=== PATIENT | female | born 1970 | race African-American/Black ===

== ENCOUNTER 2016-09-06 20:22 | Inpatient (IN) | payer MEDICAID ==
[~2016-09-06] VITALS: Ht 157.5 cm; Wt 68.0 kg
[~2016-09-06 20:22] MED LIST: ATOR1TAB18 PO; DILA100C PO; GABA300C5 PO; LANTUS2P SQ; LEVE500 PO; NOVOLOGP2 SQ; OMEP20TA PO; VALS1TAB65 PO
[2016-09-06 20:33] VITALS: BP 156/92; PULSE 90; RESP 16; O2SAT 98
[2016-09-06] MEDS ORDERED: SODIUM CHLORIDE 0.9% FLUSH 10 ML FLUSH IVF PRN (20:45)
--- NOTE | 2016-09-06 21:16 | RADRPT ---
EXAM DATE/TIME: 09/06/2016 21:07 [facility] COMPARISON: CHEST SINGLE AP, January 22, 2016, 12:47. INDICATIONS : Syncopal episode today. MEDICAL HISTORY : Hypertension. Seizures. SURGICAL HISTORY : Hysterectomy. ENCOUNTER: Initial ACUITY: 1 day PAIN SCORE: Non-responsive. LOCATION: Bilateral chest FINDINGS: A single view of the chest demonstrates the lungs to be symmetrically aerated without evidence of mas s, infiltrate or effusion. The cardiomediastinal contours are unremarkable. Osseous structures are intact.CONCLUSION: No acute disease. Villa Calderon MD on September 06, 2016 at 21:14 Board Certified Radiologist. This report was verified electronically.
--- NOTE | 2016-09-06 21:56 | RADRPT ---
EXAM DATE/TIME: 09/06/2016 21:48 [facility] COMPARISON: CT BRAIN W/O CONTRAST, May 24, 2016, 11:35. INDICATIONS : Altered mental status. RADIATION DOSE: 36.93 CTDIvol (mGy) MEDICAL HISTORY : Cerebrovascular disease. Hypertension. Seizures.Renal failure SURGICAL HISTORY : Cholecystectomy. Hysterectomy. ENCOUNTER: Initial ACUITY: 1 day PAIN SCALE: 0/10 LOCATION: cranial TECHNIQUE: Multiple contiguous axial images were obtained of the head. Using automated exposure control and adj ustment of the mA and/or kV according to patient size, radiation dose was kept as low as reasonably a chievable to obtain optimal diagnostic quality images. FINDINGS: CEREBRUM: The ventricles are normal for age. No evidence of midline shift, mass lesion, hemorrhage or acute in farction. No extra-axial fluid collections are seen. POSTERIOR FOSSA: The cerebellum and brainstem are intact. The 4th ventricle is midline. The cerebellopontine angle i s unremarkable. EXTRACRANIAL: The visualized portion of the orbits is intact. SKULL: The calvaria is intact. No evidence of skull fracture. CONCLUSION: No acute disease. Villa Calderon MD on September 06, 2016 at 21:53 Board Certified Radiologist. This report was verified electronically.
--- NOTE | 2016-09-06 22:10 | PD ---
HPI Chief Complaint: Diabetic Time Seen by Provider: 20:41 Travel History International Travel<30 days: No Contact w/Intl Traveler<30days: No Traveled to known affect area: No History of Present Illness HPI Patient is a 46-year-old female brought in by EMS after possible syncopal episode. Per EMS she had used the bathroom and then her family saw her lower herself to the ground. When the fire department arrived, her glucose was 16. She was given D50 through an IO. EMS then gave her D10. She has been here before for similar episodes. She is a poor historian and cannot provide much history. She says she ate breakfast today and nothing else. She does take Lantus and regular insulin. She says she did not have a seizure. She is not able to tell me if she is taking her other medications. She is only complaining of feeling cold. PFSH Past Medical History Arthritis: Yes Asthma: Yes Autoimmune Disease: Yes (LUPUS) Blood Disorders: Yes Anxiety: No Depression: No Cancer: No Cardiovascular Problems: Yes High Cholesterol: Yes Congestive Heart Failure: No Cerebrovascular Accident: Yes (MAY 2013) Diabetes: Yes Patient Takes Glucophage: Yes Diminished Hearing: No Endocrine: Yes Gastrointestinal Disorders: Yes Genitourinary: Yes Hypertension: Yes Immune Disorder: Yes Kidney Stones: Yes Musculoskeletal: Yes Neurologic: Yes Psychiatric: No Reproductive: No Respiratory: No Renal Failure: Yes (Stage II) Seizures: Yes Sickle Cell Disease: No Thyroid Disease: No Tetanus Vaccination: < 5 Years Influenza Vaccination: Yes ?: Unknown : 1 Para: 1 Past Surgical History Abdominal Surgery: Yes Cardiac Surgery: No Section: Yes Cholecystectomy: Yes Ear Surgery: No Endocrine Surgery: No Eye Surgery: No Genitourinary Surgery: No Gynecologic Surgery: Yes ( ) Hysterectomy: Yes Oral Surgery: No Thoracic Surgery: No Other Surgery: Yes (LEFT FOOT WOUND MECHANICAL DEBRIDEMENT) Social History Alcohol Use: Yes (OCCASIONAL/HOLIDAYS) Tobacco Use: No Substance Use: No Allergies-Medications (Allergen,Severity, Reaction): Coded Allergies: Aspirin (Verified Allergy, Severe, 09/06/16) RASH Keflex (Verified Allergy, Severe, foaming mouth, 09/06/16) Levemir (Verified Allergy, Severe, Sweats, funny feeling, mood swings, daze, 09/06/16) Penicillin (Verified Allergy, Severe, 09/06/16) Sulfa (Verified Allergy, Severe, 09/06/16) RASH Adhesives (Verified Allergy, Unknown, 09/06/16) Macrobid (Unverified Allergy, Unknown, 09/06/16) *MDRO Multi-Drug Resistant Organism (Unverified Adverse Reaction, Unknown , 09/06/16) MRSA 2013 MRSA PCR Screen negative 03/06/15, but POSITIVE on 01/22/16 Reported Meds & Prescriptions Reported Meds & Active Scripts Active Keppra (Levetiracetam) 500 Mg Tab 1,250 Mg PO Q12HR 30 Days Dilantin (Phenytoin Extended) 100 Mg Cap 100 Mg PO TID Reported Atorvastatin (Atorvastatin Calcium) 80 Mg Tab 80 Mg PO DAILY Gabapentin 300 Mg Cap 300 Mg PO BID Novolog Inj (Insulin Aspart) 1,000 Unit/10 Ml Vial Unknown Dose SQ ACHS03 SLIDE SCALE Lantus Inj (Insulin Glargine) 1,000 Unit/10 Ml Vial Unknown Dose SQ DAILY Valsartan 160 Mg Tab 160 Mg PO DAILY Omeprazole 20 Mg Tab 20 Mg PO DAILY Review of Systems ROS Limitations: Altered Mental Status General / Constitutional: Positive: Chills Physical Exam Narrative GENERAL: Awake and alert, but confused. SKIN: Focused skin assessment warm/dry. HEAD: Atraumatic. Normocephalic. EYES: Pupils equal and round. No scleral icterus. Extraocular movements intact. ENT: No nasal bleeding or discharge. Mucous membranes pink and moist. NECK: Trachea midline. No JVD. CARDIOVASCULAR: Regular rate and rhythm. No murmur appreciated. RESPIRATORY: No accessory muscle use. Clear to auscultation. Breath sounds equal bilaterally. GASTROINTESTINAL: Abdomen soft, non-tender, nondistended. MUSCULOSKELETAL: No obvious deformities. No clubbing. No cyanosis. No edema. NEUROLOGICAL: Awake and alert, but seems confused. She knows who she is and where she is. No obvious cranial nerve deficits. Motor grossly within normal limits. Normal speech. Data Data Last Documented VS Vital Signs Date Time Temp Pulse Resp B/P Pulse Ox O2 Delivery O2 Flow Rate FiO2 09/07/16 01:47 95.5 81 18 123/84 97 Room Air Orders Electrocardiogram (09/06/16 20:43) Complete Blood Count With Diff (09/06/16 20:43) Comprehensive Metabolic Panel (09/06/16 20:43) Creatine Kinase (Cpk) (09/06/16 20:43) Prothrombin Time / Inr (Pt) (09/06/16 20:43) Act Partial Throm Time (Ptt) (09/06/16 20:43) Troponin I (09/06/16 20:43) Urinalysis - C+S If Indicated (09/06/16 20:43) Ua Includes Microscopic (09/06/16 20:43) Chest, Single Ap (09/06/16 20:43) Ct Brain W/O Iv Contrast(Rout) (09/06/16 20:43) Blood Glucose (09/06/16 20:43) Ecg Monitoring (09/06/16 20:43) Iv Access Insert/Monitor (09/06/16 20:43) Oximetry (09/06/16 20:43) Sodium Chloride 0.9% Flush (Ns Flush) (09/06/16 20:45) Phenytoin (Dilantin) (09/06/16 20:43) Urine Culture (09/06/16 21:35) CKMB (09/06/16 22:50) CKMB% (09/06/16 22:50) Phenytoin Inj (Dilantin Inj) (09/06/16 23:45) Bedside Glucose GERMÁN.AC&HS (09/07/16 00:39) Pantoprazole Inj (Protonix Inj) (09/07/16 00:45) Pantoprazole Inj (Protonix Inj) (09/07/16 00:45) Levofloxacin 750 Mg Premix Inj (Levaquin (09/07/16 01:00) Warming Whately / Warming Syst PRN (09/07/16 00:56) Admit Order (Ed Use Only) (09/07/16 ) Labs Laboratory Tests Test 09/06/16 09/06/16 21:35 22:50 White Blood Count 2.9 TH/MM3 Red Blood Count 4.62 MIL/MM3 Hemoglobin 12.9 GM/DL Hematocrit 39.4 % Mean Corpuscular Volume 85.3 FL Mean Corpuscular Hemoglobin 28.0 PG Mean Corpuscular Hemoglobin 32.8 % Concent Red Cell Distribution Width 14.1 % Platelet Count 113 TH/MM3 Mean Platelet Volume 11.0 FL Neutrophils (%) (Auto) 65.7 % Lymphocytes (%) (Auto) 29.4 % Monocytes (%) (Auto) 3.7 % Eosinophils (%) (Auto) 0.4 % Basophils (%) (Auto) 0.8 % Neutrophils # (Auto) 1.9 TH/MM3 Lymphocytes # (Auto) 0.9 TH/MM3 Monocytes # (Auto) 0.1 TH/MM3 Eosinophils # (Auto) 0.0 TH/MM3 Basophils # (Auto) 0.0 TH/MM3 CBC Comment DIFF FINAL Differential Comment Prothrombin Time 10.4 SEC Prothromb Time International 0.9 RATIO Ratio Activated Partial 24.6 SEC Thromboplast Time Urine Color LIGHT-YELLOW Urine Turbidity CLEAR Urine pH 6.5 Urine Specific [place] 1.006 Urine Protein 100 mg/dL Urine Glucose (UA) 300 mg/dL Urine Ketones NEG mg/dL Urine Occult Blood SMALL Urine Nitrite NEG Urine Bilirubin NEG Urine Urobilinogen LESS THAN 2.0 MG/DL Urine Leukocyte Esterase SMALL Urine RBC 2 /hpf Urine WBC 1 /hpf Urine Squamous Epithelial 4 /hpf Cells Urine Bacteria OCC /hpf Urine Hyaline Casts 1 /lpf Urine Mucus FEW /lpf Microscopic Urinalysis Comment CATH-CULTURE IND Sodium Level 145 MEQ/L Potassium Level 4.9 MEQ/L Chloride Level 112 MEQ/L Carbon Dioxide Level 24.4 MEQ/L Anion Gap 9 MEQ/L Blood Urea Nitrogen 32 MG/DL Creatinine 1.53 MG/DL Estimat Glomerular Filtration 44 ML/MIN Rate Random Glucose 154 MG/DL Calcium Level 8.6 MG/DL Total Bilirubin 0.3 MG/DL Aspartate Amino Transf 42 U/L (AST/SGOT) Alanine Aminotransferase 37 U/L (ALT/SGPT) Alkaline Phosphatase 204 U/L Total Creatine Kinase 462 U/L Creatine Kinase MB 9.5 NG/ML Creatine Kinase MB % 2.1 % Troponin I 0.04 NG/ML Total Protein 6.8 GM/DL Albumin 3.1 GM/DL Phenytoin (Dilantin) Level 4.1 MCG/ML [facility] Medical Decision Making Medical Screen Exam Complete: Yes Emergency Medical Condition: Yes Medical Record Reviewed: Yes Interpretation(s) ECG shows normal sinus rhythm at 80, no ST elevation or depression, normal intervals Differential Diagnosis Sepsis versus isolated abnormalities versus seizure versus ACS Narrative Course Patient is a 46-year-old female who comes in after syncopal episode today. She was found have a glucose of 16 by fire. She was given dextrose prior to arrival , and her sugar improved. She still little altered on arrival. IV established , labs sent. Patient found to have a core temperature of 94. Placed under a bear hugger. Patient when she is more awake, says that she has been having bloody bowel movements. Exam does show blood-streaked stool. Patient started on Protonix. Given a dose of Levaquin. Urinalysis shows possible UTI. Patient admitted for further management. [facility] Point of Care Internal Pos. & Neg. Controls: Passed Fecal Specimen Occult Blood: Positive Diagnosis Primary Impression: Hypoglycemia Additional Impressions: GI bleed Qualified Code: K92.2 - Gastrointestinal hemorrhage, unspecified gastrointestinal hemorrhage type Hypothermia Qualified Code: T68.XXXA - Hypothermia, initial encounter Admitting Information Admitting Physician Requests: it Isidra Leal MD Sep 06, 2016 22:10
[2016-09-06 22:20] LABS: BACTERIA, URINE OCC /hpf; BLOOD, URINE SMALL (NEG); GLUCOSE,URINE 300 mg/dL (NEG); HYALINE CAST, URINE 1 /lpf (RARE); KETONE, URINE NEG (NEG); MUCUS URINE FEW /lpf (OCC); NITRITE,URINE NEG (NEG); PH, URINE 6.5 (5.0-8.5); SQUAMOUS EPITHELIAL CELL URINE 4 /hpf (0-5); URINE COLOR LIGHT-YELLOW (YELLW/STRAW)
[2016-09-06 22:21] LABS: COMMENT (UR) CATH-CULTURE IND; CULTURE IF INDICATED CATH CULTURE IND
[2016-09-06 22:22] LABS: AUTOMATED NEUTROPHIL # 1.9 TH/MM3 (1.8-7.7); BASOPHIL % 0.8 % (0.0-2.0); EOSINOPHIL % 0.4 % (0.0-4.0); HEMATOCRIT 39.4 % (35.0-46.0); HEMO FLAGS DIFF FINAL; LYMPH % 29.4 % (9.0-44.0); LYMPHOCYTE # 0.9 TH/MM3 (1.0-4.8); MEAN CELL VOLUME 85.3 FL (80.0-100.0); MEAN CORPUSCULAR HGB CONC 32.8 % (32.0-36.0); MONO % 3.7 % (0.0-8.0); NEUT % 65.7 % (16.0-70.0); PLATELET COUNT 113 TH/MM3 (150-450); RED BLOOD COUNT 4.62 MIL/MM3 (4.00-5.30); RED CELL DISTRIBUTION WIDTH 14.1 % (11.6-17.2); WHITE BLOOD COUNT 2.9 TH/MM3 (4.0-11.0)
[2016-09-06 22:50] LABS: APTT (PATIENT) 24.6 SEC (24.3-30.1); INTERNATIONAL NORMALIZED RATIO 0.9 RATIO; PROTHROMBIN TIME - PATIENT 10.4 SEC (9.8-11.6)
[2016-09-06 23:34] LABS: ALKALINE PHOSPHATASE 204 U/L (45-117); ALT (GPT) 37 U/L (10-53); ANION GAP 9 MEQ/L (5-15); AST (GOT) 42 U/L (15-37); BICARBONATE 24.4 MEQ/L (21.0-32.0); BLOOD UREA NITROGEN 32 MG/DL (7-18); CHLORIDE 112 MEQ/L (98-107); CREATINE KINASE 462 U/L (26-192); GLOMERULAR FILTRATION RATE 44 ML/MIN (>89); SODIUM (NA) 145 MEQ/L (136-145); TOTAL BILIRUBIN ADULT 0.3 MG/DL (0.2-1.0)
[2016-09-06 23:35] LABS: POTASSIUM 4.9 MEQ/L (3.5-5.1)
[2016-09-06] MEDS ORDERED: PHENYTOIN INJ 1,000 MG in SODIUM CHLORIDE 0.9% INJ 100 ML IV ONE (23:45)
[2016-09-06 23:48] LABS: CKMB 9.5 NG/ML (0.5-3.6)
[2016-09-07] VITALS (18 sets, daily range): BP systolic 97–144; BP diastolic 52–84; PULSE 70–100; RESP 14–18; TEMP 94–98.6; O2SAT 91–100
[2016-09-07] MEDS ORDERED: PANTOPRAZOLE INJ 80 MG in SODIUM CHLORIDE 0.9% INJ 100 ML IV SCH (00:45)
[2016-09-07] MEDS ORDERED: PANTOPRAZOLE INJ 80 MG in SODIUM CHLORIDE 0.9% INJ 35 ML IV ONE (00:45)
[2016-09-07] MEDS ORDERED: LEVOFLOXACIN 750 MG PREMIX INJ 150 ML IV ONE (01:00)
[2016-09-07] MEDS: SODIUM CHLOR 0.9% 1000 ML INJ 1,000 ML IV SCH ×3 (02:52→13:51)
--- NOTE | 2016-09-07 02:56 | HHI.HP ---
HPI Service Critical Care Medicine Primary Care Physician Andrea Cardoso Admission Diagnosis Sepsis, hypothermia, AMS Diagnosis: Travel History International Travel<30 Days: No Contact w/Intl Traveler <30 Da: No Traveled to Known Affected Are: No History of Present Illness 46-year-old female brought in by EMS after possible syncopal episode. She had used the bathroom and then her family saw her lower herself to the ground. When the fire department arrived, her glucose was 16. She was given D50 through an IO. EMS then gave her D10. She has been here before for similar episodes in the polyps. She ate breakfast today and nothing else. She does take Lantus and regular insulin. She says she did not have a seizure. She is complaining of feeling cold. Review of Systems ROS Unable to obtain patient is lethargic Past Family Social History Allergies: Coded Allergies: Aspirin (Verified Allergy, Severe, 09/06/16) RASH Keflex (Verified Allergy, Severe, foaming mouth, 09/06/16) Levemir (Verified Allergy, Severe, Sweats, funny feeling, mood swings, daze, 09/06/16) Penicillin (Verified Allergy, Severe, 09/06/16) Sulfa (Verified Allergy, Severe, 09/06/16) RASH Adhesives (Verified Allergy, Unknown, 09/06/16) Macrobid (Unverified Allergy, Unknown, 09/06/16) *MDRO Multi-Drug Resistant Organism (Unverified Adverse Reaction, Unknown , 09/06/16) MRSA 2013 MRSA PCR Screen negative 03/06/15, but POSITIVE on 01/22/16 Past Medical History Seizure disorder Hypertension Diabetes CKD Systemic lupus Past Surgical History Foot surgery Reported Medications Reported Meds & Active Scripts Active Keppra (Levetiracetam) 500 Mg Tab 1,250 Mg PO Q12HR 30 Days Dilantin (Phenytoin Extended) 100 Mg Cap 100 Mg PO TID Reported Atorvastatin (Atorvastatin Calcium) 80 Mg Tab 80 Mg PO DAILY Gabapentin 300 Mg Cap 300 Mg PO BID Novolog Inj (Insulin Aspart) 1,000 Unit/10 Ml Vial Unknown Dose SQ ACHS03 SLIDE SCALE Lantus Inj (Insulin Glargine) 1,000 Unit/10 Ml Vial Unknown Dose SQ DAILY Valsartan 160 Mg Tab 160 Mg PO DAILY Omeprazole 20 Mg Tab 20 Mg PO DAILY Active Ordered Medications Current Medications Medications (Trade) Dose Ordered Sig/Marin Route PRN Reason Start Time Stop Time Status Last Admin Dose Admin Sodium Chloride (NS 1000 ml Inj) 1,000 ml @ 184 mls/hr Q5H27M IV 09/07/16 02:52 Sodium Chloride (NS Flush) 2 ml UNSCH PRN .XX FLUSH AFTER USING IV ACCESS 09/07/16 03:00 Sodium Chloride (NS Flush) 2 ml BID .XX 09/07/16 09:00 Acetaminophen (Tylenol) 650 mg Q6H PRN PO PAIN 1-5 AND/OR FEVER >101F 09/07/16 03:00 Morphine Sulfate (Morphine Inj) 2 mg Q2H PRN IV PAIN SCALE 6 TO 10 09/07/16 03:00 Ondansetron HCl (Zofran Inj) 4 mg Q6H PRN IV NAUSEA OR VOMITING 09/07/16 03:00 Metoclopramide HCl (Reglan Inj) 10 mg Q6H PRN IV NAUSEA OR VOMITING 09/07/16 03:00 Zolpidem Tartrate (Ambien) 5 mg HS PRN PO INSOMNIA 09/07/16 03:00 Miscellaneous Information 1 Q361D XX 09/07/16 03:00 Chlorhexidine Gluconate (Chlorhexidine 2% Cloth) 3 pack Taper DAILY@04 TOP 09/07/16 04:00 09/03/17 03:59 Chlorhexidine Gluconate (Chlorhexidine 2% Cloth) 3 pack UNSCH PRN TOP HYGIENIC CARE 09/07/16 03:00 Pantoprazole Sodium (Protonix Inj) 40 mg Q12H IV 09/07/16 14:00 Levetriacetam (Keppra) 1,250 mg Q12HR PO 09/07/16 09:00 Phenytoin (Dilantin) 100 mg TID PO 09/07/16 09:00 Dextrose (D50w (Vial) Inj) 25 ml UNSCH PRN IV PUSH HYPOGLYCEMIA-SEE COMMENTS 09/07/16 03:15 Glucagon 1 mg 1 mg UNSCH PRN OTHER HYPOGLYCEMIA-SEE COMMENTS 09/07/16 03:15 Vancomycin HCl 1000 mg/Sodium Chloride 250 ml @ 250 mls/hr ONCE ONCE IV 09/07/16 04:00 09/07/16 04:59 Aztreonam 2000 mg/ Sodium Chloride 100 ml @ 200 mls/hr Q8H IV 09/07/16 05:00 Metronidazole 100 ml @ 100 mls/hr Q8H IV 09/07/16 03:00 Pharmacy Profile Note (Vancomycin Consult Pharmacy) 0 ml @ 0 mls/hr UNSCH OTHER 09/07/16 03:15 Family History Noncontributory Social History Negative 3 Physical Exam Vital Signs Vital Signs Date Time Temp Pulse Resp B/P Pulse Ox O2 Delivery O2 Flow Rate FiO2 09/07/16 01:47 95.5 81 18 123/84 97 Room Air 09/07/16 00:45 94.0 09/07/16 00:45 94.5 09/07/16 00:23 85 123/84 98 Room Air 09/06/16 21:04 Room Air 09/06/16 20:36 78 16 100 Room Air 09/06/16 20:33 90 16 156/92 98 Physical Exam GENERAL: Well-nourished, well-developed lethargic patient. SKIN: Warm and dry now under a bear hugger HEAD: Normocephalic. EYES: No scleral icterus. No injection or drainage. NECK: Supple, trachea midline. No JVD or lymphadenopathy. CARDIOVASCULAR: Regular rate and rhythm without murmurs, gallops, or rubs. RESPIRATORY: Breath sounds equal bilaterally. No accessory muscle use. GASTROINTESTINAL: Abdomen soft, non-tender, nondistended. MUSCULOSKELETAL: No cyanosis, or edema. BACK: Nontender without obvious deformity. No CVA tenderness. EXTREMITIES: No clubbing cyanosis or edema Laboratory Laboratory Tests Test 09/06/16 09/06/16 21:35 22:50 White Blood Count 2.9 Red Blood Count 4.62 Hemoglobin 12.9 Hematocrit 39.4 Mean Corpuscular Volume 85.3 Mean Corpuscular Hemoglobin 28.0 Mean Corpuscular Hemoglobin 32.8 Concent Red Cell Distribution Width 14.1 Platelet Count 113 Mean Platelet Volume 11.0 Neutrophils (%) (Auto) 65.7 Lymphocytes (%) (Auto) 29.4 Monocytes (%) (Auto) 3.7 Eosinophils (%) (Auto) 0.4 Basophils (%) (Auto) 0.8 Neutrophils # (Auto) 1.9 Lymphocytes # (Auto) 0.9 Monocytes # (Auto) 0.1 Eosinophils # (Auto) 0.0 Basophils # (Auto) 0.0 CBC Comment DIFF FINAL Differential Comment Prothrombin Time 10.4 Prothromb Time International 0.9 Ratio Activated Partial 24.6 Thromboplast Time Urine Color LIGHT-YELLOW Urine Turbidity CLEAR Urine pH 6.5 Urine Specific [place] 1.006 Urine Protein 100 Urine Glucose (UA) 300 Urine Ketones NEG Urine Occult Blood SMALL Urine Nitrite NEG Urine Bilirubin NEG Urine Urobilinogen LESS THAN 2.0 Urine Leukocyte Esterase SMALL Urine RBC 2 Urine WBC 1 Urine Squamous Epithelial 4 Cells Urine Bacteria OCC Urine Hyaline Casts 1 Urine Mucus FEW Microscopic Urinalysis Comment CATH-CULTURE IND Sodium Level 145 Potassium Level 4.9 Chloride Level 112 Carbon Dioxide Level 24.4 Anion Gap 9 Blood Urea Nitrogen 32 Creatinine 1.53 Estimat Glomerular Filtration 44 Rate Random Glucose 154 Calcium Level 8.6 Total Bilirubin 0.3 Aspartate Amino Transf 42 (AST/SGOT) Alanine Aminotransferase 37 (ALT/SGPT) Alkaline Phosphatase 204 Total Creatine Kinase 462 Creatine Kinase MB 9.5 Creatine Kinase MB % 2.1 Troponin I 0.04 Total Protein 6.8 Albumin 3.1 Phenytoin (Dilantin) Level 4.1 Date/Time Procedure Status Source Growth 09/06/16 21:35 Urine Culture Received Urine Catheterized Urine Pending Result Diagram: 09/06/16213409/06/16 2250 Imaging Last [address] 09/06/162042 Signed Impressions: Service Date/Time: Tuesday, September 06, 2016 21:48 - CONCLUSION: No acute disease. Villa Calderon MD Chest X-Ray 09/06/162042 Signed Impressions: Service Date/Time: Tuesday, September 06, 2016 21:07 - CONCLUSION: No acute disease. Villa Calderon MD Assessment and Plan Problem List: (1) CKD (chronic kidney disease), stage III ICD Code: N18.3 Status: Acute (2) DM (diabetes mellitus) type I uncontrolled with renal manifestation ICD Code: E10.29 Status: Acute (3) Acute encephalopathy ICD Code: G93.40 Status: Acute (4) Seizure disorder ICD Code: G40.909 Status: Acute Assessment and Plan Altered mental status - Severe hypoglycemia - Most likely due to overmedicated - We'll hold insulin - D50 as needed Possible sepsis - Severe leukopenia hypoglycemia and hypothermia - Panculture - Broad-spectrum antibiotics - ID consult - Serum TSH and cortisol level Melanotic stool - GI consult - Protonix IV twice a day - Nothing by mouth for now Seizure disorder - Resume home meds - Keppra and phenytoin Diabetes - Hold insulin due to hypoglycemia - Insulin sliding scale - D50 when necessary DVT GI prophylaxis - Teds SCDs - No pharmacal prophylaxis due to melena - Protonix twice a day Critical Care: The total critical care time was 35 minutes. Time to perform other separately billable procedures was not included in the critical care time. Aramis Kruse MD Sep 07, 2016 02:56
[2016-09-07] MEDS ORDERED: CHLORHEXIDINE GLUCONATE 2 % 1 PACK (2 CLOTHS) TOP PRN (03:00)
[2016-09-07] MEDS ORDERED: MORPHINE SULFATE 4 MG/ML INJ IV PRN (03:00)
[2016-09-07] MEDS ORDERED: ONDANSETRON HCL 4 MG/2 ML VIAL IV PRN (03:00)
[2016-09-07] MEDS ORDERED: METOCLOPRAMIDE HCL 10 MG/2 ML VIAL IV PRN (03:00)
[2016-09-07] MEDS ORDERED: MISCELLANEOUS NURSING INFORMATION XX SCH (03:00)
[2016-09-07] MEDS ORDERED: PANTOPRAZOLE SODIUM 40 MG VIAL IV SCH ×2 (03:00→14:00)
[2016-09-07] MEDS ORDERED: SODIUM CHLORIDE 0.9% FLUSH 10 ML FLUSH PRN (03:00)
[2016-09-07] MEDS ORDERED: ACETAMINOPHEN 325 MG TAB PO PRN (03:00)
[2016-09-07] MEDS ORDERED: RESP: ALBUTEROL 2.5 MG/IPRATROPIUM 0.5 MG NEB (PRN) INH (03:00)
[2016-09-07] MEDS ORDERED: ZOLPIDEM TARTRATE 5 MG TAB PO PRN (03:00)
[2016-09-07] MEDS ORDERED: DEXTROSE 50% IN WATER 50 ML VIAL(D50) IV PUSH PRN (03:15)
[2016-09-07] MEDS ORDERED: Vancomycin Consult Pharmacy 1 EA OTHER SCH (03:15)
[2016-09-07] MEDS ORDERED: GLUCAGON 1 MG/ML VIAL OTHER PRN ×2 (03:15→10:30)
[2016-09-07] MEDS: CHLORHEXIDINE GLUCONATE 2 % 1 PACK (2 CLOTHS) TOP SCH (04:00)
[2016-09-07] MEDS ORDERED: VANCOMYCIN INJ 1,000 MG in SODIUM CHLOR 0.9% 250 ML INJ 250 ML IV ONE (04:00)
[2016-09-07] MEDS: metroNIDAZOLE 500 MG INJ 100 ML IV SCH ×3 (05:21→18:12)
[2016-09-07] MEDS: AZTREONAM INJ 2,000 MG in SODIUM CHLORIDE 0.9% INJ 100 ML IV SCH ×3 (05:22→22:00)
[2016-09-07 05:42] LABS: HEMATOCRIT 30.7 % (35.0-46.0); REVIEW FLAG FINAL
[2016-09-07] MEDS ORDERED: INSULIN ASPART SUPPLEMENTAL SCALE SQ SCH (07:00)
[2016-09-07] MEDS: PHENYTOIN SODIUM 100 MG CAP PO SCH ×3 (08:24→18:10)
[2016-09-07] MEDS: levETIRAcetam 500 MG TAB PO SCH ×2 (08:24→22:01)
[2016-09-07] MEDS: SODIUM CHLORIDE 0.9% FLUSH 10 ML FLUSH SCH ×2 (08:25→21:00)
--- NOTE | 2016-09-07 08:56 | PD.CONS ---
HPI History of Present Illness This is a 46 year old female who was brought to the emergency room after possible syncopal episode. When EMS arrived, she was noted to have a glucose of 16 and was subsequently given D50 during IV. She was noted to have anemia and the emergency room and her cnwsam-my-cnc reported that she's had melena. The patient is a poor historian, but states that she was brought in because her blood sugar was very low. She has not seen any obvious blood loss such as melena or hematochezia. She reports that her inleuq-jz-zoy reported the melena , but has not actually seen her stool. The patient reports that she used to have significant heartburn and reflux. She was hospitalized in September 2015 at [facility] and was evaluated with an EGD on 09/15/[address] Meade and this revealed esophagitis seen in the distal third of the esophagus and middle third of the esophagus, a hiatal hernia was found in the stomach, non-erosive gastritis was found in the antrum and the body of the stomach, normal symmetrical and patent pylorus, and normal duodenum. She was started on a PPI and Carafate and repeat EGD was recommended for 2 months. The patient reports that she did not follow-up with Dr. Meade. She does report a long history of anemia and states that she's had several hospitalizations for anemia which she required blood transfusions. She has never been evaluated with a colonoscopy. She has generalized weakness that is chronic. She denies any nausea or vomiting. She no longer has heartburn since starting a PPI. She did have some mild mid abdominal pain that she described as a sharp discomfort yesterday while in the ER, but states this is resolved after she was given medication and she has not had any further episodes. She denies any bowel changes, specifically no melena or hematochezia. There is no family hx of e esophageal, gastric, colorectal cancer. (Doris Osman) PFSH Past Medical History Seizure disorder Hypertension Diabetes Chronic kidney disease Lupus Chronic anemia Esophagitis/gastritis Hiatal hernia Past Surgical History EGD . Surgery (Doris Osman) Coded Allergies: Aspirin (Verified Allergy, Severe, 09/06/16) RASH Keflex (Verified Allergy, Severe, foaming mouth, 09/06/16) Levemir (Verified Allergy, Severe, Sweats, funny feeling, mood swings, daze, 09/06/16) Penicillin (Verified Allergy, Severe, 09/06/16) Sulfa (Verified Allergy, Severe, 09/06/16) RASH Adhesives (Verified Allergy, Unknown, 09/06/16) Macrobid (Unverified Allergy, Unknown, 09/06/16) *MDRO Multi-Drug Resistant Organism (Unverified Adverse Reaction, Unknown , 09/06/16) MRSA 2013 MRSA PCR Screen negative 03/06/15, but POSITIVE on 01/22/16 Medications Allergies Coded Allergies Type Severity Reaction Last Updated Verified Aspirin Allergy Severe 09/06/16 Yes Keflex Allergy Severe foaming mouth 09/06/16 Yes Levemir Allergy Severe Sweats, funny feeling, mood swings, daze 09/06/16 Yes Penicillin Allergy Severe 09/06/16 Yes Sulfa Allergy Severe 09/06/16 Yes Adhesives Allergy Unknown 09/06/16 Yes Macrobid Allergy Unknown 09/06/16 No *MDRO Multi-Drug Resistant Organism Adverse Reaction Unknown 09/06/16 No Active Scripts Medications Dose Route/Sig Days Date Category Keppra (Levetiracetam) 500 Mg Tab 1,250 Mg PO Q12HR 30 05/27/16 Rx Dilantin (Phenytoin Extended) 100 Mg Cap 100 Mg PO TID 05/27/16 Rx Atorvastatin (Atorvastatin Calcium) 80 Mg Tab 80 Mg PO DAILY 05/24/16 Reported Gabapentin 300 Mg Cap 300 Mg PO BID 05/24/16 Reported Novolog Inj (Insulin Aspart) 1,000 Unit/10 Ml Vial Unknown Dose SQ [id number] SLIDE SCALE 05/24/16 Reported Lantus Inj (Insulin Glargine) 1,000 Unit/10 Ml Vial Unknown Dose SQ DAILY 05/24/16 Reported Valsartan 160 Mg Tab 160 Mg PO DAILY 05/24/16 Reported Omeprazole 20 Mg Tab 20 Mg PO DAILY 05/24/16 Reported Family History Reports her father is 80 years old and alive and well. She denies any family history of esophageal, gastric, colorectal cancer Social History She does not smoke, drink alcohol, or use NSAIDs (Doris Osman) Review of Systems Constitutional: COMPLAINS OF: Fatigue, DENIES: Weight loss, Change in appetite Respiratory: DENIES: Cough Cardiovascular: DENIES: Chest pain Gastrointestinal: COMPLAINS OF: Abdominal pain, Heartburn, DENIES: Black stools, Bloody stools, Constipation, Diarrhea, Nausea, Vomiting, Hematemesis Integumentary: DENIES: Abnormal pigmentation Hematologic/lymphatic: DENIES: Bruising Neurologic: DENIES: Headache Psychiatric: DENIES: Confusion (Doris Osman) GI Exam Vitals I&O Vital Signs Date Time Temp Pulse Resp B/P Pulse Ox O2 Delivery O2 Flow Rate FiO2 09/07/16 06:00 89 09/07/16 04:40 98.2 100 16 130/72 99 09/07/16 04:18 98.5 88 16 98 09/07/16 03:37 98.5 90 16 97/52 100 Room Air 09/07/16 01:47 95.5 81 18 123/84 97 Room Air 09/07/16 00:45 94.0 09/07/16 00:45 94.5 09/07/16 00:23 85 123/84 98 Room Air 09/06/16 21:04 Room Air 09/06/16 20:36 78 16 100 Room Air 09/06/16 20:33 90 16 156/92 98 I/O 09/06/16 09/06/16 09/06/16 09/07/16 09/07/16 09/07/16 07:00 15:00 23:00 07:00 15:00 23:00 Intake Total 312 ml Balance 312 ml Intake Oral 0 ml IV Total 312 ml # Voids 0 # Bowel Movements 0 Imaging Last Impressions Head CT [id number]/06/[id number] Signed Impressions: Service Date/Time: Tuesday, September 06, 2016 21:48 - CONCLUSION: No acute disease. Villa Calderon MD Chest X-Ray [id number]/06/[id number] Signed Impressions: Service Date/Time: Tuesday, September 06, 2016 21:07 - CONCLUSION: No acute disease. Villa Calderon MD Laboratory Test 09/06/16 09/06/16 09/07/16 21:35 22:50 05:05 White Blood Count 2.9 TH/MM3 Red Blood Count 4.62 MIL/MM3 Hemoglobin 12.9 GM/DL 10.3 GM/DL Hematocrit 39.4 % 30.7 % Mean Corpuscular Volume 85.3 FL Mean Corpuscular Hemoglobin 28.0 PG Mean Corpuscular Hemoglobin 32.8 % Concent Red Cell Distribution Width 14.1 % Platelet Count 113 TH/MM3 Mean Platelet Volume 11.0 FL Neutrophils (%) (Auto) 65.7 % Lymphocytes (%) (Auto) 29.4 % Monocytes (%) (Auto) 3.7 % Eosinophils (%) (Auto) 0.4 % Basophils (%) (Auto) 0.8 % Neutrophils # (Auto) 1.9 TH/MM3 Lymphocytes # (Auto) 0.9 TH/MM3 Monocytes # (Auto) 0.1 TH/MM3 Eosinophils # (Auto) 0.0 TH/MM3 Basophils # (Auto) 0.0 TH/MM3 CBC Comment DIFF FINAL Differential Comment Prothrombin Time 10.4 SEC Prothromb Time International 0.9 RATIO Ratio Activated Partial 24.6 SEC Thromboplast Time Urine Color LIGHT-YELLOW Urine Turbidity CLEAR Urine pH 6.5 Urine Specific [place] 1.006 Urine Protein 100 mg/dL Urine Glucose (UA) 300 mg/dL Urine Ketones NEG mg/dL Urine Occult Blood SMALL Urine Nitrite NEG Urine Bilirubin NEG Urine Urobilinogen LESS THAN 2.0 MG/DL Urine Leukocyte Esterase SMALL Urine RBC 2 /hpf Urine WBC 1 /hpf Urine Squamous Epithelial 4 /hpf Cells Urine Bacteria OCC /hpf Urine Hyaline Casts 1 /lpf Urine Mucus FEW /lpf Microscopic Urinalysis Comment CATH-CULTURE IND Sodium Level 145 MEQ/L Potassium Level 4.9 MEQ/L Chloride Level 112 MEQ/L Carbon Dioxide Level 24.4 MEQ/L Anion Gap 9 MEQ/L Blood Urea Nitrogen 32 MG/DL Creatinine 1.53 MG/DL Estimat Glomerular Filtration 44 ML/MIN Rate Random Glucose 154 MG/DL Calcium Level 8.6 MG/DL Total Bilirubin 0.3 MG/DL Direct Bilirubin 0.1 MG/DL Aspartate Amino Transf 42 U/L (AST/SGOT) Alanine Aminotransferase 37 U/L (ALT/SGPT) Alkaline Phosphatase 204 U/L Total Creatine Kinase 462 U/L Creatine Kinase MB 9.5 NG/ML Creatine Kinase MB % 2.1 % Troponin I 0.04 NG/ML Total Protein 6.8 GM/DL Albumin 3.1 GM/DL Phenytoin (Dilantin) Level 4.1 MCG/ML Lactic Acid Level 1.0 mmol/L Thyroid Stimulating Hormone 0.668 uIU/ML 3rd Gen Random Cortisol 26.7 MCG/DL Date/Time Procedure Status Source Growth 09/06/16 21:35 Urine Culture Worksheet Urine Catheterized Urine Pending Physical Examination HEENT: Normocephalic; atraumatic; no jaundice. CHEST: CTA CARDIAC: RRR. ABDOMEN: Soft, nondistended, nontender; no hepatosplenomegaly; bowel sounds are present in all four quadrants. EXTREMITIES: No clubbing, cyanosis, or edema. SKIN: Normal; no rash; no jaundice. SAMPLER RADIOACTIVE WASTE: No focal deficits; Lethargy, times three. (Doris Osman) Assessment and Plan Plan ASSESSMENT: - GIB, Blood streaked stool on exam; questionable melena. Pt has a hx of esophagitis, gastritis, and chronic anemia. She states that her sister in law told the ER that she was having melena, but she has not seen any dark stool or blood in her stool. She denies any GI symptoms at this time. However, according to the ER note, she was noted to have blood streaked stool on exam. Last EGD (09/15/15) by Dr. Meade and this revealed esophagitis seen in the distal third of the esophagus and middle third of the esophagus, a hiatal hernia was found in the stomach, non-erosive gastritis was found in the antrum and the body of the stomach, normal symmetrical and patent pylorus, and normal duodenum. She was started on a PPI and Carafate and repeat EGD was recommended for 2 months. The patient reports that she did not follow-up with Dr. Meade. She has never had a colonoscopy. HH 10.3/30.7. - Anemia. Pt reports that she has chronic anemia and has had several hospitalizations requiring blood transfusions. - Syncopal episode. Pt was found to be hypoglycemic on admission. Now glucose 154. - Chronic kidney disease, Lupus, HTN, DM per primary PLAN: - Plan for egd/colonoscopy in am - Obtain consents - Clear liquids - NPO after MN - Golytely prep - PPI - Monitor HH - Transfuse as necessary - Supportive care - Further recommendations to follow based on results of above - Pt seen and examined by Dr. Otero and myself and this note is written on his behalf (Doris Osman) Physician Comments Patient seen and examined Agree with above Continue with current supportive care Monitor labs EGD and colonoscopy Tomorrow (Sree Otero MD) Doris Osman Sep 07, 2016 08:56 Sree Otero MD Sep 07, 2016 21:53
[2016-09-07] MEDS ORDERED: PEG (High)/E-LYTE SOLN 4000 ML BTL PO ONE (09:00)
[2016-09-07] MEDS: PANTOPRAZOLE SODIUM 40 MG VIAL IV PUSH SCH ×2 (09:00→22:00)
[2016-09-07] MEDS ORDERED: INSULIN NovoLIN REGULAR SUPPLEMENTAL SCALE SQ SCH (10:30)
[2016-09-07] MEDS: INSULIN NovoLIN REGULAR SUPPLEMENTAL SCALE SQ SCH ×4 (11:00→23:00)
[2016-09-07 12:31] LABS: AUTOMATED NEUTROPHIL # 4.5 TH/MM3 (1.8-7.7); BASOPHIL % 0.4 % (0.0-2.0); EOSINOPHIL % 0.7 % (0.0-4.0); HEMATOCRIT 31.5 % (35.0-46.0); HEMO FLAGS DIFF FINAL; LYMPH % 13.8 % (9.0-44.0); LYMPHOCYTE # 0.8 TH/MM3 (1.0-4.8); MEAN CELL VOLUME 85.9 FL (80.0-100.0); MEAN CORPUSCULAR HEMOGLOBIN 27.4 PG (27.0-34.0); MEAN CORPUSCULAR HGB CONC 31.9 % (32.0-36.0); MONO % 6.5 % (0.0-8.0); NEUT % 78.6 % (16.0-70.0); PLATELET COUNT 108 TH/MM3 (150-450); RED BLOOD COUNT 3.67 MIL/MM3 (4.00-5.30); RED CELL DISTRIBUTION WIDTH 13.7 % (11.6-17.2); WHITE BLOOD COUNT 5.7 TH/MM3 (4.0-11.0)
[2016-09-07 12:47] LABS: ALKALINE PHOSPHATASE 179 U/L (45-117); ALT (GPT) 28 U/L (10-53); ANION GAP 8 MEQ/L (5-15); AST (GOT) 21 U/L (15-37); BLOOD UREA NITROGEN 38 MG/DL (7-18); CHLORIDE 111 MEQ/L (98-107); GLOMERULAR FILTRATION RATE 30 ML/MIN (>89); MAGNESIUM 2.3 MG/DL (1.5-2.5); POTASSIUM 5.1 MEQ/L (3.5-5.1); SODIUM (NA) 144 MEQ/L (136-145); TOTAL BILIRUBIN ADULT 0.3 MG/DL (0.2-1.0)
--- NOTE | 2016-09-07 14:23 | MB ---
cc: ANGY GONZALEZ MD DATE OF CONSULTATION: 09/07/[address] Kruse REASON FOR CONSULTATION Sepsis, unclear source. HISTORY OF PRESENT ILLNESS This is a 46-year-old black female who was brought to the emergency department from home with altered mental status. The patient was noted to have a blood glucose of 16. The patient states she "went down at home." She went down onto her knees but she states that she did not have a seizure. She has a couple bruises at the knees. She tells me that she was feeling well yesterday morning and ate her breakfast and did not eat anything after that. She reports to me that she was feeling fine prior and did not have any symptoms of illness and she had gone about her usual activities on the day prior. The patient was noted to have a temperature of 94.5 on presentation. Her white blood cell count was 2.9. Urinalysis revealed one white cell and a small amount of leukocyte esterase. She denies dysuria or back pain. Blood culture has been sent. Urine culture is pending. Her platelet count is also low at 113. She has no current complaints. PAST MEDICAL HISTORY 1. Systemic lupus erythematosus. 2. Seizure disorder. 3. Hypertension. 4. Diabetes. 5. Chronic kidney disease. 6. History of foot surgery. 7. History of MRSA foot infection of the left foot in 2013 and history of left foot debridement. ALLERGIES 1. KEFLEX. 2. SULFA. 3. PENICILLIN. 4. MACROBID. 5. ASPIRIN. 6. LEVEMIR. 7. ADHESIVES. MEDICATIONS 1. Dilantin. 2. Protonix. 3. Aztreonam. 4. Vancomycin one gram IV was given earlier today. 5. Morphine sulfate p.r.n. 6. Levaquin dose was given earlier today. SOCIAL HISTORY No tobacco. Occasional alcohol. No illicit drugs. The patient lives with her son who is [id number]. FAMILY HISTORY Noncontributory. REVIEW OF SYSTEMS Negative on 10-point review. PHYSICAL EXAMINATION GENERAL: This is a slender female who is in no acute distress. She is awake, alert and oriented. VITAL SIGNS: Temperature 98.2, blood pressure 102/57, heart rate 91, respirations 16. HEENT: The head is atraumatic. Extraocular movements grossly intact. Pupils reactive to light. No icterus. Oropharynx moist mucosa without lesions. NECK: Supple. No adenopathy. LUNGS: Decreased clear breath sounds. HEART: Regular rate and rhythm. No murmurs, rubs or gallops. ABDOMEN: Bowel sounds present. Soft. No tenderness appreciated. RECTAL: Not performed. EXTREMITIES: Muscle wasting at the hands. Bruises are visible at both knees but have no erythema. No clubbing, cyanosis or edema. SKIN: No rash. NEUROLOGIC: Grossly nonfocal. The patient is alert and oriented. PSYCHIATRIC: The patient is calm and cooperative. LABORATORY WBC 5.7, platelet count 108, hemoglobin 10.1, 78% neutrophils. Creatinine 2.14, BUN 38, sodium 144, AST 21, ALT 28, alkaline phosphatase 179. IMPRESSION 1. Probable sepsis in patient with altered mental status and hypothermia, in addition to leukopenia. Probable urine source. 2. Chronic kidney disease. 3. Hypoglycemia. 4. Possible syncopal episode. RECOMMENDATIONS 1. Continue aztreonam. 2. Monitor blood cultures. 3. Monitor white blood cell count. 4. Monitor clinical status. 5. Monitor urine culture. Thank you for the consultation. The patient's progress will be monitored and further recommendations will be given on follow-up if necessary. Angy Gonzalez MD FD/MELY /12:55 PM /2:08 PM [place]
--- NOTE | 2016-09-07 15:56 | RADRPT ---
EXAM DATE/TIME: 09/07/2016 14:22 [place] COMPARISON: CT ABDOMEN & PELVIS W/O CONTRAST, August 24, 2013, 9:43. US KIDNEY/RENAL/BLADDER, July 19, 2013, 17:22. INDICATIONS : Acute renal failure. MEDICAL HISTORY : Hypercholesterolemia. Lupus. CVA. Kidney stones. SURGICAL HISTORY : Hysterectomy. section. Cholecystectomy. ENCOUNTER: Initial ACUITY: 1 day PAIN SCORE: 0/10 LOCATION: Bilateral flank MEASUREMENTS: RIGHT KIDNEY: 8.4 x 5.3 x 5.4 cm LEFT KIDNEY: 8.9 x 5.8 x 4.8 cm FINDINGS: RIGHT KIDNEY: There is cortical thinning and the kidney is diffusely echogenic. No mass or hydronephrosis. LEFT KIDNEY: There is cortical thinning and the kidney is diffusely echogenic. No mass or hydronephrosis. BLADDER: Within normal limits given the degree of distension. CONCLUSION: Diffuse echogenicity to the kidneys consistent with underlying medical renal disease. No obstruction observed. Jason Machuca Jr., MD on September 07, 2016 at 15:51 Board Certified Radiologist. This report was verified electronically.
[2016-09-07] MEDS: DEXTROSE 50% IN WATER 50 ML VIAL(D50) IV PUSH PRN ×2 (21:12→22:01)
[2016-09-08] VITALS (10 sets, daily range): BP systolic 142–168; BP diastolic 71–105; PULSE 74–107; RESP 13–24; TEMP 97.4–98.7; O2SAT 93–100
[2016-09-08] MEDS: INSULIN NovoLIN REGULAR SUPPLEMENTAL SCALE SQ SCH ×4 (03:00→14:26)
[2016-09-08] MEDS: CHLORHEXIDINE GLUCONATE 2 % 1 PACK (2 CLOTHS) TOP SCH (04:00)
[2016-09-08] MEDS: metroNIDAZOLE 500 MG INJ 100 ML IV SCH ×2 (04:21→10:14)
[2016-09-08] MEDS: AZTREONAM INJ 2,000 MG in SODIUM CHLORIDE 0.9% INJ 100 ML IV SCH ×2 (04:21→13:52)
[2016-09-08] MEDS: SODIUM CHLOR 0.9% 1000 ML INJ 1,000 ML IV SCH ×2 (04:22→06:06)
[2016-09-08 04:25] LABS: AUTOMATED NEUTROPHIL # 3.1 TH/MM3 (1.8-7.7); BASOPHIL % 0.7 % (0.0-2.0); HEMO FLAGS DIFF FINAL; LYMPH % 26.8 % (9.0-44.0); LYMPHOCYTE # 1.3 TH/MM3 (1.0-4.8); MEAN CELL VOLUME 84.7 FL (80.0-100.0); MEAN CORPUSCULAR HEMOGLOBIN 27.8 PG (27.0-34.0); MEAN CORPUSCULAR HGB CONC 32.8 % (32.0-36.0); MONO % 6.6 % (0.0-8.0); NEUT % 64.9 % (16.0-70.0); PLATELET COUNT 105 TH/MM3 (150-450); RED BLOOD COUNT 3.43 MIL/MM3 (4.00-5.30); RED CELL DISTRIBUTION WIDTH 13.8 % (11.6-17.2); WHITE BLOOD COUNT 4.7 TH/MM3 (4.0-11.0)
[2016-09-08 04:53] LABS: ALKALINE PHOSPHATASE 172 U/L (45-117); ALT (GPT) 35 U/L (10-53); ANION GAP 9 MEQ/L (5-15); AST (GOT) 39 U/L (15-37); BICARBONATE 23.8 MEQ/L (21.0-32.0); BLOOD UREA NITROGEN 23 MG/DL (7-18); CHLORIDE 109 MEQ/L (98-107); GLOMERULAR FILTRATION RATE 41 ML/MIN (>89); MAGNESIUM 1.9 MG/DL (1.5-2.5); POTASSIUM 4.4 MEQ/L (3.5-5.1); SODIUM (NA) 142 MEQ/L (136-145); TOTAL BILIRUBIN ADULT 0.3 MG/DL (0.2-1.0)
[2016-09-08] MEDS ORDERED: PHARMACY ORDERED LAB XX ONE (06:00)
--- NOTE | 2016-09-08 08:04 | EKG ---
Date Performed: 09/07/2016 Time Performed: 01:18:26 PTAGE: 46 years EKG: Sinus rhythm NORMAL ECG Compared to PREVIOUS TRACING , the nonspecific ST-T wave changes have resolved as has the sinus tachy cardia. PREVIOUS TRACIN01/22/2016 12.37 DOCTOR: Monica Madera Interpretating Date/Time 09/08/2016 08:03:51
[2016-09-08] MEDS: SODIUM CHLORIDE 0.9% FLUSH 10 ML FLUSH SCH (09:00)
[2016-09-08] MEDS: PANTOPRAZOLE SODIUM 40 MG VIAL IV PUSH SCH (09:28)
[2016-09-08] MEDS: PHENYTOIN SODIUM 100 MG CAP PO SCH ×3 (09:29→17:31)
[2016-09-08] MEDS: levETIRAcetam 500 MG TAB PO SCH (09:30)
[2016-09-08] MEDS ORDERED: VANCOMYCIN INJ 1,250 MG in SODIUM CHLOR 0.9% 250 ML INJ 250 ML IV SCH (10:00)
--- NOTE | 2016-09-08 14:18 | HHI.IDPN ---
Note Infectious Disease Note Patient feels okay. Wants to go home. Denies pain.No complaints. Alert and oriented. Sitting on the side of bed. Admitted with altered mental status. The patient was noted to have a blood glucose of 16. PAST MEDICAL HISTORY 1. Systemic lupus erythematosus. 2. Seizure disorder. 3. Hypertension. 4. Diabetes. 5. Chronic kidney disease. 6. History of foot surgery. 7. History of MRSA foot infection of the left foot in 2013 and history of left foot debridement. ALLERGIES 1. KEFLEX. 2. SULFA. 3. PENICILLIN. 4. MACROBID. 5. ASPIRIN. 6. LEVEMIR. 7. ADHESIVES. ANTIBIOTICS Aztreonam. SOCIAL HISTORY No tobacco. Occasional alcohol. No illicit drugs. The patient lives with her son who is [id number]. OBJECTIVE: Vital Signs Date Time Temp Pulse Resp B/P Pulse Ox O2 Delivery O2 Flow Rate FiO2 09/08/16 14:00 103 09/08/16 12:00 74 09/08/16 12:00 98.6 104 16 150/71 98 09/08/16 10:00 103 09/08/16 08:00 103 09/08/16 08:00 98.7 103 14 151/77 100 09/08/16 06:00 101 09/08/16 04:00 107 09/08/16 04:00 98.3 107 17 154/79 100 09/08/16 02:00 94 09/08/16 00:00 97.4 99 24 168/105 100 09/08/16 00:00 99 09/07/16 23:00 99 09/07/16 22:00 87 09/07/16 20:00 97.2 89 14 137/77 91 09/07/16 20:00 89 09/07/16 18:00 77 09/07/16 16:00 98.3 94 16 144/73 96 09/07/16 16:00 74 09/07/16 15:00 70 09/07/16 09/07/16 09/08/16 15:00 23:00 07:00 Intake Total 1226 ml 599 ml 4548 ml Output Total 620 ml Balance 606 ml 599 ml 4548 ml Intake Oral 4000 ml IV Total 1226 ml 599 ml 548 ml Output Urine Total 620 ml # Voids 2 1 # Bowel Movements 2 3 Laboratory Tests Test 09/06/16 09/07/16 09/07/16 09/08/16 21:35 05:05 12:20 03:22 White Blood Count 2.9 TH/MM3 5.7 TH/MM3 4.7 TH/MM3 Red Blood Count 4.62 MIL/MM3 3.67 MIL/MM3 3.43 MIL/MM3 Hemoglobin 12.9 GM/DL 10.3 GM/DL 10.1 GM/DL 9.5 GM/DL Hematocrit 39.4 % 30.7 % 31.5 % 29.0 % Mean Corpuscular Volume 85.3 FL 85.9 FL 84.7 FL Mean Corpuscular Hemoglobin 28.0 PG 27.4 PG 27.8 PG Mean Corpuscular Hemoglobin 32.8 % 31.9 % 32.8 % Concent Red Cell Distribution Width 14.1 % 13.7 % 13.8 % Platelet Count 113 TH/MM3 108 TH/MM3 105 TH/MM3 Mean Platelet Volume 11.0 FL 11.0 FL 11.3 FL Neutrophils (%) (Auto) 65.7 % 78.6 % 64.9 % Lymphocytes (%) (Auto) 29.4 % 13.8 % 26.8 % Monocytes (%) (Auto) 3.7 % 6.5 % 6.6 % Eosinophils (%) (Auto) 0.4 % 0.7 % 1.0 % Basophils (%) (Auto) 0.8 % 0.4 % 0.7 % Neutrophils # (Auto) 1.9 TH/MM3 4.5 TH/MM3 3.1 TH/MM3 Lymphocytes # (Auto) 0.9 TH/MM3 0.8 TH/MM3 1.3 TH/MM3 Monocytes # (Auto) 0.1 TH/MM3 0.4 TH/MM3 0.3 TH/MM3 Eosinophils # (Auto) 0.0 TH/MM3 0.0 TH/MM3 0.0 TH/MM3 Basophils # (Auto) 0.0 TH/MM3 0.0 TH/MM3 0.0 TH/MM3 CBC Comment DIFF FINAL DIFF FINAL DIFF FINAL Differential Comment Laboratory Tests Test 09/06/16 09/07/16 09/07/16 09/08/16 22:50 05:05 12:20 03:22 Sodium Level 145 MEQ/L 144 MEQ/L 142 MEQ/L Potassium Level 4.9 MEQ/L 5.1 MEQ/L 4.4 MEQ/L Chloride Level 112 MEQ/L 111 MEQ/L 109 MEQ/L Carbon Dioxide Level 24.4 MEQ/L 25.0 MEQ/L 23.8 MEQ/L Anion Gap 9 MEQ/L 8 MEQ/L 9 MEQ/L Blood Urea Nitrogen 32 MG/DL 38 MG/DL 23 MG/DL Creatinine 1.53 MG/DL 2.14 MG/DL 1.61 MG/DL Estimat Glomerular Filtration 44 ML/MIN 30 ML/MIN 41 ML/MIN Rate Random Glucose 154 MG/DL 318 MG/DL 190 MG/DL Calcium Level 8.6 MG/DL 8.0 MG/DL 7.5 MG/DL Total Bilirubin 0.3 MG/DL 0.3 MG/DL 0.3 MG/DL Direct Bilirubin 0.1 MG/DL Aspartate Amino Transf 42 U/L 21 U/L 39 U/L (AST/SGOT) Alanine Aminotransferase 37 U/L 28 U/L 35 U/L (ALT/SGPT) Alkaline Phosphatase 204 U/L 179 U/L 172 U/L Total Creatine Kinase 462 U/L Creatine Kinase MB 9.5 NG/ML Creatine Kinase MB % 2.1 % Troponin I 0.04 NG/ML Total Protein 6.8 GM/DL 5.7 GM/DL 5.5 GM/DL Albumin 3.1 GM/DL 2.6 GM/DL 2.5 GM/DL Lactic Acid Level 1.0 mmol/L Thyroid Stimulating Hormone 0.668 uIU/ML 3rd Gen Random Cortisol 26.7 MCG/DL Phosphorus Level 4.2 MG/DL 2.7 MG/DL Magnesium Level 2.3 MG/DL 1.9 MG/DL Microbiology Date/Time Procedure Status Source Growth 09/06/16 21:35 Urine Culture - Final Complete Urine Catheterized Urine Escherichia Coli Citrobacter Youngae 09/07/16 05:05 Aerobic Blood Culture - Preliminary Resulted Blood Peripheral NO GROWTH IN 1 DAY 09/07/16 05:05 Anaerobic Blood Culture - Preliminary Resulted Blood Peripheral NO GROWTH IN 1 DAY 09/07/16 05:13 Aerobic Blood Culture - Preliminary Resulted Blood Peripheral NO GROWTH IN 1 DAY 09/07/16 05:13 Anaerobic Blood Culture - Preliminary Resulted Blood Peripheral NO GROWTH IN 1 DAY PHYSICAL EXAMINATION GENERAL: No acute distress. She is awake, alert and oriented. HEENT: Extraocular movements grossly intact. Pupils reactive to light. No icterus. Oropharynx mucosa moist. NECK: Supple. No adenopathy. LUNGS: Clear breath sounds. HEART: Regular rate and rhythm. No murmurs, rubs or gallops. ABDOMEN: Bowel sounds present. Soft. No tenderness appreciated. RECTAL: Not performed. EXTREMITIES: Muscle wasting at the hands. Bruises are visible at both knees but have no erythema. No clubbing, cyanosis or edema. SKIN: No rash. NEUROLOGIC: Grossly nonfocal. PSYCHIATRIC: The patient is calm and cooperative. IMPRESSION 1. Probable sepsis in patient with altered mental status and hypothermia, in addition to leukopenia. UTI source. 2. Chronic kidney disease. 3. Hypoglycemia. 4. UTI - citrobacter/ e. coli. RECOMMENDATIONS Change aztreonam to PO Levaquin 250 mg daily. Treat for another 5 days. Irvin Roldan MD Sep 08, 2016 14:18
[2016-09-08] MEDS ORDERED: LEVOFLOXACIN 250 MG TAB PO SCH (15:00)
[2016-09-08] MEDS ORDERED: PROPOFOL 200 MG/20 ML AMP IV ONE (15:00)
--- NOTE | 2016-09-08 15:27 | PD.PROCEDR ---
GI Procedure REFERRING PHYSICIAN Dr. Rose PROCEDURE PERFORMED EGD followed by colonoscopy INDICATION FOR PROCEDURE Anemia GI bleed PROCEDURE: The procedure, risks and benefits were discussed with Ms. Lang and informed consent was obtained. Anesthesia sedated her with Diprivan. She was placed in the left lateral decubitus position. EGD: The Pentax videoscope was introduced through the oropharynx and advanced to the second portion of the duodenum under direct visualization. Retroflexion was performed in the stomach. FINDINGS: The esophagus this was normal The stomach this was normal The duodenum this was normal Colonoscopy: The Pentax videoscope was introduced through the rectum and advanced to cecum where the ileocecal valve and appendiceal orifice were identified. Retroflexion was performed in the rectum. Colonic prep was good FINDINGS: Colonic withdrawal time greater than 6 minutes as the scope was slowly withdrawn colonic mucosa was carefully inspected this was noted to be unremarkable and within normal limits the whole way through the patient was noted to have mild diverticulosis scattered throughout the colon retroflexion was unremarkable in the rectum and so was rectal examination ESTIMATED BLOOD LOSS: None SPECIMENS REMOVED: None COMPLICATIONS: None IMPRESSION: Normal EGD Diverticulosis PLAN: Most likely cause of anemia is anemia of chronic disease No GI bleed noted Recommend high-fiber diet Monitor labs as needed GI will sign off Sree Otero MD Sep 08, 2016 15:27
[2016-09-08] MEDS ORDERED: DO NOT ADM ANY ANTICOAGULANT DRUGS PRN (15:30)
[2016-09-08] MEDS ORDERED: LEVA250T PO (15:45)
[2016-09-08] MEDS ORDERED: LANTUS2P SQ (15:45)
--- NOTE | 2016-09-08 15:45 | HHI.DCPOC ---
Discharge Care Plan Diagnosis: (1) Hypoglycemia (2) Hypothermia (3) Sepsis due to urinary tract infection (4) Acute kidney failure (5) DM (diabetes mellitus), type 1 with hyperosmolarity Goals to Promote Your Health * To prevent worsening of your condition and complications * To maintain your health at the optimal level Directions to Meet Your Goals Take your medications as prescribed Follow your dietary instruction Follow activity as directed Keep your appointments as scheduled Take your immunizations and boosters as scheduled If your symptoms worsen call your PCP, if no PCP go to Urgent Care Center or Emergency Room Smoking is Dangerous to Your Health. Avoid second hand smoke Call the 24-hour hour crisis hotline for domestic abuse at Gina Rose MD Sep 08, 2016 15:45
--- NOTE | 2016-09-08 15:46 | HHI.DS ---
Discharge Summary Admission Date Sep 07, 2016 at 01:57 Discharge Date: Sep 08, 2016 Admitting Diagnosis Sepsis, hypothermia, AMS (1) Acute kidney failure ICD Code: N17.9 Diagnosis: Principal (2) Sepsis due to urinary tract infection ICD Code: A41.9 Diagnosis: Principal (3) UTI (urinary tract infection) ICD Code: N39.0 Diagnosis: Principal (4) Hypoglycemia ICD Code: E16.2 Diagnosis: Principal (5) Hypothermia ICD Code: T68.XXXA Diagnosis: Principal Procedures EGD and colonoscopy Brief History - From Admission 46-year-old female brought in by EMS after possible syncopal episode. She had used the bathroom and then her family saw her lower herself to the ground. When the fire department arrived, her glucose was 16. She was given D50 through an IO. EMS then gave her D10. She has been here before for similar episodes in the polyps. She ate breakfast today and nothing else. She does take Lantus and regular insulin. She says she did not have a seizure. She is complaining of feeling cold. CBC/BMP: 09/08/16 0322 09/08/16 0322 Significant Findings Laboratory Tests Test 09/06/16 09/06/16 09/07/16 09/07/16 21:35 22:50 05:05 12:20 White Blood Count 2.9 TH/MM3 (4.0-11.0) Platelet Count 113 TH/MM3 108 TH/MM3 (150-450) (150-450) Lymphocytes # (Auto) 0.9 TH/MM3 0.8 TH/MM3 (1.0-4.8) (1.0-4.8) Urine Protein 100 mg/dL (NEG-TRACE) Urine Glucose (UA) 300 mg/dL (NEG) Urine Occult Blood SMALL (NEG) Urine Leukocyte Esterase SMALL (NEG) Urine Bacteria OCC /hpf (NONE) Urine Mucus FEW /lpf (OCC) Chloride Level 112 MEQ/L 111 MEQ/L (98-107) (98-107) Blood Urea Nitrogen 32 MG/DL (7-18) 38 MG/DL (7-18) Creatinine 1.53 MG/DL 2.14 MG/DL (0.50-1.00) (0.50-1.00) Estimat Glomerular Filtration 44 ML/MIN (>89) 30 ML/MIN (>89) Rate Random Glucose 154 MG/DL 318 MG/DL (74-106) (74-106) Aspartate Amino Transf 42 U/L (15-37) (AST/SGOT) Alkaline Phosphatase 204 U/L 179 U/L (45-117) (45-117) Total Creatine Kinase 462 U/L (26-192) Creatine Kinase MB 9.5 NG/ML (0.5-3.6) Albumin 3.1 GM/DL 2.6 GM/DL (3.4-5.0) (3.4-5.0) Phenytoin (Dilantin) Level 4.1 MCG/ML (10.0-20.0) Hemoglobin 10.3 GM/DL 10.1 GM/DL (11.6-15.3) (11.6-15.3) Hematocrit 30.7 % 31.5 % (35.0-46.0) (35.0-46.0) Red Blood Count 3.67 MIL/MM3 (4.00-5.30) Mean Corpuscular Hemoglobin 31.9 % Concent (32.0-36.0) Neutrophils (%) (Auto) 78.6 % (16.0-70.0) Calcium Level 8.0 MG/DL (8.5-10.1) Total Protein 5.7 GM/DL (6.4-8.2) Test 09/08/16 03:22 Red Blood Count 3.43 MIL/MM3 (4.00-5.30) Hemoglobin 9.5 GM/DL (11.6-15.3) Hematocrit 29.0 % (35.0-46.0) Platelet Count 105 TH/MM3 (150-450) Mean Platelet Volume 11.3 FL (7.0-11.0) Chloride Level 109 MEQ/L (98-107) Blood Urea Nitrogen 23 MG/DL (7-18) Creatinine 1.61 MG/DL (0.50-1.00) Estimat Glomerular Filtration 41 ML/MIN (>89) Rate Random Glucose 190 MG/DL (74-106) Calcium Level 7.5 MG/DL (8.5-10.1) Aspartate Amino Transf 39 U/L (15-37) (AST/SGOT) Alkaline Phosphatase 172 U/L (45-117) Total Protein 5.5 GM/DL (6.4-8.2) Albumin 2.5 GM/DL (3.4-5.0) Imaging Last Impressions Renal Ultrasound 09/07/16 0000 Signed Impressions: Service Date/Time: Wednesday, September 07, 2016 14:22 - CONCLUSION: Diffuse echogenicity to the kidneys consistent with underlying medical renal disease. No obstruction observed. Jason Machuca Jr., MD Head CT [id number]/06/[id number] Signed Impressions: Service Date/Time: Tuesday, September 06, 2016 21:48 - CONCLUSION: No acute disease. Villa Calderon MD Chest X-Ray [id number]/06/162042 Signed Impressions: Service Date/Time: Tuesday, September 06, 2016 21:07 - CONCLUSION: No acute disease. Villa Calderon MD PE at Discharge Gen NAD CV RRR. no R/M/G Abd soft NDNT Resp CTA B/L Neuro AAO X3. sensation/motor grossly intact. Pt update on day of discharge f/u for multiple medical issues. patient asking to go home and stated that she is back to her baseline. She stated she does not know why she is still here and that she is doing well. Denied any GI bleed. I spoke to her in regards to her hypoglycemia and insulin. She stated that she is on Lantus 30 units in AM and novolog 8 units before meals. She stated when she does not eat she gets this way. When I told her if she does not eat to not take her insulin because her sugars were dangerous low where she could have been in coma. She stated "how am I suppose to know Im not going to eat?' I then told her she has to be consistent with her diet and try to eat the same amount every day because that is why her insulin is dose. Patient denied any suicidal or homicidal ideations. She denied any depression. Hospital Course Altered mental status - Due to Severe hypoglycemia and sepsis. - treatment of conditions resolved AMS. -see below. Possible sepsis - Severe leukopenia hypoglycemia and hypothermia - Blood cultures negative. - ID consult and she was on aztreonam initially along with IVFs. -+ urine cultures grew E coli and Citrobacter Younge -RESOLVED with treatment. UTI -as above Melanotic stool -none witness in hospital. - GI consult and EGD and colonoscopy on 09/08/16 showed mild diverticulosis otherwise negative. - initially put on Protonix IV twice a day but that was d/c on discharge. Seizure disorder - continue home meds - Keppra and phenytoin Hypoglycemia in a Diabetic -due to noncompliance with PO intake. - D50 was given and she was put on D5. -improved quickly. -later put on SSI. -BS off of insulin 100s-300s. -patient put back on Lantus at 10 units QAM. -education given on compliance with insulin and diabetic diet. patient stated she understood. acute on chronic renal failure -IMPROVED with IVFs back to baseline. -sritc I/O. -avoid nephrotoxins. Pt Condition on Discharge: Stable Discharge Disposition: Discharge Home Discharge Time: > 30 minutes Discharge Instructions DIET: Follow Instructions for: Heart Healthy Diet, Diabetic Diet, High Fiber Diet Activities you can perform: Regular-No Restrictions Follow up Referrals: PCP Follow-up - 1 Week New Medications: Levofloxacin (Levaquin) 250 Mg Tab 250 MG PO DAILY Urinary tract infection #5 Ref 0 TAB Changed Medications: Insulin Glargine Inj (Lantus Inj) 1,000 Unit/10 Ml Vial 10 UNITS SQ DAILY Blood Sugar Management #1 Ref 0 VIAL (Changed from: Unknown Dose ) Continued Medications: Atorvastatin (Atorvastatin) 80 Mg Tab 80 MG PO DAILY Cholesterol Management #30 Ref 0 TAB Levetiracetam (Keppra) 500 Mg Tab 1250 MG PO Q12HR seizure Days 30 Ref 0 TAB Phenytoin Extended (Dilantin) 100 Mg Cap 100 MG PO TID Control Seizures #90 Ref 0 CAP Valsartan (Valsartan) 160 Mg Tab 160 MG PO DAILY #30 Ref 0 TAB Discontinued Medications: Gabapentin (Gabapentin) 300 Mg Cap 300 MG PO BID #60 Ref 0 CAP Insulin Aspart Inj (Novolog Inj) 1,000 Unit/10 Ml Vial Unknown Dose SQ [id number] SLIDE SCALE Blood Sugar Management #0 Ref 0 ML Omeprazole (Omeprazole) 20 Mg Tab 20 MG PO DAILY #30 Ref 0 TAB Gina Rose MD Sep 08, 2016 15:46
[2016-09-08] MEDS ORDERED: *LABETALOL HCL 100 MG/20 ML VIAL PERIprocedural Use ONLY ONE (16:09)
[2016-09-11] MEDS ORDERED: PHARMACY ORDERED LAB XX ONE (09:45)
== END 2016-09-08 18:05 | disposition home or self-care (01) | DRG 871 ==
LOC: NEPE 20:22 → NEDA 09-07 01:57 → HIMW 09-07 04:30
PROVIDERS: ADMIT Family Medicine; ATTEND Family Medicine
PROC: 0DJ08ZZ Inspection of Upper Intestinal Tract, Via Natural or Artificial Opening Endoscopic (ICD-10-PCS; principal; 2016-09-08 14:31)
PROC: 0DJD8ZZ Inspection of Lower Intestinal Tract, Via Natural or Artificial Opening Endoscopic (ICD-10-PCS; 2016-09-08 14:31)
DX: A41.9 Sepsis, unspecified organism (principal); G93.40 Encephalopathy, unspecified; T68.XXXA Hypothermia, initial encounter; M32.9 Systemic lupus erythematosus, unspecified; E10.22 Type 1 diabetes mellitus with diabetic chronic kidney disease; N17.9 Acute kidney failure, unspecified; N18.3 Chronic kidney disease, stage 3 (moderate); E10.65 Type 1 diabetes mellitus with hyperglycemia; K92.1 Melena; N39.0 Urinary tract infection, site not specified; B96.20 Unspecified Escherichia coli [E. coli] as the cause of diseases classified elsewhere; R55 Syncope and collapse; I12.9 Hypertensive chronic kidney disease with stage 1 through stage 4 chronic kidney disease, or unspecified chronic kidney disease; Z79.4 Long term (current) use of insulin; M19.90 Unspecified osteoarthritis, unspecified site; J45.909 Unspecified asthma, uncomplicated; E78.00 Pure hypercholesterolemia, unspecified; Z86.73 Personal history of transient ischemic attack (TIA), and cerebral infarction without residual deficits; Z87.442 Personal history of urinary calculi; Z86.14 Personal history of Methicillin resistant Staphylococcus aureus infection; Z88.6 Allergy status to analgesic agent; Z88.1 Allergy status to other antibiotic agents; Z88.2 Allergy status to sulfonamides; Z91.09 Other allergy status, other than to drugs and biological substances; G40.909 Epilepsy, unspecified, not intractable, without status epilepticus; K21.0 Gastro-esophageal reflux disease with esophagitis; K29.70 Gastritis, unspecified, without bleeding; K44.9 Diaphragmatic hernia without obstruction or gangrene; K57.30 Diverticulosis of large intestine without perforation or abscess without bleeding; D63.8 Anemia in other chronic diseases classified elsewhere; S80.02XA Contusion of left knee, initial encounter; S80.01XA Contusion of right knee, initial encounter; W18.30XA Fall on same level, unspecified, initial encounter; Y93.9 Activity, unspecified; Y92.9 Unspecified place or not applicable; Y99.9 Unspecified external cause status; Z91.19 Patient's noncompliance with other medical treatment and regimen
CPT/HCPCS: 70450; 71010; 76775; 76937; 80053; 80185; 80202; 81001; 82248; 82533; 82550; 82552; 82948; 83605; 83735; 84100; 84443; 84484; 85014; 85018; 85025; 85610; 85730; 87040; 87077; 87086; 87186; 87641; 93005; 96374; C9113; J1165; J1815; J1956; J2270; J3370; J7030; J7050

== ENCOUNTER 2016-10-23 18:41 | Observation (INO) | payer MEDICAID ==
[~2016-10-23] VITALS: Ht 167.6 cm; Wt 55.0 kg
[~2016-10-23 18:41] MED LIST changes: -GABA300C5 PO; +LEVA250T PO; -NOVOLOGP2 SQ; -OMEP20TA PO
[2016-10-23 19:05] VITALS: BP 129/102; PULSE 108; RESP 20; TEMP 97.5; O2SAT 99
[2016-10-23] MEDS ORDERED: SODIUM CHLORIDE 0.9% FLUSH 10 ML FLUSH IVF PRN (19:15)
--- NOTE | 2016-10-23 19:23 | PD ---
HPI Chief Complaint: Diabetic Time Seen by Provider: 19:07 Travel History International Travel<30 days: No Contact w/Intl Traveler<30days: No Traveled to known affect area: No History of Present Illness HPI 46-year-old female with history of DM, asthma, lupus, previous CVA, seizure disorder here for low blood glucose. EMS was summoned patient's house by family for altered mental status. When EMS arrived patient was a proximally GCS 6, blood glucose 24. Given 1 amp of D50 with improvement of mental status to GCS 14-15 with point for confusion. Blood glucose increased into the 120s. Patient is unclear why she is here, unclear who called EMS. States she feels cold, denies any other complaints. Per chart review patient was hospitalized in August 2016 for an almost near identical episode with hypothermia, hypoglycemia and rule out sepsis due to leukopenia. She ended up having an Escherichia coli UTI. Patient per medication list at that time was discharged to home with Lantus and regular insulin. Unclear what she is taking for home medications at this time due to her confusion. No family is present at this moment. PFSH Past Medical History Arthritis: Yes Asthma: Yes Autoimmune Disease: Yes (LUPUS) Blood Disorders: Yes Anxiety: No Depression: No Cancer: No Cardiovascular Problems: Yes High Cholesterol: Yes Congestive Heart Failure: No Cerebrovascular Accident: Yes (MAY 2013) Diabetes: Yes Diminished Hearing: No Endocrine: Yes Gastrointestinal Disorders: Yes Genitourinary: Yes Hypertension: Yes Immune Disorder: Yes Kidney Stones: Yes Musculoskeletal: Yes Neurologic: Yes Psychiatric: No Reproductive: No Respiratory: No Renal Failure: Yes (Stage II) Seizures: Yes Sickle Cell Disease: No Thyroid Disease: No : 1 Para: 1 Past Surgical History Abdominal Surgery: Yes Cardiac Surgery: No Section: Yes Cholecystectomy: Yes Ear Surgery: No Endocrine Surgery: No Eye Surgery: No Genitourinary Surgery: No Gynecologic Surgery: Yes ( ) Hysterectomy: Yes Oral Surgery: No Thoracic Surgery: No Other Surgery: Yes (LEFT FOOT WOUND MECHANICAL DEBRIDEMENT) Social History Alcohol Use: Yes (OCCASIONAL/HOLIDAYS) Tobacco Use: No Substance Use: No Allergies-Medications (Allergen,Severity, Reaction): Coded Allergies: Aspirin (Verified Allergy, Severe, 09/06/16) RASH Keflex (Verified Allergy, Severe, foaming mouth, 09/06/16) Levemir (Verified Allergy, Severe, Sweats, funny feeling, mood swings, daze, 09/06/16) Penicillin (Verified Allergy, Severe, 09/06/16) Sulfa (Verified Allergy, Severe, 09/06/16) RASH Adhesives (Verified Allergy, Unknown, 09/06/16) Macrobid (Unverified Allergy, Unknown, 09/06/16) *MDRO Multi-Drug Resistant Organism (Unverified Adverse Reaction, Unknown , 09/06/16) MRSA 2013 MRSA PCR Screen negative 03/06/15, but POSITIVE on 01/22/16 Reported Meds & Prescriptions Reported Meds & Active Scripts Active Levaquin (Levofloxacin) 250 Mg Tab 250 Mg PO DAILY Lantus Inj (Insulin Glargine) 1,000 Unit/10 Ml Vial 10 Units SQ DAILY Keppra (Levetiracetam) 500 Mg Tab 1,250 Mg PO Q12HR 30 Days Dilantin (Phenytoin Extended) 100 Mg Cap 100 Mg PO TID Reported Atorvastatin (Atorvastatin Calcium) 80 Mg Tab 80 Mg PO DAILY Valsartan 160 Mg Tab 160 Mg PO DAILY Review of Systems ROS Limitations: Altered Mental Status, Poor Historian Physical Exam Exam Limitations: Altered Mental Status, Poor Historian Narrative GENERAL: Middle-aged female in no acute distress SKIN: Focused skin assessment warm/dry. Abrasion/skin tear over the left walters. HEAD: Normocephalic. EYES: No scleral icterus. No injection or drainage. ENT: Mucous membranes pink and moist. NECK: Supple CARDIOVASCULAR: Mild tachycardia with heart rate in the 100s, regular rhythm. No murmur appreciated. RESPIRATORY: No accessory muscle use. Clear to auscultation. Breath sounds equal bilaterally. GASTROINTESTINAL: Abdomen soft, non-tender, nondistended. MUSCULOSKELETAL: No obvious deformities. No edema. NEUROLOGICAL: Awake and alert 3 but confused about historical questioning. No obvious cranial nerve deficits. Motor grossly within normal limits. Normal speech. PSYCHIATRIC: Deferred given altered mental status Data Data Last Documented VS Vital Signs Date Time Temp Pulse Resp B/P Pulse Ox O2 Delivery O2 Flow Rate FiO2 10/23/16 20:20 102 16 174/114 96 Room Air 10/23/16 19:05 97.5 Orders Electrocardiogram (10/23/16 19:11) Ammonia (10/23/16 19:11) Complete Blood Count With Diff (10/23/16 19:11) Comprehensive Metabolic Panel (10/23/16 19:11) Prothrombin Time / Inr (Pt) (10/23/16 19:11) Act Partial Throm Time (Ptt) (10/23/16 19:11) Troponin I (10/23/16 19:11) Lactic Acid Sepsis Protocol (10/23/16 19:11) Urinalysis - C+S If Indicated (10/23/16 19:11) Blood Culture (10/23/16 19:11) Ct Brain W/O Iv Contrast(Rout) (10/23/16 19:11) Blood Glucose (10/23/16 19:11) Ecg Monitoring (10/23/16:11) Iv Access Insert/Monitor (10/23/16:) Oximetry (10/23/16 19:11) Sodium Chloride 0.9% Flush (Ns Flush) (10/23/16 19:15) Phenytoin (Dilantin) (10/23/16 19:11) Lipase (10/23/16 19:11) Sodium Chlor 0.9% 1000 Ml Inj (Ns 1000 M (10/23/16 20:15) Chest, Single Ap (10/23/16 ) Vancomycin Inj (Vancomycin Inj) (10/23/16 20:17) Aztreonam Inj (Azactam Inj) (10/23/16 20:17) Metronidazole 500 Mg Inj (Flagyl 500 Mg (10/23/16 20:17) Labs Laboratory Tests Test 10/23/16 19:32 White Blood Count 6.1 TH/MM3 Red Blood Count 4.13 MIL/MM3 Hemoglobin 11.8 GM/DL Hematocrit 35.8 % Mean Corpuscular Volume 86.6 FL Mean Corpuscular Hemoglobin 28.5 PG Mean Corpuscular Hemoglobin 32.9 % Concent Red Cell Distribution Width 14.6 % Platelet Count 188 TH/MM3 Mean Platelet Volume 10.6 FL Neutrophils (%) (Auto) 78.2 % Lymphocytes (%) (Auto) 15.7 % Monocytes (%) (Auto) 5.4 % Eosinophils (%) (Auto) 0.1 % Basophils (%) (Auto) 0.6 % Neutrophils # (Auto) 4.8 TH/MM3 Lymphocytes # (Auto) 1.0 TH/MM3 Monocytes # (Auto) 0.3 TH/MM3 Eosinophils # (Auto) 0.0 TH/MM3 Basophils # (Auto) 0.0 TH/MM3 CBC Comment DIFF FINAL Differential Comment Prothrombin Time 11.2 SEC Prothromb Time International 1.0 RATIO Ratio Activated Partial 23.6 SEC Thromboplast Time Urine Color YELLOW Urine Turbidity HAZY Urine pH 6.0 Urine Specific [place] 1.014 Urine Protein 300 mg/dL Urine Glucose (UA) TRACE mg/dL Urine Ketones TRACE mg/dL Urine Occult Blood MOD Urine Nitrite NEG Urine Bilirubin NEG Urine Urobilinogen LESS THAN 2.0 MG/DL Urine Leukocyte Esterase NEG Urine RBC 1 /hpf Urine WBC 5 /hpf Urine Squamous Epithelial 5 /hpf Cells Urine Hyaline Casts 3 /lpf Urine Mucus FEW /lpf Microscopic Urinalysis Comment CULT NOT INDICATED Sodium Level 149 MEQ/L Potassium Level 4.8 MEQ/L Chloride Level 114 MEQ/L Carbon Dioxide Level 28.3 MEQ/L Anion Gap 7 MEQ/L Blood Urea Nitrogen 39 MG/DL Creatinine 1.97 MG/DL Estimat Glomerular Filtration 33 ML/MIN Rate Random Glucose 131 MG/DL Lactic Acid Level 2.1 mmol/L Calcium Level 8.9 MG/DL Total Bilirubin 0.4 MG/DL Aspartate Amino Transf 90 U/L (AST/SGOT) Alanine Aminotransferase 60 U/L (ALT/SGPT) Alkaline Phosphatase 218 U/L Ammonia 20 MCMOL/L Troponin I LESS THAN 0.02 NG/ML Total Protein 7.3 GM/DL Albumin 3.1 GM/DL Lipase 36 U/L Phenytoin (Dilantin) Level 1.4 MCG/ML [facility] Medical Decision Making Medical Screen Exam Complete: Yes Emergency Medical Condition: Yes Medical Record Reviewed: Yes Differential Diagnosis 46-year-old female with history of diabetes, seizure disorder here with altered mental status and low blood glucose. Patient also has a notable abrasion on the walters at this time, and is persistently confused about historical questioning despite now normalized blood glucose. Differential includes hypoglycemia, left foot abnormality, arrhythmia, syncope, seizure, closed head injury, ICH, abrasion, UTI, sepsis. Narrative Course Patient placed on monitor, IV established and blood obtained. Twelve-lead EKG showed sinus tachycardia, rate [address] abnormalities, normal intervals. CBC, CMP, lipase, Dilantin level, ammonia, troponin, lactic acid, coags, urinalysis, blood cultures obtained and notable for lactate 2.1. With a combination of her tachycardia, hypoglycemia, elevated lactate and concern for possible sepsis versus whether this is all related to hypoglycemia and dehydration. Given 1 L normal saline bolus and empirically covered with Azactam , Flagyl, vancomycin. CT of the brain showed no acute abnormalities. Chest x- ray unremarkable. Family arrived later and patient ED stay. Father is here and states that patient has been somewhat slower to respond for the last several days, more groggy than usual. Today she was completely altered and unresponsive prompting him to call 911, and then EMS found her hypoglycemic. He states that this is almost identical to when patient was admitted in August 2016. He states that patient has otherwise been well recently and is essentially almost back to her baseline at this time, though still somewhat slower to respond and shaky/ tremulousness which is not her baseline. Patient will be admitted for blood glucose monitoring and rule out sepsis. Critical Care Narrative Aggregate critical care time was 35 minutes. Time to perform other separately billable procedures was not included in the critical care time. My time did not include minutes spent treating any other patients simultaneously or on activities that did not directly contribute to the patient's treatment. The services I provided to this patient were to treat and/or prevent clinically significant deterioration that could result in: Cardiopulmonary decompensation, metabolic decompensation, , disability I provided critical care services requiring my management, as noted below: Chart data review, documentation time, medication orders and management, vital sign assessments/reviewing monitor data, ordering and reviewing lab tests, ordering and interpreting/reviewing x-rays and diagnostic studies, care of the patient and discussion of the patient with the admitting physicians. Sepsis Criteria SIRS Criteria (2 or more): Heart rate over 90 Sepsis Criteria (SIRS+source): Infect source susp/known Severe Sepsis (+one): Lactate >2 Criteria Outcome: Meets severe sepsis criteria Diagnosis Primary Impression: Hypoglycemia Additional Impressions: Lactic acidosis Tachycardia Insulin dependent diabetes mellitus Admitting Information Admitting Physician Requests: Admit Lili Alvarez MD October 23, 2016 19:23
[2016-10-23 19:48] LABS: AUTOMATED NEUTROPHIL # 4.8 TH/MM3 (1.8-7.7); BASOPHIL % 0.6 % (0.0-2.0); EOSINOPHIL % 0.1 % (0.0-4.0); HEMATOCRIT 35.8 % (35.0-46.0); HEMO FLAGS DIFF FINAL; LYMPH % 15.7 % (9.0-44.0); MEAN CELL VOLUME 86.6 FL (80.0-100.0); MEAN CORPUSCULAR HEMOGLOBIN 28.5 PG (27.0-34.0); MEAN CORPUSCULAR HGB CONC 32.9 % (32.0-36.0); MONO % 5.4 % (0.0-8.0); NEUT % 78.2 % (16.0-70.0); PLATELET COUNT 188 TH/MM3 (150-450); RED BLOOD COUNT 4.13 MIL/MM3 (4.00-5.30); RED CELL DISTRIBUTION WIDTH 14.6 % (11.6-17.2); WHITE BLOOD COUNT 6.1 TH/MM3 (4.0-11.0)
[2016-10-23 19:56] LABS: BLOOD, URINE MOD (NEG); COMMENT (UR) CULT NOT INDICATED; CULTURE IF INDICATED CULT NOT INDICATED; GLUCOSE,URINE TRACE mg/dL (NEG); HYALINE CAST, URINE 3 /lpf (RARE); KETONE, URINE TRACE mg/dL (NEG); MUCUS URINE FEW /lpf (OCC); NITRITE,URINE NEG (NEG); SQUAMOUS EPITHELIAL CELL URINE 5 /hpf (0-5); URINE COLOR YELLOW (YELLW/STRAW)
[2016-10-23 19:59] LABS: APTT (PATIENT) 23.6 SEC (24.3-30.1); PROTHROMBIN TIME - PATIENT 11.2 SEC (9.8-11.6)
--- NOTE | 2016-10-23 20:02 | RADRPT ---
EXAM DATE/TIME: 10/23/2016 19:53 [facility] COMPARISON: CT BRAIN W/O CONTRAST, September 06, 2016, 21:48. INDICATIONS : Altered mental status. RADIATION DOSE: 56.77 CTDIvol (mGy) MEDICAL HISTORY : Cardiovascular disease. Hypertension. Renal calculi. Diabetes. Renal failure. CVA. SURGICAL HISTORY : Cholecystectomy. Hysterectomy. ENCOUNTER: Initial ACUITY: 1 day PAIN SCALE: 0/10 LOCATION: cranial TECHNIQUE: Multiple contiguous axial images were obtained of the head. Using automated exposure control and adj ustment of the mA and/or kV according to patient size, radiation dose was kept as low as reasonably a chievable to obtain optimal diagnostic quality images. FINDINGS: CEREBRUM: The ventricles are normal for age. No evidence of midline shift, mass lesion, hemorrhage or acute in farction. No extra-axial fluid collections are seen. Minimal left periventricular area of decreased attenuation consistent with possible demyelination or small vessel ischemic change. POSTERIOR FOSSA: The cerebellum and brainstem are intact. The 4th ventricle is midline. The cerebellopontine angle i s unremarkable. EXTRACRANIAL: The visualized portion of the orbits is intact. SKULL: The calvaria is intact. No evidence of skull fracture. CONCLUSION: 1. Minimal left periventricular area of decreased attenuation consistent with possible demyelination or small vessel ischemic change. 2. No acute infarct, acute hemorrhage, mass effect or extra-axial fluid collections. Villa Calderon MD on October 23, 2016 at 19:57 Board Certified Radiologist. This report was verified electronically.
[2016-10-23 20:10] LABS: ANION GAP 7 MEQ/L (5-15); AST (GOT) 90 U/L (15-37); BICARBONATE 28.3 MEQ/L (21.0-32.0); BLOOD UREA NITROGEN 39 MG/DL (7-18); CHLORIDE 114 MEQ/L (98-107); GLOMERULAR FILTRATION RATE 33 ML/MIN (>89); POTASSIUM 4.8 MEQ/L (3.5-5.1); SODIUM (NA) 149 MEQ/L (136-145)
[2016-10-23 20:15] VITALS: BP 195/97; PULSE 102; RESP 15; O2SAT 98
[2016-10-23] MEDS ORDERED: SODIUM CHLOR 0.9% 1000 ML INJ 1,000 ML IV ONE (20:15)
[2016-10-23] MEDS ORDERED: metroNIDAZOLE 500 MG INJ 100 ML IV STA (20:17)
[2016-10-23] MEDS ORDERED: AZTREONAM INJ 2,000 MG in SODIUM CHLORIDE 0.9% INJ 100 ML IV STA (20:17)
[2016-10-23] MEDS ORDERED: VANCOMYCIN INJ 1,000 MG in SODIUM CHLOR 0.9% 250 ML INJ 250 ML IV STA (20:17)
[2016-10-23 20:20] VITALS: BP 174/114; PULSE 102; RESP 16; O2SAT 96
[2016-10-23 20:21] LABS: ALKALINE PHOSPHATASE 218 U/L (45-117); ALT (GPT) 60 U/L (10-53); TOTAL BILIRUBIN ADULT 0.4 MG/DL (0.2-1.0)
--- NOTE | 2016-10-23 20:39 | RADRPT ---
EXAM DATE/TIME: 10/23/2016 20:28 [facility] COMPARISON: CHEST SINGLE AP, September 06, 2016, 21:07. INDICATIONS : Fever. MEDICAL HISTORY : Cardiovascular disease. Hypertension. Renal calculi. Diabetes. Renal failure.CVA SURGICAL HISTORY : Cholecystectomy. Hysterectomy. ENCOUNTER: Initial ACUITY: 1 day PAIN SCORE: 0/10 LOCATION: Bilateral chest FINDINGS: A single view of the chest demonstrates the lungs to be symmetrically aerated without evidence of mas s, infiltrate or effusion. The cardiomediastinal contours are unremarkable. Osseous structures are intact. CONCLUSION: No acute disease. Villa Calderon MD on October 23, 2016 at 20:37 Board Certified Radiologist. This report was verified electronically.
[2016-10-23] MEDS ORDERED: SODIUM CHLOR 0.9% 1000 ML INJ 1,000 ML IV SCH (21:09)
--- NOTE | 2016-10-23 21:09 | HHI.HP ---
[facility] Andrea Cardoso Admission Diagnosis hypoglycemia, rule out sepsis Diagnoses: (1) Acute encephalopathy Diagnosis: Principal (2) Hypoglycemia Diagnosis: Principal (3) Lactic acidosis Diagnosis: Principal (4) Seizure disorder Diagnosis: Principal (5) HTN (hypertension) Diagnosis: Principal Travel History International Travel<30 Days: No Contact w/Intl Traveler <30 Da: No Traveled to Known Affected Are: No History of Present Illness This is a 46-year-old female with a PMH of Asthma, Lupus, HTN, DM, CVA and Seizure Disorder was brought to the ER by EMS secondary to altered mental status. Per Mother, she found patient at home with significant confusion. Upon EMS arrival, BS 24 s/p D50 w/ improvement in mental status. Pt remains mildly confused per family, however denies any complaints. Has no recollection of events. States she normally takes Lantus 30u qam, however didn't take Lantus this morning as she was "brought here". Denies recent changes to dosages. No nausea, vomiting, diarrhea or sick contacts. Previous admit for similar presentation, found to have E.Coli UTI at that time. On arrival , BP 129/102, HR 108, O2 sat 99% on RA, Afebrile. CBC unremarkable except for mildly elevated neutrophil count. Creatinine 1.97, previously 1.61 on 09/08/16. Lactic Acid 2.1, repeat 0.7. LFTs mildly elevated in comparison to previous labs. Troponin negative. U 20. UA negative for UTI. Phenytoin Level subtherapeutic at 1.4. CXR with no acute findings. CT Head negative. Review of Systems Except as stated in HPI: all other systems reviewed are Neg ROS: 14 point review of systems otherwise negative. Past Family Social History Past Medical History PMH: Asthma, Lupus, HTN, DM, CVA and Seizure Disorder Past Surgical History PAST SURGICAL HISTORY: , Cholecystectomy, Left Foot Surgery, Hysterectomy Allergies: Coded Allergies: Aspirin (Verified Allergy, Severe, 09/06/16) RASH Keflex (Verified Allergy, Severe, foaming mouth, 09/06/16) Levemir (Verified Allergy, Severe, Sweats, funny feeling, mood swings, daze, 09/06/16) Penicillin (Verified Allergy, Severe, 09/06/16) Sulfa (Verified Allergy, Severe, 09/06/16) RASH Adhesives (Verified Allergy, Unknown, 09/06/16) Macrobid (Unverified Allergy, Unknown, 09/06/16) *MDRO Multi-Drug Resistant Organism (Unverified Adverse Reaction, Unknown , 09/06/16) MRSA 2013 MRSA PCR Screen negative 03/06/15, but POSITIVE on 01/22/16 Family History PAST FAMILY HISTORY: Reviewed. No h/o DM or CAD Social History PAST SOCIAL HISTORY: Negative for alcohol, tobacco or drugs. Physical Exam Vital Signs Vital Signs Date Time Temp Pulse Resp B/P Pulse Ox O2 Delivery O2 Flow Rate FiO2 10/23/16 20:20 102 16 174/114 96 Room Air 10/23/16 20:15 102 15 195/97 98 Room Air 10/23/16 19:05 97.5 108 20 129/102 99 Physical Exam PE: GENERAL: Middle-aged black female in no acute distress mildly confused. Family at bedside. HEENT: PERRLA, EOMI. No scleral icterus or conjunctival pallor. No lid lag or facial droop. CARDIOVASCULAR: Regular rate and rhythm. No obvious murmurs to auscultation. No chest tenderness to palpation. RESPIRATORY: No obvious rhonchi or wheezing. Clear to auscultation. Breath sounds equal bilaterally. GASTROINTESTINAL: Abdomen soft, non-tender, nondistended. BS normal. MUSCULOSKELETAL: Extremities without clubbing, cyanosis, or edema. No obvious deformities. NEUROLOGICAL: Awake, alert and oriented to person place and time, however mildly confused.. No focal neurologic deficits. Moving both upper and lower extremities spontaneously. Laboratory Laboratory Tests Test 10/23/16 19:32 White Blood Count 6.1 Red Blood Count 4.13 Hemoglobin 11.8 Hematocrit 35.8 Mean Corpuscular Volume 86.6 Mean Corpuscular Hemoglobin 28.5 Mean Corpuscular Hemoglobin 32.9 Concent Red Cell Distribution Width 14.6 Platelet Count 188 Mean Platelet Volume 10.6 Neutrophils (%) (Auto) 78.2 Lymphocytes (%) (Auto) 15.7 Monocytes (%) (Auto) 5.4 Eosinophils (%) (Auto) 0.1 Basophils (%) (Auto) 0.6 Neutrophils # (Auto) 4.8 Lymphocytes # (Auto) 1.0 Monocytes # (Auto) 0.3 Eosinophils # (Auto) 0.0 Basophils # (Auto) 0.0 CBC Comment DIFF FINAL Differential Comment Prothrombin Time 11.2 Prothromb Time International 1.0 Ratio Activated Partial 23.6 Thromboplast Time Urine Color YELLOW Urine Turbidity HAZY Urine pH 6.0 Urine Specific Dane 1.014 Urine Protein 300 Urine Glucose (UA) TRACE Urine Ketones TRACE Urine Occult Blood MOD Urine Nitrite NEG Urine Bilirubin NEG Urine Urobilinogen LESS THAN 2.0 Urine Leukocyte Esterase NEG Urine RBC 1 Urine WBC 5 Urine Squamous Epithelial 5 Cells Urine Hyaline Casts 3 Urine Mucus FEW Microscopic Urinalysis Comment CULT NOT INDICATED Sodium Level 149 Potassium Level 4.8 Chloride Level 114 Carbon Dioxide Level 28.3 Anion Gap 7 Blood Urea Nitrogen 39 Creatinine 1.97 Estimat Glomerular Filtration 33 Rate Random Glucose 131 Lactic Acid Level 2.1 Calcium Level 8.9 Total Bilirubin 0.4 Aspartate Amino Transf 90 (AST/SGOT) Alanine Aminotransferase 60 (ALT/SGPT) Alkaline Phosphatase 218 Ammonia 20 Troponin I LESS THAN 0.02 Total Protein 7.3 Albumin 3.1 Lipase 36 Phenytoin (Dilantin) Level 1.4 Date/Time Procedure Status Source Growth 10/23/16 19:15 Aerobic Blood Culture Received Blood Peripheral Pending 10/23/16 19:15 Anaerobic Blood Culture Received Blood Peripheral Pending Result Diagram: 10/23/16193110/23/161931 Assessment and Plan Problem List: (1) Acute encephalopathy ICD Code: G93.40 Status: Acute (2) Hypoglycemia ICD Code: E16.2 Status: Acute (3) Lactic acidosis ICD Code: E87.2 Status: Acute (4) HTN (hypertension) ICD Code: I10 Status: Acute (5) Seizure disorder ICD Code: G40.909 Status: Acute Assessment and Plan A/P: 1. Acute Encephalopathy: Likely secondary to hypoglycemia, mental status currently improved, mild residual confusion per family. CT Head w/ no acute findings. 2. Hypoglycemia: Unclear etiology. Per pt takes Lantus 30u qam, last dose yesterday morning. BS 24 upon EMS arrival, s/p D50, now 130's and stable. Hold Insulin. Check Hgb A1c, last A1c 13.0 on 05/25/16. R/o sepsis as possible etiology for hypoglycemia, however no obvious infection at this time. 3. Lactic Acidosis: Lactate 2.1, afebrile, no leukocytosis. No evidence of infection. Afebrile, no leukocytosis. Repeat lactate 0.7, now normalized. 4. HTN: Uncontrolled. BP 180's. Resume home medications, monitor BP. 5. Seizure Disorder: Phenytoin subtherapeutic, no reported seizure activity. Resume home medications. 6. DVT Prophylaxis: SCD/Teds. 7. Social work for d/c planning as needed. 8. Case discussed w/ ER physician at length Annmarie Salazar MD October 23, 2016 21:09
[2016-10-23] MEDS ORDERED: DEXTROSE 50% IN WATER 50 ML VIAL(D50) IV PUSH PRN (21:15)
[2016-10-23] MEDS ORDERED: BISACODYL 10 MG SUPP RECTAL PRN (21:15)
[2016-10-23] MEDS ORDERED: ONDANSETRON HCL 4 MG/2 ML VIAL IVP PRN (21:15)
[2016-10-23] MEDS ORDERED: ACETAMINOPHEN 325 MG TAB PO PRN (21:15)
[2016-10-23] MEDS ORDERED: SODIUM CHLORIDE 0.9% FLUSH 10 ML FLUSH IV FLUSH PRN (21:15)
[2016-10-23] MEDS ORDERED: GLUCAGON 1 MG/ML VIAL OTHER PRN (21:15)
[2016-10-23 21:39] LABS: LACTIC ACID GHOST NOT REPORTABLE
[2016-10-23 22:10] VITALS: BP 165/83; PULSE 99; RESP 20; O2SAT 96
[2016-10-24] VITALS (12 sets, daily range): BP systolic 131–215; BP diastolic 60–120; PULSE 86–104; RESP 18–20; TEMP 99.2–99.4; O2SAT 95–100
[2016-10-24] MEDS ORDERED: METOPROLOL TARTRATE 25 MG TAB PO ONE (00:30)
[2016-10-24 05:14] LABS: AUTOMATED NEUTROPHIL # 4.4 TH/MM3 (1.8-7.7); BASOPHIL % 0.5 % (0.0-2.0); EOSINOPHIL % 0.7 % (0.0-4.0); HEMATOCRIT 27.4 % (35.0-46.0); HEMO FLAGS DIFF FINAL; LYMPH % 23.1 % (9.0-44.0); LYMPHOCYTE # 1.5 TH/MM3 (1.0-4.8); MEAN CELL VOLUME 87.9 FL (80.0-100.0); MEAN CORPUSCULAR HEMOGLOBIN 28.1 PG (27.0-34.0); MONO % 7.5 % (0.0-8.0); NEUT % 68.2 % (16.0-70.0); PLATELET COUNT 140 TH/MM3 (150-450); RED BLOOD COUNT 3.12 MIL/MM3 (4.00-5.30); RED CELL DISTRIBUTION WIDTH 14.1 % (11.6-17.2); WHITE BLOOD COUNT 6.4 TH/MM3 (4.0-11.0)
[2016-10-24 05:45] LABS: ALKALINE PHOSPHATASE 168 U/L (45-117); ALT (GPT) 42 U/L (10-53); ANION GAP 4 MEQ/L (5-15); AST (GOT) 46 U/L (15-37); BICARBONATE 26.6 MEQ/L (21.0-32.0); BLOOD UREA NITROGEN 34 MG/DL (7-18); CHLORIDE 117 MEQ/L (98-107); GLOMERULAR FILTRATION RATE 40 ML/MIN (>89); POTASSIUM 4.3 MEQ/L (3.5-5.1); SODIUM (NA) 148 MEQ/L (136-145); TOTAL BILIRUBIN ADULT 0.3 MG/DL (0.2-1.0)
[2016-10-24] MEDS: SODIUM CHLORIDE 0.9% FLUSH 10 ML FLUSH IV FLUSH SCH ×2 (08:38→20:57)
[2016-10-24] MEDS: ATORVASTATIN 80 MG TAB PO SCH (08:38)
[2016-10-24] MEDS: PHENYTOIN SODIUM 100 MG CAP PO SCH ×3 (08:38→18:14)
[2016-10-24] MEDS: VALSARTAN 160 MG TAB PO SCH (08:38)
[2016-10-24] MEDS ORDERED: LEVE250T5 PO (08:50)
[2016-10-24] MEDS: levETIRAcetam 250 MG TAB PO SCH ×2 (08:52→20:57)
[2016-10-24] MEDS ORDERED: levETIRAcetam 250 MG TAB PO SCH (09:00)
[2016-10-24] MEDS ORDERED: NOVOINJ3 SQ (11:22)
[2016-10-24] MEDS ORDERED: METO25TA3 PO (11:22)
[2016-10-24] MEDS ORDERED: FLUO10CA5 PO (11:22)
[2016-10-24] MEDS ORDERED: CEPH500T PO (11:22)
--- NOTE | 2016-10-24 12:03 | HHI.PR ---
Subjective Remarks Follow up metabolic encephalopathy and hypoglycemia. Patient seen and examined. Lying in bed comfortably in no distress. Alert and oriented. States that she feels much better. Denies any new acute complaints. Denies any recent fever, chills, cough, shortness of breath, nausea or vomiting. Tolerating PO intake. 1630 Patient blood pressure elevated, systolic > 200's. Started Nifedipine. Will continue to monitor. Objective Vitals Vital Signs Date Time Temp Pulse Resp B/P Pulse Ox O2 Delivery O2 Flow Rate FiO2 10/24/16 08:22 92 18 100 10/24/16 04:15 99.4 89 20 131/60 97 10/24/16 00:23 102 10/24/16 00:17 104 20 180/81 97 10/23/16 22:10 99 20 165/83 96 Room Air 10/23/16 20:20 102 16 174/114 96 Room Air 10/23/16 20:15 102 15 195/97 98 Room Air 10/23/16 19:05 97.5 108 20 129/102 99 I/O 10/23/16 10/23/16 10/23/16 10/24/16 10/24/16 10/24/16 06:59 14:59 22:59 06:59 14:59 22:59 Intake Total 321 ml Balance 321 ml Intake Oral 221 ml IV Total 100 ml # Voids 1 Result Diagram: 10/24/16 0450 10/24/16 0450 Imaging Last Impressions Head CT 10/23/16 1911 Signed Impressions: Service Date/Time: Sunday, October 23, 2016 19:53 - CONCLUSION: 1. Minimal left periventricular area of decreased attenuation consistent with possible demyelination or small vessel ischemic change. 2. No acute infarct, acute hemorrhage, mass effect or extra-axial fluid collections. Villa Calderon MD Chest X-Ray 10/23/16 0000 Signed Impressions: Service Date/Time: Sunday, October 23, 2016 20:28 - CONCLUSION: No acute disease. Villa Calderon MD Objective Remarks GENERAL: Well-nourished, well-developed patient in NAD lying in bed comfortably. SKIN: Warm and dry. No rash. Left knee 1x1 cm open, erythematous wound present with minimal drainage noted. HEENT Normocephalic. Atraumatic. Pupils equal and round. No scleral icterus. No injection or drainage. No nasal bleeding or discharge. Mucous membranes pink and moist. NECK: Supple. Trachea midline. CARDIOVASCULAR: Regular rate and rhythm. S1, S2 noted. No murmur appreciated. RESPIRATORY: No accessory muscle use. Clear to auscultation. Breath sounds equal bilaterally. GASTROINTESTINAL: Abdomen soft, non-tender, nondistended. Normoactive bowel sounds x4. MUSCULOSKELETAL: No obvious deformities. Extremities without clubbing, cyanosis , or edema. NEUROLOGICAL: Awake and alert. No obvious cranial nerve deficits. Motor grossly within normal limits. Normal speech. PSYCHIATRIC: Appropriate mood and affect; insight and judgment normal. Urinary Catheter: No Vascular Central Line Catheter: No A/P Assessment and Plan Ms. Lang is a 46-year-old female with a known medical history of asthma, systemic lupus, hypertension, diabetes mellitus, history of CVA and seizure disorder who presented to the ED with altered mental status and a blood sugar of 24, and subtherapeutic Dilantin levels. Acute metabolic encephalopathy: suspect secondary to hypoglycemia. Resolved. Seizure disorder - CT head reviewed, minimal left periventricular area of decreased attenuation consistent with possible demyelination or small vessel ischemic change. No acute infarct, hemorrhage, mass effect or extra-axial fluid collections. - Mental status improved, patient alert and oriented. - Subtherapeutic Dilantin level, patient noncompliant with home medications. - Continue at home medications, Levetiracetam 250 mg PO Q12h and Phenytoin 100 mg PO TID. - Seizure precautions. Encouraged to follow up with neurologist outpatient, patient agreeable. Hypoglycemia: Resolved. - Status post D50 and IVF administration. - DC IVF. Tolerating PO intake. - Encourage 1800 ADA diet. Monitor hypoglycemia. - Continue ACCU checks ACHS. - Will check A1c. - Will consult primary special educator to help assist with noncompliance and developing a plan. - Patient agrees to follow up with PCP after discharge. Acute kidney injury: suspect secondary to dehydration - Improving. Creatinine 1.97 on presentation, today 10/24 1.67. Repeat BMP today. - Status post IV fluids. Tolerating PO intake. - Encourage PO fluids. - Avoid nephrotoxins. Normocytic normochromic anemia: Reviewed prior labs, patient does have history of anemia. No signs or symptoms of bleeding. Repeat CBC today. Lactic acidosis: suspect secondary to dehydration and hypoglycemia. Resolved. - Lactic acid 2.1 on presentation, today 10/24, 1.0. WBC WNL. Blood cultures NGTD. - Status post Azactam 2 g IV x 1 given in ED, Vancomycin 1 g IV x 1 given in ED, Metronidazole 500 mg IV x 1 in ED. - Status post fluid replacement. Subacute left lower extremity cellulitis: Appears to be healing. Treated outpatient with Keflex, will continue as prescribed. Hypertension, uncontrolled: Continue Valsartan 160 mg PO daily. Metoprolol 25 mg PO BID not previously restarted from home medication list, will restart. Start Nifedipine. Will monitor response. Elevated liver enzymes: Alkaline phosphatase 218 and AST 90 on presentation. Today 10/24, Alkaline phosphatase 168 and AST 46. Monitor. Will check CPK. Dyslipidemia: Continue Atorvastatin 80 mg PO daily, history of CVA. Encourage outpatient follow up for elevated alkaline phosphatase and statin use. DVT prophylaxis: SCDs/TEDs. Discharge Planning Contingent on blood pressure control. Isidra Otero October 24, 2016 12:03 Seizure disorder: Continue at home medications, Levetiracetam 250 mg PO Q12h and Phenytoin 100 mg PO TID. Seizure precautions. DVT prophylaxis: SCDs/TEDs. Isidra Otero October 24, 2016 12:03
[2016-10-24] MEDS: METOPROLOL TARTRATE 25 MG TAB PO SCH ×2 (12:19→20:58)
[2016-10-24] MEDS: FLUoxetine HCL 10 MG CAP PO SCH (12:32)
[2016-10-24] MEDS: CEPHALEXIN MONOHYDRATE 500 MG CAP PO SCH ×2 (13:14→18:14)
[2016-10-24 13:19] LABS: AUTOMATED NEUTROPHIL # 6.7 TH/MM3 (1.8-7.7); BASOPHIL % 0.2 % (0.0-2.0); EOSINOPHIL % 0.1 % (0.0-4.0); HEMATOCRIT 35.7 % (35.0-46.0); LYMPH % 9.8 % (9.0-44.0); LYMPHOCYTE # 0.7 TH/MM3 (1.0-4.8); MEAN CELL VOLUME 85.7 FL (80.0-100.0); MEAN CORPUSCULAR HEMOGLOBIN 28.3 PG (27.0-34.0); MONO % 2.4 % (0.0-8.0); NEUT % 87.5 % (16.0-70.0); PLATELET COUNT 188 TH/MM3 (150-450); RED BLOOD COUNT 4.17 MIL/MM3 (4.00-5.30); RED CELL DISTRIBUTION WIDTH 14.3 % (11.6-17.2); WHITE BLOOD COUNT 7.6 TH/MM3 (4.0-11.0)
[2016-10-24 13:29] LABS: HEMO FLAGS AUTO DIFF
[2016-10-24 13:54] LABS: POTASSIUM 4.7 MEQ/L (3.5-5.1)
[2016-10-24 13:58] LABS: PLATELET ESTIMATE SMEAR NORMAL (NORMAL); PLATELET MORPHOLOGY ENLARGED (NORMAL); SCAN/DIFF AUTO DIFF CONFIRMED
[2016-10-24] MEDS: hydrALAZINE HCL 25 MG TAB PO PRN ×2 (14:18→20:57)
--- NOTE | 2016-10-24 15:04 | EKG ---
Date Performed: 10/23/2016 Time Performed: 20:10:20 PTAGE: 46 years EKG: SINUS TACHYCARDIA Since previous tracing, no significant change noted ABNORMAL RHYTHM ECG PREVIOUS TRACING : 09/07/2016 01.18 DOCTOR: Monica Madera Interpretating Date/Time 10/24/2016 15:03:20
[2016-10-24] MEDS ORDERED: amLODIPine BESYLATE 5 MG TAB PO ONE (16:30)
[2016-10-24] MEDS ORDERED: NIFEdipine 30 MG SUSTAINED RELEASE TAB PO ONE (16:30)
[2016-10-25] VITALS (7 sets, daily range): BP systolic 96–180; BP diastolic 53–96; PULSE 79–86; RESP 17–20; TEMP 97.9–98.8; O2SAT 96–99
[2016-10-25] MEDS: CEPHALEXIN MONOHYDRATE 500 MG CAP PO SCH ×4 (00:52→18:13)
[2016-10-25] MEDS: FLUoxetine HCL 10 MG CAP PO SCH (08:40)
[2016-10-25] MEDS: METOPROLOL TARTRATE 25 MG TAB PO SCH (08:40)
[2016-10-25] MEDS: PHENYTOIN SODIUM 100 MG CAP PO SCH ×3 (08:41→18:13)
[2016-10-25] MEDS: levETIRAcetam 250 MG TAB PO SCH (08:41)
[2016-10-25] MEDS: VALSARTAN 160 MG TAB PO SCH (08:42)
[2016-10-25] MEDS: ATORVASTATIN 80 MG TAB PO SCH (08:42)
[2016-10-25 08:56] LABS: ALKALINE PHOSPHATASE 187 U/L (45-117); ALT (GPT) 38 U/L (10-53); ANION GAP 7 MEQ/L (5-15); AST (GOT) 29 U/L (15-37); BICARBONATE 27.4 MEQ/L (21.0-32.0); BLOOD UREA NITROGEN 29 MG/DL (7-18); CHLORIDE 110 MEQ/L (98-107); CREATINE KINASE 155 U/L (26-192); GLOMERULAR FILTRATION RATE 32 ML/MIN (>89); POTASSIUM 4.8 MEQ/L (3.5-5.1); SODIUM (NA) 144 MEQ/L (136-145); TOTAL BILIRUBIN ADULT 0.5 MG/DL (0.2-1.0)
[2016-10-25] MEDS ORDERED: NIFEdipine 30 MG SUSTAINED RELEASE TAB PO SCH (09:00)
[2016-10-25] MEDS ORDERED: amLODIPine BESYLATE 5 MG TAB PO SCH (09:00)
[2016-10-25] MEDS ORDERED: SODIUM CHLORID 0.9% 500 ML INJ 500 ML IV ONE (10:15)
--- NOTE | 2016-10-25 10:20 | HHI.PR ---
Subjective Remarks Follow-up for hypoglycemia. The patient is doing well this time. She has no acute complaints. She is eating breakfast. Has been tolerating oral intake. No vomiting or diarrhea. She has been ambulating in her bedroom with no difficulties. She would like to go home today. Her PCP is Dr. Cardoso. She feels like she was confused that admission because her blood sugar was low. She states that recently her blood sugars have been frequently running 4060 around 2 AM. She states she has been on her current Levemir dose and sliding scale for the past year with no recent adjustments. She's lost about 30 pounds intentionally over the past year. She states her A1c has dropped from 12 last year to 7.9 back in July. She states that she normally eats dinner around 7 PM and her last insulin doses around 6 PM, usually around 5 units of NovoLog. Objective Vitals Vital Signs Date Time Temp Pulse Resp B/P Pulse Ox O2 Delivery O2 Flow Rate FiO2 10/25/16 07:56 97.9 83 17 142/70 96 10/25/16 05:00 98.3 81 19 96/53 97 10/25/16 00:43 86 20 143/81 99 10/24/16 20:08 93 20 215/97 99 10/24/16 20:00 96 10/24/16 18:16 184/112 10/24/16 16:27 204/114 10/24/16 16:22 90 18 160/120 95 10/24/16 14:15 184/118 10/24/16 12:12 99.2 86 20 175/115 96 10/24/16 11:39 89 I/O 10/24/16 10/24/16 10/24/16 10/25/16 10/25/16 10/25/16 07:00 15:00 23:00 07:00 15:00 23:00 Intake Total 321 ml 221 ml Balance 321 ml 221 ml Intake Oral 221 ml 221 ml IV Total 100 ml # Voids 1 1 Result Diagram: 10/24/16 1249 10/25/16 0719 Imaging Last Impressions Head CT 10/23/16 1911 Signed Impressions: Service Date/Time: Sunday, October 23, 2016 19:53 - CONCLUSION: 1. Minimal left periventricular area of decreased attenuation consistent with possible demyelination or small vessel ischemic change. 2. No acute infarct, acute hemorrhage, mass effect or extra-axial fluid collections. Villa Calderon MD Chest X-Ray 10/23/16 0000 Signed Impressions: Service Date/Time: Sunday, October 23, 2016 20:28 - CONCLUSION: No acute disease. Villa Calderon MD Objective Remarks GENERAL: Well-developed well-nourished. In no acute distress. SKIN: Warm and dry. Left lateral walters with dressing CDI. HEENT: Normocephalic. Pupils equal and round. Mucous membranes pink and moist. CARDIOVASCULAR: Regular rate and rhythm. No murmur appreciated. RESPIRATORY: No accessory muscle use. Clear to auscultation. Breath sounds equal bilaterally. GASTROINTESTINAL: Abdomen soft, non-tender, nondistended. Bowel sounds x4. MUSCULOSKELETAL: No obvious deformities. No clubbing or cyanosis. No edema. NEUROLOGICAL: Awake and alert. No focal neurological deficits. Moves upper and lower extremities spontaneously. Normal speech. PSYCHIATRIC: Appropriate mood and affect; insight and judgment normal. A/P Problem List: (1) Acute encephalopathy ICD Code: G93.40 Status: Resolved (2) Hypoglycemia ICD Code: E16.2 Status: Acute (3) Lactic acidosis ICD Code: E87.2 Status: Resolved (4) HTN (hypertension) ICD Code: I10 Status: Acute (5) Seizure disorder ICD Code: G40.909 Status: Chronic Assessment and Plan Ms. Lang is a 46-year-old female with a known medical history of asthma, systemic lupus, hypertension, diabetes mellitus, history of CVA and seizure disorder who presented to the ED with altered mental status and a blood sugar of 24, and subtherapeutic Dilantin levels. Acute metabolic encephalopathy: suspect secondary to hypoglycemia vs hypertension. Resolved. - CT head reviewed, minimal left periventricular area of decreased attenuation consistent with possible demyelination or small vessel ischemic change. No acute infarct, hemorrhage, mass effect or extra-axial fluid collections. - Mental status improved, patient alert and oriented. - Control blood glucose and blood pressure as below Diabetes mellitus with hypoglycemia: Resolved. Suspect patient no longer needs current higher dose of insulin regimen due to weight loss. - Home insulin regimen was held - Status post D50 and IVF administration. - Monitor hypoglycemia, no further episodes. - Continue ACCU checks ACHS. - Hemoglobin A1c pending - Consulted consumer educator - Patient agrees to follow up with PCP after discharge. - Continue to hold home Levemir. Continue SSI coverage. Acute kidney injury: Creatinine has been labile, 1.6-1.9. Suspect possible hypertensive component vs dehydration. Tolerating oral intake. - Give additional IVF today - Follow-up BMP as outpatient - Encouraged PO fluids. - Avoid nephrotoxins. Normocytic normochromic anemia: Hemoglobin 11.8 at admission, 11.8 today. Stable. Subacute left lower extremity cellulitis: Treated outpatient with Keflex, will continue as prescribed. Hypertension, uncontrolled: Continue Valsartan 160 mg PO daily, Metoprolol 25 mg PO BID. Started Nifedipine. BP seems improved. Hydralazine as needed. Elevated liver enzymes: Alkaline phosphatase 218 and AST 90 on presentation. LFTs continued to improve on repeat labs. CPK now within normal limits. Dyslipidemia: Continue Atorvastatin 80 mg PO daily, history of CVA. Encourage outpatient follow up for elevated alkaline phosphatase and statin use. History of seizure disorder: Dilantin level subtherapeutic, resumed. Continue Keppra. DVT prophylaxis: SCDs/TEDs. Discharge Planning Hopefully discharge later today if blood pressure and blood sugar are stable. Discussed with the patient, wants to follow-up BMP and hemoglobin A1c as outpatient with PCP. 1640 blood glucoses have remained below 200, continue sliding scale coverage, DC basal insulin for now. Blood pressure was not optimally controlled today, increase nifedipine to 60 mg daily. Manual BP currently 162/93, can follow up with PCP for further medication adjustment. Discharged home in stable condition. Nahum Matamoros October 25, 2016 10:20
[2016-10-25 11:44] LABS: HEMOGLOBIN A1a 0.7 %; HEMOGLOBIN A1b 0.5 %; HEMOGLOBIN Ao 54.4 %; HEMOGLOBIN F 0.9 %; HEMOGLOBIN LA1C 1.6 %; HEMOGLOBIN P3 3.4 %
[2016-10-25] MEDS: SODIUM CHLORIDE 0.9% FLUSH 10 ML FLUSH IV FLUSH SCH (12:33)
[2016-10-25] MEDS: INSULIN ASPART SUPPLEMENTAL SCALE SQ SCH ×2 (13:22→18:13)
[2016-10-25] MEDS ORDERED: NOVOLOGSS SQ (13:47)
[2016-10-25] MEDS ORDERED: NIFEdipine 30 MG SUSTAINED RELEASE TAB PO ONE (14:00)
[2016-10-25] MEDS ORDERED: NIFE30TA8 PO (16:38)
[2016-10-26] MEDS ORDERED: NIFEdipine 30 MG SUSTAINED RELEASE TAB PO SCH (09:00)
== END 2016-10-25 20:14 | disposition home or self-care (01) ==
LOC: NEPE 18:41 → INTOOBSV 20:56 → NEDA 20:56 → NEPGCP 10-24 00:03 → UNDODISIN 10-25 19:29
PROVIDERS: ADMIT Internal Medicine; ATTEND Internal Medicine
DX: G93.41 Metabolic encephalopathy (principal); E11.649 Type 2 diabetes mellitus with hypoglycemia without coma; Z86.73 Personal history of transient ischemic attack (TIA), and cerebral infarction without residual deficits; J45.909 Unspecified asthma, uncomplicated; G40.909 Epilepsy, unspecified, not intractable, without status epilepticus; M32.9 Systemic lupus erythematosus, unspecified; E78.00 Pure hypercholesterolemia, unspecified; I10 Essential (primary) hypertension; R00.0 Tachycardia, unspecified; R65.20 Severe sepsis without septic shock; E87.2 Acidosis; Z79.4 Long term (current) use of insulin; N17.9 Acute kidney failure, unspecified; D64.9 Anemia, unspecified; L03.116 Cellulitis of left lower limb; Z79.899 Other long term (current) drug therapy; R74.8 Abnormal levels of other serum enzymes; Z91.14 Patient's other noncompliance with medication regimen; R94.31 Abnormal electrocardiogram [ECG] [EKG]
CPT/HCPCS: 70450; 71010; 80053; 80185; 81001; 82140; 82550; 82552; 82948; 83036; 83605; 83690; 84484; 85025; 85610; 85730; 87040; 93005; 96374; 99291; G0378; J1815; J2405; J3370; J7030; J7040; J7050; 80048

== ENCOUNTER 2016-11-08 19:50 | Inpatient (IN) | payer MEDICAID ==
[~2016-11-08] VITALS: Ht 165.1 cm; Wt 60.8 kg
[~2016-11-08 19:50] MED LIST changes: +CEPH500T PO; +FLUO10CA5 PO; -LANTUS2P SQ; -LEVA250T PO; +LEVE250T5 PO; -LEVE500 PO; +METO25TA3 PO; +NIFE30TA8 PO; +NOVOLOGSS SQ
[2016-11-08 19:57] VITALS: BP 183/104; PULSE 104; RESP 22; TEMP 98.4; O2SAT 96
[2016-11-08] MEDS ORDERED: SODIUM CHLORIDE 0.9% FLUSH 10 ML FLUSH IVF PRN (20:00)
[2016-11-08] MEDS ORDERED: SODIUM CHLOR 0.9% 1000 ML INJ 1,000 ML IV ONE ×2 (20:00→20:30)
[2016-11-08 20:03] LABS: MEAN CORPUSCULAR HGB CONC 28.9 % (32.0-36.0)
[2016-11-08 20:08] VITALS: O2SAT 95
--- NOTE | 2016-11-08 20:09 | PD ---
HPI Chief Complaint: General Weakness Time Seen by Provider: 20:02 Travel History International Travel<30 days: No Contact w/Intl Traveler<30days: No Traveled to known affect area: No History of Present Illness HPI 46-year-old Afro-[place] female with history of type 1 diabetes requiring insulin and history of seizure disorder is brought in via EMS with reports of weakness, change of mental status, and hyperglycemia. Patient reportedly takes NovoLog for her sugars and had a sugar this morning of 140. EMS and fire department were called to the residence as the patient was acting strangely according to her family, and blood sugar reading was "high", meaning was over 600. Patient is alert and oriented but is somewhat uncooperative and confused. There is no mention of a seizure, or recent illness, but history is limited. Patient has a history of MRSA, allergies to adhesives, aspirin, Levemir, Macrobid, penicillin, and sulfa. PFSH Past Medical History Medical History: Unable to Obtain Arthritis: Yes Asthma: Yes Autoimmune Disease: Yes (LUPUS) Blood Disorders: Yes Anxiety: No Depression: No Heart Rhythm Problems: No Cancer: No Cardiovascular Problems: Yes High Cholesterol: Yes Chemotherapy: No Chest Pain: No Congestive Heart Failure: No COPD: No Cerebrovascular Accident: Yes (MAY 2013) Diabetes: Yes Diminished Hearing: No Endocrine: Yes Gastrointestinal Disorders: Yes Genitourinary: Yes Hypertension: Yes Immune Disorder: Yes Kidney Stones: Yes Musculoskeletal: Yes Neurologic: Yes Psychiatric: No Reproductive: No Respiratory: Yes Radiation Therapy: No Renal Failure: Yes (Stage II) Seizures: Yes Sickle Cell Disease: No Sleep Apnea: No Thyroid Disease: No : 1 Para: 1 Past Surgical History Abdominal Surgery: Yes Cardiac Surgery: No Section: Yes Cholecystectomy: Yes Ear Surgery: No Endocrine Surgery: No Eye Surgery: No Genitourinary Surgery: No Gynecologic Surgery: Yes ( ) Hysterectomy: Yes Oral Surgery: No Thoracic Surgery: No Other Surgery: Yes (LEFT FOOT WOUND MECHANICAL DEBRIDEMENT) Social History Alcohol Use: Yes (OCCASIONAL/HOLIDAYS) Tobacco Use: No Substance Use: No Allergies-Medications (Allergen,Severity, Reaction): Coded Allergies: Aspirin (Verified Allergy, Severe, 09/06/16) RASH Levemir (Verified Allergy, Severe, Sweats, funny feeling, mood swings, daze, 09/06/16) Penicillin (Verified Allergy, Severe, 09/06/16) Sulfa (Verified Allergy, Severe, 09/06/16) RASH Adhesives (Verified Allergy, Unknown, 09/06/16) Macrobid (Unverified Allergy, Unknown, 09/06/16) *MDRO Multi-Drug Resistant Organism (Unverified Adverse Reaction, Unknown , 10/25/16) MRSA 2013 MRSA PCR Screen POSITIVE on 01/22/16 Reported Meds & Prescriptions Reported Meds & Active Scripts Active Nifedipine ER 24 HR (Nifedipine) 30 Mg Tab 60 Mg PO DAILY Novolog Inj (Insulin Aspart) 100 Unit/Ml Inj 1 Units SQ ACHS SLIDING SCALE 30 Days Dilantin (Phenytoin Extended) 100 Mg Cap 100 Mg PO TID Reported Cephalexin 500 Mg Tab 500 Mg PO Q6H Fluoxetine (Fluoxetine HCl) 10 Mg Cap 10 Mg PO DAILY Metoprolol Tartrate 25 Mg Tab 25 Mg PO BID Levetiracetam 250 Mg Tab 250 Mg PO BID Atorvastatin (Atorvastatin Calcium) 80 Mg Tab 80 Mg PO DAILY Valsartan 160 Mg Tab 160 Mg PO DAILY Review of Systems ROS Limitations: Clinical Condition, Altered Mental Status, Uncooperative, Poor Historian Except as stated in HPI: all other systems reviewed are Neg General / Constitutional: No: Fever Eyes: No: Visual changes HENT: No: Headaches Cardiovascular: No: Chest Pain or Discomfort Respiratory: No: Shortness of Breath Gastrointestinal: No: Abdominal Pain Genitourinary: No: Dysuria Musculoskeletal: No: Pain Skin: No Rash Neurologic: No: Weakness Psychiatric: No: Depression Endocrine: No: Polydipsia Hematologic/Lymphatic: No: Easy Bruising Physical Exam Exam Limitations: Altered Mental Status, Poor Historian, Uncooperative, Combative Narrative GENERAL: Patient appears confused and uncooperative but is redirectable SKIN: Warm and dry. Mild pallor. Poor turgor with tenting present. HEAD: Atraumatic. Normocephalic. EYES: Pupils equal and round. No scleral icterus. No injection or drainage. ENT: No nasal bleeding or discharge. Mucous membranes pink and dry. Pharynx is clear. NECK: Trachea midline. Supple and nontender. CARDIOVASCULAR: Regular rate and rhythm. RESPIRATORY: No accessory muscle use. Clear to auscultation. Breath sounds equal bilaterally. GASTROINTESTINAL: Abdomen soft, non-tender, nondistended. Hepatic and splenic margins not palpable. MUSCULOSKELETAL: Extremities without clubbing, cyanosis, or edema. No obvious deformities. NEUROLOGICAL: Awake and alert. No obvious cranial nerve deficits. Motor grossly within normal limits. Five out of 5 muscle strength in the arms and legs. Normal speech. PSYCHIATRIC: Patient appears somewhat confused but is redirectable. Further eval is not able to be performed at this time. Data Data Last Documented VS Vital Signs Date Time Temp Pulse Resp B/P Pulse Ox O2 Delivery O2 Flow Rate FiO2 11/08/16 20:38 97.4 102 22 132/62 100 Room Air Orders Vascular Access Team Consult/P PRN (11/08/16 19:59) Vascular Poc Ultrasound (11/08/16 ) Electrocardiogram (11/08/16 20:00) Complete Blood Count With Diff (11/08/16 20:00) Comprehensive Metabolic Panel (11/08/16 20:00) Magnesium (Mg) (11/08/16 20:00) Phosphorus (Po4) (11/08/16 20:00) Beta Hydroxybutyrate (Acetone) (11/08/16 20:00) Lactic Acid (11/08/16 20:00) Urinalysis - C+S If Indicated (11/08/16 20:00) Blood Culture (11/08/16 20:00) Chest, Single Ap (11/08/16 20:00) Blood Gas Venous (Vbg) (11/08/16 20:00) Ecg Monitoring (11/08/16 20:00) Iv Access Insert/Monitor (11/08/16 20:00) Oximetry (11/08/16 20:00) NPO (11/08/16 20:00) Sodium Chlor 0.9% 1000 Ml Inj (Ns 1000 M (11/08/16 20:00) Sodium Chlor 0.9% 1000 Ml Inj (Ns 1000 M (11/08/16 20:30) Sodium Chloride 0.9% Flush (Ns Flush) (11/08/16 20:00) Lipase (11/08/16 20:00) Urine Culture (11/08/16 20:10) Aztreonam Inj (Azactam Inj) (11/08/16 20:42) Gentamicin Inj (Gentamicin Inj) (11/08/16 20:42) Lorazepam Inj (Ativan Inj) (11/08/16 21:15) Lorazepam Inj (Ativan Inj) (11/08/16 21:04) Ct Brain W/O Iv Contrast(Rout) (11/08/16 21:12) Iron Worker Foreman / Telemetry GERMÁN.Q8H (11/08/16 21:12) ^ Insert Iv (11/08/16 21:12) Diet Npo (11/09/16 Breakfast) Dext 5%-Nacl 0.9% 1000 Ml Inj (D5w-Ns 10 (11/08/16 21:12) Insulin Human Regular Inj (Novolin R Inj (11/08/16 21:15) Insulin Regular (Iv Infusion) (Novolin R (11/08/16 21:15) Potassium Chlor 20 Meq Premix (Kcl 20 Me (11/08/16 21:15) Potassium Chlor 20 Meq Premix (Kcl 20 Me (11/08/16 21:15) Potassium Chlor 20 Meq Premix (Kcl 20 Me (11/08/16 21:15) Potassium Chlor 20 Meq Premix (Kcl 20 Me (11/08/16 21:15) Sodium Bicarbonate 8.4% Inj (Sodium Bica (11/08/16 21:15) Sodium Bicarbonate 8.4% Inj (Sodium Bica (11/08/16 21:15) Sodium Phosphate Inj (Sodium Phosphate I (11/08/16 21:15) Hemoglobin (Hgb) A1c (11/08/16 21:12) Basic Metabolic Panel (Bmp) (11/09/16 02:12) Basic Metabolic Panel (Bmp) (11/09/16 08:12) Basic Metabolic Panel (Bmp) (11/09/16 14:12) Basic Metabolic Panel (Bmp) (11/09/16 20:12) Magnesium (Mg) (11/09/16 02:12) Magnesium (Mg) (11/09/16 08:12) Magnesium (Mg) (11/09/16 14:12) Magnesium (Mg) (11/09/16 20:12) Phosphorus (Po4) (11/09/16 02:12) Phosphorus (Po4) (11/09/16 08:12) Phosphorus (Po4) (11/09/16 14:12) Phosphorus (Po4) (11/09/16 20:12) Beta Hydroxybutyrate (Acetone) (11/09/16 08:12) Beta Hydroxybutyrate (Acetone) (11/09/16 20:12) Urinary Catheter Insert/Apply (11/08/16 21:15) Labs Laboratory Tests Test 11/08/16 11/08/16 11/08/16 11/08/16 20:10 20:13 20:24 20:26 Urine Color LIGHT-YELLOW Urine Turbidity HAZY Urine pH 5.5 Urine Specific [place] 1.019 Urine Protein 100 mg/dL Urine Glucose (UA) 1000 mg/dL Urine Ketones 10 mg/dL Urine Occult Blood SMALL Urine Nitrite NEG Urine Bilirubin NEG Urine Urobilinogen LESS THAN 2.0 MG/DL Urine Leukocyte Esterase LARGE Urine RBC 10 /hpf Urine WBC 18 /hpf Urine Squamous Epithelial 13 /hpf Cells Urine Bacteria MOD /hpf Microscopic Urinalysis Comment CULTURE INDICATED Sodium Level 129 MEQ/L Potassium Level 6.0 MEQ/L Chloride Level 89 MEQ/L Carbon Dioxide Level 13.8 MEQ/L Anion Gap 26 MEQ/L Blood Urea Nitrogen 64 MG/DL Creatinine 4.23 MG/DL Estimat Glomerular Filtration 14 ML/MIN Rate Random Glucose 1464 MG/DL Calcium Level 7.8 MG/DL Phosphorus Level 5.0 MG/DL Magnesium Level 2.9 MG/DL Total Bilirubin 0.4 MG/DL Aspartate Amino Transf 17 U/L (AST/SGOT) Alanine Aminotransferase 20 U/L (ALT/SGPT) Alkaline Phosphatase 243 U/L Total Protein 6.7 GM/DL Albumin 3.0 GM/DL Lipase 65 U/L B-Hydroxybutyrate 10.52 MMOL/L White Blood Count 17.3 TH/MM3 Red Blood Count 3.72 MIL/MM3 Hemoglobin 10.6 GM/DL Hematocrit 36.8 % Mean Corpuscular Volume 98.8 FL Mean Corpuscular Hemoglobin 28.6 PG Mean Corpuscular Hemoglobin 28.9 % Concent Red Cell Distribution Width 14.4 % Platelet Count 181 TH/MM3 Mean Platelet Volume 13.0 FL Neutrophils (%) (Auto) 92.6 % Lymphocytes (%) (Auto) 2.9 % Monocytes (%) (Auto) 4.2 % Eosinophils (%) (Auto) 0.0 % Basophils (%) (Auto) 0.3 % Neutrophils # (Auto) 16.0 TH/MM3 Lymphocytes # (Auto) 0.5 TH/MM3 Monocytes # (Auto) 0.7 TH/MM3 Eosinophils # (Auto) 0.0 TH/MM3 Basophils # (Auto) 0.0 TH/MM3 CBC Comment DIFF FINAL Differential Comment Lactic Acid Level 2.5 mmol/L Blood Gas Puncture Site IV Blood Gas Patient Temperature 98.6 Venous Blood pH 7.21 Venous Blood Partial Pressure 39 mmHg CO2 Venous Blood Partial Pressure 44 mmHg O2 Venous Blood HCO3 15 mmol/L Venous Blood Oxygen Saturation 69 % Venous Blood Oxygen Content 10.3 Vol % Venous Blood Base Excess -11.2 mmol/L Oxygen Delivery Device ROOM AIR MDM Medical Decision Making Medical Screen Exam Complete: Yes Emergency Medical Condition: Yes Medical Record Reviewed: Yes Differential Diagnosis Hyperglycemia. Electrolyte imbalance. Possible sepsis. Dehydration. Confusion. Encephalopathy. Narrative Course Patient appears medically stable at time of exam. Labs ordered including CBC, CMP, lipase, blood cultures 2, lactic acid, venous blood gas, urinalysis, magnesium and phosphorus. IV access is obtained, and the patient is given 2 L normal saline fluid. EKG and chest x-ray are ordered. EKG shows sinus tachycardia without significant ST-T changes. This is reviewed with Dr. Williamson. CBC shows leukocytosis of 17.3 with neutrophil percentage of 92.6. Venous blood gas shows a VBG pH of 7.21, PCO2 of 39, PO2 of 44, and HCO3 of 15. B-hydroxybutyrate is high at 10.52. Chemistry shows sodium 129, potassium 6.0, chloride of 89, carbon dioxide of 13.8, anion gap of 26, BUN of 64, creatinine of 1.23, GFR estimated at 14, random glucose of 1464. Lactic acid is elevated at 2.5, calcium is low 7.8, phosphorus 5.0, magnesium 2.9, alkaline phosphatase 243, total protein 6.7, albumin of 3.0, lipase of 65. Urinalysis shows protein of 100, urine glucose of 1000, ketones of 10, large leukocyte esterase with 18 wbc's per high-power field and moderate bacteria. Patient is discussed and examined with Dr. Williamson. Patient is given Azactam 1000 mg IV as well as gentamicin 310 mg IV based on her weight. Patient is given 1 mg lorazepam IV for her agitation. Dr. Williamson orders CT of the brain as well as Maurer catheter. Patient is given 6 units regular insulin IV, an IV insulin drip was ordered by Dr. Williamson. 2115 hrs. call was placed to Dr. Kruse the growth media mixer mushroom on-call and the patient is discussed. Sepsis Criteria SIRS Criteria (2 or more): Heart rate over 90, RR > 20 or PaCO2 < 32, WBC > 50720, < 4000 or > 10% bands Sepsis Criteria (SIRS+source): Infect source susp/known Severe Sepsis (+one): Lactate >2, Acute Oliguria/Renal Failure Criteria Outcome: Meets sepsis criteria Diagnosis Primary Impression: Acute kidney failure Qualified Code: N17.9 - Acute renal failure, unspecified acute renal failure type Additional Impressions: DM (diabetes mellitus), type 1 with hyperosmolarity Qualified Code: E10.69 - Type 1 diabetes mellitus with hyperosmolarity without coma Sepsis due to urinary tract infection Admitting Information Admitting Physician Requests: Admit Condition: Stable Adonay Andrew November 08, 2016 20:09
[2016-11-08 20:23] LABS: BASOPHIL % 0.3 % (0.0-2.0); HEMATOCRIT 36.8 % (35.0-46.0); HEMO FLAGS DIFF FINAL; LYMPH % 2.9 % (9.0-44.0); LYMPHOCYTE # 0.5 TH/MM3 (1.0-4.8); MEAN CELL VOLUME 98.8 FL (80.0-100.0); MEAN CORPUSCULAR HEMOGLOBIN 28.6 PG (27.0-34.0); MONO % 4.2 % (0.0-8.0); NEUT % 92.6 % (16.0-70.0); PLATELET COUNT 181 TH/MM3 (150-450); RED BLOOD COUNT 3.72 MIL/MM3 (4.00-5.30); RED CELL DISTRIBUTION WIDTH 14.4 % (11.6-17.2); WHITE BLOOD COUNT 17.3 TH/MM3 (4.0-11.0)
[2016-11-08 20:29] LABS: BACTERIA, URINE MOD /hpf; BLOOD, URINE SMALL (NEG); COMMENT (UR) CULTURE INDICATED; CULTURE IF INDICATED CULTURE INDICATED; GLUCOSE,URINE 1000 mg/dL (NEG); KETONE, URINE 10 mg/dL (NEG); NITRITE,URINE NEG (NEG); PH, URINE 5.5 (5.0-8.5); SQUAMOUS EPITHELIAL CELL URINE 13 /hpf (0-5); URINE COLOR LIGHT-YELLOW (YELLW/STRAW)
[2016-11-08 20:31] LABS: BLOOD GAS VENOUS BASE EXCESS -11.2 mmol/L (-2-2); BLOOD GAS VENOUS HCO3 15 mmol/L (22-26); BLOOD GAS VENOUS O2 CONTENT 10.3 Vol % (9.0-17.0); BLOOD GAS VENOUS O2 HGB SAT 69 % (70-76); BLOOD GAS VENOUS PCO2 39 mmHg (44-48); BLOOD GAS VENOUS PO2 44 mmHg (35-40); BLOOD GAS VENOUS pH 7.21 (7.360-7.400); TEMP CORR TO 98.6
[2016-11-08 20:32] LABS: CRITICAL VALUE YES; DRAW SITE IV; OXYGEN DEVICE ROOM AIR; STAT YES
[2016-11-08 20:38] VITALS: BP 132/62; PULSE 102; RESP 22; TEMP 97.4; O2SAT 100
[2016-11-08] MEDS ORDERED: SODIUM CHLORIDE 0.9% IV STA (20:42)
[2016-11-08] MEDS ORDERED: AZTREONAM INJ 1,000 MG in SODIUM CHLORIDE 0.9% INJ 100 ML IV STA (20:42)
[2016-11-08] MEDS ORDERED: GENTAMICIN IV STA (20:42)
--- NOTE | 2016-11-08 20:51 | RADRPT ---
EXAM DATE/TIME: 11/08/2016 20:37 [facility] COMPARISON: CHEST SINGLE AP, October 23, 2016, 20:28. INDICATIONS : Fever. MEDICAL HISTORY : Unobtainable SURGICAL HISTORY : Unobtainable ENCOUNTER: Initial ACUITY: 1 day PAIN SCORE: 0/10 LOCATION: Bilateral chest FINDINGS: A single view of the chest demonstrates the lungs to be symmetrically aerated without evidence of mas s, infiltrate or effusion. The cardiomediastinal contours are unremarkable. Osseous structures are intact. CONCLUSION: No acute disease. Villa Calderon MD on November 08, 2016 at 20:50 Board Certified Radiologist. This report was verified electronically.
[2016-11-08] MEDS ORDERED: LORazepam 2 MG/ML VIAL ONE (21:04)
[2016-11-08 21:08] LABS: ALT (GPT) 20 U/L (10-53); ANION GAP 26 MEQ/L (5-15); AST (GOT) 17 U/L (15-37); BICARBONATE 13.8 MEQ/L (21.0-32.0); BLOOD UREA NITROGEN 64 MG/DL (7-18); CHLORIDE 89 MEQ/L (98-107); GLOMERULAR FILTRATION RATE 14 ML/MIN (>89); MAGNESIUM 2.9 MG/DL (1.5-2.5); SODIUM (NA) 129 MEQ/L (136-145); TOTAL BILIRUBIN ADULT 0.4 MG/DL (0.2-1.0)
[2016-11-08 21:10] LABS: ALKALINE PHOSPHATASE 243 U/L (45-117); BETA-HYDROXYBUTYRATE 10.52 MMOL/L (0.00-0.39)
--- NOTE | 2016-11-08 21:11 | PD ---
Physical Exam Narrative General: The patient is a well-developed well-nourished female, confused, agitated on my initial evaluation. Head and Neck exam: Head is normocephalic atraumatic. Eyes: Pupils are equal round and reactive to light. Nose: Midline septum with pink mucous membranes Mouth: Dentition unremarkable. Moist mucus membranes. Posterior oropharynx is not erythematous. No tonsillar hypertrophy. Uvula midline. Airway patent. Neck: No palpable lymphadenopathy. No nuchal rigidity. No thyromegaly. Cardiovascular: Sinus tachycardia in the low 100 without murmurs, gallops, or rubs. No pulse deficit to the extremities on simultaneous auscultation and palpation of her radial artery. Lungs: Clear to auscultation bilaterally. No wheezes, rhonchi, or rales. Abdomen: Soft, without tenderness to palpation in all 4 quadrants of the abdomen. No guarding, rebound, or rigidity. Normal bowel sounds are audible. No tenderness on palpation of McBurney's point. Negative Pena's sign. Extremities: No clubbing, cyanosis, or edema. 2+ pulses in all 4 extremities. No calf tenderness on palpation. Back: No spinous process tenderness to palpation. No costovertebral angle tenderness to palpation. Neurologic Exam: The patient is uncooperative with formal neurologic testing. The patient appears delirious on examination. The patient has intermittent twitching of the left side of her face suspicious for possible underlying seizure activity. The patient is moving all extremities equally with 5 over 5 strength with intact sensation over all dermatomes. Skin Exam: No rash noted. Intact skin that is warm and dry. Data Data Last Documented VS Vital Signs Date Time Temp Pulse Resp B/P Pulse Ox O2 Delivery O2 Flow Rate FiO2 11/08/16 22:04 103 20 193/86 100 Nasal Cannula 2 11/08/16 20:38 97.4 Orders Vascular Access Team Consult/P PRN (11/08/16 19:59) Vascular Poc Ultrasound (11/08/16 ) Electrocardiogram (11/08/16 20:00) Complete Blood Count With Diff (11/08/16 20:00) Comprehensive Metabolic Panel (11/08/16 20:00) Magnesium (Mg) (11/08/16 20:00) Phosphorus (Po4) (11/08/16 20:00) Beta Hydroxybutyrate (Acetone) (11/08/16 20:00) Lactic Acid (11/08/16 20:00) Urinalysis - C+S If Indicated (11/08/16 20:00) Blood Culture (11/08/16 20:00) Chest, Single Ap (11/08/16 20:00) Blood Gas Venous (Vbg) (11/08/16 20:00) Ecg Monitoring (11/08/16 20:00) Iv Access Insert/Monitor (11/08/16 20:00) Oximetry (11/08/16 20:00) NPO (11/08/16 20:00) Sodium Chlor 0.9% 1000 Ml Inj (Ns 1000 M (11/08/16 20:00) Sodium Chlor 0.9% 1000 Ml Inj (Ns 1000 M (11/08/16 20:30) Sodium Chloride 0.9% Flush (Ns Flush) (11/08/16 20:00) Lipase (11/08/16 20:00) Urine Culture (11/08/16 20:10) Aztreonam Inj (Azactam Inj) (11/08/16 20:42) Gentamicin Inj (Gentamicin Inj) (11/08/16 20:42) Lorazepam Inj (Ativan Inj) (11/08/16 21:15) Lorazepam Inj (Ativan Inj) (11/08/16 21:04) Ct Brain W/O Iv Contrast(Rout) (11/08/16 21:12) Roving Technician / Telemetry GERMÁN.Q8H (11/08/16 21:12) ^ Insert Iv (11/08/16 21:12) Diet Npo (11/09/16 Breakfast) Dext 5%-Nacl 0.9% 1000 Ml Inj (D5w-Ns 10 (11/08/16 21:12) Insulin Human Regular Inj (Novolin R Inj (11/08/16 21:15) Insulin Regular (Iv Infusion) (Novolin R (11/08/16 21:15) Potassium Chlor 20 Meq Premix (Kcl 20 Me (11/08/16 21:15) Potassium Chlor 20 Meq Premix (Kcl 20 Me (11/08/16 21:15) Potassium Chlor 20 Meq Premix (Kcl 20 Me (11/08/16 21:15) Potassium Chlor 20 Meq Premix (Kcl 20 Me (11/08/16 21:15) Sodium Bicarbonate 8.4% Inj (Sodium Bica (11/08/16 21:15) Sodium Bicarbonate 8.4% Inj (Sodium Bica (11/08/16 21:15) Sodium Phosphate Inj (Sodium Phosphate I (11/08/16 21:15) Hemoglobin (Hgb) A1c (11/08/16 21:12) Basic Metabolic Panel (Bmp) (11/09/16 02:12) Basic Metabolic Panel (Bmp) (11/09/16 08:12) Basic Metabolic Panel (Bmp) (11/09/16 14:12) Magnesium (Mg) (11/09/16 02:12) Magnesium (Mg) (11/09/16 08:12) Magnesium (Mg) (11/09/16 14:12) Phosphorus (Po4) (11/09/16 02:12) Phosphorus (Po4) (11/09/16 08:12) Phosphorus (Po4) (11/09/16 14:12) Beta Hydroxybutyrate (Acetone) (11/09/16 08:12) Urinary Catheter Insert/Apply (11/08/16 21:15) Admit Order (Ed Use Only) (11/08/16 22:04) Labs Laboratory Tests Test 11/08/16 11/08/16 11/08/16 11/08/16 20:10 20:13 20:24 20:26 Urine Color LIGHT-YELLOW Urine Turbidity HAZY Urine pH 5.5 Urine Specific [place] 1.019 Urine Protein 100 mg/dL Urine Glucose (UA) 1000 mg/dL Urine Ketones 10 mg/dL Urine Occult Blood SMALL Urine Nitrite NEG Urine Bilirubin NEG Urine Urobilinogen LESS THAN 2.0 MG/DL Urine Leukocyte Esterase LARGE Urine RBC 10 /hpf Urine WBC 18 /hpf Urine Squamous Epithelial 13 /hpf Cells Urine Bacteria MOD /hpf Microscopic Urinalysis Comment CULTURE INDICATED Sodium Level 129 MEQ/L Potassium Level 6.0 MEQ/L Chloride Level 89 MEQ/L Carbon Dioxide Level 13.8 MEQ/L Anion Gap 26 MEQ/L Blood Urea Nitrogen 64 MG/DL Creatinine 4.23 MG/DL Estimat Glomerular Filtration 14 ML/MIN Rate Random Glucose 1464 MG/DL Calcium Level 7.8 MG/DL Phosphorus Level 5.0 MG/DL Magnesium Level 2.9 MG/DL Total Bilirubin 0.4 MG/DL Aspartate Amino Transf 17 U/L (AST/SGOT) Alanine Aminotransferase 20 U/L (ALT/SGPT) Alkaline Phosphatase 243 U/L Total Protein 6.7 GM/DL Albumin 3.0 GM/DL Lipase 65 U/L B-Hydroxybutyrate 10.52 MMOL/L White Blood Count 17.3 TH/MM3 Red Blood Count 3.72 MIL/MM3 Hemoglobin 10.6 GM/DL Hematocrit 36.8 % Mean Corpuscular Volume 98.8 FL Mean Corpuscular Hemoglobin 28.6 PG Mean Corpuscular Hemoglobin 28.9 % Concent Red Cell Distribution Width 14.4 % Platelet Count 181 TH/MM3 Mean Platelet Volume 13.0 FL Neutrophils (%) (Auto) 92.6 % Lymphocytes (%) (Auto) 2.9 % Monocytes (%) (Auto) 4.2 % Eosinophils (%) (Auto) 0.0 % Basophils (%) (Auto) 0.3 % Neutrophils # (Auto) 16.0 TH/MM3 Lymphocytes # (Auto) 0.5 TH/MM3 Monocytes # (Auto) 0.7 TH/MM3 Eosinophils # (Auto) 0.0 TH/MM3 Basophils # (Auto) 0.0 TH/MM3 CBC Comment DIFF FINAL Differential Comment Lactic Acid Level 2.5 mmol/L Blood Gas Puncture Site IV Blood Gas Patient Temperature 98.6 Venous Blood pH 7.21 Venous Blood Partial Pressure 39 mmHg CO2 Venous Blood Partial Pressure 44 mmHg O2 Venous Blood HCO3 15 mmol/L Venous Blood Oxygen Saturation 69 % Venous Blood Oxygen Content 10.3 Vol % Venous Blood Base Excess -11.2 mmol/L Oxygen Delivery Device ROOM AIR [facility] Medical Record Reviewed: Yes Supervised Visit with YOSEPH: Yes Interpretation(s) Last Impressions Head CT 11/08/162111 Signed Impressions: Service Date/Time: Tuesday, November 08, 2016 22:27 - CONCLUSION: No acute disease. Villa Calderon MD Chest X-Ray 11/08/161999 Signed Impressions: Service Date/Time: Tuesday, November 08, 2016 20:37 - CONCLUSION: No acute disease. Villa Calderon MD Narrative Course I, Dr. Williamson, have reviewed the advance practice practitioner's documentation and am in agreement, met with the patient face to face, made the diagnosis, and the medical decision making was done by me. The patient was initially evaluated by Adonay. Please see his complete history and physical. *My assessment and Findings: The patient is a 46-year-old female who presents to [facility] emergency Department with a history of altered mentation and poor by mouth intake for the last few days. The patient was noted to have a critical high blood sugar prior to arrival. The patient is difficult to obtain history from due to confusion. The patient arrives with her mother who also has a limited understanding of the patient's medical conditions. The patient reportedly has a history of diabetes mellitus and seizure disorder. The patient is on Keppra home. The patient arrives in a somewhat delirious state on initial examination with findings suspicious for underlying seizure activity. During the course of the patients emergency department visit, the patients history, examination, and differential diagnosis were reviewed with the patient. The patient had IV access obtained and blood work sent for analysis. The patient was placed on a quality assurance monitor body with oximetry and blood pressure monitoring. An EKG was done on arrival. The patient's EKG shows a sinus tachycardia with a short NC interval, heart rate of 103, nonspecific ST T-wave abnormalities, no acute ST segment elevation. QRS duration is 85 ms, QTC 423 ms. The patient was initially provided normal saline IV fluids The patients laboratory studies were reviewed and remarkable for a white count of 17.3, hemoglobin 10.6, platelets 181 with neutrophils 92.6, CMP is remarkable for a sodium of 129, potassium 6.0, CO2 13.8, BUN 64, creatinine 4.23 , glucose 1464, lactic acid 2.5, alkaline phosphatase 243, lipase 65. The patient's ABG revealed acidosis. The patient is suspected to be in DKA. The patient was started on an IV bolus of regular insulin 6 units based on her weight and then to follow an insulin drip. Urinalysis showed evidence of infection with small occult blood, large leukocyte esterase, RBCs 10, WBCs 18, moderate bacteria. The patient was started on IV antibiotic. Radiology studies were reviewed and remarkable for a chest x-ray that showed no acute abnormality. CT scan of the brain showed no acute abnormality. The patients results were discussed with the patient, including the plan of care. I explained that further testing and/ or monitoring is indicated based on the patients history, examination, and/ or laboratory findings. Therefore, I recommended admission for additional evaluation. The patient expressed understanding and was agreeable with this plan. The patient was admitted to the hospital in critical condition and sent to a bed under the care of the wrapper opener. Diagnosis Primary Impression: DM (diabetes mellitus), type 1 with hyperosmolarity Qualified Code: E10.69 - Type 1 diabetes mellitus with hyperosmolarity without coma Additional Impression: Acute kidney failure Qualified Code: N17.9 - Acute renal failure, unspecified acute renal failure type Admitting Information Admitting Physician Requests: Admit Condition: Stable Kassandra Williamson MD November 08, 2016 21:10
[2016-11-08] MEDS ORDERED: DEXT 5%-NACL 0.9% 1000 ML INJ 1,000 ML IV SCH ×2 (21:12→22:46)
[2016-11-08] MEDS ORDERED: INSULIN REGULAR (IV INFUSION) 100 UNITS in SODIUM CHLORIDE 0.9% INJ 99 ML IV SCH ×2 (21:15→23:00)
[2016-11-08] MEDS ORDERED: INSULIN HUMAN REGULAR 1,000 UNITS/10 ML VIAL IV PUSH ONE ×2 (21:15)
[2016-11-08] MEDS ORDERED: LORazepam 2 MG/ML VIAL IV PUSH ONE (21:15)
[2016-11-08] MEDS ORDERED: SODIUM PHOSPHATE INJ 15 MMOL in SODIUM CHLORIDE 0.9% INJ 100 ML IV PRN ×2 (21:15→23:00)
[2016-11-08] MEDS ORDERED: POTASSIUM CHLOR 20 MEQ PREMIX 100 ML IV PRN ×10 (21:15→23:00)
[2016-11-08] MEDS ORDERED: SODIUM BICARBONATE 8.4% SOLN 50 MEQ/50 ML VIAL IV PRN ×4 (21:15→23:00)
[2016-11-08 22:04] VITALS: BP 193/86; PULSE 103; RESP 20; O2SAT 100
--- NOTE | 2016-11-08 22:39 | RADRPT ---
EXAM DATE/TIME: 11/08/2016 22:27 [place] COMPARISON: CT BRAIN W/O CONTRAST, October 23, 2016, 19:53. INDICATIONS : Altered mental status. RADIATION DOSE: 34.71 CTDIvol (mGy) MEDICAL HISTORY : Cerebrovascular disease. Hypertension. Diabetes mellitus type 2.Renal failure SURGICAL HISTORY : Cholecystectomy. Hysterectomy. ENCOUNTER: Initial ACUITY: 1 day PAIN SCALE: Non-responsive LOCATION: cranial TECHNIQUE: Multiple contiguous axial images were obtained of the head. Using automated exposure control and adj ustment of the mA and/or kV according to patient size, radiation dose was kept as low as reasonably a chievable to obtain optimal diagnostic quality images. FINDINGS: CEREBRUM: The ventricles are normal for age. No evidence of midline shift, mass lesion, hemorrhage or acute in farction. No extra-axial fluid collections are seen. POSTERIOR FOSSA: The cerebellum and brainstem are intact. The 4th ventricle is midline. The cerebellopontine angle i s unremarkable. EXTRACRANIAL: The visualized portion of the orbits is intact. SKULL: The calvaria is intact. No evidence of skull fracture. CONCLUSION: No acute disease. Villa Calderon MD on November 08, 2016 at 22:36 Board Certified Radiologist. This report was verified electronically.
[2016-11-08 22:40] VITALS: BP 163/74; PULSE 104; RESP 20; O2SAT 100
[2016-11-08] MEDS: SODIUM CHLOR 0.9% 1000 ML INJ 1,000 ML IV SCH (22:46)
[2016-11-08] MEDS ORDERED: SODIUM CHLOR 0.9% 1000 ML INJ 1,000 ML IV SCH (22:46)
[2016-11-08] MEDS ORDERED: CLON0.1T PO (22:47)
[2016-11-08] MEDS ORDERED: CEPH500C PO (22:47)
[2016-11-08] MEDS ORDERED: FLUO10TA PO (22:47)
[2016-11-08] MEDS ORDERED: LEVE500T8 PO (22:47)
[2016-11-08] MEDS ORDERED: CHLORHEXIDINE GLUCONATE 2 % 1 PACK (2 CLOTHS) TOP PRN (23:00)
[2016-11-08] MEDS ORDERED: POTASSIUM CHLOR 40 MEQ PREMIX 100 ML IV PRN ×2 (23:00)
[2016-11-08] MEDS ORDERED: MISCELLANEOUS NURSING INFORMATION XX SCH (23:00)
[2016-11-08 23:12] VITALS: BP 156/72; PULSE 99; RESP 20; O2SAT 100
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
[2016-11-09] VITALS (18 sets, daily range): BP systolic 93–166; BP diastolic 50–82; PULSE 51–101; RESP 14–81; TEMP 97.7–98.5; O2SAT 94–100
[2016-11-09 02:01] LABS: AMPHETAMINE, URINE NEG (NEG); BARBITURATES, URINE NEG (NEG); COCAINE, URINE NEG (NEG)
[2016-11-09] MEDS: SODIUM CHLOR 0.9% 1000 ML INJ 1,000 ML IV SCH (02:46)
[2016-11-09 02:56] LABS: BICARBONATE 24.3 MEQ/L (21.0-32.0); MAGNESIUM 2.7 MG/DL (1.5-2.5); POTASSIUM 4.1 MEQ/L (3.5-5.1)
[2016-11-09] MEDS: CHLORHEXIDINE GLUCONATE 2 % 1 PACK (2 CLOTHS) TOP SCH (04:00)
[2016-11-09] MEDS: AZTREONAM INJ 1,000 MG in SODIUM CHLORIDE 0.9% INJ 100 ML IV SCH ×3 (04:49→21:55)
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
[2016-11-09 08:06] LABS: AUTOMATED NEUTROPHIL # 15.4 TH/MM3 (1.8-7.7); BASOPHIL % 0.1 % (0.0-2.0); EOSINOPHIL % 0.1 % (0.0-4.0); HEMATOCRIT 33.3 % (35.0-46.0); HEMO FLAGS DIFF FINAL; LYMPH % 5.9 % (9.0-44.0); MEAN CELL VOLUME 86.8 FL (80.0-100.0); MEAN CORPUSCULAR HGB CONC 32.2 % (32.0-36.0); MONO % 5.7 % (0.0-8.0); NEUT % 88.2 % (16.0-70.0); PLATELET COUNT 154 TH/MM3 (150-450); RED BLOOD COUNT 3.83 MIL/MM3 (4.00-5.30); RED CELL DISTRIBUTION WIDTH 13.8 % (11.6-17.2); WHITE BLOOD COUNT 17.5 TH/MM3 (4.0-11.0)
--- NOTE | 2016-11-09 08:16 | EKG ---
Date Performed: 11/08/2016 Time Performed: 20:38:03 PTAGE: 46 years EKG: SINUS TACHYCARDIA WITH SHORT [place] INTERVAL LEFT ATRIAL ENLARGEMENT NONSPECIFIC ST DEPRESSION ABNORMAL ECG PREVIOUS TRACING : 10/23/2016 20.10 Compared to previous tracing, minimal nonspecific inferior ST elevation is no longer evident. DOCTOR: Thomas Belcher Interpretating Date/Time 11/09/2016 08:15:42
[2016-11-09] MEDS: levETIRAcetam 500 MG TAB PO SCH ×2 (08:42→21:55)
[2016-11-09] MEDS: NIFEdipine 30 MG SUSTAINED RELEASE TAB PO SCH (08:42)
[2016-11-09] MEDS: cloNIDine HCL 0.1 MG TAB PO SCH (08:42)
[2016-11-09] MEDS: PHENYTOIN SODIUM 100 MG CAP PO SCH ×3 (08:42→17:49)
[2016-11-09] MEDS: METOPROLOL TARTRATE 25 MG TAB PO SCH ×2 (08:42→21:55)
[2016-11-09] MEDS: ATORVASTATIN 80 MG TAB PO SCH (08:42)
[2016-11-09] MEDS: FLUoxetine HCL 10 MG CAP PO SCH (08:42)
[2016-11-09] MEDS: PANTOPRAZOLE SODIUM 40 MG VIAL IV PUSH SCH (08:43)
[2016-11-09] MEDS: HEPARIN SODIUM - SQ 10,000 UNITS/ML VIAL SQ SCH ×2 (08:43→21:55)
[2016-11-09 09:30] LABS: ANION GAP 10 MEQ/L (5-15); BETA-HYDROXYBUTYRATE 0.22 MMOL/L (0.00-0.39); BICARBONATE 23.5 MEQ/L (21.0-32.0); BLOOD UREA NITROGEN 46 MG/DL (7-18); CHLORIDE 118 MEQ/L (98-107); GLOMERULAR FILTRATION RATE 21 ML/MIN (>89); MAGNESIUM 2.8 MG/DL (1.5-2.5); SODIUM (NA) 151 MEQ/L (136-145)
[2016-11-09 09:33] LABS: POTASSIUM 4.5 MEQ/L (3.5-5.1)
[2016-11-09] MEDS ORDERED: LACTATED RINGER'S 1000 ML INJ 1,000 ML IV SCH (10:45)
[2016-11-09] MEDS ORDERED: DEXTROSE 50% IN WATER 50 ML VIAL(D50) IV PRN (10:45)
[2016-11-09] MEDS ORDERED: INSULIN NovoLIN REGULAR SUPPLEMENTAL SCALE SQ SCH (10:45)
[2016-11-09] MEDS ORDERED: GLUCAGON 1 MG/ML VIAL OTHER PRN (10:45)
[2016-11-09] MEDS ORDERED: SODIUM PHOSPHATE INJ 15 MMOL in SODIUM CHLORIDE 0.9% INJ 150 ML IV ONE (13:00)
[2016-11-09] MEDS: INSULIN NovoLIN REGULAR SUPPLEMENTAL SCALE SQ SCH ×3 (13:00→20:00)
[2016-11-09 16:36] LABS: BICARBONATE 23.2 MEQ/L (21.0-32.0); MAGNESIUM 2.4 MG/DL (1.5-2.5); POTASSIUM 4.3 MEQ/L (3.5-5.1)
[2016-11-09] MEDS: SODIUM CHLOR 0.45% 1000 ML INJ 1,000 ML IV SCH (17:00)
[2016-11-09 22:18] LABS: HEMOGLOBIN A1a 0.8 %; HEMOGLOBIN Ao 45.1 %; HEMOGLOBIN F 2.2 %; HEMOGLOBIN LA1C 2.2 %; HEMOGLOBIN P3 6.3 %
[2016-11-09 23:48] LABS: BICARBONATE 23.6 MEQ/L (21.0-32.0); POTASSIUM 4.2 MEQ/L (3.5-5.1)
[2016-11-10] VITALS (34 sets, daily range): BP systolic 99–178; BP diastolic 54–95; PULSE 69–78; RESP 0–34; TEMP 97.4–98.3; O2SAT 95–100
[2016-11-10] MEDS: SODIUM CHLOR 0.45% 1000 ML INJ 1,000 ML IV SCH ×2 (01:00→10:43)
[2016-11-10] MEDS: CHLORHEXIDINE GLUCONATE 2 % 1 PACK (2 CLOTHS) TOP SCH (03:00)
[2016-11-10] MEDS: INSULIN NovoLIN REGULAR SUPPLEMENTAL SCALE SQ SCH ×6 (04:00→20:00)
[2016-11-10] MEDS: AZTREONAM INJ 1,000 MG in SODIUM CHLORIDE 0.9% INJ 100 ML IV SCH ×3 (05:14→20:49)
[2016-11-10] MEDS: PANTOPRAZOLE SODIUM 40 MG VIAL IV PUSH SCH (08:26)
[2016-11-10] MEDS: levETIRAcetam 500 MG TAB PO SCH ×2 (08:26→20:49)
[2016-11-10] MEDS: PHENYTOIN SODIUM 100 MG CAP PO SCH ×4 (08:26→18:24)
[2016-11-10] MEDS: ATORVASTATIN 80 MG TAB PO SCH (08:26)
[2016-11-10] MEDS: cloNIDine HCL 0.1 MG TAB PO SCH (08:26)
[2016-11-10] MEDS: HEPARIN SODIUM - SQ 10,000 UNITS/ML VIAL SQ SCH ×2 (08:27→20:50)
[2016-11-10] MEDS: FLUoxetine HCL 10 MG CAP PO SCH (08:27)
[2016-11-10] MEDS: NIFEdipine 30 MG SUSTAINED RELEASE TAB PO SCH (08:27)
[2016-11-10] MEDS: METOPROLOL TARTRATE 25 MG TAB PO SCH ×2 (08:27→20:49)
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
[2016-11-10 16:23] LABS: AUTOMATED NEUTROPHIL # 5.8 TH/MM3 (1.8-7.7); BASOPHIL % 0.2 % (0.0-2.0); EOSINOPHIL # 0.1 TH/MM3 (0-0.4); EOSINOPHIL % 1.1 % (0.0-4.0); HEMATOCRIT 29.1 % (35.0-46.0); HEMO FLAGS DIFF FINAL; LYMPH % 17.6 % (9.0-44.0); LYMPHOCYTE # 1.4 TH/MM3 (1.0-4.8); MEAN CELL VOLUME 85.2 FL (80.0-100.0); MEAN CORPUSCULAR HEMOGLOBIN 29.2 PG (27.0-34.0); MEAN CORPUSCULAR HGB CONC 34.2 % (32.0-36.0); MONO % 5.7 % (0.0-8.0); NEUT % 75.4 % (16.0-70.0); PLATELET COUNT 121 TH/MM3 (150-450); RED BLOOD COUNT 3.41 MIL/MM3 (4.00-5.30); RED CELL DISTRIBUTION WIDTH 13.7 % (11.6-17.2); WHITE BLOOD COUNT 7.7 TH/MM3 (4.0-11.0)
[2016-11-10 16:59] LABS: BICARBONATE 24.8 MEQ/L (21.0-32.0); POTASSIUM 3.9 MEQ/L (3.5-5.1)
[2016-11-10] MEDS ORDERED: DEXTROSE 5%-NACL 0.3% INJ 1,000 ML IV SCH (18:00)
[2016-11-10] MEDS: DEXTROSE IV SCH ×2 (20:49)
[2016-11-10] MEDS: [UNRECOGNIZED DRUG - OTHER] IV SCH ×2 (20:49)
[2016-11-11] VITALS (12 sets, daily range): BP systolic 117–172; BP diastolic 65–86; PULSE 71–101; RESP 3–18; TEMP 97.3–99.5; O2SAT 95–98
[2016-11-11] MEDS: CHLORHEXIDINE GLUCONATE 2 % 1 PACK (2 CLOTHS) TOP SCH (01:57)
[2016-11-11] MEDS: DEXTROSE IV SCH ×6 (03:00→17:02)
[2016-11-11] MEDS: [UNRECOGNIZED DRUG - OTHER] IV SCH ×6 (03:00→17:02)
[2016-11-11] MEDS: INSULIN NovoLIN REGULAR SUPPLEMENTAL SCALE SQ SCH ×7 (04:00→21:33)
[2016-11-11] MEDS: AZTREONAM INJ 1,000 MG in SODIUM CHLORIDE 0.9% INJ 100 ML IV SCH ×3 (04:28→21:34)
[2016-11-11] MEDS: PANTOPRAZOLE SODIUM 40 MG VIAL IV PUSH SCH (06:18)
[2016-11-11] MEDS: HEPARIN SODIUM - SQ 10,000 UNITS/ML VIAL SQ SCH ×2 (09:30→21:35)
[2016-11-11] MEDS: FLUoxetine HCL 10 MG CAP PO SCH (09:30)
[2016-11-11] MEDS: cloNIDine HCL 0.1 MG TAB PO SCH (09:31)
[2016-11-11] MEDS: ATORVASTATIN 80 MG TAB PO SCH (09:31)
[2016-11-11] MEDS: METOPROLOL TARTRATE 25 MG TAB PO SCH ×2 (09:31→21:35)
[2016-11-11] MEDS: levETIRAcetam 500 MG TAB PO SCH ×2 (09:31→21:35)
[2016-11-11] MEDS: NIFEdipine 30 MG SUSTAINED RELEASE TAB PO SCH (09:31)
[2016-11-11] MEDS: PHENYTOIN SODIUM 100 MG CAP PO SCH ×3 (09:31→17:01)
[2016-11-11 10:58] LABS: BICARBONATE 24.1 MEQ/L (21.0-32.0); POTASSIUM 3.5 MEQ/L (3.5-5.1)
--- NOTE | 2016-11-11 15:52 | HHI.PR ---
Subjective Remarks no complains just frustrated about her elevated A1C very motivated Objective Vitals Vital Signs Date Time Temp Pulse Resp B/P Pulse Ox O2 Delivery O2 Flow Rate FiO2 11/11/16 14:00 71 11/11/16 12:00 98.4 85 16 172/83 97 11/11/16 12:00 85 11/11/16 10:00 89 11/11/16 08:00 99.5 101 18 123/68 96 11/11/16 08:00 101 11/11/16 06:00 84 11/11/16 04:00 84 11/11/16 04:00 98.0 84 15 168/84 95 11/11/16 02:00 81 11/11/16 00:00 98.3 73 12 169/86 96 11/11/16 00:00 73 11/10/16 22:00 73 11/10/16 20:00 97.9 74 12 142/85 100 11/10/16 20:00 74 11/10/16 18:00 72 11/10/16 18:00 72 12 118/57 98 11/10/16 17:00 71 6 138/74 97 11/10/16 16:00 69 11/10/16 16:00 97.8 69 9 106/64 98 I/O 11/10/16 11/10/16 11/10/16 11/11/16 11/11/16 11/11/16 06:59 14:59 22:59 06:59 14:59 22:59 Intake Total 798 ml 1331 ml 366 ml 893 ml 1608 ml Output Total 475 ml 850 ml 0 ml 500 ml Balance 323 ml 481 ml 366 ml 393 ml 1608 ml Intake Oral 111 ml 480 ml IV Total 798 ml 1220 ml 366 ml 893 ml 1128 ml Output Urine Total 475 ml 850 ml 0 ml 500 ml # Voids 2 # Bowel Movements 0 1 Result Diagram: 11/10/16 1536 11/11/16 1011 Imaging Last Impressions Head CT 11/08/162111 Signed Impressions: Service Date/Time: Tuesday, November 08, 2016 22:27 - CONCLUSION: No acute disease. Villa Calderon MD Chest X-Ray 11/08/161999 Signed Impressions: Service Date/Time: Tuesday, November 08, 2016 20:37 - CONCLUSION: No acute disease. Villa Calderon MD Objective Remarks awake and alert, oriented x 3, anicteric dry oral mucosa no nuchal rigidity lungs clear, no rales regular rhythm abdomen soft, nontender extremities no edema-left foot toe- amputated- no open wounds or lesions Date of Removal: November 10, 2016 A/P Assessment and Plan 46 years sold female with DM type 2 S/P DKA, DM type 2 uncontrolled- elevated A1C - start on Novolin N 5 units SQ bid, continue on Novolog tid,. adjust dose - IV hydration - Electrolytes replacement UTI - Azactam - Follow-up cultures- no growth so far Leukocytosis- may be reactive and secondary to UTI - FF CBC Seizure disorder - Dilantin - Keppra - Follow-up free Dilantin level Hypertension- better readings - Clonidine - Nifedipine - Metoprolol - Hold JOAQUÍN inhibitor due to acute kidney injury Acute kidney injury secondary Dehydration- non oliguric - continue Aggressive IV fluid resuscitation - Monitor urine output - Electrolytes and creatinine levels DVT GI prophylaxis - Subcutaneous heparin - Pepcid PT consult- out of bed to chair Increase activity Eliana Clay MD Nov 11, 2016 15:52
[2016-11-11] MEDS ORDERED: POTASSIUM CHLORIDE 20 MEQ CONTROLLED RELEASE TAB PO ONE (16:15)
[2016-11-11] MEDS: INSULIN HUMAN NPH 1,000 UNITS/10 ML VIAL SQ SCH (17:01)
[2016-11-12] VITALS (12 sets, daily range): BP systolic 126–183; BP diastolic 74–88; PULSE 70–98; RESP 5–20; TEMP 97.5–98.3; O2SAT 96–100
[2016-11-12] MEDS: CHLORHEXIDINE GLUCONATE 2 % 1 PACK (2 CLOTHS) TOP SCH (04:00)
[2016-11-12] MEDS: [UNRECOGNIZED DRUG - OTHER] IV SCH ×4 (05:05→10:44)
[2016-11-12] MEDS: DEXTROSE IV SCH ×4 (05:05→10:44)
[2016-11-12] MEDS: AZTREONAM INJ 1,000 MG in SODIUM CHLORIDE 0.9% INJ 100 ML IV SCH ×3 (05:05→21:34)
[2016-11-12] MEDS: PANTOPRAZOLE SODIUM 40 MG VIAL IV PUSH SCH ×2 (05:57→08:17)
[2016-11-12] MEDS: levETIRAcetam 500 MG TAB PO SCH ×2 (08:17→21:34)
[2016-11-12] MEDS: ATORVASTATIN 80 MG TAB PO SCH (08:17)
[2016-11-12] MEDS: FLUoxetine HCL 10 MG CAP PO SCH (08:17)
[2016-11-12] MEDS: cloNIDine HCL 0.1 MG TAB PO SCH (08:17)
[2016-11-12] MEDS: PHENYTOIN SODIUM 100 MG CAP PO SCH ×3 (08:17→17:32)
[2016-11-12] MEDS: NIFEdipine 30 MG SUSTAINED RELEASE TAB PO SCH (08:17)
[2016-11-12] MEDS: METOPROLOL TARTRATE 25 MG TAB PO SCH ×2 (08:17→21:34)
[2016-11-12] MEDS: HEPARIN SODIUM - SQ 10,000 UNITS/ML VIAL SQ SCH ×2 (08:18→21:34)
[2016-11-12] MEDS: INSULIN NovoLIN REGULAR SUPPLEMENTAL SCALE SQ SCH ×3 (08:18→17:00)
[2016-11-12] MEDS: INSULIN HUMAN NPH 1,000 UNITS/10 ML VIAL SQ SCH ×2 (08:20→17:00)
[2016-11-12] MEDS ORDERED: cloNIDine HCL 0.1 MG TAB PO PRN (12:00)
[2016-11-12 12:18] LABS: BICARBONATE 27.1 MEQ/L (21.0-32.0); POTASSIUM 3.3 MEQ/L (3.5-5.1)
--- NOTE | 2016-11-12 14:04 | HHI.PR ---
Subjective Remarks patient doing very well improved readings no nausea or vomiting Objective Vitals Vital Signs Date Time Temp Pulse Resp B/P Pulse Ox O2 Delivery O2 Flow Rate FiO2 11/12/16 12:00 98.1 84 16 145/85 98 11/12/16 12:00 84 11/12/16 11:30 145/85 11/12/16 10:20 183/87 11/12/16 10:00 93 11/12/16 08:00 98.3 98 14 174/88 97 11/12/16 08:00 91 11/12/16 06:00 77 11/12/16 04:00 97.9 79 5 138/84 96 11/12/16 04:00 79 11/12/16 02:00 74 11/12/16 00:00 98.2 76 10 160/83 97 11/12/16 00:00 76 11/11/16 22:00 72 11/11/16 20:00 74 11/11/16 20:00 97.3 74 3 117/65 96 11/11/16 18:00 76 11/11/16 16:00 71 11/11/16 16:00 98.8 71 16 129/78 98 I/O 11/11/16 11/11/16 11/11/16 11/12/16 11/12/16 11/12/16 07:00 15:00 23:00 07:00 15:00 23:00 Intake Total 893 ml 1608 ml 950 ml 932 ml 1249 ml Output Total 500 ml 600 ml 550 ml 400 ml Balance 393 ml 1608 ml 350 ml 382 ml 849 ml Intake Oral 480 ml 100 ml 240 ml IV Total 893 ml 1128 ml 850 ml 932 ml 1009 ml Output Urine Total 500 ml 600 ml 550 ml 400 ml # Voids 2 2 2 # Bowel Movements 1 1 Result Diagram: 11/10/16 1536 11/12/16 1122 Imaging Last Impressions Head CT 11/08/162111 Signed Impressions: Service Date/Time: Tuesday, November 08, 2016 22:27 - CONCLUSION: No acute disease. Villa Calderon MD Chest X-Ray 11/08/161999 Signed Impressions: Service Date/Time: Tuesday, November 08, 2016 20:37 - CONCLUSION: No acute disease. Villa Calderon MD Objective Remarks awake and alert, oriented x 3, anicteric dry oral mucosa no nuchal rigidity lungs clear, no rales regular rhythm abdomen soft, nontender extremities no edema-left foot toe- amputated- no open wounds or lesions Date of Removal: November 10, 2016 A/P Assessment and Plan 46 years sold female with DM type 2 S/P DKA, DM type 2 uncontrolled- elevated A1C - start on Novolin N 5 units SQ bid, continue on Novolog tid,. adjust dose - IV hydration - Electrolytes replacement UTI - Azactam - Follow-up cultures- no growth so far Leukocytosis- may be reactive and secondary to UTI - FF CBC Seizure disorder - Dilantin - Keppra - Follow-up free Dilantin level Hypertension- better readings - Clonidine - Nifedipine - Metoprolol - Hold JOAQUÍN inhibitor due to acute kidney injury Acute kidney injury secondary Dehydration- non oliguric Hypernatremia- improved. - continue Aggressive IV fluid resuscitation - Monitor urine output - Electrolytes and creatinine levels DVT GI prophylaxis - Subcutaneous heparin - Pepcid PT consult- out of bed to chair Increase activity Eliana Clay MD Nov 12, 2016 14:03
[2016-11-12] MEDS ORDERED: POTASSIUM CHLORIDE INJ 10 MEQ in SODIUM CHLOR 0.45% 1000 ML INJ 1,000 ML IV SCH (15:00)
[2016-11-12] MEDS ORDERED: POTASSIUM CHLORIDE 10 MEQ CONTROLLED RELEASE TAB PO ONE (15:00)
[2016-11-13] VITALS: BP 126/73; PULSE 75; RESP 20; TEMP 97.6; O2SAT 100
[2016-11-13 04:00] VITALS: BP 137/77; PULSE 80; RESP 20; TEMP 97.9; O2SAT 98
[2016-11-13] MEDS: CHLORHEXIDINE GLUCONATE 2 % 1 PACK (2 CLOTHS) TOP SCH (04:00)
[2016-11-13] MEDS: AZTREONAM INJ 1,000 MG in SODIUM CHLORIDE 0.9% INJ 100 ML IV SCH ×2 (04:18→13:51)
[2016-11-13 08:00] VITALS: BP 132/81; PULSE 85; RESP 18; TEMP 97.9; O2SAT 99
[2016-11-13] MEDS: INSULIN NovoLIN REGULAR SUPPLEMENTAL SCALE SQ SCH ×2 (08:00→12:00)
[2016-11-13] MEDS: METOPROLOL TARTRATE 25 MG TAB PO SCH (08:39)
[2016-11-13] MEDS: ATORVASTATIN 80 MG TAB PO SCH (08:39)
[2016-11-13] MEDS: NIFEdipine 30 MG SUSTAINED RELEASE TAB PO SCH (08:40)
[2016-11-13] MEDS: FLUoxetine HCL 10 MG CAP PO SCH (08:41)
[2016-11-13] MEDS: levETIRAcetam 500 MG TAB PO SCH (08:41)
[2016-11-13] MEDS: cloNIDine HCL 0.1 MG TAB PO SCH (08:41)
[2016-11-13] MEDS: PHENYTOIN SODIUM 100 MG CAP PO SCH ×2 (08:41→13:51)
[2016-11-13] MEDS: HEPARIN SODIUM - SQ 10,000 UNITS/ML VIAL SQ SCH (08:42)
[2016-11-13] MEDS: INSULIN HUMAN NPH 1,000 UNITS/10 ML VIAL SQ SCH (08:46)
[2016-11-13 12:00] VITALS: BP 148/82; PULSE 72; RESP 18; TEMP 97.8; O2SAT 96
--- NOTE | 2016-11-13 12:58 | HHI.PR ---
Subjective Remarks feeling better, voiding very well no nausea or vomiting, no abdominal pain Objective Vitals Vital Signs Date Time Temp Pulse Resp B/P Pulse Ox O2 Delivery O2 Flow Rate FiO2 11/13/16 08:00 97.9 85 18 132/81 99 11/13/16 04:00 97.9 80 20 137/77 98 11/13/16 00:00 97.6 75 20 126/73 100 11/12/16 20:00 97.7 76 20 126/74 100 11/12/16 16:00 97.5 70 20 129/82 98 11/12/16 14:00 97.5 74 20 153/84 100 I/O 11/12/16 11/12/16 11/12/16 11/13/16 11/13/16 11/13/16 07:00 15:00 23:00 07:00 15:00 23:00 Intake Total 932 ml 1249 ml 960 ml 960 ml Output Total 550 ml 400 ml Balance 382 ml 849 ml 960 ml 960 ml Intake Oral 240 ml 360 ml 360 ml IV Total 932 ml 1009 ml 600 ml 600 ml Output Urine Total 550 ml 400 ml # Voids 2 1 1 # Bowel Movements 1 0 Result Diagram: 11/10/16 1536 11/12/16 1122 Imaging Last Impressions Head CT 11/08/162111 Signed Impressions: Service Date/Time: Tuesday, November 08, 2016 22:27 - CONCLUSION: No acute disease. Villa Calderon MD Chest X-Ray 11/08/161999 Signed Impressions: Service Date/Time: Tuesday, November 08, 2016 20:37 - CONCLUSION: No acute disease. Villa Calderon MD Objective Remarks awake and alert, oriented x 3, anicteric moist mucosa no nuchal rigidity lungs clear, no rales regular rhythm abdomen soft, nontender extremities no edema-left foot toe- amputated- no open wounds or lesions Date of Removal: November 10, 2016 A/P Assessment and Plan 46 years sold female with DM type 2 S/P DKA, DM type 2 uncontrolled- elevated A1C - Novolin N 10units SQ bid, continue on Novolog tid,. adjust dose - Lantus not available here. Patient lists Levemr as allergy Pyuria- UTI - on Azactam. - change to Po levaquin 500 mg po x 3 days more on DC Leukocytosis- trended down Seizure disorder - Dilantin - Keppra - Follow-up free Dilantin level Hypertension- better readings - Clonidine - Nifedipine - Metoprolol - Hold JOAQUÍN inhibitor due to acute kidney injury and hyperkalemia on admission Acute kidney injury secondary Dehydration- non oliguric Hypernatremia- improved. HYpokalemia- recheck - improved - Monitor urine output DVT GI prophylaxis - Subcutaneous heparin - Pepcid PT consult- out of bed to chair Increase activity DC home this pm D/W her at length- diet is a main issue. she will continue Lantus at at home 10 -15 unit SQ HS and continue her Novolog tid regimen FF up with PCP Dr. Cardoso early next week Eliana Clay MD Nov 13, 2016 12:58
[2016-11-13 14:13] LABS: BICARBONATE 26.4 MEQ/L (21.0-32.0)
[2016-11-13] MEDS ORDERED: LANTUS2P SQ (15:39)
--- NOTE | 2016-11-13 15:43 | HHI.DS ---
Discharge Summary Admission Date November 08, 2016 at 22:06 Discharge Date: Nov 13, 2016 Admitting Diagnosis Hyperglycemia/Urinary sepsis/Renal Failure (1) DKA (diabetic ketoacidoses) ICD Code: E13.10 Diagnosis: Principal (2) UTI (urinary tract infection) ICD Code: N39.0 Diagnosis: Principal (3) Accelerated hypertension ICD Code: I10 Diagnosis: Principal Procedures none Brief History - From Admission 46-year-old female was just admitted here 2 weeks ago due to altered mental status, she has a history of type 1 diabetes and history of seizure disorder and is brought in today via EMS with weakness, change of mental status, and hyperglycemia. Patient reportedly takes NovoLog nd had a sugar this morning was 140. EMS and fire department were called to the residence as the patient was acting strangely according to her family, and blood sugar reading was above 600. Patient is alert and oriented sleepy in no acute distress. CBC/BMP: 11/10/16 1536 11/13/16 1346 Significant Findings Laboratory Tests Test 11/11/16 11/12/16 11/13/16 10:11 11:22 13:46 Chloride Level 114 MEQ/L 109 MEQ/L 111 MEQ/L (98-107) (98-107) (98-107) Blood Urea Nitrogen 21 MG/DL (7-18) Creatinine 1.69 MG/DL 1.40 MG/DL 1.49 MG/DL (0.50-1.00) (0.50-1.00) (0.50-1.00) Estimat Glomerular Filtration 39 ML/MIN (>89) 49 ML/MIN (>89) 45 ML/MIN (>89) Rate Random Glucose 326 MG/DL 261 MG/DL 129 MG/DL (74-106) (74-106) (74-106) Calcium Level 8.1 MG/DL 8.0 MG/DL 8.2 MG/DL (8.5-10.1) (8.5-10.1) (8.5-10.1) Potassium Level 3.3 MEQ/L (3.5-5.1) Imaging Last Impressions Head CT 11/08/162111 Signed Impressions: Service Date/Time: Tuesday, November 08, 2016 22:27 - CONCLUSION: No acute disease. Villa Calderon MD Chest X-Ray 11/08/161999 Signed Impressions: Service Date/Time: Tuesday, November 08, 2016 20:37 - CONCLUSION: No acute disease. Villa Calderon MD PE at Discharge awake and alert, oriented x 3, anicteric moist mucosa no nuchal rigidity lungs clear, no rales regular rhythm abdomen soft, nontender extremities no edema-left foot toe- amputated- no open wounds or lesions Pt update on day of discharge no nausea or vomiting d/w her resume her Lantus 10 units- adjust 10-15 hs and continue Novolg tid- 3- 5 units advise on diet Hospital Course 46 years sold female with DM type 2 S/P DKA, DM type 2 uncontrolled- elevated A1C - Novolin N 10units SQ bid, continue on Novolog tid,. adjust dose - Lantus not available here. Patient lists Levemr as allergy Pyuria- UTI - on Azactam. - change to Po levaquin 500 mg po x 3 days more on DC Leukocytosis- trended down Seizure disorder - Dilantin - Keppra - Follow-up free Dilantin level Hypertension- better readings - Clonidine - Nifedipine - Metoprolol - Hold JOAQUÍN inhibitor due to acute kidney injury and hyperkalemia on admission Acute kidney injury secondary Dehydration- non oliguric Hypernatremia- improved. HYpokalemia-corrected - improved - Monitor urine output DVT GI prophylaxis - Subcutaneous heparin - Pepcid Increase activity DC home this pm D/W her at length- diet is a main issue. she will continue Lantus at at home 10 -15 unit SQ HS and continue her Novolog tid regimen FF up with PCP Dr. Cardoso early next week Pt Condition on Discharge: Stable Discharge Disposition: Discharge Home Discharge Time: <= 30 minutes Discharge Instructions DIET: Follow Instructions for: Heart Healthy Diet, Diabetic Diet Speech Therapy-Diet Recommends: Regular Activities you can perform: Weight Bearing as [facility] Follow up Referrals: PCP Follow-up - 11/16/16 with [facility] New Medications: Insulin Glargine Inj (Lantus Inj) 1,000 Unit/10 Ml Vial 10 UNITS SQ HS Blood Sugar Management #1 Ref 0 VIAL Continued Medications: Atorvastatin (Atorvastatin) 80 Mg Tab 80 MG PO DAILY Cholesterol Management #30 Ref 0 TAB Clonidine (Clonidine) 0.1 Mg Tab 0.1 MG PO DAILY Blood Pressure Management #60 Ref 0 TAB Fluoxetine (Fluoxetine) 10 Mg Tab 10 MG PO DAILY #30 Ref 0 TAB Insulin Aspart Inj (Novolog Inj) 100 Unit/Ml Inj 1 UNITS SQ ACHS SLIDING SCALE Blood Sugar Management Days 30 INJECTION Levetiracetam (Levetiracetam) 500 Mg Tab 500 MG PO BID Control Seizures #60 Ref 0 TAB Metoprolol Tartrate (Metoprolol Tartrate) 25 Mg Tab 25 MG PO BID #60 Ref 0 TAB Phenytoin Extended (Dilantin) 100 Mg Cap 100 MG PO TID Control Seizures #90 Ref 0 CAP Discontinued Medications: Cephalexin (Cephalexin) 500 Mg Cap 500 MG PO Q6H Infection Ref 0 CAP Valsartan (Valsartan) 160 Mg Tab 160 MG PO DAILY #30 Ref 0 TAB Eliana Clay MD Nov 13, 2016 15:43
[2016-11-13] MEDS ORDERED: LEVO500T8 PO (15:48)
== END 2016-11-13 16:35 | disposition home or self-care (01) | DRG 638 ==
LOC: NEPC 19:50 → NEDA 22:06 → HIMW 23:35 → N04B 11-12 13:43
PROVIDERS: ADMIT Internal Medicine; ATTEND Internal Medicine
DX: E10.10 Type 1 diabetes mellitus with ketoacidosis without coma (principal); N17.9 Acute kidney failure, unspecified; E87.0 Hyperosmolality and hypernatremia; N39.0 Urinary tract infection, site not specified; I10 Essential (primary) hypertension; G40.909 Epilepsy, unspecified, not intractable, without status epilepticus; Z86.14 Personal history of Methicillin resistant Staphylococcus aureus infection; Z86.73 Personal history of transient ischemic attack (TIA), and cerebral infarction without residual deficits; E86.0 Dehydration; D64.9 Anemia, unspecified; Z79.4 Long term (current) use of insulin; E87.6 Hypokalemia; E78.00 Pure hypercholesterolemia, unspecified; E87.5 Hyperkalemia; J45.909 Unspecified asthma, uncomplicated; M19.90 Unspecified osteoarthritis, unspecified site; Z88.0 Allergy status to penicillin
CPT/HCPCS: 70450; 71010; 76937; 80048; 80053; 80185; 80307; 81001; 82010; 82805; 82947; 82948; 83036; 83605; 83690; 83735; 84100; 85025; 87040; 87086; 87641; 93005; 96361; 96365; 96372; 96375; 96376; C9113; J1580; J1644; J1815; J1817; J2060; J7030; J7042; J7070; J7120

== ENCOUNTER 2016-11-22 02:28 | Inpatient (IN) | payer MEDICAID ==
[2016-11-22] VITALS (15 sets, daily range): BP systolic 107–153; BP diastolic 56–79; PULSE 81–92; RESP 14–18; TEMP 96.8–98.2; O2SAT 99–100
[~2016-11-22] VITALS: Ht 157.5 cm; Wt 58.5 kg
[~2016-11-22 02:28] MED LIST changes: -CEPH500T PO; +CLON0.1T PO; -FLUO10CA5 PO; +FLUO10TA PO; +LANTUS2P SQ; -LEVE250T5 PO; +LEVE500T8 PO; +LEVO500T8 PO; -VALS1TAB65 PO
[2016-11-22] MEDS ORDERED: SODIUM CHLOR 0.9% 1000 ML INJ 1,000 ML IV ONE (02:34)
[2016-11-22] MEDS ORDERED: SODIUM CHLORIDE 0.9% FLUSH 10 ML FLUSH IVF PRN (02:45)
[2016-11-22 02:53] LABS: BLOOD GAS BASE EXCESS -17.3 mmol/L (-2-2); BLOOD GAS CARBOXYHEMOGLOBIN 2.6 % (0-4); BLOOD GAS HCO3 9 mmol/L (22-26); BLOOD GAS METHEMOGLOBIN 1.2 % (0-2); BLOOD GAS O2 HGB SATURATION 94 % (90-100); BLOOD GAS OXYGEN CONTENT 9.8 Vol % (12.0-20.0); BLOOD GAS PCO2 24 mmHg (38-42); BLOOD GAS PO2 113 mmHG (61-120); BLOOD GAS TOTAL HGB 7.2 G/DL (12.0-16.0); TEMP CORR TO 98.6
[2016-11-22 02:54] LABS: CRITICAL VALUE YES; DRAW SITE RT RADIAL; FIO2 21 %; NUMBER OF ARTERIAL PUNCTURES 1; OXYGEN DEVICE ROOM AIR; STAT YES; ULNAR PULSE PRESENT
[2016-11-22] MEDS ORDERED: DEXT 5%-NACL 0.9% 1000 ML INJ 1,000 ML IV SCH (02:59)
[2016-11-22] MEDS ORDERED: SODIUM PHOSPHATE INJ 15 MMOL in SODIUM CHLORIDE 0.9% INJ 100 ML IV PRN (03:00)
[2016-11-22] MEDS ORDERED: SODIUM BICARBONATE 8.4% SOLN 50 MEQ/50 ML VIAL IV PRN ×2 (03:00)
[2016-11-22] MEDS ORDERED: POTASSIUM CHLOR 20 MEQ PREMIX 100 ML IV PRN ×6 (03:00)
[2016-11-22] MEDS ORDERED: POTASSIUM CHLOR 40 MEQ PREMIX 100 ML IV PRN ×2 (03:00)
[2016-11-22] MEDS ORDERED: INSULIN HUMAN REGULAR 1,000 UNITS/10 ML VIAL IV PUSH ONE (03:00)
--- NOTE | 2016-11-22 03:09 | RADRPT ---
EXAM DATE/TIME: 11/22/2016 02:56 [facility] COMPARISON: CHEST SINGLE AP, November 08, 2016, 20:37. INDICATIONS : Altered mental status, shortness of breath. MEDICAL HISTORY : None. SURGICAL HISTORY : None. ENCOUNTER: Initial ACUITY: 1 day PAIN SCORE: Non-responsive. LOCATION: Bilateral chest FINDINGS: The lungs are clear without infiltrate, nodule, or mass. There is no appreciable pleural effusion fo r technique. Heart and mediastinum are unremarkable. CONCLUSION: No acute cardiopulmonary disease. Tr Luna MD on November 22, 2016 at 3:07 Board Certified Radiologist. This report was verified electronically.
[2016-11-22 03:10] LABS: AUTOMATED NEUTROPHIL # 16.6 TH/MM3 (1.8-7.7); BASOPHIL # 0.1 TH/MM3 (0-0.2); BASOPHIL % 0.3 % (0.0-2.0); HEMATOCRIT 25.4 % (35.0-46.0); HEMO FLAGS DIFF FINAL; LYMPH % 4.7 % (9.0-44.0); LYMPHOCYTE # 0.8 TH/MM3 (1.0-4.8); MEAN CELL VOLUME 96.2 FL (80.0-100.0); MEAN CORPUSCULAR HEMOGLOBIN 29.6 PG (27.0-34.0); MEAN CORPUSCULAR HGB CONC 30.7 % (32.0-36.0); PLATELET COUNT 260 TH/MM3 (150-450); RED BLOOD COUNT 2.64 MIL/MM3 (4.00-5.30); RED CELL DISTRIBUTION WIDTH 14.8 % (11.6-17.2); WHITE BLOOD COUNT 18.1 TH/MM3 (4.0-11.0)
[2016-11-22 03:29] LABS: BLOOD, URINE SMALL (NEG); GLUCOSE,URINE 1000 mg/dL (NEG); HYALINE CAST, URINE 1 /lpf (RARE); KETONE, URINE 40 mg/dL (NEG); MUCUS URINE FEW /lpf (OCC); NITRITE,URINE NEG (NEG); PH, URINE 5.5 (5.0-8.5); SQUAMOUS EPITHELIAL CELL URINE 1 /hpf (0-5); URINE COLOR LIGHT-YELLOW (YELLW/STRAW)
[2016-11-22 03:32] LABS: COMMENT (UR) CULT NOT INDICATED; CULTURE IF INDICATED CULT NOT INDICATED
[2016-11-22 03:38] LABS: ANION GAP 27 MEQ/L (5-15)
--- NOTE | 2016-11-22 03:52 | RADRPT ---
EXAM DATE/TIME: 11/22/2016 03:32 [facility] COMPARISON: CT BRAIN W/O CONTRAST, November 08, 2016, 22:27. INDICATIONS : Altered mental status; uncontrolled diabetes - very high blood sugar. RADIATION DOSE: 37.48 CTDIvol (mGy) MEDICAL HISTORY : Renal calculi. Seizures. Lupus.CVA. Hypertension. Renal failure. Diabetes. SURGICAL HISTORY : Cholecystectomy. Hysterectomy. section. ENCOUNTER: Initial ACUITY: 1 day PAIN SCALE: Non-responsive LOCATION: cranial TECHNIQUE: Multiple contiguous axial images were obtained of the head. Using automated exposure control and adj ustment of the mA and/or kV according to patient size, radiation dose was kept as low as reasonably a chievable to obtain optimal diagnostic quality images. FINDINGS: There is no evidence for intracranial hemorrhage, mass effect, mass lesions, edema, or extra-axial fl uid collections. The visualized bony structures appear intact. The ventricles are normal size for t he patient's age. There are no signs of acute infarction for technique. CONCLUSION: Unremarkable study. Tr Luna MD on November 22, 2016 at 3:49 Board Certified Radiologist. This report was verified electronically.
[2016-11-22 03:55] LABS: ALKALINE PHOSPHATASE 184 U/L (45-117); ALT (GPT) 18 U/L (10-53); AST (GOT) 11 U/L (15-37); BETA-HYDROXYBUTYRATE 12.18 MMOL/L (0.00-0.39); BLOOD UREA NITROGEN 69 MG/DL (7-18); CHLORIDE 101 MEQ/L (98-107); GLOMERULAR FILTRATION RATE 15 ML/MIN (>89); MAGNESIUM 3.2 MG/DL (1.5-2.5); POTASSIUM 4.8 MEQ/L (3.5-5.1); SODIUM (NA) 140 MEQ/L (136-145); TOTAL BILIRUBIN ADULT 0.4 MG/DL (0.2-1.0)
[2016-11-22] MEDS: SODIUM CHLOR 0.9% 1000 ML INJ 1,000 ML IV SCH ×4 (04:16→18:59)
--- NOTE | 2016-11-22 04:24 | PD ---
HPI Chief Complaint: Abnormal Results Time Seen by Provider: 02:32 Travel History International Travel<30 days: No Contact w/Intl Traveler<30days: No Traveled to known affect area: No History of Present Illness HPI The patient is a 46 year old female who presents to the [facility] emergency department with a history of critically high blood sugar noted at home. The patient was also confused, therefore the patient's family called ambulance services. The patient was noted prior to arrival to be sleepy and slow to answer questions. The patient on arrival cannot recall when she last took her insulin. She reports that her family helps her at home with her insulin administration. The patient was recently admitted to the hospital on November 08, 2016 related to DKA. The patient is a poor historian at this time. Therefore, review of systems for this patient was limited. The patient's medical history is obtained from reviewing the electronic medical record. [facility] Past Medical History Narrative Medical The patient's past medical history is significant for asthma, lupus, hypertension, diabetes mellitus, history of cerebrovascular accident, history of seizure disorder. Medical History: Unable to Obtain Arthritis: Yes Asthma: Yes Autoimmune Disease: Yes (LUPUS) Blood Disorders: Yes Anxiety: No Depression: No Heart Rhythm Problems: No Cancer: No Cardiovascular Problems: Yes High Cholesterol: Yes Chemotherapy: No Chest Pain: No Congestive Heart Failure: No COPD: No Cerebrovascular Accident: Yes (MAY 2013) Diabetes: Yes Patient Takes Glucophage: No Diminished Hearing: No Endocrine: Yes Gastrointestinal Disorders: Yes Genitourinary: Yes Hypertension: Yes Immune Disorder: Yes Kidney Stones: Yes Musculoskeletal: Yes Neurologic: Yes Psychiatric: No Reproductive: No Respiratory: Yes Radiation Therapy: No Renal Failure: Yes (Stage II) Seizures: Yes Sickle Cell Disease: No Sleep Apnea: No Thyroid Disease: No Tetanus Vaccination: > 5 Years Influenza Vaccination: Yes ?: Unknown : 1 Para: 1 Past Surgical History Narrative Surgical The patient's past surgical history is significant for a , cholecystectomy, left foot surgery, hysterectomy. Surgical History: Unable to Obtain Abdominal Surgery: Yes Cardiac Surgery: No Section: Yes Cholecystectomy: Yes Ear Surgery: No Endocrine Surgery: No Eye Surgery: No Genitourinary Surgery: No Gynecologic Surgery: Yes ( ) Hysterectomy: Yes Oral Surgery: No Thoracic Surgery: No Other Surgery: Yes (LEFT FOOT WOUND MECHANICAL DEBRIDEMENT) Social History Alcohol Use: Yes (OCCASIONAL/HOLIDAYS) Tobacco Use: No Substance Use: No Allergies-Medications (Allergen,Severity, Reaction): Coded Allergies: Aspirin (Verified Allergy, Severe, 09/06/16) RASH Levemir (Verified Allergy, Severe, Sweats, funny feeling, mood swings, daze, 09/06/16) Penicillin (Verified Allergy, Severe, 09/06/16) Sulfa (Verified Allergy, Severe, 09/06/16) RASH Banana (Verified Allergy, Intermediate, Hives, 11/11/16) Adhesives (Verified Allergy, Unknown, 09/06/16) Macrobid (Unverified Allergy, Unknown, 09/06/16) *MDRO Multi-Drug Resistant Organism (Unverified Adverse Reaction, Unknown , 11/09/16) MRSA 2013 MRSA PCR Screen POSITIVE on 01/22/16 & 11/09/16 Reported Meds & Prescriptions Reported Meds & Active Scripts Active Levofloxacin 500 Mg Tablet 500 Mg PO DAILY 3 Days Lantus Inj (Insulin Glargine) 1,000 Unit/10 Ml Vial 10 Units SQ HS Nifedipine ER 24 HR (Nifedipine) 30 Mg Tab 60 Mg PO DAILY Novolog Inj (Insulin Aspart) 100 Unit/Ml Inj 1 Units SQ ACHS SLIDING SCALE 30 Days Dilantin (Phenytoin Extended) 100 Mg Cap 100 Mg PO TID Reported Clonidine (Clonidine HCl) 0.1 Mg Tab 0.1 Mg PO DAILY Fluoxetine (Fluoxetine HCl) 10 Mg Tab 10 Mg PO DAILY Levetiracetam 500 Mg Tab 500 Mg PO BID Metoprolol Tartrate 25 Mg Tab 25 Mg PO BID Atorvastatin (Atorvastatin Calcium) 80 Mg Tab 80 Mg PO DAILY Review of Systems ROS Limitations: Poor Historian Except as stated in HPI: all other systems reviewed are Neg Gastrointestinal: Positive: Nausea Neurologic: Positive: Weakness (generalized weakness), Change in Mentation Physical Exam Narrative General: The patient is a well-developed well-nourished female, drowsy on examination although easily arousable and able to state her name. Head and Neck exam: Head is normocephalic atraumatic. Eyes: EOMI, pupils are equal round and reactive to light. Nose: Midline septum with pink mucous membranes Mouth: Dentition unremarkable. Dry mucus membranes. Posterior oropharynx is not erythematous. No tonsillar hypertrophy. Uvula midline. Airway patent. Neck: No palpable lymphadenopathy. No nuchal rigidity. No thyromegaly. Cardiovascular: Regular rate and rhythm without murmurs, gallops, or rubs. No pulse deficit to the extremities. Lungs: Clear to auscultation bilaterally. No wheezes, rhonchi, or rales. Abdomen: Soft, with reported midepigastric abdominal discomfort on palpation, no other tenderness on palpation of the other quadrants of the abdomen. No guarding, rebound, or rigidity. Negative [place] sign. No tenderness on palpation of McBurney's point. Extremities: No clubbing, cyanosis, or edema. 2+ pulses in all 4 extremities. Back: No spinous process tenderness to palpation. No costovertebral angle tenderness to palpation. Neurologic Exam: Grossly nonfocal. The patient is oriented to person, place, however not time or situation. She has no evidence of facial asymmetry. She has clear speech. She is moving all extremities equally. Skin Exam: No rash noted. Intact skin that is warm and dry. She has poor skin turgor. Data Data Last Documented VS Vital Signs Date Time Temp Pulse Resp B/P Pulse Ox O2 Delivery O2 Flow Rate FiO2 11/22/16 05:52 91 142/76 100 Room Air 11/22/16 02:30 16 Orders Electrocardiogram (11/22/16 02:34) Complete Blood Count With Diff (11/22/16 02:34) Comprehensive Metabolic Panel (11/22/16 02:34) Magnesium (Mg) (11/22/16 02:34) Beta Hydroxybutyrate (Acetone) (11/22/16 02:34) Urinalysis - C+S If Indicated (11/22/16 02:34) Blood Culture (11/22/16 02:34) Chest, Single Ap (11/22/16 02:34) Arterial Blood Gas (Abg) (11/22/16 02:34) Blood Glucose (11/22/16 02:34) Blood Glucose (11/22/16 03:34) Ecg Monitoring (11/22/16 02:34) Iv Access Insert/Monitor (11/22/16 02:34) Oximetry (11/22/16 02:34) NPO (11/22/16 02:34) Sodium Chloride 0.9% Flush (Ns Flush) (11/22/16 02:45) Sodium Chlor 0.9% 1000 Ml Inj (Ns 1000 M (11/22/16 02:34) Troponin I (11/22/16 02:34) Lipase (11/22/16 02:34) Ct Brain W/O Iv Contrast(Rout) (11/22/16 02:34) Ed Urine Pregnancytest Poc (11/22/16 02:34) Lactic Acid Sepsis Protocol (11/22/16 02:34) Orthotic Practitioner / Telemetry GERMÁN.Q8H (11/22/16 02:59) Diet Npo (11/22/16 Breakfast) Sodium Chlor 0.9% 1000 Ml Inj (Ns 1000 M (11/22/16 02:59) Dext 5%-Nacl 0.9% 1000 Ml Inj (D5w-Ns 10 (11/22/16 02:59) Insulin Human Regular Inj (Novolin R Inj (11/22/16 03:00) Insulin Regular (Iv Infusion) (Novolin R (11/22/16 03:00) Potassium Chlor 40 Meq Premix (Kcl 40 Me (11/22/16 03:00) Potassium Chlor 40 Meq Premix (Kcl 40 Me (11/22/16 03:00) Potassium Chlor 20 Meq Premix (Kcl 20 Me (11/22/16 03:00) Potassium Chlor 20 Meq Premix (Kcl 20 Me (11/22/16 03:00) Potassium Chlor 20 Meq Premix (Kcl 20 Me (11/22/16 03:00) Potassium Chlor 20 Meq Premix (Kcl 20 Me (11/22/16 03:00) Potassium Chlor 20 Meq Premix (Kcl 20 Me (11/22/16 03:00) Potassium Chlor 20 Meq Premix (Kcl 20 Me (11/22/16 03:00) Sodium Bicarbonate 8.4% Inj (Sodium Bica (11/22/16 03:00) Sodium Bicarbonate 8.4% Inj (Sodium Bica (11/22/16 03:00) Sodium Phosphate Inj (Sodium Phosphate I (11/22/16 03:00) Hemoglobin (Hgb) A1c (11/22/16 02:59) Basic Metabolic Panel (Bmp) (11/22/16 07:59) Basic Metabolic Panel (Bmp) (11/22/16 13:59) Basic Metabolic Panel (Bmp) (11/22/16 19:59) Basic Metabolic Panel (Bmp) (11/23/16 01:59) Magnesium (Mg) (11/22/16 07:59) Magnesium (Mg) (11/22/16 13:59) Magnesium (Mg) (11/22/16 19:59) Magnesium (Mg) (11/23/16 01:59) Phosphorus (Po4) (11/22/16 07:59) Phosphorus (Po4) (11/22/16 13:59) Phosphorus (Po4) (11/22/16 19:59) Phosphorus (Po4) (11/23/16 01:59) Beta Hydroxybutyrate (Acetone) (11/22/16 13:59) Beta Hydroxybutyrate (Acetone) (11/23/16 01:59) Admit Order (Ed Use Only) (11/22/16 06:05) Ct Abd/Pel W/O Iv Contrast (11/22/16 06:05) Vancomycin Inj (Vancomycin Inj) (11/22/16 06:05) Aztreonam Inj (Azactam Inj) (11/22/16 06:05) Metronidazole 500 Mg Inj (Flagyl 500 Mg (11/22/16 06:05) Labs Laboratory Tests Test 11/22/16 11/22/16 02:40 02:45 White Blood Count 18.1 TH/MM3 Red Blood Count 2.64 MIL/MM3 Hemoglobin 7.8 GM/DL Hematocrit 25.4 % Mean Corpuscular Volume 96.2 FL Mean Corpuscular Hemoglobin 29.6 PG Mean Corpuscular Hemoglobin 30.7 % Concent Red Cell Distribution Width 14.8 % Platelet Count 260 TH/MM3 Mean Platelet Volume 10.6 FL Neutrophils (%) (Auto) 92.0 % Lymphocytes (%) (Auto) 4.7 % Monocytes (%) (Auto) 3.0 % Eosinophils (%) (Auto) 0.0 % Basophils (%) (Auto) 0.3 % Neutrophils # (Auto) 16.6 TH/MM3 Lymphocytes # (Auto) 0.8 TH/MM3 Monocytes # (Auto) 0.5 TH/MM3 Eosinophils # (Auto) 0.0 TH/MM3 Basophils # (Auto) 0.1 TH/MM3 CBC Comment DIFF FINAL Differential Comment Blood Gas Puncture Site RT RADIAL Blood Gas Patient Temperature 98.6 Blood Gas HCO3 9 mmol/L Blood Gas Base Excess -17.3 mmol/L Blood Gas Oxygen Saturation 94 % Arterial Blood pH 7.21 Arterial Blood Partial 24 mmHg Pressure CO2 Arterial Blood Partial 113 mmHG Pressure O2 Arterial Blood Oxygen Content 9.8 Vol % Arterial Blood 2.6 % Carboxyhemoglobin Arterial Blood Methemoglobin 1.2 % Blood Gas Hemoglobin 7.2 G/DL Oxygen Delivery Device ROOM AIR Blood Gas Inspired Oxygen 21 % Sodium Level 140 MEQ/L Potassium Level 4.8 MEQ/L Chloride Level 101 MEQ/L Carbon Dioxide Level 12.0 MEQ/L Anion Gap 27 MEQ/L Blood Urea Nitrogen 69 MG/DL Creatinine 3.88 MG/DL Estimat Glomerular Filtration 15 ML/MIN Rate Random Glucose 1016 MG/DL Calcium Level 7.7 MG/DL Magnesium Level 3.2 MG/DL Total Bilirubin 0.4 MG/DL Aspartate Amino Transf 11 U/L (AST/SGOT) Alanine Aminotransferase 18 U/L (ALT/SGPT) Alkaline Phosphatase 184 U/L Troponin I 0.04 NG/ML Total Protein 5.9 GM/DL Albumin 2.5 GM/DL Lipase 39489 U/L B-Hydroxybutyrate 12.18 MMOL/L Urine Color LIGHT-YELLOW Urine Turbidity HAZY Urine pH 5.5 Urine Specific [place] 1.017 Urine Protein 100 mg/dL Urine Glucose (UA) 1000 mg/dL Urine Ketones 40 mg/dL Urine Occult Blood SMALL Urine Nitrite NEG Urine Bilirubin NEG Urine Urobilinogen LESS THAN 2.0 MG/DL Urine Leukocyte Esterase NEG Urine RBC LESS THAN 1 /hpf Urine WBC 2 /hpf Urine Squamous Epithelial 1 /hpf Cells Urine Amorphous Sediment OCC Urine Hyaline Casts 1 /lpf Urine Mucus FEW /lpf Microscopic Urinalysis Comment CULT NOT INDICATED Lactic Acid Level 1.7 mmol/L [facility] Medical Decision Making Medical Screen Exam Complete: Yes Emergency Medical Condition: Yes Medical Record Reviewed: Yes Interpretation(s) Last Impressions Abdomen/Pelvis CT 11/22/16604 Signed Impressions: Service Date/Time: Tuesday, November 22, 2016 06:44 - CONCLUSION: 1. Nonspecific induration of the fat surrounding the pancreas and descending duodenum. This could represent acute pancreatitis or a duodenitis. Suggest correlation with clinical history and laboratory values. 2. Small volume of free fluid is present within the pelvis. 3. Low density of the cardiac blood pole is suggestive of anemia. Jim Michaels MD Head CT 11/22/16 8644 Signed Impressions: Service Date/Time: Tuesday, November 22, 2016 03:32 - CONCLUSION: Unremarkable study. Tr Luna MD Chest X-Ray 11/22/164 Signed Impressions: Service Date/Time: Tuesday, November 22, 2016 02:56 - CONCLUSION: No acute cardiopulmonary disease. Tr Luna MD Differential Diagnosis DKA, versus hyperosmolar hyperglycemia, versus pancreatitis, versus dehydration , versus metabolic encephalopathy Narrative Course During the course of the patients emergency department visit, the patients history, examination, and differential diagnosis were reviewed with the patient. The patient had IV access obtained and blood work sent for analysis. The patient was placed on a property assessment monitor with oximetry and blood pressure monitoring. The patient's blood sugar was noted to be critically high on arrival. The patient was initially provided normal saline 2 L wide open. The patients laboratory studies were reviewed and remarkable for a white count of 18.1, hemoglobin 7.8, platelets 260, neutrophils 92, CMP is remarkable for CO2 of 12, anion gap 27, BUN 69, creatinine 3.88 which is greatly increased compared to previously, glucose 1016, calcium 7.7, magnesium 3.2, AST 11, alkaline phosphatase 184, troponin I 0.04, lipase 10,739, lactic acid 1.7, ABG shows a pH of 7.21, PCO2 24, PO2 113, bicarbonate 9, beta hydroxybutyrate is 12.18, urinalysis shows 100 protein, thousand glucose, 40 ketones, small occult blood, culture not indicated. Radiology studies were reviewed and remarkable for a chest x-ray that shows no acute abnormality, CT scan of the brain shows no acute abnormality. CT scan of the abdomen and pelvis shows nonspecific induration of the fat surrounding the pancreas and descending duodenum this could represent acute pancreatitis or duodenitis, suggest clinical correlation, small volume of free fluid is present within the pelvis, low density of the cardiac blood pole suggestive of anemia. The patient was typed and crossmatched for 2 units of packed red blood cells to be administered. The patient's case was discussed with Dr. Fuentes who did agree to admit the patient for further evaluation and treatment at this time. The patients results were discussed with the patient, including the plan of care. I explained that further testing and/ or monitoring is indicated based on the patients history, examination, and/ or laboratory findings. Therefore, I recommended admission for additional evaluation. The patient expressed understanding and was agreeable with this plan. The patient was admitted to the hospital in critical condition and sent to a bed under the care of the straightening machine operator service. Critical Care Narrative Aggregate critical care time was 35 minutes. Time to perform other separately billable procedures was not included in the critical care time. My time did not include minutes spent treating any other patients simultaneously or on activities that did not directly contribute to the patient's treatment. The services I provided to this patient were to treat and/or prevent clinically significant deterioration that could result in: Cardiovascular collapse, versus respiratory failure from fluid overload, versus cerebral edema I provided critical care services requiring my management, as noted below: Chart data review, documentation time, medication orders and management, vital sign assessments/reviewing monitor data, ordering and reviewing lab tests, ordering and interpreting/reviewing x-rays and diagnostic studies, care of the patient and discussion of the patient with the admitting physicians. Physician Communication Physician Communication The patient's case was discussed with Dr. Fuentes who did agree to admit the patient for further evaluation and treatment at this time. Diagnosis Primary Impression: DKA (diabetic ketoacidoses) Qualified Code: E10.10 - Diabetic ketoacidosis without coma associated with type 1 diabetes mellitus Additional Impressions: Pancreatitis Qualified Code: K85.90 - Acute pancreatitis without infection or necrosis, unspecified pancreatitis type Acute renal failure Qualified Code: N17.9 - Acute renal failure, unspecified acute renal failure type Anemia Qualified Code: D64.9 - Anemia, unspecified type Admitting Information Admitting Physician Requests: it Kassandra Williamson MD Nov 22, 2016 04:24
[2016-11-22] MEDS: INSULIN REGULAR (IV INFUSION) 100 UNITS in SODIUM CHLORIDE 0.9% INJ 99 ML IV SCH ×2 (04:50→17:21)
[2016-11-22] MEDS ORDERED: VANCOMYCIN INJ 1,000 MG in SODIUM CHLOR 0.9% 250 ML INJ 250 ML IV STA (06:05)
[2016-11-22] MEDS ORDERED: metroNIDAZOLE 500 MG INJ 100 ML IV STA (06:05)
[2016-11-22] MEDS ORDERED: AZTREONAM INJ 2,000 MG in SODIUM CHLORIDE 0.9% INJ 100 ML IV STA (06:05)
[2016-11-22] MEDS ORDERED: MAGNESIUM HYDROXIDE SUSP 30 ML CUP PO PRN (06:30)
[2016-11-22] MEDS ORDERED: MORPHINE SULFATE 4 MG/ML INJ IV PRN (06:30)
[2016-11-22] MEDS ORDERED: BISACODYL 10 MG SUPP RECTAL PRN (06:30)
[2016-11-22] MEDS ORDERED: MISCELLANEOUS NURSING INFORMATION XX SCH (06:30)
[2016-11-22] MEDS ORDERED: ONDANSETRON HCL 4 MG/2 ML VIAL IV PRN (06:30)
[2016-11-22] MEDS ORDERED: ACETAMINOPHEN 325 MG TAB PO PRN (06:30)
[2016-11-22] MEDS ORDERED: RESP: ALBUTEROL 2.5 MG/3 ML NEB (PRN) INH (06:30)
[2016-11-22] MEDS ORDERED: SENNOSIDES 8.6 MG TAB PO PRN (06:30)
[2016-11-22] MEDS ORDERED: CHLORHEXIDINE GLUCONATE 2 % 1 PACK (2 CLOTHS) TOP PRN (06:30)
[2016-11-22] MEDS ORDERED: LACTULOSE SYRUP 20 GM/30 ML CUP PO PRN (06:30)
--- NOTE | 2016-11-22 07:08 | RADRPT ---
EXAM DATE/TIME: 11/22/2016 06:44 [place] COMPARISON: CT ABDOMEN & PELVIS W/O CONTRAST, January 22, 2016, 13:14. INDICATIONS : Uncontrolled diabetes; unresponsive. ORAL CONTRAST: No oral contrast ingested. RADIATION DOSE: 9.96 CTDIvol (mGy) MEDICAL HISTORY : Hypertension. Renal failure, chronic. Diabetes mellitus type 1.Lupus SURGICAL HISTORY : Cholecystectomy. Hysterectomy. section. ENCOUNTER: Initial ACUITY: 1 day PAIN SCALE: Non-responsive LOCATION: abdomen TECHNIQUE: Volumetric scanning of the abdomen and pelvis was performed. Using automated exposure control and ad justment of the mA and/or kV according to patient size, radiation dose was kept as low as reasonably achievable to obtain optimal diagnostic quality images. FINDINGS: LOWER LUNGS: There is dependent atelectasis and respiratory motion artifact. Low density of the cardiac blood pool is suggestive of anemia. LIVER: Homogeneous density without lesion. There is no dilation of the biliary tree. There are clips in th e gallbladder fossa related to prior cholecystectomy. SPLEEN: Normal size without lesion. PANCREAS: There is mild induration of the fat surrounding the pancreas. There is no duct dilatation, mass, or c alcification appreciated. KIDNEYS: Normal in size and shape. There is no mass, stone, or hydronephrosis. ADRENAL GLANDS: Within normal limits. VASCULAR: There is no aortic aneurysm. There is mild atherosclerotic disease. BOWEL/MESENTERY: Stomach demonstrates no abnormality. There is possible wall thickening of the ascending duodenum with adjacent induration of the perienteric fat in the retroperitoneum. Distal small bowel and colon demo nstrate no acute finding. There is no free intraperitoneal air. There is a small volume of free fluid in the pelvis. ABDOMINAL WALL: Within normal limits. RETROPERITONEUM: There is no lymphadenopathy. BLADDER: Decompressed with a Maurer catheter present. REPRODUCTIVE: Uterus is absent. No adnexal abnormality is seen. INGUINAL: There is no lymphadenopathy or hernia. MUSCULOSKELETAL: There are degenerative changes of the lumbar spine. CONCLUSION: 1. Nonspecific induration of the fat surrounding the pancreas and descending duodenum. This could rep resent acute pancreatitis or a duodenitis. Suggest correlation with clinical history and laboratory v alues. 2. Small volume of free fluid is present within the pelvis. 3. Low density of the cardiac blood pole is suggestive of anemia. Jim Michaels MD on November 22, 2016 at 7:01 Board Certified Radiologist. This report was verified electronically.
[2016-11-22] MEDS ORDERED: SODIUM CHLOR 0.9% 250 ML INJ 250 ML IV ONE (07:30)
[2016-11-22] MEDS: SODIUM CHLORIDE 0.9% FLUSH 10 ML FLUSH IV FLUSH SCH ×2 (09:00→20:31)
--- NOTE | 2016-11-22 09:32 | MH ---
cc: SHIVANI WAYNE M.D. DATE OF ADMISSION: 11/22/2016 DATE OF : 1970 HISTORY OF PRESENT ILLNESS The patient is a 46-year-old female with a past medical history of hypertension, anemia, diabetes mellitus, lupus and seizure disorder, who presented to [facility] ED with a critically high blood sugar noted at home. The patient was also confused. The patient's family called the ambulance service and she was noted prior to arrival to be sleepy and slowly answering questions. The patient was found in DKA and she had a blood sugar of 1016 on a BMP with metabolic acidosis and anion gap of 27. ABG was performed on room air oxygen which showed severe metabolic acidosis with a pH of 7.2, CO2 24, PAO2 113, bicarb 9, saturation 94%. In the ER she was given regular insulin 5 units IV push along with 2 liters of normal saline boluses and subsequently placed on insulin drip per DKA protocol. She is currently on 7.5 units per hour. Other significant laboratory data showed acute renal failure with a BUN of 69, creatinine 3.88 and leukocytosis with WBC of 18.1 and hemoglobin 7.8. The patient also was found to have acute pancreatitis with a lipase level of 10,739. A CT of the abdomen and pelvis showed findings likely representing acute pancreatitis or duodenitis. She was given aztreonam, Flagyl and vancomycin in the ER. Chest x-ray on arrival showed no acute cardiopulmonary disease and CT scan of the brain was obtained as well which was unremarkable. The patient is afebrile and when seen she is on room air oxygen with a saturation of 99% and blood pressure 109/61 with a pulse of 90. She denies any chest pain, shortness of breath, nausea, vomiting, abdominal pain or any constitutional symptoms. She was recently admitted on November 08 for DKA as well. The patient overall is a poor historian. PAST MEDICAL HISTORY 1. Bronchial asthma. 2. Lupus. 3. Hypertension. 4. Diabetes mellitus. 5. Seizure disorder. 6. History of CVA. PAST SURGICAL HISTORY 1. . 2. Cholecystectomy. 3. Hysterectomy. 4. Left foot surgery. SOCIAL HISTORY Occasional drinker. Non-smoker. ALLERGIES 1. PENICILLIN. 2. SULFA. 3. MACROBID. 4. LEVEMIR. 5. ASPIRIN. 6. BANANAS. 7. ADHESIVE TAPE. MEDICATIONS Reported medications include: 1. Levaquin. 2. Lantus. 3. Nifedipine. 4. NovoLog insulin. 5. Dilantin. 6. Clonidine. 7. Keppra. 8. Lopressor. 9. Atorvastatin. FAMILY HISTORY Noncontributory. REVIEW OF SYSTEMS As per HPI. The rest of the review of systems is unremarkable. His wound. PHYSICAL EXAMINATION GENERAL: A 46-year-old female lying in bed in no acute respiratory distress on room air oxygen. VITAL SIGNS: Afebrile. Pulse 90, blood pressure 109/61, saturation 99% on room air. HEENT: Atraumatic, normocephalic. Pupils equal, round and reactive to light and accommodation. Extraocular muscles intact. NECK: Supple. No JVD, adenopathy or thyromegaly. Trachea in the midline. CARDIOVASCULAR: Regular rate and rhythm. Normal S1, S2. No murmurs, rubs or gallops noted. PULMONARY: Bilateral equal entry. No rales or wheezing. ABDOMEN: Soft, nontender, no distention. Positive bowel sounds. EXTREMITIES: No cyanosis, clubbing or edema. NEUROLOGIC: No focal sensory deficit. LABORATORY DATA Sodium 140, potassium 4.8, chloride 101, CO2 12, BUN 69, creatinine 3.88, glucose 1016, lactic acid 1.7, magnesium 3.2, calcium 7.7, AST 11, AST 18, alkaline phosphatase 184, total bilirubin 0.4, lipase 10,739, albumin 2.5. WBC 18.1, hemoglobin 7.8, hematocrit 25.4, platelet count 260. Beta-hydroxybutyrate 12.18. Urinalysis negative for leukocyte esterase, 2 wbc's, positive glucose, protein and ketones. RADIOGRAPHIC STUDIES CT abdomen and pelvis showed findings likely representing acute pancreatitis or duodenitis. Chest x-ray showed no acute cardiopulmonary disease. CT brain negative for acute intracranial findings. IMPRESSION 1. Diabetic ketoacidosis. 2. Anion gap metabolic acidosis. 3. Acute renal failure. 4. Acute pancreatitis. 5. Leukocytosis. 6. Anemia. 7. Hypertension. 8. History of diabetes mellitus. 9. History of seizure disorder. 10. History of CVA. 11. History of bronchial asthma. RECOMMENDATIONS 1. Monitor neuro status closely and avoid sedatives. Will resume her antiseizure meds. Patient is on Keppra 500 mg p.o. b.i.d., Dilantin 100 mg p.o. t.i.d. Will check Dilantin level. In addition will obtain alcohol level and urine drug screen. 2. Oxygen p.r.n. to maintain sats above 92%. 3. Bronchodilators on a p.r.n. basis. 4. Aspiration precautions. 5. Monitor heart rate and blood pressure closely and maintain MAP greater than 65 mmHg. Lactic acid level measured at 1.7. 6. Monitor renal function, I's and O's, and avoid nephrotoxins. Electrolyte replacement as needed. She was given 2 liter boluses of normal saline and is currently on NS at 250 mL an hour per DKA protocol. 7. Keep n.p.o. for now and place on Protonix 40 mg IV daily. 8. Monitor lipase level and consult GI service. 9. Continue with antibiotics in the form of aztreonam and monitor for signs of infections which include fever and WBC. Follow-up on blood cultures performed in the ER. She was given vancomycin, Flagyl and aztreonam in the ED. 10. Continue with insulin drip currently at 7.5 units per hour. Monitor BMP q.6h., and beta-hydroxybutyrate q.12h. Once anion gap is closed then will transition to sliding scale insulin with long-acting insulin. Of note the patient is allergic to Levemir. 11. Continue with IV fluids, NS at 250 mL an hour. Once blood sugar is less than 250 then will switch to D5 NS at 200 mL an hour. 12. Monitor CBC and coags. 13. GI prophylaxis with Protonix 40 mg daily and DVT prophylaxis with SCDs. Will hold off on chemical anticoagulation prophylaxis for now given the underlying anemia. 14. Further recommendations will be based on the hospital course. MD SAFIA Bailey/MELY /8:41 AM /9:15 AM
[2016-11-22 09:39] LABS: AMPHETAMINE, URINE NEG (NEG); BARBITURATES, URINE NEG (NEG); COCAINE, URINE NEG (NEG)
[2016-11-22] MEDS: PANTOPRAZOLE SODIUM 40 MG VIAL IV SCH (10:07)
[2016-11-22] MEDS: levETIRAcetam 500 MG TAB PO SCH ×2 (10:07→20:31)
[2016-11-22] MEDS: ATORVASTATIN 80 MG TAB PO SCH (10:08)
[2016-11-22] MEDS: PHENYTOIN SODIUM 100 MG CAP PO SCH ×3 (10:08→17:19)
[2016-11-22] MEDS: DOCUSATE SODIUM 50 MG/SENNA 8.6 MG TAB PO SCH ×2 (10:08→20:31)
[2016-11-22] MEDS: AZTREONAM INJ 1,000 MG in SODIUM CHLORIDE 0.9% INJ 100 ML IV SCH ×2 (11:11→20:31)
[2016-11-22 12:17] LABS: BASOPHIL % 0.4 % (0.0-2.0); EOSINOPHIL % 0.1 % (0.0-4.0); HEMATOCRIT 22.1 % (35.0-46.0); LYMPH % 5.5 % (9.0-44.0); LYMPHOCYTE # 0.7 TH/MM3 (1.0-4.8); MEAN CELL VOLUME 87.2 FL (80.0-100.0); MEAN CORPUSCULAR HEMOGLOBIN 28.2 PG (27.0-34.0); MEAN CORPUSCULAR HGB CONC 32.4 % (32.0-36.0); MONO % 2.2 % (0.0-8.0); NEUT % 91.8 % (16.0-70.0); PLATELET COUNT 239 TH/MM3 (150-450); RED BLOOD COUNT 2.54 MIL/MM3 (4.00-5.30); RED CELL DISTRIBUTION WIDTH 14.2 % (11.6-17.2); WHITE BLOOD COUNT 13.1 TH/MM3 (4.0-11.0)
[2016-11-22 12:20] LABS: HEMO FLAGS AUTO DIFF
[2016-11-22 12:26] LABS: PROTHROMBIN TIME - PATIENT 10.7 SEC (9.8-11.6)
[2016-11-22 12:44] LABS: BICARBONATE 17.4 MEQ/L (21.0-32.0); MAGNESIUM 2.9 MG/DL (1.5-2.5); POTASSIUM 4.1 MEQ/L (3.5-5.1)
[2016-11-22 13:01] LABS: SCAN/DIFF AUTO DIFF CONFIRMED
[2016-11-22 13:05] LABS: CALCIUM-PROTEIN CORRECTED 8.2 MG/DL (8.5-10.1)
--- NOTE | 2016-11-22 18:15 | EKG ---
Date Performed: 11/22/2016 Time Performed: 02:45:03 PTAGE: 46 years EKG: Sinus rhythm WITH SHORT CA INTERVAL NONSPECIFIC T-WAVE ABNORMALITY When compared to previous tracing, slight vari ation of the Nonspecific T wave abnormalities. BORDERLINE ECG PREVIOUS TRACING : 11/08/2016 20.38 DOCTOR: Patrick Williamson Interpretating Date/Time 11/22/2016 18:14:23
[2016-11-22 20:00] LABS: BETA-HYDROXYBUTYRATE 0.15 MMOL/L (0.00-0.39); BICARBONATE 21.7 MEQ/L (21.0-32.0); MAGNESIUM 2.7 MG/DL (1.5-2.5); POTASSIUM 3.7 MEQ/L (3.5-5.1)
[2016-11-22] MEDS ORDERED: DC previous DKA orders (HMC 1917) ONE (20:30)
[2016-11-22] MEDS ORDERED: GLUCAGON 1 MG/ML VIAL OTHER PRN ×2 (20:30)
[2016-11-22] MEDS ORDERED: DC Insulin drip 2 hrs post basal insulin dose ONE (20:30)
[2016-11-22] MEDS ORDERED: DEXTROSE 50% IN WATER 50 ML VIAL(D50) IV PRN (20:30)
[2016-11-22 20:31] LABS: CALCIUM-PROTEIN CORRECTED 8.4 MG/DL (8.5-10.1)
[2016-11-22] MEDS: INSULIN GLARGINE 1,000 UNITS/10 ML VIAL SQ SCH (22:00)
[2016-11-23] VITALS (17 sets, daily range): BP systolic 101–170; BP diastolic 51–92; PULSE 76–100; RESP 12–19; TEMP 98.1–98.9; O2SAT 97–100
[2016-11-23] MEDS: CHLORHEXIDINE GLUCONATE 2 % 1 PACK (2 CLOTHS) TOP SCH ×2 (04:00→23:59)
[2016-11-23 04:52] LABS: AUTOMATED NEUTROPHIL # 8.9 TH/MM3 (1.8-7.7); BASOPHIL % 0.3 % (0.0-2.0); EOSINOPHIL # 0.1 TH/MM3 (0-0.4); EOSINOPHIL % 1.1 % (0.0-4.0); HEMATOCRIT 23.1 % (35.0-46.0); HEMO FLAGS DIFF FINAL; LYMPH % 6.7 % (9.0-44.0); LYMPHOCYTE # 0.7 TH/MM3 (1.0-4.8); MEAN CELL VOLUME 87.6 FL (80.0-100.0); MEAN CORPUSCULAR HEMOGLOBIN 28.6 PG (27.0-34.0); MEAN CORPUSCULAR HGB CONC 32.6 % (32.0-36.0); MONO % 3.6 % (0.0-8.0); NEUT % 88.3 % (16.0-70.0); PLATELET COUNT 201 TH/MM3 (150-450); RED BLOOD COUNT 2.64 MIL/MM3 (4.00-5.30); RED CELL DISTRIBUTION WIDTH 14.2 % (11.6-17.2); WHITE BLOOD COUNT 10.1 TH/MM3 (4.0-11.0)
[2016-11-23] MEDS: AZTREONAM INJ 1,000 MG in SODIUM CHLORIDE 0.9% INJ 100 ML IV SCH ×3 (04:54→21:22)
--- NOTE | 2016-11-23 05:02 | RADRPT ---
EXAM DATE/TIME: 11/23/2016 03:41 [place] COMPARISON: CHEST SINGLE AP, November 22, 2016, 2:56. INDICATIONS : Shortness of breath. AMS. MEDICAL HISTORY : None. SURGICAL HISTORY : None. ENCOUNTER: Subsequent ACUITY: 3 weeks PAIN SCORE: 0/10 LOCATION: Bilateral CHEST FINDINGS: The lungs are clear without infiltrate, nodule, or mass. There is no appreciable pleural effusion fo r technique. Heart and mediastinum are unremarkable. There is increased density overlapping the left lower chest related to the patient's breast asymmetrical due to rotation. CONCLUSION: No acute cardiopulmonary disease. Tr Luna MD on November 23, 2016 at 4:59 Board Certified Radiologist. This report was verified electronically.
[2016-11-23 05:17] LABS: ALKALINE PHOSPHATASE 163 U/L (45-117); ALT (GPT) 15 U/L (10-53); ANION GAP 11 MEQ/L (5-15); AST (GOT) 15 U/L (15-37); BETA-HYDROXYBUTYRATE 2.35 MMOL/L (0.00-0.39); BLOOD UREA NITROGEN 40 MG/DL (7-18); CHLORIDE 122 MEQ/L (98-107); GLOMERULAR FILTRATION RATE 26 ML/MIN (>89); MAGNESIUM 2.7 MG/DL (1.5-2.5); SODIUM (NA) 153 MEQ/L (136-145); TOTAL BILIRUBIN ADULT 0.3 MG/DL (0.2-1.0)
[2016-11-23] MEDS ORDERED: MEDIUM DOSE INSULIN NOVOLOG SUPPLEMENTAL SCALE SQ SCH (07:00)
--- NOTE | 2016-11-23 07:36 | HHI.CCPN ---
Subjective Remarks/Hospital Course The patient is a 46-year-old female with a past medical history of hypertension , anemia, diabetes mellitus, lupus and seizure disorder, who presented to [facility] ED with a critically high blood sugar noted at home. The patient was also confused. The patient's family called the ambulance service and she was noted prior to arrival to be sleepy and slowly answering questions. The patient was found in DKA and she had a blood sugar of 1016 on a BMP with metabolic acidosis and anion gap of 27. ABG was performed on room air oxygen which showed severe metabolic acidosis with a pH of 7.2, CO2 24, PAO2 113 , bicarb 9, saturation 94%. In the ER she was given regular insulin 5 units IV push along with 2 liters of normal saline boluses and subsequently placed on insulin drip per DKA protocol. She is currently on 7.5 units per hour. Other significant laboratory data showed acute renal failure with a BUN of 69, creatinine 3.88 and leukocytosis with WBC of 18.1 and hemoglobin 7.8. The patient also was found to have acute pancreatitis with a lipase level of 10, 739. A CT of the abdomen and pelvis showed findings likely representing acute pancreatitis or duodenitis. She was given aztreonam, Flagyl and vancomycin in the ER. Chest x-ray on arrival showed no acute cardiopulmonary disease and CT scan of the brain was obtained as well which was unremarkable. The patient is afebrile and when seen she is on room air oxygen with a saturation of 99% and blood pressure 109/61 with a pulse of 90. She denies any chest pain, shortness of breath, nausea, vomiting, abdominal pain or any constitutional symptoms. She was recently admitted on November 08 for DKA as well. The patient overall is a poor historian. 11/23 No acute events overnight. Off Insulin drip renal function is improving with Cr: 2.40 from 2.69 last night. Afebrile. Objective Vital Signs Date Time Temp Pulse Resp B/P Pulse Ox O2 Delivery O2 Flow Rate FiO2 11/23/16 06:00 84 11/23/16 04:00 98.2 13 169/92 98 11/22/16 07:52 Room Air Intake and Output 11/22/16 11/22/16 11/23/16 08:00 16:00 00:00 Intake Total 2000 ml 2587 ml 1829 ml Output Total 850 ml 1250 ml 700 ml Balance 1150 ml 1337 ml 1129 ml Result Diagram: 11/23/16 0428 11/23/16 0428 Other Results Laboratory Tests Test 11/22/16 11/22/16 11/22/16 11/23/16 08:15 11:48 17:30 04:28 Nasal Screen MRSA (PCR) MRSA DETECTED White Blood Count 13.1 TH/MM3 10.1 TH/MM3 Red Blood Count 2.54 MIL/MM3 2.64 MIL/MM3 Hemoglobin 7.2 GM/DL 7.5 GM/DL Hematocrit 22.1 % 23.1 % Mean Corpuscular Volume 87.2 FL 87.6 FL Mean Corpuscular Hemoglobin 28.2 PG 28.6 PG Mean Corpuscular Hemoglobin 32.4 % 32.6 % Concent Red Cell Distribution Width 14.2 % 14.2 % Platelet Count 239 TH/MM3 201 TH/MM3 Mean Platelet Volume 9.8 FL 9.7 FL Neutrophils (%) (Auto) 91.8 % 88.3 % Lymphocytes (%) (Auto) 5.5 % 6.7 % Monocytes (%) (Auto) 2.2 % 3.6 % Eosinophils (%) (Auto) 0.1 % 1.1 % Basophils (%) (Auto) 0.4 % 0.3 % Neutrophils # (Auto) 12.0 TH/MM3 8.9 TH/MM3 Lymphocytes # (Auto) 0.7 TH/MM3 0.7 TH/MM3 Monocytes # (Auto) 0.3 TH/MM3 0.4 TH/MM3 Eosinophils # (Auto) 0.0 TH/MM3 0.1 TH/MM3 Basophils # (Auto) 0.0 TH/MM3 0.0 TH/MM3 CBC Comment AUTO DIFF DIFF FINAL Differential Comment AUTO DIFF CONFIRMED Prothrombin Time 10.7 SEC Prothromb Time International 1.0 RATIO Ratio Sodium Level 148 MEQ/L 153 MEQ/L 153 MEQ/L Potassium Level 4.1 MEQ/L 3.7 MEQ/L 4.0 MEQ/L Chloride Level 116 MEQ/L 123 MEQ/L 122 MEQ/L Carbon Dioxide Level 17.4 MEQ/L 21.7 MEQ/L 20.0 MEQ/L Anion Gap 15 MEQ/L 8 MEQ/L 11 MEQ/L Blood Urea Nitrogen 57 MG/DL 48 MG/DL 40 MG/DL Creatinine 3.14 MG/DL 2.69 MG/DL 2.40 MG/DL Estimat Glomerular Filtration 19 ML/MIN 23 ML/MIN 26 ML/MIN Rate Random Glucose 419 MG/DL 174 MG/DL 293 MG/DL Calcium Level 7.3 MG/DL 7.3 MG/DL 8.3 MG/DL Protein Corrected Calcium 8.2 MG/DL 8.4 MG/DL Phosphorus Level 2.6 MG/DL 1.6 MG/DL 2.0 MG/DL Magnesium Level 2.9 MG/DL 2.7 MG/DL 2.7 MG/DL Total Protein 5.5 GM/DL 5.1 GM/DL 5.7 GM/DL Phenytoin (Dilantin) Level 1.0 MCG/ML Triglycerides Level 217 MG/DL B-Hydroxybutyrate 0.15 MMOL/L 2.35 MMOL/L Total Bilirubin 0.3 MG/DL Aspartate Amino Transf 15 U/L (AST/SGOT) Alanine Aminotransferase 15 U/L (ALT/SGPT) Alkaline Phosphatase 163 U/L Albumin 2.2 GM/DL Lipase 6767 U/L Imaging Last Impressions Chest X-Ray 11/23/16 0000 Signed Impressions: Service Date/Time: Wednesday, November 23, 2016 03:41 - CONCLUSION: No acute cardiopulmonary disease. Tr Luna MD Abdomen/Pelvis CT 11/22/16 0605 Signed Impressions: Service Date/Time: Tuesday, November 22, 2016 06:44 - CONCLUSION: 1. Nonspecific induration of the fat surrounding the pancreas and descending duodenum. This could represent acute pancreatitis or a duodenitis. Suggest correlation with clinical history and laboratory values. 2. Small volume of free fluid is present within the pelvis. 3. Low density of the cardiac blood pole is suggestive of anemia. Jim Michaels MD Head CT 11/22/16 0234 Signed Impressions: Service Date/Time: Tuesday, November 22, 2016 03:32 - CONCLUSION: Unremarkable study. Tr Luna MD Objective Remarks GENERAL: Patient is 46 yo lying in bed in NAD SKIN: Warm and dry. HEAD: Normocephalic. EYES: No scleral icterus. No injection or drainage. NECK: Supple, trachea midline. No JVD or lymphadenopathy. CARDIOVASCULAR: Regular rate and rhythm without murmurs, gallops, or rubs. RESPIRATORY: Breath sounds equal bilaterally. No accessory muscle use. GASTROINTESTINAL: Abdomen soft, non-tender, nondistended. MUSCULOSKELETAL: No cyanosis, or edema. BACK: Nontender without obvious deformity. No CVA tenderness. A/P Assessment and Plan 1. DKA- resolved 2. AG metabolic acidosis. 3. Acute renal failure...improving 4. Acute pancreatitis. 5. Leukocytosis...trending down 6. Anemia. 7. Hypertension. 8. History of diabetes mellitus. 9. History of seizure disorder. 10. History of CVA. 11. History of bronchial asthma. RECOMMENDATIONS Plan: Neuro: Monitor neuro status closely and avoid sedatives. on Keppra 500 mg p.o. b.i.d., Dilantin 100 mg p.o. t.i.d. UDS is negative. Pulm: Oxygen p.r.n. to maintain sats above 92%. Bronchodilators on a p.r.n. basis. CV: Monitor HR and BP and maintain MAP>65 mmHg. Lactic acid level measured at 1.7. : Monitor renal function, I's and O's, and avoid nephrotoxins. Electrolyte replacement as needed. Place on 1/2NS@125ml/hr, monitor BMP GI: On Protonix 40 mg IV daily. On PO diabetic diet. Monitor lipase level ( trending down) GI service is consulted. ID: Continue with abx(Aztreonam) and monitor for signs of infections(fever and WBC). Follow-up on blood cultures from 11/22: NGTD She was given vancomycin, Flagyl and aztreonam in the ED. Endo: Off insulin drip, Continue with SSI and Lantus 10units qhs. Of note patient is allergic to Levemir. Heme: Monitor CBC and coags. Guaiac stool for Heme. GI prophylaxis with Protonix 40 mg daily and DVT prophylaxis with SCDs. Not on chemical anticoagulation prophylaxis given underlying anemia. Level [address] MD Nov 23, 2016 07:36
[2016-11-23] MEDS: PHENYTOIN SODIUM 100 MG CAP PO SCH ×3 (08:26→17:33)
[2016-11-23] MEDS: PANTOPRAZOLE SODIUM 40 MG VIAL IV SCH (08:26)
[2016-11-23] MEDS: ATORVASTATIN 80 MG TAB PO SCH (08:26)
[2016-11-23] MEDS: levETIRAcetam 500 MG TAB PO SCH ×2 (08:26→21:23)
[2016-11-23] MEDS: DOCUSATE SODIUM 50 MG/SENNA 8.6 MG TAB PO SCH ×2 (08:27→21:00)
[2016-11-23] MEDS: SODIUM CHLOR 0.45% 1000 ML INJ 1,000 ML IV SCH ×3 (08:27→23:51)
[2016-11-23] MEDS: SODIUM CHLORIDE 0.9% FLUSH 10 ML FLUSH IV FLUSH SCH ×2 (08:27→21:00)
[2016-11-23] MEDS: INSULIN ASPART SUPPLEMENTAL SCALE SQ SCH ×4 (11:08→23:58)
[2016-11-23 13:11] LABS: HEMOGLOBIN A1a 0.9 %; HEMOGLOBIN Ao 45.7 %; HEMOGLOBIN LA1C 2.1 %; HEMOGLOBIN P3 4.5 %
[2016-11-23] MEDS: INSULIN GLARGINE 1,000 UNITS/10 ML VIAL SQ SCH (21:25)
[2016-11-24] VITALS (25 sets, daily range): BP systolic 104–166; BP diastolic 55–104; PULSE 83–100; RESP 7–32; TEMP 98.1–98.6; O2SAT 96–98
[2016-11-24] MEDS: INSULIN ASPART SUPPLEMENTAL SCALE SQ SCH ×5 (04:21→19:52)
[2016-11-24] MEDS: AZTREONAM INJ 1,000 MG in SODIUM CHLORIDE 0.9% INJ 100 ML IV SCH ×3 (04:22→19:49)
[2016-11-24 06:48] LABS: AUTOMATED NEUTROPHIL # 4.5 TH/MM3 (1.8-7.7); BASOPHIL % 0.8 % (0.0-2.0); EOSINOPHIL # 0.1 TH/MM3 (0-0.4); EOSINOPHIL % 1.4 % (0.0-4.0); HEMATOCRIT 21.7 % (35.0-46.0); LYMPH % 14.5 % (9.0-44.0); LYMPHOCYTE # 0.8 TH/MM3 (1.0-4.8); MEAN CELL VOLUME 88.3 FL (80.0-100.0); MEAN CORPUSCULAR HEMOGLOBIN 28.4 PG (27.0-34.0); MEAN CORPUSCULAR HGB CONC 32.2 % (32.0-36.0); MONO % 5.1 % (0.0-8.0); NEUT % 78.2 % (16.0-70.0); PLATELET COUNT 123 TH/MM3 (150-450); RED BLOOD COUNT 2.46 MIL/MM3 (4.00-5.30); RED CELL DISTRIBUTION WIDTH 14.5 % (11.6-17.2); WHITE BLOOD COUNT 5.7 TH/MM3 (4.0-11.0)
--- NOTE | 2016-11-24 07:07 | HHI.CCPN ---
Subjective Remarks/Hospital Course The patient is a 46-year-old female with a past medical history of hypertension , anemia, diabetes mellitus, lupus and seizure disorder, who presented to [facility] ED with a critically high blood sugar noted at home. The patient was also confused. The patient's family called the ambulance service and she was noted prior to arrival to be sleepy and slowly answering questions. The patient was found in DKA and she had a blood sugar of 1016 on a BMP with metabolic acidosis and anion gap of 27. ABG was performed on room air oxygen which showed severe metabolic acidosis with a pH of 7.2, CO2 24, PAO2 113 , bicarb 9, saturation 94%. In the ER she was given regular insulin 5 units IV push along with 2 liters of normal saline boluses and subsequently placed on insulin drip per DKA protocol. She is currently on 7.5 units per hour. Other significant laboratory data showed acute renal failure with a BUN of 69, creatinine 3.88 and leukocytosis with WBC of 18.1 and hemoglobin 7.8. The patient also was found to have acute pancreatitis with a lipase level of 10, 739. A CT of the abdomen and pelvis showed findings likely representing acute pancreatitis or duodenitis. She was given aztreonam, Flagyl and vancomycin in the ER. Chest x-ray on arrival showed no acute cardiopulmonary disease and CT scan of the brain was obtained as well which was unremarkable. The patient is afebrile and when seen she is on room air oxygen with a saturation of 99% and blood pressure 109/61 with a pulse of 90. She denies any chest pain, shortness of breath, nausea, vomiting, abdominal pain or any constitutional symptoms. She was recently admitted on November 08 for DKA as well. The patient overall is a poor historian. 11/23 No acute events overnight. Off Insulin drip renal function is improving with Cr: 2.40 from 2.69 last night. Afebrile. 11/24 Patient is more awake and alert today. Afebrile. Objective Vital Signs Date Time Temp Pulse Resp B/P Pulse Ox O2 Delivery O2 Flow Rate FiO2 11/24/16 06:00 94 11/24/16 04:00 98.6 32 104/55 98 11/22/16 07:52 Room Air Intake and Output 11/23/16 11/23/16 11/24/16 08:00 16:00 00:00 Intake Total 152 ml 1122 ml 894 ml Output Total 650 ml 975 ml 250 ml Balance -498 ml 147 ml 644 ml Result Diagram: 11/23/16 0428 11/23/16 0428 Imaging Last Impressions Chest X-Ray 11/23/16 0000 Signed Impressions: Service Date/Time: Wednesday, November 23, 2016 03:41 - CONCLUSION: No acute cardiopulmonary disease. Tr Luna MD Abdomen/Pelvis CT 11/22/16 0605 Signed Impressions: Service Date/Time: Tuesday, November 22, 2016 06:44 - CONCLUSION: 1. Nonspecific induration of the fat surrounding the pancreas and descending duodenum. This could represent acute pancreatitis or a duodenitis. Suggest correlation with clinical history and laboratory values. 2. Small volume of free fluid is present within the pelvis. 3. Low density of the cardiac blood pole is suggestive of anemia. Jim Michaels MD Head CT 11/22/16 0234 Signed Impressions: Service Date/Time: Tuesday, November 22, 2016 03:32 - CONCLUSION: Unremarkable study. Tr Luna MD Objective Remarks GENERAL: Patient is 46 yo lying in bed in NAD SKIN: Warm and dry. HEAD: Normocephalic. EYES: No scleral icterus. No injection or drainage. NECK: Supple, trachea midline. No JVD or lymphadenopathy. CARDIOVASCULAR: Regular rate and rhythm without murmurs, gallops, or rubs. RESPIRATORY: Breath sounds equal bilaterally. No accessory muscle use. GASTROINTESTINAL: Abdomen soft, non-tender, nondistended. MUSCULOSKELETAL: No cyanosis, or edema. BACK: Nontender without obvious deformity. No CVA tenderness. A/P Assessment and Plan 1. DKA- resolved 2. AG metabolic acidosis..resolved 3. Acute renal failure...improving 4. Acute pancreatitis. 5. Leukocytosis...trending down 6. Anemia. 7. Hypertension. 8. History of diabetes mellitus. 9. History of seizure disorder. 10. History of CVA. 11. History of bronchial asthma. RECOMMENDATIONS Plan: Neuro: Monitor neuro status closely and avoid sedatives. on Keppra 500 mg p.o. b.i.d., Dilantin 100 mg p.o. t.i.d. UDS is negative. Pulm: Oxygen p.r.n. to maintain sats above 92%. Bronchodilators on a p.r.n. basis. CV: Monitor HR and BP and maintain MAP>65 mmHg. Lactic acid level measured at 1.7. : Monitor renal function, I's and O's, and avoid nephrotoxins. Electrolyte replacement per protocol. Change IVF D5W@75ml/hr monitor sodium level. Will need K, Phos replacement today. GI: On Protonix 40 mg IV daily. On PO diabetic diet. Monitor lipase level ( trending down) GI service is consulted. ID: Continue with abx(Aztreonam) and monitor for signs of infections(fever and WBC). Follow-up on blood cultures from 11/22: NGTD She was given vancomycin, Flagyl and aztreonam in the ED. Endo: Continue with SSI and Lantus 10units qhs. Of note patient is allergic to Levemir. Heme: Monitor CBC and coags. Guaiac stool for Heme. GI prophylaxis with Protonix 40 mg daily and DVT prophylaxis with SCDs. Not on chemical anticoagulation prophylaxis given underlying anemia. Follow up on labs today Level [address] MD Nov 24, 2016 07:07
[2016-11-24 07:13] LABS: BICARBONATE 22.3 MEQ/L (21.0-32.0); POTASSIUM 3.3 MEQ/L (3.5-5.1)
[2016-11-24 07:33] LABS: MAGNESIUM 2.6 MG/DL (1.5-2.5)
[2016-11-24 07:44] LABS: HEMO FLAGS AUTO DIFF
[2016-11-24 07:45] LABS: SCAN/DIFF AUTO DIFF CONFIRMED
[2016-11-24] MEDS: PHENYTOIN SODIUM 100 MG CAP PO SCH ×3 (07:46→16:48)
[2016-11-24] MEDS: PANTOPRAZOLE SODIUM 40 MG VIAL IV SCH (07:46)
[2016-11-24] MEDS: levETIRAcetam 500 MG TAB PO SCH ×2 (07:47→19:48)
[2016-11-24] MEDS: SODIUM CHLORIDE 0.9% FLUSH 10 ML FLUSH IV FLUSH SCH ×2 (07:47→19:54)
[2016-11-24] MEDS: SODIUM CHLORIDE 0.9% FLUSH 10 ML FLUSH IV FLUSH PRN (07:47)
[2016-11-24] MEDS: ATORVASTATIN 80 MG TAB PO SCH (07:47)
[2016-11-24] MEDS: DOCUSATE SODIUM 50 MG/SENNA 8.6 MG TAB PO SCH ×2 (07:47→19:53)
[2016-11-24] MEDS: SODIUM CHLOR 0.45% 1000 ML INJ 1,000 ML IV SCH (07:48)
[2016-11-24] MEDS ORDERED: MAGNESIUM SULFATE INJ 2 GM in SODIUM CHLORIDE 0.9% INJ 96 ML IV PRN (10:00)
[2016-11-24] MEDS ORDERED: MAGNESIUM OXIDE 400 MG TAB PO PRN (10:00)
[2016-11-24] MEDS ORDERED: POTASSIUM CHLORIDE 25 MEQ EFFERVESCENT TAB PO PRN (10:00)
[2016-11-24] MEDS ORDERED: POTASSIUM PHOSPHATE MONOBASIC 500 MG TAB PO PRN (10:00)
[2016-11-24] MEDS ORDERED: SODIUM PHOSPHATE INJ 30 MMOL in SODIUM CHLOR 0.9% 250 ML INJ 240 ML IV PRN (10:00)
[2016-11-24] MEDS ORDERED: POTASSIUM CHLOR 40 MEQ PREMIX 100 ML IV PRN ×2 (10:00)
[2016-11-24] MEDS ORDERED: POTASSIUM PHOSPHATE INJ 30 MMOL in SODIUM CHLOR 0.9% 250 ML INJ 250 ML IV PRN (10:00)
[2016-11-24] MEDS ORDERED: POTASSIUM CHLOR 20 MEQ PREMIX 100 ML IV PRN ×2 (10:00)
[2016-11-24] MEDS ORDERED: POTASSIUM PHOSPHATE MONOBASIC 500 MG TAB PO/TUBE PRN (10:00)
[2016-11-24] MEDS ORDERED: MAGNESIUM SULFATE INJ 4 GM in SODIUM CHLORIDE 0.9% INJ 92 ML IV PRN (10:00)
[2016-11-24] MEDS: DEXTROSE 5% IN WATE 1000ML INJ 1,000 ML IV SCH (10:49)
--- NOTE | 2016-11-24 12:02 | PD.CONS ---
HPI History of Present Illness This is a 46 year old female w/ hx CVA, DM, seizure disorder, anemia who presented to the ER after finding a high BG value at home, with BG 1016 on admission and in DKA, lipase 10,739, per EMR. Pt is also anemic with hgb 7.[address] showed nonspecific induration fat surrounding pancreas, descending duodenom, could represent acute pancreatitis or duodenitis. Pt is poor historian and insists that "her pancreatitis has been removed." Per EMR pt was also confused. Pt denies any abdominal pain, hx pancreatitis. Her mother says she was having alot of n/v prior to coming to hospital, and had complained of abd pain. She reportedly has diarrhea that is dark brown. No hematemesis. She had work up for anemia few months ago with EGD/colonoscopy --> normal EGD, diverticulosis, no GI bleed, suspect anemia of chronic disease. (Jeanie Dodge) PFSH Past Medical History per EMR lupus seizures CVA DM anemia Past Surgical History c section cholecystectomy hysterectomy surgery left foot (Jeanie Dodge) Coded Allergies: Aspirin (Verified Allergy, Severe, 09/06/16) RASH Levemir (Verified Allergy, Severe, Sweats, funny feeling, mood swings, daze, 09/06/16) Penicillin (Verified Allergy, Severe, 09/06/16) Sulfa (Verified Allergy, Severe, 09/06/16) RASH Banana (Verified Allergy, Intermediate, Hives, 11/11/16) Adhesives (Verified Allergy, Unknown, 09/06/16) Macrobid (Unverified Allergy, Unknown, 09/06/16) *MDRO Multi-Drug Resistant Organism (Unverified Adverse Reaction, Unknown , 11/09/16) MRSA 2013 MRSA PCR Screen POSITIVE on 01/22/16 & 11/09/16 Family History unk Social History denies ETOH, tobacco, illicit drugs (Jeanie Dodge) Review of Systems Constitutional: DENIES: Fever Eyes: DENIES: Blurred vision Ears, nose, mouth, throat: DENIES: Hearing loss Respiratory: DENIES: Hemoptysis Cardiovascular: DENIES: Chest pain Gastrointestinal: COMPLAINS OF: Diarrhea, DENIES: Abdominal pain, Black stools , Bloody stools, Constipation, Nausea, Vomiting, Hematemesis Genitourinary: DENIES: Hematuria Musculoskeletal: DENIES: Muscle aches Integumentary: DENIES: Jaundice Neurologic: DENIES: Headache Psychiatric: COMPLAINS OF: Confusion (Jeanie Dodge) GI Exam Vitals I&O Vital Signs Date Time Temp Pulse Resp B/P Pulse Ox O2 Delivery O2 Flow Rate FiO2 11/24/16 10:00 96 11/24/16 09:00 93 9 154/84 11/24/16 08:00 98.5 100 10 140/77 98 11/24/16 08:00 100 11/24/16 07:01 90 18 143/77 11/24/16 07:00 90 18 11/24/16 06:00 94 11/24/16 04:00 86 11/24/16 04:00 98.6 86 32 104/55 98 11/24/16 03:00 93 11 146/72 11/24/16 02:00 86 11/24/16 02:00 86 11 137/71 11/24/16 01:00 83 13 105/57 11/24/16 00:00 98 11/24/16 00:00 98.5 98 18 124/69 96 11/24/16 00:00 98 18 124/69 11/23/16 23:00 93 12 117/60 11/23/16 22:02 97 18 145/68 11/23/16 22:00 91 11/23/16 22:00 91 17 11/23/16 21:00 94 12 124/60 99 11/23/16 20:00 98.3 90 12 107/51 11/23/16 20:00 90 11/23/16 19:00 100 15 123/58 11/23/16 18:00 91 11/23/16 18:00 91 12 116/56 99 11/23/16 17:00 95 15 145/68 100 11/23/16 16:00 84 11/23/16 16:00 98.5 82 18 101/57 99 11/23/16 14:00 97 11/23/16 12:00 98.9 92 19 166/89 98 11/23/16 12:00 92 I/O 6/13/17 6/13/17 11/23/16 11/24/16 11/24/16 11/24/16 07:00 15:00 23:00 07:00 15:00 23:00 Intake Total 152 ml 1122 ml 894 ml 944 ml Output Total 650 ml 975 ml 250 ml 350 ml Balance -498 ml 147 ml 644 ml 594 ml Intake Oral 50 ml 150 ml 150 ml 150 ml IV Total 102 ml 972 ml 744 ml 794 ml Output Urine Total 650 ml 975 ml 250 ml 350 ml # Bowel Movements 1 1 Imaging Last Impressions Chest X-Ray 11/23/16 0000 Signed Impressions: Service Date/Time: Wednesday, November 23, 2016 03:41 - CONCLUSION: No acute cardiopulmonary disease. Tr Luna MD Abdomen/Pelvis CT 11/22/16 0605 Signed Impressions: Service Date/Time: Tuesday, November 22, 2016 06:44 - CONCLUSION: 1. Nonspecific induration of the fat surrounding the pancreas and descending duodenum. This could represent acute pancreatitis or a duodenitis. Suggest correlation with clinical history and laboratory values. 2. Small volume of free fluid is present within the pelvis. 3. Low density of the cardiac blood pole is suggestive of anemia. Jim Michaels MD Head CT 11/22/16 0234 Signed Impressions: Service Date/Time: Tuesday, November 22, 2016 03:32 - CONCLUSION: Unremarkable study. Tr Luna MD Laboratory Test 11/24/16 04:58 White Blood Count 5.7 TH/MM3 Red Blood Count 2.46 MIL/MM3 Hemoglobin 7.0 GM/DL Hematocrit 21.7 % Mean Corpuscular Volume 88.3 FL Mean Corpuscular Hemoglobin 28.4 PG Mean Corpuscular Hemoglobin 32.2 % Concent Red Cell Distribution Width 14.5 % Platelet Count 123 TH/MM3 Mean Platelet Volume 10.6 FL Neutrophils (%) (Auto) 78.2 % Lymphocytes (%) (Auto) 14.5 % Monocytes (%) (Auto) 5.1 % Eosinophils (%) (Auto) 1.4 % Basophils (%) (Auto) 0.8 % Neutrophils # (Auto) 4.5 TH/MM3 Lymphocytes # (Auto) 0.8 TH/MM3 Monocytes # (Auto) 0.3 TH/MM3 Eosinophils # (Auto) 0.1 TH/MM3 Basophils # (Auto) 0.0 TH/MM3 CBC Comment AUTO DIFF Differential Comment AUTO DIFF CONFIRMED Sodium Level 154 MEQ/L Potassium Level 3.3 MEQ/L Chloride Level 121 MEQ/L Carbon Dioxide Level 22.3 MEQ/L Anion Gap 11 MEQ/L Blood Urea Nitrogen 28 MG/DL Creatinine 1.71 MG/DL Estimat Glomerular Filtration 39 ML/MIN Rate Random Glucose 143 MG/DL Calcium Level 8.2 MG/DL Phosphorus Level 1.7 MG/DL Magnesium Level 2.6 MG/DL Lipase 3724 U/L Date/Time Procedure Status Source Growth 11/22/16 02:30 Aerobic Blood Culture - Preliminary Resulted Blood Peripheral NO GROWTH IN 2 DAYS 11/22/16 02:30 Anaerobic Blood Culture - Preliminary Resulted Blood Peripheral NO GROWTH IN 2 DAYS Physical Examination HEENT:EOMI; normocephalic; atraumatic; no jaundice. CHEST: CTA CARDIAC: RRR ABDOMEN: Soft, nondistended, nontender; no hepatosplenomegaly; bowel sounds are present in all four quadrants. EXTREMITIES: No clubbing, cyanosis, or edema. SKIN: Normal; no rash; no jaundice. 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 Nonspecific induration of the fat surrounding the pancreas and descending duodenum. This could represent acute pancreatitis or a duodenitis. Suggest correlation with clinical history and laboratory values. 2. Small volume of free fluid is present within the pelvis. 3. Low density of the cardiac blood pole is suggestive of anemia. - anemia - hgb 7.0. EGD/colonoscopy 09/08/16 --> normal EGD, diverticulosis, no source bleeding, suspect anemia chronic disease. Hemoccult pending. - diarrhea - recent onset, unable to get meaningful hx from pt. PLAN - consider stool cx if diarrhea persists - supportive care - monitor HH - transfuse if needed - nothing further to add from GI standpoint, will sign off. Please reconsult if needed. This pt seen by myself and Dr Loza and this note is written on his behalf (Jeanie Dodge) Physician Comments Seen and examined with [employer], no clear etiology of pancreatitis. Lipase improving slowly. No abdominal pain. Has had mota of anemia in the past. Repeat labs in am, low fat diet. ? need for MRCP. Thank you (Rony Loza MD) Jeanie Dodge Nov 24, 2016 12:02 Rony Loza MD Nov 24, 2016 15:42
--- NOTE | 2016-11-24 12:55 | PD.CONS ---
Provisional Diagnosis Admission Date Nov 22, 2016 at 06:10 [place]. 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 History of Present Illness Service Psychiatry Consult Requested By Primary Care Physician Unknown HPI Pt has hx of slow mentation, at least in part due to CVA. Uncontrolled blood sugars have likely exacerbated her condition . Other medical issues, including pancreatitis likely to also negatively impact her mentation. Psychiatry has nothing to offer at this time. Patient's mentation was discussed with both her and her mother. Both assure this physician patient's mentation is baseline. Review of Systems Except as stated in HPI: all other systems reviewed are Neg Past Family Social History Coded Allergies: Aspirin (Verified Allergy, Severe, 09/06/16) RASH Levemir (Verified Allergy, Severe, Sweats, funny feeling, mood swings, daze, 09/06/16) Penicillin (Verified Allergy, Severe, 09/06/16) Sulfa (Verified Allergy, Severe, 09/06/16) RASH Banana (Verified Allergy, Intermediate, Hives, 11/11/16) Adhesives (Verified Allergy, Unknown, 09/06/16) Macrobid (Unverified Allergy, Unknown, 09/06/16) *MDRO Multi-Drug Resistant Organism (Unverified Adverse Reaction, Unknown , 11/09/16) MRSA 2013 MRSA PCR Screen POSITIVE on 01/22/16 & 11/09/16 Active Scripts Levofloxacin 500 Mg [id number] Mg PO DAILY 3 Days Ref 0 Prov:Eliana Clay MD 11/13/16 Insulin Glargine Inj (Lantus Inj)1,000 Unit/10 Ml Vial10 Units SQ HS #1 VIAL Ref 0 Prov:Eliana Clay MD 11/13/16 Nifedipine ER 24 HR 30 Mg Tab60 Mg PO DAILY #30 TAB Prov:Nahum Matamoros 10/25/16 Insulin Aspart Inj (Novolog Inj)100 Unit/Ml Inj1 Units SQ ACHS SLIDING SCALE 30 Days Prov:Nahum Matamoros 10/25/16 Phenytoin Extended (Dilantin)100 Mg [id number] Mg PO TID #90 CAP Ref 0 Prov:Maia Hairston MD 05/27/16 Reported Medications Clonidine 0.1 Mg Tab0.1 Mg PO DAILY #60 TAB Ref 0 11/08/16 Fluoxetine 10 Mg Tab10 Mg PO DAILY #30 TAB Ref 0 11/08/16 Levetiracetam 500 Mg [id number] Mg PO BID #60 TAB Ref 0 11/08/16 Metoprolol Tartrate 25 Mg Tab25 Mg PO BID #60 TAB Ref 0 10/24/16 Atorvastatin 80 Mg Tab80 Mg PO DAILY #30 TAB Ref 0 05/24/16 Current Medications Medications (Trade) Dose Ordered Sig/Marin Route Start Time Stop Time Status Last Admin (NS Flush) 2 ml UNSCH PRN IVF 11/22/16 02:45 11/24/16 07:47 (NS Flush) 2 ml UNSCH PRN IV FLUSH 11/22/16 06:30 11/24/16 07:47 (NS Flush) 2 ml BID IV FLUSH 11/22/16 09:00 11/24/16 07:47 (Tylenol) 650 mg Q6H PRN PO 11/22/16 06:30 (Morphine Inj) 2 mg Q2H PRN IV 11/22/16 06:30 (Protonix Inj) 40 mg DAILY IV 11/22/16 09:00 11/24/16 07:46 (Zofran Inj) 4 mg Q6H PRN IV 11/22/16 06:30 Miscellaneous Information 1 Q361D XX 11/22/16 06:30 11/24/16 07:12 (Chlorhexidine 2% Cloth) 3 pack Taper DAILY@04 TOP 11/23/16 04:00 11/19/17 03:59 11/23/16 23:59 (Chlorhexidine 2% Cloth) 3 pack UNSCH PRN TOP 11/22/16 06:30 (Rivka-Colace) 1 tab BID PO 11/22/16 09:00 11/22/16 10:08 (Milk Of Magnesia Liq) 30 ml Q12H PRN PO 11/22/16 06:30 (Senokot) 17.2 mg Q12H PRN PO 11/22/16 06:30 (Dulcolax Supp) 10 mg DAILY PRN RECTAL 11/22/16 06:30 Lactulose 30 ml 30 ml DAILY PRN PO 11/22/16 06:30 (Azactam Inj/NS Inj) 100 ml @ 200 mls/hr Q8H IV 11/22/16 12:00 11/24/16 10:49 (Lipitor) 80 mg DAILY PO 11/22/16 09:00 11/24/16 07:47 (Keppra) 500 mg BID PO 11/22/16 09:00 11/24/16 07:47 (Dilantin) 100 mg TID PO 11/22/16 09:00 11/24/16 07:46 (D50w (Vial) Inj) 50 ml UNSCH PRN IV 11/22/16 20:30 (Glucagon Inj) 1 mg UNSCH PRN OTHER 11/22/16 20:30 (Lantus Inj) 10 units HS SQ 11/22/16 22:00 11/23/16 21:25 Insulin Aspart 1 1 Q4HR SQ 11/23/16 12:00 11/24/16 11:18 Dextrose 1,000 ml @ 75 mls/hr [id number] IV 11/24/16 10:00 11/24/16 10:49 Potassium Chloride 100 ml @ 50 mls/hr Q2H PRN IV 11/24/16 10:00 (KCl 20 Meq Premix Inj) 100 ml @ 50 mls/hr Q2H PRN IV 11/24/16 10:00 Potassium Bicarb/ Potassium Chloride 50 meq 50 meq UNSCH PRN PO 11/24/16 10:00 Potassium Chloride 100 ml @ 25 mls/hr UNSCH PRN IV 11/24/16 10:00 Potassium Chloride 100 ml @ 50 mls/hr Q2H PRN IV 11/24/16 10:00 (Magnesium Sulfate Inj/NS Inj) 100 ml @ 50 mls/hr UNSCH PRN IV 11/24/16 10:00 Magnesium Oxide 800 mg 800 mg UNSCH PRN PO 11/24/16 10:00 (Magnesium Sulfate Inj/NS Inj) 100 ml @ 50 mls/hr UNSCH PRN IV 11/24/16 10:00 Potassium Phosphate 2000 mg 2,000 mg Q4H PRN PO 11/24/16 10:00 (Sodium Phosphate Inj/NS 250 ml Inj) 250 ml @ 42 mls/hr UNSCH PRN IV 11/24/16 10:00 Potassium Phosphate 2000 mg 2,000 mg UNSCH PRN PO/TUBE 11/24/16 10:00 (Potassium Phosphate Inj/NS 250 ml Inj) 260 ml @ 42 mls/hr UNSCH PRN IV 11/24/16 10:00 11/24/16 10:48 Family History Denied for mental illness or substance abuse. Social History Unemployed at the present time. Living with her mother. Denies alcohol or substance abuse. Patient's Strengths (min. 2) Verbal and resilient. Physical Exam Vital Signs Vital Signs Date Time Temp Pulse Resp B/P Pulse Ox O2 Delivery O2 Flow Rate FiO2 11/24/16 10:00 96 11/24/16 09:00 9 154/84 11/24/16 08:00 98.5 98 11/22/16 07:52 Room Air I/O 11/23/16 11/23/16 11/24/16 08:00 16:00 00:00 Intake Total 152 ml 1122 ml 894 ml Output Total 650 ml 975 ml 250 ml Balance -498 ml 147 ml 644 ml Mental Status Examination Speech: Unremarkable Orientation: x3 Memory: Unremarkable Thought Process: Organized, Goal Directed Thought Content: Unremarkable Hallucination Type: None Attention and Concentration: Good Suicidal Ideation: No Previous Suicide Attempts: No Homicidal Ideation: No Previous Homicide Attempts: No Insight: Fair Judgment: WNL Affect: Good Mood: Appropriate Motor Activity: Normal gait Assessment & Plan Problem List: (1) Adjustment disorder with anxiety ICD Code: F43.22 Assessment & Plan Estimated LOS: days the patient apparently does not have slow mentation despite her multiple medical issues and previous CVAs. According to both the patient and her mother, she is at baseline with regard to her mentation. She is denying symptoms of depression or anxiety. Therefore both the patient and her mother do not feel she needs psychotropic medications. Certainly she does not meet criteria for Le[place] act or inpatient psychiatric hospitalization. Rancho Newby MD Nov 24, 2016 12:55
[2016-11-24] MEDS: INSULIN GLARGINE 1,000 UNITS/10 ML VIAL SQ SCH (19:53)
[2016-11-24] MEDS: CHLORHEXIDINE GLUCONATE 2 % 1 PACK (2 CLOTHS) TOP SCH (19:55)
[2016-11-24 23:58] LABS: POTASSIUM 3.6 MEQ/L (3.5-5.1)
[2016-11-25] VITALS (20 sets, daily range): BP systolic 106–185; BP diastolic 69–93; PULSE 79–103; RESP 7–24; TEMP 97.5–98.5; O2SAT 96–100
[2016-11-25] MEDS: DEXTROSE 5% IN WATE 1000ML INJ 1,000 ML IV SCH (00:05)
[2016-11-25] MEDS: INSULIN ASPART SUPPLEMENTAL SCALE SQ SCH ×5 (00:08→21:09)
[2016-11-25] MEDS: AZTREONAM INJ 1,000 MG in SODIUM CHLORIDE 0.9% INJ 100 ML IV SCH ×3 (03:41→21:09)
[2016-11-25 06:25] LABS: AUTOMATED NEUTROPHIL # 5.4 TH/MM3 (1.8-7.7); BASOPHIL # 0.1 TH/MM3 (0-0.2); BASOPHIL % 0.7 % (0.0-2.0); EOSINOPHIL # 0.1 TH/MM3 (0-0.4); EOSINOPHIL % 1.3 % (0.0-4.0); LYMPH % 28.4 % (9.0-44.0); LYMPHOCYTE # 2.4 TH/MM3 (1.0-4.8); MEAN CELL VOLUME 87.3 FL (80.0-100.0); MEAN CORPUSCULAR HEMOGLOBIN 28.5 PG (27.0-34.0); MEAN CORPUSCULAR HGB CONC 32.6 % (32.0-36.0); MONO % 6.8 % (0.0-8.0); NEUT % 62.8 % (16.0-70.0); PLATELET COUNT 129 TH/MM3 (150-450); RED BLOOD COUNT 2.28 MIL/MM3 (4.00-5.30); RED CELL DISTRIBUTION WIDTH 14.5 % (11.6-17.2); WHITE BLOOD COUNT 8.6 TH/MM3 (4.0-11.0)
[2016-11-25 06:35] LABS: ANION GAP 8 MEQ/L (5-15); BLOOD UREA NITROGEN 22 MG/DL (7-18); CHLORIDE 116 MEQ/L (98-107); HEMO FLAGS AUTO DIFF; POTASSIUM 3.4 MEQ/L (3.5-5.1); SODIUM (NA) 148 MEQ/L (136-145)
[2016-11-25 06:37] LABS: HEMATOCRIT 19.9 % (35.0-46.0)
[2016-11-25] MEDS ORDERED: POTASSIUM CHLORIDE 10 MEQ CONTROLLED RELEASE TAB PO ONE (07:00)
[2016-11-25] MEDS ORDERED: FUROSEMIDE 20 MG/2 ML VIAL IV PUSH SCH (07:00)
--- NOTE | 2016-11-25 07:01 | HHI.CCPN ---
Subjective Remarks/Hospital Course The patient is a 46-year-old female with a past medical history of hypertension , anemia, diabetes mellitus, lupus and seizure disorder, who presented to [facility] ED with a critically high blood sugar noted at home. The patient was also confused. The patient's family called the ambulance service and she was noted prior to arrival to be sleepy and slowly answering questions. The patient was found in DKA and she had a blood sugar of 1016 on a BMP withmetabolic acidosis and anion gap of 27. ABG was performed on room air oxygen which showed severe metabolic acidosis with a pH of 7.2, CO2 24, PAO2 113 , bicarb 9, saturation 94%. In the ER she was given regular insulin 5 units IV push along with 2 liters of normal saline boluses and subsequently placed on insulin drip per DKA protocol. She is currently on 7.5 units per hour. Other significant laboratory data showed acute renal failure with a BUN of 69, creatinine 3.88 and leukocytosis with WBC of 18.1 and hemoglobin 7.8. The patient also was found to have acute pancreatitis with a lipase level of 10, 739. A CT of the abdomen and pelvis showed findings likely representing acute pancreatitis or duodenitis. She was given aztreonam, Flagyl and vancomycin in the ER. Chest x-ray on arrival showed no acute cardiopulmonary disease and CT scan of the brain was obtained as well which was unremarkable. The patient is afebrile and when seen she is on room air oxygen with a saturation of 99% and blood pressure 109/61 with a pulse of 90. She denies any chest pain, shortness of breath, nausea, vomiting, abdominal pain or any constitutional symptoms. She was recently admitted on November 08 for DKA as well. The patient overall is a poor historian. 11/23 No acute events overnight. Off Insulin drip renal function is improving with Cr: 2.40 from 2.69 last night. Afebrile. 11/24 Patient is more awake and alert today. Afebrile. Subjective 11/25: Afebrile. Tolerating clear liquid diet. Bowel movement documented. Objective Vital Signs Date Time Temp Pulse Resp B/P Pulse Ox O2 Delivery O2 Flow Rate FiO2 11/25/16 06:00 93 11/25/16 04:00 98.4 14 180/86 96 11/22/16 07:52 Room Air Intake and Output 11/24/16 11/24/16 11/25/16 08:00 16:00 00:00 Intake Total 944 ml 1458 ml 905 ml Output Total 350 ml 525 ml 600 ml Balance 594 ml 933 ml 305 ml Result Diagram: 11/25/16 0449 11/25/16 0449 Other Results Microbiology Date/Time Procedure Status Source Growth 11/22/16 02:30 Aerobic Blood Culture - Preliminary Resulted Blood Peripheral NO GROWTH IN 2 DAYS 11/22/16 02:30 Anaerobic Blood Culture - Preliminary Resulted Blood Peripheral NO GROWTH IN 2 DAYS Imaging Last Impressions Chest X-Ray 11/23/16 0000 Signed Impressions: Service Date/Time: Wednesday, November 23, 2016 03:41 - CONCLUSION: No acute cardiopulmonary disease. Tr Luna MD Abdomen/Pelvis CT 11/22/16 0605 Signed Impressions: Service Date/Time: Tuesday, November 22, 2016 06:44 - CONCLUSION: 1. Nonspecific induration of the fat surrounding the pancreas and descending duodenum. This could represent acute pancreatitis or a duodenitis. Suggest correlation with clinical history and laboratory values. 2. Small volume of free fluid is present within the pelvis. 3. Low density of the cardiac blood pole is suggestive of anemia. Jim Michaels MD Head CT 11/22/16 0234 Signed Impressions: Service Date/Time: Tuesday, November 22, 2016 03:32 - CONCLUSION: Unremarkable study. Tr Luna MD Objective Remarks GENERAL 38-year-old female, resting in bed in no acute distress SKIN: Warm and dry. No rash HEAD: Normocephalic. EYES: Pupils Around 2-3 mm bilaterally and reactive. No scleral icterus. No injection or drainage. NECK: Supple, trachea midline. No JVD or lymphadenopathy. CARDIOVASCULAR: RRR. S1, S2. No S4. No murmur RESPIRATORY: Breath sounds essentially clear and equal bilaterally without wheezes rales or rhonchi. No accessory muscle use. GASTROINTESTINAL: Abdomen bilateral tenderness to palpation epigastric region. Positive bowel movement MUSCULOSKELETAL: Trace lower extremity edema BACK: Nontender without obvious deformity. No CVA tenderness. A/P Assessment and Plan Neuro/Psych: Acute toxic metabolic encephalopathy secondary to diabetic ketoacidosis History of left centrum ovale CVA/lacunar Seizure disorder NOS Depression Monitor neuro status closely and avoid sedatives. on Keppra 500 mg p.o. b.i.d., Dilantin 100 mg p.o. t.i.d. UDS is negative. Seizure precautions Recheck Dilantin level in AM. 1.0 on admission Continue fluoxetine 10 mg by mouth daily Pulm: History of bronchial asthma Bilateral dependent lower lobe atelectasis on CT abdomen/pelvis As needed bronchodilator therapy with albuterol every 2 hours when necessary Nasal cannula if necessary to maintain saturations greater than equal to 92% CV: Hypertension Dyslipidemia Resume atorvastatin 80 mg by mouth daily. Triglycerides 217 Resume anti-hypertensives metoprolol decreased to 12.5 mg by mouth twice a day and clonidine 0.1 mg by mouth twice a day Home medications are metoprolol 25 mg twice a day, clonidine 0.1 mg daily and nifedipine 60 mill grams by mouth daily Monitor HR and BP and maintain MAP>65 mmHg. Lactic acid level measured at 1.7. /FEN: Hypernatremia Hypopotassemia 40 mEq potassium chloride by mouth 1. Recheck this afternoon 1800 Switch IV fluids to half-normal saline at 84 cc an hour GI: Acute pancreatitis CT abdomen/post revealed dependent atelectasis, low-density cardiac pole indicative anemia, induration that around pancreas and descending duodenal slight edema with induration the perienteric fat in the retroperitoneum. GI seen and signed off. On Protonix 40 mg IV daily. On PO diabetic diet. Monitor lipase level ( trending down) GI service was consulted RENAL: Acute kidney injury and severe chronic kidney disease Creatinine currently down to 1.3. Recheck in AM. Continue with gentle hydration ID: Continue with abx(Aztreonam) and monitor for signs of infections(fever and WBC) . Follow-up on blood cultures from 11/22: NGTD She was given vancomycin, Flagyl and aztreonam in the ED. Endo: DM with neuropathy Admission with DKA - resolved Continue with SSI before meals/at bedtime and at 0300 and Lantus 10units qhs. Of note patient is allergic to Levemir. 17 insulin scale insulin past 24 hours Heme: Normocytic Anemia Thrombocytopenia Transfuse 2 units PRBCs today. Recheck at 1800 today. Monitor CBC and coags. Guaiac stool for Heme. GI prophylaxis with Protonix 40 mg daily and DVT prophylaxis with SCDs. Not on chemical anticoagulation prophylaxis given underlying anemia. Follow up on labs today Level 2 Patient is stable from a critical care medicine standpoint. We will assign care to hospitalist in a.m. and transfer to floor José Miguel Ndiaye MD Nov 25, 2016 07:01
--- NOTE | 2016-11-25 07:07 | PD.TRANSFR ---
Transfer Summary Admission Date Nov 22, 2016 at 06:10 Transfer Date: Nov 25, 2016 Admitting Diagnosis DKA, Acute pancreatitis Diagnoses: (1) CKD (chronic kidney disease), stage III Diagnosis: Principal (2) Insulin dependent diabetes mellitus Diagnosis: Principal (3) GERD (gastroesophageal reflux disease) Diagnosis: Principal (4) Acute renal failure Diagnosis: Principal (5) Anemia Diagnosis: Principal (6) Diabetic neuropathy Diagnosis: Principal (7) Pancreatitis Diagnosis: Principal Significant Findings CT abdomen/pelvis revealed induration without surrounding pancreas. Transfer Summary/Subjective Please see note. Objective Vital Signs Date Time Temp Pulse Resp B/P Pulse Ox O2 Delivery O2 Flow Rate FiO2 11/25/16 06:00 93 11/25/16 04:00 98.4 14 180/86 96 11/22/16 07:52 Room Air Intake and Output 11/24/16 11/24/16 11/25/16 08:00 16:00 00:00 Intake Total 944 ml 1458 ml 905 ml Output Total 350 ml 525 ml 600 ml Balance 594 ml 933 ml 305 ml Result Diagram: 11/25/16 0449 11/25/16 0449 Imaging Last Impressions Chest X-Ray 11/23/16 0000 Signed Impressions: Service Date/Time: Wednesday, November 23, 2016 03:41 - CONCLUSION: No acute cardiopulmonary disease. Tr Luna MD Abdomen/Pelvis CT 11/22/16 0605 Signed Impressions: Service Date/Time: Tuesday, November 22, 2016 06:44 - CONCLUSION: 1. Nonspecific induration of the fat surrounding the pancreas and descending duodenum. This could represent acute pancreatitis or a duodenitis. Suggest correlation with clinical history and laboratory values. 2. Small volume of free fluid is present within the pelvis. 3. Low density of the cardiac blood pole is suggestive of anemia. Jim Michaels MD Head CT 11/22/16 0234 Signed Impressions: Service Date/Time: Tuesday, November 22, 2016 03:32 - CONCLUSION: Unremarkable study. Tr Luna MD Objective Remarks GENERAL 38-year-old female, resting in bed in no acute distress SKIN: Warm and dry. No rash HEAD: Normocephalic. EYES: Pupils Around 2-3 mm bilaterally and reactive. No scleral icterus. No injection or drainage. NECK: Supple, trachea midline. No JVD or lymphadenopathy. CARDIOVASCULAR: RRR. S1, S2. No S4. No murmur RESPIRATORY: Breath sounds essentially clear and equal bilaterally without wheezes rales or rhonchi. No accessory muscle use. GASTROINTESTINAL: Abdomen bilateral tenderness to palpation epigastric region. Positive bowel movement MUSCULOSKELETAL: Trace lower extremity edema BACK: Nontender without obvious deformity. No CVA tenderness. A/P Assessment and Plan Neuro/Psych: Acute toxic metabolic encephalopathy secondary to diabetic ketoacidosis History of left centrum ovale CVA/lacunar Seizure disorder NOS Depression Monitor neuro status closely and avoid sedatives. on Keppra 500 mg p.o. b.i.d., Dilantin 100 mg p.o. t.i.d. UDS is negative. Seizure precautions Recheck Dilantin level in AM. 1.0 on admission Continue fluoxetine 10 mg by mouth daily Pulm: History of bronchial asthma Bilateral dependent lower lobe atelectasis on CT abdomen/pelvis As needed bronchodilator therapy with albuterol every 2 hours when necessary Nasal cannula if necessary to maintain saturations greater than equal to 92% CV: Hypertension Dyslipidemia Resume atorvastatin 80 mg by mouth daily. Triglycerides 217 Resume anti-hypertensives metoprolol decreased to 12.5 mg by mouth twice a day and clonidine 0.1 mg by mouth twice a day Home medications are metoprolol 25 mg twice a day, clonidine 0.1 mg daily and nifedipine 60 mill grams by mouth daily Monitor HR and BP and maintain MAP>65 mmHg. Lactic acid level measured at 1.7. /FEN: Hypernatremia Hypopotassemia 40 mEq potassium chloride by mouth 1. Recheck this afternoon 1800 Switch IV fluids to half-normal saline at 84 cc an hour GI: Acute pancreatitis CT abdomen/post revealed dependent atelectasis, low-density cardiac pole indicative anemia, induration that around pancreas and descending duodenal slight edema with induration the perienteric fat in the retroperitoneum. GI seen and signed off. On Protonix 40 mg IV daily. On PO diabetic diet. Monitor lipase level ( trending down) GI service is consulted. ID: Continue with abx(Aztreonam) and monitor for signs of infections(fever and WBC) . Follow-up on blood cultures from 11/22: NGTD She was given vancomycin, Flagyl and aztreonam in the ED. Endo: DM Admission with DKA - resolved Continue with SSI and Lantus 10units qhs. Of note patient is allergic to Levemir. Heme: Normocytic Anemia Transfuse 2 units PRBCs today. Recheck at 1800 today. Monitor CBC and coags. Guaiac stool for Heme. GI prophylaxis with Protonix 40 mg daily and DVT prophylaxis with SCDs. Not on chemical anticoagulation prophylaxis given underlying anemia. Follow up on labs today Level 2 Patient is stable from a critical care medicine standpoint. We will assign care to hospitalist in a.m. and transfer to floor José Miguel Ndiaye MD Nov 25, 2016 07:07
[2016-11-25 07:57] LABS: BANDS 9 % (0-6); EOSINOPHILS 1 % (0-4); MYELOCYTES 1 % (0-0); POLYS (SEG NEUTROPHILS) 48 % (16-70); WBC DIFF SAMPLE 100
[2016-11-25 07:58] LABS: PLATELET ESTIMATE SMEAR LOW (NORMAL); PLATELET MORPHOLOGY NORMAL (NORMAL); SCAN/DIFF FINAL DIFF MANUAL
[2016-11-25] MEDS: DOCUSATE SODIUM 50 MG/SENNA 8.6 MG TAB PO SCH ×2 (08:18→21:10)
[2016-11-25] MEDS: METOPROLOL TARTRATE 25 MG TAB PO SCH ×2 (08:18→21:09)
[2016-11-25] MEDS: ATORVASTATIN 80 MG TAB PO SCH (08:18)
[2016-11-25] MEDS: levETIRAcetam 500 MG TAB PO SCH ×2 (08:18→21:09)
[2016-11-25] MEDS: cloNIDine HCL 0.1 MG TAB PO SCH ×2 (08:18→21:09)
[2016-11-25] MEDS: PHENYTOIN SODIUM 100 MG CAP PO SCH ×3 (08:18→16:57)
[2016-11-25] MEDS: PANTOPRAZOLE SODIUM 40 MG VIAL IV SCH (08:18)
[2016-11-25] MEDS: SODIUM CHLORIDE 0.9% FLUSH 10 ML FLUSH IV FLUSH SCH ×2 (08:19→21:00)
[2016-11-25] MEDS: MUPIROCIN 2% OINT 1 APPLIC/GM SYR EACH NARE SCH ×2 (08:19→08:25)
[2016-11-25] MEDS: SODIUM CHLORIDE 0.9% FLUSH 10 ML FLUSH IV FLUSH PRN (08:19)
[2016-11-25] MEDS: FLUoxetine HCL 10 MG CAP PO SCH (09:55)
[2016-11-25] MEDS: SODIUM CHLOR 0.45% 1000 ML INJ 1,000 ML IV SCH ×2 (09:55→17:00)
--- NOTE | 2016-11-25 10:29 | HHI.GIFU ---
Subjective Remarks Resting in bed. No n/v or abdominal pain. No obvious active bleeding. Denies any prior episodes of pancreatitis. Denies any new medications. Denies any ETOH use. Had her GB removed in the past for cholelithiasis. (Doris Osman) Objective Vitals I&O Vital Signs Date Time Temp Pulse Resp B/P Pulse Ox O2 Delivery O2 Flow Rate FiO2 11/25/16 06:00 93 11/25/16 04:00 87 11/25/16 04:00 98.4 97 14 180/86 96 11/25/16 04:00 98.4 87 24 132/69 97 11/25/16 03:00 91 7 152/82 11/25/16 02:00 90 15 128/75 11/25/16 02:00 90 11/25/16 01:00 93 9 148/81 11/25/16 00:00 98.4 97 14 180/86 96 11/25/16 00:00 97 14 180/86 11/25/16 00:00 97 11/24/16 23:00 93 7 132/77 11/24/16 22:00 93 18 165/104 11/24/16 22:00 93 11/24/16 21:00 92 17 114/68 11/24/16 20:00 97 11/24/16 20:00 98.4 97 11 143/80 97 11/24/16 19:01 100 10 145/69 11/24/16 19:00 99 9 11/24/16 18:00 99 11 151/87 11/24/16 18:00 99 11/24/16 17:00 93 8 160/84 11/24/16 16:00 98.1 93 15 11/24/16 16:00 93 11/24/16 15:00 93 8 11/24/16 14:00 93 12 166/92 11/24/16 14:00 93 11/24/16 13:00 100 12 134/61 11/24/16 12:00 96 11/24/16 12:00 98.4 96 10 149/100 11/24/16 11:00 96 13 163/74 I/O 11/24/16 11/24/16 11/24/16 11/25/16 11/25/16 11/25/16 07:00 15:00 23:00 07:00 15:00 23:00 Intake Total 944 ml 1458 ml 905 ml 465 ml Output Total 350 ml 525 ml 600 ml 800 ml Balance 594 ml 933 ml 305 ml -335 ml Intake Oral 150 ml 300 ml IV Total 794 ml 1158 ml 905 ml 465 ml Output Urine Total 350 ml 525 ml 600 ml 800 ml # Bowel Movements 0 1 Laboratory Laboratory Tests Test 11/24/16 11/25/16 22:48 04:49 Potassium Level 3.6 3.4 Phosphorus Level 2.6 2.7 White Blood Count 8.6 Red Blood Count 2.28 Hemoglobin 6.5 Hematocrit 19.9 Mean Corpuscular Volume 87.3 Mean Corpuscular Hemoglobin 28.5 Mean Corpuscular Hemoglobin 32.6 Concent Red Cell Distribution Width 14.5 Platelet Count 129 Mean Platelet Volume 10.4 Neutrophils (%) (Auto) 62.8 Lymphocytes (%) (Auto) 28.4 Monocytes (%) (Auto) 6.8 Eosinophils (%) (Auto) 1.3 Basophils (%) (Auto) 0.7 Neutrophils # (Auto) 5.4 Lymphocytes # (Auto) 2.4 Monocytes # (Auto) 0.6 Eosinophils # (Auto) 0.1 Basophils # (Auto) 0.1 CBC Comment AUTO DIFF Differential Total Cells 100 Counted Neutrophils % (Manual) 48 Band Neutrophils % 9 Lymphocytes % 39 Monocytes % 2 Eosinophils % 1 Neutrophils # (Manual) 5.0 Myelocytes 1 Differential Comment FINAL DIFF MANUAL Platelet Estimate LOW Platelet Morphology Comment NORMAL Sodium Level 148 Chloride Level 116 Carbon Dioxide Level 24.0 Anion Gap 8 Blood Urea Nitrogen 22 Creatinine 1.31 Random Glucose 88 Calcium Level 7.9 Lipase 2181 Date/Time Procedure Status Source Growth 11/22/16 02:30 Aerobic Blood Culture - Preliminary Resulted Blood Peripheral NO GROWTH IN 2 DAYS 11/22/16 02:30 Anaerobic Blood Culture - Preliminary Resulted Blood Peripheral NO GROWTH IN 2 DAYS Imaging Last Impressions Chest X-Ray 11/23/16 0000 Signed Impressions: Service Date/Time: Wednesday, November 23, 2016 03:41 - CONCLUSION: No acute cardiopulmonary disease. Tr Luna MD Abdomen/Pelvis CT 11/22/16 0605 Signed Impressions: Service Date/Time: Tuesday, November 22, 2016 06:44 - CONCLUSION: 1. Nonspecific induration of the fat surrounding the pancreas and descending duodenum. This could represent acute pancreatitis or a duodenitis. Suggest correlation with clinical history and laboratory values. 2. Small volume of free fluid is present within the pelvis. 3. Low density of the cardiac blood pole is suggestive of anemia. Jim Michaels MD Head CT 11/22/16 0234 Signed Impressions: Service Date/Time: Tuesday, November 22, 2016 03:32 - CONCLUSION: Unremarkable study. Tr Luna MD Physical Exam HEENT: Normocephalic; atraumatic; no jaundice. CHEST: CTA CARDIAC: RRR. ABDOMEN: Soft, nondistended, nontender; no hepatosplenomegaly; bowel sounds are present in all four quadrants. EXTREMITIES: No clubbing, cyanosis, or edema. SKIN: Normal; no rash; no jaundice. CAVALRY OFFICER: No focal deficits; lethargic and oriented times three. (Doris Osman) Assessment and Plan Plan ASSESSMENT: - Acute pancreatitis, unclear etiology. Abdomen/Pelvis CT (11/22/16)----> 1. Nonspecific induration of the fat surrounding the pancreas and descending duodenum. This could represent acute pancreatitis or a duodenitis. Suggest correlation with clinical history and laboratory values. 2. Small volume of free fluid is present within the pelvis. 3. Low density of the cardiac blood pole is suggestive of anemia. Pt denies any prior history of pancreatitis. Denies ETOH use. Denies any new medications. Does have Lupus and therefore will check IgG 4 level. S/P Cholecystectomy in the past for cholelithiasis. LFTs unremarkable other than elevation of alk phosph. She does have anemia, but this appears to be chronic. No signs of PUD at this time. Had EGD on September 08, 2016 with no evidence of PUD. Meds reviewed. Only atorvastatin Class 3 and this is not a new med. Clinically doing well, no nausea, vomiting. Tolerating diet, but downgraded to full liquids per patient request, because these foods are easier for her to eat. Would like to try a soft diet today. Lipase 2181. Get IgG 4 level - Anemia, chronic. Likely r/t chronic disease. EGD/Colonoscopy (09/08/16)----> Normal EGD, Diverticulosis. Will get SBFT and plan for capsule endoscopy as outpatient to complete GI workup. Getting 2 units of prbc today for HH of 6.5/19.9. Get hemoccult. - Diarrhea. IMPROVED. - DKA, DM. Improved. Being transferred to floor - Lupus with acute on chronic CKD. Creat improving, 1.31. - Thrombocytopenia, Plt 129,000. - Depression, Sz D/O, Asthma, Hyperlipidemia, Electrolyte abnormalities per primary. PLAN - Soft low fat diet - IgG 4 level - SBFT - Monitor HH - Transfuse if needed - CBC, CMP in am - Hemoccult stool - Capsule endoscopy as outpatient - Supportive care - Further recommendations to follow based on results of above - Pt seen and examined by Dr. Loza and myself and this note is written on his behalf (Doris Osman) Physician Comments Seen and examined with LUKASZ, No bleeding but drop in H/H. Previous extensive mota for anemia normal. Sbft ordered. Outpt pill cam. Still not clear on etiology of pancreatitis. (Rony Loza MD) Doris Osman Nov 25, 2016 10:29 Rony Loza MD Nov 25, 2016 14:28
--- NOTE | 2016-11-25 14:23 | RADRPT ---
EXAM DATE/TIME: 11/25/2016 12:23 [facility] COMPARISON: No previous studies available for comparison. INDICATIONS : Anemia. FLUORO TIME: .7 minutes IMAGE COUNT: 7 CONTRAST: Gastrorl IMAGING TIME(S): 15 min MEDICAL HISTORY : Hypertension. Renal failure, chronic. Lupus. SURGICAL HISTORY : Cholecystectomy. Hysterectomy. section. ENCOUNTER: Initial ACUITY: 2 days PAIN SCORE: 7/10 LOCATION: Abdomen FINDINGS: No bowel obstruction or ileus is noted on the garde manger film. Mild scoliosis of the lumbar spine is noted . The stomach is grossly unremarkable. Examination of the small bowel demonstrates normal mucosal pattern involving the jejunum and ileum. There is no evidence of mass or obstruction. No intraluminal filling defects are identified. Small bowel transit time is normal at 45 minutes. Fluoroscopy of the abdomen and terminal ileum demonstrat es no abnormality. CONCLUSION: 1. Unremarkable small bowel examination. 2. Mild scoliosis of the lumbar spine. Villa Calderon MD on November 25, 2016 at 14:19 Board Certified Radiologist. This report was verified electronically.
[2016-11-25] MEDS ORDERED: DIATRIZOATE MEGLUM/DIATRIZOATE SOD 120 ML BTL (for RAD DIAG) PO ONE (16:34)
[2016-11-25] MEDS: INSULIN GLARGINE 1,000 UNITS/10 ML VIAL SQ SCH (21:00)
[2016-11-26] VITALS (7 sets, daily range): BP systolic 117–145; BP diastolic 66–83; PULSE 75–92; RESP 18–20; TEMP 97.9–98.9; O2SAT 96–100
[2016-11-26] MEDS: INSULIN ASPART SUPPLEMENTAL SCALE SQ SCH ×5 (03:00→21:00)
[2016-11-26] MEDS: AZTREONAM INJ 1,000 MG in SODIUM CHLORIDE 0.9% INJ 100 ML IV SCH ×3 (03:11→21:05)
[2016-11-26] MEDS: CHLORHEXIDINE GLUCONATE 2 % 1 PACK (2 CLOTHS) TOP SCH (03:11)
[2016-11-26] MEDS: SODIUM CHLOR 0.45% 1000 ML INJ 1,000 ML IV SCH (05:21)
[2016-11-26 07:26] LABS: AUTOMATED NEUTROPHIL # 3.5 TH/MM3 (1.8-7.7); BASOPHIL % 0.6 % (0.0-2.0); EOSINOPHIL # 0.1 TH/MM3 (0-0.4); HEMATOCRIT 28.2 % (35.0-46.0); HEMO FLAGS DIFF FINAL; LYMPHOCYTE # 1.1 TH/MM3 (1.0-4.8); MEAN CELL VOLUME 85.7 FL (80.0-100.0); MEAN CORPUSCULAR HEMOGLOBIN 28.4 PG (27.0-34.0); MEAN CORPUSCULAR HGB CONC 33.2 % (32.0-36.0); MONO % 8.5 % (0.0-8.0); NEUT % 67.9 % (16.0-70.0); PLATELET COUNT 100 TH/MM3 (150-450); RED BLOOD COUNT 3.29 MIL/MM3 (4.00-5.30); RED CELL DISTRIBUTION WIDTH 15.2 % (11.6-17.2); WHITE BLOOD COUNT 5.2 TH/MM3 (4.0-11.0)
[2016-11-26 07:59] LABS: BICARBONATE 23.2 MEQ/L (21.0-32.0); CALCIUM-PROTEIN CORRECTED 8.6 MG/DL (8.5-10.1); MAGNESIUM 2.1 MG/DL (1.5-2.5); TOTAL BILIRUBIN ADULT 0.2 MG/DL (0.2-1.0)
[2016-11-26] MEDS: DOCUSATE SODIUM 50 MG/SENNA 8.6 MG TAB PO SCH ×2 (09:00→21:00)
[2016-11-26] MEDS: FLUoxetine HCL 10 MG CAP PO SCH (09:12)
[2016-11-26] MEDS: levETIRAcetam 500 MG TAB PO SCH ×2 (09:12→21:03)
[2016-11-26] MEDS: cloNIDine HCL 0.1 MG TAB PO SCH ×2 (09:12→21:03)
[2016-11-26] MEDS: METOPROLOL TARTRATE 25 MG TAB PO SCH ×2 (09:12→21:03)
[2016-11-26] MEDS: PHENYTOIN SODIUM 100 MG CAP PO SCH ×3 (09:12→17:03)
[2016-11-26] MEDS: ATORVASTATIN 80 MG TAB PO SCH (09:12)
[2016-11-26] MEDS: PANTOPRAZOLE SODIUM 40 MG VIAL IV SCH (09:12)
[2016-11-26] MEDS: SODIUM CHLORIDE 0.9% FLUSH 10 ML FLUSH IV FLUSH SCH ×2 (09:13→21:05)
--- NOTE | 2016-11-26 10:35 | HHI.PR ---
Objective Vitals Result Diagram: 11/26/1613 11/26/16 0631 Eliana Clay MD Nov 26, 2016 10:35 (1) CKD (chronic kidney disease), stage III ICD Code: N18.3 Status: Acute (2) Insulin dependent diabetes mellitus ICD Code: E11.9 Status: Acute (3) GERD (gastroesophageal reflux disease) ICD Code: K21.9 Status: Chronic (4) Acute renal failure ICD Code: N17.9 Status: Acute (5) Anemia ICD Code: D64.9 Status: Acute (6) Diabetic neuropathy ICD Code: E11.40 Status: Acute (7) Pancreatitis ICD Code: K85.9 Status: Acute Problem Qualifiers (1) Acute renal failure: Qualified Code: N17.9 - Acute renal failure, unspecified acute renal failure type (2) Pancreatitis: Qualified Code: K85.90 - Acute pancreatitis without infection or necrosis, unspecified pancreatitis type Eliana Clay MD Nov 26, 2016 10:35 I/O 11/25/16 11/25/16 11/25/16 11/26/16 11/26/16 11/26/16 07:00 15:00 23:00 07:00 15:00 23:00 Intake Total 465 ml 620 ml 1200 ml 240 ml Output Total 800 ml 1175 ml 450 ml Balance -335 ml -555 ml 1200 ml -210 ml Intake Oral 400 ml 240 ml IV Total 465 ml 220 ml 1200 ml Output Urine Total 800 ml 1175 ml 450 ml # Bowel Movements 4 2 Result Diagram: 11/26/1661211/26/16 0631 A/P Problem List: (1) CKD (chronic kidney disease), stage III ICD Code: N18.3 Status: Acute (2) Insulin dependent diabetes mellitus ICD Code: E11.9 Status: Acute (3) GERD (gastroesophageal reflux disease) ICD Code: K21.9 Status: Chronic (4) Acute renal failure ICD Code: N17.9 Status: Acute (5) Anemia ICD Code: D64.9 Status: Acute (6) Diabetic neuropathy ICD Code: E11.40 Status: Acute (7) Pancreatitis ICD Code: K85.9 Status: Acute Assessment and Plan Acute toxic metabolic encephalopathy secondary to diabetic ketoacidosis History of left centrum ovale CVA/lacunar Seizure disorder NOS Depression Monitor neuro status closely and avoid sedatives. on Keppra 500 mg p.o. b.i.d., Dilantin 100 mg p.o. t.i.d. UDS is negative. Seizure precautions Recheck Dilantin level in AM. 1.0 on admission Continue fluoxetine 10 mg by mouth daily Pulm: History of bronchial asthma Bilateral dependent lower lobe atelectasis on CT abdomen/pelvis As needed bronchodilator therapy with albuterol every 2 hours when necessary Nasal cannula if necessary to maintain saturations greater than equal to 92% CV: Hypertension Dyslipidemia Resume atorvastatin 80 mg by mouth daily. Triglycerides 217 Resume anti-hypertensives metoprolol decreased to 12.5 mg by mouth twice a day and clonidine 0.1 mg by mouth twice a day Home medications are metoprolol 25 mg twice a day, clonidine 0.1 mg daily and nifedipine 60 mill grams by mouth daily Monitor HR and BP and maintain MAP>65 mmHg. Lactic acid level measured at 1.7. /FEN: Hypernatremia Hypopotassemia 40 mEq potassium chloride by mouth 1. Recheck this afternoon 1800 Switch IV fluids to half-normal saline at 84 cc an hour GI: Acute pancreatitis CT abdomen/post revealed dependent atelectasis, low-density cardiac pole indicative anemia, induration that around pancreas and descending duodenal slight edema with induration the perienteric fat in the retroperitoneum. GI seen and signed off. On Protonix 40 mg IV daily. On PO diabetic diet. Monitor lipase level ( trending down) GI service is consulted. ID: Continue with abx(Aztreonam) and monitor for signs of infections(fever and WBC) . Follow-up on blood cultures from 11/22: NGTD She was given vancomycin, Flagyl and aztreonam in the ED. Endo: DM Admission with DKA - resolved Continue with SSI and Lantus 10units qhs. Of note patient is allergic to Levemir. Heme: Normocytic Anemia Transfuse 2 units PRBCs today. Recheck at 1800 today. Monitor CBC and coags. Guaiac stool for Heme. GI prophylaxis with Protonix 40 mg daily and DVT prophylaxis with SCDs. Not on chemical anticoagulation prophylaxis given underlying anemia. Follow up on labs today Level 2 Problem Qualifiers (1) Acute renal failure: Qualified Code: N17.9 - Acute renal failure, unspecified acute renal failure type (2) Pancreatitis: Qualified Code: K85.90 - Acute pancreatitis without infection or necrosis, unspecified pancreatitis type Eliana Clay MD Nov 26, 2016 10:35
--- NOTE | 2016-11-26 15:51 | HHI.PR ---
Subjective Remarks patient awake and alert, drank the glucerna but did not want anything else childlike denies any pain Objective Vitals Vital Signs Date Time Temp Pulse Resp B/P Pulse Ox O2 Delivery O2 Flow Rate FiO2 11/26/16 12:00 97.9 75 20 121/74 97 11/26/16 08:20 83 11/26/16 08:00 98.1 89 20 131/73 96 11/26/16 04:00 98.9 92 18 130/67 100 11/26/16 00:00 98.1 79 18 145/83 99 11/25/16 23:45 98.1 79 18 145/83 99 11/25/16 21:19 97.6 88 18 125/72 100 11/25/16 20:56 98.0 98 20 151/69 100 11/25/16 20:00 98.0 98 20 151/69 100 11/25/16 20:00 92 11/25/16 18:10 97.5 90 18 126/80 100 11/25/16 16:00 98.5 92 12 106/70 11/25/16 16:00 92 I/O 11/25/16 11/25/16 11/25/16 11/26/16 11/26/16 11/26/16 07:00 15:00 23:00 07:00 15:00 23:00 Intake Total 465 ml 620 ml 1200 ml 240 ml Output Total 800 ml 1175 ml 450 ml Balance -335 ml -555 ml 1200 ml -210 ml Intake Oral 400 ml 240 ml IV Total 465 ml 220 ml 1200 ml Output Urine Total 800 ml 1175 ml 450 ml # Bowel Movements 4 2 Result Diagram: 11/26/16 0613 11/26/16 0631 Imaging Last Impressions Small Bowel X-Ray 11/25/16 0000 Signed Impressions: Service Date/Time: November 12:23 - CONCLUSION: 1. Unremarkable small bowel examination. 2. Mild scoliosis of the lumbar spine. Villa Calderon MD Chest X-Ray 11/23/16 0000 Signed Impressions: Service Date/Time: Wednesday, November 23, 2016 03:41 - CONCLUSION: No acute cardiopulmonary disease. Tr Luna MD Abdomen/Pelvis CT 11/22/16 0605 Signed Impressions: Service Date/Time: Tuesday, November 22, 2016 06:44 - CONCLUSION: 1. Nonspecific induration of the fat surrounding the pancreas and descending duodenum. This could represent acute pancreatitis or a duodenitis. Suggest correlation with clinical history and laboratory values. 2. Small volume of free fluid is present within the pelvis. 3. Low density of the cardiac blood pole is suggestive of anemia. Jim Michaels MD Head CT 11/22/16 0234 Signed Impressions: Service Date/Time: Tuesday, November 22, 2016 03:32 - CONCLUSION: Unremarkable study. Tr Luna MD Objective Remarks awake and alert oriented x 3, childlike in demeanor anicteric lungs no rales regular rhythm abdomen-soft, nontender, good bowels sounds extremiteis no edema neuro moves all extremtiies- generalized weakness A/P Problem List: (1) CKD (chronic kidney disease), stage III ICD Code: N18.3 Status: Acute (2) Insulin dependent diabetes mellitus ICD Code: E11.9 Status: Acute (3) GERD (gastroesophageal reflux disease) ICD Code: K21.9 Status: Chronic (4) Acute renal failure ICD Code: N17.9 Status: Acute (5) Anemia ICD Code: D64.9 Status: Acute (6) Diabetic neuropathy ICD Code: E11.40 Status: Acute (7) Pancreatitis ICD Code: K85.9 Status: Acute Assessment and Plan Acute toxic metabolic encephalopathy secondary to diabetic ketoacidosis History of left centrum ovale CVA/lacunar Seizure disorder NOS Depression mental status- improved on Keppra 500 mg p.o. b.i.d., Dilantin 100 mg p.o. t.i.d. UDS is negative. Seizure precautions Continue fluoxetine 10 mg by mouth daily History of bronchial asthma- HAD Bilateral dependent lower lobe atelectasis on CT abdomen/pelvis As needed bronchodilator therapy with albuterol every 2 hours when necessary Nasal cannula if necessary to maintain saturations greater than equal to 92% lungs clear. Encourage out of bed and incentive spirometry CV: Hypertension Dyslipidemia atorvastatin 80 mg by mouth daily. Triglycerides 217 metoprolol 12.5 mg by mouth twice a day and clonidine 0.1 mg by mouth twice a day Home medications are metoprolol 25 mg twice a day, clonidine 0.1 mg daily and nifedipine 60 mill grams by mouth daily Monitor HR and BP and maintain MAP>65 mmHg. Lactic acid level measured at 1.7. Hypernatremia Hypopotassemia corrected. replaced. FF Switch IV fluids to D5W + KCL Acute pancreatitis- tolerating po CT abdomen/post revealed dependent atelectasis, low-density cardiac pole indicative anemia, induration that around pancreas and descending duodenal slight edema with induration the perienteric fat in the retroperitoneum. GI seen and signed off. On Protonix 40 mg IV daily. On PO diabetic diet. Monitor lipase level ( trending down) GI service is consulted. ID: Continue with abx(Aztreonam) and monitor for signs of infections(fever and WBC) . Follow-up on blood cultures from 11/22: NGTD She was given vancomycin, Flagyl and aztreonam in the ED. Endo: DM Admission with DKA - resolved Continue with SSI and Lantus 10units qhs. Of note patient is allergic to Levemir. FF blood sugars reinforced diet and diabetic teaching Normocytic Anemia H and H up S/P Transfuse 2 units PRBCs 11/25. Monitor CBC and coags. Guaiac stool for Heme. GI ff GI prophylaxis with Protonix 40 mg daily and DVT prophylaxis with SCDs. Not on chemical anticoagulation prophylaxis given underlying anemia. GET PT/OT daily- for deconditioning CM consult for DC planning Problem Qualifiers (1) Acute renal failure: Qualified Code: N17.9 - Acute renal failure, unspecified acute renal failure type (2) Pancreatitis: Qualified Code: K85.90 - Acute pancreatitis without infection or necrosis, unspecified pancreatitis type Eliana Clay MD Nov 26, 2016 15:51
[2016-11-26] MEDS ORDERED: POTASSIUM CHLORIDE INJ 20 MEQ in DEXTROSE 5% IN WATE 1000ML INJ 1,000 ML IV SCH ×4 (16:00→16:15)
--- NOTE | 2016-11-26 16:47 | HHI.GIFU ---
Subjective Remarks Resting in bed. No n/v. No abdominal pain. Tolerating diet. No active bleeding. Objective Vitals I&O Vital Signs Date Time Temp Pulse Resp B/P Pulse Ox O2 Delivery O2 Flow Rate FiO2 11/26/16 12:00 97.9 75 20 121/74 97 11/26/16 08:20 83 11/26/16 08:00 98.1 89 20 131/73 96 11/26/16 04:00 98.9 92 18 130/67 100 11/26/16 00:00 98.1 79 18 145/83 99 11/25/16 23:45 98.1 79 18 145/83 99 11/25/16 21:19 97.6 88 18 125/72 100 11/25/16 20:56 98.0 98 20 151/69 100 11/25/16 20:00 98.0 98 20 151/69 100 11/25/16 20:00 92 11/25/16 18:10 97.5 90 18 126/80 100 I/O 11/25/16 11/25/16 11/25/16 11/26/16 11/26/16 11/26/16 07:00 15:00 23:00 07:00 15:00 23:00 Intake Total 465 ml 620 ml 1200 ml 240 ml Output Total 800 ml 1175 ml 450 ml Balance -335 ml -555 ml 1200 ml -210 ml Intake Oral 400 ml 240 ml IV Total 465 ml 220 ml 1200 ml Output Urine Total 800 ml 1175 ml 450 ml # Bowel Movements 4 2 Laboratory Laboratory Tests Test 11/26/16 11/26/16 06:13 06:31 White Blood Count 5.2 Red Blood Count 3.29 Hemoglobin 9.4 Hematocrit 28.2 Mean Corpuscular Volume 85.7 Mean Corpuscular Hemoglobin 28.4 Mean Corpuscular Hemoglobin 33.2 Concent Red Cell Distribution Width 15.2 Platelet Count 100 Mean Platelet Volume 10.1 Neutrophils (%) (Auto) 67.9 Lymphocytes (%) (Auto) 21.0 Monocytes (%) (Auto) 8.5 Eosinophils (%) (Auto) 2.0 Basophils (%) (Auto) 0.6 Neutrophils # (Auto) 3.5 Lymphocytes # (Auto) 1.1 Monocytes # (Auto) 0.4 Eosinophils # (Auto) 0.1 Basophils # (Auto) 0.0 CBC Comment DIFF FINAL Differential Comment Sodium Level 151 Potassium Level 4.0 Chloride Level 120 Carbon Dioxide Level 23.2 Anion Gap 8 Blood Urea Nitrogen 21 Creatinine 1.41 Estimat Glomerular Filtration 48 Rate Random Glucose 118 Calcium Level 7.3 Protein Corrected Calcium 8.6 Phosphorus Level 3.1 Magnesium Level 2.1 Total Bilirubin 0.2 Aspartate Amino Transf 18 (AST/SGOT) Alanine Aminotransferase 15 (ALT/SGPT) Alkaline Phosphatase 127 Total Creatine Kinase 85 Total Protein 4.8 Albumin 1.8 Lipase 1195 Phenytoin (Dilantin) Level 6.3 Date/Time Procedure Status Source Growth 11/22/16 02:30 Aerobic Blood Culture - Preliminary Resulted Blood Peripheral NO GROWTH IN 4 DAYS 11/22/16 02:30 Anaerobic Blood Culture - Preliminary Resulted Blood Peripheral NO GROWTH IN 4 DAYS Imaging Last Impressions Small Bowel X-Ray 11/25/16 0000 Signed Impressions: Service Date/Time: November 12:23 - CONCLUSION: 1. Unremarkable small bowel examination. 2. Mild scoliosis of the lumbar spine. Villa Calderon MD Chest X-Ray 11/23/16 0000 Signed Impressions: Service Date/Time: Wednesday, November 23, 2016 03:41 - CONCLUSION: No acute cardiopulmonary disease. Tr Luna MD Abdomen/Pelvis CT 11/22/16 0605 Signed Impressions: Service Date/Time: Tuesday, November 22, 2016 06:44 - CONCLUSION: 1. Nonspecific induration of the fat surrounding the pancreas and descending duodenum. This could represent acute pancreatitis or a duodenitis. Suggest correlation with clinical history and laboratory values. 2. Small volume of free fluid is present within the pelvis. 3. Low density of the cardiac blood pole is suggestive of anemia. Jim Michaels MD Head CT 11/22/16 0234 Signed Impressions: Service Date/Time: Tuesday, November 22, 2016 03:32 - CONCLUSION: Unremarkable study. Tr Luna MD Physical Exam HEENT: Normocephalic; atraumatic; no jaundice. CHEST: CTA CARDIAC: RRR. ABDOMEN: Soft, nondistended, nontender; no hepatosplenomegaly; bowel sounds are present in all four quadrants. EXTREMITIES: No clubbing, cyanosis, or edema. SKIN: Normal; no rash; no jaundice. LEVEL VIAL INSPECTOR AND TESTER: No focal deficits; lethargic and oriented times three. Assessment and Plan Plan ASSESSMENT: - Acute pancreatitis, unclear etiology. Abdomen/Pelvis CT (11/22/16)----> 1. Nonspecific induration of the fat surrounding the pancreas and descending duodenum. This could represent acute pancreatitis or a duodenitis. Suggest correlation with clinical history and laboratory values. 2. Small volume of free fluid is present within the pelvis. 3. Low density of the cardiac blood pole is suggestive of anemia. Pt denies any prior history of pancreatitis. Denies ETOH use. Denies any new medications. Does have Lupus and therefore will check IgG 4 level- this is pending. S/P Cholecystectomy in the past for cholelithiasis. LFTs unremarkable other than elevation of alk phosph. She does have anemia, but this appears to be chronic. No signs of PUD at this time. Had EGD on September 08, 2016 with no evidence of PUD. Meds reviewed. Only atorvastatin Class 3 and this is not a new med. Clinically doing well, no nausea, vomiting. Tolerating diet, but downgraded to full liquids per patient request, because these foods are easier for her to eat. Would like to try a soft diet today. Lipase 1195. IgG 4 level pending. - Anemia, chronic. Likely r/t chronic disease. EGD/Colonoscopy (09/08/16)----> Normal EGD, Diverticulosis. SBFT (11/25/16)----> 1. Unremarkable small bowel examination. 2. Mild scoliosis of the lumbar spine. 2 units of prbc , HH stable 9.4/28.4. Hemoccult stool. - Diarrhea. IMPROVED. - DKA, DM. Improved. - Lupus with acute on chronic CKD. Creat improving, 1.41. - Thrombocytopenia, Plt 100,000. - Depression, Sz D/O, Asthma, Hyperlipidemia, Electrolyte abnormalities per primary. PLAN - Soft low fat diet - IgG 4 level pending - Monitor HH - Transfuse if needed - Monitor labs - Hemoccult stool - Capsule endoscopy as outpatient - GI will sign off, please reconsult as needed - FU SHARI 2 weeks - Pt seen and examined by Dr. Loza and myself and this note is written on his behalf Doris Osman Nov 26, 2016 16:47
[2016-11-26] MEDS: D5W + KCL 20 MEQ INJ 1,000 ML IV SCH (17:02)
[2016-11-26] MEDS: INSULIN GLARGINE 1,000 UNITS/10 ML VIAL SQ SCH (21:00)
[2016-11-27] VITALS: BP 131/79; PULSE 84; RESP 20; TEMP 98; O2SAT 96
[2016-11-27] MEDS: INSULIN ASPART SUPPLEMENTAL SCALE SQ SCH ×3 (02:36→11:00)
[2016-11-27] MEDS: AZTREONAM INJ 1,000 MG in SODIUM CHLORIDE 0.9% INJ 100 ML IV SCH (02:36)
[2016-11-27] MEDS: CHLORHEXIDINE GLUCONATE 2 % 1 PACK (2 CLOTHS) TOP SCH (03:10)
[2016-11-27 04:00] VITALS: BP 95/60; PULSE 74; RESP 18; TEMP 98.4; O2SAT 97
[2016-11-27 08:00] VITALS: BP 122/78; PULSE 78; RESP 16; TEMP 97.7; O2SAT 96
[2016-11-27 08:20] LABS: AUTOMATED NEUTROPHIL # 3.1 TH/MM3 (1.8-7.7); BASOPHIL % 0.6 % (0.0-2.0); EOSINOPHIL # 0.1 TH/MM3 (0-0.4); EOSINOPHIL % 1.9 % (0.0-4.0); HEMATOCRIT 27.2 % (35.0-46.0); HEMO FLAGS DIFF FINAL; LYMPH % 25.3 % (9.0-44.0); LYMPHOCYTE # 1.4 TH/MM3 (1.0-4.8); MEAN CELL VOLUME 85.1 FL (80.0-100.0); MEAN CORPUSCULAR HGB CONC 34.1 % (32.0-36.0); MONO % 13.8 % (0.0-8.0); NEUT % 58.4 % (16.0-70.0); PLATELET COUNT 115 TH/MM3 (150-450); RED CELL DISTRIBUTION WIDTH 14.7 % (11.6-17.2); WHITE BLOOD COUNT 5.3 TH/MM3 (4.0-11.0)
[2016-11-27 08:33] LABS: BICARBONATE 24.3 MEQ/L (21.0-32.0); POTASSIUM 4.2 MEQ/L (3.5-5.1)
--- NOTE | 2016-11-27 08:54 | HHI.PR ---
Subjective Remarks tolerating soft diet and Glucerna no abodminal pain, nausea complaints + flatus Objective Vitals Vital Signs Date Time Temp Pulse Resp B/P Pulse Ox O2 Delivery O2 Flow Rate FiO2 11/27/16 04:00 98.4 74 18 95/60 97 11/27/16 00:00 98.0 84 20 131/79 96 11/26/16 20:00 85 11/26/16 20:00 98.2 91 20 133/66 97 11/26/16 16:00 98.1 85 20 117/72 99 11/26/16 12:00 97.9 75 20 121/74 97 I/O 11/26/16 11/26/16 11/26/16 11/27/16 11/27/16 11/27/16 07:00 15:00 23:00 07:00 15:00 23:00 Intake Total 240 ml 600 ml 379 ml Output Total 450 ml 1300 ml Balance -210 ml -700 ml 379 ml Intake Oral 240 ml 600 ml IV Total 379 ml Output Urine Total 450 ml 1300 ml # Voids 1 # Bowel Movements 2 0 1 Result Diagram: 11/27/16 0757 11/27/16 0757 Imaging Last Impressions Small Bowel X-Ray 11/25/16 0000 Signed Impressions: Service Date/Time: November 12:23 - CONCLUSION: 1. Unremarkable small bowel examination. 2. Mild scoliosis of the lumbar spine. Villa Calderon MD Chest X-Ray 11/23/16 0000 Signed Impressions: Service Date/Time: Wednesday, November 23, 2016 03:41 - CONCLUSION: No acute cardiopulmonary disease. Tr Luna MD Abdomen/Pelvis CT 11/22/16 0605 Signed Impressions: Service Date/Time: Tuesday, November 22, 2016 06:44 - CONCLUSION: 1. Nonspecific induration of the fat surrounding the pancreas and descending duodenum. This could represent acute pancreatitis or a duodenitis. Suggest correlation with clinical history and laboratory values. 2. Small volume of free fluid is present within the pelvis. 3. Low density of the cardiac blood pole is suggestive of anemia. Jim Michaels MD Head CT 11/22/16 0234 Signed Impressions: Service Date/Time: Tuesday, November 22, 2016 03:32 - CONCLUSION: Unremarkable study. Tr Luna MD Objective Remarks awake and alert oriented x 3blunt affect but has a sweet smile if she did smile anicteric lungs no rales regular rhythm abdomen-soft, nontender, good bowels sounds extremities no edema, no calf swelling neuro moves all extremties- generalized weakness A/P Problem List: (1) CKD (chronic kidney disease), stage III ICD Code: N18.3 Status: Acute (2) Insulin dependent diabetes mellitus ICD Code: E11.9 Status: Acute (3) GERD (gastroesophageal reflux disease) ICD Code: K21.9 Status: Chronic (4) Acute renal failure ICD Code: N17.9 Status: Acute (5) Anemia ICD Code: D64.9 Status: Acute (6) Diabetic neuropathy ICD Code: E11.40 Status: Acute (7) Pancreatitis ICD Code: K85.9 Status: Acute Assessment and Plan Acute toxic metabolic encephalopathy secondary to diabetic ketoacidosis History of left centrum ovale CVA/lacunar Seizure disorder NOS Depression mental status- improved on Keppra 500 mg p.o. b.i.d., Dilantin 100 mg p.o. t.i.d. UDS is negative. Seizure precautions Continue fluoxetine 10 mg by mouth daily History of bronchial asthma- HAD Bilateral dependent lower lobe atelectasis on CT abdomen/pelvis As needed bronchodilator therapy with albuterol every 2 hours when necessary Nasal cannula if necessary to maintain saturations greater than equal to 92% lungs clear. Encourage out of bed and incentive spirometry Hypertension Dyslipidemia atorvastatin 80 mg by mouth daily. Triglycerides 217 metoprolol 12.5 mg by mouth twice a day and clonidine 0.1 mg by mouth twice a day Hypernatremia Hypopotassemia Na improved. Acute pancreatitis- tolerating po. soft diet. Glucerna for supplements CT abdomen/post revealed dependent atelectasis, low-density cardiac pole indicative anemia, induration that around pancreas and descending duodenal slight edema with induration the perienteric fat in the retroperitoneum. -OP ff up with GI GI seen and signed off. On Protonix 40 mg po. On PO diabetic diet. ID: Leukocytosis likely reactive Continue with abx(Aztreonam) and monitor for signs of infections(fever and WBC) . - will DC- no signs of infection- Follow-up on blood cultures from 11/22: NGTD She was given vancomycin, Flagyl and aztreonam in the ED. Endo: DM Admission with DKA - resolved Continue with SSI and Lantus 10units qhs. Of note patient is allergic to Levemir. FF blood sugars reinforced diet and diabetic teaching d/w her and reinforced Normocytic Anemia H and H stable S/P Transfuse 2 units PRBCs 11/25. OP GI ff up for capsule endoscopy GI prophylaxis with Protonix 40 mg daily and DVT prophylaxis with SCDs. Not on chemical anticoagulation prophylaxis given underlying anemia. GET PT/OT daily- for deconditioning CM consult for DC planning- home health care nursing and PT for deconditioning PCP ff up with- states she sees Dr. Cardoso and has a good rapport with his NURSING ADMINISTRATOR- Radha Problem Qualifiers (1) Acute renal failure: Qualified Code: N17.9 - Acute renal failure, unspecified acute renal failure type (2) Pancreatitis: Qualified Code: K85.90 - Acute pancreatitis without infection or necrosis, unspecified pancreatitis type Eliana Clay MD Nov 27, 2016 08:54
--- NOTE | 2016-11-27 08:59 | HHI.FF ---
Face to Face Verification Diagnosis: (1) DM (diabetes mellitus), type 1 with hyperosmolarity (2) Adjustment disorder with anxiety (3) GI bleed (4) Seizure Physical Therapy Order: Evaluate and Treat, Improve ambulation, Strength and gait training Occupational Therapy Order: Improve ADL Home Health Nursing Order: Medical education Signs/symptoms of disease process Diabetic education Nursing assessment with vital signs Home Health Aide Order: To Assist In: railcar foreman and meal prep Picker And Packer Order: To Evaluate: Support services I have seen patient Love Lang on 11/27/16. My clinical findings support the need for the requested home health care services because: Deconditioned w/ increased weakness Need for psychosocial assistance I certify that my clinical findings support that this patient is homebound because: Need for psychosocial assistance Eliana Clay MD Nov 27, 2016 08:58
[2016-11-27] MEDS: D5W + KCL 20 MEQ INJ 1,000 ML IV SCH (09:04)
[2016-11-27] MEDS: cloNIDine HCL 0.1 MG TAB PO SCH (09:04)
[2016-11-27] MEDS: ATORVASTATIN 80 MG TAB PO SCH (09:04)
[2016-11-27] MEDS: FLUoxetine HCL 10 MG CAP PO SCH (09:05)
[2016-11-27] MEDS: levETIRAcetam 500 MG TAB PO SCH (09:05)
[2016-11-27] MEDS: METOPROLOL TARTRATE 25 MG TAB PO SCH (09:05)
[2016-11-27] MEDS: PHENYTOIN SODIUM 100 MG CAP PO SCH (09:05)
[2016-11-27] MEDS: DOCUSATE SODIUM 50 MG/SENNA 8.6 MG TAB PO SCH (09:05)
[2016-11-27] MEDS: SODIUM CHLORIDE 0.9% FLUSH 10 ML FLUSH IV FLUSH SCH (09:06)
[2016-11-27] MEDS ORDERED: WALKER WHEELS/F1 MIS (09:12)
[2016-11-27] MEDS ORDERED: WHEEMIS3 (10:07)
--- NOTE | 2016-11-27 10:11 | HHI.DS ---
Discharge Summary Admission Date Nov 22, 2016 at 06:10 Discharge Date: Nov 27, 2016 Admitting Diagnosis DKA, Acute pancreatitis (1) CKD (chronic kidney disease), stage III ICD Code: N18.3 Diagnosis: Principal (2) Insulin dependent diabetes mellitus ICD Code: E11.9 Diagnosis: Principal (3) GERD (gastroesophageal reflux disease) ICD Code: K21.9 Diagnosis: Principal (4) Acute renal failure ICD Code: N17.9 Diagnosis: Principal (5) Anemia ICD Code: D64.9 Diagnosis: Principal (6) Diabetic neuropathy ICD Code: E11.40 Diagnosis: Principal (7) Pancreatitis ICD Code: K85.9 Diagnosis: Principal Procedures none Brief History - From Admission The patient is a 46-year-old female with a past medical history of hypertension, anemia, diabetes mellitus, lupus and seizure disorder, who presented to [facility] ED with a critically high blood sugar noted at home. The patient was also confused. The patient's family called the ambulance service and she was noted prior to arrival to be sleepy and slowly answering questions. The patient was found in DKA and she had a blood sugar of 1016 on a BMP with metabolic acidosis and anion gap of 27. ABG was performed on room air oxygen which showed severe metabolic acidosis with a pH of 7.2, CO2 24, PAO2 113, bicarb 9, saturation 94%. In the ER she was given regular insulin 5 units IV push along with 2 liters of normal saline boluses and subsequently placed on insulin drip per DKA protocol. She is currently on 7.5 units per hour. Other significant laboratory data showed acute renal failure with a BUN of 69, creatinine 3.88 and leukocytosis with WBC of 18.1 and hemoglobin 7.8. The patient also was found to have acute pancreatitis with a lipase level of 10,739. A CT of the abdomen and pelvis showed findings likely representing acute pancreatitis or duodenitis. She was given aztreonam, Flagyl and vancomycin in the ER. Chest x-ray on arrival showed no acute cardiopulmonary disease and CT scan of the brain was obtained as well which was unremarkable. The patient is afebrile and when seen she is on room air oxygen with a saturation of 99% and blood pressure 109/61 with a pulse of 90. She denies any chest pain, shortness of breath, nausea, vomiting, abdominal pain or any constitutional symptoms. She was recently admitted on November 08 for DKA as well. The patient overall is a poor historian. CBC/BMP: 11/27/16 0757 11/27/16 0757 Significant Findings Laboratory Tests Test 11/25/16 11/26/16 11/26/16 11/27/16 04:49 06:13 06:31 07:57 Red Blood Count 2.28 MIL/MM3 3.29 MIL/MM3 3.20 MIL/MM3 (4.00-5.30) (4.00-5.30) (4.00-5.30) Hemoglobin 6.5 GM/DL 9.4 GM/DL 9.3 GM/DL (11.6-15.3) (11.6-15.3) (11.6-15.3) Hematocrit 19.9 % 28.2 % 27.2 % (35.0-46.0) (35.0-46.0) (35.0-46.0) Platelet Count 129 TH/MM3 100 TH/MM3 115 TH/MM3 (150-450) (150-450) (150-450) Band Neutrophils % 9 % (0-6) Myelocytes 1 % (0-0) Platelet Estimate LOW (NORMAL) Sodium Level 148 MEQ/L 151 MEQ/L 146 MEQ/L (136-145) (136-145) (136-145) Potassium Level 3.4 MEQ/L (3.5-5.1) Chloride Level 116 MEQ/L 120 MEQ/L 116 MEQ/L (98-107) (98-107) (98-107) Blood Urea Nitrogen 22 MG/DL (7-18) 21 MG/DL (7-18) 20 MG/DL (7-18) Creatinine 1.31 MG/DL 1.41 MG/DL 1.38 MG/DL (0.50-1.00) (0.50-1.00) (0.50-1.00) Calcium Level 7.9 MG/DL 7.3 MG/DL 7.6 MG/DL (8.5-10.1) (8.5-10.1) (8.5-10.1) Lipase 2181 U/L 1195 U/L (73-393) (73-393) Monocytes (%) (Auto) 8.5 % (0.0-8.0) 13.8 % (0.0-8.0) Estimat Glomerular Filtration 48 ML/MIN (>89) 49 ML/MIN (>89) Rate Random Glucose 118 MG/DL (74-106) Alkaline Phosphatase 127 U/L (45-117) Total Protein 4.8 GM/DL (6.4-8.2) Albumin 1.8 GM/DL (3.4-5.0) Phenytoin (Dilantin) Level 6.3 MCG/ML (10.0-20.0) Imaging Last Impressions Small Bowel X-Ray 11/25/16 0000 Signed Impressions: Service Date/Time: November 12:23 - CONCLUSION: 1. Unremarkable small bowel examination. 2. Mild scoliosis of the lumbar spine. Villa Calderon MD Chest X-Ray 11/23/16 0000 Signed Impressions: Service Date/Time: Wednesday, November 23, 2016 03:41 - CONCLUSION: No acute cardiopulmonary disease. Tr Luna MD Abdomen/Pelvis CT 11/22/16 0605 Signed Impressions: Service Date/Time: Tuesday, November 22, 2016 06:44 - CONCLUSION: 1. Nonspecific induration of the fat surrounding the pancreas and descending duodenum. This could represent acute pancreatitis or a duodenitis. Suggest correlation with clinical history and laboratory values. 2. Small volume of free fluid is present within the pelvis. 3. Low density of the cardiac blood pole is suggestive of anemia. Jim Michaels MD Head CT 11/22/16 0234 Signed Impressions: Service Date/Time: Tuesday, November 22, 2016 03:32 - CONCLUSION: Unremarkable study. Tr Luna MD PE at Discharge awake and alert oriented x 3blunt affect but has a sweet smile if she did smile anicteric lungs no rales regular rhythm abdomen-soft, nontender, good bowels sounds extremities no edema, no calf swelling neuro moves all extremties- generalized weakness Pt update on day of discharge awake and alert, sweet, reinforced compliance states she got support at home and willing to have home health care nursing visit arranged fwill ff up with PCP- she got good rapport with his Nurse- [facility] Course Acute toxic metabolic encephalopathy secondary to diabetic ketoacidosis History of left centrum ovale CVA/lacunar Seizure disorder NOS Depression mental status- improved on Keppra 500 mg p.o. b.i.d., Dilantin 100 mg p.o. t.i.d. UDS is negative. Seizure precautions Continue fluoxetine 10 mg by mouth daily History of bronchial asthma- HAD Bilateral dependent lower lobe atelectasis on CT abdomen/pelvis As needed bronchodilator therapy with albuterol every 2 hours when necessary Nasal cannula if necessary to maintain saturations greater than equal to 92% lungs clear. Encourage out of bed and incentive spirometry Hypertension Dyslipidemia atorvastatin 80 mg by mouth daily. Triglycerides 217 metoprolol 12.5 mg by mouth twice a day and clonidine 0.1 mg by mouth twice a day Hypernatremia Hypopotassemia Na improved. Acute pancreatitis- tolerating po. soft diet. Glucerna for supplements CT abdomen/post revealed dependent atelectasis, low-density cardiac pole indicative anemia, induration that around pancreas and descending duodenal slight edema with induration the perienteric fat in the retroperitoneum. -OP ff up with GI GI seen and signed off. On Protonix 40 mg po. On PO diabetic diet. ID: Leukocytosis likely reactive Continue with abx(Aztreonam) and monitor for signs of infections(fever and WBC) . - will DC- no signs of infection- Follow-up on blood cultures from 11/22: NGTD She was given vancomycin, Flagyl and aztreonam in the ED. Endo: DM Admission with DKA - resolved Continue with SSI and Lantus 10units qhs. Of note patient is allergic to Levemir. FF blood sugars reinforced diet and diabetic teaching d/w her and reinforced Normocytic Anemia H and H stable S/P Transfuse 2 units PRBCs 11/25. OP GI ff up for capsule endoscopy GI prophylaxis with Protonix 40 mg daily and DVT prophylaxis with SCDs. Not on chemical anticoagulation prophylaxis given underlying anemia. GET PT/OT daily- for deconditioning CM consult for DC planning- home health care nursing and PT for deconditioning PCP ff up with- states she sees Dr. Cardoso and has a good rapport with his FIXED ROUTE OPERATOR- Radha Pt Condition on Discharge: Stable Discharge Disposition: Disch w/ Home Health Serv Discharge Time: <= 30 minutes Discharge Instructions DIET: Follow Instructions for: Heart Healthy Diet, Diabetic Diet Speech Therapy-Diet Recommends: Mechanical Soft Activities you can perform: Weight Bearing as Cezar Activities to Avoid: Strenuous Activity Follow up Referrals: Gastroenterology - 2 Weeks @ [facility] PCP Follow-up - 11/29/16 with eryn New Orders: BASIC METABOLIC PROF - 11/29/16 CBC NO DIFF - 11/29/16 New Medications: Walker with Front Wheels (Walker with Front Wheels) 1 Mis Mis 1 EA .ROUTE DIRECTED deconditining #1 Ref 0 EA Wheelchair (Wheelchair) 1 Mis Mis 1 EA .ROUTE DIRECTED as dierected deconditoning #1 Ref 0 EA Continued Medications: Atorvastatin (Atorvastatin) 80 Mg Tab 80 MG PO DAILY Cholesterol Management #30 Ref 0 TAB Clonidine (Clonidine) 0.1 Mg Tab 0.1 MG PO DAILY Blood Pressure Management #60 Ref 0 TAB Fluoxetine (Fluoxetine) 10 Mg Tab 10 MG PO DAILY #30 Ref 0 TAB Insulin Aspart Inj (Novolog Inj) 100 Unit/Ml Inj 1 UNITS SQ ACHS SLIDING SCALE Blood Sugar Management Days 30 INJECTION Insulin Glargine Inj (Lantus Inj) 1,000 Unit/10 Ml Vial 10 UNITS SQ HS Blood Sugar Management #1 Ref 0 VIAL Levetiracetam (Levetiracetam) 500 Mg Tab 500 MG PO BID Control Seizures #60 Ref 0 TAB Phenytoin Extended (Dilantin) 100 Mg Cap 100 MG PO TID Control Seizures #90 Ref 0 CAP Discontinued Medications: Levofloxacin (Levofloxacin) 500 Mg Tablet 500 MG PO DAILY Infection Days 3 Ref 0 TAB Metoprolol Tartrate (Metoprolol Tartrate) 25 Mg Tab 25 MG PO BID #60 Ref 0 TAB Nifedipine ER 24 HR (Nifedipine ER 24 HR) 30 Mg Tab 60 MG PO DAILY Blood Pressure Management #30 TAB Eliana Clay MD Nov 27, 2016 10:11
[2016-11-27 12:00] VITALS: BP 111/63; PULSE 75; RESP 14; TEMP 98.3; O2SAT 96
[2016-12-01 17:52] LABS: IGG SERUM-IGG SUBCLASSES ND mg/dL (694-1618); IGG SUBCLASSES 1 ND mg/dL (382-929); IGG SUBCLASSES 2 ND mg/dL (241-700); IGG SUBCLASSES 3 ND mg/dL (22-178); IGG SUBCLASSES 4 ND mg/dL (4-86)
[2016-12-02 09:48] LABS: IGG SUBCLASSES 4 37.4 mg/dL (4.0-86)
== END 2016-11-27 15:30 | disposition home health service (06) | DRG 637 ==
LOC: NEPE 02:28 → NEDA 06:10 → HIMW 08:10 → N04A 11-25 18:03
PROVIDERS: ADMIT Internal Medicine; ATTEND Internal Medicine
PROC: 30233N1 Transfusion of Nonautologous Red Blood Cells into Peripheral Vein, Percutaneous Approach (ICD-10-PCS; principal; 2016-11-25)
DX: E10.10 Type 1 diabetes mellitus with ketoacidosis without coma (principal); K85.90 Acute pancreatitis without necrosis or infection, unspecified; G93.41 Metabolic encephalopathy; E87.0 Hyperosmolality and hypernatremia; N17.9 Acute kidney failure, unspecified; N18.3 Chronic kidney disease, stage 3 (moderate); E10.22 Type 1 diabetes mellitus with diabetic chronic kidney disease; J98.11 Atelectasis; D69.6 Thrombocytopenia, unspecified; M32.9 Systemic lupus erythematosus, unspecified; J45.909 Unspecified asthma, uncomplicated; E10.40 Type 1 diabetes mellitus with diabetic neuropathy, unspecified; I12.9 Hypertensive chronic kidney disease with stage 1 through stage 4 chronic kidney disease, or unspecified chronic kidney disease; K21.9 Gastro-esophageal reflux disease without esophagitis; E87.6 Hypokalemia; F32.9 Major depressive disorder, single episode, unspecified; F43.22 Adjustment disorder with anxiety; E78.5 Hyperlipidemia, unspecified; G40.909 Epilepsy, unspecified, not intractable, without status epilepticus; D64.9 Anemia, unspecified; K57.90 Diverticulosis of intestine, part unspecified, without perforation or abscess without bleeding; M19.90 Unspecified osteoarthritis, unspecified site; Z79.4 Long term (current) use of insulin; Z86.73 Personal history of transient ischemic attack (TIA), and cerebral infarction without residual deficits
CPT/HCPCS: 36430; 36600; 70450; 71010; 74176; 74250; 76937; 80048; 80053; 80185; 80307; 81001; 82010; 82550; 82784; 82787; 82805; 82948; 83036; 83516; 83605; 83690; 83735; 84100; 84132; 84155; 84478; 84484; 84703; 85007; 85025; 85027; 85610; 86850; 86900; 86901; 86920; 87040; 87641; 93005; 94150; 96365; 96366; 96375; C9113; J1815; J1817; J1940; J3370; J3480; J7030; J7042; J7050; J7070; P9016; Q9963

== ENCOUNTER 2016-12-02 17:37 | Inpatient (IN) | payer MEDICAID, OTHER ==
[~2016-12-02] VITALS: Ht 157.5 cm; Wt 72.4 kg
[~2016-12-02 17:37] MED LIST changes: -LEVO500T8 PO; -METO25TA3 PO; -NIFE30TA8 PO; +WALKER WHEELS/F1 MIS; +WHEEMIS3
[2016-12-02 17:38] VITALS: BP 114/63; PULSE 100; RESP 18; TEMP 98.8; O2SAT 96
[2016-12-02] MEDS ORDERED: ACETAMINOPHEN/HYDROcodone 325 MG/5 MG TAB PO ONE (18:15)
--- NOTE | 2016-12-02 18:19 | PD ---
HPI Chief Complaint: Injury Time Seen by Provider: 18:02 Travel History International Travel<30 days: No Contact w/Intl Traveler<30days: No Traveled to known affect area: No History of Present Illness HPI 46-year-old female here for evaluation of right ankle injury. The patient reports that about an hour prior to arrival she slipped while walking down a stair. She now has 8 out of 10 pain in her right ankle. She denies any other injuries. Pain is constant, worse with movement and palpation. She is unable to ambulate because of the pain. PFSH Past Medical History Arthritis: Yes Asthma: Yes Autoimmune Disease: Yes (LUPUS) Blood Disorders: Yes Anxiety: No Depression: No Heart Rhythm Problems: No Cancer: No High Cholesterol: Yes Chemotherapy: No Chest Pain: No Congestive Heart Failure: No COPD: No Cerebrovascular Accident: Yes (2013) Diabetes: Yes (TYPE 2; TAKES LANTIS & NOVOLOG) Diminished Hearing: No Endocrine: Yes Gastrointestinal Disorders: Yes Genitourinary: Yes Hypertension: Yes Immune Disorder: Yes Kidney Stones: Yes Musculoskeletal: Yes Neurologic: Yes Psychiatric: No Reproductive: No Respiratory: Yes Radiation Therapy: No Renal Failure: Yes (Stage II) Seizures: Yes Sickle Cell Disease: No Sleep Apnea: No Thyroid Disease: No ?: Not : 1 Para: 1 Past Surgical History Abdominal Surgery: Yes Cardiac Surgery: No Section: Yes Cholecystectomy: Yes Ear Surgery: No Endocrine Surgery: No Eye Surgery: No Genitourinary Surgery: No Gynecologic Surgery: Yes ( ) Hysterectomy: Yes (PARTIAL) Oral Surgery: No Thoracic Surgery: No Other Surgery: Yes (LEFT FOOT WOUND MECHANICAL DEBRIDEMENT) Social History Alcohol Use: Yes (OCCASIONAL/HOLIDAYS) Tobacco Use: No Substance Use: No Allergies-Medications (Allergen,Severity, Reaction): Coded Allergies: Aspirin (Verified Allergy, Severe, 12/02/16) RASH Levemir (Verified Allergy, Severe, Sweats, funny feeling, mood swings, daze, 12/02/16) Penicillin (Verified Allergy, Severe, 12/02/16) Sulfa (Verified Allergy, Severe, 12/02/16) RASH Banana (Verified Allergy, Intermediate, Hives, 12/02/16) Adhesives (Verified Allergy, Unknown, 12/02/16) Macrobid (Unverified Allergy, Unknown, 12/02/16) *MDRO Multi-Drug Resistant Organism (Unverified Adverse Reaction, Unknown , 12/02/16) MRSA 2013 MRSA PCR Screen POSITIVE on 01/22/16 & 11/09/16 Reported Meds & Prescriptions Reported Meds & Active Scripts Active Lantus Inj (Insulin Glargine) 1,000 Unit/10 Ml Vial 10 Units SQ HS Reported Novolog Inj (Insulin Aspart) 1,000 Unit/10 Ml Vial Unknown Dose SQ ACHS Max dose at bedtime ( ) units; sugars less than 70,(0) units; sugars 150-199,(2) units; sugars 200-249,(4) units; sugars 250-299,(7) units; sugars 300-349,(10) units; sugars greater than 349,(12)units Dilantin (Phenytoin Extended) 100 Mg Cap 100 Mg PO BID Clonidine (Clonidine HCl) 0.1 Mg Tab 0.1 Mg PO DAILY Fluoxetine (Fluoxetine HCl) 10 Mg Tab 10 Mg PO DAILY Levetiracetam 500 Mg Tab 500 Mg PO BID Atorvastatin (Atorvastatin Calcium) 80 Mg Tab 80 Mg PO DAILY Review of Systems Except as stated in HPI: all other systems reviewed are Neg Physical Exam Narrative GENERAL: Well-developed, well-nourished, awake, alert, comfortable, no acute distress. SKIN: Focused skin assessment warm/dry. HEAD: Atraumatic. Normocephalic. EYES: Pupils equal and round. No scleral icterus. No injection or drainage. ENT: Mucous membranes pink and moist. NECK: Trachea midline. No JVD. CARDIOVASCULAR: Regular rate and rhythm. Bilateral dorsalis pedis pulses are 1 + bilaterally RESPIRATORY: No accessory muscle use. Clear to auscultation. Breath sounds equal bilaterally. GASTROINTESTINAL: Abdomen soft, non-tender, nondistended. MUSCULOSKELETAL: Mild right ankle and right distal leg edema without obvious deformity. There is slight crepitus sensation over the distal leg with mild tenderness. Normal range of motion in the right ankle. No obvious foot deformities. Right knee is without obvious deformity, without tenderness, with normal range of motion. All compartments in the right lower extremity are supple. No skin breaks. NEUROLOGICAL: Awake and alert. No obvious cranial nerve deficits. Motor grossly within normal limits. Normal speech. PSYCHIATRIC: Appropriate mood and affect; insight and judgment normal. Data Data Last Documented VS Vital Signs Date Time Temp Pulse Resp B/P Pulse Ox O2 Delivery O2 Flow Rate FiO2 12/02/16 17:38 98.8 100 18 114/63 96 Orders Ankle, Complete ([id number]) (12/02/16 ) Tibia/Fibula (Ap/Lat) (12/02/16 ) Acetamin-Hydrocod 325-5 Mg ([place] 5-325 (12/02/16 18:15) Blood Glucose (12/02/16 18:19) Basic Metabolic Panel (Bmp) (12/02/16 18:29) Complete Blood Count With Diff (12/02/16 18:29) Prothrombin Time / Inr (Pt) (12/02/16 18:29) Act Partial Throm Time (Ptt) (12/02/16 18:29) Iv Access Insert/Monitor (12/02/16 18:29) Ecg Monitoring (12/02/16 18:29) Oximetry (12/02/16 18:29) Sodium Chloride 0.9% Flush (Ns Flush) (12/02/16 18:30) Splint Or Brace Apply/Monitor (12/02/16 18:56) Morphine Inj (Morphine Inj) (12/02/16 19:15) Tibia/Fibula (Ap/Lat) (12/02/16 ) Labs Laboratory Tests Test 12/02/16 18:55 White Blood Count 8.1 TH/MM3 Red Blood Count 3.32 MIL/MM3 Hemoglobin 9.7 GM/DL Hematocrit 28.9 % Mean Corpuscular Volume 87.2 FL Mean Corpuscular Hemoglobin 29.3 PG Mean Corpuscular Hemoglobin 33.6 % Concent Red Cell Distribution Width 15.5 % Platelet Count 327 TH/MM3 Mean Platelet Volume 9.3 FL Neutrophils (%) (Auto) 70.9 % Lymphocytes (%) (Auto) 17.3 % Monocytes (%) (Auto) 9.5 % Eosinophils (%) (Auto) 1.8 % Basophils (%) (Auto) 0.5 % Neutrophils # (Auto) 5.7 TH/MM3 Lymphocytes # (Auto) 1.4 TH/MM3 Monocytes # (Auto) 0.8 TH/MM3 Eosinophils # (Auto) 0.1 TH/MM3 Basophils # (Auto) 0.0 TH/MM3 CBC Comment DIFF FINAL Differential Comment Prothrombin Time 10.7 SEC Prothromb Time International 1.0 RATIO Ratio Activated Partial 24.2 SEC Thromboplast Time Sodium Level 146 MEQ/L Potassium Level 4.9 MEQ/L Chloride Level 109 MEQ/L Carbon Dioxide Level 29.8 MEQ/L Anion Gap 7 MEQ/L Blood Urea Nitrogen 10 MG/DL Creatinine 1.37 MG/DL Estimat Glomerular Filtration 50 ML/MIN Rate Random Glucose 200 MG/DL Calcium Level 8.7 MG/DL MDM Medical Decision Making Medical Screen Exam Complete: Yes Emergency Medical Condition: Yes Medical Record Reviewed: Yes Differential Diagnosis Right ankle fracture versus sprain versus contusion Narrative Course Bedside blood glucose is 195. Right ankle x-ray shows comminuted oblique fracture of the distal tibia with an oblique fracture of the distal fibula. Ankle mortise is intact. Right tib-fib x-ray shows the above fractures of the distal tibia and fibula with a proximal fibular fracture. Case discussed with on-call orthopedic surgeon Dr. Murrieta who requests that I perform close reduction of the fracture and placed a splint. He recommends admission to the medical service and he will see the patient in consultation. He'll like the patient to be NPO after midnight. CBC shows WBC 8.1, hemoglobin 9.7, hematocrit 28.9, platelets 327. BMP is remarkable for creatinine 1.37, GFR 50, random glucose 200. Case discussed with hospitalist Dr. Bello who will admit the patient to her service. Procedures Procedure Narrative Ultrasound-guided peripheral IV: Because of difficult IV access, was asked by my nurse to place an ultrasound- guided IV. Using the linear ultrasound probe, a 20-gauge IV was placed in the right arm. Site prepped with ChloraPrep prior to insertion. No complications. Tolerated well. Close reduction of right tib-fib fracture: Patient was provided IV analgesia. Close reduction was performed using traction /countertraction of the right knee at 90 of flexion in the right ankle/heel joint. Ice cuff and Storey splint applied after reduction. 1+ dorsalis pedis pulse prior to and after reduction. Postreduction x-rays ordered. Tolerated well. No Medications. Diagnosis Primary Impression: Closed fracture of right tibia and fibula Qualified Code: S82.201A - Closed fracture of right tibia and fibula, initial encounter Admitting Information Admitting Physician Requests: Admit Navin Raya MD Dec 02, 2016 18:19
[2016-12-02] MEDS ORDERED: SODIUM CHLORIDE 0.9% FLUSH 10 ML FLUSH IV FLUSH PRN ×2 (18:30→20:00)
--- NOTE | 2016-12-02 18:35 | RADRPT ---
EXAM DATE/TIME: 12/02/2016 18:15 [facility] COMPARISON: No previous studies available for comparison. INDICATIONS : Right distal tibia pain, fell MEDICAL HISTORY : None. SURGICAL HISTORY : None. ENCOUNTER: Initial ACUITY: 1 day PAIN SCORE: 9/10 LOCATION: Right Tibia FINDINGS: AP and lateral views of the right tibia and fibula were obtained and demonstrate a comminuted oblique fracture deformity involving the distal tibia beginning approximately 14 cm above the ankle mortise. This stops approximately 5 cm above the ankle mortise. There is mild medial angulation and mild dist raction measuring up to a centimeter. There is also a oblique fracture of the distal fibula approxima tely 4 cm above the ankle mortise. There is an oblique fracture through the proximal fibula as well. Overlying soft tissue swelling is present. CONCLUSION: 1. Oblique comminuted oblique fracture of the distal tibia. 2. Oblique fractures of the proximal and distal fibula. Javier Marino MD on December 02, 2016 at 18:31 Board Certified Radiologist. This report was verified electronically.
--- NOTE | 2016-12-02 18:37 | RADRPT ---
EXAM DATE/TIME: 12/02/2016 18:16 [facility] COMPARISON: TIBIA/FIBULA RIGHT (AP/LAT), December 02, 2016, 18:15. INDICATIONS : Right ankle pain, fell MEDICAL HISTORY : None. SURGICAL HISTORY : None. ENCOUNTER: Initial ACUITY: 1 day PAIN SCORE: 9/10 LOCATION: Right Ankle FINDINGS: AP, lateral and oblique views of right ankle were obtained and again demonstrate the distal tibial an d fibular fractures. The ankle mortise is intact. There is overlying soft tissue swelling. CONCLUSION: 1. The ankle mortise is intact. 2. Distal tibial and fibular fractures again noted. Please see right leg report for further details. Javier Marino MD on December 02, 2016 at 18:32 Board Certified Radiologist. This report was verified electronically.
[2016-12-02] MEDS ORDERED: NOVOLOGP2 SQ (19:14)
[2016-12-02] MEDS ORDERED: DILA100C PO (19:14)
[2016-12-02] MEDS ORDERED: MORPHINE SULFATE 8 MG/ML INJ IV PUSH ONE (19:15)
[2016-12-02 19:17] LABS: AUTOMATED NEUTROPHIL # 5.7 TH/MM3 (1.8-7.7); BASOPHIL % 0.5 % (0.0-2.0); EOSINOPHIL # 0.1 TH/MM3 (0-0.4); EOSINOPHIL % 1.8 % (0.0-4.0); HEMATOCRIT 28.9 % (35.0-46.0); HEMO FLAGS DIFF FINAL; LYMPH % 17.3 % (9.0-44.0); LYMPHOCYTE # 1.4 TH/MM3 (1.0-4.8); MEAN CELL VOLUME 87.2 FL (80.0-100.0); MEAN CORPUSCULAR HEMOGLOBIN 29.3 PG (27.0-34.0); MEAN CORPUSCULAR HGB CONC 33.6 % (32.0-36.0); MONO % 9.5 % (0.0-8.0); NEUT % 70.9 % (16.0-70.0); PLATELET COUNT 327 TH/MM3 (150-450); RED BLOOD COUNT 3.32 MIL/MM3 (4.00-5.30); RED CELL DISTRIBUTION WIDTH 15.5 % (11.6-17.2); WHITE BLOOD COUNT 8.1 TH/MM3 (4.0-11.0)
[2016-12-02 19:20] LABS: APTT (PATIENT) 24.2 SEC (24.3-30.1); PROTHROMBIN TIME - PATIENT 10.7 SEC (9.8-11.6)
[2016-12-02 19:26] LABS: BICARBONATE 29.8 MEQ/L (21.0-32.0); POTASSIUM 4.9 MEQ/L (3.5-5.1)
--- NOTE | 2016-12-02 19:59 | RADRPT ---
EXAM DATE/TIME: 12/02/2016 19:26 [facility] COMPARISON: TIBIA/FIBULA RIGHT (AP/LAT), December 02, 2016, 18:15. INDICATIONS : Post reduction right tibia. MEDICAL HISTORY : None. SURGICAL HISTORY : None. ENCOUNTER: Initial ACUITY: 1 day PAIN SCORE: 9/10 LOCATION: Right tibia/fibula FINDINGS: AP and lateral views of the right tibia and fibula were obtained and demonstrate overlying casting ma terial obscuring the fine bony detail. There has been mild interval reduction in the displacement and angulation of the distal tibial fracture fragment and fibula fracture fragment which are now in near -anatomic alignment except for mild posterior displacement of the distal tibial fracture fragment of approximately 9 mm. The proximal fibula fracture is again noted and is in near-anatomic alignment. CONCLUSION: Postreduction exam. Javier Marino MD on December 02, 2016 at 19:55 Board Certified Radiologist. This report was verified electronically.
[2016-12-02] MEDS ORDERED: NALOXONE HCL 0.4 MG/ML AMP IV PRN (20:00)
[2016-12-02] MEDS ORDERED: GLUCAGON 1 MG/ML VIAL OTHER PRN ×2 (20:15→21:15)
[2016-12-02] MEDS ORDERED: DEXTROSE 50% IN WATER 50 ML VIAL(D50) IV PRN ×2 (20:15→21:15)
[2016-12-02] MEDS: levETIRAcetam 500 MG TAB PO SCH (21:16)
[2016-12-02] MEDS: MORPHINE SULFATE 4 MG/ML INJ IV PUSH PRN (21:16)
[2016-12-02] MEDS: SODIUM CHLORIDE 0.9% FLUSH 10 ML FLUSH IV FLUSH SCH (21:16)
[2016-12-02] MEDS: PHENYTOIN SODIUM 100 MG CAP PO SCH (21:16)
[2016-12-02] MEDS ORDERED: METOPROLOL TARTRATE 25 MG TAB PO PRN (21:45)
[2016-12-02] MEDS ORDERED: INSULIN HUMAN REGULAR 1,000 UNITS/10 ML VIAL SQ PRN (21:45)
[2016-12-02] MEDS ORDERED: LACTATED RINGER'S 1000 ML IV PRN (21:45)
[2016-12-02] MEDS ORDERED: CHLORHEXIDINE GLUCONATE 2 % 1 PACK (2 CLOTHS) TOPICAL PRN (21:45)
[2016-12-02] MEDS ORDERED: SODIUM CHLORID 0.9% 500 ML IV PRN (21:45)
[2016-12-02] MEDS ORDERED: POVIDONE IODINE 5% (ANTISEPSIS KIT) 4 APPLICATIONS EACH NARE PRN (21:45)
[2016-12-02 22:03] VITALS: PULSE 92
[2016-12-02 23:00] VITALS: BP 185/97; PULSE 103; RESP 16; TEMP 96.9; O2SAT 98
--- NOTE | 2016-12-02 23:39 | HHI.HP ---
HPI Service [facility] Primary Care Physician Andrea Cardoso Admission Diagnosis closed right tibia/fibular fracture Diagnoses: Chief Complaint: fell Travel History International Travel<30 Days: No Contact w/Intl Traveler <30 Da: No Traveled to Known Affected Are: No History of Present Illness Written by Pallavi Arriaga, acting as scribe for Dr. Bello on 12/02/16 at 23: 39. This is a pleasant 46 year old female patient with a past medical history which includes DM with multiple past admissions for DKA, HTN, asthma, CKD stage III, CVA 2013 with residual deficit RUE, Seizure disorder and Lupus. Patient was walking down stairs leaving her father's house when she slipped and fell. Patient landed on her right side hurting her right ankle. Pain is worse with movement or palpation. Pain was and 8 out of 10 at it worst now pain has improved after closed reduction and splint placement in ER. She denies any other injuries. Patient did not lose consciousness and did not hit her head. Patient denies dizziness, feeling light headed, short of breath, chest pain, N/V /D, black tarry stools or red blood in stools. Review of Systems Except as stated in HPI: all other systems reviewed are Neg Past Family Social History Past Medical History 1. Bronchial asthma. 2. Lupus. 3. Hypertension. 4. Diabetes mellitus. 5. Seizure disorder. 6. CVA 2013 with residual deficit RUE 7. CKD stage III Past Surgical History 1. . 2. Cholecystectomy. 3. Partial Hysterectomy. 4. Left foot surgery. Reported Medications Lantus Inj (Insulin Glargine) 1,000 Unit/10 Ml Vial 10 Units SQ HS Novolog Inj (Insulin Aspart) 1,000 Unit/10 Ml Vial Unknown Dose SQ ACHS Max dose at bedtime ( ) units; sugars less than 70,(0) units; sugars 150-199,(2) units; sugars 200-249,(4) units; sugars 250-299,(7) units; sugars 300-349,(10) units; sugars greater than 349,(12)units Dilantin (Phenytoin Extended) 100 Mg Cap 100 Mg PO BID Clonidine (Clonidine HCl) 0.1 Mg Tab 0.1 Mg PO DAILY Fluoxetine (Fluoxetine HCl) 10 Mg Tab 10 Mg PO DAILY Levetiracetam 500 Mg Tab 500 Mg PO BID Atorvastatin (Atorvastatin Calcium) 80 Mg Tab 80 Mg PO DAILY Allergies: Coded Allergies: Aspirin (Verified Allergy, Severe, 12/02/16) RASH Levemir (Verified Allergy, Severe, Sweats, funny feeling, mood swings, daze, 12/02/16) Penicillin (Verified Allergy, Severe, 12/02/16) Sulfa (Verified Allergy, Severe, 12/02/16) RASH Banana (Verified Allergy, Intermediate, Hives, 12/02/16) Adhesives (Verified Allergy, Unknown, 12/02/16) Macrobid (Unverified Allergy, Unknown, 12/02/16) *MDRO Multi-Drug Resistant Organism (Unverified Adverse Reaction, Unknown , 12/02/16) MRSA 2013 MRSA PCR Screen POSITIVE on 01/22/16 & 11/09/16 Active Ordered Medications Current Medications Medications (Trade) Dose Ordered Sig/Marin Route Start Time Stop Time Status Last Admin (NS Flush) 2 ml UNSCH PRN IV FLUSH 12/02/16 20:00 (NS Flush) 2 ml BID IV FLUSH 12/02/16 21:00 12/02/16 21:16 (Narcan Inj) 0.4 mg UNSCH PRN IV 12/02/16 20:00 (Morphine Inj) 2 mg Q3H PRN IV PUSH 12/02/16 20:00 12/02/16 21:16 (D50w (Vial) Inj) 50 ml UNSCH PRN IV 12/02/16 20:15 (Glucagon Inj) 1 mg UNSCH PRN OTHER 12/02/16 20:15 (Lipitor) 80 mg DAILY PO 12/03/16 09:00 (Catapres) 0.1 mg DAILY PO 12/03/16 09:00 (PROzac) 10 mg DAILY PO 12/03/16 09:00 (Keppra) 500 mg BID PO 12/02/16 21:00 12/02/16 21:16 (Dilantin) 100 mg BID PO 12/02/16 21:00 12/02/16 21:16 (D50w (Vial) Inj) 50 ml UNSCH PRN IV 12/02/16 21:15 Glucagon 1 mg 1 mg UNSCH PRN OTHER 12/02/16 21:15 Lactated Ringer's 1,000 ml @ 30 mls/hr Q24H PRN IV 12/02/16 21:45 12/05/16 21:44 (NS 500 ml Inj) 500 ml @ 30 mls/hr [id number] PRN IV 12/02/16 21:45 12/05/16 21:44 Family History HTN and DM runs in her family Uncle had colon cancer Social History Occasional ETOH use Denies tobacco use or illicit drug use Physical Exam Vital Signs Vital Signs Date Time Temp Pulse Resp B/P Pulse Ox O2 Delivery O2 Flow Rate FiO2 12/02/16 22:03 92 12/02/16 17:38 98.8 100 18 114/63 96 Physical Exam GENERAL: This is a well-nourished, well-developed patient, in no apparent distress. SKIN: skin tear LLE HEAD: Atraumatic. Normocephalic. No temporal or scalp tenderness. EYES: Pupils equal round and reactive. Extraocular motions intact. No scleral icterus. No injection or drainage. CARDIOVASCULAR: Regular rate and rhythm without murmurs, gallops, or rubs. RESPIRATORY: Clear to auscultation. Breath sounds equal bilaterally. No wheezes , rales, or rhonchi. GASTROINTESTINAL: Abdomen soft, non-tender, nondistended. No guarding. MUSCULOSKELETAL: Splint RLE. NEUROLOGICAL: Awake and alert. RUE hand contracted. Motor and sensory grossly within normal limits. 4-5 out of 5 muscle strength in all muscle groups. Normal speech. Laboratory Laboratory Tests Test 12/02/16 18:55 White Blood Count 8.1 Red Blood Count 3.32 Hemoglobin 9.7 Hematocrit 28.9 Mean Corpuscular Volume 87.2 Mean Corpuscular Hemoglobin 29.3 Mean Corpuscular Hemoglobin 33.6 Concent Red Cell Distribution Width 15.5 Platelet Count 327 Mean Platelet Volume 9.3 Neutrophils (%) (Auto) 70.9 Lymphocytes (%) (Auto) 17.3 Monocytes (%) (Auto) 9.5 Eosinophils (%) (Auto) 1.8 Basophils (%) (Auto) 0.5 Neutrophils # (Auto) 5.7 Lymphocytes # (Auto) 1.4 Monocytes # (Auto) 0.8 Eosinophils # (Auto) 0.1 Basophils # (Auto) 0.0 CBC Comment DIFF FINAL Differential Comment Prothrombin Time 10.7 Prothromb Time International 1.0 Ratio Activated Partial 24.2 Thromboplast Time Sodium Level 146 Potassium Level 4.9 Chloride Level 109 Carbon Dioxide Level 29.8 Anion Gap 7 Blood Urea Nitrogen 10 Creatinine 1.37 Estimat Glomerular Filtration 50 Rate Random Glucose 200 Calcium Level 8.7 Result Diagram: 12/02/16185412/02/161854 Imaging Last Impressions Tibia/Fibula X-Ray 12/02/16 0000 Signed Impressions: Service Date/Time: November 19:26 - CONCLUSION: Postreduction exam. Javier Marino MD Ankle X-Ray 12/02/16 0000 Signed Impressions: Service Date/Time: , December 02, 2016 18:16 - CONCLUSION: 1. The ankle mortise is intact. 2. Distal tibial and fibular fractures again noted. Please see right leg report for further details. Javier Marino MD Assessment and Plan Problem List: (1) Fibula fracture ICD Code: S82.409A Status: Acute (2) Tibia fracture ICD Code: S82.209A Status: Acute Assessment and Plan This is a pleasant 46 year old female patient with a past medical history which includes DM with multiple past admissions for DKA, HTN, asthma, CKD stage III, CVA 2013 with residual deficit RUE, Seizure disorder and Lupus. Patient was walking down stairs leaving her father's house when she slipped and fell. Now with tibial and fibular fracture mechanical Fall Tibial/fibular fracture Tibial/fibular X ray reviewed by me and reveals oblique comminuted oblique fracture of the distal tibia. Oblique fractures of the proximal and distal fibula S/P closed reduction in ER with splint placement Consult orthopedic surgery NPO after midnight Morphine IV as needed for pain DM with frequent admissions for DKA accu checks with SSI coverage HTN- chronic home medication clonidine 0.1mg by mouth restarted Seizure disorder- chronic home medication Dilantin restarted DVT prophylaxis per orthopedic surgery Discussed with ER provider, nursing and patient This note was transcribed by simone [Otilia Arriaga]. I, Dr. Delvis Bello personally performed the history, physical exam, and medical decision making; and confirmed the accuracy of the information in the transcribed note. Authenticated by Dr. Delvis Bello on 12/02/16 at 23:39. Physician Certification 2 Midnight Certification Type: Admission for Inpatient Services Order for Inpatient Services The services are ordered in accordance with Medicare regulations or non- Medicare payer requirements, as applicable. In the case of services not specified as inpatient-only, they are appropriately provided as inpatient services in accordance with the 2-midnight benchmark. Estimated LOS (days): 3 days is the estimated time the patient will need to remain in the hospital, assuming treatment plan goals are met and no additional complications. Post-Hospital Plan: Not yet determined Pallavi Arriaga Dec 02, 2016 23:39 Delvis Bello MD Dec 03, 2016 07:47
[2016-12-03] VITALS (7 sets, daily range): BP systolic 109–164; BP diastolic 53–89; PULSE 92–110; RESP 16–20; TEMP 95.5–97.8; O2SAT 93–100
[2016-12-03] MEDS: MORPHINE SULFATE 4 MG/ML INJ IV PUSH PRN ×2 (05:17→09:09)
[2016-12-03] MEDS ORDERED: INSULIN ASPART SUPPLEMENTAL SCALE SQ SCH (07:00)
[2016-12-03 07:19] LABS: AUTOMATED NEUTROPHIL # 5.5 TH/MM3 (1.8-7.7); BASOPHIL % 0.3 % (0.0-2.0); EOSINOPHIL # 0.1 TH/MM3 (0-0.4); EOSINOPHIL % 1.1 % (0.0-4.0); HEMO FLAGS DIFF FINAL; LYMPHOCYTE # 0.8 TH/MM3 (1.0-4.8); MEAN CELL VOLUME 88.7 FL (80.0-100.0); MEAN CORPUSCULAR HEMOGLOBIN 29.5 PG (27.0-34.0); MEAN CORPUSCULAR HGB CONC 33.2 % (32.0-36.0); MONO % 9.4 % (0.0-8.0); NEUT % 78.2 % (16.0-70.0); PLATELET COUNT 248 TH/MM3 (150-450); RED BLOOD COUNT 2.82 MIL/MM3 (4.00-5.30); RED CELL DISTRIBUTION WIDTH 16.8 % (11.6-17.2); WHITE BLOOD COUNT 7.1 TH/MM3 (4.0-11.0)
[2016-12-03 07:53] LABS: BICARBONATE 27.6 MEQ/L (21.0-32.0); POTASSIUM 4.7 MEQ/L (3.5-5.1)
[2016-12-03] MEDS: PHENYTOIN SODIUM 100 MG CAP PO SCH ×2 (09:03→21:29)
[2016-12-03] MEDS: ATORVASTATIN 80 MG TAB PO SCH (09:04)
[2016-12-03] MEDS: FLUoxetine HCL 10 MG CAP PO SCH (09:04)
[2016-12-03] MEDS: levETIRAcetam 500 MG TAB PO SCH ×2 (09:04→21:29)
[2016-12-03] MEDS: cloNIDine HCL 0.1 MG TAB PO SCH (09:08)
[2016-12-03] MEDS: SODIUM CHLORIDE 0.9% FLUSH 10 ML FLUSH IV FLUSH SCH ×2 (09:09→21:34)
[2016-12-03] MEDS ORDERED: ePHEDrine/NS 25 MG/5 ML SYR IV ONE (12:00)
[2016-12-03] MEDS ORDERED: ONDANSETRON HCL 4 MG/2 ML VIAL IV PUSH ONE (12:00)
[2016-12-03] MEDS ORDERED: PHENYLEPH/NS 1000 MCG/10 ML SYR IV ONE (12:00)
[2016-12-03] MEDS ORDERED: SODIUM CHLORIDE 0.9% INJ 250 ML IV ONE (12:00)
[2016-12-03] MEDS ORDERED: PROPOFOL 200 MG/20 ML AMP IV ONE (12:00)
[2016-12-03] MEDS ORDERED: LACTATED RINGER'S 1000 ML INJ 1,000 ML IV ONE (12:00)
--- NOTE | 2016-12-03 12:28 | HHI.PR ---
Subjective Remarks In bed. No n/v/d/c. Her BS is noted elevated , plan for surgery.Discussed with the nurse will give 7U insulin Patient has no pain at this time. Awaiting for surgery Objective Vitals Vital Signs Date Time Temp Pulse Resp B/P Pulse Ox O2 Delivery O2 Flow Rate FiO2 12/03/16 11:41 95.5 100 16 144/76 93 12/03/16 09:37 18 12/03/16 09:00 99 164/89 99 12/03/16 07:42 97.2 101 16 109/53 93 12/03/16 04:00 97.8 110 17 144/84 96 12/02/16 23:00 96.9 103 16 185/97 98 12/02/16 22:03 92 12/02/16 17:38 98.8 100 18 114/63 96 I/O 12/02/16 12/02/16 12/02/16 12/03/16 12/03/16 12/03/16 07:00 15:00 23:00 07:00 15:00 23:00 Intake Total 480 ml Balance 480 ml Intake Oral 480 ml # Voids 1 # Bowel Movements 0 Result Diagram: 12/03/16 0640 12/03/16 0640 Imaging Last Impressions Tibia/Fibula X-Ray 12/02/16 0000 Signed Impressions: Service Date/Time: November 19:26 - CONCLUSION: Postreduction exam. Javier Marino MD Ankle X-Ray 12/02/16 0000 Signed Impressions: Service Date/Time: November 18:16 - CONCLUSION: 1. The ankle mortise is intact. 2. Distal tibial and fibular fractures again noted. Please see right leg report for further details. Javier Marino MD Objective Remarks GENERAL: This is a well-nourished, well-developed patient, in no apparent distress. SKIN: skin tear LLE HEAD: Atraumatic. Normocephalic. No temporal or scalp tenderness. EYES: Pupils equal round and reactive. Extraocular motions intact. No scleral icterus. No injection or drainage. CARDIOVASCULAR: Regular rate and rhythm without murmurs, gallops, or rubs. RESPIRATORY: Clear to auscultation. Breath sounds equal bilaterally. No wheezes , rales, or rhonchi. GASTROINTESTINAL: Abdomen soft, non-tender, nondistended. No guarding. MUSCULOSKELETAL: Splint RLE. NEUROLOGICAL: Awake and alert. RUE hand contracted. Motor and sensory grossly within normal limits. 4-5 out of 5 muscle strength in all muscle groups. Normal speech. 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 Patient was walking down stairs leaving her father's house when she slipped and fell. Now with tibial and fibular fracture Mechanical Fall Tibial/fibular fracture Tibial/fibular X ray reviewed by me and reveals oblique comminuted oblique fracture of the distal tibia. Oblique fractures of the proximal and distal fibula S/P closed reduction in ER with splint placement Consult orthopedic surgery NPO plan for surgery Morphine IV as needed for pain DM with frequent admissions for DKA accu checks with SSI coverage . BS note [id number]. Give 7U insulin discussed with the nurse. Dorinaen tis NPO at tis time as plan for surgery . Patient can go for surgery HTN- chronic home medication clonidine 0.1mg by mouth restarted Seizure disorder- chronic home medication Dilantin restarted DVT prophylaxis per orthopedic surgery Discussed with patient, nurse Lelo Price MD Dec 03, 2016 12:28
[2016-12-03] MEDS ORDERED: DEXAMETHASONE SOD PHOS 4 MG/ML VIAL ONE (13:41)
[2016-12-03] MEDS ORDERED: MIDAZOLAM HCL 2 MG/2 ML VIAL ONE (13:41)
[2016-12-03] MEDS ORDERED: ACETAMINOPHEN 1000 MG/100 ML VIAL IV ONE (13:41)
[2016-12-03] MEDS ORDERED: FAMOTIDINE 20 MG/2 ML VIAL ONE (13:42)
[2016-12-03] MEDS ORDERED: VANCOMYCIN HCL 1000 MG VIAL ONE (14:01)
[2016-12-03] MEDS ORDERED: CLINDAMYCIN PHOS 600 MG/4 ML VIAL ONE (14:01)
[2016-12-03] MEDS ORDERED: GENTAMICIN SULFATE 80 MG/2 ML VIAL ONE (14:01)
[2016-12-03] MEDS ORDERED: PERC5TAB12 PO (15:53)
[2016-12-03] MEDS ORDERED: LACTULOSE SYRUP 20 GM/30 ML CUP PO PRN (16:00)
[2016-12-03] MEDS ORDERED: SODIUM CHLORIDE 0.9% FLUSH 10 ML FLUSH IV FLUSH PRN (16:00)
[2016-12-03] MEDS ORDERED: MISCELLANEOUS NURSING INFORMATION XX PRN (16:00)
[2016-12-03] MEDS ORDERED: SENNOSIDES 8.6 MG TAB PO PRN (16:00)
[2016-12-03] MEDS ORDERED: ZOLPIDEM TARTRATE 5 MG TAB PO PRN (16:00)
[2016-12-03] MEDS ORDERED: MAGNESIUM HYDROXIDE SUSP 30 ML CUP PO PRN (16:00)
[2016-12-03] MEDS ORDERED: BISACODYL 10 MG SUPP RECTAL PRN (16:00)
[2016-12-03] MEDS ORDERED: Post-op Orders (for Pharmacy) MISC XX ONE (16:00)
[2016-12-03] MEDS ORDERED: fentaNYL CITRATE 250 MCG/5 ML AMP ONE (16:12)
--- NOTE | 2016-12-03 16:12 | PD.CONS ---
cc: Matt Umanozr Jr., MD HPI Service Orthopedic Surgeons Consult Requested By Primary Care Physician Andrea Cardoso Admission Diagnosis closed right tibia/fibular fracture Diagnoses: (1) Fibula fracture (2) Tibia fracture Chief Complaint: right closed tibia fracture History of Present Illness 46 year old female patient with a past medical history which includes DM with multiple past admissions for DKA, HTN, asthma, CKD stage III, CVA 2013 with residual deficit RUE, Seizure disorder and Lupus. Patient was walking down stairs leaving her father's house when she slipped and fell. pain 8/10, associated with right leg pain, deformity and inability to bear weight. denies any head injury. pain is exacerabted by wb, and ankle ROM. pain relieved at rest and iv meds in the hospital. Pain was and 8 out of 10 at it worst now pain has improved after closed reduction and splint placement in ER. She denies any other injuries. Patient did not lose consciousness and did not hit her head. Patient denies dizziness, feeling light headed, short of breath, chest pain, N/V/D, black tarry stools or red blood in stools. ROS - General Review of Systems Except as stated in HPI: all other systems reviewed are Neg PFSH Past Family Social History Past Medical History 1. Bronchial asthma. 2. Lupus. 3. Hypertension. 4. Diabetes mellitus. 5. Seizure disorder. 6. CVA 2013 with residual deficit RUE 7. CKD stage III Past Surgical History 1. . 2. Cholecystectomy. 3. Partial Hysterectomy. 4. Left foot surgery. Reported Medications Lantus Inj (Insulin Glargine) 1,000 Unit/10 Ml Vial 10 Units SQ HS Novolog Inj (Insulin Aspart) 1,000 Unit/10 Ml Vial Unknown Dose SQ ACHS Max dose at bedtime ( ) units; sugars less than 70,(0) units; sugars 150-199,(2) units; sugars 200-249,(4) units; sugars 250-299,(7) units; sugars 300-349,(10) units; sugars greater than 349,(12)units Dilantin (Phenytoin Extended) 100 Mg Cap 100 Mg PO BID Clonidine (Clonidine HCl) 0.1 Mg Tab 0.1 Mg PO DAILY Fluoxetine (Fluoxetine HCl) 10 Mg Tab 10 Mg PO DAILY Levetiracetam 500 Mg Tab 500 Mg PO BID Atorvastatin (Atorvastatin Calcium) 80 Mg Tab 80 Mg PO DAILY Allergies: Coded Allergies: Aspirin (Verified Allergy, Severe, 12/02/16) RASH Levemir (Verified Allergy, Severe, Sweats, funny feeling, mood swings, daze, 12/02/16) Penicillin (Verified Allergy, Severe, 12/02/16) Sulfa (Verified Allergy, Severe, 12/02/16) RASH Banana (Verified Allergy, Intermediate, Hives, 12/02/16) Adhesives (Verified Allergy, Unknown, 12/02/16) Macrobid (Unverified Allergy, Unknown, 12/02/16) *MDRO Multi-Drug Resistant Organism (Unverified Adverse Reaction, Unknown , 12/02/16) MRSA 2013 MRSA PCR Screen POSITIVE on 01/22/16 & 11/09/16 Past Family Social History Past Medical History 1. Bronchial asthma. 2. Lupus. 3. Hypertension. 4. Diabetes mellitus. 5. Seizure disorder. 6. CVA 2013 with residual deficit RUE 7. CKD stage III Past Surgical History 1. . 2. Cholecystectomy. 3. Partial Hysterectomy. 4. Left foot surgery. Allergies: Coded Allergies: Aspirin (Verified Allergy, Severe, 12/02/16) RASH Penicillin (Verified Allergy, Severe, 12/02/16) Sulfa (Verified Allergy, Severe, 12/02/16) RASH Banana (Verified Allergy, Intermediate, Hives, 12/02/16) Adhesives (Verified Allergy, Unknown, 12/02/16) Macrobid (Unverified Allergy, Unknown, 12/02/16) Levemir (Verified Adverse Reaction, Severe, Sweats, funny feeling, mood swings, daze, 12/04/16) *MDRO Multi-Drug Resistant Organism (Unverified Adverse Reaction, Unknown , 12/02/16) MRSA 2013 MRSA PCR Screen POSITIVE on 01/22/16 & 11/09/16 Active Ordered Medications Current Medications Medications (Trade) Dose Ordered Sig/Marin Route Start Time Stop Time Status Last Admin (NS Flush) 2 ml UNSCH PRN IV FLUSH 12/02/16 20:00 (NS Flush) 2 ml BID IV FLUSH 12/02/16 21:00 12/03/16 09:09 (Narcan Inj) 0.4 mg UNSCH PRN IV 12/02/16 20:00 (Morphine Inj) 2 mg Q3H PRN IV PUSH 12/02/16 20:00 12/03/16 09:09 (D50w (Vial) Inj) 50 ml UNSCH PRN IV 12/02/16 20:15 (Glucagon Inj) 1 mg UNSCH PRN OTHER 12/02/16 20:15 (Lipitor) 80 mg DAILY PO 12/03/16 09:00 12/03/16 09:04 (Catapres) 0.1 mg DAILY PO 12/03/16 09:00 12/03/16 09:08 (PROzac) 10 mg DAILY PO 12/03/16 09:00 12/03/16 09:04 (Keppra) 500 mg BID PO 12/02/16 21:00 12/03/16 09:04 (Dilantin) 100 mg BID PO 12/02/16 21:00 12/03/16 09:03 (D50w (Vial) Inj) 50 ml UNSCH PRN IV 12/02/16 21:15 Glucagon 1 mg 1 mg UNSCH PRN OTHER 12/02/16 21:15 Lactated Ringer's 1,000 ml @ 30 mls/hr Q24H PRN IV 12/02/16 21:45 12/05/16 21:44 (NS 500 ml Inj) 500 ml @ 30 mls/hr [id number] PRN IV 12/02/16 21:45 12/05/16 21:44 (NS Flush) 2 ml UNSCH PRN IV FLUSH 12/03/16 16:00 UNV Sodium Chloride 2 ml 2 ml BID IV FLUSH 12/03/16 21:00 UNV Cefazolin Sodium 1000 mg/Sodium Chloride 100 ml @ 200 mls/hr Q6H IV 12/03/16 16:00 12/04/16 04:29 UNV (Vancomycin Inj/ NS 250 ml Inj) 250 ml @ 250 mls/hr Q12H IV 12/03/16 16:00 12/04/16 04:59 UNV (Post-op Orders (for Pharmacy)) STAT ONCE XX 12/03/16 16:00 12/03/16 16:01 UNV (Lovenox Inj) 30 mg Q12H SQ 12/03/16 16:00 UNV Miscellaneous Information UNSCH PRN XX 12/03/16 16:00 UNV (Morphine Inj) 5 mg Q3H PRN IV PUSH 12/03/16 16:00 UNV (Percocet 5-325 Mg) 1 tab Q4H PRN PO 12/03/16 16:00 UNV (Percocet 5-325 Mg) 2 tab Q4H PRN PO 12/03/16 16:00 UNV (Toradol Inj) 15 mg Q6H IVP 12/03/16 16:00 12/05/16 10:01 UNV (Phenergan) 25 mg Q4H PRN PO 12/03/16 16:00 UNV (Zofran Inj) 4 mg Q6H PRN IVP 12/03/16 16:00 UNV (Ambien) 5 mg HS PRN PO 12/03/16 16:00 UNV (Rivka-Colace) 1 tab BID PO 12/03/16 21:00 UNV (Milk Of Magnesia Liq) 30 ml Q12H PRN PO 12/03/16 16:00 UNV (Senokot) 17.2 mg Q12H PRN PO 12/03/16 16:00 UNV (Dulcolax Supp) 10 mg DAILY PRN RECTAL 12/03/16 16:00 UNV Reported Meds & Active Scripts Active Percocet (Oxycodone-Acetaminophen) 5-325 mg Tab 1 Tab PO Q4H PRN Lantus Inj (Insulin Glargine) 1,000 Unit/10 Ml Vial 10 Units SQ HS Reported Novolog Inj (Insulin Aspart) 1,000 Unit/10 Ml Vial Unknown Dose SQ ACHS Max dose at bedtime ( ) units; sugars less than 70,(0) units; sugars 150-199,(2) units; sugars 200-249,(4) units; sugars 250-299,(7) units; sugars 300-349,(10) units; sugars greater than 349,(12)units Dilantin (Phenytoin Extended) 100 Mg Cap 100 Mg PO BID Clonidine (Clonidine HCl) 0.1 Mg Tab 0.1 Mg PO DAILY Fluoxetine (Fluoxetine HCl) 10 Mg Tab 10 Mg PO DAILY Levetiracetam 500 Mg Tab 500 Mg PO BID Atorvastatin (Atorvastatin Calcium) 80 Mg Tab 80 Mg PO DAILY Family History HTN and DM runs in her family Uncle had colon cancer Social History Occasional ETOH use Denies tobacco use or illicit drug use Physical Exam Vital Signs Vital Signs Date Time Temp Pulse Resp B/P Pulse Ox O2 Delivery O2 Flow Rate FiO2 12/03/16 11:41 95.5 100 16 144/76 93 12/03/16 09:37 18 12/03/16 09:00 99 164/89 99 12/03/16 07:42 97.2 101 16 109/53 93 12/03/16 04:00 97.8 110 17 144/84 96 12/02/16 23:00 96.9 103 16 185/97 98 12/02/16 22:03 92 12/02/16 17:38 98.8 100 18 114/63 96 Physical Exam Alert awake and oriented -3. No acute distress. Neck: no tenderness to palpation along the posterior cervical region. Abdomen: Soft, nontender, nondistended. Pulmonary: Normal respiratory effort. Bilatera upper extremity exam: No deformities. Intact sensation distally in median, ulnar, and radial nerve. Intact motor in interosseous, posterior interosseous, and ulnar nerve. 2+ radial artery pulses. Good cap refill. Right lower extremity: deformities. splint in place, swelling in foot and ankle , TTP distal tibia. good cap refill. Supple compartments. No pain with passive stretch of the ankle and toes. Negative Homans sign Left lower extremity: No deformities. Full range of motion without crepitus or pain of the hip and knee and the ankle. Laboratory Laboratory Tests Test 12/02/16 12/03/16 18:55 06:40 White Blood Count 8.1 7.1 Red Blood Count 3.32 2.82 Hemoglobin 9.7 8.3 Hematocrit 28.9 25.0 Mean Corpuscular Volume 87.2 88.7 Mean Corpuscular Hemoglobin 29.3 29.5 Mean Corpuscular Hemoglobin 33.6 33.2 Concent Red Cell Distribution Width 15.5 16.8 Platelet Count 327 248 Mean Platelet Volume 9.3 10.1 Neutrophils (%) (Auto) 70.9 78.2 Lymphocytes (%) (Auto) 17.3 11.0 Monocytes (%) (Auto) 9.5 9.4 Eosinophils (%) (Auto) 1.8 1.1 Basophils (%) (Auto) 0.5 0.3 Neutrophils # (Auto) 5.7 5.5 Lymphocytes # (Auto) 1.4 0.8 Monocytes # (Auto) 0.8 0.7 Eosinophils # (Auto) 0.1 0.1 Basophils # (Auto) 0.0 0.0 CBC Comment DIFF FINAL DIFF FINAL Differential Comment Prothrombin Time 10.7 Prothromb Time International 1.0 Ratio Activated Partial 24.2 Thromboplast Time Sodium Level 146 146 Potassium Level 4.9 4.7 Chloride Level 109 109 Carbon Dioxide Level 29.8 27.6 Anion Gap 7 9 Blood Urea Nitrogen 10 11 Creatinine 1.37 1.36 Estimat Glomerular Filtration 50 50 Rate Random Glucose 200 308 Calcium Level 8.7 8.6 Result Diagram: 12/03/16 0640 12/03/16 0640 Imaging 3v right tibia reveal distal tibia segmental fracture. Last 72 hours Impressions Chest X-Ray 12/04/16 0000 Signed Impressions: Service Date/Time: Sunday, December 04, 2016 12:28 - CONCLUSION: There is platelike atelectasis in the left lower lung. Otherwise the rest of the lungs are grossly clear. Chaparro Reece MD Assessment & Plan Assessment and Plan 46-year-old female with a complicated past medical history sustained a fall and a closed right tibial shaft fracture. She is neurovascular intact. I recommend intramedullary yuri fixation. I discussed my treatment plans with the patient, as well as risks, benefits and alternatives of surgical Intervention versus nonoperative treatment. In this case, the risks of operative intervention involves bleeding, infection, risks of damage to neurovascular structures, the risk of needing further surgery, posttraumatic arthritis and the risks involved with complication from anesthesia. We will proceed with the above procedure. The patient accepts these risks; understands and agrees with my recommendations. I also discussed my proposed postoperative care and follow- up plan. All questions were answered. Plan for OR Matt Umanzor Jr., MD Dec 03, 2016 16:12
--- NOTE | 2016-12-03 16:16 | PD.OP ---
cc: Matt Umanzor Jr., MD Operative Report Date of Surgery: Dec 03, 2016 Preoperative Diagnosis: Right closed distal tibia shaft comminuted fracture Postoperative Diagnosis: Same Procedure: Right tibia intramedullary yuri fixation Anesthesia: Gen. Surgeon: Matt Umanzor Manager Restaurant(s): Dillan Eng PA-C The surgical procedure was assisted by my physician middle school assistant principal. My physician middle school assistant principal presence was necessary throughout this case for the manipulation and positioning of the surgical extremity. My physician middle school assistant principal was assisting me throughout the duration of this procedure. The skill set of a physician middle school assistant principal was medically necessary to complete this procedure. During the surgical case, the middle school technology teacher was working at the back table and the physician middle school assistant principal was directly assisting me. Resident Surgeon: None Operation and Findings: The patient received intravenous vanc. After the appropriate anesthesia was administered, the patient was prepped and draped in the supine position in the usual sterile fashion. Skin assessment showed good soft tissue, soft compartments. There was mild swelling noted to the leg. We made incision proximal to the patella. We carefully dissected down to the quadriceps tendon. An in-line longitudinal split to the quadriceps tendon was completed. The capsule of the knee was entered. We placed the smooth trocar within the knee joint down to the proximal tibia, protecting the patella and trochlea during the case. We then reduced the tibia fracture manually under fluoroscopic imaging. A ball- tipped guidewire was placed into the tibial shaft, passing the fracture site. This was placed down to the distal physeal line of the tibia. We then sequentially reamed the tibia to 1 mm larger than the implanted tibial nail. We obtained good cortical chatter. We measured the appropriate length for the tibial nail. We then passed the tibial nail into the medullary canal of the tibia. The nail was secured proximally with 2 screw(s), using the associated jig as a guide. We used the perfect [place] technique to visualize the distal tibial screws. The nail was secured distally with 3 screw(s). We had good reduction of the fracture with acceptable alignment in the AP and lateral planes and to rotation. We thoroughly irrigated the incisions including a lavage of the arthrotomy site proximally. The quadriceps split was closed with a #1 Vicryl. The remaining incisions were closed with #2-0 Vicryl, followed by rafa. Sterile dressing was applied. IMPLANTS USED Synthes tibal nail, size: 345*10mm POSTP-OP PLAN OF ACTIVITY Antibiotics: ancomycin Antiocoagulation: Lovenox Weight bearing status: NWB Dressing: Change daily, by RN starting postop day 2 Dispo: ok to dc per ortho when ok with primary Matt Umanzor Jr., MD Dec 03, 2016 16:16
--- NOTE | 2016-12-03 17:37 | RADRPT ---
EXAM DATE/TIME: 12/03/2016 15:09 [facility] COMPARISON: FLUOROSCOPY PORTABLE UP TO 1HR, December 03, 2016, 0:00. INDICATIONS : Surgical repair. MEDICAL HISTORY : None. SURGICAL HISTORY : None. ENCOUNTER: Initial ACUITY: 1 day PAIN SCORE: Non-responsive. LOCATION: Right lower leg. FINDINGS: The examination demonstrates an intramedullary yuri across the patient's tibial fracture. The alignmen t is excellent. Note is made of a minimally displaced fibular fracture as well. CONCLUSION: Excellent alignment of the patient's tibial fracture post rodding. Patient has a minimally displaced fibular fracture as well. Umesh Farah MD on December 03, 2016 at 17:34 Board Certified Radiologist. This report was verified electronically.
[2016-12-03] MEDS: MORPHINE SULFATE 8 MG/ML INJ IV PUSH PRN (18:07)
[2016-12-03] MEDS: KETOROLAC TROMETHAMINE 30 MG/ML (IVP) VIAL IVP SCH (18:21)
[2016-12-03] MEDS ORDERED: DO NOT ADM ANY ANTICOAGULANT DRUGS PRN (18:45)
[2016-12-03] MEDS: oxyCODONE/ACETAMINOPHEN 5 MG/325 MG TAB PO PRN (21:29)
[2016-12-03] MEDS: DOCUSATE SODIUM 50 MG/SENNA 8.6 MG TAB PO SCH (21:35)
[2016-12-03] MEDS ORDERED: GLUCAGON 1 MG/ML VIAL OTHER PRN (21:45)
[2016-12-03] MEDS ORDERED: DEXTROSE 50% IN WATER 50 ML VIAL(D50) IV PUSH PRN (21:45)
[2016-12-03] MEDS: LOW DOSE INSULIN NOVOLOG SUPPLEMENTAL SCALE SQ SCH (22:07)
[2016-12-04] VITALS (16 sets, daily range): BP systolic 100–150; BP diastolic 54–87; PULSE 91–102; RESP 12–20; TEMP 96.3–97.8; O2SAT 84–100
[2016-12-04] MEDS: KETOROLAC TROMETHAMINE 30 MG/ML (IVP) VIAL IVP SCH ×5 (00:16→23:38)
[2016-12-04] MEDS: VANCOMYCIN INJ 1,000 MG in SODIUM CHLOR 0.9% 250 ML INJ 250 ML IV SCH ×2 (02:35→17:10)
[2016-12-04] MEDS: ENOXAPARIN SODIUM 30 MG/0.3 ML SYRINGE SQ SCH ×2 (04:06→17:11)
[2016-12-04] MEDS: oxyCODONE/ACETAMINOPHEN 5 MG/325 MG TAB PO PRN ×2 (04:06→09:00)
[2016-12-04] MEDS: LOW DOSE INSULIN NOVOLOG SUPPLEMENTAL SCALE SQ SCH ×2 (06:34→10:33)
[2016-12-04] MEDS ORDERED: SODIUM CHLOR 0.9% 1000 ML INJ 1,000 ML IV SCH ×2 (07:00→10:00)
[2016-12-04] MEDS ORDERED: INSULIN HUMAN REGULAR 1,000 UNITS/10 ML VIAL IV PUSH ONE (07:15)
--- NOTE | 2016-12-04 07:19 | HHI.PR ---
Blank section for building Sheyla/Rapid response called because patient became lethargic with vital signs pulse oxygen 84% on room air, BP 121/55, HR 102, blood glucose 585 2L nasal canula applied pulse oxygen christiano to 100% Novolin R 10 units IV, stat BMP and stat ABG ordered and pending Discussed with sheyla RN, floor RN and Pallavi Sanches Dec 04, 2016 07:19
[2016-12-04 07:24] LABS: BLOOD GAS BASE EXCESS -4.4 mmol/L (-2-2); BLOOD GAS CARBOXYHEMOGLOBIN 2.2 % (0-4); BLOOD GAS HCO3 22 mmol/L (22-26); BLOOD GAS METHEMOGLOBIN 1.4 % (0-2); BLOOD GAS O2 HGB SATURATION 93 % (90-100); BLOOD GAS OXYGEN CONTENT 10.4 Vol % (12.0-20.0); BLOOD GAS PCO2 55 mmHg (38-42); BLOOD GAS PO2 95 mmHg (61-120); BLOOD GAS TOTAL HGB 7.8 G/DL (12.0-16.0); CRITICAL VALUE YES; LITER FLOW 2 L/M; OXYGEN DEVICE NASAL CANNULA; TEMP CORR TO 98.6
[2016-12-04 07:25] LABS: DRAW SITE RT RADIAL; NUMBER OF ARTERIAL PUNCTURES 1; STAT YES; ULNAR PULSE PRESENT
[2016-12-04] MEDS ORDERED: SODIUM CHLORID 0.9% 500 ML INJ 500 ML IV ONE (07:30)
--- NOTE | 2016-12-04 07:41 | HHI.PR ---
Subjective Remarks Patient noted lethargic. Not responding. Halicat was called. Patient BS 570s , receives 10U. Stat ABG reviewed and discussed with Dr Laguerre applications support engineer. Patient likely sensitive to narcotic. She did receive 10 /325 percocet in the morning. Patient is however starting to become more alert. She is not able to remember what happened. She is alert and oriented x3 at this time. No n/v/d/c. No pain. No chest pain or sob. No fever or chills. No diaphoresis. Objective Vitals Vital Signs Date Time Temp Pulse Resp B/P Pulse Ox O2 Delivery O2 Flow Rate FiO2 12/04/16 06:44 100 2.00 12/04/16 04:00 97.1 96 18 150/87 97 12/04/16 00:00 96.3 96 20 117/57 96 12/03/16 21:10 98 21 12/03/16 20:00 96.3 92 20 112/58 93 12/03/16 18:27 16 12/03/16 17:25 96.2 99 17 142/74 100 12/03/16 16:45 97.6 93 16 122/71 98 Nasal Cannula 2 12/03/16 16:30 94 15 139/78 97 Nasal Cannula 2 12/03/16 16:15 97 15 154/88 96 Nasal Cannula 2 12/03/16 16:00 98 15 139/71 96 Nasal Cannula 2 12/03/16 15:55 97.8 102 16 154/76 99 Nasal Cannula 3 12/03/16 11:41 95.5 100 16 144/76 93 12/03/16 09:37 18 12/03/16 09:00 99 164/89 99 12/03/16 07:42 97.2 101 16 109/53 93 I/O 12/03/16 12/03/16 12/03/16 12/04/16 12/04/16 12/04/16 07:00 15:00 23:00 07:00 15:00 23:00 Intake Total 480 ml 0 ml 2330 ml 400 ml Output Total 1 ml Balance 480 ml 0 ml 2329 ml 400 ml Intake Oral 480 ml 0 ml 780 ml 400 ml IV Total 50 ml Other 1500 ml Output Urine Total 1 ml # Voids 1 1 0 0 # Bowel Movements 0 0 0 0 Result Diagram: 12/03/16 0640 12/03/16 0640 Imaging Last Impressions Tibia/Fibula X-Ray 12/03/16 0000 Signed Impressions: Service Date/Time: Saturday, December 03, 2016 15:09 - CONCLUSION: Excellent alignment of the patient's tibial fracture post rodding. Patient has a minimally displaced fibular fracture as well. Umesh Farah MD Ankle X-Ray 12/02/16 0000 Signed Impressions: Service Date/Time: November 18:16 - CONCLUSION: 1. The ankle mortise is intact. 2. Distal tibial and fibular fractures again noted. Please see right leg report for further details. Javier Marino MD Objective Remarks GENERAL: This is a 46 patient, lethargic however improving, takes time to answer questions, but she is alert and oriented x 3 now. SKIN: skin tear LLE HEAD: Atraumatic. Normocephalic. No temporal or scalp tenderness. EYES: Pupils equal round and reactive. Extraocular motions intact. No scleral icterus. No injection or drainage. CARDIOVASCULAR: Regular rate and rhythm without murmurs, gallops, or rubs. RESPIRATORY: Clear to auscultation. Breath sounds equal bilaterally. No wheezes , rales, or rhonchi. GASTROINTESTINAL: Abdomen soft, non-tender, nondistended. No guarding. MUSCULOSKELETAL: RLE wrapped, c/d/i. NEUROLOGICAL: Lethargic, however improving. RUE hand contracted. Motor and sensory grossly within normal limits. 4-5 out of 5 muscle strength in all muscle groups. Slow speech, takes time to answer questions. 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 Patient was walking down stairs leaving her father's house when she slipped and fell. Now with tibial and fibular fracture Mechanical Fall Tibial/fibular fracture Tibial/fibular X ray reviewed by me and reveals oblique comminuted oblique fracture of the distal tibia. Oblique fractures of the proximal and distal fibula S/P closed reduction in ER with splint placement Consult orthopedic surgery S/p surgery Morphine IV as needed for pain Brittle DM with frequent admissions for DKA accu checks with SSI coverage . 12/03/16 BS note 360s. Give 7U insulin discussed with the nurse. Jeremiah olson NPO at tis time as plan for surgery . Patient went for surgery 12/03 patient lethargic, BS 570s. Acute respiratory failure Acute Metabolic encephalopathy with respiratory acidosis REGAN on CKD worsening Brittele diabetes melitus Stat abg pH 7.22, pco2 of 55, pO2 95 . Previewed and discussed findings with applications support engineer Dr Laguerre. Patient with severe respiratory acidosis likely 2/2 narcotic use/ patient is sensitive to narcotics). Criminalist aware of patient and wants to be notified of repeat ABG, will see patient if worsening. Repeat ABG is not improving. Place patient on BiPAP and repeat ABG, wean off BiPAP. Hold sedation medications. Discussed with applications support engineer , will consult applications support engineer for close monitoring. K noted at 5.6/ Low Ca at 7.2 awaiting protein corrected Ca. Creatinine is worsening 2.37, BUN 19 . AG is 7. Give one bolus NS. Start NS at 100 cc /hr . Monitor urine OP closely. Patient is transferred to ICU will monitor closely. HTN- chronic home medication clonidine 0.1mg by mouth restarted Seizure disorder- chronic home medication Dilantin restarted DVT prophylaxis per orthopedic surgery Discussed with patient, ICU nurse, Criminalist Dr Laguerre Transfer to ICU, placed on BiPAP, consult applications support engineer Critical time 40 minutes. Lelo Price MD Dec 04, 2016 07:41
[2016-12-04] MEDS ORDERED: CHLORHEXIDINE GLUCONATE 2 % 1 PACK (2 CLOTHS)(extra cloths) TOPICAL PRN (08:30)
[2016-12-04] MEDS: SODIUM CHLORIDE 0.9% FLUSH 10 ML FLUSH IV FLUSH SCH ×2 (08:32→19:33)
[2016-12-04] MEDS: cloNIDine HCL 0.1 MG TAB PO SCH (08:38)
[2016-12-04] MEDS: PHENYTOIN SODIUM 100 MG CAP PO SCH ×2 (08:45→19:33)
[2016-12-04] MEDS: DOCUSATE SODIUM 50 MG/SENNA 8.6 MG TAB PO SCH ×2 (08:45→19:33)
[2016-12-04] MEDS: ATORVASTATIN 80 MG TAB PO SCH (08:46)
[2016-12-04] MEDS: levETIRAcetam 500 MG TAB PO SCH ×2 (08:46→19:34)
[2016-12-04] MEDS: FLUoxetine HCL 10 MG CAP PO SCH (09:01)
--- NOTE | 2016-12-04 09:52 | PD.ORT.PN ---
Subjective Post Op Day #: 1 Subjective Remarks Patient is resting in bed in NAD. Patient was Helicated from [address] [place] [address] to [facility] for blood sugars in the 500s. Patient c/o minimal pain to the right lower extremity. Objective Vitals Vital Signs Date Time Temp Pulse Resp B/P Pulse Ox O2 Delivery O2 Flow Rate FiO2 12/04/16 08:31 93 Nasal Cannula 2.00 12/04/16 08:00 93 12/04/16 08:00 97.5 100 12 103/54 100 12/04/16 06:46 16 98 12/04/16 06:45 14 90 12/04/16 06:45 90 Nasal Cannula 2.00 12/04/16 06:44 102 14 121/55 84 12/04/16 06:44 100 2.00 12/04/16 04:00 97.1 96 18 150/87 97 12/04/16 00:00 96.3 96 20 117/57 96 12/03/16 21:10 98 21 12/03/16 20:00 96.3 92 20 112/58 93 12/03/16 18:27 16 12/03/16 17:25 96.2 99 17 142/74 100 12/03/16 16:45 97.6 93 16 122/71 98 Nasal Cannula 2 12/03/16 16:30 94 15 139/78 97 Nasal Cannula 2 12/03/16 16:15 97 15 154/88 96 Nasal Cannula 2 12/03/16 16:00 98 15 139/71 96 Nasal Cannula 2 12/03/16 15:55 97.8 102 16 154/76 99 Nasal Cannula 3 12/03/16 11:41 95.5 100 16 144/76 93 I/O 12/03/16 12/03/16 12/03/16 12/04/16 12/04/16 12/04/16 07:00 15:00 23:00 07:00 15:00 23:00 Intake Total 480 ml 0 ml 2330 ml 400 ml Output Total 1 ml Balance 480 ml 0 ml 2329 ml 400 ml Intake Oral 480 ml 0 ml 780 ml 400 ml IV Total 50 ml Other 1500 ml Output Urine Total 1 ml # Voids 1 1 0 0 # Bowel Movements 0 0 0 0 Result Diagram: 12/03/1640 12/04/16 0640 Procedures Right tibial shaft fracture with ORIF Objective Remarks Patient's dressing is C/D/I. Minimal swelling to the right foot and lower extremity. Patient has good sensation to light touch about the right foot and toes. EHL/TA/G intact. 2+ pedal pulse. Calf is soft and nontender. Assessment & Plan Ortho Post Op Day #: 1 Problem List: Assessment and Plan POD #1: Right tibial shaft fracture with ORIF Antibiotics: ancomycin Antiocoagulation: Lovenox Weight bearing status: NWB Dressing: Change daily, by RN starting postop day 2 Dispo: ok to dc per ortho when ok with primary Umesh Rubio Dec 04, 2016 09:52
[2016-12-04 09:56] LABS: BICARBONATE 25.9 MEQ/L (21.0-32.0); POTASSIUM 5.6 MEQ/L (3.5-5.1)
[2016-12-04] MEDS ORDERED: SODIUM CHLOR 0.9% 1000 ML INJ 1,000 ML IV ONE ×2 (10:00→12:15)
[2016-12-04 10:12] LABS: CALCIUM-PROTEIN CORRECTED 8.3 MG/DL (8.5-10.1)
[2016-12-04] MEDS: CALCIUM CARBONATE 500 MG CHEWABLE TAB CHEW ONE ×2 (11:15→11:54)
[2016-12-04] MEDS: INSULIN DETEMIR 100 UNITS/ML VIAL SQ ONE ×2 (11:15→11:49)
[2016-12-04 11:44] LABS: BLOOD GAS BASE EXCESS -4.1 mmol/L (-2-2); BLOOD GAS CARBOXYHEMOGLOBIN 2.1 % (0-4); BLOOD GAS HCO3 22 mmol/L (22-26); BLOOD GAS METHEMOGLOBIN 1.1 % (0-2); BLOOD GAS O2 HGB SATURATION 96 % (90-100); BLOOD GAS OXYGEN CONTENT 9.7 Vol % (12.0-20.0); BLOOD GAS PCO2 50 mmHg (38-42); BLOOD GAS PO2 135 mmHg (61-120); BLOOD GAS TOTAL HGB 6.9 G/DL (12.0-16.0); TEMP CORR TO 98.6
[2016-12-04 11:45] LABS: CRITICAL VALUE YES; LITER FLOW 2 L/M; OXYGEN DEVICE NASAL CANNULA
[2016-12-04 11:46] LABS: DRAW SITE RT RADIAL; NUMBER OF ARTERIAL PUNCTURES 2; STAT YES; ULNAR PULSE PRESENT
[2016-12-04] MEDS ORDERED: GLUCAGON 1 MG/ML VIAL OTHER PRN (12:15)
[2016-12-04] MEDS ORDERED: DEXTROSE 50% IN WATER 50 ML VIAL(D50) IV PRN (12:15)
[2016-12-04] MEDS ORDERED: SODIUM POLYSTYRENE SULFONATE SUSP 15 GM/60 ML CUP PO ONE (12:15)
[2016-12-04] MEDS: SODIUM CHLOR 0.9% 1000 ML INJ 1,000 ML IV SCH ×2 (12:15→19:34)
[2016-12-04] MEDS ORDERED: RESP: ALBUTEROL 2.5 MG/IPRATROPIUM 0.5 MG NEB (PRN) NEB (12:15)
[2016-12-04] MEDS: INSULIN NovoLIN REGULAR SUPPLEMENTAL SCALE SQ SCH ×4 (13:00→23:35)
--- NOTE | 2016-12-04 13:07 | RADRPT ---
EXAM DATE/TIME: 12/04/2016 12:28 [facility] COMPARISON: CHEST SINGLE AP, November 23, 2016, 3:41. INDICATIONS : Shortness of breath. MEDICAL HISTORY : Hypertension. Renal failure, chronic. Diabetes mellitus type 1.Lupus SURGICAL HISTORY : Cholecystectomy. Hysterectomy. section. ENCOUNTER: Initial ACUITY: 1 day PAIN SCORE: 0/10 LOCATION: Bilateral chest FINDINGS: A single view of the chest demonstrates platelike atelectasis in the left lower lung. The right lung is grossly clear. No pleural effusions or pulmonary edema.. The cardiomediastinal contours are unrem arkable. Osseous structures are intact. No other significant changes compared to the prior study. CONCLUSION: There is platelike atelectasis in the left lower lung. Otherwise the rest of the lungs are grossly cl ear. Chaparro Reece MD on December 04, 2016 at 12:58 Board Certified Radiologist. This report was verified electronically.
--- NOTE | 2016-12-04 14:27 | MB ---
cc: SHIVANI WAYNE M.D. DATE OF CONSULTATION: 12/04/2016 DATE OF : 1970. HISTORY OF PRESENT ILLNESS: The patient is a 46-year-old female with past medical history of hypertension, diabetes mellitus, lupus seizure disorder, CVA in 2013 with residual deficit in the right upper extremity. She was admitted to [facility] under hospitalist service on December 02 status post fall and was found to have distal tibial fracture. She underwent yuri fixation of her tibial fracture on December 03. Her initial laboratory data showed mild acute kidney injury with creatinine level of 1.37 on December 02 and WBC of 8.1. She had a HELICAT was called earlier as the patient was found somewhat lethargic and initially was felt to be in DKA by the primary team. However, upon arrival to the ICU her ABG showed a pH of 7.23, CO2 55, pAO2 of 22. Also, pAO2 of 95, bicarb of 22 and saturation 93% and her laboratory data from today showed worsening renal failure with a creatinine level of 2.32 and hyperkalemia with potassium level 5.6. She was given morphine 2 mg IV push, at 9:00 in the morning yesterday and Percocet 2 tablets last night and 2 tablets this morning at 04:00 a.m. A repeat ABG from 11:35 showed a pH of 7.26 with a CO2 50, pAO2 135, bicarb 22 and sats of 96% on 2 liters nasal cannula. Due to her worsening renal function and mild respiratory acidosis and critical care medicine was consulted for critical care management. The patient is awake, alert on 2 liters oxygen with saturation of 93% and blood pressure of 103/54. She denies any chest pain, shortness of breath or any GI symptoms. PAST MEDICAL HISTORY: Past medical history significant for hypertension Diabetes, lupus bronchial asthma, seizure disorder, CVA 2013 PAST SURGICAL HISTORY Previous previous cholecystectomy. Previous left foot surgery. Previous partial hysterectomy and recent yuri fixation for right closed tib/fib fracture on December 03. ALLERGIES LEVEMIR INSULIN PENICILLIN SULFA ASPIRIN MEDICATIONS 1. Dilantin. 2. Clonidine 3. Fluoxetine 4. Keppra. 5. Atorvastatin 6. NovoLog Insulin 7. Lantus insulin. SOCIAL HISTORY Occasional drinker, nonsmoker, denies any illicit drug use. FAMILY HISTORY Hypertension, diabetes runs in the family, uncle had colon cancer. REVIEW OF SYSTEMS As per HPI. REVIEW OF SYSTEMS Rest of the system unremarkable. PHYSICAL EXAMINATION: IN GENERAL: Physical exam 46-year-old female lying in bed in no acute respiratory distress. VITAL SIGNS: Afebrile, pulse of 96, respiratory rate of 14, blood pressure 103/54, sats 93% on 2 liters oxygen. HEAD, EYES, EARS, NOSE, AND THROAT: Atraumatic, normocephalic pupil equal and reactive to accommodation, extraocular muscles intact. Conjunctivae pink. Nonicteric sclerae. Oral mucosa within normal. NECK: Supple. No JVD, adenopathy or thyromegaly. Trachea midline. CARDIOVASCULAR SYSTEM: Regular rate and rhythm. Normal S1-S2. No murmurs, rubs or gallops noted. LUNGS: Pulmonary exam bilateral equal entry. No rales or wheezing. ABDOMEN: Soft, nontender, no distension. Positive bowel sounds. EXTREMITIES: No cyanosis, Clubbing, or edema. NEUROLOGIC: No focal sensory deficit. LABORATORY DATA Sodium 140, 1005.6, chloride 107, CO2 25, BUN 19, creatinine 2.32, glucose 529, corrected calcium 8.3, WBC 7.1, hemoglobin 8.3, hematocrit 25, platelet count of 248. RADIOGRAPHY X-ray of her to tibia-fibula showed comminuted oblique fracture of the distal tibia and oblique fractures of the proximal and distal fibula IMPRESSION 1. Acute hypercapnic respiratory insufficiency. 2. Acute renal failure and hyperkalemia. 3. Hyperglycemia. 4. History of diabetes mellitus and diabetic ketoacidosis. 5. Right closed tibial fracture status post yuri fixation on December 03. 6. Anemia. 7. History of seizure disorder and CVA. 8. History of lupus. RECOMMENDATIONS 1. Monitor neuro status closely and avoid any sedatives. 2. Continue with oxygen maintain sats above 92%. 3. Bronchodilators in the form of DuoNeb q. 4+ q. two p.r.n. for shortness of breath. 4. We will place the patient on BiPap 10/5 with 40% FIO2 and repeat ABG. If there is any worsening in respiratory acidosis or clinical condition will proceed with intubation. 5. We will check a baseline chest x-ray. 6. Monitor heart rate and blood pressure closely and maintain MAP greater than 65 mmHg. Monitor renal function Is and Os and electrolyte replacement as needed. Avoid nephrotoxins. We will give 1 liter bolus of normal saline and placed on normal NS at 100 ML an hour in addition will give Kayexalate at 30 grams p.o. x1 and repeat potassium level in a couple hours. 7. Place on Protonix 40 mg IV daily for GI prophylaxis. 8. Monitor for signs of infections which include fever and white blood cell. 9. Plan a culture if spikes a fever. Will obtain urinalysis with culture if indicated and chest x-ray as stated above. 10. Place on the high scale and sliding scale insulin with Accu-Chek q. 4-hour for glycemic control and Lantus insulin. 11. Of note the patient is allergic to Levemir 12. Monitor CBC 13. GI prophylaxis with Protonix 40 mg daily and DVT prophylaxis with SCDs and heparin Subcu. 14. Further recommendations will be based on hospital course. 15. The case discussed with ICU nursing staff and Dr. Diallo from [facility]. MD SAFIA Bailey/shan /12:10 PM /2:08 PM
[2016-12-04 15:24] LABS: BLOOD GAS BASE EXCESS -3.5 mmol/L (-2-2); BLOOD GAS CARBOXYHEMOGLOBIN 1.7 % (0-4); BLOOD GAS HCO3 22 mmol/L (22-26); BLOOD GAS METHEMOGLOBIN 1.2 % (0-2); BLOOD GAS O2 HGB SATURATION 97 % (90-100); BLOOD GAS OXYGEN CONTENT 9.8 Vol % (12.0-20.0); BLOOD GAS PCO2 47 mmHg (38-42); BLOOD GAS PO2 155 mmHg (61-120); CRITICAL VALUE YES; TEMP CORR TO 98.6
[2016-12-04 15:25] LABS: DRAW SITE LT BRACHIAL; FIO2 30 %; NUMBER OF ARTERIAL PUNCTURES 1; OXYGEN DEVICE BIPAP 12 IPAP/5; STAT NO
[2016-12-04] MEDS: RESP: ALBUTEROL 2.5 MG/IPRATROPIUM 0.5 MG NEB (SCH) NEB ×2 (15:53→20:58)
[2016-12-04 16:00] LABS: BLOOD, URINE TRACE (NEG); GLUCOSE,URINE 1000 mg/dL (NEG); KETONE, URINE TRACE mg/dL (NEG); MUCUS URINE FEW /lpf (OCC); NITRITE,URINE NEG (NEG); SQUAMOUS EPITHELIAL CELL URINE 1 /hpf (0-5); URINE COLOR YELLOW (YELLW/STRAW)
[2016-12-04 16:01] LABS: COMMENT (UR) CATH-CULT NOT IND; CULTURE IF INDICATED CATH CULTURE NOT IND
[2016-12-04 17:08] LABS: BICARBONATE 22.8 MEQ/L (21.0-32.0); POTASSIUM 4.6 MEQ/L (3.5-5.1)
[2016-12-04 17:28] LABS: CALCIUM-PROTEIN CORRECTED 8.4 MG/DL (8.5-10.1)
[2016-12-04] MEDS: CALCIUM CARBONATE 500 MG CHEWABLE TAB CHEW SCH (19:33)
[2016-12-04] MEDS: CHLORHEXIDINE GLUCONATE 2 % 1 PACK (2 CLOTHS)(taper/protocol) TOPICAL SCH (19:39)
[2016-12-04] MEDS: MORPHINE SULFATE 8 MG/ML INJ IV PUSH PRN (20:39)
[2016-12-04] MEDS ORDERED: INSULIN DETEMIR 100 UNITS/ML VIAL SQ SCH (21:00)
[2016-12-05] VITALS (22 sets, daily range): BP systolic 107–161; BP diastolic 57–89; PULSE 100–119; RESP 5–16; TEMP 98.1–99.5; O2SAT 99–100
[2016-12-05] MEDS: RESP: ALBUTEROL 2.5 MG/IPRATROPIUM 0.5 MG NEB (SCH) NEB ×7 (03:38→23:26)
[2016-12-05] MEDS: KETOROLAC TROMETHAMINE 30 MG/ML (IVP) VIAL IVP SCH ×2 (04:23→12:00)
[2016-12-05] MEDS: INSULIN NovoLIN REGULAR SUPPLEMENTAL SCALE SQ SCH ×6 (04:23→22:00)
[2016-12-05] MEDS: ENOXAPARIN SODIUM 30 MG/0.3 ML SYRINGE SQ SCH (04:23)
[2016-12-05 05:52] LABS: AUTOMATED NEUTROPHIL # 4.2 TH/MM3 (1.8-7.7); BASOPHIL % 0.4 % (0.0-2.0); EOSINOPHIL # 0.1 TH/MM3 (0-0.4); EOSINOPHIL % 1.8 % (0.0-4.0); LYMPH % 21.8 % (9.0-44.0); LYMPHOCYTE # 1.3 TH/MM3 (1.0-4.8); MEAN CELL VOLUME 90.7 FL (80.0-100.0); MEAN CORPUSCULAR HEMOGLOBIN 29.6 PG (27.0-34.0); MEAN CORPUSCULAR HGB CONC 32.7 % (32.0-36.0); MONO % 4.9 % (0.0-8.0); NEUT % 71.1 % (16.0-70.0); PLATELET COUNT 199 TH/MM3 (150-450); RED BLOOD COUNT 2.29 MIL/MM3 (4.00-5.30)
[2016-12-05 06:01] LABS: HEMO FLAGS DIFF FINAL
[2016-12-05 06:03] LABS: HEMATOCRIT 20.8 % (35.0-46.0)
[2016-12-05 06:20] LABS: BICARBONATE 22.3 MEQ/L (21.0-32.0); MAGNESIUM 1.7 MG/DL (1.5-2.5); POTASSIUM 4.4 MEQ/L (3.5-5.1)
[2016-12-05 06:33] LABS: CALCIUM-PROTEIN CORRECTED 8.2 MG/DL (8.5-10.1)
[2016-12-05] MEDS: SODIUM CHLORIDE 0.9% FLUSH 10 ML FLUSH IV FLUSH SCH ×2 (09:00→19:57)
--- NOTE | 2016-12-05 09:08 | HHI.CCPN ---
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 She was admitted to [facility] under hospitalist service on December 02 status post fall and was found to have distal tibial fracture. She underwent yuri fixation of her tibial fracture on December 03. Her initial laboratory data showed mild acute kidney injury with creatinine level of 1.37 on December 02 and WBC of 8.1. She had a HELICAT was called earlier as the patient was found somewhat lethargic and initially was felt to be in DKA by the primary team. However, upon arrival to the ICU her ABG showed a pH of 7.23, CO2 55, pAO2 of 22. Also, pAO2 of 95, bicarb of 22 and saturation 93% and her laboratory data from today showed worsening renal failure with a creatinine level of 2.32 and hyperkalemia with potassium level 5.6. She was given morphine 2 mg IV push, at 9:00 in the morning yesterday and Percocet 2 tablets last night and 2 tablets this morning at 04:00 a.m. A repeat ABG from 11:35 showed a pH of 7.26 with a CO2 50, pAO2 135, bicarb 22 and sats of 96% on 2 liters nasal cannula. Due to her worsening renal function and mild respiratory acidosis and critical care medicine was consulted for critical care management. The patient is awake, alert on 2 liters oxygen with saturation of 93% and blood pressure of 103/54. She denies any chest pain, shortness of breath or any GI symptoms. 12/05 Patient is awake and alert on 2L oxygen with good sats. Afebrile. Objective Vital Signs Date Time Temp Pulse Resp B/P Pulse Ox O2 Delivery O2 Flow Rate FiO2 12/05/16 08:00 98.1 104 12 107/57 100 12/05/16 07:45 Nasal Cannula 2.00 12/04/16 13:37 30 Intake and Output 12/04/16 12/04/16 12/05/16 08:00 16:00 00:00 Intake Total 400 ml 5462 ml Output Total 2100 ml Balance 400 ml 3362 ml Result Diagram: 12/05/16 0446 12/05/16 0446 Other Results Laboratory Tests Test 6/24/17 12/04/16 12/04/16 12/04/16 11:35 12:35 15:16 16:22 Blood Gas Puncture Site RT RADIAL LT BRACHIAL Blood Gas Patient Temperature 98.6 98.6 Blood Gas HCO3 22 mmol/L 22 mmol/L Blood Gas Base Excess -4.1 mmol/L -3.5 mmol/L Blood Gas Oxygen Saturation 96 % 97 % Arterial Blood pH 7.26 7.29 Arterial Blood Partial 50 mmHg 47 mmHg Pressure CO2 Arterial Blood Partial 135 mmHg 155 mmHg Pressure O2 Arterial Blood Oxygen Content 9.7 Vol % 9.8 Vol % Arterial Blood 2.1 % 1.7 % Carboxyhemoglobin Arterial Blood Methemoglobin 1.1 % 1.2 % Blood Gas Hemoglobin 6.9 G/DL 7.0 G/DL Oxygen Delivery Device NASAL CANNULA BIPAP 12 IPAP/5 Blood Gas Liter Flow 2 L/M Urine Color YELLOW Urine Turbidity HAZY Urine pH 6.0 Urine Specific [place] 1.016 Urine Protein 100 mg/dL Urine Glucose (UA) 1000 mg/dL Urine Ketones TRACE mg/dL Urine Occult Blood TRACE Urine Nitrite NEG Urine Bilirubin NEG Urine Urobilinogen LESS THAN 2.0 MG/DL Urine Leukocyte Esterase NEG Urine RBC 2 /hpf Urine WBC 4 /hpf Urine Squamous Epithelial 1 /hpf Cells Urine Amorphous Sediment FEW Urine Mucus FEW /lpf Microscopic Urinalysis Comment CATH-CULT NOT IND Blood Gas Inspired Oxygen 30 % Sodium Level 144 MEQ/L Potassium Level 4.6 MEQ/L Chloride Level 113 MEQ/L Carbon Dioxide Level 22.8 MEQ/L Anion Gap 8 MEQ/L Blood Urea Nitrogen 15 MG/DL Creatinine 2.10 MG/DL Estimat Glomerular Filtration 30 ML/MIN Rate Random Glucose 122 MG/DL Calcium Level 7.4 MG/DL Protein Corrected Calcium 8.4 MG/DL Total Protein 5.3 GM/DL Test 12/05/16 04:46 White Blood Count 6.0 TH/MM3 Red Blood Count 2.29 MIL/MM3 Hemoglobin 6.8 GM/DL Hematocrit 20.8 % Mean Corpuscular Volume 90.7 FL Mean Corpuscular Hemoglobin 29.6 PG Mean Corpuscular Hemoglobin 32.7 % Concent Red Cell Distribution Width 17.0 % Platelet Count 199 TH/MM3 Mean Platelet Volume 10.3 FL Neutrophils (%) (Auto) 71.1 % Lymphocytes (%) (Auto) 21.8 % Monocytes (%) (Auto) 4.9 % Eosinophils (%) (Auto) 1.8 % Basophils (%) (Auto) 0.4 % Neutrophils # (Auto) 4.2 TH/MM3 Lymphocytes # (Auto) 1.3 TH/MM3 Monocytes # (Auto) 0.3 TH/MM3 Eosinophils # (Auto) 0.1 TH/MM3 Basophils # (Auto) 0.0 TH/MM3 CBC Comment DIFF FINAL Differential Comment Sodium Level 144 MEQ/L Potassium Level 4.4 MEQ/L Chloride Level 113 MEQ/L Carbon Dioxide Level 22.3 MEQ/L Anion Gap 9 MEQ/L Blood Urea Nitrogen 14 MG/DL Creatinine 2.05 MG/DL Estimat Glomerular Filtration 31 ML/MIN Rate Random Glucose 229 MG/DL Calcium Level 7.0 MG/DL Protein Corrected Calcium 8.2 MG/DL Magnesium Level 1.7 MG/DL Total Protein 4.9 GM/DL Imaging Last Impressions Chest X-Ray 12/04/16 0000 Signed Impressions: Service Date/Time: Sunday, December 04, 2016 12:28 - CONCLUSION: There is platelike atelectasis in the left lower lung. Otherwise the rest of the lungs are grossly clear. Chaparro Reece MD Tibia/Fibula X-Ray 12/03/16 0000 Signed Impressions: Service Date/Time: Saturday, December 03, 2016 15:09 - CONCLUSION: Excellent alignment of the patient's tibial fracture post rodding. Patient has a minimally displaced fibular fracture as well. Umesh Farah MD Ankle X-Ray 12/02/16 0000 Signed Impressions: Service Date/Time: November 18:16 - CONCLUSION: 1. The ankle mortise is intact. 2. Distal tibial and fibular fractures again noted. Please see right leg report for further details. Javier Marino MD Objective Remarks GENERAL: Patient is 46 yo lying in be din NAD SKIN: Warm and dry. HEAD: Normocephalic. EYES: No scleral icterus. No injection or drainage. NECK: Supple, trachea midline. No JVD or lymphadenopathy. CARDIOVASCULAR: Regular rate and rhythm without murmurs, gallops, or rubs. RESPIRATORY: Breath sounds equal bilaterally. No accessory muscle use. GASTROINTESTINAL: Abdomen soft, non-tender, nondistended. MUSCULOSKELETAL: No cyanosis, or edema. Neuro: Awake and alert A/P Assessment and Plan 1. Respiratory insufficiency. 2. Acute renal failure. improving 3. Hyperglycemia. 4. DM 5. Right closed tibial fracture status post yuri fixation on December 03. 6. Anemia. 7. History of seizure disorder and CVA. 8. History of lupus. Plan Neuro: Monitor neuro status closely and avoid any sedatives. On Keppra 500mg BID, Dilantin 100mg BID, Dilantin level:1.6 Pulm: Continue with oxygen maintain sats above 92%. Bronchodilators, IS< NIPPV PRN for resp distress. CV: Monitor HR and BP and maintain MAP> 65 mmHg. : Monitor renal function Is and Os and electrolyte replacement as needed. Avoid nephrotoxins. On NS @100ml/hr. Renal function is improving with Cr: 2.0 from 2.3 yesterday GI: On Protonix 40 mg IV daily for GI prophylaxis. ID: Monitor for signs of infections (Fever and WBC) panculture if spikes a fever. CXR: Atelectasis in left lung Endo: Change SSI medium scale with Accu-Chek q. 4-hour Patient is allergic to Levemir Heme: Monitor CBC, transfuse 2units PRBC if Hgb < 7 GI eval, Hemoccult stool GI prophylaxis with Protonix 40 mg daily and DVT prophylaxis with SCDs and Lovenox 30mg BID per Ortho Level [address] MD Dec 05, 2016 09:08
[2016-12-05] MEDS: ATORVASTATIN 80 MG TAB PO SCH (09:10)
[2016-12-05] MEDS: FLUoxetine HCL 10 MG CAP PO SCH (09:10)
[2016-12-05] MEDS: DOCUSATE SODIUM 50 MG/SENNA 8.6 MG TAB PO SCH ×2 (09:10→19:57)
[2016-12-05] MEDS: PHENYTOIN SODIUM 100 MG CAP PO SCH ×2 (09:10→19:56)
[2016-12-05] MEDS: SODIUM CHLOR 0.9% 1000 ML INJ 1,000 ML IV SCH ×2 (09:11→18:15)
[2016-12-05] MEDS: CALCIUM CARBONATE 500 MG CHEWABLE TAB CHEW SCH ×2 (09:18→19:57)
[2016-12-05] MEDS: levETIRAcetam 500 MG TAB PO SCH ×2 (09:18→19:56)
[2016-12-05] MEDS ORDERED: GLUCAGON 1 MG/ML VIAL OTHER PRN (09:30)
[2016-12-05] MEDS ORDERED: DEXTROSE 50% IN WATER 50 ML VIAL(D50) IV PRN (09:30)
[2016-12-05 09:41] LABS: REVIEW FLAG FINAL
[2016-12-05 09:52] LABS: HEMATOCRIT 20.6 % (35.0-46.0)
[2016-12-05] MEDS ORDERED: CALCIUM GLUCONATE INJ 1 GM in SODIUM CHLORIDE 0.9% INJ 100 ML IV ONE (10:00)
--- NOTE | 2016-12-05 10:56 | PD.ORT.PN ---
Subjective Subjective Remarks feeling better than yesterday Objective Vitals Vital Signs Date Time Temp Pulse Resp B/P Pulse Ox O2 Delivery O2 Flow Rate FiO2 12/05/16 10:00 110 12/05/16 08:00 98.1 104 12 107/57 100 12/05/16 08:00 100 12/05/16 07:45 99 Nasal Cannula 2.00 12/05/16 07:00 98 Nasal Cannula 2.00 12/05/16 06:00 100 12/05/16 05:00 103 6 115/64 100 12/05/16 04:45 104 8 100 12/05/16 04:30 110 12 100 12/05/16 04:15 101 11 100 12/05/16 04:00 100 12/05/16 04:00 102 8 114/57 100 12/05/16 03:45 102 8 100 12/05/16 03:30 103 5 100 12/05/16 03:15 100 8 100 12/05/16 03:00 101 7 115/59 100 12/05/16 02:00 100 12/05/16 00:00 100 12/05/16 00:00 98.3 103 16 126/63 100 12/04/16 22:00 100 12/04/16 21:00 100 Nasal Cannula 1.00 12/04/16 20:00 97.5 101 16 117/66 100 12/04/16 20:00 100 12/04/16 20:00 90 Nasal Cannula 2.00 12/04/16 18:00 100 12/04/16 16:00 100 12/04/16 16:00 97.5 94 16 140/80 100 12/04/16 14:00 93 12/04/16 13:37 100 30 12/04/16 12:00 97.8 91 12 100/57 100 12/04/16 12:00 92 I/O 12/04/16 12/04/16 12/04/16 12/05/16 12/05/16 12/05/16 07:00 15:00 23:00 07:00 15:00 23:00 Intake Total 400 ml 5462 ml 1075 ml Output Total 2100 ml 475 ml Balance 400 ml 3362 ml 600 ml Intake Oral 400 ml 500 ml 225 ml IV Total 4962 ml 850 ml Output Urine Total 2100 ml 475 ml # Voids 0 # Bowel Movements 0 2 Result Diagram: 12/05/16 0921 12/05/16 0446 Procedures Right tibial shaft fracture with ORIF Objective Remarks Patient's dressing has mild to moderate serosang drainage distal/posterior. Minimal swelling to the right foot and lower extremity. Patient has good sensation to light touch about the right foot and toes. EHL/TA/G intact. 2+ pedal pulse. Calf is soft and nontender. Assessment & Plan Assessment and Plan POD #2: Right tibial shaft fracture with ORIF Antiocoagulation: Lovenox Weight bearing status: NWB Dressing: Change daily, by RN starting postop day 2 (will start today, discussed with nursing) better glucose control, but worsening renal function per nursing the patient is going to be transfused 2U PRBC for anemia Medical management per ICU Scotty Mills MD Dec 05, 2016 10:56
[2016-12-05] MEDS ORDERED: KETOROLAC TROMETHAMINE 30 MG/ML (IVP) VIAL IVP SCH (16:15)
--- NOTE | 2016-12-05 16:47 | MB ---
cc: TREVIN MONTANA M.D. DATE OF CONSULTATION: 12/05/2016. REASON FOR CONSULTATION: Anemia. DATE OF : 1970. HISTORY OF PRESENT ILLNESS: Thank you for the consultation. This is a pleasant 46-year-old -[place] lady who has multiple medical problems including diabetes, chronic kidney disease, CVA. The patient was here recently until the . She slipped and fell when she was leaving her father's house on the and came back for ankle repair. The patient was doing okay but then she was found to have severe anemia with drop of hemoglobin to 5.7. The patient is currently alert, oriented and denies any GI symptoms. She stated that she had an upper endoscopy and a colonoscopy just in August. No abdominal pain. No nausea or vomiting. No black stool. No hematemesis or hematochezia. The patient denied any GI symptoms at all. REVIEW OF SYSTEMS: All twelve-point negative except for the history of present illness. PAST MEDICAL HISTORY: Significant for: 1. Hypertension. 2. Lupus. 3. Bronchial asthma. 4. Diabetes. 5. Seizure disorder. 6. CVA. 7. Chronic kidney disease. 8. The patient had pancreatitis on the last admission. MEDICATIONS: Reviewed in the chart. ALLERGIES: 1. LEVEMIR. 2. ASPIRIN. 3. PENICILLIN. 4. SULFA. 5. BANANA. 6. ADHESIVE TAPE. 7. MACROBID. 8. MULTIDRUG-RESISTANT ORGANISM. PAST SURGICAL HISTORY: 1. Cholecystectomy. 2. Hysterectomy. 3. Left foot surgery. 4. section. 5. Upper endoscopy and a colonoscopy a few months ago. SOCIAL HISTORY: Occasional alcohol. No drugs or tobacco. FAMILY HISTORY: Family history is significant for diabetes, hypertension, an uncle who had colon cancer. PHYSICAL EXAMINATION: GENERAL: Alert, oriented, in no acute distress at this time. VITAL SIGNS: Vital signs are stable. HEAD, EYES, EARS, NOSE, THROAT: Pupils are round and reactive to light. NECK: The neck is supple. CHEST: Clear to auscultation and percussion. CARDIAC: Regular rate and rhythm. No murmur or gallop. ABDOMEN: The abdomen is soft, nontender and nondistended. Positive bowel sounds. EXTREMITIES: No edema, clubbing or cyanosis. She had swelling on the right leg because of the ankle injury and surgery. NEUROLOGIC: Neurologically intact. No focal abnormality. PSYCHIATRIC: Psychologically appropriate. LABORATORY DATA: Hemoglobin 6.8, down from 8.3. White count 6.0, platelets 199,000. INR 1.0. Liver function tests normal. BUN 14, creatinine 2.05, GFR is 31, glucose 229. IgG was negative. IMAGING STUDIES: Chest x-ray was unremarkable. ASSESSMENT AND PLAN: This is a 46-year-old lady who has acute onset of anemia on chronic. She came with low hemoglobin but then she dropped in the last two days even more. She denies any black stool. No coffee-ground emesis or sign of GI bleed. This could be related to her lupus or related to her kidney disease. She just had an upper endoscopy and a colonoscopy recently, which were unremarkable. I recommend hemoccult stools and if this is positive, the patient can have a capsule endoscopy. If there are any GI symptoms such as rectal bleeding or nausea or vomiting, then an endoscopy or colonoscopy can be repeated. Also, I recommend obtaining oncology consult for evaluation of the anemia to rule out other source. This all could be chronic disease, even though it is on the low side for that. Further plan depends on the above. MD TAMIKO Gamboa/KARI /4:06 PM /4:40 PM
[2016-12-05] MEDS: oxyCODONE/ACETAMINOPHEN 5 MG/325 MG TAB PO PRN ×2 (17:47→23:01)
[2016-12-05 21:40] LABS: HEMATOCRIT 29.7 % (35.0-46.0); REVIEW FLAG FINAL
[2016-12-05 23:16] LABS: BICARBONATE 24.4 MEQ/L (21.0-32.0); POTASSIUM 4.3 MEQ/L (3.5-5.1)
[2016-12-05 23:30] LABS: CALCIUM-PROTEIN CORRECTED 8.5 MG/DL (8.5-10.1)
[2016-12-06] VITALS (23 sets, daily range): BP systolic 108–207; BP diastolic 56–115; PULSE 93–121; RESP 6–17; TEMP 97.7–99; O2SAT 95–100
[2016-12-06] MEDS: INSULIN NovoLIN REGULAR SUPPLEMENTAL SCALE SQ SCH ×6 (02:00→20:39)
[2016-12-06] MEDS: CHLORHEXIDINE GLUCONATE 2 % 1 PACK (2 CLOTHS)(taper/protocol) TOPICAL SCH (04:00)
[2016-12-06] MEDS: RESP: ALBUTEROL 2.5 MG/IPRATROPIUM 0.5 MG NEB (SCH) NEB ×5 (04:00→20:46)
[2016-12-06 05:53] LABS: AUTOMATED NEUTROPHIL # 3.6 TH/MM3 (1.8-7.7); BASOPHIL % 0.2 % (0.0-2.0); EOSINOPHIL # 0.2 TH/MM3 (0-0.4); EOSINOPHIL % 3.4 % (0.0-4.0); HEMATOCRIT 29.6 % (35.0-46.0); HEMO FLAGS DIFF FINAL; LYMPH % 23.9 % (9.0-44.0); LYMPHOCYTE # 1.3 TH/MM3 (1.0-4.8); MEAN CELL VOLUME 89.6 FL (80.0-100.0); MEAN CORPUSCULAR HEMOGLOBIN 30.4 PG (27.0-34.0); MONO % 8.5 % (0.0-8.0); PLATELET COUNT 218 TH/MM3 (150-450); RED BLOOD COUNT 3.31 MIL/MM3 (4.00-5.30); RED CELL DISTRIBUTION WIDTH 15.3 % (11.6-17.2); WHITE BLOOD COUNT 5.6 TH/MM3 (4.0-11.0)
[2016-12-06] MEDS: SODIUM CHLOR 0.9% 1000 ML INJ 1,000 ML IV SCH (06:27)
[2016-12-06 06:58] LABS: BICARBONATE 22.7 MEQ/L (21.0-32.0); MAGNESIUM 1.7 MG/DL (1.5-2.5); POTASSIUM 4.2 MEQ/L (3.5-5.1)
[2016-12-06 07:14] LABS: CALCIUM-PROTEIN CORRECTED 8.7 MG/DL (8.5-10.1)
[2016-12-06] MEDS: DOCUSATE SODIUM 50 MG/SENNA 8.6 MG TAB PO SCH ×2 (09:00→20:39)
[2016-12-06] MEDS: PHENYTOIN SODIUM 100 MG CAP PO SCH ×2 (09:05→20:38)
[2016-12-06] MEDS: ATORVASTATIN 80 MG TAB PO SCH (09:05)
[2016-12-06] MEDS: levETIRAcetam 500 MG TAB PO SCH ×2 (09:05→20:38)
[2016-12-06] MEDS: FLUoxetine HCL 10 MG CAP PO SCH (09:05)
[2016-12-06] MEDS: CALCIUM CARBONATE 500 MG CHEWABLE TAB CHEW SCH ×2 (09:07→20:38)
[2016-12-06] MEDS: SODIUM CHLORIDE 0.9% FLUSH 10 ML FLUSH IV FLUSH SCH ×2 (09:07→20:38)
[2016-12-06] MEDS: ENOXAPARIN SODIUM 30 MG/0.3 ML SYRINGE SQ SCH (09:08)
[2016-12-06] MEDS ORDERED: BUMETANIDE INJ 1 MG/4 ML VIAL IV PUSH ONE (09:45)
--- NOTE | 2016-12-06 09:59 | HHI.CCPN ---
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 She was admitted to [facility] under hospitalist service on December 02 status post fall and was found to have distal tibial fracture. She underwent yuri fixation of her tibial fracture on December 03. Her initial laboratory data showed mild acute kidney injury with creatinine level of 1.37 on December 02 and WBC of 8.1. She had a HELICAT was called earlier as the patient was found somewhat lethargic and initially was felt to be in DKA by the primary team. However, upon arrival to the ICU her ABG showed a pH of 7.23, CO2 55, pAO2 of 22. Also, pAO2 of 95, bicarb of 22 and saturation 93% and her laboratory data from today showed worsening renal failure with a creatinine level of 2.32 and hyperkalemia with potassium level 5.6. She was given morphine 2 mg IV push, at 9:00 in the morning yesterday and Percocet 2 tablets last night and 2 tablets this morning at 04:00 a.m. A repeat ABG from 11:35 showed a pH of 7.26 with a CO2 50, pAO2 135, bicarb 22 and sats of 96% on 2 liters nasal cannula. Due to her worsening renal function and mild respiratory acidosis and critical care medicine was consulted for critical care management. The patient is awake, alert on 2 liters oxygen with saturation of 93% and blood pressure of 103/54. She denies any chest pain, shortness of breath or any GI symptoms. 12/05 Patient is awake and alert on 2L oxygen with good sats. Afebrile. 12/06 No events overnight. s/p transfusion 2u PRBC Hgb 10.1 this morning. Renal function is improving with Cr: 1.75 from 1.92 Objective Vital Signs Date Time Temp Pulse Resp B/P Pulse Ox O2 Delivery O2 Flow Rate FiO2 12/06/16 08:00 95 21 12/06/16 06:00 100 12/06/16 04:00 97.7 10 160/89 12/05/16 19:00 Room Air 12/05/16 07:45 2.00 Intake and Output 12/05/16 12/05/16 12/06/16 08:00 16:00 00:00 Intake Total 1075 ml 1545 ml 1023 ml Output Total 475 ml 350 ml 150 ml Balance 600 ml 1195 ml 873 ml Result Diagram: 12/06/16 0453 12/06/16 0453 Other Results Laboratory Tests Test 12/05/16 12/05/16 12/06/16 11:19 20:59 04:53 Blood Type AB POSITIVE Antibody Screen NEGATIVE Crossmatch Leukocyte-Reduced Red Blood Cells Blood Bank Comment Hemoglobin 10.2 GM/DL 10.1 GM/DL Hematocrit 29.7 % 29.6 % Sodium Level 145 MEQ/L 144 MEQ/L Potassium Level 4.3 MEQ/L 4.2 MEQ/L Chloride Level 112 MEQ/L 111 MEQ/L Carbon Dioxide Level 24.4 MEQ/L 22.7 MEQ/L Anion Gap 9 MEQ/L 10 MEQ/L Blood Urea Nitrogen 14 MG/DL 15 MG/DL Creatinine 1.92 MG/DL 1.75 MG/DL Estimat Glomerular Filtration 34 ML/MIN 38 ML/MIN Rate Random Glucose 143 MG/DL 186 MG/DL Calcium Level 7.3 MG/DL 7.4 MG/DL Protein Corrected Calcium 8.5 MG/DL 8.7 MG/DL Total Protein 5.0 GM/DL 4.8 GM/DL White Blood Count 5.6 TH/MM3 Red Blood Count 3.31 MIL/MM3 Mean Corpuscular Volume 89.6 FL Mean Corpuscular Hemoglobin 30.4 PG Mean Corpuscular Hemoglobin 34.0 % Concent Red Cell Distribution Width 15.3 % Platelet Count 218 TH/MM3 Mean Platelet Volume 10.0 FL Neutrophils (%) (Auto) 64.0 % Lymphocytes (%) (Auto) 23.9 % Monocytes (%) (Auto) 8.5 % Eosinophils (%) (Auto) 3.4 % Basophils (%) (Auto) 0.2 % Neutrophils # (Auto) 3.6 TH/MM3 Lymphocytes # (Auto) 1.3 TH/MM3 Monocytes # (Auto) 0.5 TH/MM3 Eosinophils # (Auto) 0.2 TH/MM3 Basophils # (Auto) 0.0 TH/MM3 CBC Comment DIFF FINAL Differential Comment Phosphorus Level 3.8 MG/DL Magnesium Level 1.7 MG/DL Imaging Last Impressions Chest X-Ray 12/04/16 0000 Signed Impressions: Service Date/Time: Sunday, December 04, 2016 12:28 - CONCLUSION: There is platelike atelectasis in the left lower lung. Otherwise the rest of the lungs are grossly clear. Chaparro Reece MD Tibia/Fibula X-Ray 12/03/16 0000 Signed Impressions: Service Date/Time: Saturday, December 03, 2016 15:09 - CONCLUSION: Excellent alignment of the patient's tibial fracture post rodding. Patient has a minimally displaced fibular fracture as well. Umesh Farah MD Ankle X-Ray 12/02/16 0000 Signed Impressions: Service Date/Time: November 18:16 - CONCLUSION: 1. The ankle mortise is intact. 2. Distal tibial and fibular fractures again noted. Please see right leg report for further details. Javier Marino MD Objective Remarks GENERAL: Patient is 46 yo lying in be din NAD SKIN: Warm and dry. HEAD: Normocephalic. EYES: No scleral icterus. No injection or drainage. NECK: Supple, trachea midline. No JVD or lymphadenopathy. CARDIOVASCULAR: Regular rate and rhythm without murmurs, gallops, or rubs. RESPIRATORY: Breath sounds equal bilaterally. No accessory muscle use. GASTROINTESTINAL: Abdomen soft, non-tender, nondistended. MUSCULOSKELETAL: No cyanosis, or edema. Neuro: Awake and alert A/P Assessment and Plan 1. Respiratory insufficiency. 2. Acute renal failure. improving 3. Hyperglycemia. 4. DM 5. Right closed tibial fracture status post yuri fixation on December 03. 6. Anemia. 7. History of seizure disorder and CVA. 8. History of lupus. 9. HTN Plan Neuro: Monitor neuro status closely and avoid any sedatives. On Keppra 500mg BID, Dilantin 100mg BID, Dilantin level:1.6 Pulm: Continue with oxygen maintain sats above 92%. Bronchodilators, IS, NIPPV PRN for resp distress. CV: Monitor HR and BP and maintain MAP> [address] On Clonidine 0.1mg Q8 : Monitor renal function Is and Os and electrolyte replacement as needed. Avoid nephrotoxins. Renal function is improving with Cr: 1.75 from 1.92 Diurese with Bumex m1g x1, d/c IVF GI: On Protonix 40 mg IV daily for GI prophylaxis. ID: Monitor for signs of infections (Fever and WBC) panculture if spikes a fever. CXR: Atelectasis in left lung Endo: On SSI medium scale with Accu-Chek q. 4-hour Patient is allergic to Levemir Heme: Monitor CBC,s/p transfuse 2units PRBC 12/05 Check Hemoccult stool, GI is following. GI prophylaxis with Protonix 40 mg daily and DVT prophylaxis with SCDs and Lovenox 30mg BID per Ortho Will sign off and transfer care to [facility] Level [address] MD Dec 06, 2016 09:59
[2016-12-06] MEDS: hydrALAZINE HCL 20 MG/ML VIAL IV PUSH PRN ×2 (10:27→18:24)
[2016-12-06] MEDS: cloNIDine HCL 0.1 MG TAB PO SCH ×3 (10:27→20:39)
[2016-12-06] MEDS: oxyCODONE/ACETAMINOPHEN 5 MG/325 MG TAB PO PRN (11:57)
--- NOTE | 2016-12-06 14:02 | HHI.GIFU ---
Subjective Remarks Pt feels better. Received blood. She did not see any blood in stool. EGD and Stephenson were normal 2 months ago. Objective Vitals I&O Vital Signs Date Time Temp Pulse Resp B/P Pulse Ox O2 Delivery O2 Flow Rate FiO2 12/06/16 08:00 95 21 12/06/16 06:00 100 12/06/16 04:00 97.7 99 10 160/89 96 12/06/16 04:00 99 12/06/16 02:00 97 12/06/16 00:00 99.0 104 16 117/66 100 12/06/16 00:00 104 12/05/16 22:00 111 12/05/16 20:01 100 21 12/05/16 20:00 99.5 106 12 161/89 100 12/05/16 20:00 106 12/05/16 19:00 100 Room Air 12/05/16 18:00 107 12/05/16 16:00 98.6 114 13 157/74 100 12/05/16 16:00 111 I/O 12/05/16 12/05/16 12/05/16 12/06/16 12/06/16 12/06/16 07:00 15:00 23:00 07:00 15:00 23:00 Intake Total 1075 ml 1545 ml 1023 ml 721 ml Output Total 475 ml 350 ml 150 ml 250 ml Balance 600 ml 1195 ml 873 ml 471 ml Intake Oral 225 ml 500 ml 120 ml IV Total 850 ml 1045 ml 653 ml 721 ml Packed Cells 250 ml Output Urine Total 475 ml 350 ml 150 ml 250 ml # Bowel Movements 1 0 Laboratory Laboratory Tests Test 12/05/16 12/06/16 20:59 04:53 Hemoglobin 10.2 10.1 Hematocrit 29.7 29.6 Sodium Level 145 144 Potassium Level 4.3 4.2 Chloride Level 112 111 Carbon Dioxide Level 24.4 22.7 Anion Gap 9 10 Blood Urea Nitrogen 14 15 Creatinine 1.92 1.75 Estimat Glomerular Filtration 34 38 Rate Random Glucose 143 186 Calcium Level 7.3 7.4 Protein Corrected Calcium 8.5 8.7 Total Protein 5.0 4.8 White Blood Count 5.6 Red Blood Count 3.31 Mean Corpuscular Volume 89.6 Mean Corpuscular Hemoglobin 30.4 Mean Corpuscular Hemoglobin 34.0 Concent Red Cell Distribution Width 15.3 Platelet Count 218 Mean Platelet Volume 10.0 Neutrophils (%) (Auto) 64.0 Lymphocytes (%) (Auto) 23.9 Monocytes (%) (Auto) 8.5 Eosinophils (%) (Auto) 3.4 Basophils (%) (Auto) 0.2 Neutrophils # (Auto) 3.6 Lymphocytes # (Auto) 1.3 Monocytes # (Auto) 0.5 Eosinophils # (Auto) 0.2 Basophils # (Auto) 0.0 CBC Comment DIFF FINAL Differential Comment Phosphorus Level 3.8 Magnesium Level 1.7 Physical Exam HEENT: Pupils round and reactive to light; normocephalic; atraumatic; no jaundice. Throat is clear. NECK: Neck is supple, no JVD, no lymphadenopathy. CHEST: Chest is clear to auscultation and percussion. CARDIAC: Regular rate and rhythm with no murmur gallop or rubs. ABDOMEN: Soft, nondistended, nontender; no hepatosplenomegaly; bowel sounds are present in all four quadrants. EXTREMITIES: No clubbing, cyanosis, or edema. SKIN: Normal; no rash; no jaundice. MENDER HAND: No focal deficits; alert and oriented times three. Assessment and Plan Plan Imp: Anemia of chronic disease. Plan: GI will sign off. Please reconsult if needed. Paulino Blood MD Dec 06, 2016 14:02
[2016-12-06] MEDS: MORPHINE SULFATE 8 MG/ML INJ IV PUSH PRN (20:54)
[2016-12-07] VITALS (24 sets, daily range): BP systolic 119–191; BP diastolic 61–110; PULSE 68–112; RESP 6–17; TEMP 97.4–98.3; O2SAT 95–99
[2016-12-07] MEDS: RESP: ALBUTEROL 2.5 MG/IPRATROPIUM 0.5 MG NEB (SCH) NEB ×7 (03:40→23:38)
[2016-12-07] MEDS: CHLORHEXIDINE GLUCONATE 2 % 1 PACK (2 CLOTHS)(taper/protocol) TOPICAL SCH ×2 (04:00→23:41)
[2016-12-07] MEDS: cloNIDine HCL 0.1 MG TAB PO SCH ×3 (06:00→21:30)
[2016-12-07] MEDS: INSULIN NovoLIN REGULAR SUPPLEMENTAL SCALE SQ SCH ×4 (07:00→21:00)
[2016-12-07 07:05] LABS: AUTOMATED NEUTROPHIL # 3.3 TH/MM3 (1.8-7.7); BASOPHIL % 0.5 % (0.0-2.0); EOSINOPHIL # 0.2 TH/MM3 (0-0.4); EOSINOPHIL % 3.1 % (0.0-4.0); HEMATOCRIT 31.8 % (35.0-46.0); HEMO FLAGS DIFF FINAL; LYMPH % 19.7 % (9.0-44.0); MEAN CORPUSCULAR HEMOGLOBIN 30.5 PG (27.0-34.0); MEAN CORPUSCULAR HGB CONC 33.5 % (32.0-36.0); MONO % 9.1 % (0.0-8.0); NEUT % 67.6 % (16.0-70.0); PLATELET COUNT 234 TH/MM3 (150-450); RED BLOOD COUNT 3.49 MIL/MM3 (4.00-5.30); RED CELL DISTRIBUTION WIDTH 15.8 % (11.6-17.2); WHITE BLOOD COUNT 4.8 TH/MM3 (4.0-11.0)
[2016-12-07 07:35] LABS: BICARBONATE 23.9 MEQ/L (21.0-32.0); POTASSIUM 4.4 MEQ/L (3.5-5.1)
[2016-12-07] MEDS: CALCIUM CARBONATE 500 MG CHEWABLE TAB CHEW SCH ×3 (09:00→21:00)
[2016-12-07] MEDS: DOCUSATE SODIUM 50 MG/SENNA 8.6 MG TAB PO SCH ×2 (09:00→21:00)
[2016-12-07] MEDS: ENOXAPARIN SODIUM 30 MG/0.3 ML SYRINGE SQ SCH (09:09)
[2016-12-07] MEDS: levETIRAcetam 500 MG TAB PO SCH ×2 (09:10→21:29)
[2016-12-07] MEDS: ATORVASTATIN 80 MG TAB PO SCH (09:10)
[2016-12-07] MEDS: SODIUM CHLORIDE 0.9% FLUSH 10 ML FLUSH IV FLUSH SCH ×2 (09:10→21:29)
[2016-12-07] MEDS: FLUoxetine HCL 10 MG CAP PO SCH (09:10)
[2016-12-07] MEDS: PHENYTOIN SODIUM 100 MG CAP PO SCH ×2 (09:10→21:30)
--- NOTE | 2016-12-07 14:07 | HHI.PR ---
Subjective Remarks Follow-up postop, anemia, and acute renal failure. Patient only urinated 150 cc over the entire shift. She had no complaints. Denied chest pain, shortness breathing, palpitation, lightheadedness dizziness. Patient stated that she is eating well. She is requesting for Glucerna. Objective Vitals Vital Signs Date Time Temp Pulse Resp B/P Pulse Ox O2 Delivery O2 Flow Rate FiO2 12/07/16 09:23 96 21 12/07/16 07:00 Room Air 12/07/16 06:00 100 8 151/79 97 12/07/16 06:00 100 12/07/16 05:00 95 12/07/16 05:00 95 10 136/72 98 12/07/16 04:00 98.1 92 10 119/61 98 12/07/16 04:00 92 12/07/16 03:00 92 10 129/75 99 12/07/16 03:00 92 12/07/16 02:00 92 12/07/16 02:00 92 8 130/71 98 12/07/16 01:00 94 9 126/69 98 12/07/16 01:00 94 12/07/16 00:00 100 12/07/16 00:00 98.0 100 10 159/82 98 12/06/16 23:00 101 12/06/16 23:00 101 6 132/72 96 12/06/16 22:00 101 10 108/56 95 12/06/16 22:00 101 12/06/16 21:23 10 12/06/16 21:00 102 12/06/16 21:00 102 11 172/85 100 12/06/16 20:48 99 21 12/06/16 20:00 96 12/06/16 20:00 98.1 96 10 115/64 95 12/06/16 19:00 96 Room Air 12/06/16 19:00 100 9 123/69 97 12/06/16 18:22 99 11 171/96 98 12/06/16 18:00 101 6 194/109 98 12/06/16 17:00 101 9 146/77 97 12/06/16 16:00 97.8 103 9 137/74 96 12/06/16 15:00 93 10 126/63 95 I/O 6/26/17 6/26/17 12/06/16 12/07/16 12/07/16 12/07/16 06:59 14:59 22:59 06:59 14:59 22:59 Intake Total 721 ml 400 ml Output Total 250 ml 1250 ml 450 ml 175 ml Balance 471 ml -850 ml -450 ml -175 ml Intake Oral 400 ml IV Total 721 ml Output Urine Total 250 ml 1250 ml 450 ml 175 ml # Bowel Movements 0 1 0 0 Result Diagram: 12/07/1652512/07/16523 Imaging GENERAL: in NAD SKIN: Warm and dry. HEAD: Normocephalic. EYES: No scleral icterus. No injection or drainage. NECK: Supple, trachea midline. No JVD or lymphadenopathy. CARDIOVASCULAR: Regular rate and rhythm without murmurs, gallops, or rubs. RESPIRATORY: Breath sounds equal bilaterally. No accessory muscle use. GASTROINTESTINAL: Abdomen soft, non-tender, nondistended. MUSCULOSKELETAL: No cyanosis, +edema. BACK: Nontender without obvious deformity. No CVA tenderness. Objective Remarks Exr dressing in place. patient has mild to moderate serosang drainage distal/ posterior. Minimal swelling to the right foot and lower extremity. Patient has good sensation to light touch about the right foot and toes. EHL/TA/G intact. 2+ pedal pulse. Calf is soft and nontender. Medications and IVs Current Medications Acetaminophen/ Hydrocodone Bitart ([place] 5-325 Mg) 1 tab ONCE ONCE PO Last administered on 12/02/16 18:27; Start 12/02/16 at 18:15; Stop 12/02/16 at 18:16 ; Status DC Sodium Chloride (NS Flush) 2 ml UNSCH PRN IV FLUSH FLUSH AFTER USING IV ACCESS Last administered on 12/02/16 19:20; Start 12/02/16 at 18:30; Stop 12/02/16 at 20:10; Status DC Morphine Sulfate (Morphine Inj) 6 mg ONCE ONCE IV PUSH Last administered on 19:20; Start 12/02/16 at 19:15; Stop 12/02/16 at 19:16; Status DC Sodium Chloride (NS Flush) 2 ml UNSCH PRN IV FLUSH FLUSH AFTER USING IV ACCESS ; Start 12/02/16 at 20:00; Stop 12/03/16 at 16:13; Status DC Sodium Chloride (NS Flush) 2 ml BID IV FLUSH Last administered on 12/03/16 09: 09; Start 12/02/16 at 21:00; Stop 12/03/16 at 16:13; Status DC Naloxone HCl (Narcan Inj) 0.4 mg UNSCH PRN IV SEE LABEL COMMENTS; Start at 20:00 Morphine Sulfate (Morphine Inj) 2 mg Q3H PRN IV PUSH pain >5 Last administered on 12/03/16 09:09; Start 12/02/16 at 20:00; Stop 12/03/16 at 16:16; Status DC Dextrose (D50w (Vial) Inj) 50 ml UNSCH PRN IV HYPOGLYCEMIA-SEE COMMENTS; Start 12/02/16 at 20:15; Stop 12/03/16 at 16:12; Status DC Glucagon (Glucagon Inj) 1 mg UNSCH PRN OTHER HYPOGLYCEMIA-SEE COMMENTS; Start 12/02/16 at 20:15; Stop 12/03/16 at 16:12; Status DC Atorvastatin Calcium (Lipitor) 80 mg DAILY PO Last administered on 12/07/16 09 :10; Start 12/03/16 at 09:00 Clonidine (Catapres) 0.1 mg DAILY PO Last administered on 12/03/16 09:08; Start 12/03/16 at 09:00; Stop 12/04/16 at 12:20; Status DC Fluoxetine HCl (PROzac) 10 mg DAILY PO Last administered on 12/07/16 09:10; Start 12/03/16 at 09:00 Levetriacetam (Keppra) 500 mg BID PO Last administered on 12/07/16 09:10; Start 12/02/16 at 21:00 Phenytoin (Dilantin) 100 mg BID PO Last administered on 12/07/16 09:10; Start 12/02/16 at 21:00 Dextrose (D50w (Vial) Inj) 50 ml UNSCH PRN IV HYPOGLYCEMIA-SEE COMMENTS; Start 12/02/16 at 21:15; Stop 12/03/16 at 21:36; Status DC Glucagon (Glucagon Inj) 1 mg UNSCH PRN OTHER HYPOGLYCEMIA-SEE COMMENTS; Start 12/02/16 at 21:15; Stop 12/03/16 at 21:36; Status DC Insulin Aspart 1 1 ACHS SLIDING SCALE SQ ; Start 12/03/16 at 07:00; Stop at 07:00; Status DC Lactated Ringer's 1,000 ml @ 30 mls/hr Q24H PRN IV SEE LABEL COMMENTS; Start at 21:45; Stop 12/04/16 at 12:25; Status DC Sodium Chloride (NS 500 ml Inj) 500 ml @ 30 mls/hr [id number] PRN IV SEE LABEL COMMENTS; Start 12/02/16 at 21:45; Stop 12/04/16 at 12:25; Status DC Metoprolol Tartrate (Lopressor) 25 mg [employer] AGENT PRN PO SEE LABEL COMMENTS; Start 12/02/16 at 21:45; Stop 12/05/16 at 21:44; Status DC Povidone Iodine (Betadine 5% Antisepsis Kit) 1 applic [employer] PRN EACH NARE SEE LABEL COMMENTS; Start 12/02/16 at 21:45; Stop 12/05/16 at 21:44; Status DC Chlorhexidine Gluconate (Chlorhexidine 2% Cloth) 3 pack [employer] PRN TOPICAL SEE LABEL COMMENTS; Start 12/02/16 at 21:45; Stop 12/04/16 at 12:27; Status DC Insulin Human Regular (NovoLIN R INJ) See Protocol Table ... [employer] AGENT PRN SQ SEE PROTOCOL TABLE Last administered on 12/03/16t 12:54; Start 12/02/16 at 21:45 ; Stop 12/04/16 at 12:27; Status DC Acetaminophen (Ofirmev Inj) 1,000 mg STK-MED ONCE IV ; Start 12/03/16 at 13:41; Stop 12/03/16 at 13:42; Status DC Midazolam HCl (Versed Inj) 2 mg STK-MED ONCE .ROUTE ; Start 12/03/16 at 13:41; Stop 12/03/16 at 13:42; Status DC Dexamethasone Sodium Phosphate (Decadron Inj) 4 mg STK-MED ONCE .ROUTE ; Start 12/03/16 at 13:41; Stop 12/03/16 at 13:42; Status DC Famotidine (Pepcid Inj) 20 mg STK-MED ONCE .ROUTE ; Start 12/03/16 at 13:42; Stop 12/03/16 at 13:43; Status DC Vancomycin HCl (Vancomycin Inj) 1,000 mg STK-MED ONCE .ROUTE Last administered on 12/03/16 14:07; Start 12/03/16 at 14:01; Stop 12/03/16 at 14:02; Status DC Clindamycin Phosphate (Cleocin Inj) 600 mg STK-MED ONCE .ROUTE Last administered on 12/03/16 14:11; Start 12/03/16 at 14:01; Stop 12/03/16 at 14:02 ; Status DC Gentamicin Sulfate (Gentamicin Inj) 240 mg STK-MED ONCE .ROUTE Last administered on 12/03/16 14:19; Start 12/03/16 at 14:01; Stop 12/03/16 at 14:02 ; Status DC Sodium Chloride (NS Flush) 2 ml UNSCH PRN IV FLUSH FLUSH AFTER USING IV ACCESS ; Start 12/03/16 at 16:00 Sodium Chloride 2 ml 2 ml BID IV FLUSH Last administered on 12/07/16 09:10; Start 12/03/16 at 21:00 Cefazolin Sodium 1000 mg/Sodium Chloride 100 ml @ 200 mls/hr Q6H IV Last administered on 12/04/16 06:34; Start 12/03/16 at 18:00; Stop 12/04/16 at 06:29 ; Status DC Vancomycin HCl/ Sodium Chloride (Vancomycin Inj/ NS 250 ml Inj) 250 ml @ 250 mls/hr Q12H IV Last administered on 12/04/16 17:10; Start 12/04/16 at 02:00; Stop 12/04/16 at 14:59; Status DC Miscellaneous Information (Post-op Orders (for Pharmacy)) STAT ONCE XX ; Start 12/03/16 at 16:00; Stop 12/03/16 at 16:20; Status DC Enoxaparin Sodium (Lovenox Inj) 30 mg Q12H SQ Last administered on 12/05/16 04 :23; Start 12/04/16 at 04:00; Stop 12/05/16 at 09:52; Status DC Miscellaneous Information UNSCH PRN XX SEE LABEL COMMENTS; Start 12/03/16 at 16:00 Morphine Sulfate (Morphine Inj) 5 mg Q3H PRN IV PUSH Pain >7 when off [employer] Last administered on 12/06/16 20:54; Start 12/03/16 at 16:00 Oxycodone/ Acetaminophen (Percocet 5-325 Mg) 1 tab Q4H PRN PO PAIN LESS THAN 5 ON SCALE Last administered on 12/06/16 11:57; Start 12/03/16 at 16:00 Oxycodone/ Acetaminophen (Percocet 5-325 Mg) 2 tab Q4H PRN PO PAIN SCALE 5 TO 10 Last administered on 12/04/16 04:06; Start 12/03/16 at 16:00 Ketorolac Tromethamine (Toradol Inj) 15 mg Q6H IVP Last administered on 04:23; Start 12/03/16 at 18:00; Stop 12/05/16 at 12:01; Status DC Promethazine HCl (Phenergan) 25 mg Q4H PRN PO NAUSEA OR VOMITING; Start at 16:00 Ondansetron HCl (Zofran Inj) 4 mg Q6H PRN IVP NAUSEA OR VOMITING; Start at 16:00 Zolpidem Tartrate (Ambien) 5 mg HS PRN PO SLEEP; Start 12/03/16 at 16:00 Senna/Docusate Sodium (Rivka-Colace) 1 tab BID PO Last administered on 09:10; Start 12/03/16 at 21:00 Magnesium Hydroxide (Milk Of Magnesia Liq) 30 ml Q12H PRN PO MILD - MODERATE CONSTIPATION; Start 12/03/16 at 16:00 Sennosides (Senokot) 17.2 mg Q12H PRN PO MODERATE - SEVERE CONSTIPATION; Start 12/03/16 at 16:00 Bisacodyl (Dulcolax Supp) 10 mg DAILY PRN RECTAL SEVERE CONSITIPATION; Start at 16:00 Lactulose (Lactulose Liq) 30 ml DAILY PRN PO SEVERE CONSITIPATION; Start at 16:00 Fentanyl Citrate (fentaNYL INJ) 250 mcg STK-MED ONCE .ROUTE ; Start 12/03/16 at 16:12; Stop 12/03/16 at 16:13; Status DC Miscellaneous Information ALL NURSING DEPARTME... UNSCH PRN .XX SEE LABEL COMMENTS; Start 12/03/16 at 18:45; Stop 12/04/16 at 18:44; Status DC Dextrose (D50w (Vial) Inj) 25 ml UNSCH PRN IV PUSH HYPOGLYCEMIA - SEE COMMENTS ; Start 12/03/16 at 21:45; Stop 12/04/16 at 12:27; Status DC Glucagon (Glucagon Inj) 1 mg UNSCH PRN OTHER HYPOGLYCEMIA-SEE COMMENTS; Start 12/03/16 at 21:45; Stop 12/04/16 at 12:27; Status DC Insulin Aspart 1 1 ACHS SLIDING SCALE SQ Last administered on 12/04/16 10:33 ; Start 12/03/16 at 21:30; Stop 12/04/16 at 12:20; Status DC Sodium Chloride (NS 1000 ml Inj) 1,000 ml @ 100 mls/hr Q10H IV ; Start at 07:00; Stop 12/04/16 at 12:26; Status DC Insulin Human Regular 10 units 10 units ONCE ONCE IV PUSH Last administered on 12/04/16 07:15; Start 12/04/16 at 07:15; Stop 12/04/16 at 07:16; Status DC Sodium Chloride (NS 500 ml Inj) 500 ml @ 500 mls/hr BOLUS ONCE IV Last administered on 12/04/16 07:37; Start 12/04/16 at 07:30; Stop 12/04/16 at 08:29 ; Status DC Miscellaneous Information Patient in critical care unit? Ass... [id number] .XX Last administered on 12/04/16 08:30; Start 12/04/16 at 08:30 Chlorhexidine Gluconate (Chlorhexidine 2% Cloth) 3 pack DAILY@04 TOPICAL Last administered on 12/07/16 04:00; Start 12/05/16 at 04:00; Stop 12/09/16 at 04:01 Chlorhexidine Gluconate 3 pack 3 pack UNSCH PRN TOPICAL HYGIENIC CARE; Start at 08:30; Stop 12/09/16 at 08:16 Sodium Chloride 1,000 ml @ 999 mls/hr BOLUS ONCE IV Last administered on 12/04 10:20; Start 12/04/16 at 10:00; Stop 12/04/16 at 11:00; Status DC Sodium Chloride (NS 1000 ml Inj) 1,000 ml @ 100 mls/hr Q10H IV ; Start at 10:00; Stop 12/04/16 at 12:26; Status DC Insulin Detemir (Levemir Inj) 10 units BID SQ ; Start 12/04/16 at 21:00; Stop at 21:00; Status DC Insulin Detemir (Levemir Inj) 10 units ONCE ONCE SQ ; Start 12/04/16 at 11:15; Stop 12/04/16 at 11:22; Status DC Calcium Carbonate (Tums Chew) 500 mg ONCE ONCE CHEW ; Start 12/04/16 at 11:15; Stop 12/04/16 at 11:22; Status DC Calcium Carbonate (Tums Chew) 500 mg Q12HR CHEW Last administered on 12/06/16 20:38; Start 12/04/16 at 21:00 Dextrose (D50w (Vial) Inj) 50 ml UNSCH PRN IV HYPOGLYCEMIA-SEE COMMENTS Last administered on 12/04/16 19:41; Start 12/04/16 at 12:15; Stop 12/05/16 at 09:28 ; Status DC Glucagon (Glucagon Inj) 1 mg UNSCH PRN OTHER HYPOGLYCEMIA-SEE COMMENTS; Start 12/04/16 at 12:15; Stop 12/05/16 at 09:28; Status DC Insulin Human Regular 1 1 Q4H SQ Last administered on 12/05/16 04:23; Start at 13:00; Stop 12/05/16 at 09:18; Status DC Sodium Chloride 1,000 ml @ 999 mls/hr BOLUS ONCE IV Last administered on 12/04 13:15; Start 12/04/16 at 12:15; Stop 12/04/16 at 13:15; Status DC Sodium Chloride (NS 1000 ml Inj) 1,000 ml @ 100 mls/hr Q10H IV Last administered on 12/06/16 06:27; Start 12/04/16 at 12:15; Stop 12/06/16 at 10:01 ; Status DC Sodium Polystyrene Sulfonate (Kayexalate Liq) 30 gm ONCE ONCE PO Last administered on 12/04/16 13:15; Start 12/04/16 at 12:15; Stop 12/04/16 at 12:22 ; Status DC Albuterol/ Ipratropium (Duoneb Neb) 1 ampule Q4HR NEB NEB Last administered on 12/07/16 11:23; Start 12/04/16 at 16:00 Albuterol/ Ipratropium 1 ampule 1 ampule Q2HR NEB PRN NEB SHORTNESS OF BREATH; Start 12/04/16 at 12:15 Calcium Gluconate/ Sodium Chloride (Calcium Gluconate Inj/NS Inj) 110 ml @ 110 mls/hr ONCE ONCE IV Last administered on 12/05/16 10:22; Start 12/05/16 at 10 :00; Stop 12/05/16 at 10:59; Status DC Dextrose (D50w (Vial) Inj) 50 ml UNSCH PRN IV HYPOGLYCEMIA-SEE COMMENTS; Start 12/05/16 at 09:30 Glucagon (Glucagon Inj) 1 mg UNSCH PRN OTHER HYPOGLYCEMIA-SEE COMMENTS; Start 12/05/16 at 09:30 Insulin Human Regular (NovoLIN R SUPPLEMENTAL SCALE) 1 Q4H SQ Last administered on 12/06/16 09:25; Start 12/05/16 at 10:00; Stop 12/06/16 at 15:03 ; Status DC Enoxaparin Sodium (Lovenox Inj) 30 mg Q24H SQ Last administered on 12/07/16 09 :09; Start 12/06/16 at 09:00 Ketorolac Tromethamine (Toradol Inj) 15 mg Q6H IVP Last administered on 16:12; Start 12/05/16 at 16:15; Stop 12/05/16 at 16:16; Status DC Clonidine (Catapres) 0.1 mg Q8HR PO Last administered on 12/07/16 12:33; Start 12/06/16 at 09:45 Bumetanide (Bumex Inj) 1 mg ONCE ONCE IV PUSH Last administered on 12/06/16 10:28; Start 12/06/16 at 09:45; Stop 12/06/16 at 10:04; Status DC Hydralazine HCl (Apresoline Inj) 10 mg Q6H PRN IV PUSH SYS BP GREATER THAN 160 MMHG Last administered on 12/06/16 18:24; Start 12/06/16 at 10:15 Insulin Human Regular (NovoLIN R SUPPLEMENTAL SCALE) 1 ACHS SLIDING SCALE SQ Last administered on 12/07/16t 11:00; Start 12/06/16 at 16:00 A/P Problem List: (1) Fibula fracture ICD Code: S82.409A Status: Acute (2) Tibia fracture ICD Code: S82.209A Status: Acute Assessment and Plan Respiratory insufficiency -Transferred to [facility]. Most likely secondary to over sedation from narcotics. -Resolved. Acute renal failure. improving -Initially patient was given IV fluids in which renal function was improving. Patient then became volume overloaded was given a dose of Bumex yesterday. -She has decreased urine output today so will give another dose of Bumex. Will also get a BNP. -Continue to monitor. Avoid nephrotoxins. T2 DM, uncontrolled -Better controlled. -She is on insulin sliding scale. right closed tibial fracture status post yuri fixation on December 03. -Being managed by orthopedics. Anemia -Secondary to blood loss due to surgery. -Status post transfusion with 2 PRBC -Responded appropriately to transfusion. -Continue to trend. -GI was consulted due to anemia. Per GI she had colonoscopy and endoscopy done 2 months ago which was normal. She had no signs of any GI bleed. GI signed off. History of seizure disorder and CVA/history of lupus/hypertension -Continue home medication. -On Keppra 500mg BID, Dilantin 100mg BID, Dilantin level:1.6 -On clonidine. On Protonix 40 mg IV daily for GI prophylaxis. DVT prophylaxis with SCDs and Lovenox 30mg BID per Ortho Discharge Planning Patient can be transferred out of the C to the ortho floor. Gina Rose MD Dec 07, 2016 14:07 Endo: On SSI medium scale with Accu-Chek q. 4-hour Patient is allergic to Levemir Heme: Monitor CBC,s/p transfuse 2units PRBC 12/05 Check Hemoccult stool, GI is following. GI prophylaxis with Protonix 40 mg daily and DVT prophylaxis with SCDs and Lovenox 30mg BID per Ortho Will sign off and transfer care to [facility] Gina Rose MD Dec 07, 2016 14:07
[2016-12-07] MEDS ORDERED: BUMETANIDE INJ 1 MG/4 ML VIAL IV PUSH ONE (14:30)
[2016-12-07] MEDS: hydrALAZINE HCL 20 MG/ML VIAL IV PUSH PRN (16:00)
[2016-12-07] MEDS: MORPHINE SULFATE 8 MG/ML INJ IV PUSH PRN (17:21)
[2016-12-08] VITALS (7 sets, daily range): BP systolic 129–161; BP diastolic 71–96; PULSE 95–106; RESP 17–18; TEMP 97–97.9; O2SAT 94–98
[2016-12-08] MEDS: RESP: ALBUTEROL 2.5 MG/IPRATROPIUM 0.5 MG NEB (SCH) NEB ×4 (03:28→15:36)
[2016-12-08] MEDS: cloNIDine HCL 0.1 MG TAB PO SCH ×3 (05:50→22:21)
[2016-12-08] MEDS: INSULIN NovoLIN REGULAR SUPPLEMENTAL SCALE SQ SCH ×4 (08:03→22:26)
[2016-12-08 08:08] LABS: HEMATOCRIT 32.1 % (35.0-46.0); MEAN CELL VOLUME 92.5 FL (80.0-100.0); MEAN CORPUSCULAR HEMOGLOBIN 30.6 PG (27.0-34.0); PLATELET COUNT 228 TH/MM3 (150-450); RED BLOOD COUNT 3.47 MIL/MM3 (4.00-5.30); RED CELL DISTRIBUTION WIDTH 16.1 % (11.6-17.2); REVIEW FLAG FINAL; WHITE BLOOD COUNT 4.4 TH/MM3 (4.0-11.0)
[2016-12-08 08:33] LABS: BICARBONATE 21.2 MEQ/L (21.0-32.0); MAGNESIUM 1.7 MG/DL (1.5-2.5); POTASSIUM 4.8 MEQ/L (3.5-5.1)
--- NOTE | 2016-12-08 09:42 | HHI.PR ---
Subjective Remarks f/u for fracture, ARF, and uncontrolled DM patient had no complaints. She stated she wants to keep meade in. good UOP. patient asking to speak to Orthopedic surgeon. she remains afebrile. denied any pain. Objective Vitals Vital Signs Date Time Temp Pulse Resp B/P Pulse Ox O2 Delivery O2 Flow Rate FiO2 12/08/16 07:34 97.8 95 18 129/72 95 12/08/16 07:27 Room Air 12/08/16 04:25 97.6 106 17 161/78 98 12/08/16 00:15 97.9 103 17 152/71 95 12/07/16 21:11 98 21 12/07/16 20:00 97.6 105 17 131/76 97 12/07/16 17:30 16 12/07/16 16:12 98.3 102 11 133/71 96 12/07/16 16:00 97.4 68 16 143/74 96 12/07/16 15:34 101 6 169/98 98 12/07/16 15:00 98 8 130/74 96 12/07/16 14:01 109 13 187/109 99 12/07/16 14:00 110 13 186/100 98 12/07/16 13:00 110 6 137/89 98 12/07/16 12:00 98.1 112 10 131/84 98 12/07/16 11:02 109 6 162/95 99 12/07/16 11:00 108 10 176/110 99 12/07/16 10:03 105 6 165/87 98 12/07/16 10:01 108 8 191/86 97 I/O 12/07/16 12/07/16 12/07/16 12/08/16 12/08/16 12/08/16 07:00 15:00 23:00 07:00 15:00 23:00 Intake Total 600 ml 480 ml 120 ml Output Total 175 ml 450 ml 625 ml 150 ml Balance -175 ml 150 ml -145 ml -30 ml Intake Oral 600 ml 480 ml 120 ml Output Urine Total 175 ml 450 ml 625 ml 150 ml # Bowel Movements 0 0 0 0 Result Diagram: 12/08/16 0747 12/08/1647 Objective Remarks GENERAL: in NAD CARDIOVASCULAR: Regular rate and rhythm without murmurs, gallops, or rubs. RESPIRATORY: Breath sounds equal bilaterally. No accessory muscle use. GASTROINTESTINAL: Abdomen soft, non-tender, nondistended. Ext dressing in place Patient has good sensation to light touch about the right foot and toes. EHL/TA/G intact. 2+ pedal pulse. Calf is soft and nontender. Medications and IVs Current Medications Acetaminophen/ Hydrocodone Bitart (Hollister 5-325 Mg) 1 tab ONCE ONCE PO Last administered on 12/02/16 18:27; Start 12/02/16 at 18:15; Stop 12/02/16 at 18:16 ; Status DC Sodium Chloride (NS Flush) 2 ml UNSCH PRN IV FLUSH FLUSH AFTER USING IV ACCESS Last administered on 12/02/16 19:20; Start 12/02/16 at 18:30; Stop 12/02/16 at 20:10; Status DC Morphine Sulfate (Morphine Inj) 6 mg ONCE ONCE IV PUSH Last administered on 19:20; Start 12/02/16 at 19:15; Stop 12/02/16 at 19:16; Status DC Sodium Chloride (NS Flush) 2 ml UNSCH PRN IV FLUSH FLUSH AFTER USING IV ACCESS ; Start 12/02/16 at 20:00; Stop 12/03/16 at 16:13; Status DC Sodium Chloride (NS Flush) 2 ml BID IV FLUSH Last administered on 12/03/16 09: 09; Start 12/02/16 at 21:00; Stop 12/03/16 at 16:13; Status DC Naloxone HCl (Narcan Inj) 0.4 mg UNSCH PRN IV SEE LABEL COMMENTS; Start at 20:00 Morphine Sulfate (Morphine Inj) 2 mg Q3H PRN IV PUSH pain >5 Last administered on 12/03/16 09:09; Start 12/02/16 at 20:00; Stop 12/03/16 at 16:16; Status DC Dextrose (D50w (Vial) Inj) 50 ml UNSCH PRN IV HYPOGLYCEMIA-SEE COMMENTS; Start 12/02/16 at 20:15; Stop 12/03/16 at 16:12; Status DC Glucagon (Glucagon Inj) 1 mg UNSCH PRN OTHER HYPOGLYCEMIA-SEE COMMENTS; Start 12/02/16 at 20:15; Stop 12/03/16 at 16:12; Status DC Atorvastatin Calcium (Lipitor) 80 mg DAILY PO Last administered on 12/07/16 09 :10; Start 12/03/16 at 09:00 Clonidine (Catapres) 0.1 mg DAILY PO Last administered on 12/03/16 09:08; Start 12/03/16 at 09:00; Stop 12/04/16 at 12:20; Status DC Fluoxetine HCl (PROzac) 10 mg DAILY PO Last administered on 12/07/16 09:10; Start 12/03/16 at 09:00 Levetriacetam (Keppra) 500 mg BID PO Last administered on 12/07/16 21:29; Start 12/02/16 at 21:00 Phenytoin (Dilantin) 100 mg BID PO Last administered on 12/07/16 21:30; Start 12/02/16 at 21:00 Dextrose (D50w (Vial) Inj) 50 ml UNSCH PRN IV HYPOGLYCEMIA-SEE COMMENTS; Start 12/02/16 at 21:15; Stop 12/03/16 at 21:36; Status DC Glucagon (Glucagon Inj) 1 mg UNSCH PRN OTHER HYPOGLYCEMIA-SEE COMMENTS; Start 12/02/16 at 21:15; Stop 12/03/16 at 21:36; Status DC Insulin Aspart 1 1 ACHS SLIDING SCALE SQ ; Start 12/03/16 at 07:00; Stop at 07:00; Status DC Lactated Ringer's 1,000 ml @ 30 mls/hr Q24H PRN IV SEE LABEL COMMENTS; Start at 21:45; Stop 12/04/16 at 12:25; Status DC Sodium Chloride (NS 500 ml Inj) 500 ml @ 30 mls/hr [id number] PRN IV SEE LABEL COMMENTS; Start 12/02/16 at 21:45; Stop 12/04/16 at 12:25; Status DC Metoprolol Tartrate (Lopressor) 25 mg OAKES MACHINE OPERATOR PRN PO SEE LABEL COMMENTS; Start 12/02/16 at 21:45; Stop 12/05/16 at 21:44; Status DC Povidone Iodine (Betadine 5% Antisepsis Kit) 1 applic OAKES MACHINE OPERATOR PRN EACH NARE SEE LABEL COMMENTS; Start 12/02/16 at 21:45; Stop 12/05/16 at 21:44; Status DC Chlorhexidine Gluconate (Chlorhexidine 2% Cloth) 3 pack OAKES MACHINE OPERATOR PRN TOPICAL SEE LABEL COMMENTS; Start 12/02/16 at 21:45; Stop 12/04/16 at 12:27; Status DC Insulin Human Regular (NovoLIN R INJ) See Protocol Table ... OAKES MACHINE OPERATOR PRN SQ SEE PROTOCOL TABLE Last administered on 12/03/16 12:54; Start 12/02/16 at 21:45 ; Stop 12/04/16 at 12:27; Status DC Acetaminophen (Ofirmev Inj) 1,000 mg STK-MED ONCE IV ; Start 12/03/16 at 13:41; Stop 12/03/16 at 13:42; Status DC Midazolam HCl (Versed Inj) 2 mg STK-MED ONCE .ROUTE ; Start 12/03/16 at 13:41; Stop 12/03/16 at 13:42; Status DC Dexamethasone Sodium Phosphate (Decadron Inj) 4 mg STK-MED ONCE .ROUTE ; Start 12/03/16 at 13:41; Stop 12/03/16 at 13:42; Status DC Famotidine (Pepcid Inj) 20 mg STK-MED ONCE .ROUTE ; Start 12/03/16 at 13:42; Stop 12/03/16 at 13:43; Status DC Vancomycin HCl (Vancomycin Inj) 1,000 mg STK-MED ONCE .ROUTE Last administered on 12/03/16 14:07; Start 12/03/16 at 14:01; Stop 12/03/16 at 14:02; Status DC Clindamycin Phosphate (Cleocin Inj) 600 mg STK-MED ONCE .ROUTE Last administered on 12/03/16 14:11; Start 12/03/16 at 14:01; Stop 12/03/16 at 14:02 ; Status DC Gentamicin Sulfate (Gentamicin Inj) 240 mg STK-MED ONCE .ROUTE Last administered on 12/03/16 14:19; Start 12/03/16 at 14:01; Stop 12/03/16 at 14:02 ; Status DC Sodium Chloride (NS Flush) 2 ml UNSCH PRN IV FLUSH FLUSH AFTER USING IV ACCESS ; Start 12/03/16 at 16:00 Sodium Chloride 2 ml 2 ml BID IV FLUSH Last administered on 12/07/16 21:29; Start 12/03/16 at 21:00 Cefazolin Sodium 1000 mg/Sodium Chloride 100 ml @ 200 mls/hr Q6H IV Last administered on 12/04/16 06:34; Start 12/03/16 at 18:00; Stop 12/04/16 at 06:29 ; Status DC Vancomycin HCl/ Sodium Chloride (Vancomycin Inj/ NS 250 ml Inj) 250 ml @ 250 mls/hr Q12H IV Last administered on 12/04/16 17:10; Start 12/04/16 at 02:00; Stop 12/04/16 at 14:59; Status DC Miscellaneous Information (Post-op Orders (for Pharmacy)) STAT ONCE XX ; Start 12/03/16 at 16:00; Stop 12/03/16 at 16:20; Status DC Enoxaparin Sodium (Lovenox Inj) 30 mg Q12H SQ Last administered on 12/05/16 04 :23; Start 12/04/16 at 04:00; Stop 12/05/16 at 09:52; Status DC Miscellaneous Information UNSCH PRN XX SEE LABEL COMMENTS; Start 12/03/16 at 16:00 Morphine Sulfate (Morphine Inj) 5 mg Q3H PRN IV PUSH Pain >7 when off PROJECTOR OPERATOR Last administered on 12/07/16 17:21; Start 12/03/16 at 16:00 Oxycodone/ Acetaminophen (Percocet 5-325 Mg) 1 tab Q4H PRN PO PAIN LESS THAN 5 ON SCALE Last administered on 12/06/16 11:57; Start 12/03/16 at 16:00 Oxycodone/ Acetaminophen (Percocet 5-325 Mg) 2 tab Q4H PRN PO PAIN SCALE 5 TO 10 Last administered on 12/04/16 04:06; Start 12/03/16 at 16:00 Ketorolac Tromethamine (Toradol Inj) 15 mg Q6H IVP Last administered on 04:23; Start 12/03/16 at 18:00; Stop 12/05/16 at 12:01; Status DC Promethazine HCl (Phenergan) 25 mg Q4H PRN PO NAUSEA OR VOMITING; Start at 16:00 Ondansetron HCl (Zofran Inj) 4 mg Q6H PRN IVP NAUSEA OR VOMITING; Start at 16:00 Zolpidem Tartrate (Ambien) 5 mg HS PRN PO SLEEP; Start 12/03/16 at 16:00 Senna/Docusate Sodium (Rivka-Colace) 1 tab BID PO Last administered on 09:10; Start 12/03/16 at 21:00 Magnesium Hydroxide (Milk Of Magnesia Liq) 30 ml Q12H PRN PO MILD - MODERATE CONSTIPATION; Start 12/03/16 at 16:00 Sennosides (Senokot) 17.2 mg Q12H PRN PO MODERATE - SEVERE CONSTIPATION; Start 12/03/16 at 16:00 Bisacodyl (Dulcolax Supp) 10 mg DAILY PRN RECTAL SEVERE CONSITIPATION; Start at 16:00 Lactulose (Lactulose Liq) 30 ml DAILY PRN PO SEVERE CONSITIPATION; Start at 16:00 Fentanyl Citrate (fentaNYL INJ) 250 mcg STK-MED ONCE .ROUTE ; Start 12/03/16 at 16:12; Stop 12/03/16 at 16:13; Status DC Miscellaneous Information ALL NURSING DEPARTME... UNSCH PRN .XX SEE LABEL COMMENTS; Start 12/03/16 at 18:45; Stop 12/04/16 at 18:44; Status DC Dextrose (D50w (Vial) Inj) 25 ml UNSCH PRN IV PUSH HYPOGLYCEMIA - SEE COMMENTS ; Start 12/03/16 at 21:45; Stop 12/04/16 at 12:27; Status DC Glucagon (Glucagon Inj) 1 mg UNSCH PRN OTHER HYPOGLYCEMIA-SEE COMMENTS; Start 12/03/16 at 21:45; Stop 12/04/16 at 12:27; Status DC Insulin Aspart 1 1 ACHS SLIDING SCALE SQ Last administered on 12/04/16 10:33 ; Start 12/03/16 at 21:30; Stop 12/04/16 at 12:20; Status DC Sodium Chloride (NS 1000 ml Inj) 1,000 ml @ 100 mls/hr Q10H IV ; Start at 07:00; Stop 12/04/16 at 12:26; Status DC Insulin Human Regular 10 units 10 units ONCE ONCE IV PUSH Last administered on 12/04/16 07:15; Start 12/04/16 at 07:15; Stop 12/04/16 at 07:16; Status DC Sodium Chloride (NS 500 ml Inj) 500 ml @ 500 mls/hr BOLUS ONCE IV Last administered on 12/04/16 07:37; Start 12/04/16 at 07:30; Stop 12/04/16 at 08:29 ; Status DC Miscellaneous Information Patient in critical care unit? Ass... [id number] .XX Last administered on 12/04/16 08:30; Start 12/04/16 at 08:30 Chlorhexidine Gluconate (Chlorhexidine 2% Cloth) 3 pack DAILY@04 TOPICAL Last administered on 12/07/16 04:00; Start 12/05/16 at 04:00; Stop 12/09/16 at 04:01 Chlorhexidine Gluconate 3 pack 3 pack UNSCH PRN TOPICAL HYGIENIC CARE; Start at 08:30; Stop 12/09/16 at 08:16 Sodium Chloride 1,000 ml @ 999 mls/hr BOLUS ONCE IV Last administered on 12/04 10:20; Start 12/04/16 at 10:00; Stop 12/04/16 at 11:00; Status DC Sodium Chloride (NS 1000 ml Inj) 1,000 ml @ 100 mls/hr Q10H IV ; Start at 10:00; Stop 12/04/16 at 12:26; Status DC Insulin Detemir (Levemir Inj) 10 units BID SQ ; Start 12/04/16 at 21:00; Stop at 21:00; Status DC Insulin Detemir (Levemir Inj) 10 units ONCE ONCE SQ ; Start 12/04/16 at 11:15; Stop 12/04/16 at 11:22; Status DC Calcium Carbonate (Tums Chew) 500 mg ONCE ONCE CHEW ; Start 12/04/16 at 11:15; Stop 12/04/16 at 11:22; Status DC Calcium Carbonate (Tums Chew) 500 mg Q12HR CHEW Last administered on 12/06/16 20:38; Start 12/04/16 at 21:00 Dextrose (D50w (Vial) Inj) 50 ml UNSCH PRN IV HYPOGLYCEMIA-SEE COMMENTS Last administered on 12/04/16 19:41; Start 12/04/16 at 12:15; Stop 12/05/16 at 09:28 ; Status DC Glucagon (Glucagon Inj) 1 mg UNSCH PRN OTHER HYPOGLYCEMIA-SEE COMMENTS; Start 12/04/16 at 12:15; Stop 12/05/16 at 09:28; Status DC Insulin Human Regular 1 1 Q4H SQ Last administered on 12/05/16 04:23; Start at 13:00; Stop 12/05/16 at 09:18; Status DC Sodium Chloride 1,000 ml @ 999 mls/hr BOLUS ONCE IV Last administered on 12/04 13:15; Start 12/04/16 at 12:15; Stop 12/04/16 at 13:15; Status DC Sodium Chloride (NS 1000 ml Inj) 1,000 ml @ 100 mls/hr Q10H IV Last administered on 12/06/16 06:27; Start 12/04/16 at 12:15; Stop 12/06/16 at 10:01 ; Status DC Sodium Polystyrene Sulfonate (Kayexalate Liq) 30 gm ONCE ONCE PO Last administered on 12/04/16 13:15; Start 12/04/16 at 12:15; Stop 12/04/16 at 12:22 ; Status DC Albuterol/ Ipratropium (Duoneb Neb) 1 ampule Q4HR NEB NEB Last administered on 12/07/16 11:23; Start 12/04/16 at 16:00 Albuterol/ Ipratropium 1 ampule 1 ampule Q2HR NEB PRN NEB SHORTNESS OF BREATH; Start 12/04/16 at 12:15 Calcium Gluconate/ Sodium Chloride (Calcium Gluconate Inj/NS Inj) 110 ml @ 110 mls/hr ONCE ONCE IV Last administered on 12/05/16 10:22; Start 12/05/16 at 10 :00; Stop 12/05/16 at 10:59; Status DC Dextrose (D50w (Vial) Inj) 50 ml UNSCH PRN IV HYPOGLYCEMIA-SEE COMMENTS; Start 12/05/16 at 09:30 Glucagon (Glucagon Inj) 1 mg UNSCH PRN OTHER HYPOGLYCEMIA-SEE COMMENTS; Start 12/05/16 at 09:30 Insulin Human Regular (NovoLIN R SUPPLEMENTAL SCALE) 1 Q4H SQ Last administered on 12/06/16 09:25; Start 12/05/16 at 10:00; Stop 12/06/16 at 15:03 ; Status DC Enoxaparin Sodium (Lovenox Inj) 30 mg Q24H SQ Last administered on 12/07/16 09 :09; Start 12/06/16 at 09:00 Ketorolac Tromethamine (Toradol Inj) 15 mg Q6H IVP Last administered on 16:12; Start 12/05/16 at 16:15; Stop 12/05/16 at 16:16; Status DC Clonidine (Catapres) 0.1 mg Q8HR PO Last administered on 12/08/16 05:50; Start 12/06/16 at 09:45 Bumetanide (Bumex Inj) 1 mg ONCE ONCE IV PUSH Last administered on 12/06/16 10:28; Start 12/06/16 at 09:45; Stop 12/06/16 at 10:04; Status DC Hydralazine HCl (Apresoline Inj) 10 mg Q6H PRN IV PUSH SYS BP GREATER THAN 160 MMHG Last administered on 12/07/16 16:00; Start 12/06/16 at 10:15 Insulin Human Regular (NovoLIN R SUPPLEMENTAL SCALE) 1 ACHS SLIDING SCALE SQ Last administered on 12/08/16 08:03; Start 12/06/16 at 16:00 Bumetanide (Bumex Inj) 1 mg ONCE ONCE IV PUSH Last administered on 12/07/16 15:18; Start 12/07/16 at 14:30; Stop 12/07/16 at 14:31; Status DC A/P Problem List: (1) Fibula fracture ICD Code: S82.409A Status: Acute (2) Tibia fracture ICD Code: S82.209A Status: Acute Assessment and Plan Respiratory insufficiency -Transfer[place] [facility] [place] Most likely secondary to over sedation from narcotics. -Resolved. Acute renal failure. improving -Initially patient was given IV fluids in which renal function was improving. she was given a dose of Bumex X 2. BNP mild elevated. -good UOP. -im suspected she has chronic renal disease from diabetes nephropathy. T2 DM, uncontrolled -She is on insulin sliding scale. -add levemir. right closed tibial fracture status post yuri fixation on December 03. -Being managed by orthopedics. Anemia -Secondary to blood loss due to surgery. -Status post transfusion with 2 PRBC -Responded appropriately to transfusion. -Continue to trend. -GI was consulted due to anemia. Per GI she had colonoscopy and endoscopy done 2 months ago which was normal. She had no signs of any GI bleed. GI signed off. History of seizure disorder and CVA/history of lupus/hypertension -Continue home medication. -On Keppra 500mg BID, Dilantin 100mg BID, Dilantin level:1.6 -On clonidine. On Protonix 40 mg IV daily for GI prophylaxis. DVT prophylaxis with SCDs and Lovenox 30mg BID per Ortho Discharge Planning d/w case management for placement. Difficult placement due to funding. Gina Rose MD Dec 08, 2016 09:42
[2016-12-08] MEDS ORDERED: INSULIN DETEMIR 100 UNITS/ML VIAL SQ SCH (09:45)
[2016-12-08] MEDS: levETIRAcetam 500 MG TAB PO SCH ×2 (09:57→22:21)
[2016-12-08] MEDS: CALCIUM CARBONATE 500 MG CHEWABLE TAB CHEW SCH ×2 (09:57→22:22)
[2016-12-08] MEDS: ATORVASTATIN 80 MG TAB PO SCH (09:57)
[2016-12-08] MEDS: SODIUM CHLORIDE 0.9% FLUSH 10 ML FLUSH IV FLUSH SCH ×2 (09:57→22:22)
[2016-12-08] MEDS: PHENYTOIN SODIUM 100 MG CAP PO SCH ×2 (09:58→22:21)
[2016-12-08] MEDS: ENOXAPARIN SODIUM 30 MG/0.3 ML SYRINGE SQ SCH (09:58)
[2016-12-08] MEDS: DOCUSATE SODIUM 50 MG/SENNA 8.6 MG TAB PO SCH ×2 (09:58→22:21)
[2016-12-08] MEDS: FLUoxetine HCL 10 MG CAP PO SCH (09:58)
[2016-12-08] MEDS: oxyCODONE/ACETAMINOPHEN 5 MG/325 MG TAB PO PRN (11:55)
[2016-12-09] VITALS (7 sets, daily range): BP systolic 116–178; BP diastolic 55–98; PULSE 95–102; RESP 17–18; TEMP 97.9–99; O2SAT 92–98
[2016-12-09] MEDS: CHLORHEXIDINE GLUCONATE 2 % 1 PACK (2 CLOTHS)(taper/protocol) TOPICAL SCH (02:09)
[2016-12-09] MEDS: cloNIDine HCL 0.1 MG TAB PO SCH ×3 (05:47→22:30)
[2016-12-09] MEDS: INSULIN NovoLIN REGULAR SUPPLEMENTAL SCALE SQ SCH ×4 (05:50→21:00)
[2016-12-09] MEDS: SODIUM CHLORIDE 0.9% FLUSH 10 ML FLUSH IV FLUSH SCH ×2 (10:38→22:30)
[2016-12-09] MEDS: FLUoxetine HCL 10 MG CAP PO SCH (10:38)
[2016-12-09] MEDS: ATORVASTATIN 80 MG TAB PO SCH (10:38)
[2016-12-09] MEDS: levETIRAcetam 500 MG TAB PO SCH ×2 (10:38→22:30)
[2016-12-09] MEDS: PHENYTOIN SODIUM 100 MG CAP PO SCH ×2 (10:39→22:30)
[2016-12-09] MEDS: DOCUSATE SODIUM 50 MG/SENNA 8.6 MG TAB PO SCH ×2 (10:39→21:00)
[2016-12-09] MEDS: CALCIUM CARBONATE 500 MG CHEWABLE TAB CHEW SCH ×2 (10:39→21:00)
[2016-12-09] MEDS: ENOXAPARIN SODIUM 30 MG/0.3 ML SYRINGE SQ SCH (10:40)
--- NOTE | 2016-12-09 15:14 | HHI.PR ---
Subjective Remarks Follow-up for fracture Patient has no complaints. She stated that she has been working with physical therapist. Patient states she is very anxious to get better so she can go home. No acute events. Objective Vitals Vital Signs Date Time Temp Pulse Resp B/P Pulse Ox O2 Delivery O2 Flow Rate FiO2 12/09/16 12:00 97.9 100 18 143/77 95 12/09/16 08:00 98.0 100 18 142/73 94 12/09/16 06:47 Room Air 12/09/16 04:40 98.4 102 17 142/76 92 12/09/16 00:40 99.0 95 17 116/55 92 12/08/16 20:10 97.5 101 18 141/77 94 12/08/16 15:48 97.0 95 17 161/96 97 I/O 12/08/16 12/08/16 12/08/16 12/09/16 12/09/16 12/09/16 07:00 15:00 23:00 07:00 15:00 23:00 Intake Total 120 ml 220 ml 240 ml 120 ml Output Total 150 ml 200 ml 175 ml Balance -30 ml 20 ml 65 ml 120 ml Intake Oral 120 ml 220 ml 240 ml 120 ml Output Urine Total 150 ml 200 ml 175 ml # Voids 0 1 # Bowel Movements 0 1 0 0 Result Diagram: 12/08/16 0747 12/08/16 0747 Objective Remarks GENERAL: in NAD CARDIOVASCULAR: Regular rate and rhythm without murmurs, gallops, or rubs. RESPIRATORY: Breath sounds equal bilaterally. No accessory muscle use. GASTROINTESTINAL: Abdomen soft, non-tender, nondistended. Ext dressing in place Patient has good sensation to light touch about the right foot and toes. EHL/TA/G intact. 2+ pedal pulse. Calf is soft and nontender. Medications and IVs Current Medications Acetaminophen/ Hydrocodone Bitart ([place] 5-325 Mg) 1 tab ONCE ONCE PO Last administered on 12/02/16 18:27; Start 12/02/16 at 18:15; Stop 12/02/16 at 18:16 ; Status DC Sodium Chloride (NS Flush) 2 ml UNSCH PRN IV FLUSH FLUSH AFTER USING IV ACCESS Last administered on 12/02/16 19:20; Start 12/02/16 at 18:30; Stop 12/02/16 at 20:10; Status DC Morphine Sulfate (Morphine Inj) 6 mg ONCE ONCE IV PUSH Last administered on 19:20; Start 12/02/16 at 19:15; Stop 12/02/16 at 19:16; Status DC Sodium Chloride (NS Flush) 2 ml UNSCH PRN IV FLUSH FLUSH AFTER USING IV ACCESS ; Start 12/02/16 at 20:00; Stop 12/03/16 at 16:13; Status DC Sodium Chloride (NS Flush) 2 ml BID IV FLUSH Last administered on 12/03/16 09: 09; Start 12/02/16 at 21:00; Stop 12/03/16 at 16:13; Status DC Naloxone HCl (Narcan Inj) 0.4 mg UNSCH PRN IV SEE LABEL COMMENTS; Start at 20:00 Morphine Sulfate (Morphine Inj) 2 mg Q3H PRN IV PUSH pain >5 Last administered on 12/03/16 09:09; Start 12/02/16 at 20:00; Stop 12/03/16 at 16:16; Status DC Dextrose (D50w (Vial) Inj) 50 ml UNSCH PRN IV HYPOGLYCEMIA-SEE COMMENTS; Start 12/02/16 at 20:15; Stop 12/03/16 at 16:12; Status DC Glucagon (Glucagon Inj) 1 mg UNSCH PRN OTHER HYPOGLYCEMIA-SEE COMMENTS; Start 12/02/16 at 20:15; Stop 12/03/16 at 16:12; Status DC Atorvastatin Calcium (Lipitor) 80 mg DAILY PO Last administered on 12/09/16 10 :38; Start 12/03/16 at 09:00 Clonidine (Catapres) 0.1 mg DAILY PO Last administered on 12/03/16 09:08; Start 12/03/16 at 09:00; Stop 12/04/16 at 12:20; Status DC Fluoxetine HCl (PROzac) 10 mg DAILY PO Last administered on 12/09/16 10:38; Start 12/03/16 at 09:00 Levetriacetam (Keppra) 500 mg BID PO Last administered on 12/09/16 10:38; Start 12/02/16 at 21:00 Phenytoin (Dilantin) 100 mg BID PO Last administered on 12/09/16 10:39; Start 12/02/16 at 21:00 Dextrose (D50w (Vial) Inj) 50 ml UNSCH PRN IV HYPOGLYCEMIA-SEE COMMENTS; Start 12/02/16 at 21:15; Stop 12/03/16 at 21:36; Status DC Glucagon (Glucagon Inj) 1 mg UNSCH PRN OTHER HYPOGLYCEMIA-SEE COMMENTS; Start 12/02/16 at 21:15; Stop 12/03/16 at 21:36; Status DC Insulin Aspart 1 1 ACHS SLIDING SCALE SQ ; Start 12/03/16 at 07:00; Stop at 07:00; Status DC Lactated Ringer's 1,000 ml @ 30 mls/hr Q24H PRN IV SEE LABEL COMMENTS; Start at 21:45; Stop 12/04/16 at 12:25; Status DC Sodium Chloride (NS 500 ml Inj) 500 ml @ 30 mls/hr [id number] PRN IV SEE LABEL COMMENTS; Start 12/02/16 at 21:45; Stop 12/04/16 at 12:25; Status DC Metoprolol Tartrate (Lopressor) 25 mg MINE GEOLOGIST PRN PO SEE LABEL COMMENTS; Start 12/02/16 at 21:45; Stop 12/05/16 at 21:44; Status DC Povidone Iodine (Betadine 5% Antisepsis Kit) 1 applic MINE GEOLOGIST PRN EACH NARE SEE LABEL COMMENTS; Start 12/02/16 at 21:45; Stop 12/05/16 at 21:44; Status DC Chlorhexidine Gluconate (Chlorhexidine 2% Cloth) 3 pack MINE GEOLOGIST PRN TOPICAL SEE LABEL COMMENTS; Start 12/02/16 at 21:45; Stop 12/04/16 at 12:27; Status DC Insulin Human Regular (NovoLIN R INJ) See Protocol Table ... MINE GEOLOGIST PRN SQ SEE PROTOCOL TABLE Last administered on 12/03/16 12:54; Start 12/02/16 at 21:45 ; Stop 12/04/16 at 12:27; Status DC Acetaminophen (Ofirmev Inj) 1,000 mg STK-MED ONCE IV ; Start 12/03/16 at 13:41; Stop 12/03/16 at 13:42; Status DC Midazolam HCl (Versed Inj) 2 mg STK-MED ONCE .ROUTE ; Start 12/03/16 at 13:41; Stop 12/03/16 at 13:42; Status DC Dexamethasone Sodium Phosphate (Decadron Inj) 4 mg STK-MED ONCE .ROUTE ; Start 12/03/16 at 13:41; Stop 12/03/16 at 13:42; Status DC Famotidine (Pepcid Inj) 20 mg STK-MED ONCE .ROUTE ; Start 12/03/16 at 13:42; Stop 12/03/16 at 13:43; Status DC Vancomycin HCl (Vancomycin Inj) 1,000 mg STK-MED ONCE .ROUTE Last administered on 12/03/16 14:07; Start 12/03/16 at 14:01; Stop 12/03/16 at 14:02; Status DC Clindamycin Phosphate (Cleocin Inj) 600 mg STK-MED ONCE .ROUTE Last administered on 12/03/16 14:11; Start 12/03/16 at 14:01; Stop 12/03/16 at 14:02 ; Status DC Gentamicin Sulfate (Gentamicin Inj) 240 mg STK-MED ONCE .ROUTE Last administered on 12/03/16 14:19; Start 12/03/16 at 14:01; Stop 12/03/16 at 14:02 ; Status DC Sodium Chloride (NS Flush) 2 ml UNSCH PRN IV FLUSH FLUSH AFTER USING IV ACCESS ; Start 12/03/16 at 16:00 Sodium Chloride 2 ml 2 ml BID IV FLUSH Last administered on 12/09/16 10:38; Start 12/03/16 at 21:00 Cefazolin Sodium 1000 mg/Sodium Chloride 100 ml @ 200 mls/hr Q6H IV Last administered on 12/04/16 06:34; Start 12/03/16 at 18:00; Stop 12/04/16 at 06:29 ; Status DC Vancomycin HCl/ Sodium Chloride (Vancomycin Inj/ NS 250 ml Inj) 250 ml @ 250 mls/hr Q12H IV Last administered on 12/04/16 17:10; Start 12/04/16 at 02:00; Stop 12/04/16 at 14:59; Status DC Miscellaneous Information (Post-op Orders (for Pharmacy)) STAT ONCE XX ; Start 12/03/16 at 16:00; Stop 12/03/16 at 16:20; Status DC Enoxaparin Sodium (Lovenox Inj) 30 mg Q12H SQ Last administered on 12/05/16 04 :23; Start 12/04/16 at 04:00; Stop 12/05/16 at 09:52; Status DC Miscellaneous Information UNSCH PRN XX SEE LABEL COMMENTS; Start 12/03/16 at 16:00 Morphine Sulfate (Morphine Inj) 5 mg Q3H PRN IV PUSH Pain >7 when off [facility]CE[facility] STORE Last administered on 12/07/16 17:21; Start 12/03/16 at 16:00; Stop 12/08/16 at 09:43 ; Status DC Oxycodone/ Acetaminophen (Percocet 5-325 Mg) 1 tab Q4H PRN PO PAIN LESS THAN 5 ON SCALE Last administered on 12/06/16 11:57; Start 12/03/16 at 16:00 Oxycodone/ Acetaminophen (Percocet 5-325 Mg) 2 tab Q4H PRN PO PAIN SCALE 5 TO 10 Last administered on 12/08/16 11:55; Start 12/03/16 at 16:00 Ketorolac Tromethamine (Toradol Inj) 15 mg Q6H IVP Last administered on 04:23; Start 12/03/16 at 18:00; Stop 12/05/16 at 12:01; Status DC Promethazine HCl (Phenergan) 25 mg Q4H PRN PO NAUSEA OR VOMITING; Start at 16:00 Ondansetron HCl (Zofran Inj) 4 mg Q6H PRN IVP NAUSEA OR VOMITING; Start at 16:00 Zolpidem Tartrate (Ambien) 5 mg HS PRN PO SLEEP; Start 12/03/16 at 16:00 Senna/Docusate Sodium (Rivka-Colace) 1 tab BID PO Last administered on 09:10; Start 12/03/16 at 21:00 Magnesium Hydroxide (Milk Of Magnesia Liq) 30 ml Q12H PRN PO MILD - MODERATE CONSTIPATION; Start 12/03/16 at 16:00 Sennosides (Senokot) 17.2 mg Q12H PRN PO MODERATE - SEVERE CONSTIPATION; Start 12/03/16 at 16:00 Bisacodyl (Dulcolax Supp) 10 mg DAILY PRN RECTAL SEVERE CONSITIPATION; Start at 16:00 Lactulose (Lactulose Liq) 30 ml DAILY PRN PO SEVERE CONSITIPATION; Start at 16:00 Fentanyl Citrate (fentaNYL INJ) 250 mcg STK-MED ONCE .ROUTE ; Start 12/03/16 at 16:12; Stop 12/03/16 at 16:13; Status DC Miscellaneous Information ALL NURSING DEPARTME... UNSCH PRN .XX SEE LABEL COMMENTS; Start 12/03/16 at 18:45; Stop 12/04/16 at 18:44; Status DC Dextrose (D50w (Vial) Inj) 25 ml UNSCH PRN IV PUSH HYPOGLYCEMIA - SEE COMMENTS ; Start 12/03/16 at 21:45; Stop 12/04/16 at 12:27; Status DC Glucagon (Glucagon Inj) 1 mg UNSCH PRN OTHER HYPOGLYCEMIA-SEE COMMENTS; Start 12/03/16 at 21:45; Stop 12/04/16 at 12:27; Status DC Insulin Aspart 1 1 ACHS SLIDING SCALE SQ Last administered on 12/04/16 10:33 ; Start 12/03/16 at 21:30; Stop 12/04/16 at 12:20; Status DC Sodium Chloride (NS 1000 ml Inj) 1,000 ml @ 100 mls/hr Q10H IV ; Start at 07:00; Stop 12/04/16 at 12:26; Status DC Insulin Human Regular 10 units 10 units ONCE ONCE IV PUSH Last administered on 12/04/16 07:15; Start 12/04/16 at 07:15; Stop 12/04/16 at 07:16; Status DC Sodium Chloride (NS 500 ml Inj) 500 ml @ 500 mls/hr BOLUS ONCE IV Last administered on 12/04/16 07:37; Start 12/04/16 at 07:30; Stop 12/04/16 at 08:29 ; Status DC Miscellaneous Information Patient in critical care unit? Ass... [id number] .XX Last administered on 12/04/16 08:30; Start 12/04/16 at 08:30 Chlorhexidine Gluconate (Chlorhexidine 2% Cloth) 3 pack DAILY@04 TOPICAL Last administered on 12/07/16 04:00; Start 12/05/16 at 04:00; Stop 12/09/16 at 04:01 ; Status DC Chlorhexidine Gluconate 3 pack 3 pack UNSCH PRN TOPICAL HYGIENIC CARE; Start at 08:30; Stop 12/09/16 at 08:16; Status DC Sodium Chloride 1,000 ml @ 999 mls/hr BOLUS ONCE IV Last administered on 12/04 10:20; Start 12/04/16 at 10:00; Stop 12/04/16 at 11:00; Status DC Sodium Chloride (NS 1000 ml Inj) 1,000 ml @ 100 mls/hr Q10H IV ; Start at 10:00; Stop 12/04/16 at 12:26; Status DC Insulin Detemir (Levemir Inj) 10 units BID SQ ; Start 12/04/16 at 21:00; Stop at 21:00; Status DC Insulin Detemir (Levemir Inj) 10 units ONCE ONCE SQ ; Start 12/04/16 at 11:15; Stop 12/04/16 at 11:22; Status DC Calcium Carbonate (Tums Chew) 500 mg ONCE ONCE CHEW ; Start 12/04/16 at 11:15; Stop 12/04/16 at 11:22; Status DC Calcium Carbonate (Tums Chew) 500 mg Q12HR CHEW Last administered on 12/06/16 20:38; Start 12/04/16 at 21:00 Dextrose (D50w (Vial) Inj) 50 ml UNSCH PRN IV HYPOGLYCEMIA-SEE COMMENTS Last administered on 12/04/16 19:41; Start 12/04/16 at 12:15; Stop 12/05/16 at 09:28 ; Status DC Glucagon (Glucagon Inj) 1 mg UNSCH PRN OTHER HYPOGLYCEMIA-SEE COMMENTS; Start 12/04/16 at 12:15; Stop 12/05/16 at 09:28; Status DC Insulin Human Regular 1 1 Q4H SQ Last administered on 12/05/16 04:23; Start at 13:00; Stop 12/05/16 at 09:18; Status DC Sodium Chloride 1,000 ml @ 999 mls/hr BOLUS ONCE IV Last administered on 12/04 13:15; Start 12/04/16 at 12:15; Stop 12/04/16 at 13:15; Status DC Sodium Chloride (NS 1000 ml Inj) 1,000 ml @ 100 mls/hr Q10H IV Last administered on 12/06/16 06:27; Start 12/04/16 at 12:15; Stop 12/06/16 at 10:01 ; Status DC Sodium Polystyrene Sulfonate (Kayexalate Liq) 30 gm ONCE ONCE PO Last administered on 12/04/16 13:15; Start 12/04/16 at 12:15; Stop 12/04/16 at 12:22 ; Status DC Albuterol/ Ipratropium (Duoneb Neb) 1 ampule Q4HR NEB NEB Last administered on 12/08/16 15:36; Start 12/04/16 at 16:00; Stop 12/08/16 at 16:00; Status DC Albuterol/ Ipratropium 1 ampule 1 ampule Q2HR NEB PRN NEB SHORTNESS OF BREATH; Start 12/04/16 at 12:15 Calcium Gluconate/ Sodium Chloride (Calcium Gluconate Inj/NS Inj) 110 ml @ 110 mls/hr ONCE ONCE IV Last administered on 12/05/16 10:22; Start 12/05/16 at 10 :00; Stop 12/05/16 at 10:59; Status DC Dextrose (D50w (Vial) Inj) 50 ml UNSCH PRN IV HYPOGLYCEMIA-SEE COMMENTS; Start 12/05/16 at 09:30 Glucagon (Glucagon Inj) 1 mg UNSCH PRN OTHER HYPOGLYCEMIA-SEE COMMENTS; Start 12/05/16 at 09:30 Insulin Human Regular (NovoLIN R SUPPLEMENTAL SCALE) 1 Q4H SQ Last administered on 12/06/16 09:25; Start 12/05/16 at 10:00; Stop 12/06/16 at 15:03 ; Status DC Enoxaparin Sodium (Lovenox Inj) 30 mg Q24H SQ Last administered on 12/09/16 10 :40; Start 12/06/16 at 09:00 Ketorolac Tromethamine (Toradol Inj) 15 mg Q6H IVP Last administered on 16:12; Start 12/05/16 at 16:15; Stop 12/05/16 at 16:16; Status DC Clonidine (Catapres) 0.1 mg Q8HR PO Last administered on 12/09/16 14:19; Start 12/06/16 at 09:45 Bumetanide (Bumex Inj) 1 mg ONCE ONCE IV PUSH Last administered on 12/06/16 10:28; Start 12/06/16 at 09:45; Stop 12/06/16 at 10:04; Status DC Hydralazine HCl (Apresoline Inj) 10 mg Q6H PRN IV PUSH SYS BP GREATER THAN 160 MMHG Last administered on 12/07/16 16:00; Start 12/06/16 at 10:15 Insulin Human Regular (NovoLIN R SUPPLEMENTAL SCALE) 1 ACHS SLIDING SCALE SQ Last administered on 12/09/16 12:51; Start 12/06/16 at 16:00 Bumetanide (Bumex Inj) 1 mg ONCE ONCE IV PUSH Last administered on 12/07/16 15:18; Start 12/07/16 at 14:30; Stop 12/07/16 at 14:31; Status DC Insulin Detemir (Levemir Inj) 10 units Q12HR SQ ; Start 12/08/16 at 09:45; Stop 12/08/16 at 10:37; Status DC A/P Problem List: (1) Fibula fracture ICD Code: S82.409A Status: Acute (2) Tibia fracture ICD Code: S82.209A Status: Acute Assessment and Plan Respiratory insufficiency -Most likely secondary to over sedation from narcotics. -Resolved. Acute renal failure. improving -Initially patient was given IV fluids in which renal function was improving. she was given a dose of Bumex X 2. BNP mild elevated. -im suspected she has chronic renal disease from diabetes nephropathy. -Patient does have decreased urine output today will continue to monitor. T2 DM, uncontrolled -She is on insulin sliding scale. -Patient is allergic to Levemir and that is on our formulary. She can resume Lantus when she is discharged. right closed tibial fracture status post yuri fixation on December 03. -Being managed by orthopedics. Anemia -Secondary to blood loss due to surgery. -Status post transfusion with 2 PRBC -Responded appropriately to transfusion. -Continue to trend. -GI was consulted due to anemia. Per GI she had colonoscopy and endoscopy done 2 months ago which was normal. She had no signs of any GI bleed. GI signed off. History of seizure disorder and CVA/history of lupus/hypertension -Continue home medication. -On Keppra 500mg BID, Dilantin 100mg BID, Dilantin level:1.6 -On clonidine. On Protonix 40 mg IV daily for GI prophylaxis. DVT prophylaxis with SCDs and Lovenox 30mg BID per Ortho Discharge Planning d/w case management for placement. Difficult placement due to funding. Gina Rose MD Dec 09, 2016 15:13
[2016-12-10 00:48] VITALS: BP 124/68; PULSE 96; RESP 18; TEMP 98.7; O2SAT 97
[2016-12-10] MEDS: cloNIDine HCL 0.1 MG TAB PO SCH ×3 (06:15→23:19)
[2016-12-10] MEDS: INSULIN NovoLIN REGULAR SUPPLEMENTAL SCALE SQ SCH ×4 (06:16→21:00)
[2016-12-10 08:00] VITALS: BP 138/67; PULSE 91; RESP 16; TEMP 97.9; O2SAT 92
[2016-12-10] MEDS: CALCIUM CARBONATE 500 MG CHEWABLE TAB CHEW SCH ×2 (09:00→21:00)
[2016-12-10] MEDS: FLUoxetine HCL 10 MG CAP PO SCH (09:00)
[2016-12-10] MEDS: ATORVASTATIN 80 MG TAB PO SCH (09:00)
[2016-12-10] MEDS: DOCUSATE SODIUM 50 MG/SENNA 8.6 MG TAB PO SCH ×2 (09:00→21:00)
[2016-12-10] MEDS: ENOXAPARIN SODIUM 30 MG/0.3 ML SYRINGE SQ SCH (09:00)
[2016-12-10] MEDS: SODIUM CHLORIDE 0.9% FLUSH 10 ML FLUSH IV FLUSH SCH ×2 (09:00→23:20)
[2016-12-10] MEDS: levETIRAcetam 500 MG TAB PO SCH ×2 (09:00→23:20)
[2016-12-10] MEDS: PHENYTOIN SODIUM 100 MG CAP PO SCH ×2 (09:00→23:19)
[2016-12-10 10:59] VITALS: BP 157/80; PULSE 106; RESP 16; TEMP 97.7; O2SAT 94
--- NOTE | 2016-12-10 13:54 | HHI.PR ---
Subjective Remarks Follow-up for acute renal failure, anemia, postop Patient was asking for pain medication while doing physical therapy. I explained to patient that she does have pain medication but she has to ask for medication. Otherwise she has no complaints. Her father is at the bedside. Patient stated that she has good urine output. Objective Vitals Vital Signs Date Time Temp Pulse Resp B/P Pulse Ox O2 Delivery O2 Flow Rate FiO2 12/10/16 10:59 97.7 106 16 157/80 94 12/10/16 09:26 Room Air 12/10/16 08:00 97.9 91 16 138/67 92 12/10/16 00:48 98.7 96 18 124/68 97 12/09/16 20:19 98.9 98 18 164/94 98 12/09/16 19:24 Room Air 12/09/16 17:00 145/74 12/09/16 16:00 98.4 100 18 178/98 97 I/O 12/09/16 12/09/16 12/09/16 12/10/16 12/10/16 12/10/16 06:59 14:59 22:59 06:59 14:59 22:59 Intake Total 120 ml 360 ml 360 ml 360 ml Balance 120 ml 360 ml 360 ml 360 ml Intake Oral 120 ml 360 ml 360 ml 360 ml # Voids 1 1 2 1 # Bowel Movements 0 1 Result Diagram: 12/08/16 0747 12/08/16 0747 Objective Remarks GENERAL: in NAD CARDIOVASCULAR: Regular rate and rhythm without murmurs, gallops, or rubs. RESPIRATORY: Breath sounds equal bilaterally. No accessory muscle use. GASTROINTESTINAL: Abdomen soft, non-tender, nondistended. Ext dressing in place Patient has good sensation to light touch about the right foot and toes. EHL/TA/G intact. 2+ pedal pulse. Calf is soft and nontender. Medications and IVs Current Medications Acetaminophen/ Hydrocodone Bitart (Clifton 5-325 Mg) 1 tab ONCE ONCE PO Last administered on 12/02/16 18:27; Start 12/02/16 at 18:15; Stop 12/02/16 at 18:16 ; Status DC Sodium Chloride (NS Flush) 2 ml UNSCH PRN IV FLUSH FLUSH AFTER USING IV ACCESS Last administered on 12/02/16 19:20; Start 12/02/16 at 18:30; Stop 12/02/16 at 20:10; Status DC Morphine Sulfate (Morphine Inj) 6 mg ONCE ONCE IV PUSH Last administered on 19:20; Start 12/02/16 at 19:15; Stop 12/02/16 at 19:16; Status DC Sodium Chloride (NS Flush) 2 ml UNSCH PRN IV FLUSH FLUSH AFTER USING IV ACCESS ; Start 12/02/16 at 20:00; Stop 12/03/16 at 16:13; Status DC Sodium Chloride (NS Flush) 2 ml BID IV FLUSH Last administered on 12/03/16 09: 09; Start 12/02/16 at 21:00; Stop 12/03/16 at 16:13; Status DC Naloxone HCl (Narcan Inj) 0.4 mg UNSCH PRN IV SEE LABEL COMMENTS; Start at 20:00 Morphine Sulfate (Morphine Inj) 2 mg Q3H PRN IV PUSH pain >5 Last administered on 12/03/16 09:09; Start 12/02/16 at 20:00; Stop 12/03/16 at 16:16; Status DC Dextrose (D50w (Vial) Inj) 50 ml UNSCH PRN IV HYPOGLYCEMIA-SEE COMMENTS; Start 12/02/16 at 20:15; Stop 12/03/16 at 16:12; Status DC Glucagon (Glucagon Inj) 1 mg UNSCH PRN OTHER HYPOGLYCEMIA-SEE COMMENTS; Start 12/02/16 at 20:15; Stop 12/03/16 at 16:12; Status DC Atorvastatin Calcium (Lipitor) 80 mg DAILY PO Last administered on 12/10/16 09 :00; Start 12/03/16 at 09:00 Clonidine (Catapres) 0.1 mg DAILY PO Last administered on 12/03/16 09:08; Start 12/03/16 at 09:00; Stop 12/04/16 at 12:20; Status DC Fluoxetine HCl (PROzac) 10 mg DAILY PO Last administered on 12/10/16 09:00; Start 12/03/16 at 09:00 Levetriacetam (Keppra) 500 mg BID PO Last administered on 12/10/16 09:00; Start 12/02/16 at 21:00 Phenytoin (Dilantin) 100 mg BID PO Last administered on 12/10/16 09:00; Start 12/02/16 at 21:00 Dextrose (D50w (Vial) Inj) 50 ml UNSCH PRN IV HYPOGLYCEMIA-SEE COMMENTS; Start 12/02/16 at 21:15; Stop 12/03/16 at 21:36; Status DC Glucagon (Glucagon Inj) 1 mg UNSCH PRN OTHER HYPOGLYCEMIA-SEE COMMENTS; Start 12/02/16 at 21:15; Stop 12/03/16 at 21:36; Status DC Insulin Aspart 1 1 ACHS SLIDING SCALE SQ ; Start 12/03/16 at 07:00; Stop at 07:00; Status DC Lactated Ringer's 1,000 ml @ 30 mls/hr Q24H PRN IV SEE LABEL COMMENTS; Start at 21:45; Stop 12/04/16 at 12:25; Status DC Sodium Chloride (NS 500 ml Inj) 500 ml @ 30 mls/hr [id number] PRN IV SEE LABEL COMMENTS; Start 12/02/16 at 21:45; Stop 12/04/16 at 12:25; Status DC Metoprolol Tartrate (Lopressor) 25 mg FULL ROLL INSPECTOR PRN PO SEE LABEL COMMENTS; Start 12/02/16 at 21:45; Stop 12/05/16 at 21:44; Status DC Povidone Iodine (Betadine 5% Antisepsis Kit) 1 applic FULL ROLL INSPECTOR PRN EACH NARE SEE LABEL COMMENTS; Start 12/02/16 at 21:45; Stop 12/05/16 at 21:44; Status DC Chlorhexidine Gluconate (Chlorhexidine 2% Cloth) 3 pack FULL ROLL INSPECTOR PRN TOPICAL SEE LABEL COMMENTS; Start 12/02/16 at 21:45; Stop 12/04/16 at 12:27; Status DC Insulin Human Regular (NovoLIN R INJ) See Protocol Table ... FULL ROLL INSPECTOR PRN SQ SEE PROTOCOL TABLE Last administered on 12/03/16 12:54; Start 12/02/16 at 21:45 ; Stop 12/04/16 at 12:27; Status DC Acetaminophen (Ofirmev Inj) 1,000 mg STK-MED ONCE IV ; Start 12/03/16 at 13:41; Stop 12/03/16 at 13:42; Status DC Midazolam HCl (Versed Inj) 2 mg STK-MED ONCE .ROUTE ; Start 12/03/16 at 13:41; Stop 12/03/16 at 13:42; Status DC Dexamethasone Sodium Phosphate (Decadron Inj) 4 mg STK-MED ONCE .ROUTE ; Start 12/03/16 at 13:41; Stop 12/03/16 at 13:42; Status DC Famotidine (Pepcid Inj) 20 mg STK-MED ONCE .ROUTE ; Start 12/03/16 at 13:42; Stop 12/03/16 at 13:43; Status DC Vancomycin HCl (Vancomycin Inj) 1,000 mg STK-MED ONCE .ROUTE Last administered on 12/03/16 14:07; Start 12/03/16 at 14:01; Stop 12/03/16 at 14:02; Status DC Clindamycin Phosphate (Cleocin Inj) 600 mg STK-MED ONCE .ROUTE Last administered on 12/03/16 14:11; Start 12/03/16 at 14:01; Stop 12/03/16 at 14:02 ; Status DC Gentamicin Sulfate (Gentamicin Inj) 240 mg STK-MED ONCE .ROUTE Last administered on 12/03/16 14:19; Start 12/03/16 at 14:01; Stop 12/03/16 at 14:02 ; Status DC Sodium Chloride (NS Flush) 2 ml UNSCH PRN IV FLUSH FLUSH AFTER USING IV ACCESS ; Start 12/03/16 at 16:00 Sodium Chloride 2 ml 2 ml BID IV FLUSH Last administered on 12/10/16 09:00; Start 12/03/16 at 21:00 Cefazolin Sodium 1000 mg/Sodium Chloride 100 ml @ 200 mls/hr Q6H IV Last administered on 12/04/16 06:34; Start 12/03/16 at 18:00; Stop 12/04/16 at 06:29 ; Status DC Vancomycin HCl/ Sodium Chloride (Vancomycin Inj/ NS 250 ml Inj) 250 ml @ 250 mls/hr Q12H IV Last administered on 12/04/16 17:10; Start 12/04/16 at 02:00; Stop 12/04/16 at 14:59; Status DC Miscellaneous Information (Post-op Orders (for Pharmacy)) STAT ONCE XX ; Start 12/03/16 at 16:00; Stop 12/03/16 at 16:20; Status DC Enoxaparin Sodium (Lovenox Inj) 30 mg Q12H SQ Last administered on 12/05/16 04 :23; Start 12/04/16 at 04:00; Stop 12/05/16 at 09:52; Status DC Miscellaneous Information UNSCH PRN XX SEE LABEL COMMENTS; Start 12/03/16 at 16:00 Morphine Sulfate (Morphine Inj) 5 mg Q3H PRN IV PUSH Pain >7 when off KNIFE EDGER Last administered on 12/07/16 17:21; Start 12/03/16 at 16:00; Stop 12/08/16 at 09:43 ; Status DC Oxycodone/ Acetaminophen (Percocet 5-325 Mg) 1 tab Q4H PRN PO PAIN LESS THAN 5 ON SCALE Last administered on 12/06/16 11:57; Start 12/03/16 at 16:00 Oxycodone/ Acetaminophen (Percocet 5-325 Mg) 2 tab Q4H PRN PO PAIN SCALE 5 TO 10 Last administered on 12/08/16 11:55; Start 12/03/16 at 16:00 Ketorolac Tromethamine (Toradol Inj) 15 mg Q6H IVP Last administered on 04:23; Start 12/03/16 at 18:00; Stop 12/05/16 at 12:01; Status DC Promethazine HCl (Phenergan) 25 mg Q4H PRN PO NAUSEA OR VOMITING; Start at 16:00 Ondansetron HCl (Zofran Inj) 4 mg Q6H PRN IVP NAUSEA OR VOMITING; Start at 16:00 Zolpidem Tartrate (Ambien) 5 mg HS PRN PO SLEEP; Start 12/03/16 at 16:00 Senna/Docusate Sodium (Rivka-Colace) 1 tab BID PO Last administered on 09:10; Start 12/03/16 at 21:00 Magnesium Hydroxide (Milk Of Magnesia Liq) 30 ml Q12H PRN PO MILD - MODERATE CONSTIPATION; Start 12/03/16 at 16:00 Sennosides (Senokot) 17.2 mg Q12H PRN PO MODERATE - SEVERE CONSTIPATION; Start 12/03/16 at 16:00 Bisacodyl (Dulcolax Supp) 10 mg DAILY PRN RECTAL SEVERE CONSITIPATION; Start at 16:00 Lactulose (Lactulose Liq) 30 ml DAILY PRN PO SEVERE CONSITIPATION; Start at 16:00 Fentanyl Citrate (fentaNYL INJ) 250 mcg STK-MED ONCE .ROUTE ; Start 12/03/16 at 16:12; Stop 12/03/16 at 16:13; Status DC Miscellaneous Information ALL NURSING DEPARTME... UNSCH PRN .XX SEE LABEL COMMENTS; Start 12/03/16 at 18:45; Stop 12/04/16 at 18:44; Status DC Dextrose (D50w (Vial) Inj) 25 ml UNSCH PRN IV PUSH HYPOGLYCEMIA - SEE COMMENTS ; Start 12/03/16 at 21:45; Stop 12/04/16 at 12:27; Status DC Glucagon (Glucagon Inj) 1 mg UNSCH PRN OTHER HYPOGLYCEMIA-SEE COMMENTS; Start 12/03/16 at 21:45; Stop 12/04/16 at 12:27; Status DC Insulin Aspart 1 1 ACHS SLIDING SCALE SQ Last administered on 12/04/16 10:33 ; Start 12/03/16 at 21:30; Stop 12/04/16 at 12:20; Status DC Sodium Chloride (NS 1000 ml Inj) 1,000 ml @ 100 mls/hr Q10H IV ; Start at 07:00; Stop 12/04/16 at 12:26; Status DC Insulin Human Regular 10 units 10 units ONCE ONCE IV PUSH Last administered on 12/04/16 07:15; Start 12/04/16 at 07:15; Stop 12/04/16 at 07:16; Status DC Sodium Chloride (NS 500 ml Inj) 500 ml @ 500 mls/hr BOLUS ONCE IV Last administered on 12/04/16 07:37; Start 12/04/16 at 07:30; Stop 12/04/16 at 08:29 ; Status DC Miscellaneous Information Patient in critical care unit? Ass... [id number] .XX Last administered on 12/04/16 08:30; Start 12/04/16 at 08:30 Chlorhexidine Gluconate (Chlorhexidine 2% Cloth) 3 pack DAILY@04 TOPICAL Last administered on 12/07/16 04:00; Start 12/05/16 at 04:00; Stop 12/09/16 at 04:01 ; Status DC Chlorhexidine Gluconate 3 pack 3 pack UNSCH PRN TOPICAL HYGIENIC CARE; Start at 08:30; Stop 12/09/16 at 08:16; Status DC Sodium Chloride 1,000 ml @ 999 mls/hr BOLUS ONCE IV Last administered on 12/04 10:20; Start 12/04/16 at 10:00; Stop 12/04/16 at 11:00; Status DC Sodium Chloride (NS 1000 ml Inj) 1,000 ml @ 100 mls/hr Q10H IV ; Start at 10:00; Stop 12/04/16 at 12:26; Status DC Insulin Detemir (Levemir Inj) 10 units BID SQ ; Start 12/04/16 at 21:00; Stop at 21:00; Status DC Insulin Detemir (Levemir Inj) 10 units ONCE ONCE SQ ; Start 12/04/16 at 11:15; Stop 12/04/16 at 11:22; Status DC Calcium Carbonate (Tums Chew) 500 mg ONCE ONCE CHEW ; Start 12/04/16 at 11:15; Stop 12/04/16 at 11:22; Status DC Calcium Carbonate (Tums Chew) 500 mg Q12HR CHEW Last administered on 12/10/16 09:00; Start 12/04/16 at 21:00 Dextrose (D50w (Vial) Inj) 50 ml UNSCH PRN IV HYPOGLYCEMIA-SEE COMMENTS Last administered on 12/04/16 19:41; Start 12/04/16 at 12:15; Stop 12/05/16 at 09:28 ; Status DC Glucagon (Glucagon Inj) 1 mg UNSCH PRN OTHER HYPOGLYCEMIA-SEE COMMENTS; Start 12/04/16 at 12:15; Stop 12/05/16 at 09:28; Status DC Insulin Human Regular 1 1 Q4H SQ Last administered on 12/05/16 04:23; Start at 13:00; Stop 12/05/16 at 09:18; Status DC Sodium Chloride 1,000 ml @ 999 mls/hr BOLUS ONCE IV Last administered on 12/04 13:15; Start 12/04/16 at 12:15; Stop 12/04/16 at 13:15; Status DC Sodium Chloride (NS 1000 ml Inj) 1,000 ml @ 100 mls/hr Q10H IV Last administered on 12/06/16 06:27; Start 12/04/16 at 12:15; Stop 12/06/16 at 10:01 ; Status DC Sodium Polystyrene Sulfonate (Kayexalate Liq) 30 gm ONCE ONCE PO Last administered on 12/04/16 13:15; Start 12/04/16 at 12:15; Stop 12/04/16 at 12:22 ; Status DC Albuterol/ Ipratropium (Duoneb Neb) 1 ampule Q4HR NEB NEB Last administered on 12/08/16 15:36; Start 12/04/16 at 16:00; Stop 12/08/16 at 16:00; Status DC Albuterol/ Ipratropium 1 ampule 1 ampule Q2HR NEB PRN NEB SHORTNESS OF BREATH; Start 12/04/16 at 12:15 Calcium Gluconate/ Sodium Chloride (Calcium Gluconate Inj/NS Inj) 110 ml @ 110 mls/hr ONCE ONCE IV Last administered on 12/05/16 10:22; Start 12/05/16 at 10 :00; Stop 12/05/16 at 10:59; Status DC Dextrose (D50w (Vial) Inj) 50 ml UNSCH PRN IV HYPOGLYCEMIA-SEE COMMENTS; Start 12/05/16 at 09:30 Glucagon (Glucagon Inj) 1 mg UNSCH PRN OTHER HYPOGLYCEMIA-SEE COMMENTS; Start 12/05/16 at 09:30 Insulin Human Regular (NovoLIN R SUPPLEMENTAL SCALE) 1 Q4H SQ Last administered on 12/06/16 09:25; Start 12/05/16 at 10:00; Stop 12/06/16 at 15:03 ; Status DC Enoxaparin Sodium (Lovenox Inj) 30 mg Q24H SQ Last administered on 12/10/16 09 :00; Start 12/06/16 at 09:00 Ketorolac Tromethamine (Toradol Inj) 15 mg Q6H IVP Last administered on 16:12; Start 12/05/16 at 16:15; Stop 12/05/16 at 16:16; Status DC Clonidine (Catapres) 0.1 mg Q8HR PO Last administered on 12/10/16 11:03; Start 12/06/16 at 09:45 Bumetanide (Bumex Inj) 1 mg ONCE ONCE IV PUSH Last administered on 12/06/16 10:28; Start 12/06/16 at 09:45; Stop 12/06/16 at 10:04; Status DC Hydralazine HCl (Apresoline Inj) 10 mg Q6H PRN IV PUSH SYS BP GREATER THAN 160 MMHG Last administered on 12/07/16 16:00; Start 12/06/16 at 10:15 Insulin Human Regular (NovoLIN R SUPPLEMENTAL SCALE) 1 ACHS SLIDING SCALE SQ Last administered on 12/10/16 10:53; Start 12/06/16 at 16:00 Bumetanide (Bumex Inj) 1 mg ONCE ONCE IV PUSH Last administered on 12/07/16 15:18; Start 12/07/16 at 14:30; Stop 12/07/16 at 14:31; Status DC Insulin Detemir (Levemir Inj) 10 units Q12HR SQ ; Start 12/08/16 at 09:45; Stop 12/08/16 at 10:37; Status DC A/P Problem List: (1) Fibula fracture ICD Code: S82.409A Status: Acute (2) Tibia fracture ICD Code: S82.209A Status: Acute Assessment and Plan Respiratory insufficiency -Most likely secondary to over sedation from narcotics. -Resolved. Acute renal failure. improving -Initially patient was given IV fluids in which renal function was improving. she was given a dose of Bumex X 2. BNP mild elevated. -im suspected she has chronic renal disease from diabetes nephropathy. -Good urine output. T2 DM, uncontrolled -She is on insulin sliding scale. -Patient is allergic to Levemir and that is on our formulary. She can resume Lantus when she is discharged. right closed tibial fracture status post yuri fixation on December 03. -Being managed by orthopedics. Anemia -Secondary to blood loss due to surgery. -Status post transfusion with 2 PRBC -Responded appropriately to transfusion. -Continue to trend. -GI was consulted due to anemia. Per GI she had colonoscopy and endoscopy done 2 months ago which was normal. She had no signs of any GI bleed. GI signed off. History of seizure disorder and CVA/history of lupus/hypertension -Continue home medication. -On Keppra 500mg BID, Dilantin 100mg BID, Dilantin level:1.6 -On clonidine. On Protonix 40 mg IV daily for GI prophylaxis. DVT prophylaxis with SCDs and Lovenox 30mg BID per Ortho Discharge Planning Pending approval for [facility]. Gina Rose MD Dec 10, 2016 13:54
[2016-12-10 16:00] VITALS: BP 156/99; PULSE 93; RESP 16; TEMP 97.6; O2SAT 96
[2016-12-10 19:28] VITALS: BP 173/94; PULSE 92; RESP 17; TEMP 98.4; O2SAT 95
[2016-12-10 23:09] VITALS: BP 132/72; PULSE 100; RESP 18; TEMP 98.4; O2SAT 96
[2016-12-11 04:21] VITALS: BP 167/87; PULSE 100; RESP 18; TEMP 97.9; O2SAT 95
[2016-12-11] MEDS: INSULIN NovoLIN REGULAR SUPPLEMENTAL SCALE SQ SCH ×4 (05:58→21:00)
[2016-12-11] MEDS: cloNIDine HCL 0.1 MG TAB PO SCH ×2 (05:58→12:13)
[2016-12-11 08:00] VITALS: BP 141/77; PULSE 100; RESP 17; TEMP 97.5; O2SAT 96
[2016-12-11] MEDS: CALCIUM CARBONATE 500 MG CHEWABLE TAB CHEW SCH ×2 (09:00→21:00)
[2016-12-11] MEDS: DOCUSATE SODIUM 50 MG/SENNA 8.6 MG TAB PO SCH ×2 (09:00→21:00)
[2016-12-11] MEDS: SODIUM CHLORIDE 0.9% FLUSH 10 ML FLUSH IV FLUSH SCH ×2 (09:00→22:56)
[2016-12-11] MEDS: FLUoxetine HCL 10 MG CAP PO SCH (09:19)
[2016-12-11] MEDS: ATORVASTATIN 80 MG TAB PO SCH (09:19)
[2016-12-11] MEDS: levETIRAcetam 500 MG TAB PO SCH ×2 (09:19→22:57)
[2016-12-11] MEDS: ENOXAPARIN SODIUM 30 MG/0.3 ML SYRINGE SQ SCH (09:19)
[2016-12-11] MEDS: PHENYTOIN SODIUM 100 MG CAP PO SCH ×2 (09:19→22:57)
[2016-12-11 12:00] VITALS: BP 183/96; PULSE 100; RESP 18; TEMP 98.1; O2SAT 98
--- NOTE | 2016-12-11 13:41 | PD.ORT.PN ---
Subjective Subjective Remarks Patient comfortable Objective Vitals Vital Signs Date Time Temp Pulse Resp B/P Pulse Ox O2 Delivery O2 Flow Rate FiO2 12/11/16 12:00 98.1 100 18 183/96 98 12/11/16 08:00 97.5 100 17 141/77 96 12/11/16 04:21 97.9 100 18 167/87 95 12/10/16 23:09 98.4 100 18 132/72 96 12/10/16 19:28 98.4 92 17 173/94 95 12/10/16 18:59 Room Air 12/10/16 16:00 97.6 93 16 156/99 96 I/O 12/10/16 12/10/16 12/10/16 12/11/16 12/11/16 12/11/16 07:00 15:00 23:00 07:00 15:00 23:00 Intake Total 360 ml 360 ml 360 ml 360 ml Balance 360 ml 360 ml 360 ml 360 ml Intake Oral 360 ml 360 ml 360 ml 360 ml # Voids 1 1 2 2 # Bowel Movements 5 0 0 Result Diagram: 12/08/16 0747 12/08/16 0747 Procedures Right tibial shaft fracture with ORIF Objective Remarks Patient's dressing has mild to moderate serosanguineous drainage distal/ posterior. Minimal swelling to the right foot and lower extremity. Patient has good sensation to light touch about the right foot and toes. EHL/TA/G intact. 2+ pedal pulse. Calf is soft and nontender. Assessment & Plan Assessment and Plan POD #8: Right tibial shaft fracture with ORIF Antiocoagulation: Lovenox Weight bearing status: NWB Dressing: Daily dressing change Follow peripherally Joo Hearn Dec 11, 2016 13:41
--- NOTE | 2016-12-11 13:48 | HHI.PR ---
Subjective Remarks Follow-up orthopedic injury and seizure. Still complaining of right leg pain. 5 BM today. Discussed with RN, elevated BP on clonidine. Objective Vitals Vital Signs Date Time Temp Pulse Resp B/P Pulse Ox O2 Delivery O2 Flow Rate FiO2 12/11/16 12:00 98.1 100 18 183/96 98 12/11/16 08:00 97.5 100 17 141/77 96 12/11/16 04:21 97.9 100 18 167/87 95 12/10/16 23:09 98.4 100 18 132/72 96 12/10/16 19:28 98.4 92 17 173/94 95 12/10/16 18:59 Room Air 12/10/16 16:00 97.6 93 16 156/99 96 I/O 12/10/16 12/10/16 12/10/16 12/11/16 12/11/16 12/11/16 07:00 15:00 23:00 07:00 15:00 23:00 Intake Total 360 ml 360 ml 360 ml 360 ml Balance 360 ml 360 ml 360 ml 360 ml Intake Oral 360 ml 360 ml 360 ml 360 ml # Voids 1 1 2 2 # Bowel Movements 5 0 0 Result Diagram: 12/08/16 0747 12/08/16 0747 Imaging Last Impressions Chest X-Ray 12/04/16 0000 Signed Impressions: Service Date/Time: Sunday, December 04, 2016 12:28 - CONCLUSION: There is platelike atelectasis in the left lower lung. Otherwise the rest of the lungs are grossly clear. Chaparro Reece MD Tibia/Fibula X-Ray 12/03/16 0000 Signed Impressions: Service Date/Time: Saturday, December 03, 2016 15:09 - CONCLUSION: Excellent alignment of the patient's tibial fracture post rodding. Patient has a minimally displaced fibular fracture as well. Umesh Farah MD Ankle X-Ray 12/02/16 0000 Signed Impressions: Service Date/Time: November 18:16 - CONCLUSION: 1. The ankle mortise is intact. 2. Distal tibial and fibular fractures again noted. Please see right leg report for further details. Javier Marino MD Objective Remarks GENERAL: Well-developed, well-nourished in no distress SKIN: Warm and dry. HEAD: Atraumatic. Normocephalic. EYES: Pupils equal and round. No scleral icterus. No injection or drainage. ENT: No nasal bleeding or discharge. Mucous membranes pink and moist. NECK: Trachea midline. No JVD. CARDIOVASCULAR: Regular rate and rhythm. RESPIRATORY: No accessory muscle use. Clear to auscultation. Breath sounds equal bilaterally. GASTROINTESTINAL: Abdomen soft, non-tender, nondistended. MUSCULOSKELETAL: Right lower extremity with dry dressing NEUROLOGICAL: Awake and alert. No obvious cranial nerve deficits. Motor grossly within normal limits. Five out of 5 muscle strength in the arms and legs. Normal speech. PSYCHIATRIC: Appropriate mood and affect; insight and judgment normal. Procedures Reymundo fixation right lower extremity A/P Problem List: (1) Fibula fracture ICD Code: S82.409A Status: Acute (2) Tibia fracture ICD Code: S82.209A Status: Acute Assessment and Plan Respiratory insufficiency -Most likely secondary to over sedation from narcotics. -Resolved. Acute on chronic renal failure stage III. Resolved T2 DM, uncontrolled. A1c 10.8 -She is on insulin sliding scale. -Patient is allergic to Levemir and that is on our formulary. She can resume [facility] family to bring in supply right closed tibial fracture status post reymundo fixation on December 03. -Nonweightbearing, incentive spirometry, wound care, physical therapy and pain management with Percocet. Patient counseled regarding narcotics Anemia -Secondary to blood loss due to surgery. -Status post transfusion with 2 PRBC -Responded appropriately to transfusion. -Continue to trend. -GI was consulted due to anemia. Per GI she had colonoscopy and endoscopy done 2 months ago which was normal. She had no signs of any GI bleed. GI signed off. Hypertension. Suboptimal control. Add Norvasc. Continue scheduled clonidine and add clonidine as needed History of seizure disorder, CVA and lupus -Continue home medication. -On Keppra 500mg BID, Dilantin 100mg BID. Repeat Dilantin level in the morning. Seizure precautions DVT prophylaxis with SCDs and Lovenox 30mg QD per Ortho Discharge Planning Needs rehab but no SNF benefits. CIR ff Ramesh Davis MD Dec 11, 2016 13:48
[2016-12-11] MEDS ORDERED: ENOX30P SQ (13:50)
[2016-12-11] MEDS ORDERED: CLON.1 PO (13:50)
[2016-12-11] MEDS ORDERED: AMLO5 PO (13:50)
--- NOTE | 2016-12-11 13:51 | HHI.DCPOC ---
Discharge Care Plan Diagnosis: (1) DM (diabetes mellitus) type I uncontrolled with renal manifestation (2) CKD (chronic kidney disease), stage III (3) Closed fracture of right tibia and fibula Your Health Problems Are: Difficulty with ADL Exercise Tolerance Goals to Promote Your Health * To prevent worsening of your condition and complications * To maintain your health at the optimal level Directions to Meet Your Goals Take your medications as prescribed Follow your dietary instruction Follow activity as directed Keep your appointments as scheduled Take your immunizations and boosters as scheduled If your symptoms worsen call your PCP, if no PCP go to Urgent Care Center or Emergency Room Smoking is Dangerous to Your Health. Avoid second hand smoke Call the 24-hour hour crisis hotline for domestic abuse at Ramesh Davis MD Dec 11, 2016 13:51
[2016-12-11] MEDS: MUPIROCIN 2% OINT 1 APPLIC/GM SYR EACH NARE SCH ×2 (14:00→21:00)
[2016-12-11 16:00] VITALS: BP 166/94; PULSE 107; RESP 18; TEMP 97.2; O2SAT 99
[2016-12-11] MEDS: oxyCODONE/ACETAMINOPHEN 5 MG/325 MG TAB PO PRN (16:54)
[2016-12-11 21:00] VITALS: BP 123/66; PULSE 97; RESP 17; TEMP 97.8; O2SAT 93
[2016-12-11] MEDS ORDERED: INSULIN DETEMIR 100 UNITS/ML VIAL SQ SCH (21:00)
[2016-12-11 23:30] VITALS: BP 193/97; PULSE 100; RESP 17; TEMP 98.3; O2SAT 95
[2016-12-12] MEDS: cloNIDine HCL 0.1 MG TAB PO SCH ×4 (00:22→23:23)
[2016-12-12 05:00] VITALS: BP 151/79; PULSE 90; RESP 17; TEMP 99.1; O2SAT 93
[2016-12-12] MEDS: INSULIN NovoLIN REGULAR SUPPLEMENTAL SCALE SQ SCH ×4 (06:29→21:00)
[2016-12-12 08:00] VITALS: BP 163/86; PULSE 92; RESP 17; TEMP 96.9; O2SAT 95
[2016-12-12] MEDS: CALCIUM CARBONATE 500 MG CHEWABLE TAB CHEW SCH ×2 (09:00→21:00)
[2016-12-12] MEDS: SODIUM CHLORIDE 0.9% FLUSH 10 ML FLUSH IV FLUSH SCH ×2 (09:00→23:23)
[2016-12-12] MEDS: MUPIROCIN 2% OINT 1 APPLIC/GM SYR EACH NARE SCH ×2 (09:00→21:00)
[2016-12-12] MEDS: DOCUSATE SODIUM 50 MG/SENNA 8.6 MG TAB PO SCH ×2 (09:00→21:00)
[2016-12-12] MEDS: PHENYTOIN SODIUM 100 MG CAP PO SCH ×2 (09:35→23:24)
[2016-12-12] MEDS: FLUoxetine HCL 10 MG CAP PO SCH (09:35)
[2016-12-12] MEDS: ATORVASTATIN 80 MG TAB PO SCH (09:35)
[2016-12-12] MEDS: ENOXAPARIN SODIUM 30 MG/0.3 ML SYRINGE SQ SCH (09:35)
[2016-12-12] MEDS: levETIRAcetam 500 MG TAB PO SCH ×2 (09:35→23:24)
[2016-12-12] MEDS: amLODIPine BESYLATE 5 MG TAB PO SCH (09:35)
--- NOTE | 2016-12-12 10:18 | HHI.PR ---
Subjective Remarks Follow-up hypertension. BP still elevated denies headache, chest pain and shortness of breath. Slept better improving pain and not asking for a BP medications today. Discussed with RN and pharmacy Objective Vitals Vital Signs Date Time Temp Pulse Resp B/P Pulse Ox O2 Delivery O2 Flow Rate FiO2 12/12/16 08:00 96.9 92 17 163/86 95 12/12/16 05:00 99.1 90 17 151/79 93 12/11/16 23:30 98.3 100 17 193/97 95 12/11/16 21:00 Room Air 12/11/16 21:00 97.8 97 17 123/66 93 12/11/16 16:00 97.2 107 18 166/94 99 12/11/16 12:00 98.1 100 18 183/96 98 I/O 12/11/16 12/11/16 12/11/16 12/12/16 12/12/16 12/12/16 07:00 15:00 23:00 07:00 15:00 23:00 Intake Total 360 ml 960 ml 240 ml 120 ml Balance 360 ml 960 ml 240 ml 120 ml Intake Oral 360 ml 960 ml 240 ml 120 ml # Voids 2 3 1 1 # Bowel Movements 0 2 0 0 Result Diagram: 12/08/16 0747 12/08/16 0747 Imaging Last Impressions Chest X-Ray 12/04/16 0000 Signed Impressions: Service Date/Time: Sunday, December 04, 2016 12:28 - CONCLUSION: There is platelike atelectasis in the left lower lung. Otherwise the rest of the lungs are grossly clear. Chaparro Reece MD Tibia/Fibula X-Ray 12/03/16 0000 Signed Impressions: Service Date/Time: Saturday, December 03, 2016 15:09 - CONCLUSION: Excellent alignment of the patient's tibial fracture post rodding. Patient has a minimally displaced fibular fracture as well. Umesh Farah MD Ankle X-Ray 12/02/16 0000 Signed Impressions: Service Date/Time: November 18:16 - CONCLUSION: 1. The ankle mortise is intact. 2. Distal tibial and fibular fractures again noted. Please see right leg report for further details. Javier Marino MD Objective Remarks GENERAL: Well-developed, well-nourished in no distress SKIN: Warm and dry. HEAD: Atraumatic. Normocephalic. EYES: Pupils equal and round. No scleral icterus. No injection or drainage. ENT: No nasal bleeding or discharge. Mucous membranes pink and moist. NECK: Trachea midline. No JVD. CARDIOVASCULAR: Regular rate and rhythm. RESPIRATORY: No accessory muscle use. Clear to auscultation. Breath sounds equal bilaterally. GASTROINTESTINAL: Abdomen soft, non-tender, nondistended. MUSCULOSKELETAL: Right lower extremity with dry dressing NEUROLOGICAL: Awake and alert. No obvious cranial nerve deficits. Motor grossly within normal limits. Five out of 5 muscle strength in the arms and legs. Normal speech. PSYCHIATRIC: Appropriate mood and affect; insight and judgment normal. Procedures Reymundo fixation right lower extremity A/P Problem List: (1) Fibula fracture ICD Code: S82.409A Status: Acute (2) Tibia fracture ICD Code: S82.209A Status: Acute Assessment and Plan Respiratory insufficiency -Most likely secondary to over sedation from narcotics. -Resolved. Acute on chronic renal failure stage III. Resolved T2 DM, uncontrolled. A1c 10.8 -She is on insulin sliding scale. -Patient is allergic to Levemir and that is on our formulary. She can resume [employer] family to bring in supply right closed tibial fracture status post reymundo fixation on December 03. -Nonweightbearing, incentive spirometry, wound care, physical therapy and pain management with Percocet. Patient counseled regarding narcotics Anemia -Secondary to blood loss due to surgery. -Status post transfusion with 2 PRBC -Responded appropriately to transfusion. -Continue to trend. -GI was consulted due to anemia. Per GI she had colonoscopy and endoscopy done 2 months ago which was normal. She had no signs of any GI bleed. GI signed off. Hypertension. Suboptimal control. Added Norvasc. Continue scheduled clonidine and add clonidine as needed History of seizure disorder, CVA and lupus -Continue home medication. -On Keppra 500mg BID, Dilantin 100mg BID. Repeat Dilantin level 3.6 corrected level .2. Increase Dilantin to 200 mg twice a day and give stat dose of 500 mg by mouth 1. Repeat Dilantin level in the morning. Seizure precautions DVT prophylaxis with SCDs and Lovenox 30mg QD per Ortho Discharge Planning Needs rehab but no SNF benefits. CIR ff Abando,Casimiro MD Dec 12, 2016 10:17
[2016-12-12] MEDS: oxyCODONE/ACETAMINOPHEN 5 MG/325 MG TAB PO PRN ×2 (11:16→15:10)
[2016-12-12 12:00] VITALS: BP 159/79; PULSE 99; RESP 17; TEMP 97.6; O2SAT 94
[2016-12-12] MEDS ORDERED: PHENYTOIN SODIUM 100 MG CAP PO ONE ×2 (14:00)
[2016-12-12 16:00] VITALS: BP 144/77; PULSE 107; RESP 18; TEMP 97.9; O2SAT 96
[2016-12-12 21:00] VITALS: BP 142/79; PULSE 98; RESP 17; TEMP 96.4; O2SAT 95
[2016-12-12] MEDS: INSULIN GLARGINE 1,000 UNITS/10 ML VIAL SQ SCH (21:00)
[2016-12-13] VITALS: BP 167/92; PULSE 92; RESP 17; TEMP 96.1; O2SAT 95
[2016-12-13 03:45] VITALS: BP 151/84; PULSE 89; RESP 17; TEMP 97.2; O2SAT 92
[2016-12-13] MEDS: cloNIDine HCL 0.1 MG TAB PO SCH ×3 (06:08→22:05)
[2016-12-13] MEDS: INSULIN NovoLIN REGULAR SUPPLEMENTAL SCALE SQ SCH ×4 (06:47→20:14)
[2016-12-13 07:55] VITALS: BP 152/89; PULSE 93; RESP 16; TEMP 97.9; O2SAT 93
[2016-12-13] MEDS: ATORVASTATIN 80 MG TAB PO SCH (08:13)
[2016-12-13] MEDS: ENOXAPARIN SODIUM 30 MG/0.3 ML SYRINGE SQ SCH (08:13)
[2016-12-13] MEDS: PHENYTOIN SODIUM 100 MG CAP PO SCH ×2 (08:15→20:12)
[2016-12-13] MEDS: FLUoxetine HCL 10 MG CAP PO SCH (08:16)
[2016-12-13] MEDS: levETIRAcetam 500 MG TAB PO SCH ×2 (08:16→20:12)
[2016-12-13] MEDS: amLODIPine BESYLATE 5 MG TAB PO SCH (08:18)
[2016-12-13] MEDS: CALCIUM CARBONATE 500 MG CHEWABLE TAB CHEW SCH ×2 (08:18→20:14)
[2016-12-13] MEDS: DOCUSATE SODIUM 50 MG/SENNA 8.6 MG TAB PO SCH ×2 (08:19→20:14)
[2016-12-13] MEDS: MUPIROCIN 2% OINT 1 APPLIC/GM SYR EACH NARE SCH ×2 (08:19→20:14)
[2016-12-13] MEDS: SODIUM CHLORIDE 0.9% FLUSH 10 ML FLUSH IV FLUSH SCH ×2 (08:19→20:17)
--- NOTE | 2016-12-13 09:40 | HHI.PR ---
Subjective Remarks Follow-up orthopedic injury, seizure and diabetes. Patient doing okay pain under control. She is stooling. No seizure. Refused Lantus last night. Overall fingersticks under control except at 11:00am 202. Discussed with RN and case management Objective Vitals Vital Signs Date Time Temp Pulse Resp B/P Pulse Ox O2 Delivery O2 Flow Rate FiO2 12/13/16 03:45 97.2 89 17 151/84 92 12/13/16 03:22 Room Air 12/13/16 00:00 96.1 92 17 167/92 95 12/12/16 21:00 96.4 98 17 142/79 95 12/12/16 16:00 97.9 107 18 144/77 96 12/12/16 12:00 97.6 99 17 159/79 94 I/O 12/12/16 12/12/16 12/12/16 12/13/16 12/13/16 12/13/16 07:00 15:00 23:00 07:00 15:00 23:00 Intake Total 120 ml 840 ml 240 ml Balance 120 ml 840 ml 240 ml Intake Oral 120 ml 840 ml 240 ml # Voids 1 3 1 # Bowel Movements 0 0 0 Imaging Last Impressions Chest X-Ray 12/04/16 0000 Signed Impressions: Service Date/Time: Sunday, December 04, 2016 12:28 - CONCLUSION: There is platelike atelectasis in the left lower lung. Otherwise the rest of the lungs are grossly clear. Chaparro Reece MD Tibia/Fibula X-Ray 12/03/16 0000 Signed Impressions: Service Date/Time: Saturday, December 03, 2016 15:09 - CONCLUSION: Excellent alignment of the patient's tibial fracture post rodding. Patient has a minimally displaced fibular fracture as well. Umesh Farah MD Ankle X-Ray 12/02/16 0000 Signed Impressions: Service Date/Time: November 18:16 - CONCLUSION: 1. The ankle mortise is intact. 2. Distal tibial and fibular fractures again noted. Please see right leg report for further details. Javier Marino MD Objective Remarks GENERAL: Well-developed, well-nourished in no distress SKIN: Warm and dry. HEAD: Atraumatic. Normocephalic. EYES: Pupils equal and round. No scleral icterus. No injection or drainage. ENT: No nasal bleeding or discharge. Mucous membranes pink and moist. NECK: Trachea midline. No JVD. CARDIOVASCULAR: Regular rate and rhythm. RESPIRATORY: No accessory muscle use. Clear to auscultation. Breath sounds equal bilaterally. GASTROINTESTINAL: Abdomen soft, non-tender, nondistended. MUSCULOSKELETAL: Right lower extremity with dry dressing NEUROLOGICAL: Awake and alert. No obvious cranial nerve deficits. Motor grossly within normal limits. Five out of 5 muscle strength in the arms and legs. Normal speech. Nonfocal PSYCHIATRIC: Appropriate mood and affect; insight and judgment normal. Procedures Reymundo fixation right lower extremity A/P Problem List: (1) Fibula fracture ICD Code: S82.409A Status: Acute (2) Tibia fracture ICD Code: S82.209A Status: Acute Assessment and Plan Respiratory insufficiency -Most likely secondary to over sedation from narcotics. -Resolved. Acute on chronic renal failure stage III. Resolved T2 DM, uncontrolled. A1c 10.8 -She is on insulin sliding scale. -Patient is allergic to Levemir and that is on our formulary. She can resume [employer] family to bring in supply -Refuses Lantus last night. Overall fingersticks under control except at 11: 00am 202 right closed tibial fracture status post reymundo fixation on December 03. -Nonweightbearing, incentive spirometry, wound care, physical therapy and pain management with Percocet. Patient counseled regarding narcotics Anemia -Secondary to blood loss due to surgery. -Status post transfusion with 2 PRBC -Responded appropriately to transfusion. -Continue to trend. -GI was consulted due to anemia. Per GI she had colonoscopy and endoscopy done 2 months ago which was normal. She had no signs of any GI bleed. GI signed off. Hypertension. Improving on additional Norvasc. Continue scheduled clonidine and as needed History of seizure disorder, CVA and lupus -Continue home medication. -On Keppra 500mg BID, Dilantin 100mg BID. Repeat Dilantin level 4.9 corrected level 8.8. Extra Dilantin 300 mg x [address] 200 mg twice a day. Repeat Dilantin level in the morning. Seizure precautions DVT prophylaxis with SCDs and Lovenox 30mg QD per Ortho Discharge Planning Needs rehab but no SNF benefits. CIR ff Ramesh Davis MD Dec 13, 2016 09:39
[2016-12-13 11:50] VITALS: BP 139/79; PULSE 91; RESP 17; TEMP 98.5; O2SAT 96
[2016-12-13] MEDS ORDERED: PHENYTOIN SODIUM 100 MG CAP PO ONE (14:00)
[2016-12-13 15:14] VITALS: BP 136/77; PULSE 97; RESP 18; TEMP 97.9; O2SAT 97
[2016-12-13 19:00] VITALS: BP 130/70; PULSE 88; RESP 16; TEMP 97; O2SAT 93
[2016-12-13] MEDS: INSULIN GLARGINE 1,000 UNITS/10 ML VIAL SQ SCH (20:19)
[2016-12-14] VITALS: BP 130/73; PULSE 83; RESP 16; TEMP 98.1; O2SAT 93
[2016-12-14 04:00] VITALS: BP 143/89; PULSE 88; RESP 17; TEMP 96.9; O2SAT 96
[2016-12-14] MEDS: cloNIDine HCL 0.1 MG TAB PO SCH ×3 (05:05→21:59)
[2016-12-14] MEDS: INSULIN NovoLIN REGULAR SUPPLEMENTAL SCALE SQ SCH ×4 (06:28→20:11)
[2016-12-14 08:00] VITALS: BP 155/84; PULSE 87; RESP 16; TEMP 98; O2SAT 94
[2016-12-14] MEDS: DOCUSATE SODIUM 50 MG/SENNA 8.6 MG TAB PO SCH ×2 (09:00→20:11)
[2016-12-14] MEDS: CALCIUM CARBONATE 500 MG CHEWABLE TAB CHEW SCH ×2 (09:00→20:11)
[2016-12-14] MEDS: MUPIROCIN 2% OINT 1 APPLIC/GM SYR EACH NARE SCH ×2 (09:00→20:11)
[2016-12-14] MEDS: ATORVASTATIN 80 MG TAB PO SCH (10:32)
[2016-12-14] MEDS: ENOXAPARIN SODIUM 30 MG/0.3 ML SYRINGE SQ SCH (10:32)
[2016-12-14] MEDS: levETIRAcetam 500 MG TAB PO SCH ×2 (10:33→21:59)
[2016-12-14] MEDS: amLODIPine BESYLATE 5 MG TAB PO SCH (10:33)
[2016-12-14] MEDS: FLUoxetine HCL 10 MG CAP PO SCH (10:33)
[2016-12-14] MEDS: SODIUM CHLORIDE 0.9% FLUSH 10 ML FLUSH IV FLUSH SCH ×2 (10:33→22:02)
[2016-12-14] MEDS: PHENYTOIN SODIUM 100 MG CAP PO SCH ×2 (10:33→21:59)
[2016-12-14 11:59] VITALS: BP 188/97; PULSE 96; RESP 16; TEMP 98.3; O2SAT 97
--- NOTE | 2016-12-14 14:26 | HHI.PR ---
Objective Vitals Vital Signs Date Time Temp Pulse Resp B/P Pulse Ox O2 Delivery O2 Flow Rate FiO2 12/14/16 11:59 98.3 96 16 188/97 97 12/14/16 08:00 98.0 87 16 155/84 94 12/14/16 07:18 Room Air 12/14/16 04:00 96.9 88 17 143/89 96 12/14/16 00:00 98.1 83 16 130/73 93 12/13/16 19:00 97.0 88 16 130/70 93 12/13/16 15:14 97.9 97 18 136/77 97 I/O 12/13/16 12/13/16 12/13/16 12/14/16 12/14/16 12/14/16 07:00 15:00 23:00 07:00 15:00 23:00 Intake Total 960 ml 480 ml 340 ml Balance 960 ml 480 ml 340 ml Intake Oral 960 ml 480 ml 340 ml # Voids 2 3 2 # Bowel Movements 0 0 0 Procedures Reymundo fixation right lower extremity A/P Problem List: (1) Fibula fracture ICD Code: S82.409A Status: Acute (2) Tibia fracture ICD Code: S82.209A Status: Acute Eliana Clay MD Dec 14, 2016 14:26
--- NOTE | 2016-12-14 14:43 | HHI.PR ---
Subjective Remarks f/u sz and DM. Doing ok. BP up pt claims she was in pain when it was taken estelle RN Objective Vitals Vital Signs Date Time Temp Pulse Resp B/P Pulse Ox O2 Delivery O2 Flow Rate FiO2 12/14/16 11:59 98.3 96 16 188/97 97 12/14/16 08:00 98.0 87 16 155/84 94 12/14/16 07:18 Room Air 12/14/16 04:00 96.9 88 17 143/89 96 12/14/16 00:00 98.1 83 16 130/73 93 12/13/16 19:00 97.0 88 16 130/70 93 12/13/16 15:14 97.9 97 18 136/77 97 I/O 12/13/16 12/13/16 12/13/16 12/14/16 12/14/16 12/14/16 07:00 15:00 23:00 07:00 15:00 23:00 Intake Total 960 ml 480 ml 340 ml Balance 960 ml 480 ml 340 ml Intake Oral 960 ml 480 ml 340 ml # Voids 2 3 2 # Bowel Movements 0 0 0 Objective Remarks GENERAL: Well-developed, well-nourished in no distress SKIN: Warm and dry. HEAD: Atraumatic. Normocephalic. EYES: Pupils equal and round. No scleral icterus. ENT: No nasal bleeding or discharge. Mucous membranes pink and moist. NECK: Trachea midline. No JVD. CARDIOVASCULAR: Regular rate and rhythm. RESPIRATORY: No accessory muscle use. Clear to auscultation. Breath sounds equal bilaterally. GASTROINTESTINAL: Abdomen soft, non-tender, nondistended. MUSCULOSKELETAL: Right lower extremity with dry dressing NEUROLOGICAL: Awake and alert. No obvious cranial nerve deficits. Motor grossly within normal limits. Five out of 5 muscle strength in the arms and legs. Normal speech. Nonfocal PSYCHIATRIC: Appropriate mood and affect; insight and judgment normal. Procedures Reymundo fixation right lower extremity A/P Problem List: (1) Fibula fracture ICD Code: S82.409A Status: Acute (2) Tibia fracture ICD Code: S82.209A Status: Acute Assessment and Plan Respiratory insufficiency -Most likely secondary to over sedation from narcotics. -Resolved. Acute on chronic renal failure stage III. Resolved T2 DM, uncontrolled. A1c 10.8 -She is on insulin sliding scale. -Patient is allergic to Levemir and that is on our formulary. She can resume [employer] family to bring in supply -Stable right closed tibial fracture status post reymundo fixation on December 03. -Nonweightbearing, incentive spirometry, wound care, physical therapy and pain management with Percocet. Patient counseled regarding narcotics Anemia -Secondary to blood loss due to surgery. -Status post transfusion with 2 PRBC -Responded appropriately to transfusion. -Continue to trend. -GI was consulted due to anemia. Per GI she had colonoscopy and endoscopy done 2 months ago which was normal. She had no signs of any GI bleed. GI signed off. Hypertension. Improving on additional Norvasc. BP up today 2/2 pain. Continue scheduled clonidine and as needed History of seizure disorder, CVA and lupus -Continue home medication. -On Keppra 500mg BID, Dilantin 100mg BID. Repeat Dilantin level 9.4. Seizure precautions DVT prophylaxis with SCDs and Lovenox 30mg QD per Ortho Discharge Planning Needs rehab but no SNF benefits. CIR ff Ramesh Davis MD Dec 14, 2016 14:43
[2016-12-14 16:00] VITALS: BP 187/105; PULSE 93; RESP 16; TEMP 97.9; O2SAT 97
[2016-12-14 20:10] VITALS: BP 134/73; PULSE 93; RESP 17; TEMP 96.9; O2SAT 93
[2016-12-14] MEDS: INSULIN GLARGINE 1,000 UNITS/10 ML VIAL SQ SCH (22:02)
[2016-12-15 00:15] VITALS: BP 102/58; PULSE 91; RESP 17; TEMP 98.1; O2SAT 92
[2016-12-15 04:20] VITALS: BP 121/70; PULSE 91; RESP 17; TEMP 97.5; O2SAT 92
[2016-12-15] MEDS: cloNIDine HCL 0.1 MG TAB PO SCH ×3 (05:35→21:52)
[2016-12-15] MEDS: INSULIN NovoLIN REGULAR SUPPLEMENTAL SCALE SQ SCH ×4 (05:36→21:00)
[2016-12-15 07:48] VITALS: BP 102/60; PULSE 90; RESP 16; TEMP 98.2; O2SAT 93
--- NOTE | 2016-12-15 08:50 | HHI.PR ---
Subjective Remarks Follow-up hypertension, diabetes mellitus and constipation. She refuses [facility] states she has been stooling. Developed hypoglycemia fingerstick of 48 received D50. Discussed with RN, case management and physical therapy who stated patient still noncompliant with nonweightbearing status during PT Objective Vitals Vital Signs Date Time Temp Pulse Resp B/P Pulse Ox O2 Delivery O2 Flow Rate FiO2 12/15/16 04:20 97.5 91 17 121/70 92 12/15/16 00:15 98.1 91 17 102/58 92 12/14/16 20:10 96.9 93 17 134/73 93 12/14/16 16:00 97.9 93 16 187/105 97 12/14/16 11:59 98.3 96 16 188/97 97 I/O 12/14/16 12/14/16 12/14/16 12/15/16 12/15/16 12/15/16 07:00 15:00 23:00 07:00 15:00 23:00 Intake Total 340 ml 720 ml 240 ml 240 ml Balance 340 ml 720 ml 240 ml 240 ml Intake Oral 340 ml 720 ml 240 ml 240 ml # Voids 2 2 1 1 # Bowel Movements 0 0 0 0 Result Diagram: 12/15/16 0707 Imaging Last Impressions Chest X-Ray 12/04/16 0000 Signed Impressions: Service Date/Time: Sunday, December 04, 2016 12:28 - CONCLUSION: There is platelike atelectasis in the left lower lung. Otherwise the rest of the lungs are grossly clear. Chaparro Reece MD Tibia/Fibula X-Ray 12/03/16 0000 Signed Impressions: Service Date/Time: Saturday, December 03, 2016 15:09 - CONCLUSION: Excellent alignment of the patient's tibial fracture post rodding. Patient has a minimally displaced fibular fracture as well. Umesh Farah MD Ankle X-Ray 12/02/16 0000 Signed Impressions: Service Date/Time: November 18:16 - CONCLUSION: 1. The ankle mortise is intact. 2. Distal tibial and fibular fractures again noted. Please see right leg report for further details. Javier Marino MD Objective Remarks GENERAL: Well-developed, well-nourished in no distress SKIN: Warm and dry. HEAD: Atraumatic. Normocephalic. EYES: Pupils equal and round. No scleral icterus. ENT: No nasal bleeding or discharge. Mucous membranes pink and moist. NECK: Trachea midline. No JVD. CARDIOVASCULAR: Regular rate and rhythm. RESPIRATORY: No accessory muscle use. Clear to auscultation. Breath sounds equal bilaterally. GASTROINTESTINAL: Abdomen soft, non-tender, nondistended. MUSCULOSKELETAL: Right lower extremity with dry dressing NEUROLOGICAL: Awake and alert. No obvious cranial nerve deficits. Motor grossly within normal limits. Five out of 5 muscle strength in the arms and legs. Normal speech. Nonfocal PSYCHIATRIC: Appropriate mood and affect; insight and judgment normal. Procedures Reymundo fixation right lower extremity A/P Problem List: (1) Fibula fracture ICD Code: S82.409A Status: Acute (2) Tibia fracture ICD Code: S82.209A Status: Acute Assessment and Plan Respiratory insufficiency -Most likely secondary to over sedation from narcotics. -Resolved. Acute on chronic renal failure stage III. Resolved T2 DM, uncontrolled. A1c 10.8 -She is on insulin sliding scale. -Patient is allergic to Levemir and that is on our formulary. She can resume [employer] family to bring in supply -Hypoglycemic this morning received D50 with hypoglycemia protocol. Decrease Lantus to 6 units at bedtime right closed tibial fracture status post reymundo fixation on December 03. -Nonweightbearing, incentive spirometry, wound care, physical therapy and pain management with Percocet. Patient counseled regarding narcotics Anemia -Secondary to blood loss due to surgery. -Status post transfusion with 2 PRBC -Responded appropriately to transfusion. -Continue to trend. -GI was consulted due to anemia. Per GI she had colonoscopy and endoscopy done 2 months ago which was normal. She had no signs of any GI bleed. GI signed off. Hypertension. Improving on additional Norvasc Continue scheduled clonidine and as needed History of seizure disorder, CVA and lupus -Continue home medication. -On Keppra 500mg BID, Dilantin 100mg BID. Repeat non-corrected Dilantin level 9.4 after Dilantin loading and increasing Dilantin to 20 mg twice a day. Repeat Dilantin the morning Seizure precautions DVT prophylaxis with SCDs and Lovenox 30mg QD per Ortho Discharge Planning Needs rehab but no SNF benefits. [facility] no [facility] bed for month of December. Patient has no good support at home. Awaiting transfer to [place] for rehabilitation discussed with Ramesh River MD Dec 15, 2016 08:50
[2016-12-15] MEDS: DOCUSATE SODIUM 50 MG/SENNA 8.6 MG TAB PO SCH ×2 (09:00→21:52)
[2016-12-15] MEDS: CALCIUM CARBONATE 500 MG CHEWABLE TAB CHEW SCH ×2 (09:00→21:51)
[2016-12-15] MEDS: SODIUM CHLORIDE 0.9% FLUSH 10 ML FLUSH IV FLUSH SCH ×2 (09:00→21:51)
[2016-12-15] MEDS: MUPIROCIN 2% OINT 1 APPLIC/GM SYR EACH NARE SCH ×2 (09:02→21:00)
[2016-12-15] MEDS: ENOXAPARIN SODIUM 30 MG/0.3 ML SYRINGE SQ SCH (09:02)
[2016-12-15] MEDS: PHENYTOIN SODIUM 100 MG CAP PO SCH ×2 (09:03→21:52)
[2016-12-15] MEDS: FLUoxetine HCL 10 MG CAP PO SCH (09:03)
[2016-12-15] MEDS: levETIRAcetam 500 MG TAB PO SCH ×2 (09:03→21:52)
[2016-12-15] MEDS: ATORVASTATIN 80 MG TAB PO SCH (09:03)
[2016-12-15] MEDS: amLODIPine BESYLATE 5 MG TAB PO SCH (09:03)
[2016-12-15 11:30] VITALS: BP 143/91; PULSE 92; RESP 14; TEMP 96.7; O2SAT 96
[2016-12-15] MEDS: oxyCODONE/ACETAMINOPHEN 5 MG/325 MG TAB PO PRN (13:57)
[2016-12-15 15:15] VITALS: BP 133/75; PULSE 89; RESP 18; TEMP 98.6; O2SAT 93
[2016-12-15 20:15] VITALS: BP 130/76; PULSE 88; RESP 16; TEMP 97.8; O2SAT 93
[2016-12-15] MEDS: INSULIN GLARGINE 1,000 UNITS/10 ML VIAL SQ SCH (21:00)
[2016-12-16 00:15] VITALS: BP 107/63; PULSE 88; RESP 17; TEMP 97.9; O2SAT 92
[2016-12-16] MEDS: INSULIN NovoLIN REGULAR SUPPLEMENTAL SCALE SQ SCH ×4 (06:24→20:35)
[2016-12-16] MEDS: cloNIDine HCL 0.1 MG TAB PO SCH ×3 (06:24→22:48)
[2016-12-16 08:00] VITALS: BP 186/101; PULSE 98; RESP 14; TEMP 97.7; O2SAT 96
[2016-12-16] MEDS: DOCUSATE SODIUM 50 MG/SENNA 8.6 MG TAB PO SCH ×2 (09:00→20:30)
[2016-12-16] MEDS: MUPIROCIN 2% OINT 1 APPLIC/GM SYR EACH NARE SCH ×2 (09:00→20:29)
[2016-12-16] MEDS: CALCIUM CARBONATE 500 MG CHEWABLE TAB CHEW SCH ×2 (09:00→20:29)
[2016-12-16] MEDS: SODIUM CHLORIDE 0.9% FLUSH 10 ML FLUSH IV FLUSH SCH ×2 (09:00→20:29)
[2016-12-16] MEDS: levETIRAcetam 500 MG TAB PO SCH ×2 (09:35→20:29)
[2016-12-16] MEDS: FLUoxetine HCL 10 MG CAP PO SCH (09:35)
[2016-12-16] MEDS: amLODIPine BESYLATE 5 MG TAB PO SCH (09:35)
[2016-12-16] MEDS: ATORVASTATIN 80 MG TAB PO SCH (09:35)
[2016-12-16] MEDS: PHENYTOIN SODIUM 100 MG CAP PO SCH ×2 (09:36→20:29)
[2016-12-16] MEDS: ENOXAPARIN SODIUM 30 MG/0.3 ML SYRINGE SQ SCH (09:37)
--- NOTE | 2016-12-16 10:10 | HHI.PR ---
Subjective Remarks in no acute distress. pain seems to be controlled. no new complaints. Objective Vitals Vital Signs Date Time Temp Pulse Resp B/P Pulse Ox O2 Delivery O2 Flow Rate FiO2 12/16/16 08:00 97.7 98 14 186/101 96 12/16/16 00:15 97.9 88 17 107/63 92 12/15/16 20:15 97.8 88 16 130/76 93 12/15/16 20:00 93 Room Air 12/15/16 15:15 98.6 89 18 133/75 93 12/15/16 11:30 96.7 92 14 143/91 96 12/15/16 10:44 96 Room Air I/O 12/15/16 12/15/16 12/15/16 12/16/16 12/16/16 12/16/16 07:00 15:00 23:00 07:00 15:00 23:00 Intake Total 240 ml 840 ml 240 ml 120 ml Balance 240 ml 840 ml 240 ml 120 ml Intake Oral 240 ml 840 ml 240 ml 120 ml # Voids 1 2 1 1 # Bowel Movements 0 1 0 0 Result Diagram: 12/15/16 0707 Imaging Last Impressions Chest X-Ray 12/04/16 0000 Signed Impressions: Service Date/Time: Sunday, December 04, 2016 12:28 - CONCLUSION: There is platelike atelectasis in the left lower lung. Otherwise the rest of the lungs are grossly clear. Chaparro Reece MD Tibia/Fibula X-Ray 12/03/16 0000 Signed Impressions: Service Date/Time: Saturday, December 03, 2016 15:09 - CONCLUSION: Excellent alignment of the patient's tibial fracture post rodding. Patient has a minimally displaced fibular fracture as well. Umesh Farah MD Ankle X-Ray 12/02/16 0000 Signed Impressions: Service Date/Time: November 18:16 - CONCLUSION: 1. The ankle mortise is intact. 2. Distal tibial and fibular fractures again noted. Please see right leg report for further details. Javier Marino MD Objective Remarks GENERAL: This is a well-nourished, well-developed patient, in no apparent distress. CARDIOVASCULAR: Regular rate and regular rhythm without murmurs, gallops, or rubs. RESPIRATORY: Clear to auscultation. Breath sounds equal bilaterally. No wheezes , rales, or rhonchi. GASTROINTESTINAL: Abdomen soft, non-tender, nondistended. Normal, active bowel sounds MUSCULOSKELETAL: right knee covered with clean dressing. NEURO: Alert & Oriented x4 to person, place, time, situation. Moves all ext x4 Procedures Reymundo fixation right lower extremity Medications and IVs Current Medications Acetaminophen/ Hydrocodone Bitart (Flatgap 5-325 Mg) 1 tab ONCE ONCE PO Last administered on 12/02/16 18:27; Start 12/02/16 at 18:15; Stop 12/02/16 at 18:16 ; Status DC Sodium Chloride (NS Flush) 2 ml UNSCH PRN IV FLUSH FLUSH AFTER USING IV ACCESS Last administered on 12/02/16 19:20; Start 12/02/16 at 18:30; Stop 12/02/16 at 20:10; Status DC Morphine Sulfate (Morphine Inj) 6 mg ONCE ONCE IV PUSH Last administered on 19:20; Start 12/02/16 at 19:15; Stop 12/02/16 at 19:16; Status DC Sodium Chloride (NS Flush) 2 ml UNSCH PRN IV FLUSH FLUSH AFTER USING IV ACCESS ; Start 12/02/16 at 20:00; Stop 12/03/16 at 16:13; Status DC Sodium Chloride (NS Flush) 2 ml BID IV FLUSH Last administered on 12/03/16 09: 09; Start 12/02/16 at 21:00; Stop 12/03/16 at 16:13; Status DC Naloxone HCl (Narcan Inj) 0.4 mg UNSCH PRN IV SEE LABEL COMMENTS; Start at 20:00 Morphine Sulfate (Morphine Inj) 2 mg Q3H PRN IV PUSH pain >5 Last administered on 12/03/16 09:09; Start 12/02/16 at 20:00; Stop 12/03/16 at 16:16; Status DC Dextrose (D50w (Vial) Inj) 50 ml UNSCH PRN IV HYPOGLYCEMIA-SEE COMMENTS; Start 12/02/16 at 20:15; Stop 12/03/16 at 16:12; Status DC Glucagon (Glucagon Inj) 1 mg UNSCH PRN OTHER HYPOGLYCEMIA-SEE COMMENTS; Start 12/02/16 at 20:15; Stop 12/03/16 at 16:12; Status DC Atorvastatin Calcium (Lipitor) 80 mg DAILY PO Last administered on 12/16/16 09: 35; Start 12/03/16 at 09:00 Clonidine (Catapres) 0.1 mg DAILY PO Last administered on 12/03/16 09:08; Start 12/03/16 at 09:00; Stop 12/04/16 at 12:20; Status DC Fluoxetine HCl (PROzac) 10 mg DAILY PO Last administered on 12/16/16 09:35; Start 12/03/16 at 09:00 Levetriacetam (Keppra) 500 mg BID PO Last administered on 12/16/16 09:35; Start 12/02/16 at 21:00 Phenytoin (Dilantin) 100 mg BID PO Last administered on 12/12/16 09:35; Start 12/02/16 at 21:00; Stop 12/12/16 at 13:50; Status DC Dextrose (D50w (Vial) Inj) 50 ml UNSCH PRN IV HYPOGLYCEMIA-SEE COMMENTS; Start 12/02/16 at 21:15; Stop 12/03/16 at 21:36; Status DC Glucagon (Glucagon Inj) 1 mg UNSCH PRN OTHER HYPOGLYCEMIA-SEE COMMENTS; Start 12/02/16 at 21:15; Stop 12/03/16 at 21:36; Status DC Insulin Aspart 1 1 ACHS SLIDING SCALE SQ ; Start 12/03/16 at 07:00; Stop at 07:00; Status DC Lactated Ringer's 1,000 ml @ 30 mls/hr Q24H PRN IV SEE LABEL COMMENTS; Start at 21:45; Stop 12/04/16 at 12:25; Status DC Sodium Chloride (NS 500 ml Inj) 500 ml @ 30 mls/hr [id number] PRN IV SEE LABEL COMMENTS; Start 12/02/16 at 21:45; Stop 12/04/16 at 12:25; Status DC Metoprolol Tartrate (Lopressor) 25 mg FORMING MACHINE ADJUSTER PRN PO SEE LABEL COMMENTS; Start 12/02/16 at 21:45; Stop 12/05/16 at 21:44; Status DC Povidone Iodine (Betadine 5% Antisepsis Kit) 1 applic FORMING MACHINE ADJUSTER PRN EACH NARE SEE LABEL COMMENTS; Start 12/02/16 at 21:45; Stop 12/05/16 at 21:44; Status DC Chlorhexidine Gluconate (Chlorhexidine 2% Cloth) 3 pack FORMING MACHINE ADJUSTER PRN TOPICAL SEE LABEL COMMENTS; Start 12/02/16 at 21:45; Stop 12/04/16 at 12:27; Status DC Insulin Human Regular (NovoLIN R INJ) See Protocol Table ... FORMING MACHINE ADJUSTER PRN SQ SEE PROTOCOL TABLE Last administered on 12/03/16 12:54; Start 12/02/16 at 21:45 ; Stop 12/04/16 at 12:27; Status DC Acetaminophen (Ofirmev Inj) 1,000 mg STK-MED ONCE IV ; Start 12/03/16 at 13:41; Stop 12/03/16 at 13:42; Status DC Midazolam HCl (Versed Inj) 2 mg STK-MED ONCE .ROUTE ; Start 12/03/16 at 13:41; Stop 12/03/16 at 13:42; Status DC Dexamethasone Sodium Phosphate (Decadron Inj) 4 mg STK-MED ONCE .ROUTE ; Start 12/03/16 at 13:41; Stop 12/03/16 at 13:42; Status DC Famotidine (Pepcid Inj) 20 mg STK-MED ONCE .ROUTE ; Start 12/03/16 at 13:42; Stop 12/03/16 at 13:43; Status DC Vancomycin HCl (Vancomycin Inj) 1,000 mg STK-MED ONCE .ROUTE Last administered on 12/03/16 14:07; Start 12/03/16 at 14:01; Stop 12/03/16 at 14:02; Status DC Clindamycin Phosphate (Cleocin Inj) 600 mg STK-MED ONCE .ROUTE Last administered on 12/03/16 14:11; Start 12/03/16 at 14:01; Stop 12/03/16 at 14:02 ; Status DC Gentamicin Sulfate (Gentamicin Inj) 240 mg STK-MED ONCE .ROUTE Last administered on 12/03/16 14:19; Start 12/03/16 at 14:01; Stop 12/03/16 at 14:02 ; Status DC Sodium Chloride (NS Flush) 2 ml UNSCH PRN IV FLUSH FLUSH AFTER USING IV ACCESS ; Start 12/03/16 at 16:00 Sodium Chloride 2 ml 2 ml BID IV FLUSH Last administered on 12/16/16 09:00; Start 12/03/16 at 21:00 Cefazolin Sodium 1000 mg/Sodium Chloride 100 ml @ 200 mls/hr Q6H IV Last administered on 12/04/16 06:34; Start 12/03/16 at 18:00; Stop 12/04/16 at 06:29 ; Status DC Vancomycin HCl/ Sodium Chloride (Vancomycin Inj/ NS 250 ml Inj) 250 ml @ 250 mls/hr Q12H IV Last administered on 12/04/16 17:10; Start 12/04/16 at 02:00; Stop 12/04/16 at 14:59; Status DC Miscellaneous Information (Post-op Orders (for Pharmacy)) STAT ONCE XX ; Start 12/03/16 at 16:00; Stop 12/03/16 at 16:20; Status DC Enoxaparin Sodium (Lovenox Inj) 30 mg Q12H SQ Last administered on 12/05/16 04 :23; Start 12/04/16 at 04:00; Stop 12/05/16 at 09:52; Status DC Miscellaneous Information UNSCH PRN XX SEE LABEL COMMENTS; Start 12/03/16 at 16:00 Morphine Sulfate (Morphine Inj) 5 mg Q3H PRN IV PUSH Pain >7 when off PLACEMENT INTERVIEWER Last administered on 12/07/16 17:21; Start 12/03/16 at 16:00; Stop 12/08/16 at 09:43 ; Status DC Oxycodone/ Acetaminophen (Percocet 5-325 Mg) 1 tab Q4H PRN PO PAIN LESS THAN 5 ON SCALE Last administered on 12/15/16 13:57; Start 12/03/16 at 16:00 Oxycodone/ Acetaminophen (Percocet 5-325 Mg) 2 tab Q4H PRN PO PAIN SCALE 5 TO 10 Last administered on 12/12/16 15:10; Start 12/03/16 at 16:00 Ketorolac Tromethamine (Toradol Inj) 15 mg Q6H IVP Last administered on 04:23; Start 12/03/16 at 18:00; Stop 12/05/16 at 12:01; Status DC Promethazine HCl (Phenergan) 25 mg Q4H PRN PO NAUSEA OR VOMITING; Start at 16:00 Ondansetron HCl (Zofran Inj) 4 mg Q6H PRN IVP NAUSEA OR VOMITING; Start at 16:00 Zolpidem Tartrate (Ambien) 5 mg HS PRN PO SLEEP; Start 12/03/16 at 16:00 Senna/Docusate Sodium (Rivka-Colace) 1 tab BID PO Last administered on 12/15/16 21:52; Start 12/03/16 at 21:00 Magnesium Hydroxide (Milk Of Magnesia Liq) 30 ml Q12H PRN PO MILD - MODERATE CONSTIPATION; Start 12/03/16 at 16:00 Sennosides (Senokot) 17.2 mg Q12H PRN PO MODERATE - SEVERE CONSTIPATION; Start 12/03/16 at 16:00 Bisacodyl (Dulcolax Supp) 10 mg DAILY PRN RECTAL SEVERE CONSITIPATION; Start at 16:00 Lactulose (Lactulose Liq) 30 ml DAILY PRN PO SEVERE CONSITIPATION; Start at 16:00 Fentanyl Citrate (fentaNYL INJ) 250 mcg STK-MED ONCE .ROUTE ; Start 12/03/16 at 16:12; Stop 12/03/16 at 16:13; Status DC Miscellaneous Information ALL NURSING DEPARTME... UNSCH PRN .XX SEE LABEL COMMENTS; Start 12/03/16 at 18:45; Stop 12/04/16 at 18:44; Status DC Dextrose (D50w (Vial) Inj) 25 ml UNSCH PRN IV PUSH HYPOGLYCEMIA - SEE COMMENTS ; Start 12/03/16 at 21:45; Stop 12/04/16 at 12:27; Status DC Glucagon (Glucagon Inj) 1 mg UNSCH PRN OTHER HYPOGLYCEMIA-SEE COMMENTS; Start 12/03/16 at 21:45; Stop 12/04/16 at 12:27; Status DC Insulin Aspart 1 1 ACHS SLIDING SCALE SQ Last administered on 12/04/16t 10:33 ; Start 12/03/16 at 21:30; Stop 12/04/16 at 12:20; Status DC Sodium Chloride (NS 1000 ml Inj) 1,000 ml @ 100 mls/hr Q10H IV ; Start at 07:00; Stop 12/04/16 at 12:26; Status DC Insulin Human Regular 10 units 10 units ONCE ONCE IV PUSH Last administered on 12/04/16 07:15; Start 12/04/16 at 07:15; Stop 12/04/16 at 07:16; Status DC Sodium Chloride (NS 500 ml Inj) 500 ml @ 500 mls/hr BOLUS ONCE IV Last administered on 12/04/16 07:37; Start 12/04/16 at 07:30; Stop 12/04/16 at 08:29 ; Status DC Miscellaneous Information Patient in critical care unit? Ass... [id number] .XX Last administered on 12/04/16 08:30; Start 12/04/16 at 08:30 Chlorhexidine Gluconate (Chlorhexidine 2% Cloth) 3 pack DAILY@04 TOPICAL Last administered on 12/07/16 04:00; Start 12/05/16 at 04:00; Stop 12/09/16 at 04:01 ; Status DC Chlorhexidine Gluconate 3 pack 3 pack UNSCH PRN TOPICAL HYGIENIC CARE; Start at 08:30; Stop 12/09/16 at 08:16; Status DC Sodium Chloride 1,000 ml @ 999 mls/hr BOLUS ONCE IV Last administered on 12/04 10:20; Start 12/04/16 at 10:00; Stop 12/04/16 at 11:00; Status DC Sodium Chloride (NS 1000 ml Inj) 1,000 ml @ 100 mls/hr Q10H IV ; Start at 10:00; Stop 12/04/16 at 12:26; Status DC Insulin Detemir (Levemir Inj) 10 units BID SQ ; Start 12/04/16 at 21:00; Stop at 21:00; Status DC Insulin Detemir (Levemir Inj) 10 units ONCE ONCE SQ ; Start 12/04/16 at 11:15; Stop 12/04/16 at 11:22; Status DC Calcium Carbonate (Tums Chew) 500 mg ONCE ONCE CHEW ; Start 12/04/16 at 11:15; Stop 12/04/16 at 11:22; Status DC Calcium Carbonate (Tums Chew) 500 mg Q12HR CHEW Last administered on 12/15/16 21:51; Start 12/04/16 at 21:00 Dextrose (D50w (Vial) Inj) 50 ml UNSCH PRN IV HYPOGLYCEMIA-SEE COMMENTS Last administered on 12/04/16 19:41; Start 12/04/16 at 12:15; Stop 12/05/16 at 09:28 ; Status DC Glucagon (Glucagon Inj) 1 mg UNSCH PRN OTHER HYPOGLYCEMIA-SEE COMMENTS; Start 12/04/16 at 12:15; Stop 12/05/16 at 09:28; Status DC Insulin Human Regular 1 1 Q4H SQ Last administered on 12/05/16 04:23; Start at 13:00; Stop 12/05/16 at 09:18; Status DC Sodium Chloride 1,000 ml @ 999 mls/hr BOLUS ONCE IV Last administered on 12/04 13:15; Start 12/04/16 at 12:15; Stop 12/04/16 at 13:15; Status DC Sodium Chloride (NS 1000 ml Inj) 1,000 ml @ 100 mls/hr Q10H IV Last administered on 12/06/16 06:27; Start 12/04/16 at 12:15; Stop 12/06/16 at 10:01 ; Status DC Sodium Polystyrene Sulfonate (Kayexalate Liq) 30 gm ONCE ONCE PO Last administered on 12/04/16 13:15; Start 12/04/16 at 12:15; Stop 12/04/16 at 12:22 ; Status DC Albuterol/ Ipratropium (Duoneb Neb) 1 ampule Q4HR NEB NEB Last administered on 12/08/16 15:36; Start 12/04/16 at 16:00; Stop 12/08/16 at 16:00; Status DC Albuterol/ Ipratropium 1 ampule 1 ampule Q2HR NEB PRN NEB SHORTNESS OF BREATH; Start 12/04/16 at 12:15 Calcium Gluconate/ Sodium Chloride (Calcium Gluconate Inj/NS Inj) 110 ml @ 110 mls/hr ONCE ONCE IV Last administered on 12/05/16 10:22; Start 12/05/16 at 10 :00; Stop 12/05/16 at 10:59; Status DC Dextrose (D50w (Vial) Inj) 50 ml UNSCH PRN IV HYPOGLYCEMIA-SEE COMMENTS Last administered on 12/15/16 05:33; Start 12/05/16 at 09:30 Glucagon (Glucagon Inj) 1 mg UNSCH PRN OTHER HYPOGLYCEMIA-SEE COMMENTS; Start 12/05/16 at 09:30 Insulin Human Regular (NovoLIN R SUPPLEMENTAL SCALE) 1 Q4H SQ Last administered on 12/06/16 09:25; Start 12/05/16 at 10:00; Stop 12/06/16 at 15:03 ; Status DC Enoxaparin Sodium (Lovenox Inj) 30 mg Q24H SQ Last administered on 12/16/16 09: 37; Start 12/06/16 at 09:00 Ketorolac Tromethamine (Toradol Inj) 15 mg Q6H IVP Last administered on 16:12; Start 12/05/16 at 16:15; Stop 12/05/16 at 16:16; Status DC Clonidine (Catapres) 0.1 mg Q8HR PO Last administered on 12/16/16 06:24; Start 12/06/16 at 09:45 Bumetanide (Bumex Inj) 1 mg ONCE ONCE IV PUSH Last administered on 12/06/16 10:28; Start 12/06/16 at 09:45; Stop 12/06/16 at 10:04; Status DC Hydralazine HCl (Apresoline Inj) 10 mg Q6H PRN IV PUSH SYS BP GREATER THAN 160 MMHG Last administered on 12/07/16 16:00; Start 12/06/16 at 10:15; Stop at 13:36; Status DC Insulin Human Regular (NovoLIN R SUPPLEMENTAL SCALE) 1 ACHS SLIDING SCALE SQ Last administered on 12/11/16 11:00; Start 12/06/16 at 16:00; Stop 12/11/16 at 13 :36; Status DC Bumetanide (Bumex Inj) 1 mg ONCE ONCE IV PUSH Last administered on 12/07/16 15:18; Start 12/07/16 at 14:30; Stop 12/07/16 at 14:31; Status DC Insulin Detemir (Levemir Inj) 10 units Q12HR SQ ; Start 12/08/16 at 09:45; Stop 12/08/16 at 10:37; Status DC Insulin Human Regular (NovoLIN R SUPPLEMENTAL SCALE) 1 ACHS SLIDING SCALE SQ Last administered on 12/13/16 15:29; Start 12/11/16 at 16:00 Amlodipine Besylate (Norvasc) 5 mg DAILY PO Last administered on 12/16/16 09:35 ; Start 12/12/16 at 09:00 Clonidine (Catapres) 0.1 mg Q6H PRN PO BP > 180/100; Start 12/11/16 at 13:30 Mupirocin (Bactroban Nasal 2% Oint) 1 applic BID EACH NARE Last administered on 12/15/16 09:02; Start 12/11/16 at 14:00; Stop 12/18/16 at 13:59 Insulin Detemir (Levemir Inj) 10 units HS SQ ; Start 12/11/16 at 21:00; Stop 12/12 at 10:14; Status DC Insulin Glargine (Lantus Inj) 10 units HS SQ Last administered on 12/14/16 22: 02; Start 12/12/16 at 21:00; Stop 12/15/16 at 08:51; Status DC Phenytoin (Dilantin) 200 mg BID PO Last administered on 12/16/16 09:36; Start 12/12/16 at 21:00 Phenytoin (Dilantin) 200 mg ONCE ONCE PO Last administered on 12/12/16 14:22; Start 12/12/16 at 14:00; Stop 12/12/16 at 14:01; Status DC Phenytoin (Dilantin) 300 mg NOW ONCE PO Last administered on 12/12/16 14:22; Start 12/12/16 at 14:00; Stop 12/12/16 at 14:01; Status DC Phenytoin (Dilantin) 300 mg ONCE ONCE PO Last administered on 12/13/16 15:29; Start 12/13/16 at 14:00; Stop 12/13/16 at 14:01; Status DC Insulin Glargine (Lantus Inj) 6 units HS SQ ; Start 12/15/16 at 21:00 A/P Assessment and Plan Respiratory insufficiency -Most likely secondary to over sedation from narcotics. -Resolved. Acute on chronic renal failure stage III. Resolved T2 DM, uncontrolled. A1c 10.8 -She is on insulin sliding scale. -Patient is allergic to Levemir and that is on our formulary. She can resume Lantus family to bring in supply right closed tibial fracture status post reymundo fixation on December 03. -Nonweightbearing, incentive spirometry, wound care, physical therapy and pain management with Percocet. Patient counseled regarding narcotics Anemia -Secondary to blood loss due to surgery. -Status post transfusion with 2 PRBC -Responded appropriately to transfusion. -Continue to trend. -GI was consulted due to anemia. Per GI she had colonoscopy and endoscopy done 2 months ago which was normal. She had no signs of any GI bleed. GI signed off. Hypertension. Improving on additional Norvasc Continue scheduled clonidine and as needed History of seizure disorder, CVA and lupus -Continue home medication. -On Keppra 500mg BID, Dilantin 100mg BID. -monitor dilantin level periodically. DVT prophylaxis with SCDs and Lovenox 30mg QD per Ortho Maia Hairston MD Dec 16, 2016 10:10
[2016-12-16 12:00] VITALS: BP 163/97; PULSE 106; RESP 10; TEMP 97.8; O2SAT 96
[2016-12-16] MEDS: ONDANSETRON HCL 4 MG/2 ML VIAL IVP PRN ×2 (12:15→20:29)
[2016-12-16] MEDS: oxyCODONE/ACETAMINOPHEN 5 MG/325 MG TAB PO PRN ×2 (12:26→20:48)
[2016-12-16 16:00] VITALS: BP 156/82; PULSE 101; RESP 17; TEMP 97.5; O2SAT 96
[2016-12-16 20:45] VITALS: BP 159/79; PULSE 101; RESP 17; TEMP 98.6; O2SAT 95
[2016-12-16] MEDS: INSULIN GLARGINE 1,000 UNITS/10 ML VIAL SQ SCH (21:00)
[2016-12-16 22:47] VITALS: BP 128/64; PULSE 91; PULSE 97; RESP 17; TEMP 97.8; O2SAT 92
[2016-12-16] MEDS: PROMETHAZINE HCL 25 MG TAB PO PRN (23:32)
[2016-12-17] MEDS: cloNIDine HCL 0.1 MG TAB PO SCH ×3 (06:10→20:39)
[2016-12-17] MEDS: oxyCODONE/ACETAMINOPHEN 5 MG/325 MG TAB PO PRN ×3 (06:11→20:26)
[2016-12-17] MEDS: INSULIN NovoLIN REGULAR SUPPLEMENTAL SCALE SQ SCH ×4 (06:15→20:30)
[2016-12-17 08:00] VITALS: BP 143/69; PULSE 92; RESP 14; TEMP 98.7; O2SAT 91
[2016-12-17] MEDS: CALCIUM CARBONATE 500 MG CHEWABLE TAB CHEW SCH ×2 (09:00→20:30)
[2016-12-17] MEDS: MUPIROCIN 2% OINT 1 APPLIC/GM SYR EACH NARE SCH ×2 (09:00→20:26)
[2016-12-17] MEDS: ENOXAPARIN SODIUM 30 MG/0.3 ML SYRINGE SQ SCH (09:02)
[2016-12-17] MEDS: DOCUSATE SODIUM 50 MG/SENNA 8.6 MG TAB PO SCH ×2 (09:02→20:25)
[2016-12-17] MEDS: levETIRAcetam 500 MG TAB PO SCH ×2 (09:03→20:25)
[2016-12-17] MEDS: amLODIPine BESYLATE 5 MG TAB PO SCH (09:03)
[2016-12-17] MEDS: PHENYTOIN SODIUM 100 MG CAP PO SCH ×2 (09:03→20:26)
[2016-12-17] MEDS: SODIUM CHLORIDE 0.9% FLUSH 10 ML FLUSH IV FLUSH SCH ×2 (09:04→20:26)
[2016-12-17] MEDS: FLUoxetine HCL 10 MG CAP PO SCH (09:04)
[2016-12-17] MEDS: ATORVASTATIN 80 MG TAB PO SCH (09:04)
--- NOTE | 2016-12-17 10:34 | HHI.PR ---
Subjective Remarks in no acute distress. had some nausea last night which has resolved. pain is controlled. no other new complaints. Objective Vitals Vital Signs Date Time Temp Pulse Resp B/P Pulse Ox O2 Delivery O2 Flow Rate FiO2 12/17/16 08:00 98.7 92 14 143/69 91 12/16/16 22:47 97.8 91 17 128/64 92 12/16/16 20:45 98.6 101 17 159/79 95 12/16/16 16:00 97.5 101 17 156/82 96 12/16/16 12:00 97.8 106 10 163/97 96 I/O 12/16/16 12/16/16 12/16/16 12/17/16 12/17/16 12/17/16 07:00 15:00 23:00 07:00 15:00 23:00 Intake Total 120 ml 480 ml 240 ml 240 ml Output Total 600 ml Balance 120 ml -120 ml 240 ml 240 ml Intake Oral 120 ml 480 ml 240 ml 240 ml Output Urine Total 600 ml # Voids 1 2 1 1 # Bowel Movements 0 1 0 0 Result Diagram: 12/15/16 0707 Imaging Last Impressions Chest X-Ray 12/04/16 0000 Signed Impressions: Service Date/Time: Sunday, December 04, 2016 12:28 - CONCLUSION: There is platelike atelectasis in the left lower lung. Otherwise the rest of the lungs are grossly clear. Chaparro Reece MD Tibia/Fibula X-Ray 12/03/16 0000 Signed Impressions: Service Date/Time: Saturday, December 03, 2016 15:09 - CONCLUSION: Excellent alignment of the patient's tibial fracture post rodding. Patient has a minimally displaced fibular fracture as well. Umesh Farah MD Ankle X-Ray 12/02/16 0000 Signed Impressions: Service Date/Time: November 18:16 - CONCLUSION: 1. The ankle mortise is intact. 2. Distal tibial and fibular fractures again noted. Please see right leg report for further details. Javier Marino MD Objective Remarks GENERAL: This is a well-nourished, well-developed patient, in no apparent distress. CARDIOVASCULAR: Regular rate and regular rhythm without murmurs, gallops, or rubs. RESPIRATORY: Clear to auscultation. Breath sounds equal bilaterally. No wheezes , rales, or rhonchi. GASTROINTESTINAL: Abdomen soft, non-tender, nondistended. Normal, active bowel sounds MUSCULOSKELETAL: right knee covered with clean dressing. NEURO: Alert & Oriented x4 to person, place, time, situation. Moves all ext x4 Procedures Reymundo fixation right lower extremity Medications and IVs Current Medications Acetaminophen/ Hydrocodone Bitart ([place] 5-325 Mg) 1 tab ONCE ONCE PO Last administered on 12/02/16 18:27; Start 12/02/16 at 18:15; Stop 12/02/16 at 18:16 ; Status DC Sodium Chloride (NS Flush) 2 ml UNSCH PRN IV FLUSH FLUSH AFTER USING IV ACCESS Last administered on 12/02/16 19:20; Start 12/02/16 at 18:30; Stop 12/02/16 at 20:10; Status DC Morphine Sulfate (Morphine Inj) 6 mg ONCE ONCE IV PUSH Last administered on 19:20; Start 12/02/16 at 19:15; Stop 12/02/16 at 19:16; Status DC Sodium Chloride (NS Flush) 2 ml UNSCH PRN IV FLUSH FLUSH AFTER USING IV ACCESS ; Start 12/02/16 at 20:00; Stop 12/03/16 at 16:13; Status DC Sodium Chloride (NS Flush) 2 ml BID IV FLUSH Last administered on 12/03/16 09: 09; Start 12/02/16 at 21:00; Stop 12/03/16 at 16:13; Status DC Naloxone HCl (Narcan Inj) 0.4 mg UNSCH PRN IV SEE LABEL COMMENTS; Start at 20:00 Morphine Sulfate (Morphine Inj) 2 mg Q3H PRN IV PUSH pain >5 Last administered on 12/03/16 09:09; Start 12/02/16 at 20:00; Stop 12/03/16 at 16:16; Status DC Dextrose (D50w (Vial) Inj) 50 ml UNSCH PRN IV HYPOGLYCEMIA-SEE COMMENTS; Start 12/02/16 at 20:15; Stop 12/03/16 at 16:12; Status DC Glucagon (Glucagon Inj) 1 mg UNSCH PRN OTHER HYPOGLYCEMIA-SEE COMMENTS; Start 12/02/16 at 20:15; Stop 12/03/16 at 16:12; Status DC Atorvastatin Calcium (Lipitor) 80 mg DAILY PO Last administered on 12/17/16 09: 04; Start 12/03/16 at 09:00 Clonidine (Catapres) 0.1 mg DAILY PO Last administered on 12/03/16 09:08; Start 12/03/16 at 09:00; Stop 12/04/16 at 12:20; Status DC Fluoxetine HCl (PROzac) 10 mg DAILY PO Last administered on 12/17/16 09:04; Start 12/03/16 at 09:00 Levetriacetam (Keppra) 500 mg BID PO Last administered on 12/17/16 09:03; Start 12/02/16 at 21:00 Phenytoin (Dilantin) 100 mg BID PO Last administered on 12/12/16 09:35; Start 12/02/16 at 21:00; Stop 12/12/16 at 13:50; Status DC Dextrose (D50w (Vial) Inj) 50 ml UNSCH PRN IV HYPOGLYCEMIA-SEE COMMENTS; Start 12/02/16 at 21:15; Stop 12/03/16 at 21:36; Status DC Glucagon (Glucagon Inj) 1 mg UNSCH PRN OTHER HYPOGLYCEMIA-SEE COMMENTS; Start 12/02/16 at 21:15; Stop 12/03/16 at 21:36; Status DC Insulin Aspart 1 1 ACHS SLIDING SCALE SQ ; Start 12/03/16 at 07:00; Stop at 07:00; Status DC Lactated Ringer's 1,000 ml @ 30 mls/hr Q24H PRN IV SEE LABEL COMMENTS; Start at 21:45; Stop 12/04/16 at 12:25; Status DC Sodium Chloride (NS 500 ml Inj) 500 ml @ 30 mls/hr [id number] PRN IV SEE LABEL COMMENTS; Start 12/02/16 at 21:45; Stop 12/04/16 at 12:25; Status DC Metoprolol Tartrate (Lopressor) 25 mg FUNNEL COATER PRN PO SEE LABEL COMMENTS; Start 12/02/16 at 21:45; Stop 12/05/16 at 21:44; Status DC Povidone Iodine (Betadine 5% Antisepsis Kit) 1 applic FUNNEL COATER PRN EACH NARE SEE LABEL COMMENTS; Start 12/02/16 at 21:45; Stop 12/05/16 at 21:44; Status DC Chlorhexidine Gluconate (Chlorhexidine 2% Cloth) 3 pack FUNNEL COATER PRN TOPICAL SEE LABEL COMMENTS; Start 12/02/16 at 21:45; Stop 12/04/16 at 12:27; Status DC Insulin Human Regular (NovoLIN R INJ) See Protocol Table ... FUNNEL COATER PRN SQ SEE PROTOCOL TABLE Last administered on 12/03/16 12:54; Start 12/02/16 at 21:45 ; Stop 12/04/16 at 12:27; Status DC Acetaminophen (Ofirmev Inj) 1,000 mg STK-MED ONCE IV ; Start 12/03/16 at 13:41; Stop 12/03/16 at 13:42; Status DC Midazolam HCl (Versed Inj) 2 mg STK-MED ONCE .ROUTE ; Start 12/03/16 at 13:41; Stop 12/03/16 at 13:42; Status DC Dexamethasone Sodium Phosphate (Decadron Inj) 4 mg STK-MED ONCE .ROUTE ; Start 12/03/16 at 13:41; Stop 12/03/16 at 13:42; Status DC Famotidine (Pepcid Inj) 20 mg STK-MED ONCE .ROUTE ; Start 12/03/16 at 13:42; Stop 12/03/16 at 13:43; Status DC Vancomycin HCl (Vancomycin Inj) 1,000 mg STK-MED ONCE .ROUTE Last administered on 12/03/16 14:07; Start 12/03/16 at 14:01; Stop 12/03/16 at 14:02; Status DC Clindamycin Phosphate (Cleocin Inj) 600 mg STK-MED ONCE .ROUTE Last administered on 12/03/16 14:11; Start 12/03/16 at 14:01; Stop 12/03/16 at 14:02 ; Status DC Gentamicin Sulfate (Gentamicin Inj) 240 mg STK-MED ONCE .ROUTE Last administered on 12/03/16 14:19; Start 12/03/16 at 14:01; Stop 12/03/16 at 14:02 ; Status DC Sodium Chloride (NS Flush) 2 ml UNSCH PRN IV FLUSH FLUSH AFTER USING IV ACCESS ; Start 12/03/16 at 16:00 Sodium Chloride 2 ml 2 ml BID IV FLUSH Last administered on 12/17/16 09:04; Start 12/03/16 at 21:00 Cefazolin Sodium 1000 mg/Sodium Chloride 100 ml @ 200 mls/hr Q6H IV Last administered on 12/04/16 06:34; Start 12/03/16 at 18:00; Stop 12/04/16 at 06:29 ; Status DC Vancomycin HCl/ Sodium Chloride (Vancomycin Inj/ NS 250 ml Inj) 250 ml @ 250 mls/hr Q12H IV Last administered on 12/04/16 17:10; Start 12/04/16 at 02:00; Stop 12/04/16 at 14:59; Status DC Miscellaneous Information (Post-op Orders (for Pharmacy)) STAT ONCE XX ; Start 12/03/16 at 16:00; Stop 12/03/16 at 16:20; Status DC Enoxaparin Sodium (Lovenox Inj) 30 mg Q12H SQ Last administered on 12/05/16 04 :23; Start 12/04/16 at 04:00; Stop 12/05/16 at 09:52; Status DC Miscellaneous Information UNSCH PRN XX SEE LABEL COMMENTS; Start 12/03/16 at 16:00 Morphine Sulfate (Morphine Inj) 5 mg Q3H PRN IV PUSH Pain >7 when off [employer] Last administered on 12/07/16 17:21; Start 12/03/16 at 16:00; Stop 12/08/16 at 09:43 ; Status DC Oxycodone/ Acetaminophen (Percocet 5-325 Mg) 1 tab Q4H PRN PO PAIN LESS THAN 5 ON SCALE Last administered on 12/17/16 06:11; Start 12/03/16 at 16:00 Oxycodone/ Acetaminophen (Percocet 5-325 Mg) 2 tab Q4H PRN PO PAIN SCALE 5 TO 10 Last administered on 12/12/16 15:10; Start 12/03/16 at 16:00 Ketorolac Tromethamine (Toradol Inj) 15 mg Q6H IVP Last administered on 04:23; Start 12/03/16 at 18:00; Stop 12/05/16 at 12:01; Status DC Promethazine HCl (Phenergan) 25 mg Q4H PRN PO NAUSEA OR VOMITING Last administered on 12/16/16 23:32; Start 12/03/16 at 16:00 Ondansetron HCl (Zofran Inj) 4 mg Q6H PRN IVP NAUSEA OR VOMITING Last administered on 12/16/16 20:29; Start 12/03/16 at 16:00 Zolpidem Tartrate (Ambien) 5 mg HS PRN PO SLEEP; Start 12/03/16 at 16:00 Senna/Docusate Sodium (Rivka-Colace) 1 tab BID PO Last administered on 12/17/16 09:02; Start 12/03/16 at 21:00 Magnesium Hydroxide (Milk Of Magnesia Liq) 30 ml Q12H PRN PO MILD - MODERATE CONSTIPATION; Start 12/03/16 at 16:00 Sennosides (Senokot) 17.2 mg Q12H PRN PO MODERATE - SEVERE CONSTIPATION; Start 12/03/16 at 16:00 Bisacodyl (Dulcolax Supp) 10 mg DAILY PRN RECTAL SEVERE CONSITIPATION; Start at 16:00 Lactulose (Lactulose Liq) 30 ml DAILY PRN PO SEVERE CONSITIPATION; Start at 16:00 Fentanyl Citrate (fentaNYL INJ) 250 mcg STK-MED ONCE .ROUTE ; Start 12/03/16 at 16:12; Stop 12/03/16 at 16:13; Status DC Miscellaneous Information ALL NURSING DEPARTME... UNSCH PRN .XX SEE LABEL COMMENTS; Start 12/03/16 at 18:45; Stop 12/04/16 at 18:44; Status DC Dextrose (D50w (Vial) Inj) 25 ml UNSCH PRN IV PUSH HYPOGLYCEMIA - SEE COMMENTS ; Start 12/03/16 at 21:45; Stop 12/04/16 at 12:27; Status DC Glucagon (Glucagon Inj) 1 mg UNSCH PRN OTHER HYPOGLYCEMIA-SEE COMMENTS; Start 12/03/16 at 21:45; Stop 12/04/16 at 12:27; Status DC Insulin Aspart 1 1 ACHS SLIDING SCALE SQ Last administered on 12/04/16 10:33 ; Start 12/03/16 at 21:30; Stop 12/04/16 at 12:20; Status DC Sodium Chloride (NS 1000 ml Inj) 1,000 ml @ 100 mls/hr Q10H IV ; Start at 07:00; Stop 12/04/16 at 12:26; Status DC Insulin Human Regular 10 units 10 units ONCE ONCE IV PUSH Last administered on 12/04/16 07:15; Start 12/04/16 at 07:15; Stop 12/04/16 at 07:16; Status DC Sodium Chloride (NS 500 ml Inj) 500 ml @ 500 mls/hr BOLUS ONCE IV Last administered on 12/04/16 07:37; Start 12/04/16 at 07:30; Stop 12/04/16 at 08:29 ; Status DC Miscellaneous Information Patient in critical care unit? Ass... [id number] .XX Last administered on 12/04/16 08:30; Start 12/04/16 at 08:30 Chlorhexidine Gluconate (Chlorhexidine 2% Cloth) 3 pack DAILY@04 TOPICAL Last administered on 12/07/16 04:00; Start 12/05/16 at 04:00; Stop 12/09/16 at 04:01 ; Status DC Chlorhexidine Gluconate 3 pack 3 pack UNSCH PRN TOPICAL HYGIENIC CARE; Start at 08:30; Stop 12/09/16 at 08:16; Status DC Sodium Chloride 1,000 ml @ 999 mls/hr BOLUS ONCE IV Last administered on 12/04 10:20; Start 12/04/16 at 10:00; Stop 12/04/16 at 11:00; Status DC Sodium Chloride (NS 1000 ml Inj) 1,000 ml @ 100 mls/hr Q10H IV ; Start at 10:00; Stop 12/04/16 at 12:26; Status DC Insulin Detemir (Levemir Inj) 10 units BID SQ ; Start 12/04/16 at 21:00; Stop at 21:00; Status DC Insulin Detemir (Levemir Inj) 10 units ONCE ONCE SQ ; Start 12/04/16 at 11:15; Stop 12/04/16 at 11:22; Status DC Calcium Carbonate (Tums Chew) 500 mg ONCE ONCE CHEW ; Start 12/04/16 at 11:15; Stop 12/04/16 at 11:22; Status DC Calcium Carbonate (Tums Chew) 500 mg Q12HR CHEW Last administered on 12/16/16 20:29; Start 12/04/16 at 21:00 Dextrose (D50w (Vial) Inj) 50 ml UNSCH PRN IV HYPOGLYCEMIA-SEE COMMENTS Last administered on 12/04/16 19:41; Start 12/04/16 at 12:15; Stop 12/05/16 at 09:28 ; Status DC Glucagon (Glucagon Inj) 1 mg UNSCH PRN OTHER HYPOGLYCEMIA-SEE COMMENTS; Start 12/04/16 at 12:15; Stop 12/05/16 at 09:28; Status DC Insulin Human Regular 1 1 Q4H SQ Last administered on 12/05/16 04:23; Start at 13:00; Stop 12/05/16 at 09:18; Status DC Sodium Chloride 1,000 ml @ 999 mls/hr BOLUS ONCE IV Last administered on 12/04 13:15; Start 12/04/16 at 12:15; Stop 12/04/16 at 13:15; Status DC Sodium Chloride (NS 1000 ml Inj) 1,000 ml @ 100 mls/hr Q10H IV Last administered on 12/06/16 06:27; Start 12/04/16 at 12:15; Stop 12/06/16 at 10:01 ; Status DC Sodium Polystyrene Sulfonate (Kayexalate Liq) 30 gm ONCE ONCE PO Last administered on 12/04/16 13:15; Start 12/04/16 at 12:15; Stop 12/04/16 at 12:22 ; Status DC Albuterol/ Ipratropium (Duoneb Neb) 1 ampule Q4HR NEB NEB Last administered on 12/08/16 15:36; Start 12/04/16 at 16:00; Stop 12/08/16 at 16:00; Status DC Albuterol/ Ipratropium 1 ampule 1 ampule Q2HR NEB PRN NEB SHORTNESS OF BREATH; Start 12/04/16 at 12:15 Calcium Gluconate/ Sodium Chloride (Calcium Gluconate Inj/NS Inj) 110 ml @ 110 mls/hr ONCE ONCE IV Last administered on 12/05/16 10:22; Start 12/05/16 at 10 :00; Stop 12/05/16 at 10:59; Status DC Dextrose (D50w (Vial) Inj) 50 ml UNSCH PRN IV HYPOGLYCEMIA-SEE COMMENTS Last administered on 12/15/16 05:33; Start 12/05/16 at 09:30 Glucagon (Glucagon Inj) 1 mg UNSCH PRN OTHER HYPOGLYCEMIA-SEE COMMENTS; Start 12/05/16 at 09:30 Insulin Human Regular (NovoLIN R SUPPLEMENTAL SCALE) 1 Q4H SQ Last administered on 12/06/16 09:25; Start 12/05/16 at 10:00; Stop 12/06/16 at 15:03 ; Status DC Enoxaparin Sodium (Lovenox Inj) 30 mg Q24H SQ Last administered on 12/17/16 09: 02; Start 12/06/16 at 09:00 Ketorolac Tromethamine (Toradol Inj) 15 mg Q6H IVP Last administered on 16:12; Start 12/05/16 at 16:15; Stop 12/05/16 at 16:16; Status DC Clonidine (Catapres) 0.1 mg Q8HR PO Last administered on 12/17/16 06:10; Start 12/06/16 at 09:45 Bumetanide (Bumex Inj) 1 mg ONCE ONCE IV PUSH Last administered on 12/06/16 10:28; Start 12/06/16 at 09:45; Stop 12/06/16 at 10:04; Status DC Hydralazine HCl (Apresoline Inj) 10 mg Q6H PRN IV PUSH SYS BP GREATER THAN 160 MMHG Last administered on 12/07/16 16:00; Start 12/06/16 at 10:15; Stop at 13:36; Status DC Insulin Human Regular (NovoLIN R SUPPLEMENTAL SCALE) 1 ACHS SLIDING SCALE SQ Last administered on 12/11/16 11:00; Start 12/06/16 at 16:00; Stop 12/11/16 at 13 :36; Status DC Bumetanide (Bumex Inj) 1 mg ONCE ONCE IV PUSH Last administered on 12/07/16 15:18; Start 12/07/16 at 14:30; Stop 12/07/16 at 14:31; Status DC Insulin Detemir (Levemir Inj) 10 units Q12HR SQ ; Start 12/08/16 at 09:45; Stop 12/08/16 at 10:37; Status DC Insulin Human Regular (NovoLIN R SUPPLEMENTAL SCALE) 1 ACHS SLIDING SCALE SQ Last administered on 12/13/16 15:29; Start 12/11/16 at 16:00 Amlodipine Besylate (Norvasc) 5 mg DAILY PO Last administered on 12/17/16 09:03 ; Start 12/12/16 at 09:00 Clonidine (Catapres) 0.1 mg Q6H PRN PO BP > 180/100; Start 12/11/16 at 13:30 Mupirocin (Bactroban Nasal 2% Oint) 1 applic BID EACH NARE Last administered on 12/15/16 09:02; Start 12/11/16 at 14:00; Stop 12/18/16 at 13:59 Insulin Detemir (Levemir Inj) 10 units HS SQ ; Start 12/11/16 at 21:00; Stop 12/12 at 10:14; Status DC Insulin Glargine (Lantus Inj) 10 units HS SQ Last administered on 12/14/16 22: 02; Start 12/12/16 at 21:00; Stop 12/15/16 at 08:51; Status DC Phenytoin (Dilantin) 200 mg BID PO Last administered on 12/17/16 09:03; Start 12/12/16 at 21:00 Phenytoin (Dilantin) 200 mg ONCE ONCE PO Last administered on 12/12/16 14:22; Start 12/12/16 at 14:00; Stop 12/12/16 at 14:01; Status DC Phenytoin (Dilantin) 300 mg NOW ONCE PO Last administered on 12/12/16 14:22; Start 12/12/16 at 14:00; Stop 12/12/16 at 14:01; Status DC Phenytoin (Dilantin) 300 mg ONCE ONCE PO Last administered on 12/13/16 15:29; Start 12/13/16 at 14:00; Stop 12/13/16 at 14:01; Status DC Insulin Glargine (Lantus Inj) 6 units HS SQ ; Start 12/15/16 at 21:00 A/P Assessment and Plan Respiratory insufficiency -Most likely secondary to over sedation from narcotics. -Resolved. Acute on chronic renal failure stage III. Resolved T2 DM, uncontrolled. A1c 10.8 -She is on insulin sliding scale. -Patient is allergic to Levemir and that is on our formulary. She can resume Lantus - right closed tibial fracture status post reymundo fixation on December 03. -Nonweightbearing, incentive spirometry, wound care, physical therapy and pain management with Percocet. Patient counseled regarding narcotics Anemia -Secondary to blood loss due to surgery. -Status post transfusion with 2 PRBC -Responded appropriately to transfusion. -GI was consulted due to anemia. Per GI she had colonoscopy and endoscopy done 2 months ago which was normal. She had no signs of any GI bleed. GI signed off. Hypertension. Improving on additional Norvasc Continue scheduled clonidine and as needed History of seizure disorder, CVA and lupus -Continue home medication. -On Keppra 500mg BID, Dilantin 100mg BID. -monitor dilantin level periodically. DVT prophylaxis with SCDs and Lovenox 30mg QD per Ortho Discharge Planning discharge planning when safe with PT. Maia Hairston MD Dec 17, 2016 10:34
[2016-12-17 12:00] VITALS: BP 185/93; PULSE 107; RESP 16; TEMP 97.7; O2SAT 93
[2016-12-17 16:00] VITALS: BP 194/104; PULSE 103; RESP 15; TEMP 97.5; O2SAT 96
[2016-12-17] MEDS: PROMETHAZINE HCL 25 MG TAB PO PRN (16:13)
[2016-12-17 20:15] VITALS: BP 100/54; PULSE 90; RESP 17; TEMP 97.6; O2SAT 95
[2016-12-17] MEDS: INSULIN GLARGINE 1,000 UNITS/10 ML VIAL SQ SCH (20:26)
[2016-12-18 00:15] VITALS: BP 109/61; PULSE 87; RESP 18; TEMP 96.7; O2SAT 92
[2016-12-18] MEDS: cloNIDine HCL 0.1 MG TAB PO SCH ×3 (05:56→21:43)
[2016-12-18] MEDS: oxyCODONE/ACETAMINOPHEN 5 MG/325 MG TAB PO PRN (05:56)
[2016-12-18] MEDS: INSULIN NovoLIN REGULAR SUPPLEMENTAL SCALE SQ SCH ×4 (06:00→20:06)
[2016-12-18 08:00] VITALS: BP 106/58; PULSE 92; RESP 14; TEMP 97.1; O2SAT 91
[2016-12-18] MEDS: MUPIROCIN 2% OINT 1 APPLIC/GM SYR EACH NARE SCH (09:00)
[2016-12-18] MEDS: SODIUM CHLORIDE 0.9% FLUSH 10 ML FLUSH IV FLUSH SCH ×2 (09:00→20:07)
[2016-12-18] MEDS: amLODIPine BESYLATE 5 MG TAB PO SCH (09:32)
[2016-12-18] MEDS: ATORVASTATIN 80 MG TAB PO SCH (09:32)
[2016-12-18] MEDS: PHENYTOIN SODIUM 100 MG CAP PO SCH ×2 (09:32→20:02)
[2016-12-18] MEDS: DOCUSATE SODIUM 50 MG/SENNA 8.6 MG TAB PO SCH ×2 (09:33→20:02)
[2016-12-18] MEDS: levETIRAcetam 500 MG TAB PO SCH ×2 (09:33→20:02)
[2016-12-18] MEDS: FLUoxetine HCL 10 MG CAP PO SCH (09:33)
[2016-12-18] MEDS: ENOXAPARIN SODIUM 30 MG/0.3 ML SYRINGE SQ SCH (09:33)
--- NOTE | 2016-12-18 10:27 | HHI.PR ---
Subjective Remarks resting comfortably with no distress. no new complaints. Objective Vitals Vital Signs Date Time Temp Pulse Resp B/P Pulse Ox O2 Delivery O2 Flow Rate FiO2 12/18/16 08:00 97.1 92 14 106/58 91 12/18/16 00:15 96.7 87 18 109/61 92 12/17/16 20:15 97.6 90 17 100/54 95 12/17/16 16:00 97.5 103 15 194/104 96 12/17/16 12:00 97.7 107 16 185/93 93 I/O 12/17/16 12/17/16 12/17/16 12/18/16 12/18/16 12/18/16 07:00 15:00 23:00 07:00 15:00 23:00 Intake Total 240 ml 480 ml 120 ml 120 ml Output Total 250 ml Balance 240 ml 230 ml 120 ml 120 ml Intake Oral 240 ml 480 ml 120 ml 120 ml Output Urine Total 250 ml # Voids 1 1 1 1 # Bowel Movements 0 1 0 0 Result Diagram: 12/15/16 0707 Imaging Last Impressions Chest X-Ray 12/04/16 0000 Signed Impressions: Service Date/Time: Sunday, December 04, 2016 12:28 - CONCLUSION: There is platelike atelectasis in the left lower lung. Otherwise the rest of the lungs are grossly clear. Chaparro Reece MD Tibia/Fibula X-Ray 12/03/16 0000 Signed Impressions: Service Date/Time: Saturday, December 03, 2016 15:09 - CONCLUSION: Excellent alignment of the patient's tibial fracture post rodding. Patient has a minimally displaced fibular fracture as well. Umesh Farah MD Ankle X-Ray 12/02/16 0000 Signed Impressions: Service Date/Time: November 18:16 - CONCLUSION: 1. The ankle mortise is intact. 2. Distal tibial and fibular fractures again noted. Please see right leg report for further details. Javier Marino MD Objective Remarks GENERAL: This is a well-nourished, well-developed patient, in no apparent distress. CARDIOVASCULAR: Regular rate and regular rhythm without murmurs, gallops, or rubs. RESPIRATORY: Clear to auscultation. Breath sounds equal bilaterally. No wheezes , rales, or rhonchi. GASTROINTESTINAL: Abdomen soft, non-tender, nondistended. Normal, active bowel sounds MUSCULOSKELETAL: right knee covered with clean dressing. NEURO: Alert & Oriented x4 to person, place, time, situation. Moves all ext x4 Procedures Reymundo fixation right lower extremity Medications and IVs Current Medications Acetaminophen/ Hydrocodone Bitart ([place] 5-325 Mg) 1 tab ONCE ONCE PO Last administered on 12/02/16 18:27; Start 12/02/16 at 18:15; Stop 12/02/16 at 18:16 ; Status DC Sodium Chloride (NS Flush) 2 ml UNSCH PRN IV FLUSH FLUSH AFTER USING IV ACCESS Last administered on 12/02/16 19:20; Start 12/02/16 at 18:30; Stop 12/02/16 at 20:10; Status DC Morphine Sulfate (Morphine Inj) 6 mg ONCE ONCE IV PUSH Last administered on 19:20; Start 12/02/16 at 19:15; Stop 12/02/16 at 19:16; Status DC Sodium Chloride (NS Flush) 2 ml UNSCH PRN IV FLUSH FLUSH AFTER USING IV ACCESS ; Start 12/02/16 at 20:00; Stop 12/03/16 at 16:13; Status DC Sodium Chloride (NS Flush) 2 ml BID IV FLUSH Last administered on 12/03/16 09: 09; Start 12/02/16 at 21:00; Stop 12/03/16 at 16:13; Status DC Naloxone HCl (Narcan Inj) 0.4 mg UNSCH PRN IV SEE LABEL COMMENTS; Start at 20:00 Morphine Sulfate (Morphine Inj) 2 mg Q3H PRN IV PUSH pain >5 Last administered on 12/03/16 09:09; Start 12/02/16 at 20:00; Stop 12/03/16 at 16:16; Status DC Dextrose (D50w (Vial) Inj) 50 ml UNSCH PRN IV HYPOGLYCEMIA-SEE COMMENTS; Start 12/02/16 at 20:15; Stop 12/03/16 at 16:12; Status DC Glucagon (Glucagon Inj) 1 mg UNSCH PRN OTHER HYPOGLYCEMIA-SEE COMMENTS; Start 12/02/16 at 20:15; Stop 12/03/16 at 16:12; Status DC Atorvastatin Calcium (Lipitor) 80 mg DAILY PO Last administered on 12/18/16 09: 32; Start 12/03/16 at 09:00 Clonidine (Catapres) 0.1 mg DAILY PO Last administered on 12/03/16 09:08; Start 12/03/16 at 09:00; Stop 12/04/16 at 12:20; Status DC Fluoxetine HCl (PROzac) 10 mg DAILY PO Last administered on 12/18/16 09:33; Start 12/03/16 at 09:00 Levetriacetam (Keppra) 500 mg BID PO Last administered on 12/18/16 09:33; Start 12/02/16 at 21:00 Phenytoin (Dilantin) 100 mg BID PO Last administered on 12/12/16 09:35; Start 12/02/16 at 21:00; Stop 12/12/16 at 13:50; Status DC Dextrose (D50w (Vial) Inj) 50 ml UNSCH PRN IV HYPOGLYCEMIA-SEE COMMENTS; Start 12/02/16 at 21:15; Stop 12/03/16 at 21:36; Status DC Glucagon (Glucagon Inj) 1 mg UNSCH PRN OTHER HYPOGLYCEMIA-SEE COMMENTS; Start 12/02/16 at 21:15; Stop 12/03/16 at 21:36; Status DC Insulin Aspart 1 1 ACHS SLIDING SCALE SQ ; Start 12/03/16 at 07:00; Stop at 07:00; Status DC Lactated Ringer's 1,000 ml @ 30 mls/hr Q24H PRN IV SEE LABEL COMMENTS; Start at 21:45; Stop 12/04/16 at 12:25; Status DC Sodium Chloride (NS 500 ml Inj) 500 ml @ 30 mls/hr [id number] PRN IV SEE LABEL COMMENTS; Start 12/02/16 at 21:45; Stop 12/04/16 at 12:25; Status DC Metoprolol Tartrate (Lopressor) 25 mg DIRECTOR OF [employer]IATION PRN PO SEE LABEL COMMENTS; Start 12/02/16 at 21:45; Stop 12/05/16 at 21:44; Status DC Povidone Iodine (Betadine 5% Antisepsis Kit) 1 applic [employer]OR [employer]IATION PRN EACH NARE SEE LABEL COMMENTS; Start 12/02/16 at 21:45; Stop 12/05/16 at 21:44; Status DC Chlorhexidine Gluconate (Chlorhexidine 2% Cloth) 3 pack [employer] PRN TOPICAL SEE LABEL COMMENTS; Start 12/02/16 at 21:45; Stop 12/04/16 at 12:27; Status DC Insulin Human Regular (NovoLIN R INJ) See Protocol Table ... DIRECTOR [employer]IATION PRN SQ SEE PROTOCOL TABLE Last administered on 12/03/16 12:54; Start 12/02/16 at 21:45 ; Stop 12/04/16 at 12:27; Status DC Acetaminophen (Ofirmev Inj) 1,000 mg STK-MED ONCE IV ; Start 12/03/16 at 13:41; Stop 12/03/16 at 13:42; Status DC Midazolam HCl (Versed Inj) 2 mg STK-MED ONCE .ROUTE ; Start 12/03/16 at 13:41; Stop 12/03/16 at 13:42; Status DC Dexamethasone Sodium Phosphate (Decadron Inj) 4 mg STK-MED ONCE .ROUTE ; Start 12/03/16 at 13:41; Stop 12/03/16 at 13:42; Status DC Famotidine (Pepcid Inj) 20 mg STK-MED ONCE .ROUTE ; Start 12/03/16 at 13:42; Stop 12/03/16 at 13:43; Status DC Vancomycin HCl (Vancomycin Inj) 1,000 mg STK-MED ONCE .ROUTE Last administered on 12/03/16 14:07; Start 12/03/16 at 14:01; Stop 12/03/16 at 14:02; Status DC Clindamycin Phosphate (Cleocin Inj) 600 mg STK-MED ONCE .ROUTE Last administered on 12/03/16 14:11; Start 12/03/16 at 14:01; Stop 12/03/16 at 14:02 ; Status DC Gentamicin Sulfate (Gentamicin Inj) 240 mg STK-MED ONCE .ROUTE Last administered on 12/03/16 14:19; Start 12/03/16 at 14:01; Stop 12/03/16 at 14:02 ; Status DC Sodium Chloride (NS Flush) 2 ml UNSCH PRN IV FLUSH FLUSH AFTER USING IV ACCESS ; Start 12/03/16 at 16:00 Sodium Chloride 2 ml 2 ml BID IV FLUSH Last administered on 12/17/16 09:04; Start 12/03/16 at 21:00 Cefazolin Sodium 1000 mg/Sodium Chloride 100 ml @ 200 mls/hr Q6H IV Last administered on 12/04/16 06:34; Start 12/03/16 at 18:00; Stop 12/04/16 at 06:29 ; Status DC Vancomycin HCl/ Sodium Chloride (Vancomycin Inj/ NS 250 ml Inj) 250 ml @ 250 mls/hr Q12H IV Last administered on 12/04/16 17:10; Start 12/04/16 at 02:00; Stop 12/04/16 at 14:59; Status DC Miscellaneous Information (Post-op Orders (for Pharmacy)) STAT ONCE XX ; Start 12/03/16 at 16:00; Stop 12/03/16 at 16:20; Status DC Enoxaparin Sodium (Lovenox Inj) 30 mg Q12H SQ Last administered on 12/05/16 04 :23; Start 12/04/16 at 04:00; Stop 12/05/16 at 09:52; Status DC Miscellaneous Information UNSCH PRN XX SEE LABEL COMMENTS; Start 12/03/16 at 16:00 Morphine Sulfate (Morphine Inj) 5 mg Q3H PRN IV PUSH Pain >7 when off E[employer]ITY [employer]DER Last administered on 12/07/16 17:21; Start 12/03/16 at 16:00; Stop 12/08/16 at 09:43 ; Status DC Oxycodone/ Acetaminophen (Percocet 5-325 Mg) 1 tab Q4H PRN PO PAIN LESS THAN 5 ON SCALE Last administered on 12/18/16 05:56; Start 12/03/16 at 16:00 Oxycodone/ Acetaminophen (Percocet 5-325 Mg) 2 tab Q4H PRN PO PAIN SCALE 5 TO 10 Last administered on 12/17/16 11:01; Start 12/03/16 at 16:00 Ketorolac Tromethamine (Toradol Inj) 15 mg Q6H IVP Last administered on 04:23; Start 12/03/16 at 18:00; Stop 12/05/16 at 12:01; Status DC Promethazine HCl (Phenergan) 25 mg Q4H PRN PO NAUSEA OR VOMITING Last administered on 12/17/16 16:13; Start 12/03/16 at 16:00 Ondansetron HCl (Zofran Inj) 4 mg Q6H PRN IVP NAUSEA OR VOMITING Last administered on 12/16/16 20:29; Start 12/03/16 at 16:00 Zolpidem Tartrate (Ambien) 5 mg HS PRN PO SLEEP; Start 12/03/16 at 16:00 Senna/Docusate Sodium (Rivka-Colace) 1 tab BID PO Last administered on 12/18/16 09:33; Start 12/03/16 at 21:00 Magnesium Hydroxide (Milk Of Magnesia Liq) 30 ml Q12H PRN PO MILD - MODERATE CONSTIPATION; Start 12/03/16 at 16:00 Sennosides (Senokot) 17.2 mg Q12H PRN PO MODERATE - SEVERE CONSTIPATION; Start 12/03/16 at 16:00 Bisacodyl (Dulcolax Supp) 10 mg DAILY PRN RECTAL SEVERE CONSITIPATION; Start at 16:00 Lactulose (Lactulose Liq) 30 ml DAILY PRN PO SEVERE CONSITIPATION; Start at 16:00 Fentanyl Citrate (fentaNYL INJ) 250 mcg STK-MED ONCE .ROUTE ; Start 12/03/16 at 16:12; Stop 12/03/16 at 16:13; Status DC Miscellaneous Information ALL NURSING DEPARTME... UNSCH PRN .XX SEE LABEL COMMENTS; Start 12/03/16 at 18:45; Stop 12/04/16 at 18:44; Status DC Dextrose (D50w (Vial) Inj) 25 ml UNSCH PRN IV PUSH HYPOGLYCEMIA - SEE COMMENTS ; Start 12/03/16 at 21:45; Stop 12/04/16 at 12:27; Status DC Glucagon (Glucagon Inj) 1 mg UNSCH PRN OTHER HYPOGLYCEMIA-SEE COMMENTS; Start 12/03/16 at 21:45; Stop 12/04/16 at 12:27; Status DC Insulin Aspart 1 1 ACHS SLIDING SCALE SQ Last administered on 12/04/16 10:33 ; Start 12/03/16 at 21:30; Stop 12/04/16 at 12:20; Status DC Sodium Chloride (NS 1000 ml Inj) 1,000 ml @ 100 mls/hr Q10H IV ; Start at 07:00; Stop 12/04/16 at 12:26; Status DC Insulin Human Regular 10 units 10 units ONCE ONCE IV PUSH Last administered on 12/04/16 07:15; Start 12/04/16 at 07:15; Stop 12/04/16 at 07:16; Status DC Sodium Chloride (NS 500 ml Inj) 500 ml @ 500 mls/hr BOLUS ONCE IV Last administered on 12/04/16 07:37; Start 12/04/16 at 07:30; Stop 12/04/16 at 08:29 ; Status DC Miscellaneous Information Patient in critical care unit? Ass... [id number] .XX Last administered on 12/04/16 08:30; Start 12/04/16 at 08:30 Chlorhexidine Gluconate (Chlorhexidine 2% Cloth) 3 pack DAILY@04 TOPICAL Last administered on 12/07/16 04:00; Start 12/05/16 at 04:00; Stop 12/09/16 at 04:01 ; Status DC Chlorhexidine Gluconate 3 pack 3 pack UNSCH PRN TOPICAL HYGIENIC CARE; Start at 08:30; Stop 12/09/16 at 08:16; Status DC Sodium Chloride 1,000 ml @ 999 mls/hr BOLUS ONCE IV Last administered on 12/04 10:20; Start 12/04/16 at 10:00; Stop 12/04/16 at 11:00; Status DC Sodium Chloride (NS 1000 ml Inj) 1,000 ml @ 100 mls/hr Q10H IV ; Start at 10:00; Stop 12/04/16 at 12:26; Status DC Insulin Detemir (Levemir Inj) 10 units BID SQ ; Start 12/04/16 at 21:00; Stop at 21:00; Status DC Insulin Detemir (Levemir Inj) 10 units ONCE ONCE SQ ; Start 12/04/16 at 11:15; Stop 12/04/16 at 11:22; Status DC Calcium Carbonate (Tums Chew) 500 mg ONCE ONCE CHEW ; Start 12/04/16 at 11:15; Stop 12/04/16 at 11:22; Status DC Calcium Carbonate (Tums Chew) 500 mg Q12HR CHEW Last administered on 12/16/16 20:29; Start 12/04/16 at 21:00 Dextrose (D50w (Vial) Inj) 50 ml UNSCH PRN IV HYPOGLYCEMIA-SEE COMMENTS Last administered on 12/04/16 19:41; Start 12/04/16 at 12:15; Stop 12/05/16 at 09:28 ; Status DC Glucagon (Glucagon Inj) 1 mg UNSCH PRN OTHER HYPOGLYCEMIA-SEE COMMENTS; Start 12/04/16 at 12:15; Stop 12/05/16 at 09:28; Status DC Insulin Human Regular 1 1 Q4H SQ Last administered on 12/05/16 04:23; Start at 13:00; Stop 12/05/16 at 09:18; Status DC Sodium Chloride 1,000 ml @ 999 mls/hr BOLUS ONCE IV Last administered on 12/04 13:15; Start 12/04/16 at 12:15; Stop 12/04/16 at 13:15; Status DC Sodium Chloride (NS 1000 ml Inj) 1,000 ml @ 100 mls/hr Q10H IV Last administered on 12/06/16 06:27; Start 12/04/16 at 12:15; Stop 12/06/16 at 10:01 ; Status DC Sodium Polystyrene Sulfonate (Kayexalate Liq) 30 gm ONCE ONCE PO Last administered on 12/04/16 13:15; Start 12/04/16 at 12:15; Stop 12/04/16 at 12:22 ; Status DC Albuterol/ Ipratropium (Duoneb Neb) 1 ampule Q4HR NEB NEB Last administered on 12/08/16 15:36; Start 12/04/16 at 16:00; Stop 12/08/16 at 16:00; Status DC Albuterol/ Ipratropium 1 ampule 1 ampule Q2HR NEB PRN NEB SHORTNESS OF BREATH; Start 12/04/16 at 12:15 Calcium Gluconate/ Sodium Chloride (Calcium Gluconate Inj/NS Inj) 110 ml @ 110 mls/hr ONCE ONCE IV Last administered on 12/05/16 10:22; Start 12/05/16 at 10 :00; Stop 12/05/16 at 10:59; Status DC Dextrose (D50w (Vial) Inj) 50 ml UNSCH PRN IV HYPOGLYCEMIA-SEE COMMENTS Last administered on 12/15/16 05:33; Start 12/05/16 at 09:30 Glucagon (Glucagon Inj) 1 mg UNSCH PRN OTHER HYPOGLYCEMIA-SEE COMMENTS; Start 12/05/16 at 09:30 Insulin Human Regular (NovoLIN R SUPPLEMENTAL SCALE) 1 Q4H SQ Last administered on 12/06/16 09:25; Start 12/05/16 at 10:00; Stop 12/06/16 at 15:03 ; Status DC Enoxaparin Sodium (Lovenox Inj) 30 mg Q24H SQ Last administered on 12/18/16 09: 33; Start 12/06/16 at 09:00 Ketorolac Tromethamine (Toradol Inj) 15 mg Q6H IVP Last administered on 16:12; Start 12/05/16 at 16:15; Stop 12/05/16 at 16:16; Status DC Clonidine (Catapres) 0.1 mg Q8HR PO Last administered on 12/18/16 05:56; Start 12/06/16 at 09:45 Bumetanide (Bumex Inj) 1 mg ONCE ONCE IV PUSH Last administered on 12/06/16 10:28; Start 12/06/16 at 09:45; Stop 12/06/16 at 10:04; Status DC Hydralazine HCl (Apresoline Inj) 10 mg Q6H PRN IV PUSH SYS BP GREATER THAN 160 MMHG Last administered on 12/07/16 16:00; Start 12/06/16 at 10:15; Stop at 13:36; Status DC Insulin Human Regular (NovoLIN R SUPPLEMENTAL SCALE) 1 ACHS SLIDING SCALE SQ Last administered on 12/11/16 11:00; Start 12/06/16 at 16:00; Stop 12/11/16 at 13 :36; Status DC Bumetanide (Bumex Inj) 1 mg ONCE ONCE IV PUSH Last administered on 12/07/16 15:18; Start 12/07/16 at 14:30; Stop 12/07/16 at 14:31; Status DC Insulin Detemir (Levemir Inj) 10 units Q12HR SQ ; Start 12/08/16 at 09:45; Stop 12/08/16 at 10:37; Status DC Insulin Human Regular (NovoLIN R SUPPLEMENTAL SCALE) 1 ACHS SLIDING SCALE SQ Last administered on 12/17/16 16:00; Start 12/11/16 at 16:00 Amlodipine Besylate (Norvasc) 5 mg DAILY PO Last administered on 12/18/16 09:32 ; Start 12/12/16 at 09:00 Clonidine (Catapres) 0.1 mg Q6H PRN PO BP > 180/100; Start 12/11/16 at 13:30 Mupirocin (Bactroban Nasal 2% Oint) 1 applic BID EACH NARE Last administered on 12/15/16 09:02; Start 12/11/16 at 14:00; Stop 12/18/16 at 13:59 Insulin Detemir (Levemir Inj) 10 units HS SQ ; Start 12/11/16 at 21:00; Stop 12/12 at 10:14; Status DC Insulin Glargine (Lantus Inj) 10 units HS SQ Last administered on 12/14/16 22: 02; Start 12/12/16 at 21:00; Stop 12/15/16 at 08:51; Status DC Phenytoin (Dilantin) 200 mg BID PO Last administered on 12/18/16 09:32; Start 12/12/16 at 21:00 Phenytoin (Dilantin) 200 mg ONCE ONCE PO Last administered on 12/12/16 14:22; Start 12/12/16 at 14:00; Stop 12/12/16 at 14:01; Status DC Phenytoin (Dilantin) 300 mg NOW ONCE PO Last administered on 12/12/16 14:22; Start 12/12/16 at 14:00; Stop 12/12/16 at 14:01; Status DC Phenytoin (Dilantin) 300 mg ONCE ONCE PO Last administered on 12/13/16 15:29; Start 12/13/16 at 14:00; Stop 12/13/16 at 14:01; Status DC Insulin Glargine (Lantus Inj) 6 units HS SQ ; Start 12/15/16 at 21:00 A/P Assessment and Plan Respiratory insufficiency -Most likely secondary to over sedation from narcotics. -Resolved. Acute on chronic renal failure stage III. Resolved T2 DM, uncontrolled. A1c 10.8 -She is on insulin sliding scale. -Patient is allergic to Levemir and that is on our formulary. resumed Lantus - right closed tibial fracture status post reymundo fixation on December 03. -Nonweightbearing, incentive spirometry, wound care, physical therapy and pain management with Percocet. Patient counseled regarding narcotics Anemia -Secondary to blood loss due to surgery. -Status post transfusion with 2 PRBC -Responded appropriately to transfusion. -GI was consulted due to anemia. Per GI she had colonoscopy and endoscopy done 2 months ago which was normal. She had no signs of any GI bleed. GI signed off. Hypertension. continue Norvasc Continue scheduled clonidine and as needed History of seizure disorder, CVA and lupus -Continue home medication. -On Keppra 500mg BID, Dilantin 100mg BID. -monitor dilantin level periodically. DVT prophylaxis with SCDs and Lovenox 30mg QD per Ortho Discharge Planning discharge planning when safe with PT. Maia Hairston MD Dec 18, 2016 10:27
[2016-12-18 11:50] VITALS: BP 123/67; PULSE 96; RESP 16; TEMP 97.7; O2SAT 95
[2016-12-18 16:00] VITALS: BP 127/72; PULSE 91; RESP 17; TEMP 97.7; O2SAT 92
[2016-12-18 19:16] VITALS: BP 137/73; PULSE 94; RESP 18; TEMP 96.8; O2SAT 92
[2016-12-18] MEDS: CALCIUM CARBONATE 500 MG CHEWABLE TAB CHEW SCH (20:01)
[2016-12-18] MEDS: INSULIN GLARGINE 1,000 UNITS/10 ML VIAL SQ SCH (20:03)
[2016-12-19] VITALS: BP 121/71; PULSE 92; RESP 18; TEMP 96.7; O2SAT 92
[2016-12-19] MEDS: INSULIN NovoLIN REGULAR SUPPLEMENTAL SCALE SQ SCH ×4 (05:09→21:00)
[2016-12-19] MEDS: cloNIDine HCL 0.1 MG TAB PO SCH ×3 (06:00→21:04)
[2016-12-19 07:55] VITALS: BP 133/76; PULSE 91; RESP 17; TEMP 96.7; O2SAT 95
[2016-12-19] MEDS: CALCIUM CARBONATE 500 MG CHEWABLE TAB CHEW SCH ×2 (09:00→21:00)
[2016-12-19] MEDS: DOCUSATE SODIUM 50 MG/SENNA 8.6 MG TAB PO SCH ×2 (09:00→21:04)
[2016-12-19] MEDS: SODIUM CHLORIDE 0.9% FLUSH 10 ML FLUSH IV FLUSH SCH ×2 (09:00→21:06)
[2016-12-19] MEDS: FLUoxetine HCL 10 MG CAP PO SCH (09:08)
[2016-12-19] MEDS: levETIRAcetam 500 MG TAB PO SCH ×2 (09:08→21:04)
[2016-12-19] MEDS: ATORVASTATIN 80 MG TAB PO SCH (09:08)
[2016-12-19] MEDS: PHENYTOIN SODIUM 100 MG CAP PO SCH ×2 (09:08→21:05)
[2016-12-19] MEDS: amLODIPine BESYLATE 5 MG TAB PO SCH (09:08)
[2016-12-19] MEDS: ENOXAPARIN SODIUM 30 MG/0.3 ML SYRINGE SQ SCH (09:14)
--- NOTE | 2016-12-19 10:09 | HHI.PR ---
Subjective Remarks in no acute distress. pain is controlled. no new complaints. Objective Vitals Vital Signs Date Time Temp Pulse Resp B/P Pulse Ox O2 Delivery O2 Flow Rate FiO2 12/19/16 07:55 96.7 91 17 133/76 95 12/19/16 00:00 96.7 92 18 121/71 92 12/18/16 19:16 96.8 94 18 137/73 92 12/18/16 16:00 97.7 91 17 127/72 92 12/18/16 11:50 97.7 96 16 123/67 95 I/O 12/18/16 12/18/16 12/18/16 12/19/16 12/19/16 12/19/16 07:00 15:00 23:00 07:00 15:00 23:00 Intake Total 120 ml 480 ml 480 ml 750 ml Balance 120 ml 480 ml 480 ml 750 ml Intake Oral 120 ml 480 ml 480 ml 240 ml IV Total 510 ml # Voids 1 1 2 0 # Bowel Movements 0 0 0 0 Result Diagram: 12/15/16 0707 Imaging Last Impressions Chest X-Ray 12/04/16 0000 Signed Impressions: Service Date/Time: Sunday, December 04, 2016 12:28 - CONCLUSION: There is platelike atelectasis in the left lower lung. Otherwise the rest of the lungs are grossly clear. Chaparro Reece MD Tibia/Fibula X-Ray 12/03/16 0000 Signed Impressions: Service Date/Time: Saturday, December 03, 2016 15:09 - CONCLUSION: Excellent alignment of the patient's tibial fracture post rodding. Patient has a minimally displaced fibular fracture as well. Umesh Farah MD Ankle X-Ray 12/02/16 0000 Signed Impressions: Service Date/Time: November 18:16 - CONCLUSION: 1. The ankle mortise is intact. 2. Distal tibial and fibular fractures again noted. Please see right leg report for further details. Javier Marino MD Objective Remarks GENERAL: This is a well-nourished, well-developed patient, in no apparent distress. CARDIOVASCULAR: Regular rate and regular rhythm without murmurs, gallops, or rubs. RESPIRATORY: Clear to auscultation. Breath sounds equal bilaterally. No wheezes , rales, or rhonchi. GASTROINTESTINAL: Abdomen soft, non-tender, nondistended. Normal, active bowel sounds MUSCULOSKELETAL: right knee covered with clean dressing. NEURO: Alert & Oriented x4 to person, place, time, situation. Moves all ext x4 Procedures Reymundo fixation right lower extremity Medications and IVs Current Medications Acetaminophen/ Hydrocodone Bitart ([place] 5-325 Mg) 1 tab ONCE ONCE PO Last administered on 12/02/16 18:27; Start 12/02/16 at 18:15; Stop 12/02/16 at 18:16 ; Status DC Sodium Chloride (NS Flush) 2 ml UNSCH PRN IV FLUSH FLUSH AFTER USING IV ACCESS Last administered on 12/02/16 19:20; Start 12/02/16 at 18:30; Stop 12/02/16 at 20:10; Status DC Morphine Sulfate (Morphine Inj) 6 mg ONCE ONCE IV PUSH Last administered on 19:20; Start 12/02/16 at 19:15; Stop 12/02/16 at 19:16; Status DC Sodium Chloride (NS Flush) 2 ml UNSCH PRN IV FLUSH FLUSH AFTER USING IV ACCESS ; Start 12/02/16 at 20:00; Stop 12/03/16 at 16:13; Status DC Sodium Chloride (NS Flush) 2 ml BID IV FLUSH Last administered on 12/03/16 09: 09; Start 12/02/16 at 21:00; Stop 12/03/16 at 16:13; Status DC Naloxone HCl (Narcan Inj) 0.4 mg UNSCH PRN IV SEE LABEL COMMENTS; Start at 20:00 Morphine Sulfate (Morphine Inj) 2 mg Q3H PRN IV PUSH pain >5 Last administered on 12/03/16 09:09; Start 12/02/16 at 20:00; Stop 12/03/16 at 16:16; Status DC Dextrose (D50w (Vial) Inj) 50 ml UNSCH PRN IV HYPOGLYCEMIA-SEE COMMENTS; Start 12/02/16 at 20:15; Stop 12/03/16 at 16:12; Status DC Glucagon (Glucagon Inj) 1 mg UNSCH PRN OTHER HYPOGLYCEMIA-SEE COMMENTS; Start 12/02/16 at 20:15; Stop 12/03/16 at 16:12; Status DC Atorvastatin Calcium (Lipitor) 80 mg DAILY PO Last administered on 12/19/16 09: 08; Start 12/03/16 at 09:00 Clonidine (Catapres) 0.1 mg DAILY PO Last administered on 12/03/16 09:08; Start 12/03/16 at 09:00; Stop 12/04/16 at 12:20; Status DC Fluoxetine HCl (PROzac) 10 mg DAILY PO Last administered on 12/19/16 09:08; Start 12/03/16 at 09:00 Levetriacetam (Keppra) 500 mg BID PO Last administered on 12/19/16 09:08; Start 12/02/16 at 21:00 Phenytoin (Dilantin) 100 mg BID PO Last administered on 12/12/16 09:35; Start 12/02/16 at 21:00; Stop 12/12/16 at 13:50; Status DC Dextrose (D50w (Vial) Inj) 50 ml UNSCH PRN IV HYPOGLYCEMIA-SEE COMMENTS; Start 12/02/16 at 21:15; Stop 12/03/16 at 21:36; Status DC Glucagon (Glucagon Inj) 1 mg UNSCH PRN OTHER HYPOGLYCEMIA-SEE COMMENTS; Start 12/02/16 at 21:15; Stop 12/03/16 at 21:36; Status DC Insulin Aspart 1 1 ACHS SLIDING SCALE SQ ; Start 12/03/16 at 07:00; Stop at 07:00; Status DC Lactated Ringer's 1,000 ml @ 30 mls/hr Q24H PRN IV SEE LABEL COMMENTS; Start at 21:45; Stop 12/04/16 at 12:25; Status DC Sodium Chloride (NS 500 ml Inj) 500 ml @ 30 mls/hr [id number] PRN IV SEE LABEL COMMENTS; Start 12/02/16 at 21:45; Stop 12/04/16 at 12:25; Status DC Metoprolol Tartrate (Lopressor) 25 mg PHOTOGRAPHER PORTRAIT PRN PO SEE LABEL COMMENTS; Start 12/02/16 at 21:45; Stop 12/05/16 at 21:44; Status DC Povidone Iodine (Betadine 5% Antisepsis Kit) 1 applic PHOTOGRAPHER PORTRAIT PRN EACH NARE SEE LABEL COMMENTS; Start 12/02/16 at 21:45; Stop 12/05/16 at 21:44; Status DC Chlorhexidine Gluconate (Chlorhexidine 2% Cloth) 3 pack PHOTOGRAPHER PORTRAIT PRN TOPICAL SEE LABEL COMMENTS; Start 12/02/16 at 21:45; Stop 12/04/16 at 12:27; Status DC Insulin Human Regular (NovoLIN R INJ) See Protocol Table ... PHOTOGRAPHER PORTRAIT PRN SQ SEE PROTOCOL TABLE Last administered on 12/03/16 12:54; Start 12/02/16 at 21:45 ; Stop 12/04/16 at 12:27; Status DC Acetaminophen (Ofirmev Inj) 1,000 mg STK-MED ONCE IV ; Start 12/03/16 at 13:41; Stop 12/03/16 at 13:42; Status DC Midazolam HCl (Versed Inj) 2 mg STK-MED ONCE .ROUTE ; Start 12/03/16 at 13:41; Stop 12/03/16 at 13:42; Status DC Dexamethasone Sodium Phosphate (Decadron Inj) 4 mg STK-MED ONCE .ROUTE ; Start 12/03/16 at 13:41; Stop 12/03/16 at 13:42; Status DC Famotidine (Pepcid Inj) 20 mg STK-MED ONCE .ROUTE ; Start 12/03/16 at 13:42; Stop 12/03/16 at 13:43; Status DC Vancomycin HCl (Vancomycin Inj) 1,000 mg STK-MED ONCE .ROUTE Last administered on 12/03/16 14:07; Start 12/03/16 at 14:01; Stop 12/03/16 at 14:02; Status DC Clindamycin Phosphate (Cleocin Inj) 600 mg STK-MED ONCE .ROUTE Last administered on 12/03/16 14:11; Start 12/03/16 at 14:01; Stop 12/03/16 at 14:02 ; Status DC Gentamicin Sulfate (Gentamicin Inj) 240 mg STK-MED ONCE .ROUTE Last administered on 12/03/16 14:19; Start 12/03/16 at 14:01; Stop 12/03/16 at 14:02 ; Status DC Sodium Chloride (NS Flush) 2 ml UNSCH PRN IV FLUSH FLUSH AFTER USING IV ACCESS ; Start 12/03/16 at 16:00 Sodium Chloride 2 ml 2 ml BID IV FLUSH Last administered on 12/18/16 20:07; Start 12/03/16 at 21:00 Cefazolin Sodium 1000 mg/Sodium Chloride 100 ml @ 200 mls/hr Q6H IV Last administered on 12/04/16 06:34; Start 12/03/16 at 18:00; Stop 12/04/16 at 06:29 ; Status DC Vancomycin HCl/ Sodium Chloride (Vancomycin Inj/ NS 250 ml Inj) 250 ml @ 250 mls/hr Q12H IV Last administered on 12/04/16 17:10; Start 12/04/16 at 02:00; Stop 12/04/16 at 14:59; Status DC Miscellaneous Information (Post-op Orders (for Pharmacy)) STAT ONCE XX ; Start 12/03/16 at 16:00; Stop 12/03/16 at 16:20; Status DC Enoxaparin Sodium (Lovenox Inj) 30 mg Q12H SQ Last administered on 12/05/16 04 :23; Start 12/04/16 at 04:00; Stop 12/05/16 at 09:52; Status DC Miscellaneous Information UNSCH PRN XX SEE LABEL COMMENTS; Start 12/03/16 at 16:00 Morphine Sulfate (Morphine Inj) 5 mg Q3H PRN IV PUSH Pain >7 when off INVOICE CONTROL CLERK Last administered on 12/07/16 17:21; Start 12/03/16 at 16:00; Stop 12/08/16 at 09:43 ; Status DC Oxycodone/ Acetaminophen (Percocet 5-325 Mg) 1 tab Q4H PRN PO PAIN LESS THAN 5 ON SCALE Last administered on 12/18/16 05:56; Start 12/03/16 at 16:00 Oxycodone/ Acetaminophen (Percocet 5-325 Mg) 2 tab Q4H PRN PO PAIN SCALE 5 TO 10 Last administered on 12/17/16 11:01; Start 12/03/16 at 16:00 Ketorolac Tromethamine (Toradol Inj) 15 mg Q6H IVP Last administered on 04:23; Start 12/03/16 at 18:00; Stop 12/05/16 at 12:01; Status DC Promethazine HCl (Phenergan) 25 mg Q4H PRN PO NAUSEA OR VOMITING Last administered on 12/17/16 16:13; Start 12/03/16 at 16:00 Ondansetron HCl (Zofran Inj) 4 mg Q6H PRN IVP NAUSEA OR VOMITING Last administered on 12/16/16 20:29; Start 12/03/16 at 16:00 Zolpidem Tartrate (Ambien) 5 mg HS PRN PO SLEEP; Start 12/03/16 at 16:00 Senna/Docusate Sodium (Rivka-Colace) 1 tab BID PO Last administered on 12/18/16 09:33; Start 12/03/16 at 21:00 Magnesium Hydroxide (Milk Of Magnesia Liq) 30 ml Q12H PRN PO MILD - MODERATE CONSTIPATION; Start 12/03/16 at 16:00 Sennosides (Senokot) 17.2 mg Q12H PRN PO MODERATE - SEVERE CONSTIPATION; Start 12/03/16 at 16:00 Bisacodyl (Dulcolax Supp) 10 mg DAILY PRN RECTAL SEVERE CONSITIPATION; Start at 16:00 Lactulose (Lactulose Liq) 30 ml DAILY PRN PO SEVERE CONSITIPATION; Start at 16:00 Fentanyl Citrate (fentaNYL INJ) 250 mcg STK-MED ONCE .ROUTE ; Start 12/03/16 at 16:12; Stop 12/03/16 at 16:13; Status DC Miscellaneous Information ALL NURSING DEPARTME... UNSCH PRN .XX SEE LABEL COMMENTS; Start 12/03/16 at 18:45; Stop 12/04/16 at 18:44; Status DC Dextrose (D50w (Vial) Inj) 25 ml UNSCH PRN IV PUSH HYPOGLYCEMIA - SEE COMMENTS ; Start 12/03/16 at 21:45; Stop 12/04/16 at 12:27; Status DC Glucagon (Glucagon Inj) 1 mg UNSCH PRN OTHER HYPOGLYCEMIA-SEE COMMENTS; Start 12/03/16 at 21:45; Stop 12/04/16 at 12:27; Status DC Insulin Aspart 1 1 ACHS SLIDING SCALE SQ Last administered on 12/04/16 10:33 ; Start 12/03/16 at 21:30; Stop 12/04/16 at 12:20; Status DC Sodium Chloride (NS 1000 ml Inj) 1,000 ml @ 100 mls/hr Q10H IV ; Start at 07:00; Stop 12/04/16 at 12:26; Status DC Insulin Human Regular 10 units 10 units ONCE ONCE IV PUSH Last administered on 12/04/16 07:15; Start 12/04/16 at 07:15; Stop 12/04/16 at 07:16; Status DC Sodium Chloride (NS 500 ml Inj) 500 ml @ 500 mls/hr BOLUS ONCE IV Last administered on 12/04/16 07:37; Start 12/04/16 at 07:30; Stop 12/04/16 at 08:29 ; Status DC Miscellaneous Information Patient in critical care unit? Ass... [id number] .XX Last administered on 12/04/16 08:30; Start 12/04/16 at 08:30 Chlorhexidine Gluconate (Chlorhexidine 2% Cloth) 3 pack DAILY@04 TOPICAL Last administered on 12/07/16 04:00; Start 12/05/16 at 04:00; Stop 12/09/16 at 04:01 ; Status DC Chlorhexidine Gluconate 3 pack 3 pack UNSCH PRN TOPICAL HYGIENIC CARE; Start at 08:30; Stop 12/09/16 at 08:16; Status DC Sodium Chloride 1,000 ml @ 999 mls/hr BOLUS ONCE IV Last administered on 12/04 10:20; Start 12/04/16 at 10:00; Stop 12/04/16 at 11:00; Status DC Sodium Chloride (NS 1000 ml Inj) 1,000 ml @ 100 mls/hr Q10H IV ; Start at 10:00; Stop 12/04/16 at 12:26; Status DC Insulin Detemir (Levemir Inj) 10 units BID SQ ; Start 12/04/16 at 21:00; Stop at 21:00; Status DC Insulin Detemir (Levemir Inj) 10 units ONCE ONCE SQ ; Start 12/04/16 at 11:15; Stop 12/04/16 at 11:22; Status DC Calcium Carbonate (Tums Chew) 500 mg ONCE ONCE CHEW ; Start 12/04/16 at 11:15; Stop 12/04/16 at 11:22; Status DC Calcium Carbonate (Tums Chew) 500 mg Q12HR CHEW Last administered on 12/16/16 20:29; Start 12/04/16 at 21:00 Dextrose (D50w (Vial) Inj) 50 ml UNSCH PRN IV HYPOGLYCEMIA-SEE COMMENTS Last administered on 12/04/16 19:41; Start 12/04/16 at 12:15; Stop 12/05/16 at 09:28 ; Status DC Glucagon (Glucagon Inj) 1 mg UNSCH PRN OTHER HYPOGLYCEMIA-SEE COMMENTS; Start 12/04/16 at 12:15; Stop 12/05/16 at 09:28; Status DC Insulin Human Regular 1 1 Q4H SQ Last administered on 12/05/16 04:23; Start at 13:00; Stop 12/05/16 at 09:18; Status DC Sodium Chloride 1,000 ml @ 999 mls/hr BOLUS ONCE IV Last administered on 12/04 13:15; Start 12/04/16 at 12:15; Stop 12/04/16 at 13:15; Status DC Sodium Chloride (NS 1000 ml Inj) 1,000 ml @ 100 mls/hr Q10H IV Last administered on 12/06/16 06:27; Start 12/04/16 at 12:15; Stop 12/06/16 at 10:01 ; Status DC Sodium Polystyrene Sulfonate (Kayexalate Liq) 30 gm ONCE ONCE PO Last administered on 12/04/16 13:15; Start 12/04/16 at 12:15; Stop 12/04/16 at 12:22 ; Status DC Albuterol/ Ipratropium (Duoneb Neb) 1 ampule Q4HR NEB NEB Last administered on 12/08/16 15:36; Start 12/04/16 at 16:00; Stop 12/08/16 at 16:00; Status DC Albuterol/ Ipratropium 1 ampule 1 ampule Q2HR NEB PRN NEB SHORTNESS OF BREATH; Start 12/04/16 at 12:15 Calcium Gluconate/ Sodium Chloride (Calcium Gluconate Inj/NS Inj) 110 ml @ 110 mls/hr ONCE ONCE IV Last administered on 12/05/16 10:22; Start 12/05/16 at 10 :00; Stop 12/05/16 at 10:59; Status DC Dextrose (D50w (Vial) Inj) 50 ml UNSCH PRN IV HYPOGLYCEMIA-SEE COMMENTS Last administered on 12/15/16 05:33; Start 12/05/16 at 09:30 Glucagon (Glucagon Inj) 1 mg UNSCH PRN OTHER HYPOGLYCEMIA-SEE COMMENTS; Start 12/05/16 at 09:30 Insulin Human Regular (NovoLIN R SUPPLEMENTAL SCALE) 1 Q4H SQ Last administered on 12/06/16 09:25; Start 12/05/16 at 10:00; Stop 12/06/16 at 15:03 ; Status DC Enoxaparin Sodium (Lovenox Inj) 30 mg Q24H SQ Last administered on 12/19/16 09: 14; Start 12/06/16 at 09:00 Ketorolac Tromethamine (Toradol Inj) 15 mg Q6H IVP Last administered on 16:12; Start 12/05/16 at 16:15; Stop 12/05/16 at 16:16; Status DC Clonidine (Catapres) 0.1 mg Q8HR PO Last administered on 12/19/16 06:00; Start 12/06/16 at 09:45 Bumetanide (Bumex Inj) 1 mg ONCE ONCE IV PUSH Last administered on 12/06/16 10:28; Start 12/06/16 at 09:45; Stop 12/06/16 at 10:04; Status DC Hydralazine HCl (Apresoline Inj) 10 mg Q6H PRN IV PUSH SYS BP GREATER THAN 160 MMHG Last administered on 12/07/16 16:00; Start 12/06/16 at 10:15; Stop at 13:36; Status DC Insulin Human Regular (NovoLIN R SUPPLEMENTAL SCALE) 1 ACHS SLIDING SCALE SQ Last administered on 12/11/16 11:00; Start 12/06/16 at 16:00; Stop 12/11/16 at 13 :36; Status DC Bumetanide (Bumex Inj) 1 mg ONCE ONCE IV PUSH Last administered on 12/07/16 15:18; Start 12/07/16 at 14:30; Stop 12/07/16 at 14:31; Status DC Insulin Detemir (Levemir Inj) 10 units Q12HR SQ ; Start 12/08/16 at 09:45; Stop 12/08/16 at 10:37; Status DC Insulin Human Regular (NovoLIN R SUPPLEMENTAL SCALE) 1 ACHS SLIDING SCALE SQ Last administered on 12/18/16 20:06; Start 12/11/16 at 16:00 Amlodipine Besylate (Norvasc) 5 mg DAILY PO Last administered on 12/19/16 09:08 ; Start 12/12/16 at 09:00 Clonidine (Catapres) 0.1 mg Q6H PRN PO BP > 180/100; Start 12/11/16 at 13:30 Mupirocin (Bactroban Nasal 2% Oint) 1 applic BID EACH NARE Last administered on 12/15/16 09:02; Start 12/11/16 at 14:00; Stop 12/18/16 at 13:59; Status DC Insulin Detemir (Levemir Inj) 10 units HS SQ ; Start 12/11/16 at 21:00; Stop 12/12 at 10:14; Status DC Insulin Glargine (Lantus Inj) 10 units HS SQ Last administered on 12/14/16 22: 02; Start 12/12/16 at 21:00; Stop 12/15/16 at 08:51; Status DC Phenytoin (Dilantin) 200 mg BID PO Last administered on 12/19/16 09:08; Start 12/12/16 at 21:00 Phenytoin (Dilantin) 200 mg ONCE ONCE PO Last administered on 12/12/16 14:22; Start 12/12/16 at 14:00; Stop 12/12/16 at 14:01; Status DC Phenytoin (Dilantin) 300 mg NOW ONCE PO Last administered on 12/12/16 14:22; Start 12/12/16 at 14:00; Stop 12/12/16 at 14:01; Status DC Phenytoin (Dilantin) 300 mg ONCE ONCE PO Last administered on 12/13/16 15:29; Start 12/13/16 at 14:00; Stop 12/13/16 at 14:01; Status DC Insulin Glargine (Lantus Inj) 6 units HS SQ ; Start 12/15/16 at 21:00 A/P Assessment and Plan Respiratory insufficiency -Most likely secondary to over sedation from narcotics. -Resolved. Acute on chronic renal failure stage III. Resolved T2 DM, uncontrolled. A1c 10.8 -She is on insulin sliding scale. -Patient is allergic to Levemir and that is on our formulary. resumed Lantus - right closed tibial fracture status post reymundo fixation on December 03. -Nonweightbearing, incentive spirometry, wound care, physical therapy and pain management with Percocet. Patient counseled regarding narcotics Anemia -Secondary to blood loss due to surgery. -Status post transfusion with 2 PRBC -Responded appropriately to transfusion. -GI was consulted due to anemia. Per GI she had colonoscopy and endoscopy done 2 months ago which was normal. She had no signs of any GI bleed. GI signed off. Hypertension. continue Norvasc Continue scheduled clonidine and as needed History of seizure disorder, CVA and lupus -Continue home medication. -On Keppra 500mg BID, Dilantin 100mg BID. -monitor dilantin level periodically. DVT prophylaxis with SCDs and Lovenox 30mg QD per Ortho Discharge Planning discharge planning when safe with PT. Maia Hairston MD Dec 19, 2016 10:09
[2016-12-19 12:00] VITALS: BP 148/85; PULSE 95; RESP 16; TEMP 97.3; O2SAT 93
[2016-12-19 16:00] VITALS: BP 161/89; PULSE 97; RESP 16; TEMP 96.6; O2SAT 94
[2016-12-19] MEDS: INSULIN GLARGINE 1,000 UNITS/10 ML VIAL SQ SCH (21:00)
[2016-12-19 21:08] VITALS: BP 159/82; PULSE 96; RESP 14; TEMP 96.9; O2SAT 95
[2016-12-20 00:15] VITALS: BP 103/59; PULSE 95; RESP 17; TEMP 97.1; O2SAT 92
[2016-12-20] MEDS: INSULIN NovoLIN REGULAR SUPPLEMENTAL SCALE SQ SCH ×4 (06:11→21:00)
[2016-12-20] MEDS: cloNIDine HCL 0.1 MG TAB PO SCH ×3 (06:12→21:24)
--- NOTE | 2016-12-20 07:45 | HHI.PR ---
Subjective Remarks resting comfortably with no distress. pain is controlled. no new complaints. Objective Vitals Vital Signs Date Time Temp Pulse Resp B/P Pulse Ox O2 Delivery O2 Flow Rate FiO2 12/20/16 00:15 97.1 95 17 103/59 92 12/19/16 21:08 96.9 96 14 159/82 95 12/19/16 16:00 96.6 97 16 161/89 94 12/19/16 12:00 97.3 95 16 148/85 93 12/19/16 07:55 96.7 91 17 133/76 95 I/O 12/19/16 12/19/16 12/19/16 12/20/16 12/20/16 12/20/16 07:00 15:00 23:00 07:00 15:00 23:00 Intake Total 750 ml 660 ml 120 ml 120 ml Balance 750 ml 660 ml 120 ml 120 ml Intake Oral 240 ml 660 ml 120 ml 120 ml IV Total 510 ml # Voids 0 1 # Bowel Movements 0 0 Imaging Last Impressions Chest X-Ray 12/04/16 0000 Signed Impressions: Service Date/Time: Sunday, December 04, 2016 12:28 - CONCLUSION: There is platelike atelectasis in the left lower lung. Otherwise the rest of the lungs are grossly clear. Chaparro Reece MD Tibia/Fibula X-Ray 12/03/16 0000 Signed Impressions: Service Date/Time: Saturday, December 03, 2016 15:09 - CONCLUSION: Excellent alignment of the patient's tibial fracture post rodding. Patient has a minimally displaced fibular fracture as well. Umesh Farah MD Ankle X-Ray 12/02/16 0000 Signed Impressions: Service Date/Time: November 18:16 - CONCLUSION: 1. The ankle mortise is intact. 2. Distal tibial and fibular fractures again noted. Please see right leg report for further details. Javier Marino MD Objective Remarks GENERAL: This is a well-nourished, well-developed patient, in no apparent distress. CARDIOVASCULAR: Regular rate and regular rhythm without murmurs, gallops, or rubs. RESPIRATORY: Clear to auscultation. Breath sounds equal bilaterally. No wheezes , rales, or rhonchi. GASTROINTESTINAL: Abdomen soft, non-tender, nondistended. Normal, active bowel sounds MUSCULOSKELETAL: right knee covered with clean dressing. NEURO: Alert & Oriented x4 to person, place, time, situation. Moves all ext x4 Procedures Reymundo fixation right lower extremity Medications and IVs Current Medications Acetaminophen/ Hydrocodone Bitart ([place] 5-325 Mg) 1 tab ONCE ONCE PO Last administered on 12/02/16 18:27; Start 12/02/16 at 18:15; Stop 12/02/16 at 18:16 ; Status DC Sodium Chloride (NS Flush) 2 ml UNSCH PRN IV FLUSH FLUSH AFTER USING IV ACCESS Last administered on 12/02/16 19:20; Start 12/02/16 at 18:30; Stop 12/02/16 at 20:10; Status DC Morphine Sulfate (Morphine Inj) 6 mg ONCE ONCE IV PUSH Last administered on 19:20; Start 12/02/16 at 19:15; Stop 12/02/16 at 19:16; Status DC Sodium Chloride (NS Flush) 2 ml UNSCH PRN IV FLUSH FLUSH AFTER USING IV ACCESS ; Start 12/02/16 at 20:00; Stop 12/03/16 at 16:13; Status DC Sodium Chloride (NS Flush) 2 ml BID IV FLUSH Last administered on 12/03/16 09: 09; Start 12/02/16 at 21:00; Stop 12/03/16 at 16:13; Status DC Naloxone HCl (Narcan Inj) 0.4 mg UNSCH PRN IV SEE LABEL COMMENTS; Start at 20:00 Morphine Sulfate (Morphine Inj) 2 mg Q3H PRN IV PUSH pain >5 Last administered on 12/03/16 09:09; Start 12/02/16 at 20:00; Stop 12/03/16 at 16:16; Status DC Dextrose (D50w (Vial) Inj) 50 ml UNSCH PRN IV HYPOGLYCEMIA-SEE COMMENTS; Start 12/02/16 at 20:15; Stop 12/03/16 at 16:12; Status DC Glucagon (Glucagon Inj) 1 mg UNSCH PRN OTHER HYPOGLYCEMIA-SEE COMMENTS; Start 12/02/16 at 20:15; Stop 12/03/16 at 16:12; Status DC Atorvastatin Calcium (Lipitor) 80 mg DAILY PO Last administered on 12/19/16 09: 08; Start 12/03/16 at 09:00 Clonidine (Catapres) 0.1 mg DAILY PO Last administered on 12/03/16 09:08; Start 12/03/16 at 09:00; Stop 12/04/16 at 12:20; Status DC Fluoxetine HCl (PROzac) 10 mg DAILY PO Last administered on 12/19/16 09:08; Start 12/03/16 at 09:00 Levetriacetam (Keppra) 500 mg BID PO Last administered on 12/19/16 21:04; Start 12/02/16 at 21:00 Phenytoin (Dilantin) 100 mg BID PO Last administered on 12/12/16 09:35; Start 12/02/16 at 21:00; Stop 12/12/16 at 13:50; Status DC Dextrose (D50w (Vial) Inj) 50 ml UNSCH PRN IV HYPOGLYCEMIA-SEE COMMENTS; Start 12/02/16 at 21:15; Stop 12/03/16 at 21:36; Status DC Glucagon (Glucagon Inj) 1 mg UNSCH PRN OTHER HYPOGLYCEMIA-SEE COMMENTS; Start 12/02/16 at 21:15; Stop 12/03/16 at 21:36; Status DC Insulin Aspart 1 1 ACHS SLIDING SCALE SQ ; Start 12/03/16 at 07:00; Stop at 07:00; Status DC Lactated Ringer's 1,000 ml @ 30 mls/hr Q24H PRN IV SEE LABEL COMMENTS; Start at 21:45; Stop 12/04/16 at 12:25; Status DC Sodium Chloride (NS 500 ml Inj) 500 ml @ 30 mls/hr [id number] PRN IV SEE LABEL COMMENTS; Start 12/02/16 at 21:45; Stop 12/04/16 at 12:25; Status DC Metoprolol Tartrate (Lopressor) 25 mg LABOR ECONOMIST PRN PO SEE LABEL COMMENTS; Start 12/02/16 at 21:45; Stop 12/05/16 at 21:44; Status DC Povidone Iodine (Betadine 5% Antisepsis Kit) 1 applic LABOR ECONOMIST PRN EACH NARE SEE LABEL COMMENTS; Start 12/02/16 at 21:45; Stop 12/05/16 at 21:44; Status DC Chlorhexidine Gluconate (Chlorhexidine 2% Cloth) 3 pack LABOR ECONOMIST PRN TOPICAL SEE LABEL COMMENTS; Start 12/02/16 at 21:45; Stop 12/04/16 at 12:27; Status DC Insulin Human Regular (NovoLIN R INJ) See Protocol Table ... LABOR ECONOMIST PRN SQ SEE PROTOCOL TABLE Last administered on 12/03/16 12:54; Start 12/02/16 at 21:45 ; Stop 12/04/16 at 12:27; Status DC Acetaminophen (Ofirmev Inj) 1,000 mg STK-MED ONCE IV ; Start 12/03/16 at 13:41; Stop 12/03/16 at 13:42; Status DC Midazolam HCl (Versed Inj) 2 mg STK-MED ONCE .ROUTE ; Start 12/03/16 at 13:41; Stop 12/03/16 at 13:42; Status DC Dexamethasone Sodium Phosphate (Decadron Inj) 4 mg STK-MED ONCE .ROUTE ; Start 12/03/16 at 13:41; Stop 12/03/16 at 13:42; Status DC Famotidine (Pepcid Inj) 20 mg STK-MED ONCE .ROUTE ; Start 12/03/16 at 13:42; Stop 12/03/16 at 13:43; Status DC Vancomycin HCl (Vancomycin Inj) 1,000 mg STK-MED ONCE .ROUTE Last administered on 12/03/16 14:07; Start 12/03/16 at 14:01; Stop 12/03/16 at 14:02; Status DC Clindamycin Phosphate (Cleocin Inj) 600 mg STK-MED ONCE .ROUTE Last administered on 12/03/16 14:11; Start 12/03/16 at 14:01; Stop 12/03/16 at 14:02 ; Status DC Gentamicin Sulfate (Gentamicin Inj) 240 mg STK-MED ONCE .ROUTE Last administered on 12/03/16 14:19; Start 12/03/16 at 14:01; Stop 12/03/16 at 14:02 ; Status DC Sodium Chloride (NS Flush) 2 ml UNSCH PRN IV FLUSH FLUSH AFTER USING IV ACCESS ; Start 12/03/16 at 16:00 Sodium Chloride 2 ml 2 ml BID IV FLUSH Last administered on 12/19/16 21:06; Start 12/03/16 at 21:00 Cefazolin Sodium 1000 mg/Sodium Chloride 100 ml @ 200 mls/hr Q6H IV Last administered on 12/04/16 06:34; Start 12/03/16 at 18:00; Stop 12/04/16 at 06:29 ; Status DC Vancomycin HCl/ Sodium Chloride (Vancomycin Inj/ NS 250 ml Inj) 250 ml @ 250 mls/hr Q12H IV Last administered on 12/04/16 17:10; Start 12/04/16 at 02:00; Stop 12/04/16 at 14:59; Status DC Miscellaneous Information (Post-op Orders (for Pharmacy)) STAT ONCE XX ; Start 12/03/16 at 16:00; Stop 12/03/16 at 16:20; Status DC Enoxaparin Sodium (Lovenox Inj) 30 mg Q12H SQ Last administered on 12/05/16 04 :23; Start 12/04/16 at 04:00; Stop 12/05/16 at 09:52; Status DC Miscellaneous Information UNSCH PRN XX SEE LABEL COMMENTS; Start 12/03/16 at 16:00 Morphine Sulfate (Morphine Inj) 5 mg Q3H PRN IV PUSH 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[employer] Last administered on 12/07/16 17:21; Start 12/03/16 at 16:00; Stop 12/08/16 at 09:43 ; Status DC Oxycodone/ Acetaminophen (Percocet 5-325 Mg) 1 tab Q4H PRN PO PAIN LESS THAN 5 ON SCALE Last administered on 12/18/16 05:56; Start 12/03/16 at 16:00 Oxycodone/ Acetaminophen (Percocet 5-325 Mg) 2 tab Q4H PRN PO PAIN SCALE 5 TO 10 Last administered on 12/17/16 11:01; Start 12/03/16 at 16:00 Ketorolac Tromethamine (Toradol Inj) 15 mg Q6H IVP Last administered on 04:23; Start 12/03/16 at 18:00; Stop 12/05/16 at 12:01; Status DC Promethazine HCl (Phenergan) 25 mg Q4H PRN PO NAUSEA OR VOMITING Last administered on 12/17/16 16:13; Start 12/03/16 at 16:00 Ondansetron HCl (Zofran Inj) 4 mg Q6H PRN IVP NAUSEA OR VOMITING Last administered on 12/16/16 20:29; Start 12/03/16 at 16:00 Zolpidem Tartrate (Ambien) 5 mg HS PRN PO SLEEP; Start 12/03/16 at 16:00 Senna/Docusate Sodium (Rivka-Colace) 1 tab BID PO Last administered on 12/19/16 21:04; Start 12/03/16 at 21:00 Magnesium Hydroxide (Milk Of Magnesia Liq) 30 ml Q12H PRN PO MILD - MODERATE CONSTIPATION; Start 12/03/16 at 16:00 Sennosides (Senokot) 17.2 mg Q12H PRN PO MODERATE - SEVERE CONSTIPATION; Start 12/03/16 at 16:00 Bisacodyl (Dulcolax Supp) 10 mg DAILY PRN RECTAL SEVERE CONSITIPATION; Start at 16:00 Lactulose (Lactulose Liq) 30 ml DAILY PRN PO SEVERE CONSITIPATION; Start at 16:00 Fentanyl Citrate (fentaNYL INJ) 250 mcg STK-MED ONCE .ROUTE ; Start 12/03/16 at 16:12; Stop 12/03/16 at 16:13; Status DC Miscellaneous Information ALL NURSING DEPARTME... UNSCH PRN .XX SEE LABEL COMMENTS; Start 12/03/16 at 18:45; Stop 12/04/16 at 18:44; Status DC Dextrose (D50w (Vial) Inj) 25 ml UNSCH PRN IV PUSH HYPOGLYCEMIA - SEE COMMENTS ; Start 12/03/16 at 21:45; Stop 12/04/16 at 12:27; Status DC Glucagon (Glucagon Inj) 1 mg UNSCH PRN OTHER HYPOGLYCEMIA-SEE COMMENTS; Start 12/03/16 at 21:45; Stop 12/04/16 at 12:27; Status DC Insulin Aspart 1 1 ACHS SLIDING SCALE SQ Last administered on 12/04/16 10:33 ; Start 12/03/16 at 21:30; Stop 12/04/16 at 12:20; Status DC Sodium Chloride (NS 1000 ml Inj) 1,000 ml @ 100 mls/hr Q10H IV ; Start at 07:00; Stop 12/04/16 at 12:26; Status DC Insulin Human Regular 10 units 10 units ONCE ONCE IV PUSH Last administered on 12/04/16 07:15; Start 12/04/16 at 07:15; Stop 12/04/16 at 07:16; Status DC Sodium Chloride (NS 500 ml Inj) 500 ml @ 500 mls/hr BOLUS ONCE IV Last administered on 12/04/16 07:37; Start 12/04/16 at 07:30; Stop 12/04/16 at 08:29 ; Status DC Miscellaneous Information Patient in critical care unit? Ass... [id number] .XX Last administered on 12/04/16 08:30; Start 12/04/16 at 08:30 Chlorhexidine Gluconate (Chlorhexidine 2% Cloth) 3 pack DAILY@04 TOPICAL Last administered on 12/07/16 04:00; Start 12/05/16 at 04:00; Stop 12/09/16 at 04:01 ; Status DC Chlorhexidine Gluconate 3 pack 3 pack UNSCH PRN TOPICAL HYGIENIC CARE; Start at 08:30; Stop 12/09/16 at 08:16; Status DC Sodium Chloride 1,000 ml @ 999 mls/hr BOLUS ONCE IV Last administered on 12/04 10:20; Start 12/04/16 at 10:00; Stop 12/04/16 at 11:00; Status DC Sodium Chloride (NS 1000 ml Inj) 1,000 ml @ 100 mls/hr Q10H IV ; Start at 10:00; Stop 12/04/16 at 12:26; Status DC Insulin Detemir (Levemir Inj) 10 units BID SQ ; Start 12/04/16 at 21:00; Stop at 21:00; Status DC Insulin Detemir (Levemir Inj) 10 units ONCE ONCE SQ ; Start 12/04/16 at 11:15; Stop 12/04/16 at 11:22; Status DC Calcium Carbonate (Tums Chew) 500 mg ONCE ONCE CHEW ; Start 12/04/16 at 11:15; Stop 12/04/16 at 11:22; Status DC Calcium Carbonate (Tums Chew) 500 mg Q12HR CHEW Last administered on 12/16/16 20:29; Start 12/04/16 at 21:00 Dextrose (D50w (Vial) Inj) 50 ml UNSCH PRN IV HYPOGLYCEMIA-SEE COMMENTS Last administered on 12/04/16 19:41; Start 12/04/16 at 12:15; Stop 12/05/16 at 09:28 ; Status DC Glucagon (Glucagon Inj) 1 mg UNSCH PRN OTHER HYPOGLYCEMIA-SEE COMMENTS; Start 12/04/16 at 12:15; Stop 12/05/16 at 09:28; Status DC Insulin Human Regular 1 1 Q4H SQ Last administered on 12/05/16 04:23; Start at 13:00; Stop 12/05/16 at 09:18; Status DC Sodium Chloride 1,000 ml @ 999 mls/hr BOLUS ONCE IV Last administered on 12/04 13:15; Start 12/04/16 at 12:15; Stop 12/04/16 at 13:15; Status DC Sodium Chloride (NS 1000 ml Inj) 1,000 ml @ 100 mls/hr Q10H IV Last administered on 12/06/16 06:27; Start 12/04/16 at 12:15; Stop 12/06/16 at 10:01 ; Status DC Sodium Polystyrene Sulfonate (Kayexalate Liq) 30 gm ONCE ONCE PO Last administered on 12/04/16 13:15; Start 12/04/16 at 12:15; Stop 12/04/16 at 12:22 ; Status DC Albuterol/ Ipratropium (Duoneb Neb) 1 ampule Q4HR NEB NEB Last administered on 12/08/16 15:36; Start 12/04/16 at 16:00; Stop 12/08/16 at 16:00; Status DC Albuterol/ Ipratropium 1 ampule 1 ampule Q2HR NEB PRN NEB SHORTNESS OF BREATH; Start 12/04/16 at 12:15 Calcium Gluconate/ Sodium Chloride (Calcium Gluconate Inj/NS Inj) 110 ml @ 110 mls/hr ONCE ONCE IV Last administered on 12/05/16 10:22; Start 12/05/16 at 10 :00; Stop 12/05/16 at 10:59; Status DC Dextrose (D50w (Vial) Inj) 50 ml UNSCH PRN IV HYPOGLYCEMIA-SEE COMMENTS Last administered on 12/15/16 05:33; Start 12/05/16 at 09:30 Glucagon (Glucagon Inj) 1 mg UNSCH PRN OTHER HYPOGLYCEMIA-SEE COMMENTS; Start 12/05/16 at 09:30 Insulin Human Regular (NovoLIN R SUPPLEMENTAL SCALE) 1 Q4H SQ Last administered on 12/06/16 09:25; Start 12/05/16 at 10:00; Stop 12/06/16 at 15:03 ; Status DC Enoxaparin Sodium (Lovenox Inj) 30 mg Q24H SQ Last administered on 12/19/16 09: 14; Start 12/06/16 at 09:00 Ketorolac Tromethamine (Toradol Inj) 15 mg Q6H IVP Last administered on 16:12; Start 12/05/16 at 16:15; Stop 12/05/16 at 16:16; Status DC Clonidine (Catapres) 0.1 mg Q8HR PO Last administered on 12/20/16 06:12; Start 12/06/16 at 09:45 Bumetanide (Bumex Inj) 1 mg ONCE ONCE IV PUSH Last administered on 12/06/16 10:28; Start 12/06/16 at 09:45; Stop 12/06/16 at 10:04; Status DC Hydralazine HCl (Apresoline Inj) 10 mg Q6H PRN IV PUSH SYS BP GREATER THAN 160 MMHG Last administered on 12/07/16 16:00; Start 12/06/16 at 10:15; Stop at 13:36; Status DC Insulin Human Regular (NovoLIN R SUPPLEMENTAL SCALE) 1 ACHS SLIDING SCALE SQ Last administered on 12/11/16 11:00; Start 12/06/16 at 16:00; Stop 12/11/16 at 13 :36; Status DC Bumetanide (Bumex Inj) 1 mg ONCE ONCE IV PUSH Last administered on 12/07/16 15:18; Start 12/07/16 at 14:30; Stop 12/07/16 at 14:31; Status DC Insulin Detemir (Levemir Inj) 10 units Q12HR SQ ; Start 12/08/16 at 09:45; Stop 12/08/16 at 10:37; Status DC Insulin Human Regular (NovoLIN R SUPPLEMENTAL SCALE) 1 ACHS SLIDING SCALE SQ Last administered on 12/18/16 20:06; Start 12/11/16 at 16:00 Amlodipine Besylate (Norvasc) 5 mg DAILY PO Last administered on 12/19/16 09:08 ; Start 12/12/16 at 09:00 Clonidine (Catapres) 0.1 mg Q6H PRN PO BP > 180/100; Start 12/11/16 at 13:30 Mupirocin (Bactroban Nasal 2% Oint) 1 applic BID EACH NARE Last administered on 12/18/16 09:00; Start 12/11/16 at 14:00; Stop 12/18/16 at 13:59; Status DC Insulin Detemir (Levemir Inj) 10 units HS SQ ; Start 12/11/16 at 21:00; Stop 12/12 at 10:14; Status DC Insulin Glargine (Lantus Inj) 10 units HS SQ Last administered on 12/14/16 22: 02; Start 12/12/16 at 21:00; Stop 12/15/16 at 08:51; Status DC Phenytoin (Dilantin) 200 mg BID PO Last administered on 12/19/16 21:05; Start 12/12/16 at 21:00 Phenytoin (Dilantin) 200 mg ONCE ONCE PO Last administered on 12/12/16 14:22; Start 12/12/16 at 14:00; Stop 12/12/16 at 14:01; Status DC Phenytoin (Dilantin) 300 mg NOW ONCE PO Last administered on 12/12/16 14:22; Start 12/12/16 at 14:00; Stop 12/12/16 at 14:01; Status DC Phenytoin (Dilantin) 300 mg ONCE ONCE PO Last administered on 12/13/16 15:29; Start 12/13/16 at 14:00; Stop 12/13/16 at 14:01; Status DC Insulin Glargine (Lantus Inj) 6 units HS SQ ; Start 12/15/16 at 21:00 A/P Assessment and Plan Respiratory insufficiency- -Most likely secondary to over sedation from narcotics. -Resolved. Acute on chronic renal failure stage III. Resolved T2 DM, uncontrolled. A1c 10.8 -She is on insulin sliding scale. -Patient is allergic to Levemir and that is on our formulary. resumed Lantus - right closed tibial fracture status post reymundo fixation on December 03. -Nonweightbearing, incentive spirometry, wound care, physical therapy and pain management with Percocet. Patient counseled regarding narcotics Anemia -Secondary to blood loss due to surgery. -Status post transfusion with 2 PRBC -Responded appropriately to transfusion. -GI was consulted due to anemia. Per GI she had colonoscopy and endoscopy done 2 months ago which was normal. She had no signs of any GI bleed. GI signed off. Hypertension. continue Norvasc Continue scheduled clonidine and as needed History of seizure disorder, CVA and lupus -Continue home medication. -On Keppra 500mg BID, Dilantin 100mg BID. -monitor dilantin level periodically. DVT prophylaxis with SCDs and Lovenox 30mg QD per Ortho Discharge Planning discharge planning when safe with PT. Maia Hairston MD Dec 20, 2016 07:45
[2016-12-20 08:00] VITALS: BP 116/63; PULSE 98; RESP 18; TEMP 97.6; O2SAT 91
[2016-12-20] MEDS: amLODIPine BESYLATE 5 MG TAB PO SCH (08:47)
[2016-12-20] MEDS: PHENYTOIN SODIUM 100 MG CAP PO SCH ×2 (08:47→21:24)
[2016-12-20] MEDS: ATORVASTATIN 80 MG TAB PO SCH (08:47)
[2016-12-20] MEDS: levETIRAcetam 500 MG TAB PO SCH ×2 (08:47→21:24)
[2016-12-20] MEDS: FLUoxetine HCL 10 MG CAP PO SCH (08:47)
[2016-12-20] MEDS: CALCIUM CARBONATE 500 MG CHEWABLE TAB CHEW SCH ×3 (08:48→21:24)
[2016-12-20] MEDS: ENOXAPARIN SODIUM 30 MG/0.3 ML SYRINGE SQ SCH (08:48)
[2016-12-20] MEDS: DOCUSATE SODIUM 50 MG/SENNA 8.6 MG TAB PO SCH ×3 (08:48→21:24)
[2016-12-20] MEDS: oxyCODONE/ACETAMINOPHEN 5 MG/325 MG TAB PO PRN ×3 (08:58→21:29)
[2016-12-20] MEDS: SODIUM CHLORIDE 0.9% FLUSH 10 ML FLUSH IV FLUSH SCH ×2 (08:58→21:29)
[2016-12-20 12:00] VITALS: BP 147/76; PULSE 101; RESP 18; TEMP 97.5; O2SAT 92
[2016-12-20] MEDS: ONDANSETRON HCL 4 MG/2 ML VIAL IVP PRN (13:51)
[2016-12-20 16:00] VITALS: BP 180/87; PULSE 99; RESP 18; TEMP 97.2; O2SAT 97
[2016-12-20] MEDS ORDERED: cloNIDine HCL 0.1 MG TAB PO ONE (16:45)
[2016-12-20 16:55] VITALS: BP 137/67
[2016-12-20 20:00] VITALS: BP 133/73; PULSE 95; RESP 19; TEMP 97.4; O2SAT 94
[2016-12-20] MEDS: INSULIN GLARGINE 1,000 UNITS/10 ML VIAL SQ SCH (21:00)
[2016-12-21 05:02] LABS: AUTOMATED NEUTROPHIL # 2.9 TH/MM3 (1.8-7.7); BASOPHIL # 0.1 TH/MM3 (0-0.2); BASOPHIL % 1.8 % (0.0-2.0); EOSINOPHIL # 0.2 TH/MM3 (0-0.4); EOSINOPHIL % 4.1 % (0.0-4.0); HEMATOCRIT 32.6 % (35.0-46.0); HEMO FLAGS DIFF FINAL; LYMPH % 32.6 % (9.0-44.0); LYMPHOCYTE # 1.8 TH/MM3 (1.0-4.8); MEAN CELL VOLUME 91.4 FL (80.0-100.0); MEAN CORPUSCULAR HEMOGLOBIN 29.2 PG (27.0-34.0); MONO % 7.5 % (0.0-8.0); PLATELET COUNT 283 TH/MM3 (150-450); RED BLOOD COUNT 3.57 MIL/MM3 (4.00-5.30); RED CELL DISTRIBUTION WIDTH 14.2 % (11.6-17.2); WHITE BLOOD COUNT 5.4 TH/MM3 (4.0-11.0)
[2016-12-21 05:11] LABS: POTASSIUM 4.9 MEQ/L (3.5-5.1)
[2016-12-21 05:15] LABS: BICARBONATE 26.6 MEQ/L (21.0-32.0)
[2016-12-21 05:27] VITALS: BP 145/92; PULSE 96
[2016-12-21] MEDS: cloNIDine HCL 0.1 MG TAB PO SCH ×3 (05:29→21:17)
[2016-12-21] MEDS: INSULIN NovoLIN REGULAR SUPPLEMENTAL SCALE SQ SCH ×4 (06:03→21:31)
[2016-12-21 08:00] VITALS: BP 120/79; PULSE 92; RESP 16; TEMP 98.1; O2SAT 95
[2016-12-21] MEDS: ENOXAPARIN SODIUM 30 MG/0.3 ML SYRINGE SQ SCH (10:12)
[2016-12-21] MEDS: amLODIPine BESYLATE 5 MG TAB PO SCH (10:13)
[2016-12-21] MEDS: PHENYTOIN SODIUM 100 MG CAP PO SCH ×2 (10:13→21:30)
[2016-12-21] MEDS: levETIRAcetam 500 MG TAB PO SCH ×2 (10:13→21:30)
[2016-12-21] MEDS: DOCUSATE SODIUM 50 MG/SENNA 8.6 MG TAB PO SCH ×2 (10:13→21:00)
[2016-12-21] MEDS: FLUoxetine HCL 10 MG CAP PO SCH (10:13)
[2016-12-21] MEDS: CALCIUM CARBONATE 500 MG CHEWABLE TAB CHEW SCH ×2 (10:13→21:00)
[2016-12-21] MEDS: ATORVASTATIN 40 MG TAB PO SCH (10:13)
[2016-12-21] MEDS: SODIUM CHLORIDE 0.9% FLUSH 10 ML FLUSH IV FLUSH SCH ×2 (10:20→21:00)
[2016-12-21] MEDS: SODIUM CHLOR 0.9% 1000 ML INJ 1,000 ML IV SCH (12:49)
[2016-12-21 13:00] VITALS: BP 175/104; PULSE 102; RESP 12; TEMP 97.4; O2SAT 97
--- NOTE | 2016-12-21 13:39 | HHI.PR ---
Subjective Remarks Patient initially presented to the ED on 12/02/16 after fall. She sustained a fracture to the right lower extremity and underwent right tibia IM reymundo fixation on 12/03. On 12/04 a [facility] was called and the patient was found to be in respiratory acidosis thought to be attributed to narcotics. Her BGL was also 585 at the time. She was found to be anemic requiring blood transfusion on . Patient was stabilized. She was transferred to [facility] last night for further rehabilitation. Patient denies any current pain. Denies any shortness of breath, vomiting, or diarrhea. States she has not been eating that well. Objective Vitals Vital Signs Date Time Temp Pulse Resp B/P Pulse Ox O2 Delivery O2 Flow Rate FiO2 12/21/16 13:00 97.4 102 12 175/104 97 12/21/16 08:00 98.1 92 16 120/79 95 12/21/16 05:27 96 145/92 12/20/16 22:34 18 12/20/16 20:00 97.4 95 19 133/73 94 12/20/16 16:55 137/67 12/20/16 16:00 97.2 99 18 180/87 97 I/O 12/20/16 12/20/16 12/20/16 12/21/16 12/21/16 12/21/16 07:00 15:00 23:00 07:00 15:00 23:00 Intake Total 120 ml 640 ml 120 ml 120 ml Balance 120 ml 640 ml 120 ml 120 ml Intake Oral 120 ml 640 ml 120 ml 120 ml # Voids 2 0 0 # Bowel Movements 1 Result Diagram: 12/21/16 0445 12/21/16 0445 Objective Remarks GENERAL: Well-developed, well-nourished patient in no apparent distress. SKIN: Warm and dry. Bandage to the right lower leg. CARDIOVASCULAR: Tachycardic rate and regular rhythm. RESPIRATORY: No accessory muscle use. Decreased breath sounds throughout, but clear. GASTROINTESTINAL: Abdomen soft, non-tender, nondistended. MUSCULOSKELETAL: Mohit wrap to right knee. Capillary refill normal digits of right toes. No swelling to the right calf. NEUROLOGICAL: Awake and alert. Normal speech. PSYCHIATRIC: Appropriate mood and affect. Procedures 12/03: IM Reymundo fixation right lower extremity Urinary Catheter: No Vascular Central Line Catheter: No A/P Problem List: (1) Fibula fracture ICD Code: S82.409A Status: Acute (2) Tibia fracture ICD Code: S82.209A Status: Acute Assessment and Plan Respiratory insufficiency: Resolved. -Most likely secondary to over sedation from narcotics. Acute on chronic renal failure stage III: Acutely worse. Creatinine increased to 2.0, previously 1.43 on 12/08/16. -Patient states she has not been eating that well. Will start IV NS @ 84 mL/hr -Repeat am BMP. T2 DM, uncontrolled: A1c 10.8 -Bedside Accu-Cheks, sliding scale insulin. BGL stable this morning at 149. -Patient is allergic to Levemir; resumed Lantus. Right closed tibial fracture status post reymundo fixation on December 03. -Nonweightbearing. Patient was last evaluated by ortho on 12/11/16 but there is no indication as to when rafa are to be removed and the patient still has these in place. Ortho was reconsulted to follow patient here at PO. I spoke with Dr. Lina winston who states if wound looks good, can remove rafa.Will evaluate wound tomorrow and d/c rafa if appropriate. -PT -Pain management with Percocet; will need to wean. Anemia -Secondary to blood loss due to surgery. -Status post transfusion with 2 PRBC -Responded appropriately to transfusion. -GI was consulted due to anemia. Per GI she had colonoscopy and endoscopy done 2 months ago which was normal. She had no signs of any GI bleed. GI signed off. Hypertension: -Continue Norvasc. Continue scheduled clonidine and as needed. History of seizure disorder, CVA and lupus -Continue home medication. -On Keppra 500mg BID, Dilantin 100mg BID. -Monitor dilantin level periodically. Therapeutic on 12/16/16. DVT prophylaxis with SCDs and Lovenox 30mg daily per ortho Discharge Planning PT recommends rehabilitation or short term SNF. Patient has 4 wheeled walker at home. Andra Martines Dec 21, 2016 13:39
[2016-12-21 16:35] VITALS: BP 119/76; PULSE 101; RESP 18; TEMP 97.9; O2SAT 95
[2016-12-21 20:00] VITALS: BP 104/68; PULSE 100; RESP 16; TEMP 96.6; O2SAT 94
[2016-12-21] MEDS: INSULIN GLARGINE 1,000 UNITS/10 ML VIAL SQ SCH (21:00)
[2016-12-22] MEDS: SODIUM CHLOR 0.9% 1000 ML INJ 1,000 ML IV SCH (01:34)
[2016-12-22] MEDS: cloNIDine HCL 0.1 MG TAB PO SCH ×3 (05:22→21:54)
[2016-12-22 06:00] VITALS: BP 162/75; PULSE 100; RESP 16; TEMP 97.3; O2SAT 91
[2016-12-22 06:14] LABS: POTASSIUM 4.7 MEQ/L (3.5-5.1)
[2016-12-22 06:54] LABS: BICARBONATE 25.3 MEQ/L (21.0-32.0)
[2016-12-22] MEDS: INSULIN NovoLIN REGULAR SUPPLEMENTAL SCALE SQ SCH ×4 (07:00→21:00)
[2016-12-22 07:33] LABS: CALCIUM-PROTEIN CORRECTED 7.9 MG/DL (8.5-10.1)
[2016-12-22 08:00] VITALS: BP 116/69; PULSE 95; RESP 18; TEMP 97.3; O2SAT 96
[2016-12-22] MEDS: SODIUM CHLOR 0.45% 1000 ML INJ 1,000 ML IV SCH (08:46)
[2016-12-22] MEDS: SODIUM CHLORIDE 0.9% FLUSH 10 ML FLUSH IV FLUSH SCH ×2 (08:47→21:00)
--- NOTE | 2016-12-22 11:31 | HHI.PR ---
Subjective Remarks Follow-up for right lower extremity fractures, REGAN. Patient admits to low appetite and states it started yesterday. She denies any fevers or chills, abdominal pain, nausea, vomiting, or diarrhea. She states her last bowel movement was yesterday and was normal. Denies chest pain or shortness of breath. She states sometimes she gets low appetite prior to needing a transfusion for anemia, but denies any lightheadedness, dizziness, or weakness. Objective Vitals Vital Signs Date Time Temp Pulse Resp B/P Pulse Ox O2 Delivery O2 Flow Rate FiO2 12/22/16 06:00 97.3 100 16 162/75 91 12/21/16 20:00 96.6 100 16 104/68 94 12/21/16 16:35 97.9 101 18 119/76 95 12/21/16 13:00 97.4 102 12 175/104 97 I/O 12/21/16 12/21/16 12/21/16 12/22/16 12/22/16 12/22/16 07:00 15:00 23:00 07:00 15:00 23:00 Intake Total 120 ml 380 ml 1164 ml Output Total 0 ml Balance 120 ml 380 ml 1164 ml Intake Oral 120 ml 380 ml 240 ml IV Total 924 ml Output Urine Total 0 ml # Voids 0 2 # Bowel Movements 2 0 Result Diagram: 12/21/16 0445 12/22/16 0550 Objective Remarks GENERAL: Well-developed, well-nourished patient in no apparent distress. SKIN: Warm and dry. There are 9 rafa over the distal anterior right thigh, 6 medial rafa and 4 lateral rafa over the proximal anterior right lower leg. There are 4 pairs of rafa over the medial distal right tibia. No surrounding erythema or drainage. CARDIOVASCULAR: Normal rate and regular rhythm. RESPIRATORY: No accessory muscle use. CTAB. GASTROINTESTINAL: Soft bowel sounds in the right upper quadrant. Abdomen soft, non-tender, nondistended. MUSCULOSKELETAL: No swelling of the R knee. Mildly swollen R ankle. 2+ R DP pulse. Capillary refill normal R toes. NEUROLOGICAL: Awake and alert. Normal speech. PSYCHIATRIC: Becomes anxious with discussion of staple removal. Normal insight and judgement. Procedures 12/03: IM Reymundo fixation right lower extremity Urinary Catheter: No Vascular Central Line Catheter: No A/P Problem List: (1) Fibula fracture ICD Code: S82.409A Status: Acute (2) Tibia fracture ICD Code: S82.209A Status: Acute Assessment and Plan Respiratory insufficiency: Resolved. -Most likely secondary to over sedation from narcotics. REGAN on CKD: Worse. Creatinine 2.0-->2.10, previously 1.43 on 12/08/16. Patient states she has not been eating that well; could be dehydrated. Nurse states patient has had little urine output although no retention noted clinically. -Patient had a renal ultrasound done on 09/07/16 which show medical renal disease , but no obstruction. -Patient was started on normal saline yesterday but due to mild hypernatremia and hyperchloremia today, patient was switched to 1/2 NS. Will increase rate from 84 to100 mL/hour. -Repeat am BMP. -Obtain bladder scan as needed if concern for urinary retention -Monitor intake and output T2 DM, uncontrolled: A1c 10.8 -Bedside Accu-Cheks, sliding scale insulin. BGL stable this morning at 108. -Patient is allergic to Levemir; resumed Lantus. Patient is currently refusing Lantus to avoid hypoglycemia which is reasonable as she is not eating normally. Right closed tibial fracture status post reymundo fixation on December 03. -Nonweightbearing. Patient was last evaluated by ortho on 12/11/16. -12/21: Ortho was reconsulted to follow patient here at [facility]. I spoke with Dr. Mills who states if wound looks good, can remove rafa. -12/22: Wounds to right lower extremity are appropriately closed with no signs of infection. RN instructed to remove rafa and leave open to air; if any areas open, can apply steri strips although likely unnecessary. -PT -Pain management with Percocet; will need to wean. Anemia -Secondary to blood loss due to surgery. -Status post transfusion with 2 PRBC -Responded appropriately to transfusion. -GI was consulted due to anemia. Per GI she had colonoscopy and endoscopy done 2 months ago which was normal. She had no signs of any GI bleed. GI signed off. -12/22: Hemoglobin improved to 11.2. Hypocalcemia: Protein corrected calcium 7.9, higher in November. Patient currently on calcium carbonate 500 mg every 12h but has been refusing this. She states it does not help her but I explained to her that she needs to take this especially with her right lower extremity fracture. -Will increase dose of calcium carbonate to 1000 mg q12h. -Vitamin D level ordered. Patient states she was taking vitamin D at home although this is not indicated in the med rec. Low appetite: Since yesterday. Albumin low at 1.7 (on 12/12) although this could be attributed to renal disease. 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 -Patient advised she needs to try to eat Hypertension: -Continue Norvasc. Continue scheduled clonidine and as needed. History of seizure disorder, CVA and lupus -Continue home medication. -On Keppra 500mg BID, Dilantin 100mg BID. -Monitor dilantin level periodically. Therapeutic on 12/16/16. DVT prophylaxis with SCDs and Lovenox 30mg daily per ortho Discharge Planning PT recommends rehabilitation or short term SNF. Patient has 4 wheeled walker at home. Andra Martines Dec 22, 2016 11:31
[2016-12-22] MEDS: CALCIUM CARBONATE 500 MG CHEWABLE TAB CHEW SCH ×2 (11:55→21:00)
[2016-12-22] MEDS: ATORVASTATIN 40 MG TAB PO SCH (11:56)
[2016-12-22] MEDS: PHENYTOIN SODIUM 100 MG CAP PO SCH ×2 (11:56→21:54)
[2016-12-22] MEDS: amLODIPine BESYLATE 5 MG TAB PO SCH (11:56)
[2016-12-22] MEDS: DOCUSATE SODIUM 50 MG/SENNA 8.6 MG TAB PO SCH ×2 (11:57→21:53)
[2016-12-22] MEDS: FLUoxetine HCL 10 MG CAP PO SCH (11:57)
[2016-12-22] MEDS: ENOXAPARIN SODIUM 30 MG/0.3 ML SYRINGE SQ SCH (11:57)
[2016-12-22] MEDS: levETIRAcetam 500 MG TAB PO SCH ×2 (12:05→21:53)
[2016-12-22] MEDS: oxyCODONE/ACETAMINOPHEN 5 MG/325 MG TAB PO PRN (12:05)
[2016-12-22] MEDS ORDERED: LACTOBACILLUS ACIDOPHILUS 1 GM PACKET PO SCH (13:00)
[2016-12-22] MEDS ORDERED: CLINDAMYCIN 150 MG CAP PO SCH (14:00)
[2016-12-22 16:00] VITALS: BP 119/78; PULSE 88; RESP 16; TEMP 98; O2SAT 96
[2016-12-22 20:00] VITALS: BP 128/85; PULSE 99; RESP 16; TEMP 96.9; O2SAT 96
[2016-12-22] MEDS: INSULIN GLARGINE 1,000 UNITS/10 ML VIAL SQ SCH (21:00)
[2016-12-23] VITALS: BP 117/67; PULSE 96; RESP 16; TEMP 97.4; O2SAT 96
[2016-12-23 04:00] VITALS: BP 127/71; PULSE 96; RESP 16; TEMP 96.9; O2SAT 93
[2016-12-23 06:15] LABS: POTASSIUM 4.8 MEQ/L (3.5-5.1)
[2016-12-23 06:21] LABS: BICARBONATE 22.7 MEQ/L (21.0-32.0)
[2016-12-23] MEDS: cloNIDine HCL 0.1 MG TAB PO SCH ×3 (06:46→20:55)
[2016-12-23] MEDS: INSULIN NovoLIN REGULAR SUPPLEMENTAL SCALE SQ SCH ×4 (06:49→21:00)
[2016-12-23 08:00] VITALS: BP 152/81; PULSE 94; RESP 16; TEMP 97.1; O2SAT 97
[2016-12-23] MEDS: SODIUM CHLOR 0.45% 1000 ML INJ 1,000 ML IV SCH ×2 (08:41→14:39)
[2016-12-23] MEDS: SODIUM CHLORIDE 0.9% FLUSH 10 ML FLUSH IV FLUSH SCH ×2 (09:00→21:00)
[2016-12-23] MEDS: DOCUSATE SODIUM 50 MG/SENNA 8.6 MG TAB PO SCH ×2 (09:00→20:56)
[2016-12-23] MEDS: FLUoxetine HCL 10 MG CAP PO SCH (09:01)
[2016-12-23] MEDS: ENOXAPARIN SODIUM 30 MG/0.3 ML SYRINGE SQ SCH (09:01)
[2016-12-23] MEDS: PHENYTOIN SODIUM 100 MG CAP PO SCH ×2 (09:02→20:55)
[2016-12-23] MEDS: levETIRAcetam 500 MG TAB PO SCH ×2 (09:02→20:55)
[2016-12-23] MEDS: ATORVASTATIN 40 MG TAB PO SCH (09:02)
[2016-12-23] MEDS: amLODIPine BESYLATE 5 MG TAB PO SCH (09:02)
[2016-12-23] MEDS: CALCIUM CARBONATE 500 MG CHEWABLE TAB CHEW SCH ×2 (09:03→20:56)
--- NOTE | 2016-12-23 10:20 | HHI.PR ---
Subjective Remarks Follow-up for right lower extremity fractures, REGAN. Nurse reported patient only had one void overnight. Bladder scan was done, but the patient subsequently voided 400 cc urine with 150 cc remaining in the bladder. The nurse states the patient has been holding her urine due to her leg pain. The patient again complains of low appetite which has been ongoing for a few days. She denies any fevers or chills, night sweats, lightheadedness, dizziness, weakness, headache, chest pain or shortness of breath, nausea, vomiting, diarrhea, abdominal pain, hematochezia, or melena. She asks about steroid use in order to increase appetite, but I informed the patient this is not indicated. Objective Vitals Vital Signs Date Time Temp Pulse Resp B/P Pulse Ox O2 Delivery O2 Flow Rate FiO2 12/23/16 04:00 96.9 96 16 127/71 93 12/23/16 00:00 97.4 96 16 117/67 96 12/22/16 20:00 96.9 99 16 128/85 96 12/22/16 16:00 98.0 88 16 119/78 96 I/O 12/22/16 12/22/16 12/22/16 12/23/16 12/23/16 12/23/16 07:00 15:00 23:00 07:00 15:00 23:00 Intake Total 1164 ml 220 ml 20 ml Output Total 0 ml Balance 1164 ml 220 ml 20 ml Intake Oral 240 ml 220 ml 20 ml IV Total 924 ml Output Urine Total 0 ml # Voids 1 0 # Bowel Movements 0 0 0 Result Diagram: 12/22/16 0550 12/23/16 0522 Objective Remarks GENERAL: Well-developed, well-nourished patient in no apparent distress. SKIN: Warm and dry. Wound sites to the right lower extremity are healed. No erythema. CARDIOVASCULAR: Tachycardic rate with regular rhythm. RESPIRATORY: No accessory muscle use. CTAB. GASTROINTESTINAL: Abdomen soft, non-tender, nondistended. MUSCULOSKELETAL: Trace edema R foot. Intact R DP pulse. Capillary refill normal digits of right toes. NEUROLOGICAL: Awake and alert. 5/5 upper extremity strength bilaterally. 5/5 left quadriceps strength. 4/5 dorsiflexion of the R foot with 3/5 plantar flexion of the R foot. Normal speech. PSYCHIATRIC: Soft spoken but mood and affect are normal. Procedures 12/03: IM Reymundo fixation right lower extremity Urinary Catheter: No Vascular Central Line Catheter: No A/P Problem List: (1) Acute kidney injury superimposed on chronic kidney disease ICD Code: N17.9 Status: Acute (2) Fibula fracture ICD Code: S82.409A Status: Acute (3) Tibia fracture ICD Code: S82.209A Status: Acute (4) Anemia ICD Code: D64.9 Status: Acute (5) Loss of appetite ICD Code: R63.0 Status: Acute (6) Hypocalcemia ICD Code: E83.51 Status: Acute (7) Vitamin D deficiency ICD Code: E55.9 Status: Acute Assessment and Plan Respiratory insufficiency: Resolved. -Most likely secondary to over sedation from narcotics. REGAN on CKD: REGAN improving. Creatinine 2.0-->1.90, previously 1.43 on 12/08/16. Patient states her baseline Cr is ~1.6 Patient states she has not been eating that well; likely dehydrated. -Patient had a renal ultrasound done on 09/07/16 which show medical renal disease , but no obstruction. -Patient had reduced urine output reported yesterday. She voided 400 cc this morning. Nurse states patient has been holding urine. Patient informed this can put her at risk of worsening renal function and UTI and is advised to call for assistance when she needs to urinate. -Continue IVF 1/2 NS. -Repeat am BMP. -Monitor intake and urine output -Obtain bladder scan as needed if concern for urinary retention T2 DM, uncontrolled: A1c 10.8. Currently stable. -Bedside Accu-Cheks, sliding scale insulin. -Patient is allergic to Levemir; resumed Lantus at bedtime. Patient has been refusing Lantus to avoid hypoglycemia which is reasonable as she is not eating normally. Will hold Lantus until po intake improved. BGLs are well controlled. Right closed tibial fracture status post reymundo fixation on December 03. -Nonweightbearing. Patient was last evaluated by ortho on 12/11/16. -12/21: Ortho was reconsulted to follow patient here at [facility]. I spoke with Dr. Mills who states if wound looks good, can remove rafa. -12/22: Wounds to right lower extremity are appropriately closed with no signs of infection. RN instructed to remove raaf and leave open to air. -PT -Pain management with Percocet; will need to wean. Anemia, acute on chronic: Improved. -Secondary to blood loss due to surgery. Also likely has anemia of chronic disease due to renal failure. -Status post transfusion with 2 PRBC -Responded appropriately to transfusion. -GI was consulted due to anemia. Per GI she had colonoscopy and endoscopy done 2 months ago which was normal. She had no signs of any GI bleed. GI signed off. -12/22: Hemoglobin improved to 11.2. Hypocalcemia: -Patient was initially refusing TUMS but I informed her it is necessary for fracture healing. -12/22: Calcium carbonate dose increased to 1000 mg q12h. -12/23: Patient compliant with taking medication this morning. Vitamin D deficiency: 25-OH Vitamin D level 9.4. Patient states she took Vitamin D at home, but this is not in med rec. -Start Vitamin D2 50,000 weekly for 6-8 weeks then transition to lower daily supplementation. Low appetite: Acute. Albumin low at 1.7 (on 12/12) although this could be attributed to renal disease. Patient is on Keppra and Prozac which can cause anorexia but patient has been on these for an extended period of time. No other symptoms reported. -Director [employer] consulted, evaluated patient yesterday. States patient had <50% po intake for the past 5 days. Advises a trial of Suplena oral supplement to drink QD. Continue Glucerna shakes as patient likes these. -12/23: Patient still with low appetite although states she feels like eating murphy this morning. Discussed with Dr. Caban. Will monitor po intake today. If appetite fails to improve over the next few days may need to start appetite stimulant. Hypertension: -Continue Norvasc. Continue scheduled clonidine and prn Clonidine. History of seizure disorder, CVA and lupus -Continue home medication. -On Keppra 500mg BID, Dilantin 100mg BID. -Monitor dilantin level periodically. Therapeutic on 12/16/16. DVT prophylaxis with SCDs and Lovenox 30mg daily per ortho Discharge Planning PT recommends rehabilitation. Patient has 4 wheeled walker at home. Andra Martines Dec 23, 2016 10:19
[2016-12-23] MEDS: ERGOCALCIFEROL (VIT D2) 50,000 UNIT CAP PO SCH (11:17)
[2016-12-23 13:21] VITALS: BP 127/73; PULSE 78; RESP 18; TEMP 97.6; O2SAT 96
[2016-12-23 20:00] VITALS: BP 141/73; PULSE 97; RESP 14; TEMP 98.4; O2SAT 95
[2016-12-24] VITALS: BP 126/71; PULSE 90; RESP 16; TEMP 97.3; O2SAT 94
[2016-12-24] MEDS: SODIUM CHLOR 0.45% 1000 ML INJ 1,000 ML IV SCH ×3 (00:57→18:46)
[2016-12-24 04:00] VITALS: BP 150/82; PULSE 90; RESP 16; TEMP 97.6; O2SAT 93
[2016-12-24] MEDS: cloNIDine HCL 0.1 MG TAB PO SCH ×3 (05:43→22:36)
[2016-12-24 06:01] LABS: POTASSIUM 4.6 MEQ/L (3.5-5.1)
[2016-12-24 06:04] LABS: BICARBONATE 21.5 MEQ/L (21.0-32.0)
[2016-12-24] MEDS: INSULIN NovoLIN REGULAR SUPPLEMENTAL SCALE SQ SCH ×4 (06:11→21:00)
[2016-12-24 08:00] VITALS: BP 141/84; PULSE 93; RESP 18; TEMP 97.1; O2SAT 91
[2016-12-24] MEDS: SODIUM CHLORIDE 0.9% FLUSH 10 ML FLUSH IV FLUSH SCH ×2 (09:00→21:00)
[2016-12-24] MEDS: DOCUSATE SODIUM 50 MG/SENNA 8.6 MG TAB PO SCH ×2 (09:00→21:00)
[2016-12-24] MEDS: PHENYTOIN SODIUM 100 MG CAP PO SCH ×2 (10:18→22:36)
[2016-12-24] MEDS: CALCIUM CARBONATE 500 MG CHEWABLE TAB CHEW SCH ×2 (10:18→22:36)
[2016-12-24] MEDS: FLUoxetine HCL 10 MG CAP PO SCH (10:19)
[2016-12-24] MEDS: ATORVASTATIN 40 MG TAB PO SCH (10:19)
[2016-12-24] MEDS: levETIRAcetam 500 MG TAB PO SCH ×2 (10:19→22:36)
[2016-12-24] MEDS: amLODIPine BESYLATE 5 MG TAB PO SCH (10:19)
[2016-12-24] MEDS: ENOXAPARIN SODIUM 30 MG/0.3 ML SYRINGE SQ SCH (10:20)
--- NOTE | 2016-12-24 10:29 | HHI.PR ---
Subjective Remarks Follow-up for right lower extremity fractures, REGAN, anorexia. The nurse informs me the patient appears puffy. She apparently had an infiltrated IV to the right arm a few days ago but the right arm is still swollen. The patient does tell me she had a previous stroke and curling of the right fingers is due to this. The nurse also told me the patient has had decreased urinary output. She only had 400 cc of urine output yesterday morning with another 150 cc last night. Patient again complains of low appetite. The patient denies any pain in her leg at this time. She denies any increased sadness stating her family visited yesterday. She states she is not depressed. She denies any fevers or chills, headache, chest pain, cough, shortness of breath, abdominal pain, nausea , vomiting, diarrhea, constipation, dysuria, or flank pain. She states the night nurse told her that she had yeastlike discharge, but the patient denies any pruritus or vaginal discharge and daytime nurse has no report of this. Objective Vitals Vital Signs Date Time Temp Pulse Resp B/P Pulse Ox O2 Delivery O2 Flow Rate FiO2 12/24/16 08:00 97.1 93 18 141/84 91 12/24/16 04:00 97.6 90 16 150/82 93 12/24/16 00:00 97.3 90 16 126/71 94 12/23/16 20:00 98.4 97 14 141/73 95 12/23/16 13:21 97.6 78 18 127/73 96 I/O 12/23/16 12/23/16 12/23/16 12/24/16 12/24/16 12/24/16 07:00 15:00 23:00 07:00 15:00 23:00 Intake Total 20 ml 796 ml 800 ml 1020 ml Output Total 400 ml 150 ml Balance 20 ml 396 ml 650 ml 1020 ml Intake Oral 20 ml 200 ml 220 ml IV Total 596 ml 800 ml 800 ml Output Urine Total 400 ml 150 ml # Voids 0 0 # Bowel Movements 0 0 0 1 Result Diagram: 12/22/16 0550 12/24/16 0543 Objective Remarks GENERAL: Well-developed, well-nourished patient in no apparent distress. SKIN: Warm and dry. Wound sites to the right lower extremity are healed. HEAD: Puffiness over L brow. NECK: Appears normal. CARDIOVASCULAR: Tachycardic rate with regular rhythm. RESPIRATORY: No accessory muscle use. CTAB but diminished. GASTROINTESTINAL: No audible bowel sounds. Abdomen soft, non-tender, nondistended. No suprapubic pain or distention. MUSCULOSKELETAL: Curled fingers of right hand. Swelling to the right hand and upper arm. 1+ R DP pulse. BACK: No CVA tenderness bilaterally. NEUROLOGICAL: Awake and alert. 5/5 upper extremity strength bilaterally. 5/5 Left dorsiflexion and plantar flexion. 4/5 dorsiflexion and plantar flexion of the R foot. Normal speech. PSYCHIATRIC: Soft spoken but mood and affect are normal. Procedures 12/03: IM Reymundo fixation right lower extremity Urinary Catheter: No Vascular Central Line Catheter: No A/P Problem List: (1) Urinary retention ICD Code: R33.9 Status: Acute (2) Acute kidney injury superimposed on chronic kidney disease ICD Code: N17.9 Status: Acute (3) Fibula fracture ICD Code: S82.409A Status: Acute (4) Tibia fracture ICD Code: S82.209A Status: Acute (5) Anemia ICD Code: D64.9 Status: Acute (6) Loss of appetite ICD Code: R63.0 Status: Acute (7) Hypocalcemia ICD Code: E83.51 Status: Acute (8) Vitamin D deficiency ICD Code: E55.9 Status: Acute Assessment and Plan Respiratory insufficiency: Resolved. -Most likely secondary to over sedation from narcotics. REGAN on CKD: Stable. Creatinine 2.0-->1.90 same as yesterday, previously 1.43 on 12/08/16. Patient states her baseline Cr is ~1.6 Patient states she has not been eating that well; likely dehydrated. -Patient had a renal ultrasound done on 09/07/16 which show medical renal disease , but no obstruction. -Continue IVF 1/2 NS. Increase rate to 125 mL/hr. -Repeat am BMP. -Monitor intake and urine output -New renal US today shows medical renal disease, no evidence of obstruction. It also shows trace ascites and small bilateral pleural effusions. There is concern the patient's IV fluid may be causing this. Will order chest x-ray and Echo to evaluate for CHF. If CHF indicated will discontinue fluids. Chest x-ray personally interpreted with no evidence of cardiomegaly or edema. Atelectasis over the LLL. Urinary retention: Acute. Patient only had 550 cc of urine output yesterday despite fluid resuscitation. Nurse reported this afternoon that patient voided 250 cc of urine but subsequent bladder scan showed 273 cc post void residual. -Meade catheter ordered. -UA ordered T2 DM, uncontrolled: A1c 10.8. Currently stable. -Bedside Accu-Cheks, sliding scale insulin. -Patient is allergic to Levemir; resumed Lantus at bedtime. -Lantus held as patient has not been eating. Right closed tibial fracture status post reymundo fixation on December 03. -Nonweightbearing. Patient was last evaluated by ortho on 12/11/16. -12/21: Ortho was reconsulted to follow patient here at [facility]. I spoke with Dr. Mills who states if wound looks good, can remove rafa. -12/22: Wounds to right lower extremity are appropriately closed with no signs of infection. RN instructed to remove rafa and leave open to air. -PT -Pain management with Percocet; will need to wean. 12/24: Patient has not used Percocet 10 since 12/17. Last used Percocet 5 on 12/22. Will discontinue both and make Tylenol available prn pain 1-3 and [place] 5 available prn for pain 4-10 although patient denies any pain today. Anemia, acute on chronic: Improved. -Secondary to blood loss due to surgery. Also likely has anemia of chronic disease due to renal failure. -Status post transfusion with 2 PRBC -Responded appropriately to transfusion. -GI was consulted due to anemia. Per GI she had colonoscopy and endoscopy done 2 months ago which was normal. She had no signs of any GI bleed. GI signed off. -12/22: Hemoglobin improved to 11.2. Hypocalcemia: -Patient was initially refusing TUMS but I informed her it is necessary for fracture healing. -12/22: Calcium carbonate dose increased to 1000 mg q12h. -12/23: Patient compliant with taking medication this morning. Vitamin D deficiency: 25-OH Vitamin D level 9.4. Patient states she took Vitamin D at home, but this is not in med rec. -Continue Vitamin D2 50,000 weekly for 6-8 weeks then transition to lower daily supplementation. Low appetite: Acute. Albumin low at 1.7 (on 12/12) although this could be attributed to renal disease. Patient is on Keppra and Prozac which can cause anorexia but patient has been on these for an extended period of time. No other symptoms reported. -[employer] Consultant consulted. Advises a trial of Suplena oral supplement to drink QD. Continue Glucerna shakes as patient likes these. -12/24: Diet liberalized to regular diet to give patient more options. Megace liquid started to stimulate appetite. Once eating is back to normal will put back on diabetic diet. Patient was warned if she does not eat, a feeding tube could be in her future. Hypertension: Hypertensive today likely due to IVF -Continue Norvasc. Continue scheduled clonidine and prn Clonidine. History of seizure disorder, CVA and lupus -Continue home medication. -On Keppra 500mg BID, Dilantin 100mg BID. -Monitor dilantin level periodically. Therapeutic on 12/16/16. DVT prophylaxis with SCDs and Lovenox 30mg daily per ortho. Nurse later informed me that the patient has had one episode of "gooey" stool resembling and odorous like C.diff. Although only one episode, will order C.diff testing based on this. Patient placed on isolation until test results. Nurse later informed me patient initially put out 300 cc with Meade but now only a minor amount. Will consult nephrology. Patient follows with Dr. Holly outpatient. Patient has also vomited. Patient discussed with Dr. Beal. Discharge Planning PT recommends rehabilitation. Patient has 4 wheeled walker at home. Attending Statement The exam, history, and the medical decision-making described in the above note were completed with the assistance of the mid-level provider. I reviewed and agree with the findings presented. I attest that I had a [id number] encounter with the patient on the same day, and personally performed and documented my assessment and findings in the medical record. Patient c/o abdominal pain as per RN face is puffy also reported to be oliguric reported right arm swelling decreased urine output reported loose stool vomited x1 today Patient is AAox3 clear lungs S1S2 abdomen is soft, diffuse tenderness to palpation edema in RUE puffy swelling on face especially eyelids REGAN on CKD with oliguria - Insert meade, renal us shows medical renal disease and no obstruction, strict inpuit and output. Increase rate of IV fluids. Renal consult. abdominal pain/diarrhea - check C diff PCR, contact isolation. Pain control. will give 1 dose of IV morphine. Check abdominal x ray. low appetite - start Andra Milton Dec 24, 2016 10:29 Dave Ramsay MD Dec 24, 2016 19:13
--- NOTE | 2016-12-24 13:02 | RADRPT ---
EXAM DATE/TIME: 12/24/2016 11:58 [facility] COMPARISON: No previous studies available for comparison. INDICATIONS : Right arm swelling. MEDICAL HISTORY : Hypercholesterolemia. Lupus. CVA. Kidney stones. SURGICAL HISTORY : Hysterectomy. Cholecystectomy. section. ENCOUNTER: Initial ACUITY: 1 day PAIN SCORE: 5/10 LOCATION: Right arm. FINDINGS: There is spontaneous flow documented in the brachial, basilic, cephalic, axillary, and subclavian vei ns. The vessels are compressible and augmentation response is documented. No filling defects are se en. The flow is phasic with respiration. Direction of flow in the jugular vein is caudal. CONCLUSION: Normal examination. Tr Luna MD on December 24, 2016 at 13:00 Board Certified Radiologist. This report was verified electronically.
--- NOTE | 2016-12-24 13:54 | RADRPT ---
EXAM DATE/TIME: 12/24/2016 11:53 [facility] COMPARISON: US KIDNEY/RENAL/BLADDER, September 07, 2016, 14:22. INDICATIONS : Obstruction. MEDICAL HISTORY : Hypercholesterolemia. Lupus. CVA. Kidney stones. SURGICAL HISTORY : Hysterectomy. Cholecystectomy. section. ENCOUNTER: Subsequent ACUITY: 1 day PAIN SCORE: 4/10 LOCATION: Bilateral flank MEASUREMENTS: RIGHT KIDNEY: 8.8 x 5.8 x 4.5 cm LEFT KIDNEY: 9.4 x 4.3 x 4.4 cm FINDINGS: RIGHT KIDNEY: Renal cortex is normal in thickness. There is increased echogenicity. No hydronephrosis, stone, or m ass. LEFT KIDNEY: Renal cortex is normal in thickness. There is increased echogenicity. No hydronephrosis, stone, or m ass. BLADDER: Within normal limits given the degree of distension. There is a trace amount of ascites seen within the abdomen. There is very minimal ascites seen in the left upper quadrant. CONCLUSION: 1. Increased echogenicity of the renal cortex which can be seen with underlying medical renal disease . 2. No findings to indicate renal obstruction. 3. Small bilateral effusions and a trace amount of ascites within the abdomen. Umesh Farah MD on December 24, 2016 at 13:47 Board Certified Radiologist. This report was verified electronically.
[2016-12-24] MEDS ORDERED: ACETAMINOPHEN 325 MG TAB PO PRN (14:15)
[2016-12-24 14:32] VITALS: BP 156/89; PULSE 100; RESP 16; TEMP 97.2; O2SAT 96
--- NOTE | 2016-12-24 15:35 | RADRPT ---
EXAM DATE/TIME: 12/24/2016 15:15 [facility] COMPARISON: CHEST SINGLE AP, December 04, 2016, 12:28. INDICATIONS : Shortness of breath. MEDICAL HISTORY : Hypertension. Diabetes mellitus type I. Hypercholesterolemia. Lupus. CVA. Kidney stones SURGICAL HISTORY : Hysterectomy. Cholecystectomy. section ENCOUNTER: Initial ACUITY: 1 day PAIN SCORE: 0/10 LOCATION: Bilateral chest FINDINGS: Improved aeration of the left liver with mild residual airspace disease. Cardiomediastinal contours a re within normal limits. Bony thorax is intact. CONCLUSION: 1. Improved left lower lobe aeration with mild residual airspace disease, likely atelectasis. Eriberto Madison MD on December 24, 2016 at 15:31 Board Certified Radiologist. This report was verified electronically.
[2016-12-24 16:11] LABS: BLOOD, URINE SMALL (NEG); GLUCOSE,URINE NEG (NEG); KETONE, URINE NEG (NEG); NITRITE,URINE NEG (NEG); PH, URINE 5.5 (5.0-8.5)
[2016-12-24 16:24] LABS: HYALINE CAST, URINE 0-2 /lpf (RARE); METHOD OF COLLECTION CATH; URINE COLOR YELLOW (YELLW/STRAW)
[2016-12-24 16:25] LABS: COMMENT (UR) CATH-CULT NOT IND; CULTURE IF INDICATED CATH CULTURE NOT IND; WBC, URINE 0-2 /hpf (0-5)
[2016-12-24 17:52] VITALS: BP 158/99; PULSE 116; RESP 18; TEMP 97.2; O2SAT 99
[2016-12-24] MEDS: ONDANSETRON HCL 4 MG/2 ML VIAL IVP PRN (18:38)
[2016-12-24] MEDS ORDERED: MORPHINE SULFATE 8 MG/ML INJ IV PUSH ONE (19:15)
[2016-12-24 20:58] VITALS: BP 142/79; PULSE 90; RESP 18; TEMP 98.9; O2SAT 95
[2016-12-24 21:09] LABS: C. DIFF EPI 027 PRESUMPTIVE NEGATIVE (NEGATIVE)
[2016-12-25] VITALS (12 sets, daily range): BP systolic 133–184; BP diastolic 72–101; PULSE 85–108; RESP 0–19; TEMP 95.3–98; O2SAT 94–100
[2016-12-25] MEDS: SODIUM CHLOR 0.45% 1000 ML INJ 1,000 ML IV SCH ×2 (03:02→11:30)
[2016-12-25] MEDS: ONDANSETRON HCL 4 MG/2 ML VIAL IVP PRN ×3 (04:51→16:40)
[2016-12-25] MEDS: cloNIDine HCL 0.1 MG TAB PO SCH ×3 (06:00→21:22)
[2016-12-25] MEDS: INSULIN NovoLIN REGULAR SUPPLEMENTAL SCALE SQ SCH ×2 (06:38→11:33)
[2016-12-25] MEDS: CALCIUM CARBONATE 500 MG CHEWABLE TAB CHEW SCH ×2 (09:00→21:00)
[2016-12-25] MEDS: amLODIPine BESYLATE 5 MG TAB PO SCH (09:00)
[2016-12-25] MEDS: FLUoxetine HCL 10 MG CAP PO SCH (09:00)
[2016-12-25] MEDS: MEGESTROL ACETATE SUSP 400 MG/10 ML CUP PO SCH (09:00)
[2016-12-25] MEDS: levETIRAcetam 500 MG TAB PO SCH ×2 (09:00→21:23)
[2016-12-25] MEDS: PHENYTOIN SODIUM 100 MG CAP PO SCH ×2 (09:00→21:23)
[2016-12-25] MEDS: DOCUSATE SODIUM 50 MG/SENNA 8.6 MG TAB PO SCH ×2 (09:00→21:22)
[2016-12-25] MEDS: ATORVASTATIN 40 MG TAB PO SCH (09:00)
[2016-12-25] MEDS: SODIUM CHLORIDE 0.9% FLUSH 10 ML FLUSH IV FLUSH SCH ×2 (09:00→21:25)
[2016-12-25] MEDS: ENOXAPARIN SODIUM 30 MG/0.3 ML SYRINGE SQ SCH (09:00)
[2016-12-25 09:01] LABS: HEMATOCRIT 35.9 % (35.0-46.0); MEAN CELL VOLUME 90.3 FL (80.0-100.0); MEAN CORPUSCULAR HEMOGLOBIN 30.3 PG (27.0-34.0); MEAN CORPUSCULAR HGB CONC 33.5 % (32.0-36.0); PLATELET COUNT 304 TH/MM3 (150-450); RED BLOOD COUNT 3.98 MIL/MM3 (4.00-5.30); RED CELL DISTRIBUTION WIDTH 14.3 % (11.6-17.2); WHITE BLOOD COUNT 12.5 TH/MM3 (4.0-11.0)
[2016-12-25 09:05] LABS: REVIEW FLAG FINAL
[2016-12-25 09:08] LABS: POTASSIUM 4.6 MEQ/L (3.5-5.1)
[2016-12-25 09:11] LABS: BICARBONATE 13.3 MEQ/L (21.0-32.0)
--- NOTE | 2016-12-25 09:34 | RADRPT ---
EXAM DATE/TIME: 12/25/2016 09:27 [facility] COMPARISON: ABDOMEN KUB ONLY, March 08, 2015, 18:57. INDICATIONS : Vomiting MEDICAL HISTORY : Diabetes mellitus type I. Hypertension Lupus. SURGICAL HISTORY : Cholecystectomy. Hysterectomy. section. ENCOUNTER: Subsequent ACUITY: 1 day PAIN SCORE: 5/10 LOCATION: Bilateral abdomen FINDINGS: Supine view of the abdomen was performed. The abdominal bowel gas pattern is normal. No abnormal ma sses, calcifications, or organomegaly is seen. The osseous structures are unremarkable. CONCLUSION: No acute disease. Bobby Martins MD on December 25, 2016 at 9:32 Board Certified Radiologist. This report was verified electronically.
[2016-12-25 09:54] LABS: INDIRECT BILIRUBIN 0.2 MG/DL (0.0-0.8); TOTAL BILIRUBIN ADULT 0.3 MG/DL (0.2-1.0)
--- NOTE | 2016-12-25 11:17 | HHI.PR ---
Subjective Remarks Follow-up for REGAN on CKD, oliguria, anorexia. Patient appeared in discomfort when I entered the room writhing around stating she felt like she was going to vomit and subsequently vomited what appeared to be brown water. The patient denies any abdominal pain or diarrhea. She denies any fevers or chills. She denies any headache, dizziness, lightheadedness, weakness, chest pain, shortness of breath. Denies any pain elsewhere, but then asked me if she can have pain medication available if needed. Per attending patient was given morphine last night for abdominal pain, but patient states it was for her leg pain. Objective Vitals Vital Signs Date Time Temp Pulse Resp B/P Pulse Ox O2 Delivery O2 Flow Rate FiO2 12/25/16 10:10 95.6 108 16 137/100 97 12/25/16 04:00 12/25/16 00:00 98.0 85 16 152/80 96 12/24/16 20:58 98.9 90 18 142/79 95 12/24/16 17:52 97.2 116 18 158/99 99 12/24/16 14:32 97.2 100 16 156/89 96 I/O 12/24/16 12/24/16 12/24/16 12/25/16 12/25/16 12/25/16 07:00 15:00 23:00 07:00 15:00 23:00 Intake Total 1020 ml 200 ml 1600 ml Output Total 600 ml 200 ml 125 ml 200 ml Balance 1020 ml -600 ml 0 ml 1475 ml -200 ml Intake Oral 220 ml 200 ml 100 ml IV Total 800 ml 1500 ml Output Urine Total 600 ml 200 ml 125 ml Emesis 200 ml # Voids 0 # Bowel Movements 1 1 1 0 Result Diagram: 12/25/16 0811 12/25/16 0811 Imaging Last Impressions Abdomen X-Ray 12/25/16 0857 Signed Impressions: Service Date/Time: Sunday, December 25, 2016 09:27 - CONCLUSION: No acute disease. Bobby Martins MD Upper Extremity Ultrasound 12/24/16 0000 Signed Impressions: Service Date/Time: Saturday, December 24, 2016 11:58 - CONCLUSION: Normal examination. Tr Luna MD Renal Ultrasound 12/24/16 0000 Signed Impressions: Service Date/Time: Saturday, December 24, 2016 11:53 - CONCLUSION: 1. Increased echogenicity of the renal cortex which can be seen with underlying medical renal disease. 2. No findings to indicate renal obstruction. 3. Small bilateral effusions and a trace amount of ascites within the abdomen. Umesh Farah MD Chest X-Ray 12/24/16 0000 Signed Impressions: Service Date/Time: Saturday, December 24, 2016 15:15 - CONCLUSION: 1. Improved left lower lobe aeration with mild residual airspace disease, likely atelectasis. Eriberto Madison MD Tibia/Fibula X-Ray 12/03/16 0000 Signed Impressions: Service Date/Time: Saturday, December 03, 2016 15:09 - CONCLUSION: Excellent alignment of the patient's tibial fracture post rodding. Patient has a minimally displaced fibular fracture as well. Umesh Farah MD Ankle X-Ray 12/02/16 0000 Signed Impressions: Service Date/Time: November 18:16 - CONCLUSION: 1. The ankle mortise is intact. 2. Distal tibial and fibular fractures again noted. Please see right leg report for further details. Javier Marino MD Objective Remarks GENERAL: Well-developed, well-nourished patient in mild distress appearing uncomfortable, with facial grimace writhing around in bed. SKIN: Warm and dry. Wound sites to the right lower extremity are healed. HEAD: Face appears puffy but localized swelling to L brow appears improved. CARDIOVASCULAR: Tachycardic rate with regular rhythm. RESPIRATORY: No accessory muscle use. CTAB. GASTROINTESTINAL: No audible bowel sounds. Abdomen soft, non-tender, nondistended. MUSCULOSKELETAL: Intact R DP pulse. No swelling of the right knee or lower leg. BACK: No CVA tenderness bilaterally. NEUROLOGICAL: Awake and alert. Normal speech. PSYCHIATRIC: Uncomfortable appearing affect. Procedures 12/03: IM Reymundo fixation right lower extremity Urinary Catheter: No Vascular Central Line Catheter: No A/P Problem List: (1) DKA (diabetic ketoacidoses) ICD Code: E13.10 Status: Acute (2) SIRS (systemic inflammatory response syndrome) ICD Code: R65.10 Status: Acute (3) Acute kidney injury superimposed on chronic kidney disease ICD Code: N17.9 Status: Acute (4) Urinary retention ICD Code: R33.9 Status: Acute (5) Loss of appetite ICD Code: R63.0 Status: Acute (6) Fibula fracture ICD Code: S82.409A Status: Acute (7) Tibia fracture ICD Code: S82.209A Status: Acute (8) Anemia ICD Code: D64.9 Status: Acute (9) Hypocalcemia ICD Code: E83.51 Status: Acute (10) Vitamin D deficiency ICD Code: E55.9 Status: Acute Assessment and Plan DKA: Acute. BGL starting to increase, 209 mid morning. Advised nurse to administer low dose SSI. Patient vomiting. Anion gap elevated at 24. Beta hydroxybutyrate level elevated at 13.81. -DKA protocol initiated with insulin drip. -Monitor electrolytes, anion gap -Currently NPO -Antiemetics as below -Patient transferred to ICU. SIRS: Acute. Temperature 95.6. Tachycardic at 108. WBC count 12.5. Patient has emesis. Had one "gooey" stool yesterday per nurse. -KUB ordered and personally reviewed with no acute abnormality. -UA 12/24 without infection -C.diff PCR test negative. -Lactic acid normal at 1.3 -Blood cultures x 2 pending -CT abdomen/pelvis ordered. Cannot use contrast due to creatinine. Shows anasarca, small bilateral effusions and small to moderate ascites, but no ileus , or other bowel abnormality. -Repeat am CBC with diff Emesis: Acute. Yesterday and today. Actively vomiting upon my exam today. Abdominal exam benign. Likely attributed to DKA, see above. -Lipase normal -Alkaline phosphatase elevated at 259 but no prior level on this hospitalization for comparison. -Continue Zofran IV, change to q4h. -Add Reglan, but reduce dose to 5 mg q6h IV due to reduced Cr clearance. -Diet made NPO -Currently on IVF -Repeat am CMP. REGAN on CKD: Worse. Creatinine again back up to 2.0, previously 1.43 on 12/08/16. Patient states her baseline Cr is ~1.6 Patient states she has not been eating that well; likely dehydrated. -Patient had a renal ultrasound done on 09/07/16 which show medical renal disease , but no obstruction. -New renal US 12/24 shows medical renal disease, no evidence of obstruction. It also shows trace ascites and small bilateral pleural effusions. There is concern the patient's IV fluid may be causing this. Chest x-ray shows no evidence of cardiomegaly or edema. Atelectasis over the LLL. Echo report pending. -Continue IVF 1/2 NS @ 125 mL/hr. -Follow Cr level. -Nephrology consultation pending. Urinary retention: Acute. -UA reviewed without infection. -Continue Maurer catheter. -Monitor intake and urine output, 925 cc of urine output over the past 24 hours. T2 DM, uncontrolled: A1c 10.8. -Bedside Accu-Cheks, sliding scale insulin. -Patient is allergic to Levemir; resumed Lantus at bedtime. -Lantus held as patient has not been eating. -See DKA above Low appetite: Persistent. Albumin low at 1.6 although this could be related to renal disease. Patient is on Keppra and Prozac which can cause anorexia but patient has been on these for an extended period of time. No other symptoms reported. -Stone Sawyer consulted. Advises a trial of Suplena oral supplement to drink QD. Continue Glucerna shakes as patient likes these. -12/24: Diet liberalized to regular diet to give patient more options. Megace liquid started to stimulate appetite. Once eating is back to normal will put back on diabetic diet. Patient was warned if she does not eat, a feeding tube could be in her future. -12/25: Patient has not started on Megace yet due to acute n/v. Hypertension: Recently hypertensive likely due to IVF -Continue Norvasc. Continue scheduled clonidine and prn Clonidine. Anemia, acute on chronic: Improved. -Secondary to blood loss due to surgery. Also likely has anemia of chronic disease due to renal failure. -Status post transfusion with 2 PRBC -Responded appropriately to transfusion. -GI was consulted due to anemia. Per GI she had colonoscopy and endoscopy done 2 months ago which was normal. She had no signs of any GI bleed. GI signed off. -12/25: Hemoglobin improved to 12.0. Right closed tibial fracture status post reymundo fixation on December 03. -Nonweightbearing. Patient was last evaluated by ortho on 12/11/16. -12/21: Ortho was reconsulted to follow patient here at [facility]. I spoke with Dr. Mills who states if wound looks good, can remove rafa. -12/22: Wounds to right lower extremity are appropriately closed with no signs of infection. RN instructed to remove rafa and leave open to air. -PT -Pain management with Percocet; will need to wean. 12/24: Patient has not used Percocet 10 since 12/17. Last used Percocet 5 on 12/22. Will discontinue both and make Tylenol available prn pain 1-3 and Bascom 5 available prn for pain 4-10. Respiratory insufficiency: Resolved. -Most likely secondary to over sedation from narcotics. Hypocalcemia: -Continue calcium carbonate 1000 mg q12h. Vitamin D deficiency: 25-OH Vitamin D level 9.4. Patient states she took Vitamin D at home, but this is not in med rec. -Continue Vitamin D2 50,000 weekly for 6-8 weeks then transition to lower daily supplementation. History of seizure disorder, CVA and lupus -Continue home medication. -On Keppra 500mg BID, Dilantin 100mg BID. -Therapeutic on 12/16/16. -Repeat Dilantin level tomorrow am. DVT prophylaxis with SCDs and Lovenox 30mg daily per ortho. Hold Lovenox until imaging results. Patient management discussed with Dr. Beal, attending. Critical care time greater than 35 minutes. Discharge Planning PT recommends rehabilitation. Patient has 4 wheeled walker at home. Attending Statement The exam, history, and the medical decision-making described in the above note were completed with the assistance of the mid-level provider. I reviewed and agree with the findings presented. I attest that I had a [id number] encounter with the patient on the same day, and personally performed and documented my assessment and findings in the medical record. Patient still vomiting today. Poor appetite AAOx3 Puffy face and extremities S1S2 Clear lungs Abdomen soft, nontender nondistended. Patient with nausea and vomiting, c diff negative. Ct abdomen shows anasarca. Anion gap elevated with increased beta hydroxybutyrate likely due to DKA. Transfer the patient lived. Unit and start on insulin drip protocol and monitor BMP for gap closure. History of present illness slightly worsened, nephrology consultation recommendations pending 2 may be transitioned to subcutaneous insulin once anion gap closes and patient is able to eat. Lactic acid normal. 35 minutes of critical care time spent on patient care. Andra Martines Dec 25, 2016 11:17 Dave Ramsay MD Dec 25, 2016 17:16
--- NOTE | 2016-12-25 12:36 | RADRPT ---
EXAM DATE/TIME: 12/25/2016 12:00 [facility] COMPARISON: CT ABDOMEN & PELVIS W/O CONTRAST, November 22, 2016, 6:44. INDICATIONS : Abdominal pain. Nausea, vomiting. ORAL CONTRAST: No oral contrast ingested. RADIATION DOSE: 5.92 CTDIvol (mGy) MEDICAL HISTORY : Hypertension. Cardiovascular disease Cerebrovascular disease.CVA 2013. Lupus. Renal failure. SURGICAL HISTORY : Hysterectomy. Partial hysterectomy. ENCOUNTER: Initial ACUITY: 1 day PAIN SCALE: 8/10 LOCATION: Bilateral abdomen TECHNIQUE: Volumetric scanning of the abdomen and pelvis was performed. Using automated exposure control and ad justment of the mA and/or kV according to patient size, radiation dose was kept as low as reasonably achievable to obtain optimal diagnostic quality images. DICOM format image data is available electro nically for review and comparison. FINDINGS: Generalized soft tissue edema consistent with anasarca has developed since prior study. There are new small bilateral pleural effusions and a small to moderate amount of ascites. Unenhanced evaluation of the liver, spleen, pancreas adrenal glands and kidneys are unremarkable. There is no evidence of ileus or free air. Maurer catheter is in place. CONCLUSION: Interval development of anasarca, small bilateral effusions and small to moderate ascites. No significant ileus, hydronephrosis, mass or lymphadenopathy. Status post cholecystectomy. Bobby Martins MD on December 25, 2016 at 12:29 Board Certified Radiologist. This report was verified electronically.
[2016-12-25] MEDS: METOCLOPRAMIDE HCL 10 MG/2 ML VIAL IVS PRN (13:03)
[2016-12-25] MEDS ORDERED: POTASSIUM CHLOR 20 MEQ PREMIX 100 ML IV PRN ×3 (13:45)
[2016-12-25] MEDS ORDERED: SODIUM BICARBONATE 8.4% SOLN 50 MEQ/50 ML VIAL IV PRN ×2 (13:45)
[2016-12-25] MEDS ORDERED: CHLORHEXIDINE GLUCONATE 2 % 1 PACK (2 CLOTHS) TOP PRN (13:45)
[2016-12-25] MEDS ORDERED: SODIUM PHOSPHATE INJ 15 MMOL in SODIUM CHLORIDE 0.9% INJ 100 ML IV PRN (13:45)
[2016-12-25] MEDS ORDERED: MISCELLANEOUS NURSING INFORMATION XX SCH (13:45)
[2016-12-25] MEDS ORDERED: INSULIN HUMAN REGULAR 1,000 UNITS/10 ML VIAL IV PUSH ONE (14:00)
[2016-12-25] MEDS: SODIUM CHLOR 0.9% 1000 ML INJ 1,000 ML IV SCH ×5 (14:50→21:43)
[2016-12-25] MEDS ORDERED: INSULIN REGULAR (IV INFUSION) 100 UNITS in SODIUM CHLORIDE 0.9% INJ 99 ML IV SCH (15:00)
--- NOTE | 2016-12-25 15:27 | ECHRPT ---
Indication: HEART FAILURE CONCLUSIONS Normal left ventricular size. Wall thickness is normal. The left ventricular systolic function is normal with an estimated ejection fraction in the range of 55-60%. No regional wall motion abnormalities are present. Doppler parameters are consistent with impaired left ventricular relaxtion (grade 1 diastolic dysfun ction). Structurally normal tricuspid valve. There is mild tricuspid valve regurgitation. The estimated pulmonary arterial pressure is 40 mmHg. Trivial pericardial effusion without evidence of tamponade. Left pleural effusion present. BP: 152 / 80 HR: 85 Rhythm: Sinus MEASUREMENTS (Male / Female) Normal Values Technical Quality:Fair 2D ECHO LV Diastolic Diameter PLAX 4.2 cm 4.2 - 5.9 / 3.9 - 5.3 cm LV Systolic Diameter PLAX 2.9 cm IVS Diastolic Thickness 0.8 cm 0.6 - 1.0 / 0.6 - 0.9 cm LVPW Diastolic Thickness 0.8 cm 0.6 - 1.0 / 0.6 - 0.9 cm LV Relative Wall Thickness 0.4 LVOT Diameter 1.8 cm Aortic Root Diameter 2.5 cm LA Systolic Diameter LX 1.9 cm 3.0 - 4.0 / 2.7 - 3.8 cm M-MODE AV Cusp Separation MM 1.7 cm DOPPLER AV Peak Velocity 166.0 cm/s AV Peak Gradient 11.0 mmHg AV Mean Gradient 6.0 mmHg AV Velocity Time Integral 27.8 cm LVOT Peak Velocity 88.1 cm/s LVOT Peak Gradient 3.1 mmHg LVOT Velocity Time Integral 14.6 cm LVOT Cardiac Index 1785.1 cm/minm AV Area Cont Eq vti 1.3 cm AV Area Cont Eq pk 1.4 cm Mitral E Point Velocity 57.5 cm/s Mitral A Point Velocity 60.2 cm/s Mitral E to A Ratio 1.0 LV E' Lateral Velocity 10.7 cm/s Mitral E to LV E' Lateral Ratio 5.4 LV E' Septal Velocity 8.4 cm/s Mitral E to LV E' Septal Ratio 6.9 TR Peak Velocity 274.0 cm/s TR Peak Gradient 30.0 mmHg PV Peak Velocity 76.7 cm/s PV Peak Gradient 2.4 mmHg FINDINGS LEFT VENTRICLE Normal left ventricular size. Wall thickness is normal. The left ventricular systolic function is normal with an estimated ejection fraction in the range of 55-60%. No regional wall motion abnormalities are present. Doppler parameters are consistent with impaired left ventricular relaxtion (grade 1 diastolic dysfun ction). TRICUSPID VALVE Structurally normal tricuspid valve. There is mild tricuspid valve regurgitation. The estimated pulmonary arterial pressure is 40 mmHg. PERICARDIUM Trivial pericardial effusion without evidence for tamponade. OTHER FINDINGS Left pleural effusion present Abelardo Escalante MD (Electronically Signed) Final Date:25 December 2016 15:26
[2016-12-25] MEDS: DEXT 5%-NACL 0.9% 1000 ML INJ 1,000 ML IV SCH ×3 (17:00→23:58)
[2016-12-25] MEDS ORDERED: FUROSEMIDE 40 MG/4 ML VIAL IV PUSH ONE (18:30)
--- NOTE | 2016-12-25 18:42 | PD.CONS ---
HPI Service Nephrology Consult Requested By Dr. Martines Reason for Consult Chronic kidney disease with acute renal failure Primary Care Physician Andrea Cardoso History of Present Illness Patient is a 46-year-old female with history of diabetes since age 25 who had been admitted to after a fall and fracture right tibia and fibula , she underwent the surgery on 12/03/16 patient postop course was slow recovery and developed nausea, vomiting and oliguria and creatinine is around 2 she was given hydration however the urine output did not improve and she went into diabetic ketoacidosis, patient is transferred to intensive care unit and started on IV fluids urine output remains low despite fluids she complains of facial swelling. Review of Systems Constitutional: COMPLAINS OF: Fatigue Cardiovascular: COMPLAINS OF: Lower Extremity Edema Gastrointestinal: COMPLAINS OF: Nausea, Vomiting, Anorexia Musculoskeletal: COMPLAINS OF: Joint pain Neurologic: COMPLAINS OF: Abnormal gait Psychiatric: COMPLAINS OF: Anxiety Past Family Social History Allergies: Coded Allergies: Aspirin (Verified Allergy, Severe, 12/02/16) RASH Penicillin (Verified Allergy, Severe, 12/02/16) Sulfa (Verified Allergy, Severe, 12/02/16) RASH Banana (Verified Allergy, Intermediate, Hives, 12/02/16) Adhesives (Verified Allergy, Unknown, 12/02/16) Macrobid (Unverified Allergy, Unknown, 12/02/16) Levemir (Verified Adverse Reaction, Severe, Sweats, funny feeling, mood swings, daze, 12/04/16) *MDRO Multi-Drug Resistant Organism (Unverified Adverse Reaction, Unknown , 12/02/16) MRSA 2013 MRSA PCR Screen POSITIVE on 01/22/16 & 11/09/16 Past Medical History Insulin-dependent diabetes and chronic kidney disease stage III follows with Dr. Patterson Previous admissions with DKA Hypertension Diabetic gastroparesis Lupus CVA GERD Diabetic neuropathy Reported Medications Reported Meds & Active Scripts Active Percocet (Oxycodone-Acetaminophen) 5-325 mg Tab 1 Tab PO Q4H PRN Lantus Inj (Insulin Glargine) 1,000 Unit/10 Ml Vial 10 Units SQ HS Reported Novolog Inj (Insulin Aspart) 1,000 Unit/10 Ml Vial Unknown Dose SQ ACHS Max dose at bedtime ( ) units; sugars less than 70,(0) units; sugars 150-199,(2) units; sugars 200-249,(4) units; sugars 250-299,(7) units; sugars 300-349,(10) units; sugars greater than 349,(12)units Dilantin (Phenytoin Extended) 100 Mg Cap 100 Mg PO BID Clonidine (Clonidine HCl) 0.1 Mg Tab 0.1 Mg PO DAILY Fluoxetine (Fluoxetine HCl) 10 Mg Tab 10 Mg PO DAILY Levetiracetam 500 Mg Tab 500 Mg PO BID Atorvastatin (Atorvastatin Calcium) 80 Mg Tab 80 Mg PO DAILY Active Ordered Medications Current Medications Medications (Trade) Dose Ordered Sig/Marin Route Start Time Stop Time Status Last Admin (Narcan Inj) 0.4 mg UNSCH PRN IV 12/02/16 20:00 (PROzac) 10 mg DAILY PO 12/03/16 09:00 12/24/16 10:19 (Keppra) 500 mg BID PO 12/02/16 21:00 12/24/16 22:36 (NS Flush) 2 ml UNSCH PRN IV FLUSH 12/03/16 16:00 (NS Flush) 2 ml BID IV FLUSH 12/03/16 21:00 12/21/16 10:20 Miscellaneous Information UNSCH PRN XX 12/03/16 16:00 (Ambien) 5 mg HS PRN PO 12/03/16 16:00 (Rivka-Colace) 1 tab BID PO 12/03/16 21:00 12/23/16 20:56 (Milk Of Magnesia Liq) 30 ml Q12H PRN PO 12/03/16 16:00 (Senokot) 17.2 mg Q12H PRN PO 12/03/16 16:00 (Dulcolax Supp) 10 mg DAILY PRN RECTAL 12/03/16 16:00 (Lactulose Liq) 30 ml DAILY PRN PO 12/03/16 16:00 Miscellaneous Information Patient in critical care unit? Ass... Q361D .XX 12/04/16 08:30 12/04/16 08:30 (D50w (Vial) Inj) 50 ml UNSCH PRN IV 12/05/16 09:30 12/15/16 05:33 (Glucagon Inj) 1 mg UNSCH PRN OTHER 12/05/16 09:30 (Lovenox Inj) 30 mg Q24H SQ 12/06/16 09:00 12/24/16 10:20 (Catapres) 0.1 mg Q8HR PO 12/06/16 09:45 12/25/16 13:12 (Norvasc) 5 mg DAILY PO 12/12/16 09:00 12/24/16 10:19 (Catapres) 0.1 mg Q6H PRN PO 12/11/16 13:30 (Dilantin) 200 mg BID PO 12/12/16 21:00 12/24/16 22:36 (Lantus Inj) 6 units HS SQ 12/15/16 21:00 Hold (Lipitor) 80 mg DAILY PO 12/21/16 09:00 12/24/16 10:19 (Tums Chew) 1,000 mg Q12HR CHEW 12/22/16 21:00 12/24/16 22:36 (Drisdol) 50,000 units Q7D PO 12/23/16 09:00 12/23/16 11:17 (Tylenol) 650 mg Q6H PRN PO 12/24/16 14:15 ([place] 5-325 Mg) 1 tab Q6H PRN PO 12/24/16 14:15 (Megace Liq) 400 mg DAILY PO 12/25/16 09:00 (Zofran Inj) 4 mg Q4H PRN IVP 12/25/16 09:00 12/25/16 16:40 Metoclopramide HCl 5 mg 5 mg Q6H PRN IVS 12/25/16 11:30 12/25/16 13:03 Sodium Chloride 1,000 ml @ 250 mls/hr Q4H IV 12/25/16 13:43 12/25/16 14:50 Dextrose/Sodium Chloride 1,000 ml @ 200 mls/hr Q5H IV 12/25/16 13:43 12/25/16 17:00 Insulin Human Regular 100 units/ Sodium Chloride 100 ml @ 0 mls/hr TITRATE IV 12/25/16 15:00 12/25/16 15:38 Potassium Chloride 100 ml @ 50 mls/hr Q2H PRN IV 12/25/16 13:45 Potassium Chloride 100 ml @ 50 mls/hr Q2H PRN IV 12/25/16 13:45 Potassium Chloride 100 ml @ 50 mls/hr Q2H PRN IV 12/25/16 13:45 (KCl 20 Meq Premix Inj) 100 ml @ 50 mls/hr Q2H PRN IV 12/25/16 13:45 12/25/16 15:41 (Sodium Bicarbonate 8.4% Inj) 100 meq UNSCH PRN IV 12/25/16 13:45 Sodium Bicarbonate 50 meq 50 meq UNSCH PRN IV 12/25/16 13:45 (Sodium Phosphate Inj/NS Inj) 105 ml @ 25 mls/hr UNSCH PRN IV 12/25/16 13:45 Miscellaneous Information 1 Q361D XX 12/25/16 13:45 (Chlorhexidine 2% Cloth) 3 pack Taper DAILY@04 TOP 12/26/16 04:00 12/22/17 03:59 (Chlorhexidine 2% Cloth) 3 pack UNSCH PRN TOP 12/25/16 13:45 Family History Noncontributory Social History Denies smoking or alcohol use Physical Exam Vital Signs Vital Signs Date Time Temp Pulse Resp B/P Pulse Ox O2 Delivery O2 Flow Rate FiO2 12/25/16 16:00 97.5 106 13 133/82 96 12/25/16 15:00 106 12/25/16 14:50 97.8 106 15 169/101 96 12/25/16 12:45 95.3 108 16 184/96 100 12/25/16 10:10 95.6 108 16 137/100 97 12/25/16 04:00 12/25/16 00:00 98.0 85 16 152/80 96 12/24/16 20:58 98.9 90 18 142/79 95 Physical Exam GENERAL: Well-nourished, well-developed patient. SKIN: Warm and dry. HEAD: Normocephalic. EYES: No scleral icterus. She has periorbital swelling NECK: Supple, trachea midline. No JVD or lymphadenopathy. CARDIOVASCULAR: Regular rate and rhythm without murmurs, gallops, or rubs. RESPIRATORY: Breath sounds equal bilaterally. No accessory muscle use. GASTROINTESTINAL: Abdomen soft, non-tender, nondistended. EXTREMITIES: No cyanosis, upper extremity edema. NEUROLOGICAL: Awake, alert, and oriented x 3. Non-focal. Laboratory Laboratory Tests Test 12/25/16 12/25/16 08:11 12:02 White Blood Count 12.5 Red Blood Count 3.98 Hemoglobin 12.0 Hematocrit 35.9 Mean Corpuscular Volume 90.3 Mean Corpuscular Hemoglobin 30.3 Mean Corpuscular Hemoglobin 33.5 Concent Red Cell Distribution Width 14.3 Platelet Count 304 Mean Platelet Volume 10.7 Sodium Level 139 Potassium Level 4.6 Chloride Level 102 Carbon Dioxide Level 13.3 Anion Gap 24 Blood Urea Nitrogen 19 Creatinine 2.00 Estimat Glomerular Filtration 32 Rate Random Glucose 170 Calcium Level 8.2 Total Bilirubin 0.3 Direct Bilirubin 0.1 Indirect Bilirubin 0.2 Aspartate Amino Transf 15 (AST/SGOT) Alanine Aminotransferase 11 (ALT/SGPT) Alkaline Phosphatase 259 Total Protein 5.8 Albumin 1.6 Lipase 276 Lactic Acid Level 1.3 B-Hydroxybutyrate 13.81 Date/Time Procedure Status Source Growth 12/25/16 12:02 Aerobic Blood Culture Received Blood Peripheral Pending 12/25/16 12:02 Anaerobic Blood Culture Received Blood Peripheral Pending Result Diagram: 12/25/16 0811 12/25/16 0811 Imaging Last Impressions Abdomen/Pelvis CT 12/25/16 1100 Signed Impressions: Service Date/Time: Sunday, December 25, 2016 12:00 - CONCLUSION: Interval development of anasarca, small bilateral effusions and small to moderate ascites. No significant ileus, hydronephrosis, mass or lymphadenopathy. Status post cholecystectomy. Bobby Martins MD Abdomen X-Ray 12/25/16 0857 Signed Impressions: Service Date/Time: Sunday, December 25, 2016 09:27 - CONCLUSION: No acute disease. Bobby Martins MD Upper Extremity Ultrasound 12/24/16 0000 Signed Impressions: Service Date/Time: Saturday, December 24, 2016 11:58 - CONCLUSION: Normal examination. Tr Luna MD Renal Ultrasound 12/24/16 0000 Signed Impressions: Service Date/Time: Saturday, December 24, 2016 11:53 - CONCLUSION: 1. Increased echogenicity of the renal cortex which can be seen with underlying medical renal disease. 2. No findings to indicate renal obstruction. 3. Small bilateral effusions and a trace amount of ascites within the abdomen. Umesh Farah MD Chest X-Ray 12/24/16 0000 Signed Impressions: Service Date/Time: Saturday, December 24, 2016 15:15 - CONCLUSION: 1. Improved left lower lobe aeration with mild residual airspace disease, likely atelectasis. Eriberto Madison MD Tibia/Fibula X-Ray 12/03/16 0000 Signed Impressions: Service Date/Time: Saturday, December 03, 2016 15:09 - CONCLUSION: Excellent alignment of the patient's tibial fracture post rodding. Patient has a minimally displaced fibular fracture as well. Umesh Farah MD Ankle X-Ray 12/02/16 0000 Signed Impressions: Service Date/Time: November 18:16 - CONCLUSION: 1. The ankle mortise is intact. 2. Distal tibial and fibular fractures again noted. Please see right leg report for further details. Javier Marino MD Assessment and Plan Problem List: (1) Acute kidney failure Plan: She is rehydrated her albumin is low I will give her albumin 25 g and 1 dose of Lasix can be given Continue to hydrate her and follow urine output is a slow Follow BMP Avoid nephrotoxins Avoid contrast studies or gadolinium She follows with nephrology Dr. Patterson (2) CKD (chronic kidney disease), stage III Plan: Due to diabetic nephropathy (3) DKA (diabetic ketoacidoses) Plan: Getting treatment insulin and IV fluids Problem Qualifiers (1) DKA (diabetic ketoacidoses): Roby Stafford MD Dec 25, 2016 18:42
[2016-12-25] MEDS: ACETAMINOPHEN/HYDROcodone 325 MG/5 MG TAB PO PRN (19:00)
[2016-12-25] MEDS: ALBUMIN HUMAN 25% 25 GM/100 ML BAGP IV SCH (21:24)
[2016-12-25 21:34] LABS: POTASSIUM 4.2 MEQ/L (3.5-5.1)
[2016-12-25 21:38] LABS: BICARBONATE 17.2 MEQ/L (21.0-32.0); MAGNESIUM 1.7 MG/DL (1.5-2.5)
[2016-12-25] MEDS: POTASSIUM CHLOR 20 MEQ PREMIX 100 ML IV PRN (22:36)
[2016-12-26] VITALS (32 sets, daily range): BP systolic 97–191; BP diastolic 56–96; PULSE 92–118; RESP 10–16; TEMP 97.5–98.9; O2SAT 91–99
[2016-12-26] MEDS: POTASSIUM CHLOR 20 MEQ PREMIX 100 ML IV PRN (00:41)
[2016-12-26 03:24] LABS: BICARBONATE 21.3 MEQ/L (21.0-32.0); MAGNESIUM 1.5 MG/DL (1.5-2.5)
[2016-12-26 03:28] LABS: BETA-HYDROXYBUTYRATE 2.39 MMOL/L (0.00-0.39)
[2016-12-26] MEDS ORDERED: CHLORHEXIDINE GLUCONATE 2 % 1 PACK (2 CLOTHS) TOP SCH (04:00)
[2016-12-26] MEDS ORDERED: MAGNESIUM SULFATE 1 GM PREMIX 100 ML IV ONE (04:30)
[2016-12-26] MEDS ORDERED: DEXTROSE 50% IN WATER 50 ML VIAL(D50) IV PRN (04:30)
[2016-12-26] MEDS ORDERED: GLUCAGON 1 MG/ML VIAL OTHER PRN (04:30)
[2016-12-26] MEDS ORDERED: INSULIN GLARGINE 1,000 UNITS/10 ML VIAL SQ SCH (04:30)
[2016-12-26] MEDS: cloNIDine HCL 0.1 MG TAB PO SCH ×3 (04:53→22:51)
[2016-12-26 06:34] LABS: AUTOMATED NEUTROPHIL # 10.6 TH/MM3 (1.8-7.7); BASOPHIL # 0.7 TH/MM3 (0-0.2); BASOPHIL % 5.2 % (0.0-2.0); EOSINOPHIL # 0.1 TH/MM3 (0-0.4); EOSINOPHIL % 0.4 % (0.0-4.0); HEMATOCRIT 29.6 % (35.0-46.0); LYMPH % 6.2 % (9.0-44.0); LYMPHOCYTE # 0.8 TH/MM3 (1.0-4.8); MEAN CELL VOLUME 90.2 FL (80.0-100.0); MEAN CORPUSCULAR HEMOGLOBIN 29.4 PG (27.0-34.0); MEAN CORPUSCULAR HGB CONC 32.6 % (32.0-36.0); MONO % 7.1 % (0.0-8.0); NEUT % 81.1 % (16.0-70.0); PLATELET COUNT 243 TH/MM3 (150-450); RED BLOOD COUNT 3.28 MIL/MM3 (4.00-5.30); RED CELL DISTRIBUTION WIDTH 14.1 % (11.6-17.2); WHITE BLOOD COUNT 13.1 TH/MM3 (4.0-11.0)
[2016-12-26 06:39] LABS: HEMO FLAGS AUTO DIFF
[2016-12-26 07:27] LABS: BANDS 2 % (0-6); EOSINOPHILS 1 % (0-4); NEUTROPHIL # MANUAL DIFF 11.8 TH/MM3 (1.8-7.7); POLYS (SEG NEUTROPHILS) 88 % (16-70); SCAN/DIFF FINAL DIFF MANUAL; WBC DIFF SAMPLE 100
[2016-12-26] MEDS: INSULIN GLARGINE 1,000 UNITS/10 ML VIAL SQ SCH ×2 (07:57→21:00)
[2016-12-26] MEDS: INSULIN ASPART SUPPLEMENTAL SCALE SQ SCH ×4 (08:13→21:00)
[2016-12-26] MEDS: ALBUMIN HUMAN 25% 25 GM/100 ML BAGP IV SCH ×2 (08:14→22:53)
[2016-12-26] MEDS: DOCUSATE SODIUM 50 MG/SENNA 8.6 MG TAB PO SCH ×3 (09:00→21:00)
[2016-12-26] MEDS: ATORVASTATIN 40 MG TAB PO SCH ×2 (09:00→10:23)
[2016-12-26] MEDS: FLUoxetine HCL 10 MG CAP PO SCH ×2 (09:00→10:22)
[2016-12-26] MEDS: MEGESTROL ACETATE SUSP 400 MG/10 ML CUP PO SCH ×2 (09:00→10:22)
[2016-12-26] MEDS: CALCIUM CARBONATE 500 MG CHEWABLE TAB CHEW SCH ×3 (09:00→22:54)
[2016-12-26] MEDS: ONDANSETRON HCL 4 MG/2 ML VIAL IVP PRN (10:14)
[2016-12-26] MEDS: METOCLOPRAMIDE HCL 10 MG/2 ML VIAL IVS PRN (10:14)
[2016-12-26] MEDS: SODIUM CHLORIDE 0.9% FLUSH 10 ML FLUSH IV FLUSH SCH ×2 (10:14→21:00)
[2016-12-26] MEDS: cloNIDine HCL 0.1 MG TAB PO PRN (10:15)
[2016-12-26] MEDS: PHENYTOIN SODIUM 100 MG CAP PO SCH ×2 (10:21→22:52)
[2016-12-26] MEDS: ENOXAPARIN SODIUM 30 MG/0.3 ML SYRINGE SQ SCH (10:21)
[2016-12-26] MEDS: amLODIPine BESYLATE 5 MG TAB PO SCH (10:22)
[2016-12-26] MEDS: levETIRAcetam 500 MG TAB PO SCH ×2 (10:23→22:52)
[2016-12-26] MEDS: hydrALAZINE HCL 20 MG/ML VIAL IV PRN ×2 (11:20→18:39)
[2016-12-26 12:10] LABS: CHLORIDE 111 MEQ/L (98-107); POTASSIUM 4.7 MEQ/L (3.5-5.1); SODIUM (NA) 140 MEQ/L (136-145)
[2016-12-26 12:14] LABS: ANION GAP 8 MEQ/L (5-15); BICARBONATE 21.2 MEQ/L (21.0-32.0); BLOOD UREA NITROGEN 20 MG/DL (7-18); MAGNESIUM 1.8 MG/DL (1.5-2.5)
[2016-12-26 12:17] LABS: ALT (GPT) 8 U/L (10-53); AST (GOT) 10 U/L (15-37); GLOMERULAR FILTRATION RATE 30 ML/MIN (>89)
[2016-12-26 12:18] LABS: TOTAL BILIRUBIN ADULT 0.2 MG/DL (0.2-1.0)
[2016-12-26 12:20] LABS: ALKALINE PHOSPHATASE 175 U/L (45-117)
--- NOTE | 2016-12-26 14:11 | HHI.PR ---
Subjective Remarks Patient seen and examined in [facility] [place] She is somnolent today but arousable to verbal stimuli able to follows simple command I discussed with the nurse she did not have any narcotic or lorazepam I ordered a stat BMP and Accu-Chek to make sure she is not back into DKA, blood glucose 1 in the 180 Objective Vitals Vital Signs Date Time Temp Pulse Resp B/P Pulse Ox O2 Delivery O2 Flow Rate FiO2 12/26/16 14:00 118 15 172/88 93 12/26/16 13:30 96 14 146/76 92 12/26/16 13:00 96 13 110/57 92 12/26/16 12:30 108 15 145/77 92 12/26/16 12:15 104 13 146/73 93 12/26/16 12:00 97.9 98 15 108/60 93 12/26/16 11:45 106 14 151/72 93 12/26/16 11:30 104 14 146/77 94 12/26/16 11:15 106 14 155/81 93 12/26/16 11:00 106 11 164/88 94 12/26/16 10:45 108 11 177/88 94 12/26/16 10:30 112 12 180/91 94 12/26/16 10:25 116 11 191/96 93 12/26/16 10:16 112 12 184/93 93 12/26/16 10:08 112 13 180/89 93 12/26/16 10:01 112 12 183/91 93 12/26/16 10:00 110 14 179/90 97 12/26/16 09:00 96 16 142/73 98 12/26/16 08:00 98.0 100 13 152/74 97 12/26/16 07:00 92 16 106/60 98 12/26/16 04:00 102 11 166/83 97 12/26/16 00:00 97.5 104 14 135/68 91 12/25/16 23:00 106 12/25/16 22:00 100 13 144/72 94 12/25/16 21:04 102 19 148/74 96 12/25/16 20:00 97.7 104 9 168/83 98 12/25/16 20:00 12 12/25/16 19:54 102 0 159/84 96 12/25/16 19:51 102 4 166/86 97 12/25/16 16:00 97.5 106 13 133/82 96 12/25/16 15:00 106 12/25/16 14:50 97.8 106 15 169/101 96 I/O 12/25/16 12/25/16 12/25/16 12/26/16 12/26/16 12/26/16 06:59 14:59 22:59 06:59 14:59 22:59 Intake Total 1600 ml 652 ml 625 ml 1394 ml Output Total 125 ml 400 ml 350 ml 225 ml Balance 1475 ml 252 ml 275 ml 1169 ml Intake Oral 100 ml 100 ml 400 ml IV Total 1500 ml 552 ml 225 ml 1394 ml Output Urine Total 125 ml 200 ml 350 ml 225 ml Emesis 200 ml # Bowel Movements 0 1 0 0 Result Diagram: 12/26/16 0608 12/26/16 1147 Imaging Last Impressions Abdomen/Pelvis CT 12/25/16 1100 Signed Impressions: Service Date/Time: Sunday, December 25, 2016 12:00 - CONCLUSION: Interval development of anasarca, small bilateral effusions and small to moderate ascites. No significant ileus, hydronephrosis, mass or lymphadenopathy. Status post cholecystectomy. Bobby Martins MD Abdomen X-Ray 12/25/16 0857 Signed Impressions: Service Date/Time: Sunday, December 25, 2016 09:27 - CONCLUSION: No acute disease. Bobby Martins MD Upper Extremity Ultrasound 12/24/16 0000 Signed Impressions: Service Date/Time: Saturday, December 24, 2016 11:58 - CONCLUSION: Normal examination. K. Richar Luna MD Renal Ultrasound 12/24/16 0000 Signed Impressions: Service Date/Time: Saturday, December 24, 2016 11:53 - CONCLUSION: 1. Increased echogenicity of the renal cortex which can be seen with underlying medical renal disease. 2. No findings to indicate renal obstruction. 3. Small bilateral effusions and a trace amount of ascites within the abdomen. Umesh Farah MD Chest X-Ray 12/24/16 0000 Signed Impressions: Service Date/Time: Saturday, December 24, 2016 15:15 - CONCLUSION: 1. Improved left lower lobe aeration with mild residual airspace disease, likely atelectasis. Eriberto Madison MD Tibia/Fibula X-Ray 6/23/17 0000 Signed Impressions: Service Date/Time: Saturday, December 03, 2016 15:09 - CONCLUSION: Excellent alignment of the patient's tibial fracture post rodding. Patient has a minimally displaced fibular fracture as well. Umesh Farah MD Ankle X-Ray 12/02/16 0000 Signed Impressions: Service Date/Time: November 18:16 - CONCLUSION: 1. The ankle mortise is intact. 2. Distal tibial and fibular fractures again noted. Please see right leg report for further details. Javier Marino MD Objective Remarks - GENERAL: This is a well-nourished, well-developed patient, somnolent in no apparent distress. SKIN: No rashes, warm and dry HEAD: Atraumatic. Normocephalic. EYES: Pupils equal round and reactive. Extraocular motions intact. No scleral icterus. ENT: Nose without bleeding, or drainage, Airway patent. NECK: Trachea midline. Supple CARDIOVASCULAR: Regular rate and rhythm without murmurs, gallops, or rubs. RESPIRATORY: Fair air entry bilaterally. No wheezes, rales, or rhonchi. GASTROINTESTINAL: Abdomen soft, non-tender, nondistended. Positive bowel sounds MUSCULOSKELETAL: Extremities without clubbing, cyanosis, or edema. Pedal pulses appreciated NEUROLOGICAL: Somnolent but able to Moves all extremity. Procedures 12/03: IM Remyundo fixation right lower extremity A/P Problem List: (1) DKA (diabetic ketoacidoses) ICD Code: E13.10 Status: Acute (2) SIRS (systemic inflammatory response syndrome) ICD Code: R65.10 Status: Acute (3) Acute kidney injury superimposed on chronic kidney disease ICD Code: N17.9 Status: Acute (4) Urinary retention ICD Code: R33.9 Status: Acute (5) Loss of appetite ICD Code: R63.0 Status: Acute (6) Fibula fracture ICD Code: S82.409A Status: Acute (7) Tibia fracture ICD Code: S82.209A Status: Acute (8) Anemia ICD Code: D64.9 Status: Acute (9) Hypocalcemia ICD Code: E83.51 Status: Acute (10) Vitamin D deficiency ICD Code: E55.9 Status: Acute Assessment and Plan Acute DKA: Resolved Anion gap closed, patient started on Lantus 6 units daily at bedtime, Accu-Chek with insulin sliding scale -DKA protocol stopped along with insulin drip -Repeated BMP today showed closed anion gap 8 -Start diabetic diet -Monitor in ICU for now Suspected SIRS but it was ruled out: Acute. Temperature 95.6. Tachycardic at 108. WBC count 12.5. Nausea/vomiting -KUB ordered and personally reviewed with no acute abnormality. -UA 12/24 without infection -C.diff PCR test negative. -Lactic acid normal at 1.3 -Blood cultures x 2 [address] -CT abdomen/pelvis ordered. Cannot use contrast due to creatinine. Shows anasarca, small bilateral effusions and small to moderate ascites, but no ileus , or other bowel abnormality. -Repeat am CBC with diff REGAN on CKD: Worse. Creatinine again back up to 2.0, previously 1.43 on 12/08/16. Patient states her baseline Cr is ~1.6 Patient states she has not been eating that well; likely dehydrated. -Patient had a renal ultrasound done on 09/07/16 which show medical renal disease , but no obstruction. -New renal US 12/24 shows medical renal disease, no evidence of obstruction. It also shows trace ascites and small bilateral pleural effusions. There is concern the patient's IV fluid may be causing this. Chest x-ray shows no evidence of cardiomegaly or edema. Atelectasis over the LLL. Echo report pending. -Continue IVF 1/2 NS @ 125 mL/hr. -Follow Cr level. -Nephrology consultation pending. Urinary retention: Acute. -UA reviewed without infection. -Continue Maurer catheter. -Monitor intake and urine output, 925 cc of urine output over the past 24 hours. T2 DM, uncontrolled: A1c 10.8. -Bedside Accu-Cheks, sliding scale insulin. -Patient is allergic to Levemir; resumed Lantus at bedtime. -Lantus held as patient has not been eating. -See DKA above Low appetite: Persistent. Albumin low at 1.6 although this could be related to renal disease. Patient is on Keppra and Prozac which can cause anorexia but patient has been on these for an extended period of time. No other symptoms reported. -Household Appliance Installer consulted. Advises a trial of Suplena oral supplement to drink QD. Continue Glucerna shakes as patient likes these. -12/24: Diet liberalized to regular diet to give patient more options. Megace liquid started to stimulate appetite. Once eating is back to normal will put back on diabetic diet. Patient was warned if she does not eat, a feeding tube could be in her future. -12/25: Patient has not started on Megace yet due to acute n/v. Hypertension: Recently hypertensive likely due to IVF -Continue Norvasc. Continue scheduled clonidine and prn Clonidine. Anemia, acute on chronic: Improved. -Secondary to blood loss due to surgery. Also likely has anemia of chronic disease due to renal failure. -Status post transfusion with 2 PRBC -Responded appropriately to transfusion. -GI was consulted due to anemia. Per GI she had colonoscopy and endoscopy done 2 months ago which was normal. She had no signs of any GI bleed. GI signed off. -12/25: Hemoglobin improved to 12.0. Right closed tibial fracture status post reymundo fixation on December 03. -Nonweightbearing. Patient was last evaluated by ortho on 12/11/16. -12/21: Ortho was reconsulted to follow patient here at [facility]. I spoke with Dr. Mills who states if wound looks good, can remove rafa. -12/22: Wounds to right lower extremity are appropriately closed with no signs of infection. RN instructed to remove rafa and leave open to air. -PT -Pain management with Percocet; will need to wean. 12/24: Patient has not used Percocet 10 since 12/17. Last used Percocet 5 on 12/22. Will discontinue both and make Tylenol available prn pain 1-3 and [place] 5 available prn for pain 4-10. Respiratory insufficiency: Resolved. -Most likely secondary to over sedation from narcotics. Hypocalcemia: -Continue calcium carbonate 1000 mg q12h. Vitamin D deficiency: 25-OH Vitamin D level 9.4. Patient states she took Vitamin D at home, but this is not in med rec. -Continue Vitamin D2 50,000 weekly for 6-8 weeks then transition to lower daily supplementation. History of seizure disorder, CVA and lupus -Continue home medication. -On Keppra 500mg BID, Dilantin 100mg BID. -Therapeutic on 12/16/16. -Repeat Dilantin level tomorrow am. DVT prophylaxis with SCDs and Lovenox 30mg daily per ortho. Hold Lovenox until imaging results. Problem Qualifiers (1) DKA (diabetic ketoacidoses): Keshav Jenkins MD Dec 26, 2016 14:11
[2016-12-26] MEDS ORDERED: SODIUM CHLOR 0.9% 1000 ML INJ 1,000 ML IV ONE (14:15)
--- NOTE | 2016-12-26 18:05 | HHI.NPPN ---
Subjective History of Present Illness Hx of rt ankle fracture, had DKA , CKD Review of Systems General Constitutional: Fatigue Objective Data Data 12/25/16 12/26/16 19:00 07:00 Intake Total 652 ml 2019 ml Output Total 400 ml 575 ml Balance 252 ml 1444 ml Intake Oral 100 ml 400 ml IV Total 552 ml 1619 ml Output Urine Total 200 ml 575 ml Emesis 200 ml # Bowel Movements 1 0 Vital Signs Date Time Temp Pulse Resp B/P Pulse Ox O2 Delivery O2 Flow Rate FiO2 12/26/16 17:00 100 16 115/58 96 12/26/16 16:00 110 12 171/87 98 12/26/16 15:00 94 12 168/79 92 12/26/16 14:00 118 15 172/88 93 12/26/16 13:30 96 14 146/76 92 12/26/16 13:00 96 13 110/57 92 12/26/16 12:30 108 15 145/77 92 12/26/16 12:15 104 13 146/73 93 12/26/16 12:00 97.9 98 15 108/60 93 12/26/16 11:45 106 14 151/72 93 12/26/16 11:30 104 14 146/77 94 12/26/16 11:15 106 14 155/81 93 12/26/16 11:00 93 21 12/26/16 11:00 106 11 164/88 94 12/26/16 10:45 108 11 177/88 94 12/26/16 10:30 112 12 180/91 94 12/26/16 10:25 116 11 191/96 93 12/26/16 10:16 112 12 184/93 93 12/26/16 10:08 112 13 180/89 93 12/26/16 10:01 112 12 183/91 93 12/26/16 10:00 110 14 179/90 97 12/26/16 09:00 96 16 142/73 98 12/26/16 08:00 98.0 100 13 152/74 97 12/26/16 07:00 92 16 106/60 98 12/26/16 04:00 102 11 166/83 97 12/26/16 00:00 97.5 104 14 135/68 91 12/25/16 23:00 106 12/25/16 22:00 100 13 144/72 94 12/25/16 21:04 102 19 148/74 96 12/25/16 20:00 97.7 104 9 168/83 98 12/25/16 20:00 12 12/25/16 19:54 102 0 159/84 96 12/25/16 19:51 102 4 166/86 97 -: 12/26/16 0608 12/26/16 1147 Microbiology 12/25/16 Aerobic Blood Culture - Preliminary, Resulted NO GROWTH IN 1 DAY 12/25/16 Anaerobic Blood Culture - Preliminary, Resulted NO GROWTH IN 1 DAY Physical Exam General Appearance: Well Developed Neck Neck Exam: Neck Supple Pulmonary Resp Exam: Decreased Bases Cardiology CV Exam: Regular Gastrointestinal/Abdomen GI Exam: Soft, Bowel Sounds Present Extremeties Extremities Exam: Trace Edema Neurologic Neuro Exam: Alert Assessment/Plan Problem List: (1) Acute kidney failure Plan: She is rehydrated her albumin is low I will give her albumin 25 g OFF IVF and follow urine output is a low give another Lasix Follow BMP Avoid nephrotoxins Avoid contrast studies or gadolinium She follows with nephrology Dr. Patterson (2) CKD (chronic kidney disease), stage III Plan: Due to diabetic nephropathy (3) DKA (diabetic ketoacidoses) Plan: Getting treatment insulin and IV fluids Problem Qualifiers (1) DKA (diabetic ketoacidoses): Roby Stafford MD Dec 26, 2016 18:05
[2016-12-26 18:15] LABS: POTASSIUM 4.6 MEQ/L (3.5-5.1)
[2016-12-26] MEDS ORDERED: FUROSEMIDE 40 MG/4 ML VIAL IV PUSH ONE (18:15)
[2016-12-27] VITALS (21 sets, daily range): BP systolic 134–185; BP diastolic 81–103; PULSE 78–108; RESP 4–14; TEMP 98.1–98.5; O2SAT 89–100
[2016-12-27] MEDS: cloNIDine HCL 0.1 MG TAB PO PRN (04:20)
[2016-12-27] MEDS: ONDANSETRON HCL 4 MG/2 ML VIAL IVP PRN (04:53)
[2016-12-27] MEDS: cloNIDine HCL 0.1 MG TAB PO SCH ×3 (06:31→22:32)
[2016-12-27] MEDS: INSULIN ASPART SUPPLEMENTAL SCALE SQ SCH ×4 (06:31→22:54)
[2016-12-27 08:21] LABS: AUTOMATED NEUTROPHIL # 6.6 TH/MM3 (1.8-7.7); BASOPHIL # 0.3 TH/MM3 (0-0.2); BASOPHIL % 3.6 % (0.0-2.0); EOSINOPHIL # 0.2 TH/MM3 (0-0.4); EOSINOPHIL % 1.8 % (0.0-4.0); HEMATOCRIT 27.8 % (35.0-46.0); HEMO FLAGS DIFF FINAL; LYMPH % 14.6 % (9.0-44.0); LYMPHOCYTE # 1.3 TH/MM3 (1.0-4.8); MEAN CELL VOLUME 90.6 FL (80.0-100.0); MEAN CORPUSCULAR HEMOGLOBIN 30.2 PG (27.0-34.0); MEAN CORPUSCULAR HGB CONC 33.4 % (32.0-36.0); MONO % 5.9 % (0.0-8.0); NEUT % 74.1 % (16.0-70.0); PLATELET COUNT 192 TH/MM3 (150-450); RED BLOOD COUNT 3.07 MIL/MM3 (4.00-5.30); RED CELL DISTRIBUTION WIDTH 14.2 % (11.6-17.2); WHITE BLOOD COUNT 8.9 TH/MM3 (4.0-11.0)
[2016-12-27 08:26] LABS: POTASSIUM 4.5 MEQ/L (3.5-5.1)
[2016-12-27 08:30] LABS: BICARBONATE 30.2 MEQ/L (21.0-32.0)
[2016-12-27] MEDS: SODIUM CHLORIDE 0.9% FLUSH 10 ML FLUSH IV FLUSH SCH ×2 (09:00→22:33)
[2016-12-27] MEDS: ALBUMIN HUMAN 25% 25 GM/100 ML BAGP IV SCH ×2 (10:03→21:49)
[2016-12-27] MEDS: MEGESTROL ACETATE SUSP 400 MG/10 ML CUP PO SCH (10:03)
[2016-12-27] MEDS: amLODIPine BESYLATE 5 MG TAB PO SCH (10:04)
[2016-12-27] MEDS: CALCIUM CARBONATE 500 MG CHEWABLE TAB CHEW SCH ×3 (10:04→22:33)
[2016-12-27] MEDS: DOCUSATE SODIUM 50 MG/SENNA 8.6 MG TAB PO SCH ×3 (10:04→22:32)
[2016-12-27] MEDS: FLUoxetine HCL 10 MG CAP PO SCH (10:04)
[2016-12-27] MEDS: levETIRAcetam 500 MG TAB PO SCH ×2 (10:04→22:32)
[2016-12-27] MEDS: ENOXAPARIN SODIUM 30 MG/0.3 ML SYRINGE SQ SCH (10:05)
[2016-12-27] MEDS: ATORVASTATIN 40 MG TAB PO SCH (10:05)
[2016-12-27] MEDS: PHENYTOIN SODIUM 100 MG CAP PO SCH ×2 (10:05→22:33)
--- NOTE | 2016-12-27 10:43 | HHI.PR ---
Subjective Remarks Patient doing better today sitting in the bed About to start eating her breakfast Blood glucose much better controlled today, BMP was reviewed and it's within normal limits creatinine improved dropped 1.7 no anion gap will transfer to [facility] floor Objective Vitals Vital Signs Date Time Temp Pulse Resp B/P Pulse Ox O2 Delivery O2 Flow Rate FiO2 12/27/16 07:39 97 Nasal Cannula 2.00 12/27/16 06:00 90 14 134/83 97 12/27/16 04:00 98.5 104 14 171/84 98 12/27/16 03:00 92 14 154/81 100 12/27/16 02:00 102 14 154/81 100 12/27/16 00:00 98.3 104 9 156/94 95 12/26/16 23:00 104 10 155/80 97 12/26/16 22:13 99 Nasal Cannula 2.00 12/26/16 22:00 100 149/72 99 12/26/16 21:00 102 10 138/72 94 12/26/16 20:00 98.7 92 16 97/56 95 12/26/16 18:00 98.9 116 13 172/80 95 12/26/16 17:30 112 10 167/89 95 12/26/16 17:00 100 16 115/58 96 12/26/16 16:00 110 12 171/87 98 12/26/16 15:00 94 12 168/79 92 12/26/16 14:00 118 15 172/88 93 12/26/16 13:30 96 14 146/76 92 12/26/16 13:00 96 13 110/57 92 12/26/16 12:30 108 15 145/77 92 12/26/16 12:15 104 13 146/73 93 12/26/16 12:00 97.9 98 15 108/60 93 12/26/16 11:45 106 14 151/72 93 12/26/16 11:30 104 14 146/77 94 12/26/16 11:15 106 14 155/81 93 12/26/16 11:00 93 21 12/26/16 11:00 106 11 164/88 94 12/26/16 10:45 108 11 177/88 94 I/O 12/26/16 12/26/16 12/26/16 12/27/16 12/27/16 12/27/16 07:00 15:00 23:00 07:00 15:00 23:00 Intake Total 1394 ml 410 ml 922 ml 435 ml Output Total 225 ml 275 ml 450 ml 1475 ml Balance 1169 ml 135 ml 472 ml -1040 ml Intake Oral 0 ml 120 ml 60 ml IV Total 1394 ml 410 ml 802 ml 375 ml Output Urine Total 225 ml 275 ml 450 ml 1475 ml # Bowel Movements 0 0 0 0 Result Diagram: 12/27/1680912/27/16809 Objective Remarks - GENERAL: This is a well-nourished, well-developed patient, somnolent in no apparent distress. SKIN: No rashes, warm and dry HEAD: Atraumatic. Normocephalic. EYES: Pupils equal round and reactive. Extraocular motions intact. No scleral icterus. ENT: Nose without bleeding, or drainage, Airway patent. NECK: Trachea midline. Supple CARDIOVASCULAR: Regular rate and rhythm without murmurs, gallops, or rubs. RESPIRATORY: Fair air entry bilaterally. No wheezes, rales, or rhonchi. GASTROINTESTINAL: Abdomen soft, non-tender, nondistended. Positive bowel sounds MUSCULOSKELETAL: Extremities without clubbing, cyanosis, or edema. Pedal pulses appreciated NEUROLOGICAL: Somnolent but able to Moves all extremity. Procedures 12/03: IM Reymundo fixation right lower extremity A/P Problem List: (1) DKA (diabetic ketoacidoses) ICD Code: E13.10 Status: Acute (2) SIRS (systemic inflammatory response syndrome) ICD Code: R65.10 Status: Acute (3) Acute kidney injury superimposed on chronic kidney disease ICD Code: N17.9 Status: Acute (4) Urinary retention ICD Code: R33.9 Status: Acute (5) Loss of appetite ICD Code: R63.0 Status: Acute (6) Fibula fracture ICD Code: S82.409A Status: Acute (7) Tibia fracture ICD Code: S82.209A Status: Acute (8) Anemia ICD Code: D64.9 Status: Acute (9) Hypocalcemia ICD Code: E83.51 Status: Acute (10) Vitamin D deficiency ICD Code: E55.9 Status: Acute Assessment and Plan Acute DKA: Resolved Anion gap closed, patient started on Lantus 6 units daily at bedtime, Accu-Chek with insulin sliding scale -Status post DKA protocol -Blood glucose much better controlled today, BMP was reviewed and it's within normal limits creatinine improved dropped 1.7 no anion gap will transfer to [facility] floor Ruled out SIRS t: Acute. Temperature 95.6. Tachycardic at 108. WBC count 12.5. Nausea/vomiting -KUB ordered and personally reviewed with no acute abnormality. -UA 12/24 without infection -C.diff PCR test negative. -Lactic acid normal at 1.3 -Blood cultures x 2 pending -CT abdomen/pelvis ordered. Cannot use contrast due to creatinine. Shows anasarca, small bilateral effusions and small to moderate ascites, but no ileus , or other bowel abnormality. -Repeat am CBC with diff REGAN on CKD: Start improving dropped to 1.7 today -Patient had a renal ultrasound done on 09/07/16 which show medical renal disease , but no obstruction. -New renal US 12/24 shows medical renal disease, no evidence of obstruction. It also shows trace ascites and small bilateral pleural effusions. There is concern the patient's IV fluid may be causing this. Chest x-ray shows no evidence of cardiomegaly or edema. Atelectasis over the LLL. Echo report pending. -Continue IVF /2 NS @ 125 mL/hr. -Follow Cr level. -Urology consulted Urinary retention: Acute. -UA reviewed without infection. -Continue Maurer catheter. -Monitor intake and urine output, 925 cc of urine output over the past 24 hours. T2 DM, uncontrolled: A1c 10.8. -Bedside Accu-Cheks, sliding scale insulin. -Patient is allergic to Levemir; resumed Lantus at bedtime. -Lantus held as patient has not been eating. -See DKA above Low appetite: Persistent. Albumin low at 1.6 although this could be related to renal disease. Patient is on Keppra and Prozac which can cause anorexia but patient has been on these for an extended period of time. No other symptoms reported. -Painter Touch Up consulted. Advises a trial of Suplena oral supplement to drink QD. Continue Glucerna shakes as patient likes these. -12/24: Diet liberalized to regular diet to give patient more options. Megace liquid started to stimulate appetite. Once eating is back to normal will put back on diabetic diet. Patient was warned if she does not eat, a feeding tube could be in her future. -12/25: Patient has not started on Megace yet due to acute n/v. Hypertension: Recently hypertensive likely due to IVF -Continue Norvasc. Continue scheduled clonidine and prn Clonidine. Anemia, acute on chronic: Improved. -Secondary to blood loss due to surgery. Also likely has anemia of chronic disease due to renal failure. -Status post transfusion with 2 PRBC -Responded appropriately to transfusion. -GI was consulted due to anemia. Per GI she had colonoscopy and endoscopy done 2 months ago which was normal. She had no signs of any GI bleed. GI signed off. -12/25: Hemoglobin improved to 12.0. Right closed tibial fracture status post reymundo fixation on December 03. -Nonweightbearing. Patient was last evaluated by ortho on 12/11/16. -12/21: Ortho was reconsulted to follow patient here at [facility]. I spoke with Dr. Mills who states if wound looks good, can remove rafa. -12/22: Wounds to right lower extremity are appropriately closed with no signs of infection. RN instructed to remove rafa and leave open to air. -PT -Pain management with Percocet; will need to wean. 12/24: Patient has not used Percocet 10 since 12/17. Last used Percocet 5 on 12/22. Will discontinue both and make Tylenol available prn pain 1-3 and [place] 5 available prn for pain 4-10. Respiratory insufficiency: Resolved. -Most likely secondary to over sedation from narcotics. Hypocalcemia: -Continue calcium carbonate 1000 mg q12h. Vitamin D deficiency: 25-OH Vitamin D level 9.4. Patient states she took Vitamin D at home, but this is not in med rec. -Continue Vitamin D2 50,000 weekly for 6-8 weeks then transition to lower daily supplementation. History of seizure disorder, CVA and lupus -Continue home medication. -On Keppra 500mg BID, Dilantin 100mg BID. -Therapeutic on 12/16/16. -Repeat Dilantin level tomorrow am. DVT prophylaxis with SCDs and Lovenox 30mg daily per ortho. Hold Lovenox until imaging results. Problem Qualifiers (1) DKA (diabetic ketoacidoses): Keshav Jenkins MD Dec 27, 2016 10:43
--- NOTE | 2016-12-27 12:25 | PD.CONS ---
Consult Service Palliative Care Consult Requested By [facility] Primary Care Physician Andrea Cardoso Reason for Consultation a. To assist with evaluation and management of symptoms including:nausea b. To assist medical decision maker(s) with: better understanding of current medical conditions; weighing benefits/burdens of medical treatment options; making medical treatment decisions. HPI History of Present Illness ==Patient is a 46-year-old female with a past medical history significant for diabetes (poorly controlled, prior multiple admission for DKA), hypertension, asthma, CKD stage III, strokes 2013 (with residual deficit right upper extremity ), seizure, and lupus. Patient was walking downstairs leaving her father's house when she slipped and fell. Patient was brought to the emergency room on . X-ray shows fracture of the right distal tibia, and oblique fractures of the proximal and distal fibula. ==Patient had intramedullary yuri fixation on December 03, 2016 for right distal tibial, and right distal and proximal fibula fracture. ==Status post surgery on 12/04/2016, patient was noted to be lethargic and not responding. [place] Was called. Patient has a blood sugar of 570s. She did receive 10/325 of Percocet in the morning. Stores Despatch Hand to patient lethargy and respiratory distress likely some due to narcotics for which patient is very sensitive to. Patient was placed on BiPAP. 12/05/2016 - 12/06/2016patient is awake and alert on 2 L O2 with good saturations. Pt did require rbc transfusion. Renal function improving to Cr 1.75. Care was transferred to hospitalist. == GI was consulted due to anemia. GI feels anemia could be related to renal insufficiency and lupus. GI noted she had recent upper and lower endocopy which was unremarkable. GI recommends hematology consult and signed off. == Pt alsomost ready for discharge 12/11/2016 but condition complicated by nausea , FTT (albumin 1.9), some hyperglycemia 12/26 (glucose of 207), and fluctuating Cr, and inappetite. Nephrology follow renal function. Echo performed 12/25/2016 shows an EF of 55 to 60%, no regional wall abnormalities, with mild tricuspid valve regurgitation. Abdominal CT 12/25/2016 show interval anasarca, small bilateral effusions and small to moderate ascites. Renal Ultrasound 12/24/2016 show increase echogenicity of the renal cortex which can be seen with the underlying medical renal disease. Palliative care consulted as pt is refusing to eat. Pt just started on Megace . She declines pain, or dyspnea. She endorse some nausea this morning, but did not ask for medication. She denies depression. I spoke at bedside, family meeting with pt's (16 year old son), pt's ex- (Liliya Bain) and pt's Mother (Harriet Corcoran). == review goals of care with her and hospice in which she said she is not ready to just " give up." She said I have a 16 year old, I want to watch him grow. GOC not appropriate for Hospice. Pt's son at bedside. == She say she will get the peg tube as a last resort. == Inquire about steroids, although I did explain difficulty with steroids given her risk of hyperglycemia. She did say she ate better with steroids. == She decline depression, but amenable to psych visit. ==She endorses a full code. == completed a health care surrogate form. == family would opt for peg/feeding tube if pt does not improve in appetite. Function/Cognitive Trajectory Multiple hospitalization, appetite decreasing. Review of Systems ROS Limitations: Clinical Condition Constitutional: COMPLAINS OF: Fatigue Ears, nose, mouth, throat: DENIES: Hearing loss, Vertigo Gastrointestinal: COMPLAINS OF: Nausea, Vomiting Past Family Social History Coded Allergies: Aspirin (Verified Allergy, Severe, 12/02/16) RASH Penicillin (Verified Allergy, Severe, 12/02/16) Sulfa (Verified Allergy, Severe, 12/02/16) RASH Banana (Verified Allergy, Intermediate, Hives, 12/02/16) Adhesives (Verified Allergy, Unknown, 12/02/16) Macrobid (Unverified Allergy, Unknown, 12/02/16) Levemir (Verified Adverse Reaction, Severe, Sweats, funny feeling, mood swings, daze, 12/04/16) *MDRO Multi-Drug Resistant Organism (Unverified Adverse Reaction, Unknown , 12/02/16) MRSA 2013 MRSA PCR Screen POSITIVE on 01/22/16 & 11/09/16 Past Medical History . Bronchial asthma. . Lupus. . Hypertension. . Diabetes mellitus. . Seizure disorder. . CVA 2013 with residual deficit RUE . CKD stage III Past Surgical History 1. . 2. Cholecystectomy. 3. Partial Hysterectomy. 4. Left foot surgery. Reported Medications Keppra 500 mg by mouth twice a day Fluoxetine 10 mg by mouth daily Clonidine 0.1 mg by mouth daily Atorvastatin 80 mg by mouth daily Dilantin 100 mg by mouth twice a day Lantus NovoLog Percocet 10/13/24 one tablet by mouth every 4 hours as needed for pain Current Medications Medications (Trade) Dose Ordered Sig/Marin Route Start Time Stop Time Status Last Admin (Narcan Inj) 0.4 mg UNSCH PRN IV 12/02/16 20:00 (PROzac) 10 mg DAILY PO 12/03/16 09:00 12/27/16 10:04 (Keppra) 500 mg BID PO 12/02/16 21:00 12/27/16 10:04 (NS Flush) 2 ml UNSCH PRN IV FLUSH 12/03/16 16:00 (NS Flush) 2 ml BID IV FLUSH 12/03/16 21:00 12/26/16 21:00 Miscellaneous Information UNSCH PRN XX 12/03/16 16:00 (Ambien) 5 mg HS PRN PO 12/03/16 16:00 (Rivka-Colace) 1 tab BID PO 12/03/16 21:00 12/27/16 10:04 (Milk Of Magnesia Liq) 30 ml Q12H PRN PO 12/03/16 16:00 (Senokot) 17.2 mg Q12H PRN PO 12/03/16 16:00 (Dulcolax Supp) 10 mg DAILY PRN RECTAL 12/03/16 16:00 (Lactulose Liq) 30 ml DAILY PRN PO 12/03/16 16:00 Miscellaneous Information Patient in critical care unit? Ass... Q361D .XX 12/04/16 08:30 12/04/16 08:30 (Lovenox Inj) 30 mg Q24H SQ 12/06/16 09:00 12/27/16 10:05 (Catapres) 0.1 mg Q8HR PO 12/06/16 09:45 12/27/16 06:31 (Norvasc) 5 mg DAILY PO 12/12/16 09:00 12/27/16 10:04 (Catapres) 0.1 mg Q6H PRN PO 12/11/16 13:30 12/27/16 04:20 (Dilantin) 200 mg BID PO 12/12/16 21:00 12/27/16 10:05 (Lipitor) 80 mg DAILY PO 12/21/16 09:00 12/27/16 10:05 (Tums Chew) 1,000 mg Q12HR CHEW 12/22/16 21:00 12/27/16 10:04 (Drisdol) 50,000 units Q7D PO 12/23/16 09:00 12/23/16 11:17 (Tylenol) 650 mg Q6H PRN PO 12/24/16 14:15 ([place] 5-325 Mg) 1 tab Q6H PRN PO 12/24/16 14:15 12/25/16 19:00 (Megace Liq) 400 mg DAILY PO 12/25/16 09:00 12/27/16 10:03 (Zofran Inj) 4 mg Q4H PRN IVP 12/25/16 09:00 12/27/16 04:53 (Reglan Inj) 5 mg Q6H PRN IVS 12/25/16 11:30 12/26/16 10:14 (Albumin 25% Inj) 25 gm Q12H IV 12/25/16 20:00 12/27/16 10:03 (D50w (Vial) Inj) 50 ml UNSCH PRN IV 12/26/16 04:30 (Glucagon Inj) 1 mg UNSCH PRN OTHER 12/26/16 04:30 (Lantus Inj) 6 units HS SQ 12/26/16 07:05 12/26/16 07:57 (Apresoline Inj) 10 mg Q6H PRN IV 12/26/16 11:15 12/26/16 18:39 Family History HTN and DM runs in her family Uncle had colon cancer Substance Use Tobacco: Alcohol: Prescription med abuse: Illicits: Psychosocial History 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 Is originally from the [facility]. with a 16 year old son. Spiritual/Cultural Factors Holiness Health Care Surrogate: Copy in medical record (completed 12/27/2016) Physical Exam Vital Signs Date Time Temp Pulse Resp B/P Pulse Ox O2 Delivery O2 Flow Rate FiO2 12/27/16 11:00 100 9 167/92 89 12/27/16 10:00 102 7 157/89 96 12/27/16 09:00 78 12 159/91 100 12/27/16 08:00 98.4 90 13 156/92 100 12/27/16 07:39 97 Nasal Cannula 2.00 12/27/16 07:00 92 13 100 12/27/16 06:00 90 14 134/83 97 12/27/16 04:00 98.5 104 14 171/84 98 12/27/16 03:00 92 14 154/81 100 12/27/16 02:00 102 14 154/81 100 12/27/16 00:00 98.3 104 9 156/94 95 12/26/16 23:00 104 10 155/80 97 12/26/16 22:13 99 Nasal Cannula 2.00 12/26/16 22:00 100 149/72 99 12/26/16 21:00 102 10 138/72 94 12/26/16 20:00 98.7 92 16 97/56 95 12/26/16 18:00 98.9 116 13 172/80 95 12/26/16 17:30 112 10 167/89 95 12/26/16 17:00 100 16 115/58 96 12/26/16 16:00 110 12 171/87 98 12/26/16 15:00 94 12 168/79 92 12/26/16 14:00 118 15 172/88 93 12/26/16 13:30 96 14 146/76 92 12/26/16 13:00 96 13 110/57 92 12/26/16 12:30 108 15 145/77 92 12/26/16 12:15 104 13 146/73 93 12/26/16 12:00 97.9 98 15 108/60 93 12/26/16 11:45 106 14 151/72 93 12/26/16 11:30 104 14 146/77 94 12/26/16 11:15 106 14 155/81 93 12/26/16 12/27/16 19:00 07:00 Intake Total 410 ml 1357 ml Output Total 275 ml 1925 ml Balance 135 ml -568 ml Intake Oral 0 ml 180 ml IV Total 410 ml 1177 ml Output Urine Total 275 ml 1925 ml # Bowel Movements 0 0 Exam CONSTITUTIONAL/GENERAL: This is an frail middle age female, sitting up in chair. SKIN: No jaundice, rashes, or lesions. Ecchymoses on upper extremities. No wounds seen anteriorly. Skin temperature appropriate. Not diaphoretic. HEAD: Atraumatic. Normocephalic. EYES: Pupils equal and round and reactive. Extraocular motions intact. No scleral icterus. No injection or drainage. Fundi not examined. ENT: Hearing grossly normal. Nose without bleeding or purulent drainage. Throat without visible erythema, exudates, masses, or lesions. NECK: Trachea midline. Supple, nontender. No palpable thyroid enlargement or nodularity. CARDIOVASCULAR: Regular rate and rhythm without murmurs, gallops, or rubs. No JVD. Peripheral pulses symmetric. RESPIRATORY/CHEST: Symmetric, unlabored respirations. Clear to auscultation. Breath sounds equal bilaterally. No wheezes, rales, or rhonchi. GASTROINTESTINAL: Abdomen soft, non-tender, nondistended. No hepato-splenomegaly , or palpable masses. No guarding. Bowel sounds present. GENITOURINARY: Without palpable bladder distension. Maurer catheter in place. MUSCULOSKELETAL: Extremities without clubbing, cyanosis, or edema. No mottling or clubbing. LYMPHATICS: No palpable cervical or supraclavicular adenopathy. NEUROLOGICAL: Awake and alert. Motor and sensory grossly within normal limits. Follows commands. Cognitively sharp. Moves all extremities. PSYCHIATRIC: No obvious anxiety/depression. no apparent hallucinations or other psychotic thought process. Diagnostic Tests Laboratory Laboratory Tests Test 12/24/16 12/24/16 12/25/16 12/25/16 15:50 17:40 08:11 12:02 Urine Collection Type CATH Urine Color YELLOW (YELLW/STRAW) Urine Turbidity CLEAR (CLEAR) Urine pH 5.5 (5.0-8.5) Urine Specific [place] 1.015 (1.002-1.035) Urine Protein 100 mg/dL (NEG-TRACE) Urine Glucose (UA) NEG mg/dL (NEG) Urine Ketones NEG mg/dL (NEG) Urine Occult Blood SMALL (NEG) Urine Nitrite NEG (NEG) Urine Bilirubin NEG (NEG) Urine Leukocyte Esterase NEG (NEG) Urine WBC 0-2 /hpf (0-5) Urine Squamous Epithelial 6-8 /hpf (0-5) Cells Urine Amorphous Sediment FEW Urine Hyaline Casts 0-2 /lpf (RARE) Microscopic Urinalysis Comment CATH-CULT NOT IND Urine Collection Time 15:50 Stool C. difficile Toxin (PCR) NEGATIVE (NEGATIVE) Stl C. difficile Toxin PRESUMPTIVE Epiderm 027 NEGATIVE (NEGATIVE) White Blood Count 12.5 TH/MM3 (4.0-11.0) Red Blood Count 3.98 MIL/MM3 (4.00-5.30) Hemoglobin 12.0 GM/DL (11.6-15.3) Hematocrit 35.9 % (35.0-46.0) Mean Corpuscular Volume 90.3 FL (80.0-100.0) Mean Corpuscular Hemoglobin 30.3 PG (27.0-34.0) Mean Corpuscular Hemoglobin 33.5 % Concent (32.0-36.0) Red Cell Distribution Width 14.3 % (11.6-17.2) Platelet Count 304 TH/MM3 (150-450) Mean Platelet Volume 10.7 FL (7.0-11.0) Sodium Level 139 MEQ/L (136-145) Potassium Level 4.6 MEQ/L (3.5-5.1) Chloride Level 102 MEQ/L (98-107) Carbon Dioxide Level 13.3 MEQ/L (21.0-32.0) Anion Gap 24 MEQ/L (5-15) Blood Urea Nitrogen 19 MG/DL (7-18) Creatinine 2.00 MG/DL (0.50-1.00) Estimat Glomerular Filtration 32 ML/MIN (>89) Rate Random Glucose 170 MG/DL (74-106) Calcium Level 8.2 MG/DL (8.5-10.1) Total Bilirubin 0.3 MG/DL (0.2-1.0) Direct Bilirubin 0.1 MG/DL (0.0-0.2) Indirect Bilirubin 0.2 MG/DL (0.0-0.8) Aspartate Amino Transf 15 U/L (15-37) (AST/SGOT) Alanine Aminotransferase 11 U/L (10-53) (ALT/SGPT) Alkaline Phosphatase 259 U/L (45-117) Total Protein 5.8 GM/DL (6.4-8.2) Albumin 1.6 GM/DL (3.4-5.0) Lipase 276 U/L (73-393) Lactic Acid Level 1.3 mmol/L (0.4-2.0) B-Hydroxybutyrate 13.81 MMOL/L (0.00-0.39) Test 12/25/16 12/26/16 12/26/16 12/26/16 20:56 03:00 06:08 06:34 Sodium Level 141 MEQ/L 141 MEQ/L (136-145) (136-145) Potassium Level 4.2 MEQ/L 5.0 MEQ/L (3.5-5.1) (3.5-5.1) Chloride Level 105 MEQ/L 108 MEQ/L (98-107) (98-107) Carbon Dioxide Level 17.2 MEQ/L 21.3 MEQ/L (21.0-32.0) (21.0-32.0) Anion Gap 19 MEQ/L (5-15) 12 MEQ/L (5-15) Blood Urea Nitrogen 23 MG/DL (7-18) 22 MG/DL (7-18) Creatinine 2.10 MG/DL 2.10 MG/DL (0.50-1.00) (0.50-1.00) Estimat Glomerular Filtration 30 ML/MIN (>89) 30 ML/MIN (>89) Rate Random Glucose 137 MG/DL 147 MG/DL (74-106) (74-106) Calcium Level 7.8 MG/DL 7.5 MG/DL (8.5-10.1) (8.5-10.1) Phosphorus Level 3.1 MG/DL 2.9 MG/DL (2.5-4.9) (2.5-4.9) Magnesium Level 1.7 MG/DL 1.5 MG/DL (1.5-2.5) (1.5-2.5) B-Hydroxybutyrate 2.39 MMOL/L (0.00-0.39) White Blood Count 13.1 TH/MM3 (4.0-11.0) Red Blood Count 3.28 MIL/MM3 (4.00-5.30) Hemoglobin 9.6 GM/DL (11.6-15.3) Hematocrit 29.6 % (35.0-46.0) Mean Corpuscular Volume 90.2 FL (80.0-100.0) Mean Corpuscular Hemoglobin 29.4 PG (27.0-34.0) Mean Corpuscular Hemoglobin 32.6 % Concent (32.0-36.0) Red Cell Distribution Width 14.1 % (11.6-17.2) Platelet Count 243 TH/MM3 (150-450) Mean Platelet Volume 9.6 FL (7.0-11.0) Neutrophils (%) (Auto) 81.1 % (16.0-70.0) Lymphocytes (%) (Auto) 6.2 % (9.0-44.0) Monocytes (%) (Auto) 7.1 % (0.0-8.0) Eosinophils (%) (Auto) 0.4 % (0.0-4.0) Basophils (%) (Auto) 5.2 % (0.0-2.0) Neutrophils # (Auto) 10.6 TH/MM3 (1.8-7.7) Lymphocytes # (Auto) 0.8 TH/MM3 (1.0-4.8) Monocytes # (Auto) 0.9 TH/MM3 (0-0.9) Eosinophils # (Auto) 0.1 TH/MM3 (0-0.4) Basophils # (Auto) 0.7 TH/MM3 (0-0.2) CBC Comment AUTO DIFF Differential Total Cells 100 Counted Neutrophils % (Manual) 88 % (16-70) Band Neutrophils % 2 % (0-6) Lymphocytes % 6 % (9-44) Monocytes % 3 % (0-8) Eosinophils % 1 % (0-4) Neutrophils # (Manual) 11.8 TH/MM3 (1.8-7.7) Differential Comment FINAL DIFF MANUAL Urine Random Sodium 19 MEQ/L Test 12/26/16 12/26/16 12/27/16 11:47 17:48 08:10 Sodium Level 140 MEQ/L 144 MEQ/L 146 MEQ/L (136-145) (136-145) (136-145) Potassium Level 4.7 MEQ/L 4.6 MEQ/L 4.5 MEQ/L (3.5-5.1) (3.5-5.1) (3.5-5.1) Chloride Level 111 MEQ/L 111 MEQ/L 112 MEQ/L (98-107) (98-107) (98-107) Carbon Dioxide Level 21.2 MEQ/L 25.0 MEQ/L 30.2 MEQ/L (21.0-32.0) (21.0-32.0) (21.0-32.0) Anion Gap 8 MEQ/L (5-15) 8 MEQ/L (5-15) 4 MEQ/L (5-15) Blood Urea Nitrogen 20 MG/DL (7-18) 19 MG/DL (7-18) 17 MG/DL (7-18) Creatinine 2.10 MG/DL 2.00 MG/DL 1.70 MG/DL (0.50-1.00) (0.50-1.00) (0.50-1.00) Estimat Glomerular Filtration 30 ML/MIN (>89) 32 ML/MIN (>89) 39 ML/MIN (>89) Rate Random Glucose 168 MG/DL 149 MG/DL 137 MG/DL (74-106) (74-106) (74-106) Calcium Level 7.9 MG/DL 7.9 MG/DL 7.8 MG/DL (8.5-10.1) (8.5-10.1) (8.5-10.1) Phosphorus Level 2.5 MG/DL (2.5-4.9) Magnesium Level 1.8 MG/DL (1.5-2.5) Total Bilirubin 0.2 MG/DL (0.2-1.0) Aspartate Amino Transf 10 U/L (15-37) (AST/SGOT) Alanine Aminotransferase 8 U/L (10-53) (ALT/SGPT) Alkaline Phosphatase 175 U/L (45-117) Total Protein 5.1 GM/DL (6.4-8.2) Albumin 1.9 GM/DL (3.4-5.0) Phenytoin (Dilantin) Level 10.3 MCG/ML (10.0-20.0) White Blood Count 8.9 TH/MM3 (4.0-11.0) Red Blood Count 3.07 MIL/MM3 (4.00-5.30) Hemoglobin 9.3 GM/DL (11.6-15.3) Hematocrit 27.8 % (35.0-46.0) Mean Corpuscular Volume 90.6 FL (80.0-100.0) Mean Corpuscular Hemoglobin 30.2 PG (27.0-34.0) Mean Corpuscular Hemoglobin 33.4 % Concent (32.0-36.0) Red Cell Distribution Width 14.2 % (11.6-17.2) Platelet Count 192 TH/MM3 (150-450) Mean Platelet Volume 9.2 FL (7.0-11.0) Neutrophils (%) (Auto) 74.1 % (16.0-70.0) Lymphocytes (%) (Auto) 14.6 % (9.0-44.0) Monocytes (%) (Auto) 5.9 % (0.0-8.0) Eosinophils (%) (Auto) 1.8 % (0.0-4.0) Basophils (%) (Auto) 3.6 % (0.0-2.0) Neutrophils # (Auto) 6.6 TH/MM3 (1.8-7.7) Lymphocytes # (Auto) 1.3 TH/MM3 (1.0-4.8) Monocytes # (Auto) 0.5 TH/MM3 (0-0.9) Eosinophils # (Auto) 0.2 TH/MM3 (0-0.4) Basophils # (Auto) 0.3 TH/MM3 (0-0.2) CBC Comment DIFF FINAL Differential Comment Result Diagram: 12/27/1610 12/27/16 08 Microbiology Microbiology Date/Time Procedure Status Source Growth 12/25/16 12:02 Aerobic Blood Culture - Preliminary Resulted Blood Peripheral NO GROWTH IN 2 DAYS 12/25/16 12:02 Anaerobic Blood Culture - Preliminary Resulted Blood Peripheral NO GROWTH IN 2 DAYS 12/25/16 21:03 Aerobic Blood Culture - Preliminary Resulted Blood Peripheral NO GROWTH IN 2 DAYS 12/25/16 21:03 Anaerobic Blood Culture - Preliminary Resulted Blood Peripheral NO GROWTH IN 2 DAYS Patient/Family Conference Present at Family Conference: I spoke at bedside, family meeting with pt's (16 year old son), pt's ex- (Liliya Bain) and pt's Mother (Harriet Corcoran). Family Conference Time (mins): 45 Family Conference Location: Bedside Issues Discussed: * Palliative care role, purpose, approach * Additional medical, psychosocial, and spiritual history * Patients general health, functional status, and cognitive changes in the months leading up to the current hospitalization * Patient/family understanding of the current medical problems * Patient/family understanding of prognosis * Patients goals of care as best understood from advance directives and/or conversations and/or values * Current medical treatment options and benefits/burdens of those options * Likely scenarios comparing ongoing aggressive care with a transition to comfort measures only * Questions answered to the best of my ability * Palliative care contact information provided Assessment and Plan Disease Oriented Problem List: (1) Closed fracture of right tibia and fibula (2) Anemia (3) Lupus (4) DM (diabetes mellitus), type 1 with hyperosmolarity (5) CKD (chronic kidney disease), stage III Symptom Scale: (1) Nausea 0-10 Scale: 0 (had it earlier.) (2) Decrease in appetite 0-10 Scale: Unable to quantify Comment: multifactorial- general debility, renal failure, possible depression, Pertinent Non-Medical Issues Psychosocial: Spiritual: Legal: Ethical issues impacting care: Important Contacts Kevin Corcoran (father and Primary HCS) [phone] ( home) [phone] (cell) Harriet Corcoran (mother and 1st Alternate HCS) [phone] (home ) Liliya bain(ex and 2nd alternate HCS) [phone] Prognosis Patient is a 46-year-old female with a past medical history significant for diabetes (poorly controlled, prior multiple admission for DKA), hypertension, asthma, CKD stage III, strokes 2014 (with residual deficit right upper extremity ), seizure, and lupus. Pt came in with right ankle fracture and was repaired. Had ICU stay dut to respiratory distress thought to be narcotic related, and anemia(thought to be ckd or anemia of chronic disease). Followed by renal for CKD. Prognosis is guarded. Biggest challenge is nutrition and poor appetite ( cause? Multifactorial, hx of pancreatitis, lupus, depression, general decline). . Likely will have multiple recurrent hospitalization. Code Status: Full Code Plan == Capacity- pt has capacity to make medical decision. ==Code: Full == nausea- has reglan, did not ask for it. Ask patient to request it if symptomatic. == decrease appetite- had 1st dose of magace today. == Goals of Care. I spoke at bedside, family meeting with pt's (16 year old son), pt's ex- (Liliya Bain) and pt's Mother (Harriet Corcoran). * she endorse she just does not want to eat, no appetite. She denies depression. She has nausea this morning, but she did not ask for nausea medicine. * review goals of care with her and hospice in which she said she is not ready to just " give up." She said I have a 16 year old, I want to watch him grow. GOC not appropriate for Hospice. Pt's son at bedside. * She say she will get the peg tube as a last resort. * Inquire about steroids, although I did explain difficulty with steroids given her risk of hyperglycemia. She did say she ate better with steroids. I leave that decision to start steroids to medical team. * She decline depression, but amenable to psych visit. * She endorses a full code. * completed a health care surrogate form. * family would opt for peg/feeding tube if pt does not improve in appetite. * Pt state she is amenable to take and drink Glucerna if ordered. == Palliative Care will follow up, as needed. Goals of care established. Thank you for the opportunity to participate in the care of Ms. Lang. Attestation To help prompt me to consider important information that might be impacting today's encounter and assessment, information from prior notes written by myself or my colleagues may have been "brought forward" into today's note. My signature on this note, however, is an attestation that I personally performed the exam, history, and/or decision-making noted today, and, unless otherwise indicated, the interactions with patient, family, and staff as well as the review of records all occurred today. I also attest that the listed assessment and stated plan reflect my best clinical judgment today based on the combination of historical information, prior notes, and today's exam/ interactions. When time spent is documented, it refers only to time spent today by the signer, or if indicated, combined time spent today by collaborating physician/nurse practitioner. Davey Wu MD Dec 27, 2016 12:14
--- NOTE | 2016-12-27 17:23 | HHI.NPPN ---
Subjective General Problems: Anemia Renal Failure: Chronic, Acute Interval History Renal function is better. Her oral intake is poor, palliative has evaluated. ( Eva Marcelo) Review of Systems General Constitutional: Fatigue (Eva Marcelo) Musculoskeletal MS: Pain/Stiffness (Eva Marcelo) Objective Data Data 12/26/16 12/27/16 19:00 07:00 Intake Total 410 ml 1357 ml Output Total 275 ml 1925 ml Balance 135 ml -568 ml Intake Oral 0 ml 180 ml IV Total 410 ml 1177 ml Output Urine Total 275 ml 1925 ml # Bowel Movements 0 0 Vital Signs Date Time Temp Pulse Resp B/P Pulse Ox O2 Delivery O2 Flow Rate FiO2 12/27/16 13:00 102 9 166/95 96 12/27/16 12:00 104 4 95 12/27/16 11:00 100 9 167/92 89 12/27/16 10:00 102 7 157/89 96 12/27/16 09:00 78 12 159/91 100 12/27/16 08:00 98.4 90 13 156/92 100 12/27/16 07:39 97 Nasal Cannula 2.00 12/27/16 07:00 92 13 100 12/27/16 06:00 90 14 134/83 97 12/27/16 04:00 98.5 104 14 171/84 98 12/27/16 03:00 92 14 154/81 100 12/27/16 02:00 102 14 154/81 100 12/27/16 00:00 98.3 104 9 156/94 95 12/26/16 23:00 104 10 155/80 97 12/26/16 22:13 99 Nasal Cannula 2.00 12/26/16 22:00 100 149/72 99 12/26/16 21:00 102 10 138/72 94 12/26/16 20:00 98.7 92 16 97/56 95 12/26/16 18:00 98.9 116 13 172/80 95 12/26/16 17:30 112 10 167/89 95 (Eva Marcelo) -: 12/27/16 0810 12/27/16 0810 Imaging Last 72 hours Impressions Abdomen/Pelvis CT 12/25/16 1100 Signed Impressions: Service Date/Time: Sunday, December 25, 2016 12:00 - CONCLUSION: Interval development of anasarca, small bilateral effusions and small to moderate ascites. No significant ileus, hydronephrosis, mass or lymphadenopathy. Status post cholecystectomy. Bobby Martins MD Abdomen X-Ray 12/25/16 0857 Signed Impressions: Service Date/Time: Sunday, December 25, 2016 09:27 - CONCLUSION: No acute disease. Bobby Martins MD (Fozia,Eva B. GLOVE TAGGER) Physical Exam General Appearance: Well Developed, Comfortable, Sleeping (Fozia,Eva B. GLOVE TAGGER) Throat Throat Exam: Oral Mucosa [place] & Moist (Fozia,Eva B. GLOVE TAGGER) Neck Neck Exam: Neck Supple (Fozia,Eva B. GLOVE TAGGER) Pulmonary Resp Exam: Clear Bilaterally, Breath Sounds Equal, Decreased Bases (Fozia, Eva B. GLOVE TAGGER) Cardiology CV Exam: Regular (Fozia,Eva B. GLOVE TAGGER) Gastrointestinal/Abdomen GI Exam: Soft, Bowel Sounds Present (Fozia,Eva B. GLOVE TAGGER) Musculoskeletal MS Exam: Joints Intact, Normal Tone (Fozia,Eva B. GLOVE TAGGER) Integumentary Skin Exam: Warm, Dry (Fozia,Eva B. GLOVE TAGGER) Extremeties Extremities Exam: No Edema, Pedal Pulses Palpable (Fozia,Eva B. GLOVE TAGGER) Neurologic Neuro Exam: Alert, Awake, Oriented, Speech Clear, Moving All Extremities ( Fozia,Eva B. GLOVE TAGGER) Psychiatric Psych Exam: Appropriate Responses (FoziaEva B. GLOVE TAGGER) Assessment/Plan Discussed Condition With: Patient Assessment Summary: REGAN/Acute Renal Failure, Hypertension Problem List: (1) Acute kidney failure Plan: her renal function has improved. she is becoming hypernatremic, oral intake of fluids is poor at this time continue to monitor renal function she is non oliguric, remove meade when able give 250 cc of 1/4 NS, it is ordered for today avoid nephrotoxic medications this admission (2) CKD (chronic kidney disease), stage III Plan: Due to diabetic nephropathy monitor renal function her baseline creatinine is 1.3-1.7 (3) DKA (diabetic ketoacidoses) Plan: corrected, anion gap closed continue insulin for treatment of DM II Plan we will sign off at this time, we will follow her in CKD clinic (Eva Marcelo) Plan Patient was seen and examined. Renal function is stable. (Valdez Patterson MD) Problem Qualifiers (1) DKA (diabetic ketoacidoses): Eva Marcelo Dec 27, 2016 17:23 Valdez Patterson MD Dec 28, 2016 10:15
[2016-12-27] MEDS ORDERED: SODIUM CHLORIDE 23.4% INJ 38.5 MEQ in WATER STERILE FOR INJ 1,000 ML IV SCH (18:00)
[2016-12-27] MEDS: INSULIN GLARGINE 1,000 UNITS/10 ML VIAL SQ SCH (21:00)
[2016-12-28] VITALS (7 sets, daily range): BP systolic 123–195; BP diastolic 81–118; PULSE 96–108; RESP 12–20; TEMP 96–97.8; O2SAT 92–98
[2016-12-28] MEDS: ACETAMINOPHEN/HYDROcodone 325 MG/5 MG TAB PO PRN (02:53)
[2016-12-28] MEDS: cloNIDine HCL 0.1 MG TAB PO SCH ×3 (06:28→22:32)
[2016-12-28] MEDS: ALBUMIN HUMAN 25% 25 GM/100 ML BAGP IV SCH (07:57)
[2016-12-28] MEDS: ENOXAPARIN SODIUM 30 MG/0.3 ML SYRINGE SQ SCH (07:57)
[2016-12-28] MEDS: FLUoxetine HCL 10 MG CAP PO SCH (07:58)
[2016-12-28] MEDS: amLODIPine BESYLATE 5 MG TAB PO SCH (07:58)
[2016-12-28] MEDS: PHENYTOIN SODIUM 100 MG CAP PO SCH ×2 (07:58→22:28)
[2016-12-28] MEDS: DOCUSATE SODIUM 50 MG/SENNA 8.6 MG TAB PO SCH ×2 (07:58→21:00)
[2016-12-28] MEDS: ATORVASTATIN 40 MG TAB PO SCH (07:58)
[2016-12-28] MEDS: levETIRAcetam 500 MG TAB PO SCH ×2 (07:58→22:30)
[2016-12-28] MEDS: MEGESTROL ACETATE SUSP 400 MG/10 ML CUP PO SCH (07:59)
[2016-12-28] MEDS: CALCIUM CARBONATE 500 MG CHEWABLE TAB CHEW SCH ×2 (07:59→22:31)
[2016-12-28] MEDS: INSULIN ASPART SUPPLEMENTAL SCALE SQ SCH ×4 (08:07→21:00)
[2016-12-28] MEDS: SODIUM CHLORIDE 0.9% FLUSH 10 ML FLUSH IV FLUSH SCH (08:13)
[2016-12-28] MEDS ORDERED: ONDANSETRON HCL 4 MG/5 ML UDC PO PRN (15:45)
--- NOTE | 2016-12-28 15:47 | HHI.PR ---
Subjective Remarks Patient seen and examined today for follow-up on acidosis, anorexia, renal failure. Patient lying in bed with father at bedside. Patient states that she cannot eat. She is asking if we can put her on steroids to increase her appetite. She also discussing about increased need for pain medicine. States that she cannot eat and indicates that she has had endoscopies done recently. She also mentions the fact about discussion of a feeding tube. Patient indicates that she cannot walk and get out of bed because of her ankle fracture. Patient did have a palliative care consult however she deferred hospice care Objective Vitals Vital Signs Date Time Temp Pulse Resp B/P Pulse Ox O2 Delivery O2 Flow Rate FiO2 12/28/16 12:57 97.0 108 12 171/111 96 12/28/16 08:13 148/84 12/28/16 08:00 97.4 102 16 177/100 97 12/28/16 07:20 93 Nasal Cannula 1.50 12/28/16 05:10 96 18 136/92 98 12/28/16 02:44 97.8 107 20 195/118 94 12/27/16 20:27 96 Nasal Cannula 2.00 12/27/16 20:00 98.3 106 12 178/92 94 12/27/16 19:00 98.1 104 13 95 12/27/16 18:00 108 10 152/87 96 12/27/16 17:00 104 13 185/103 90 12/27/16 16:00 100 4 176/101 92 I/O 12/27/16 12/27/16 12/27/16 12/28/16 12/28/16 12/28/16 07:00 15:00 23:00 07:00 15:00 23:00 Intake Total 435 ml 120 ml 250 ml Output Total 1475 ml 550 ml 321 ml 300 ml Balance -1040 ml -430 ml -321 ml -50 ml Intake Oral 60 ml 120 ml IV Total 375 ml 250 ml Output Urine Total 1475 ml 550 ml 320 ml 300 ml Stool Total 1 ml # Voids 1 # Bowel Movements 0 Result Diagram: 12/27/16 0810 12/27/16809 Procedures 12/03: IM Reymundo fixation right lower extremity Urinary Catheter: No Vascular Central Line Catheter: No A/P Assessment and Plan Anorexia, decreased appetite, possible gastroparesis Patient is on Keppra and Prozac which can cause anorexia but patient has been on these for an extended period of time. No other symptoms reported. Recharger consulted. Advises a trial of Suplena oral supplement to drink QD. Continue Glucerna shakes as patient likes these. Edwin started Palliative care was consulted for anorexia, decreased appetite. Patient refused hospice at this time. Feeding tube are discussed and she would agree to it as a last resort. Start scheduled Reglan, Start Remeron Multiple abdominal scans have been performed without any acute abnormality If patient has any more emesis will pursue gastric emptying study. If patient continues with refusing to eat or anorexia may need to consult GI or psychiatry Right closed tibial fracture status post reymundo fixation on December 03. Orthopedic recommending Nonweightbearing. Ortho was reconsulted to follow patient here at [facility]. Andra Martines spoke with Dr. Mills who states if wound looks good, can remove lex. Lex removed on 12/22/16 Pain control Tylenol 650 mg every 6 hours as needed for pain 13 [place] 5/325 one tablet every 6 hours for pain 410 Hypertension: Uncontrolled Increase to Norvasc 10 mg daily Start Lopressor 12.5 mg twice daily Clonidine 0.1 mg every 8 hours Clonidine, Apresoline as needed Metabolic acidosis with anion gap, resolved secondary to diabetic ketoacidosis, acute renal failure Status post diabetic ketoacidosis protocol Systemic inflammatory response syndrome, resolved Patient no longer meets criteria, patient did have tachycardia, leukocytosis, no infectious source Respiratory insufficiency: Resolved. -Most likely secondary to over sedation from narcotics. Acute renal failure superimposed on chronic kidney disease stage III, back to baseline Status post IV fluid Renal ultrasound shows medical renal disease Nephrology consulted and has signed off Acute urinary retention, resolved: Could have been secondary to medication side effect Maurer has been removed, Diabetes type 2, uncontrolled Hemoglobin A1c 10.8 Accu-Cheks with sliding scale insulin Lantus 6 units at bedtime, patient is allergic to Levemir Anemia, acute on chronic: Improved. Secondary to blood loss due to surgery and anemia of chronic disease due to renal failure. Status post transfusion with 2 PRBC Hemoglobin has remained stable GI was consulted due to anemia. Per GI she had colonoscopy and endoscopy done 2 months ago which was normal. She had no signs of any GI bleed. GI signed off. Hypocalcemia: Patient was initially refusing TUMS but I informed her it is necessary for fracture healing. Check PTH, calcitonin levels Vitamin D deficiency: 25-OH Vitamin D level 9.4. Patient states she took Vitamin D at home, but this is not in med rec. Continue Vitamin D2 50,000 weekly for 6-8 weeks then transition to lower daily supplementation. History of seizure disorder, CVA and lupus Continue home medication. Continue Keppra 500mg BID, Dilantin 100mg BID. Monitor dilantin level periodically. Therapeutic on 12/16/16. DVT prophylaxis Sequential compression devices, subcutaneous Lovenox Discharge Planning Discharge planning per case management Shiraz Espinal Dec 28, 2016 15:47
[2016-12-28] MEDS ORDERED: PILL SPLITTER OTHER PRN (16:15)
[2016-12-28] MEDS: METOCLOPRAMIDE HCL SYRUP 10 MG/10 ML UDC PO SCH ×2 (17:05→22:27)
[2016-12-28] MEDS: MIRTAZAPINE ODT 15 MG TAB PO SCH (21:00)
[2016-12-28] MEDS: INSULIN GLARGINE 1,000 UNITS/10 ML VIAL SQ SCH (21:00)
[2016-12-28] MEDS: METOPROLOL TARTRATE 25 MG TAB PO SCH (22:28)
[2016-12-29] MEDS: cloNIDine HCL 0.1 MG TAB PO SCH ×3 (05:26→21:07)
[2016-12-29] MEDS: METOCLOPRAMIDE HCL SYRUP 10 MG/10 ML UDC PO SCH ×4 (05:26→21:07)
[2016-12-29 06:01] LABS: AUTOMATED NEUTROPHIL # 3.6 TH/MM3 (1.8-7.7); BASOPHIL # 0.1 TH/MM3 (0-0.2); BASOPHIL % 1.4 % (0.0-2.0); EOSINOPHIL # 0.2 TH/MM3 (0-0.4); EOSINOPHIL % 2.7 % (0.0-4.0); HEMO FLAGS DIFF FINAL; LYMPH % 26.6 % (9.0-44.0); LYMPHOCYTE # 1.6 TH/MM3 (1.0-4.8); MEAN CELL VOLUME 90.4 FL (80.0-100.0); MEAN CORPUSCULAR HEMOGLOBIN 29.5 PG (27.0-34.0); MEAN CORPUSCULAR HGB CONC 32.7 % (32.0-36.0); MONO % 6.1 % (0.0-8.0); NEUT % 63.2 % (16.0-70.0); PLATELET COUNT 168 TH/MM3 (150-450); RED BLOOD COUNT 2.87 MIL/MM3 (4.00-5.30); RED CELL DISTRIBUTION WIDTH 13.9 % (11.6-17.2); WHITE BLOOD COUNT 5.9 TH/MM3 (4.0-11.0)
[2016-12-29 06:07] LABS: POTASSIUM 4.1 MEQ/L (3.5-5.1)
[2016-12-29 06:11] LABS: MAGNESIUM 1.5 MG/DL (1.5-2.5)
[2016-12-29] MEDS: INSULIN ASPART SUPPLEMENTAL SCALE SQ SCH ×4 (07:00→21:00)
[2016-12-29 08:00] VITALS: BP 125/76; PULSE 91; RESP 17; TEMP 98.1; O2SAT 95
[2016-12-29] MEDS: DOCUSATE SODIUM 50 MG/SENNA 8.6 MG TAB PO SCH ×2 (08:40→21:00)
[2016-12-29] MEDS: ENOXAPARIN SODIUM 30 MG/0.3 ML SYRINGE SQ SCH ×2 (08:40→21:06)
[2016-12-29] MEDS: MEGESTROL ACETATE SUSP 400 MG/10 ML CUP PO SCH (08:40)
[2016-12-29] MEDS: CALCIUM CARBONATE 500 MG CHEWABLE TAB CHEW SCH ×2 (08:40→21:06)
[2016-12-29] MEDS: ATORVASTATIN 40 MG TAB PO SCH (08:41)
[2016-12-29] MEDS: PANTOPRAZOLE SOD 40 MG DELAYED RELEASE TAB PO SCH (08:41)
[2016-12-29] MEDS: levETIRAcetam 500 MG TAB PO SCH ×2 (08:41→21:07)
[2016-12-29] MEDS: METOPROLOL TARTRATE 25 MG TAB PO SCH ×2 (08:41→21:08)
[2016-12-29] MEDS: FLUoxetine HCL 10 MG CAP PO SCH (08:43)
[2016-12-29] MEDS: PHENYTOIN SODIUM 100 MG CAP PO SCH ×2 (08:44→21:07)
--- NOTE | 2016-12-29 09:52 | HHI.PR ---
Subjective Remarks Patient seen and examined today for follow-up on decrease appetite, anorexia. Patient states that she did not eat much yesterday besides some crackers and nutrition drink. Denied any nausea or vomiting. Patient states that she is just not hungry. Patient only got out of bed yesterday with physical therapy. Discussed with her that she needed yet bed at least 3 times a day Objective Vitals Vital Signs Date Time Temp Pulse Resp B/P Pulse Ox O2 Delivery O2 Flow Rate FiO2 12/29/16 08:00 98.1 91 17 125/76 95 12/28/16 20:00 96.0 104 12 123/81 92 12/28/16 12:57 97.0 108 12 171/111 96 I/O 12/28/16 12/28/16 12/28/16 12/29/16 12/29/16 12/29/16 07:00 15:00 23:00 07:00 15:00 23:00 Intake Total 250 ml 240 ml 460 ml Output Total 300 ml Balance -50 ml 240 ml 460 ml Intake Oral 460 ml Oral Supplement 240 ml IV Total 250 ml Output Urine Total 300 ml # Voids 1 1 2 # Bowel Movements 0 1 Result Diagram: 12/29/16 0525 12/29/16 0525 Objective Remarks GENERAL: Well-developed, well-nourished, in no acute distress. alert and orientated HEENT: Head is normocephalic without any lesions or masses noted. Facial features are symmetric. Eyes: Extraocular muscles are intact. Conjunctivae were clear. NECK: Trachea midline no deviation. CARDIAC: Regular rhythm, regular rate. S1/S2 are heard. No murmurs gallops or rubs. LUNGS: Clear to auscultation bilaterally. No wheeze, rhonchi or rales. No use of accessory muscles on inspiration or expiration. ABDOMEN: Soft, nontender. Nondistended. Bowel sounds heard in all 4 quadrants. No organomegaly or masses. Negative rebound, negative guarding EXTREMITIES: No edema, pulses are equal bilaterally. No cyanosis or clubbing NEUROLOGY: Mood and affect appear appropriate. Cranial nerves II through XII grossly intact. Moving all extremities, speech is clear Procedures 12/03: IM Reymundo fixation right lower extremity Urinary Catheter: No Vascular Central Line Catheter: No A/P Assessment and Plan Anorexia, decreased appetite, possible gastroparesis Patient is on Keppra and Prozac which can cause anorexia but patient has been on these for an extended period of time. No other symptoms reported. Duck Bill Operator consulted. Advises a trial of Suplena oral supplement to drink QD. Continue Glucerna shakes as patient likes these. Edwin started Palliative care was consulted for anorexia, decreased appetite. Patient refused hospice at this time. Feeding tube was discussed and she would agree to it as a last resort. Start scheduled Reglan, Start Remeron Multiple abdominal scans have been performed without any acute abnormality If patient has any more emesis will pursue gastric emptying study. If patient continues with refusing to eat or anorexia may need to consult GI or psychiatry Right closed tibial fracture status post reymundo fixation on December 03. Orthopedic recommending Nonweightbearing. Ortho was reconsulted to follow patient here at PO. Andra Martines spoke with Dr. Mills who states if wound looks good, can remove rafa. Conrad removed on 12/22/16 Pain control Tylenol 650 mg every 6 hours as needed for pain 13 [place] 5/325 one tablet every 6 hours for pain 410 Hypertension: Improved Norvasc 10 mg daily Lopressor 12.5 mg twice daily Clonidine 0.1 mg every 8 hours Clonidine, Apresoline as needed Metabolic acidosis with anion gap, resolved secondary to diabetic ketoacidosis, acute renal failure Status post diabetic ketoacidosis protocol Systemic inflammatory response syndrome, resolved Patient no longer meets criteria, patient did have tachycardia, leukocytosis, no infectious source Respiratory insufficiency: Resolved. -Most likely secondary to over sedation from narcotics. Acute renal failure superimposed on chronic kidney disease stage III, back to baseline Status post IV fluid Renal ultrasound shows medical renal disease Nephrology consulted and has signed off Acute urinary retention, resolved: Could have been secondary to medication side effect Maurer has been removed, Diabetes type 2, uncontrolled Hemoglobin A1c 10.8 Accu-Cheks with sliding scale insulin Lantus 6 units at bedtime, patient is allergic to Levemir Anemia, acute on chronic: . Secondary to blood loss due to surgery and anemia of chronic disease due to renal failure. Status post transfusion with 2 PRBC Hemoglobin is with mild decline GI was consulted due to anemia. Per GI she had colonoscopy and endoscopy done 2 months ago which was normal. She had no signs of any GI bleed. GI signed off. Hypocalcemia: Patient was initially refusing TUMS but I informed her it is necessary for fracture healing. Check PTH, calcitonin levels Vitamin D deficiency: 25-OH Vitamin D level 9.4. Patient states she took Vitamin D at home, but this is not in med rec. Continue Vitamin D2 50,000 weekly for 6-8 weeks then transition to lower daily supplementation. History of seizure disorder, CVA and lupus Continue home medication. Continue Keppra 500mg BID, Dilantin 100mg BID. Monitor dilantin level periodically. Therapeutic on 12/16/16. DVT prophylaxis Sequential compression devices, subcutaneous Lovenox Discharge Planning Discharge planning per case management Shiraz Espinal Dec 29, 2016 09:52
[2016-12-29 12:11] VITALS: BP 102/72; PULSE 87; RESP 12; TEMP 99.5; O2SAT 84
[2016-12-29 12:47] LABS: RETIC % 1.2 % (0.4-3.0); REVIEW FLAG FINAL
[2016-12-29 13:06] LABS: TRANSFERRIN IRON PROFILE 52 MG/DL (200-360)
[2016-12-29 13:32] LABS: FERRITIN 758 NG/ML (8-252)
[2016-12-29 20:00] VITALS: BP 166/102; PULSE 100; RESP 16; TEMP 98.7; O2SAT 96
[2016-12-29 20:45] VITALS: BP 164/92; PULSE 91
[2016-12-29] MEDS: MIRTAZAPINE ODT 15 MG TAB PO SCH (21:00)
[2016-12-29] MEDS: INSULIN GLARGINE 1,000 UNITS/10 ML VIAL SQ SCH (21:00)
[2016-12-30] MEDS: cloNIDine HCL 0.1 MG TAB PO SCH ×3 (06:12→20:51)
[2016-12-30] MEDS: METOCLOPRAMIDE HCL SYRUP 10 MG/10 ML UDC PO SCH ×4 (06:13→20:51)
[2016-12-30] MEDS: INSULIN ASPART SUPPLEMENTAL SCALE SQ SCH ×4 (06:17→20:45)
[2016-12-30 06:48] VITALS: BP 126/77; PULSE 106
[2016-12-30 08:00] VITALS: BP 128/84; PULSE 112; RESP 20; TEMP 98.7; O2SAT 99
[2016-12-30] MEDS: DOCUSATE SODIUM 50 MG/SENNA 8.6 MG TAB PO SCH ×2 (09:00→20:49)
[2016-12-30] MEDS: PHENYTOIN SODIUM 100 MG CAP PO SCH ×2 (09:18→20:51)
[2016-12-30] MEDS: CALCIUM CARBONATE 500 MG CHEWABLE TAB CHEW SCH ×2 (09:18→20:51)
[2016-12-30] MEDS: levETIRAcetam 500 MG TAB PO SCH ×2 (09:19→20:51)
[2016-12-30] MEDS: ERGOCALCIFEROL (VIT D2) 50,000 UNIT CAP PO SCH (09:19)
[2016-12-30] MEDS: FLUoxetine HCL 10 MG CAP PO SCH (09:20)
[2016-12-30] MEDS: METOPROLOL TARTRATE 25 MG TAB PO SCH ×2 (09:20→20:51)
[2016-12-30] MEDS: MEGESTROL ACETATE SUSP 400 MG/10 ML CUP PO SCH (09:20)
[2016-12-30] MEDS: PANTOPRAZOLE SOD 40 MG DELAYED RELEASE TAB PO SCH (09:20)
[2016-12-30] MEDS: ENOXAPARIN SODIUM 30 MG/0.3 ML SYRINGE SQ SCH ×2 (09:21→20:52)
--- NOTE | 2016-12-30 10:03 | HHI.PR ---
Subjective Remarks Patient seen and examined today for follow-up on anorexia, lack participation in care. Patient is lying in bed Theodore the room. She is asking help to go to the bathroom. Patient was cued to get out of bed and pivoted onto commode. Patient did not require any significant assistance to do so. Patient has not gotten out of bed. She states that she only ate a little because she has no appetite. I discussed with her that if she is not have any nausea or vomiting then she should be elevated to increase her oral intake. At the present time she is not a candidate for feeding tube in which she keeps asking about. She is able to eat, however she just does not because she indicates from lack of appetite. Patient appears to have a flat affect. Depressed mood. Does not appear she wants to do anything on her own, she always wants someone to do everything for her. Objective Vitals Vital Signs Date Time Temp Pulse Resp B/P Pulse Ox O2 Delivery O2 Flow Rate FiO2 12/30/16 06:48 106 126/77 12/29/16 20:45 91 164/92 12/29/16 20:00 98.7 100 16 166/102 96 12/29/16 12:11 99.5 87 12 102/72 84 I/O 12/29/16 12/29/16 12/29/16 12/30/16 12/30/16 12/30/16 07:00 15:00 23:00 07:00 15:00 23:00 Intake Total 460 ml 120 ml 120 ml Output Total 600 ml 500 ml Balance 460 ml -480 ml -380 ml Intake Oral 460 ml 120 ml 120 ml Output Urine Total 600 ml 500 ml # Voids 2 2 # Bowel Movements 1 1 0 Result Diagram: 12/29/16 0525 12/29/16 05 Objective Remarks GENERAL: Well-developed, well-nourished, in no acute distress. alert and orientated HEENT: Head is normocephalic without any lesions or masses noted. Facial features are symmetric. Eyes: Extraocular muscles are intact. Conjunctivae were clear. NECK: Trachea midline no deviation. CARDIAC: Regular rhythm, regular rate. S1/S2 are heard. No murmurs gallops or rubs. LUNGS: Clear to auscultation bilaterally. No wheeze, rhonchi or rales. No use of accessory muscles on inspiration or expiration. ABDOMEN: Soft, nontender. Nondistended. Bowel sounds heard in all 4 quadrants. No organomegaly or masses. Negative rebound, negative guarding EXTREMITIES: No edema, pulses are equal bilaterally. No cyanosis or clubbing NEUROLOGY: Mood and affect appear appropriate. Cranial nerves II through XII grossly intact. Moving all extremities, speech is clear Procedures 12/03: IM Reymundo fixation right lower extremity Urinary Catheter: No Vascular Central Line Catheter: No A/P Assessment and Plan Anorexia, decreased appetite, not wanting to eat, this appears to be a choice and not a clinical abnormality Patient is on Keppra and Prozac which can cause anorexia but patient has been on these for an extended period of time. No other symptoms reported. Structural Steel Detailer consulted. Advises a trial of Suplena oral supplement to drink QD. Continue Glucerna shakes as patient likes these. Megace started Palliative care was consulted for anorexia, decreased appetite. Patient refused hospice at this time. Feeding tube was discussed and she would agree to it as a last resort. Continue scheduled Reglan, Continue Remeron Multiple abdominal scans have been performed without any acute abnormality If patient has any more emesis will pursue gastric emptying study. Consult psychiatry for evaluation because of her reluctant to eat, flat affect , depressed mood Right closed tibial fracture status post reymundo fixation on December 03. Orthopedic recommending Nonweightbearing. Ortho was reconsulted to follow patient here at PO. Andra Martines spoke with Dr. Mills who states if wound looks good, can remove lex. Lex removed on 12/22/16 Pain control Tylenol 650 mg every 6 hours as needed for pain 13 Hypertension: Improved Norvasc 10 mg daily Lopressor 12.5 mg twice daily Clonidine 0.1 mg every 8 hours Clonidine, Apresoline as needed Metabolic acidosis with anion gap, resolved secondary to diabetic ketoacidosis, acute renal failure Status post diabetic ketoacidosis protocol Systemic inflammatory response syndrome, resolved Patient no longer meets criteria, patient did have tachycardia, leukocytosis, no infectious source Respiratory insufficiency: Resolved. -Most likely secondary to over sedation from narcotics. Acute renal failure superimposed on chronic kidney disease stage III, back to baseline Status post IV fluid Renal ultrasound shows medical renal disease Nephrology consulted and has signed off Acute urinary retention, resolved: Could have been secondary to medication side effect Maurer has been removed, Diabetes type 2, uncontrolled Hemoglobin A1c 10.8 Accu-Cheks with sliding scale insulin Lantus 6 units at bedtime, patient is allergic to Levemir Anemia, acute on chronic: . Secondary to blood loss due to surgery and anemia of chronic disease due to renal failure. Status post transfusion with 2 PRBC Hemoglobin is with mild decline GI was consulted due to anemia. Per GI she had colonoscopy and endoscopy done 2 months ago which was normal. She had no signs of any GI bleed. GI signed off. Hypocalcemia: Patient was initially refusing TUMS but I informed her it is necessary for fracture healing. Check PTH, calcitonin levels Vitamin D deficiency: 25-OH Vitamin D level 9.4. Patient states she took Vitamin D at home, but this is not in med rec. Continue Vitamin D2 50,000 weekly for 6-8 weeks then transition to lower daily supplementation. History of seizure disorder, CVA and lupus Continue home medication. Continue Keppra 500mg BID, Dilantin 100mg BID. Monitor dilantin level periodically. Therapeutic on 12/16/16. DVT prophylaxis Sequential compression devices, subcutaneous Lovenox Discharge Planning Discharge planning per case management Shiraz Espinal Dec 30, 2016 10:03
[2016-12-30 10:07] LABS: REVIEW FLAG FINAL
[2016-12-30] MEDS: ATORVASTATIN 40 MG TAB PO SCH (10:12)
--- NOTE | 2016-12-30 14:43 | RADRPT ---
EXAM DATE/TIME: 12/30/2016 13:36 [facility] COMPARISON: CHEST SINGLE AP, December 24, 2016, 15:15. INDICATIONS : Short of breath. MEDICAL HISTORY : Hypertension. Diabetes mellitus type I. Hypercholesterolemia. Lupus.CVA. Kidney stones SURGICAL HISTORY : Hysterectomy. Cholecystectomy. section ENCOUNTER: Subsequent ACUITY: 1 month PAIN SCORE: 0/10 LOCATION: Bilateral chest FINDINGS: PA and lateral views of the chest demonstrate minimal bibasilar densities and small left pleural effu logan. Tiny right pleural effusion. Heart normal in size. Osseous structures are intact. CONCLUSION: 1. Small left pleural effusion and tiny right pleural effusion. 2. Minimal bibasilar densities likely atelectasis. Luis Parks MD on December 30, 2016 at 14:41 Board Certified Radiologist. This report was verified electronically.
[2016-12-30] MEDS ORDERED: SERTRALINE HCL 50 MG TAB PO SCH (14:45)
[2016-12-30 14:55] VITALS: BP 141/68; PULSE 97; RESP 16; O2SAT 95
--- NOTE | 2016-12-30 15:06 | PD.PSY.CON ---
Provisional Diagnosis Admission Date Dec 02, 2016 at 19:58 [place] I. Major depressive disorder, severe, with melancholic features [place] II. Deferred [place] III. DM, HTN, a stage III chronic renal failure, lupus, seizures Wing[place] IV. Family dynamic conflicts [place] V. 55 History of Present Illness Service Psychiatry Consult Requested By Primary Care Physician Andrea BRANNON The patient is a 46-year-old woman, domiciled with her 15-year- old son, , unemployed, without no previous psychiatric history, no previous psychiatric hospitalizations, no previous suicide attempts, treated for adjustment disorder with depression with Remeron 30 mg and Prozac 10 mg, with a past medical history significant for diabetes mellitus (poorly controlled , prior multiple admission for DKA), hypertension, asthma, CKD stage III, strokes 2013 (with residual deficit right upper extremity), seizure, and lupus, multiple medical hospitalizations. Patient was walking downstairs leaving her father's house when she slipped and fell. Patient was brought to the emergency room on 12/02/2016. X-ray shows fracture of the right distal tibia, and oblique fractures of the proximal and distal fibula. Consulted to psychiatry due to depressive symptoms, low appetite, low level of energy, self-neglect. On psychiatric evaluation today patient is calm, cooperative and pleasant. Patient says that she has been feeling depressed in the last weeks due to the exacerbation of her medical conditions, her hospitalization and also influences by problems with family. Patient states that she feels like living in a hospital she missed her 15 years old son her house. She does report increased in severity sadness, early awakenings, difficulty sleeping at night, poor appetite, weight loss, fatigue, decreased self-esteem, but she denies hopelessness and helplessness. He denies suicidal or homicidal ideation, she denies visual and auditory hallucinations. Patient is fully oriented 3, without attention deficit, no gross cognitive impairment present. Patient denies the use of alcohol and illicit drugs. Review of Systems Constitutional: COMPLAINS OF: Fatigue, Weight loss, Change in appetite, DENIES : Diaphoretic episodes, Fever, Weight gain, Chills, Dizziness, Night Sweats Endocrine: DENIES: Abnorml menstrual pattern, Heat/cold intolerance, Polydipsia , Polyuria, Polyphagia Eyes: DENIES: Blurred vision, Diplopia, Eye inflammation, Eye pain, Vision loss , Photosensitivity, Double Vision Ears, nose, mouth, throat: DENIES: Tinnitus, Hearing loss, Vertigo, Nasal discharge, Oral lesions, Throat pain, Hoarseness, Ear Pain, Running Nose, Epistaxis, Sinus Pain, Toothache, Odynophagia Respiratory: DENIES: Apneas, Cough, Snoring, Wheezing, Hemoptysis, Sputum production, Shortness of breath Cardiovascular: DENIES: Chest pain, Palpitations, Syncope, Dyspnea on Exertion , PND, Lower Extremity Edema, Orthopnea, Claudication Gastrointestinal: DENIES: Abdominal pain, Black stools, Bloody stools, Constipation, Diarrhea, Nausea, Vomiting, Difficulty Swallowing, Anorexia Genitourinary: DENIES: Abnormal vaginal bleeding, Dysmenorrhea, Dyspareunia, Sexual dysfunction, Urinary frequency, Urinary incontinence, Urgency, Hematuria , Dysuria, Nocturia, Vaginal discharge Musculoskeletal: DENIES: Joint pain, Muscle aches, Stiffness, Joint Swelling, Back pain, Neck pain Hematologic/lymphatic: DENIES: Bruising, Lymphadenopathy Immunologic/allergic: DENIES: Eczema, Urticaria Neurologic: DENIES: Abnormal gait, Headache, Localized weakness, Paresthesias, Seizures, Speech Problems, Tremor, Poor Balance Psychiatric: COMPLAINS OF: Depression, DENIES: Anxiety, Confusion, Mood changes, Hallucinations, Agitation, Suicidal Ideation, Homicidal Ideation, Delusions Past Family Social History Coded Allergies: Aspirin (Verified Allergy, Severe, 12/02/16) RASH Penicillin (Verified Allergy, Severe, 12/02/16) Sulfa (Verified Allergy, Severe, 12/02/16) RASH Banana (Verified Allergy, Intermediate, Hives, 12/02/16) Adhesives (Verified Allergy, Unknown, 12/02/16) Macrobid (Unverified Allergy, Unknown, 12/02/16) Levemir (Verified Adverse Reaction, Severe, Sweats, funny feeling, mood swings, daze, 12/04/16) *MDRO Multi-Drug Resistant Organism (Unverified Adverse Reaction, Unknown , 12/02/16) MRSA 2013 MRSA PCR Screen POSITIVE on 01/22/16 & 11/09/16 Active Scripts Oxycodone-Acetaminophen (Percocet)5-325 mg Tab1 Tab PO Q4H PRN (PAIN) #60 TAB Ref 0 Prov:Matt Umanzor Jr., MD 12/03/16 Insulin Glargine Inj (Lantus Inj)1,000 Unit/10 Ml Vial10 Units SQ HS #1 VIAL Ref 0 Prov:Eliana Clay MD 11/13/16 Reported Medications Insulin Aspart Inj (Novolog Inj)1,000 Unit/10 Ml VialUnknown Dose SQ ACHS #10 ML Ref 0 Max dose at bedtime ( ) units; sugars less than 70,(0) units; sugars 150-199,(2) units; sugars 200-249,(4) units; sugars 250-299,(7) units; sugars 300-349,(10) units; sugars greater than 349,(12)units 12/02/16 Phenytoin Extended (Dilantin)100 Mg Orh373 Mg PO BID #90 CAP Ref 0 12/02/16 Clonidine 0.1 Mg Tab0.1 Mg PO DAILY #60 TAB Ref 0 11/08/16 Fluoxetine 10 Mg Tab10 Mg PO DAILY #30 TAB Ref 0 11/08/16 Levetiracetam 500 Mg Imp296 Mg PO BID #60 TAB Ref 0 11/08/16 Atorvastatin 80 Mg Tab80 Mg PO DAILY #30 TAB Ref 0 05/24/16 Current Medications Medications (Trade) Dose Ordered Sig/Marin Route Start Time Stop Time Status Last Admin (PROzac) 10 mg DAILY PO 12/03/16 09:00 12/30/16 09:20 (Keppra) 500 mg BID PO 12/02/16 21:00 12/30/16 09:19 (Rivka-Colace) 1 tab BID PO 12/03/16 21:00 12/29/16 08:40 (Milk Of Magnesia Liq) 30 ml Q12H PRN PO 12/03/16 16:00 (Dulcolax Supp) 10 mg DAILY PRN RECTAL 12/03/16 16:00 (Catapres) 0.1 mg Q8HR PO 12/06/16 09:45 12/30/16 06:12 (Catapres) 0.1 mg Q6H PRN PO 12/11/16 13:30 12/27/16 04:20 (Dilantin) 200 mg BID PO 12/12/16 21:00 12/30/16 09:18 (Lipitor) 80 mg DAILY PO 12/21/16 09:00 12/30/16 10:12 (Tums Chew) 1,000 mg Q12HR CHEW 12/22/16 21:00 12/30/16 09:18 (Drisdol) 50,000 units Q7D PO 12/23/16 09:00 12/30/16 09:19 (Tylenol) 650 mg Q6H PRN PO 12/24/16 14:15 (Megace Liq) 400 mg DAILY PO 12/25/16 09:00 12/30/16 09:20 (D50w (Vial) Inj) 50 ml UNSCH PRN IV 12/26/16 04:30 (Glucagon Inj) 1 mg UNSCH PRN OTHER 12/26/16 04:30 (Lantus Inj) 6 units HS SQ 12/26/16 07:05 12/29/16 21:00 (Norvasc) 10 mg DAILY PO 12/29/16 09:00 12/30/16 09:20 (Remeron Soltab Odt) 30 mg HS PO 12/28/16 21:00 12/29/16 21:00 (Zofran Liq) 4 mg Q6H PRN PO 12/28/16 15:45 (Reglan Liq) 5 mg ACHS PO 12/28/16 16:00 12/30/16 12:31 (Protonix) 40 mg DAILY PO 12/29/16 09:00 12/30/16 09:20 (Lopressor) 12.5 mg Q12HR PO 12/28/16 21:00 12/30/16 09:20 (Pill Splitter) 1 ea UNSCH PRN OTHER 12/28/16 16:15 (Lovenox Inj) 30 mg Q12HR SQ 12/29/16 21:00 12/30/16 09:21 (Remeron) 15 mg HS PO 12/30/16 21:00 UNV Family History Patient denies family psychiatric history Social History Patient was born and raised in [facility], she is , she lives in [place] with her son, she is unemployed at this time, she she has some college credits Patient's Strengths (min. 2) Verbal communication Physical Exam Pronounced psychomotor retardation, hypoactivity, but not witnessed, no tremors , no EPS, no stiffness Vital Signs Vital Signs Date Time Temp Pulse Resp B/P Pulse Ox O2 Delivery O2 Flow Rate FiO2 12/30/16 08:00 98.7 112 20 128/84 99 12/28/16 07:20 Nasal Cannula 1.50 12/26/16 11:00 21 I/O 12/29/16 12/29/16 12/29/16 07:59 15:59 23:59 Intake Total 460 ml 120 ml Output Total 600 ml Balance 460 ml -480 ml Lab Results 12/30/16 0932 12/31/16 0806 Mental Status Examination Appearance woman, good hygiene, she looks chronically, acute medically ill , distant, hypoactive, Speech: Hesitant, Slow Orientation: x3 Memory: Unremarkable Thought Process: Goal Directed, Linear Thought Content: Unremarkable Language Fluent and spontaneous and well structure Fund of Knowledge Adequate for level of education Hallucination Type: None Attention and Concentration: Good Suicidal Ideation: No Previous Suicide Attempts: No Homicidal Ideation: No Previous Homicide Attempts: No Insight: Poor Judgment: Poor Affect: Other (dysthymic) Affect if Inappropriate: Flat Mood: Sad Motor Activity: Normal gait Assessment & Plan Problem List: (1) Adjustment disorder with depressed mood ICD Code: F43.21 (2) Major depression, melancholic type Assessment & Plan: The patient is a 46-year-old woman, domiciled with her 15-year-old son, , unemployed, without no previous psychiatric history, no previous psychiatric hospitalizations, no previous suicide attempts, treated for adjustment disorder with depression with Remeron 30 mg and Prozac 10 mg, with a past medical history significant for diabetes mellitus (poorly controlled, prior multiple admission for DKA), hypertension, asthma, CKD stage III, strokes 2013 (with residual deficit right upper extremity ), seizure, and lupus, multiple medical hospitalizations. Patient was walking downstairs leaving her father's house when she slipped and fell. Patient was brought to the emergency room on 12/02/2016. X-ray shows fracture of the right distal tibia, and oblique fractures of the proximal and distal fibula. Consulted to psychiatry due to depressive symptoms, low appetite, low level of energy, self-neglect. On psychiatric evaluation today patient is calm, cooperative and pleasant. She does report moderate to severe symptoms of depression mostly consistent on sad mood, marked psychomotor retardation, persistent inappropriate guiltiness, neurovegetative symptoms such as difficulty sleeping and sleep disruption at night, intrusive thoughts, low level of energy, weight loss, loss of pressure, but she denies hopelessness, helplessness, she denies suicidal and homicidal ideation. She says that it is very difficult to define for her depression from the symptoms secondary to his underlying medical conditions. She denies visual and auditory hallucinations. No paranoia, no delusions, no agitation, no aggressive behavior observed. Current presentation seems to be consistent with depression with melancholic features. She may benefit of a voluntary psychiatric admission in the med psych unit for stabilization with psychotropics and daily individual and group psychotherapy, but she declines this possibility. Will discontinue Prozac 10 mg , since Prozac will worsen insomnia and lack of appetite. We will start Effexor 37.5 mg since SNRIs are proving to be more effective in melancholic type of depression. Will increase Remeron to 45 mg to help with mood, appetite , weight loss but also to help with sleep. Extensive support, motivation and psychoeducation provided. Consult appreciated. ICD Code: F32.9 Assessment & Plan Estimated LOS: Sarthak Briceño MD Dec 30, 2016 15:06
[2016-12-30] MEDS: VENLAFAXINE HCL XR 37.5 MG CAP PO SCH (16:21)
[2016-12-30 20:00] VITALS: BP 136/90; PULSE 103; RESP 18; TEMP 98.5; O2SAT 94
[2016-12-30] MEDS: INSULIN GLARGINE 1,000 UNITS/10 ML VIAL SQ SCH (20:49)
[2016-12-30] MEDS: MIRTAZAPINE ODT 15 MG TAB PO SCH (20:52)
[2016-12-30] MEDS ORDERED: MIRTAZAPINE 15 MG TAB PO SCH (21:00)
[2016-12-31] VITALS (9 sets, daily range): BP systolic 87–141; BP diastolic 58–83; PULSE 101–117; RESP 18–20; TEMP 98.5–98.6; O2SAT 84–100
[2016-12-31] MEDS: cloNIDine HCL 0.1 MG TAB PO SCH ×3 (06:25→21:42)
[2016-12-31] MEDS: METOCLOPRAMIDE HCL SYRUP 10 MG/10 ML UDC PO SCH ×4 (06:25→21:41)
[2016-12-31] MEDS: INSULIN ASPART SUPPLEMENTAL SCALE SQ SCH ×4 (06:28→21:59)
[2016-12-31 08:24] LABS: POTASSIUM 4.4 MEQ/L (3.5-5.1)
[2016-12-31 08:27] LABS: BICARBONATE 29.7 MEQ/L (21.0-32.0)
[2016-12-31] MEDS: DOCUSATE SODIUM 50 MG/SENNA 8.6 MG TAB PO SCH ×2 (09:00→21:42)
--- NOTE | 2016-12-31 09:08 | HHI.PR ---
Subjective Remarks Patient seen and examined today for follow-up on anorexia. Discussed the case with psychiatrist, he indicates that the patient is a perfect candidate for inpatient psychiatric management. However he would have to be voluntary. There is no reason to have involuntary admission. Discussing this with the patient she defers not to undergo any psychiatric treatment at this time. Patient states that she did eat more yesterday area however a walters is lying in bed. Does not get out of bed and move around. Objective Vitals Vital Signs Date Time Temp Pulse Resp B/P Pulse Ox O2 Delivery O2 Flow Rate FiO2 12/31/16 06:46 108 116/62 12/30/16 20:00 98.5 103 18 136/90 94 12/30/16 14:55 97 16 141/68 95 I/O 12/30/16 12/30/16 12/30/16 12/31/16 12/31/16 12/31/16 07:00 15:00 23:00 07:00 15:00 23:00 Intake Total 120 ml 540 ml 240 ml Output Total 500 ml 1 ml Balance -380 ml -1 ml 540 ml 240 ml Intake Oral 120 ml 540 ml 240 ml Output Urine Total 500 ml Stool Total 1 ml # Voids 2 4 1 # Bowel Movements 0 3 0 Result Diagram: 12/30/16 0932 12/31/16 0806 Objective Remarks GENERAL: Well-developed, well-nourished, in no acute distress. alert and orientated HEENT: Head is normocephalic without any lesions or masses noted. Facial features are symmetric. Eyes: Extraocular muscles are intact. Conjunctivae were clear. NECK: Trachea midline no deviation. CARDIAC: Regular rhythm, regular rate. S1/S2 are heard. No murmurs gallops or rubs. LUNGS: Clear to auscultation bilaterally. No wheeze, rhonchi or rales. No use of accessory muscles on inspiration or expiration. ABDOMEN: Soft, nontender. Nondistended. Bowel sounds heard in all 4 quadrants. No organomegaly or masses. Negative rebound, negative guarding EXTREMITIES: No edema, pulses are equal bilaterally. No cyanosis or clubbing NEUROLOGY: Mood and affect appear appropriate. Cranial nerves II through XII grossly intact. Moving all extremities, speech is clear Procedures 12/03: IM Reymundo fixation right lower extremity Urinary Catheter: No Vascular Central Line Catheter: No A/P Assessment and Plan Anorexia, decreased appetite, not wanting to eat, this appears to be a choice and not a clinical abnormality Patient is on Keppra which can cause anorexia but patient has been on these for an extended period of time. No other symptoms reported. Product Communications Manager consulted. Advises a trial of Suplena oral supplement to drink QD. Continue Glucerna shakes as patient likes these. Megace started Palliative care was consulted for anorexia, decreased appetite. Patient refused hospice at this time. Feeding tube was discussed and she would agree to it as a last resort. Continue scheduled Reglan, Psychiatrist increased Remeron 45 mg daily Psychiatrist discontinued Prozac and started Effexor Multiple abdominal scans have been performed without any acute abnormality If patient has any more emesis will pursue gastric emptying study. Consult psychiatry for evaluation because of her reluctant to eat, flat affect , depressed mood Psychiatrist indicates patient has perfect candidate for inpatient psychiatric management, however it cannot be involuntary. Would have to be voluntary acceptance by patient, patient is deferring at this time Hypernatremia Secondary to poor by mouth intake Encourage increased by mouth water intake If does not improve, may have to consider starting IV and IV fluids Right closed tibial fracture status post reymunod fixation on December 03. Orthopedic recommending Nonweightbearing. Ortho was reconsulted to follow patient here at PO. Andra Martines spoke with Dr. Mills who states if wound looks good, can remove lex. Lex removed on 12/22/16 Pain control Tylenol 650 mg every 6 hours as needed for pain 110 Hypertension: Improved Norvasc 10 mg daily Lopressor 12.5 mg twice daily Clonidine 0.1 mg every 8 hours Clonidine, Apresoline as needed Metabolic acidosis with anion gap, resolved secondary to diabetic ketoacidosis, acute renal failure Status post diabetic ketoacidosis protocol Systemic inflammatory response syndrome, resolved Patient no longer meets criteria, patient did have tachycardia, leukocytosis, no infectious source Respiratory insufficiency: Resolved. -Most likely secondary to over sedation from narcotics. Acute renal failure superimposed on chronic kidney disease stage III, back to baseline Status post IV fluid Renal ultrasound shows medical renal disease Nephrology consulted and has signed off Acute urinary retention, resolved: Could have been secondary to medication side effect Maurer has been removed, Diabetes type 2, uncontrolled Hemoglobin A1c 10.8 Accu-Cheks with sliding scale insulin Lantus 6 units at bedtime, patient is allergic to Levemir Anemia, acute on chronic: . Stable Secondary to blood loss due to surgery and anemia of chronic disease due to renal failure. Status post transfusion with 2 PRBC Hemoglobin is stable GI was consulted due to anemia. Per GI she had colonoscopy and endoscopy done 2 months ago which was normal. She had no signs of any GI bleed. GI signed off. Hypocalcemia: Patient was initially refusing TUMS but I informed her it is necessary for fracture healing. PTH level is normal Vitamin D deficiency: 25-OH Vitamin D level 9.4. Patient states she took Vitamin D at home, but this is not in med rec. Continue Vitamin D2 50,000 weekly for 6-8 weeks then transition to lower daily supplementation. History of seizure disorder, CVA and lupus Continue home medication. Continue Keppra 500mg BID, Dilantin 100mg BID. Monitor dilantin level periodically. Therapeutic on 12/16/16. DVT prophylaxis Sequential compression devices, subcutaneous Lovenox Discharge Planning Discharge planning per case management Shiraz Espinal Dec 31, 2016 09:08
[2016-12-31] MEDS: levETIRAcetam 500 MG TAB PO SCH ×2 (09:24→21:42)
[2016-12-31] MEDS: MEGESTROL ACETATE SUSP 400 MG/10 ML CUP PO SCH (09:24)
[2016-12-31] MEDS: ENOXAPARIN SODIUM 30 MG/0.3 ML SYRINGE SQ SCH ×2 (09:24→21:42)
[2016-12-31] MEDS: CALCIUM CARBONATE 500 MG CHEWABLE TAB CHEW SCH ×2 (09:24→21:42)
[2016-12-31] MEDS: ATORVASTATIN 40 MG TAB PO SCH (09:25)
[2016-12-31] MEDS: VENLAFAXINE HCL XR 37.5 MG CAP PO SCH (09:30)
[2016-12-31] MEDS: PANTOPRAZOLE SOD 40 MG DELAYED RELEASE TAB PO SCH (09:30)
[2016-12-31] MEDS: PHENYTOIN SODIUM 100 MG CAP PO SCH ×2 (09:30→21:42)
[2016-12-31] MEDS: METOPROLOL TARTRATE 25 MG TAB PO SCH ×2 (09:30→21:50)
--- NOTE | 2016-12-31 10:39 | HHI.PYPN ---
Subjective Remarks Patient was visited for psychiatric evaluation this morning, she wasn't sleeping , but easily arousable. Patient reports having a better mood today, she says that for the last time several days she had a very good sleep last night. Patient reports to be hopeful and motivated to continue her medical treatment and medications to get better. She denies suicidal and homicidal ideation, she denies visual and auditory hallucinations. Case was discussed with primary medical team, they are aware of the convenience of of voluntary psychiatric admission to treat the depression, but the patient refuses. Review of Systems Other No somatic complaints Objective Alert: Yes [place]: Person, Place, Date, Situation Mood: Depressed Affect: Flat Memory Intact: Immediate, Recent, Remote Hallucinations: Other (no hallucinations) Delusions: No Delusion Type: Other (no elicited) Suicidal: Ideation (no SI) Homicidal: Ideation (no HI) Insight/Judgment Fair Labs Test 12/31/16 08:06 Sodium Level 148 MEQ/L Potassium Level 4.4 MEQ/L Chloride Level 113 MEQ/L Carbon Dioxide Level 29.7 MEQ/L Anion Gap 5 MEQ/L Blood Urea Nitrogen 11 MG/DL Creatinine 1.30 MG/DL Estimat Glomerular Filtration 53 ML/MIN Rate Random Glucose 179 MG/DL Calcium Level 8.1 MG/DL Vitals/IOs Vital Signs Date Time Temp Pulse Resp B/P Pulse Ox O2 Delivery O2 Flow Rate FiO2 12/31/16 06:46 108 116/62 12/30/16 20:00 98.5 18 94 12/28/16 07:20 Nasal Cannula 1.50 Intake and Output 12/30/16 12/30/16 12/31/16 08:00 16:00 00:00 Intake Total 120 ml 540 ml Output Total 501 ml Balance -381 ml 540 ml Assessment & Plan Problem List: (1) Adjustment disorder with depressed mood ICD Code: F43.21 (2) Major depression, melancholic type Assessment & Plan: Patient reports better sleep last night. Continues to be depressed, but better mood today. Continue current psychotropics. Effexor currently at 37.5 mg, but can be increased to 75 mg in 2-3 days if patient can tolerate and depressive symptoms persist. ICD Code: F32.9 Assessment & Plan Estimated LOS: days Justification for Cont. Inpt. Patient would benefit of voluntary psychiatric admission, but does not meet criteria for involuntary. Sarthak Mace MD Dec 31, 2016 10:39
[2016-12-31] MEDS: MIRTAZAPINE ODT 15 MG TAB PO SCH (21:42)
[2016-12-31] MEDS: INSULIN GLARGINE 1,000 UNITS/10 ML VIAL SQ SCH (21:51)
[2017-01-01 06:31] VITALS: BP 160/92; PULSE 100
[2017-01-01] MEDS: cloNIDine HCL 0.1 MG TAB PO SCH ×3 (06:31→22:00)
[2017-01-01] MEDS: METOCLOPRAMIDE HCL SYRUP 10 MG/10 ML UDC PO SCH ×4 (06:31→21:36)
[2017-01-01] MEDS: INSULIN ASPART SUPPLEMENTAL SCALE SQ SCH ×4 (06:33→21:49)
[2017-01-01 08:00] VITALS: BP 110/70; PULSE 96; RESP 20; TEMP 97.3; O2SAT 94
[2017-01-01 08:35] VITALS: O2SAT 93
[2017-01-01] MEDS: MEGESTROL ACETATE SUSP 400 MG/10 ML CUP PO SCH (09:49)
[2017-01-01] MEDS: VENLAFAXINE HCL XR 37.5 MG CAP PO SCH (09:50)
[2017-01-01] MEDS: ATORVASTATIN 40 MG TAB PO SCH (09:50)
[2017-01-01] MEDS: DOCUSATE SODIUM 50 MG/SENNA 8.6 MG TAB PO SCH ×2 (09:50→21:00)
[2017-01-01] MEDS: CALCIUM CARBONATE 500 MG CHEWABLE TAB CHEW SCH ×2 (09:51→21:38)
[2017-01-01] MEDS: PHENYTOIN SODIUM 100 MG CAP PO SCH ×2 (09:51→21:37)
[2017-01-01] MEDS: levETIRAcetam 500 MG TAB PO SCH ×2 (09:51→21:37)
[2017-01-01] MEDS: PANTOPRAZOLE SOD 40 MG DELAYED RELEASE TAB PO SCH (09:52)
[2017-01-01] MEDS: ENOXAPARIN SODIUM 30 MG/0.3 ML SYRINGE SQ SCH ×2 (09:54→21:36)
[2017-01-01] MEDS: METOPROLOL TARTRATE 25 MG TAB PO SCH ×2 (09:57→21:37)
--- NOTE | 2017-01-01 10:11 | HHI.PR ---
Subjective Remarks Patient seen and examined today for follow-up on anorexia, depression, patient denies any new complaints. Discussed with the family yesterday about outpatient conditions and concerns. Patient denies any new complaints today. States that she will try to eat today Objective Vitals Vital Signs Date Time Temp Pulse Resp B/P Pulse Ox O2 Delivery O2 Flow Rate FiO2 01/01/17 08:35 93 Nasal Cannula 2.00 01/01/17 08:00 97.3 96 20 110/70 94 01/01/17 06:31 100 160/92 12/31/16 20:15 97 Nasal Cannula 2.00 12/31/16 20:00 98.6 105 20 139/80 100 12/31/16 16:50 90 12/31/16 14:35 106/68 12/31/16 14:29 101 87/58 95 I/O 12/31/16 12/31/16 12/31/16 01/01/17 01/01/17 01/01/17 06:59 14:59 22:59 06:59 14:59 22:59 Intake Total 240 ml 300 ml 0 ml Output Total 300 ml Balance 240 ml -300 ml 300 ml 0 ml Intake Oral 240 ml 300 ml 0 ml Output Urine Total 300 ml # Voids 1 2 1 # Bowel Movements 0 0 Result Diagram: 12/30/16 0932 12/31/16 0806 Objective Remarks GENERAL: Well-developed, well-nourished, in no acute distress. alert and orientated HEENT: Head is normocephalic without any lesions or masses noted. Facial features are symmetric. Eyes: Extraocular muscles are intact. Conjunctivae were clear. NECK: Trachea midline no deviation. CARDIAC: Regular rhythm, regular rate. S1/S2 are heard. No murmurs gallops or rubs. LUNGS: Clear to auscultation bilaterally. No wheeze, rhonchi or rales. No use of accessory muscles on inspiration or expiration. ABDOMEN: Soft, nontender. Nondistended. Bowel sounds heard in all 4 quadrants. No organomegaly or masses. Negative rebound, negative guarding EXTREMITIES: No edema, pulses are equal bilaterally. No cyanosis or clubbing NEUROLOGY: Mood and affect appear appropriate. Cranial nerves II through XII grossly intact. Moving all extremities, speech is clear Procedures 12/03: IM Reymundo fixation right lower extremity Urinary Catheter: No Vascular Central Line Catheter: No A/P Assessment and Plan Anorexia, decreased appetite, not wanting to eat, this appears to be a choice and not a clinical abnormality Patient is on Keppra which can cause anorexia but patient has been on these for an extended period of time. No other symptoms reported. Manager Intern consulted. Recommends continue diabetic diet, restart Glucerna shakes, recommend Theragran-M Megace started Palliative care was consulted for anorexia, decreased appetite. Patient refused hospice at this time. Feeding tube was discussed and she would agree to it as a last resort. Continue scheduled Reglan, Psychiatrist increased Remeron 45 mg daily Psychiatrist discontinued Prozac and started Effexor Multiple abdominal scans have been performed without any acute abnormality If patient has any more emesis will pursue gastric emptying study. Consult psychiatry for evaluation because of her reluctant to eat, flat affect , depressed mood Psychiatrist indicates patient has perfect candidate for inpatient psychiatric management, however it cannot be involuntary. Would have to be voluntary acceptance by patient, patient is still deferring at this time Prealbumin BUN 15 Hypernatremia Secondary to poor by mouth intake Encourage increased by mouth water intake If does not improve, may have to consider starting IV and IV fluids Right closed tibial fracture status post reymundo fixation on December 03. Orthopedic recommending Nonweightbearing. Ortho was reconsulted to follow patient here at [facility]. Andra Martines spoke with Dr. Mills who states if wound looks good, can remove rafa. [place] removed on 12/22/16 Pain control Tylenol 650 mg every 6 hours as needed for pain 110 Hypertension: Improved Norvasc 10 mg daily Lopressor 12.5 mg twice daily Clonidine 0.1 mg every 8 hours Clonidine, Apresoline as needed Metabolic acidosis with anion gap, resolved secondary to diabetic ketoacidosis, acute renal failure Status post diabetic ketoacidosis protocol Systemic inflammatory response syndrome, resolved Patient no longer meets criteria, patient did have tachycardia, leukocytosis, no infectious source Respiratory insufficiency: Resolved. -Most likely secondary to over sedation from narcotics. Wean off oxygen to maintain O2 sats greater than 88% Acute renal failure superimposed on chronic kidney disease stage III, back to baseline Status post IV fluid Renal ultrasound shows medical renal disease Nephrology consulted and has signed off Acute urinary retention, resolved: Could have been secondary to medication side effect Maurer has been removed, Diabetes type 2, uncontrolled Hemoglobin A1c 10.8 Accu-Cheks with sliding scale insulin Lantus 6 units at bedtime, patient is allergic to Levemir Anemia, acute on chronic: . Stable Secondary to blood loss due to surgery and anemia of chronic disease due to renal failure. Status post transfusion with 2 PRBC Hemoglobin is stable GI was consulted due to anemia. Per GI she had colonoscopy and endoscopy done 2 months ago which was normal. She had no signs of any GI bleed. GI signed off. Hypocalcemia: Patient was initially refusing TUMS but I informed her it is necessary for fracture healing. PTH level is normal Vitamin D deficiency: 25-OH Vitamin D level 9.4. Patient states she took Vitamin D at home, but this is not in med rec. Continue Vitamin D2 50,000 weekly for 6-8 weeks then transition to lower daily supplementation. History of seizure disorder, CVA and lupus Continue home medication. Continue Keppra 500mg BID, Dilantin 100mg BID. Monitor dilantin level periodically. Therapeutic on 12/16/16. DVT prophylaxis Sequential compression devices, subcutaneous Lovenox Discharge Planning Discharge planning per case management Shiraz Espinal Jan 01, 2017 10:11
[2017-01-01] MEDS: MULTIVITAMINS/MINERALS THERAPEUTIC TAB PO SCH (13:25)
[2017-01-01 20:00] VITALS: BP 107/59; PULSE 101; RESP 16; TEMP 97.9; O2SAT 92
[2017-01-01] MEDS: MIRTAZAPINE ODT 15 MG TAB PO SCH (21:00)
[2017-01-01] MEDS: INSULIN GLARGINE 1,000 UNITS/10 ML VIAL SQ SCH (21:00)
[2017-01-01 21:13] VITALS: O2SAT 97
[2017-01-02] MEDS: cloNIDine HCL 0.1 MG TAB PO SCH ×3 (06:39→22:00)
[2017-01-02] MEDS: INSULIN ASPART SUPPLEMENTAL SCALE SQ SCH ×4 (07:00→21:00)
[2017-01-02 08:00] VITALS: BP 147/93; PULSE 96; RESP 16; TEMP 96.9; O2SAT 93; O2SAT 98
[2017-01-02 09:00] VITALS: RESP 17; O2SAT 99
[2017-01-02] MEDS: MUPIROCIN 2% OINT 1 APPLIC/GM SYR EACH NARE SCH ×2 (09:00→22:06)
[2017-01-02] MEDS: DOCUSATE SODIUM 50 MG/SENNA 8.6 MG TAB PO SCH ×2 (09:00→21:00)
[2017-01-02] MEDS: MEGESTROL ACETATE SUSP 400 MG/10 ML CUP PO SCH (09:23)
[2017-01-02] MEDS: ENOXAPARIN SODIUM 30 MG/0.3 ML SYRINGE SQ SCH ×2 (09:25→22:06)
[2017-01-02] MEDS: METOCLOPRAMIDE HCL SYRUP 10 MG/10 ML UDC PO SCH ×4 (09:25→22:04)
[2017-01-02] MEDS: ATORVASTATIN 40 MG TAB PO SCH (09:27)
[2017-01-02] MEDS: MULTIVITAMINS/MINERALS THERAPEUTIC TAB PO SCH (09:27)
[2017-01-02] MEDS: CALCIUM CARBONATE 500 MG CHEWABLE TAB CHEW SCH ×2 (09:28→22:04)
[2017-01-02] MEDS: VENLAFAXINE HCL XR 37.5 MG CAP PO SCH (09:29)
[2017-01-02] MEDS: levETIRAcetam 500 MG TAB PO SCH ×2 (09:29→22:05)
[2017-01-02] MEDS: PHENYTOIN SODIUM 100 MG CAP PO SCH ×2 (09:29→22:04)
[2017-01-02] MEDS: PANTOPRAZOLE SOD 40 MG DELAYED RELEASE TAB PO SCH (09:29)
[2017-01-02] MEDS: METOPROLOL TARTRATE 25 MG TAB PO SCH ×2 (09:30→22:05)
--- NOTE | 2017-01-02 10:08 | HHI.PR ---
Subjective Remarks Patient seen and examined today for follow-up on anorexia. Patient states that she is eating better. It appears if the patient was placed back on oxygen last night. Reviewed documentation does not indicate that patient had any episodes of hypoxia. Discussed with respiratory therapy regarding agreement with continuation of incentive spirometry if patient [place] agree, however she has been deferring. As well as need appropriate documentation for continuation of oxygen. Objective Vitals Vital Signs Date Time Temp Pulse Resp B/P Pulse Ox O2 Delivery O2 Flow Rate FiO2 01/01/17 21:13 97 Nasal Cannula 2.00 01/01/17 20:00 97.9 101 16 107/59 92 I/O 01/01/17 01/01/17 01/01/17 01/02/17 01/02/17 01/02/17 07:00 15:00 23:00 07:00 15:00 23:00 Intake Total 0 ml 210 ml 240 ml 0 ml Output Total 200 ml 250 ml 0 ml Balance 0 ml 10 ml -10 ml 0 ml Intake Oral 0 ml 210 ml 240 ml 0 ml Output Urine Total 200 ml 250 ml 0 ml # Voids 1 1 # Bowel Movements 0 0 Result Diagram: 12/30/16 0932 12/31/16 0806 Objective Remarks GENERAL: Well-developed, well-nourished, in no acute distress. alert and orientated HEENT: Head is normocephalic without any lesions or masses noted. Facial features are symmetric. Eyes: Extraocular muscles are intact. Conjunctivae were clear. NECK: Trachea midline no deviation. CARDIAC: Regular rhythm, regular rate. S1/S2 are heard. No murmurs gallops or rubs. LUNGS: Clear to auscultation bilaterally. No wheeze, rhonchi or rales. No use of accessory muscles on inspiration or expiration. ABDOMEN: Soft, nontender. Nondistended. Bowel sounds heard in all 4 quadrants. No organomegaly or masses. Negative rebound, negative guarding EXTREMITIES: No edema, pulses are equal bilaterally. No cyanosis or clubbing NEUROLOGY: Mood and affect appear appropriate. Cranial nerves II through XII grossly intact. Moving all extremities, speech is clear Procedures 12/03: IM Reymundo fixation right lower extremity Urinary Catheter: No Vascular Central Line Catheter: No A/P Assessment and Plan Anorexia, decreased appetite, not wanting to eat, this appears to be a choice and not a clinical abnormality Patient is on Keppra which can cause anorexia but patient has been on these for an extended period of time. No other symptoms reported. Woods Laborer consulted. Recommends continue diabetic diet, restart Glucerna shakes, recommend Theragran-M Continue Megace Continue scheduled Reglan, Continue Remeron 45 mg daily Psychiatrist discontinued Prozac and started Effexor Multiple abdominal scans have been performed without any acute abnormality If patient has any more emesis will pursue gastric emptying study. Consult psychiatry for evaluation because of her reluctant to eat, flat affect , depressed mood Psychiatrist indicates patient has perfect candidate for inpatient psychiatric management, however it cannot be involuntary. Would have to be voluntary acceptance by patient, patient is still deferring at this time Palliative care was consulted for anorexia, decreased appetite. Patient refused hospice at this time. Feeding tube was discussed and she would agree to it as a last resort. Prealbumin BUN 15 Nursing staff to do daily weights on standing scale Respiratory insufficiency with hypoxia: Chest x-rays were performed which do show bi-basilar atelectasis Patient encouraged to do incentive spirometry every couple hours Wean off oxygen to maintain O2 sats greater than 88% Hypernatremia Secondary to poor by mouth intake Encourage increased by mouth water intake If does not improve, may have to consider starting IV and IV fluids Right closed tibial fracture status post reymundo fixation on December 03. Orthopedic recommending Nonweightbearing. Ortho was reconsulted to follow patient here at [facility]. Andra Martines spoke with Dr. Mills who states if wound looks good, can remove rafa. [place] removed on 12/22/16 Pain control Tylenol 650 mg every 6 hours as needed for pain 110 Hypertension: Improved Norvasc 10 mg daily Lopressor 12.5 mg twice daily Clonidine 0.1 mg every 8 hours Clonidine, Apresoline as needed Metabolic acidosis with anion gap, resolved secondary to diabetic ketoacidosis, acute renal failure Status post diabetic ketoacidosis protocol Systemic inflammatory response syndrome, resolved Patient no longer meets criteria, patient did have tachycardia, leukocytosis, no infectious source Acute renal failure superimposed on chronic kidney disease stage III, back to baseline Status post IV fluid Renal ultrasound shows medical renal disease Nephrology consulted and has signed off Acute urinary retention, resolved: Could have been secondary to medication side effect Maurer has been removed, Diabetes type 2, uncontrolled Hemoglobin A1c 10.8 Accu-Cheks with sliding scale insulin Lantus 6 units at bedtime, patient is allergic to Levemir Anemia, acute on chronic: . Stable Secondary to blood loss due to surgery and anemia of chronic disease due to renal failure. Status post transfusion with 2 PRBC Hemoglobin is stable GI was consulted due to anemia. Per GI she had colonoscopy and endoscopy done 2 months ago which was normal. She had no signs of any GI bleed. GI signed off. Hypocalcemia: Patient was initially refusing TUMS but I informed her it is necessary for fracture healing. PTH level and calcitonin level are normal Vitamin D deficiency: 25-OH Vitamin D level 9.4. Patient states she took Vitamin D at home, but this is not in med rec. Continue Vitamin D2 50,000 weekly for 6-8 weeks then transition to lower daily supplementation. History of seizure disorder, CVA and lupus Continue home medication. Continue Keppra 500mg BID, Dilantin 100mg BID. Monitor dilantin level periodically. Therapeutic on 12/16/16. DVT prophylaxis Sequential compression devices, subcutaneous Lovenox Discharge Planning Discharge planning per case management Shiraz Espinal Jan 02, 2017 10:08
[2017-01-02] MEDS: CHLORHEXIDINE GLUCONATE 4% SOLN 120 ML BTL TOPICAL SCH (12:20)
[2017-01-02 20:00] VITALS: BP 138/79; PULSE 99; RESP 16; TEMP 98.7; O2SAT 98
[2017-01-02 20:10] VITALS: O2SAT 98
[2017-01-02] MEDS: INSULIN GLARGINE 1,000 UNITS/10 ML VIAL SQ SCH (21:00)
[2017-01-02] MEDS: MIRTAZAPINE ODT 15 MG TAB PO SCH (21:00)
[2017-01-03 06:00] VITALS: BP 126/72; PULSE 91
[2017-01-03 06:13] LABS: AUTOMATED NEUTROPHIL # 3.1 TH/MM3 (1.8-7.7); BASOPHIL # 0.1 TH/MM3 (0-0.2); BASOPHIL % 1.3 % (0.0-2.0); EOSINOPHIL # 0.3 TH/MM3 (0-0.4); EOSINOPHIL % 4.8 % (0.0-4.0); HEMATOCRIT 26.3 % (35.0-46.0); HEMO FLAGS DIFF FINAL; LYMPH % 30.6 % (9.0-44.0); LYMPHOCYTE # 1.9 TH/MM3 (1.0-4.8); MEAN CELL VOLUME 90.2 FL (80.0-100.0); MEAN CORPUSCULAR HEMOGLOBIN 29.4 PG (27.0-34.0); MEAN CORPUSCULAR HGB CONC 32.6 % (32.0-36.0); MONO % 12.9 % (0.0-8.0); NEUT % 50.4 % (16.0-70.0); PLATELET COUNT 196 TH/MM3 (150-450); RED BLOOD COUNT 2.92 MIL/MM3 (4.00-5.30); RED CELL DISTRIBUTION WIDTH 13.6 % (11.6-17.2); WHITE BLOOD COUNT 6.2 TH/MM3 (4.0-11.0)
[2017-01-03 06:34] LABS: POTASSIUM 4.6 MEQ/L (3.5-5.1)
[2017-01-03] MEDS: cloNIDine HCL 0.1 MG TAB PO SCH ×3 (06:47→22:44)
[2017-01-03] MEDS: INSULIN ASPART SUPPLEMENTAL SCALE SQ SCH ×4 (07:00→21:00)
[2017-01-03 09:00] VITALS: O2SAT 99
[2017-01-03] MEDS: MEGESTROL ACETATE SUSP 400 MG/10 ML CUP PO SCH (09:39)
[2017-01-03] MEDS: ENOXAPARIN SODIUM 30 MG/0.3 ML SYRINGE SQ SCH ×2 (09:39→22:46)
[2017-01-03] MEDS: METOCLOPRAMIDE HCL SYRUP 10 MG/10 ML UDC PO SCH ×4 (09:40→22:41)
[2017-01-03] MEDS: PANTOPRAZOLE SOD 40 MG DELAYED RELEASE TAB PO SCH (09:41)
[2017-01-03] MEDS: CALCIUM CARBONATE 500 MG CHEWABLE TAB CHEW SCH ×2 (09:41→22:44)
[2017-01-03] MEDS: DOCUSATE SODIUM 50 MG/SENNA 8.6 MG TAB PO SCH ×2 (09:42→21:00)
[2017-01-03] MEDS: PHENYTOIN SODIUM 100 MG CAP PO SCH ×2 (09:42→22:41)
[2017-01-03] MEDS: METOPROLOL TARTRATE 25 MG TAB PO SCH ×2 (09:42→22:45)
[2017-01-03] MEDS: MULTIVITAMINS/MINERALS THERAPEUTIC TAB PO SCH (09:43)
[2017-01-03] MEDS: levETIRAcetam 500 MG TAB PO SCH ×2 (09:43→22:43)
[2017-01-03] MEDS: ATORVASTATIN 40 MG TAB PO SCH (09:43)
[2017-01-03] MEDS: VENLAFAXINE HCL XR 37.5 MG CAP PO SCH (09:43)
[2017-01-03] MEDS: MUPIROCIN 2% OINT 1 APPLIC/GM SYR EACH NARE SCH ×2 (09:44→22:41)
[2017-01-03] MEDS: CHLORHEXIDINE GLUCONATE 4% SOLN 120 ML BTL TOPICAL SCH (09:44)
--- NOTE | 2017-01-03 09:44 | HHI.PR ---
Subjective Remarks Patient seen and examined today for follow-up on anorexia, weakness. Patient states that she did eat more yesterday. Daily weights indicate patient has gained almost 5 pounds in 1 day. counseled patient on being more active, doing incentive spirometry more often. Objective Vitals Vital Signs Date Time Temp Pulse Resp B/P Pulse Ox O2 Delivery O2 Flow Rate FiO2 01/03/17 07:00 99 Nasal Cannula 2.00 01/03/17 06:00 91 126/72 01/02/17 20:10 98 Nasal Cannula 2.00 01/02/17 20:00 98.7 99 16 138/79 98 01/02/17 19:00 98 Nasal Cannula 2.00 I/O 01/02/17 01/02/17 01/02/17 01/03/17 01/03/17 01/03/17 07:00 15:00 23:00 07:00 15:00 23:00 Intake Total 0 ml 120 ml 220 ml Output Total 0 ml 300 ml Balance 0 ml 120 ml -80 ml Intake Oral 0 ml 120 ml Oral Supplement 220 ml Output Urine Total 0 ml 300 ml # Voids 3 # Bowel Movements 0 0 0 Result Diagram: 01/03/17 0555 01/03/17 0555 Objective Remarks GENERAL: Well-developed, well-nourished, in no acute distress. alert and orientated HEENT: Head is normocephalic without any lesions or masses noted. Facial features are symmetric. Eyes: Extraocular muscles are intact. Conjunctivae were clear. NECK: Trachea midline no deviation. CARDIAC: Regular rhythm, regular rate. S1/S2 are heard. No murmurs gallops or rubs. LUNGS: Clear to auscultation bilaterally. No wheeze, rhonchi or rales. No use of accessory muscles on inspiration or expiration. ABDOMEN: Soft, nontender. Nondistended. Bowel sounds heard in all 4 quadrants. No organomegaly or masses. Negative rebound, negative guarding EXTREMITIES: No edema, pulses are equal bilaterally. No cyanosis or clubbing NEUROLOGY: Mood and affect appear appropriate. Cranial nerves II through XII grossly intact. Moving all extremities, speech is clear Procedures 12/03: IM Reymundo fixation right lower extremity Urinary Catheter: No Vascular Central Line Catheter: No A/P Assessment and Plan Anorexia, decreased appetite, not wanting to eat, this appears to be a choice and not a clinical abnormality Patient is on Keppra which can cause anorexia but patient has been on these for an extended period of time. No other symptoms reported. Dance Hall Hostess consulted. Recommends continue diabetic diet, restart Glucerna shakes, recommend Theragran-M Continue Megace Continue scheduled Reglan, Continue Remeron 45 mg daily Psychiatrist discontinued Prozac and started Effexor Multiple abdominal scans have been performed without any acute abnormality If patient has any more emesis will pursue gastric emptying study. Consult psychiatry for evaluation because of her reluctant to eat, flat affect , depressed mood Psychiatrist indicates patient has perfect candidate for inpatient psychiatric management, however it cannot be involuntary. Would have to be voluntary acceptance by patient, patient is still deferring at this time Palliative care was consulted for anorexia, decreased appetite. Patient refused hospice at this time. Feeding tube was discussed and she would agree to it as a last resort. Prealbumin BUN 15 Nursing staff to do daily weights on standing scale Respiratory insufficiency with hypoxia: Chest x-rays were performed which do show bi-basilar atelectasis Patient encouraged to do incentive spirometry every couple hours Wean off oxygen to maintain O2 sats greater than 88% Hypernatremia Secondary to poor by mouth intake Encourage increased by mouth water intake If does not improve, may have to consider starting IV and IV fluids Right closed tibial fracture status post reymundo fixation on December 03. Orthopedic recommending Nonweightbearing. Ortho was reconsulted to follow patient here at [facility]. Andra Martines spoke with Dr. Mills who states if wound looks good, can remove lex. [place] removed on 12/22/16 Pain control Tylenol 650 mg every 6 hours as needed for pain 110 Hypertension: Improved Norvasc 10 mg daily Lopressor 12.5 mg twice daily Clonidine 0.1 mg every 8 hours Clonidine, Apresoline as needed Metabolic acidosis with anion gap, resolved secondary to diabetic ketoacidosis, acute renal failure Status post diabetic ketoacidosis protocol Systemic inflammatory response syndrome, resolved Patient no longer meets criteria, patient did have tachycardia, leukocytosis, no infectious source Acute renal failure superimposed on chronic kidney disease stage III, back to baseline Status post IV fluid Renal ultrasound shows medical renal disease Nephrology consulted and has signed off Acute urinary retention, resolved: Could have been secondary to medication side effect Maurer has been removed, Diabetes type 2, uncontrolled Hemoglobin A1c 10.8 Accu-Cheks with sliding scale insulin Lantus 6 units at bedtime, patient is allergic to Levemir Anemia, acute on chronic: . Stable Secondary to blood loss due to surgery and anemia of chronic disease due to renal failure. Status post transfusion with 2 PRBC Hemoglobin is stable GI was consulted due to anemia. Per GI she had colonoscopy and endoscopy done 2 months ago which was normal. She had no signs of any GI bleed. GI signed off. Hypocalcemia: Patient was initially refusing TUMS but I informed her it is necessary for fracture healing. PTH level and calcitonin level are normal Vitamin D deficiency: 25-OH Vitamin D level 9.4. Patient states she took Vitamin D at home, but this is not in med rec. Continue Vitamin D2 50,000 weekly for 6-8 weeks then transition to lower daily supplementation. History of seizure disorder, CVA and lupus Continue home medication. Continue Keppra 500mg BID, Dilantin 100mg BID. Monitor dilantin level periodically. Therapeutic on 12/16/16. DVT prophylaxis Sequential compression devices, subcutaneous Lovenox Discharge Planning Discharge planning per case management Shiraz Espinal Jan 03, 2017 09:44
[2017-01-03 10:01] VITALS: BP 137/75; PULSE 99; RESP 15; TEMP 97.7; O2SAT 90
[2017-01-03 20:00] VITALS: BP 151/85; PULSE 103; RESP 18; TEMP 98.1; O2SAT 94
[2017-01-03 21:35] VITALS: O2SAT 98
[2017-01-03] MEDS: MIRTAZAPINE ODT 15 MG TAB PO SCH (22:43)
[2017-01-03] MEDS: INSULIN GLARGINE 1,000 UNITS/10 ML VIAL SQ SCH (22:57)
[2017-01-04 06:00] VITALS: BP 158/90; PULSE 103; RESP 14; TEMP 98.7; O2SAT 98
[2017-01-04] MEDS: cloNIDine HCL 0.1 MG TAB PO SCH ×3 (06:40→22:16)
[2017-01-04] MEDS: METOCLOPRAMIDE HCL SYRUP 10 MG/10 ML UDC PO SCH ×4 (06:40→20:50)
[2017-01-04 08:44] VITALS: BP 148/76; PULSE 101; RESP 19; TEMP 98.6; O2SAT 95
[2017-01-04] MEDS: CALCIUM CARBONATE 500 MG CHEWABLE TAB CHEW SCH ×2 (08:56→20:45)
[2017-01-04] MEDS: levETIRAcetam 500 MG TAB PO SCH ×2 (08:56→20:48)
[2017-01-04] MEDS: ATORVASTATIN 40 MG TAB PO SCH (08:56)
[2017-01-04] MEDS: MEGESTROL ACETATE SUSP 400 MG/10 ML CUP PO SCH (08:56)
[2017-01-04] MEDS: PHENYTOIN SODIUM 100 MG CAP PO SCH ×2 (08:56→20:48)
[2017-01-04] MEDS: MULTIVITAMINS/MINERALS THERAPEUTIC TAB PO SCH (08:57)
[2017-01-04] MEDS: METOPROLOL TARTRATE 25 MG TAB PO SCH ×2 (08:57→20:49)
[2017-01-04] MEDS: PANTOPRAZOLE SOD 40 MG DELAYED RELEASE TAB PO SCH (08:57)
[2017-01-04] MEDS: DOCUSATE SODIUM 50 MG/SENNA 8.6 MG TAB PO SCH ×2 (08:58→20:48)
[2017-01-04] MEDS: VENLAFAXINE HCL XR 37.5 MG CAP PO SCH (08:58)
[2017-01-04] MEDS: MUPIROCIN 2% OINT 1 APPLIC/GM SYR EACH NARE SCH ×2 (08:58→20:47)
[2017-01-04] MEDS: ENOXAPARIN SODIUM 30 MG/0.3 ML SYRINGE SQ SCH ×2 (08:59→20:52)
[2017-01-04] MEDS: INSULIN ASPART SUPPLEMENTAL SCALE SQ SCH ×4 (09:12→21:10)
[2017-01-04 10:29] LABS: POTASSIUM 4.8 MEQ/L (3.5-5.1)
[2017-01-04 10:33] LABS: BICARBONATE 29.2 MEQ/L (21.0-32.0)
[2017-01-04] MEDS: CHLORHEXIDINE GLUCONATE 4% SOLN 120 ML BTL TOPICAL SCH (11:53)
[2017-01-04 13:41] VITALS: BP 150/80; PULSE 98; RESP 18
--- NOTE | 2017-01-04 16:34 | HHI.PR ---
Subjective Remarks Follow-up for DKA, anorexia. RN informs me the patient had a soft semi-formed brown stool 1. Patient states she last vomited a few days ago. Patient denies any fevers or chills, chest pain, shortness of breath, abdominal pain, nausea, vomiting, diarrhea. She admits to only intermittent pain in the right leg and currently pain is ok. She requests regular diet, but I informed her in light of recent DKA, it will remain on diabetic diet. Asks about weightbearing status. Objective Vitals Vital Signs Date Time Temp Pulse Resp B/P Pulse Ox O2 Delivery O2 Flow Rate FiO2 01/04/17 13:41 98 18 150/80 01/04/17 08:44 98.6 101 19 148/76 95 01/04/17 07:00 Nasal Cannula 2.00 21 01/04/17 06:00 98.7 103 14 158/90 98 01/03/17 22:30 96 Nasal Cannula 2.00 01/03/17 21:35 98 21 01/03/17 20:00 98.1 103 18 151/85 94 01/03/17 20:00 94 Room Air I/O 01/03/17 01/03/17 01/03/17 01/04/17 01/04/17 01/04/17 07:00 15:00 23:00 07:00 15:00 23:00 Intake Total 220 ml 1280 ml 240 ml 650 ml Output Total 300 ml Balance -80 ml 1280 ml 240 ml 650 ml Intake Oral 1280 ml 240 ml 650 ml Oral Supplement 220 ml Output Urine Total 300 ml # Voids 3 1 4 # Bowel Movements 0 0 0 1 Result Diagram: 01/03/17 0555 01/04/17 1010 Objective Remarks GENERAL: Well-developed, well-nourished patient who appears much improved from when I last examined the patient. SKIN: Warm and dry. Wound sites to the right lower extremity are healed. No erythema. HEAD: Normocephalic. CARDIOVASCULAR: Tachycardic rate with regular rhythm. RESPIRATORY: No accessory muscle use. CTAB. GASTROINTESTINAL: Faint bowel sounds present. Abdomen soft, non-tender, nondistended. MUSCULOSKELETAL: Mild edema R ankle. Intact B/L DP and TP pulses. NEUROLOGICAL: Awake and alert. Normal speech. PSYCHIATRIC: Normal mood and affect. Procedures 12/03: IM Reymundo fixation right lower extremity Urinary Catheter: No Vascular Central Line Catheter: No A/P Problem List: (1) DKA (diabetic ketoacidoses) ICD Code: E13.10 Status: Acute (2) SIRS (systemic inflammatory response syndrome) ICD Code: R65.10 Status: Acute (3) Acute kidney injury superimposed on chronic kidney disease ICD Code: N17.9 Status: Acute (4) Urinary retention ICD Code: R33.9 Status: Acute (5) Loss of appetite ICD Code: R63.0 Status: Acute (6) Fibula fracture ICD Code: S82.409A Status: Acute (7) Tibia fracture ICD Code: S82.209A Status: Acute (8) Anemia ICD Code: D64.9 Status: Acute (9) Hypocalcemia ICD Code: E83.51 Status: Acute (10) Vitamin D deficiency ICD Code: E55.9 Status: Acute Assessment and Plan Anorexia: decreased appetite, not wanting to eat. Patient is on Keppra and Prozac which can cause anorexia but patient has been on these for an extended period of time. Prealbumin 15 Line Palletizer consulted. Recommends continue diabetic diet, restart Glucerna shakes, recommend Theragran-M Continue Megace Continue scheduled Reglan, 5mg ACHS Continue Remeron 45 mg daily Multiple abdominal scans have been performed without any acute abnormality If patient has return of emesis will pursue gastric emptying study. Consult psychiatry for evaluation because of her reluctant to eat, flat affect , depressed mood; discontinued Prozac and started Effexor. Mood improved. Palliative care was consulted for anorexia, decreased appetite. Feeding tube was discussed and she would agree to it as a last resort. Nursing staff to do daily weights on standing scale DKA: Resolved. Status post diabetic ketoacidosis protocol Diabetes type 2, uncontrolled Hemoglobin A1c 10.8 Accu-Cheks with sliding scale insulin Lantus 6 units at bedtime, patient is allergic to Levemir SIRS: Resolved. Afebrile. -KUB with no acute abnormality. -UA 12/24 without infection -C.diff PCR test negative. -Lactic acid normal at 1.3 -Blood cultures NG x 5 days -CT abdomen/pelvis with anasarca, small bilateral effusions and small to moderate ascites, but no ileus, or other bowel abnormality. Emesis: Resolved. Likely related to DKA. -Lipase normal -Alkaline phosphatase trending downward -Continue Zofran prn with scheduled Reglan REGAN on CKD: REGAN resolved. Cr back to baseline, stable at 1.40. -Patient had a renal ultrasound done on 09/07/16 which show medical renal disease , but no obstruction. -New renal US 12/24 shows medical renal disease, no evidence of obstruction. -Continue IVF 1/ NS @ 125 mL/hr. -Follow Cr level. -Nephrology consultation pending. Hypernatremia and hyperchloremia: Improved. BMP reviewed. Na improved to 146 and Cl improved to 110. Secondary to poor by mouth intake Encourage increased by mouth water intake Hypertension: Norvasc 10 mg daily Lopressor 12.5 mg twice daily Clonidine 0.1 mg every 8 hours Clonidine, Apresoline as needed 01/04: Patient's BP improved on 01/02 and yesterday. Again elevated today. Will recheck in the am. If still elevated, will likely need to adjust medication. Anemia, acute on chronic: Stable. -Secondary to blood loss due to surgery. Also likely has anemia of chronic disease due to renal failure. -Status post transfusion with 2 PRBC -Responded appropriately to transfusion. -GI was consulted due to anemia. Per GI she had colonoscopy and endoscopy done 2 months ago which was normal. She had no signs of any GI bleed. GI signed off. Right closed tibial fracture status post reymundo fixation on December 03. -Nonweightbearing. Patient was last evaluated by ortho on 12/11/16. -12/21: Ortho was reconsulted to follow patient here at [facility]. I spoke with Dr. Mills who states if wound looks good, can remove rafa. -12/22: [place] removed -PT Facial edema: resolved. -Chest x-ray shows no evidence of cardiomegaly or edema. Atelectasis over the LLL. Echo with EF of 55-60%. Mild tricuspid regurgitation, trivial pericardial effusion, L pleural effusion. -Renal US shows trace ascites and small bilateral pleural effusions. IVF likely caused this. Urinary retention: Resolved -UA reviewed without infection. -S/p Maurer catheter. Respiratory insufficiency with hypoxia: Chest x-rays were performed which do show bi-basilar atelectasis Patient encouraged to do incentive spirometry every couple hours Wean off oxygen to maintain O2 sats greater than 88% Hypocalcemia: Patient was initially refusing TUMS but was informed it is necessary for fracture healing. PTH level and calcitonin level are normal Vitamin D deficiency: 25-OH Vitamin D level 9.4. Patient states she took Vitamin D at home, but this is not in med rec. -Continue Vitamin D2 50,000 weekly for 6-8 weeks then transition to lower daily supplementation. History of seizure disorder, CVA and lupus -Continue home medication. -On Keppra 500mg BID, Dilantin 100mg BID. -Remains therapeutic on 12/26/16. DVT prophylaxis with SCDs and Lovenox 30mg daily per ortho. Discharge Planning PT recommends rehabilitation. Patient has 4 wheeled walker at home. Problem Qualifiers (1) DKA (diabetic ketoacidoses): Andra Martines Jan 04, 2017 16:34
[2017-01-04 20:00] VITALS: BP 108/66; PULSE 97; RESP 18; TEMP 99.2; O2SAT 93
[2017-01-04] MEDS: MIRTAZAPINE ODT 15 MG TAB PO SCH (20:52)
[2017-01-04] MEDS: INSULIN GLARGINE 1,000 UNITS/10 ML VIAL SQ SCH (21:00)
[2017-01-04 21:25] VITALS: O2SAT 96
[2017-01-05] MEDS: cloNIDine HCL 0.1 MG TAB PO SCH ×3 (05:46→22:09)
[2017-01-05] MEDS: INSULIN ASPART SUPPLEMENTAL SCALE SQ SCH ×4 (06:25→21:04)
[2017-01-05] MEDS: METOCLOPRAMIDE HCL SYRUP 10 MG/10 ML UDC PO SCH ×4 (06:43→21:07)
[2017-01-05 08:00] VITALS: BP 115/73; PULSE 86; RESP 18; TEMP 98.8; O2SAT 91
[2017-01-05 08:33] LABS: AUTOMATED NEUTROPHIL # 8.5 TH/MM3 (1.8-7.7); BASOPHIL # 0.4 TH/MM3 (0-0.2); BASOPHIL % 3.2 % (0.0-2.0); EOSINOPHIL # 0.2 TH/MM3 (0-0.4); EOSINOPHIL % 1.8 % (0.0-4.0); HEMATOCRIT 25.9 % (35.0-46.0); LYMPH % 14.2 % (9.0-44.0); LYMPHOCYTE # 1.7 TH/MM3 (1.0-4.8); MEAN CORPUSCULAR HEMOGLOBIN 29.2 PG (27.0-34.0); MEAN CORPUSCULAR HGB CONC 32.1 % (32.0-36.0); MONO % 7.5 % (0.0-8.0); NEUT % 73.3 % (16.0-70.0); RED BLOOD COUNT 2.84 MIL/MM3 (4.00-5.30); RED CELL DISTRIBUTION WIDTH 14.8 % (11.6-17.2); WHITE BLOOD COUNT 11.7 TH/MM3 (4.0-11.0)
[2017-01-05 08:34] LABS: HEMO FLAGS AUTO DIFF; PLATELET COUNT 124 TH/MM3 (150-450)
[2017-01-05 08:43] LABS: POTASSIUM 4.8 MEQ/L (3.5-5.1)
[2017-01-05 08:46] LABS: BICARBONATE 33.9 MEQ/L (21.0-32.0)
[2017-01-05 08:51] LABS: EOSINOPHILS 1 % (0-4); NEUTROPHIL # MANUAL DIFF 8.7 TH/MM3 (1.8-7.7); PLATELET ESTIMATE SMEAR LOW (NORMAL); PLATELET MORPHOLOGY NORMAL (NORMAL); POLYS (SEG NEUTROPHILS) 74 % (16-70); SCAN/DIFF FINAL DIFF MANUAL; WBC DIFF SAMPLE 100
[2017-01-05 09:00] VITALS: O2SAT 95
[2017-01-05 09:00] LABS: MAGNESIUM 1.9 MG/DL (1.5-2.5)
[2017-01-05] MEDS: DOCUSATE SODIUM 50 MG/SENNA 8.6 MG TAB PO SCH ×2 (09:00→21:11)
[2017-01-05] MEDS: ENOXAPARIN SODIUM 30 MG/0.3 ML SYRINGE SQ SCH ×2 (09:00→21:08)
--- NOTE | 2017-01-05 09:59 | HHI.PR ---
Subjective Remarks Follow-up for DKA, anorexia. Patient states that she was given her Lantus last night even though she states she told the nurse she was afraid she would become hypoglycemic and desired a lesser amount. She states her blood sugar was 65 this morning and she had to drink orange juice. She denies having symptoms at that time. Patient denies any lightheadedness, fevers or chills, abdominal pain , nausea, diarrhea, hematochezia, or melena. States she is only wearing her oxygen at night. Objective Vitals Vital Signs Date Time Temp Pulse Resp B/P Pulse Ox O2 Delivery O2 Flow Rate FiO2 01/04/17 21:25 96 Nasal Cannula 2.00 01/04/17 20:00 99.2 97 18 108/66 93 01/04/17 20:00 94 Room Air 01/04/17 13:41 98 18 150/80 I/O 01/04/17 01/04/17 01/04/17 01/05/17 01/05/17 01/05/17 06:59 14:59 22:59 06:59 14:59 22:59 Intake Total 240 ml 650 ml 240 ml Output Total 400 ml Balance 240 ml 650 ml -400 ml 240 ml Intake Oral 240 ml 650 ml 240 ml Output Urine Total 400 ml # Voids 1 4 1 # Bowel Movements 0 1 Result Diagram: 01/05/17 0755 01/05/17 0755 Objective Remarks GENERAL: Well-developed, well-nourished patient in no apparent distress. SKIN: Warm and dry. CARDIOVASCULAR: Regular rhythm. RESPIRATORY: No accessory muscle use. CTAB. GASTROINTESTINAL: Abdomen soft, non-tender, nondistended. MUSCULOSKELETAL: Mild edema R ankle. 2+ R DP pulse. NEUROLOGICAL: Awake and alert. Normal speech. PSYCHIATRIC: Normal mood and affect. Procedures 12/03: IM Reymundo fixation right lower extremity Urinary Catheter: No Vascular Central Line Catheter: No A/P Problem List: (1) DKA (diabetic ketoacidoses) ICD Code: E13.10 Status: Acute (2) SIRS (systemic inflammatory response syndrome) ICD Code: R65.10 Status: Acute (3) Acute kidney injury superimposed on chronic kidney disease ICD Code: N17.9 Status: Acute (4) Urinary retention ICD Code: R33.9 Status: Acute (5) Loss of appetite ICD Code: R63.0 Status: Acute (6) Fibula fracture ICD Code: S82.409A Status: Acute (7) Tibia fracture ICD Code: S82.209A Status: Acute (8) Anemia ICD Code: D64.9 Status: Acute (9) Hypocalcemia ICD Code: E83.51 Status: Acute (10) Vitamin D deficiency ICD Code: E55.9 Status: Acute Assessment and Plan Anorexia: decreased appetite, not wanting to eat. Patient is on Keppra and Prozac which can cause anorexia but patient has been on these for an extended period of time. Prealbumin 15 Jewel Lathe Operator consulted. Recommends continue diabetic diet, restart Glucerna shakes, recommend Theragran-M Continue Megace Continue scheduled Reglan, 5mg ACHS Continue Remeron 45 mg daily Multiple abdominal scans have been performed without any acute abnormality If patient has return of emesis will pursue gastric emptying study. Consult psychiatry for evaluation because of her reluctant to eat, flat affect , depressed mood; discontinued Prozac and started Effexor. Mood improved. Palliative care was consulted for anorexia, decreased appetite. Feeding tube was discussed and she would agree to it as a last resort. Nursing staff to do daily weights on standing scale; weight stable over the past few days. DKA: Resolved. Status post diabetic ketoacidosis protocol Diabetes type 2, uncontrolled Hemoglobin A1c 10.8 Accu-Cheks with sliding scale insulin Lantus 6 units at bedtime, patient is allergic to Levemir 01/05: Patient hypoglycemic this morning. Discussed with Dr. Morel who has discontinued Lantus; advises only SSI. REGAN superimposed on chronic kidney disease stage III: Status post IV fluid Renal ultrasound shows medical renal disease Nephrology consulted and has signed off 01/05: Cr mildly elevated at 1.60 compared to 1.40 on prior days although patient has informed me 1.6 is her outpatient baseline. Hypernatremia and hyperchloremia: Secondary to poor by mouth intake Encourage increased by mouth water intake 01/05: BMP reviewed. Na worse at 147 and Cl stable at 110. Discussed with Dr. Morel who has started D5W x 2L. Repeat am BMP. Leukocytosis: Acute. Mild 11.7, previously 6.2 two days ago. -UA ordered -Repeat am CBC with diff -See HAP below. HAP: Acute. -Chest x-ray ordered and personally interpreted by myself and Dr. Morel showing right lower lobe consolidation and effusion worse than prior x-ray. -Patient started on cefepime 2 g every 12 hours IV, should have low cross reactivity despite PCN allergy according to pharmacist. -Legionella and pneumococcal urinary antigens ordered. -Sputum culture ordered SIRS: Resolved. Afebrile. -KUB with no acute abnormality. -UA 12/24 without infection -C.diff PCR test negative. -Lactic acid normal at 1.3 -Blood cultures NG x 5 days -CT abdomen/pelvis with anasarca, small bilateral effusions and small to moderate ascites, but no ileus, or other bowel abnormality. Emesis: Resolved. Likely related to DKA. -Lipase normal -Alkaline phosphatase trending downward -Continue Zofran prn with scheduled Reglan Hypertension: Norvasc 10 mg daily Lopressor 12.5 mg twice daily Clonidine 0.1 mg every 8 hours Clonidine as needed 01/05: BP elevated this afternoon at 160/92, but has been fluctuating with low BP last night and this morning. Keep regimen the same for now. Anemia, acute on chronic: -Secondary to blood loss due to surgery. Also likely has anemia of chronic disease due to renal failure. -Status post transfusion with 2 PRBC -Responded appropriately to transfusion. -GI was consulted due to anemia. Per GI she had colonoscopy and endoscopy done 2 months ago which was normal. She had no signs of any GI bleed. GI signed off. -01/05: Hemoglobin mildly worse at 8.3. Still awaiting Hemoccult stool. Platelets low at 124. Lovenox held. Right closed tibial fracture status post reymundo fixation on 12/03/16. -Nonweightbearing. -12/21: Ortho was reconsulted to follow patient here at [facility], but they have not come to see the patient. I spoke with Dr. Mills who states if wound looks good , can remove lex. -12/22: Lex removed -PT -01/05: Patient is about 4.5 weeks post op and was last seen by ortho on 12/11. I have reconsulted orthopedics again as patient needs to be followed here at [facility]. She still remains NWB and has asked about advancing wb status; need further recommendations and management. Facial edema: resolved. -Chest x-ray shows no evidence of cardiomegaly or edema. Atelectasis over the LLL. Echo with EF of 55-60%. Mild tricuspid regurgitation, trivial pericardial effusion, L pleural effusion. -Renal US shows trace ascites and small bilateral pleural effusions. IVF likely caused this. Urinary retention: Resolved -UA reviewed without infection. -S/p Maurer catheter. Respiratory insufficiency with hypoxia: Chest x-rays were performed which do show bi-basilar atelectasis Patient encouraged to do incentive spirometry every couple hours Wean off oxygen to maintain O2 sats greater than 88% Hypocalcemia: Patient was initially refusing TUMS but was informed it is necessary for fracture healing. PTH level and calcitonin level are normal Vitamin D deficiency: 25-OH Vitamin D level 9.4. Patient states she took Vitamin D at home, but this is not in med rec. -Continue Vitamin D2 50,000 weekly for 6-8 weeks then transition to lower daily supplementation. History of seizure disorder, CVA and lupus -Continue home medication. -On Keppra 500mg BID, Dilantin 100mg BID. -Remains therapeutic on 12/26/16. DVT prophylaxis with SCDs and Lovenox 30mg daily per ortho. Discharge Planning PT recommends rehabilitation. Patient has 4 wheeled walker at home. Problem Qualifiers (1) DKA (diabetic ketoacidoses): Andra Martines Jan 05, 2017 09:59
[2017-01-05] MEDS: CALCIUM CARBONATE 500 MG CHEWABLE TAB CHEW SCH ×2 (10:34→21:11)
[2017-01-05] MEDS: MEGESTROL ACETATE SUSP 400 MG/10 ML CUP PO SCH (10:35)
[2017-01-05] MEDS: VENLAFAXINE HCL XR 37.5 MG CAP PO SCH (10:35)
[2017-01-05] MEDS: PHENYTOIN SODIUM 100 MG CAP PO SCH ×2 (10:35→21:12)
[2017-01-05] MEDS: METOPROLOL TARTRATE 25 MG TAB PO SCH ×2 (10:36→21:12)
[2017-01-05] MEDS: ATORVASTATIN 40 MG TAB PO SCH (10:36)
[2017-01-05] MEDS: PANTOPRAZOLE SOD 40 MG DELAYED RELEASE TAB PO SCH (10:36)
[2017-01-05] MEDS: levETIRAcetam 500 MG TAB PO SCH ×2 (10:36→21:11)
[2017-01-05] MEDS: MULTIVITAMINS/MINERALS THERAPEUTIC TAB PO SCH (10:36)
[2017-01-05] MEDS: CHLORHEXIDINE GLUCONATE 4% SOLN 120 ML BTL TOPICAL SCH (10:42)
[2017-01-05] MEDS: MUPIROCIN 2% OINT 1 APPLIC/GM SYR EACH NARE SCH ×2 (11:28→21:09)
[2017-01-05 13:35] VITALS: BP 160/92; PULSE 89
[2017-01-05] MEDS: DEXTROSE 5% IN WATE 1000ML INJ 1,000 ML IV SCH ×2 (13:37→21:13)
--- NOTE | 2017-01-05 13:45 | RADRPT ---
EXAM DATE/TIME: 01/05/2017 13:13 [facility] COMPARISON: CHEST SINGLE AP, December 24, 2016, 15:15. INDICATIONS : Cough MEDICAL HISTORY : Hypertension. Diabetes mellitus type II. Hypercholesterolemia. Lupus SURGICAL HISTORY : Hysterectomy. Cholecystectomy. ENCOUNTER: Subsequent ACUITY: 1 month PAIN SCORE: 0/10 LOCATION: Bilateral chest FINDINGS: Mild right lower lung zone airspace disease with likely trace pleural effusion. Left lung is clear. C ardiomediastinal contours are within normal limits. Bony thorax is intact. CONCLUSION: 1. Right lower lung zone airspace consolidation concerning for pneumonia given history. There is ass ociated trace right pleural effusion. Eriberto Madison MD on January 05, 2017 at 13:42 Board Certified Radiologist. This report was verified electronically.
[2017-01-05 16:15] VITALS: O2SAT 95
[2017-01-05] MEDS: CEFEPIME INJ 2,000 MG in SODIUM CHLORIDE 0.9% INJ 100 ML IV SCH (16:24)
[2017-01-05 20:00] VITALS: BP 135/79; PULSE 94; RESP 16; TEMP 98.7; O2SAT 95
[2017-01-05 20:52] VITALS: O2SAT 87
[2017-01-05] MEDS: MIRTAZAPINE ODT 15 MG TAB PO SCH (21:00)
[2017-01-06] MEDS: CEFEPIME INJ 2,000 MG in SODIUM CHLORIDE 0.9% INJ 100 ML IV SCH ×2 (04:04→17:09)
[2017-01-06 05:57] LABS: BLOOD, URINE LARGE (NEG); GLUCOSE,URINE NEG (NEG); KETONE, URINE TRACE mg/dL (NEG); PH, URINE 5.5 (5.0-8.5)
[2017-01-06 05:59] LABS: NITRITE,URINE POS (NEG)
[2017-01-06 06:00] LABS: URINE COLOR YELLOW (YELLW/STRAW)
[2017-01-06 06:06] LABS: BACTERIA, URINE MOD /hpf; COMMENT (UR) CULTURE INDICATED; CULTURE IF INDICATED CULTURE INDICATED; SQUAMOUS EPITHELIAL CELL URINE 0-5 /hpf (0-5); WBC, URINE INNUM /hpf (0-5)
[2017-01-06] MEDS: METOCLOPRAMIDE HCL SYRUP 10 MG/10 ML UDC PO SCH ×4 (06:19→20:52)
[2017-01-06] MEDS: cloNIDine HCL 0.1 MG TAB PO SCH ×3 (06:19→22:20)
[2017-01-06 07:17] LABS: BASOPHIL # 0.1 TH/MM3 (0-0.2); BASOPHIL % 1.1 % (0.0-2.0); EOSINOPHIL # 0.2 TH/MM3 (0-0.4); EOSINOPHIL % 2.9 % (0.0-4.0); HEMATOCRIT 24.8 % (35.0-46.0); HEMO FLAGS DIFF FINAL; LYMPH % 18.7 % (9.0-44.0); LYMPHOCYTE # 1.6 TH/MM3 (1.0-4.8); MEAN CELL VOLUME 90.4 FL (80.0-100.0); MEAN CORPUSCULAR HEMOGLOBIN 30.3 PG (27.0-34.0); MEAN CORPUSCULAR HGB CONC 33.5 % (32.0-36.0); MONO % 6.7 % (0.0-8.0); NEUT % 70.6 % (16.0-70.0); PLATELET COUNT 187 TH/MM3 (150-450); RED BLOOD COUNT 2.74 MIL/MM3 (4.00-5.30); RED CELL DISTRIBUTION WIDTH 13.6 % (11.6-17.2); WHITE BLOOD COUNT 8.5 TH/MM3 (4.0-11.0)
[2017-01-06 07:22] LABS: POTASSIUM 4.8 MEQ/L (3.5-5.1)
[2017-01-06 07:27] LABS: BICARBONATE 28.2 MEQ/L (21.0-32.0)
[2017-01-06 08:00] VITALS: BP 171/92; PULSE 97; RESP 16; TEMP 98.1; O2SAT 96; O2SAT 97
[2017-01-06] MEDS ORDERED: INSULIN DETEMIR 100 UNITS/ML VIAL SQ SCH (09:00)
[2017-01-06] MEDS: ATORVASTATIN 40 MG TAB PO SCH (09:17)
[2017-01-06] MEDS: VENLAFAXINE HCL XR 37.5 MG CAP PO SCH (09:17)
[2017-01-06] MEDS: ERGOCALCIFEROL (VIT D2) 50,000 UNIT CAP PO SCH (09:17)
[2017-01-06] MEDS: CALCIUM CARBONATE 500 MG CHEWABLE TAB CHEW SCH ×2 (09:17→20:50)
[2017-01-06] MEDS: PHENYTOIN SODIUM 100 MG CAP PO SCH ×2 (09:17→20:51)
[2017-01-06] MEDS: PANTOPRAZOLE SOD 40 MG DELAYED RELEASE TAB PO SCH (09:17)
[2017-01-06] MEDS: MEGESTROL ACETATE SUSP 400 MG/10 ML CUP PO SCH (09:17)
[2017-01-06] MEDS: MULTIVITAMINS/MINERALS THERAPEUTIC TAB PO SCH (09:17)
[2017-01-06] MEDS: METOPROLOL TARTRATE 25 MG TAB PO SCH ×2 (09:18→20:51)
[2017-01-06] MEDS: levETIRAcetam 500 MG TAB PO SCH ×2 (09:18→20:51)
[2017-01-06] MEDS: DOCUSATE SODIUM 50 MG/SENNA 8.6 MG TAB PO SCH ×2 (09:18→20:51)
[2017-01-06] MEDS: INSULIN ASPART SUPPLEMENTAL SCALE SQ SCH ×4 (09:26→20:48)
[2017-01-06] MEDS: MUPIROCIN 2% OINT 1 APPLIC/GM SYR EACH NARE SCH ×2 (09:29→20:50)
[2017-01-06] MEDS: ENOXAPARIN SODIUM 30 MG/0.3 ML SYRINGE SQ SCH ×2 (09:35→20:51)
[2017-01-06] MEDS ORDERED: INSULIN GLARGINE 1,000 UNITS/10 ML VIAL SQ PRN (11:45)
--- NOTE | 2017-01-06 11:48 | HHI.PR ---
Subjective Remarks Follow-up for DKA, anorexia, pneumonia/pleural effusion. States she started the Suplena supplement. Patient admits to nonproductive cough only sometimes. She denies any fevers or chills. Denies any chest pain, shortness of breath, abdominal pain, nausea, vomiting, diarrhea, or dysuria. She does admit to increased urinary frequency from the IV fluids she received. She states she does not wear her oxygen at night admitting her oxygen saturation drops but states she does not feel short of breath when she does not wear it. Objective Vitals Vital Signs Date Time Temp Pulse Resp B/P Pulse Ox O2 Delivery O2 Flow Rate FiO2 01/06/17 08:00 98.1 97 16 171/92 97 01/06/17 08:00 96 Nasal Cannula 2.00 01/05/17 20:52 87 21 01/05/17 20:00 98.7 94 16 135/79 95 01/05/17 20:00 95 Room Air 2.00 Nasal Cannula 01/05/17 16:15 95 01/05/17 13:35 89 160/92 I/O 01/05/17 01/05/17 01/05/17 01/06/17 01/06/17 01/06/17 07:00 15:00 23:00 07:00 15:00 23:00 Intake Total 240 ml 220 ml 120 ml Output Total 350 ml Balance 240 ml 220 ml -230 ml Intake Oral 240 ml 120 ml Oral Supplement 220 ml Output Urine Total 350 ml # Voids 1 3 # Bowel Movements 0 0 Result Diagram: 01/06/17 0637 01/06/17 0637 Objective Remarks GENERAL: Well-developed, well-nourished patient in no apparent distress sleeping when I enter the room. SKIN: Warm and dry. CARDIOVASCULAR: Regular rhythm. RESPIRATORY: No accessory muscle use. Decreased breath sounds over the right lower lobe. No rales, rhonchi, or wheezing. Patient on 2 L of oxygen via nasal cannula. GASTROINTESTINAL: Bowel sounds on the right. Abdomen soft, nontender, nondistended. MUSCULOSKELETAL: Mild edema R ankle. 2+ R DP pulse. NEUROLOGICAL: Awake and alert. Normal speech. PSYCHIATRIC: Normal mood and affect. Procedures 12/03: IM Reymundo fixation right lower extremity Urinary Catheter: No Vascular Central Line Catheter: No A/P Problem List: (1) Hospital acquired PNA ICD Code: J18.9 Status: Acute (2) UTI (urinary tract infection) ICD Code: N39.0 Status: Acute (3) DKA (diabetic ketoacidoses) ICD Code: E13.10 Status: Acute (4) SIRS (systemic inflammatory response syndrome) ICD Code: R65.10 Status: Acute (5) Acute kidney injury superimposed on chronic kidney disease ICD Code: N17.9 Status: Acute (6) Urinary retention ICD Code: R33.9 Status: Acute (7) Loss of appetite ICD Code: R63.0 Status: Acute (8) Fibula fracture ICD Code: S82.409A Status: Acute (9) Tibia fracture ICD Code: S82.209A Status: Acute (10) Anemia ICD Code: D64.9 Status: Acute (11) Hypocalcemia ICD Code: E83.51 Status: Acute (12) Vitamin D deficiency ICD Code: E55.9 Status: Acute Assessment and Plan UTI: Acute 01/06. UA personally interpreted with evidence of infection. Urine culture is pending. -Patient currently on cefepime for pneumonia. Continue. Adjust treatment as needed based on culture. Leukocytosis: Resolved. Mild 11.7-->8.5 today after IVF and abx initiation. Could be attributed to HAP or UTI. HAP: Stable. -01/05: Chest x-ray with right lower lobe consolidation and effusion worse than prior x-ray. -Continue cefepime 2 g every 12 hours IV. -Legionella and streptococcus pneumoniae urinary antigens negative. -Sputum culture ordered. -Continue O2 via NC Respiratory insufficiency with hypoxia: Chest x-rays were performed which do show bi-basilar atelectasis Patient encouraged to do incentive spirometry every couple hours Wean off oxygen to maintain O2 sats greater than 88%. Patient advised she needs to be wearing oxygen at all times if she is requiring it. Anorexia: decreased appetite, not wanting to eat: stable Patient is on Keppra and Prozac which can cause anorexia but patient has been on these for an extended period of time. Prealbumin 15 Otr Owner Operator Truck Driver consulted. Recommends continue diabetic diet, restart Glucerna shakes, recommend Theragran-M Continue Megace Continue scheduled Reglan, 5mg ACHS Continue Remeron 45 mg daily Multiple abdominal scans have been performed without any acute abnormality If patient has return of emesis will pursue gastric emptying study. Consult psychiatry for evaluation because of her reluctant to eat, flat affect , depressed mood; discontinued Prozac and started Effexor. Mood improved. Palliative care was consulted for anorexia, decreased appetite. Feeding tube was discussed and she would agree to it as a last resort. Nursing staff to do daily weights on standing scale Patient started on Suplena supplement. 01/06: Order calorie count. DKA: Resolved. Status post diabetic ketoacidosis protocol Diabetes type 2, uncontrolled Hemoglobin A1c 10.8 Accu-Cheks with sliding scale insulin Lantus 6 units at bedtime, patient is allergic to Levemir 01/05: Patient hypoglycemic this morning. Discussed with Dr. Morel who has discontinued Lantus; advises only SSI. 01/06: BGL elevated at 273 this morning attributed to D5W and holding hs Lantus . Resume Lantus but at 4 units sq in the morning starting today. Continue SSI. REGAN superimposed on chronic kidney disease stage III: Status post IV fluid Renal ultrasound shows medical renal disease Nephrology consulted and has signed off 01/05: Cr mildly elevated at 1.60 compared to 1.40 on prior days although patient has informed me 1.6 is her outpatient baseline. 01/06: Cr improved to 1.50 with IVF. Hypernatremia and hyperchloremia: Resolved. Secondary to poor by mouth intake Encourage increased by mouth water intake 01/06: Na and Cl now wnl after D5W x 2L Hypertension: Norvasc 10 mg daily Lopressor 12.5 mg twice daily Clonidine 0.1 mg every 8 hours Clonidine as needed 01/06: BP elevated this morning at 171/92, but it has been fluctuating with low pressures as well. Will monitor and adjust or add medication as needed. Anemia, acute on chronic: Stable. -Secondary to blood loss due to surgery. Also likely has anemia of chronic disease due to renal failure. -Status post transfusion with 2 PRBC -Responded appropriately to transfusion. -GI was consulted due to anemia. Per GI she had colonoscopy and endoscopy done 2 months ago which was normal. She had no signs of any GI bleed. GI signed off. -01/06: Hemoglobin stable at 8.3. Hemoccult stool negative. Platelets improved from yesterday. Right closed tibial fracture status post reymundo fixation on 12/03/16. -Nonweightbearing. -12/21: Ortho was reconsulted to follow patient here at [facility], but they have not come to see the patient. I spoke with Dr. Mills who states if wound looks good , can remove rafa. -12/22: [place] removed -PT -01/05: Patient is about 4.5 weeks post op and was last seen by ortho on 12/11. I have reconsulted orthopedics again as patient needs to be followed here at [facility]. She still remains NWB and has asked about advancing wb status; need further recommendations and management. Hypocalcemia: Patient was initially refusing TUMS but was informed it is necessary for fracture healing. PTH level and calcitonin level are normal Vitamin D deficiency: 25-OH Vitamin D level 9.4. Patient states she took Vitamin D at home, but this is not in med rec. -Continue Vitamin D2 50,000 weekly for 6-8 weeks then transition to lower daily supplementation. SIRS: Resolved. Afebrile. -KUB with no acute abnormality. -UA 12/24 without infection -C.diff PCR test negative. -Lactic acid normal at 1.3 -Blood cultures NG x 5 days -CT abdomen/pelvis with anasarca, small bilateral effusions and small to moderate ascites, but no ileus, or other bowel abnormality. Emesis: Resolved. Likely related to DKA. -Lipase normal -Alkaline phosphatase trending downward -Continue Zofran prn with scheduled Reglan Facial edema: resolved. -Chest x-ray shows no evidence of cardiomegaly or edema. Atelectasis over the LLL. Echo with EF of 55-60%. Mild tricuspid regurgitation, trivial pericardial effusion, L pleural effusion. -Renal US shows trace ascites and small bilateral pleural effusions. IVF likely caused this. Urinary retention: Resolved -UA reviewed without infection. -S/p Maurer catheter. History of seizure disorder, CVA and lupus -Continue home medication. -On Keppra 500mg BID, Dilantin 100mg BID. -Remains therapeutic on 12/26/16. DVT prophylaxis with SCDs and Lovenox 30mg daily per ortho. Patient management discussed with Dr. Morel. Discharge Planning PT and OT recommend rehabilitation. Patient has 4 wheeled walker at home. Needs shower bench. 01/06: Still NWB, awaiting further ortho evaluation and recommendations. I spoke with Edmond Matamoros CM, regarding patient case today. He states he is trying to place patient, but requests calorie count. I also informed him patient is being treated for acute medical issues at this time and is not ready for discharge. Problem Qualifiers (1) DKA (diabetic ketoacidoses): Andra Martines Jan 06, 2017 11:48
[2017-01-06] MEDS: CHLORHEXIDINE GLUCONATE 4% SOLN 120 ML BTL TOPICAL SCH (11:49)
[2017-01-06 20:00] VITALS: BP 137/88; PULSE 89; RESP 20; TEMP 97.5; O2SAT 98
[2017-01-06 20:15] VITALS: O2SAT 97
[2017-01-06] MEDS: MIRTAZAPINE ODT 15 MG TAB PO SCH (20:53)
[2017-01-07] MEDS: CEFEPIME INJ 2,000 MG in SODIUM CHLORIDE 0.9% INJ 100 ML IV SCH ×2 (04:21→16:21)
[2017-01-07] MEDS: cloNIDine HCL 0.1 MG TAB PO SCH ×3 (05:51→20:19)
[2017-01-07] MEDS: METOCLOPRAMIDE HCL SYRUP 10 MG/10 ML UDC PO SCH ×4 (06:00→20:18)
[2017-01-07] MEDS: INSULIN ASPART SUPPLEMENTAL SCALE SQ SCH ×4 (06:32→20:32)
[2017-01-07 08:00] VITALS: BP 122/76; PULSE 86; RESP 19; TEMP 97.8; O2SAT 93
[2017-01-07 08:30] VITALS: O2SAT 91
[2017-01-07] MEDS: DOCUSATE SODIUM 50 MG/SENNA 8.6 MG TAB PO SCH ×2 (09:00→20:18)
[2017-01-07] MEDS: ATORVASTATIN 40 MG TAB PO SCH (10:06)
[2017-01-07] MEDS: PANTOPRAZOLE SOD 40 MG DELAYED RELEASE TAB PO SCH (10:07)
[2017-01-07] MEDS: MULTIVITAMINS/MINERALS THERAPEUTIC TAB PO SCH (10:07)
[2017-01-07] MEDS: PHENYTOIN SODIUM 100 MG CAP PO SCH ×2 (10:07→20:18)
[2017-01-07] MEDS: levETIRAcetam 500 MG TAB PO SCH ×2 (10:08→20:18)
[2017-01-07] MEDS: VENLAFAXINE HCL XR 37.5 MG CAP PO SCH (10:08)
[2017-01-07] MEDS: MEGESTROL ACETATE SUSP 400 MG/10 ML CUP PO SCH ×2 (10:08→20:18)
[2017-01-07] MEDS: METOPROLOL TARTRATE 25 MG TAB PO SCH ×2 (10:08→20:18)
[2017-01-07] MEDS: CALCIUM CARBONATE 500 MG CHEWABLE TAB CHEW SCH ×2 (10:08→20:18)
[2017-01-07] MEDS: ENOXAPARIN SODIUM 30 MG/0.3 ML SYRINGE SQ SCH ×2 (10:09→20:19)
[2017-01-07] MEDS: INSULIN GLARGINE 1,000 UNITS/10 ML VIAL SQ SCH (10:18)
--- NOTE | 2017-01-07 11:31 | HHI.PR ---
Subjective Remarks Follow-up for DKA, anorexia, pneumonia/pleural effusion, UTI. Patient requests a change in her appetite stimulant as she states it is not working. I spoke with the nurse and respiratory therapist regarding her oxygen use. The nurse indicates that the patient O2 saturation will initially be low but then when she takes a deep breath it will come back up. Patient states she only wears the oxygen at night. She denies any fevers or chills, cough, shortness of breath, vomiting, or diarrhea. Objective Vitals Vital Signs Date Time Temp Pulse Resp B/P Pulse Ox O2 Delivery O2 Flow Rate FiO2 01/07/17 08:30 91 21 01/07/17 08:00 97.8 86 19 122/76 93 01/06/17 20:15 97 Nasal Cannula 2.00 01/06/17 20:00 95 2.00 01/06/17 20:00 97.5 89 20 137/88 98 Manual Cuff/Auscultation Automatic Cuff I/O 01/06/17 01/06/17 01/06/17 01/07/17 01/07/17 01/07/17 07:00 15:00 23:00 07:00 15:00 23:00 Intake Total 120 ml 360 ml Output Total 350 ml 400 ml 300 ml Balance -230 ml 360 ml -400 ml -300 ml Intake Oral 120 ml 360 ml Output Urine Total 350 ml 400 ml 300 ml # Voids 1 4 2 # Bowel Movements 0 0 0 0 Result Diagram: 01/06/17 0637 01/06/17 0637 Objective Remarks GENERAL: Well-developed, well-nourished patient in no apparent distress sitting in recliner. CARDIOVASCULAR: Tachycardic at 92 bpm with regular rhythm. RESPIRATORY: No accessory muscle use. Absent breath sounds over the right lower lobe. Coarse expiratory sound over the RUL. No rales or wheezing. GASTROINTESTINAL: Abdomen soft, nontender, nondistended. MUSCULOSKELETAL: No edema of the RLE. Intact RLE distal pulses. NEUROLOGICAL: Awake and alert. Normal speech. PSYCHIATRIC: Normal mood and affect. Procedures 12/03: IM Reymundo fixation right lower extremity Urinary Catheter: No Vascular Central Line Catheter: No A/P Problem List: (1) Hospital acquired PNA ICD Code: J18.9 Status: Acute (2) UTI (urinary tract infection) ICD Code: N39.0 Status: Acute (3) DKA (diabetic ketoacidoses) ICD Code: E13.10 Status: Acute (4) SIRS (systemic inflammatory response syndrome) ICD Code: R65.10 Status: Acute (5) Acute kidney injury superimposed on chronic kidney disease ICD Code: N17.9 Status: Acute (6) Urinary retention ICD Code: R33.9 Status: Acute (7) Loss of appetite ICD Code: R63.0 Status: Acute (8) Fibula fracture ICD Code: S82.409A Status: Acute (9) Tibia fracture ICD Code: S82.209A Status: Acute (10) Anemia ICD Code: D64.9 Status: Acute (11) Hypocalcemia ICD Code: E83.51 Status: Acute (12) Vitamin D deficiency ICD Code: E55.9 Status: Acute Assessment and Plan UTI: UA personally interpreted with evidence of infection. -01/07: Urine culture with 10-50,000 mixed fadia indicative of contamination. Not a true UTI. Leukocytosis: Resolved. Could be attributed to HAP or UTI. HAP: Stable. -01/05: Chest x-ray with right lower lobe consolidation and effusion worse than prior x-ray. -Continue cefepime 2 g every 12 hours IV. -Legionella and streptococcus pneumoniae urinary antigens negative. -Sputum culture ordered, but never received. -O2 as needed Respiratory insufficiency with hypoxia: Chest x-rays were performed which do show bi-basilar atelectasis Patient encouraged to do incentive spirometry every couple hours Patient's O2 saturation improved at 91-93% on room air. Continue O2 via NC as needed. RT to monitor. Anorexia: decreased appetite, not wanting to eat: Persistent Patient is on Keppra and Prozac which can cause anorexia but patient has been on these for an extended period of time. Prealbumin 15 Beef Specialist consulted. Recommends continue diabetic diet, restart Glucerna shakes, recommend Theragran-M Continue Megace. Increased to 400 mg bid Continue scheduled Reglan, 5mg ACHS Continue Remeron 45 mg daily Multiple abdominal scans have been performed without any acute abnormality If patient has return of emesis will pursue gastric emptying study. Consult psychiatry for evaluation because of her reluctant to eat, flat affect , depressed mood; discontinued Prozac and started Effexor. Mood improved. Palliative care was consulted for anorexia, decreased appetite. Feeding tube was discussed and she would agree to it as a last resort. Nursing staff to do daily weights on standing scale Patient started on Suplena supplement. Undergoing calorie count 01/07-01/10 DKA: Resolved. Status post diabetic ketoacidosis protocol Diabetes type 2, uncontrolled: Stable Hemoglobin A1c 10.8 Accu-Cheks with sliding scale insulin Patient has adverse reaction to Levemir. Lantus 4 units daily (am). 01/07: BGLs very good after re-starting Lantus at lower dose. No morning hypoglycemia. REGAN superimposed on chronic kidney disease stage III: REGAN resolved. Patient states 1.6 is baseline Cr outpatient. Status post IV fluid Renal ultrasound shows medical renal disease Nephrology consulted and has signed off Cr improved to 1.50 with IVF. Hypernatremia and hyperchloremia: Resolved. Secondary to poor by mouth intake Encourage increased by mouth water intake S/p D5W Hypertension: Norvasc 10 mg daily Lopressor 12.5 mg twice daily Clonidine 0.1 mg every 8 hours Clonidine as needed 01/07: BP elevated this morning at 159/94, but it has been fluctuating with normal pressures as well. Will monitor and adjust or add medication as needed. Anemia, acute on chronic: Stable. -Secondary to blood loss due to surgery. Also likely has anemia of chronic disease due to renal failure. -Status post transfusion with 2 PRBC -Responded appropriately to transfusion. -GI was consulted due to anemia. Per GI she had colonoscopy and endoscopy done 2 months ago which was normal. She had no signs of any GI bleed. GI signed off. -01/06: Hemoglobin stable at 8.3. Hemoccult stool negative. Platelets improved from yesterday. Right closed tibial fracture status post reymundo fixation on 12/03/16. -Nonweightbearing. -12/21: Ortho was reconsulted to follow patient here at [facility], but they have not come to see the patient. I spoke with Dr. Mills who states if wound looks good , can remove rafa. -12/22: [place] removed -PT -Last seen by ortho on 12/11. I have reconsulted orthopedics again as patient needs to be followed here at [facility]. She still remains NWB and has asked about advancing wb status; need further recommendations and management. Still awaiting re-evaluation by ortho. Hypocalcemia: Patient was initially refusing TUMS but was informed it is necessary for fracture healing. PTH level and calcitonin level are normal Vitamin D deficiency: 25-OH Vitamin D level 9.4. Patient states she took Vitamin D at home, but this is not in med rec. -Continue Vitamin D2 50,000 weekly for 6-8 weeks then transition to lower daily supplementation. SIRS: Resolved. Afebrile. -KUB with no acute abnormality. -UA 12/24 without infection -C.diff PCR test negative. -Lactic acid normal at 1.3 -Blood cultures NG x 5 days -CT abdomen/pelvis with anasarca, small bilateral effusions and small to moderate ascites, but no ileus, or other bowel abnormality. Emesis: Resolved. Likely related to DKA. -Lipase normal -Alkaline phosphatase trending downward -Continue Zofran prn with scheduled Reglan Facial edema: resolved. -Chest x-ray shows no evidence of cardiomegaly or edema. Atelectasis over the LLL. Echo with EF of 55-60%. Mild tricuspid regurgitation, trivial pericardial effusion, L pleural effusion. -Renal US shows trace ascites and small bilateral pleural effusions. IVF likely caused this. Urinary retention: Resolved -UA reviewed without infection. -S/p Maurer catheter. History of seizure disorder, CVA and lupus -Continue home medication. -On Keppra 500mg BID, Dilantin 100mg BID. -Remains therapeutic on 12/26/16. DVT prophylaxis with SCDs and Lovenox 30mg daily per ortho. Patient discussed with Dr. Morel. Discharge Planning PT and OT recommend rehabilitation. Patient has 4 wheeled walker at home. Needs shower bench. 01/06: Still NWB, awaiting further ortho evaluation and recommendations. I spoke with Edmond Matamoros CM, regarding patient case today. He states he is trying to place patient, but requests calorie count. I also informed him patient is being treated for acute medical issues at this time and is not ready for discharge. Problem Qualifiers (1) DKA (diabetic ketoacidoses): Andra Martines Jan 07, 2017 11:31 Problem Qualifiers (1) DKA (diabetic ketoacidoses): Andra Martines Jan 07, 2017 11:31
[2017-01-07 15:05] VITALS: BP 159/94; PULSE 94; RESP 18; O2SAT 93
[2017-01-07 19:34] VITALS: O2SAT 91
[2017-01-07] MEDS: MIRTAZAPINE ODT 15 MG TAB PO SCH (20:19)
[2017-01-07 20:47] VITALS: BP 178/104; PULSE 101; RESP 12; TEMP 98.7; O2SAT 91
[2017-01-08] VITALS (8 sets, daily range): BP systolic 97–174; BP diastolic 57–98; PULSE 81–96; RESP 12–20; TEMP 98–98.8; O2SAT 84–98
[2017-01-08] MEDS: CEFEPIME INJ 2,000 MG in SODIUM CHLORIDE 0.9% INJ 100 ML IV SCH ×2 (05:12→16:14)
[2017-01-08] MEDS: cloNIDine HCL 0.1 MG TAB PO SCH ×3 (06:28→22:00)
[2017-01-08] MEDS: METOCLOPRAMIDE HCL SYRUP 10 MG/10 ML UDC PO SCH ×4 (06:28→20:43)
[2017-01-08] MEDS: INSULIN ASPART SUPPLEMENTAL SCALE SQ SCH ×4 (06:31→20:44)
[2017-01-08] MEDS: DOCUSATE SODIUM 50 MG/SENNA 8.6 MG TAB PO SCH ×2 (09:00→20:43)
[2017-01-08] MEDS: INSULIN GLARGINE 1,000 UNITS/10 ML VIAL SQ SCH (09:00)
[2017-01-08] MEDS: CALCIUM CARBONATE 500 MG CHEWABLE TAB CHEW SCH ×2 (09:15→20:43)
[2017-01-08] MEDS: METOPROLOL TARTRATE 25 MG TAB PO SCH ×2 (09:15→20:44)
[2017-01-08] MEDS: VENLAFAXINE HCL XR 37.5 MG CAP PO SCH (09:16)
[2017-01-08] MEDS: levETIRAcetam 500 MG TAB PO SCH ×2 (09:16→20:43)
[2017-01-08] MEDS: MULTIVITAMINS/MINERALS THERAPEUTIC TAB PO SCH (09:16)
[2017-01-08] MEDS: PHENYTOIN SODIUM 100 MG CAP PO SCH ×2 (09:17→20:42)
[2017-01-08] MEDS: ATORVASTATIN 40 MG TAB PO SCH (09:17)
[2017-01-08] MEDS: PANTOPRAZOLE SOD 40 MG DELAYED RELEASE TAB PO SCH (09:17)
[2017-01-08] MEDS: ENOXAPARIN SODIUM 30 MG/0.3 ML SYRINGE SQ SCH ×2 (09:18→20:43)
[2017-01-08] MEDS: MEGESTROL ACETATE SUSP 400 MG/10 ML CUP PO SCH ×2 (09:18→20:43)
--- NOTE | 2017-01-08 09:46 | HHI.PR ---
Subjective Remarks Follow-up for anorexia, pneumonia/pleural effusion. Patient denies any fevers or chills, chest pain, cough or shortness of breath, abdominal pain, nausea, vomiting, diarrhea, hematochezia, melena, or dysuria. Patient inquires about coming off of isolation. Objective Vitals Vital Signs Date Time Temp Pulse Resp B/P Pulse Ox O2 Delivery O2 Flow Rate FiO2 01/08/17 08:10 94 01/08/17 04:00 98.0 90 14 154/72 94 01/08/17 00:10 98.0 81 12 120/65 98 01/07/17 22:55 Nasal Cannula 2.00 01/07/17 20:47 98.7 101 12 178/104 91 01/07/17 19:34 91 21 01/07/17 15:05 94 18 159/94 93 I/O 01/07/17 01/07/17 01/07/17 01/08/17 01/08/17 01/08/17 06:59 14:59 22:59 06:59 14:59 22:59 Intake Total 100 ml Output Total 400 ml 400 ml Balance -400 ml -400 ml 100 ml IV Total 100 ml Output Urine Total 400 ml 400 ml # Voids 2 3 0 4 # Bowel Movements 1 0 Result Diagram: 01/06/1737 01/06/17636 Objective Remarks GENERAL: Well-developed, well-nourished patient in no apparent distress sleeping when I enter the room. CARDIOVASCULAR: Tachycardic with regular rhythm. RESPIRATORY: No accessory muscle use. Absent breath sounds over the right lower lobe. Decreased breath sounds. No rales, wheezing, or rhonchi. GASTROINTESTINAL: Abdomen soft, nontender, nondistended. MUSCULOSKELETAL: No lower extremity edema bilaterally. Intact DP and TP pulses bilaterally. NEUROLOGICAL: Awake and alert. Normal speech. PSYCHIATRIC: Normal mood and affect. Procedures 12/03: IM Reymundo fixation right lower extremity Urinary Catheter: No Vascular Central Line Catheter: No A/P Problem List: (1) Hospital acquired PNA ICD Code: J18.9 Status: Acute (2) UTI (urinary tract infection) ICD Code: N39.0 Status: Acute (3) DKA (diabetic ketoacidoses) ICD Code: E13.10 Status: Acute (4) SIRS (systemic inflammatory response syndrome) ICD Code: R65.10 Status: Acute (5) Acute kidney injury superimposed on chronic kidney disease ICD Code: N17.9 Status: Acute (6) Urinary retention ICD Code: R33.9 Status: Acute (7) Loss of appetite ICD Code: R63.0 Status: Acute (8) Fibula fracture ICD Code: S82.409A Status: Acute (9) Tibia fracture ICD Code: S82.209A Status: Acute (10) Anemia ICD Code: D64.9 Status: Acute (11) Hypocalcemia ICD Code: E83.51 Status: Acute (12) Vitamin D deficiency ICD Code: E55.9 Status: Acute Assessment and Plan HAP: Stable. -01/05: Chest x-ray with right lower lobe consolidation and effusion worse than prior x-ray. -Continue cefepime 2 g every 12 hours IV x 7 days -Legionella and streptococcus pneumoniae urinary antigens negative. -Sputum culture ordered, but never received. -O2 as needed Respiratory insufficiency with hypoxia: Chest x-rays were performed which do show bi-basilar atelectasis Patient encouraged to do incentive spirometry every couple hours Patient's O2 saturation improved, now on room air during the day, O2 at night. Anorexia: decreased appetite, not wanting to eat: Persistent Patient is on Keppra and Prozac which can cause anorexia but patient has been on these for an extended period of time. 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 Recommends continue diabetic diet, restart Glucerna shakes, recommend Theragran-M Continue Megace at 400 mg bid. Continue scheduled Reglan, 5mg ACHS Continue Remeron 45 mg daily Multiple abdominal scans have been performed without any acute abnormality If patient has return of emesis will pursue gastric emptying study. Consult psychiatry for evaluation because of her reluctant to eat, flat affect , depressed mood; discontinued Prozac and started Effexor. Mood improved. Palliative care was consulted for anorexia, decreased appetite. Feeding tube was discussed and she would agree to it as a last resort. Nursing staff to do daily weights on standing scale Patient started on Suplena supplement. Undergoing calorie count 01/07-01/10 DKA: Resolved. Status post diabetic ketoacidosis protocol Diabetes type 2, uncontrolled: Stable Hemoglobin A1c 10.8 Accu-Cheks with sliding scale insulin Patient has adverse reaction to Levemir. Lantus 4 units daily (am). 01/08: Nighttime and morning BGLs good. Continue with current regimen. REGAN superimposed on chronic kidney disease stage III: REGAN resolved. Patient states 1.6 is baseline Cr outpatient. Status post IV fluid Renal ultrasound shows medical renal disease Nephrology consulted and has signed off Cr improved to 1.50 with IVF. Monitor BMP periodically. Hypernatremia and hyperchloremia: Resolved. Secondary to poor by mouth intake Encourage increased by mouth water intake S/p D5W Hypertension: Norvasc 10 mg daily Lopressor 12.5 mg twice daily Clonidine 0.1 mg every 8 hours Clonidine as needed 01/08: BP elevated this morning at 174/98, but it has been fluctuating. Discussed with Dr. Morel, no adjustment to medication advised at this time. Anemia, acute on chronic: Stable. -Secondary to blood loss due to surgery. Also likely has anemia of chronic disease due to renal failure. -Status post transfusion with 2 PRBC -Responded appropriately to transfusion. -GI was consulted due to anemia. Per GI she had colonoscopy and endoscopy done 2 months ago which was normal. She had no signs of any GI bleed. GI signed off. -01/06: Hemoglobin stable at 8.3. Hemoccult stool negative. Platelets improved from yesterday. Right closed tibial fracture status post reymundo fixation on 12/03/16. -Nonweightbearing. -12/21: Ortho was reconsulted to follow patient here at [facility], but they have not come to see the patient. I spoke with Dr. Mills who states if wound looks good , can remove elx. -12/22: Lex removed -PT -Last seen by ortho on 12/11. I reconsulted orthopedics again on 01/05 as patient needs to be followed here at [facility]. She still remains NWB and has asked about advancing wb status; need further recommendations and management. Still awaiting re-evaluation by ortho. Hypocalcemia: Patient was initially refusing TUMS but was informed it is necessary for fracture healing. PTH level and calcitonin level are normal Vitamin D deficiency: 25-OH Vitamin D level 9.4. Patient states she took Vitamin D at home, but this is not in med rec. -Continue Vitamin D2 50,000 weekly for 6-8 weeks then transition to lower daily supplementation. SIRS: Resolved. Afebrile. -KUB with no acute abnormality. -UA 12/24 without infection -C.diff PCR test negative. -Lactic acid normal at 1.3 -Blood cultures NG x 5 days -CT abdomen/pelvis with anasarca, small bilateral effusions and small to moderate ascites, but no ileus, or other bowel abnormality. Emesis: Resolved. Likely related to DKA. -Lipase normal -Alkaline phosphatase trending downward -Continue Zofran prn with scheduled Reglan Facial edema: resolved. -Chest x-ray shows no evidence of cardiomegaly or edema. Atelectasis over the LLL. Echo with EF of 55-60%. Mild tricuspid regurgitation, trivial pericardial effusion, L pleural effusion. -Renal US shows trace ascites and small bilateral pleural effusions. IVF likely caused this. Urinary retention: Resolved -UA reviewed without infection. -S/p Maurer catheter. History of seizure disorder, CVA and lupus -Continue home medication. -On Keppra 500mg BID, Dilantin 100mg BID. -Remains therapeutic on 12/26/16. DVT prophylaxis with SCDs and Lovenox 30mg daily per ortho. MRSA PCR was positive on 01/01/17. She has completed Hibiclens washing and nasal Bactroban use since that time. Will repeat MRSA PCR test. Discharge Planning PT and OT recommend rehabilitation. Patient has 4 wheeled walker at home. Needs shower bench. 01/06: Still NWB, awaiting further ortho evaluation and recommendations. I spoke with Edmond Matamoros CM, regarding patient case today. He states he is trying to place patient, but requests calorie count. I also informed him patient is being treated for acute medical issues at this time and is not ready for discharge. Problem Qualifiers (1) DKA (diabetic ketoacidoses): Andra Martines Jan 08, 2017 09:45
[2017-01-08] MEDS: MIRTAZAPINE ODT 15 MG TAB PO SCH (20:43)
[2017-01-09] VITALS (7 sets, daily range): BP systolic 99–113; BP diastolic 58–80; PULSE 92–93; RESP 16–18; TEMP 98–98.5; O2SAT 88–95
[2017-01-09] MEDS: CEFEPIME INJ 2,000 MG in SODIUM CHLORIDE 0.9% INJ 100 ML IV SCH ×2 (03:55→15:51)
[2017-01-09] MEDS: METOCLOPRAMIDE HCL SYRUP 10 MG/10 ML UDC PO SCH ×2 (06:18→07:56)
[2017-01-09] MEDS: cloNIDine HCL 0.1 MG TAB PO SCH ×3 (06:19→21:10)
[2017-01-09] MEDS: CALCIUM CARBONATE 500 MG CHEWABLE TAB CHEW SCH ×2 (07:51→21:09)
[2017-01-09] MEDS: PANTOPRAZOLE SOD 40 MG DELAYED RELEASE TAB PO SCH (07:51)
[2017-01-09] MEDS: ENOXAPARIN SODIUM 30 MG/0.3 ML SYRINGE SQ SCH ×2 (07:51→21:10)
[2017-01-09] MEDS: MEGESTROL ACETATE SUSP 400 MG/10 ML CUP PO SCH ×2 (07:52→21:11)
[2017-01-09] MEDS: MULTIVITAMINS/MINERALS THERAPEUTIC TAB PO SCH (07:52)
[2017-01-09] MEDS: ATORVASTATIN 40 MG TAB PO SCH (07:52)
[2017-01-09] MEDS: VENLAFAXINE HCL XR 37.5 MG CAP PO SCH (07:52)
[2017-01-09] MEDS: DOCUSATE SODIUM 50 MG/SENNA 8.6 MG TAB PO SCH ×2 (07:52→21:10)
[2017-01-09] MEDS: levETIRAcetam 500 MG TAB PO SCH ×2 (07:53→21:10)
[2017-01-09] MEDS: PHENYTOIN SODIUM 100 MG CAP PO SCH ×2 (07:53→21:12)
[2017-01-09] MEDS: METOPROLOL TARTRATE 25 MG TAB PO SCH ×2 (07:54→21:11)
[2017-01-09] MEDS: INSULIN GLARGINE 1,000 UNITS/10 ML VIAL SQ SCH (07:54)
[2017-01-09] MEDS: INSULIN ASPART SUPPLEMENTAL SCALE SQ SCH ×4 (07:54→21:00)
--- NOTE | 2017-01-09 10:02 | HHI.PR ---
Subjective Remarks Follow-up for anorexia, pneumonia/pleural effusion. Denies any worsening cough. Denies shortness of breath. Denies vomiting or diarrhea. Objective Vitals Vital Signs Date Time Temp Pulse Resp B/P Pulse Ox O2 Delivery O2 Flow Rate FiO2 01/09/17 08:03 92 01/09/17 04:00 113/80 01/08/17 22:00 100/57 01/08/17 20:00 Nasal Cannula 2.00 01/08/17 20:00 98.5 92 20 97/64 96 01/08/17 19:55 93 Nasal Cannula 2.00 01/08/17 19:50 84 21 I/O 01/08/17 01/08/17 01/08/17 01/09/17 01/09/17 01/09/17 07:00 15:00 23:00 07:00 15:00 23:00 Intake Total 100 ml 120 ml Balance 100 ml 120 ml Intake Oral 120 ml IV Total 100 ml # Voids 4 1 Result Diagram: 01/06/17 0637 01/06/17636 Objective Remarks GENERAL: Well-developed, well-nourished patient in no apparent distress sleeping when I enter the room. CARDIOVASCULAR: Regular rate and rhythm. RESPIRATORY: No accessory muscle use. Absent breath sounds over the posterior right lower lobe although improved laterally. Decreased breath sounds, but clear otherwise. No rales, wheezing, or rhonchi. GASTROINTESTINAL: Abdomen soft, nontender, nondistended. MUSCULOSKELETAL: No lower extremity edema bilaterally. 1+ R DP pulse. 2+ R TP pulse. NEUROLOGICAL: Awake and alert. Normal speech. PSYCHIATRIC: Normal mood and affect. Procedures 12/03: IM Reymundo fixation right lower extremity Urinary Catheter: No Vascular Central Line Catheter: No A/P Problem List: (1) Hospital acquired PNA ICD Code: J18.9 Status: Acute (2) UTI (urinary tract infection) ICD Code: N39.0 Status: Acute (3) DKA (diabetic ketoacidoses) ICD Code: E13.10 Status: Acute (4) SIRS (systemic inflammatory response syndrome) ICD Code: R65.10 Status: Acute (5) Acute kidney injury superimposed on chronic kidney disease ICD Code: N17.9 Status: Acute (6) Urinary retention ICD Code: R33.9 Status: Acute (7) Loss of appetite ICD Code: R63.0 Status: Acute (8) Fibula fracture ICD Code: S82.409A Status: Acute (9) Tibia fracture ICD Code: S82.209A Status: Acute (10) Anemia ICD Code: D64.9 Status: Acute (11) Hypocalcemia ICD Code: E83.51 Status: Acute (12) Vitamin D deficiency ICD Code: E55.9 Status: Acute Assessment and Plan HAP: Stable. -01/05: Chest x-ray with right lower lobe consolidation and effusion worse than prior x-ray. -Continue cefepime 2 g every 12 hours IV x 7 days -Legionella and streptococcus pneumoniae urinary antigens negative. -Sputum culture ordered, but never received. -O2 as needed Respiratory insufficiency with hypoxia: Chest x-rays were performed which do show bi-basilar atelectasis Patient encouraged to do incentive spirometry every couple hours O2 as needed Anorexia: decreased appetite, not wanting to eat: Persistent Patient is on Keppra and Prozac which can cause anorexia but patient has been on these for an extended period of time. 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 Recommends continue diabetic diet, restart Glucerna shakes, recommend Theragran-M Continue Megace at 400 mg bid. Continue scheduled Reglan, 5mg ACHS Continue Remeron 45 mg daily Multiple abdominal scans have been performed without any acute abnormality If patient has return of emesis will pursue gastric emptying study. Consult psychiatry for evaluation because of her reluctant to eat, flat affect , depressed mood; discontinued Prozac and started Effexor. Mood improved. Palliative care was consulted for anorexia, decreased appetite. Feeding tube was discussed and she would agree to it as a last resort. Nursing staff to do daily weights on standing scale Patient started on Suplena supplement. Undergoing calorie count 01/07-01/10 DKA: Resolved. Status post diabetic ketoacidosis protocol Diabetes type 2, uncontrolled: Stable Hemoglobin A1c 10.8 Accu-Cheks with sliding scale insulin Patient has adverse reaction to Levemir. Lantus 4 units daily (am). 01/09: Nighttime and morning BGLs good. Continue with current regimen. REGAN superimposed on chronic kidney disease stage III: REGAN resolved. Patient states 1.6 is baseline Cr outpatient. Status post IV fluid Renal ultrasound shows medical renal disease Nephrology consulted and has signed off Cr improved to 1.50 with IVF. Monitor BMP periodically. Hypernatremia and hyperchloremia: Resolved. Secondary to poor by mouth intake Encourage increased by mouth water intake S/p D5W Hypertension: Norvasc 10 mg daily Lopressor 12.5 mg twice daily Clonidine 0.1 mg every 8 hours Clonidine as needed 01/09: Becoming hypotensive. Will reduce scheduled Clonidine to 0.1 bid. Anemia, acute on chronic: Stable. -Secondary to blood loss due to surgery. Also likely has anemia of chronic disease due to renal failure. -Status post transfusion with 2 PRBC -Responded appropriately to transfusion. -GI was consulted due to anemia. Per GI she had colonoscopy and endoscopy done 2 months ago which was normal. She had no signs of any GI bleed. GI signed off. -01/06: Hemoglobin stable at 8.3. Hemoccult stool negative. Platelets improved from yesterday. Right closed tibial fracture status post reymundo fixation on 12/03/16. -Nonweightbearing. -12/21: Ortho was reconsulted to follow patient here at [facility], but they have not come to see the patient. I spoke with Dr. Mills who states if wound looks good , can remove lex. -12/22: Lex removed -PT -Last seen by ortho on 12/11. I reconsulted orthopedics again on 01/05 as patient needs to be followed here at [facility]. She still remains NWB and has asked about advancing wb status; need further recommendations and management. Still awaiting re-evaluation by ortho. Hypocalcemia: Patient was initially refusing TUMS but was informed it is necessary for fracture healing. PTH level and calcitonin level are normal Vitamin D deficiency: 25-OH Vitamin D level 9.4. Patient states she took Vitamin D at home, but this is not in med rec. -Continue Vitamin D2 50,000 weekly for 6-8 weeks then transition to lower daily supplementation. SIRS: Resolved. Afebrile. -KUB with no acute abnormality. -UA 12/24 without infection -C.diff PCR test negative. -Lactic acid normal at 1.3 -Blood cultures NG x 5 days -CT abdomen/pelvis with anasarca, small bilateral effusions and small to moderate ascites, but no ileus, or other bowel abnormality. Emesis: Resolved. Likely related to DKA. -Lipase normal -Alkaline phosphatase trending downward -Continue Zofran prn with scheduled Reglan Facial edema: resolved. -Chest x-ray shows no evidence of cardiomegaly or edema. Atelectasis over the LLL. Echo with EF of 55-60%. Mild tricuspid regurgitation, trivial pericardial effusion, L pleural effusion. -Renal US shows trace ascites and small bilateral pleural effusions. IVF likely caused this. Urinary retention: Resolved -UA reviewed without infection. -S/p Maurer catheter. History of seizure disorder, CVA and lupus -Continue home medication. -On Keppra 500mg BID, Dilantin 100mg BID. -Remains therapeutic on 12/26/16. DVT prophylaxis with SCDs and Lovenox 30mg daily per ortho. MRSA PCR was positive on 01/01/17. She has completed Hibiclens washing and nasal Bactroban use since that time. Will repeat MRSA PCR test. Discharge Planning PT and OT recommend rehabilitation. Patient has 4 wheeled walker at home. Needs shower bench. 01/06: Still NWB, awaiting further ortho evaluation and recommendations. I spoke with Edmond Matamoros CM, regarding patient case today. He states he is trying to place patient, but requests calorie count. I also informed him patient is being treated for acute medical issues at this time and is not ready for discharge. Problem Qualifiers (1) DKA (diabetic ketoacidoses): Andra Martines Jan 09, 2017 10:01
[2017-01-09] MEDS ORDERED: LORazepam 2 MG/ML VIAL IV PUSH ONE (15:45)
[2017-01-09] MEDS: MIRTAZAPINE ODT 15 MG TAB PO SCH (21:00)
[2017-01-10] VITALS (7 sets, daily range): BP systolic 115–158; BP diastolic 71–93; PULSE 62–97; RESP 16–19; TEMP 96.9–98.2; O2SAT 80–99
[2017-01-10] MEDS: LORazepam 2 MG/ML VIAL IV PUSH PRN ×2 (00:12→09:53)
[2017-01-10] MEDS: CEFEPIME INJ 2,000 MG in SODIUM CHLORIDE 0.9% INJ 100 ML IV SCH ×2 (04:17→16:40)
[2017-01-10] MEDS: INSULIN ASPART SUPPLEMENTAL SCALE SQ SCH ×4 (06:43→21:00)
[2017-01-10] MEDS: INSULIN GLARGINE 1,000 UNITS/10 ML VIAL SQ SCH (09:00)
[2017-01-10] MEDS: PHENYTOIN SODIUM 100 MG CAP PO SCH ×2 (09:40→22:30)
[2017-01-10] MEDS: MEGESTROL ACETATE SUSP 400 MG/10 ML CUP PO SCH ×2 (09:41→22:28)
[2017-01-10] MEDS: MULTIVITAMINS/MINERALS THERAPEUTIC TAB PO SCH (09:41)
[2017-01-10] MEDS: ATORVASTATIN 40 MG TAB PO SCH (09:41)
[2017-01-10] MEDS: ENOXAPARIN SODIUM 30 MG/0.3 ML SYRINGE SQ SCH ×2 (09:41→22:31)
[2017-01-10] MEDS: PANTOPRAZOLE SOD 40 MG DELAYED RELEASE TAB PO SCH (09:41)
[2017-01-10] MEDS: DOCUSATE SODIUM 50 MG/SENNA 8.6 MG TAB PO SCH ×2 (09:41→22:27)
[2017-01-10] MEDS: CALCIUM CARBONATE 500 MG CHEWABLE TAB CHEW SCH ×2 (09:41→22:27)
[2017-01-10] MEDS: levETIRAcetam 500 MG TAB PO SCH ×2 (09:41→22:29)
[2017-01-10] MEDS: cloNIDine HCL 0.1 MG TAB PO SCH ×2 (09:42→22:31)
[2017-01-10] MEDS: METOPROLOL TARTRATE 25 MG TAB PO SCH ×2 (09:42→22:28)
--- NOTE | 2017-01-10 10:23 | RADRPT ---
EXAM DATE/TIME: 01/10/2017 09:49 [facility] COMPARISON: CT BRAIN W/O CONTRAST, November 22, 2016, 3:32. INDICATIONS : Fell last night and found on floor. RADIATION DOSE: 51.11 CTDIvol (mGy) MEDICAL HISTORY : Lupus. Hypertension. Cerebrovascular disease.Renal disease. Diabetes. Seizure. SURGICAL HISTORY : Cholecystectomy. Hysterectomy. section. ENCOUNTER: Initial ACUITY: 1 day PAIN SCALE: 0/10 LOCATION: cranial TECHNIQUE: Multiple contiguous axial images were obtained of the head. Using automated exposure control and adj ustment of the mA and/or kV according to patient size, radiation dose was kept as low as reasonably a chievable to obtain optimal diagnostic quality images. DICOM format image data is available electro nically for review and comparison. FINDINGS: CEREBRUM: The ventricles are normal for age. No evidence of midline shift, mass lesion, hemorrhage or acute in farction. No extra-axial fluid collections are seen. POSTERIOR FOSSA: The cerebellum and brainstem are intact. The 4th ventricle is midline. The cerebellopontine angle i s unremarkable. EXTRACRANIAL: The visualized portion of the orbits is intact. Interval opacification of the left mastoid air cells. SKULL: The calvaria is intact. No evidence of skull fracture. CONCLUSION: 1. Interval development of left sided mastoiditis since 11/22/2016. Clinical correlation is recommende d. 2. Otherwise, no acute intracranial abnormality. Eriberto Madison MD on January 10, 2017 at 10:15 Board Certified Radiologist. This report was verified electronically.
--- NOTE | 2017-01-10 10:40 | HHI.PR ---
Subjective Remarks Follow-up for anorexia, pneumonia/pleural effusion, possible seizure activity. Nurse informs me the patient had a fall last night and was found face down, unwitnessed. The patient's right face is noted to be twitching and she denies experiencing this. Her right hand started to twitch during exam and I brought this to the patient's attention and she does admit this is involuntary. She has no acute complaints. After my exam the patient was attempting to get out of the bed and when I told her she needs to be assisted to do this, she states she called the nurse and I informed her she did not. I was informed patient is not putting out urine. Objective Vitals Vital Signs Date Time Temp Pulse Resp B/P Pulse Ox O2 Delivery O2 Flow Rate FiO2 01/10/17 10:14 96.9 97 19 115/71 98 01/10/17 08:39 97.8 94 19 158/93 99 01/09/17 20:15 94 Nasal Cannula 2.00 01/09/17 20:10 88 21 01/09/17 20:00 98.5 92 16 102/58 90 01/09/17 19:00 Nasal Cannula 2.00 01/09/17 13:21 92 Nasal Cannula 2.00 01/09/17 12:40 108/76 I/O 01/09/17 01/09/17 01/09/17 01/10/17 01/10/17 01/10/17 07:00 15:00 23:00 07:00 15:00 23:00 Intake Total 120 ml 240 ml Output Total 2 ml Balance 120 ml 238 ml Intake Oral 120 ml 240 ml Output Urine Total 2 ml # Voids 1 2 2 # Bowel Movements 0 Result Diagram: 01/06/1737 01/06/17 0637 Objective Remarks GENERAL: Well-developed patient in no apparent distress. EYES: Pupils equal. CARDIOVASCULAR: Regular rate and rhythm. RESPIRATORY: No accessory muscle use. Absent breath sounds over the right lower lobe, but clear otherwise. GASTROINTESTINAL: Abdomen soft, nontender, nondistended. MUSCULOSKELETAL: Swollen right hand. Intact DP and TP pulses bilaterally. NEUROLOGICAL: Awake and alert. I asked the patient the month and she states December, but then when I ask her the year twice she again repeats December; Speech is normal but repetitive. She has right sided facial twitching noted. Her right hand starts twitching during exam. She does have some difficulty following my finger with extraocular movement testing although improved from yesterday, but no other obvious cranial nerve deficits. Strength is 5/5 and equal in bilateral upper extremities. Strength is equivocally weaker in L quadriceps compared to R which is 5/5. PSYCHIATRIC: Tired and sad affect. Procedures 12/03: IM Reymundo fixation right lower extremity Urinary Catheter: No Vascular Central Line Catheter: No A/P Problem List: (1) Hospital acquired PNA ICD Code: J18.9 Status: Acute (2) UTI (urinary tract infection) ICD Code: N39.0 Status: Acute (3) DKA (diabetic ketoacidoses) ICD Code: E13.10 Status: Acute (4) SIRS (systemic inflammatory response syndrome) ICD Code: R65.10 Status: Acute (5) Acute kidney injury superimposed on chronic kidney disease ICD Code: N17.9 Status: Acute (6) Urinary retention ICD Code: R33.9 Status: Acute (7) Loss of appetite ICD Code: R63.0 Status: Acute (8) Fibula fracture ICD Code: S82.409A Status: Acute (9) Tibia fracture ICD Code: S82.209A Status: Acute (10) Anemia ICD Code: D64.9 Status: Acute (11) Hypocalcemia ICD Code: E83.51 Status: Acute (12) Vitamin D deficiency ICD Code: E55.9 Status: Acute Assessment and Plan Seizure activity versus extrapyramidal symptoms: Patient had twitching of her face and jerking of her upper extremities and twitching of the hands. She is conscious and answers questions appropriately but then becomes repetitive at times. Mild confusion. Family informed me yesterday that the patient exhibits this behavior prior to having a seizure. Patient is on some medications that can lower the seizure threshold and on some medications that can cause extrapyramidal symptoms. Remeron and Effexor doses were decreased yesterday. Reglan discontinued. WBC count normal this morning. -Continue Ativan for seizure activity -EEG was performed this morning, results pending -Seizure precautions, bed alarm -Neuro checks -Neurology consultation; patient cannot recall her neurologist. -Ammonia level normal -B12 pending -Patient refused ABG which was ordered to evaluated for CO2 retention. Fall: Last night unwitnessed. -CT of the brain ordered. No acute intracranial abnormality noted although there is apparently left-sided mastoiditis development since 11/22/16 although the patient has had no complaints clinically in this regards. -Bed alarm HAP: Stable. -01/05: Chest x-ray with right lower lobe consolidation and effusion worse than prior x-ray. -Continue cefepime 2 g every 12 hours IV x 7 days -Legionella and streptococcus pneumoniae urinary antigens negative. -Sputum culture ordered, but never received. -O2 as needed Respiratory insufficiency with hypoxia: Chest x-rays were performed which do show bi-basilar atelectasis Patient encouraged to do incentive spirometry every couple hours O2 as needed. O2 improved. 98-94% on room air today. Anorexia: decreased appetite, not wanting to eat: Persistent Patient is on Keppra and Prozac which can cause anorexia but patient has been on these for an extended period of time. Prealbumin 15 Corset Maker consulted. Recommends continue diabetic diet, restart Glucerna shakes, recommend Theragran-M Continue Megace at 400 mg bid. Continue scheduled Reglan, 5mg ACHS Continue Remeron 45 mg daily Multiple abdominal scans have been performed without any acute abnormality If patient has return of emesis will pursue gastric emptying study. Consult psychiatry for evaluation because of her reluctant to eat, flat affect , depressed mood; discontinued Prozac and started Effexor. Mood improved. Palliative care was consulted for anorexia, decreased appetite. Feeding tube was discussed and she would agree to it as a last resort. Nursing staff to do daily weights on standing scale Patient started on Suplena supplement. Undergoing calorie count 01/07-01/10. -01/10: I spoke with dietitian this morning and she states the patient may need repeat calorie count later this week. DKA: Resolved. Status post diabetic ketoacidosis protocol Diabetes type 2, uncontrolled: Stable Hemoglobin A1c 10.8 Accu-Cheks with sliding scale insulin Patient has adverse reaction to Levemir. Lantus 4 units daily (am). 01/10: Nighttime and morning BGLs good, but nurse concerned because BGLs have been lower than prior. Discussed with Dr. Morel who advises holding Lantus dose this morning. Resumed for tomorrow provided not hypoglycemic. REGAN superimposed on chronic kidney disease stage III: REGAN resolved. Patient states 1.6 is baseline Cr outpatient. Status post IV fluid Renal ultrasound shows medical renal disease Nephrology consulted and has signed off Cr improved to 1.50 with IVF. Monitor BMP periodically. Creatinine further improved to 1.4 today. Nurse initially informed me the patient was not having urine output although BUSINESS DEVELOPMENT ASSISTANT states the patient felt she needed to void numerous times this morning. I later called the nurse and she states the patient is now having normal urine output again. Continue to monitor intake and output. Hypernatremia and hyperchloremia: Worse. Secondary to poor by mouth intake Encourage increased by mouth water intake S/p D5W Again elevated, Sodium 147, chloride 111. We'll encourage by mouth hydration as creatinine remains normal. If not improved or increasingly elevated tomorrow , will start D5W again. Hypertension: Norvasc 10 mg daily Lopressor 12.5 mg twice daily Clonidine 0.1 mg every 8 hours reduced to bid on 01/10 due to hypotension. Clonidine as needed 01/10: BP normal later this morning. Continue with current regimen. Anemia, acute on chronic: Stable. -Secondary to blood loss due to surgery. Also likely has anemia of chronic disease due to renal failure. -Status post transfusion with 2 PRBC -Responded appropriately to transfusion. -GI was consulted due to anemia. Per GI she had colonoscopy and endoscopy done 2 months ago which was normal. She had no signs of any GI bleed. GI signed off. -Hemoccult stool negative. -01/10: Hemoglobin stable at 8.9. Right closed tibial fracture status post reymundo fixation on 12/03/16. -Nonweightbearing. -12/21: Ortho was reconsulted to follow patient here at [facility], but they have not come to see the patient. I spoke with Dr. Mills who states if wound looks good , can remove rafa. -12/22: Manlius removed -PT -Last seen by ortho on 12/11. I reconsulted orthopedics again on 01/05 as patient needs to be followed here at [facility]. She still remains NWB and has asked about advancing wb status; need further recommendations and management. Still awaiting re-evaluation by ortho. Hypocalcemia: Patient was initially refusing TUMS but was informed it is necessary for fracture healing. PTH level and calcitonin level are normal Vitamin D deficiency: 25-OH Vitamin D level 9.4. Patient states she took Vitamin D at home, but this is not in med rec. -Continue Vitamin D2 50,000 weekly for 6-8 weeks then transition to lower daily supplementation. SIRS: Resolved. Afebrile. -KUB with no acute abnormality. -UA 12/24 without infection -C.diff PCR test negative. -Lactic acid normal at 1.3 -Blood cultures NG x 5 days -CT abdomen/pelvis with anasarca, small bilateral effusions and small to moderate ascites, but no ileus, or other bowel abnormality. Emesis: Resolved. Likely related to DKA. -Lipase normal -Alkaline phosphatase trending downward -Continue Zofran prn with scheduled Reglan Facial edema: resolved. -Chest x-ray shows no evidence of cardiomegaly or edema. Atelectasis over the LLL. Echo with EF of 55-60%. Mild tricuspid regurgitation, trivial pericardial effusion, L pleural effusion. -Renal US shows trace ascites and small bilateral pleural effusions. IVF likely caused this. Urinary retention: Resolved -UA reviewed without infection. -S/p Maurer catheter. History of seizure disorder, CVA and lupus -Continue home medication. -On Keppra 500mg BID, Dilantin 100mg BID. -Remains therapeutic on 12/26/16. DVT prophylaxis with SCDs and Lovenox 30mg daily per ortho. Patient condition and management discussed with Dr. Morel, attending. Discharge Planning PT and OT recommend rehabilitation. Patient has 4 wheeled walker at home. Needs shower bench. 01/06: Still NWB, awaiting further ortho evaluation and recommendations. I spoke with Edmond Matamoros CM, regarding patient case today. He states he is trying to place patient, but requests calorie count. I also informed him patient is being treated for acute medical issues at this time and is not ready for discharge. Problem Qualifiers (1) DKA (diabetic ketoacidoses): Andra Martines Jan 10, 2017 10:40
[2017-01-10 11:38] LABS: AUTOMATED NEUTROPHIL # 4.9 TH/MM3 (1.8-7.7); BASOPHIL % 0.7 % (0.0-2.0); EOSINOPHIL # 0.2 TH/MM3 (0-0.4); EOSINOPHIL % 2.5 % (0.0-4.0); HEMO FLAGS DIFF FINAL; LYMPH % 21.5 % (9.0-44.0); LYMPHOCYTE # 1.5 TH/MM3 (1.0-4.8); MEAN CELL VOLUME 90.5 FL (80.0-100.0); MEAN CORPUSCULAR HEMOGLOBIN 29.6 PG (27.0-34.0); MEAN CORPUSCULAR HGB CONC 32.8 % (32.0-36.0); MONO % 7.6 % (0.0-8.0); NEUT % 67.7 % (16.0-70.0); PLATELET COUNT 234 TH/MM3 (150-450); RED BLOOD COUNT 2.98 MIL/MM3 (4.00-5.30); RED CELL DISTRIBUTION WIDTH 14.4 % (11.6-17.2); WHITE BLOOD COUNT 7.1 TH/MM3 (4.0-11.0)
[2017-01-10 11:48] LABS: POTASSIUM 3.9 MEQ/L (3.5-5.1)
[2017-01-10 11:51] LABS: BICARBONATE 26.3 MEQ/L (21.0-32.0)
--- NOTE | 2017-01-10 15:08 | MG ---
cc: AYSE JASSO M.D. Lab No: [id number] Date: 01/10/2017 Age: Sex: F Race: TECHNIQUE This is a 17-channel EEG. DESCRIPTION: The background rhythm reveals normal alpha rhythm, frequency is 8 Hz, amplitude 20-30 microvolts. There is slowing in the theta range during drowsiness. Photic stimulation is done with only a modest driving response. I do not see any lateralizing features or epileptiform discharges present. INTERPRETATION This is a normal awake and asleep EEG. MD LISA Castillo/DAYAN /2:35 PM /3:03 PM
[2017-01-10] MEDS ORDERED: LORazepam 2 MG/ML VIAL IV PUSH PRN (21:00)
[2017-01-10] MEDS: MIRTAZAPINE ODT 15 MG TAB PO SCH (22:32)
[2017-01-11] MEDS: CEFEPIME INJ 2,000 MG in SODIUM CHLORIDE 0.9% INJ 100 ML IV SCH ×2 (04:25→16:09)
[2017-01-11] MEDS: PHENYTOIN SODIUM 100 MG CAP PO SCH ×5 (06:30→21:06)
[2017-01-11 08:00] VITALS: BP 156/79; PULSE 94; RESP 18; TEMP 97.8; O2SAT 93; O2SAT 98
--- NOTE | 2017-01-11 08:04 | MB ---
cc: AYSE JASSO M.D. DATE OF CONSULTATION 01/10/2017 REASON FOR CONSULTATION Possible seizure. HISTORY OF PRESENT ILLNESS Ms. Carrasco is a 46-year-old female who has a history of pneumonia, pleural effusion, anorexia, last night was found to be face-down, unwitnessed by the nurse. The right-sided of the face was twitching. When she was examined, she was noted to have twitching of the right hand. The patient denies having any twitching; however, she has no prior history of seizures. PAST MEDICAL HISTORY 1. History of a diabetes. 2. UTI. 3. Chronic kidney disease. CURRENT MEDICATIONS 1. Effexor XR 37.5 mg q.48 hours. 2. Clonidine. 3. Remeron 15 mg daily. 4. Lorazepam. 5. Megace. 6. Cefepime. 7. Lovenox. 8. Amlodipine. 9. Protonix. 10. Lopressor. 11. Insulin. 12. Tylenol. 13. Lipitor. 14. Lipitor. 15. Dilantin 200 mg b.i.d. 16. Keppra 500 mg b.i.d. NEUROLOGIC EXAMINATION VITAL SIGNS: Blood pressure 150/93, pulse 75, respirations 19, temperature 98 degrees. HIGHER CORTICAL FUNCTION: She is alert. She follows commands. CRANIAL NERVES: Intact. MOTOR EXAM: She has generalized weakness but no focal deficits. REFLEXES: Symmetric. IMAGING STUDIES CT of the brain reveals left-sided mastoiditis, no acute change intracranially identified. LABORATORY DATA The white count is 7100, hemoglobin 8.9, hematocrit 27%, platelet count 234,000. Sodium is 147, potassium 3.9, chloride 111, CO2 26, BUN is 16, creatinine 1.4, GFR is 49, glucose 117. PT 10.7, INR 1, APTT 24. Dilantin level 10.3 on the 16th. EEG is normal. IMPRESSION Suspect focal seizures given the description. RECOMMENDATIONS 1. We will increase her Dilantin to obtain a higher therapeutic level, also increase the Keppra dose to 100 mg b.i.d. 2. We will also obtain an MRI of the brain to rule out structural lesion. 3. Consider ENT evaluation of the mastoiditis. MD HUSSAIN Castillo /8:44 PM /7:55 AM
[2017-01-11] MEDS: INSULIN ASPART SUPPLEMENTAL SCALE SQ SCH ×4 (08:25→20:34)
[2017-01-11 08:47] LABS: POTASSIUM 4.1 MEQ/L (3.5-5.1)
[2017-01-11 08:52] LABS: BICARBONATE 27.1 MEQ/L (21.0-32.0)
[2017-01-11] MEDS: DOCUSATE SODIUM 50 MG/SENNA 8.6 MG TAB PO SCH ×3 (09:00→21:00)
[2017-01-11] MEDS: ATORVASTATIN 40 MG TAB PO SCH (09:13)
[2017-01-11] MEDS: cloNIDine HCL 0.1 MG TAB PO SCH ×3 (09:13→20:48)
[2017-01-11] MEDS: MULTIVITAMINS/MINERALS THERAPEUTIC TAB PO SCH (09:14)
[2017-01-11] MEDS: MEGESTROL ACETATE SUSP 400 MG/10 ML CUP PO SCH ×3 (09:14→21:00)
[2017-01-11] MEDS: levETIRAcetam 500 MG TAB PO SCH ×3 (09:14→21:00)
[2017-01-11] MEDS: METOPROLOL TARTRATE 25 MG TAB PO SCH ×3 (09:14→21:00)
[2017-01-11] MEDS: VENLAFAXINE HCL XR 37.5 MG CAP PO SCH (09:14)
[2017-01-11] MEDS: ENOXAPARIN SODIUM 30 MG/0.3 ML SYRINGE SQ SCH ×2 (09:15→20:36)
[2017-01-11] MEDS: PANTOPRAZOLE SOD 40 MG DELAYED RELEASE TAB PO SCH (09:15)
[2017-01-11] MEDS: CALCIUM CARBONATE 500 MG CHEWABLE TAB CHEW SCH ×3 (09:15→21:00)
[2017-01-11] MEDS: INSULIN GLARGINE 1,000 UNITS/10 ML VIAL SQ SCH (09:30)
--- NOTE | 2017-01-11 13:21 | HHI.PR ---
Subjective Remarks Patient seen and examined today for follow-up on anorexia, tremors, possible seizure. Nursing staff has become evaluate the patient because she was not responding to the nurse. I entered the room and the patient started answering questions with nodding her head yes or now than when asked to speak to was able to speak and indicating her concerns and that she needed to go to the bathroom. Patient still with tremors. Objective Vitals Vital Signs Date Time Temp Pulse Resp B/P Pulse Ox O2 Delivery O2 Flow Rate FiO2 01/11/17 08:00 97.8 94 18 156/79 98 01/11/17 07:00 98 Room Air 01/10/17 21:08 93 Nasal Cannula 2.00 01/10/17 21:03 80 21 01/10/17 21:00 94 Nasal Cannula 2.00 01/10/17 19:15 98.0 62 16 143/89 95 01/10/17 19:00 95 Room Air 01/10/17 14:58 98.2 75 19 150/93 92 I/O 01/10/17 01/10/17 01/10/17 01/11/17 01/11/17 01/11/17 07:00 15:00 23:00 07:00 15:00 23:00 Intake Total 240 ml 650 ml 130 ml 240 ml Output Total 2 ml 150 ml Balance 238 ml 650 ml 130 ml 90 ml Intake Oral 240 ml 650 ml 240 ml IV Total 130 ml Output Urine Total 2 ml 150 ml # Voids 2 5 # Bowel Movements 0 1 0 Result Diagram: 01/10/17 1045 01/11/17 0810 Objective Remarks GENERAL: Well-developed, well-nourished, in no acute distress. alert HEENT: Head is normocephalic without any lesions or masses noted. Facial features are symmetric. Eyes: Extraocular muscles are intact. Conjunctivae were clear. NECK: Trachea midline no deviation. CARDIAC: Regular rhythm, regular rate. S1/S2 are heard. No murmurs gallops or rubs. LUNGS: Clear to auscultation bilaterally. No wheeze, rhonchi or rales. No use of accessory muscles on inspiration or expiration. ABDOMEN: Soft, nontender. Nondistended. Bowel sounds heard in all 4 quadrants. No organomegaly or masses. Negative rebound, negative guarding EXTREMITIES: No edema, pulses are equal bilaterally. No cyanosis or clubbing NEUROLOGY: Mood and affect appear appropriate. Cranial nerves II through XII grossly intact. Moving all extremities, speech is clear. 1+ extremity tremors Procedures 12/03: IM Reymundo fixation right lower extremity Urinary Catheter: No Vascular Central Line Catheter: No A/P Assessment and Plan Altered mental status with multiple neurological symptoms to include tremors, ataxia, falls, difficulty speech CT scan of the brain did not indicate any acute abnormality EEG was normal Medications were adjusted to include discontinuation of Reglan, decrease in Remeron, Effexor Dilantin increased to 100 mg in the morning, 300 mg in the evening Keppra 1000 mg twice daily Awaiting MRI of the brain Neurology consulted for recommendations Healthcare associated pneumonia/aspiration pneumonia Legionella, streptococcal antigen were negative Cefepime IV Obtain sputum culture Pyuria Urine culture indicates 10-50,000 mixed fadia Anorexia, decreased appetite, not wanting to eat, this appears to be a choice and not a clinical abnormality Patient is on Keppra which can cause anorexia but patient has been on these for an extended period of time. No other symptoms reported. Shear Operator Helper consulted. Recommends continue diabetic diet, restart Glucerna shakes, recommend Theragran-M Continue Megace Discontinue Reglan, secondary to possible extrapyramidal symptoms, Decreased Remeron 15 mg daily,secondary to possible extrapyramidal symptoms, Decreased Effexor 37.5 mg every 48 hours secondary to possible extrapyramidal symptoms Psychiatrist discontinued Prozac and started Effexor Multiple abdominal scans have been performed without any acute abnormality If patient has any more emesis will pursue gastric emptying study. Consult psychiatry for evaluation because of her reluctant to eat, flat affect , depressed mood Psychiatrist indicates patient has perfect candidate for inpatient psychiatric management, however it cannot be involuntary. Would have to be voluntary acceptance by patient, patient is still deferring at this time Palliative care was consulted for anorexia, decreased appetite. Patient refused hospice at this time. Feeding tube was discussed and she would agree to it as a last resort. Prealbumin BUN 15 Nursing staff to do daily weights on standing scale, Respiratory insufficiency with hypoxia: Chest x-rays were performed which do show bi-basilar atelectasis, repeat x-ray shows right lower lung infiltrate, possible aspiration Patient encouraged to do incentive spirometry every couple hours Wean off oxygen to maintain O2 sats greater than 88% Hypernatremia Secondary to poor by mouth intake Encourage increased by mouth water intake Start normal saline Right closed tibial fracture status post reymundo fixation on December 03. Orthopedic recommending Nonweightbearing. Ortho was reconsulted to follow patient here at [facility]. Andra Martines spoke with Dr. Mills who states if wound looks good, can remove rafa. Hiko removed on 12/22/16 Pain control Tylenol 650 mg every 6 hours as needed for pain 110 Hypertension: Improved Norvasc 10 mg daily Lopressor 12.5 mg twice daily Clonidine 0.1 mg every 8 hours Clonidine, Apresoline as needed Metabolic acidosis with anion gap, resolved secondary to diabetic ketoacidosis, acute renal failure Status post diabetic ketoacidosis protocol Systemic inflammatory response syndrome, resolved Patient no longer meets criteria, patient did have tachycardia, leukocytosis, no infectious source Acute renal failure superimposed on chronic kidney disease stage III, back to baseline Status post IV fluid Renal ultrasound shows medical renal disease Nephrology consulted and has signed off Diabetes type 2, uncontrolled Hemoglobin A1c 10.8 Accu-Cheks with sliding scale insulin Lantus 6 units at bedtime, patient is allergic to Levemir Anemia, acute on chronic: . Stable Secondary to blood loss due to surgery and anemia of chronic disease due to renal failure. Status post transfusion with 2 PRBC Hemoglobin is stable GI was consulted due to anemia. Per GI she had colonoscopy and endoscopy done 2 months ago which was normal. She had no signs of any GI bleed. GI signed off. Hypocalcemia: Patient was initially refusing TUMS but I informed her it is necessary for fracture healing. PTH level and calcitonin level are normal Vitamin D deficiency: 25-OH Vitamin D level 9.4. Patient states she took Vitamin D at home, but this is not in med rec. Continue Vitamin D2 50,000 weekly for 6-8 weeks then transition to lower daily supplementation. History of seizure disorder, CVA and lupus Continue home medication. Keppra 1000 mg BID, Dilantin 200 mg in the morning, 300 mg at bedtime Monitor dilantin level periodically. Therapeutic on 12/26/16. DVT prophylaxis Sequential compression devices, subcutaneous Lovenox Discharge Planning Discharge planning per case management Shiraz Espinal Jan 11, 2017 13:21
[2017-01-11] MEDS: SODIUM CHLOR 0.9% 1000 ML INJ 1,000 ML IV SCH (14:03)
[2017-01-11 14:26] VITALS: BP 132/67; PULSE 92; RESP 18; O2SAT 92
[2017-01-11] MEDS ORDERED: GADODIAMIDE PF 287 MG/ML 10 ML VIAL (for RAD MRI) IV ONE (15:28)
--- NOTE | 2017-01-11 17:20 | RADRPT ---
EXAM DATE/TIME: 01/11/2017 15:04 [facility] COMPARISON: MRI BRAIN W & W/O CONTRAST, May 25, 2016, 14:18. INDICATIONS : Focal seizures. CONTRAST: 10 cc Omniscan (gadodiamide) IV MEDICAL HISTORY : Seizures. Renal insufficiency, chronic. Diabetes mellitus type 2. Hypertension. Lupus. SURGICAL HISTORY : Cholecystectomy. Hysterectomy. section. Right tib/fib. Left foot. ENCOUNTER: Subsequent ACUITY: 1 month PAIN SCORE: 0/10 LOCATION: head. TECHNIQUE: Multiplanar, multisequence MRI of the brain was performed both prior to and following the administrat ion of paramagnetic contrast. FINDINGS: Comparison a May 22. Again seen is a stable focus of signal abnormality in the left centrum s emiovale. No recent infarct. No mass, hemorrhage or midline shift. No hydrocephalus. No abnormal extr a-axial fluid collections. Postcontrast images are degraded by motion artifact no abnormal enhancement is seen. CONCLUSION: 1. Stable focus of abnormal signal involving the left centrum semiovale likely related to prior lacun ar infarct. No acute intracranial anatomy. Rafiq Nielson MD on January 11, 2017 at 17:16 Board Certified Radiologist. This report was verified electronically.
[2017-01-11 20:00] VITALS: BP 96/58; PULSE 82; RESP 18; TEMP 98; O2SAT 95
[2017-01-11] MEDS: MIRTAZAPINE ODT 15 MG TAB PO SCH ×2 (20:40→21:00)
[2017-01-12] VITALS: BP 106/62; PULSE 81; RESP 18; TEMP 97.2; O2SAT 100
[2017-01-12] MEDS: SODIUM CHLOR 0.9% 1000 ML INJ 1,000 ML IV SCH (01:02)
[2017-01-12] MEDS: CEFEPIME INJ 2,000 MG in SODIUM CHLORIDE 0.9% INJ 100 ML IV SCH (04:06)
[2017-01-12] MEDS: PHENYTOIN SODIUM 100 MG CAP PO SCH ×2 (06:00→06:53)
[2017-01-12] MEDS: cloNIDine HCL 0.1 MG TAB PO SCH ×5 (06:00→22:00)
[2017-01-12] MEDS: INSULIN ASPART SUPPLEMENTAL SCALE SQ SCH ×4 (06:52→20:12)
[2017-01-12 08:37] LABS: AUTOMATED NEUTROPHIL # 3.1 TH/MM3 (1.8-7.7); BASOPHIL % 0.9 % (0.0-2.0); EOSINOPHIL # 0.2 TH/MM3 (0-0.4); EOSINOPHIL % 4.5 % (0.0-4.0); HEMATOCRIT 23.9 % (35.0-46.0); HEMO FLAGS DIFF FINAL; LYMPH % 24.4 % (9.0-44.0); LYMPHOCYTE # 1.2 TH/MM3 (1.0-4.8); MEAN CELL VOLUME 91.7 FL (80.0-100.0); MEAN CORPUSCULAR HEMOGLOBIN 29.5 PG (27.0-34.0); MEAN CORPUSCULAR HGB CONC 32.2 % (32.0-36.0); MONO % 8.2 % (0.0-8.0); PLATELET COUNT 194 TH/MM3 (150-450); WHITE BLOOD COUNT 4.9 TH/MM3 (4.0-11.0)
[2017-01-12 08:47] LABS: BICARBONATE 24.6 MEQ/L (21.0-32.0); MAGNESIUM 2.1 MG/DL (1.5-2.5)
[2017-01-12] MEDS: PANTOPRAZOLE SOD 40 MG DELAYED RELEASE TAB PO SCH (09:00)
[2017-01-12] MEDS: SODIUM CHLOR 0.45% 1000 ML INJ 1,000 ML IV SCH ×2 (09:00→20:10)
[2017-01-12] MEDS: INSULIN GLARGINE 1,000 UNITS/10 ML VIAL SQ SCH (09:00)
[2017-01-12] MEDS: levETIRAcetam 500 MG TAB PO SCH ×2 (09:00→14:19)
[2017-01-12] MEDS: CALCIUM CARBONATE 500 MG CHEWABLE TAB CHEW SCH ×2 (09:11→14:19)
[2017-01-12] MEDS: MEGESTROL ACETATE SUSP 400 MG/10 ML CUP PO SCH ×2 (09:12→14:20)
[2017-01-12] MEDS: ATORVASTATIN 40 MG TAB PO SCH (09:12)
[2017-01-12] MEDS: METOPROLOL TARTRATE 25 MG TAB PO SCH ×2 (09:12→14:20)
[2017-01-12] MEDS: MULTIVITAMINS/MINERALS THERAPEUTIC TAB PO SCH (09:13)
[2017-01-12] MEDS: DOCUSATE SODIUM 50 MG/SENNA 8.6 MG TAB PO SCH ×2 (09:13→14:21)
[2017-01-12] MEDS: ENOXAPARIN SODIUM 30 MG/0.3 ML SYRINGE SQ SCH ×2 (09:14→20:12)
[2017-01-12 09:52] VITALS: BP 143/89; PULSE 89; RESP 15; TEMP 97.4; O2SAT 98
--- NOTE | 2017-01-12 10:40 | HHI.PR ---
Subjective Remarks Patient seen and examined today for follow-up on anorexia, possible seizures, tremors. Upon entering the room patient was lying in bed comfortable without any observable tremors. Upon speaking to the patient and trying to converse with her she started having tremors in her upper shoulders, legs, right face. Patient would not speak initially, but after coaxing she was able to say single words. Nursing staff indicates that she refused to take her medications this morning. Objective Vitals Vital Signs Date Time Temp Pulse Resp B/P Pulse Ox O2 Delivery O2 Flow Rate FiO2 01/12/17 09:52 97.4 89 15 143/89 98 01/12/17 08:00 Nasal Cannula 2.00 01/12/17 00:00 97.2 81 18 106/62 100 01/11/17 21:15 Nasal Cannula 2.00 01/11/17 21:00 98 Nasal Cannula 2.00 01/11/17 20:00 98.0 82 18 96/58 95 01/11/17 19:00 95 Room Air 01/11/17 14:26 92 18 132/67 92 I/O 01/11/17 01/11/17 01/11/17 01/12/17 01/12/17 01/12/17 07:00 15:00 23:00 07:00 15:00 23:00 Intake Total 130 ml 240 ml 0 ml 627 ml Output Total 700 ml 200 ml 250 ml Balance 130 ml -460 ml -200 ml 377 ml Intake Oral 240 ml 0 ml 0 ml IV Total 130 ml 0 ml 627 ml Output Urine Total 700 ml 200 ml 250 ml # Bowel Movements 0 0 0 Result Diagram: 01/12/17 0810 01/12/17 0810 Objective Remarks GENERAL: Well-developed, well-nourished, in no acute distress. alert HEENT: Head is normocephalic without any lesions or masses noted. Facial features are symmetric. Eyes: Extraocular muscles are intact. Conjunctivae were clear. NECK: Trachea midline no deviation. CARDIAC: Regular rhythm, regular rate. S1/S2 are heard. No murmurs gallops or rubs. LUNGS: Clear to auscultation bilaterally. No wheeze, rhonchi or rales. No use of accessory muscles on inspiration or expiration. ABDOMEN: Soft, nontender. Nondistended. Bowel sounds heard in all 4 quadrants. No organomegaly or masses. Negative rebound, negative guarding EXTREMITIES: No edema, pulses are equal bilaterally. No cyanosis or clubbing NEUROLOGY: Mood and affect appear appropriate. Cranial nerves II through XII grossly intact. Moving all extremities, speech is clear. Tremors noted in shoulders, legs, right face when I am in the room trying to talk to her. However no tremors are present whenever she is resting, also when she does not know she is being observed from the doorway. Procedures 12/03: IM Reymundo fixation right lower extremity Urinary Catheter: No Vascular Central Line Catheter: No A/P Assessment and Plan Altered mental status with multiple neurological symptoms to include tremors, ataxia, falls, difficulty speech CT scan of the brain did not indicate any acute abnormality EEG was normal Medications were adjusted to include discontinuation of Reglan, decrease in Remeron, Effexor Dilantin increased to 200 mg in the morning, 300 mg in the evening, will decrease to 200 mg twice daily. Dilantin level 26.8 Keppra 1000 mg twice daily MRI of the brain was without any acute abnormality Neurology consulted for recommendations 01/12/17 discussion with neurology. Upon review of medical records, physical findings, workup results. 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 He recommended continuation of her antiseizure medications and feels that this is related to underlying psychological issue and recommended psychiatry consult. He indicated the patient is clear for discharge to rehabilitation facility from neurological standpoint Hypernatremia, worsening Secondary to poor by mouth intake Normal saline IV was started, however with worsening sodium level will change to 1/2 normal saline Monitor sodium level Healthcare associated pneumonia/aspiration pneumonia Patient currently asymptomatic, no fever, cough, leukocytosis Legionella, streptococcal antigen were negative Completed treatment with cefepime Obtain sputum culture Pyuria Urine culture indicates 10-50,000 mixed fadia Anorexia, decreased appetite, not wanting to eat, this appears to be a choice and not a clinical abnormality Patient is on Keppra which can cause anorexia but patient has been on these for an extended period of time. No other symptoms reported. Turnstile Attendant consulted. Recommends continue diabetic diet, restart Glucerna shakes, recommend Theragran-M Continue Megace Discontinue Reglan, secondary to possible extrapyramidal symptoms, Decreased Remeron 15 mg daily,secondary to possible extrapyramidal symptoms, Decreased Effexor 37.5 mg every 48 hours secondary to possible extrapyramidal symptoms Psychiatrist discontinued Prozac and started Effexor Multiple abdominal scans have been performed without any acute abnormality If patient has any more emesis will pursue gastric emptying study. Consult psychiatry for evaluation because of her reluctant to eat, flat affect , depressed mood Psychiatrist indicates patient has perfect candidate for inpatient psychiatric management, however it cannot be involuntary. Would have to be voluntary acceptance by patient, patient is still deferring at this time Palliative care was consulted for anorexia, decreased appetite. Patient refused hospice at this time. Feeding tube was discussed and she would agree to it as a last resort. Prealbumin BUN 15 Nursing staff to do daily weights on standing scale, Respiratory insufficiency with hypoxia: Chest x-rays were performed which do show bi-basilar atelectasis, repeat x-ray shows right lower lung infiltrate, possible aspiration Patient encouraged to do incentive spirometry every couple hours Wean off oxygen to maintain O2 sats greater than 88% Right closed tibial fracture status post reymundo fixation on December 03. Orthopedic recommending Nonweightbearing. Ortho was reconsulted to follow patient here at [facility]. Andra Martines spoke with Dr. Mills who states if wound looks good, can remove lex. Lex removed on 12/22/16 Pain control Tylenol 650 mg every 6 hours as needed for pain 110 Hypertension: Improved Norvasc 10 mg daily Lopressor 12.5 mg twice daily Clonidine 0.1 mg every 8 hours Clonidine, Apresoline as needed Metabolic acidosis with anion gap, resolved secondary to diabetic ketoacidosis, acute renal failure Status post diabetic ketoacidosis protocol Systemic inflammatory response syndrome, resolved Patient no longer meets criteria, patient did have tachycardia, leukocytosis, no infectious source Acute renal failure superimposed on chronic kidney disease stage III, back to baseline Status post IV fluid Renal ultrasound shows medical renal disease Nephrology consulted and has signed off Diabetes type 2, uncontrolled Hemoglobin A1c 10.8 Accu-Cheks with sliding scale insulin Lantus 4 units at bedtime, patient is allergic to Levemir Anemia, acute on chronic: . Mild worsening after IV hydration Secondary to blood loss due to surgery and anemia of chronic disease due to renal failure. Status post transfusion with 2 PRBC Monitor hemoglobin GI was consulted due to anemia. Per GI she had colonoscopy and endoscopy done 2 months ago which was normal. She had no signs of any GI bleed. GI signed off. Hypocalcemia: Patient was initially refusing TUMS but I informed her it is necessary for fracture healing. PTH level and calcitonin level are normal Vitamin D deficiency: 25-OH Vitamin D level 9.4. Patient states she took Vitamin D at home, but this is not in med rec. Continue Vitamin D2 50,000 weekly for 6-8 weeks then transition to lower daily supplementation. History of seizure disorder, CVA and lupus Continue home medication. Keppra 1000 mg BID, Dilantin 200 mg in the morning, 200 mg at bedtime Monitor dilantin level periodically. 01/12/17 Dilantin 26.8 DVT prophylaxis Sequential compression devices, subcutaneous Lovenox Discharge Planning Discharge planning per case management Shiraz Espinal Jan 12, 2017 10:40
[2017-01-12 11:57] VITALS: O2SAT 98
[2017-01-12 14:39] LABS: BICARBONATE 21.5 MEQ/L (21.0-32.0)
[2017-01-12 14:43] LABS: POTASSIUM 4.8 MEQ/L (3.5-5.1)
--- NOTE | 2017-01-12 14:55 | HHI.PYPN ---
Subjective Remarks Patient is seen today for psychiatric reevaluation, patient is found sleeping, patient is noted to have a significant involuntary shakiness of her shoulders while sleeping. Once awaken, she seems to be lethargic, very distant, selectively mute, refused to answer most of our questions. She denies having depressive symptoms, even though her affect is very flat and apathetic. She denies suicidal and homicidal ideation, she denies visual and auditory hallucinations. Cognitive assessment is not possible due to lack of cooperation. Review of Systems ROS Limitations: Uncooperative Objective Alert: Yes Moody: Person, Situation Mood: Depressed Affect: Flat Memory Intact: Comment (no formally assessed) Hallucinations: Other (no hallucinations) Delusions: No Delusion Type: Other (no elicited) Suicidal: Ideation (no SI) Homicidal: Ideation (no HI) Insight/Judgment Poor Labs Test 01/12/17 08:10 White Blood Count 4.9 TH/MM3 Red Blood Count 2.60 MIL/MM3 Hemoglobin 7.7 GM/DL Hematocrit 23.9 % Mean Corpuscular Volume 91.7 FL Mean Corpuscular Hemoglobin 29.5 PG Mean Corpuscular Hemoglobin 32.2 % Concent Red Cell Distribution Width 15.0 % Platelet Count 194 TH/MM3 Mean Platelet Volume 9.6 FL Neutrophils (%) (Auto) 62.0 % Lymphocytes (%) (Auto) 24.4 % Monocytes (%) (Auto) 8.2 % Eosinophils (%) (Auto) 4.5 % Basophils (%) (Auto) 0.9 % Neutrophils # (Auto) 3.1 TH/MM3 Lymphocytes # (Auto) 1.2 TH/MM3 Monocytes # (Auto) 0.4 TH/MM3 Eosinophils # (Auto) 0.2 TH/MM3 Basophils # (Auto) 0.0 TH/MM3 CBC Comment DIFF FINAL Differential Comment Sodium Level 151 MEQ/L Potassium Level 4.0 MEQ/L Chloride Level 117 MEQ/L Carbon Dioxide Level 24.6 MEQ/L Anion Gap 9 MEQ/L Blood Urea Nitrogen 17 MG/DL Creatinine 1.40 MG/DL Estimat Glomerular Filtration 49 ML/MIN Rate Random Glucose 140 MG/DL Calcium Level 7.8 MG/DL Magnesium Level 2.1 MG/DL Phenytoin (Dilantin) Level 26.8 MCG/ML Vitals/IOs Vital Signs Date Time Temp Pulse Resp B/P Pulse Ox O2 Delivery O2 Flow Rate FiO2 8/2/17 11:57 98 Nasal Cannula 2.00 01/12/17 09:52 97.4 89 15 143/89 01/10/17 21:03 21 Intake and Output 01/11/17 01/11/17 01/11/17 07:59 15:59 23:59 Intake Total 130 ml 240 ml 0 ml Output Total 700 ml 200 ml Balance 130 ml -460 ml -200 ml Assessment & Plan Problem List: (1) Adjustment disorder with depressed mood ICD Code: F43.21 (2) Major depression, melancholic type Assessment & Plan: Psychiatric assessment could not be performed due to level of uncooperative of the patient. Patient seems to be lethargic, distant, may be oversedated due to high doses of antiseizure medication. Phenytoin level is 26.8. Involuntary bilateral shakiness of her both shoulders noted. At the moment of this evaluation I cannot find evidence of conversion disorder. Continue psychotropics at current doses. ICD Code: F32.9 Assessment & Plan Estimated LOS: days Justification for Cont. Inpt. Patient might benefit of psychiatric admission in voluntary basis once medically stable to treat her depression Sarthak Mace MD Jan 12, 2017 14:55
[2017-01-12] MEDS ORDERED: ENALAPRILAT 1.25 MG/ML VIAL IV PUSH PRN (16:30)
[2017-01-12 20:00] VITALS: BP 151/79; PULSE 91; RESP 16; TEMP 96.1; O2SAT 98
[2017-01-12] MEDS: MIRTAZAPINE ODT 15 MG TAB PO SCH ×2 (20:12→21:00)
[2017-01-12 20:24] LABS: ALT (GPT) 12 U/L (10-53)
[2017-01-12 20:25] LABS: AST (GOT) 13 U/L (15-37)
[2017-01-12 20:26] LABS: INDIRECT BILIRUBIN 0.1 MG/DL (0.0-0.8); TOTAL BILIRUBIN ADULT 0.2 MG/DL (0.2-1.0)
[2017-01-12 20:27] LABS: ALKALINE PHOSPHATASE 151 U/L (45-117)
[2017-01-12] MEDS ORDERED: PHENYTOIN SODIUM 100 MG CAP PO SCH (21:00)
[2017-01-12 21:40] VITALS: O2SAT 88
[2017-01-13] VITALS (11 sets, daily range): BP systolic 121–179; BP diastolic 64–90; PULSE 86–106; RESP 7–20; TEMP 96.3–99.1; O2SAT 95–100
[2017-01-13] MEDS: cloNIDine HCL 0.1 MG TAB PO SCH ×3 (06:00→20:36)
[2017-01-13] MEDS: PHENYTOIN SODIUM 100 MG CAP PO SCH (06:00)
[2017-01-13 06:24] LABS: AUTOMATED NEUTROPHIL # 4.4 TH/MM3 (1.8-7.7); BASOPHIL # 0.2 TH/MM3 (0-0.2); BASOPHIL % 3.9 % (0.0-2.0); EOSINOPHIL # 0.2 TH/MM3 (0-0.4); EOSINOPHIL % 3.2 % (0.0-4.0); HEMATOCRIT 25.4 % (35.0-46.0); HEMO FLAGS DIFF FINAL; LYMPHOCYTE # 1.1 TH/MM3 (1.0-4.8); MONO % 5.6 % (0.0-8.0); NEUT % 69.3 % (16.0-70.0); PLATELET COUNT 216 TH/MM3 (150-450); RED BLOOD COUNT 2.79 MIL/MM3 (4.00-5.30); WHITE BLOOD COUNT 6.3 TH/MM3 (4.0-11.0)
[2017-01-13 06:28] LABS: POTASSIUM 3.9 MEQ/L (3.5-5.1)
[2017-01-13] MEDS: INSULIN ASPART SUPPLEMENTAL SCALE SQ SCH ×4 (06:41→20:34)
[2017-01-13 06:43] LABS: BICARBONATE 18.4 MEQ/L (21.0-32.0)
[2017-01-13] MEDS: SODIUM CHLOR 0.45% 1000 ML INJ 1,000 ML IV SCH (08:25)
[2017-01-13] MEDS: ATORVASTATIN 40 MG TAB PO SCH (09:00)
[2017-01-13] MEDS: MULTIVITAMINS/MINERALS THERAPEUTIC TAB PO SCH (09:00)
[2017-01-13] MEDS: levETIRAcetam 500 MG TAB PO SCH ×2 (09:00→20:15)
[2017-01-13] MEDS: MEGESTROL ACETATE SUSP 400 MG/10 ML CUP PO SCH ×2 (09:00→20:12)
[2017-01-13] MEDS: PANTOPRAZOLE SOD 40 MG DELAYED RELEASE TAB PO SCH (09:00)
[2017-01-13] MEDS: CALCIUM CARBONATE 500 MG CHEWABLE TAB CHEW SCH ×2 (09:00→20:15)
[2017-01-13] MEDS: ENOXAPARIN SODIUM 30 MG/0.3 ML SYRINGE SQ SCH ×2 (09:00→20:13)
[2017-01-13] MEDS: VENLAFAXINE HCL XR 37.5 MG CAP PO SCH (09:00)
[2017-01-13] MEDS: METOPROLOL TARTRATE 25 MG TAB PO SCH ×2 (09:00→20:14)
[2017-01-13] MEDS: ERGOCALCIFEROL (VIT D2) 50,000 UNIT CAP PO SCH (09:00)
[2017-01-13] MEDS: DOCUSATE SODIUM 50 MG/SENNA 8.6 MG TAB PO SCH ×2 (09:00→20:15)
[2017-01-13] MEDS: INSULIN GLARGINE 1,000 UNITS/10 ML VIAL SQ SCH (09:00)
[2017-01-13 14:25] LABS: POTASSIUM 3.8 MEQ/L (3.5-5.1)
[2017-01-13 14:33] LABS: BICARBONATE 15.4 MEQ/L (21.0-32.0)
--- NOTE | 2017-01-13 15:08 | HHI.PR ---
Subjective Remarks Patient seen and examined today for follow-up on anorexia, pseudoseizures. Again Juan seen the patient and the room she is lying in bed resting comfortably. There is obviously no shaking or tremors when laying in bed. When we will current up she was still without tremors initially then she started twitching her shoulders and right sided facial twitching. She was only moaning, she would not speak. When asked her if she wants a feeding tube because she is not eating and/or take your medication she shook her head yes. Apparently throughout the day the patient has been talking to her mother as well as talking to nursing staff a phlebotomy site and now that they cannot do specific procedures or take her blood or give her medications. Objective Vitals Vital Signs Date Time Temp Pulse Resp B/P Pulse Ox O2 Delivery O2 Flow Rate FiO2 01/13/17 09:18 Nasal Cannula 2.00 01/13/17 07:00 95 Nasal Cannula 2.00 01/13/17 04:08 96.5 99 19 139/79 100 01/13/17 00:08 96.3 100 20 121/80 96 01/12/17 21:40 88 21 01/12/17 20:00 98 Nasal Cannula 2.00 01/12/17 20:00 96.1 91 16 151/79 98 I/O 01/12/17 01/12/17 01/12/17 01/13/17 01/13/17 01/13/17 07:00 15:00 23:00 07:00 15:00 23:00 Intake Total 627 ml 1955 ml 878 ml Output Total 250 ml 725 ml 75 ml Balance 377 ml 1230 ml 803 ml Intake Oral 0 ml 0 ml 0 ml IV Total 627 ml 1955 ml 878 ml Output Urine Total 250 ml 725 ml 75 ml # Bowel Movements 0 1 Result Diagram: 01/13/17 0600 01/13/17 1300 Objective Remarks GENERAL: Well-developed, well-nourished, in no acute distress. Awakens nicely, however is not wanting to speak HEENT: Head is normocephalic without any lesions or masses noted. Facial features are symmetric. Eyes: Extraocular muscles are intact. Conjunctivae were clear. NECK: Trachea midline no deviation. CARDIAC: Regular rhythm, regular rate. S1/S2 are heard. No murmurs gallops or rubs. LUNGS: Clear to auscultation bilaterally. No wheeze, rhonchi or rales. No use of accessory muscles on inspiration or expiration. ABDOMEN: Soft, nontender. Nondistended. Bowel sounds heard in all 4 quadrants. No organomegaly or masses. Negative rebound, negative guarding EXTREMITIES: No edema, pulses are equal bilaterally. No cyanosis or clubbing NEUROLOGY: Mood and affect appear appropriate. Cranial nerves II through XII grossly intact. Moving all extremities, speech is clear. Tremors noted in shoulders, legs, right face when I am in the room trying to talk to her. However no tremors are present whenever she is resting, also when she does not know she is being observed from the doorway. Procedures 12/03: IM Reymundo fixation right lower extremity Urinary Catheter: No Vascular Central Line Catheter: No A/P Assessment and Plan Metabolic acidosis with anion gap, recurrent Likely secondary to diabetes, could be ketoacidosis, lactic acidosis will need further workup Check lactic acid level Check urinalysis Check ABG Check beta hydroxybutyrate Transferr to ICU Discuss with nephrology who recommended sterile water with 1/1/2 amp of sodium bicarbonate Continue monitor BMP Altered mental status with multiple neurological symptoms to include tremors, ataxia, falls, difficulty speech CT scan of the brain did not indicate any acute abnormality EEG was normal Medications were adjusted to include discontinuation of Reglan, decrease in Remeron, Effexor Dilantin increased to 200 mg in the morning, 300 mg in the evening, will decrease to 200 mg twice daily on hold. Dilantin level 25.5 Keppra 1000 mg twice daily, on hold MRI of the brain was without any acute abnormality Neurology consulted for recommendations 01/12/17 discussion with neurology. Upon review of medical records, physical findings, workup results. 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 He recommended continuation of her antiseizure medications and feels that this is related to underlying psychological issue and recommended psychiatry consult. He indicated the patient is clear for discharge to rehabilitation facility from neurological standpoint 01/13/17 discussed with palliative care, psychiatry. Psychiatry indicates that patient is in catatonic state. We'll initiate Ativan provocation. After initial administration Ativan patient did become more alert and was able to speak. Hypernatremia, still elevated but stable Secondary to poor by mouth intake 1/2 normal saline Monitor sodium level Healthcare associated pneumonia/aspiration pneumonia Patient currently asymptomatic, no fever, cough, leukocytosis Legionella, streptococcal antigen were negative Completed treatment with cefepime Obtain sputum culture Pyuria Urine culture indicates 10-50,000 mixed fadia Anorexia, decreased appetite, not wanting to eat, this appears to be a choice and not a clinical abnormality Patient is on Keppra which can cause anorexia but patient has been on these for an extended period of time. No other symptoms reported. Asbestos Wire Finisher consulted. Recommends continue diabetic diet, restart Glucerna shakes, recommend Theragran-M Continue Megace Discontinue Reglan, secondary to possible extrapyramidal symptoms, Decreased Remeron 15 mg daily,secondary to possible extrapyramidal symptoms, Decreased Effexor 37.5 mg every 48 hours secondary to possible extrapyramidal symptoms Psychiatrist discontinued Prozac and started Effexor Multiple abdominal scans have been performed without any acute abnormality If patient has any more emesis will pursue gastric emptying study. Consult psychiatry for evaluation because of her reluctant to eat, flat affect , depressed mood Psychiatrist indicates patient has perfect candidate for inpatient psychiatric management, however it cannot be involuntary. Would have to be voluntary acceptance by patient, patient is still deferring at this time Psychiatrist reconsulted and indicates that the patient has in [place] dietary shakiness. Lethargic, selectively mute, refusing answer questions, indicating her affect is very flat and apathetic. States that patient would benefit from psychiatric admission in a voluntary basis was medically stable. Palliative care was consulted for anorexia, decreased appetite. Patient refused hospice at this time. Feeding tube was discussed and she would agree to it as a last resort. Prealbumin BUN 15 Nursing staff to do daily weights on standing scale, Reconsulted palliative care Insert NG tube and start tube feeding We'll need to discuss with psychiatry patient is appropriate for medical psychiatry floor Respiratory insufficiency with hypoxia: Chest x-rays were performed which do show bi-basilar atelectasis, repeat x-ray shows right lower lung infiltrate, possible aspiration Patient encouraged to do incentive spirometry every couple hours Wean off oxygen to maintain O2 sats greater than 88% Right closed tibial fracture status post reymundo fixation on December 03. Orthopedic recommending Nonweightbearing. Ortho was reconsulted to follow patient here at [facility]. Andra Martines spoke with Dr. Mills who states if wound looks good, can remove rafa. [place] removed on 12/22/16 Pain control Tylenol 650 mg every 6 hours as needed for pain 110 Hypertension: Improved Norvasc 10 mg daily Lopressor 12.5 mg twice daily Clonidine 0.1 mg every 8 hours Clonidine, Apresoline as needed Systemic inflammatory response syndrome, resolved Patient no longer meets criteria, patient did have tachycardia, leukocytosis, no infectious source Acute renal failure superimposed on chronic kidney disease stage III, back to baseline Status post IV fluid Renal ultrasound shows medical renal disease Nephrology consulted and has signed off Diabetes type 2, uncontrolled Hemoglobin A1c 10.8 Accu-Cheks with sliding scale insulin Lantus 4 units at bedtime, patient is allergic to Levemir Anemia, acute on chronic: . Mild worsening after IV hydration Secondary to blood loss due to surgery and anemia of chronic disease due to renal failure. Status post transfusion with 2 PRBC Monitor hemoglobin GI was consulted due to anemia. Per GI she had colonoscopy and endoscopy done 2 months ago which was normal. She had no signs of any GI bleed. GI signed off. Hypocalcemia: Patient was initially refusing TUMS but I informed her it is necessary for fracture healing. PTH level and calcitonin level are normal Vitamin D deficiency: 25-OH Vitamin D level 9.4. Patient states she took Vitamin D at home, but this is not in med rec. Continue Vitamin D2 50,000 weekly for 6-8 weeks then transition to lower daily supplementation. History of seizure disorder, CVA and lupus Continue home medication. Hold anticonvulsants at this time. Keppra 1000 mg BID, Dilantin 200 mg in the morning, 200 mg at bedtime Monitor dilantin level periodically. 01/12/17 Dilantin 25.5 DVT prophylaxis Sequential compression devices, subcutaneous Lovenox Discharge Planning Discharge planning per case management Shiraz Espinal Jan 13, 2017 15:08
[2017-01-13] MEDS ORDERED: LORazepam 2 MG/ML VIAL IV PUSH STA ×2 (15:42)
[2017-01-13 15:48] LABS: BLOOD, URINE LARGE (NEG); GLUCOSE,URINE NEG (NEG); KETONE, URINE 40 mg/dL (NEG); NITRITE,URINE NEG (NEG); PH, URINE 5.5 (5.0-8.5)
--- NOTE | 2017-01-13 15:48 | RADRPT ---
EXAM DATE/TIME: 01/13/2017 15:34 [facility] COMPARISON: CHEST SINGLE AP, January 05, 2017, 13:13. INDICATIONS : Respiratory status. MEDICAL HISTORY : Hypertension. Cerebrovascular disease. Lupus. Renal disease seizure disorder SURGICAL HISTORY : Cholecystectomy. Hysterectomy. section. Right tib/fib. Left foot ENCOUNTER: Subsequent ACUITY: 1 month PAIN SCORE: 8/10 LOCATION: Bilateral upper chest FINDINGS: Portable upright AP view of the chest demonstrates a normal-sized cardiac silhouette. Lungs are under inflated with mild atelectasis at the bases. No effusion or pneumothorax is identified. Bones and sof t tissues demonstrate no acute finding. CONCLUSION: Underinflation with atelectasis at the lung bases. No other acute finding is appreciated. Jim Michaels MD on January 13, 2017 at 15:45 Board Certified Radiologist. This report was verified electronically.
[2017-01-13 15:51] LABS: BLOOD GAS BASE EXCESS -10.3 mmol/L (-2-2); BLOOD GAS CARBOXYHEMOGLOBIN 1.2 % (0-4); BLOOD GAS HCO3 15 mmol/L (22-26); BLOOD GAS METHEMOGLOBIN 1.4 % (0-2); BLOOD GAS O2 HGB SATURATION 96 % (90-100); BLOOD GAS PCO2 30 mmHg (38-42); BLOOD GAS PO2 106 mmHg (61-120)
[2017-01-13 15:52] LABS: CRITICAL VALUE YES; DRAW SITE LT RADIAL; LITER FLOW 2 L/M; NUMBER OF ARTERIAL PUNCTURES 1; OXYGEN DEVICE NASAL CANNULA; STAT NO; ULNAR PULSE PRESENT
--- NOTE | 2017-01-13 16:02 | HHI.PYPN ---
Subjective Remarks Patient is seen for psychiatric reevaluation today , she is alert, but poorly cooperative, with marked negativism, flat affect, mutism, stiffness, mild bilateral hand tremors, poverty of speech and prominent blocking thought. The only verbalization she does is repetitively says "help me help me" Patient has not been eating and poorly cooperative with her p.o medications. Review of Systems ROS Limitations: Uncooperative Objective Alert: Yes [place]: Person Mood: Depressed Affect: Flat Memory Intact: Comment (no formally assessed) Hallucinations: Other (no hallucinations) Delusions: No Delusion Type: Other (no elicited) Suicidal: Ideation (no SI) Homicidal: Ideation (no HI) Insight/Judgment poor Labs Test 01/12/17 01/13/17 01/13/17 19:55 06:00 13:00 Total Bilirubin 0.2 MG/DL Direct Bilirubin LESS THAN 0.1 MG/DL Indirect Bilirubin 0.1 MG/DL Aspartate Amino Transf 13 U/L (AST/SGOT) Alanine Aminotransferase 12 U/L (ALT/SGPT) Alkaline Phosphatase 151 U/L Total Protein 5.0 GM/DL Albumin 1.6 GM/DL Thyroid Stimulating Hormone 1.550 uIU/ML 3rd Gen White Blood Count 6.3 TH/MM3 Red Blood Count 2.79 MIL/MM3 Hemoglobin 8.4 GM/DL Hematocrit 25.4 % Mean Corpuscular Volume 91.0 FL Mean Corpuscular Hemoglobin 30.0 PG Mean Corpuscular Hemoglobin 33.0 % Concent Red Cell Distribution Width 15.0 % Platelet Count 216 TH/MM3 Mean Platelet Volume 9.9 FL Neutrophils (%) (Auto) 69.3 % Lymphocytes (%) (Auto) 18.0 % Monocytes (%) (Auto) 5.6 % Eosinophils (%) (Auto) 3.2 % Basophils (%) (Auto) 3.9 % Neutrophils # (Auto) 4.4 TH/MM3 Lymphocytes # (Auto) 1.1 TH/MM3 Monocytes # (Auto) 0.4 TH/MM3 Eosinophils # (Auto) 0.2 TH/MM3 Basophils # (Auto) 0.2 TH/MM3 CBC Comment DIFF FINAL Differential Comment Sodium Level 148 MEQ/L 148 MEQ/L Potassium Level 3.9 MEQ/L 3.8 MEQ/L Chloride Level 116 MEQ/L 115 MEQ/L Carbon Dioxide Level 18.4 MEQ/L 15.4 MEQ/L Anion Gap 14 MEQ/L 18 MEQ/L Blood Urea Nitrogen 16 MG/DL 18 MG/DL Creatinine 1.60 MG/DL 1.70 MG/DL Estimat Glomerular Filtration 42 ML/MIN 39 ML/MIN Rate Random Glucose 132 MG/DL 143 MG/DL Calcium Level 7.6 MG/DL 7.9 MG/DL Magnesium Level 2.0 MG/DL Phenytoin (Dilantin) Level 25.5 MCG/ML Vitals/IOs Vital Signs Date Time Temp Pulse Resp B/P Pulse Ox O2 Delivery O2 Flow Rate FiO2 01/13/17 15:00 106 18 172/90 01/13/17 09:18 Nasal Cannula 2.00 01/13/17 07:00 95 01/13/17 04:08 96.5 01/12/17 21:40 21 Intake and Output 01/12/17 01/12/17 01/12/17 07:59 15:59 23:59 Intake Total 627 ml 1955 ml Output Total 250 ml 725 ml Balance 377 ml 1230 ml Assessment & Plan Problem List: (1) Adjustment disorder with depressed mood ICD Code: F43.21 (2) Major depression, melancholic type Assessment & Plan: Patient with prominent negativism, abulia, apathetic, confused, blocking thought and poverty of speech. Meet with medical team, deliberating between hypoactive delirium, phenytoin intoxication and catatonia. Will do catatonic challenge with with Ativan 2 mg iv stat and Ativan 2 mg q6h. hold if patient becomes too sedated. will hold Effexor 37.5. Will follow closely. ICD Code: F32.9 Assessment & Plan Estimated LOS: days Justification for Cont. Inpt. might need psychiatric admission once medically stable. Sarthak Mace MD Jan 13, 2017 16:02
[2017-01-13 16:03] LABS: METHOD OF COLLECTION CATH
[2017-01-13 16:04] LABS: URINE COLOR YELLOW (YELLW/STRAW)
[2017-01-13 16:13] LABS: WBC, URINE INNUM /hpf (0-5)
[2017-01-13 16:14] LABS: RBC, URINE 0-3 /hpf (0-3)
[2017-01-13 16:15] LABS: BACTERIA, URINE MOD /hpf; COMMENT (UR) CULTURE INDICATED; CULTURE IF INDICATED CULTURE INDICATED; TRANSITIONAL EPI CELLS, URINE 0-5 /hpf
[2017-01-13] MEDS: SODIUM BICARBONATE IV SCH (17:58)
[2017-01-13] MEDS: WATER STERILE FOR IV SCH (17:58)
[2017-01-13] MEDS: LORazepam 2 MG TAB PO SCH (18:04)
[2017-01-13] MEDS ORDERED: PHENYTOIN SODIUM 100 MG CAP PO SCH (21:00)
--- NOTE | 2017-01-13 21:26 | HHI.HCPN ---
Reason for visit a. To assist with evaluation and management of symptoms including:nausea; tremor vs seizures; aletered mental status b. To assist medical decision maker(s) with: better understanding of current medical conditions; weighing benefits/burdens of medical treatment options; making medical treatment decisions. . Subjective/Interval History Since palliative care was last involved patient has developed some tremor vs seizure activity. She has become mostly non verbal and refusing medications, treatments, and care. She is not eating/drinking. She has been seen by neurology and psychiatry. With initial concern for seizures, her phenytoin and levetiracetam were increased. EEGs are negative. CT and MRI imaging unremarkable. Neurology now suspects pseudoseizures. Psych was initially thinking depression, but is now concerned about catatonia. Dilantin level remains elevated. When you take account of her low protein levels, her dilantin is quite elevated. There are concerns for possible dilantin toxicity. At time of my visit, patient is non verbal. There are whimpers when I try to examine her. She follows no commands for me. There is a constant tremor around her mouth but no tremor/shaking of her extremities. Nurse tells me that when she was firm with her, she got her to sit up and take her anti-hypertensive meds. She was able to speak a few words at that time. . Family/friend interactions The patient's father is her designated health care surrogate. I spoke with him by phone for approximately 25 minutes. He was able to tell me that the patient has been having similar "spells" for approximately 5-6 years. These have been and becoming more frequent. Initially they would happen about once a year then twice a year and then particularly over the last year more frequently. When these started home, they never resolved. Family will almost always bring the patient to the hospital. Father is unable to tell me what other doctors have felt were the underlying cause. Normally, these spells dissipate within 3 days and the patient starts eating again. Father is concerned that the duration is increasing. Patient's father feel strongly that there is no mental health component. He reports that between these events the patient is quite functional. He does not believe she is depressed. As the patient's health care surrogate, he desires ongoing aggressive care. He specifically asked if the patient could be transferred to [facility] in [place] if we are unable to arrive at a diagnosis and get her better. He feel strongly that she would want ongoing aggressive care if she were thinking clearly. He wants us to go forward with any treatments or procedures she needs even if she objects in her current incapacitated state. . Advance Directives Health Care Surrogate: Copy in medical record (completed 12/27/2016) Advance Directive Specifics Health Care Surrogate(s): The patient's designated health care surrogate is her Boyd Jewell The first alternate is the patient's Penny Jewell A second alternate is the patient's ex -- Mary Bain. . Documented care wishes: No written documentation of health care preferences/wishes/goals . Significant change in goals: No significant change in goals. . Objective Vital Signs Date Time Temp Pulse Resp B/P Pulse Ox O2 Delivery O2 Flow Rate FiO2 01/13/17 15:00 106 18 172/90 01/13/17 09:18 Nasal Cannula 2.00 01/13/17 08:00 99.1 90 18 121/80 95 01/13/17 07:00 95 Nasal Cannula 2.00 01/13/17 04:08 96.5 99 19 139/79 100 01/13/17 00:08 96.3 100 20 121/80 96 01/12/17 21:40 88 21 Intake & Output 01/13/17 01/13/17 07:00 19:00 Intake Total 1993 ml 750 ml Output Total 550 ml 50 ml Balance 1443 ml 700 ml Intake Oral 0 ml 80 ml IV Total 1993 ml 670 ml Output Urine Total 550 ml 50 ml # Bowel Movements 1 0 . Physical Exam CONSTITUTIONAL/GENERAL: This is an adequately nourished female slumped in bed. She is nonverbal. She [place] when examined. She is able to follow no commands. She does track me at times. SKIN: No jaundice, rashes, or lesions. No wounds seen anteriorly. Skin temperature appropriate. Not diaphoretic. HEAD: Atraumatic. Normocephalic. EYES: Pupils equal and round and reactive. Extraocular motions intact. No scleral icterus. No injection or drainage. Fundi not examined. ENT: Unable to evaluate hearing. Nose without bleeding or purulent drainage. Throat without visible erythema, exudates, masses, or lesions. NECK: Trachea midline. CARDIOVASCULAR: Regular rate and rhythm without murmurs, gallops, or rubs. No JVD. Peripheral pulses symmetric. RESPIRATORY/CHEST: Symmetric, unlabored respirations. Clear to auscultation. Breath sounds equal bilaterally. No wheezes, rales, or rhonchi. GASTROINTESTINAL: Abdomen soft, non-tender, nondistended. No hepato-splenomegaly , or palpable masses. No guarding. Bowel sounds present. GENITOURINARY: Without palpable bladder distension. MUSCULOSKELETAL: Extremities without clubbing, cyanosis, or edema. No mottling. LYMPHATICS: Not examined NEUROLOGICAL: Continuous fine tremor around mouth. No tremor or seizure-like activity of the extremities. Patient is nonverbal and unable to follow commands. Mostly limp but able to try and push my hand away when I go to open her eyes. PSYCHIATRIC: Unable to assess due to level of responsiveness. Possible catatonia . Diagnostic Tests Laboratory Laboratory Tests Test 01/11/17 01/12/17 01/12/17 01/12/17 08:10 08:10 14:10 19:55 Sodium Level 149 MEQ/L 151 MEQ/L 149 MEQ/L (136-145) (136-145) (136-145) Potassium Level 4.1 MEQ/L 4.0 MEQ/L 4.8 MEQ/L (3.5-5.1) (3.5-5.1) (3.5-5.1) Chloride Level 113 MEQ/L 117 MEQ/L 118 MEQ/L (98-107) (98-107) (98-107) Carbon Dioxide Level 27.1 MEQ/L 24.6 MEQ/L 21.5 MEQ/L (21.0-32.0) (21.0-32.0) (21.0-32.0) Anion Gap 9 MEQ/L (5-15) 9 MEQ/L (5-15) 10 MEQ/L (5-15) Blood Urea Nitrogen 16 MG/DL (7-18) 17 MG/DL (7-18) 17 MG/DL (7-18) Creatinine 1.50 MG/DL 1.40 MG/DL 1.50 MG/DL (0.50-1.00) (0.50-1.00) (0.50-1.00) Estimat Glomerular Filtration 45 ML/MIN (>89) 49 ML/MIN (>89) 45 ML/MIN (>89) Rate Random Glucose 180 MG/DL 140 MG/DL 136 MG/DL (74-106) (74-106) (74-106) Calcium Level 8.1 MG/DL 7.8 MG/DL 7.9 MG/DL (8.5-10.1) (8.5-10.1) (8.5-10.1) Rapid Plasma Reagin NON-REACTIVE (NON-REACTVE) White Blood Count 4.9 TH/MM3 (4.0-11.0) Red Blood Count 2.60 MIL/MM3 (4.00-5.30) Hemoglobin 7.7 GM/DL (11.6-15.3) Hematocrit 23.9 % (35.0-46.0) Mean Corpuscular Volume 91.7 FL (80.0-100.0) Mean Corpuscular Hemoglobin 29.5 PG (27.0-34.0) Mean Corpuscular Hemoglobin 32.2 % Concent (32.0-36.0) Red Cell Distribution Width 15.0 % (11.6-17.2) Platelet Count 194 TH/MM3 (150-450) Mean Platelet Volume 9.6 FL (7.0-11.0) Neutrophils (%) (Auto) 62.0 % (16.0-70.0) Lymphocytes (%) (Auto) 24.4 % (9.0-44.0) Monocytes (%) (Auto) 8.2 % (0.0-8.0) Eosinophils (%) (Auto) 4.5 % (0.0-4.0) Basophils (%) (Auto) 0.9 % (0.0-2.0) Neutrophils # (Auto) 3.1 TH/MM3 (1.8-7.7) Lymphocytes # (Auto) 1.2 TH/MM3 (1.0-4.8) Monocytes # (Auto) 0.4 TH/MM3 (0-0.9) Eosinophils # (Auto) 0.2 TH/MM3 (0-0.4) Basophils # (Auto) 0.0 TH/MM3 (0-0.2) CBC Comment DIFF FINAL Differential Comment Magnesium Level 2.1 MG/DL (1.5-2.5) Phenytoin (Dilantin) Level 26.8 MCG/ML (10.0-20.0) Total Bilirubin 0.2 MG/DL (0.2-1.0) Direct Bilirubin LESS THAN 0.1 MG/DL (0.0-0.2) Indirect Bilirubin 0.1 MG/DL (0.0-0.8) Aspartate Amino Transf 13 U/L (15-37) (AST/SGOT) Alanine Aminotransferase 12 U/L (10-53) (ALT/SGPT) Alkaline Phosphatase 151 U/L (45-117) Total Protein 5.0 GM/DL (6.4-8.2) Albumin 1.6 GM/DL (3.4-5.0) Thyroid Stimulating Hormone 1.550 uIU/ML 3rd Gen (0.358-3.740) Test 01/13/17 01/13/17 01/13/17 01/13/17 06:00 13:00 15:40 15:43 White Blood Count 6.3 TH/MM3 (4.0-11.0) Red Blood Count 2.79 MIL/MM3 (4.00-5.30) Hemoglobin 8.4 GM/DL (11.6-15.3) Hematocrit 25.4 % (35.0-46.0) Mean Corpuscular Volume 91.0 FL (80.0-100.0) Mean Corpuscular Hemoglobin 30.0 PG (27.0-34.0) Mean Corpuscular Hemoglobin 33.0 % Concent (32.0-36.0) Red Cell Distribution Width 15.0 % (11.6-17.2) Platelet Count 216 TH/MM3 (150-450) Mean Platelet Volume 9.9 FL (7.0-11.0) Neutrophils (%) (Auto) 69.3 % (16.0-70.0) Lymphocytes (%) (Auto) 18.0 % (9.0-44.0) Monocytes (%) (Auto) 5.6 % (0.0-8.0) Eosinophils (%) (Auto) 3.2 % (0.0-4.0) Basophils (%) (Auto) 3.9 % (0.0-2.0) Neutrophils # (Auto) 4.4 TH/MM3 (1.8-7.7) Lymphocytes # (Auto) 1.1 TH/MM3 (1.0-4.8) Monocytes # (Auto) 0.4 TH/MM3 (0-0.9) Eosinophils # (Auto) 0.2 TH/MM3 (0-0.4) Basophils # (Auto) 0.2 TH/MM3 (0-0.2) CBC Comment DIFF FINAL Differential Comment Sodium Level 148 MEQ/L 148 MEQ/L (136-145) (136-145) Potassium Level 3.9 MEQ/L 3.8 MEQ/L (3.5-5.1) (3.5-5.1) Chloride Level 116 MEQ/L 115 MEQ/L (98-107) (98-107) Carbon Dioxide Level 18.4 MEQ/L 15.4 MEQ/L (21.0-32.0) (21.0-32.0) Anion Gap 14 MEQ/L (5-15) 18 MEQ/L (5-15) Blood Urea Nitrogen 16 MG/DL (7-18) 18 MG/DL (7-18) Creatinine 1.60 MG/DL 1.70 MG/DL (0.50-1.00) (0.50-1.00) Estimat Glomerular Filtration 42 ML/MIN (>89) 39 ML/MIN (>89) Rate Random Glucose 132 MG/DL 143 MG/DL (74-106) (74-106) Calcium Level 7.6 MG/DL 7.9 MG/DL (8.5-10.1) (8.5-10.1) Magnesium Level 2.0 MG/DL (1.5-2.5) Phenytoin (Dilantin) Level 25.5 MCG/ML (10.0-20.0) Urine Collection Type CATH Urine Color YELLOW (YELLW/STRAW) Urine Turbidity CLOUDY (CLEAR) Urine pH 5.5 (5.0-8.5) Urine Specific [place] 1.024 (1.002-1.035) Urine Protein 300 OR GREATER mg/dL (NEG-TRACE) Urine Glucose (UA) NEG mg/dL (NEG) Urine Ketones 40 mg/dL (NEG) Urine Occult Blood LARGE (NEG) Urine Nitrite NEG (NEG) Urine Bilirubin NEG (NEG) Urine Leukocyte Esterase SMALL (NEG) Urine RBC 0-3 /hpf (0-3) Urine WBC INNUM /hpf (0-5) Urine WBC Clumps FEW (NONE) Urine Squamous Epithelial 3-5 /hpf (0-5) Cells Urine Transitional Epithelial 0-5 /hpf (NONE) Cells Urine Bacteria MOD /hpf (NONE) Urine Hyaline Casts 3-5 /lpf (RARE) Urine Fine Granular Casts 3-5 /lpf (NONE) Urine Coarse Granular Casts 25-49 /lpf (NONE) Urine Yeast (Budding) FEW (NONE) Microscopic Urinalysis Comment CULTURE INDICATED Blood Gas Puncture Site LT RADIAL Blood Gas Patient Temperature 37.0 Blood Gas HCO3 15 mmol/L (22-26) Blood Gas Base Excess -10.3 mmol/L (-2-2) Blood Gas Oxygen Saturation 96 % (90-100) Arterial Blood pH 7.31 (7.380-7.420) Arterial Blood Partial 30 mmHg (38-42) Pressure CO2 Arterial Blood Partial 106 mmHg Pressure O2 (61-120) Arterial Blood Oxygen Content 11.0 Vol % (12.0-20.0) Arterial Blood 1.2 % (0-4) Carboxyhemoglobin Arterial Blood Methemoglobin 1.4 % (0-2) Blood Gas Hemoglobin 8.0 G/DL (12.0-16.0) Oxygen Delivery Device NASAL CANNULA Blood Gas Liter Flow 2 L/M Test 01/13/17 16:00 Lactic Acid Level 0.9 mmol/L (0.4-2.0) B-Hydroxybutyrate 8.84 MMOL/L (0.00-0.39) . Result Diagram: 01/13/17 0600 01/13/17 1300 Microbiology Microbiology Date/Time Procedure Status Source Growth 01/13/17 15:40 Urine Culture Received Urine Catheterized Urine Pending . Imaging Last Impressions Chest X-Ray 01/13/17 0000 Signed Impressions: Service Date/Time: January 15:34 - CONCLUSION: Underinflation with atelectasis at the lung bases. No other acute finding is appreciated. Jim Michaels MD Brain MRI 01/11/17 0000 Signed Impressions: Service Date/Time: Wednesday, January 11, 2017 15:04 - CONCLUSION: 1. Stable focus of abnormal signal involving the left centrum semiovale likely related to prior lacunar infarct. No acute intracranial anatomy. Rafiq Nielson MD Head CT 01/10/17 0917 Signed Impressions: Service Date/Time: Tuesday, January 10, 2017 09:49 - CONCLUSION: 1. Interval development of left sided mastoiditis since 11/22/2016. Clinical correlation is recommended. 2. Otherwise, no acute intracranial abnormality. Eriberto Madison MD Abdomen/Pelvis CT 12/25/16 1100 Signed Impressions: Service Date/Time: Sunday, December 25, 2016 12:00 - CONCLUSION: Interval development of anasarca, small bilateral effusions and small to moderate ascites. No significant ileus, hydronephrosis, mass or lymphadenopathy. Status post cholecystectomy. Bobby Martins MD Abdomen X-Ray 12/25/16 0857 Signed Impressions: Service Date/Time: Sunday, December 25, 2016 09:27 - CONCLUSION: No acute disease. Bobby Martins MD Upper Extremity Ultrasound 12/24/16 0000 Signed Impressions: Service Date/Time: Saturday, December 24, 2016 11:58 - CONCLUSION: Normal examination. Tr Luna MD Renal Ultrasound 12/24/16 0000 Signed Impressions: Service Date/Time: Saturday, December 24, 2016 11:53 - CONCLUSION: 1. Increased echogenicity of the renal cortex which can be seen with underlying medical renal disease. 2. No findings to indicate renal obstruction. 3. Small bilateral effusions and a trace amount of ascites within the abdomen. Umesh Farah MD Tibia/Fibula X-Ray 12/03/16 0000 Signed Impressions: Service Date/Time: Saturday, December 03, 2016 15:09 - CONCLUSION: Excellent alignment of the patient's tibial fracture post rodding. Patient has a minimally displaced fibular fracture as well. Umesh Farah MD Ankle X-Ray 12/02/16 0000 Signed Impressions: Service Date/Time: November 18:16 - CONCLUSION: 1. The ankle mortise is intact. 2. Distal tibial and fibular fractures again noted. Please see right leg report for further details. Javier Marino MD . Procedures * Intramedullary yuri fixation right lower extremity fracture on 12/03/16 . Assessment and Plan Disease Oriented Problem List: (1) Closed fracture of right tibia and fibula Comment: Repaired on 12/03/16 with intramedullary yuri fixation (2) Anemia (3) Lupus (4) DM (diabetes mellitus), type 1 with hyperosmolarity (5) CKD (chronic kidney disease), stage III (6) Seizure disorder Comment: Has reported long-term seizure disorder. Now with new tremor. Unclear if this is pseudoseizure, part of catatonia, medication reaction, etc. (7) Acute encephalopathy Comment: Patient has been having similar "spells" per family for 5-6 years and the etiology is uncertain. Spells have been more frequent and lasting longer of late. . (8) Acidosis Comment: Uncertain etiology Symptom Scale: (1) Nausea 0-10 Scale: 0 (had it earlier.) (2) Decrease in appetite 0-10 Scale: Unable to quantify Comment: Hardly eating/drinking anything as part of this "spell" of altered mental status. . Pertinent Non-Medical Issues Psychosocial: Normally lives with her son and cares for herself. Spiritual: Religious Legal: Father is her designated health care surrogate. Ethical issues impacting care: Patient is incapacitated. She will probably regain capacity. Father is her health care surrogate. . Important Contacts Kevin Jewell (father and Primary HCS) [phone] ( home) [phone] (cell) Harriet Corcoran (mother and 1st Alternate HCS) [phone] (home ) Liliya bain(ex and 2nd alternate HCS) [phone] . Prognosis Patient is a 46-year-old female with a past medical history significant for diabetes (poorly controlled, prior multiple admission for DKA), hypertension, asthma, CKD stage III, strokes 2014 (with residual deficit right upper extremity ), seizure, and lupus. Pt came in with right ankle fracture and was repaired. Had ICU stay due to respiratory distress thought to be narcotic related, and anemia(thought to be ckd or anemia of chronic disease). Per family, patient is had increasingly frequent spells of being nonverbal, not eating/drinking that normally last 2-3 days. Cause of these spells remains unclear. Patient now has new tremors as well as developing acidosis of uncertain etiology. . Code Status: Full Code Plan == Code Stats -- FULL CODE == Decision making patient is currently incapacitated to make her own health care decisions. It is likely she will regain capacity. While in capacitated, her designated health care surrogate is her fatherKevin Corcoran [phone]; C [phone]. He should be contacted for all healthcare decision-making. A copy of the health care surrogate designation is on the paper chart. == Goals of medical treatment. Father believes the patient would want on going aggressive goals of care including resuscitation attempts. Father believes that if the patient were awake and alert she would want all treatments and procedures done to get her better. He feels that while she is incapacitated and she does not understand what's happening the medical team should go ahead and do what's needed even if she objects or refuses. Father independently asked the medical team to consider transferring her to [facility] if she does not begin to improve soon. == Altered mental status: Per family, patient has been having these type of "spells" for approximately 5-6 years. They are becoming more frequent and this one appears to be of the longest duration. Patient normally wakes up and starts eating again within 2-3 days. Etiology is quite unclear. Agree with medical team to hold the phenytoin in case the land toxicity is playing a role. Would also address the acidosis. Father does NOT feel there is a psych component to these but Psych has recommended a catatonia treatment trial using IV lorazepam. == Pain: Does not appear to be currently an issue. No opiates are currently ordered. No further recommendations at this time == Nausea/vomiting: Currently controlled. == Given patient's expressed desires while capacitated and surrogate's stated goals, would not hesitate to force feeding tube and use restraints if necessary to allow for nutrition/hydration. == Consider transfer to [facility] at family request if there is no improvement over the next days. == Palliative Care will continue to follow to assist with symptom management and to clarify goals of medical treatment as the clincal course evolves. . Time Spent Total Floor Time (mins): 40 (Total floor time included chart review, patient exam, discussion with medical team, discussion with psychiatrist, telephone conversation with father, collaboration with primary nurse, and documentation. ) Face to Face Time (mins): 15 >50% Counseling/Coord of Care: Yes Attestation To help prompt me to consider important information that might be impacting today's encounter and assessment, information from prior notes written by myself or my colleagues may have been "brought forward" into today's note. My signature on this note, however, is an attestation that I personally performed the exam, history, and/or decision-making noted today, and, unless otherwise indicated, the interactions with patient, family, and staff as well as the review of records all occurred today. I also attest that the listed assessment and stated plan reflect my best clinical judgment today based on the combination of historical information, prior notes, and today's exam/ interactions. When time spent is documented, it refers only to time spent today by the signer, or if indicated, combined time spent today by collaborating physician/nurse practitioner. Fam Gerardo MD Jan 13, 2017 21:25
[2017-01-13] MEDS: MIRTAZAPINE ODT 15 MG TAB PO SCH (23:05)
[2017-01-14] VITALS (26 sets, daily range): BP systolic 87–174; BP diastolic 51–102; PULSE 78–94; RESP 8–16; TEMP 98–98.8; O2SAT 98–100
[2017-01-14] MEDS: WATER STERILE FOR IV SCH ×2 (04:55→15:44)
[2017-01-14] MEDS: SODIUM BICARBONATE IV SCH ×2 (04:55→15:44)
[2017-01-14 05:02] LABS: CHLORIDE 110 MEQ/L (98-107); POTASSIUM 3.8 MEQ/L (3.5-5.1); SODIUM (NA) 143 MEQ/L (136-145)
[2017-01-14 05:07] LABS: ANION GAP 11 MEQ/L (5-15); BICARBONATE 21.6 MEQ/L (21.0-32.0); BLOOD UREA NITROGEN 19 MG/DL (7-18); MAGNESIUM 1.7 MG/DL (1.5-2.5)
[2017-01-14 05:14] LABS: GLOMERULAR FILTRATION RATE 34 ML/MIN (>89)
[2017-01-14 05:23] LABS: CALCIUM-PROTEIN CORRECTED 8.5 MG/DL (8.5-10.1); CREATINE KINASE 29 U/L (26-192)
[2017-01-14] MEDS ORDERED: CHLORHEXIDINE GLUCONATE 2 % 1 PACK (2 CLOTHS)(extra cloths) TOPICAL PRN (06:00)
[2017-01-14] MEDS: LORazepam 2 MG TAB PO SCH ×5 (06:00→18:06)
[2017-01-14] MEDS: cloNIDine HCL 0.1 MG TAB PO SCH ×3 (06:39→20:34)
[2017-01-14] MEDS: INSULIN ASPART SUPPLEMENTAL SCALE SQ SCH ×4 (06:46→20:33)
[2017-01-14 07:06] LABS: AUTOMATED NEUTROPHIL # 4.5 TH/MM3 (1.8-7.7); BASOPHIL # 0.1 TH/MM3 (0-0.2); BASOPHIL % 1.5 % (0.0-2.0); EOSINOPHIL # 0.3 TH/MM3 (0-0.4); EOSINOPHIL % 4.5 % (0.0-4.0); HEMATOCRIT 25.8 % (35.0-46.0); HEMO FLAGS DIFF FINAL; LYMPH % 20.6 % (9.0-44.0); LYMPHOCYTE # 1.4 TH/MM3 (1.0-4.8); MEAN CELL VOLUME 91.8 FL (80.0-100.0); MEAN CORPUSCULAR HEMOGLOBIN 29.6 PG (27.0-34.0); MEAN CORPUSCULAR HGB CONC 32.3 % (32.0-36.0); MONO % 7.5 % (0.0-8.0); NEUT % 65.9 % (16.0-70.0); PLATELET COUNT 224 TH/MM3 (150-450); RED BLOOD COUNT 2.81 MIL/MM3 (4.00-5.30); RED CELL DISTRIBUTION WIDTH 15.1 % (11.6-17.2); WHITE BLOOD COUNT 6.8 TH/MM3 (4.0-11.0)
--- NOTE | 2017-01-14 08:51 | HHI.PYPN ---
Subjective Remarks Patient seen today for psychiatric reevaluation in the morning in the ICU. Patient is fully alert, awake, reports feeling much better today. Described his mood as "ok". Reported good sleep last night. Patient states that her appetite is decreased, but would try to eat more today. Patient is oriented 3. He is able to answer question asked. Flat affect, but not blocking thought , no poverty of speech, no stiffness, no marked negativism, no marked bradykinesia noted today. Patient definitely shows improvement from picture presented yesterday. She denies suicidal and homicidal ideation, she denies visual and auditory hallucinations. Nurses reported an immediate positive reaction to Ativan 2 mg IV given yesterday. Review of Systems Other No somatic complaints Objective Alert: Yes [place]: Person Mood: Depressed Affect: Flat Memory Intact: Comment (no formally assessed) Hallucinations: Other (no hallucinations) Delusions: No Delusion Type: Other (no elicited) Suicidal: Ideation (no SI) Homicidal: Ideation (no HI) Insight/Judgment fair Labs Test 01/13/17 01/13/17 01/13/17 01/13/17 13:00 15:40 15:43 16:00 Sodium Level 148 MEQ/L Potassium Level 3.8 MEQ/L Chloride Level 115 MEQ/L Carbon Dioxide Level 15.4 MEQ/L Anion Gap 18 MEQ/L Blood Urea Nitrogen 18 MG/DL Creatinine 1.70 MG/DL Estimat Glomerular Filtration 39 ML/MIN Rate Random Glucose 143 MG/DL Calcium Level 7.9 MG/DL Urine Collection Type CATH Urine Color YELLOW Urine Turbidity CLOUDY Urine pH 5.5 Urine Specific Mathias 1.024 Urine Protein 300 OR GREATER mg/dL Urine Glucose (UA) NEG mg/dL Urine Ketones 40 mg/dL Urine Occult Blood LARGE Urine Nitrite NEG Urine Bilirubin NEG Urine Leukocyte Esterase SMALL Urine RBC 0-3 /hpf Urine WBC INNUM /hpf Urine WBC Clumps FEW Urine Squamous Epithelial 3-5 /hpf Cells Urine Transitional Epithelial 0-5 /hpf Cells Urine Bacteria MOD /hpf Urine Hyaline Casts 3-5 /lpf Urine Fine Granular Casts 3-5 /lpf Urine Coarse Granular Casts 25-49 /lpf Urine Yeast (Budding) FEW Microscopic Urinalysis Comment CULTURE INDICATED Blood Gas Puncture Site LT RADIAL Blood Gas Patient Temperature 37.0 Blood Gas HCO3 15 mmol/L Blood Gas Base Excess -10.3 mmol/L Blood Gas Oxygen Saturation 96 % Arterial Blood pH 7.31 Arterial Blood Partial 30 mmHg Pressure CO2 Arterial Blood Partial 106 mmHg Pressure O2 Arterial Blood Oxygen Content 11.0 Vol % Arterial Blood 1.2 % Carboxyhemoglobin Arterial Blood Methemoglobin 1.4 % Blood Gas Hemoglobin 8.0 G/DL Oxygen Delivery Device NASAL CANNULA Blood Gas Liter Flow 2 L/M Lactic Acid Level 0.9 mmol/L B-Hydroxybutyrate 8.84 MMOL/L Test 01/14/17 01/14/17 04:30 06:45 Sodium Level 143 MEQ/L Potassium Level 3.8 MEQ/L Chloride Level 110 MEQ/L Carbon Dioxide Level 21.6 MEQ/L Anion Gap 11 MEQ/L Blood Urea Nitrogen 19 MG/DL Creatinine 1.90 MG/DL Estimat Glomerular Filtration 34 ML/MIN Rate Random Glucose 183 MG/DL Calcium Level 7.4 MG/DL Protein Corrected Calcium 8.5 MG/DL Magnesium Level 1.7 MG/DL Total Creatine Kinase 29 U/L Troponin I LESS THAN 0.02 NG/ML Total Protein 5.2 GM/DL Phenytoin (Dilantin) Level 22.8 MCG/ML White Blood Count 6.8 TH/MM3 Red Blood Count 2.81 MIL/MM3 Hemoglobin 8.3 GM/DL Hematocrit 25.8 % Mean Corpuscular Volume 91.8 FL Mean Corpuscular Hemoglobin 29.6 PG Mean Corpuscular Hemoglobin 32.3 % Concent Red Cell Distribution Width 15.1 % Platelet Count 224 TH/MM3 Mean Platelet Volume 9.8 FL Neutrophils (%) (Auto) 65.9 % Lymphocytes (%) (Auto) 20.6 % Monocytes (%) (Auto) 7.5 % Eosinophils (%) (Auto) 4.5 % Basophils (%) (Auto) 1.5 % Neutrophils # (Auto) 4.5 TH/MM3 Lymphocytes # (Auto) 1.4 TH/MM3 Monocytes # (Auto) 0.5 TH/MM3 Eosinophils # (Auto) 0.3 TH/MM3 Basophils # (Auto) 0.1 TH/MM3 CBC Comment DIFF FINAL Differential Comment B-Hydroxybutyrate 3.61 MMOL/L Date/Time Procedure Status Source Growth 01/13/17 15:40 Urine Culture Received Urine Catheterized Urine Pending Vitals/IOs Vital Signs Date Time Temp Pulse Resp B/P Pulse Ox O2 Delivery O2 Flow Rate FiO2 01/14/17 08:15 100 Nasal Cannula 2.00 01/14/17 06:15 88 01/14/17 06:15 16 166/84 01/14/17 04:00 98.8 01/12/17 21:40 21 Intake and Output 01/13/17 01/13/17 01/13/17 07:59 15:59 23:59 Intake Total 878 ml 750 ml 706 ml Output Total 75 ml 50 ml 100 ml Balance 803 ml 700 ml 606 ml Assessment & Plan Problem List: (1) Adjustment disorder with depressed mood ICD Code: F43.21 (2) Major depression, melancholic type Assessment & Plan: Continue Remeron 15 mg at bedtime for depression. ICD Code: F32.9 (3) Catatonia Assessment & Plan: Today patient seems to be more engageable in a conversation , alert, oriented 3, still distant, flat affect, but definitely less stuporous , negative, stiff. Nursing reported an immediate change in behavior and mood yesterday after 2 mg IV of Ativan. As we suspected, catatonia is highly possible, however the etiology and source of catatonia is still unclear. We'll continue Ativan 2 mg by mouth every 6 hours. Monitor closely oversedation. Discuss with neurology the possibility of discontinuing Keppra, since Keppra has been linked with several neuropsychiatric symptoms including catatonia. Depakote could be a reasonable alternative. Patient could benefit of a psychiatric admission in med psych once medically more stable. We'll follow-up. ICD Code: F06.1 Assessment & Plan Estimated LOS: days Justification for Cont. Inpt. Patient could benefit of psychiatric admission. Sarthak Mace MD Jan 14, 2017 08:51
[2017-01-14] MEDS: PANTOPRAZOLE SOD 40 MG DELAYED RELEASE TAB PO SCH (09:00)
[2017-01-14] MEDS: INSULIN GLARGINE 1,000 UNITS/10 ML VIAL SQ SCH (09:00)
[2017-01-14] MEDS: ENOXAPARIN SODIUM 30 MG/0.3 ML SYRINGE SQ SCH (09:00)
[2017-01-14] MEDS: levETIRAcetam 500 MG TAB PO SCH ×2 (09:00→20:33)
[2017-01-14] MEDS: DOCUSATE SODIUM 50 MG/SENNA 8.6 MG TAB PO SCH ×2 (09:00→20:33)
[2017-01-14] MEDS: MEGESTROL ACETATE SUSP 400 MG/10 ML CUP PO SCH ×2 (09:00→20:33)
[2017-01-14] MEDS: ATORVASTATIN 40 MG TAB PO SCH (09:00)
[2017-01-14] MEDS: MULTIVITAMINS/MINERALS THERAPEUTIC TAB PO SCH (09:00)
[2017-01-14] MEDS: CALCIUM CARBONATE 500 MG CHEWABLE TAB CHEW SCH ×2 (09:00→20:33)
--- NOTE | 2017-01-14 09:14 | HHI.NPPN ---
Subjective General Problems: Anemia Renal Failure: Chronic, Acute Interval History We were reconsulted for management of worsening renal function and metabolic acidosis. (Eva Marcelo) Review of Systems General Constitutional: Fatigue General Remarks she has no complaints poor oral intake per medical team periodic catatonia (Eva Marcelo) Objective Data Data 01/13/17 01/14/17 19:00 07:00 Intake Total 750 ml 1036 ml Output Total 50 ml 250 ml Balance 700 ml 786 ml Intake Oral 80 ml 450 ml IV Total 670 ml 586 ml Output Urine Total 50 ml 250 ml # Bowel Movements 0 2 Vital Signs Date Time Temp Pulse Resp B/P Pulse Ox O2 Delivery O2 Flow Rate FiO2 01/14/17 08:15 100 Nasal Cannula 2.00 01/14/17 06:15 88 01/14/17 06:15 88 16 166/84 100 01/14/17 06:01 86 16 168/102 100 01/14/17 06:01 86 01/14/17 05:01 88 10 140/73 98 01/14/17 04:00 84 01/14/17 04:00 98.8 84 14 152/88 100 01/14/17 03:00 86 01/14/17 03:00 86 14 156/78 100 01/14/17 02:21 86 11 161/84 100 01/14/17 02:21 86 01/14/17 01:00 82 14 135/66 100 01/14/17 00:00 98.0 82 8 115/54 99 01/14/17 00:00 82 01/13/17 23:00 86 7 130/66 100 01/13/17 22:00 90 9 124/64 100 01/13/17 22:00 90 01/13/17 21:00 94 10 157/68 100 01/13/17 20:20 100 Nasal Cannula 2.00 01/13/17 20:08 98.3 102 12 179/81 100 01/13/17 20:00 100 01/13/17 19:01 104 13 137/87 100 01/13/17 19:00 100 Nasal Cannula 2.00 01/13/17 15:00 106 18 172/90 01/13/17 09:18 Nasal Cannula 2.00 (Eva Marcelo) -: 01/14/17 0645 01/14/17 0430 Microbiology 01/13/17 Urine Culture, Received Pending Imaging Last Impressions Chest X-Ray 01/13/17 0000 Signed Impressions: Service Date/Time: January 15:34 - CONCLUSION: Underinflation with atelectasis at the lung bases. No other acute finding is appreciated. Jim Michaels MD Brain MRI 01/11/17 0000 Signed Impressions: Service Date/Time: Wednesday, January 11, 2017 15:04 - CONCLUSION: 1. Stable focus of abnormal signal involving the left centrum semiovale likely related to prior lacunar infarct. No acute intracranial anatomy. Rafiq Nielson MD Head CT 01/10/17 0917 Signed Impressions: Service Date/Time: Tuesday, January 10, 2017 09:49 - CONCLUSION: 1. Interval development of left sided mastoiditis since 11/22/2016. Clinical correlation is recommended. 2. Otherwise, no acute intracranial abnormality. Eriberto Madison MD Abdomen/Pelvis CT 12/25/16 1100 Signed Impressions: Service Date/Time: Sunday, December 25, 2016 12:00 - CONCLUSION: Interval development of anasarca, small bilateral effusions and small to moderate ascites. No significant ileus, hydronephrosis, mass or lymphadenopathy. Status post cholecystectomy. Bobby Martins MD Abdomen X-Ray 12/25/16 0857 Signed Impressions: Service Date/Time: Sunday, December 25, 2016 09:27 - CONCLUSION: No acute disease. Bobby Martins MD Upper Extremity Ultrasound 12/24/16 0000 Signed Impressions: Service Date/Time: Saturday, December 24, 2016 11:58 - CONCLUSION: Normal examination. Tr Luna MD Renal Ultrasound 12/24/16 0000 Signed Impressions: Service Date/Time: Saturday, December 24, 2016 11:53 - CONCLUSION: 1. Increased echogenicity of the renal cortex which can be seen with underlying medical renal disease. 2. No findings to indicate renal obstruction. 3. Small bilateral effusions and a trace amount of ascites within the abdomen. Umesh Farah MD Tibia/Fibula X-Ray 12/03/16 0000 Signed Impressions: Service Date/Time: Saturday, December 03, 2016 15:09 - CONCLUSION: Excellent alignment of the patient's tibial fracture post rodding. Patient has a minimally displaced fibular fracture as well. Umesh Farah MD Ankle X-Ray 12/02/16 0000 Signed Impressions: Service Date/Time: November 18:16 - CONCLUSION: 1. The ankle mortise is intact. 2. Distal tibial and fibular fractures again noted. Please see right leg report for further details. Javier Marino MD Tubes & Lines: [place] Drip Comment bicarb gtt (Fozia,Eva B. AUTO PORTER) Physical Exam General Appearance: Well Developed, Comfortable (Fozia,Eva B. AUT[employer] PORTER) Throat Throat Exam: Oral Mucosa [place] & Moist (Fozia,Eva B. AUT[employer] PORTER) Neck Neck Exam: Neck Supple (Fozia,Eva B. AUT[employer] PORTER) Pulmonary Resp Exam: Clear Bilaterally, Breath Sounds Equal, Decreased Bases (Fozia, Eva B. AUT[employer] PORTER) Cardiology CV Exam: Regular, Normal Sinus Rhythm (Fozia,Eva B. AUT[employer] PORTER) Gastrointestinal/Abdomen GI Exam: Soft, Non-Tender, Bowel Sounds Present (Fozia,Eva B. AUT[employer] PORTER) Musculoskeletal MS Exam: Joints Intact, Normal Tone (Fozia,Eva B. AUT[employer] PORTER) Integumentary Skin Exam: Clear, Warm, Dry, Intact (Fozia,Eva B. AUT[employer] PORTER) Extremeties Extremities Exam: No Edema, Pedal Pulses Palpable (Fozia,Eva B. AUT[employer] PORTER) Neurologic Neuro Exam: Alert, Awake, Oriented, Moving All Extremities (Fozia,Eva B. AUT[employer] PORTER) Psychiatric Psych Exam: Appropriate Responses (Fozia,Eva B. AUT[employer] PORTER) VTE Prophylaxis Meds: Lovenox (Fozia,Eva B. AUT[employer] PORTER) PUD Prophylasis PUD Prophylaxis: Protonix (Fozia,Eva B. AUT[employer] PORTER) Assessment/Plan Discussed Condition With: Patient Assessment Summary: REGAN/Acute Renal Failure, Anemia of CKD, Hypertension, Diabetes Mellitus Problem List: (1) Acute kidney failure Plan: her creatinine was 1.3 on 12/31, has gradually risen to 1.9 unsure of etiology of this episode of REGAN on 12/31 and again on 01/04 she had relative hypotension, may have progressed to ATN her oral intake is reportedly poor started on sterile water with bicarb (75mEq), continue has meade, appears non oliguric repeat UA appears infected, culture in progress I would recommend to minimize all non essential medications D/W medical team, consider changing her Lovenox to once daily, hold Protonix , hold JOAQUÍN avoid NSAIDS, other nephrotoxins monitor renal function daily (2) CKD (chronic kidney disease), stage III Plan: Due to diabetic nephropathy monitor renal function her baseline creatinine is 1.3-1.7 (3) DKA (diabetic ketoacidoses) Plan: hx of, she has developed anion gap metabolic acidosis, but only a blood sugar of 130-180s. at this time continue insulin therapy continue IVF follow BMP (4) Metabolic acidosis Plan: she has elevated B-hydroxybutyrate possible DKA however no glucosuria and her glucose is not very high ? starvation ketosis, her oral intake reportedly is very poor, she is not talking/eating on bicarb gtt, correcting (Eva Marcelo) Problem List: (1) Acute kidney failure Plan: her creatinine was 1.3 on 12/31, has gradually risen to 1.9 unsure of etiology of this episode of REGAN on 12/31 and again on 01/04 she had relative hypotension, may have progressed to ATN her oral intake is reportedly poor started on sterile water with bicarb (75mEq), continue has meade, appears non oliguric repeat UA appears infected, culture in progress I would recommend to minimize all non essential medications D/W medical team, consider changing her Lovenox to once daily, hold Protonix , hold JOAQUÍN avoid NSAIDS, other nephrotoxins monitor renal function daily (2) CKD (chronic kidney disease), stage III Plan: Due to diabetic nephropathy monitor renal function her baseline creatinine is 1.3-1.7 (3) DKA (diabetic ketoacidoses) Plan: hx of, she has developed anion gap metabolic acidosis, but only a blood sugar of 130-180s. at this time continue insulin therapy continue IVF follow BMP (4) Metabolic acidosis Plan: she has elevated B-hydroxybutyrate possible DKA however no glucosuria and her glucose is not very high ? starvation ketosis, her oral intake reportedly is very poor, she is not talking/eating on bicarb gtt, correcting Plan patient was seen and examined. Reduce IVF. Consider insulin drip as she continues to have elevated beta hydroxy butyrate. Agree with above assessment and plan. Hypernatremia and acidosis both have improved. (Valdez Patterson MD) Problem Qualifiers (1) DKA (diabetic ketoacidoses): Eva Marcelo Jan 14, 2017 09:14 Valdez Patterson MD Jan 14, 2017 14:17
[2017-01-14] MEDS: METOPROLOL TARTRATE 25 MG TAB PO SCH ×2 (10:31→20:34)
--- NOTE | 2017-01-14 14:50 | HHI.HCPN ---
Reason for visit a. To assist with evaluation and management of symptoms including:nausea; tremor vs seizures; aletered mental status b. To assist medical decision maker(s) with: better understanding of current medical conditions; weighing benefits/burdens of medical treatment options; making medical treatment decisions. . Subjective/Interval History Patient was transferred to the medical ICU since I visited her on 01/13/17. She is now able to communicate, but remains lethargic. She denies pain, SOB, nausea , at time of my visit. She tells me she has no appetite. She has been receiving the 2 mg doses of lorazepam q 6 hours as a challenge to see if she has catatonia. I ask her if she feels at all confused or "foggy, " and she responds slowly, "I feel OK." Her primary nurse reports that she has periods where she is awake and communicating (though slowly) and periods where she is less responsive. She continues to refuse food/drink and many of her medications. Nephrology is seeing her because of her declining renal function and her metabolic acidosis. She is on a bicarbonate drip. There are no tremors at time of my visit, but the primary nurse tells me he has seen some facial tremors/twitching from time to time. Still with episodic elevated BPs. VS otherwise unremarkable. Urine output about 1000 cc on 01/13. WBC and Hg are stable. Creatinine up to 1.9; GFR down to 34. Total protein 5.2 Phenytoin level still high at 22.8 (and effective level probably significantly higher due to her low protein state). U/A from 01/13/17 suggests possible UTI even though initial culture was negative. Culture of 01/13/17 showing strep species. Beta hydroxybutyrate elevated at 3.61. . Family/friend interactions No interactions with family/friends today. . Advance Directives Health Care Surrogate: Copy in medical record (completed 12/27/2016) Advance Directive Specifics Health Care Surrogate(s): The patient's designated health care surrogate is her Boyd Jewell The first alternate is the patient's motherHarriet Jewell A second alternate is the patient's ex -- Mary Bain. . Documented care wishes: No written documentation of health care preferences/wishes/goals . Objective Vital Signs Date Time Temp Pulse Resp B/P Pulse Ox O2 Delivery O2 Flow Rate FiO2 01/14/17 14:01 84 10 129/74 100 01/14/17 14:01 84 01/14/17 12:01 90 11 145/82 100 01/14/17 12:01 90 01/14/17 11:00 90 11 145/85 98 01/14/17 10:00 90 16 150/87 100 01/14/17 10:00 94 01/14/17 09:01 90 01/14/17 09:00 99 01/14/17 09:00 90 13 172/91 99 01/14/17 08:15 100 Nasal Cannula 2.00 01/14/17 08:00 94 01/14/17 08:00 100 01/14/17 08:00 94 14 160/86 100 01/14/17 07:00 99 01/14/17 07:00 92 10 174/93 99 01/14/17 06:15 88 01/14/17 06:15 88 16 166/84 100 01/14/17 06:01 86 16 168/102 100 01/14/17 06:01 86 01/14/17 05:01 88 10 140/73 98 01/14/17 04:00 84 01/14/17 04:00 98.8 84 14 152/88 100 01/14/17 03:00 86 01/14/17 03:00 86 14 156/78 100 01/14/17 02:21 86 11 161/84 100 01/14/17 02:21 86 01/14/17 01:00 82 14 135/66 100 01/14/17 00:00 98.0 82 8 115/54 99 01/14/17 00:00 82 01/13/17 23:00 86 7 130/66 100 01/13/17 22:00 90 9 124/64 100 01/13/17 22:00 90 01/13/17 21:00 94 10 157/68 100 01/13/17 20:20 100 Nasal Cannula 2.00 01/13/17 20:08 98.3 102 12 179/81 100 01/13/17 20:00 100 01/13/17 19:01 104 13 137/87 100 01/13/17 19:00 100 Nasal Cannula 2.00 01/13/17 15:00 106 18 172/90 Intake & Output 01/14/17 01/14/17 07:00 19:00 Intake Total 1036 ml Output Total 250 ml Balance 786 ml Intake Oral 450 ml IV Total 586 ml Output Urine Total 250 ml # Bowel Movements 2 . Physical Exam CONSTITUTIONAL/GENERAL: This is an adequately nourished female. She is lethargic and verbally slow, but is able to answer simple questions and is in no acute distress. SKIN: No jaundice, rashes, or lesions. No wounds seen anteriorly. Skin temperature appropriate. Not diaphoretic. HEAD: Atraumatic. Normocephalic. EYES: Pupils equal and round. Extraocular motions intact. No scleral icterus. No injection or drainage. Fundi not examined. ENT: Hearing grossly normal. Nose without bleeding or purulent drainage. Throat without visible erythema, exudates, masses, or lesions. NECK: Trachea midline. CARDIOVASCULAR: Regular rate and rhythm without murmurs, gallops, or rubs. No JVD. RESPIRATORY/CHEST: Symmetric, unlabored respirations. Clear to auscultation. Breath sounds equal bilaterally. No wheezes, rales, or rhonchi. GASTROINTESTINAL: Abdomen soft, non-tender, nondistended. No hepato-splenomegaly , or palpable masses. No guarding. Bowel sounds present. GENITOURINARY: Without palpable bladder distension. Maurer catheter in place. MUSCULOSKELETAL: Extremities without clubbing, cyanosis, or edema. No mottling. LYMPHATICS: Not examined NEUROLOGICAL: No tremors or seizure activity noted during my visit. Answers questions, but appears cognitively slow. Moves all extremities. PSYCHIATRIC: Unable to assess due to level of responsiveness. . Diagnostic Tests Laboratory Laboratory Tests Test 01/12/17 01/12/17 01/12/17 01/13/17 08:10 14:10 19:55 06:00 White Blood Count 4.9 TH/MM3 6.3 TH/MM3 (4.0-11.0) (4.0-11.0) Red Blood Count 2.60 MIL/MM3 2.79 MIL/MM3 (4.00-5.30) (4.00-5.30) Hemoglobin 7.7 GM/DL 8.4 GM/DL (11.6-15.3) (11.6-15.3) Hematocrit 23.9 % 25.4 % (35.0-46.0) (35.0-46.0) Mean Corpuscular Volume 91.7 FL 91.0 FL (80.0-100.0) (80.0-100.0) Mean Corpuscular Hemoglobin 29.5 PG 30.0 PG (27.0-34.0) (27.0-34.0) Mean Corpuscular Hemoglobin 32.2 % 33.0 % Concent (32.0-36.0) (32.0-36.0) Red Cell Distribution Width 15.0 % 15.0 % (11.6-17.2) (11.6-17.2) Platelet Count 194 TH/MM3 216 TH/MM3 (150-450) (150-450) Mean Platelet Volume 9.6 FL 9.9 FL (7.0-11.0) (7.0-11.0) Neutrophils (%) (Auto) 62.0 % 69.3 % (16.0-70.0) (16.0-70.0) Lymphocytes (%) (Auto) 24.4 % 18.0 % (9.0-44.0) (9.0-44.0) Monocytes (%) (Auto) 8.2 % (0.0-8.0) 5.6 % (0.0-8.0) Eosinophils (%) (Auto) 4.5 % (0.0-4.0) 3.2 % (0.0-4.0) Basophils (%) (Auto) 0.9 % (0.0-2.0) 3.9 % (0.0-2.0) Neutrophils # (Auto) 3.1 TH/MM3 4.4 TH/MM3 (1.8-7.7) (1.8-7.7) Lymphocytes # (Auto) 1.2 TH/MM3 1.1 TH/MM3 (1.0-4.8) (1.0-4.8) Monocytes # (Auto) 0.4 TH/MM3 0.4 TH/MM3 (0-0.9) (0-0.9) Eosinophils # (Auto) 0.2 TH/MM3 0.2 TH/MM3 (0-0.4) (0-0.4) Basophils # (Auto) 0.0 TH/MM3 0.2 TH/MM3 (0-0.2) (0-0.2) CBC Comment DIFF FINAL DIFF FINAL Differential Comment Sodium Level 151 MEQ/L 149 MEQ/L 148 MEQ/L (136-145) (136-145) (136-145) Potassium Level 4.0 MEQ/L 4.8 MEQ/L 3.9 MEQ/L (3.5-5.1) (3.5-5.1) (3.5-5.1) Chloride Level 117 MEQ/L 118 MEQ/L 116 MEQ/L (98-107) (98-107) (98-107) Carbon Dioxide Level 24.6 MEQ/L 21.5 MEQ/L 18.4 MEQ/L (21.0-32.0) (21.0-32.0) (21.0-32.0) Anion Gap 9 MEQ/L (5-15) 10 MEQ/L (5-15) 14 MEQ/L (5-15) Blood Urea Nitrogen 17 MG/DL (7-18) 17 MG/DL (7-18) 16 MG/DL (7-18) Creatinine 1.40 MG/DL 1.50 MG/DL 1.60 MG/DL (0.50-1.00) (0.50-1.00) (0.50-1.00) Estimat Glomerular Filtration 49 ML/MIN (>89) 45 ML/MIN (>89) 42 ML/MIN (>89) Rate Random Glucose 140 MG/DL 136 MG/DL 132 MG/DL (74-106) (74-106) (74-106) Calcium Level 7.8 MG/DL 7.9 MG/DL 7.6 MG/DL (8.5-10.1) (8.5-10.1) (8.5-10.1) Magnesium Level 2.1 MG/DL 2.0 MG/DL (1.5-2.5) (1.5-2.5) Phenytoin (Dilantin) Level 26.8 MCG/ML 25.5 MCG/ML (10.0-20.0) (10.0-20.0) Total Bilirubin 0.2 MG/DL (0.2-1.0) Direct Bilirubin LESS THAN 0.1 MG/DL (0.0-0.2) Indirect Bilirubin 0.1 MG/DL (0.0-0.8) Aspartate Amino Transf 13 U/L (15-37) (AST/SGOT) Alanine Aminotransferase 12 U/L (10-53) (ALT/SGPT) Alkaline Phosphatase 151 U/L (45-117) Total Protein 5.0 GM/DL (6.4-8.2) Albumin 1.6 GM/DL (3.4-5.0) Thyroid Stimulating Hormone 1.550 uIU/ML 3rd Gen (0.358-3.740) Levetiracetam (Keppra) Level 5.0 mcg/mL (12.0 - 46.0) Test 01/13/17 01/13/17 01/13/17 01/13/17 13:00 15:40 15:43 16:00 Sodium Level 148 MEQ/L (136-145) Potassium Level 3.8 MEQ/L (3.5-5.1) Chloride Level 115 MEQ/L (98-107) Carbon Dioxide Level 15.4 MEQ/L (21.0-32.0) Anion Gap 18 MEQ/L (5-15) Blood Urea Nitrogen 18 MG/DL (7-18) Creatinine 1.70 MG/DL (0.50-1.00) Estimat Glomerular Filtration 39 ML/MIN (>89) Rate Random Glucose 143 MG/DL (74-106) Calcium Level 7.9 MG/DL (8.5-10.1) Urine Collection Type CATH Urine Color YELLOW (YELLW/STRAW) Urine Turbidity CLOUDY (CLEAR) Urine pH 5.5 (5.0-8.5) Urine Specific [place] 1.024 (1.002-1.035) Urine Protein 300 OR GREATER mg/dL (NEG-TRACE) Urine Glucose (UA) NEG mg/dL (NEG) Urine Ketones 40 mg/dL (NEG) Urine Occult Blood LARGE (NEG) Urine Nitrite NEG (NEG) Urine Bilirubin NEG (NEG) Urine Leukocyte Esterase SMALL (NEG) Urine RBC 0-3 /hpf (0-3) Urine WBC INNUM /hpf (0-5) Urine WBC Clumps FEW (NONE) Urine Squamous Epithelial 3-5 /hpf (0-5) Cells Urine Transitional Epithelial 0-5 /hpf (NONE) Cells Urine Bacteria MOD /hpf (NONE) Urine Hyaline Casts 3-5 /lpf (RARE) Urine Fine Granular Casts 3-5 /lpf (NONE) Urine Coarse Granular Casts 25-49 /lpf (NONE) Urine Yeast (Budding) FEW (NONE) Microscopic Urinalysis Comment CULTURE INDICATED Blood Gas Puncture Site LT RADIAL Blood Gas Patient Temperature 37.0 Blood Gas HCO3 15 mmol/L (22-26) Blood Gas Base Excess -10.3 mmol/L (-2-2) Blood Gas Oxygen Saturation 96 % (90-100) Arterial Blood pH 7.31 (7.380-7.420) Arterial Blood Partial 30 mmHg (38-42) Pressure CO2 Arterial Blood Partial 106 mmHg Pressure O2 (61-120) Arterial Blood Oxygen Content 11.0 Vol % (12.0-20.0) Arterial Blood 1.2 % (0-4) Carboxyhemoglobin Arterial Blood Methemoglobin 1.4 % (0-2) Blood Gas Hemoglobin 8.0 G/DL (12.0-16.0) Oxygen Delivery Device NASAL CANNULA Blood Gas Liter Flow 2 L/M Lactic Acid Level 0.9 mmol/L (0.4-2.0) B-Hydroxybutyrate 8.84 MMOL/L (0.00-0.39) Test 01/14/17 01/14/17 04:30 06:45 Sodium Level 143 MEQ/L (136-145) Potassium Level 3.8 MEQ/L (3.5-5.1) Chloride Level 110 MEQ/L (98-107) Carbon Dioxide Level 21.6 MEQ/L (21.0-32.0) Anion Gap 11 MEQ/L (5-15) Blood Urea Nitrogen 19 MG/DL (7-18) Creatinine 1.90 MG/DL (0.50-1.00) Estimat Glomerular Filtration 34 ML/MIN (>89) Rate Random Glucose 183 MG/DL (74-106) Calcium Level 7.4 MG/DL (8.5-10.1) Protein Corrected Calcium 8.5 MG/DL (8.5-10.1) Magnesium Level 1.7 MG/DL (1.5-2.5) Total Creatine Kinase 29 U/L (26-192) Troponin I LESS THAN 0.02 NG/ML (0.02-0.05) Total Protein 5.2 GM/DL (6.4-8.2) Random Cortisol 9.2 MCG/DL Phenytoin (Dilantin) Level 22.8 MCG/ML (10.0-20.0) White Blood Count 6.8 TH/MM3 (4.0-11.0) Red Blood Count 2.81 MIL/MM3 (4.00-5.30) Hemoglobin 8.3 GM/DL (11.6-15.3) Hematocrit 25.8 % (35.0-46.0) Mean Corpuscular Volume 91.8 FL (80.0-100.0) Mean Corpuscular Hemoglobin 29.6 PG (27.0-34.0) Mean Corpuscular Hemoglobin 32.3 % Concent (32.0-36.0) Red Cell Distribution Width 15.1 % (11.6-17.2) Platelet Count 224 TH/MM3 (150-450) Mean Platelet Volume 9.8 FL (7.0-11.0) Neutrophils (%) (Auto) 65.9 % (16.0-70.0) Lymphocytes (%) (Auto) 20.6 % (9.0-44.0) Monocytes (%) (Auto) 7.5 % (0.0-8.0) Eosinophils (%) (Auto) 4.5 % (0.0-4.0) Basophils (%) (Auto) 1.5 % (0.0-2.0) Neutrophils # (Auto) 4.5 TH/MM3 (1.8-7.7) Lymphocytes # (Auto) 1.4 TH/MM3 (1.0-4.8) Monocytes # (Auto) 0.5 TH/MM3 (0-0.9) Eosinophils # (Auto) 0.3 TH/MM3 (0-0.4) Basophils # (Auto) 0.1 TH/MM3 (0-0.2) CBC Comment DIFF FINAL Differential Comment B-Hydroxybutyrate 3.61 MMOL/L (0.00-0.39) . Result Diagram: 01/14/17 0645 01/14/17 0430 Microbiology Microbiology Date/Time Procedure Status Source Growth 01/13/17 15:40 Urine Culture - Preliminary Resulted Urine Catheterized Urine Streptococcus Species . Imaging Last Impressions Chest X-Ray 01/13/17 0000 Signed Impressions: Service Date/Time: January 15:34 - CONCLUSION: Underinflation with atelectasis at the lung bases. No other acute finding is appreciated. Jim Michaels MD Brain MRI 01/11/17 0000 Signed Impressions: Service Date/Time: Wednesday, January 11, 2017 15:04 - CONCLUSION: 1. Stable focus of abnormal signal involving the left centrum semiovale likely related to prior lacunar infarct. No acute intracranial anatomy. Rafiq Nielson MD Head CT 01/10/17 0917 Signed Impressions: Service Date/Time: Tuesday, January 10, 2017 09:49 - CONCLUSION: 1. Interval development of left sided mastoiditis since 11/22/2016. Clinical correlation is recommended. 2. Otherwise, no acute intracranial abnormality. Eriberto Madison MD Abdomen/Pelvis CT 12/25/16 1100 Signed Impressions: Service Date/Time: Sunday, December 25, 2016 12:00 - CONCLUSION: Interval development of anasarca, small bilateral effusions and small to moderate ascites. No significant ileus, hydronephrosis, mass or lymphadenopathy. Status post cholecystectomy. Bobby Martins MD Abdomen X-Ray 12/25/16 0857 Signed Impressions: Service Date/Time: Sunday, December 25, 2016 09:27 - CONCLUSION: No acute disease. Bobby Martins MD Upper Extremity Ultrasound 12/24/16 0000 Signed Impressions: Service Date/Time: Saturday, December 24, 2016 11:58 - CONCLUSION: Normal examination. Tr Luna MD Renal Ultrasound 12/24/16 0000 Signed Impressions: Service Date/Time: Saturday, December 24, 2016 11:53 - CONCLUSION: 1. Increased echogenicity of the renal cortex which can be seen with underlying medical renal disease. 2. No findings to indicate renal obstruction. 3. Small bilateral effusions and a trace amount of ascites within the abdomen. Umesh Farah MD Tibia/Fibula X-Ray 12/03/16 0000 Signed Impressions: Service Date/Time: Saturday, December 03, 2016 15:09 - CONCLUSION: Excellent alignment of the patient's tibial fracture post rodding. Patient has a minimally displaced fibular fracture as well. Uemsh Farah MD Ankle X-Ray 12/02/16 0000 Signed Impressions: Service Date/Time: November 18:16 - CONCLUSION: 1. The ankle mortise is intact. 2. Distal tibial and fibular fractures again noted. Please see right leg report for further details. Javier Marino MD . Procedures * Intramedullary yuri fixation right lower extremity fracture on 12/03/16 . Assessment and Plan Disease Oriented Problem List: (1) Closed fracture of right tibia and fibula Comment: Repaired on 12/03/16 with intramedullary yuri fixation (2) Anemia (3) Lupus (4) DM (diabetes mellitus), type 1 with hyperosmolarity (5) CKD (chronic kidney disease), stage III Comment: Renal function now declining. . (6) Seizure disorder Comment: Has reported long-term seizure disorder. Now with new tremor. Unclear if this is pseudoseizure, part of catatonia, medication reaction, etc. (7) Acute encephalopathy Comment: Patient has been having similar "spells" per family for 5-6 years and the etiology is uncertain. Spells have been more frequent and lasting longer of late. . (8) Acidosis Comment: Uncertain etiology. Given blood sugars are reasonably well controlled , this may be from starvation. . Symptom Scale: (1) Nausea 0-10 Scale: 0 (had it earlier.) Comment: Appears resolved. . (2) Decrease in appetite 0-10 Scale: Unable to quantify Comment: Hardly eating/drinking anything as part of this "spell" of altered mental status. . Pertinent Non-Medical Issues Psychosocial: Normally lives with her son and cares for herself. Spiritual: Adventist Legal: Father is her designated health care surrogate. Ethical issues impacting care: Patient is incapacitated. She will probably regain capacity. Father is her health care surrogate. . Important Contacts Kevin Corcoran (father and Primary HCS) [phone] ( home) [phone] (cell) Harriet Jewell (mother and 1st Alternate HCS) [phone] (home ) Liliya bain(ex and 2nd alternate HCS) [phone] . Prognosis Patient is a 46-year-old female with a past medical history significant for diabetes (poorly controlled, prior multiple admission for DKA), hypertension, asthma, CKD stage III, strokes 2013 (with residual deficit right upper extremity ), seizure, and lupus. Pt came in with right ankle fracture which was repaired surgically. Had ICU stay due to respiratory distress thought to be narcotic related, and anemia (thought to be ckd or anemia of chronic disease). Per family, patient has had increasingly frequent spells of being nonverbal, not eating/drinking that normally last 2-3 days. Cause of these spells remains unclear -- phenytoin toxicity? catatonia? . . Code Status: Full Code Plan == Code Stats -- FULL CODE == Decision making: Patient is now answering simple questions. I do not believe she has insight into her own illness or can effectively weigh the benefits/burdens of treatment options. I would therefore consider her to remain incapacitated. to make her own health care decisions. It is likely she will regain capacity. While incapacitated, her designated health care surrogate is her Lakeishaac Jewell [phone]; C [phone]. He should be contacted for all healthcare decision-making. A copy of the health care surrogate designation is on the paper chart. == Goals of medical treatment. Father believes the patient would want ongoing aggressive goals of care including resuscitation attempts. Father believes that if the patient were awake and alert she would want all treatments and procedures done to get her better. He feels that while she is incapacitated and she does not understand what's happening the medical team should go ahead and do what's needed even if she objects or refuses. Father independently asked the medical team to consider transferring her to [facility] if she does not begin to improve soon. Discussed these goals with Dr. Ribeiro on 01/14/17. == Altered mental status: Per family, patient has been having these type of "spells" for approximately 5-6 years. They are becoming more frequent and this one appears to be of the longest duration. Patient normally wakes up and starts eating again within 2-3 days. Etiology is quite unclear. Agree with medical team to hold the phenytoin in case the land toxicity is playing a role. Also agree with bicarb drip to address the acidosis. Father does NOT feel there is a psych component to these but Psych has recommended a catatonia treatment trial using IV lorazepam. == Pain: Does not appear to be currently an issue. No opiates are currently ordered. No further recommendations at this time == Nausea/vomiting: Currently controlled. == Given patient's expressed desires while capacitated and surrogate's stated goals, would not hesitate to force feeding tube and use restraints if necessary to allow for nutrition/hydration. == Consider transfer to [facility] at family request if there is no improvement over the next days. == Palliative Care will continue to follow to assist with symptom management and to clarify goals of medical treatment as the clincal course evolves. . Time Spent Total Floor Time (mins): 35 (Total floor time included chart review, patient exam, collaboration with primary nurse; discussion with Dr. Ribeiro, documentation. ) Face to Face Time (mins): 10 >50% Counseling/Coord of Care: Yes Fam Gerardo MD Jan 14, 2017 14:50
--- NOTE | 2017-01-14 16:08 | HHI.PR ---
Subjective Remarks Pt was evaluated earlier today around lunch time. Pt doesn't speak much to me but when I ask her if she is going to eat she answers "I'm going to try". Otherwise doesn't say much, she does follow some commands Discussed w RN, concerns about selective mutism and doesn't say much to him but when he presented her her pills, she quickly asked "what pills are these" then became quiet again Objective Vitals Vital Signs Date Time Temp Pulse Resp B/P Pulse Ox O2 Delivery O2 Flow Rate FiO2 01/14/17 14:01 84 10 129/74 100 01/14/17 14:01 84 01/14/17 12:01 90 11 145/82 100 01/14/17 12:01 90 01/14/17 11:00 90 11 145/85 98 01/14/17 10:00 90 16 150/87 100 01/14/17 10:00 94 01/14/17 09:01 90 01/14/17 09:00 99 01/14/17 09:00 90 13 172/91 99 01/14/17 08:15 100 Nasal Cannula 2.00 01/14/17 08:00 94 01/14/17 08:00 100 01/14/17 08:00 94 14 160/86 100 01/14/17 07:00 99 01/14/17 07:00 92 10 174/93 99 01/14/17 06:15 88 01/14/17 06:15 88 16 166/84 100 01/14/17 06:01 86 16 168/102 100 01/14/17 06:01 86 01/14/17 05:01 88 10 140/73 98 01/14/17 04:00 84 01/14/17 04:00 98.8 84 14 152/88 100 01/14/17 03:00 86 01/14/17 03:00 86 14 156/78 100 01/14/17 02:21 86 11 161/84 100 01/14/17 02:21 86 01/14/17 01:00 82 14 135/66 100 01/14/17 00:00 98.0 82 8 115/54 99 01/14/17 00:00 82 01/13/17 23:00 86 7 130/66 100 01/13/17 22:00 90 9 124/64 100 01/13/17 22:00 90 01/13/17 21:00 94 10 157/68 100 01/13/17 20:20 100 Nasal Cannula 2.00 01/13/17 20:08 98.3 102 12 179/81 100 01/13/17 20:00 100 01/13/17 19:01 104 13 137/87 100 01/13/17 19:00 100 Nasal Cannula 2.00 I/O 01/13/17 01/13/17 01/13/17 01/14/17 01/14/17 01/14/17 06:59 14:59 22:59 06:59 14:59 22:59 Intake Total 878 ml 1456 ml 330 ml 723 ml Output Total 75 ml 150 ml 150 ml 175 ml Balance 803 ml 1306 ml 180 ml 548 ml Intake Oral 0 ml 200 ml 330 ml 35 ml IV Total 878 ml 1256 ml 688 ml Output Urine Total 75 ml 150 ml 150 ml 175 ml # Bowel Movements 1 1 0 Result Diagram: 01/14/17 0645 01/14/17 0430 Imaging Last Impressions Chest X-Ray 01/13/17 0000 Signed Impressions: Service Date/Time: January 15:34 - CONCLUSION: Underinflation with atelectasis at the lung bases. No other acute finding is appreciated. Jim Michaels MD Brain MRI 01/11/17 0000 Signed Impressions: Service Date/Time: Wednesday, January 11, 2017 15:04 - CONCLUSION: 1. Stable focus of abnormal signal involving the left centrum semiovale likely related to prior lacunar infarct. No acute intracranial anatomy. Rafiq Nielson MD Head CT 01/10/17 0917 Signed Impressions: Service Date/Time: Tuesday, January 10, 2017 09:49 - CONCLUSION: 1. Interval development of left sided mastoiditis since 11/22/2016. Clinical correlation is recommended. 2. Otherwise, no acute intracranial abnormality. Eriberto Madison MD Abdomen/Pelvis CT 12/25/16 1100 Signed Impressions: Service Date/Time: Sunday, December 25, 2016 12:00 - CONCLUSION: Interval development of anasarca, small bilateral effusions and small to moderate ascites. No significant ileus, hydronephrosis, mass or lymphadenopathy. Status post cholecystectomy. Bobby Martins MD Abdomen X-Ray 12/25/16 0857 Signed Impressions: Service Date/Time: Sunday, December 25, 2016 09:27 - CONCLUSION: No acute disease. Bobby Martins MD Upper Extremity Ultrasound 12/24/16 0000 Signed Impressions: Service Date/Time: Saturday, December 24, 2016 11:58 - CONCLUSION: Normal examination. Tr Luna MD Renal Ultrasound 12/24/16 0000 Signed Impressions: Service Date/Time: Saturday, December 24, 2016 11:53 - CONCLUSION: 1. Increased echogenicity of the renal cortex which can be seen with underlying medical renal disease. 2. No findings to indicate renal obstruction. 3. Small bilateral effusions and a trace amount of ascites within the abdomen. Umesh Farah MD Tibia/Fibula X-Ray 12/03/16 0000 Signed Impressions: Service Date/Time: Saturday, December 03, 2016 15:09 - CONCLUSION: Excellent alignment of the patient's tibial fracture post rodding. Patient has a minimally displaced fibular fracture as well. Umesh Farah MD Ankle X-Ray 12/02/16 0000 Signed Impressions: Service Date/Time: November 18:16 - CONCLUSION: 1. The ankle mortise is intact. 2. Distal tibial and fibular fractures again noted. Please see right leg report for further details. Javier Marino MD Objective Remarks GENERAL: thin, appears tired. Eyes: oval shaped pupils, do react ot light but minimal. Conjunctivae were clear. NECK: Trachea midline no deviation. CARDIAC: Regular rhythm, regular rate. No murmurs LUNGS: Clear to auscultation bilaterally. No wheeze. No use of accessory muscles on inspiration or expiration. ABDOMEN: Soft, nontender. Nondistended. Bowel sounds heard in all 4 quadrants. EXTREMITIES: No edema, NEUROLOGY: appears tired, stares at me when I ask her questions and doesn't engage in conversation. She did answer "I will try to eat" when I asked her, she does follow some commands, raises both hands when I ask her and does move her hands as instructed. I didn't note any tremors at this time Procedures 12/03: IM Reymundo fixation right lower extremity A/P Problem List: (1) Hospital acquired PNA ICD Code: J18.9 Status: Acute (2) UTI (urinary tract infection) ICD Code: N39.0 Status: Acute (3) DKA (diabetic ketoacidoses) ICD Code: E13.10 Status: Acute (4) SIRS (systemic inflammatory response syndrome) ICD Code: R65.10 Status: Acute (5) Acute kidney injury superimposed on chronic kidney disease ICD Code: N17.9 Status: Acute (6) Urinary retention ICD Code: R33.9 Status: Acute (7) Loss of appetite ICD Code: R63.0 Status: Acute (8) Fibula fracture ICD Code: S82.409A Status: Acute (9) Tibia fracture ICD Code: S82.209A Status: Acute (10) Anemia ICD Code: D64.9 Status: Acute (11) Hypocalcemia ICD Code: E83.51 Status: Acute (12) Vitamin D deficiency ICD Code: E55.9 Status: Acute Assessment and Plan Metabolic acidosis with anion gap, recurrent Likely secondary to diabetes, could be ketoacidosis, elevated beta hydroxybutyrate but trending down and anion gap closed today. on schedule insulin and ISS u/a concerning for UTI, growing streptococcus species. f/u final urine cx. started on IV rocephin continue to monitor in the ICU Discussed with nephrology, pt on sterile water with 1//2 amp of sodium bicarbonate. They are following. Appreciate recs Continue monitor BMP Altered mental status with multiple neurological symptoms to include tremors, ataxia, falls, difficulty speech CT scan of the brain did not indicate any acute abnormality EEG was normal Medications were adjusted to include discontinuation of Reglan, decrease in Remeron, Effexor Dilantin was increased to 200 mg in the morning, 300 mg in the evening, then was decreased to 200 mg twice daily, currently on hold as Dilantin level 22 Keppra 1000 mg twice daily, on hold MRI of the brain was without any acute abnormality Neurology re-consulted for recommendations as psychiatry is recommending change in antiepileptic meds as some may cause catatonia. Appreciate input from both consultants. 01/12/17 discussion with neurology. Upon review of medical records, physical findings, workup results. 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 He recommended continuation of her antiseizure medications and feels that this is related to underlying psychological issue and recommended psychiatry consult. He indicated the patient is clear for discharge to rehabilitation facility from neurological standpoint 01/13/17 discussed with palliative care, psychiatry. Psychiatry concerned that patient is in catatonic state. on Ativan provocation. seems to be responding. Hypernatremia resolved. Healthcare associated pneumonia/aspiration pneumonia Patient currently asymptomatic, no fever, cough, leukocytosis Legionella, streptococcal antigen were negative Completed treatment with cefepime Pyuria see above Anorexia, decreased appetite, not wanting to eat, this appears to be a choice and not a clinical abnormality Patient is on Keppra which can cause anorexia but patient has been on these for an extended period of time. No other symptoms reported. Keppra currently on hold. Vertical Mill Operator consulted. Recommends continue diabetic diet, restart Glucerna shakes, recommend Theragran-M Continue Megace off Reglan, secondary to possible extrapyramidal symptoms, Decreased Remeron 15 mg daily,secondary to possible extrapyramidal symptoms, Decreased Effexor 37.5 mg every 48 hours secondary to possible extrapyramidal symptoms Psychiatrist discontinued Prozac and started Effexor Multiple abdominal scans have been performed without any acute abnormality If patient has any more emesis will pursue gastric emptying study. Psychiatry following. Feels that pt could benefit of a psychiatric admission in [facility] psych once medically more stable. Palliative care following. Patient refused hospice at this time.Per palliative care documentation: Father believes the patient would want ongoing aggressive goals of care including resuscitation attempts. Father believes that if the patient were awake and alert she would want all treatments and procedures done to get her better. He feels that while she is incapacitated and she does not understand what's happening the medical team should go ahead and do what's needed even if she objects or refuses. Father independently asked the medical team to consider transferring her to [facility] if she does not begin to improve soon. Nursing staff to do daily weights on standing scale, Respiratory insufficiency with hypoxia: Chest x-rays were performed which do show bi-basilar atelectasis, repeat x-ray shows right lower lung infiltrate, possible aspiration Patient encouraged to do incentive spirometry every couple hours Wean off oxygen to maintain O2 sats greater than 88% Right closed tibial fracture status post reymundo fixation on December 03. Orthopedic recommending Nonweightbearing. Ortho was reconsulted to follow patient here at [facility]. Andra Martines spoke with Dr. Mills who states if wound looks good, can remove rafa. [place] removed on 12/22/16 Pain control Tylenol 650 mg every 6 hours as needed for pain 110 Hypertension: Improved Norvasc 10 mg daily Lopressor 12.5 mg twice daily Clonidine 0.1 mg every 8 hours Clonidine, Apresoline as needed Systemic inflammatory response syndrome, resolved Patient no longer meets criteria, patient did have tachycardia, leukocytosis, no infectious source Acute renal failure superimposed on chronic kidney disease stage III, worsening Status post IV fluid Renal ultrasound shows medical renal disease Nephrology following. hold protonix, switch lovenox to daily per renal recs Diabetes type 2, uncontrolled Hemoglobin A1c 10.8 Accu-Cheks with sliding scale insulin Lantus 4 units at bedtime, patient is allergic to Levemir Anemia, acute on chronic: . Mild worsening after IV hydration Secondary to blood loss due to surgery and anemia of chronic disease due to renal failure. Status post transfusion with 2 PRBC Monitor hemoglobin GI was consulted due to anemia. Per GI she had colonoscopy and endoscopy done 2 months ago which was normal. She had no signs of any GI bleed. GI signed off. Hypocalcemia: Patient was initially refusing TUMS but I informed her it is necessary for fracture healing. PTH level and calcitonin level are normal Vitamin D deficiency: 25-OH Vitamin D level 9.4. Patient states she took Vitamin D at home, but this is not in med rec. Continue Vitamin D2 50,000 weekly for 6-8 weeks then transition to lower daily supplementation. History of seizure disorder, CVA and lupus see above DVT prophylaxis Sequential compression devices, subcutaneous Lovenox Discharge Planning continue management in the ICU Problem Qualifiers (1) DKA (diabetic ketoacidoses): Tg Ribeiro MD Jan 14, 2017 16:08
[2017-01-14] MEDS ORDERED: cefTRIAXone INJ 1,000 MG in SODIUM CHLORIDE 0.9% INJ 100 ML IV SCH (18:00)
[2017-01-14 18:24] LABS: MRSA PCR NEGATIVE (NEGATIVE); STAPH AUREUS PCR NEGATIVE (NEGATIVE)
[2017-01-14] MEDS: MIRTAZAPINE ODT 15 MG TAB PO SCH (20:33)
[2017-01-15] VITALS (19 sets, daily range): BP systolic 104–178; BP diastolic 62–100; PULSE 86–105; RESP 8–19; TEMP 98–98.7; O2SAT 94–100
[2017-01-15] MEDS: LORazepam 2 MG TAB PO SCH ×4 (00:23→18:00)
[2017-01-15] MEDS: CHLORHEXIDINE GLUCONATE 2 % 1 PACK (2 CLOTHS)(taper/protocol) TOPICAL SCH (01:36)
[2017-01-15] MEDS: cloNIDine HCL 0.1 MG TAB PO SCH ×3 (05:08→22:51)
[2017-01-15] MEDS: WATER STERILE FOR IV SCH (05:08)
[2017-01-15] MEDS: SODIUM BICARBONATE IV SCH (05:08)
[2017-01-15] MEDS: INSULIN ASPART SUPPLEMENTAL SCALE SQ SCH ×4 (05:08→21:00)
[2017-01-15 05:47] LABS: AUTOMATED NEUTROPHIL # 3.8 TH/MM3 (1.8-7.7); BASOPHIL % 0.8 % (0.0-2.0); EOSINOPHIL # 0.3 TH/MM3 (0-0.4); EOSINOPHIL % 4.6 % (0.0-4.0); HEMATOCRIT 24.5 % (35.0-46.0); HEMO FLAGS DIFF FINAL; LYMPH % 26.4 % (9.0-44.0); LYMPHOCYTE # 1.6 TH/MM3 (1.0-4.8); MEAN CELL VOLUME 90.2 FL (80.0-100.0); MEAN CORPUSCULAR HEMOGLOBIN 29.3 PG (27.0-34.0); MEAN CORPUSCULAR HGB CONC 32.4 % (32.0-36.0); MONO % 7.4 % (0.0-8.0); NEUT % 60.8 % (16.0-70.0); PLATELET COUNT 201 TH/MM3 (150-450); RED BLOOD COUNT 2.72 MIL/MM3 (4.00-5.30); RED CELL DISTRIBUTION WIDTH 15.1 % (11.6-17.2); WHITE BLOOD COUNT 6.2 TH/MM3 (4.0-11.0)
[2017-01-15 05:56] LABS: POTASSIUM 3.3 MEQ/L (3.5-5.1)
[2017-01-15 06:04] LABS: BICARBONATE 29.1 MEQ/L (21.0-32.0); MAGNESIUM 1.6 MG/DL (1.5-2.5)
[2017-01-15 06:16] LABS: CALCIUM-PROTEIN CORRECTED 8.5 MG/DL (8.5-10.1)
[2017-01-15] MEDS: METOPROLOL TARTRATE 25 MG TAB PO SCH ×2 (08:55→20:39)
[2017-01-15] MEDS: ENOXAPARIN SODIUM 30 MG/0.3 ML SYRINGE SQ SCH (08:55)
[2017-01-15] MEDS: CALCIUM CARBONATE 500 MG CHEWABLE TAB CHEW SCH ×2 (08:56→20:37)
[2017-01-15] MEDS: MEGESTROL ACETATE SUSP 400 MG/10 ML CUP PO SCH ×2 (08:56→20:39)
[2017-01-15] MEDS: levETIRAcetam 500 MG TAB PO SCH (08:56)
[2017-01-15] MEDS: DOCUSATE SODIUM 50 MG/SENNA 8.6 MG TAB PO SCH ×2 (08:56→20:56)
[2017-01-15] MEDS: ATORVASTATIN 40 MG TAB PO SCH (08:56)
[2017-01-15] MEDS: MULTIVITAMINS/MINERALS THERAPEUTIC TAB PO SCH (08:56)
[2017-01-15] MEDS: INSULIN GLARGINE 1,000 UNITS/10 ML VIAL SQ SCH (09:00)
[2017-01-15] MEDS: SODIUM CHLOR 0.45% 1000 ML INJ 1,000 ML IV SCH (13:30)
[2017-01-15] MEDS ORDERED: POTASSIUM CHLORIDE 20 MEQ CONTROLLED RELEASE TAB PO ONE (13:30)
--- NOTE | 2017-01-15 14:36 | HHI.PR ---
Subjective Remarks Written by Shiraz Espinal, acting as scribe for Dr. Ribeiro on 01/15/17 at 14: 12. Patient appears to be more alert. She states what she would like to eat. She states that if she wants something to eat, she must get it right away or else she won't eat it. she is able recognize that she is in [facility] in [facility]. knows year and month Objective Vitals Vital Signs Date Time Temp Pulse Resp B/P Pulse Ox O2 Delivery O2 Flow Rate FiO2 01/15/17 13:00 94 17 148/84 94 01/15/17 12:00 98.1 98 17 141/87 100 01/15/17 12:00 98 01/15/17 11:00 104 14 178/100 100 01/15/17 10:00 100 8 156/89 100 01/15/17 10:00 105 01/15/17 09:00 100 8 156/87 100 01/15/17 08:00 105 01/15/17 08:00 98.7 104 19 152/74 98 01/15/17 08:00 100 Nasal Cannula 2.00 01/15/17 07:00 100 Nasal Cannula 2.00 01/15/17 06:00 98 01/15/17 06:00 98 17 148/85 98 01/15/17 05:00 104 9 151/84 96 01/15/17 04:00 104 01/15/17 04:00 98.0 104 13 161/81 95 01/15/17 03:00 86 18 106/62 99 01/15/17 02:00 92 01/15/17 02:00 92 18 140/78 100 01/15/17 01:00 90 16 140/83 100 01/15/17 00:00 93 01/15/17 00:00 98.2 93 13 140/73 100 01/14/17 23:16 93 11 119/66 99 01/14/17 22:00 84 01/14/17 22:00 84 15 87/53 99 01/14/17 21:00 82 15 140/74 100 01/14/17 20:00 100 Nasal Cannula 2.00 01/14/17 20:00 100 Nasal Cannula 2.00 01/14/17 20:00 98.0 78 16 96/58 100 01/14/17 20:00 80 01/14/17 19:00 80 15 97/60 99 01/14/17 18:00 82 01/14/17 18:00 82 11 110/63 99 01/14/17 17:00 98.4 82 8 90/51 98 01/14/17 16:00 88 01/14/17 16:00 88 10 95/58 99 01/14/17 15:07 92 15 120/75 100 I/O 01/14/17 01/14/17 01/14/17 01/15/17 01/15/17 01/15/17 07:00 15:00 23:00 07:00 15:00 23:00 Intake Total 330 ml 723 ml 878 ml 529 ml Output Total 150 ml 175 ml 50 ml 300 ml Balance 180 ml 548 ml 828 ml 229 ml Intake Oral 330 ml 35 ml 240 ml 30 ml IV Total 688 ml 638 ml 499 ml Output Urine Total 150 ml 175 ml 50 ml 300 ml # Bowel Movements 1 0 0 0 Result Diagram: 01/15/17 0535 01/15/17 0535 Imaging Last Impressions Chest X-Ray 01/13/17 0000 Signed Impressions: Service Date/Time: January 15:34 - CONCLUSION: Underinflation with atelectasis at the lung bases. No other acute finding is appreciated. Jim Michaels MD Brain MRI 01/11/17 0000 Signed Impressions: Service Date/Time: Wednesday, January 11, 2017 15:04 - CONCLUSION: 1. Stable focus of abnormal signal involving the left centrum semiovale likely related to prior lacunar infarct. No acute intracranial anatomy. Rafiq Nielson MD Head CT 01/10/17 0917 Signed Impressions: Service Date/Time: Tuesday, January 10, 2017 09:49 - CONCLUSION: 1. Interval development of left sided mastoiditis since 11/22/2016. Clinical correlation is recommended. 2. Otherwise, no acute intracranial abnormality. Eriberto Madison MD Abdomen/Pelvis CT 12/25/16 1100 Signed Impressions: Service Date/Time: Sunday, December 25, 2016 12:00 - CONCLUSION: Interval development of anasarca, small bilateral effusions and small to moderate ascites. No significant ileus, hydronephrosis, mass or lymphadenopathy. Status post cholecystectomy. Bobby Martins MD Abdomen X-Ray 12/25/16 0857 Signed Impressions: Service Date/Time: Sunday, December 25, 2016 09:27 - CONCLUSION: No acute disease. Bobby Martins MD Upper Extremity Ultrasound 12/24/16 0000 Signed Impressions: Service Date/Time: Saturday, December 24, 2016 11:58 - CONCLUSION: Normal examination. KReza Luna MD Renal Ultrasound 12/24/16 0000 Signed Impressions: Service Date/Time: Saturday, December 24, 2016 11:53 - CONCLUSION: 1. Increased echogenicity of the renal cortex which can be seen with underlying medical renal disease. 2. No findings to indicate renal obstruction. 3. Small bilateral effusions and a trace amount of ascites within the abdomen. Umesh Farah MD Tibia/Fibula X-Ray 12/03/16 0000 Signed Impressions: Service Date/Time: Saturday, December 03, 2016 15:09 - CONCLUSION: Excellent alignment of the patient's tibial fracture post rodding. Patient has a minimally displaced fibular fracture as well. Umesh Farah MD Ankle X-Ray 12/02/16 0000 Signed Impressions: Service Date/Time: November 18:16 - CONCLUSION: 1. The ankle mortise is intact. 2. Distal tibial and fibular fractures again noted. Please see right leg report for further details. Javier Marino MD Objective Remarks GENERAL: laying in bed, able to pull herself up when asked w some assistance for auscultation. Alert and orientated person, time and place HEENT: Head is normocephalic. Eyes: Extraocular muscles are intact. Conjunctivae were clear. NECK: Trachea midline no deviation. CARDIAC: Regular rhythm, regular rate. No murmurs LUNGS: Clear to auscultation bilaterally. No wheeze. ABDOMEN: Soft, nontender. Nondistended. Bowel sounds heard in all 4 quadrants. EXTREMITIES: No edema. NEUROLOGY: Mood and affect appear appropriate. Moving all extremities slowly but follows commands, speech is clear. No tremors noted today Procedures 12/03: IM Reymundo fixation right lower extremity Urinary Catheter: Yes Assessment to: Remove Maurer insert reason: Measure Accurate Output Vascular Central Line Catheter: No A/P Assessment and Plan Metabolic acidosis with anion gap, recurrent Likely secondary to diabetes, could be ketoacidosis, elevated beta hydroxybutyrate but trending down and anion gap closed today. on schedule insulin and ISS u/a concerning for UTI, growing streptococcus species. f/u final urine cx. IV rocephin apparently resistent to PNC. therefore d/c rocephin, switch to cipro. add diflucan as pt is also growing thad transfer to med/surg Discussed with nephrology, d/c bicarb gtt and started on 1/2 NS. They are following. Appreciate recs Continue monitor BMP Altered mental status with multiple neurological symptoms to include tremors, ataxia, falls, difficulty speech CT scan of the brain did not indicate any acute abnormality EEG was normal Medications were adjusted to include discontinuation of Reglan, decrease in Remeron, Effexor Dilantin was increased to 200 mg in the morning, 300 mg in the evening, then was decreased to 200 mg twice daily, currently on hold as Dilantin level 19.8 Keppra 1000 mg twice daily, on hold MRI of the brain was without any acute abnormality Neurology re-consulted for recommendations as psychiatry is recommending change in antiepileptic meds as some may cause catatonia. Appreciate input from both consultants. 01/12/17 discussion with neurology. Upon review of medical records, physical findings, workup results. 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 He recommended continuation of her antiseizure medications and feels that this is related to underlying psychological issue and recommended psychiatry consult. He indicated the patient is clear for discharge to rehabilitation facility from neurological standpoint 01/13/17 discussed with palliative care, psychiatry. Psychiatry concerned that patient is in catatonic state. on Ativan provocation. seems to be responding. Hypernatremia resolved. Healthcare associated pneumonia/aspiration pneumonia Patient currently asymptomatic, no fever, cough, leukocytosis Legionella, streptococcal antigen were negative Completed treatment with cefepime Pyuria see above Anorexia, decreased appetite, not wanting to eat, this appears to be a choice and not a clinical abnormality Patient is on Keppra which can cause anorexia but patient has been on these for an extended period of time. No other symptoms reported. Keppra currently on hold. Residential Designer consulted. Recommends continue diabetic diet, restart Glucerna shakes, recommend Theragran-M Continue Megace off Reglan, secondary to possible extrapyramidal symptoms, Decreased Remeron 15 mg daily,secondary to possible extrapyramidal symptoms, Decreased Effexor 37.5 mg every 48 hours secondary to possible extrapyramidal symptoms Psychiatrist discontinued Prozac and started Effexor Multiple abdominal scans have been performed without any acute abnormality If patient has any more emesis will pursue gastric emptying study. Psychiatry following. Feels that pt could benefit of a psychiatric admission in [facility] psych once medically more stable. Palliative care following. Patient refused hospice at this time.Per palliative care documentation: Father believes the patient would want ongoing aggressive goals of care including resuscitation attempts. Father believes that if the patient were awake and alert she would want all treatments and procedures done to get her better. He feels that while she is incapacitated and she does not understand what's happening the medical team should go ahead and do what's needed even if she objects or refuses. Father independently asked the medical team to consider transferring her to [facility] if she does not begin to improve soon. Nursing staff to do daily weights on standing scale, Respiratory insufficiency with hypoxia: Chest x-rays were performed which do show bi-basilar atelectasis, repeat x-ray shows right lower lung infiltrate, possible aspiration Patient encouraged to do incentive spirometry every couple hours Wean off oxygen to maintain O2 sats greater than 88% Right closed tibial fracture status post reymundo fixation on December 03. Orthopedic recommending Nonweightbearing. Ortho was reconsulted to follow patient here at [facility]. Andra Martines spoke with Dr. Mills who states if wound looks good, can remove rafa. [place] removed on 12/22/16 Pain control Tylenol 650 mg every 6 hours as needed for pain 110 Hypertension: Improved Norvasc 10 mg daily Lopressor 12.5 mg twice daily Clonidine 0.1 mg every 8 hours Clonidine, Apresoline as needed Systemic inflammatory response syndrome, resolved Patient no longer meets criteria, patient did have tachycardia, leukocytosis, no infectious source Acute renal failure superimposed on chronic kidney disease stage III, worsening Status post IV fluid Renal ultrasound shows medical renal disease Nephrology following. hold protonix, switch lovenox to daily per renal recs Diabetes type 2, uncontrolled Hemoglobin A1c 10.8 Accu-Cheks with sliding scale insulin Lantus 4 units at bedtime, patient is allergic to Levemir Anemia, acute on chronic: . Mild worsening after IV hydration Secondary to blood loss due to surgery and anemia of chronic disease due to renal failure. Status post transfusion with 2 PRBC Monitor hemoglobin GI was consulted due to anemia. Per GI she had colonoscopy and endoscopy done 2 months ago which was normal. She had no signs of any GI bleed. GI signed off. Hypocalcemia: Patient was initially refusing TUMS but I informed her it is necessary for fracture healing. PTH level and calcitonin level are normal Vitamin D deficiency: 25-OH Vitamin D level 9.4. Patient states she took Vitamin D at home, but this is not in med rec. Continue Vitamin D2 50,000 weekly for 6-8 weeks then transition to lower daily supplementation. History of seizure disorder, CVA and lupus see above DVT prophylaxis Sequential compression devices, subcutaneous Lovenox This note was transcribed by simone Espinal. I, Dr. Tg Ribeiro personally performed the history, physical exam, and medical decision making; and confirmed the accuracy of the information in the transcribed note. Authenticated by Dr. Tg Ribeiro on 01/15/17 at 1412. Discharge Planning Transfer to med/surg floor Shiraz Espinal Jan 15, 2017 14:36 Tg Ribeiro MD Jan 15, 2017 17:04
[2017-01-15] MEDS ORDERED: CIPROFLOXACIN 400 MG PREMIX 200 ML IV SCH (18:00)
[2017-01-15] MEDS ORDERED: FLUCONAZOLE 100 MG TAB PO SCH (18:00)
--- NOTE | 2017-01-15 20:57 | HHI.PR ---
Review/Management Diagnosis sz Plan dilantin level corrected for protein is 47 Will d/c dilantin and use trileptal in place 300 mg bid also d/c keppra due to potential psychiatric side effect Diagnosis/Plan: Subjective Subjective Comments No acute events reported No seizures Active Medications Current Medications Medications (Trade) Dose Ordered Sig/Marin Route Start Time Stop Time Status Last Admin (Rivka-Colace) 1 tab BID PO 12/03/16 21:00 01/15/17 08:56 (Milk Of Magnesia Liq) 30 ml Q12H PRN PO 12/03/16 16:00 (Dulcolax Supp) 10 mg DAILY PRN RECTAL 12/03/16 16:00 (Catapres) 0.1 mg Q6H PRN PO 12/11/16 13:30 12/27/16 04:20 (Lipitor) 80 mg DAILY PO 12/21/16 09:00 01/15/17 08:56 (Tums Chew) 1,000 mg Q12HR CHEW 12/22/16 21:00 01/15/17 20:37 (Drisdol) 50,000 units Q7D PO 12/23/16 09:00 01/06/17 09:17 (Tylenol) 650 mg Q6H PRN PO 12/24/16 14:15 (D50w (Vial) Inj) 50 ml UNSCH PRN IV 12/26/16 04:30 (Glucagon Inj) 1 mg UNSCH PRN OTHER 12/26/16 04:30 (Norvasc) 10 mg DAILY PO 12/29/16 09:00 01/15/17 08:56 (Zofran Liq) 4 mg Q6H PRN PO 12/28/16 15:45 01/01/17 02:37 (Protonix) 40 mg DAILY PO 12/29/16 09:00 01/12/17 09:00 (Lopressor) 12.5 mg Q12HR PO 12/28/16 21:00 01/15/17 20:39 (Pill Splitter) 1 ea UNSCH PRN OTHER 12/28/16 16:15 (Theragran M Tab) 1 tab DAILY PO 01/01/17 10:15 01/15/17 08:56 (Lantus Inj) 4 units DAILY SQ 01/07/17 09:00 01/15/17 09:00 (Megace Liq) 400 mg BID PO 01/07/17 21:00 01/15/17 20:39 (Remeron Soltab Odt) 15 mg HS PO 01/09/17 21:00 01/14/17 20:33 (Keppra) 1,000 mg BID PO 01/10/17 21:00 Hold 01/15/17 08:56 (Dilantin) 200 mg DAILY@0600 PO 01/11/17 06:00 Hold 01/11/17 06:30 (Ativan Inj) 1 mg Q4H PRN IV PUSH 01/10/17 21:00 (Catapres) 0.1 mg Q8HR PO 01/11/17 14:00 01/15/17 14:50 (Dilantin) 200 mg HS PO 01/13/17 21:00 Hold 01/13/17 20:14 (Vasotec Inj) 1.25 mg Q6H PRN IV PUSH 01/12/17 16:30 Hold 01/13/17 18:58 (Ativan) 2 mg Q6HR PO 01/13/17 18:00 01/15/17 11:48 Miscellaneous Information Patient in critical care unit? Ass... Q361D .XX 01/14/17 06:00 01/14/17 06:00 (Chlorhexidine 2% Cloth) 3 pack DAILY@04 TOPICAL 01/15/17 04:00 01/19/17 04:01 01/15/17 01:36 (Chlorhexidine 2% Cloth) 3 pack UNSCH PRN TOPICAL 01/14/17 06:00 01/19/17 05:51 Enoxaparin Sodium 30 mg 30 mg DAILY SQ 01/14/17 09:00 01/15/17 08:55 Sodium Chloride 1,000 ml @ 42 mls/hr [id number] IV 01/15/17 13:30 01/15/17 13:30 (Cipro 400 Mg Premix) 200 ml @ 200 mls/hr Q24H IV 01/15/17 18:00 01/15/17 20:35 (Diflucan) 150 mg DAILY PO 01/15/17 18:00 Allergies Allergies Coded Allergies Aspirin (Verified Allergy, Severe, 12/02/16) Penicillin (Verified Allergy, Severe, 12/02/16) Sulfa (Verified Allergy, Severe, 12/02/16) Banana (Verified Allergy, Intermediate, Hives, 12/02/16) Adhesives (Verified Allergy, Unknown, 12/02/16) Macrobid (Unverified Allergy, Unknown, 12/02/16) Levemir (Verified Adverse Reaction, Severe, Sweats, funny feeling, mood swings , daze, 12/04/16) *MDRO Multi-Drug Resistant Organism (Unverified Adverse Reaction, Unknown, MRSA, 01/03/17) Exam I&O / VS 01/14/17 01/14/17 01/15/17 15:00 23:00 07:00 Intake Total 723 ml 878 ml 529 ml Output Total 175 ml 50 ml 300 ml Balance 548 ml 828 ml 229 ml Intake Oral 35 ml 240 ml 30 ml IV Total 688 ml 638 ml 499 ml Output Urine Total 175 ml 50 ml 300 ml # Bowel Movements 0 0 0 Vital Signs Date Time Temp Pulse Resp B/P Pulse Ox O2 Delivery O2 Flow Rate FiO2 01/15/17 17:00 87 12 123/73 98 01/15/17 16:00 92 11 140/78 99 01/15/17 16:00 92 01/15/17 15:00 96 12 104/94 97 01/15/17 14:00 90 01/15/17 14:00 98.2 90 17 110/71 94 01/15/17 13:00 94 17 148/84 94 01/15/17 12:00 98.1 98 17 141/87 100 01/15/17 12:00 98 01/15/17 11:00 104 14 178/100 100 01/15/17 10:00 100 8 156/89 100 01/15/17 10:00 105 01/15/17 09:00 100 8 156/87 100 01/15/17 08:00 105 01/15/17 08:00 98.7 104 19 152/74 98 01/15/17 08:00 100 Nasal Cannula 2.00 01/15/17 07:00 100 Nasal Cannula 2.00 01/15/17 06:00 98 01/15/17 06:00 98 17 148/85 98 01/15/17 05:00 104 9 151/84 96 01/15/17 04:00 104 01/15/17 04:00 98.0 104 13 161/81 95 01/15/17 03:00 86 18 106/62 99 01/15/17 02:00 92 01/15/17 02:00 92 18 140/78 100 01/15/17 01:00 90 16 140/83 100 01/15/17 00:00 93 01/15/17 00:00 98.2 93 13 140/73 100 01/14/17 23:16 93 11 119/66 99 01/14/17 22:00 84 01/14/17 22:00 84 15 87/53 99 01/14/17 21:00 82 15 140/74 100 Exam Comments alert, speech normal CN 2-12 normal MOTOR 5/5 BUE , no drift DTR 2+ symmetric Objective Micro and Labs Laboratory Tests Test 01/15/17 05:35 White Blood Count 6.2 Red Blood Count 2.72 Hemoglobin 7.9 Hematocrit 24.5 Mean Corpuscular Volume 90.2 Mean Corpuscular Hemoglobin 29.3 Mean Corpuscular Hemoglobin 32.4 Concent Red Cell Distribution Width 15.1 Platelet Count 201 Mean Platelet Volume 9.5 Neutrophils (%) (Auto) 60.8 Lymphocytes (%) (Auto) 26.4 Monocytes (%) (Auto) 7.4 Eosinophils (%) (Auto) 4.6 Basophils (%) (Auto) 0.8 Neutrophils # (Auto) 3.8 Lymphocytes # (Auto) 1.6 Monocytes # (Auto) 0.5 Eosinophils # (Auto) 0.3 Basophils # (Auto) 0.0 CBC Comment DIFF FINAL Differential Comment Sodium Level 141 Potassium Level 3.3 Chloride Level 105 Carbon Dioxide Level 29.1 Anion Gap 7 Blood Urea Nitrogen 20 Creatinine 2.10 Estimat Glomerular Filtration 30 Rate Random Glucose 155 Calcium Level 7.3 Protein Corrected Calcium 8.5 Magnesium Level 1.6 Total Protein 5.0 Phenytoin (Dilantin) Level 19.8 Date/Time Procedure Status Source Growth 01/13/17 15:40 Urine Culture - Preliminary Resulted Urine Catheterized Urine Enterococcus Species Brenna Albicans Edmond Lam PhD MD Jan 15, 2017 20:57
[2017-01-15] MEDS: OXcarbazepine 300 MG TAB PO SCH (22:51)
[2017-01-16] VITALS (8 sets, daily range): BP systolic 128–160; BP diastolic 71–93; PULSE 77–102; RESP 17–20; TEMP 97.1–98.1; O2SAT 91–99
[2017-01-16] MEDS: CHLORHEXIDINE GLUCONATE 2 % 1 PACK (2 CLOTHS)(taper/protocol) TOPICAL SCH (03:14)
[2017-01-16] MEDS: LORazepam 2 MG TAB PO SCH ×4 (05:49→16:00)
[2017-01-16] MEDS: cloNIDine HCL 0.1 MG TAB PO SCH ×3 (05:53→20:44)
[2017-01-16] MEDS: INSULIN ASPART SUPPLEMENTAL SCALE SQ SCH ×4 (07:00→21:51)
[2017-01-16 07:28] LABS: AUTOMATED NEUTROPHIL # 4.5 TH/MM3 (1.8-7.7); BASOPHIL % 0.3 % (0.0-2.0); EOSINOPHIL # 0.1 TH/MM3 (0-0.4); EOSINOPHIL % 2.4 % (0.0-4.0); HEMATOCRIT 24.1 % (35.0-46.0); HEMO FLAGS DIFF FINAL; LYMPH % 17.1 % (9.0-44.0); MEAN CELL VOLUME 90.5 FL (80.0-100.0); MEAN CORPUSCULAR HEMOGLOBIN 29.3 PG (27.0-34.0); MEAN CORPUSCULAR HGB CONC 32.3 % (32.0-36.0); MONO % 6.3 % (0.0-8.0); NEUT % 73.9 % (16.0-70.0); PLATELET COUNT 206 TH/MM3 (150-450); POTASSIUM 3.9 MEQ/L (3.5-5.1); RED BLOOD COUNT 2.66 MIL/MM3 (4.00-5.30); RED CELL DISTRIBUTION WIDTH 15.4 % (11.6-17.2)
[2017-01-16 07:33] LABS: BICARBONATE 28.9 MEQ/L (21.0-32.0); MAGNESIUM 1.9 MG/DL (1.5-2.5)
[2017-01-16] MEDS: METOPROLOL TARTRATE 25 MG TAB PO SCH ×2 (08:03→20:44)
[2017-01-16] MEDS: MULTIVITAMINS/MINERALS THERAPEUTIC TAB PO SCH (08:03)
[2017-01-16] MEDS: ATORVASTATIN 40 MG TAB PO SCH (08:03)
[2017-01-16] MEDS: OXcarbazepine 300 MG TAB PO SCH ×2 (08:04→20:43)
[2017-01-16] MEDS: PANTOPRAZOLE SOD 40 MG DELAYED RELEASE TAB PO SCH (08:05)
[2017-01-16] MEDS: DOCUSATE SODIUM 50 MG/SENNA 8.6 MG TAB PO SCH ×3 (08:05→20:47)
[2017-01-16] MEDS: MEGESTROL ACETATE SUSP 400 MG/10 ML CUP PO SCH ×2 (08:06→20:44)
--- NOTE | 2017-01-16 08:43 | HHI.NPPN ---
Subjective General Problems: Anemia Renal Failure: Chronic, Acute Interval History patient was seen and examined. Having breakfast. She is comfortable, alert, answers questions. Review of Systems General Constitutional: Fatigue General Remarks she has no complaints poor oral intake per medical team periodic catatonia Objective Data Data 01/15/17 01/16/17 18:59 06:59 Intake Total 120 ml Output Total 450 ml 900 ml Balance -450 ml -780 ml Intake Oral 120 ml Output Urine Total 450 ml 900 ml # Bowel Movements 0 0 Vital Signs Date Time Temp Pulse Resp B/P Pulse Ox O2 Delivery O2 Flow Rate FiO2 01/16/17 08:00 97.7 98 18 160/88 96 01/16/17 04:00 97.9 95 20 130/72 97 01/16/17 00:00 98.1 92 20 150/93 97 01/15/17 23:28 98 Nasal Cannula 2.00 01/15/17 20:00 98.3 90 16 116/85 100 01/15/17 20:00 Nasal Cannula 2.00 01/15/17 20:00 89 01/15/17 17:00 87 12 123/73 98 01/15/17 16:00 92 11 140/78 99 01/15/17 16:00 92 01/15/17 15:00 96 12 104/94 97 01/15/17 14:00 90 01/15/17 14:00 98.2 90 17 110/71 94 01/15/17 13:00 94 17 148/84 94 01/15/17 12:00 98.1 98 17 141/87 100 01/15/17 12:00 98 01/15/17 11:00 104 14 178/100 100 01/15/17 10:00 100 8 156/89 100 01/15/17 10:00 105 01/15/17 09:00 100 8 156/87 100 -: 01/16/17 0630 01/16/17 0630 Tubes & Lines: Maurer Drip Comment bicarb gtt Physical Exam General Appearance: Well Developed, Comfortable Throat Throat Exam: Oral Mucosa Bearden & Moist Neck Neck Exam: Neck Supple Pulmonary Resp Exam: Clear Bilaterally, Breath Sounds Equal, Decreased Bases Cardiology CV Exam: Regular, Normal Sinus Rhythm Gastrointestinal/Abdomen GI Exam: Soft, Non-Tender, Bowel Sounds Present Musculoskeletal MS Exam: Joints Intact, Normal Tone Integumentary Skin Exam: Clear, Warm, Dry, Intact Extremeties Extremities Exam: No Edema, Pedal Pulses Palpable Neurologic Neuro Exam: Alert, Awake, Oriented, Moving All Extremities Psychiatric Psych Exam: Appropriate Responses PUD Prophylasis PUD Prophylaxis: Protonix Assessment/Plan Discussed Condition With: Patient Assessment Summary: REGAN/Acute Renal Failure, Anemia of CKD, Hypertension, Diabetes Mellitus Problem List: (1) Acute kidney failure Plan: Renal function had declined, improved today. May have UTI, which could be playing a role. Allergic interstitial nephritis is another consideration, but renal function is better today. Minimize exposure to medications, avoid all "non essential agents". (2) CKD (chronic kidney disease), stage III Plan: Due to diabetic nephropathy monitor renal function her baseline creatinine is 1.3-1.7 (3) DKA (diabetic ketoacidoses) Plan: appears to have resolved. (4) Metabolic acidosis Plan: Resolved. Sodium bicarbonate drip discontinued. (5) UTI (urinary tract infection) Plan: Remove Maurer catheter. Most likely she will not need antibiotics. Discussed with Dr. Isaacs. Problem Qualifiers (1) DKA (diabetic ketoacidoses): Valdez Patterson MD Jan 16, 2017 08:43 Valdez Patterson MD Jan 16, 2017 08:43
[2017-01-16] MEDS: ENOXAPARIN SODIUM 30 MG/0.3 ML SYRINGE SQ SCH (09:00)
[2017-01-16] MEDS: INSULIN GLARGINE 1,000 UNITS/10 ML VIAL SQ SCH (09:00)
--- NOTE | 2017-01-16 09:56 | HHI.PR ---
Subjective Remarks Written by Shiraz Espinal, acting as scribe for Dr. Ribeiro on 01/16/17 at 09: 50. Patient is doing much better. She is in the hallway sitting on a recliner. She is much more alert. Talking in full sentences. Able to move all extremities. denies any pain, has a much better appetite per RN and pt agrees. Asks questions Objective Vitals Vital Signs Date Time Temp Pulse Resp B/P Pulse Ox O2 Delivery O2 Flow Rate FiO2 01/16/17 08:00 97.7 98 18 160/88 96 01/16/17 04:00 97.9 95 20 130/72 97 01/16/17 00:00 98.1 92 20 150/93 97 01/15/17 23:28 98 Nasal Cannula 2.00 01/15/17 20:00 98.3 90 16 116/85 100 01/15/17 20:00 Nasal Cannula 2.00 01/15/17 20:00 89 01/15/17 17:00 87 12 123/73 98 01/15/17 16:00 92 11 140/78 99 01/15/17 16:00 92 01/15/17 15:00 96 12 104/94 97 01/15/17 14:00 90 01/15/17 14:00 98.2 90 17 110/71 94 01/15/17 13:00 94 17 148/84 94 01/15/17 12:00 98.1 98 17 141/87 100 01/15/17 12:00 98 01/15/17 11:00 104 14 178/100 100 01/15/17 10:00 100 8 156/89 100 01/15/17 10:00 105 I/O 01/15/17 01/15/17 01/15/17 01/16/17 01/16/17 01/16/17 07:00 15:00 23:00 07:00 15:00 23:00 Intake Total 529 ml 60 ml 60 ml Output Total 300 ml 450 ml 575 ml 325 ml Balance 229 ml -450 ml -515 ml -265 ml Intake Oral 30 ml 60 ml 60 ml IV Total 499 ml Output Urine Total 300 ml 450 ml 575 ml 325 ml # Bowel Movements 0 0 0 0 Result Diagram: 01/16/1730 01/16/17629 Imaging Last Impressions Chest X-Ray 01/13/17 0000 Signed Impressions: Service Date/Time: January 15:34 - CONCLUSION: Underinflation with atelectasis at the lung bases. No other acute finding is appreciated. Jim Michaels MD Brain MRI 01/11/17 0000 Signed Impressions: Service Date/Time: Wednesday, January 11, 2017 15:04 - CONCLUSION: 1. Stable focus of abnormal signal involving the left centrum semiovale likely related to prior lacunar infarct. No acute intracranial anatomy. Rafiq Nielson MD Head CT 01/10/17 0917 Signed Impressions: Service Date/Time: Tuesday, January 10, 2017 09:49 - CONCLUSION: 1. Interval development of left sided mastoiditis since 11/22/2016. Clinical correlation is recommended. 2. Otherwise, no acute intracranial abnormality. Eriberto Madison MD Abdomen/Pelvis CT 12/25/16 1100 Signed Impressions: Service Date/Time: Sunday, December 25, 2016 12:00 - CONCLUSION: Interval development of anasarca, small bilateral effusions and small to moderate ascites. No significant ileus, hydronephrosis, mass or lymphadenopathy. Status post cholecystectomy. Bobby Martins MD Abdomen X-Ray 12/25/16 0857 Signed Impressions: Service Date/Time: Sunday, December 25, 2016 09:27 - CONCLUSION: No acute disease. Bobby Martins MD Upper Extremity Ultrasound 12/24/16 0000 Signed Impressions: Service Date/Time: Saturday, December 24, 2016 11:58 - CONCLUSION: Normal examination. KReza Luna MD Renal Ultrasound 12/24/16 0000 Signed Impressions: Service Date/Time: Saturday, December 24, 2016 11:53 - CONCLUSION: 1. Increased echogenicity of the renal cortex which can be seen with underlying medical renal disease. 2. No findings to indicate renal obstruction. 3. Small bilateral effusions and a trace amount of ascites within the abdomen. Umesh Farah MD Tibia/Fibula X-Ray 12/03/16 0000 Signed Impressions: Service Date/Time: Saturday, December 03, 2016 15:09 - CONCLUSION: Excellent alignment of the patient's tibial fracture post rodding. Patient has a minimally displaced fibular fracture as well. Umesh Farah MD Ankle X-Ray 12/02/16 0000 Signed Impressions: Service Date/Time: , December 02, 2016 18:16 - CONCLUSION: 1. The ankle mortise is intact. 2. Distal tibial and fibular fractures again noted. Please see right leg report for further details. Javier Marino MD Objective Remarks GENERAL: thin, much more alert today Eyes: oval shaped pupils, do react ot light. Conjunctivae were clear. NECK: Trachea midline no deviation. CARDIAC: Regular rhythm, regular rate. No murmurs LUNGS: Clear to auscultation bilaterally. No wheeze. ABDOMEN: Soft, nontender. Nondistended. Bowel sounds heard in all 4 quadrants. EXTREMITIES: No edema, NEUROLOGY: Patient is now engaging in conversation with appropriate answers. Speaking in full sentences. Able to eat more this morning. raises both hands when I ask her and does move her hands as instructed. I didn't note any tremors at this time Procedures 12/03: IM Reymundo fixation right lower extremity Urinary Catheter: No Vascular Central Line Catheter: No A/P Assessment and Plan Metabolic acidosis with anion gap, recurrent and much improved Likely secondary to diabetes, could be ketoacidosis, Lactic acid level was normal. Elevated beta hydroxybutyrate Transferred to medical/surgical floor 01/15/17 Discuss with nephrology who indicates today discontinuation of bicarbonate drip. Recommending one half normal saline at low rate Continue monitor BMP Altered mental status with multiple neurological symptoms to include tremors, ataxia, falls, difficulty speech. Much improved CT scan of the brain did not indicate any acute abnormality EEG was normal Medications were adjusted to include discontinuation of Reglan, decrease in Remeron, Effexor Dilantin increased to 200 mg in the morning, 300 mg in the evening, will decrease to 200 mg twice daily on hold. Dilantin level 15.2 neurology re-evaluated the pt and stopped Keppra and dilantin, has switched her to trileptal in place 300 mg bid MRI of the brain was without any acute abnormality Acute renal failure superimposed on chronic kidney disease stage III, improving today Continue IV fluid Previous Renal ultrasound shows medical renal disease Nephrology following the patient, discussed with them today who recommended continue IV fluids today and may be discontinued tomorrow morning. Pt no longer has meade cath per their recs. Will continue to monitor kidney function Pyuria Urine culture with enterococcus VRE and Brenna albicans, only 10-15,000 Brenna and enterococcus [id number], no significant or isolated urinary tract infection. Patient asymptomatic. Unofficial consultation with infectious disease indicated, no need for treatment Hypernatremia, resolved Secondary to poor by mouth intake 1/2 normal saline Monitor sodium level Healthcare associated pneumonia/aspiration pneumonia Patient currently asymptomatic, no fever, cough, leukocytosis Legionella, streptococcal antigen were negative Completed treatment with cefepime Anorexia, decreased appetite, not wanting to eat, this appears to be a choice and not a clinical abnormality Patient is on Keppra which can cause anorexia but patient has been on these for an extended period of time. No other symptoms reported. Reverse Unit Operator consulted. Recommends continue diabetic diet, restart Glucerna shakes, recommend Theragran-M Continue Megace Remeron 15 mg daily,secondary to possible extrapyramidal symptoms, Effexor 37.5 mg every 48 hours secondary to possible extrapyramidal symptoms Multiple abdominal scans have been performed without any acute abnormality Consult psychiatry for evaluation because of her reluctant to eat, flat affect , depressed mood Psychiatrist indicates patient could benefit from psychiatric admission in the [facility] floor was medically stable Palliative care was reconsulted, Father believes the patient would want ongoing aggressive goals of care including resuscitation attempts. Father believes that if the patient were awake and alert she would want all treatments and procedures done to get her better. He feels that while she is incapacitated and she does not understand what's happening the medical team should go ahead and do what's needed even if she objects or refuses. Father independently asked the medical team to consider transferring her to [facility] if she does not begin to improve soon. Nursing staff to do daily weights on standing scale, Respiratory insufficiency with hypoxia:` Chest x-rays were performed which do show bi-basilar atelectasis, repeat x-ray shows right lower lung infiltrate, possible aspiration Patient encouraged to do incentive spirometry every couple hours Wean off oxygen to maintain O2 sats greater than 88% Right closed tibial fracture status post reymundo fixation on December 03. Orthopedic recommending Nonweightbearing. Ortho was reconsulted to follow patient here at PO. Andra Martines spoke with Dr. Mills who states if wound looks good, can remove lex. Lex removed on 12/22/16 Pain control Tylenol 650 mg every 6 hours as needed for pain 110 Hypertension: Norvasc 10 mg daily Lopressor 12.5 mg twice daily Clonidine 0.1 mg every 8 hours Clonidine, Apresoline as needed Systemic inflammatory response syndrome, resolved Patient no longer meets criteria, patient did have tachycardia, leukocytosis, no infectious source Diabetes type 2, uncontrolled Hemoglobin A1c 10.8 Accu-Cheks with sliding scale insulin Lantus 4 units at bedtime, patient is allergic to Levemir Anemia, acute on chronic: . Secondary to blood loss due to surgery and anemia of chronic disease due to renal failure. Status post transfusion with 2 PRBC Monitor hemoglobin GI was consulted due to anemia. Per GI she had colonoscopy and endoscopy done 2 months ago which was normal. She had no signs of any GI bleed. GI signed off. Hypocalcemia: Patient was initially refusing TUMS but I informed her it is necessary for fracture healing. PTH level and calcitonin level are normal Vitamin D deficiency: 25-OH Vitamin D level 9.4. Patient states she took Vitamin D at home, but this is not in med rec. Continue Vitamin D2 50,000 weekly for 6-8 weeks then transition to lower daily supplementation. History of seizure disorder, CVA and lupus Continue home medication. Hold anticonvulsants at this time. Keppra 1000 mg BID, Dilantin 200 mg in the morning, 200 mg at bedtime Monitor dilantin level periodically. 01/12/17 Dilantin 25.5 DVT prophylaxis Sequential compression devices, subcutaneous Lovenox 01/12/17 discussion with neurology. Upon review of medical records, physical findings, workup results. 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 He recommended continuation of her antiseizure medications and feels that this is related to underlying psychological issue and recommended psychiatry consult. He indicated the patient is clear for discharge to rehabilitation facility from neurological standpoint 01/13/17 discussed with palliative care, psychiatry. Psychiatry indicates that patient is in catatonic state. We'll initiate Ativan provocation. After initial administration Ativan patient did become more alert and was able to speak. 01/15/17 patient much more alert today. Continue treating for catatonic state 01/15/17 Neurology re-consulted for recommendations, who discontinued Dilantin and Keppra. Started patient on Trileptal for seizure prevention This note was transcribed by simone Espinal. I, Dr. Tg Ribeiro personally performed the history, physical exam, and medical decision making; and confirmed the accuracy of the information in the transcribed note. Authenticated by Dr. Tg Ribeiro on 01/16/17 at 09:50. Discharge Planning Discharge planning per case management Shiraz Espinal Jan 16, 2017 09:56 Tg Ribeiro MD Jan 16, 2017 13:17
[2017-01-16] MEDS: CALCIUM CARBONATE 500 MG CHEWABLE TAB CHEW SCH ×2 (11:42→20:43)
[2017-01-16] MEDS: SODIUM CHLOR 0.45% 1000 ML INJ 1,000 ML IV SCH (13:19)
[2017-01-16] MEDS: MIRTAZAPINE ODT 15 MG TAB PO SCH (16:49)
--- NOTE | 2017-01-16 19:23 | HHI.PR ---
Review/Management Diagnosis sz Plan continue trileptal Diagnosis/Plan: Subjective Subjective Comments No acute events reported No seizures tolerating trileptal well. Active Medications Current Medications Medications (Trade) Dose Ordered Sig/Marin Route Start Time Stop Time Status Last Admin (Rivka-Colace) 1 tab BID PO 12/03/16 21:00 01/15/17 08:56 (Milk Of Magnesia Liq) 30 ml Q12H PRN PO 12/03/16 16:00 (Dulcolax Supp) 10 mg DAILY PRN RECTAL 12/03/16 16:00 (Catapres) 0.1 mg Q6H PRN PO 12/11/16 13:30 12/27/16 04:20 (Lipitor) 80 mg DAILY PO 12/21/16 09:00 01/16/17 08:03 (Tums Chew) 1,000 mg Q12HR CHEW 12/22/16 21:00 01/16/17 11:42 (Drisdol) 50,000 units Q7D PO 12/23/16 09:00 01/06/17 09:17 (Tylenol) 650 mg Q6H PRN PO 12/24/16 14:15 (D50w (Vial) Inj) 50 ml UNSCH PRN IV 12/26/16 04:30 (Glucagon Inj) 1 mg UNSCH PRN OTHER 12/26/16 04:30 (Norvasc) 10 mg DAILY PO 12/29/16 09:00 01/16/17 08:02 (Zofran Liq) 4 mg Q6H PRN PO 12/28/16 15:45 01/01/17 02:37 (Protonix) 40 mg DAILY PO 12/29/16 09:00 01/16/17 08:05 (Lopressor) 12.5 mg Q12HR PO 12/28/16 21:00 01/16/17 08:03 (Pill Splitter) 1 ea UNSCH PRN OTHER 12/28/16 16:15 (Theragran M Tab) 1 tab DAILY PO 01/01/17 10:15 01/16/17 08:03 (Lantus Inj) 4 units DAILY SQ 01/07/17 09:00 01/16/17 09:00 (Megace Liq) 400 mg BID PO 01/07/17 21:00 01/16/17 08:06 (Remeron Soltab Odt) 15 mg HS PO 01/09/17 21:00 01/16/17 16:49 (Ativan Inj) 1 mg Q4H PRN IV PUSH 01/10/17 21:00 (Catapres) 0.1 mg Q8HR PO 01/11/17 14:00 01/16/17 15:59 (Vasotec Inj) 1.25 mg Q6H PRN IV PUSH 01/12/17 16:30 Hold 01/13/17 18:58 (Ativan) 2 mg Q6HR PO 01/13/17 18:00 01/16/17 16:00 Miscellaneous Information Patient in critical care unit? Ass... Q361D .XX 01/14/17 06:00 01/14/17 06:00 (Chlorhexidine 2% Cloth) 3 pack DAILY@04 TOPICAL 01/15/17 04:00 01/19/17 04:01 01/15/17 01:36 (Chlorhexidine 2% Cloth) 3 pack UNSCH PRN TOPICAL 01/14/17 06:00 01/19/17 05:51 Enoxaparin Sodium 30 mg 30 mg DAILY SQ 01/14/17 09:00 01/16/17 09:00 (1/2 NS 1000 ml Inj) 1,000 ml @ 42 mls/hr [id number] IV 01/15/17 13:30 01/16/17 13:19 (Trileptal) 300 mg BID PO 01/15/17 21:00 01/16/17 08:04 Allergies Allergies Coded Allergies Aspirin (Verified Allergy, Severe, 12/02/16) Penicillin (Verified Allergy, Severe, 12/02/16) Sulfa (Verified Allergy, Severe, 12/02/16) Banana (Verified Allergy, Intermediate, Hives, 12/02/16) Adhesives (Verified Allergy, Unknown, 12/02/16) Macrobid (Unverified Allergy, Unknown, 12/02/16) Levemir (Verified Adverse Reaction, Severe, Sweats, funny feeling, mood swings , daze, 12/04/16) *MDRO Multi-Drug Resistant Organism (Unverified Adverse Reaction, Unknown, MRSA, 01/03/17) Exam I&O / VS 801/15/17 01/16/17 15:00 23:00 07:00 Intake Total 60 ml 60 ml Output Total 450 ml 575 ml 325 ml Balance -450 ml -515 ml -265 ml Intake Oral 60 ml 60 ml Output Urine Total 450 ml 575 ml 325 ml # Bowel Movements 0 0 0 Vital Signs Date Time Temp Pulse Resp B/P Pulse Ox O2 Delivery O2 Flow Rate FiO2 01/16/17 16:00 97.1 102 18 129/71 91 01/16/17 12:00 97.5 89 17 152/76 99 01/16/17 08:00 Nasal Cannula 2.00 01/16/17 08:00 97.7 98 18 160/88 96 01/16/17 08:00 84 01/16/17 07:30 98 Nasal Cannula 2.00 01/16/17 04:00 97.9 95 20 130/72 97 01/16/17 00:00 98.1 92 20 150/93 97 01/15/17 23:28 98 Nasal Cannula 2.00 01/15/17 20:00 98.3 90 16 116/85 100 01/15/17 20:00 Nasal Cannula 2.00 01/15/17 20:00 89 Exam Comments alert, speech normal CN 2-12 normal MOTOR 5/5 BUE , no drift DTR 2+ symmetric Objective Micro and Labs Laboratory Tests Test 01/16/17 06:30 White Blood Count 6.0 Red Blood Count 2.66 Hemoglobin 7.8 Hematocrit 24.1 Mean Corpuscular Volume 90.5 Mean Corpuscular Hemoglobin 29.3 Mean Corpuscular Hemoglobin 32.3 Concent Red Cell Distribution Width 15.4 Platelet Count 206 Mean Platelet Volume 10.6 Neutrophils (%) (Auto) 73.9 Lymphocytes (%) (Auto) 17.1 Monocytes (%) (Auto) 6.3 Eosinophils (%) (Auto) 2.4 Basophils (%) (Auto) 0.3 Neutrophils # (Auto) 4.5 Lymphocytes # (Auto) 1.0 Monocytes # (Auto) 0.4 Eosinophils # (Auto) 0.1 Basophils # (Auto) 0.0 CBC Comment DIFF FINAL Differential Comment Sodium Level 143 Potassium Level 3.9 Chloride Level 106 Carbon Dioxide Level 28.9 Anion Gap 8 Blood Urea Nitrogen 21 Creatinine 1.90 Estimat Glomerular Filtration 34 Rate Random Glucose 141 Calcium Level 8.0 Magnesium Level 1.9 Phenytoin (Dilantin) Level 15.2 Date/Time Procedure Status Source Growth 01/13/17 15:40 Urine Culture - Final Complete Urine Catheterized Urine Enterococcus Faecium Vre Brenna Albicans Edmond Lam PhD MD Jan 16, 2017 19:23
[2017-01-17] VITALS (9 sets, daily range): BP systolic 84–148; BP diastolic 50–85; PULSE 90–103; RESP 16–20; TEMP 98.3–99.9; O2SAT 87–100
[2017-01-17] MEDS: cloNIDine HCL 0.1 MG TAB PO SCH ×2 (00:02→05:23)
[2017-01-17] MEDS: CHLORHEXIDINE GLUCONATE 2 % 1 PACK (2 CLOTHS)(taper/protocol) TOPICAL SCH (03:44)
[2017-01-17] MEDS: LORazepam 2 MG TAB PO SCH ×3 (05:22→11:17)
[2017-01-17 06:44] LABS: AUTOMATED NEUTROPHIL # 5.1 TH/MM3 (1.8-7.7); BASOPHIL # 0.1 TH/MM3 (0-0.2); BASOPHIL % 1.1 % (0.0-2.0); EOSINOPHIL # 0.1 TH/MM3 (0-0.4); EOSINOPHIL % 1.8 % (0.0-4.0); HEMATOCRIT 23.3 % (35.0-46.0); HEMO FLAGS DIFF FINAL; LYMPH % 19.1 % (9.0-44.0); LYMPHOCYTE # 1.4 TH/MM3 (1.0-4.8); MEAN CELL VOLUME 90.1 FL (80.0-100.0); MEAN CORPUSCULAR HEMOGLOBIN 29.5 PG (27.0-34.0); MEAN CORPUSCULAR HGB CONC 32.8 % (32.0-36.0); MONO % 6.4 % (0.0-8.0); NEUT % 71.6 % (16.0-70.0); PLATELET COUNT 175 TH/MM3 (150-450); RED BLOOD COUNT 2.59 MIL/MM3 (4.00-5.30); RED CELL DISTRIBUTION WIDTH 15.2 % (11.6-17.2); WHITE BLOOD COUNT 7.2 TH/MM3 (4.0-11.0)
[2017-01-17 06:53] LABS: POTASSIUM 3.8 MEQ/L (3.5-5.1)
[2017-01-17 06:56] LABS: BICARBONATE 25.5 MEQ/L (21.0-32.0)
[2017-01-17] MEDS: INSULIN ASPART SUPPLEMENTAL SCALE SQ SCH ×4 (07:00→21:00)
[2017-01-17] MEDS: DOCUSATE SODIUM 50 MG/SENNA 8.6 MG TAB PO SCH ×3 (09:00→22:42)
[2017-01-17] MEDS: INSULIN GLARGINE 1,000 UNITS/10 ML VIAL SQ SCH ×2 (09:00→11:30)
--- NOTE | 2017-01-17 10:18 | HHI.NPPN ---
Subjective General Problems: Anemia Renal Failure: Chronic, Acute Interval History Her renal function is worse. The meade has been removed. She states she has been eating/drinking. (Eva Marcelo) Review of Systems General Constitutional: Fatigue General Remarks she has no complaints (Eva Marcelo) Objective Data Data 01/16/17 01/17/17 19:00 07:00 Intake Total 464 ml Output Total 600 ml 0 ml Balance -600 ml 464 ml Intake Oral 60 ml IV Total 404 ml Output Urine Total 600 ml 0 ml Bladder Scan Volume Amount 159 ml # Bowel Movements 1 Vital Signs Date Time Temp Pulse Resp B/P Pulse Ox O2 Delivery O2 Flow Rate FiO2 01/17/17 05:19 99.2 95 18 96/57 92 01/17/17 00:10 91 18 106/60 97 01/16/17 20:35 Nasal Cannula 2.00 01/16/17 20:00 97.7 77 17 128/76 96 01/16/17 19:42 98 Nasal Cannula 2.00 01/16/17 16:00 97.1 102 18 129/71 91 01/16/17 12:00 97.5 89 17 152/76 99 (Eva Marcelo) -: 01/17/17 0600 01/17/17 0600 Imaging Last Impressions Chest X-Ray 01/13/17 0000 Signed Impressions: Service Date/Time: January 15:34 - CONCLUSION: Underinflation with atelectasis at the lung bases. No other acute finding is appreciated. Jim Michaels MD Brain MRI 01/11/17 0000 Signed Impressions: Service Date/Time: Wednesday, January 11, 2017 15:04 - CONCLUSION: 1. Stable focus of abnormal signal involving the left centrum semiovale likely related to prior lacunar infarct. No acute intracranial anatomy. Rafiq Nielson MD Head CT 01/10/17 0917 Signed Impressions: Service Date/Time: Tuesday, January 10, 2017 09:49 - CONCLUSION: 1. Interval development of left sided mastoiditis since 11/22/2016. Clinical correlation is recommended. 2. Otherwise, no acute intracranial abnormality. Eriberto Madison MD Abdomen/Pelvis CT 12/25/16 1100 Signed Impressions: Service Date/Time: Sunday, December 25, 2016 12:00 - CONCLUSION: Interval development of anasarca, small bilateral effusions and small to moderate ascites. No significant ileus, hydronephrosis, mass or lymphadenopathy. Status post cholecystectomy. Bobby Martins MD Abdomen X-Ray 12/25/16 0857 Signed Impressions: Service Date/Time: Sunday, December 25, 2016 09:27 - CONCLUSION: No acute disease. Bobby Martins MD Upper Extremity Ultrasound 12/24/16 0000 Signed Impressions: Service Date/Time: Saturday, December 24, 2016 11:58 - CONCLUSION: Normal examination. KReza Luna MD Renal Ultrasound 12/24/16 0000 Signed Impressions: Service Date/Time: Saturday, December 24, 2016 11:53 - CONCLUSION: 1. Increased echogenicity of the renal cortex which can be seen with underlying medical renal disease. 2. No findings to indicate renal obstruction. 3. Small bilateral effusions and a trace amount of ascites within the abdomen. Umesh Farah MD Tibia/Fibula X-Ray 12/03/16 0000 Signed Impressions: Service Date/Time: Saturday, December 03, 2016 15:09 - CONCLUSION: Excellent alignment of the patient's tibial fracture post rodding. Patient has a minimally displaced fibular fracture as well. Umesh Farah MD Ankle X-Ray 12/02/16 0000 Signed Impressions: Service Date/Time: November 18:16 - CONCLUSION: 1. The ankle mortise is intact. 2. Distal tibial and fibular fractures again noted. Please see right leg report for further details. Javier Marino MD (Eva Marcelo) Physical Exam General Appearance: Well Developed, No Acute Distress, Comfortable (Eva MarceloP) Throat Throat Exam: Oral Mucosa [place] & Moist (Eva MarceloP) Neck Neck Exam: Neck Supple (Eva Marcelo SENIOR MEDICAL TECHNOLOGIST) Pulmonary Resp Exam: Clear Bilaterally, Breath Sounds Equal, No Distress, Decreased Bases (Eva Marcelo SENIOR MEDICAL TECHNOLOGIST) Cardiology CV Exam: Regular, Normal Sinus Rhythm (Eva MarceloP) Gastrointestinal/Abdomen GI Exam: Soft, Non-Tender, Bowel Sounds Present (Eva Marcelo) Musculoskeletal MS Exam: Joints Intact, Normal Tone, Good Strength (Eva Marcelo) Integumentary Skin Exam: Clear, Warm, Dry, Intact (Eva Marcelo) Extremeties Extremities Exam: No Edema, Pedal Pulses Palpable (Eva Marcelo) Neurologic Neuro Exam: Alert, Awake, Oriented, Speech Clear, Moving All Extremities ( Eva Marcelo) Psychiatric Psych Exam: Appropriate Responses (Eva Marcelo) VTE Prophylaxis Meds: Lovenox (Eva Marcelo) PUD Prophylasis PUD Prophylaxis: Protonix (Eva Marcelo) Assessment/Plan Discussed Condition With: Patient Assessment Summary: REGAN/Acute Renal Failure, Anemia of CKD, Hypertension, Diabetes Mellitus Problem List: (1) Acute kidney failure Plan: Renal function has declined, unsure of etiology meade has been removed, check post void bladder scan Allergic interstitial nephritis is another consideration Minimize exposure to medications, avoid all "non essential agents". repeat renal panel in AM she is on maintenance IVF avoid nephrotoxic substances (2) CKD (chronic kidney disease), stage III Plan: Due to diabetic nephropathy monitor renal function her baseline creatinine is 1.3-1.7 (3) UTI (urinary tract infection) Plan: Meade was removed low colony count, asymptomatic, she has not beens started on antibiotics. (4) DKA (diabetic ketoacidoses) Plan: resolved, monitor for recurrence (5) Metabolic acidosis Plan: Resolved. Sodium bicarbonate drip discontinued. (Eva Marcelo) Plan patient was seen and examined. Renal function has declined. Repeat UA. Rule out bladder retention. (Valdez Patterson MD) Problem Qualifiers (1) DKA (diabetic ketoacidoses): Eva Marcelo Jan 17, 2017 10:18 Valdez Patterson MD Jan 18, 2017 20:08
[2017-01-17] MEDS: OXcarbazepine 300 MG TAB PO SCH ×2 (11:14→22:47)
[2017-01-17] MEDS: CALCIUM CARBONATE 500 MG CHEWABLE TAB CHEW SCH ×2 (11:14→22:41)
[2017-01-17] MEDS: METOPROLOL TARTRATE 25 MG TAB PO SCH ×2 (11:15→22:41)
[2017-01-17] MEDS: MEGESTROL ACETATE SUSP 400 MG/10 ML CUP PO SCH ×2 (11:15→22:43)
[2017-01-17] MEDS: ATORVASTATIN 40 MG TAB PO SCH (11:16)
[2017-01-17] MEDS: MULTIVITAMINS/MINERALS THERAPEUTIC TAB PO SCH (11:16)
[2017-01-17] MEDS: PANTOPRAZOLE SOD 40 MG DELAYED RELEASE TAB PO SCH (11:16)
[2017-01-17] MEDS: SODIUM CHLOR 0.45% 1000 ML INJ 1,000 ML IV SCH (11:17)
[2017-01-17] MEDS: ENOXAPARIN SODIUM 30 MG/0.3 ML SYRINGE SQ SCH (11:17)
--- NOTE | 2017-01-17 12:52 | HHI.PR ---
Subjective Remarks Patient seen today in follow-up for toxic encephalopathy which is improved. Patient now complaining of sinus pressure and discomfort which is previously treated at home with Asha-[place] plus. Patient says that her head is achy in her face hurts due to the pressure of her sinuses. Mental status is much improved. Care plan discussed with physical therapy. Patient tolerating Trileptal. She requests to ambulate Objective Vitals Vital Signs Date Time Temp Pulse Resp B/P Pulse Ox O2 Delivery O2 Flow Rate FiO2 01/17/17 05:19 99.2 95 18 96/57 92 01/17/17 00:10 91 18 106/60 97 01/16/17 20:35 Nasal Cannula 2.00 01/16/17 20:00 97.7 77 17 128/76 96 01/16/17 19:42 98 Nasal Cannula 2.00 01/16/17 16:00 97.1 102 18 129/71 91 I/O 01/16/17 01/16/17 01/16/17 01/17/17 01/17/17 01/17/17 07:00 15:00 23:00 07:00 15:00 23:00 Intake Total 60 ml 464 ml Output Total 325 ml 600 ml 0 ml Balance -265 ml -600 ml 464 ml Intake Oral 60 ml 60 ml IV Total 404 ml Output Urine Total 325 ml 600 ml 0 ml Bladder Scan Volume Amount 159 ml # Bowel Movements 0 1 Result Diagram: 01/17/17 0600 01/17/17 0600 Objective Remarks GENERAL: This is a well-nourished, well-developed patient, who sounds congested CARDIOVASCULAR: Regular rate and rhythm without murmurs, gallops, or rubs. RESPIRATORY: Clear to auscultation. Breath sounds equal bilaterally. No wheezes , rales, or rhonchi. GASTROINTESTINAL: Abdomen soft, non-tender, nondistended. Normal active bowel sounds MUSCULOSKELETAL: Extremities without clubbing, cyanosis, or edema. NEURO: Alert & Oriented x4 to person, place, time, situation. Moves all ext x4 Procedures 12/03: IM Reymundo fixation right lower extremity A/P Problem List: (1) Catatonia ICD Code: F06.1 Status: Resolved Plan: Resolving, patient closely at baseline. Responded to Ativan provocation and decrease in dilantin levels per psychiatry Patient with prominent negativism, abulia, apathetic, confused, blocking thought and poverty of speech may be hypoactive delirium v phenytoin intoxication and catatonia appears to be resolved (2) DM (diabetes mellitus) type I uncontrolled with renal manifestation ICD Code: E10.29 Status: Chronic Plan: DKA improved/resolved. Metabolic acidosis is resolved Continue with Lantus (Levemir allergy) Hemoglobin A1c 10.8 (3) Seizure ICD Code: R56.9 Status: Acute Plan: Patient continues with Trileptal, Dilantin toxicity noted but improved (4) Closed fracture of right tibia and fibula ICD Code: S82.201A Plan: Continue nonweightbearing status for now, patient on Tums to improve fracture healing, continue vitamin D s/p im reymundo of comminuted closed fracture Ortho eval pending (5) Acute kidney injury superimposed on chronic kidney disease ICD Code: N17.9 Status: Acute Plan: Renal ultrasound shows medical renal disease Continue IV hydration Renal following. Evidence of asymptomatic pyuria which requires no treatment Follow-up electrolytes (6) Anorexia ICD Code: R63.0 Status: Acute Plan: Appears to have improved this patient is eating quite a bit now (feeding tube never placed, nutritional assistance appreciated). 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
[2017-01-17] MEDS: guaiFENesin E.R. 600 MG TAB PO SCH ×2 (13:55→22:40)
[2017-01-17 14:35] LABS: GLUCOSE,URINE NEG (NEG); KETONE, URINE 15 mg/dL (NEG); NITRITE,URINE NEG (NEG)
[2017-01-17 14:36] LABS: BLOOD, URINE MOD (NEG)
[2017-01-17 14:39] LABS: URINE COLOR YELLOW (YELLW/STRAW); WBC, URINE 100-200 /hpf (0-5)
[2017-01-17 14:40] LABS: BACTERIA, URINE FEW /hpf; COMMENT (UR) CULTURE INDICATED; CULTURE IF INDICATED CULTURE INDICATED; SQUAMOUS EPITHELIAL CELL URINE 0-5 /hpf (0-5)
[2017-01-17] MEDS: MIRTAZAPINE ODT 15 MG TAB PO SCH (22:44)
[2017-01-18 06:04] LABS: BASOPHIL # 0.1 TH/MM3 (0-0.2); EOSINOPHIL # 0.2 TH/MM3 (0-0.4); EOSINOPHIL % 3.5 % (0.0-4.0); HEMATOCRIT 24.7 % (35.0-46.0); HEMO FLAGS DIFF FINAL; LYMPH % 30.1 % (9.0-44.0); LYMPHOCYTE # 2.1 TH/MM3 (1.0-4.8); MEAN CELL VOLUME 90.3 FL (80.0-100.0); MEAN CORPUSCULAR HEMOGLOBIN 29.7 PG (27.0-34.0); MEAN CORPUSCULAR HGB CONC 32.9 % (32.0-36.0); MONO % 8.2 % (0.0-8.0); NEUT % 57.2 % (16.0-70.0); PLATELET COUNT 176 TH/MM3 (150-450); RED BLOOD COUNT 2.73 MIL/MM3 (4.00-5.30); RED CELL DISTRIBUTION WIDTH 15.5 % (11.6-17.2)
[2017-01-18 06:13] LABS: POTASSIUM 3.7 MEQ/L (3.5-5.1)
[2017-01-18 06:17] LABS: BICARBONATE 26.7 MEQ/L (21.0-32.0)
[2017-01-18] MEDS: INSULIN ASPART SUPPLEMENTAL SCALE SQ SCH ×4 (07:00→21:00)
[2017-01-18 08:00] VITALS: BP 156/82; PULSE 97; RESP 16; TEMP 98.1; O2SAT 94
--- NOTE | 2017-01-18 08:12 | HHI.PYPN ---
Subjective Remarks Patient was seen today for psychiatric reevaluation, patient surprisingly good much better compared with the last time he saw her, with a brighter, full range affect, smiling of pain, fully engageable in a conversation. She reports improved mood, patient says that she is motivated to get better and be discharged and take care of her son. At this moment the patient denies depressive symptoms, she denies anhedonia, she denies hopelessness, she denies helplessness, she denies worthlessness, her appetite has been improving "little by little", good sleep at night, she denies suicidal and homicidal ideation, she denies visual and auditory hallucinations. At the moment of this evaluation the patient does not show any particular negativism, stiffness, rigidity, poverty of speech or blocking thought. Patient is fully oriented 3, without attention deficit, without fluctuation of consciousness. So far compliant with her medication, no significant side effects. Review of Systems Other No somatic complaints Objective Alert: Yes [place]: Person, Place, Date, Situation Mood: Calm Affect: Appropriate Memory Intact: Immediate, Recent, Remote Hallucinations: Other (no hallucinations) Delusions: No Delusion Type: Other (no elicited) Suicidal: Ideation (no SI) Homicidal: Ideation (no HI) Insight/Judgment Improved Labs Test 01/17/17 01/18/17 14:15 05:10 Urine Color YELLOW Urine Turbidity CLOUDY Urine pH 6.0 Urine Specific [place] 1.020 Urine Protein 300 OR GREATER mg/dL Urine Glucose (UA) NEG mg/dL Urine Ketones 15 mg/dL Urine Occult Blood MOD Urine Nitrite NEG Urine Bilirubin NEG Urine Leukocyte Esterase TRACE Urine RBC 4-9 /hpf Urine WBC 100-200 /hpf Urine WBC Clumps MOD Urine Squamous Epithelial 0-5 /hpf Cells Urine Amorphous Sediment MOD Urine Bacteria FEW /hpf Microscopic Urinalysis Comment CULTURE INDICATED White Blood Count 7.0 TH/MM3 Red Blood Count 2.73 MIL/MM3 Hemoglobin 8.1 GM/DL Hematocrit 24.7 % Mean Corpuscular Volume 90.3 FL Mean Corpuscular Hemoglobin 29.7 PG Mean Corpuscular Hemoglobin 32.9 % Concent Red Cell Distribution Width 15.5 % Platelet Count 176 TH/MM3 Mean Platelet Volume 10.4 FL Neutrophils (%) (Auto) 57.2 % Lymphocytes (%) (Auto) 30.1 % Monocytes (%) (Auto) 8.2 % Eosinophils (%) (Auto) 3.5 % Basophils (%) (Auto) 1.0 % Neutrophils # (Auto) 4.0 TH/MM3 Lymphocytes # (Auto) 2.1 TH/MM3 Monocytes # (Auto) 0.6 TH/MM3 Eosinophils # (Auto) 0.2 TH/MM3 Basophils # (Auto) 0.1 TH/MM3 CBC Comment DIFF FINAL Differential Comment Sodium Level 143 MEQ/L Potassium Level 3.7 MEQ/L Chloride Level 108 MEQ/L Carbon Dioxide Level 26.7 MEQ/L Anion Gap 8 MEQ/L Blood Urea Nitrogen 29 MG/DL Creatinine 3.30 MG/DL Estimat Glomerular Filtration 18 ML/MIN Rate Random Glucose 137 MG/DL Calcium Level 7.9 MG/DL Phosphorus Level 2.4 MG/DL Albumin 1.7 GM/DL Phenytoin (Dilantin) Level 7.5 MCG/ML Date/Time Procedure Status Source Growth 01/17/17 14:15 Urine Culture Received Urine Clean Catch Pending 01/13/17 15:40 Urine Culture - Final Complete Urine Catheterized Urine Enterococcus Faecium Vre Brenna Albicans Vitals/IOs Vital Signs Date Time Temp Pulse Resp B/P Pulse Ox O2 Delivery O2 Flow Rate FiO2 01/18/17 08:00 98.1 97 16 156/82 94 01/17/17 19:34 21 01/16/17 20:35 Nasal Cannula 2.00 Intake and Output 01/17/17 01/17/17 01/18/17 08:00 16:00 00:00 Intake Total 464 ml 336 ml Output Total 0 ml 300 ml Balance 464 ml 36 ml Assessment & Plan Problem List: (1) Adjustment disorder with depressed mood Assessment & Plan: At the moment of this evaluation patient does not present any particular or concerning symptomatology of depression, no catatonic symptoms present at this time. I agree with discontinuing benzodiazepines. Continue Remeron 15 mg at bedtime. ICD Code: F43.21 (2) Major depression, melancholic type ICD Code: F32.9 (3) Catatonia ICD Code: F06.1 Assessment & Plan Estimated LOS: days Justification for Cont. Inpt. There is no indication of psychiatric hospitalization for this moment. Sarthak Mace MD Jan 18, 2017 08:12
[2017-01-18] MEDS: MEGESTROL ACETATE SUSP 400 MG/10 ML CUP PO SCH ×2 (08:38→21:24)
[2017-01-18] MEDS: ENOXAPARIN SODIUM 30 MG/0.3 ML SYRINGE SQ SCH (08:38)
[2017-01-18] MEDS: OXcarbazepine 300 MG TAB PO SCH ×2 (08:40→21:25)
[2017-01-18] MEDS: guaiFENesin E.R. 600 MG TAB PO SCH ×2 (08:40→21:25)
[2017-01-18] MEDS: MULTIVITAMINS/MINERALS THERAPEUTIC TAB PO SCH (08:40)
[2017-01-18] MEDS: METOPROLOL TARTRATE 25 MG TAB PO SCH ×2 (08:40→21:25)
[2017-01-18] MEDS: INSULIN GLARGINE 1,000 UNITS/10 ML VIAL SQ SCH (08:41)
[2017-01-18] MEDS: CALCIUM CARBONATE 500 MG CHEWABLE TAB CHEW SCH ×2 (08:41→21:25)
[2017-01-18] MEDS: DOCUSATE SODIUM 50 MG/SENNA 8.6 MG TAB PO SCH ×2 (08:41→21:00)
--- NOTE | 2017-01-18 08:42 | HHI.NPPN ---
Subjective General Problems: Anemia Renal Failure: Chronic, Acute Interval History She is sitting up in bed. Alert. No pain. Her creatinine is worse today. I spoke with the nurse she was lethargic yesterday, possibly oversedated. ( Eva Marcelo) Review of Systems General Constitutional: Fatigue General Remarks she has no complaints (Eva Marcelo) Objective Data Data 01/17/17 01/18/17 19:00 07:00 Intake Total 336 ml Output Total 300 ml Balance 36 ml IV Total 336 ml Output Urine Total 300 ml Bladder Scan Volume Amount 220 ml 37 ml # Voids 3 # Bowel Movements 2 1 Vital Signs Date Time Temp Pulse Resp B/P Pulse Ox O2 Delivery O2 Flow Rate FiO2 01/18/17 08:00 98.1 97 16 156/82 94 01/17/17 23:00 98.3 94 20 148/85 99 Manual Cuff/Auscultation 01/17/17 20:00 99.9 96 16 84/50 93 01/17/17 19:34 87 21 01/17/17 16:00 99.5 90 16 84/50 90 01/17/17 12:00 98.7 103 20 133/83 93 01/17/17 10:00 92 21 (Eva Marcelo) -: 01/18/17 0510 01/18/17 0510 Microbiology 01/17/17 Urine Culture, Received Pending (Eva Marcelo) Physical Exam General Appearance: Well Developed, No Acute Distress, Comfortable (Eva Marcelo) Eyes Eye Exam: Pupils Equal (Eva Marcelo) Throat Throat Exam: Oral Mucosa [place] & Moist (Eva Marcelo) Neck Neck Exam: Neck Supple (Eva Marcelo) Pulmonary Resp Exam: Clear Bilaterally, Breath Sounds Equal, No Distress, Decreased Bases (Eva Marcelo) Cardiology CV Exam: Regular, Normal Sinus Rhythm (Eva Marcelo) Gastrointestinal/Abdomen GI Exam: Soft, Non-Tender, Bowel Sounds Present (Eva Marcelo) Musculoskeletal MS Exam: Joints Intact, Normal Tone, Good Strength (Eva Marcelo) Integumentary Skin Exam: Clear, Warm, Dry, Intact (Eva Marcelo) Extremeties Extremities Exam: No Edema, Pedal Pulses Palpable (Eva Marcelo) Neurologic Neuro Exam: Alert, Awake, Oriented, Speech Clear, Moving All Extremities ( Eva Marcelo) Psychiatric Psych Exam: Appropriate Responses (Eva Marcelo) PUD Prophylasis PUD Prophylaxis: Protonix (Eva Marcelo) Assessment/Plan Discussed Condition With: Patient Assessment Summary: REGAN/Acute Renal Failure, Anemia of CKD, Hypertension, Diabetes Mellitus Problem List: (1) Acute kidney failure Plan: Renal function has again declined she is not retaining urine, post void bladder scans around 100 ml looking back she was hypotensive on 01/14 and again yesterday, 01/17 possible renal hypoperfusion, may have progressed to ATN meade has been removed, it appears urine output has slowed Allergic interstitial nephritis is another consideration Minimize exposure to medications, avoid all "non essential agents". I held Protonix, hold parameters on antihypertensives discussed with nurse repeat renal panel in AM replace phosphorus restart IVF, 06/14 NS @ 50 cc/hr avoid nephrotoxic substances if no improvement over next few days, consider renal biopsy consider transferring to main hospital for continued care given renal decline (2) CKD (chronic kidney disease), stage III Plan: Due to diabetic nephropathy monitor renal function her baseline creatinine is 1.3-1.7 (3) UTI (urinary tract infection) Plan: asymptomatic, not on antibiotics (4) DKA (diabetic ketoacidoses) Plan: resolved, monitor for recurrence (5) Metabolic acidosis Plan: Resolved. monitor (Eva Marcelo) Plan patient was seen and examined. Her renal function continues to get worse. She apparently had a diagnosis of lupus. The patient reports that in 2010 she had a renal biopsy and the findings were suggestive of diabetic kidney disease. At this time, it is unclear why renal function is declining. It is possible that it is due to low BP and renal hypoperfusion and ATN. Proteinuria could be due to diabetic nephropathy. However, with history of lupus, cannot rule out relapse of lupus and lupus nephritis. I have ordered serologies including KARLEY, complement levels. Renal biopsy may be indicated. I discussed with Dr. Lamas for transfer to [facility] in [facility] so that if she develops a complication with biopsy, she will have access to all the specialists. I am considering empiric use of steroids. (Valdez Patterson MD) Problem Qualifiers (1) DKA (diabetic ketoacidoses): Eva MarceloP Jan 18, 2017 08:42 Valdez Patterson MD Jan 18, 2017 20:12
[2017-01-18] MEDS: ATORVASTATIN 40 MG TAB PO SCH (08:50)
[2017-01-18] MEDS: PANTOPRAZOLE SOD 40 MG DELAYED RELEASE TAB PO SCH (08:51)
[2017-01-18 09:00] VITALS: O2SAT 94
--- NOTE | 2017-01-18 11:22 | HHI.PR ---
Subjective Remarks Patient seen today in follow-up for REGAN on CKD stage 3 and Lupus Hg better Mental status cleared Objective Vitals Vital Signs Date Time Temp Pulse Resp B/P Pulse Ox O2 Delivery O2 Flow Rate FiO2 01/18/17 08:00 98.1 97 16 156/82 94 01/17/17 23:00 98.3 94 20 148/85 99 Manual Cuff/Auscultation 01/17/17 20:00 99.9 96 16 84/50 93 01/17/17 19:34 87 21 01/17/17 16:00 99.5 90 16 84/50 90 01/17/17 12:00 98.7 103 20 133/83 93 I/O 01/17/17 01/17/17 01/17/17 01/18/17 01/18/17 01/18/17 07:00 15:00 23:00 07:00 15:00 23:00 Intake Total 464 ml 336 ml Output Total 0 ml 300 ml Balance 464 ml 36 ml Intake Oral 60 ml IV Total 404 ml 336 ml Output Urine Total 0 ml 300 ml Bladder Scan Volume Amount 159 ml 220 ml 37 ml # Voids 3 # Bowel Movements 1 2 1 Result Diagram: 01/18/17 0510 01/18/17 0510 Objective Remarks GENERAL: This is a well-nourished, well-developed patient, who sounds congested CARDIOVASCULAR: Regular rate and rhythm without murmurs, gallops, or rubs. RESPIRATORY: Clear to auscultation. Breath sounds equal bilaterally. No wheezes , rales, or rhonchi. GASTROINTESTINAL: Abdomen soft, non-tender, nondistended. Normal active bowel sounds MUSCULOSKELETAL: Extremities without clubbing, cyanosis, or edema. NEURO: Alert & Oriented x4 to person, place, time, situation. Moves all ext x4 Procedures 12/03: IM Reymundo fixation right lower extremity A/P Problem List: (1) Catatonia ICD Code: F06.1 Status: Resolved Plan: Resolved Responded to Ativan provocation and decrease in dilantin levels (2) DM (diabetes mellitus) type I uncontrolled with renal manifestation ICD Code: E10.29 Status: Chronic Plan: DKA improved/resolved. Metabolic acidosis is resolved Continue with Lantus (Levemir allergy) Hemoglobin A1c 10.8 (3) Seizure ICD Code: R56.9 Status: Acute Plan: Patient continues with Trileptal, Dilantin toxicity noted but improved (4) Closed fracture of right tibia and fibula ICD Code: S82.201A Status: Acute Plan: Continue 50% wb status for now, patient on Tums to improve fracture healing, continue vitamin D s/p im reymundo of comminuted closed fracture discussed w/ dr mathias (5) Acute kidney injury superimposed on chronic kidney disease ICD Code: N17.9 Status: Acute Plan: Renal ultrasound shows medical renal disease Continue IV hydration Renal following. Evidence of asymptomatic pyuria which requires no treatment Follow-up electrolytes (6) Anorexia ICD Code: R63.0 Status: Acute Plan: Appears to have improved this patient is eating quite a bit now (feeding tube never placed, nutritional assistance appreciated). 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
[2017-01-18 12:00] VITALS: BP 162/85; PULSE 96; RESP 16; TEMP 98.4; O2SAT 97
[2017-01-18] MEDS ORDERED: POTASSIUM PHOSPHATE MONOBASIC 500 MG TAB PO ONE (12:00)
[2017-01-18] MEDS: HYDROXYCHLOROQUINE SULFATE 200 MG TAB PO SCH (12:31)
[2017-01-18] MEDS: SODIUM CHLOR 0.45% 1000 ML INJ 1,000 ML IV SCH (12:31)
[2017-01-18 16:00] VITALS: BP 136/83; PULSE 100; RESP 16; TEMP 99; O2SAT 97
[2017-01-18 20:00] VITALS: BP 133/91; PULSE 102; RESP 16; TEMP 98.4; O2SAT 95
[2017-01-18] MEDS: methylPREDNISolone SO SUCC INJ 500 MG in DEXTROSE 5% IN WATER 100ML INJ 100 ML IV SCH ×2 (21:00)
[2017-01-18] MEDS: MIRTAZAPINE ODT 15 MG TAB PO SCH (21:24)
[2017-01-18 21:40] VITALS: O2SAT 95
[2017-01-19] VITALS (7 sets, daily range): BP systolic 115–191; BP diastolic 80–113; PULSE 84–110; RESP 16–20; TEMP 97.8–98.8; O2SAT 94–100
[2017-01-19] MEDS: INSULIN ASPART SUPPLEMENTAL SCALE SQ SCH ×4 (06:26→20:28)
[2017-01-19] MEDS: SODIUM CHLOR 0.45% 1000 ML INJ 1,000 ML IV SCH ×2 (08:00→20:33)
[2017-01-19] MEDS: DOCUSATE SODIUM 50 MG/SENNA 8.6 MG TAB PO SCH ×2 (09:00→20:33)
[2017-01-19] MEDS: ENOXAPARIN SODIUM 30 MG/0.3 ML SYRINGE SQ SCH (09:00)
[2017-01-19] MEDS: PANTOPRAZOLE SOD 40 MG DELAYED RELEASE TAB PO SCH (09:29)
[2017-01-19] MEDS: HYDROXYCHLOROQUINE SULFATE 200 MG TAB PO SCH (09:29)
[2017-01-19] MEDS: MULTIVITAMINS/MINERALS THERAPEUTIC TAB PO SCH (09:29)
[2017-01-19] MEDS: CALCIUM CARBONATE 500 MG CHEWABLE TAB CHEW SCH ×2 (09:30→20:26)
[2017-01-19] MEDS: ATORVASTATIN 40 MG TAB PO SCH (09:30)
[2017-01-19] MEDS: MEGESTROL ACETATE SUSP 400 MG/10 ML CUP PO SCH ×2 (09:30→20:26)
[2017-01-19] MEDS: OXcarbazepine 300 MG TAB PO SCH ×2 (09:30→21:25)
[2017-01-19] MEDS: guaiFENesin E.R. 600 MG TAB PO SCH ×2 (09:30→20:27)
[2017-01-19] MEDS: METOPROLOL TARTRATE 25 MG TAB PO SCH ×2 (09:30→20:27)
[2017-01-19 10:39] LABS: PROTHROMBIN TIME - PATIENT 10.6 SEC (9.8-11.6)
[2017-01-19 10:42] LABS: POTASSIUM 3.7 MEQ/L (3.5-5.1)
[2017-01-19 10:46] LABS: BICARBONATE 27.3 MEQ/L (21.0-32.0)
--- NOTE | 2017-01-19 11:08 | HHI.PR ---
Subjective Remarks Patient seen and evaluated today in follow-up for acute renal failure on chronic kidney disease. Patient with decreased urine output overnight. Care plan discussed with patient, Jadiel SEALS and with allergy team. Patient started on steroids overnight. Patient appears to have become hypoglycemic overnight and has lost her IV access. Objective Vitals Vital Signs Date Time Temp Pulse Resp B/P Pulse Ox O2 Delivery O2 Flow Rate FiO2 01/19/17 08:00 98.5 110 19 115/81 100 01/19/17 00:59 98.4 98 20 149/87 94 01/18/17 21:40 95 Nasal Cannula 2.00 01/18/17 20:00 98.4 102 16 133/91 95 01/18/17 16:00 99.0 100 16 136/83 97 01/18/17 12:00 98.4 96 16 162/85 97 I/O 01/18/17 01/18/17 01/18/17 01/19/17 01/19/17 01/19/17 06:59 14:59 22:59 06:59 14:59 22:59 Intake Total 590 ml 420 ml Balance 590 ml 420 ml Intake Oral 480 ml 420 ml IV Total 110 ml 0 ml Bladder Scan Volume Amount 145 ml 279 ml 169 ml 122 ml # Voids 3 0 2 # Bowel Movements 1 0 1 1 Result Diagram: 01/18/17 0510 01/19/17 1005 Objective Remarks GENERAL: This is a well-nourished, well-developed patient, pale CARDIOVASCULAR: Regular rate and rhythm without murmurs, gallops, or rubs. RESPIRATORY: Clear to auscultation. Breath sounds equal bilaterally. No wheezes , rales, or rhonchi. GASTROINTESTINAL: Abdomen soft, non-tender, nondistended. Normal active bowel sounds MUSCULOSKELETAL: Extremities without clubbing, cyanosis, or edema. NEURO: Alert & Oriented x4 to person, place, time, situation. Moves all ext x4 Procedures 12/03: IM Reymundo fixation right lower extremity A/P Problem List: (1) DM (diabetes mellitus) type I uncontrolled with renal manifestation ICD Code: E10.29 Status: Chronic Plan: Lantus has been held due to hypoglycemia overnight Hem hypoglycemia likely due to worsening renal function Hemoglobin A1c is 10.8 (2) Seizure ICD Code: R56.9 Status: Acute Plan: Patient continues with Trileptal, Dilantin toxicity resolved (3) Closed fracture of right tibia and fibula ICD Code: S82.201A Status: Acute Plan: Continue 50% wb status for now, patient on Tums to improve fracture healing, continue vitamin D s/p im reymundo of comminuted closed fracture discussed w/ dr mathias (4) Acute kidney injury superimposed on chronic kidney disease ICD Code: N17.9 Status: Acute Plan: Renal ultrasound shows medical renal disease Continue IV hydration with IV access obtained, patient will need a central line Renal following. 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
--- NOTE | 2017-01-19 11:14 | PD.RAD ---
Post Procedure Progress Note Pre Procedure Diagnosis: (1) Acute kidney injury superimposed on chronic kidney disease Post Procedure Diagnosis: (1) Acute kidney injury superimposed on chronic kidney disease Procedure Date: Jan 19, 2017 Supervising Radiologist: Jim Aly Proceduralist/Assist: RT Sarkis(R)() Anesthesia: Local Plan of Activity Patient to Unit: Nursing Unit Patient Condition: Fair See PACS Report for procedural detail/treatment Central Venous Access Device Procedure 1 Right Subclavian Central Line Placement triple lumen Georgian: 7 Jim Aly MD Jan 19, 2017 11:14
[2017-01-19] MEDS ORDERED: SODIUM CHLORIDE 0.9% FLUSH 10 ML FLUSH IVF PRN (11:15)
[2017-01-19] MEDS: ACETAMINOPHEN/HYDROcodone 325 MG/5 MG TAB PO PRN ×2 (12:28→20:26)
[2017-01-19 12:40] LABS: RHEUMATOID FACTOR TRIGGER LESS THAN 10.0 IU/ML (0.0-14.9)
[2017-01-19 13:30] LABS: HEPATITIS B SURFACE ANTIBODY GREATER THAN 150 mIU/mL
--- NOTE | 2017-01-19 13:31 | HHI.NPPN ---
Subjective General Problems: Anemia Renal Failure: Chronic, Acute Interval History She lost IV access overnight. A central line was placed, labs obtained. Renal function is worse today. Renal biopsy postponed by the radiologist until tomorrow. She has no complaints today. (Eva Marcelo) Review of Systems General Constitutional: Fatigue General Remarks she has no complaints (Eva Marcelo) Objective Data Data 01/18/17 01/19/17 19:00 07:00 Intake Total 590 ml 420 ml Balance 590 ml 420 ml Intake Oral 480 ml 420 ml IV Total 110 ml 0 ml Bladder Scan Volume Amount 145 ml 169 ml 279 ml 122 ml # Voids 0 2 # Bowel Movements 0 1 Vital Signs Date Time Temp Pulse Resp B/P Pulse Ox O2 Delivery O2 Flow Rate FiO2 01/19/17 08:00 98.5 110 19 115/81 100 01/19/17 00:59 98.4 98 20 149/87 94 01/18/17 21:40 95 Nasal Cannula 2.00 01/18/17 20:00 98.4 102 16 133/91 95 01/18/17 16:00 99.0 100 16 136/83 97 (Eva Marcelo) -: 01/18/17 0510 01/19/17 1005 Imaging Last Impressions Chest X-Ray 01/13/17 0000 Signed Impressions: Service Date/Time: January 15:34 - CONCLUSION: Underinflation with atelectasis at the lung bases. No other acute finding is appreciated. Jim Michaels MD Brain MRI 01/11/17 0000 Signed Impressions: Service Date/Time: Wednesday, January 11, 2017 15:04 - CONCLUSION: 1. Stable focus of abnormal signal involving the left centrum semiovale likely related to prior lacunar infarct. No acute intracranial anatomy. Rafiq Nielson MD Head CT 01/10/17 0917 Signed Impressions: Service Date/Time: Tuesday, January 10, 2017 09:49 - CONCLUSION: 1. Interval development of left sided mastoiditis since 11/22/2016. Clinical correlation is recommended. 2. Otherwise, no acute intracranial abnormality. Eriberto Madison MD Abdomen/Pelvis CT 12/25/16 1100 Signed Impressions: Service Date/Time: Sunday, December 25, 2016 12:00 - CONCLUSION: Interval development of anasarca, small bilateral effusions and small to moderate ascites. No significant ileus, hydronephrosis, mass or lymphadenopathy. Status post cholecystectomy. Bobby Martins MD Abdomen X-Ray 12/25/16 0857 Signed Impressions: Service Date/Time: Sunday, December 25, 2016 09:27 - CONCLUSION: No acute disease. Bobby Martins MD Upper Extremity Ultrasound 12/24/16 0000 Signed Impressions: Service Date/Time: Saturday, December 24, 2016 11:58 - CONCLUSION: Normal examination. rT Luna MD Renal Ultrasound 12/24/16 0000 Signed Impressions: Service Date/Time: Saturday, December 24, 2016 11:53 - CONCLUSION: 1. Increased echogenicity of the renal cortex which can be seen with underlying medical renal disease. 2. No findings to indicate renal obstruction. 3. Small bilateral effusions and a trace amount of ascites within the abdomen. Umesh Farah MD Tibia/Fibula X-Ray 12/03/16 0000 Signed Impressions: Service Date/Time: Saturday, December 03, 2016 15:09 - CONCLUSION: Excellent alignment of the patient's tibial fracture post rodding. Patient has a minimally displaced fibular fracture as well. Umesh Farah MD Ankle X-Ray 12/02/16 0000 Signed Impressions: Service Date/Time: November 18:16 - CONCLUSION: 1. The ankle mortise is intact. 2. Distal tibial and fibular fractures again noted. Please see right leg report for further details. Javier Marino MD (Eva Marcelo) Physical Exam General Appearance: Well Developed, No Acute Distress, Comfortable (Eva Marcelo POLYMERIZATION ENGINEER) Eyes Eye Exam: Pupils Equal (Eva MarceloP) Throat Throat Exam: Oral Mucosa Tower & Moist (Eva MarceloP) Neck Neck Exam: Neck Supple (Eva Marcelo POLYMERIZATION ENGINEER) Pulmonary Resp Exam: Clear Bilaterally, Breath Sounds Equal, No Distress, Decreased Bases (Eva Marcelo POLYMERIZATION ENGINEER) Cardiology CV Exam: Regular, Normal Sinus Rhythm (Eva Marcelo) Gastrointestinal/Abdomen GI Exam: Soft, Non-Tender, Bowel Sounds Present (Eva Marcelo) Musculoskeletal MS Exam: Joints Intact, Normal Tone, Good Strength (Eva Marcelo) Integumentary Skin Exam: Clear, Warm, Dry, Intact (Eva Marcelo) Extremeties Extremities Exam: No Edema, Pedal Pulses Palpable (Eva Marcelo) Neurologic Neuro Exam: Alert, Awake, Oriented, Speech Clear, Moving All Extremities ( Eav Marcelo) Psychiatric Psych Exam: Appropriate Responses (Eva Marcelo) PUD Prophylasis PUD Prophylaxis: Protonix (Eva Marcelo) Assessment/Plan Discussed Condition With: Patient Assessment Summary: REGAN/Acute Renal Failure, Anemia of CKD, Hypertension, Diabetes Mellitus Problem List: (1) Acute kidney failure Plan: Renal function declining, she has become oliguric REGAN: possible ATN due to renal hypoperfusion Allergic interstitial nephritis is another possibility, Solumedrol has been started empirically lupus relapse, lupus nephritis is also on the differential, Plaquenil has been started serologies including KARLEY, ANCA, and hepatitis profile with complement levels has been ordered, results pending IVF is infusing follow labs, urine output, meade has been placed renal biopsy scheduled for tomorrow D/W Dr. Aly, radiologist, who felt the biopsy is high risk for complications and therefore he prefers it be done at [facility] where equipment and specialists are available if needed. NPO order placed for midnight; the radiologist at the [facility] hospital is aware and she is on the schedule for procedure in AM in the meantime, minimize exposure to nephrotoxins, and avoid all non essential medications medications have been reviewed repeat renal panel in AM she may require dialysis support in upcoming days if renal function further declined, D/W patient (2) CKD (chronic kidney disease), stage III Plan: Due to diabetic nephropathy monitor renal function her baseline creatinine is 1.3-1.7 (3) UTI (urinary tract infection) Plan: culture reviewed, she is asymptomatic, not on antibiotics (4) DKA (diabetic ketoacidoses) Plan: resolved, monitor for recurrence (5) Metabolic acidosis Plan: Resolved. monitor (Eav Marcelo) Plan patient was seen and examined. Discussed with Dr. Lamas. Transfer to [facility]. Renal biopsy. On bolus steroid. Discussed at length with the patient. (Valdez Patterson MD) Problem Qualifiers (1) DKA (diabetic ketoacidoses): Eva Marcelo Jan 19, 2017 13:31 Valdez Patterson MD Jan 20, 2017 09:13
[2017-01-19] MEDS: methylPREDNISolone SO SUCC INJ 500 MG in DEXTROSE 5% IN WATER 100ML INJ 100 ML IV SCH ×2 (21:25)
[2017-01-19] MEDS: MIRTAZAPINE ODT 15 MG TAB PO SCH (21:25)
[2017-01-20] VITALS (7 sets, daily range): BP systolic 111–150; BP diastolic 59–85; PULSE 88–104; RESP 16–18; TEMP 97.4–98.6; O2SAT 93–99
[2017-01-20] MEDS: INSULIN ASPART SUPPLEMENTAL SCALE SQ SCH ×3 (06:37→22:12)
[2017-01-20 07:30] LABS: BICARBONATE 23.6 MEQ/L (21.0-32.0); POTASSIUM 4.2 MEQ/L (3.5-5.1)
[2017-01-20] MEDS: ATORVASTATIN 40 MG TAB PO SCH (09:00)
[2017-01-20] MEDS: MULTIVITAMINS/MINERALS THERAPEUTIC TAB PO SCH (09:00)
[2017-01-20] MEDS: PANTOPRAZOLE SOD 40 MG DELAYED RELEASE TAB PO SCH (09:00)
[2017-01-20] MEDS: MEGESTROL ACETATE SUSP 400 MG/10 ML CUP PO SCH ×2 (09:00→22:09)
[2017-01-20] MEDS: ENOXAPARIN SODIUM 30 MG/0.3 ML SYRINGE SQ SCH (09:00)
[2017-01-20] MEDS: guaiFENesin E.R. 600 MG TAB PO SCH ×2 (09:00→22:08)
[2017-01-20] MEDS: DOCUSATE SODIUM 50 MG/SENNA 8.6 MG TAB PO SCH ×2 (09:00→22:09)
[2017-01-20] MEDS: CALCIUM CARBONATE 500 MG CHEWABLE TAB CHEW SCH ×2 (09:00→22:09)
--- NOTE | 2017-01-20 10:10 | HHI.NPPN ---
Subjective General Problems: Anemia Renal Failure: Chronic, Acute Interval History She was transferred to the main hospital. Creatinine is worse today. NPO for biopsy today. Urine output appears to have improved. (Eva Marcelo) Review of Systems General Constitutional: Fatigue General Remarks (Eva Marcelo) Musculoskeletal MS Remarks generalized muscle aches (Eva Marcelo) Objective Data Data 01/19/17 01/20/17 19:00 07:00 Intake Total 90 ml 799 ml Output Total 300 ml 250 ml Balance -210 ml 549 ml Intake Oral 90 ml 240 ml IV Total 559 ml Output Urine Total 300 ml 250 ml # Bowel Movements 2 0 Vital Signs Date Time Temp Pulse Resp B/P Pulse Ox O2 Delivery O2 Flow Rate FiO2 01/20/17 08:00 98.2 102 17 134/76 95 01/20/17 04:00 97.8 104 16 144/85 93 01/20/17 00:00 97.7 88 16 111/59 93 01/19/17 20:05 98.4 101 16 155/91 95 01/19/17 16:00 98.6 94 19 167/94 99 01/19/17 13:00 98.8 91 18 144/80 96 01/19/17 12:00 97.8 84 18 185/113 98 01/19/17 11:30 97.9 97 18 191/112 98 (Eva Marcelo) -: 01/18/17 0510 01/20/17 0630 Imaging Last Impressions Chest X-Ray 01/13/17 0000 Signed Impressions: Service Date/Time: January 15:34 - CONCLUSION: Underinflation with atelectasis at the lung bases. No other acute finding is appreciated. Jim Michaels MD Brain MRI 01/11/17 0000 Signed Impressions: Service Date/Time: Wednesday, January 11, 2017 15:04 - CONCLUSION: 1. Stable focus of abnormal signal involving the left centrum semiovale likely related to prior lacunar infarct. No acute intracranial anatomy. Rafiq Nielson MD Head CT 01/10/17 0917 Signed Impressions: Service Date/Time: Tuesday, January 10, 2017 09:49 - CONCLUSION: 1. Interval development of left sided mastoiditis since 11/22/2016. Clinical correlation is recommended. 2. Otherwise, no acute intracranial abnormality. Eriberto Madison MD Abdomen/Pelvis CT 12/25/16 1100 Signed Impressions: Service Date/Time: Sunday, December 25, 2016 12:00 - CONCLUSION: Interval development of anasarca, small bilateral effusions and small to moderate ascites. No significant ileus, hydronephrosis, mass or lymphadenopathy. Status post cholecystectomy. Bobby Martins MD Abdomen X-Ray 12/25/16 0857 Signed Impressions: Service Date/Time: Sunday, December 25, 2016 09:27 - CONCLUSION: No acute disease. Bobby Martins MD Upper Extremity Ultrasound 12/24/16 0000 Signed Impressions: Service Date/Time: Saturday, December 24, 2016 11:58 - CONCLUSION: Normal examination. Tr Luna MD Renal Ultrasound 12/24/16 0000 Signed Impressions: Service Date/Time: Saturday, December 24, 2016 11:53 - CONCLUSION: 1. Increased echogenicity of the renal cortex which can be seen with underlying medical renal disease. 2. No findings to indicate renal obstruction. 3. Small bilateral effusions and a trace amount of ascites within the abdomen. Umesh Farah MD Tibia/Fibula X-Ray 12/03/16 0000 Signed Impressions: Service Date/Time: Saturday, December 03, 2016 15:09 - CONCLUSION: Excellent alignment of the patient's tibial fracture post rodding. Patient has a minimally displaced fibular fracture as well. Umesh Farah MD Ankle X-Ray 12/02/16 0000 Signed Impressions: Service Date/Time: November 18:16 - CONCLUSION: 1. The ankle mortise is intact. 2. Distal tibial and fibular fractures again noted. Please see right leg report for further details. Javier Marino MD Tubes & Lines: Maurer Tubes & Lines Comment TLC right SC (Eva Marcelo) Physical Exam General Appearance: Well Developed, Well Nourished, No Acute Distress, Comfortable ( Eva Marcelo) Eyes Eye Exam: Pupils Equal (Eva Marcelo) Throat Throat Exam: Oral Mucosa Kiron & Moist (Eva MarceloP) Neck Neck Exam: Neck Supple (Eva Marcelo CHILD WELFARE CASEWORKER) Pulmonary Resp Exam: Clear Bilaterally, Breath Sounds Equal, No Distress, Decreased Bases (Eva Marcelo CHILD WELFARE CASEWORKER) Cardiology CV Exam: Regular, Normal Sinus Rhythm (Eva Marcelo CHILD WELFARE CASEWORKER) Gastrointestinal/Abdomen GI Exam: Soft, Non-Tender, Bowel Sounds Present (Eva Marcelo CHILD WELFARE CASEWORKER) Musculoskeletal MS Exam: Joints Intact, Normal Tone, Good Strength (Eva Marcelo CHILD WELFARE CASEWORKER) Integumentary Skin Exam: Clear, Warm, Dry, Intact (Eva Marcelo CHILD WELFARE CASEWORKER) Extremeties Extremities Exam: No Edema, Pedal Pulses Palpable (Eva Marcelo CHILD WELFARE CASEWORKER) Neurologic Neuro Exam: Alert, Awake, Oriented, Speech Clear, Moving All Extremities ( Eva Marcelo CHILD WELFARE CASEWORKER) Psychiatric Psych Exam: Appropriate Responses (Eva Marcelo) PUD Prophylasis PUD Prophylaxis: Protonix (Eva Marcelo) Assessment/Plan Discussed Condition With: Patient Assessment Summary: REGAN/Acute Renal Failure, Anemia of CKD, Hypertension, Diabetes Mellitus Problem List: (1) Acute kidney failure Plan: Renal function declining, etiology is uncertain unlikely lupus nephritis as her complement levels are not low Allergic interstitial nephritis is on the differential, ordered 3 doses of Solumedrol empirically Also possible ATN due to renal hypoperfusion serologies including KARLEY, ANCA, and hepatitis profile has been ordered, results pending IVF still infusing, can continue follow labs, urine output, appears to be making more urine renal biopsy scheduled for today, procedure time unknown D/W Dr. Aly, radiologist, who felt the biopsy is high risk for complications and therefore he prefers it be done at main where equipment and specialists are available if needed. NPO currently in the meantime, minimize exposure to nephrotoxins, and avoid all non essential medications medications have been reviewed repeat renal panel in AM CBC ordered pre-biopsy, repeat in AM she may require dialysis support in upcoming days if renal function further declined, D/W patient (2) CKD (chronic kidney disease), stage III Plan: Due to diabetic nephropathy monitor renal function her baseline creatinine is 1.3-1.7 (3) UTI (urinary tract infection) Plan: culture reviewed, she is asymptomatic, not on antibiotics (4) DKA (diabetic ketoacidoses) Plan: resolved, monitor for recurrence (5) Metabolic acidosis Plan: Resolved. monitor (Eva Marcelo) Plan patient was seen and examined, agree with above assessment and plan. On empiric steroids. Biopsy scheduled. C3 is not low, this is not suggestive of lupus nephritis. (Valdez Patterson MD) Problem Qualifiers (1) DKA (diabetic ketoacidoses): Eva Marcelo Jan 20, 2017 10:10 Valdez Patterson MD Jan 21, 2017 15:24
[2017-01-20] MEDS: OXcarbazepine 300 MG TAB PO SCH ×2 (10:37→22:11)
[2017-01-20] MEDS: HYDROXYCHLOROQUINE SULFATE 200 MG TAB PO SCH (10:37)
[2017-01-20] MEDS: ERGOCALCIFEROL (VIT D2) 50,000 UNIT CAP PO SCH (10:37)
[2017-01-20] MEDS: SODIUM CHLORIDE 0.9% FLUSH 10 ML FLUSH IVF SCH (10:37)
[2017-01-20] MEDS: METOPROLOL TARTRATE 25 MG TAB PO SCH ×2 (10:37→22:08)
--- NOTE | 2017-01-20 10:59 | PD.ID.CON ---
History of Present Illness Service ID Consult Requested By Dr Lamas Reason for Consult UTI Primary Care Physician Andrea Cardoso Diagnoses: History of Present Illness 46 yo F with multiple med prob including diabetes, lupus and CKD stage III presented sp fall 6 wks ago and was diagnosed with right closed distal tibia shaft comminuted fracture On Dec 03, 2016 she underwernt right tibia intramedullary yuri fixation by Dr Umanzor She was noted to have oliguria and worsening GFR in the last 5 days and was transferred to [facility] for renal bx Pt denies any fever, disuria or incontinennce She had UA and urine culture was done Urine clx with repeatedly growing VRE Pt has no luekocytosis and only once was noted to have tmp 99.9 3 days ago She now has meade for ? urinary retention; though her scans readings were mostly wnl Pt also was staerted on high dose pulse sterroid tx Review of Systems Except as stated in HPI: all other systems reviewed are Neg Past Family Social History Allergies: Coded Allergies: Aspirin (Verified Allergy, Severe, 12/02/16) RASH Penicillin (Verified Allergy, Severe, 12/02/16) Sulfa (Verified Allergy, Severe, 12/02/16) RASH Banana (Verified Allergy, Intermediate, Hives, 12/02/16) Adhesives (Verified Allergy, Unknown, 12/02/16) Macrobid (Unverified Allergy, Unknown, 12/02/16) Levemir (Verified Adverse Reaction, Severe, Sweats, funny feeling, mood swings, daze, 12/04/16) *MDRO Multi-Drug Resistant Organism (Unverified Adverse Reaction, Unknown , MRSA, 01/19/17) MRSA 2013 MRSA PCR (nares) POSITIVE - 01/22/16, 11/09/16, 01/01/17 VRE (urine) 01/13/17, 01/17/17 Past Medical History Insulin-dependent diabetes and chronic kidney disease stage III follows [address] Dr. 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 Social History No Tobacco. No ETOH. No Illicit Drugs. Physical Exam Vital Signs Vital Signs Date Time Temp Pulse Resp B/P Pulse Ox O2 Delivery O2 Flow Rate FiO2 8/10/17 08:00 98.2 102 17 134/76 95 01/20/17 04:00 97.8 104 16 144/85 93 01/20/17 00:00 97.7 88 16 111/59 93 01/19/17 20:05 98.4 101 16 155/91 95 01/19/17 16:00 98.6 94 19 167/94 99 01/19/17 13:00 98.8 91 18 144/80 96 01/19/17 12:00 97.8 84 18 185/113 98 01/19/17 11:30 97.9 97 18 191/112 98 Physical Exam CONSTITUTIONAL/GENERAL: This is an adequately nourished patient, in no apparent distress. TUBES/LINES/DRAINS: SKIN: No jaundice, rashes, or lesions. Ecchymoses on upper extremities. No wounds seen anteriorly. Skin temperature appropriate. Not diaphoretic. HEAD: Atraumatic. Normocephalic. EYES: Pupils equal and round and reactive. Extraocular motions intact. No scleral icterus. No injection or drainage. Fundi not examined. ENT: Hearing grossly normal. Nose without bleeding or purulent drainage. Throat without visible erythema, exudates, masses, or lesions. NECK: Trachea midline. Supple, nontender. CARDIOVASCULAR: Regular rate and rhythm without murmurs, gallops, or rubs. No JVD. Peripheral pulses symmetric. RESPIRATORY/CHEST: Symmetric, unlabored respirations. Clear to auscultation. Breath sounds equal bilaterally. No wheezes, rales, or rhonchi. GASTROINTESTINAL: Abdomen soft, non-tender, nondistended. No hepato-splenomegaly , or palpable masses. No guarding. Bowel sounds present. GENITOURINARY: Without palpable bladder distension. Meade catheter in place with clear yellow urine MUSCULOSKELETAL: Extremities without clubbing, cyanosis, or edema. No joint tenderness or effusion noted. No calf tenderness. No mottling or clubbing. Well healed inciition on RLE + loss on slkin appendages sp Lt 5 th MT ray amputation - well healed LYMPHATICS: No palpable cervical or supraclavicular adenopathy. NEUROLOGICAL: Awake and alert. Motor and sensory grossly within normal limits. Follows commands.Clear speech Moves all extremities. PSYCHIATRIC: No obvious anxiety/depression. no apparent hallucinations or other psychotic thought process. Laboratory Laboratory Tests Test 01/20/17 06:30 Sodium Level 139 Potassium Level 4.2 Chloride Level 103 Carbon Dioxide Level 23.6 Anion Gap 12 Blood Urea Nitrogen 31 Creatinine 3.91 Estimat Glomerular Filtration 15 Rate Random Glucose 248 Calcium Level 7.9 Phosphorus Level 3.7 Albumin 2.0 Date/Time Procedure Status Source Growth 01/17/17 14:15 Urine Culture - Final Complete Urine Clean Catch Enterococcus Faecium Vre Result Diagram: 01/18/17 0510 01/20/17 0630 Imaging Last Impressions Chest X-Ray 01/13/17 0000 Signed Impressions: Service Date/Time: January 15:34 - CONCLUSION: Underinflation with atelectasis at the lung bases. No other acute finding is appreciated. Jim Michaels MD Brain MRI 01/11/17 0000 Signed Impressions: Service Date/Time: Wednesday, January 11, 2017 15:04 - CONCLUSION: 1. Stable focus of abnormal signal involving the left centrum semiovale likely related to prior lacunar infarct. No acute intracranial anatomy. Rafiq Nielson MD Head CT 01/10/17 0917 Signed Impressions: Service Date/Time: Tuesday, January 10, 2017 09:49 - CONCLUSION: 1. Interval development of left sided mastoiditis since 11/22/2016. Clinical correlation is recommended. 2. Otherwise, no acute intracranial abnormality. Eriberto Madison MD Abdomen/Pelvis CT 12/25/16 1100 Signed Impressions: Service Date/Time: Sunday, December 25, 2016 12:00 - CONCLUSION: Interval development of anasarca, small bilateral effusions and small to moderate ascites. No significant ileus, hydronephrosis, mass or lymphadenopathy. Status post cholecystectomy. Bobby Martins MD Abdomen X-Ray 12/25/16 0857 Signed Impressions: Service Date/Time: Sunday, December 25, 2016 09:27 - CONCLUSION: No acute disease. Bobby Martins MD Upper Extremity Ultrasound 12/24/16 0000 Signed Impressions: Service Date/Time: Saturday, December 24, 2016 11:58 - CONCLUSION: Normal examination. Tr Luna MD Renal Ultrasound 12/24/16 0000 Signed Impressions: Service Date/Time: Saturday, December 24, 2016 11:53 - CONCLUSION: 1. Increased echogenicity of the renal cortex which can be seen with underlying medical renal disease. 2. No findings to indicate renal obstruction. 3. Small bilateral effusions and a trace amount of ascites within the abdomen. Umesh Farah MD Tibia/Fibula X-Ray 12/03/16 0000 Signed Impressions: Service Date/Time: Saturday, December 03, 2016 15:09 - CONCLUSION: Excellent alignment of the patient's tibial fracture post rodding. Patient has a minimally displaced fibular fracture as well. Umesh Farah MD Ankle X-Ray 12/02/16 0000 Signed Impressions: Service Date/Time: November 18:16 - CONCLUSION: 1. The ankle mortise is intact. 2. Distal tibial and fibular fractures again noted. Please see right leg report for further details. Javier Marino MD Assessment and Plan Assessment and Plan ARF/ CKD in pt with DM, lupus sp urinary retention - s/p meade Asyptomatic VRE bacteriuria REC's - no indications to Rx asymptomatic bacteriuria in this pt (renal bx is not indication for abx profilaxis) - I will treat the pt VRE bacteriuria if she shows signs of infx Discussed Condition With Elizabeth Whitehead MD Jan 20, 2017 10:59
[2017-01-20 11:11] LABS: AUTOMATED NEUTROPHIL # 5.7 TH/MM3 (1.8-7.7); BASOPHIL % 0.2 % (0.0-2.0); HEMATOCRIT 24.8 % (35.0-46.0); HEMO FLAGS DIFF FINAL; LYMPH % 13.5 % (9.0-44.0); LYMPHOCYTE # 0.9 TH/MM3 (1.0-4.8); MEAN CELL VOLUME 92.1 FL (80.0-100.0); MEAN CORPUSCULAR HEMOGLOBIN 31.1 PG (27.0-34.0); MEAN CORPUSCULAR HGB CONC 33.7 % (32.0-36.0); MONO % 1.6 % (0.0-8.0); NEUT % 84.7 % (16.0-70.0); PLATELET COUNT 279 TH/MM3 (150-450); RED CELL DISTRIBUTION WIDTH 15.7 % (11.6-17.2); WHITE BLOOD COUNT 6.7 TH/MM3 (4.0-11.0)
--- NOTE | 2017-01-20 11:52 | HHI.PR ---
Subjective Remarks Follow-up acute kidney injury. Patient has no complaints no voiding issues. Agrees with the renal biopsy. Discussed with RN Objective Vitals Vital Signs Date Time Temp Pulse Resp B/P Pulse Ox O2 Delivery O2 Flow Rate FiO2 01/20/17 11:24 95 21 01/20/17 08:00 98.2 102 17 134/76 95 01/20/17 04:00 97.8 104 16 144/85 93 01/20/17 00:00 97.7 88 16 111/59 93 01/19/17 20:05 98.4 101 16 155/91 95 01/19/17 16:00 98.6 94 19 167/94 99 01/19/17 13:00 98.8 91 18 144/80 96 01/19/17 12:00 97.8 84 18 185/113 98 I/O 01/19/17 01/19/17 01/19/17 01/20/17 01/20/17 01/20/17 07:00 15:00 23:00 07:00 15:00 23:00 Intake Total 420 ml 90 ml 240 ml 559 ml Output Total 300 ml 150 ml 100 ml Balance 420 ml -210 ml 90 ml 459 ml Intake Oral 420 ml 90 ml 240 ml 0 ml IV Total 0 ml 559 ml Output Urine Total 300 ml 150 ml 100 ml Bladder Scan Volume Amount 169 ml 122 ml # Voids 2 # Bowel Movements 1 2 0 0 Result Diagram: 01/20/17 1045 01/20/17 0630 Imaging Last Impressions Chest X-Ray 01/13/17 0000 Signed Impressions: Service Date/Time: January 15:34 - CONCLUSION: Underinflation with atelectasis at the lung bases. No other acute finding is appreciated. Jim Michaels MD Brain MRI 01/11/17 0000 Signed Impressions: Service Date/Time: Wednesday, January 11, 2017 15:04 - CONCLUSION: 1. Stable focus of abnormal signal involving the left centrum semiovale likely related to prior lacunar infarct. No acute intracranial anatomy. Rafiq Nielson MD Head CT 01/10/17 0917 Signed Impressions: Service Date/Time: Tuesday, January 10, 2017 09:49 - CONCLUSION: 1. Interval development of left sided mastoiditis since 11/22/2016. Clinical correlation is recommended. 2. Otherwise, no acute intracranial abnormality. Eriberto Madison MD Abdomen/Pelvis CT 12/25/16 1100 Signed Impressions: Service Date/Time: Sunday, December 25, 2016 12:00 - CONCLUSION: Interval development of anasarca, small bilateral effusions and small to moderate ascites. No significant ileus, hydronephrosis, mass or lymphadenopathy. Status post cholecystectomy. Bobby Martins MD Abdomen X-Ray 12/25/16 0857 Signed Impressions: Service Date/Time: Sunday, December 25, 2016 09:27 - CONCLUSION: No acute disease. Bobby Martins MD Upper Extremity Ultrasound 12/24/16 0000 Signed Impressions: Service Date/Time: Saturday, December 24, 2016 11:58 - CONCLUSION: Normal examination. Tr Luna MD Renal Ultrasound 12/24/16 0000 Signed Impressions: Service Date/Time: Saturday, December 24, 2016 11:53 - CONCLUSION: 1. Increased echogenicity of the renal cortex which can be seen with underlying medical renal disease. 2. No findings to indicate renal obstruction. 3. Small bilateral effusions and a trace amount of ascites within the abdomen. Umesh Farah MD Tibia/Fibula X-Ray 12/03/16 0000 Signed Impressions: Service Date/Time: Saturday, December 03, 2016 15:09 - CONCLUSION: Excellent alignment of the patient's tibial fracture post rodding. Patient has a minimally displaced fibular fracture as well. Umesh Farah MD Ankle X-Ray 12/02/16 0000 Signed Impressions: Service Date/Time: November 18:16 - CONCLUSION: 1. The ankle mortise is intact. 2. Distal tibial and fibular fractures again noted. Please see right leg report for further details. Javier Marino MD Objective Remarks GENERAL: Well-developed, well-nourished in no distress. Cushingoid appearance. SKIN: Warm and dry. EYES: Pupils equal and round. No scleral icterus. No injection or drainage. ENT: No nasal bleeding or discharge. Mucous membranes pink and moist. NECK: Trachea midline. No JVD. CARDIOVASCULAR: Regular rate and rhythm. RESPIRATORY: No accessory muscle use. Clear to auscultation. Breath sounds equal bilaterally. GASTROINTESTINAL: Abdomen soft, non-tender, nondistended. MUSCULOSKELETAL: Extremities without clubbing, cyanosis, or edema. No obvious deformities. NEUROLOGICAL: Awake and alert. No obvious cranial nerve deficits. Motor grossly within normal limits. Five out of 5 muscle strength in the arms and legs. Normal speech. Procedures 12/03: IM Reymundo fixation right lower extremity A/P Problem List: (1) DM (diabetes mellitus) type I uncontrolled with renal manifestation ICD Code: E10.29 Status: Chronic (2) Seizure ICD Code: R56.9 Status: Chronic (3) Closed fracture of right tibia and fibula ICD Code: S82.201A Status: Chronic (4) Acute kidney injury superimposed on chronic kidney disease ICD Code: N17.9 Status: Acute (5) Anemia ICD Code: D64.9 Status: Acute (6) Weakness of right side of body ICD Code: M62.81 Status: Chronic (7) Lupus ICD Code: M32.9 Status: Chronic (8) UTI (urinary tract infection) ICD Code: N39.0 Status: Acute Assessment and Plan (1) DM (diabetes mellitus) type I uncontrolled with renal manifestation Lantus has been held due to hypoglycemia Hypoglycemia likely due to worsening renal function. Monitor fingerstick sugars sliding scale coverage with hypoglycemia protocol. Now with hyperglycemia secondary to IV steroids Hemoglobin A1c is 10.8 (2) Seizure Stable. Patient continues with Trileptal, Dilantin toxicity resolved (3) Closed fracture of right tibia and fibula Stable. Continue 50% wb status for now, patient on Tums to improve fracture healing, continue vitamin D s/p im reymundo of comminuted closed fracture discussed w/ dr umanzor (4) Acute kidney injury superimposed on chronic kidney disease Worsening kidney function. Renal ultrasound shows medical renal disease Continue IV hydration and IV steroids Renal following for renal biopsy today. (5) Anemia Improved appears acute on chronic transfuse as needed (6) Weakness of right side of body CVA 2013 with residual deficit RUE, stable Continue PT/OT (7) Lupus Chronic Continue Plaquenil and IV steroids (8) UTI (urinary tract infection) Patient urine likely infected and with acute kidney injury will likely need treatment We'll consult infectious disease as the susceptibility profile requires restrictive medications Discharge Planning Case discussed with orthopedic/Dr. Umanzor regarding ambulation status as patient is still NWB, now 50% weightbearing through 01/31 then wbat Problem Qualifiers (1) Closed fracture of right tibia and fibula: Ramesh Davis MD Jan 20, 2017 11:52
--- NOTE | 2017-01-20 15:15 | RADRPT ---
EXAM DATE/TIME: 01/19/2017 10:46 [place] COMPARISON: No previous studies available for comparison. INDICATIONS : Patient presents with acute renal failure in need of central line placement for medication administra tion. MEDICAL HISTORY : 1. Bronchial asthma. 2. Lupus. 3. Hypertension. 4. Diabetes mellitus. 5. Seizure disorder. 6. CVA 2013 with residual deficit RUE 7. CKD stage III SURGICAL HISTORY : 1. . 2. Cholecystectomy. 3. Partial Hysterectomy. 4. Left foot surgery. ENCOUNTER: Initial ACUITY: 2 months PAIN SCORE: 0/10 LOCATION: N/A FLUORO TIME: 0.2 minutes IMAGE SERIES: 0 ACCESS: Right subclavian vein DEVICE(S): 1.) 7 Chinese triple lumen 20 cm Arrow central line PROCEDURE : 1. Ultrasound guided venipuncture. 2. Fluoroscopic guidance. 3. Central line placement. The risks, benefits and alternatives to the procedure were explained and verbal and written consent w as obtained. The site was prepped in sterile fashion. Full sterile technique was used, including ca p, mask, sterile gloves and gown and a large sterile sheet. Hand hygiene and 2% chlorhexidine prep w as utilized per protocol for cutaneous antisepsis with appropriate dry time for site. The skin and subcutaneous tissues were infiltrated with local anesthetic solution. A suitable site a valerio the vein was selected with ultrasound and fluoroscopic guidance. A small incision was made. Th e vein was accessed under direct ultrasound visualization using the micropuncture technique. The nicolette ropuncture set was exchanged for a 0.035 wire. The tract was dilated. The catheter was advanced int o position under direct fluoroscopic visualization. The catheter was fixed in place with suture and a sterile dressing was applied. The patient tolerated the procedure well and there were no complications. CONCLUSION: Uncomplicated line placement as above. Jim Aly MD on January 20, 2017 at 15:09 Board Certified Radiologist. This report was verified electronically.
[2017-01-20] MEDS: MIRTAZAPINE ODT 15 MG TAB PO SCH (22:11)
[2017-01-21] VITALS (11 sets, daily range): BP systolic 115–206; BP diastolic 59–106; PULSE 88–97; RESP 10–18; TEMP 97.3–98.8; O2SAT 93–100
[2017-01-21] MEDS: SODIUM CHLOR 0.45% 1000 ML INJ 1,000 ML IV SCH ×2 (01:21→21:28)
[2017-01-21] MEDS: INSULIN ASPART SUPPLEMENTAL SCALE SQ SCH ×3 (06:37→17:00)
[2017-01-21] MEDS: PANTOPRAZOLE SOD 40 MG DELAYED RELEASE TAB PO SCH (08:59)
[2017-01-21] MEDS: CALCIUM CARBONATE 500 MG CHEWABLE TAB CHEW SCH ×2 (08:59→21:25)
[2017-01-21] MEDS: MEGESTROL ACETATE SUSP 400 MG/10 ML CUP PO SCH ×2 (09:00→21:23)
[2017-01-21] MEDS: MULTIVITAMINS/MINERALS THERAPEUTIC TAB PO SCH (09:00)
[2017-01-21] MEDS: guaiFENesin E.R. 600 MG TAB PO SCH ×2 (09:00→21:25)
[2017-01-21] MEDS: OXcarbazepine 300 MG TAB PO SCH ×2 (09:00→21:24)
[2017-01-21] MEDS: ATORVASTATIN 40 MG TAB PO SCH (09:00)
[2017-01-21] MEDS: ENOXAPARIN SODIUM 30 MG/0.3 ML SYRINGE SQ SCH (09:00)
[2017-01-21] MEDS: DOCUSATE SODIUM 50 MG/SENNA 8.6 MG TAB PO SCH ×2 (09:00→21:25)
[2017-01-21] MEDS: HYDROXYCHLOROQUINE SULFATE 200 MG TAB PO SCH (09:01)
[2017-01-21] MEDS: METOPROLOL TARTRATE 25 MG TAB PO SCH ×2 (09:01→21:25)
[2017-01-21] MEDS: SODIUM CHLORIDE 0.9% FLUSH 10 ML FLUSH IVF SCH (09:03)
--- NOTE | 2017-01-21 09:27 | HHI.NPPN ---
Subjective General Problems: Anemia Renal Failure: Chronic, Acute Interval History Biopsy was not done yesterday, planned for 1100 today. The radiologist reported she was not transferred from the other hospital early enough. Creatinine is worse today. She has had 400 ml urine output since midnight. (Eva Marcelo) Review of Systems General Constitutional: Fatigue General Remarks (Eva Marcelo) Musculoskeletal MS Remarks generalized muscle aches (Eva Marcelo) Objective Data Data 01/20/17 01/21/17 19:00 07:00 Intake Total 420 ml 759 ml Output Total 200 ml Balance 420 ml 559 ml Intake Oral 420 ml 0 ml IV Total 759 ml Output Urine Total 200 ml # Voids 1 # Bowel Movements 0 1 Vital Signs Date Time Temp Pulse Resp B/P Pulse Ox O2 Delivery O2 Flow Rate FiO2 01/21/17 08:00 98.8 96 18 143/68 96 01/21/17 00:00 98.7 97 16 115/59 94 01/20/17 20:00 98.6 99 18 150/76 97 01/20/17 19:49 Room Air 01/20/17 16:00 97.4 101 17 141/72 97 01/20/17 12:00 97.8 104 17 149/76 99 01/20/17 11:24 95 21 (Eva Marcelo) -: 01/20/17 1045 01/20/17 0630 Imaging Last 72 hours Impressions Central Venous Line 01/19/17 0000 Signed Impressions: Service Date/Time: Thursday, January 19, 2017 10:46 - CONCLUSION: Uncomplicated line placement as above. Jim Aly MD Tubes & Lines: Meade Tubes & Lines Comment TLC right SC (Eva Marcelo) Physical Exam General Appearance: Well Developed, Well Nourished, No Acute Distress, Comfortable ( Eva Marcelo) Eyes Eye Exam: Pupils Equal (Eva Marcelo) Throat Throat Exam: Oral Mucosa [place] & Moist (Eva Marcelo) Neck Neck Exam: Neck Supple (Eva Marcelo) Pulmonary Resp Exam: Clear Bilaterally, Breath Sounds Equal, No Distress, Decreased Bases (Eva Marcelo) Cardiology CV Exam: Regular, Normal Sinus Rhythm (Eva Marcelo) Gastrointestinal/Abdomen GI Exam: Soft, Non-Tender, Bowel Sounds Present (Eva Marcelo) Musculoskeletal MS Exam: Joints Intact, Normal Tone, Good Strength (Eva Marcelo) Integumentary Skin Exam: Clear, Warm, Dry, Intact (Eva Marcelo) Extremeties Extremities Exam: No Edema, Pedal Pulses Palpable (Eva Marcelo) Neurologic Neuro Exam: Alert, Awake, Oriented, Speech Clear, Moving All Extremities ( Eva Marcelo) Psychiatric Psych Exam: Appropriate Responses (Eva Marcelo) PUD Prophylasis PUD Prophylaxis: Protonix (Eva Marcelo) Assessment/Plan Discussed Condition With: Patient Assessment Summary: REGAN/Acute Renal Failure, Anemia of CKD, Hypertension, Diabetes Mellitus Problem List: (1) Acute kidney failure Plan: Renal function continues to decline, etiology is uncertain due for biopsy today unlikely lupus nephritis as her complement levels are not low Allergic interstitial nephritis is on the differential, ordered 3 doses of Solumedrol empirically, final dose today Also possible ATN due to renal hypoperfusion serologies including KARLEY, ANCA, and hepatitis profile ordered, negative so far IVF still infusing, can continue follow labs, urine output, she is non oliguric, remove meade today in the meantime, minimize exposure to nephrotoxins, and avoid all non essential medications medications have been reviewed CBC, renal panel now and in AM lovenox is held until post procedure I have consulted radiology for permcath placement as she likely will need dialysis over the weekend (2) CKD (chronic kidney disease), stage III Plan: Due to diabetic nephropathy monitor renal function her baseline creatinine is 1.3-1.7 (3) UTI (urinary tract infection) Plan: culture reviewed, she is asymptomatic, not on antibiotics ID has evaluated remove meade (4) DKA (diabetic ketoacidoses) Plan: resolved, monitor for recurrence (5) Metabolic acidosis Plan: Resolved. monitor (Eva Marcelo) Plan patient was seen and examined. Apparently developed complications during dialysis catheter placement. Biopsy postponed. (Valdez Patterson MD) Problem Qualifiers (1) DKA (diabetic ketoacidoses): Eva Marcelo Jan 21, 2017 09:27 Valdez Patterson MD Jan 21, 2017 15:29
[2017-01-21 10:11] LABS: AUTOMATED NEUTROPHIL # 4.2 TH/MM3 (1.8-7.7); BASOPHIL % 0.8 % (0.0-2.0); EOSINOPHIL % 0.7 % (0.0-4.0); HEMATOCRIT 21.9 % (35.0-46.0); HEMO FLAGS DIFF FINAL; LYMPH % 23.4 % (9.0-44.0); LYMPHOCYTE # 1.5 TH/MM3 (1.0-4.8); MEAN CELL VOLUME 91.9 FL (80.0-100.0); MEAN CORPUSCULAR HEMOGLOBIN 30.5 PG (27.0-34.0); MEAN CORPUSCULAR HGB CONC 33.1 % (32.0-36.0); MONO % 7.3 % (0.0-8.0); NEUT % 67.8 % (16.0-70.0); PLATELET COUNT 254 TH/MM3 (150-450); RED BLOOD COUNT 2.38 MIL/MM3 (4.00-5.30); WHITE BLOOD COUNT 6.3 TH/MM3 (4.0-11.0)
[2017-01-21 10:13] LABS: BICARBONATE 25.4 MEQ/L (21.0-32.0); POTASSIUM 3.8 MEQ/L (3.5-5.1)
[2017-01-21] MEDS ORDERED: LIDOCAINE HCL 1% 20 ML VIAL ONE (12:07)
[2017-01-21] MEDS ORDERED: fentaNYL CITRATE 250 MCG/5 ML AMP ONE (12:10)
[2017-01-21] MEDS ORDERED: MIDAZOLAM HCL 2 MG/2 ML VIAL ONE (12:10)
--- NOTE | 2017-01-21 12:24 | HHI.PR ---
Subjective Remarks F/U REGAN. No complaints awaiting renal biopsy Objective Vitals Vital Signs Date Time Temp Pulse Resp B/P Pulse Ox O2 Delivery O2 Flow Rate FiO2 01/21/17 11:43 97.3 92 18 166/91 97 01/21/17 08:00 98.8 96 18 143/68 96 01/21/17 00:00 98.7 97 16 115/59 94 01/20/17 20:00 98.6 99 18 150/76 97 01/20/17 19:49 Room Air 01/20/17 16:00 97.4 101 17 141/72 97 I/O 01/20/17 01/20/17 01/20/17 01/21/17 01/21/17 01/21/17 07:00 15:00 23:00 07:00 15:00 23:00 Intake Total 559 ml 420 ml 759 ml 0 ml Output Total 100 ml 50 ml 150 ml Balance 459 ml 420 ml 709 ml -150 ml Intake Oral 0 ml 420 ml 0 ml 0 ml IV Total 559 ml 759 ml Output Urine Total 100 ml 50 ml 150 ml # Voids 1 # Bowel Movements 0 0 0 1 Result Diagram: 01/21/1792401/21/17924 Objective Remarks GENERAL: Well-developed, well-nourished in no distress. Cushingoid appearance. SKIN: Warm and dry. EYES: Pupils equal and round. No scleral icterus. No injection or drainage. ENT: No nasal bleeding or discharge. Mucous membranes pink and moist. NECK: Trachea midline. No JVD. CARDIOVASCULAR: Regular rate and rhythm. RESPIRATORY: No accessory muscle use. Clear to auscultation. Breath sounds equal bilaterally. GASTROINTESTINAL: Abdomen soft, non-tender, nondistended. MUSCULOSKELETAL: Extremities without clubbing, cyanosis, or edema. No obvious deformities. NEUROLOGICAL: Awake and alert. No obvious cranial nerve deficits. Motor grossly within normal limits. Five out of 5 muscle strength in the arms and legs. Normal speech. Procedures 12/03: IM Reymundo fixation right lower extremity A/P Problem List: (1) DM (diabetes mellitus) type I uncontrolled with renal manifestation ICD Code: E10.29 Status: Chronic (2) Seizure ICD Code: R56.9 Status: Chronic (3) Closed fracture of right tibia and fibula ICD Code: S82.201A Status: Chronic (4) Acute kidney injury superimposed on chronic kidney disease ICD Code: N17.9 Status: Acute (5) Anemia ICD Code: D64.9 Status: Acute (6) Weakness of right side of body ICD Code: M62.81 Status: Chronic (7) Lupus ICD Code: M32.9 Status: Chronic (8) UTI (urinary tract infection) ICD Code: N39.0 Status: Acute Assessment and Plan (1) DM (diabetes mellitus) type I uncontrolled with renal manifestation Lantus has been held due to hypoglycemia Hypoglycemia likely due to worsening renal function. Monitor fingerstick sugars sliding scale coverage with hypoglycemia protocol. Now with hyperglycemia secondary to IV steroids Hemoglobin A1c is 10.8 (2) Seizure Stable. Patient continues with Trileptal, Dilantin toxicity resolved (3) Closed fracture of right tibia and fibula Stable. Continue 50% wb status for now, patient on Tums to improve fracture healing, continue vitamin D s/p im reymundo of comminuted closed fracture discussed w/ dr mathias (4) Acute kidney injury superimposed on chronic kidney disease Worsening kidney function. Renal ultrasound shows medical renal disease Continue IV hydration and IV steroids Renal following for renal biopsy and permacath today. (5) Anemia appears acute on chronic transfuse as needed (6) Weakness of right side of body CVA 2013 with residual deficit RUE, stable Continue PT/OT (7) Lupus Chronic Continue Plaquenil and IV steroids (8) UTI (urinary tract infection) asymptomatic bacteriuria no tx per ID Discharge Planning Case discussed with orthopedic/Dr. Mathias regarding ambulation status as patient is still NWB, now 50% weightbearing through 01/31 then wbat Problem Qualifiers (1) Closed fracture of right tibia and fibula: Ramesh Davis MD Jan 21, 2017 12:24 Ramesh Davis MD Jan 21, 2017 12:24
[2017-01-21] MEDS ORDERED: FLUMAZENIL 0.5 MG/5 ML VIAL ONE (13:16)
[2017-01-21] MEDS ORDERED: NALOXONE HCL 0.4 MG/ML AMP ONE (13:16)
--- NOTE | 2017-01-21 13:42 | HHI.CCPN ---
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 She was admitted to [facility] under hospitalist service on December 02 status post fall and was found to have distal tibial fracture. She underwent reymundo fixation of her tibial fracture on December 03. Her initial laboratory data showed mild acute kidney injury with creatinine level of 1.37 on December 02 and WBC of 8.1. She had a HELICAT was called earlier as the patient was found somewhat lethargic and initially was felt to be in DKA by the primary team. However, upon arrival to the ICU her ABG showed a pH of 7.23, CO2 55, pAO2 of 22. Also, pAO2 of 95, bicarb of 22 and saturation 93% and her laboratory data from today showed worsening renal failure with a creatinine level of 2.32 and hyperkalemia with potassium level 5.6. She was given morphine 2 mg IV push, at 9:00 in the morning yesterday and Percocet 2 tablets last night and 2 tablets this morning at 04:00 a.m. A repeat ABG from showed a pH of 7.26 with a CO2 50, pAO2 135, bicarb 22 and sats of 96% on 2 liters nasal cannula. Due to her worsening renal function and mild respiratory acidosis and critical care medicine was consulted for critical care management. The patient is awake, alert on 2 liters oxygen with saturation of 93% and blood pressure of 103/54. She denies any chest pain, shortness of breath or any GI symptoms. 12/05 Patient is awake and alert on 2L oxygen with good sats. Afebrile. 12/06 No events overnight. s/p transfusion 2u PRBC Hgb 10.1 this morning. Renal function is improving with Cr: 1.75 from 1.92 01/21 -Lee arredondo was called on patient in CT . Patient went to CT for renal biopsy followed by PermCath placement she was given Versed 1mg , Fentanyl 50 mics for sedation shortly after she became bradycardic with HR 40's and had episode of desaturation. Code blue was called and she was given Narcan 0.4mg IV and Romazicon 0.2mg patient woke up hypertensive with BP 197/72, P:101 and sats 95 % on 2L. No ACLS drugs given. Objective Vital Signs Date Time Temp Pulse Resp B/P Pulse Ox O2 Delivery O2 Flow Rate FiO2 01/21/17 11:43 97.3 92 18 166/91 97 01/20/17 19:49 Room Air 01/20/17 11:24 21 01/19/17 08:00 2.00 Intake and Output 01/20/17 01/20/17 01/21/17 08:00 16:00 00:00 Intake Total 559 ml 420 ml 759 ml Output Total 100 ml 50 ml Balance 459 ml 420 ml 709 ml Result Diagram: 01/21/1792401/21/17924 Other Results Laboratory Tests Test 01/21/17 09:25 White Blood Count 6.3 TH/MM3 Red Blood Count 2.38 MIL/MM3 Hemoglobin 7.3 GM/DL Hematocrit 21.9 % Mean Corpuscular Volume 91.9 FL Mean Corpuscular Hemoglobin 30.5 PG Mean Corpuscular Hemoglobin 33.1 % Concent Red Cell Distribution Width 16.0 % Platelet Count 254 TH/MM3 Mean Platelet Volume 9.6 FL Neutrophils (%) (Auto) 67.8 % Lymphocytes (%) (Auto) 23.4 % Monocytes (%) (Auto) 7.3 % Eosinophils (%) (Auto) 0.7 % Basophils (%) (Auto) 0.8 % Neutrophils # (Auto) 4.2 TH/MM3 Lymphocytes # (Auto) 1.5 TH/MM3 Monocytes # (Auto) 0.5 TH/MM3 Eosinophils # (Auto) 0.0 TH/MM3 Basophils # (Auto) 0.0 TH/MM3 CBC Comment DIFF FINAL Differential Comment Sodium Level 140 MEQ/L Potassium Level 3.8 MEQ/L Chloride Level 104 MEQ/L Carbon Dioxide Level 25.4 MEQ/L Anion Gap 11 MEQ/L Blood Urea Nitrogen 33 MG/DL Creatinine 4.06 MG/DL Estimat Glomerular Filtration 14 ML/MIN Rate Random Glucose 236 MG/DL Calcium Level 7.9 MG/DL Phosphorus Level 3.0 MG/DL Albumin 1.9 GM/DL Imaging Last Impressions Central Venous Line 01/19/17 0000 Signed Impressions: Service Date/Time: Thursday, January 19, 2017 10:46 - CONCLUSION: Uncomplicated line placement as above. Jim Aly MD Chest X-Ray 01/13/17 0000 Signed Impressions: Service Date/Time: January 15:34 - CONCLUSION: Underinflation with atelectasis at the lung bases. No other acute finding is appreciated. Jim Michaels MD Brain MRI 01/11/17 0000 Signed Impressions: Service Date/Time: Wednesday, January 11, 2017 15:04 - CONCLUSION: 1. Stable focus of abnormal signal involving the left centrum semiovale likely related to prior lacunar infarct. No acute intracranial anatomy. Rafiq Nielson MD Head CT 01/10/17 0917 Signed Impressions: Service Date/Time: Tuesday, January 10, 2017 09:49 - CONCLUSION: 1. Interval development of left sided mastoiditis since 11/22/2016. Clinical correlation is recommended. 2. Otherwise, no acute intracranial abnormality. Eriberto Madison MD Abdomen/Pelvis CT 12/25/16 1100 Signed Impressions: Service Date/Time: Sunday, December 25, 2016 12:00 - CONCLUSION: Interval development of anasarca, small bilateral effusions and small to moderate ascites. No significant ileus, hydronephrosis, mass or lymphadenopathy. Status post cholecystectomy. Bobby Martins MD Abdomen X-Ray 12/25/16 0857 Signed Impressions: Service Date/Time: Sunday, December 25, 2016 09:27 - CONCLUSION: No acute disease. Bobby Martins MD Upper Extremity Ultrasound 12/24/16 0000 Signed Impressions: Service Date/Time: Saturday, December 24, 2016 11:58 - CONCLUSION: Normal examination. KReza Luna MD Renal Ultrasound 12/24/16 0000 Signed Impressions: Service Date/Time: Saturday, December 24, 2016 11:53 - CONCLUSION: 1. Increased echogenicity of the renal cortex which can be seen with underlying medical renal disease. 2. No findings to indicate renal obstruction. 3. Small bilateral effusions and a trace amount of ascites within the abdomen. Umesh Farah MD Tibia/Fibula X-Ray 12/03/16 0000 Signed Impressions: Service Date/Time: Saturday, December 03, 2016 15:09 - CONCLUSION: Excellent alignment of the patient's tibial fracture post rodding. Patient has a minimally displaced fibular fracture as well. Umesh Farah MD Ankle X-Ray 12/02/16 0000 Signed Impressions: Service Date/Time: November 18:16 - CONCLUSION: 1. The ankle mortise is intact. 2. Distal tibial and fibular fractures again noted. Please see right leg report for further details. Javier Marino MD Objective Remarks GENERAL: Patient is 46 yo lying in be din NAD SKIN: Warm and dry. HEAD: Normocephalic. EYES: No scleral icterus. No injection or drainage. NECK: Supple, trachea midline. No JVD or lymphadenopathy. CARDIOVASCULAR: Regular rate and rhythm without murmurs, gallops, or rubs. RESPIRATORY: Breath sounds equal bilaterally. No accessory muscle use. GASTROINTESTINAL: Abdomen soft, non-tender, nondistended. MUSCULOSKELETAL: No cyanosis, or edema. Neuro: Awake and alert Procedures 12/03: IM Reymundo fixation right lower extremity A/P Assessment and Plan 1. Respiratory insufficiency. 2. Acute renal failure. ? Allergic interstitial nephritis, ? lupus nephritis. 3. Anemia 4. DM 5. Right closed tibial fracture status post reymundo fixation on December 03. 6 UTI- VRE bacteruria 7. History of seizure disorder and CVA. 8. History of lupus. 9. HTN Plan Neuro: Monitor neuro status closely and avoid any sedatives. Continue with Trileptal. Pulm: Continue with oxygen maintain sats above 92%. Bronchodilators, check CXR/ ABG CV: Monitor HR and BP and maintain MAP> 65 mmHg. On Lopressor 12.5mg Q12, Norvasc 10mg daily, Lipitor 80mg daily Echo from 12/25: EF: 55-60%, grade I diastolic function, pericardial effusion without evidence of tamponade. : Monitor renal function Is and Os and electrolyte replacement as needed. Avoid nephrotoxins. Patient was scheduled for renal biopsy today and perm a Cath placement however procedures were aborted. Renal- Dr. Patterson, Patient is receiving 3 day course pulse steroids last dose today for possible Allergic interstitial nephritis. On 1/2NS@50ml/hr On Plaquenil for Lupus GI: On Protonix 40 mg IV daily for GI prophylaxis. ID: Abx per ID. Monitor for signs of infections (Fever and WBC) panculture if spikes a fever. Urine cx 01/17: VRE Endo: On SSI medium scale with Accu-Chek q. 4-hour Patient is allergic to Levemir Heme: Monitor CBC,. GI prophylaxis with Protonix 40 mg daily and DVT prophylaxis with SCDs . Lines: Right subclavian CVP placed 8/9 by IR, for vascath placement. Will transfer care to [facility] in am if no issues overnight. Level [address] MD Jan 21, 2017 13:42
--- NOTE | 2017-01-21 13:51 | PD.RAD ---
Post CT Procedure Prog Note Pre Procedure Diagnosis: (1) CKD (chronic kidney disease), stage III Post Procedure Diagnosis: (1) CKD (chronic kidney disease), stage III Procedure Date: Jan 21, 2017 Supervising Radiologist: Jim Michaels Anesthesia: Conscious Sedation Plan of Activity Patient to Unit: [facility] Patient Condition: Fair Additional Comments: procedure was started and dermatotomy was performed. However, patient became unresponsive following 1mg versed and 50mcg fentanyl and had to be emergently reversed. Code called put patient woke up after reversal agents given. Procedure will not be performed today. Will likely need temporary Vascath placed for dialysis. See PACS Report for procedural detail/treatment Jim Michaels MD Jan 21, 2017 13:50
[2017-01-21 14:13] LABS: BLOOD GAS BASE EXCESS -3.1 mmol/L (-2-2); BLOOD GAS CARBOXYHEMOGLOBIN 1.9 % (0-4); BLOOD GAS HCO3 21 mmol/L (22-26); BLOOD GAS METHEMOGLOBIN 1.3 % (0-2); BLOOD GAS O2 HGB SATURATION 95 % (90-100); BLOOD GAS OXYGEN CONTENT 9.7 Vol % (12.0-20.0); BLOOD GAS PCO2 38 mmHg (38-42); BLOOD GAS PO2 106 mmHg (61-120); BLOOD GAS TOTAL HGB 7.1 G/DL (12.0-16.0); CRITICAL VALUE NO; DRAW SITE RT BRACHIAL; LITER FLOW 2 L/M; NUMBER OF ARTERIAL PUNCTURES 1; OXYGEN DEVICE NASAL CANNULA; STAT YES; TEMP CORR TO 98.6; ULNAR PULSE PRESENT
--- NOTE | 2017-01-21 14:48 | RADRPT ---
EXAM DATE/TIME: 01/21/2017 13:58 [facility] COMPARISON: CHEST SINGLE AP, January 13, 2017, 15:34. INDICATIONS : Short of breath. MEDICAL HISTORY : Seizures. Renal insufficiency, chronic. Diabetes mellitus type 2. Hypertension. SURGICAL HISTORY : Cholecystectomy. Hysterectomy. section. Right tib/fib. Left foot. ENCOUNTER: Subsequent ACUITY: 1 week PAIN SCORE: 0/10 LOCATION: Bilateral chest FINDINGS: Underinflated AP view of the chest demonstrates a normal-sized cardiac silhouette. Right subclavian c entral line tip is in the SVC. Multiple EKG lines overlie the patient. There are bibasilar pleural-pa renchymal opacities. No pneumothorax is identified. Bones and soft tissues demonstrate no acute findi ng. CONCLUSION: Underinflation with mild bibasilar opacity representing either atelectasis, consolidation, or possibl y small effusions. Jim Michaels MD on January 21, 2017 at 14:45 Board Certified Radiologist. This report was verified electronically.
[2017-01-21] MEDS: RESP: ALBUTEROL 2.5 MG/IPRATROPIUM 0.5 MG NEB (SCH) NEB ×2 (16:00→20:29)
[2017-01-21 16:12] LABS: ANA SCREEN NEG (NEG)
[2017-01-21] MEDS: hydrALAZINE HCL 50 MG TAB PO SCH ×2 (17:30→21:30)
--- NOTE | 2017-01-21 17:49 | PD.RAD ---
Post Procedure Progress Note Pre Procedure Diagnosis: (1) REGAN (acute kidney injury) Post Procedure Diagnosis: (1) Acute kidney injury superimposed on chronic kidney disease Procedure Date: Jan 21, 2017 Supervising Radiologist: Jim Aly Proceduralist/Assist: Lien Estrada RT(R)(), Parvin Alvarez RT(R)(CV) Anesthesia: Local Plan of Activity Patient to Unit: Nursing Unit Patient Condition: Fair See PACS Report for procedural detail/treatment Central Venous Access Device Procedure 1 Right Internal Jugular Hemodialysis Catheter Non-Tunneled Placement dual lumen Marshallese: 14 Additional Detail: Jim Johnson MD Jan 21, 2017 17:49
[2017-01-21 17:50] LABS: MYELOPEROXIDASE LESS THAN 1.0 AI (<1.0); PROTEINASE-3 LESS THAN 1.0 AI (<1.0)
[2017-01-21] MEDS ORDERED: HEPARIN SODIUM - IV 2,000 UNITS/2 ML VIAL IV FLUSH PRN (18:00)
[2017-01-21] MEDS ORDERED: SODIUM CHLORIDE 0.9% FLUSH 10 ML FLUSH IVF PRN (18:00)
--- NOTE | 2017-01-21 18:33 | RADRPT ---
EXAM DATE/TIME: 01/21/2017 16:07 [facility] COMPARISON: No previous studies available for comparison. INDICATIONS : Patient with a history of renal failure, needs dialysis. MEDICAL HISTORY : 1. Bronchial asthma. 2. Lupus. 3. Hypertension. 4. Diabetes mellitus. 5. Seizure disorder. 6. CVA 2013 with residual deficit RUE 7. CKD stage III SURGICAL HISTORY : 1. . 2. Cholecystectomy. 3. Partial Hysterectomy. 4. Left foot surgery. ENCOUNTER: Initial ACUITY: 3 days PAIN SCORE: 0/10 FLUORO TIME: 0.3 minutes IMAGE SERIES: 1 ACCESS: Right internal jugular vein DEVICE(S): 1.) 14 Burmese dual lumen 15 cm Schon catheter PROCEDURE : 1. Ultrasound guided venipuncture. 2. Fluoroscopic guidance. 3. Central line placement. The risks, benefits and alternatives to the procedure were explained and verbal and written consent w as obtained. The site was prepped in sterile fashion. Full sterile technique was used, including ca p, mask, sterile gloves and gown and a large sterile sheet. Hand hygiene and 2% chlorhexidine prep w as utilized per protocol for cutaneous antisepsis with appropriate dry time for site. The skin and subcutaneous tissues were infiltrated with local anesthetic solution. A suitable site a valerio the vein was selected with ultrasound and fluoroscopic guidance. A small incision was made. Th e vein was accessed under direct ultrasound visualization using the micropuncture technique. The nicolette ropuncture set was exchanged for a 0.035 wire. The tract was dilated. The catheter was advanced int o position under direct fluoroscopic visualization. The catheter was fixed in place with suture and a sterile dressing was applied. The patient tolerated the procedure well and there were no complications. CONCLUSION: Uncomplicated line placement as above. Jim Aly MD on January 21, 2017 at 18:31 Board Certified Radiologist. This report was verified electronically.
[2017-01-21] MEDS ORDERED: methylPREDNISolone SO SUCC INJ 500 MG in DEXTROSE 5% IN WATER 100ML INJ 100 ML IV ONE ×2 (21:00)
[2017-01-21] MEDS: MIRTAZAPINE ODT 15 MG TAB PO SCH (21:24)
[2017-01-22] VITALS (13 sets, daily range): BP systolic 128–151; BP diastolic 63–79; PULSE 86–103; RESP 13–22; TEMP 97.9–99.2; O2SAT 95–98
[2017-01-22] MEDS: INSULIN ASPART SUPPLEMENTAL SCALE SQ SCH ×5 (00:33→22:10)
[2017-01-22] MEDS: RESP: ALBUTEROL 2.5 MG/IPRATROPIUM 0.5 MG NEB (SCH) NEB ×4 (03:05→22:00)
[2017-01-22 04:51] LABS: AUTOMATED NEUTROPHIL # 5.3 TH/MM3 (1.8-7.7); BASOPHIL % 0.1 % (0.0-2.0); EOSINOPHIL % 0.1 % (0.0-4.0); HEMATOCRIT 22.6 % (35.0-46.0); HEMO FLAGS DIFF FINAL; LYMPH % 6.8 % (9.0-44.0); LYMPHOCYTE # 0.4 TH/MM3 (1.0-4.8); MEAN CELL VOLUME 90.3 FL (80.0-100.0); MEAN CORPUSCULAR HEMOGLOBIN 30.9 PG (27.0-34.0); MEAN CORPUSCULAR HGB CONC 34.2 % (32.0-36.0); MONO % 1.2 % (0.0-8.0); NEUT % 91.8 % (16.0-70.0); PLATELET COUNT 229 TH/MM3 (150-450); RED CELL DISTRIBUTION WIDTH 15.6 % (11.6-17.2); WHITE BLOOD COUNT 5.8 TH/MM3 (4.0-11.0)
[2017-01-22] MEDS: hydrALAZINE HCL 50 MG TAB PO SCH ×3 (05:00→21:46)
[2017-01-22 05:16] LABS: BICARBONATE 26.9 MEQ/L (21.0-32.0)
[2017-01-22] MEDS: OXcarbazepine 300 MG TAB PO SCH ×2 (08:36→21:46)
[2017-01-22] MEDS: DOCUSATE SODIUM 50 MG/SENNA 8.6 MG TAB PO SCH ×2 (08:36→21:00)
[2017-01-22] MEDS: ATORVASTATIN 40 MG TAB PO SCH (08:36)
[2017-01-22] MEDS: guaiFENesin E.R. 600 MG TAB PO SCH ×2 (08:36→21:46)
[2017-01-22] MEDS: PANTOPRAZOLE SOD 40 MG DELAYED RELEASE TAB PO SCH (08:36)
[2017-01-22] MEDS: MEGESTROL ACETATE SUSP 400 MG/10 ML CUP PO SCH ×2 (08:36→21:47)
[2017-01-22] MEDS: SODIUM CHLORIDE 0.9% FLUSH 10 ML FLUSH IVF SCH (08:37)
[2017-01-22] MEDS: CALCIUM CARBONATE 500 MG CHEWABLE TAB CHEW SCH ×2 (08:37→21:46)
[2017-01-22] MEDS: HYDROXYCHLOROQUINE SULFATE 200 MG TAB PO SCH (08:37)
[2017-01-22] MEDS: MULTIVITAMINS/MINERALS THERAPEUTIC TAB PO SCH (08:37)
[2017-01-22] MEDS: METOPROLOL TARTRATE 25 MG TAB PO SCH ×2 (08:37→21:45)
[2017-01-22] MEDS: predniSONE 20 MG TAB PO SCH (08:39)
[2017-01-22] MEDS: hydrALAZINE HCL 20 MG/ML VIAL IV PUSH PRN (10:14)
--- NOTE | 2017-01-22 13:26 | HHI.NPPN ---
Subjective General Problems: Anemia Renal Failure: Chronic, Acute Additional Remarks Patient is alert, has mild SOB, with nasal cannula. Review of Systems General Constitutional: Fatigue General Remarks Musculoskeletal MS Remarks generalized muscle aches Objective Data Data 01/21/17 01/22/17 19:00 07:00 Intake Total 1466 ml Output Total 950 ml Balance 516 ml Intake Oral 1000 ml IV Total 466 ml Output Urine Total 950 ml # Bowel Movements 1 Vital Signs Date Time Temp Pulse Resp B/P Pulse Ox O2 Delivery O2 Flow Rate FiO2 01/22/17 12:00 95 01/22/17 12:00 98.6 96 22 128/67 97 01/22/17 10:00 90 01/22/17 08:00 93 01/22/17 08:00 98.8 93 19 149/75 97 01/22/17 07:53 98 Nasal Cannula 2.00 01/22/17 07:00 98 Nasal Cannula 2.00 01/22/17 06:00 91 01/22/17 04:00 99.2 91 15 151/73 97 01/22/17 02:00 90 01/22/17 00:00 98.7 86 13 128/63 96 01/21/17 20:00 98.4 96 10 140/70 96 01/21/17 19:00 95 Room Air 01/21/17 17:00 100 Room Air 01/21/17 16:30 95 Nasal Cannula 2.00 01/21/17 15:30 88 16 185/106 98 01/21/17 15:00 88 18 190/106 100 01/21/17 14:30 89 16 189/103 97 01/21/17 14:10 89 18 187/96 97 01/21/17 13:40 90 18 191/106 97 01/21/17 13:25 98.0 92 18 206/106 93 -: 01/22/17 0430 01/22/17 0430 Tubes & Lines: [place] Tubes & Lines Comment TLC right SC Physical Exam General Appearance: No Acute Distress, Comfortable, Anxious Eyes Eye Exam: Pupils Equal Throat Throat Exam: Oral Mucosa [place] & Moist Neck Neck Exam: Neck Supple Pulmonary Resp Exam: Clear Bilaterally, Breath Sounds Equal, No Distress, Decreased Bases Cardiology CV Exam: Regular, Normal Sinus Rhythm Gastrointestinal/Abdomen GI Exam: Soft, Non-Tender, Bowel Sounds Present Musculoskeletal MS Exam: Joints Intact, Normal Tone, Good Strength Integumentary Skin Exam: Clear, Warm, Dry, Intact Extremeties Extremities Exam: Moderate Edema Neurologic Neuro Exam: Alert, Awake, Oriented Psychiatric Psych Exam: Appropriate Responses PUD Prophylasis PUD Prophylaxis: Protonix Assessment/Plan Discussed Condition With: Patient Assessment Summary: REGAN/Acute Renal Failure, Anemia of CKD, Hypertension, Diabetes Mellitus Problem List: (1) Acute kidney failure Plan: Renal function continues to decline, etiology is uncertain due for biopsy today unlikely lupus nephritis as her complement levels are not low Allergic interstitial nephritis is on the differential, ordered 3 doses of Solumedrol empirically, final dose today Also possible ATN due to renal hypoperfusion serologies including KARLEY, ANCA, and hepatitis profile ordered, negative so far IVF still infusing, can continue follow labs, urine output, she is non oliguric, in the meantime, minimize exposure to nephrotoxins, and avoid all non essential medications medications have been reviewed HD again today and follow the BMP. Renal Biopsy on Tuesday. (2) CKD (chronic kidney disease), stage III Plan: Due to diabetic nephropathy monitor renal function her baseline creatinine is 1.3-1.7 (3) UTI (urinary tract infection) Plan: culture reviewed, she is asymptomatic, not on antibiotics ID has evaluated remove meade (4) DKA (diabetic ketoacidoses) Plan: resolved, monitor for recurrence (5) Metabolic acidosis Plan: Resolved. monitor Plan patient was seen and examined. Apparently developed complications during dialysis catheter placement. Biopsy postponed. Problem Qualifiers (1) DKA (diabetic ketoacidoses): Racquel Horton MD Jan 22, 2017 13:25
--- NOTE | 2017-01-22 13:43 | HHI.PR ---
Subjective Remarks Follow-up kidney disease. Tolerating hemodialysis. Denies chest pain and shortness of breath. Events yesterday reviewed and discussed with critical care medicine apparently desaturated and bradycardic after receiving Versed and fentanyl. Since then, she has been hemodynamically stable okay for transfer out of ICU. Discussed with RN Objective Vitals Vital Signs Date Time Temp Pulse Resp B/P Pulse Ox O2 Delivery O2 Flow Rate FiO2 01/22/17 12:00 95 01/22/17 12:00 98.6 96 22 128/67 97 01/22/17 10:00 90 01/22/17 08:00 93 01/22/17 08:00 98.8 93 19 149/75 97 01/22/17 07:53 98 Nasal Cannula 2.00 01/22/17 07:00 98 Nasal Cannula 2.00 01/22/17 06:00 91 01/22/17 04:00 99.2 91 15 151/73 97 01/22/17 02:00 90 01/22/17 00:00 98.7 86 13 128/63 96 01/21/17 20:00 98.4 96 10 140/70 96 01/21/17 19:00 95 Room Air 01/21/17 17:00 100 Room Air 01/21/17 16:30 95 Nasal Cannula 2.00 01/21/17 15:30 88 16 185/106 98 01/21/17 15:00 88 18 190/106 100 01/21/17 14:30 89 16 189/103 97 01/21/17 14:10 89 18 187/96 97 I/O 01/21/17 01/21/17 01/21/17 01/22/17 01/22/17 01/22/17 07:00 15:00 23:00 07:00 15:00 23:00 Intake Total 0 ml 928 ml 538 ml Output Total 150 ml 725 ml 225 ml Balance -150 ml 203 ml 313 ml Intake Oral 0 ml 760 ml 240 ml IV Total 168 ml 298 ml Output Urine Total 150 ml 725 ml 225 ml # Bowel Movements 1 1 Result Diagram: 01/22/1742901/22/17 0430 Objective Remarks GENERAL: Well-developed, well-nourished in no distress. SKIN: Warm and dry. EYES: Pupils equal and round. No scleral icterus. No injection or drainage. ENT: No nasal bleeding or discharge. Mucous membranes pink and moist. NECK: Trachea midline. No JVD. CARDIOVASCULAR: Regular rate and rhythm. RESPIRATORY: No accessory muscle use. Clear to auscultation. Breath sounds equal bilaterally. GASTROINTESTINAL: Abdomen soft, non-tender, nondistended. MUSCULOSKELETAL: Extremities without clubbing, cyanosis, or edema. No obvious deformities. NEUROLOGICAL: Awake and alert. No obvious cranial nerve deficits. Motor grossly within normal limits. Five out of 5 muscle strength in the arms and legs. Normal speech. Procedures 12/03: IM Reymundo fixation right lower extremity 01/21 Vas-Cath placement A/P Problem List: (1) DM (diabetes mellitus) type I uncontrolled with renal manifestation ICD Code: E10.29 Status: Chronic (2) Seizure ICD Code: R56.9 Status: Chronic (3) Closed fracture of right tibia and fibula ICD Code: S82.201A Status: Chronic (4) Acute kidney injury superimposed on chronic kidney disease ICD Code: N17.9 Status: Acute (5) Anemia ICD Code: D64.9 Status: Acute (6) Weakness of right side of body ICD Code: M62.81 Status: Chronic (7) Lupus ICD Code: M32.9 Status: Chronic (8) UTI (urinary tract infection) ICD Code: N39.0 Status: Acute Assessment and Plan (1) DM (diabetes mellitus) type I uncontrolled with renal manifestation Hemoglobin A1c is 10.8. Hyperglycemic secondary to steroids but start Levemir and continue sliding scale coverage (2) Seizure Stable. Patient continues with Trileptal, Dilantin toxicity resolved (3) Closed fracture of right tibia and fibula Stable. Continue 50% wb status for now, patient on Tums to improve fracture healing, continue vitamin D s/p im reymundo of comminuted closed fracture discussed w/ dr mathias (4) Acute kidney injury superimposed on chronic kidney disease Worsening kidney function. Renal ultrasound shows medical renal disease Continue IV hydration and steroids Tolerating hemodialysis. Canceled renal biopsy secondary to drug reaction (5) Anemia appears acute on chronic transfuse as needed (6) Weakness of right side of body CVA 2013 with residual deficit RUE, stable Continue PT/OT (7) Lupus Chronic Continue Plaquenil and IV steroids (8) UTI (urinary tract infection) asymptomatic bacteriuria no tx per ID Status post CODE BLUE after receiving Versed and fentanyl for conscious sedation. She became bradycardic and hypoxic. No ACLS drugs given. DVT prophylaxis with SCD and early ambulation. Restart Lovenox Discharge Planning Case discussed with orthopedic/Dr. Mathias regarding ambulation status as patient is still NWB, now 50% weightbearing through 01/31 then wbat Problem Qualifiers (1) Closed fracture of right tibia and fibula: Ramesh Davis MD Jan 22, 2017 13:43
[2017-01-22] MEDS ORDERED: CHLORHEXIDINE GLUCONATE 2 % 1 PACK (2 CLOTHS)(extra cloths) TOPICAL PRN (14:45)
[2017-01-22] MEDS: SODIUM CHLOR 0.45% 1000 ML INJ 1,000 ML IV SCH (15:41)
[2017-01-22] MEDS ORDERED: cloNIDine HCL 0.1 MG TAB PO PRN (15:45)
[2017-01-22] MEDS ORDERED: ONDANSETRON HCL 4 MG/2 ML VIAL IV PRN (15:45)
[2017-01-22] MEDS ORDERED: NS 250 ML IV PRN (15:45)
[2017-01-22] MEDS ORDERED: GENTAMICIN SULFATE (DIALYSIS USE ONLY) 20 MG/2 ML VIAL OTHER PRN (15:45)
[2017-01-22] MEDS ORDERED: ALBUMIN HUMAN 25% 25 GM/100 ML BAGP IV PRN (15:45)
[2017-01-22] MEDS ORDERED: HEPARIN SODIUM - IV 10,000 UNITS/10 ML VIAL OTHER PRN (15:45)
[2017-01-22] MEDS ORDERED: SODIUM CHLORIDE 0.9% FLUSH 10 ML FLUSH IV FLUSH PRN (15:45)
[2017-01-22] MEDS ORDERED: NITROGLYCERIN 0.4 MG SL 25 TABS/BTL SL PRN (15:45)
[2017-01-22] MEDS ORDERED: GELATIN 12 MM/7 MM FOAM TOPICAL PRN (15:45)
[2017-01-22] MEDS ORDERED: SODIUM CHLOR 0.9% 1000 ML IV PRN ×2 (15:45)
[2017-01-22] MEDS ORDERED: HEPARIN SODIUM - IV 10,000 UNITS/10 ML VIAL IV FLUSH PRN (15:45)
[2017-01-22] MEDS ORDERED: MANNITOL 12.5 GM/50 ML VIAL IV PRN (15:45)
[2017-01-22] MEDS ORDERED: ACETAMINOPHEN 325 MG TAB PO PRN (15:45)
[2017-01-22] MEDS ORDERED: diphenhydrAMINE HCL 25 MG CAP PO PRN (15:45)
[2017-01-22] MEDS ORDERED: INSULIN DETEMIR 100 UNITS/ML VIAL SQ SCH (21:00)
[2017-01-22] MEDS: MIRTAZAPINE ODT 15 MG TAB PO SCH (21:54)
[2017-01-22] MEDS: MUPIROCIN 2% OINT 1 APPLIC/GM SYR NASAL SCH (21:55)
[2017-01-23] VITALS (10 sets, daily range): BP systolic 118–139; BP diastolic 56–74; PULSE 84–96; RESP 16–18; TEMP 98.5–98.9; O2SAT 93–100
[2017-01-23] MEDS: RESP: ALBUTEROL 2.5 MG/IPRATROPIUM 0.5 MG NEB (SCH) NEB ×4 (03:31→21:18)
[2017-01-23] MEDS: CHLORHEXIDINE GLUCONATE 2 % 1 PACK (2 CLOTHS)(taper/protocol) TOPICAL SCH (04:00)
[2017-01-23] MEDS: hydrALAZINE HCL 50 MG TAB PO SCH ×3 (05:34→22:37)
[2017-01-23] MEDS: INSULIN ASPART SUPPLEMENTAL SCALE SQ SCH ×4 (06:12→23:23)
[2017-01-23] MEDS: SODIUM CHLORIDE 0.9% FLUSH 10 ML FLUSH IVF SCH (09:00)
[2017-01-23] MEDS: DOCUSATE SODIUM 50 MG/SENNA 8.6 MG TAB PO SCH ×2 (09:00→21:00)
[2017-01-23] MEDS: MUPIROCIN 2% OINT 1 APPLIC/GM SYR NASAL SCH ×2 (09:00→22:38)
[2017-01-23] MEDS: CALCIUM CARBONATE 500 MG CHEWABLE TAB CHEW SCH ×2 (09:47→22:37)
[2017-01-23] MEDS: MULTIVITAMINS/MINERALS THERAPEUTIC TAB PO SCH (09:47)
[2017-01-23] MEDS: METOPROLOL TARTRATE 25 MG TAB PO SCH ×2 (09:47→22:37)
[2017-01-23] MEDS: predniSONE 20 MG TAB PO SCH (09:47)
[2017-01-23] MEDS: OXcarbazepine 300 MG TAB PO SCH ×2 (09:47→22:36)
[2017-01-23] MEDS: ATORVASTATIN 40 MG TAB PO SCH (09:47)
[2017-01-23] MEDS: guaiFENesin E.R. 600 MG TAB PO SCH ×2 (09:47→22:37)
[2017-01-23] MEDS: PANTOPRAZOLE SOD 40 MG DELAYED RELEASE TAB PO SCH (09:47)
[2017-01-23] MEDS: HYDROXYCHLOROQUINE SULFATE 200 MG TAB PO SCH (09:47)
[2017-01-23] MEDS: MEGESTROL ACETATE SUSP 400 MG/10 ML CUP PO SCH ×2 (09:47→22:39)
[2017-01-23] MEDS: ENOXAPARIN SODIUM 30 MG/0.3 ML SYRINGE SQ SCH (09:47)
--- NOTE | 2017-01-23 10:36 | HHI.PR ---
Subjective Remarks Follow-up diabetes mellitus. Hyperglycemic did not receive Levemir because she is allergic to it. States she has Lantus insulin. Discussed with RN and pharmacy Objective Vitals Vital Signs Date Time Temp Pulse Resp B/P Pulse Ox O2 Delivery O2 Flow Rate FiO2 01/23/17 08:38 Room Air 01/23/17 08:38 88 01/23/17 08:00 98.6 88 18 118/57 93 01/23/17 04:00 98.7 96 18 130/68 95 01/23/17 00:00 98.9 89 16 118/63 100 01/23/17 00:00 Room Air 01/22/17 20:35 103 01/22/17 20:00 Room Air 01/22/17 20:00 97.9 97 18 136/77 98 01/22/17 17:50 98.3 98 18 143/79 95 01/22/17 16:00 98.8 98 20 148/71 98 01/22/17 16:00 98 01/22/17 14:00 96 01/22/17 12:00 95 01/22/17 12:00 98.6 96 22 128/67 97 I/O 01/22/17 01/22/17 01/22/17 01/23/17 01/23/17 01/23/17 06:59 14:59 22:59 06:59 14:59 22:59 Intake Total 538 ml 1350 ml 240 ml 120 ml Output Total 225 ml 210 ml 1100 ml 100 ml Balance 313 ml 1140 ml -860 ml 20 ml Intake Oral 240 ml 600 ml 240 ml 120 ml IV Total 298 ml 750 ml Output Urine Total 225 ml 210 ml 100 ml 100 ml Hemodialysis 1000 ml # Bowel Movements 1 1 0 Result Diagram: 01/22/17 0430 01/22/17 0430 Objective Remarks GENERAL: Well-developed, well-nourished in no distress. SKIN: Warm and dry. EYES: Pupils equal and round. No scleral icterus. No injection or drainage. ENT: No nasal bleeding or discharge. Mucous membranes pink and moist. NECK: Trachea midline. No JVD. CARDIOVASCULAR: Regular rate and rhythm. RESPIRATORY: No accessory muscle use. Clear to auscultation. Breath sounds equal bilaterally. GASTROINTESTINAL: Abdomen soft, non-tender, nondistended. MUSCULOSKELETAL: Extremities without clubbing, cyanosis, or edema. No obvious deformities. Lipoma right upper back NEUROLOGICAL: Awake and alert. No obvious cranial nerve deficits. Motor grossly within normal limits. Five out of 5 muscle strength in the arms and legs. Normal speech. Procedures 12/03: IM Reymundo fixation right lower extremity 01/21 Vas-Cath placement A/P Problem List: (1) DM (diabetes mellitus) type I uncontrolled with renal manifestation ICD Code: E10.29 Status: Chronic (2) Seizure ICD Code: R56.9 Status: Chronic (3) Closed fracture of right tibia and fibula ICD Code: S82.201A Status: Chronic (4) Acute kidney injury superimposed on chronic kidney disease ICD Code: N17.9 Status: Acute (5) Anemia ICD Code: D64.9 Status: Acute (6) Weakness of right side of body ICD Code: M62.81 Status: Chronic (7) Lupus ICD Code: M32.9 Status: Chronic (8) UTI (urinary tract infection) ICD Code: N39.0 Status: Acute Assessment and Plan (1) DM (diabetes mellitus) type I uncontrolled with renal manifestation Hemoglobin A1c is 10.8. Hyperglycemic secondary to steroids. I will switch to Lantus 10 units twice a day first dose now and continue sliding scale coverage (2) Seizure Stable. Patient continues with Trileptal, Dilantin toxicity resolved (3) Closed fracture of right tibia and fibula Stable. Continue 50% wb status for now, patient on Tums to improve fracture healing, continue vitamin D s/p im reymundo of comminuted closed fracture discussed w/ Dr. Umanzor (4) Acute kidney injury superimposed on chronic kidney disease Worsening kidney function. Renal ultrasound shows medical renal disease Continue IV hydration and steroids Tolerating hemodialysis. Canceled renal biopsy secondary to drug reaction (5) Anemia appears acute on chronic transfuse as needed (6) Weakness of right side of body CVA 2013 with residual deficit RUE, stable Continue PT/OT (7) Lupus Chronic Continue Plaquenil and IV steroids (8) UTI (urinary tract infection) asymptomatic bacteriuria no tx per ID Status post CODE BLUE after receiving Versed and fentanyl for conscious sedation. She became bradycardic and hypoxic. No ACLS drugs given. Resolved DVT prophylaxis with SCD and early ambulation. Restart Lovenox Discharge Planning Case discussed with orthopedic/Dr. Umanzor regarding ambulation status as patient is still NWB, now 50% weightbearing through 01/31 then wbat Problem Qualifiers (1) Closed fracture of right tibia and fibula: Ramesh Davis MD Jan 23, 2017 10:36
--- NOTE | 2017-01-23 11:16 | HHI.NPPN ---
Subjective General Problems: Anemia Renal Failure: Chronic, Acute Additional Remarks Patient is alert, breathing is better, mild nausea, no abd. pain. Review of Systems General Constitutional: Fatigue General Remarks Musculoskeletal MS Remarks generalized muscle aches Objective Data Data 01/22/17 01/23/17 19:00 07:00 Intake Total 1350 ml 360 ml Output Total 1210 ml 200 ml Balance 140 ml 160 ml Intake Oral 600 ml 360 ml IV Total 750 ml Output Urine Total 210 ml 200 ml Hemodialysis 1000 ml # Bowel Movements 1 Vital Signs Date Time Temp Pulse Resp B/P Pulse Ox O2 Delivery O2 Flow Rate FiO2 01/23/17 08:38 Room Air 01/23/17 08:38 88 01/23/17 08:00 98.6 88 18 118/57 93 01/23/17 04:00 98.7 96 18 130/68 95 01/23/17 00:00 98.9 89 16 118/63 100 01/23/17 00:00 Room Air 01/22/17 20:35 103 01/22/17 20:00 Room Air 01/22/17 20:00 97.9 97 18 136/77 98 01/22/17 17:50 98.3 98 18 143/79 95 01/22/17 16:00 98.8 98 20 148/71 98 01/22/17 16:00 98 01/22/17 14:00 96 01/22/17 12:00 95 01/22/17 12:00 98.6 96 22 128/67 97 -: 01/22/17 0430 01/22/17 0430 Tubes & Lines: Meade Tubes & Lines Comment TLC right SC Physical Exam General Appearance: No Acute Distress, Comfortable, Anxious Eyes Eye Exam: Pupils Equal Throat Throat Exam: Oral Mucosa [place] & Moist Neck Neck Exam: Neck Supple Pulmonary Resp Exam: Clear Bilaterally, Breath Sounds Equal, No Distress, Decreased Bases Cardiology CV Exam: Regular, Normal Sinus Rhythm Gastrointestinal/Abdomen GI Exam: Soft, Non-Tender, Bowel Sounds Present Musculoskeletal MS Exam: Joints Intact, Normal Tone, Good Strength Integumentary Skin Exam: Clear, Warm, Dry, Intact Extremeties Extremities Exam: Moderate Edema Neurologic Neuro Exam: Alert, Awake, Oriented Psychiatric Psych Exam: Appropriate Responses PUD Prophylasis PUD Prophylaxis: Protonix Assessment/Plan Discussed Condition With: Patient Assessment Summary: REGAN/Acute Renal Failure, Anemia of CKD, Hypertension, Diabetes Mellitus Problem List: (1) Acute kidney failure Plan: Renal function continues to decline, etiology is uncertain due for biopsy today unlikely lupus nephritis as her complement levels are not low Allergic interstitial nephritis is on the differential, ordered 3 doses of Solumedrol empirically, final dose today Also possible ATN due to renal hypoperfusion serologies including KARLEY, ANCA, and hepatitis profile ordered, negative so far IVF still infusing, can continue follow labs, urine output, she is non oliguric, in the meantime, minimize exposure to nephrotoxins, and avoid all non essential medications medications have been reviewed HD done yesterday and 1 litre removed. No new BMP, non oliguric, follow the BMP and decide about HD. Renal Biopsy on Tuesday. (2) CKD (chronic kidney disease), stage III Plan: Due to diabetic nephropathy monitor renal function her baseline creatinine is 1.3-1.7 (3) UTI (urinary tract infection) Plan: culture reviewed, she is asymptomatic, not on antibiotics ID has evaluated remove meade (4) DKA (diabetic ketoacidoses) Plan: resolved, monitor for recurrence (5) Metabolic acidosis Plan: Resolved. monitor Problem Qualifiers (1) DKA (diabetic ketoacidoses): Racquel Horton MD Jan 23, 2017 11:16
[2017-01-23] MEDS ORDERED: INSULIN DETEMIR 100 UNITS/ML VIAL SQ SCH (12:00)
[2017-01-23] MEDS: SODIUM CHLOR 0.45% 1000 ML INJ 1,000 ML IV SCH ×2 (12:00→18:45)
[2017-01-23] MEDS ORDERED: INSULIN GLARGINE 1,000 UNITS/10 ML VIAL SQ SCH (12:57)
[2017-01-23] MEDS: MIRTAZAPINE ODT 15 MG TAB PO SCH (22:41)
[2017-01-23] MEDS: INSULIN GLARGINE 1,000 UNITS/10 ML VIAL SQ SCH (23:24)
[2017-01-24] VITALS (9 sets, daily range): BP systolic 110–155; BP diastolic 58–71; PULSE 89–94; RESP 16–18; TEMP 98.3–98.8; O2SAT 95–98
[2017-01-24] MEDS: RESP: ALBUTEROL 2.5 MG/IPRATROPIUM 0.5 MG NEB (SCH) NEB ×4 (03:55→20:10)
[2017-01-24] MEDS: CHLORHEXIDINE GLUCONATE 2 % 1 PACK (2 CLOTHS)(taper/protocol) TOPICAL SCH (04:00)
[2017-01-24] MEDS: hydrALAZINE HCL 50 MG TAB PO SCH ×3 (05:19→22:48)
[2017-01-24] MEDS: INSULIN ASPART SUPPLEMENTAL SCALE SQ SCH ×4 (05:27→22:45)
[2017-01-24] MEDS: DOCUSATE SODIUM 50 MG/SENNA 8.6 MG TAB PO SCH ×2 (09:00→21:00)
[2017-01-24] MEDS: CALCIUM CARBONATE 500 MG CHEWABLE TAB CHEW SCH ×2 (09:25→22:45)
[2017-01-24] MEDS: MUPIROCIN 2% OINT 1 APPLIC/GM SYR NASAL SCH ×2 (09:25→22:42)
[2017-01-24] MEDS: ATORVASTATIN 40 MG TAB PO SCH (09:26)
[2017-01-24] MEDS: predniSONE 20 MG TAB PO SCH (09:26)
[2017-01-24] MEDS: MULTIVITAMINS/MINERALS THERAPEUTIC TAB PO SCH (09:27)
[2017-01-24] MEDS: MEGESTROL ACETATE SUSP 400 MG/10 ML CUP PO SCH ×2 (09:27→22:46)
[2017-01-24] MEDS: PANTOPRAZOLE SOD 40 MG DELAYED RELEASE TAB PO SCH (09:27)
[2017-01-24] MEDS: OXcarbazepine 300 MG TAB PO SCH ×2 (09:27→22:49)
[2017-01-24] MEDS: guaiFENesin E.R. 600 MG TAB PO SCH ×2 (09:27→22:50)
[2017-01-24] MEDS: METOPROLOL TARTRATE 25 MG TAB PO SCH ×2 (09:27→22:47)
[2017-01-24] MEDS: ENOXAPARIN SODIUM 30 MG/0.3 ML SYRINGE SQ SCH (09:27)
[2017-01-24] MEDS: HYDROXYCHLOROQUINE SULFATE 200 MG TAB PO SCH (09:27)
[2017-01-24] MEDS: SODIUM CHLORIDE 0.9% FLUSH 10 ML FLUSH IVF SCH (09:34)
--- NOTE | 2017-01-24 10:48 | HHI.NPPN ---
Subjective General Problems: Anemia Renal Failure: Chronic, Acute Interval History Meade was removed. She is non oliguric. Has no complaints today. Renal function is better. (Eva Marcelo) Review of Systems General Constitutional: Fatigue General Remarks (Eva Marcelo) Musculoskeletal MS Remarks generalized muscle aches (Eva Marcelo) Objective Data Data 01/23/17 01/24/17 19:00 07:00 Intake Total 830 ml 480 ml Output Total 400 ml Balance 430 ml 480 ml Intake Oral 480 ml 480 ml IV Total 350 ml Output Urine Total 400 ml # Voids 2 # Bowel Movements 0 2 Vital Signs Date Time Temp Pulse Resp B/P Pulse Ox O2 Delivery O2 Flow Rate FiO2 01/24/17 09:02 97 01/24/17 08:00 98.7 94 18 130/63 96 01/24/17 04:00 98.8 89 16 155/71 95 01/24/17 00:00 98.3 94 16 131/66 95 01/23/17 21:18 96 21 01/23/17 20:26 84 01/23/17 20:00 98.7 88 18 120/56 95 01/23/17 20:00 Room Air 01/23/17 16:00 98.9 88 18 130/67 96 01/23/17 15:12 84 01/23/17 12:00 98.5 96 18 139/74 93 (Eva Marcelo) -: 01/22/17 0430 01/22/17 0430 Tubes & Lines: Vas-Cath Tubes & Lines Comment TLC right SC (Eva Marcelo) Physical Exam General Appearance: Well Developed, Well Nourished, No Acute Distress, Comfortable ( Eva Marcelo) Eyes Eye Exam: Pupils Equal (Eva Marcelo) Throat Throat Exam: Oral Mucosa [place] & Moist (Eva Marcelo) Neck Neck Exam: Neck Supple, Trachea Midline (Eva Marcelo) Pulmonary Resp Exam: Clear Bilaterally, Breath Sounds Equal, No Distress, Decreased Bases (Eva Marcelo) Cardiology CV Exam: Regular, Normal Sinus Rhythm (Eva Marcelo) Gastrointestinal/Abdomen GI Exam: Soft, Non-Tender, Bowel Sounds Present (Eva Marcelo) Musculoskeletal MS Exam: Joints Intact, Normal Tone, Good Strength (Eva Marcelo) Integumentary Skin Exam: Clear, Warm, Dry, Intact (Eva Marcelo) Extremeties Extremities Exam: Pedal Pulses Palpable, Trace Edema (Eva Marcelo) Neurologic Neuro Exam: Alert, Awake, Oriented, Speech Clear, Moving All Extremities ( Eva Marcelo) Psychiatric Psych Exam: Appropriate Responses (Eva Marcelo) PUD Prophylasis PUD Prophylaxis: Protonix (Eva Marcelo) Assessment/Plan Discussed Condition With: Patient Assessment Summary: REGAN/Acute Renal Failure, Anemia of CKD, Hypertension, Diabetes Mellitus Problem List: (1) Acute kidney failure Plan: Renal function improved suspected ATN, required dialysis was Tuesday KARLEY, ANCA, hepatitis profile are negative she is non oliguric without meade catheter cancel renal biopsy in the meantime, minimize exposure to nephrotoxins, and avoid all non essential medications she does not require additional dialysis AM labs ordered for tomorrow stop IVF as she is tolerating oral fluids 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 monitor (Eva Marcelo) Plan patient was seen and examined. Since her renal function improved, we will cancel renal biopsy. (Valdez Patterson MD) Problem Qualifiers (1) DKA (diabetic ketoacidoses): Eva Marcelo Jan 24, 2017 10:48 Valdez Patterson MD Jan 25, 2017 11:35
--- NOTE | 2017-01-24 11:28 | HHI.PR ---
Subjective Remarks Follow-up diabetes mellitus. Remains hyperglycemic refused to take prescribe Lantus. She just wants Lantus 5 units at bedtime and sliding scale. Discussed with patient and RN, will switch sliding scale to high dose. Also discussed with nephrology [employer] for renal biopsy tomorrow Objective Vitals Vital Signs Date Time Temp Pulse Resp B/P Pulse Ox O2 Delivery O2 Flow Rate FiO2 01/24/17 09:02 97 01/24/17 08:00 98.7 94 18 130/63 96 01/24/17 04:00 98.8 89 16 155/71 95 01/24/17 00:00 98.3 94 16 131/66 95 01/23/17 21:18 96 21 01/23/17 20:26 84 01/23/17 20:00 98.7 88 18 120/56 95 01/23/17 20:00 Room Air 01/23/17 16:00 98.9 88 18 130/67 96 01/23/17 15:12 84 01/23/17 12:00 98.5 96 18 139/74 93 I/O 01/23/17 01/23/17 01/23/17 01/24/17 01/24/17 01/24/17 07:00 15:00 23:00 07:00 15:00 23:00 Intake Total 120 ml 480 ml 590 ml 240 ml Output Total 100 ml 400 ml Balance 20 ml 80 ml 590 ml 240 ml Intake Oral 120 ml 480 ml 240 ml 240 ml IV Total 350 ml Output Urine Total 100 ml 400 ml # Voids 1 1 # Bowel Movements 0 0 1 1 Result Diagram: 01/22/17 0430 01/22/17 043 Objective Remarks GENERAL: Well-developed, well-nourished in no distress. SKIN: Warm and dry. EYES: Pupils equal and round. No scleral icterus. No injection or drainage. ENT: No nasal bleeding or discharge. Mucous membranes pink and moist. NECK: Trachea midline. No JVD. CARDIOVASCULAR: Regular rate and rhythm. RESPIRATORY: No accessory muscle use. Clear to auscultation. Breath sounds equal bilaterally. GASTROINTESTINAL: Abdomen soft, non-tender, nondistended. MUSCULOSKELETAL: Extremities without clubbing, cyanosis but with bilateral lower extremity pitting edema. No obvious deformities. Lipoma right upper back NEUROLOGICAL: Awake and alert. No obvious cranial nerve deficits. Motor grossly within normal limits. Five out of 5 muscle strength in the arms and legs. Normal speech. Procedures 12/03: IM Reymundo fixation right lower extremity 01/21 Vas-Cath placement A/P Problem List: (1) DM (diabetes mellitus) type I uncontrolled with renal manifestation ICD Code: E10.29 Status: Chronic (2) Seizure ICD Code: R56.9 Status: Chronic (3) Closed fracture of right tibia and fibula ICD Code: S82.201A Status: Chronic (4) Acute kidney injury superimposed on chronic kidney disease ICD Code: N17.9 Status: Acute (5) Anemia ICD Code: D64.9 Status: Acute (6) Weakness of right side of body ICD Code: M62.81 Status: Chronic (7) Lupus ICD Code: M32.9 Status: Chronic (8) UTI (urinary tract infection) ICD Code: N39.0 Status: Acute Assessment and Plan (1) DM (diabetes mellitus) type I uncontrolled with renal manifestation Hemoglobin A1c is 10.8. Hyperglycemic secondary to steroids. Patient noncompliant will only take Lantus 5 units at bedtime. Switch to high-dose sliding scale. Hypoglycemia protocol (2) Seizure Stable. Patient continues with Trileptal, Dilantin toxicity resolved (3) Closed fracture of right tibia and fibula Stable. Continue 50% wb status for now, patient on Tums to improve fracture healing, continue vitamin D s/p im reymundo of comminuted closed fracture discussed w/ Dr. Umanzor (4) Acute kidney injury superimposed on chronic kidney disease Worsening kidney function. 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 We will reattempt renal biopsy in the morning (5) Anemia appears acute on chronic transfuse as needed (6) Weakness of right side of body CVA 2013 with residual deficit RUE, stable Continue PT/OT (7) Lupus Chronic Continue Plaquenil and IV steroids (8) UTI (urinary tract infection) asymptomatic bacteriuria no tx per ID Status post CODE BLUE after receiving Versed and fentanyl for conscious sedation. She became bradycardic and hypoxic. No ACLS drugs given. Resolved. IR to adjust meds for sedation DVT prophylaxis with SCD and early ambulation. Lovenox on hold for biopsy tomorrow Discharge Planning Case discussed with orthopedic/Dr. Umanzor regarding ambulation status as patient is still NWB, now 50% weightbearing through 01/31 then wbat Problem Qualifiers (1) Closed fracture of right tibia and fibula: Ramesh Davis MD Jan 24, 2017 11:28
[2017-01-24 11:33] LABS: AUTOMATED NEUTROPHIL # 7.5 TH/MM3 (1.8-7.7); BASOPHIL % 0.2 % (0.0-2.0); HEMATOCRIT 22.5 % (35.0-46.0); HEMO FLAGS DIFF FINAL; LYMPH % 11.8 % (9.0-44.0); LYMPHOCYTE # 1.1 TH/MM3 (1.0-4.8); MEAN CELL VOLUME 90.8 FL (80.0-100.0); MEAN CORPUSCULAR HEMOGLOBIN 30.7 PG (27.0-34.0); MEAN CORPUSCULAR HGB CONC 33.8 % (32.0-36.0); MONO % 9.8 % (0.0-8.0); NEUT % 78.2 % (16.0-70.0); PLATELET COUNT 214 TH/MM3 (150-450); RED BLOOD COUNT 2.47 MIL/MM3 (4.00-5.30); WHITE BLOOD COUNT 9.6 TH/MM3 (4.0-11.0)
[2017-01-24 11:43] LABS: POTASSIUM 3.2 MEQ/L (3.5-5.1)
[2017-01-24] MEDS ORDERED: POTASSIUM CHLORIDE 20 MEQ CONTROLLED RELEASE TAB PO ONE (12:00)
[2017-01-24] MEDS: POTASSIUM PHOSPHATE/SODIUM PHOSPHATE 250 MG TAB PO SCH ×2 (17:00→22:49)
[2017-01-24] MEDS: INSULIN GLARGINE 1,000 UNITS/10 ML VIAL SQ SCH (22:44)
[2017-01-24] MEDS: MIRTAZAPINE ODT 15 MG TAB PO SCH (22:48)
[2017-01-25] VITALS (8 sets, daily range): BP systolic 119–154; BP diastolic 58–85; PULSE 89–97; RESP 16–18; TEMP 98.2–99.3; O2SAT 90–96
[2017-01-25] MEDS: CHLORHEXIDINE GLUCONATE 2 % 1 PACK (2 CLOTHS)(taper/protocol) TOPICAL SCH (04:00)
[2017-01-25] MEDS: RESP: ALBUTEROL 2.5 MG/IPRATROPIUM 0.5 MG NEB (SCH) NEB ×2 (04:49→09:32)
[2017-01-25] MEDS: hydrALAZINE HCL 50 MG TAB PO SCH ×3 (05:14→22:41)
[2017-01-25] MEDS: INSULIN ASPART SUPPLEMENTAL SCALE SQ SCH ×4 (08:00→22:38)
[2017-01-25 08:19] LABS: AUTOMATED NEUTROPHIL # 13.3 TH/MM3 (1.8-7.7); BASOPHIL # 0.1 TH/MM3 (0-0.2); BASOPHIL % 0.5 % (0.0-2.0); EOSINOPHIL % 0.1 % (0.0-4.0); HEMATOCRIT 22.6 % (35.0-46.0); HEMO FLAGS DIFF FINAL; LYMPH % 5.2 % (9.0-44.0); LYMPHOCYTE # 0.8 TH/MM3 (1.0-4.8); MEAN CELL VOLUME 91.9 FL (80.0-100.0); MEAN CORPUSCULAR HEMOGLOBIN 29.6 PG (27.0-34.0); MEAN CORPUSCULAR HGB CONC 32.2 % (32.0-36.0); MONO % 6.8 % (0.0-8.0); NEUT % 87.4 % (16.0-70.0); PLATELET COUNT 217 TH/MM3 (150-450); RED BLOOD COUNT 2.46 MIL/MM3 (4.00-5.30); RED CELL DISTRIBUTION WIDTH 15.6 % (11.6-17.2); WHITE BLOOD COUNT 15.2 TH/MM3 (4.0-11.0)
[2017-01-25] MEDS: SODIUM CHLORIDE 0.9% FLUSH 10 ML FLUSH IVF SCH (09:18)
[2017-01-25] MEDS: CALCIUM CARBONATE 500 MG CHEWABLE TAB CHEW SCH ×2 (09:18→22:40)
[2017-01-25] MEDS: MUPIROCIN 2% OINT 1 APPLIC/GM SYR NASAL SCH ×2 (09:18→22:39)
[2017-01-25] MEDS: guaiFENesin E.R. 600 MG TAB PO SCH ×2 (09:18→22:42)
[2017-01-25] MEDS: POTASSIUM PHOSPHATE/SODIUM PHOSPHATE 250 MG TAB PO SCH ×2 (09:19→22:42)
[2017-01-25] MEDS: HYDROXYCHLOROQUINE SULFATE 200 MG TAB PO SCH (09:19)
[2017-01-25] MEDS: MEGESTROL ACETATE SUSP 400 MG/10 ML CUP PO SCH ×2 (09:19→22:37)
[2017-01-25] MEDS: predniSONE 20 MG TAB PO SCH (09:19)
[2017-01-25] MEDS: ATORVASTATIN 40 MG TAB PO SCH (09:19)
[2017-01-25] MEDS: OXcarbazepine 300 MG TAB PO SCH ×2 (09:20→22:40)
[2017-01-25] MEDS: ENOXAPARIN SODIUM 30 MG/0.3 ML SYRINGE SQ SCH (09:20)
[2017-01-25] MEDS: DOCUSATE SODIUM 50 MG/SENNA 8.6 MG TAB PO SCH ×2 (09:20→21:00)
[2017-01-25] MEDS: PANTOPRAZOLE SOD 40 MG DELAYED RELEASE TAB PO SCH (09:20)
[2017-01-25] MEDS: METOPROLOL TARTRATE 25 MG TAB PO SCH ×2 (09:20→22:42)
[2017-01-25] MEDS: MULTIVITAMINS/MINERALS THERAPEUTIC TAB PO SCH (09:20)
--- NOTE | 2017-01-25 11:55 | HHI.PR ---
Subjective Remarks Follow-up diabetes mellitus. Remains hyperglycemic on steroids. Agrees to increase Lantus to 8 units twice a day. Objective Vitals Vital Signs Date Time Temp Pulse Resp B/P Pulse Ox O2 Delivery O2 Flow Rate FiO2 01/25/17 09:32 96 01/25/17 08:00 99.1 97 18 126/85 90 01/25/17 04:00 98.3 92 16 154/81 93 01/25/17 00:00 98.5 92 18 119/59 93 01/24/17 20:45 Room Air 01/24/17 20:11 96 Nasal Cannula 2.00 01/24/17 20:00 98.4 94 18 110/58 96 01/24/17 19:03 90 01/24/17 16:00 98.7 90 18 117/71 97 01/24/17 12:00 98.7 93 18 138/60 98 I/O 01/24/17 01/24/17 01/24/17 01/25/17 01/25/17 01/25/17 06:59 14:59 22:59 06:59 14:59 22:59 Intake Total 240 ml 480 ml 360 ml 240 ml Output Total 300 ml 200 ml Balance 240 ml 180 ml 160 ml 240 ml Intake Oral 240 ml 480 ml 360 ml 240 ml Output Urine Total 300 ml 200 ml # Voids 1 1 0 # Bowel Movements 1 1 0 0 Result Diagram: 01/25/17 0750 01/25/17 0750 Objective Remarks GENERAL: Well-developed, well-nourished in no distress. SKIN: Warm and dry. EYES: Pupils equal and round. No scleral icterus. No injection or drainage. ENT: No nasal bleeding or discharge. Mucous membranes pink and moist. NECK: Trachea midline. No JVD. CARDIOVASCULAR: Regular rate and rhythm. RESPIRATORY: No accessory muscle use. Clear to auscultation. Breath sounds equal bilaterally. GASTROINTESTINAL: Abdomen soft, non-tender, nondistended. MUSCULOSKELETAL: Extremities without clubbing, cyanosis but with bilateral lower extremity pitting edema. No obvious deformities. Lipoma right upper back NEUROLOGICAL: Awake and alert. No obvious cranial nerve deficits. Motor grossly within normal limits. Five out of 5 muscle strength in the arms and legs. Normal speech. Procedures 12/03: IM Reymundo fixation right lower extremity 01/21 Vas-Cath placement A/P Problem List: (1) DM (diabetes mellitus) type I uncontrolled with renal manifestation ICD Code: E10.29 Status: Chronic (2) Seizure ICD Code: R56.9 Status: Chronic (3) Closed fracture of right tibia and fibula ICD Code: S82.201A Status: Chronic (4) Acute kidney injury superimposed on chronic kidney disease ICD Code: N17.9 Status: Acute (5) Anemia ICD Code: D64.9 Status: Acute (6) Weakness of right side of body ICD Code: M62.81 Status: Chronic (7) Lupus ICD Code: M32.9 Status: Chronic (8) UTI (urinary tract infection) ICD Code: N39.0 Status: Acute Assessment and Plan (1) DM (diabetes mellitus) type I uncontrolled with renal manifestation Hemoglobin A1c is 10.8. Hyperglycemic secondary to steroids. Patient noncompliant agrees to increased Lantus to 8 units twice a day. Continue high- dose sliding scale. Hypoglycemia protocol (2) Seizure Stable. Patient continues with Trileptal, Dilantin toxicity resolved (3) Closed fracture of right tibia and fibula Stable. Continue 50% wb status for now, patient on Tums to improve fracture healing, continue vitamin D s/p im reymundo of comminuted closed fracture discussed w/ Dr. Umanzor (4) Acute kidney injury superimposed on chronic kidney disease Stable kidney function. 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 Renal biopsy has been canceled. We will monitor (5) Anemia appears acute on chronic transfuse as needed (6) Weakness of right side of body CVA 2013 with residual deficit RUE, stable Continue PT/OT (7) Lupus Chronic Continue Plaquenil and IV steroids (8) UTI (urinary tract infection) asymptomatic bacteriuria no tx per ID Status post CODE BLUE after receiving Versed and fentanyl for conscious sedation. She became bradycardic and hypoxic. No ACLS drugs given. Resolved. IR to adjust meds for sedation DVT prophylaxis with SCD and early ambulation. Restart Lovenox Discharge Planning Case discussed with orthopedic/Dr. Umanzor regarding ambulation status as patient is still NWB, now 50% weightbearing through 01/31 then wbat Problem Qualifiers (1) Closed fracture of right tibia and fibula: Ramesh Davis MD Jan 25, 2017 11:55
--- NOTE | 2017-01-25 12:28 | HHI.NPPN ---
Subjective General Problems: Anemia Renal Failure: Chronic, Acute Interval History Creatinine unchanged overnight. She is making a good amount of urine. (Eva Marcelo) Review of Systems General Constitutional: Fatigue General Remarks (Eva Marcelo) Musculoskeletal MS Remarks generalized muscle aches (Eva Marcelo) Objective Data Data 01/24/17 01/25/17 19:00 07:00 Intake Total 480 ml 600 ml Output Total 300 ml 200 ml Balance 180 ml 400 ml Intake Oral 480 ml 600 ml Output Urine Total 300 ml 200 ml # Voids 1 # Bowel Movements 1 0 Vital Signs Date Time Temp Pulse Resp B/P Pulse Ox O2 Delivery O2 Flow Rate FiO2 01/25/17 12:00 99.3 97 18 134/66 93 01/25/17 09:32 96 01/25/17 08:00 99.1 97 18 126/85 90 01/25/17 04:00 98.3 92 16 154/81 93 01/25/17 00:00 98.5 92 18 119/59 93 01/24/17 20:45 Room Air 01/24/17 20:11 96 Nasal Cannula 2.00 01/24/17 20:00 98.4 94 18 110/58 96 01/24/17 19:03 90 01/24/17 16:00 98.7 90 18 117/71 97 (Eva Marcelo) -: 01/25/17 0750 01/25/17 0750 Tubes & Lines: Vas-Cath Tubes & Lines Comment TLC right SC (Eva Marcelo) Physical Exam General Appearance: Well Developed, Well Nourished, No Acute Distress, Comfortable ( Eva Marcelo) Eyes Eye Exam: Pupils Equal (Eva Marcelo) Throat Throat Exam: Oral Mucosa [place] & Moist (Eva Marcelo) Neck Neck Exam: Neck Supple, Trachea Midline (Eva Marcelo) Pulmonary Resp Exam: Clear Bilaterally, Breath Sounds Equal, No Distress, Decreased Bases (Eva Marcelo) Cardiology CV Exam: Regular, Normal Sinus Rhythm (Eva Marcelo) Gastrointestinal/Abdomen GI Exam: Soft, Non-Tender, Bowel Sounds Present (Eva Marcelo) Musculoskeletal MS Exam: Joints Intact, Normal Tone, Good Strength (Eva Marcelo) Integumentary Skin Exam: Clear, Warm, Dry, Intact (Eva Marcelo) Extremeties Extremities Exam: Pedal Pulses Palpable, Trace Edema (Eva Marcelo) Neurologic Neuro Exam: Alert, Awake, Oriented, Speech Clear, Moving All Extremities ( Eva Marcelo) Psychiatric Psych Exam: Appropriate Responses (Eva Marcelo) PUD Prophylasis PUD Prophylaxis: Protonix (Eva Marcelo) Assessment/Plan Discussed Condition With: Patient Assessment Summary: REGAN/Acute Renal Failure, Anemia of CKD, Hypertension, Diabetes Mellitus Problem List: (1) Acute kidney failure Plan: Renal function stable suspected ATN, required one dialysis treatment on Tuesday KARLEY, ANCA, hepatitis profile are negative she is non oliguric without meade catheter biopsy was cancelled repeat renal panel daily, await renal improvement phosphorus was replaced in the meantime, minimize exposure to nephrotoxins, and avoid all non essential medications vascath in place, remove in next few days if improvement in creatinine continues off IVF AM labs ordered 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 monitor (Eva Marcelo) Plan patient was seen and examined. Renal function has not changed compared to yesterday. Will monitor. If it gets worse, will reconsider renal biopsy. ( Valdez Patterson MD) Problem Qualifiers (1) DKA (diabetic ketoacidoses): Eva Marcelo Jan 25, 2017 12:28 Valdez Patterson MD Jan 25, 2017 17:37
[2017-01-25] MEDS: INSULIN GLARGINE 1,000 UNITS/10 ML VIAL SQ SCH (22:39)
[2017-01-25] MEDS: MIRTAZAPINE ODT 15 MG TAB PO SCH (22:42)
[2017-01-26] VITALS (7 sets, daily range): BP systolic 117–147; BP diastolic 56–77; PULSE 87–98; RESP 16–20; TEMP 98.4–99.3; O2SAT 92–96
[2017-01-26] MEDS: CHLORHEXIDINE GLUCONATE 2 % 1 PACK (2 CLOTHS)(taper/protocol) TOPICAL SCH (04:00)
[2017-01-26] MEDS: hydrALAZINE HCL 50 MG TAB PO SCH ×3 (05:30→22:34)
[2017-01-26 06:38] LABS: BICARBONATE 30.5 MEQ/L (21.0-32.0); POTASSIUM 4.1 MEQ/L (3.5-5.1)
[2017-01-26] MEDS: INSULIN GLARGINE 1,000 UNITS/10 ML VIAL SQ SCH ×2 (09:00→21:00)
[2017-01-26] MEDS: SODIUM CHLORIDE 0.9% FLUSH 10 ML FLUSH IVF SCH (09:00)
[2017-01-26] MEDS: INSULIN ASPART SUPPLEMENTAL SCALE SQ SCH ×4 (09:03→23:37)
[2017-01-26] MEDS: MULTIVITAMINS/MINERALS THERAPEUTIC TAB PO SCH (09:09)
[2017-01-26] MEDS: OXcarbazepine 300 MG TAB PO SCH ×2 (09:10→22:34)
[2017-01-26] MEDS: MUPIROCIN 2% OINT 1 APPLIC/GM SYR NASAL SCH ×2 (09:10→22:35)
[2017-01-26] MEDS: DOCUSATE SODIUM 50 MG/SENNA 8.6 MG TAB PO SCH ×2 (09:10→21:00)
[2017-01-26] MEDS: CALCIUM CARBONATE 500 MG CHEWABLE TAB CHEW SCH ×2 (09:10→22:34)
[2017-01-26] MEDS: PANTOPRAZOLE SOD 40 MG DELAYED RELEASE TAB PO SCH (09:10)
[2017-01-26] MEDS: guaiFENesin E.R. 600 MG TAB PO SCH ×2 (09:10→22:34)
[2017-01-26] MEDS: METOPROLOL TARTRATE 25 MG TAB PO SCH ×2 (09:11→22:35)
[2017-01-26] MEDS: POTASSIUM PHOSPHATE/SODIUM PHOSPHATE 250 MG TAB PO SCH ×2 (09:11→22:34)
[2017-01-26] MEDS: ATORVASTATIN 40 MG TAB PO SCH (09:11)
[2017-01-26] MEDS: MEGESTROL ACETATE SUSP 400 MG/10 ML CUP PO SCH ×2 (09:11→22:32)
[2017-01-26] MEDS: HYDROXYCHLOROQUINE SULFATE 200 MG TAB PO SCH (09:11)
[2017-01-26] MEDS: predniSONE 20 MG TAB PO SCH (09:11)
[2017-01-26] MEDS: ENOXAPARIN SODIUM 30 MG/0.3 ML SYRINGE SQ SCH (09:17)
--- NOTE | 2017-01-26 14:30 | HHI.NPPN ---
Subjective General Problems: Anemia Renal Failure: Chronic, Acute Interval History Creatinine is better today. Family at bedside. She is getting out of bed to use the bedside commode. Non oliguric. (Eva Marcelo) Review of Systems General Constitutional: Fatigue General Remarks (Eva Marcelo) Musculoskeletal MS Remarks generalized muscle aches (Eva Marcelo) Objective Data Data 01/25/17 01/26/17 19:00 07:00 Intake Total 480 ml 600 ml Output Total 200 ml Balance 280 ml 600 ml Intake Oral 480 ml 600 ml Output Urine Total 200 ml # Voids 3 # Bowel Movements 1 1 Vital Signs Date Time Temp Pulse Resp B/P Pulse Ox O2 Delivery O2 Flow Rate FiO2 01/26/17 08:00 98.4 91 20 147/62 92 01/26/17 04:00 98.6 91 16 126/58 92 01/26/17 00:00 99.1 98 16 128/60 95 01/25/17 21:00 Room Air 01/25/17 20:00 89 01/25/17 20:00 98.2 93 18 139/71 95 01/25/17 19:08 93 Room Air 01/25/17 16:00 98.2 91 18 122/58 93 (Eva Marcelo) -: 01/25/17 0750 01/26/17 0545 Tubes & Lines: Vas-Cath Tubes & Lines Comment TLC right SC (Eva Marcelo) Physical Exam General Appearance: Well Developed, Well Nourished, No Acute Distress, Comfortable ( Eva Marcelo) Eyes Eye Exam: Pupils Equal (Eva Marcelo) Throat Throat Exam: Oral Mucosa [place] & Moist (Eva Marcelo) Neck Neck Exam: Neck Supple, Trachea Midline (Eva Marcelo) Pulmonary Resp Exam: Clear Bilaterally, Breath Sounds Equal, No Distress, Decreased Bases (Eva Marcelo) Cardiology CV Exam: Regular, Normal Sinus Rhythm (Eva Marcelo) Gastrointestinal/Abdomen GI Exam: Soft, Non-Tender, Bowel Sounds Present (Eva Marcelo) Musculoskeletal MS Exam: Joints Intact, Normal Tone, Good Strength (Eva Marcelo) Integumentary Skin Exam: Clear, Warm, Dry, Intact (Eva Marcelo) Extremeties Extremities Exam: Pedal Pulses Palpable, Trace Edema (Eva Marcelo) Neurologic Neuro Exam: Alert, Awake, Oriented, Speech Clear, Moving All Extremities ( Eva Marcelo) Psychiatric Psych Exam: Appropriate Responses (Eva Marcelo) PUD Prophylasis PUD Prophylaxis: Protonix (Eva Marcelo) Assessment/Plan Discussed Condition With: Patient Assessment Summary: REGAN/Acute Renal Failure, Anemia of CKD, Hypertension, Diabetes Mellitus Problem List: (1) Acute kidney failure Plan: REGAN on CKD 3 She required hemodialysis for one treatment last week Since then her renal function has improved but not as fast as we anticipated being treated for AIN with prednisone taper, other differential of resolving ATN if creatinine is over 3 tomorrow we will proceed with a renal biopsy Tuesday KARLEY, ANCA, hepatitis profile are negative she is non oliguric without meade catheter continue to replace phosphorus in the meantime, minimize exposure to nephrotoxins, and avoid all non essential medications vascath in place off IVF renal panel in AM (2) CKD (chronic kidney disease), stage III Plan: Due to diabetic nephropathy monitor renal function her baseline creatinine is 1.3-1.7 (3) UTI (urinary tract infection) Plan: culture reviewed, she is asymptomatic, not on antibiotics ID has evaluated meade has been removed (4) DKA (diabetic ketoacidoses) Plan: resolved, monitor for recurrence (5) Metabolic acidosis Plan: Resolved. monitor Plan consider placing peripheral IV and remove central line (Eva Marcelo ) Plan patient was seen and examined. Renal function is slowly improving. Serologies negative so far. If renal function declines, will reconsider renal biopsy. Discussed at length with patient and her mother at the bedside. (Valdez Patterson MD) Problem Qualifiers (1) DKA (diabetic ketoacidoses): Eva Marcelo Jan 26, 2017 14:30 Valdez Patterson MD Jan 26, 2017 18:24
--- NOTE | 2017-01-26 15:47 | HHI.PR ---
Subjective Remarks Follow-up acute kidney injury and diabetes mellitus. She is voiding. She has been compliant with Lantus. Improving hyperglycemia. She does not want to go back to [place] Objective Vitals Vital Signs Date Time Temp Pulse Resp B/P Pulse Ox O2 Delivery O2 Flow Rate FiO2 01/26/17 08:00 98.4 91 20 147/62 92 01/26/17 04:00 98.6 91 16 126/58 92 01/26/17 00:00 99.1 98 16 128/60 95 01/25/17 21:00 Room Air 01/25/17 20:00 89 01/25/17 20:00 98.2 93 18 139/71 95 01/25/17 19:08 93 Room Air 01/25/17 16:00 98.2 91 18 122/58 93 I/O 01/25/17 01/25/17 01/25/17 01/26/17 01/26/17 01/26/17 07:00 15:00 23:00 07:00 15:00 23:00 Intake Total 240 ml 480 ml 360 ml 240 ml Output Total 200 ml Balance 240 ml 280 ml 360 ml 240 ml Intake Oral 240 ml 480 ml 360 ml 240 ml Output Urine Total 200 ml # Voids 0 2 1 # Bowel Movements 0 1 1 0 Result Diagram: 01/25/17 0750 01/26/17 0545 Objective Remarks GENERAL: Well-developed, well-nourished in no distress. SKIN: Warm and dry. EYES: Pupils equal and round. No scleral icterus. No injection or drainage. ENT: No nasal bleeding or discharge. Mucous membranes pink and moist. NECK: Trachea midline. No JVD. CARDIOVASCULAR: Regular rate and rhythm. RESPIRATORY: No accessory muscle use. Clear to auscultation. Breath sounds equal bilaterally. GASTROINTESTINAL: Abdomen soft, non-tender, nondistended. MUSCULOSKELETAL: Extremities without clubbing, cyanosis but with bilateral lower extremity pitting edema. No obvious deformities. Lipoma right upper back NEUROLOGICAL: Awake and alert. No obvious cranial nerve deficits. Motor grossly within normal limits. Five out of 5 muscle strength in the arms and legs. Normal speech. Procedures 12/03: IM Reymundo fixation right lower extremity 01/21 Vas-Cath placement A/P Problem List: (1) DM (diabetes mellitus) type I uncontrolled with renal manifestation ICD Code: E10.29 Status: Chronic (2) Seizure ICD Code: R56.9 Status: Chronic (3) Closed fracture of right tibia and fibula ICD Code: S82.201A Status: Chronic (4) Acute kidney injury superimposed on chronic kidney disease ICD Code: N17.9 Status: Acute (5) Anemia ICD Code: D64.9 Status: Acute (6) Weakness of right side of body ICD Code: M62.81 Status: Chronic (7) Lupus ICD Code: M32.9 Status: Chronic (8) UTI (urinary tract infection) ICD Code: N39.0 Status: Acute Assessment and Plan (1) DM (diabetes mellitus) type I uncontrolled with renal manifestation Hemoglobin A1c is 10.8. Hyperglycemic secondary to steroids. Improving Lantus 8 units twice a day. Continue high-dose sliding scale. Hypoglycemia protocol. Patient noncompliant (2) Seizure Stable. Patient continues with Trileptal, Dilantin toxicity resolved (3) Closed fracture of right tibia and fibula Stable. Continue 50% wb status for now, patient on Tums to improve fracture healing, continue vitamin D s/p im reymundo of comminuted closed fracture discussed w/ Dr. Umanzor (4) Acute kidney injury superimposed on chronic kidney disease Stable kidney function. 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 Nephrology plans to proceed with renal biopsy if creatinine remains over 3. We will monitor (5) Anemia appears acute on chronic transfuse as needed (6) Weakness of right side of body CVA 2013 with residual deficit RUE, stable Continue PT/OT (7) Lupus Chronic Continue Plaquenil and IV steroids (8) UTI (urinary tract infection) asymptomatic bacteriuria no tx per ID Status post CODE BLUE after receiving Versed and fentanyl for conscious sedation. She became bradycardic and hypoxic. No ACLS drugs given. Resolved. IR to adjust meds for sedation DVT prophylaxis with SCD and early ambulation. Restart Lovenox Discharge Planning Not a safe discharge to home at this time. No payor source for rehabilitation Problem Qualifiers (1) Closed fracture of right tibia and fibula: Ramesh Davis MD Jan 26, 2017 15:47
[2017-01-26] MEDS: MIRTAZAPINE ODT 15 MG TAB PO SCH (22:34)
[2017-01-27] VITALS (9 sets, daily range): BP systolic 133–158; BP diastolic 60–81; PULSE 91–100; RESP 16–18; TEMP 98.3–98.9; O2SAT 93–98
[2017-01-27] MEDS: CHLORHEXIDINE GLUCONATE 2 % 1 PACK (2 CLOTHS)(taper/protocol) TOPICAL SCH (03:28)
[2017-01-27] MEDS: hydrALAZINE HCL 50 MG TAB PO SCH ×3 (06:53→21:13)
[2017-01-27 07:39] LABS: BICARBONATE 30.4 MEQ/L (21.0-32.0); POTASSIUM 4.2 MEQ/L (3.5-5.1)
[2017-01-27] MEDS: INSULIN ASPART SUPPLEMENTAL SCALE SQ SCH ×4 (08:36→21:26)
[2017-01-27] MEDS: INSULIN GLARGINE 1,000 UNITS/10 ML VIAL SQ SCH ×2 (08:36→21:00)
--- NOTE | 2017-01-27 08:37 | HHI.NPPN ---
Subjective General Problems: Anemia Renal Failure: Chronic, Acute Interval History doing well except for weakness. Good urine output. Review of Systems General Constitutional: Fatigue General Remarks Musculoskeletal MS Remarks generalized muscle aches Objective Data Data 01/26/17 01/27/17 18:59 06:59 Intake Total 480 ml 830 ml Output Total 400 ml Balance 480 ml 430 ml Intake Oral 480 ml 830 ml IV Total 0 ml Output Urine Total 400 ml # Voids 1 2 # Bowel Movements 1 Vital Signs Date Time Temp Pulse Resp B/P Pulse Ox O2 Delivery O2 Flow Rate FiO2 01/27/17 04:00 98.5 95 18 143/60 94 01/27/17 00:00 98.6 91 18 137/79 96 01/26/17 22:01 94 01/26/17 20:00 98.7 90 18 136/77 96 01/26/17 20:00 87 01/26/17 20:00 96 Room Air 01/26/17 16:00 99.3 93 20 121/56 93 01/26/17 12:00 98.8 92 20 117/56 93 -: 01/25/17 0750 01/27/17 0600 Tubes & Lines: Vas-Cath Tubes & Lines Comment TLC right SC Physical Exam General Appearance: Well Developed, Well Nourished, No Acute Distress, Comfortable Eyes Eye Exam: Pupils Equal Throat Throat Exam: Oral Mucosa [place] & Moist Neck Neck Exam: Neck Supple, Trachea Midline Pulmonary Resp Exam: Clear Bilaterally, Breath Sounds Equal, No Distress, Decreased Bases Cardiology CV Exam: Regular, Normal Sinus Rhythm Gastrointestinal/Abdomen GI Exam: Soft, Non-Tender, Bowel Sounds Present Musculoskeletal MS Exam: Joints Intact, Normal Tone, Good Strength Integumentary Skin Exam: Clear, Warm, Dry, Intact Extremeties Extremities Exam: Pedal Pulses Palpable, Trace Edema Neurologic Neuro Exam: Alert, Awake, Oriented, Speech Clear, Moving All Extremities Psychiatric Psych Exam: Appropriate Responses PUD Prophylasis PUD Prophylaxis: Protonix Assessment/Plan Discussed Condition With: Patient Assessment Summary: REGAN/Acute Renal Failure, Anemia of CKD, Hypertension, Diabetes Mellitus Problem List: (1) Acute kidney failure Plan: REGAN on CKD 3 Renal function is improving. Taper off steroid: changed to 30 mg PO daily. Serologies negative. No need for dialysis. Remove Vascath. Suggest to remove Central line as well. She can be discharged from renal standpoint. Outpatient followup in 2-3 weeks. Taper off Steroid over a period of 2 weeks. (2) CKD (chronic kidney disease), stage III Plan: Due to diabetic nephropathy monitor renal function her baseline creatinine is 1.3-1.7 (3) UTI (urinary tract infection) Plan: culture reviewed, she is asymptomatic, not on antibiotics ID has evaluated meade has been removed (4) DKA (diabetic ketoacidoses) Plan: resolved, monitor for recurrence (5) Metabolic acidosis Plan: Resolved. monitor Problem Qualifiers (1) DKA (diabetic ketoacidoses): Valdez Patterson MD Jan 27, 2017 08:37
[2017-01-27] MEDS: ENOXAPARIN SODIUM 30 MG/0.3 ML SYRINGE SQ SCH (08:40)
[2017-01-27] MEDS: MEGESTROL ACETATE SUSP 400 MG/10 ML CUP PO SCH ×2 (08:40→21:12)
[2017-01-27] MEDS: CALCIUM CARBONATE 500 MG CHEWABLE TAB CHEW SCH ×2 (08:41→21:12)
[2017-01-27] MEDS: POTASSIUM PHOSPHATE/SODIUM PHOSPHATE 250 MG TAB PO SCH ×2 (08:41→21:11)
[2017-01-27] MEDS: METOPROLOL TARTRATE 25 MG TAB PO SCH ×2 (08:41→21:12)
[2017-01-27] MEDS: OXcarbazepine 300 MG TAB PO SCH ×2 (08:41→21:13)
[2017-01-27] MEDS: ATORVASTATIN 40 MG TAB PO SCH (08:41)
[2017-01-27] MEDS: HYDROXYCHLOROQUINE SULFATE 200 MG TAB PO SCH (08:41)
[2017-01-27] MEDS: MULTIVITAMINS/MINERALS THERAPEUTIC TAB PO SCH (08:41)
[2017-01-27] MEDS: guaiFENesin E.R. 600 MG TAB PO SCH ×2 (08:41→21:12)
[2017-01-27] MEDS: ERGOCALCIFEROL (VIT D2) 50,000 UNIT CAP PO SCH (08:42)
[2017-01-27] MEDS: SODIUM CHLORIDE 0.9% FLUSH 10 ML FLUSH IVF SCH (08:42)
[2017-01-27] MEDS: DOCUSATE SODIUM 50 MG/SENNA 8.6 MG TAB PO SCH ×2 (08:42→21:00)
[2017-01-27] MEDS: PANTOPRAZOLE SOD 40 MG DELAYED RELEASE TAB PO SCH (08:42)
[2017-01-27] MEDS: MUPIROCIN 2% OINT 1 APPLIC/GM SYR NASAL SCH ×2 (08:42→21:11)
[2017-01-27] MEDS: predniSONE 20 MG TAB PO SCH (08:53)
--- NOTE | 2017-01-27 13:01 | HHI.HCPN ---
Reason for visit a. To assist with evaluation and management of symptoms including:nausea; tremor vs seizures; aletered mental status b. To assist medical decision maker(s) with: better understanding of current medical conditions; weighing benefits/burdens of medical treatment options; making medical treatment decisions. . Subjective/Interval History Pt continues to be weak, but denies any pain on my visit. Alert, and answer questions appropriately. Renal following, and it appears renal function improving, derologies negative, and that there is no need for diaysis. Vascath removed. Reviewed goals of care, and she wants to continue aggressive care, "for my son. " Pt has a 16 year old son. I told her if that is the case, then you need to be compliant with her medications. Family/friend interactions none at bedside. Advance Directives Health Care Surrogate: Copy in medical record (completed 12/27/2016) Advance Directive Specifics Health Care Surrogate(s): The patient's designated health care surrogate is her Boyd Jewell The first alternate is the patient's Penny Jewell A second alternate is the patient's ex -- Mary Bain. . Documented care wishes: No written documentation of health care preferences/wishes/goals . Objective Vital Signs Date Time Temp Pulse Resp B/P Pulse Ox O2 Delivery O2 Flow Rate FiO2 01/27/17 04:00 98.5 95 18 143/60 94 01/27/17 00:00 98.6 91 18 137/79 96 01/26/17 22:01 94 01/26/17 20:00 98.7 90 18 136/77 96 01/26/17 20:00 87 01/26/17 20:00 96 Room Air 01/26/17 16:00 99.3 93 20 121/56 93 Intake & Output 01/27/17 01/27/17 07:00 19:00 Intake Total 830 ml Output Total 400 ml Balance 430 ml Intake Oral 830 ml Output Urine Total 400 ml # Voids 2 Physical Exam CONSTITUTIONAL/GENERAL: This is an adequately nourished female. She is lethargic and verbally slow, but is able to answer simple questions and is in no acute distress. SKIN: No jaundice, rashes, or lesions. No wounds seen anteriorly. Skin temperature appropriate. Not diaphoretic. HEAD: Atraumatic. Normocephalic. EYES: Pupils equal and round. Extraocular motions intact. No scleral icterus. No injection or drainage. Fundi not examined. ENT: Hearing grossly normal. Nose without bleeding or purulent drainage. Throat without visible erythema, exudates, masses, or lesions. NECK: Trachea midline. CARDIOVASCULAR: Regular rate and rhythm without murmurs, gallops, or rubs. No JVD. RESPIRATORY/CHEST: Symmetric, unlabored respirations. Clear to auscultation. Breath sounds equal bilaterally. No wheezes, rales, or rhonchi. GASTROINTESTINAL: Abdomen soft, non-tender, nondistended. No hepato-splenomegaly , or palpable masses. No guarding. Bowel sounds present. GENITOURINARY: Without palpable bladder distension. Maurer catheter in place. MUSCULOSKELETAL: Extremities without clubbing, cyanosis, or edema. No mottling. LYMPHATICS: Not examined NEUROLOGICAL: No tremors or seizure activity noted during my visit. Answers questions, but appears cognitively slow. Moves all extremities. PSYCHIATRIC: Unable to assess due to level of responsiveness. . Diagnostic Tests Laboratory Laboratory Tests Test 01/25/17 01/26/17 01/27/17 07:50 05:45 06:00 White Blood Count 15.2 TH/MM3 (4.0-11.0) Red Blood Count 2.46 MIL/MM3 (4.00-5.30) Hemoglobin 7.3 GM/DL (11.6-15.3) Hematocrit 22.6 % (35.0-46.0) Mean Corpuscular Volume 91.9 FL (80.0-100.0) Mean Corpuscular Hemoglobin 29.6 PG (27.0-34.0) Mean Corpuscular Hemoglobin 32.2 % Concent (32.0-36.0) Red Cell Distribution Width 15.6 % (11.6-17.2) Platelet Count 217 TH/MM3 (150-450) Mean Platelet Volume 9.6 FL (7.0-11.0) Neutrophils (%) (Auto) 87.4 % (16.0-70.0) Lymphocytes (%) (Auto) 5.2 % (9.0-44.0) Monocytes (%) (Auto) 6.8 % (0.0-8.0) Eosinophils (%) (Auto) 0.1 % (0.0-4.0) Basophils (%) (Auto) 0.5 % (0.0-2.0) Neutrophils # (Auto) 13.3 TH/MM3 (1.8-7.7) Lymphocytes # (Auto) 0.8 TH/MM3 (1.0-4.8) Monocytes # (Auto) 1.0 TH/MM3 (0-0.9) Eosinophils # (Auto) 0.0 TH/MM3 (0-0.4) Basophils # (Auto) 0.1 TH/MM3 (0-0.2) CBC Comment DIFF FINAL Differential Comment Sodium Level 140 MEQ/L 140 MEQ/L 143 MEQ/L (136-145) (136-145) (136-145) Potassium Level 4.0 MEQ/L 4.1 MEQ/L 4.2 MEQ/L (3.5-5.1) (3.5-5.1) (3.5-5.1) Chloride Level 105 MEQ/L 105 MEQ/L 106 MEQ/L (98-107) (98-107) (98-107) Carbon Dioxide Level 30.0 MEQ/L 30.5 MEQ/L 30.4 MEQ/L (21.0-32.0) (21.0-32.0) (21.0-32.0) Anion Gap 5 MEQ/L (5-15) 5 MEQ/L (5-15) 7 MEQ/L (5-15) Blood Urea Nitrogen 34 MG/DL (7-18) 39 MG/DL (7-18) 43 MG/DL (7-18) Creatinine 3.07 MG/DL 3.03 MG/DL 2.74 MG/DL (0.50-1.00) (0.50-1.00) (0.50-1.00) Estimat Glomerular Filtration 20 ML/MIN (>89) 20 ML/MIN (>89) 22 ML/MIN (>89) Rate Random Glucose 279 MG/DL 320 MG/DL 213 MG/DL (74-106) (74-106) (74-106) Calcium Level 7.8 MG/DL 7.6 MG/DL 7.8 MG/DL (8.5-10.1) (8.5-10.1) (8.5-10.1) Phosphorus Level 1.8 MG/DL 2.2 MG/DL 2.2 MG/DL (2.5-4.9) (2.5-4.9) (2.5-4.9) Albumin 2.0 GM/DL 1.9 GM/DL 2.0 GM/DL (3.4-5.0) (3.4-5.0) (3.4-5.0) Result Diagram: 01/25/17 0750 01/27/17 0600 Procedures * Intramedullary yuri fixation right lower extremity fracture on 12/03/16 . Assessment and Plan Disease Oriented Problem List: (1) Closed fracture of right tibia and fibula Comment: Repaired on 12/03/16 with intramedullary yuri fixation (2) Anemia (3) Lupus (4) DM (diabetes mellitus), type 1 with hyperosmolarity (5) CKD (chronic kidney disease), stage III Comment: Renal function now declining. . (6) Seizure disorder Comment: Has reported long-term seizure disorder. Now with new tremor. Unclear if this is pseudoseizure, part of catatonia, medication reaction, etc. (7) Acute encephalopathy Comment: Patient has been having similar "spells" per family for 5-6 years and the etiology is uncertain. Spells have been more frequent and lasting longer of late. . (8) Acidosis Comment: Uncertain etiology. Given blood sugars are reasonably well controlled , this may be from starvation. . Symptom Scale: (1) Nausea 0-10 Scale: 0 (had it earlier.) Comment: Appears resolved. . (2) Decrease in appetite 0-10 Scale: Unable to quantify Comment: Hardly eating/drinking anything as part of this "spell" of altered mental status. . Pertinent Non-Medical Issues Psychosocial: Normally lives with her son and cares for herself. Spiritual: Bah[employer] Legal: Father is her designated health care surrogate. Ethical issues impacting care: Patient is incapacitated. She will probably regain capacity. Father is her health care surrogate. . Important Contacts Kevin Jewell (father and Primary HCS) [phone] ( home) [phone] (cell) Harriet Jewell (mother and 1st Alternate HCS) [phone] (home ) Liliya bain(ex and 2nd alternate HCS) [phone] . Prognosis Patient is a 46-year-old female with a past medical history significant for diabetes (poorly controlled, prior multiple admission for DKA), hypertension, asthma, CKD stage III, strokes 2014 (with residual deficit right upper extremity ), seizure, and lupus. Pt came in with right ankle fracture which was repaired surgically. Had ICU stay due to respiratory distress thought to be narcotic related, and anemia (thought to be ckd or anemia of chronic disease). Per family, patient has had increasingly frequent spells of being nonverbal, not eating/drinking that normally last 2-3 days. Cause of these spells remains unclear -- phenytoin toxicity? catatonia? . . Code Status: Full Code Plan == Code Stats -- FULL CODE == Decision making: Has capacity to make medical decision on my visit. == Goals of medical treatment. Continue aggressive care. Not ready to transition to comfort measures. Father's goals of care had also been aggressive. == Pain: Does not appear to be currently an issue. No opiates are currently ordered. No further recommendations at this time == Nausea/vomiting: Currently controlled. == Palliative Care will continue to follow to assist with symptom management and to clarify goals of medical treatment as the clincal course evolves. . Attestation To help prompt me to consider important information that might be impacting today's encounter and assessment, information from prior notes written by myself or my colleagues may have been "brought forward" into today's note. My signature on this note, however, is an attestation that I personally performed the exam, history, and/or decision-making noted today, and, unless otherwise indicated, the interactions with patient, family, and staff as well as the review of records all occurred today. I also attest that the listed assessment and stated plan reflect my best clinical judgment today based on the combination of historical information, prior notes, and today's exam/ interactions. When time spent is documented, it refers only to time spent today by the signer, or if indicated, combined time spent today by collaborating physician/nurse practitioner. Davey Wu MD Jan 27, 2017 13:01
--- NOTE | 2017-01-27 13:20 | HHI.PR ---
Subjective Remarks Improvement in renal function today. The improvements may be a benefit from steroids. Lupus could be contributory to her ARF. No new complaints from the patient. She does not complain of joint pain, rash, or GI symptoms. Objective Vital Signs Date Time Temp Pulse Resp B/P Pulse Ox O2 Delivery O2 Flow Rate FiO2 01/27/17 04:00 98.5 95 18 143/60 94 01/27/17 00:00 98.6 91 18 137/79 96 01/26/17 22:01 94 01/26/17 20:00 98.7 90 18 136/77 96 01/26/17 20:00 87 01/26/17 20:00 96 Room Air 01/26/17 16:00 99.3 93 20 121/56 93 I/O 01/26/17 01/26/17 01/26/17 01/27/17 01/27/17 01/27/17 07:00 15:00 23:00 07:00 15:00 23:00 Intake Total 240 ml 480 ml 590 ml 240 ml Output Total 400 ml Balance 240 ml 480 ml 190 ml 240 ml Intake Oral 240 ml 480 ml 590 ml 240 ml IV Total 0 ml Output Urine Total 400 ml # Voids 1 1 2 # Bowel Movements 0 1 Result Diagram: 01/25/17 0750 01/27/17 0600 Objective Remarks GENERAL: NAD, A&Ox3 HEAD: Normocephalic. NECK: Supple, trachea midline. No lymphadenopathy. EYES: No scleral icterus. No injection or drainage. CARDIOVASCULAR: Regular rate and rhythm without murmurs, gallops, or rubs. RESPIRATORY: Breath sounds equal bilaterally. No accessory muscle use. GASTROINTESTINAL: Abdomen soft, non-tender, nondistended. MUSCULOSKELETAL: No cyanosis, or edema. SKIN: Warm and dry. NEURO: No focal neurological deficitis. A/P Problem List: (1) CKD (chronic kidney disease), stage III ICD Code: N18.3 (2) DM (diabetes mellitus) type I uncontrolled with renal manifestation ICD Code: E10.29 (3) G6P deficiency (ithssne-[id number] deficiency) ICD Code: E74.01 (4) Lupus ICD Code: M32.9 (5) Acute renal failure (ARF) ICD Code: N17.9 (6) Lupus (systemic lupus erythematosus) ICD Code: M32.9 Assessment and Plan Assessment and plan 46-year-old female with lupus, admitted secondary to tib-fib fracture with recent acute renal failure. Acute renal failure Chronic kidney disease stage III Renal function has improved today Etiology may be related to lupus exacerbation Continue steroids Continue to follow renal function Dialysis if needed Diabetes mellitus type 2 Steroids may cause hyperglycemia, but despite this steroids might be more beneficial this point Follow blood sugars Adjust Lantus if needed High-dose sliding scale Diabetic diet Follow blood sugars Lupus Continue Plaquenil Continue steroids Seizure No recent activity Continue Trileptal Closed right tib-fib fracture Continue PT Patient had intramedullary yuri for treatment Continue vitamin D Anemia Stable Follow CBC for any changes Cardiopulmonary arrest Resolved Event occurred Status post CODE BLUE after receiving Versed and fentanyl for conscious sedation. She became bradycardic and hypoxic. No ACLS drugs given. Resolved. IR to adjust meds for sedation History of CVA Chronic right hemiplegia Supportive care Follow clinically Continue PT and OT DVT prophylaxis SCDs and Lovenox Discharge Planning Not stable for discharge at this point No payor source for rehabilitation Umesh Pandya MD Jan 27, 2017 1:20 pm
[2017-01-27] MEDS: MIRTAZAPINE ODT 15 MG TAB PO SCH (21:12)
[2017-01-28] VITALS (8 sets, daily range): BP systolic 100–135; BP diastolic 55–69; PULSE 89–96; RESP 16–20; TEMP 98.4–99.2; O2SAT 90–96
[2017-01-28] MEDS: hydrALAZINE HCL 50 MG TAB PO SCH ×3 (06:36→23:10)
[2017-01-28] MEDS: SODIUM CHLORIDE 0.9% FLUSH 10 ML FLUSH IVF SCH (09:00)
[2017-01-28] MEDS: CALCIUM CARBONATE 500 MG CHEWABLE TAB CHEW SCH ×2 (09:18→23:10)
[2017-01-28] MEDS: PANTOPRAZOLE SOD 40 MG DELAYED RELEASE TAB PO SCH (09:19)
[2017-01-28] MEDS: METOPROLOL TARTRATE 25 MG TAB PO SCH ×2 (09:20→23:15)
[2017-01-28] MEDS: predniSONE 20 MG TAB PO SCH (09:20)
[2017-01-28] MEDS: guaiFENesin E.R. 600 MG TAB PO SCH ×2 (09:20→23:10)
[2017-01-28] MEDS: POTASSIUM PHOSPHATE/SODIUM PHOSPHATE 250 MG TAB PO SCH ×2 (09:21→23:10)
[2017-01-28] MEDS: HYDROXYCHLOROQUINE SULFATE 200 MG TAB PO SCH (09:21)
[2017-01-28] MEDS: OXcarbazepine 300 MG TAB PO SCH ×2 (09:21→23:14)
[2017-01-28] MEDS: ATORVASTATIN 40 MG TAB PO SCH (09:22)
[2017-01-28] MEDS: MULTIVITAMINS/MINERALS THERAPEUTIC TAB PO SCH (09:22)
[2017-01-28] MEDS: MEGESTROL ACETATE SUSP 400 MG/10 ML CUP PO SCH ×2 (09:22→23:15)
[2017-01-28] MEDS: DOCUSATE SODIUM 50 MG/SENNA 8.6 MG TAB PO SCH ×2 (09:22→21:00)
[2017-01-28] MEDS: ENOXAPARIN SODIUM 30 MG/0.3 ML SYRINGE SQ SCH (09:23)
[2017-01-28] MEDS: MUPIROCIN 2% OINT 1 APPLIC/GM SYR NASAL SCH ×2 (09:25→21:00)
[2017-01-28] MEDS: INSULIN ASPART SUPPLEMENTAL SCALE SQ SCH ×4 (09:25→23:13)
[2017-01-28] MEDS: INSULIN GLARGINE 1,000 UNITS/10 ML VIAL SQ SCH ×2 (09:28→21:00)
--- NOTE | 2017-01-28 12:43 | HHI.NPPN ---
Subjective General Problems: Anemia Renal Failure: Chronic, Acute Interval History Vascath and central line have been removed. She wants to be discharged. Refused AM labs. (Eva Marcelo) Review of Systems General Constitutional: Fatigue General Remarks (Eva Marcelo) Musculoskeletal MS Remarks generalized muscle aches (Eva Marcelo) Objective Data Data 01/27/17 01/28/17 19:00 07:00 Intake Total 600 ml 480 ml Output Total 200 ml 300 ml Balance 400 ml 180 ml Intake Oral 600 ml 480 ml Output Urine Total 200 ml 300 ml # Voids 1 # Bowel Movements 0 2 Vital Signs Date Time Temp Pulse Resp B/P Pulse Ox O2 Delivery O2 Flow Rate FiO2 01/28/17 11:36 94 21 01/28/17 08:00 99.0 96 18 130/65 93 01/28/17 04:00 98.4 96 20 118/59 91 01/28/17 00:00 98.8 95 18 132/60 95 01/27/17 20:15 100 01/27/17 20:15 96 Room Air 01/27/17 20:00 98.9 97 18 133/66 96 01/27/17 17:41 98 01/27/17 16:00 98.4 98 16 136/65 93 01/27/17 14:32 94 (Eva Marcelo) -: 01/25/17 0750 01/27/17 0600 Tubes & Lines: Vas-Cath Tubes & Lines Comment TLC right SC (Eva Marcelo) Physical Exam General Appearance: Well Developed, Well Nourished, No Acute Distress, Comfortable ( Eva Marcelo) Eyes Eye Exam: Pupils Equal (Eva Marcelo) Throat Throat Exam: Oral Mucosa [place] & Moist (Eva Marcelo) Neck Neck Exam: Neck Supple, Trachea Midline (Eva Marcelo) Pulmonary Resp Exam: Clear Bilaterally, Breath Sounds Equal, No Distress, Decreased Bases (Eva Marcelo) Cardiology CV Exam: Regular, Normal Sinus Rhythm (Eva Marcelo) Gastrointestinal/Abdomen GI Exam: Soft, Non-Tender, Bowel Sounds Present (Eva Marcelo) Musculoskeletal MS Exam: Joints Intact, Normal Tone, Good Strength (Eva Marcelo) Integumentary Skin Exam: Clear, Warm, Dry, Intact (Eva Marcelo) Extremeties Extremities Exam: Pedal Pulses Palpable, Trace Edema (Eva Marcelo) Neurologic Neuro Exam: Alert, Awake, Oriented, Speech Clear, Moving All Extremities ( Eva Marcelo) Psychiatric Psych Exam: Appropriate Responses (Eva Marcelo) PUD Prophylasis PUD Prophylaxis: Protonix (Eva Marcelo) Assessment/Plan Discussed Condition With: Patient Assessment Summary: REGAN/Acute Renal Failure, Anemia of CKD, Hypertension, Diabetes Mellitus Problem List: (1) Acute kidney failure Plan: REGAN on CKD 3. She required one HD treatment on 01/22 Renal function has improved; she is non oliguric refused today's labs vascath has been removed. Taper off steroid: changed to 30 mg PO daily. Please taper off over a 2 week period we will follow outpatient, can be discharged from renal standpoint (2) CKD (chronic kidney disease), stage III Plan: Due to diabetic nephropathy monitor renal function her baseline creatinine is 1.3-1.7 (3) UTI (urinary tract infection) Plan: culture reviewed, she is asymptomatic, not on antibiotics ID has evaluated meade has been removed (4) DKA (diabetic ketoacidoses) Plan: resolved, monitor for recurrence (5) Metabolic acidosis Plan: Resolved. monitor Plan She does not want to go to rehab. Wants to go home. Spoke with CM, she can have a walker sent to her home. She can do outpatient PT/OT. They can arrange if needed. (Eva Marcelo) Plan patient was seen and examined. No new labs today. Renal function has improved. No need for dialysis. Dialysis catheter removed. She can be discharged from renal standpoint. Above note reviewed, agree with assessment and plan. (Valdez Patterson MD) Problem Qualifiers (1) DKA (diabetic ketoacidoses): Eva Marcelo Jan 28, 2017 12:43 Valdez Patterson MD Jan 28, 2017 21:02
--- NOTE | 2017-01-28 14:14 | HHI.PR ---
Subjective Remarks Unable to obtain labs today to follow renal function. Patient has a history of difficult access. No other complaints from the patient. Objective Vital Signs Date Time Temp Pulse Resp B/P Pulse Ox O2 Delivery O2 Flow Rate FiO2 01/28/17 12:00 99.2 90 18 113/69 90 01/28/17 12:00 Room Air 01/28/17 11:36 94 21 01/28/17 08:00 99.0 96 18 130/65 93 01/28/17 08:00 Room Air 01/28/17 04:00 98.4 96 20 118/59 91 01/28/17 00:00 98.8 95 18 132/60 95 01/27/17 20:15 100 01/27/17 20:15 96 Room Air 01/27/17 20:00 98.9 97 18 133/66 96 01/27/17 17:41 98 01/27/17 16:00 98.4 98 16 136/65 93 01/27/17 14:32 94 I/O 01/27/17 01/27/17 01/27/17 01/28/17 01/28/17 01/28/17 07:00 15:00 23:00 07:00 15:00 23:00 Intake Total 240 ml 600 ml 240 ml 240 ml Output Total 200 ml 300 ml Balance 240 ml 400 ml 240 ml -60 ml Intake Oral 240 ml 600 ml 240 ml 240 ml Output Urine Total 200 ml 300 ml # Voids 2 1 # Bowel Movements 0 0 2 Result Diagram: 01/25/17 0750 01/27/17 0600 Objective Remarks GENERAL: NAD, A&Ox3 HEAD: Normocephalic. NECK: Supple, trachea midline. No lymphadenopathy. EYES: No scleral icterus. No injection or drainage. CARDIOVASCULAR: Regular rate and rhythm without murmurs, gallops, or rubs. RESPIRATORY: Breath sounds equal bilaterally. No accessory muscle use. GASTROINTESTINAL: Abdomen soft, non-tender, nondistended. MUSCULOSKELETAL: No cyanosis, or edema. SKIN: Warm and dry. NEURO: No focal neurological deficitis. 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 Last time labs are checked renal function hasn't improved, but further monitoring will be needed. PICC line ordered as patient cannot have peripheral draws thus far (difficult access). If PICC line feels she may need a central line. Acute renal failure Chronic kidney disease stage III Renal function has improved today Etiology may be related to lupus exacerbation Continue steroids Continue to follow renal function Dialysis if needed Diabetes mellitus type 2 Steroids may cause hyperglycemia, but despite this steroids might be more beneficial this point Follow blood sugars Adjust Lantus if needed High-dose sliding scale Diabetic diet Follow blood sugars Lupus Continue Plaquenil Continue steroids Seizure No recent activity Continue Trileptal Closed right tib-fib fracture Continue PT Patient had intramedullary yuri for treatment Continue vitamin D Anemia Stable Follow CBC for any changes Cardiopulmonary arrest Resolved Event occurred Status post CODE BLUE after receiving Versed and fentanyl for conscious sedation. She became bradycardic and hypoxic. No ACLS drugs given. Resolved. IR to adjust meds for sedation History of CVA Chronic right hemiplegia Supportive care Follow clinically Continue PT and OT DVT prophylaxis SCDs and Lovenox Discharge Planning Not stable for discharge at this point No payor source for rehabilitation Umesh Pandya MD Jan 28, 2017 14:14
[2017-01-28 17:38] LABS: HEMATOCRIT 26.7 % (35.0-46.0); MEAN CELL VOLUME 93.8 FL (80.0-100.0); PLATELET COUNT 156 TH/MM3 (150-450); RED BLOOD COUNT 2.84 MIL/MM3 (4.00-5.30); RED CELL DISTRIBUTION WIDTH 16.9 % (11.6-17.2); REVIEW FLAG FINAL; WHITE BLOOD COUNT 15.6 TH/MM3 (4.0-11.0)
[2017-01-28 17:56] LABS: BICARBONATE 28.6 MEQ/L (21.0-32.0); POTASSIUM 3.7 MEQ/L (3.5-5.1)
[2017-01-28 18:39] LABS: CALCIUM-PROTEIN CORRECTED 8.5 MG/DL (8.5-10.1)
[2017-01-28] MEDS: MIRTAZAPINE ODT 15 MG TAB PO SCH (23:10)
[2017-01-29] VITALS (9 sets, daily range): BP systolic 102–153; BP diastolic 59–85; PULSE 83–98; RESP 16–22; TEMP 97.7–99; O2SAT 92–99
[2017-01-29] MEDS: hydrALAZINE HCL 50 MG TAB PO SCH ×3 (06:22→22:34)
[2017-01-29] MEDS: INSULIN ASPART SUPPLEMENTAL SCALE SQ SCH ×4 (08:00→21:00)
[2017-01-29] MEDS: INSULIN GLARGINE 1,000 UNITS/10 ML VIAL SQ SCH ×2 (09:00→21:00)
[2017-01-29] MEDS: MUPIROCIN 2% OINT 1 APPLIC/GM SYR NASAL SCH ×2 (09:00→21:00)
[2017-01-29] MEDS: ATORVASTATIN 40 MG TAB PO SCH (09:09)
[2017-01-29] MEDS: MULTIVITAMINS/MINERALS THERAPEUTIC TAB PO SCH (09:09)
[2017-01-29] MEDS: CALCIUM CARBONATE 500 MG CHEWABLE TAB CHEW SCH ×2 (09:10→22:36)
[2017-01-29] MEDS: predniSONE 20 MG TAB PO SCH (09:10)
[2017-01-29] MEDS: METOPROLOL TARTRATE 25 MG TAB PO SCH ×2 (09:10→22:34)
[2017-01-29] MEDS: OXcarbazepine 300 MG TAB PO SCH ×2 (09:10→22:36)
[2017-01-29] MEDS: POTASSIUM PHOSPHATE/SODIUM PHOSPHATE 250 MG TAB PO SCH ×2 (09:10→22:34)
[2017-01-29] MEDS: PANTOPRAZOLE SOD 40 MG DELAYED RELEASE TAB PO SCH (09:10)
[2017-01-29] MEDS: HYDROXYCHLOROQUINE SULFATE 200 MG TAB PO SCH (09:10)
[2017-01-29] MEDS: DOCUSATE SODIUM 50 MG/SENNA 8.6 MG TAB PO SCH ×2 (09:10→21:00)
[2017-01-29] MEDS: guaiFENesin E.R. 600 MG TAB PO SCH ×2 (09:10→22:34)
[2017-01-29] MEDS: MEGESTROL ACETATE SUSP 400 MG/10 ML CUP PO SCH ×2 (09:14→22:34)
[2017-01-29] MEDS: ENOXAPARIN SODIUM 30 MG/0.3 ML SYRINGE SQ SCH (09:14)
[2017-01-29] MEDS: SODIUM CHLORIDE 0.9% FLUSH 10 ML FLUSH IVF SCH (09:24)
[2017-01-29 14:54] LABS: MEAN CORPUSCULAR HEMOGLOBIN 30.4 PG (27.0-34.0); MEAN CORPUSCULAR HGB CONC 32.4 % (32.0-36.0); PLATELET COUNT 177 TH/MM3 (150-450); RED BLOOD COUNT 2.21 MIL/MM3 (4.00-5.30); RED CELL DISTRIBUTION WIDTH 16.9 % (11.6-17.2); WHITE BLOOD COUNT 14.3 TH/MM3 (4.0-11.0)
[2017-01-29 14:56] LABS: REVIEW FLAG FINAL
[2017-01-29 15:05] LABS: HEMATOCRIT 20.8 % (35.0-46.0)
--- NOTE | 2017-01-29 15:12 | HHI.PR ---
Subjective Remarks Patient has no new complaints today. Hemoglobin was 6.7 today. No complaints of GI bleeding per patient. Renal function improved as of yesterday evening. Objective Vital Signs Date Time Temp Pulse Resp B/P Pulse Ox O2 Delivery O2 Flow Rate FiO2 01/29/17 12:00 98.6 97 20 147/70 93 01/29/17 08:00 98.8 98 20 148/75 93 01/29/17 04:12 98.5 96 16 150/70 92 01/29/17 00:33 98.7 90 16 102/60 98 01/28/17 21:03 98.5 90 16 100/55 96 01/28/17 20:15 96 Room Air 01/28/17 20:15 89 01/28/17 16:00 99.0 92 18 135/65 95 I/O 01/28/17 01/28/17 01/28/17 01/29/17 01/29/17 01/29/17 07:00 15:00 23:00 07:00 15:00 23:00 Intake Total 240 ml 480 ml 480 ml 60 ml Output Total 300 ml 400 ml 250 ml 250 ml Balance -60 ml 80 ml 230 ml -190 ml Intake Oral 240 ml 480 ml 480 ml 60 ml Output Urine Total 300 ml 400 ml 250 ml 250 ml # Bowel Movements 2 1 0 1 Result Diagram: 01/29/17 1430 01/28/17 1705 Objective Remarks GENERAL: NAD, A&Ox3 HEAD: Normocephalic. NECK: Supple, trachea midline. No lymphadenopathy. EYES: No scleral icterus. No injection or drainage. CARDIOVASCULAR: Regular rate and rhythm without murmurs, gallops, or rubs. RESPIRATORY: Breath sounds equal bilaterally. No accessory muscle use. GASTROINTESTINAL: Abdomen soft, non-tender, nondistended. MUSCULOSKELETAL: No cyanosis, or edema. SKIN: Warm and dry. NEURO: No focal neurological deficitis. A/P Problem List: (1) CKD (chronic kidney disease), stage III ICD Code: N18.3 (2) DM (diabetes mellitus) type I uncontrolled with renal manifestation ICD Code: E10.29 (3) G6P deficiency (vjigzvk-1-xmjwbsnamgs deficiency) ICD Code: E74.01 (4) Lupus ICD Code: M32.9 (5) Acute renal failure (ARF) ICD Code: N17.9 (6) Lupus (systemic lupus erythematosus) ICD Code: M32.9 Assessment and Plan Assessment and plan 46-year-old female with lupus, admitted secondary to tib-fib fracture with recent acute renal failure. Transfuse 2 units packed red blood cells. Follow labs. Acute blood loss anemia Transfuse 2 units packed red blood cells on 01/29/17 Follow CBC Evaluate stool for occult blood Acute renal failure Chronic kidney disease stage III Improving thus far Etiology may be related to lupus exacerbation Continue steroids Continue to follow renal function Dialysis if needed Diabetes mellitus type 2 Steroids may cause hyperglycemia, but despite this steroids might be more beneficial this point Follow blood sugars Adjust Lantus if needed High-dose sliding scale Diabetic diet Follow blood sugars Lupus Continue Plaquenil Continue steroids Seizure No recent activity Continue Trileptal Closed right tib-fib fracture Continue PT Patient had intramedullary yuri for treatment Continue vitamin D Anemia Stable Follow CBC for any changes Cardiopulmonary arrest Resolved Event occurred Status post CODE BLUE after receiving Versed and fentanyl for conscious sedation. She became bradycardic and hypoxic. No ACLS drugs given. Resolved. IR to adjust meds for sedation History of CVA Chronic right hemiplegia Supportive care Follow clinically Continue PT and OT DVT prophylaxis SCDs and Lovenox Discharge Planning Not stable for discharge at this point No payor source for rehabilitation Umesh Pandya MD Jan 29, 2017 15:12
[2017-01-29 15:15] LABS: BICARBONATE 30.1 MEQ/L (21.0-32.0)
[2017-01-29] MEDS ORDERED: SODIUM CHLOR 0.9% 250 ML INJ 250 ML IV ONE (15:15)
--- NOTE | 2017-01-29 19:40 | HHI.NPPN ---
Subjective General Problems: Anemia Renal Failure: Chronic, Acute Additional Remarks no acute complaints Review of Systems General Constitutional: Fatigue General Remarks Musculoskeletal MS Remarks generalized muscle aches Objective Data Data 01/28/17 01/29/17 19:00 07:00 Intake Total 480 ml 540 ml Output Total 400 ml 500 ml Balance 80 ml 40 ml Intake Oral 480 ml 540 ml Output Urine Total 400 ml 500 ml # Bowel Movements 1 1 Vital Signs Date Time Temp Pulse Resp B/P Pulse Ox O2 Delivery O2 Flow Rate FiO2 01/29/17 16:00 98.7 94 20 153/84 93 01/29/17 12:00 98.6 97 20 147/70 93 01/29/17 08:00 83 01/29/17 08:00 98.8 98 20 148/75 93 01/29/17 08:00 96 Room Air 21 01/29/17 04:12 98.5 96 16 150/70 92 01/29/17 00:33 98.7 90 16 102/60 98 01/28/17 21:03 98.5 90 16 100/55 96 01/28/17 20:15 96 Room Air 01/28/17 20:15 89 -: 01/29/17 1430 01/29/17 1430 Tubes & Lines: Vas-Cath Tubes & Lines Comment TLC right SC Physical Exam General Appearance: Well Developed, Well Nourished, No Acute Distress, Comfortable Eyes Eye Exam: Pupils Equal Throat Throat Exam: Oral Mucosa [place] & Moist Neck Neck Exam: Neck Supple, Trachea Midline Pulmonary Resp Exam: Clear Bilaterally, Breath Sounds Equal, No Distress, Decreased Bases Cardiology CV Exam: Regular, Normal Sinus Rhythm Gastrointestinal/Abdomen GI Exam: Soft, Non-Tender, Bowel Sounds Present Musculoskeletal MS Exam: Joints Intact, Normal Tone, Good Strength Integumentary Skin Exam: Clear, Warm, Dry, Intact Extremeties Extremities Exam: Pedal Pulses Palpable, Trace Edema Neurologic Neuro Exam: Alert, Awake, Oriented, Speech Clear, Moving All Extremities Psychiatric Psych Exam: Appropriate Responses PUD Prophylasis PUD Prophylaxis: Protonix Assessment/Plan Discussed Condition With: Patient Assessment Summary: REGAN/Acute Renal Failure, Anemia of CKD, Hypertension, Diabetes Mellitus Problem List: (1) Acute kidney failure Plan: REGAN on CKD 3. She required one HD treatment on 01/22 Renal function has improved; she is non oliguric Creatinine 2.1 -> 2.4. Follow AM labs - some anemia today, transfusion ordered. May be contributing to increase in creatinine? Follow with primary team Taper off steroid: changed to 30 mg PO daily. Please taper off over a 2 week period (2) CKD (chronic kidney disease), stage III Plan: Due to diabetic nephropathy monitor renal function her baseline creatinine is 1.3-1.7 (3) UTI (urinary tract infection) Plan: culture reviewed, she is asymptomatic, not on antibiotics ID has evaluated meade has been removed (4) DKA (diabetic ketoacidoses) Plan: resolved, monitor for recurrence (5) Metabolic acidosis Plan: Resolved. monitor Problem Qualifiers (1) DKA (diabetic ketoacidoses): Umesh Waters MD Jan 29, 2017 19:40
[2017-01-29] MEDS: MIRTAZAPINE ODT 15 MG TAB PO SCH (22:34)
[2017-01-30] VITALS (8 sets, daily range): BP systolic 138–163; BP diastolic 67–85; PULSE 88–93; RESP 18–22; TEMP 98.2–99; O2SAT 95–99
[2017-01-30] MEDS: hydrALAZINE HCL 50 MG TAB PO SCH ×3 (05:33→21:57)
[2017-01-30] MEDS: INSULIN ASPART SUPPLEMENTAL SCALE SQ SCH ×4 (08:00→21:00)
[2017-01-30] MEDS: guaiFENesin E.R. 600 MG TAB PO SCH ×2 (09:00→21:56)
[2017-01-30] MEDS: HYDROXYCHLOROQUINE SULFATE 200 MG TAB PO SCH (09:00)
[2017-01-30] MEDS: MEGESTROL ACETATE SUSP 400 MG/10 ML CUP PO SCH ×2 (09:00→21:57)
[2017-01-30] MEDS: PANTOPRAZOLE SOD 40 MG DELAYED RELEASE TAB PO SCH (09:00)
[2017-01-30] MEDS: METOPROLOL TARTRATE 25 MG TAB PO SCH ×2 (09:00→21:56)
[2017-01-30] MEDS: OXcarbazepine 300 MG TAB PO SCH ×2 (09:00→21:56)
[2017-01-30] MEDS: INSULIN GLARGINE 1,000 UNITS/10 ML VIAL SQ SCH ×2 (09:00→21:00)
[2017-01-30] MEDS: predniSONE 20 MG TAB PO SCH (09:00)
[2017-01-30] MEDS: CALCIUM CARBONATE 500 MG CHEWABLE TAB CHEW SCH ×2 (09:00→21:56)
[2017-01-30] MEDS: MUPIROCIN 2% OINT 1 APPLIC/GM SYR NASAL SCH ×3 (09:00→21:57)
[2017-01-30] MEDS: DOCUSATE SODIUM 50 MG/SENNA 8.6 MG TAB PO SCH ×3 (09:00→21:56)
[2017-01-30] MEDS: POTASSIUM PHOSPHATE/SODIUM PHOSPHATE 250 MG TAB PO SCH ×2 (09:00→21:56)
[2017-01-30] MEDS: MULTIVITAMINS/MINERALS THERAPEUTIC TAB PO SCH (09:00)
[2017-01-30] MEDS: SODIUM CHLORIDE 0.9% FLUSH 10 ML FLUSH IVF SCH (09:00)
[2017-01-30] MEDS: ATORVASTATIN 40 MG TAB PO SCH (09:00)
[2017-01-30 10:48] LABS: MEAN CELL VOLUME 88.8 FL (80.0-100.0); MEAN CORPUSCULAR HEMOGLOBIN 29.7 PG (27.0-34.0); MEAN CORPUSCULAR HGB CONC 33.5 % (32.0-36.0); PLATELET COUNT 185 TH/MM3 (150-450); RED BLOOD COUNT 3.83 MIL/MM3 (4.00-5.30); RED CELL DISTRIBUTION WIDTH 17.3 % (11.6-17.2); WHITE BLOOD COUNT 17.3 TH/MM3 (4.0-11.0)
[2017-01-30 10:57] LABS: BICARBONATE 25.8 MEQ/L (21.0-32.0); POTASSIUM 3.7 MEQ/L (3.5-5.1)
--- NOTE | 2017-01-30 14:53 | HHI.PR ---
Subjective Remarks Improved hemoglobin status post transfusion. Renal function is also improved today. Patient's only complaints are sinus fullness and she had some diarrhea yesterday. Objective Vital Signs Date Time Temp Pulse Resp B/P (MAP) Pulse Ox O2 Delivery O2 Flow Rate FiO2 01/30/17 07:46 96 Room Air 21 01/30/17 07:46 92 01/30/17 06:43 98.7 91 20 143/67 (92) 97 01/30/17 04:00 98.5 93 18 155/79 (104) 99 01/30/17 03:13 98.2 90 20 163/82 (109) 95 01/30/17 03:02 99.0 90 22 148/82 (104) 95 01/30/17 02:38 98.6 90 20 138/69 (92) 95 01/30/17 00:00 98.4 91 20 140/85 (103) 95 01/29/17 23:25 98.4 91 20 145/85 (105) 95 01/29/17 22:59 97.7 91 20 144/80 (101) 95 01/29/17 22:50 99.0 90 22 148/82 (104) 01/29/17 20:00 98.5 96 16 126/59 (81) 99 01/29/17 20:00 Room Air 01/29/17 16:00 98.7 94 20 153/84 (107) 93 I/O 01/29/17 01/29/17 01/29/17 01/30/17 01/30/17 01/30/17 07:00 15:00 23:00 07:00 15:00 23:00 Intake Total 60 ml 480 ml 280 ml 380 ml Output Total 250 ml 850 ml 400 ml 300 ml Balance -190 ml -370 ml -120 ml 80 ml Intake Oral 60 ml 480 ml 280 ml 380 ml Output Urine Total 250 ml 850 ml 400 ml 300 ml # Bowel Movements 1 2 5 7 Result Diagram: 01/30/17 1022 01/30/17 1022 Objective Remarks GENERAL: NAD, A&Ox3 HEAD: Normocephalic. NECK: Supple, trachea midline. No lymphadenopathy. EYES: No scleral icterus. No injection or drainage. CARDIOVASCULAR: Regular rate and rhythm without murmurs, gallops, or rubs. RESPIRATORY: Breath sounds equal bilaterally. No accessory muscle use. GASTROINTESTINAL: Abdomen soft, non-tender, nondistended. MUSCULOSKELETAL: No cyanosis, or edema. SKIN: Warm and dry. NEURO: No focal neurological deficitis. A/P Problem List: (1) CKD (chronic kidney disease), stage III ICD Code: N18.3 - Chronic kidney disease, stage 3 (moderate) Status: Acute (2) DM (diabetes mellitus) type I uncontrolled with renal manifestation ICD Code: E10.29 - Uncontrolled type 1 diabetes mellitus with renal manifestations; E10.65 - Type 1 diabetes mellitus with hyperglycemia Status: Chronic (3) G6P deficiency (xranonu-7-vwvgoxsghsr deficiency) ICD Code: E74.01 - Pblynow-8-hkujbirllvh deficiency Status: Acute (4) Lupus ICD Code: M32.9 - Systemic lupus erythematosus Status: Chronic (5) Acute renal failure (ARF) ICD Code: N17.9 - Acute kidney failure, unspecified Status: Acute (6) Lupus (systemic lupus erythematosus) ICD Code: M32.9 - Systemic lupus erythematosus, unspecified Status: Acute Assessment and Plan Assessment and plan 46-year-old female with lupus, admitted secondary to tib-fib fracture with recent acute renal failure. Status post transfusion. Obtain C. difficile study to screen patient's diarrhea symptoms. Start Flonase for nasal congestion. Follow CBC. Follow renal function. Acute blood loss anemia Transfuse 2 units packed red blood cells on 01/29/17 Improved Follow CBC Evaluate stool for occult blood Acute renal failure Chronic kidney disease stage III Improving thus far Etiology may be related to lupus exacerbation Continue steroids Continue to follow renal function Dialysis if needed Diabetes mellitus type 2 Steroids may cause hyperglycemia, but despite this steroids might be more beneficial this point Follow blood sugars Adjust Lantus if needed High-dose sliding scale Diabetic diet Follow blood sugars Lupus Continue Plaquenil Continue steroids Seizure No recent activity Continue Trileptal Closed right tib-fib fracture Continue PT Patient had intramedullary yuri for treatment Continue vitamin D Anemia Stable Follow CBC for any changes Cardiopulmonary arrest Resolved Event occurred Status post CODE BLUE after receiving Versed and fentanyl for conscious sedation. She became bradycardic and hypoxic. No ACLS drugs given. Resolved. IR to adjust meds for sedation History of CVA Chronic right hemiplegia Supportive care Follow clinically Continue PT and OT DVT prophylaxis SCDs and Lovenox Discharge Planning Not stable for discharge at this point No payor source for rehabilitation Umesh Pandya MD Jan 30, 2017 14:53
--- NOTE | 2017-01-30 17:11 | HHI.NPPN ---
Subjective General Problems: Anemia Renal Failure: Chronic, Acute Additional Remarks no acute complaints Review of Systems General Constitutional: Fatigue General Remarks Musculoskeletal MS Remarks generalized muscle aches Objective Data Data Vital Signs Date Time Temp Pulse Resp B/P (MAP) Pulse Ox O2 Delivery O2 Flow Rate FiO2 01/30/17 08:00 21 01/30/17 07:46 96 Room Air 21 01/30/17 07:46 92 01/30/17 06:43 98.7 91 20 143/67 (92) 97 01/30/17 04:00 98.5 93 18 155/79 (104) 99 01/30/17 03:13 98.2 90 20 163/82 (109) 95 01/30/17 03:02 99.0 90 22 148/82 (104) 95 01/30/17 02:38 98.6 90 20 138/69 (92) 95 01/30/17 00:00 98.4 91 20 140/85 (103) 95 01/29/17 23:25 98.4 91 20 145/85 (105) 95 01/29/17 22:59 97.7 91 20 144/80 (101) 95 01/29/17 22:50 99.0 90 22 148/82 (104) 01/29/17 20:00 98.5 96 16 126/59 (81) 99 01/29/17 20:00 Room Air -: 01/30/17 1022 01/30/17 1022 Microbiology 01/29/17 Stool Occult Blood (CHRIS) - Final, Complete HEMOCCULT NEGATIVE Tubes & Lines: Vas-Cath Tubes & Lines Comment TLC right SC Physical Exam General Appearance: Well Developed, Well Nourished, No Acute Distress, Comfortable Eyes Eye Exam: Pupils Equal Throat Throat Exam: Oral Mucosa [place] & Moist Neck Neck Exam: Neck Supple, Trachea Midline Pulmonary Resp Exam: Clear Bilaterally, Breath Sounds Equal, No Distress, Decreased Bases Cardiology CV Exam: Regular, Normal Sinus Rhythm Gastrointestinal/Abdomen GI Exam: Soft, Non-Tender, Bowel Sounds Present Musculoskeletal MS Exam: Joints Intact, Normal Tone, Good Strength Integumentary Skin Exam: Clear, Warm, Dry, Intact Extremeties Extremities Exam: Pedal Pulses Palpable, Trace Edema Neurologic Neuro Exam: Alert, Awake, Oriented, Speech Clear, Moving All Extremities Psychiatric Psych Exam: Appropriate Responses PUD Prophylasis PUD Prophylaxis: Protonix Assessment/Plan Discussed Condition With: Patient Assessment Summary: REGAN/Acute Renal Failure, Anemia of CKD, Hypertension, Diabetes Mellitus Problem List: (1) Acute kidney failure ICD Codes: N17.9 - Acute kidney failure, unspecified Status: Acute Plan: REGAN on CKD 3. She required one HD treatment on 01/22 Renal function has improved; she is non oliguric Creatinine 2.1 -> 2.4-> 2.1 Renal function stable. Transfused yesterday, hgb improved. Continue to monitor Taper off steroid: changed to 30 mg PO daily. Please taper off over a 2 week period (2) CKD (chronic kidney disease), stage III ICD Codes: N18.3 - Chronic kidney disease, stage 3 (moderate) Status: Acute Plan: Due to diabetic nephropathy monitor renal function her baseline creatinine is 1.3-1.7 (3) UTI (urinary tract infection) ICD Codes: N39.0 - Urinary tract infection Status: Acute Plan: culture reviewed, she is asymptomatic, not on antibiotics ID has evaluated meade has been removed (4) DKA (diabetic ketoacidoses) ICD Codes: E13.10 - Other specified diabetes mellitus with ketoacidosis without coma Status: Acute Plan: resolved, monitor for recurrence (5) Metabolic acidosis ICD Codes: E87.2 - Acidosis Status: Acute Plan: Resolved. monitor Problem Qualifiers (1) DKA (diabetic ketoacidoses): Umesh Waters MD Jan 30, 2017 17:11
[2017-01-30] MEDS: MIRTAZAPINE ODT 15 MG TAB PO SCH (21:56)
[2017-01-30] MEDS: FLUTICASONE PROPIONATE 50 MCG/ACT 16 GM NASAL SPRAY NASAL SCH (22:32)
[2017-01-31] VITALS (8 sets, daily range): BP systolic 141–171; BP diastolic 73–105; PULSE 84–101; RESP 17–22; TEMP 97.7–98.8; O2SAT 94–100
[2017-01-31 03:47] LABS: C. DIFF EPI 027 PRESUMPTIVE NEGATIVE (NEGATIVE)
[2017-01-31] MEDS ORDERED: metroNIDAZOLE 500 MG INJ 100 ML IV SCH (05:00)
[2017-01-31] MEDS: hydrALAZINE HCL 50 MG TAB PO SCH ×3 (05:39→22:07)
[2017-01-31] MEDS: MEGESTROL ACETATE SUSP 400 MG/10 ML CUP PO SCH ×2 (08:27→22:06)
[2017-01-31] MEDS: POTASSIUM PHOSPHATE/SODIUM PHOSPHATE 250 MG TAB PO SCH ×2 (08:27→22:03)
[2017-01-31] MEDS: MULTIVITAMINS/MINERALS THERAPEUTIC TAB PO SCH (08:27)
[2017-01-31] MEDS: PANTOPRAZOLE SOD 40 MG DELAYED RELEASE TAB PO SCH (08:27)
[2017-01-31] MEDS: guaiFENesin E.R. 600 MG TAB PO SCH ×2 (08:27→22:07)
[2017-01-31] MEDS: OXcarbazepine 300 MG TAB PO SCH ×2 (08:27→22:07)
[2017-01-31] MEDS: ATORVASTATIN 40 MG TAB PO SCH (08:27)
[2017-01-31] MEDS: predniSONE 20 MG TAB PO SCH (08:28)
[2017-01-31] MEDS: METOPROLOL TARTRATE 25 MG TAB PO SCH ×2 (08:28→22:07)
[2017-01-31] MEDS: CALCIUM CARBONATE 500 MG CHEWABLE TAB CHEW SCH ×2 (08:28→22:06)
[2017-01-31] MEDS: DOCUSATE SODIUM 50 MG/SENNA 8.6 MG TAB PO SCH ×2 (08:28→21:00)
[2017-01-31] MEDS: FLUTICASONE PROPIONATE 50 MCG/ACT 16 GM NASAL SPRAY NASAL SCH ×2 (08:28→22:08)
[2017-01-31] MEDS: SODIUM CHLORIDE 0.9% FLUSH 10 ML FLUSH IVF SCH (08:29)
[2017-01-31] MEDS: INSULIN ASPART SUPPLEMENTAL SCALE SQ SCH ×4 (08:34→22:05)
[2017-01-31] MEDS: INSULIN GLARGINE 1,000 UNITS/10 ML VIAL SQ SCH ×2 (08:35→22:06)
[2017-01-31] MEDS: MUPIROCIN 2% OINT 1 APPLIC/GM SYR NASAL SCH ×2 (09:00→22:03)
[2017-01-31] MEDS: HYDROXYCHLOROQUINE SULFATE 200 MG TAB PO SCH (13:06)
--- NOTE | 2017-01-31 14:00 | HHI.HCPN ---
Reason for visit a. To assist with evaluation and management of symptoms including:nausea; tremor vs seizures; aletered mental status b. To assist medical decision maker(s) with: better understanding of current medical conditions; weighing benefits/burdens of medical treatment options; making medical treatment decisions. . Subjective/Interval History Pt seen today to follow up on comfort, goals. Renal functions have cont to improve BUN 41/creatinine 2.12. nephrology cont to follow. H&H down over weekend , required transfusion 2 U rbcs Tuesday. Stool sent for Hemoccult-- negative. H &H stable today 04/16/34.0. +diarrhea, stool for Cdif positive Flagyl added. Eating 75-100% most recent meals per documentation. Pt seen in room, dual visit w S. Lower CARE GIVER. Pt alert, appropriate pleasant. ROS essentially negative- denies pain, dyspnea, nausea, endorses fair appetite. feeling well overall. Reports ambulated well around room w PT earlier today. Review of current tx, c diff findings. Pt tells me that they are no longer planning to proceed w renal bx per discussion w nephrology. She remains optimistic, endorses she is trying to adhere to recommended tx, activity etc to help her get well enough to get out of the hospital in a couple weeks. Goals remain aggressive. Advance Directives Health Care Surrogate: Copy in medical record (completed 12/27/2016) Advance Directive Specifics Health Care Surrogate(s): The patient's designated health care surrogate is her fatherSulyac Jewell The first alternate is the patient's motherHarriet Jewell A second alternate is the patient's ex -- Mary Bain. . Documented care wishes: No written documentation of health care preferences/wishes/goals . Objective Vital Signs Date Time Temp Pulse Resp B/P (MAP) Pulse Ox O2 Delivery O2 Flow Rate FiO2 01/31/17 12:00 98.7 90 17 171/105 (127) 96 01/31/17 09:00 Room Air 01/31/17 08:00 98.8 99 17 170/88 (115) 95 01/31/17 04:00 98.2 97 20 167/83 (111) 95 01/31/17 00:00 98.6 101 22 141/73 (95) 94 01/30/17 20:00 90 01/30/17 20:00 98.6 88 19 145/75 (98) 98 01/30/17 20:00 Room Air Intake & Output 01/31/17 01/31/17 06:59 18:59 Intake Total 820 ml Output Total 550 ml Balance 270 ml Intake Oral 720 ml IV Total 100 ml Output Urine Total 550 ml # Bowel Movements 2 Physical Exam CONSTITUTIONAL/GENERAL: This is an adequately nourished female.pleasant, appropriate SKIN: No jaundice, rashes, or lesions. No wounds seen anteriorly. Skin temperature appropriate. Not diaphoretic. CARDIOVASCULAR: Regular rate and rhythm without murmurs.No JVD. periph pulses palpable, no peripheral edema RESPIRATORY/CHEST: Symmetric, unlabored respirations. On room air. Clear to auscultation. Breath sounds equal bilaterally. GASTROINTESTINAL: Abdomen soft, non-tender, nondistended. Bowel sounds present. MUSCULOSKELETAL: Extremities without clubbing, cyanosis, or edema. No mottling. NEUROLOGICAL: alert, oriented, pleasant. appears to have reasonable insight. Moves all 4 extremities. PSYCHIATRIC: no obvious depression or anxiety . Diagnostic Tests Laboratory Laboratory Tests Test 01/28/17 17:05 01/29/17 14:30 01/29/17 22:12 01/30/17 10:22 White Blood Count 15.6 TH/MM3 (4.0-11.0) 14.3 TH/MM3 (4.0-11.0) 17.3 TH/MM3 (4.0-11.0) Red Blood Count 2.84 MIL/MM3 (4.00-5.30) 2.21 MIL/MM3 (4.00-5.30) 3.83 MIL/MM3 (4.00-5.30) Hemoglobin 8.5 GM/DL (11.6-15.3) 6.7 GM/DL (11.6-15.3) 11.4 GM/DL (11.6-15.3) Hematocrit 26.7 % (35.0-46.0) 20.8 % (35.0-46.0) 34.0 % (35.0-46.0) Mean Corpuscular Volume 93.8 FL (80.0-100.0) 94.0 FL (80.0-100.0) 88.8 FL (80.0-100.0) Mean Corpuscular Hemoglobin 30.0 PG (27.0-34.0) 30.4 PG (27.0-34.0) 29.7 PG (27.0-34.0) Mean Corpuscular Hemoglobin Concent 32.0 % (32.0-36.0) 32.4 % (32.0-36.0) 33.5 % (32.0-36.0) Red Cell Distribution Width 16.9 % (11.6-17.2) 16.9 % (11.6-17.2) 17.3 % (11.6-17.2) Platelet Count 156 TH/MM3 (150-450) 177 TH/MM3 (150-450) 185 TH/MM3 (150-450) Mean Platelet Volume 9.6 FL (7.0-11.0) 10.3 FL (7.0-11.0) 9.9 FL (7.0-11.0) Blood Urea Nitrogen 43 MG/DL (7-18) 43 MG/DL (7-18) 41 MG/DL (7-18) Creatinine 2.16 MG/DL (0.50-1.00) 2.42 MG/DL (0.50-1.00) 2.12 MG/DL (0.50-1.00) Random Glucose 116 MG/DL (74-106) 199 MG/DL (74-106) 171 MG/DL (74-106) Total Protein 5.1 GM/DL (6.4-8.2) Calcium Level 7.4 MG/DL (8.5-10.1) 8.2 MG/DL (8.5-10.1) 8.1 MG/DL (8.5-10.1) Sodium Level 144 MEQ/L (136-145) 148 MEQ/L (136-145) 146 MEQ/L (136-145) Potassium Level 3.7 MEQ/L (3.5-5.1) 4.0 MEQ/L (3.5-5.1) 3.7 MEQ/L (3.5-5.1) Chloride Level 109 MEQ/L (98-107) 110 MEQ/L (98-107) 111 MEQ/L (98-107) Carbon Dioxide Level 28.6 MEQ/L (21.0-32.0) 30.1 MEQ/L (21.0-32.0) 25.8 MEQ/L (21.0-32.0) Anion Gap 6 MEQ/L (5-15) 8 MEQ/L (5-15) 9 MEQ/L (5-15) Estimat Glomerular Filtration Rate 29 ML/MIN (>89) 26 ML/MIN (>89) 30 ML/MIN (>89) Protein Corrected Calcium 8.5 MG/DL (8.5-10.1) Stool C. difficile Toxin (PCR) POSITIVE (NEGATIVE) Stl C. difficile Toxin Epiderm 027 PRESUMPTIVE NEGATIVE Result Diagram: 01/30/17 1022 01/30/17 1022 Microbiology Microbiology Date/Time Source Procedure Growth Status 01/29/17 22:12 Stool Stool Stool Occult Blood ([facility]) - Final HEMOCCULT NEGATIVE Complete Imaging Last Impressions Chest X-Ray 01/21/17 0000 Signed Impressions: Service Date/Time: Saturday, January 21, 2017 13:58 - CONCLUSION: Underinflation with mild bibasilar opacity representing either atelectasis, consolidation, or possibly small effusions. Jim Michaels MD Catheter Placement X-Ray 01/21/17 0000 Signed Impressions: Service Date/Time: Saturday, January 21, 2017 16:07 - CONCLUSION: Uncomplicated line placement as above. Jim Aly MD Central Venous Line 01/19/17 0000 Signed Impressions: Service Date/Time: Thursday, January 19, 2017 10:46 - CONCLUSION: Uncomplicated line placement as above. Jim Aly MD Brain MRI 01/11/17 0000 Signed Impressions: Service Date/Time: Wednesday, January 11, 2017 15:04 - CONCLUSION: 1. Stable focus of abnormal signal involving the left centrum semiovale likely related to prior lacunar infarct. No acute intracranial anatomy. Rafiq Nielson MD Head CT 01/10/17 0917 Signed Impressions: Service Date/Time: Tuesday, January 10, 2017 09:49 - CONCLUSION: 1. Interval development of left sided mastoiditis since 11/22/2016. Clinical correlation is recommended. 2. Otherwise, no acute intracranial abnormality. Eriberto Madison MD Abdomen/Pelvis CT 12/25/16 1100 Signed Impressions: Service Date/Time: Sunday, December 25, 2016 12:00 - CONCLUSION: Interval development of anasarca, small bilateral effusions and small to moderate ascites. No significant ileus, hydronephrosis, mass or lymphadenopathy. Status post cholecystectomy. Bobby Martins MD Abdomen X-Ray 12/25/16 0857 Signed Impressions: Service Date/Time: Sunday, December 25, 2016 09:27 - CONCLUSION: No acute disease. Bobby Martins MD Upper Extremity Ultrasound 12/24/16 0000 Signed Impressions: Service Date/Time: Saturday, December 24, 2016 11:58 - CONCLUSION: Normal examination. Tr Luna MD Renal Ultrasound 12/24/16 0000 Signed Impressions: Service Date/Time: Saturday, December 24, 2016 11:53 - CONCLUSION: 1. Increased echogenicity of the renal cortex which can be seen with underlying medical renal disease. 2. No findings to indicate renal obstruction. 3. Small bilateral effusions and a trace amount of ascites within the abdomen. Umesh Farah MD Tibia/Fibula X-Ray 12/03/16 0000 Signed Impressions: Service Date/Time: Saturday, December 03, 2016 15:09 - CONCLUSION: Excellent alignment of the patient's tibial fracture post rodding. Patient has a minimally displaced fibular fracture as well. Umesh Farah MD Ankle X-Ray 12/02/16 0000 Signed Impressions: Service Date/Time: November 18:16 - CONCLUSION: 1. The ankle mortise is intact. 2. Distal tibial and fibular fractures again noted. Please see right leg report for further details. Javier Marino MD Procedures * Intramedullary yuri fixation right lower extremity fracture on 12/03/16 . Assessment and Plan Disease Oriented Problem List: (1) Closed fracture of right tibia and fibula Comment: Repaired on 12/03/16 with intramedullary yuri fixation (2) Anemia (3) Lupus (4) DM (diabetes mellitus), type 1 with hyperosmolarity (5) CKD (chronic kidney disease), stage III Comment: Renal function stable/improved during admission (6) Seizure disorder Comment: Has reported long-term seizure disorder. Now with new tremor. Unclear if this is pseudoseizure, part of catatonia, medication reaction, etc. (7) Acute encephalopathy Comment: Patient has been having similar "spells" per family for 5-6 years and the etiology is uncertain. Spells have been more frequent and lasting longer of late. . (8) Acidosis Comment: Uncertain etiology. Given blood sugars are reasonably well controlled , this may be from starvation. . Symptom Scale: (1) Nausea 0-10 Scale: 0 (had it earlier.) Comment: Appears resolved. . (2) Decrease in appetite 0-10 Scale: Unable to quantify Comment: Hardly eating/drinking anything as part of this "spell" of altered mental status. . Pertinent Non-Medical Issues Psychosocial: Normally lives with her son and cares for herself. Spiritual: Sikhism Legal: Father is her designated health care surrogate. Ethical issues impacting care: Patient is incapacitated. She will probably regain capacity. Father is her health care surrogate. . Important Contacts Kevin Corcoran (father and Primary HCS) [phone] ( home) [phone] (cell) Harriet Jewell (mother and 1st Alternate HCS) [phone] (home ) Liliya bain(ex and 2nd alternate HCS) [phone] . Prognosis Patient is a 46-year-old female with a past medical history significant for diabetes (poorly controlled, prior multiple admission for DKA), hypertension, asthma, CKD stage III, strokes 2014 (with residual deficit right upper extremity ), seizure, and lupus. Pt came in with right ankle fracture which was repaired surgically. Had ICU stay due to respiratory distress thought to be narcotic related, and anemia (thought to be ckd or anemia of chronic disease). Per family, patient has had increasingly frequent spells of being nonverbal, not eating/drinking that normally last 2-3 days. Cause of these spells remains unclear -- phenytoin toxicity? catatonia? Stable, renal function improving. . . Code Status: Full Code Plan * Code Stats -- FULL CODE * Decision making: Has capacity to make medical decisions. Father is designated HCS if she becomes incapacitated. * Goals of medical treatment. Continue aggressive care, wants to get well and avoid any further setbacks, wants to d/c in the next few weeks. * SYMPTOMS == Pain: denies pain. prns available. No further recommendations at this time == Nausea/vomiting: no n/v. fair appetite, prn zofran available, has not required recently. == malnutrition: chronic. poor pO intake, on megace. eating 75-100% recent meals. albumin 2.o * Palliative Care will continue to follow to assist with symptom management and to clarify goals of medical treatment as the clincal course evolves. . Attestation To help prompt me to consider important information that might be impacting today's encounter and assessment, information from prior notes written by myself or my colleagues may have been "brought forward" into today's note. My signature on this note, however, is an attestation that I personally performed the exam, history, and/or decision-making noted today, and, unless otherwise indicated, the interactions with patient, family, and staff as well as the review of records all occurred today. I also attest that the listed assessment and stated plan reflect my best clinical judgment today based on the combination of historical information, prior notes, and today's exam/ interactions. When time spent is documented, it refers only to time spent today by the signer, or if indicated, combined time spent today by collaborating physician/nurse practitioner. Reena Caruso Jan 31, 2017 14:00
--- NOTE | 2017-01-31 14:12 | HHI.PR ---
Subjective Remarks Diarrhea is improved but not fully resolved. Stool testing is positive for C. difficile. Treatment initiated. Patient has no other complaints. Renal function continues to improve. Objective Vital Signs Date Time Temp Pulse Resp B/P (MAP) Pulse Ox O2 Delivery O2 Flow Rate FiO2 01/31/17 12:00 98.7 90 17 171/105 (127) 96 01/31/17 09:00 Room Air 01/31/17 08:00 98.8 99 17 170/88 (115) 95 01/31/17 04:00 98.2 97 20 167/83 (111) 95 01/31/17 00:00 98.6 101 22 141/73 (95) 94 01/30/17 20:00 90 01/30/17 20:00 98.6 88 19 145/75 (98) 98 01/30/17 20:00 Room Air I/O 01/30/17 01/30/17 01/30/17 01/31/17 01/31/17 01/31/17 06:59 14:59 22:59 06:59 14:59 22:59 Intake Total 380 ml 600 ml 820 ml Output Total 300 ml 300 ml 550 ml Balance 80 ml 300 ml 270 ml Intake Oral 380 ml 600 ml 720 ml IV Total 100 ml Output Urine Total 300 ml 300 ml 550 ml # Bowel Movements 7 1 2 Result Diagram: 01/30/17 1022 01/30/17 1022 Objective Remarks GENERAL: NAD, A&Ox3 HEAD: Normocephalic. NECK: Supple, trachea midline. No lymphadenopathy. EYES: No scleral icterus. No injection or drainage. CARDIOVASCULAR: Regular rate and rhythm without murmurs, gallops, or rubs. RESPIRATORY: Breath sounds equal bilaterally. No accessory muscle use. GASTROINTESTINAL: Abdomen soft, non-tender, nondistended. MUSCULOSKELETAL: No cyanosis, or edema. SKIN: Warm and dry. NEURO: No focal neurological deficitis. A/P Problem List: (1) CKD (chronic kidney disease), stage III ICD Code: N18.3 - Chronic kidney disease, stage 3 (moderate) Status: Acute (2) DM (diabetes mellitus) type I uncontrolled with renal manifestation ICD Code: E10.29 - Uncontrolled type 1 diabetes mellitus with renal manifestations; E10.65 - Type 1 diabetes mellitus with hyperglycemia Status: Chronic (3) G6P deficiency (tockdjf-3-wwxyjaypwqg deficiency) ICD Code: E74.01 - Duefnxi-9-cmlezyxuogl deficiency Status: Acute (4) Lupus ICD Code: M32.9 - Systemic lupus erythematosus Status: Chronic (5) Acute renal failure (ARF) ICD Code: N17.9 - Acute kidney failure, unspecified Status: Acute (6) Lupus (systemic lupus erythematosus) ICD Code: M32.9 - Systemic lupus erythematosus, unspecified Status: Acute Assessment and Plan Assessment and plan 46-year-old female with lupus, admitted secondary to tib-fib fracture with recent acute renal failure. Stable status post transfusion. Renal function improves today. C. difficile positive on testing. Metronidazole by mouth started. Her recent blood loss may be related to colitis. Acute blood loss anemia Transfuse 2 units packed red blood cells on 01/29/17 Improved Follow CBC Evaluate stool for occult blood Acute renal failure Chronic kidney disease stage III Improving thus far Etiology may be related to lupus exacerbation Continue steroids Continue to follow renal function Dialysis if needed Diabetes mellitus type 2 Steroids may cause hyperglycemia, but despite this steroids might be more beneficial this point Follow blood sugars Adjust Lantus if needed High-dose sliding scale Diabetic diet Follow blood sugars Lupus Continue Plaquenil Continue steroids Seizure No recent activity Continue Trileptal Closed right tib-fib fracture Continue PT Patient had intramedullary yuri for treatment Continue vitamin D Anemia Stable Follow CBC for any changes Cardiopulmonary arrest Resolved Event occurred Status post CODE BLUE after receiving Versed and fentanyl for conscious sedation. She became bradycardic and hypoxic. No ACLS drugs given. Resolved. IR to adjust meds for sedation History of CVA Chronic right hemiplegia Supportive care Follow clinically Continue PT and OT DVT prophylaxis SCDs and Lovenox Discharge Planning Not stable for discharge at this point No payor source for rehabilitation Umesh Pandya MD Jan 31, 2017 14:12
[2017-01-31] MEDS: metroNIDAZOLE 500 MG TAB PO SCH ×2 (16:26→22:07)
[2017-01-31] MEDS: hydrALAZINE HCL 20 MG/ML VIAL IV PUSH PRN (16:26)
--- NOTE | 2017-01-31 16:51 | HHI.NPPN ---
Subjective General Problems: Anemia Renal Failure: Chronic, Acute Interval History Seen at 1000. Diarrhea is better, but tested positive for C diff. Renal function improving. No further complaints. (Eva Marcelo) Review of Systems General Constitutional: Fatigue (Eva Marcelo) Musculoskeletal MS Remarks generalized muscle aches (Eva Marcelo) Objective Data Data Vital Signs Date Time Temp Pulse Resp B/P (MAP) Pulse Ox O2 Delivery O2 Flow Rate FiO2 01/31/17 12:00 98.7 90 17 171/105 (127) 96 01/31/17 09:00 Room Air 01/31/17 08:00 98.8 99 17 170/88 (115) 95 01/31/17 07:50 94 01/31/17 04:00 98.2 97 20 167/83 (111) 95 01/31/17 00:00 98.6 101 22 141/73 (95) 94 01/30/17 20:00 90 01/30/17 20:00 98.6 88 19 145/75 (98) 98 01/30/17 20:00 Room Air (Eva Marcelo) -: 01/30/17 1022 01/30/17 1022 Imaging Last Impressions Chest X-Ray 01/21/17 0000 Signed Impressions: Service Date/Time: Saturday, January 21, 2017 13:58 - CONCLUSION: Underinflation with mild bibasilar opacity representing either atelectasis, consolidation, or possibly small effusions. Jim Michaels MD Catheter Placement X-Ray 01/21/17 0000 Signed Impressions: Service Date/Time: Saturday, January 21, 2017 16:07 - CONCLUSION: Uncomplicated line placement as above. Jim Aly MD Central Venous Line 01/19/17 0000 Signed Impressions: Service Date/Time: Thursday, January 19, 2017 10:46 - CONCLUSION: Uncomplicated line placement as above. Jim Aly MD Brain MRI 01/11/17 0000 Signed Impressions: Service Date/Time: Wednesday, January 11, 2017 15:04 - CONCLUSION: 1. Stable focus of abnormal signal involving the left centrum semiovale likely related to prior lacunar infarct. No acute intracranial anatomy. Rafiq Nielson MD Head CT 01/10/17 0917 Signed Impressions: Service Date/Time: Tuesday, January 10, 2017 09:49 - CONCLUSION: 1. Interval development of left sided mastoiditis since 11/22/2016. Clinical correlation is recommended. 2. Otherwise, no acute intracranial abnormality. Eriberto Madison MD Abdomen/Pelvis CT 12/25/16 1100 Signed Impressions: Service Date/Time: Sunday, December 25, 2016 12:00 - CONCLUSION: Interval development of anasarca, small bilateral effusions and small to moderate ascites. No significant ileus, hydronephrosis, mass or lymphadenopathy. Status post cholecystectomy. Bobby Martins MD Abdomen X-Ray 12/25/16 0857 Signed Impressions: Service Date/Time: Sunday, December 25, 2016 09:27 - CONCLUSION: No acute disease. Bobby Martins MD Upper Extremity Ultrasound 12/24/16 0000 Signed Impressions: Service Date/Time: Saturday, December 24, 2016 11:58 - CONCLUSION: Normal examination. KReza Luna MD Renal Ultrasound 12/24/16 0000 Signed Impressions: Service Date/Time: Saturday, December 24, 2016 11:53 - CONCLUSION: 1. Increased echogenicity of the renal cortex which can be seen with underlying medical renal disease. 2. No findings to indicate renal obstruction. 3. Small bilateral effusions and a trace amount of ascites within the abdomen. Umesh Farah MD Tibia/Fibula X-Ray 12/03/16 0000 Signed Impressions: Service Date/Time: Saturday, December 03, 2016 15:09 - CONCLUSION: Excellent alignment of the patient's tibial fracture post rodding. Patient has a minimally displaced fibular fracture as well. Umesh Farah MD Ankle X-Ray 12/02/16 0000 Signed Impressions: Service Date/Time: November 18:16 - CONCLUSION: 1. The ankle mortise is intact. 2. Distal tibial and fibular fractures again noted. Please see right leg report for further details. Javier Marino MD (Eva Marcelo) Physical Exam General Appearance: Well Developed, Well Nourished, No Acute Distress, Comfortable (Eva Marcelo) Eyes Eye Exam: Pupils Equal (Eva Marcelo) Throat Throat Exam: Oral Mucosa [place] & Moist (Eva Marcelo) Neck Neck Exam: Neck Supple, Trachea Midline (Eva Marcelo) Pulmonary Resp Exam: Clear Bilaterally, Breath Sounds Equal, No Distress, Decreased Bases (Eva MarceloP) Cardiology CV Exam: Regular, Normal Sinus Rhythm (Eva Marcelo) Gastrointestinal/Abdomen GI Exam: Soft, Non-Tender, Bowel Sounds Present (Eva Marcelo) Musculoskeletal MS Exam: Joints Intact, Normal Tone, Good Strength (Eva Marcelo) Integumentary Skin Exam: Clear, Warm, Dry, Intact (Eva Marcelo) Extremeties Extremities Exam: Pedal Pulses Palpable, Trace Edema (Eva Marcelo) Neurologic Neuro Exam: Alert, Awake, Oriented, Speech Clear, Moving All Extremities (Eva Marcelo) Psychiatric Psych Exam: Appropriate Responses (Eva Marcelo) PUD Prophylasis PUD Prophylaxis: Protonix (Eva Marcelo) Assessment/Plan Discussed Condition With: Patient Assessment Summary: REGAN/Acute Renal Failure, Anemia of CKD, Hypertension, Diabetes Mellitus Problem List: (1) Acute kidney failure ICD Codes: N17.9 - Acute kidney failure, unspecified Status: Acute Plan: REGAN on CKD 3. She required one HD treatment on 01/22 She is in renal recovery; Renal function has improved she is non oliguric without meade catheter Kidney function has stabilized. Cleared for discharge from renal perspective. We will follow in CKD clinic after discharge Prednisone decreased to 10 mg daily, continue taper, completed by next Tuesday. IVF not required. (2) CKD (chronic kidney disease), stage III ICD Codes: N18.3 - Chronic kidney disease, stage 3 (moderate) Status: Acute Plan: Due to diabetic nephropathy monitor renal function her baseline creatinine is 1.3-1.7 (3) UTI (urinary tract infection) ICD Codes: N39.0 - Urinary tract infection Status: Acute Plan: culture reviewed, she is asymptomatic, not on antibiotics ID has evaluated meade has been removed (4) DKA (diabetic ketoacidoses) ICD Codes: E13.10 - Other specified diabetes mellitus with ketoacidosis without coma Status: Acute Plan: resolved, monitor for recurrence (5) Metabolic acidosis ICD Codes: E87.2 - Acidosis Status: Acute Plan: Resolved. monitor (Eva Marcelo) Plan patient was seen and examined. Renal function is stable. No need for dialysis. She can be discharged from renal standpoint. (Valdez Pattersno MD) Problem Qualifiers (1) DKA (diabetic ketoacidoses): Eva Marcelo Jan 31, 2017 16:51 Valdez Patterson MD Feb 01, 2017 11:25
[2017-01-31] MEDS: MIRTAZAPINE ODT 15 MG TAB PO SCH (22:02)
[2017-02-01] VITALS (7 sets, daily range): BP systolic 155–189; BP diastolic 76–100; PULSE 88–101; RESP 18–20; TEMP 97–98.5; O2SAT 92–96
[2017-02-01] MEDS: hydrALAZINE HCL 50 MG TAB PO SCH ×3 (05:53→21:25)
[2017-02-01] MEDS: metroNIDAZOLE 500 MG TAB PO SCH ×3 (05:53→21:25)
[2017-02-01 07:48] LABS: BICARBONATE 26.8 MEQ/L (21.0-32.0); POTASSIUM 3.9 MEQ/L (3.5-5.1)
[2017-02-01] MEDS: OXcarbazepine 300 MG TAB PO SCH ×2 (08:11→21:25)
[2017-02-01] MEDS: ATORVASTATIN 40 MG TAB PO SCH (08:11)
[2017-02-01] MEDS: POTASSIUM PHOSPHATE/SODIUM PHOSPHATE 250 MG TAB PO SCH ×2 (08:11→21:25)
[2017-02-01] MEDS: MEGESTROL ACETATE SUSP 400 MG/10 ML CUP PO SCH ×2 (08:11→21:28)
[2017-02-01] MEDS: guaiFENesin E.R. 600 MG TAB PO SCH ×2 (08:12→21:25)
[2017-02-01] MEDS: CALCIUM CARBONATE 500 MG CHEWABLE TAB CHEW SCH ×2 (08:12→21:25)
[2017-02-01] MEDS: MULTIVITAMINS/MINERALS THERAPEUTIC TAB PO SCH (08:12)
[2017-02-01] MEDS: HYDROXYCHLOROQUINE SULFATE 200 MG TAB PO SCH (08:12)
[2017-02-01] MEDS: METOPROLOL TARTRATE 25 MG TAB PO SCH ×2 (08:12→21:00)
[2017-02-01] MEDS: PANTOPRAZOLE SOD 40 MG DELAYED RELEASE TAB PO SCH (08:12)
[2017-02-01] MEDS: FLUTICASONE PROPIONATE 50 MCG/ACT 16 GM NASAL SPRAY NASAL SCH ×2 (08:13→21:00)
[2017-02-01] MEDS: MUPIROCIN 2% OINT 1 APPLIC/GM SYR NASAL SCH ×2 (08:16→21:00)
[2017-02-01] MEDS: INSULIN GLARGINE 1,000 UNITS/10 ML VIAL SQ SCH ×2 (08:21→21:33)
[2017-02-01] MEDS: INSULIN ASPART SUPPLEMENTAL SCALE SQ SCH ×4 (08:21→21:32)
[2017-02-01] MEDS: DOCUSATE SODIUM 50 MG/SENNA 8.6 MG TAB PO SCH ×2 (08:22→21:25)
[2017-02-01] MEDS: SODIUM CHLORIDE 0.9% FLUSH 10 ML FLUSH IVF SCH (08:22)
[2017-02-01] MEDS ORDERED: predniSONE 20 MG TAB PO SCH (09:00)
[2017-02-01 11:04] LABS: HEMATOCRIT 35.4 % (35.0-46.0); MEAN CELL VOLUME 90.2 FL (80.0-100.0); MEAN CORPUSCULAR HEMOGLOBIN 29.3 PG (27.0-34.0); MEAN CORPUSCULAR HGB CONC 32.6 % (32.0-36.0); PLATELET COUNT 188 TH/MM3 (150-450); RED BLOOD COUNT 3.93 MIL/MM3 (4.00-5.30); RED CELL DISTRIBUTION WIDTH 17.1 % (11.6-17.2); REVIEW FLAG FINAL; WHITE BLOOD COUNT 15.8 TH/MM3 (4.0-11.0)
--- NOTE | 2017-02-01 13:29 | HHI.NPPN ---
Subjective General Problems: Anemia Renal Failure: Chronic, Acute Interval History Lying in bed, awake/alert. No new concerns. She is not having diarrhea. (Eva Marcelo) Review of Systems General Constitutional: Fatigue (Eva Marcelo) Musculoskeletal MS Remarks generalized muscle aches (Eva Marcelo) Objective Data Data Vital Signs Date Time Temp Pulse Resp B/P (MAP) Pulse Ox O2 Delivery O2 Flow Rate FiO2 02/01/17 12:00 97.0 91 18 179/86 (117) 96 02/01/17 08:00 Room Air 02/01/17 08:00 97.8 96 18 189/100 (129) 94 02/01/17 07:52 98 02/01/17 04:00 98.5 101 20 169/94 (119) 95 02/01/17 00:00 98.2 100 20 164/94 (117) 94 01/31/17 20:45 Room Air 01/31/17 20:00 97.7 100 20 169/87 (114) 96 01/31/17 19:36 97 01/31/17 16:00 Room Air 01/31/17 16:00 98.4 84 17 144/79 (100) 100 (Eva Marcelo) -: 02/01/17 1047 02/01/17 0656 Physical Exam General Appearance: Well Developed, Well Nourished, No Acute Distress, Comfortable (Eva Marcelo) Eyes Eye Exam: Pupils Equal (Eva Marcelo) Throat Throat Exam: Oral Mucosa Annetta & Moist (Eva Marcelo) Neck Neck Exam: Neck Supple, Trachea Midline (Eva Marcelo) Pulmonary Resp Exam: Clear Bilaterally, Breath Sounds Equal, No Distress, Decreased Bases (Eva Marcelo) Cardiology CV Exam: Regular, Normal Sinus Rhythm (Eva Marcelo) Gastrointestinal/Abdomen GI Exam: Soft, Non-Tender, Bowel Sounds Present (Eva Marcelo) Musculoskeletal MS Exam: Joints Intact, Normal Tone, Good Strength (Eva Marcelo) Integumentary Skin Exam: Clear, Warm, Dry, Intact (Eva Marcelo) Extremeties Extremities Exam: Pedal Pulses Palpable, Trace Edema (Eva Marcelo) Neurologic Neuro Exam: Alert, Awake, Oriented, Speech Clear, Moving All Extremities (Eva Marcelo) Psychiatric Psych Exam: Appropriate Responses (Eva Marcelo) PUD Prophylasis PUD Prophylaxis: Protonix (Eva Marcelo) Assessment/Plan Discussed Condition With: Patient Assessment Summary: REGAN/Acute Renal Failure, Anemia of CKD, Hypertension, Diabetes Mellitus Problem List: (1) Acute kidney failure ICD Codes: N17.9 - Acute kidney failure, unspecified Status: Acute Plan: REGAN on CKD 3. She required one HD treatment on 01/22 She is in renal recovery; Renal function improving she is non oliguric without meade catheter Kidney function has stabilized. Cleared for discharge from renal perspective. We will follow in CKD clinic after discharge Prednisone being tapered, currently on 10 mg daily, reduce to 5 mg beginning tomorrow x 4 days then stop, order has been entered IVF not required. (2) CKD (chronic kidney disease), stage III ICD Codes: N18.3 - Chronic kidney disease, stage 3 (moderate) Status: Acute Plan: Due to diabetic nephropathy monitor renal function her baseline creatinine is 1.3-1.7 (3) UTI (urinary tract infection) ICD Codes: N39.0 - Urinary tract infection Status: Acute Plan: culture reviewed, she is asymptomatic, not on antibiotics ID has evaluated meade has been removed (4) DKA (diabetic ketoacidoses) ICD Codes: E13.10 - Other specified diabetes mellitus with ketoacidosis without coma Status: Acute Plan: resolved, monitor for recurrence (5) Metabolic acidosis ICD Codes: E87.2 - Acidosis Status: Acute Plan: Resolved. monitor Plan we will sign off at this time; she is cleared for discharge from renal perspective (Eva Marcelo) Plan patient was seen and examined. Agree with above assessment and plan. (Valdez Patterson MD) Problem Qualifiers (1) DKA (diabetic ketoacidoses): Eva Marcelo Feb 01, 2017 13:29 Valdez Patterson MD Feb 01, 2017 16:31
--- NOTE | 2017-02-01 14:58 | HHI.PR ---
Subjective Remarks Patient feels weak today but has been participating with PT. Diarrhea remains present. Creatinine level is now 1.94. Objective Vital Signs Date Time Temp Pulse Resp B/P (MAP) Pulse Ox O2 Delivery O2 Flow Rate FiO2 02/01/17 12:00 Room Air 02/01/17 12:00 97.0 91 18 179/86 (117) 96 02/01/17 08:00 Room Air 02/01/17 08:00 97.8 96 18 189/100 (129) 94 02/01/17 07:52 98 02/01/17 04:00 98.5 101 20 169/94 (119) 95 02/01/17 00:00 98.2 100 20 164/94 (117) 94 01/31/17 20:45 Room Air 01/31/17 20:00 97.7 100 20 169/87 (114) 96 01/31/17 19:36 97 01/31/17 16:00 Room Air 01/31/17 16:00 98.4 84 17 144/79 (100) 100 I/O 01/31/17 01/31/17 01/31/17 02/01/17 02/01/17 02/01/17 07:00 15:00 23:00 07:00 15:00 23:00 Intake Total 820 ml 1046 ml 480 ml Output Total 550 ml 150 ml 100 ml Balance 270 ml 896 ml 380 ml Intake Oral 720 ml 1040 ml 480 ml IV Total 100 ml 6 ml Output Urine Total 550 ml 150 ml 100 ml # Voids 2 # Bowel Movements 2 Result Diagram: 02/01/17 1047 02/01/17 0656 Objective Remarks GENERAL: NAD, A&Ox3 HEAD: Normocephalic. NECK: Supple, trachea midline. No lymphadenopathy. EYES: No scleral icterus. No injection or drainage. CARDIOVASCULAR: Regular rate and rhythm without murmurs, gallops, or rubs. RESPIRATORY: Breath sounds equal bilaterally. No accessory muscle use. GASTROINTESTINAL: Abdomen soft, non-tender, nondistended. MUSCULOSKELETAL: No cyanosis, or edema. SKIN: Warm and dry. NEURO: No focal neurological deficitis. A/P Problem List: (1) CKD (chronic kidney disease), stage III ICD Code: N18.3 - Chronic kidney disease, stage 3 (moderate) Status: Acute (2) DM (diabetes mellitus) type I uncontrolled with renal manifestation ICD Code: E10.29 - Uncontrolled type 1 diabetes mellitus with renal manifestations; E10.65 - Type 1 diabetes mellitus with hyperglycemia Status: Chronic (3) G6P deficiency (qjtjuyf-2-cokaocaaqgx deficiency) ICD Code: E74.01 - Bpggdti-7-tuqxsfwdsax deficiency Status: Acute (4) Lupus ICD Code: M32.9 - Systemic lupus erythematosus Status: Chronic (5) Acute renal failure (ARF) ICD Code: N17.9 - Acute kidney failure, unspecified Status: Acute (6) Lupus (systemic lupus erythematosus) ICD Code: M32.9 - Systemic lupus erythematosus, unspecified Status: Acute Assessment and Plan Assessment and plan 46-year-old female with lupus, admitted secondary to tib-fib fracture with recent acute renal failure. Stable status post transfusion. Renal function continues to improve today. Creatinine 1.94. Continue to monitor renal function. Continue PT. Attempting to return to home eventually in approximately 4-6 days. Acute blood loss anemia Transfuse 2 units packed red blood cells on 01/29/17 Improved Follow CBC Evaluate stool for occult blood Acute renal failure Chronic kidney disease stage III Improving thus far Etiology may be related to lupus exacerbation Continue steroids Continue to follow renal function Dialysis if needed Diabetes mellitus type 2 Steroids may cause hyperglycemia, but despite this steroids might be more beneficial this point Follow blood sugars Adjust Lantus if needed High-dose sliding scale Diabetic diet Follow blood sugars Lupus Continue Plaquenil Continue steroids Seizure No recent activity Continue Trileptal Closed right tib-fib fracture Continue PT Patient had intramedullary yuri for treatment Continue vitamin D Anemia Stable Follow CBC for any changes Cardiopulmonary arrest Resolved Event occurred Status post CODE BLUE after receiving Versed and fentanyl for conscious sedation. She became bradycardic and hypoxic. No ACLS drugs given. Resolved. IR to adjust meds for sedation History of CVA Chronic right hemiplegia Supportive care Follow clinically Continue PT and OT DVT prophylaxis SCDs and Lovenox Discharge Planning Not stable for discharge at this point No payor source for rehabilitation Umesh Pandya MD Feb 01, 2017 14:58
[2017-02-01] MEDS: MIRTAZAPINE ODT 15 MG TAB PO SCH (21:25)
[2017-02-02] VITALS (7 sets, daily range): BP systolic 146–179; BP diastolic 66–91; PULSE 89–105; RESP 18–20; TEMP 97.9–100.2; O2SAT 90–95
[2017-02-02] MEDS: hydrALAZINE HCL 50 MG TAB PO SCH ×3 (05:55→21:02)
[2017-02-02] MEDS: metroNIDAZOLE 500 MG TAB PO SCH ×3 (05:55→21:02)
[2017-02-02] MEDS: INSULIN ASPART SUPPLEMENTAL SCALE SQ SCH ×4 (08:00→21:00)
[2017-02-02] MEDS: SODIUM CHLORIDE 0.9% FLUSH 10 ML FLUSH IVF SCH (09:00)
[2017-02-02] MEDS: CALCIUM CARBONATE 500 MG CHEWABLE TAB CHEW SCH ×2 (09:45→21:03)
[2017-02-02] MEDS: FLUTICASONE PROPIONATE 50 MCG/ACT 16 GM NASAL SPRAY NASAL SCH ×2 (09:48→21:00)
[2017-02-02] MEDS: MUPIROCIN 2% OINT 1 APPLIC/GM SYR NASAL SCH ×2 (09:48→21:00)
[2017-02-02] MEDS: predniSONE 5 MG TAB PO SCH (09:49)
[2017-02-02] MEDS: POTASSIUM PHOSPHATE/SODIUM PHOSPHATE 250 MG TAB PO SCH ×2 (09:49→21:03)
[2017-02-02] MEDS: DOCUSATE SODIUM 50 MG/SENNA 8.6 MG TAB PO SCH ×2 (09:50→21:00)
[2017-02-02] MEDS: ATORVASTATIN 40 MG TAB PO SCH (09:50)
[2017-02-02] MEDS: guaiFENesin E.R. 600 MG TAB PO SCH ×2 (09:50→21:03)
[2017-02-02] MEDS: METOPROLOL TARTRATE 50 MG TAB PO SCH ×2 (09:50→21:03)
[2017-02-02] MEDS: MEGESTROL ACETATE SUSP 400 MG/10 ML CUP PO SCH ×2 (09:50→21:03)
[2017-02-02] MEDS: HYDROXYCHLOROQUINE SULFATE 200 MG TAB PO SCH (09:50)
[2017-02-02] MEDS: MULTIVITAMINS/MINERALS THERAPEUTIC TAB PO SCH (09:50)
[2017-02-02] MEDS: PANTOPRAZOLE SOD 40 MG DELAYED RELEASE TAB PO SCH (09:50)
[2017-02-02] MEDS: OXcarbazepine 300 MG TAB PO SCH ×2 (09:50→21:03)
[2017-02-02] MEDS: INSULIN GLARGINE 1,000 UNITS/10 ML VIAL SQ SCH ×2 (10:02→21:08)
--- NOTE | 2017-02-02 11:35 | HHI.PR ---
Subjective Remarks Slightly improved compared to yesterday in regards to energy. Patient's able to work with PT today. Blood pressures are elevated. Objective Vital Signs Date Time Temp Pulse Resp B/P (MAP) Pulse Ox O2 Delivery O2 Flow Rate FiO2 02/02/17 08:00 100.2 104 20 175/86 (115) 90 02/02/17 08:00 100.2 104 20 175/86 (115) 90 02/02/17 04:00 98.8 101 18 179/66 (103) 92 02/02/17 04:00 Room Air 02/02/17 00:00 97.9 94 18 173/91 (118) 94 02/02/17 00:00 Room Air 02/01/17 20:00 92 02/01/17 20:00 98.3 93 18 155/76 (102) 92 02/01/17 20:00 Room Air 02/01/17 16:00 Room Air 02/01/17 16:00 98.4 88 18 158/84 (108) 96 02/01/17 12:00 Room Air 02/01/17 12:00 97.0 91 18 179/86 (117) 96 I/O 02/01/17 02/01/17 02/01/17 02/02/17 02/02/17 02/02/17 06:59 14:59 22:59 06:59 14:59 22:59 Intake Total 480 ml 482 ml 120 ml Output Total 100 ml 500 ml 600 ml Balance 380 ml -18 ml -600 ml 120 ml Intake Oral 480 ml 480 ml 120 ml IV Total 2 ml Output Urine Total 100 ml 500 ml 600 ml # Bowel Movements 1 Result Diagram: 02/01/17 1047 02/01/17 0656 Objective Remarks GENERAL: NAD, A&Ox3 HEAD: Normocephalic. NECK: Supple, trachea midline. No lymphadenopathy. EYES: No scleral icterus. No injection or drainage. CARDIOVASCULAR: Regular rate and rhythm without murmurs, gallops, or rubs. RESPIRATORY: Breath sounds equal bilaterally. No accessory muscle use. GASTROINTESTINAL: Abdomen soft, non-tender, nondistended. MUSCULOSKELETAL: No cyanosis, or edema. SKIN: Warm and dry. NEURO: No focal neurological deficitis. A/P Problem List: (1) CKD (chronic kidney disease), stage III ICD Code: N18.3 - Chronic kidney disease, stage 3 (moderate) Status: Acute (2) DM (diabetes mellitus) type I uncontrolled with renal manifestation ICD Code: E10.29 - Uncontrolled type 1 diabetes mellitus with renal manifestations; E10.65 - Type 1 diabetes mellitus with hyperglycemia Status: Chronic (3) G6P deficiency (rvuzdbn-2-zelxbgcrgld deficiency) ICD Code: E74.01 - Oxjkjcl-2-ftlpqezujfm deficiency Status: Acute (4) Lupus ICD Code: M32.9 - Systemic lupus erythematosus Status: Chronic (5) Acute renal failure (ARF) ICD Code: N17.9 - Acute kidney failure, unspecified Status: Acute (6) Lupus (systemic lupus erythematosus) ICD Code: M32.9 - Systemic lupus erythematosus, unspecified Status: Acute Assessment and Plan Assessment and plan 46-year-old female with lupus, admitted secondary to tib-fib fracture with recent acute renal failure. Stable status post transfusion. Renal function continues to improve today. Creatinine 1.94. Continue to monitor renal function. Continue PT. Attempting to return to home eventually in approximately 3-5 days. Acute blood loss anemia Transfuse 2 units packed red blood cells on 01/29/17 Improved Follow CBC Evaluate stool for occult blood Acute renal failure Chronic kidney disease stage III Improving thus far Etiology may be related to lupus exacerbation Continue steroids Continue to follow renal function Dialysis if needed Diabetes mellitus type 2 Steroids may cause hyperglycemia, but despite this steroids might be more beneficial this point Follow blood sugars Adjust Lantus if needed High-dose sliding scale Diabetic diet Follow blood sugars Lupus Continue Plaquenil Continue steroids Seizure No recent activity Continue Trileptal Closed right tib-fib fracture Continue PT Patient had intramedullary yuri for treatment Continue vitamin D Anemia Stable Follow CBC for any changes Cardiopulmonary arrest Resolved Event occurred Status post CODE BLUE after receiving Versed and fentanyl for conscious sedation. She became bradycardic and hypoxic. No ACLS drugs given. Resolved. IR to adjust meds for sedation History of CVA Chronic right hemiplegia Supportive care Follow clinically Continue PT and OT Hypertension Blood pressure medications adjusted today due to uncontrolled hypertension Metoprolol increased to 50 mg by mouth twice a day from 25 mg by mouth twice a day DVT prophylaxis SCDs and Lovenox Discharge Planning Not stable for discharge at this point No payor source for rehabilitation Umesh Pandya MD Feb 02, 2017 11:35
[2017-02-02 13:57] LABS: HEMATOCRIT 31.6 % (35.0-46.0); MEAN CELL VOLUME 90.6 FL (80.0-100.0); MEAN CORPUSCULAR HEMOGLOBIN 29.7 PG (27.0-34.0); MEAN CORPUSCULAR HGB CONC 32.7 % (32.0-36.0); PLATELET COUNT 141 TH/MM3 (150-450); RED BLOOD COUNT 3.49 MIL/MM3 (4.00-5.30); RED CELL DISTRIBUTION WIDTH 17.7 % (11.6-17.2); REVIEW FLAG FINAL; WHITE BLOOD COUNT 26.6 TH/MM3 (4.0-11.0)
[2017-02-02 14:26] LABS: BICARBONATE 26.7 MEQ/L (21.0-32.0); POTASSIUM 3.7 MEQ/L (3.5-5.1)
[2017-02-02] MEDS: MIRTAZAPINE ODT 15 MG TAB PO SCH (21:02)
[2017-02-03] VITALS (7 sets, daily range): BP systolic 152–179; BP diastolic 77–92; PULSE 87–95; RESP 16–20; TEMP 97.9–98.9; O2SAT 93–98
[2017-02-03] MEDS: hydrALAZINE HCL 50 MG TAB PO SCH ×3 (05:50→21:24)
[2017-02-03] MEDS: metroNIDAZOLE 500 MG TAB PO SCH ×3 (05:50→21:24)
[2017-02-03] MEDS: INSULIN ASPART SUPPLEMENTAL SCALE SQ SCH ×4 (08:00→20:11)
[2017-02-03 08:32] LABS: HEMATOCRIT 32.6 % (35.0-46.0); MEAN CELL VOLUME 91.4 FL (80.0-100.0); MEAN CORPUSCULAR HEMOGLOBIN 29.7 PG (27.0-34.0); MEAN CORPUSCULAR HGB CONC 32.5 % (32.0-36.0); PLATELET COUNT 132 TH/MM3 (150-450); RED BLOOD COUNT 3.56 MIL/MM3 (4.00-5.30); RED CELL DISTRIBUTION WIDTH 17.3 % (11.6-17.2); REVIEW FLAG FINAL; WHITE BLOOD COUNT 21.4 TH/MM3 (4.0-11.0)
[2017-02-03 08:35] LABS: BICARBONATE 28.1 MEQ/L (21.0-32.0); POTASSIUM 3.9 MEQ/L (3.5-5.1)
[2017-02-03] MEDS: CALCIUM CARBONATE 500 MG CHEWABLE TAB CHEW SCH ×2 (08:55→21:24)
[2017-02-03] MEDS: MUPIROCIN 2% OINT 1 APPLIC/GM SYR NASAL SCH ×2 (08:56→21:24)
[2017-02-03] MEDS: SODIUM CHLORIDE 0.9% FLUSH 10 ML FLUSH IVF SCH (08:56)
[2017-02-03] MEDS: ERGOCALCIFEROL (VIT D2) 50,000 UNIT CAP PO SCH (08:57)
[2017-02-03] MEDS: predniSONE 5 MG TAB PO SCH (08:57)
[2017-02-03] MEDS: FLUTICASONE PROPIONATE 50 MCG/ACT 16 GM NASAL SPRAY NASAL SCH ×2 (08:57→21:00)
[2017-02-03] MEDS: POTASSIUM PHOSPHATE/SODIUM PHOSPHATE 250 MG TAB PO SCH ×2 (08:57→21:24)
[2017-02-03] MEDS: PANTOPRAZOLE SOD 40 MG DELAYED RELEASE TAB PO SCH (08:58)
[2017-02-03] MEDS: ATORVASTATIN 40 MG TAB PO SCH (08:58)
[2017-02-03] MEDS: DOCUSATE SODIUM 50 MG/SENNA 8.6 MG TAB PO SCH ×2 (08:58→21:23)
[2017-02-03] MEDS: HYDROXYCHLOROQUINE SULFATE 200 MG TAB PO SCH (08:58)
[2017-02-03] MEDS: MEGESTROL ACETATE SUSP 400 MG/10 ML CUP PO SCH ×2 (08:58→21:27)
[2017-02-03] MEDS: guaiFENesin E.R. 600 MG TAB PO SCH ×2 (08:58→21:23)
[2017-02-03] MEDS: METOPROLOL TARTRATE 50 MG TAB PO SCH ×2 (08:58→21:24)
[2017-02-03] MEDS: MULTIVITAMINS/MINERALS THERAPEUTIC TAB PO SCH (08:59)
[2017-02-03] MEDS: OXcarbazepine 300 MG TAB PO SCH ×2 (08:59→21:24)
[2017-02-03] MEDS: INSULIN GLARGINE 1,000 UNITS/10 ML VIAL SQ SCH ×2 (09:00→21:44)
--- NOTE | 2017-02-03 11:36 | HHI.PR ---
Subjective Remarks Continued improvement in renal function. Creatinine levels 1.58. This is better than her baseline. Hemoglobin level is 10.6 today and previously is 10.3. Hemoglobin levels appear stable without evidence of active bleed. Plan for discharge tomorrow. Objective Vital Signs Date Time Temp Pulse Resp B/P (MAP) Pulse Ox O2 Delivery O2 Flow Rate FiO2 02/03/17 08:00 98.5 95 18 167/83 (111) 96 02/03/17 04:00 Room Air 02/03/17 04:00 98.9 93 20 179/88 (118) 93 02/03/17 00:00 98.5 87 16 162/77 (105) 93 02/03/17 00:00 Room Air 02/02/17 20:00 98.5 89 18 155/71 (99) 94 02/02/17 20:00 90 02/02/17 20:00 Room Air 02/02/17 19:49 105 02/02/17 16:00 98.3 91 19 146/75 (98) 95 02/02/17 12:00 98.8 94 20 171/86 (114) 94 I/O 02/02/17 02/02/17 02/02/17 02/03/17 02/03/17 02/03/17 07:00 15:00 23:00 07:00 15:00 23:00 Intake Total 120 ml 760 ml 480 ml Output Total 600 ml 1300 ml 500 ml Balance -600 ml 120 ml -540 ml -20 ml Intake Oral 120 ml 760 ml 480 ml Output Urine Total 600 ml 900 ml 500 ml Stool Total 400 ml # Bowel Movements 0 Result Diagram: 02/03/17 0644 02/03/17 0644 Objective Remarks GENERAL: NAD, A&Ox3 HEAD: Normocephalic. NECK: Supple, trachea midline. No lymphadenopathy. EYES: No scleral icterus. No injection or drainage. CARDIOVASCULAR: Regular rate and rhythm without murmurs, gallops, or rubs. RESPIRATORY: Breath sounds equal bilaterally. No accessory muscle use. GASTROINTESTINAL: Abdomen soft, non-tender, nondistended. MUSCULOSKELETAL: No cyanosis, or edema. SKIN: Warm and dry. NEURO: No focal neurological deficitis. A/P Problem List: (1) CKD (chronic kidney disease), stage III ICD Code: N18.3 - Chronic kidney disease, stage 3 (moderate) Status: Acute (2) DM (diabetes mellitus) type I uncontrolled with renal manifestation ICD Code: E10.29 - Uncontrolled type 1 diabetes mellitus with renal manifestations; E10.65 - Type 1 diabetes mellitus with hyperglycemia Status: Chronic (3) G6P deficiency (ngrkjjg-1-flcwzxarltu deficiency) ICD Code: E74.01 - Annyekc-8-lbygssfjwui deficiency Status: Acute (4) Lupus ICD Code: M32.9 - Systemic lupus erythematosus Status: Chronic (5) Acute renal failure (ARF) ICD Code: N17.9 - Acute kidney failure, unspecified Status: Acute (6) Lupus (systemic lupus erythematosus) ICD Code: M32.9 - Systemic lupus erythematosus, unspecified Status: Acute Assessment and Plan Assessment and plan 46-year-old female with lupus, admitted secondary to tib-fib fracture with recent acute renal failure. Stable status post transfusion. Renal function continues to improve today. Creatinine 1.58. Continue to monitor renal function. Continue PT. plan for discharge tomorrow. Acute blood loss anemia Transfuse 2 units packed red blood cells on 01/29/17 Improved Follow CBC Evaluate stool for occult blood Acute renal failure Chronic kidney disease stage III Improving thus far Etiology may be related to lupus exacerbation Continue steroids Continue to follow renal function Dialysis if needed Diabetes mellitus type 2 Steroids may cause hyperglycemia, but despite this steroids might be more beneficial this point Follow blood sugars Adjust Lantus if needed High-dose sliding scale Diabetic diet Follow blood sugars Lupus Continue Plaquenil Continue steroids Seizure No recent activity Continue Trileptal Closed right tib-fib fracture Continue PT Patient had intramedullary yuri for treatment Continue vitamin D Anemia Stable Follow CBC for any changes Cardiopulmonary arrest Resolved Event occurred Status post CODE BLUE after receiving Versed and fentanyl for conscious sedation. She became bradycardic and hypoxic. No ACLS drugs given. Resolved. IR to adjust meds for sedation History of CVA Chronic right hemiplegia Supportive care Follow clinically Continue PT and OT Hypertension Blood pressure medications adjusted today due to uncontrolled hypertension Metoprolol increased to 50 mg by mouth twice a day from 25 mg by mouth twice a day DVT prophylaxis SCDs and Lovenox Discharge Planning Not stable for discharge at this point No payor source for rehabilitation Umesh Pandya MD Feb 03, 2017 11:35
[2017-02-03] MEDS ORDERED: BEDSIDE COMMODE1 MI1 EXTERNAL (11:40)
[2017-02-03] MEDS ORDERED: WALKER/ADULT/FO1 MIS (11:40)
[2017-02-03] MEDS ORDERED: LACTTAB8 PO (11:47)
[2017-02-03] MEDS: MIRTAZAPINE ODT 15 MG TAB PO SCH (21:24)
[2017-02-04] VITALS (15 sets, daily range): BP systolic 112–153; BP diastolic 57–74; PULSE 92–105; RESP 20–22; TEMP 94–100.6; O2SAT 86–96
[2017-02-04] MEDS: RESP: ALBUTEROL 2.5 MG/IPRATROPIUM 0.5 MG NEB (PRN) NEB (05:28)
[2017-02-04 05:54] LABS: BLOOD GAS BASE EXCESS 0.1 mmol/L (-2-2); BLOOD GAS CARBOXYHEMOGLOBIN 1.6 % (0-4); BLOOD GAS HCO3 24 mmol/L (22-26); BLOOD GAS METHEMOGLOBIN 0.6 % (0-2); BLOOD GAS O2 HGB SATURATION 86 % (90-100); BLOOD GAS OXYGEN CONTENT 13.9 Vol % (12.0-20.0); BLOOD GAS PCO2 41 mmHg (38-42); BLOOD GAS PO2 54 mmHG (61-120); BLOOD GAS TOTAL HGB 11.5 G/DL (12.0-16.0); TEMP CORR TO 98.6
[2017-02-04 05:55] LABS: CRITICAL VALUE YES; DRAW SITE RT RADIAL; LITER FLOW 12 L/M; NUMBER OF ARTERIAL PUNCTURES 1; OXYGEN DEVICE NONREB MASK; STAT YES; ULNAR PULSE PRESENT
[2017-02-04] MEDS ORDERED: BUMETANIDE INJ 1 MG/4 ML VIAL IV PUSH ONE (06:00)
[2017-02-04] MEDS: hydrALAZINE HCL 50 MG TAB PO SCH ×3 (06:00→21:54)
--- NOTE | 2017-02-04 06:14 | HHI.PR ---
Addendum to Inpatient Note Addendum Reason: Additional Documentation Additional Information Rapid response was called on this patient as patient was found to be hypoxic with a congested sound audible from a distance. Reason staff has reported that patient was complaining of some cough and that she was asking initially for Mucinex. Nurse was telling her that since her Mucinex is not due yet, that she would have to wait. However when respiratory therapist came to check on patient during his routine rounds, he has noted that patient was saturating 79% on room air. Therefore respiratory response was called. Came to see patient at the bedside. Chart reviewed. pt is awake, alert, oriented. On nonrebreather. Saturating above 90%. Noted to be in acute respiratory distress with audible congestion from a distance. Was also coughing. Warm to touch. Likely febrile. Heart rate is regular, no murmur appreciated. Positive JVD. Lung exam reveals bilateral ramya rales. Abdomen is soft and nontender. Lower extremity shows 3+ pitting edema up to mid thighs. Her fingerstick was 170s. Latest echo report reviewed. Patient has grade 1 diastolic heart failure. Impression: Acute respiratory failure- hypoxemic- likely secondary to CHF exacerbation. Acute on chronic CHF exacerbation Fever on examination. With productive cough, suspects ammonia/sepsis. Plan: ABG stat was drawn. Results of ABGreviewed. Showed significant hypoxia. Nebulizers when necessary. morphine when necessary for pain. Nebs when necessary and scheduled. ABG resultsreviewed. Chest x-ray personally reviewed. Pulmonary venous congestion bilaterally. Left lower lobe infiltrates. Bumex 1 mg IV 1 dose now. BiPAP 12 over 5 FiO2 70%. She was saturating 93% on this. Repeat ABG in about 40 minutes. Blood work including CBC, chemistry, BNP I have informed patient that there would like to transfer her to intensive care unit for close monitoring. However patient adamantly refuses to be transferred to intensive care unit. She was there previously and has had that experience. Therefore we would keep her on medical floors with close monitoring on BiPAP. Patient is informed that if she does not improve within an hour after BiPAP administration, she would have to be transferred out. Patient is agreeable to this. critical care time 30min Delvis Bello MD Feb 04, 2017 06:14
--- NOTE | 2017-02-04 06:19 | RADRPT ---
EXAM DATE/TIME: 02/04/2017 05:48 [facility] COMPARISON: CHEST SINGLE AP, January 21, 2017, 13:58. INDICATIONS : Shortness of breath. MEDICAL HISTORY : Renal insufficiency, chronic. Diabetes mellitus type II. Seizures. SURGICAL HISTORY : Cholecystectomy. Hysterectomy. section. Right tib/fib. Left foot ENCOUNTER: Subsequent ACUITY: 1 day PAIN SCORE: Non-responsive. LOCATION: Bilateral chest FINDINGS: A single view of the chest demonstrates significant bilateral infiltrates left greater than right, en tirely new since 01/21/17. The cardiomediastinal contours are unremarkable. Osseous structures are i ntact. CONCLUSION: Diffuse infiltrates left greater than right possible pneumonia. Carmelo Orellana MD on February 04, 2017 at 6:16 Board Certified Radiologist. This report was verified electronically.
[2017-02-04 07:32] LABS: BLOOD GAS BASE EXCESS 0.7 mmol/L (-2-2); BLOOD GAS CARBOXYHEMOGLOBIN 1.4 % (0-4); BLOOD GAS HCO3 25 mmol/L (22-26); BLOOD GAS O2 HGB SATURATION 94 % (90-100); BLOOD GAS OXYGEN CONTENT 15.1 Vol % (12.0-20.0); BLOOD GAS PCO2 42 mmHg (38-42); BLOOD GAS PO2 86 mmHg (61-120); BLOOD GAS TOTAL HGB 11.3 G/DL (12.0-16.0); TEMP CORR TO 98.6
[2017-02-04 07:35] LABS: CRITICAL VALUE NO; DRAW SITE LT RADIAL; FIO2 70 %; NUMBER OF ARTERIAL PUNCTURES 1; OXYGEN DEVICE BIPAP; STAT NO; ULNAR PULSE PRESENT; VENT SETTINGS IPAP12/PEEP6/PS6
[2017-02-04] MEDS: SODIUM CHLORIDE 0.9% FLUSH 10 ML FLUSH IVF SCH (07:44)
[2017-02-04] MEDS: POTASSIUM PHOSPHATE/SODIUM PHOSPHATE 250 MG TAB PO SCH ×2 (08:06→21:29)
[2017-02-04] MEDS: guaiFENesin E.R. 600 MG TAB PO SCH ×2 (08:07→21:29)
[2017-02-04] MEDS: MULTIVITAMINS/MINERALS THERAPEUTIC TAB PO SCH (08:07)
[2017-02-04] MEDS: PANTOPRAZOLE SOD 40 MG DELAYED RELEASE TAB PO SCH (08:07)
[2017-02-04] MEDS: METOPROLOL TARTRATE 50 MG TAB PO SCH ×2 (08:07→21:28)
[2017-02-04] MEDS: ATORVASTATIN 40 MG TAB PO SCH (08:07)
[2017-02-04] MEDS: CALCIUM CARBONATE 500 MG CHEWABLE TAB CHEW SCH ×2 (08:07→21:29)
[2017-02-04] MEDS: OXcarbazepine 300 MG TAB PO SCH ×2 (08:07→21:28)
[2017-02-04] MEDS: MUPIROCIN 2% OINT 1 APPLIC/GM SYR NASAL SCH ×2 (08:08→21:29)
[2017-02-04] MEDS: MEGESTROL ACETATE SUSP 400 MG/10 ML CUP PO SCH ×2 (08:08→21:29)
[2017-02-04] MEDS: HYDROXYCHLOROQUINE SULFATE 200 MG TAB PO SCH (08:08)
[2017-02-04] MEDS: predniSONE 5 MG TAB PO SCH (08:08)
[2017-02-04] MEDS: FLUTICASONE PROPIONATE 50 MCG/ACT 16 GM NASAL SPRAY NASAL SCH ×2 (08:09→21:30)
[2017-02-04] MEDS: DOCUSATE SODIUM 50 MG/SENNA 8.6 MG TAB PO SCH ×2 (08:11→21:00)
[2017-02-04 08:29] LABS: HEMATOCRIT 32.7 % (35.0-46.0); MEAN CELL VOLUME 91.8 FL (80.0-100.0); MEAN CORPUSCULAR HEMOGLOBIN 29.7 PG (27.0-34.0); MEAN CORPUSCULAR HGB CONC 32.4 % (32.0-36.0); PLATELET COUNT 107 TH/MM3 (150-450); RED BLOOD COUNT 3.56 MIL/MM3 (4.00-5.30); REVIEW FLAG FINAL; WHITE BLOOD COUNT 10.8 TH/MM3 (4.0-11.0)
[2017-02-04 09:09] LABS: BICARBONATE 26.2 MEQ/L (21.0-32.0); POTASSIUM 3.6 MEQ/L (3.5-5.1)
[2017-02-04 09:34] LABS: CALCIUM-PROTEIN CORRECTED 8.9 MG/DL (8.5-10.1)
[2017-02-04] MEDS: LEVOFLOXACIN 500 MG TAB PO SCH (10:12)
[2017-02-04] MEDS: INSULIN ASPART SUPPLEMENTAL SCALE SQ SCH ×4 (10:14→21:00)
[2017-02-04] MEDS: INSULIN GLARGINE 1,000 UNITS/10 ML VIAL SQ SCH ×2 (10:14→21:51)
[2017-02-04] MEDS ORDERED: BUMETANIDE 1 MG TAB PO ONE (12:15)
[2017-02-04] MEDS: metroNIDAZOLE 500 MG TAB PO SCH ×2 (13:07→21:54)
--- NOTE | 2017-02-04 14:07 | HHI.PR ---
Subjective Remarks Onset of acute dyspnea and respiratory failure overnight. This had not been a problem in the days preceding last night. Etiology may be related to patient's heart or flash pulmonary edema. Possible pneumonia left lung. Objective Vital Signs Date Time Temp Pulse Resp B/P (MAP) Pulse Ox O2 Delivery O2 Flow Rate FiO2 02/04/17 11:26 Nasal Cannula 6.00 70 02/04/17 08:18 92 Nasal Cannula 6.00 02/04/17 08:02 99.1 103 22 122/71 (88) 96 02/04/17 07:35 92 02/04/17 06:19 93 70 02/04/17 05:38 86 Non-Rebreather 15.00 02/04/17 05:30 93 Non-Rebreather 12.00 02/04/17 04:00 98.6 98 20 133/65 (87) 91 02/04/17 00:00 98.5 96 20 153/74 (100) 93 02/03/17 20:00 98.2 90 18 157/91 (113) 95 02/03/17 18:03 91 02/03/17 16:00 97.9 91 18 152/92 (112) 98 I/O 02/03/17 02/03/17 02/03/17 02/04/17 02/04/17 02/04/17 07:00 15:00 23:00 07:00 15:00 23:00 Intake Total 480 ml 480 ml 360 ml Output Total 500 ml 600 ml 950 ml Balance -20 ml -120 ml -590 ml Intake Oral 480 ml 480 ml 360 ml IV Total 0 ml Output Urine Total 500 ml 600 ml 950 ml # Bowel Movements 0 0 3 Result Diagram: 02/04/17 0801 02/04/17 08 Objective Remarks GENERAL: NAD, A&Ox3 HEAD: Normocephalic. NECK: Supple, trachea midline. No lymphadenopathy. EYES: No scleral icterus. No injection or drainage. CARDIOVASCULAR: Regular rate and rhythm without murmurs, gallops, or rubs. RESPIRATORY: Breath sounds equal bilaterally. No accessory muscle use. GASTROINTESTINAL: Abdomen soft, non-tender, nondistended. MUSCULOSKELETAL: No cyanosis, or edema. SKIN: Warm and dry. NEURO: No focal neurological deficitis. A/P Problem List: (1) CKD (chronic kidney disease), stage III ICD Code: N18.3 - Chronic kidney disease, stage 3 (moderate) Status: Acute (2) DM (diabetes mellitus) type I uncontrolled with renal manifestation ICD Code: E10.29 - Uncontrolled type 1 diabetes mellitus with renal manifestations; E10.65 - Type 1 diabetes mellitus with hyperglycemia Status: Chronic (3) G6P deficiency (yjqebbv-5-rhikyfcjvey deficiency) ICD Code: E74.01 - Anyhveu-1-tdivwlyxfzl deficiency Status: Acute (4) Lupus ICD Code: M32.9 - Systemic lupus erythematosus Status: Chronic (5) Acute renal failure (ARF) ICD Code: N17.9 - Acute kidney failure, unspecified Status: Acute (6) Lupus (systemic lupus erythematosus) ICD Code: M32.9 - Systemic lupus erythematosus, unspecified Status: Acute Assessment and Plan Assessment and plan 46-year-old female with lupus, admitted secondary to tib-fib fracture with recent acute renal failure. Stable status post transfusion. BiPAP needed overnight. Now weaned to nasal cannula. Still oxygen dependent. Bumex provided overnight and an additional dose of Bumex given today. Follow for any recurrence Continue to monitor renal function. Acute blood loss anemia Transfuse 2 units packed red blood cells on 01/29/17 Improved Follow CBC Evaluate stool for occult blood Acute renal failure Chronic kidney disease stage III Improving thus far Etiology may be related to lupus exacerbation Continue steroids Continue to follow renal function Dialysis if needed Diabetes mellitus type 2 Steroids may cause hyperglycemia, but despite this steroids might be more beneficial this point Follow blood sugars Adjust Lantus if needed High-dose sliding scale Diabetic diet Follow blood sugars Lupus Continue Plaquenil Continue steroids Seizure No recent activity Continue Trileptal Closed right tib-fib fracture Continue PT Patient had intramedullary yuri for treatment Continue vitamin D Anemia Stable Follow CBC for any changes Cardiopulmonary arrest Resolved Event occurred Status post CODE BLUE after receiving Versed and fentanyl for conscious sedation. She became bradycardic and hypoxic. No ACLS drugs given. Resolved. IR to adjust meds for sedation History of CVA Chronic right hemiplegia Supportive care Follow clinically Continue PT and OT Hypertension Blood pressure medications adjusted today due to uncontrolled hypertension Metoprolol increased to 50 mg by mouth twice a day from 25 mg by mouth twice a day DVT prophylaxis SCDs and Lovenox Discharge Planning Not stable for discharge at this point No payor source for rehabilitation Umesh Pandya MD Feb 04, 2017 14:07
[2017-02-04] MEDS: MIRTAZAPINE ODT 15 MG TAB PO SCH (21:28)
[2017-02-05] VITALS (10 sets, daily range): BP systolic 103–154; BP diastolic 51–75; PULSE 88–106; RESP 18–20; TEMP 98.1–99.1; O2SAT 91–95
[2017-02-05] MEDS: metroNIDAZOLE 500 MG TAB PO SCH ×3 (05:19→21:24)
[2017-02-05] MEDS: hydrALAZINE HCL 50 MG TAB PO SCH ×3 (05:19→21:24)
[2017-02-05 08:09] LABS: AUTOMATED NEUTROPHIL # 13.6 TH/MM3 (1.8-7.7); BASOPHIL % 0.3 % (0.0-2.0); EOSINOPHIL # 0.2 TH/MM3 (0-0.4); EOSINOPHIL % 1.1 % (0.0-4.0); LYMPH % 7.9 % (9.0-44.0); LYMPHOCYTE # 1.2 TH/MM3 (1.0-4.8); MEAN CELL VOLUME 91.9 FL (80.0-100.0); MEAN CORPUSCULAR HEMOGLOBIN 29.9 PG (27.0-34.0); MEAN CORPUSCULAR HGB CONC 32.6 % (32.0-36.0); MONO % 2.7 % (0.0-8.0); PLATELET COUNT 88 TH/MM3 (150-450); RED BLOOD COUNT 2.94 MIL/MM3 (4.00-5.30); RED CELL DISTRIBUTION WIDTH 16.9 % (11.6-17.2); WHITE BLOOD COUNT 15.4 TH/MM3 (4.0-11.0)
[2017-02-05 08:17] LABS: HEMO FLAGS AUTO DIFF
[2017-02-05] MEDS: INSULIN ASPART SUPPLEMENTAL SCALE SQ SCH ×4 (08:17→21:32)
[2017-02-05 08:37] LABS: CALCIUM-PROTEIN CORRECTED 8.5 MG/DL (8.5-10.1); POTASSIUM 3.6 MEQ/L (3.5-5.1); TOTAL BILIRUBIN ADULT 0.3 MG/DL (0.2-1.0)
[2017-02-05] MEDS: MEGESTROL ACETATE SUSP 400 MG/10 ML CUP PO SCH ×2 (09:44→21:23)
[2017-02-05] MEDS: DOCUSATE SODIUM 50 MG/SENNA 8.6 MG TAB PO SCH ×2 (09:45→21:00)
[2017-02-05] MEDS: CALCIUM CARBONATE 500 MG CHEWABLE TAB CHEW SCH ×2 (09:45→21:00)
[2017-02-05] MEDS: MULTIVITAMINS/MINERALS THERAPEUTIC TAB PO SCH (09:46)
[2017-02-05] MEDS: predniSONE 5 MG TAB PO SCH (09:46)
[2017-02-05] MEDS: ATORVASTATIN 40 MG TAB PO SCH (09:46)
[2017-02-05] MEDS: OXcarbazepine 300 MG TAB PO SCH ×2 (09:46→21:24)
[2017-02-05] MEDS: guaiFENesin E.R. 600 MG TAB PO SCH ×2 (09:46→21:23)
[2017-02-05] MEDS: POTASSIUM PHOSPHATE/SODIUM PHOSPHATE 250 MG TAB PO SCH ×2 (09:47→21:24)
[2017-02-05] MEDS: HYDROXYCHLOROQUINE SULFATE 200 MG TAB PO SCH (09:47)
[2017-02-05] MEDS: METOPROLOL TARTRATE 50 MG TAB PO SCH ×2 (09:47→21:24)
[2017-02-05] MEDS: PANTOPRAZOLE SOD 40 MG DELAYED RELEASE TAB PO SCH (09:47)
[2017-02-05] MEDS: INSULIN GLARGINE 1,000 UNITS/10 ML VIAL SQ SCH ×2 (09:49→21:31)
[2017-02-05] MEDS: FLUTICASONE PROPIONATE 50 MCG/ACT 16 GM NASAL SPRAY NASAL SCH ×2 (09:53→21:32)
[2017-02-05] MEDS: MUPIROCIN 2% OINT 1 APPLIC/GM SYR NASAL SCH ×2 (09:54→21:00)
[2017-02-05] MEDS: SODIUM CHLORIDE 0.9% FLUSH 10 ML FLUSH IVF SCH (09:54)
[2017-02-05 10:15] LABS: BANDS 14 % (0-6); EOSINOPHILS 1 % (0-4); PLATELET ESTIMATE SMEAR LOW (NORMAL); PLATELET MORPHOLOGY NORMAL (NORMAL); POLYS (SEG NEUTROPHILS) 77 % (16-70); SCAN/DIFF FINAL DIFF MANUAL; WBC DIFF SAMPLE 100
[2017-02-05] MEDS: LEVOFLOXACIN 500 MG TAB PO SCH (11:49)
--- NOTE | 2017-02-05 13:26 | HHI.PR ---
Subjective Remarks Recent onset of Acute dyspnea and respiratory failure, status post Pulmonary Edema. stable in her bedroom no new Shortness of breath. No nausea, vomit or diarrhea discussed with Nurse. and patient in the room Objective Vital Signs Date Time Temp Pulse Resp B/P (MAP) Pulse Ox O2 Delivery O2 Flow Rate FiO2 02/05/17 11:47 95 Nasal Cannula 6.00 02/05/17 08:00 98.8 95 20 145/75 (98) 92 02/05/17 04:00 99.1 90 18 135/71 (92) 91 02/05/17 00:00 98.1 88 18 103/51 (68) 92 02/04/17 21:15 92 Nasal Cannula 6.00 02/04/17 21:00 Nasal Cannula 6.00 02/04/17 20:00 98.5 93 20 138/67 (90) 92 02/04/17 16:00 99.6 93 20 139/61 (87) 90 I/O 02/04/17 02/04/17 02/04/17 02/05/17 02/05/17 02/05/17 07:00 15:00 23:00 07:00 15:00 23:00 Intake Total 360 ml 600 ml 240 ml Output Total 950 ml 20 ml Balance -590 ml 580 ml 240 ml Intake Oral 360 ml 600 ml 240 ml Output Urine Total 950 ml 20 ml # Voids 1 # Bowel Movements 3 2 Result Diagram: 02/05/17 0700 02/05/17 0700 Imaging Last Impressions Chest X-Ray 02/04/17 0000 Signed Impressions: Service Date/Time: Saturday, February 04, 2017 05:48 - CONCLUSION: Diffuse infiltrates left greater than right possible pneumonia. Carmelo Orellana MD Catheter Placement X-Ray 01/21/17 0000 Signed Impressions: Service Date/Time: Saturday, January 21, 2017 16:07 - CONCLUSION: Uncomplicated line placement as above. Jim Aly MD Central Venous Line 01/19/17 0000 Signed Impressions: Service Date/Time: Thursday, January 19, 2017 10:46 - CONCLUSION: Uncomplicated line placement as above. Jim Aly MD Brain MRI 01/11/17 0000 Signed Impressions: Service Date/Time: Wednesday, January 11, 2017 15:04 - CONCLUSION: 1. Stable focus of abnormal signal involving the left centrum semiovale likely related to prior lacunar infarct. No acute intracranial anatomy. Rafiq Nielson MD Head CT 01/10/17 0917 Signed Impressions: Service Date/Time: Tuesday, January 10, 2017 09:49 - CONCLUSION: 1. Interval development of left sided mastoiditis since 11/22/2016. Clinical correlation is recommended. 2. Otherwise, no acute intracranial abnormality. Eriberto Madison MD Abdomen/Pelvis CT 12/25/16 1100 Signed Impressions: Service Date/Time: Sunday, December 25, 2016 12:00 - CONCLUSION: Interval development of anasarca, small bilateral effusions and small to moderate ascites. No significant ileus, hydronephrosis, mass or lymphadenopathy. Status post cholecystectomy. Bobby Martins MD Abdomen X-Ray 12/25/16 0857 Signed Impressions: Service Date/Time: Sunday, December 25, 2016 09:27 - CONCLUSION: No acute disease. Bobby Martins MD Upper Extremity Ultrasound 12/24/16 0000 Signed Impressions: Service Date/Time: Saturday, December 24, 2016 11:58 - CONCLUSION: Normal examination. Tr Luna MD Renal Ultrasound 12/24/16 0000 Signed Impressions: Service Date/Time: Saturday, December 24, 2016 11:53 - CONCLUSION: 1. Increased echogenicity of the renal cortex which can be seen with underlying medical renal disease. 2. No findings to indicate renal obstruction. 3. Small bilateral effusions and a trace amount of ascites within the abdomen. Umesh Farah MD Tibia/Fibula X-Ray 12/03/16 0000 Signed Impressions: Service Date/Time: Saturday, December 03, 2016 15:09 - CONCLUSION: Excellent alignment of the patient's tibial fracture post rodding. Patient has a minimally displaced fibular fracture as well. Umesh Farah MD Ankle X-Ray 12/02/16 0000 Signed Impressions: Service Date/Time: November 18:16 - CONCLUSION: 1. The ankle mortise is intact. 2. Distal tibial and fibular fractures again noted. Please see right leg report for further details. Javier Marino MD Other Results Laboratory Tests Test 12/02/16 18:55 12/04/16 12:35 7/12/17 05:50 12/24/16 15:50 Activated Partial Thromboplast Time 24.2 SEC Urine Urobilinogen LESS THAN 2.0 MG/DL Urine Mucus FEW /lpf 25-Hydroxy Vitamin D Total 9.4 ng/ML Urine Collection Time 15:50 Test 12/25/16 08:11 12/26/16 06:34 12/29/16 05:25 12/31/16 08:06 Lipase 276 U/L Urine Random Sodium 19 MEQ/L Reticulocyte Count 1.2 % Absolute Reticulocyte Count 32.0 MIL/L Iron Level 55 MCG/DL Total Iron Binding Capacity 73 MCG/DL Percent Iron Saturation 75.5 % Ferritin 758 NG/ML Folate 4.6 NG/ML Calcitonin Level LESS THAN 2.0 pg/mL Parathyroid Hormone (Intact) 33.6 PG/ML Prealbumin 15 MG/DL Test 01/09/17 16:15 01/10/17 10:45 01/10/17 12:15 01/11/17 08:10 Free Phenytoin Level 4.4 mg/L Vitamin B12 Level 713 PG/ML Ammonia LESS THAN 10 MCMOL/L Rapid Plasma Reagin NON-REACTIVE Test 01/12/17 19:55 01/13/17 15:40 01/13/17 16:00 01/14/17 04:30 Direct Bilirubin LESS THAN 0.1 MG/DL Indirect Bilirubin 0.1 MG/DL Thyroid Stimulating Hormone 3rd Gen 1.550 uIU/ML Levetiracetam (Keppra) Level 5.0 mcg/mL Urine Collection Type CATH Urine Transitional Epithelial Cells 0-5 /hpf Urine Hyaline Casts 3-5 /lpf Urine Fine Granular Casts 3-5 /lpf Urine Coarse Granular Casts 25-49 /lpf Urine Yeast (Budding) FEW Lactic Acid Level 0.9 mmol/L Total Creatine Kinase 29 U/L Troponin I LESS THAN 0.02 NG/ML Random Cortisol 9.2 MCG/DL Test 01/14/17 06:45 01/14/17 16:10 01/17/17 06:00 01/17/17 14:15 B-Hydroxybutyrate 3.61 MMOL/L Nasal Screen MRSA (PCR) NEGATIVE Staphylococcus aureus (PCR)(LAB) NEGATIVE Blood Urea Nitrogen 27 MG/DL Creatinine 2.40 MG/DL Random Glucose 187 MG/DL Albumin 1.6 GM/DL Calcium Level 8.2 MG/DL Phosphorus Level 2.8 MG/DL Magnesium Level 2.0 MG/DL Sodium Level 141 MEQ/L Potassium Level 3.8 MEQ/L Chloride Level 106 MEQ/L Carbon Dioxide Level 25.5 MEQ/L Urine Color YELLOW Urine Turbidity CLOUDY Urine pH 6.0 Urine Specific [place] 1.020 Urine Protein 300 OR GREATER mg/dL Urine Glucose (UA) NEG mg/dL Urine Ketones 15 mg/dL Urine Occult Blood MOD Urine Nitrite NEG Urine Bilirubin NEG Urine Leukocyte Esterase TRACE Urine RBC 4-9 /hpf Urine WBC 100-200 /hpf Urine WBC Clumps MOD Urine Squamous Epithelial Cells 0-5 /hpf Urine Amorphous Sediment MOD Urine Bacteria FEW /hpf Microscopic Urinalysis Comment CULTURE INDICATED Test 01/18/17 05:10 01/19/17 10:05 01/27/17 06:00 01/29/17 22:12 Phenytoin (Dilantin) Level 7.5 MCG/ML Prothrombin Time 10.6 SEC Prothromb Time International Ratio 1.0 RATIO Rheumatoid Factor Screen NEGATIVE Rheumatoid Factor Titer IU/ML Anti-Nuclear Antibody Screen NEG Anti-Proteinase 3 (c-ANCA) LESS THAN 1.0 AI Anti-Myeloperoxidase Ab (p-ANCA) LESS THAN 1.0 AI Complement C3 110 MG/DL Complement C4 50 MG/DL Hepatitis B Surface Antigen NEGATIVE Hepatitis B Surface Antibody, Quant GREATER THAN 150 mIU/mL Hepatitis C Antibody NEGATIVE Blood Urea Nitrogen 43 MG/DL Creatinine 2.74 MG/DL Random Glucose 213 MG/DL Albumin 2.0 GM/DL Calcium Level 7.8 MG/DL Phosphorus Level 2.2 MG/DL Sodium Level 143 MEQ/L Potassium Level 4.2 MEQ/L Chloride Level 106 MEQ/L Carbon Dioxide Level 30.4 MEQ/L Stool C. difficile Toxin (PCR) POSITIVE Stl C. difficile Toxin Epiderm 027 PRESUMPTIVE NEGATIVE Test 02/04/17 05:38 02/04/17 07:10 02/04/17 08:01 02/05/17 07:00 Blood Gas Liter Flow 12 L/M Blood Gas Puncture Site LT RADIAL Blood Gas Patient Temperature 98.6 Blood Gas HCO3 25 mmol/L Blood Gas Base Excess 0.7 mmol/L Blood Gas Oxygen Saturation 94 % Arterial Blood pH 7.39 Arterial Blood Partial Pressure CO2 42 mmHg Arterial Blood Partial Pressure O2 86 mmHg Arterial Blood Oxygen Content 15.1 Vol % Arterial Blood Carboxyhemoglobin 1.4 % Arterial Blood Methemoglobin 1.0 % Blood Gas Hemoglobin 11.3 G/DL Oxygen Delivery Device BIPAP Blood Gas Ventilator Setting IPAP12/PEEP6/PS6 Blood Gas Inspired Oxygen 70 % B-Type Natriuretic Peptide 296 PG/ML White Blood Count 15.4 TH/MM3 Red Blood Count 2.94 MIL/MM3 Hemoglobin 8.8 GM/DL Hematocrit 27.0 % Mean Corpuscular Volume 91.9 FL Mean Corpuscular Hemoglobin 29.9 PG Mean Corpuscular Hemoglobin Concent 32.6 % Red Cell Distribution Width 16.9 % Platelet Count 88 TH/MM3 Mean Platelet Volume 10.8 FL Neutrophils (%) (Auto) 88.0 % Lymphocytes (%) (Auto) 7.9 % Monocytes (%) (Auto) 2.7 % Eosinophils (%) (Auto) 1.1 % Basophils (%) (Auto) 0.3 % Neutrophils # (Auto) 13.6 TH/MM3 Lymphocytes # (Auto) 1.2 TH/MM3 Monocytes # (Auto) 0.4 TH/MM3 Eosinophils # (Auto) 0.2 TH/MM3 Basophils # (Auto) 0.0 TH/MM3 CBC Comment AUTO DIFF Differential Total Cells Counted 100 Neutrophils % (Manual) 77 % Band Neutrophils % 14 % Lymphocytes % 4 % Monocytes % 4 % Eosinophils % 1 % Neutrophils # (Manual) 14.0 TH/MM3 Differential Comment FINAL DIFF MANUAL Platelet Estimate LOW Platelet Morphology Comment NORMAL Blood Urea Nitrogen 37 MG/DL Creatinine 1.70 MG/DL Random Glucose 86 MG/DL Total Protein 4.9 GM/DL Albumin 1.6 GM/DL Calcium Level 7.3 MG/DL Alkaline Phosphatase 76 U/L Aspartate Amino Transf (AST/SGOT) 11 U/L Alanine Aminotransferase (ALT/SGPT) 19 U/L Total Bilirubin 0.3 MG/DL Sodium Level 147 MEQ/L Potassium Level 3.6 MEQ/L Chloride Level 112 MEQ/L Carbon Dioxide Level 27.0 MEQ/L Anion Gap 8 MEQ/L Estimat Glomerular Filtration Rate 39 ML/MIN Protein Corrected Calcium 8.5 MG/DL Objective Remarks GENERAL: NAD, A&Ox3 HEAD: Normocephalic. NECK: Supple, trachea midline. No lymphadenopathy. EYES: No scleral icterus. No injection or drainage. CARDIOVASCULAR: Regular rate and rhythm without murmurs, gallops, or rubs. RESPIRATORY: Breath sounds equal bilaterally. No accessory muscle use. GASTROINTESTINAL: Abdomen soft, non-tender, nondistended. MUSCULOSKELETAL: No cyanosis, or edema. SKIN: Warm and dry. NEURO: No focal neurological deficitis. Medications and IVs Current Medications Medications (Trade) Dose Ordered Sig/Marin Route Start Time Stop Time Status Last Admin (Rivka-Colace) 1 tab BID PO 12/03/16 21:00 02/03/17 21:23 (Milk Of Magnesia Liq) 30 ml Q12H PRN PO 12/03/16 16:00 (Dulcolax Supp) 10 mg DAILY PRN RECTAL 12/03/16 16:00 (Catapres) 0.1 mg Q6H PRN PO 12/11/16 13:30 12/27/16 04:20 (Lipitor) 80 mg DAILY PO 12/21/16 09:00 02/05/17 09:46 (Tums Chew) 1,000 mg Q12HR CHEW 12/22/16 21:00 02/05/17 09:45 (Drisdol) 50,000 units Q7D PO 12/23/16 09:00 02/03/17 08:57 (Tylenol) 650 mg Q6H PRN PO 12/24/16 14:15 (D50w (Vial) Inj) 50 ml UNSCH PRN IV 12/26/16 04:30 (Glucagon Inj) 1 mg UNSCH PRN OTHER 12/26/16 04:30 01/19/17 06:11 (Norvasc) 10 mg DAILY PO 12/29/16 09:00 02/05/17 09:46 (Zofran Liq) 4 mg Q6H PRN PO 12/28/16 15:45 01/01/17 02:37 (Protonix) 40 mg DAILY PO 12/29/16 09:00 Future hold 02/05/17 09:47 (Pill Splitter) 1 ea UNSCH PRN OTHER 12/28/16 16:15 (Theragran M Tab) 1 tab DAILY PO 01/01/17 10:15 02/05/17 09:46 (Megace Liq) 400 mg BID PO 01/07/17 21:00 02/05/17 09:44 (Remeron Soltab Odt) 15 mg HS PO 01/09/17 21:00 02/04/17 21:28 (Ativan Inj) 1 mg Q4H PRN IV PUSH 01/10/17 21:00 Miscellaneous Information Patient in critical care unit? Ass... Q361D .XX 01/14/17 06:00 01/14/17 06:00 (Lovenox Inj) 30 mg DAILY SQ 01/14/17 09:00 Future Hold 01/29/17 09:14 (Trileptal) 300 mg BID PO 01/15/17 21:00 02/05/17 09:46 (Mucinex Er) 600 mg BID PO 01/17/17 13:00 02/05/17 09:46 (Plaquenil) 200 mg DAILY PO 01/18/17 12:00 02/05/17 09:47 (NS Flush) DAILY IVF 01/20/17 09:00 02/05/17 09:54 (NS Flush) UNSCH PRN IVF 01/19/17 11:15 ([place] 5-325 Mg) 1 tab Q6H PRN PO 01/19/17 12:15 01/19/17 20:26 (Duoneb Neb) 1 ampule Q2HR NEB PRN NEB 01/21/17 13:45 02/04/17 05:28 (Apresoline Inj) 10 mg Q6H PRN IV PUSH 01/21/17 17:30 01/31/17 16:26 (Apresoline) 50 mg Q8HR PO 01/21/17 17:30 02/05/17 05:19 (NS Flush) UNSCH PRN IVF 01/21/17 18:00 02/02/17 09:47 (Heparin Inj) UNSCH PRN IV FLUSH 01/21/17 18:00 Miscellaneous Information Patient in critical care unit? Ass... Q361D .XX 01/22/17 14:45 01/22/17 14:45 (Bactroban Nasal 2% Oint) 1 applic BID NASAL 01/22/17 21:00 02/04/17 21:29 Sodium Chloride 1,000 ml @ 0 mls/hr TITRATE PRN IV 01/22/17 15:45 01/22/17 13:30 (Heparin Inj) 8,000 units UNSCH PRN IV FLUSH 01/22/17 15:45 Sodium Chloride 1,000 ml @ 200 mls/hr Q5H PRN IV 01/22/17 15:45 Sodium Chloride 200 ml @ 0 mls/hr UNSCH PRN IV 01/22/17 15:45 (Mannitol Inj) 12.5 gm UNSCH PRN IV 01/22/17 15:45 (Albumin 25% Inj) 25 gm UNSCH PRN IV 01/22/17 15:45 (NS Flush) 5 ml UNSCH PRN IV FLUSH 01/22/17 15:45 (Heparin Inj) Dwell Heparin to f... UNSCH PRN OTHER 01/22/17 15:45 01/22/17 15:30 (Gentamicin (Dialysis) Inj) 10 mg UNSCH PRN OTHER 01/22/17 15:45 01/22/17 15:30 (Gelfoam 12 Mm/7 Mm Top) 1 foam UNSCH PRN TOPICAL 01/22/17 15:45 (Zofran Inj) 4 mg UNSCH PRN IV 01/22/17 15:45 (Benadryl) 25 mg UNSCH PRN PO 01/22/17 15:45 (Nitrostat Sl) 0.4 mg UNSCH PRN SL 01/22/17 15:45 (Catapres) 0.1 mg UNSCH PRN PO 01/22/17 15:45 (NovoLOG SUPPLEMENTAL SCALE) 1 HS SQ 01/24/17 21:00 02/01/17 21:32 (NovoLOG SUPPLEMENTAL SCALE) 1 TIDAC SQ 01/24/17 12:00 02/04/17 10:14 (K-Phos Neutral) 250 mg BID PO 01/24/17 12:00 02/05/17 09:47 (Lantus Inj) 8 units BID SQ 01/25/17 21:00 02/05/17 09:49 (Heparin Central Flush) 200 units DAILY PRN IV FLUSH 01/29/17 13:00 01/29/17 14:21 (Flonase Wally Spr) 1 spray BID NASAL 01/30/17 21:00 02/05/17 09:53 (Flagyl) 500 mg Q8HR PO 01/31/17 14:00 02/05/17 05:19 (Lopressor) 50 mg Q12HR PO 02/02/17 09:00 02/05/17 09:47 (Levaquin) 500 mg DAILY@1100 PO 02/04/17 11:00 02/05/17 11:49 A/P Assessment and Plan 46-year-old female with lupus, admitted secondary to tib-fib fracture with recent acute renal failure. Stable status post transfusion. BiPAP needed overnight. Now weaned to nasal cannula. Still oxygen dependent. Bumex provided overnight and an additional dose of Bumex given today. Follow for any recurrence Continue to monitor renal function. Acute blood loss anemia Transfuse 2 units packed red blood cells on 01/29/17 today Hemoglobin 8.8 Acute renal failure Chronic kidney disease stage III Improving thus far Etiology may be related to lupus exacerbation Continue steroids Continue to follow renal function Dialysis if needed Diabetes mellitus type 2 Better control continue sliding scale. Lupus Continue Plaquenil Continue steroids Seizure No recent activity Continue Trileptal Closed right tib-fib fracture Continue PT Patient had intramedullary yuri for treatment Continue vitamin D Anemia Stable Follow CBC for any changes Cardiopulmonary arrest Resolved Event occurred Status post CODE BLUE after receiving Versed and fentanyl for conscious sedation. History of CVA Chronic right hemiplegia Supportive care Follow clinically Continue PT and OT Hypertension controlled. C Diff positive on Metronidazole. Pneumonia last CXR demonstrated some infiltrates started on Levofloxacin. and following. DVT prophylaxis SCDs and Lovenox Discharge Planning Not stable for discharge at this point No payor source for rehabilitation Isacc Salinas MD Feb 05, 2017 13:26
[2017-02-05] MEDS: MIRTAZAPINE ODT 15 MG TAB PO SCH (21:23)
[2017-02-06] VITALS (7 sets, daily range): BP systolic 118–150; BP diastolic 62–68; PULSE 91–106; RESP 18–20; TEMP 98.2–98.6; O2SAT 90–97
[2017-02-06] MEDS: metroNIDAZOLE 500 MG TAB PO SCH ×3 (05:55→21:42)
[2017-02-06] MEDS: hydrALAZINE HCL 50 MG TAB PO SCH ×3 (05:55→21:42)
[2017-02-06] MEDS: INSULIN ASPART SUPPLEMENTAL SCALE SQ SCH ×4 (08:10→21:00)
[2017-02-06] MEDS: DOCUSATE SODIUM 50 MG/SENNA 8.6 MG TAB PO SCH ×2 (09:50→21:00)
[2017-02-06] MEDS: OXcarbazepine 300 MG TAB PO SCH ×2 (09:51→21:41)
[2017-02-06] MEDS: METOPROLOL TARTRATE 50 MG TAB PO SCH ×2 (09:51→21:41)
[2017-02-06] MEDS: PANTOPRAZOLE SOD 40 MG DELAYED RELEASE TAB PO SCH (09:51)
[2017-02-06] MEDS: guaiFENesin E.R. 600 MG TAB PO SCH ×2 (09:51→21:41)
[2017-02-06] MEDS: CALCIUM CARBONATE 500 MG CHEWABLE TAB CHEW SCH ×2 (09:51→21:41)
[2017-02-06] MEDS: MEGESTROL ACETATE SUSP 400 MG/10 ML CUP PO SCH ×2 (09:51→21:41)
[2017-02-06] MEDS: SODIUM CHLORIDE 0.9% FLUSH 10 ML FLUSH IVF SCH (09:51)
[2017-02-06] MEDS: HYDROXYCHLOROQUINE SULFATE 200 MG TAB PO SCH (09:51)
[2017-02-06] MEDS: MULTIVITAMINS/MINERALS THERAPEUTIC TAB PO SCH (09:51)
[2017-02-06] MEDS: POTASSIUM PHOSPHATE/SODIUM PHOSPHATE 250 MG TAB PO SCH ×2 (09:51→21:41)
[2017-02-06] MEDS: ATORVASTATIN 40 MG TAB PO SCH (09:51)
[2017-02-06] MEDS: MUPIROCIN 2% OINT 1 APPLIC/GM SYR NASAL SCH ×2 (09:51→21:00)
[2017-02-06] MEDS: FLUTICASONE PROPIONATE 50 MCG/ACT 16 GM NASAL SPRAY NASAL SCH ×2 (09:53→21:00)
[2017-02-06] MEDS: INSULIN GLARGINE 1,000 UNITS/10 ML VIAL SQ SCH ×2 (09:57→21:46)
[2017-02-06] MEDS: LEVOFLOXACIN 500 MG TAB PO SCH (12:17)
--- NOTE | 2017-02-06 12:20 | HHI.PR ---
Subjective Remarks Recent onset of Acute dyspnea and respiratory failure, status post Pulmonary Edema. stable in her bedroom no new Shortness of breath. No nausea, vomit or diarrhea discussed with Nurse. and patient in the room 02/06: Patient seen in her bedroom stable improving respiratory xiao, discussed with Geography Instructor and her nurse Miss Vizcarra as per notes she is ready for discharge but she developed respiratory insufficiency now improved. No nausea, vomit or diarrhea Objective Vital Signs Date Time Temp Pulse Resp B/P (MAP) Pulse Ox O2 Delivery O2 Flow Rate FiO2 02/06/17 08:10 Nasal Cannula 6.00 02/06/17 08:10 94 02/06/17 08:00 98.2 94 20 146/66 (92) 92 02/06/17 06:00 91 18 134/67 (89) 92 02/06/17 04:00 Nasal Cannula 6.00 02/06/17 00:00 Nasal Cannula 6.00 02/06/17 00:00 98.3 104 20 140/64 (89) 97 02/05/17 20:00 Nasal Cannula 6.00 02/05/17 20:00 98.5 106 18 144/67 (92) 93 02/05/17 19:13 91 02/05/17 17:56 92 Venturi Mask 6.00 02/05/17 16:00 98.2 88 20 154/65 (94) 93 02/05/17 15:11 89 109/55 (73) 92 I/O 02/05/17 02/05/17 02/05/17 02/06/17 02/06/17 02/06/17 07:00 15:00 23:00 07:00 15:00 23:00 Intake Total 240 ml 600 ml Output Total 300 ml Balance 240 ml 600 ml -300 ml Intake Oral 240 ml 600 ml Output Urine Total 300 ml # Voids 1 3 1 # Bowel Movements 1 1 Result Diagram: 02/05/17 0700 02/05/17 0700 Imaging Last Impressions Chest X-Ray 02/04/17 0000 Signed Impressions: Service Date/Time: Saturday, February 04, 2017 05:48 - CONCLUSION: Diffuse infiltrates left greater than right possible pneumonia. Carmelo Orellana MD Catheter Placement X-Ray 01/21/17 0000 Signed Impressions: Service Date/Time: Saturday, January 21, 2017 16:07 - CONCLUSION: Uncomplicated line placement as above. Jim Aly MD Central Venous Line 01/19/17 0000 Signed Impressions: Service Date/Time: Thursday, January 19, 2017 10:46 - CONCLUSION: Uncomplicated line placement as above. Jim Aly MD Brain MRI 01/11/17 0000 Signed Impressions: Service Date/Time: Wednesday, January 11, 2017 15:04 - CONCLUSION: 1. Stable focus of abnormal signal involving the left centrum semiovale likely related to prior lacunar infarct. No acute intracranial anatomy. Rafiq Nielson MD Head CT 01/10/17 0917 Signed Impressions: Service Date/Time: Tuesday, January 10, 2017 09:49 - CONCLUSION: 1. Interval development of left sided mastoiditis since 11/22/2016. Clinical correlation is recommended. 2. Otherwise, no acute intracranial abnormality. Eriberto Madison MD Abdomen/Pelvis CT 12/25/16 1100 Signed Impressions: Service Date/Time: Sunday, December 25, 2016 12:00 - CONCLUSION: Interval development of anasarca, small bilateral effusions and small to moderate ascites. No significant ileus, hydronephrosis, mass or lymphadenopathy. Status post cholecystectomy. Bobby Martins MD Abdomen X-Ray 12/25/16 0857 Signed Impressions: Service Date/Time: Sunday, December 25, 2016 09:27 - CONCLUSION: No acute disease. Bobby Martins MD Upper Extremity Ultrasound 12/24/16 0000 Signed Impressions: Service Date/Time: Saturday, December 24, 2016 11:58 - CONCLUSION: Normal examination. Tr Luna MD Renal Ultrasound 12/24/16 0000 Signed Impressions: Service Date/Time: Saturday, December 24, 2016 11:53 - CONCLUSION: 1. Increased echogenicity of the renal cortex which can be seen with underlying medical renal disease. 2. No findings to indicate renal obstruction. 3. Small bilateral effusions and a trace amount of ascites within the abdomen. Umesh Farah MD Tibia/Fibula X-Ray 12/03/16 0000 Signed Impressions: Service Date/Time: Saturday, December 03, 2016 15:09 - CONCLUSION: Excellent alignment of the patient's tibial fracture post rodding. Patient has a minimally displaced fibular fracture as well. Umesh Farah MD Ankle X-Ray 12/02/16 0000 Signed Impressions: Service Date/Time: November 18:16 - CONCLUSION: 1. The ankle mortise is intact. 2. Distal tibial and fibular fractures again noted. Please see right leg report for further details. Javier Marino MD Other Results Laboratory Tests Test 12/02/16 18:55 12/04/16 12:35 12/22/16 05:50 12/24/16 15:50 Activated Partial Thromboplast Time 24.2 SEC Urine Urobilinogen LESS THAN 2.0 MG/DL Urine Mucus FEW /lpf 25-Hydroxy Vitamin D Total 9.4 ng/ML Urine Collection Time 15:50 Test 12/25/16 08:11 12/26/16 06:34 12/29/16 05:25 12/31/16 08:06 Lipase 276 U/L Urine Random Sodium 19 MEQ/L Reticulocyte Count 1.2 % Absolute Reticulocyte Count 32.0 MIL/L Iron Level 55 MCG/DL Total Iron Binding Capacity 73 MCG/DL Percent Iron Saturation 75.5 % Ferritin 758 NG/ML Folate 4.6 NG/ML Calcitonin Level LESS THAN 2.0 pg/mL Parathyroid Hormone (Intact) 33.6 PG/ML Prealbumin 15 MG/DL Test 01/09/17 16:15 01/10/17 10:45 01/10/17 12:15 01/11/17 08:10 Free Phenytoin Level 4.4 mg/L Vitamin B12 Level 713 PG/ML Ammonia LESS THAN 10 MCMOL/L Rapid Plasma Reagin NON-REACTIVE Test 01/12/17 19:55 01/13/17 15:40 01/13/17 16:00 01/14/17 04:30 Direct Bilirubin LESS THAN 0.1 MG/DL Indirect Bilirubin 0.1 MG/DL Thyroid Stimulating Hormone 3rd Gen 1.550 uIU/ML Levetiracetam (Keppra) Level 5.0 mcg/mL Urine Collection Type CATH Urine Transitional Epithelial Cells 0-5 /hpf Urine Hyaline Casts 3-5 /lpf Urine Fine Granular Casts 3-5 /lpf Urine Coarse Granular Casts 25-49 /lpf Urine Yeast (Budding) FEW Lactic Acid Level 0.9 mmol/L Total Creatine Kinase 29 U/L Troponin I LESS THAN 0.02 NG/ML Random Cortisol 9.2 MCG/DL Test 01/14/17 06:45 01/14/17 16:10 01/17/17 06:00 01/17/17 14:15 B-Hydroxybutyrate 3.61 MMOL/L Nasal Screen MRSA (PCR) NEGATIVE Staphylococcus aureus (PCR)(LAB) NEGATIVE Blood Urea Nitrogen 27 MG/DL Creatinine 2.40 MG/DL Random Glucose 187 MG/DL Albumin 1.6 GM/DL Calcium Level 8.2 MG/DL Phosphorus Level 2.8 MG/DL Magnesium Level 2.0 MG/DL Sodium Level 141 MEQ/L Potassium Level 3.8 MEQ/L Chloride Level 106 MEQ/L Carbon Dioxide Level 25.5 MEQ/L Urine Color YELLOW Urine Turbidity CLOUDY Urine pH 6.0 Urine Specific [place] 1.020 Urine Protein 300 OR GREATER mg/dL Urine Glucose (UA) NEG mg/dL Urine Ketones 15 mg/dL Urine Occult Blood MOD Urine Nitrite NEG Urine Bilirubin NEG Urine Leukocyte Esterase TRACE Urine RBC 4-9 /hpf Urine WBC 100-200 /hpf Urine WBC Clumps MOD Urine Squamous Epithelial Cells 0-5 /hpf Urine Amorphous Sediment MOD Urine Bacteria FEW /hpf Microscopic Urinalysis Comment CULTURE INDICATED Test 01/18/17 05:10 01/19/17 10:05 01/27/17 06:00 01/29/17 22:12 Phenytoin (Dilantin) Level 7.5 MCG/ML Prothrombin Time 10.6 SEC Prothromb Time International Ratio 1.0 RATIO Rheumatoid Factor Screen NEGATIVE Rheumatoid Factor Titer IU/ML Anti-Nuclear Antibody Screen NEG Anti-Proteinase 3 (c-ANCA) LESS THAN 1.0 AI Anti-Myeloperoxidase Ab (p-ANCA) LESS THAN 1.0 AI Complement C3 110 MG/DL Complement C4 50 MG/DL Hepatitis B Surface Antigen NEGATIVE Hepatitis B Surface Antibody, Quant GREATER THAN 150 mIU/mL Hepatitis C Antibody NEGATIVE Blood Urea Nitrogen 43 MG/DL Creatinine 2.74 MG/DL Random Glucose 213 MG/DL Albumin 2.0 GM/DL Calcium Level 7.8 MG/DL Phosphorus Level 2.2 MG/DL Sodium Level 143 MEQ/L Potassium Level 4.2 MEQ/L Chloride Level 106 MEQ/L Carbon Dioxide Level 30.4 MEQ/L Stool C. difficile Toxin (PCR) POSITIVE Stl C. difficile Toxin Epiderm 027 PRESUMPTIVE NEGATIVE Test 02/04/17 05:38 02/04/17 07:10 02/04/17 08:01 02/05/17 07:00 Blood Gas Liter Flow 12 L/M Blood Gas Puncture Site LT RADIAL Blood Gas Patient Temperature 98.6 Blood Gas HCO3 25 mmol/L Blood Gas Base Excess 0.7 mmol/L Blood Gas Oxygen Saturation 94 % Arterial Blood pH 7.39 Arterial Blood Partial Pressure CO2 42 mmHg Arterial Blood Partial Pressure O2 86 mmHg Arterial Blood Oxygen Content 15.1 Vol % Arterial Blood Carboxyhemoglobin 1.4 % Arterial Blood Methemoglobin 1.0 % Blood Gas Hemoglobin 11.3 G/DL Oxygen Delivery Device BIPAP Blood Gas Ventilator Setting IPAP12/PEEP6/PS6 Blood Gas Inspired Oxygen 70 % B-Type Natriuretic Peptide 296 PG/ML White Blood Count 15.4 TH/MM3 Red Blood Count 2.94 MIL/MM3 Hemoglobin 8.8 GM/DL Hematocrit 27.0 % Mean Corpuscular Volume 91.9 FL Mean Corpuscular Hemoglobin 29.9 PG Mean Corpuscular Hemoglobin Concent 32.6 % Red Cell Distribution Width 16.9 % Platelet Count 88 TH/MM3 Mean Platelet Volume 10.8 FL Neutrophils (%) (Auto) 88.0 % Lymphocytes (%) (Auto) 7.9 % Monocytes (%) (Auto) 2.7 % Eosinophils (%) (Auto) 1.1 % Basophils (%) (Auto) 0.3 % Neutrophils # (Auto) 13.6 TH/MM3 Lymphocytes # (Auto) 1.2 TH/MM3 Monocytes # (Auto) 0.4 TH/MM3 Eosinophils # (Auto) 0.2 TH/MM3 Basophils # (Auto) 0.0 TH/MM3 CBC Comment AUTO DIFF Differential Total Cells Counted 100 Neutrophils % (Manual) 77 % Band Neutrophils % 14 % Lymphocytes % 4 % Monocytes % 4 % Eosinophils % 1 % Neutrophils # (Manual) 14.0 TH/MM3 Differential Comment FINAL DIFF MANUAL Platelet Estimate LOW Platelet Morphology Comment NORMAL Blood Urea Nitrogen 37 MG/DL Creatinine 1.70 MG/DL Random Glucose 86 MG/DL Total Protein 4.9 GM/DL Albumin 1.6 GM/DL Calcium Level 7.3 MG/DL Alkaline Phosphatase 76 U/L Aspartate Amino Transf (AST/SGOT) 11 U/L Alanine Aminotransferase (ALT/SGPT) 19 U/L Total Bilirubin 0.3 MG/DL Sodium Level 147 MEQ/L Potassium Level 3.6 MEQ/L Chloride Level 112 MEQ/L Carbon Dioxide Level 27.0 MEQ/L Anion Gap 8 MEQ/L Estimat Glomerular Filtration Rate 39 ML/MIN Protein Corrected Calcium 8.5 MG/DL Objective Remarks GENERAL: NAD, A&Ox3 HEAD: Normocephalic. NECK: Supple, trachea midline. No lymphadenopathy. EYES: No scleral icterus. No injection or drainage. CARDIOVASCULAR: Regular rate and rhythm without murmurs, gallops, or rubs. RESPIRATORY: Breath sounds equal bilaterally. No accessory muscle use. GASTROINTESTINAL: Abdomen soft, non-tender, nondistended. MUSCULOSKELETAL: No cyanosis, or edema. SKIN: Warm and dry. NEURO: No focal neurological deficitis. Medications and IVs Current Medications Medications (Trade) Dose Ordered Sig/Marin Route Start Time Stop Time Status Last Admin (Rivka-Colace) 1 tab BID PO 12/03/16 21:00 02/03/17 21:23 (Milk Of Magnesia Liq) 30 ml Q12H PRN PO 12/03/16 16:00 (Dulcolax Supp) 10 mg DAILY PRN RECTAL 12/03/16 16:00 (Catapres) 0.1 mg Q6H PRN PO 12/11/16 13:30 12/27/16 04:20 (Lipitor) 80 mg DAILY PO 12/21/16 09:00 02/06/17 09:51 (Tums Chew) 1,000 mg Q12HR CHEW 12/22/16 21:00 02/06/17 09:51 (Drisdol) 50,000 units Q7D PO 12/23/16 09:00 02/03/17 08:57 (Tylenol) 650 mg Q6H PRN PO 12/24/16 14:15 (D50w (Vial) Inj) 50 ml UNSCH PRN IV 12/26/16 04:30 (Glucagon Inj) 1 mg UNSCH PRN OTHER 12/26/16 04:30 01/19/17 06:11 (Norvasc) 10 mg DAILY PO 12/29/16 09:00 02/06/17 09:51 (Zofran Liq) 4 mg Q6H PRN PO 12/28/16 15:45 01/01/17 02:37 (Protonix) 40 mg DAILY PO 12/29/16 09:00 Future hold 02/06/17 09:51 (Pill Splitter) 1 ea UNSCH PRN OTHER 12/28/16 16:15 (Theragran M Tab) 1 tab DAILY PO 01/01/17 10:15 02/06/17 09:51 (Megace Liq) 400 mg BID PO 01/07/17 21:00 02/06/17 09:51 (Remeron Soltab Odt) 15 mg HS PO 01/09/17 21:00 02/05/17 21:23 (Ativan Inj) 1 mg Q4H PRN IV PUSH 01/10/17 21:00 Miscellaneous Information Patient in critical care unit? Ass... Q361D .XX 01/14/17 06:00 01/14/17 06:00 (Lovenox Inj) 30 mg DAILY SQ 01/14/17 09:00 Future Hold 01/29/17 09:14 (Trileptal) 300 mg BID PO 01/15/17 21:00 02/06/17 09:51 (Mucinex Er) 600 mg BID PO 01/17/17 13:00 02/06/17 09:51 (Plaquenil) 200 mg DAILY PO 01/18/17 12:00 02/06/17 09:51 (NS Flush) DAILY IVF 01/20/17 09:00 02/06/17 09:51 (NS Flush) UNSCH PRN IVF 01/19/17 11:15 ([place] 5-325 Mg) 1 tab Q6H PRN PO 01/19/17 12:15 01/19/17 20:26 (Duoneb Neb) 1 ampule Q2HR NEB PRN NEB 01/21/17 13:45 02/04/17 05:28 (Apresoline Inj) 10 mg Q6H PRN IV PUSH 01/21/17 17:30 01/31/17 16:26 (Apresoline) 50 mg Q8HR PO 01/21/17 17:30 02/06/17 05:55 (NS Flush) UNSCH PRN IVF 01/21/17 18:00 02/02/17 09:47 (Heparin Inj) UNSCH PRN IV FLUSH 01/21/17 18:00 Miscellaneous Information Patient in critical care unit? Ass... Q361D .XX 01/22/17 14:45 01/22/17 14:45 (Bactroban Nasal 2% Oint) 1 applic BID NASAL 01/22/17 21:00 02/06/17 09:51 Sodium Chloride 1,000 ml @ 0 mls/hr TITRATE PRN IV 01/22/17 15:45 01/22/17 13:30 (Heparin Inj) 8,000 units UNSCH PRN IV FLUSH 01/22/17 15:45 Sodium Chloride 1,000 ml @ 200 mls/hr Q5H PRN IV 01/22/17 15:45 Sodium Chloride 200 ml @ 0 mls/hr UNSCH PRN IV 01/22/17 15:45 (Mannitol Inj) 12.5 gm UNSCH PRN IV 01/22/17 15:45 (Albumin 25% Inj) 25 gm UNSCH PRN IV 01/22/17 15:45 (NS Flush) 5 ml UNSCH PRN IV FLUSH 01/22/17 15:45 (Heparin Inj) Dwell Heparin to f... UNSCH PRN OTHER 01/22/17 15:45 01/22/17 15:30 (Gentamicin (Dialysis) Inj) 10 mg UNSCH PRN OTHER 01/22/17 15:45 01/22/17 15:30 (Gelfoam 12 Mm/7 Mm Top) 1 foam UNSCH PRN TOPICAL 01/22/17 15:45 (Zofran Inj) 4 mg UNSCH PRN IV 01/22/17 15:45 (Benadryl) 25 mg UNSCH PRN PO 01/22/17 15:45 (Nitrostat Sl) 0.4 mg UNSCH PRN SL 01/22/17 15:45 (Catapres) 0.1 mg UNSCH PRN PO 01/22/17 15:45 (NovoLOG SUPPLEMENTAL SCALE) 1 HS SQ 01/24/17 21:00 02/05/17 21:32 (NovoLOG SUPPLEMENTAL SCALE) 1 TIDAC SQ 01/24/17 12:00 02/04/17 10:14 (K-Phos Neutral) 250 mg BID PO 01/24/17 12:00 02/06/17 09:51 (Lantus Inj) 8 units BID SQ 01/25/17 21:00 02/06/17 09:57 (Heparin Central Flush) 200 units DAILY PRN IV FLUSH 01/29/17 13:00 01/29/17 14:21 (Flonase Wally Spr) 1 spray BID NASAL 01/30/17 21:00 02/06/17 09:53 (Flagyl) 500 mg Q8HR PO 01/31/17 14:00 02/06/17 05:55 (Lopressor) 50 mg Q12HR PO 02/02/17 09:00 02/06/17 09:51 (Levaquin) 500 mg DAILY@1100 PO 02/04/17 11:00 02/05/17 11:49 A/P Assessment and Plan Acute blood loss anemia Transfuse 2 units packed red blood cells on 01/29/17 today Hemoglobin 8.8 Acute renal failure Chronic kidney disease stage III Probable related to Lupus exacerbation, continue steroids, stable renal function follow in am if stable for discharge. Diabetes mellitus type 2 Better control continue sliding scale. Lupus Continue Plaquenil Continue steroids Seizure No recent activity Continue Trileptal Closed right tib-fib fracture Continue PT Patient had intramedullary yuri for treatment Continue vitamin D Anemia Stable Follow CBC for any changes Cardiopulmonary arrest Resolved Event occurred Status post CODE BLUE after receiving Versed and fentanyl for conscious sedation. History of CVA Chronic right hemiplegia Supportive care Follow clinically Continue PT and OT Hypertension controlled. C Diff positive on Metronidazole. Pneumonia last CXR demonstrated some infiltrates started on Levofloxacin. and following. in am tomorrow. DVT prophylaxis SCDs and Lovenox Discharge Planning Not stable for discharge at this point No payor source for rehabilitation Isacc Salinas MD Feb 06, 2017 12:20
[2017-02-06] MEDS: MIRTAZAPINE ODT 15 MG TAB PO SCH (21:43)
[2017-02-07] VITALS (10 sets, daily range): BP systolic 118–150; BP diastolic 67–82; PULSE 92–97; RESP 16–20; TEMP 98–99; O2SAT 94–98
[2017-02-07] MEDS ORDERED: BUMETANIDE INJ 1 MG/4 ML VIAL IV PUSH ONE (01:45)
--- NOTE | 2017-02-07 03:27 | RADRPT ---
EXAM DATE/TIME: 02/07/2017 02:03 [facility] COMPARISON: CHEST SINGLE AP, February 04, 2017, 5:48. INDICATIONS : Shortness of breath. MEDICAL HISTORY : Renal insufficiency, chronic. Diabetes mellitus type II. Seizures. SURGICAL HISTORY : Cholecystectomy. Hysterectomy. section. Right tib/fib. Left foot ENCOUNTER: Subsequent ACUITY: 1 month PAIN SCORE: 0/10 LOCATION: Bilateral chest FINDINGS: Portable AP view of the chest demonstrates a normal-sized cardiac silhouette. Lungs are underinflated with bilateral diffuse airspace consolidation, left greater than right. No pneumothorax is visualize d. No pleural effusion is appreciated. CONCLUSION: Stable chest x-ray with bilateral airspace consolidation, left greater than right. Jim Michaels MD on February 07, 2017 at 3:24 Board Certified Radiologist. This report was verified electronically.
[2017-02-07] MEDS ORDERED: VANCOMYCIN INJ 1,050 MG in SODIUM CHLOR 0.9% 250 ML INJ 250 ML IV ONE (04:00)
[2017-02-07] MEDS ORDERED: Vancomycin Consult Pharmacy 1 EA OTHER SCH (04:00)
--- NOTE | 2017-02-07 04:00 | HHI.PR ---
Addendum to Inpatient Note Addendum Reason: Additional Documentation Additional Information I was notified that the patient had another episode of acute oxygen desaturation at 07 12. Oxygen saturations dropped down to 80 despite increasing supplemental oxygen. BiPAP was started with immediate improvement to the mid 90s. Patient with acute congestion and crackles in lung orta, Bumex 1 mg IV push was ordered. Chest x-ray was ordered and reviewed and appeared stable from the x-ray done 02/04/2017. Vital signs were otherwise stable. The patient is afebrile. Throughout, the patient was belligerent with staff and refusing BiPAP and chest x-ray initially but was able to be coaxed into testing and interventions thanks to the staff nurses. The patient's oxygen saturation is currently 97% on Bi-PAP. The patient had a similar episode on 02/04/2017 of acute desaturation with improvement on BiPAP. Levaquin IV for pneumonia was initiated at that time. Will add Vancomycin IV to cover possible MRSA - further treatment decisions per attending physician; consider pulmonology consultation. Elena Henry Feb 07, 2017 04:00
[2017-02-07] MEDS ORDERED: VANCOMYCIN 1,000 MG/NS 250 ML IV ONE ×2 (04:15)
[2017-02-07] MEDS: metroNIDAZOLE 500 MG TAB PO SCH ×3 (06:09→21:56)
[2017-02-07] MEDS: hydrALAZINE HCL 50 MG TAB PO SCH ×4 (06:10→21:56)
[2017-02-07 06:15] LABS: AUTOMATED NEUTROPHIL # 10.2 TH/MM3 (1.8-7.7); BASOPHIL # 0.1 TH/MM3 (0-0.2); BASOPHIL % 0.5 % (0.0-2.0); EOSINOPHIL # 0.2 TH/MM3 (0-0.4); EOSINOPHIL % 1.7 % (0.0-4.0); HEMATOCRIT 25.6 % (35.0-46.0); LYMPH % 8.5 % (9.0-44.0); MEAN CELL VOLUME 91.7 FL (80.0-100.0); MEAN CORPUSCULAR HEMOGLOBIN 30.1 PG (27.0-34.0); MEAN CORPUSCULAR HGB CONC 32.9 % (32.0-36.0); MONO % 2.8 % (0.0-8.0); NEUT % 86.5 % (16.0-70.0); PLATELET COUNT 86 TH/MM3 (150-450); RED BLOOD COUNT 2.79 MIL/MM3 (4.00-5.30); RED CELL DISTRIBUTION WIDTH 16.8 % (11.6-17.2); WHITE BLOOD COUNT 11.8 TH/MM3 (4.0-11.0)
[2017-02-07 06:16] LABS: HEMO FLAGS DIFF FINAL
[2017-02-07 07:10] LABS: BICARBONATE 28.1 MEQ/L (21.0-32.0); MAGNESIUM 1.8 MG/DL (1.5-2.5); POTASSIUM 3.9 MEQ/L (3.5-5.1)
[2017-02-07] MEDS: INSULIN ASPART SUPPLEMENTAL SCALE SQ SCH ×4 (08:00→22:12)
[2017-02-07] MEDS: LACTOBACILLUS ACIDOPHILUS TAB PO SCH ×3 (09:00→18:00)
[2017-02-07] MEDS: DOCUSATE SODIUM 50 MG/SENNA 8.6 MG TAB PO SCH ×2 (09:00→21:00)
[2017-02-07] MEDS: MULTIVITAMINS/MINERALS THERAPEUTIC TAB PO SCH (09:00)
[2017-02-07] MEDS: PANTOPRAZOLE SOD 40 MG DELAYED RELEASE TAB PO SCH (09:00)
[2017-02-07] MEDS ORDERED: LACTOBACILLUS ACIDOPHILUS TAB PO SCH (09:00)
[2017-02-07] MEDS: MEGESTROL ACETATE SUSP 400 MG/10 ML CUP PO SCH ×2 (09:00→21:57)
[2017-02-07] MEDS: CALCIUM CARBONATE 500 MG CHEWABLE TAB CHEW SCH ×2 (09:00→21:56)
[2017-02-07] MEDS: INSULIN GLARGINE 1,000 UNITS/10 ML VIAL SQ SCH ×2 (09:00→22:01)
[2017-02-07] MEDS: ATORVASTATIN 40 MG TAB PO SCH (09:00)
[2017-02-07] MEDS: guaiFENesin E.R. 600 MG TAB PO SCH ×2 (09:00→21:56)
[2017-02-07] MEDS: SODIUM CHLORIDE 0.9% FLUSH 10 ML FLUSH IVF SCH (09:00)
[2017-02-07] MEDS: HYDROXYCHLOROQUINE SULFATE 200 MG TAB PO SCH (09:00)
[2017-02-07] MEDS: METOPROLOL TARTRATE 50 MG TAB PO SCH ×2 (09:00→21:56)
[2017-02-07] MEDS: MUPIROCIN 2% OINT 1 APPLIC/GM SYR NASAL SCH ×2 (09:00→21:00)
[2017-02-07] MEDS: OXcarbazepine 300 MG TAB PO SCH ×2 (09:00→21:56)
[2017-02-07] MEDS: POTASSIUM PHOSPHATE/SODIUM PHOSPHATE 250 MG TAB PO SCH ×2 (09:00→21:56)
--- NOTE | 2017-02-07 11:19 | HHI.PR ---
Subjective Remarks Recent onset of Acute dyspnea and respiratory failure, status post Pulmonary Edema. stable in her bedroom no new Shortness of breath. No nausea, vomit or diarrhea discussed with Nurse. and patient in the room 02/07: had another episode of Oxygen desaturation was placed on BiPAP and consulted mattress specialist continue Bronchodilator, mucolytic, and incentive spirometry. seen in her bedroom in the presence of nurse Miss Hawkins, the patient states she is been here for four months and wants to go home, recommended to wait for mattress specialist and follow recommendations. asked for CT Chest no contrast. Objective Vital Signs Date Time Temp Pulse Resp B/P (MAP) Pulse Ox O2 Delivery O2 Flow Rate FiO2 02/07/17 10:13 94 Nasal Cannula 5.00 02/07/17 08:00 98.0 92 16 150/79 (102) 98 02/07/17 05:41 96 50 02/07/17 04:00 98.8 93 20 121/73 (89) 98 02/07/17 04:00 98 Bi-Pap 50 02/07/17 01:35 93 Bi-Pap 50 02/07/17 01:15 96 50 02/07/17 01:10 82 Nasal Cannula 6.00 02/07/17 00:00 Nasal Cannula 6.00 02/07/17 00:00 99.0 93 20 135/67 (89) 98 02/06/17 20:00 96 02/06/17 20:00 Nasal Cannula 6.00 02/06/17 20:00 98.6 97 18 118/62 (80) 90 02/06/17 16:00 98.3 95 20 136/65 (88) 92 02/06/17 12:00 98.3 106 20 150/68 (95) 90 I/O 02/06/17 02/06/17 02/06/17 02/07/17 02/07/17 02/07/17 07:00 15:00 23:00 07:00 15:00 23:00 Intake Total 360 ml 490 ml Output Total 300 ml 75 ml 625 ml Balance -300 ml 285 ml -135 ml Intake Oral 360 ml 240 ml IV Total 250 ml Output Urine Total 300 ml 75 ml 625 ml # Voids 1 # Bowel Movements 1 0 1 Result Diagram: 02/07/17 0454 02/07/17 0452 Imaging Last Impressions Chest X-Ray 02/07/17 0000 Signed Impressions: Service Date/Time: Tuesday, February 07, 2017 02:03 - CONCLUSION: Stable chest x-ray with bilateral airspace consolidation, left greater than right. Jim Michaels MD Catheter Placement X-Ray 01/21/17 0000 Signed Impressions: Service Date/Time: Saturday, January 21, 2017 16:07 - CONCLUSION: Uncomplicated line placement as above. Jim Aly MD Central Venous Line 01/19/17 0000 Signed Impressions: Service Date/Time: Thursday, January 19, 2017 10:46 - CONCLUSION: Uncomplicated line placement as above. Jim Aly MD Brain MRI 01/11/17 0000 Signed Impressions: Service Date/Time: Wednesday, January 11, 2017 15:04 - CONCLUSION: 1. Stable focus of abnormal signal involving the left centrum semiovale likely related to prior lacunar infarct. No acute intracranial anatomy. Rafqi Nielson MD Head CT 01/10/17 0917 Signed Impressions: Service Date/Time: Tuesday, January 10, 2017 09:49 - CONCLUSION: 1. Interval development of left sided mastoiditis since 11/22/2016. Clinical correlation is recommended. 2. Otherwise, no acute intracranial abnormality. Eriberto Madison MD Abdomen/Pelvis CT 12/25/16 1100 Signed Impressions: Service Date/Time: Sunday, December 25, 2016 12:00 - CONCLUSION: Interval development of anasarca, small bilateral effusions and small to moderate ascites. No significant ileus, hydronephrosis, mass or lymphadenopathy. Status post cholecystectomy. Bobby Martins MD Abdomen X-Ray 12/25/16 0857 Signed Impressions: Service Date/Time: Sunday, December 25, 2016 09:27 - CONCLUSION: No acute disease. Bobby Martins MD Upper Extremity Ultrasound 12/24/16 0000 Signed Impressions: Service Date/Time: Saturday, December 24, 2016 11:58 - CONCLUSION: Normal examination. Tr Luna MD Renal Ultrasound 12/24/16 0000 Signed Impressions: Service Date/Time: Saturday, December 24, 2016 11:53 - CONCLUSION: 1. Increased echogenicity of the renal cortex which can be seen with underlying medical renal disease. 2. No findings to indicate renal obstruction. 3. Small bilateral effusions and a trace amount of ascites within the abdomen. Umesh Farah MD Tibia/Fibula X-Ray 12/03/16 0000 Signed Impressions: Service Date/Time: Saturday, December 03, 2016 15:09 - CONCLUSION: Excellent alignment of the patient's tibial fracture post rodding. Patient has a minimally displaced fibular fracture as well. Umesh Farah MD Ankle X-Ray 12/02/16 0000 Signed Impressions: Service Date/Time: November 18:16 - CONCLUSION: 1. The ankle mortise is intact. 2. Distal tibial and fibular fractures again noted. Please see right leg report for further details. Javier Marino MD Other Results Laboratory Tests Test 12/02/16 18:55 12/04/16 12:35 12/22/16 05:50 12/24/16 15:50 Activated Partial Thromboplast Time 24.2 SEC Urine Urobilinogen LESS THAN 2.0 MG/DL Urine Mucus FEW /lpf 25-Hydroxy Vitamin D Total 9.4 ng/ML Urine Collection Time 15:50 Test 12/25/16 08:11 12/26/16 06:34 12/29/16 05:25 12/31/16 08:06 Lipase 276 U/L Urine Random Sodium 19 MEQ/L Reticulocyte Count 1.2 % Absolute Reticulocyte Count 32.0 MIL/L Iron Level 55 MCG/DL Total Iron Binding Capacity 73 MCG/DL Percent Iron Saturation 75.5 % Ferritin 758 NG/ML Folate 4.6 NG/ML Calcitonin Level LESS THAN 2.0 pg/mL Parathyroid Hormone (Intact) 33.6 PG/ML Prealbumin 15 MG/DL Test 01/09/17 16:15 01/10/17 10:45 01/10/17 12:15 01/11/17 08:10 Free Phenytoin Level 4.4 mg/L Vitamin B12 Level 713 PG/ML Ammonia LESS THAN 10 MCMOL/L Rapid Plasma Reagin NON-REACTIVE Test 01/12/17 19:55 01/13/17 15:40 01/13/17 16:00 01/14/17 04:30 Direct Bilirubin LESS THAN 0.1 MG/DL Indirect Bilirubin 0.1 MG/DL Thyroid Stimulating Hormone 3rd Gen 1.550 uIU/ML Levetiracetam (Keppra) Level 5.0 mcg/mL Urine Collection Type CATH Urine Transitional Epithelial Cells 0-5 /hpf Urine Hyaline Casts 3-5 /lpf Urine Fine Granular Casts 3-5 /lpf Urine Coarse Granular Casts 25-49 /lpf Urine Yeast (Budding) FEW Lactic Acid Level 0.9 mmol/L Total Creatine Kinase 29 U/L Troponin I LESS THAN 0.02 NG/ML Random Cortisol 9.2 MCG/DL Test 01/14/17 06:45 01/14/17 16:10 01/17/17 14:15 01/18/17 05:10 B-Hydroxybutyrate 3.61 MMOL/L Nasal Screen MRSA (PCR) NEGATIVE Staphylococcus aureus (PCR)(LAB) NEGATIVE Urine Color YELLOW Urine Turbidity CLOUDY Urine pH 6.0 Urine Specific Velarde 1.020 Urine Protein 300 OR GREATER mg/dL Urine Glucose (UA) NEG mg/dL Urine Ketones 15 mg/dL Urine Occult Blood MOD Urine Nitrite NEG Urine Bilirubin NEG Urine Leukocyte Esterase TRACE Urine RBC 4-9 /hpf Urine WBC 100-200 /hpf Urine WBC Clumps MOD Urine Squamous Epithelial Cells 0-5 /hpf Urine Amorphous Sediment MOD Urine Bacteria FEW /hpf Microscopic Urinalysis Comment CULTURE INDICATED Phenytoin (Dilantin) Level 7.5 MCG/ML Test 01/19/17 10:05 01/27/17 06:00 01/29/17 22:12 02/04/17 05:38 Prothrombin Time 10.6 SEC Prothromb Time International Ratio 1.0 RATIO Rheumatoid Factor Screen NEGATIVE Rheumatoid Factor Titer IU/ML Anti-Nuclear Antibody Screen NEG Anti-Proteinase 3 (c-ANCA) LESS THAN 1.0 AI Anti-Myeloperoxidase Ab (p-ANCA) LESS THAN 1.0 AI Complement C3 110 MG/DL Complement C4 50 MG/DL Hepatitis B Surface Antigen NEGATIVE Hepatitis B Surface Antibody, Quant GREATER THAN 150 mIU/mL Hepatitis C Antibody NEGATIVE Blood Urea Nitrogen 43 MG/DL Creatinine 2.74 MG/DL Random Glucose 213 MG/DL Albumin 2.0 GM/DL Calcium Level 7.8 MG/DL Phosphorus Level 2.2 MG/DL Sodium Level 143 MEQ/L Potassium Level 4.2 MEQ/L Chloride Level 106 MEQ/L Carbon Dioxide Level 30.4 MEQ/L Stool C. difficile Toxin (PCR) POSITIVE Stl C. difficile Toxin Epiderm 027 PRESUMPTIVE NEGATIVE Blood Gas Liter Flow 12 L/M Test 02/04/17 07:10 02/04/17 08:01 02/05/17 07:00 02/07/17 04:52 Blood Gas Puncture Site LT RADIAL Blood Gas Patient Temperature 98.6 Blood Gas HCO3 25 mmol/L Blood Gas Base Excess 0.7 mmol/L Blood Gas Oxygen Saturation 94 % Arterial Blood pH 7.39 Arterial Blood Partial Pressure CO2 42 mmHg Arterial Blood Partial Pressure O2 86 mmHg Arterial Blood Oxygen Content 15.1 Vol % Arterial Blood Carboxyhemoglobin 1.4 % Arterial Blood Methemoglobin 1.0 % Blood Gas Hemoglobin 11.3 G/DL Oxygen Delivery Device BIPAP Blood Gas Ventilator Setting IPAP12/PEEP6/PS6 Blood Gas Inspired Oxygen 70 % B-Type Natriuretic Peptide 296 PG/ML Differential Total Cells Counted 100 Neutrophils % (Manual) 77 % Band Neutrophils % 14 % Lymphocytes % 4 % Monocytes % 4 % Eosinophils % 1 % Neutrophils # (Manual) 14.0 TH/MM3 Platelet Estimate LOW Platelet Morphology Comment NORMAL Protein Corrected Calcium 8.5 MG/DL Blood Urea Nitrogen 37 MG/DL 37 MG/DL Creatinine 1.70 MG/DL 1.99 MG/DL Random Glucose 86 MG/DL 137 MG/DL Total Protein 4.9 GM/DL Albumin 1.6 GM/DL Calcium Level 7.3 MG/DL 8.1 MG/DL Alkaline Phosphatase 76 U/L Aspartate Amino Transf (AST/SGOT) 11 U/L Alanine Aminotransferase (ALT/SGPT) 19 U/L Total Bilirubin 0.3 MG/DL Sodium Level 147 MEQ/L 149 MEQ/L Potassium Level 3.6 MEQ/L 3.9 MEQ/L Chloride Level 112 MEQ/L 114 MEQ/L Carbon Dioxide Level 27.0 MEQ/L 28.1 MEQ/L Magnesium Level 1.8 MG/DL Anion Gap 7 MEQ/L Estimat Glomerular Filtration Rate 32 ML/MIN Test 02/07/17 04:54 White Blood Count 11.8 TH/MM3 Red Blood Count 2.79 MIL/MM3 Hemoglobin 8.4 GM/DL Hematocrit 25.6 % Mean Corpuscular Volume 91.7 FL Mean Corpuscular Hemoglobin 30.1 PG Mean Corpuscular Hemoglobin Concent 32.9 % Red Cell Distribution Width 16.8 % Platelet Count 86 TH/MM3 Mean Platelet Volume 11.2 FL Neutrophils (%) (Auto) 86.5 % Lymphocytes (%) (Auto) 8.5 % Monocytes (%) (Auto) 2.8 % Eosinophils (%) (Auto) 1.7 % Basophils (%) (Auto) 0.5 % Neutrophils # (Auto) 10.2 TH/MM3 Lymphocytes # (Auto) 1.0 TH/MM3 Monocytes # (Auto) 0.3 TH/MM3 Eosinophils # (Auto) 0.2 TH/MM3 Basophils # (Auto) 0.1 TH/MM3 CBC Comment DIFF FINAL Differential Comment Objective Remarks GENERAL: NAD, A&Ox3 HEAD: Normocephalic. NECK: Supple, trachea midline. No lymphadenopathy. EYES: No scleral icterus. No injection or drainage. CARDIOVASCULAR: Regular rate and rhythm without murmurs, gallops, or rubs. RESPIRATORY: Breath sounds equal bilaterally. No accessory muscle use. GASTROINTESTINAL: Abdomen soft, non-tender, nondistended. MUSCULOSKELETAL: No cyanosis, or edema. SKIN: Warm and dry. NEURO: No focal neurological deficits Medications and IVs Current Medications Medications (Trade) Dose Ordered Sig/Marin Route Start Time Stop Time Status Last Admin (Rivka-Colace) 1 tab BID PO 12/03/16 21:00 02/03/17 21:23 (Milk Of Magnesia Liq) 30 ml Q12H PRN PO 12/03/16 16:00 (Dulcolax Supp) 10 mg DAILY PRN RECTAL 12/03/16 16:00 (Catapres) 0.1 mg Q6H PRN PO 12/11/16 13:30 12/27/16 04:20 (Lipitor) 80 mg DAILY PO 12/21/16 09:00 02/06/17 09:51 (Tums Chew) 1,000 mg Q12HR CHEW 12/22/16 21:00 02/06/17 21:41 (Drisdol) 50,000 units Q7D PO 12/23/16 09:00 02/03/17 08:57 (Tylenol) 650 mg Q6H PRN PO 12/24/16 14:15 (D50w (Vial) Inj) 50 ml UNSCH PRN IV 12/26/16 04:30 (Glucagon Inj) 1 mg UNSCH PRN OTHER 12/26/16 04:30 01/19/17 06:11 (Norvasc) 10 mg DAILY PO 12/29/16 09:00 02/06/17 09:51 (Zofran Liq) 4 mg Q6H PRN PO 12/28/16 15:45 01/01/17 02:37 (Protonix) 40 mg DAILY PO 12/29/16 09:00 Future hold 02/06/17 09:51 (Pill Splitter) 1 ea UNSCH PRN OTHER 12/28/16 16:15 (Theragran M Tab) 1 tab DAILY PO 01/01/17 10:15 02/06/17 09:51 (Megace Liq) 400 mg BID PO 01/07/17 21:00 02/06/17 21:41 (Remeron Soltab Odt) 15 mg HS PO 01/09/17 21:00 02/06/17 21:43 (Ativan Inj) 1 mg Q4H PRN IV PUSH 01/10/17 21:00 Miscellaneous Information Patient in critical care unit? Ass... Q361D .XX 01/14/17 06:00 01/14/17 06:00 (Lovenox Inj) 30 mg DAILY SQ 01/14/17 09:00 Future Hold 01/29/17 09:14 (Trileptal) 300 mg BID PO 01/15/17 21:00 02/06/17 21:41 (Mucinex Er) 600 mg BID PO 01/17/17 13:00 02/06/17 21:41 (Plaquenil) 200 mg DAILY PO 01/18/17 12:00 02/06/17 09:51 (NS Flush) DAILY IVF 01/20/17 09:00 02/06/17 09:51 (NS Flush) UNSCH PRN IVF 01/19/17 11:15 ([place] 5-325 Mg) 1 tab Q6H PRN PO 01/19/17 12:15 01/19/17 20:26 (Duoneb Neb) 1 ampule Q2HR NEB PRN NEB 01/21/17 13:45 02/04/17 05:28 (Apresoline Inj) 10 mg Q6H PRN IV PUSH 01/21/17 17:30 01/31/17 16:26 (Apresoline) 50 mg Q8HR PO 01/21/17 17:30 02/07/17 06:10 (NS Flush) UNSCH PRN IVF 01/21/17 18:00 02/02/17 09:47 (Heparin Inj) UNSCH PRN IV FLUSH 01/21/17 18:00 Miscellaneous Information Patient in critical care unit? Ass... Q361D .XX 01/22/17 14:45 01/22/17 14:45 (Bactroban Nasal 2% Oint) 1 applic BID NASAL 01/22/17 21:00 02/06/17 09:51 Sodium Chloride 1,000 ml @ 0 mls/hr TITRATE PRN IV 01/22/17 15:45 01/22/17 13:30 (Heparin Inj) 8,000 units UNSCH PRN IV FLUSH 01/22/17 15:45 Sodium Chloride 1,000 ml @ 200 mls/hr Q5H PRN IV 01/22/17 15:45 Sodium Chloride 200 ml @ 0 mls/hr UNSCH PRN IV 01/22/17 15:45 (Mannitol Inj) 12.5 gm UNSCH PRN IV 01/22/17 15:45 (Albumin 25% Inj) 25 gm UNSCH PRN IV 01/22/17 15:45 (NS Flush) 5 ml UNSCH PRN IV FLUSH 01/22/17 15:45 (Heparin Inj) Dwell Heparin to f... UNSCH PRN OTHER 01/22/17 15:45 01/22/17 15:30 (Gentamicin (Dialysis) Inj) 10 mg UNSCH PRN OTHER 01/22/17 15:45 01/22/17 15:30 (Gelfoam 12 Mm/7 Mm Top) 1 foam UNSCH PRN TOPICAL 01/22/17 15:45 (Zofran Inj) 4 mg UNSCH PRN IV 01/22/17 15:45 (Benadryl) 25 mg UNSCH PRN PO 01/22/17 15:45 (Nitrostat Sl) 0.4 mg UNSCH PRN SL 01/22/17 15:45 (Catapres) 0.1 mg UNSCH PRN PO 01/22/17 15:45 (NovoLOG SUPPLEMENTAL SCALE) 1 HS SQ 01/24/17 21:00 02/05/17 21:32 (NovoLOG SUPPLEMENTAL SCALE) 1 TIDAC SQ 01/24/17 12:00 02/06/17 12:25 (K-Phos Neutral) 250 mg BID PO 01/24/17 12:00 02/06/17 21:41 (Lantus Inj) 8 units BID SQ 01/25/17 21:00 02/06/17 21:46 (Heparin Central Flush) 200 units DAILY PRN IV FLUSH 01/29/17 13:00 01/29/17 14:21 (Flonase Wally Spr) 1 spray BID NASAL 01/30/17 21:00 02/06/17 21:00 (Flagyl) 500 mg Q8HR PO 01/31/17 14:00 02/07/17 06:09 (Lopressor) 50 mg Q12HR PO 02/02/17 09:00 02/06/17 21:41 (Levaquin) 500 mg DAILY@1100 PO 02/04/17 11:00 02/06/17 12:17 (Lactinex) 1 tab TID PO 02/07/17 09:00 Pharmacy Profile Note 0 ml @ 0 mls/hr UNSCH OTHER 02/07/17 04:00 (Lactinex) 1 tab TID PO 02/07/17 09:00 A/P Assessment and Plan Acute blood loss anemia Transfuse 2 units packed red blood cells on 01/29/17 today Hemoglobin 8.4 Acute renal failure Chronic kidney disease stage III Stable Diabetes mellitus type 2 Better control continue sliding scale. Lupus Continue Plaquenil Continue steroids Seizure No recent activity Continue Trileptal Closed right tib-fib fracture Continue PT Patient had intramedullary yuri for treatment Continue vitamin D Anemia Stable Follow CBC for any changes Cardiopulmonary arrest Resolved Event occurred Status post CODE BLUE after receiving Versed and fentanyl for conscious sedation. History of CVA Chronic right hemiplegia Supportive care Follow clinically Continue PT and OT Hypertension controlled. C Diff positive on Metronidazole. Pneumonia last CXR demonstrated some infiltrates started on Levofloxacin. had new episode of oxygen desaturation asked for mattress specialist consult and Chest CT scan. DVT prophylaxis SCDs and Lovenox Discharge Planning Not stable for discharge at this point No payor source for rehabilitation Isacc Salinas MD Feb 07, 2017 11:19
--- NOTE | 2017-02-07 11:51 | HHI.HCPN ---
Reason for visit a. To assist with evaluation and management of symptoms including:dyspnea b. To assist medical decision maker(s) with: better understanding of current medical conditions; weighing benefits/burdens of medical treatment options; making medical treatment decisions. . Subjective/Interval History Pt had dyspnea overnight. placed on bipap, currently say she is not dyspneic. She state she wants to get out of the hospital. I came in here for my sugars not for these things. I offered hospice services, but she is reluctant. She did not want it and state, I can call my father to get out of here and sign out AMA. Pt very upset. She maintains a full code, and would not commit to DNR. Did not want to discus any further. Advance Directives Health Care Surrogate: Copy in medical record (completed 12/27/2016) Advance Directive Specifics Health Care Surrogate(s): The patient's designated health care surrogate is her fatherSulyac Jewell The first alternate is the patient's Penny Jewell A second alternate is the patient's ex -- Mary Bain. . Documented care wishes: No written documentation of health care preferences/wishes/goals . Objective Vital Signs Date Time Temp Pulse Resp B/P (MAP) Pulse Ox O2 Delivery O2 Flow Rate FiO2 02/07/17 10:13 94 Nasal Cannula 5.00 02/07/17 08:00 98.0 92 16 150/79 (102) 98 02/07/17 05:41 96 50 02/07/17 04:00 98.8 93 20 121/73 (89) 98 02/07/17 04:00 98 Bi-Pap 50 02/07/17 01:35 93 Bi-Pap 50 02/07/17 01:15 96 50 02/07/17 01:10 82 Nasal Cannula 6.00 02/07/17 00:00 Nasal Cannula 6.00 02/07/17 00:00 99.0 93 20 135/67 (89) 98 02/06/17 20:00 96 02/06/17 20:00 Nasal Cannula 6.00 02/06/17 20:00 98.6 97 18 118/62 (80) 90 02/06/17 16:00 98.3 95 20 136/65 (88) 92 02/06/17 12:00 98.3 106 20 150/68 (95) 90 Intake & Output 8/28/17 8/28/17 07:00 19:00 Intake Total 490 ml Output Total 625 ml Balance -135 ml Intake Oral 240 ml IV Total 250 ml Output Urine Total 625 ml # Bowel Movements 1 Physical Exam CONSTITUTIONAL/GENERAL: This is an adequately nourished female.pleasant, appropriate SKIN: No jaundice, rashes, or lesions. No wounds seen anteriorly. Skin temperature appropriate. Not diaphoretic. CARDIOVASCULAR: Regular rate and rhythm without murmurs.No JVD. periph pulses palpable, no peripheral edema RESPIRATORY/CHEST: Symmetric, unlabored respirations. On room air. Clear to auscultation. Breath sounds equal bilaterally. GASTROINTESTINAL: Abdomen soft, non-tender, nondistended. Bowel sounds present. MUSCULOSKELETAL: Extremities without clubbing, cyanosis, or edema. No mottling. NEUROLOGICAL: alert, oriented, pleasant. appears to have reasonable insight. Moves all 4 extremities. PSYCHIATRIC: no obvious depression or anxiety . Diagnostic Tests Laboratory Laboratory Tests Test 02/05/17 07:00 02/07/17 04:52 02/07/17 04:54 White Blood Count 15.4 TH/MM3 (4.0-11.0) 11.8 TH/MM3 (4.0-11.0) Red Blood Count 2.94 MIL/MM3 (4.00-5.30) 2.79 MIL/MM3 (4.00-5.30) Hemoglobin 8.8 GM/DL (11.6-15.3) 8.4 GM/DL (11.6-15.3) Hematocrit 27.0 % (35.0-46.0) 25.6 % (35.0-46.0) Mean Corpuscular Volume 91.9 FL (80.0-100.0) 91.7 FL (80.0-100.0) Mean Corpuscular Hemoglobin 29.9 PG (27.0-34.0) 30.1 PG (27.0-34.0) Mean Corpuscular Hemoglobin Concent 32.6 % (32.0-36.0) 32.9 % (32.0-36.0) Red Cell Distribution Width 16.9 % (11.6-17.2) 16.8 % (11.6-17.2) Platelet Count 88 TH/MM3 (150-450) 86 TH/MM3 (150-450) Mean Platelet Volume 10.8 FL (7.0-11.0) 11.2 FL (7.0-11.0) Neutrophils (%) (Auto) 88.0 % (16.0-70.0) 86.5 % (16.0-70.0) Lymphocytes (%) (Auto) 7.9 % (9.0-44.0) 8.5 % (9.0-44.0) Monocytes (%) (Auto) 2.7 % (0.0-8.0) 2.8 % (0.0-8.0) Eosinophils (%) (Auto) 1.1 % (0.0-4.0) 1.7 % (0.0-4.0) Basophils (%) (Auto) 0.3 % (0.0-2.0) 0.5 % (0.0-2.0) Neutrophils # (Auto) 13.6 TH/MM3 (1.8-7.7) 10.2 TH/MM3 (1.8-7.7) Lymphocytes # (Auto) 1.2 TH/MM3 (1.0-4.8) 1.0 TH/MM3 (1.0-4.8) Monocytes # (Auto) 0.4 TH/MM3 (0-0.9) 0.3 TH/MM3 (0-0.9) Eosinophils # (Auto) 0.2 TH/MM3 (0-0.4) 0.2 TH/MM3 (0-0.4) Basophils # (Auto) 0.0 TH/MM3 (0-0.2) 0.1 TH/MM3 (0-0.2) CBC Comment AUTO DIFF DIFF FINAL Differential Total Cells Counted 100 Neutrophils % (Manual) 77 % (16-70) Band Neutrophils % 14 % (0-6) Lymphocytes % 4 % (9-44) Monocytes % 4 % (0-8) Eosinophils % 1 % (0-4) Neutrophils # (Manual) 14.0 TH/MM3 (1.8-7.7) Differential Comment FINAL DIFF MANUAL Platelet Estimate LOW (NORMAL) Platelet Morphology Comment NORMAL (NORMAL) Blood Urea Nitrogen 37 MG/DL (7-18) 37 MG/DL (7-18) Creatinine 1.70 MG/DL (0.50-1.00) 1.99 MG/DL (0.50-1.00) Random Glucose 86 MG/DL (74-106) 137 MG/DL (74-106) Total Protein 4.9 GM/DL (6.4-8.2) Albumin 1.6 GM/DL (3.4-5.0) Calcium Level 7.3 MG/DL (8.5-10.1) 8.1 MG/DL (8.5-10.1) Alkaline Phosphatase 76 U/L (45-117) Aspartate Amino Transf (AST/SGOT) 11 U/L (15-37) Alanine Aminotransferase (ALT/SGPT) 19 U/L (10-53) Total Bilirubin 0.3 MG/DL (0.2-1.0) Sodium Level 147 MEQ/L (136-145) 149 MEQ/L (136-145) Potassium Level 3.6 MEQ/L (3.5-5.1) 3.9 MEQ/L (3.5-5.1) Chloride Level 112 MEQ/L (98-107) 114 MEQ/L (98-107) Carbon Dioxide Level 27.0 MEQ/L (21.0-32.0) 28.1 MEQ/L (21.0-32.0) Anion Gap 8 MEQ/L (5-15) 7 MEQ/L (5-15) Estimat Glomerular Filtration Rate 39 ML/MIN (>89) 32 ML/MIN (>89) Protein Corrected Calcium 8.5 MG/DL (8.5-10.1) Magnesium Level 1.8 MG/DL (1.5-2.5) Result Diagram: 02/07/17 0454 02/07/17 0452 Procedures * Intramedullary yuri fixation right lower extremity fracture on 12/03/16 . Assessment and Plan Disease Oriented Problem List: (1) Closed fracture of right tibia and fibula Comment: Repaired on 12/03/16 with intramedullary yuri fixation (2) Anemia (3) Lupus (4) DM (diabetes mellitus), type 1 with hyperosmolarity (5) CKD (chronic kidney disease), stage III Comment: Renal function stable/improved during admission (6) Seizure disorder Comment: Has reported long-term seizure disorder. Now with new tremor. Unclear if this is pseudoseizure, part of catatonia, medication reaction, etc. (7) Acute encephalopathy Comment: Patient has been having similar "spells" per family for 5-6 years and the etiology is uncertain. Spells have been more frequent and lasting longer of late. . (8) Acidosis Comment: Uncertain etiology. Given blood sugars are reasonably well controlled , this may be from starvation. . Symptom Scale: (1) Nausea 0-10 Scale: 0 (had it earlier.) Comment: Appears resolved. . (2) Decrease in appetite 0-10 Scale: Unable to quantify Comment: Hardly eating/drinking anything as part of this "spell" of altered mental status. . Pertinent Non-Medical Issues Psychosocial: Normally lives with her son and cares for herself. Spiritual: Islam Legal: Father is her designated health care surrogate. Ethical issues impacting care: Patient is incapacitated. She will probably regain capacity. Father is her health care surrogate. . Important Contacts Kevin Corcoran (father and Primary HCS) [phone] ( home) [phone] (cell) Harriet Corcoran (mother and 1st Alternate HCS) [phone] (home ) Liliya bain(ex and 2nd alternate HCS) [phone] . Prognosis Patient is a 46-year-old female with a past medical history significant for diabetes (poorly controlled, prior multiple admission for DKA), hypertension, asthma, CKD stage III, strokes 2014 (with residual deficit right upper extremity ), seizure, and lupus. Pt came in with right ankle fracture which was repaired surgically. Had ICU stay due to respiratory distress thought to be narcotic related, and anemia (thought to be ckd or anemia of chronic disease). Per family, patient has had increasingly frequent spells of being nonverbal, not eating/drinking that normally last 2-3 days. Cause of these spells remains unclear -- phenytoin toxicity? catatonia? Stable, renal function improving. . . Code Status: Full Code Plan * Code Stats -- FULL CODE * Decision making: Has capacity to make medical decisions. Father is designated HCS if she becomes incapacitated. * Goals of medical treatment. She state she wants to get out of the hospital. "I came in here for my sugars not for these things. " I offered hospice services , but she is reluctant. She did not want it and state, I can call my father to get out of here and sign out AMA. Pt very upset. She maintains a full code, and would not commit to DNR. Did not want to discus any further. Father's goc has been aggressive. * SYMPTOMS == Pain: denies pain. prns available. No further recommendations at this time == dyspnea- decompensates easily- defer to pulmonologyis. == Nausea/vomiting: no n/v. fair appetite, prn zofran available, has not required recently. == malnutrition: chronic. poor pO intake, on megace. eating 75-100% recent meals. albumin 2.o ==Palliative Care will continue to follow to assist with symptom management and to clarify goals of medical treatment as the clincal course evolves. . Davey Wu MD Feb 07, 2017 11:51
[2017-02-07] MEDS: FLUTICASONE PROPIONATE 50 MCG/ACT 16 GM NASAL SPRAY NASAL SCH ×2 (12:59→21:58)
[2017-02-07] MEDS: LEVOFLOXACIN 500 MG TAB PO SCH (13:27)
--- NOTE | 2017-02-07 17:42 | RADRPT ---
EXAM DATE/TIME: 02/07/2017 17:08 [facility] COMPARISON: CHEST SINGLE AP, February 04, 2017, 5:48. INDICATIONS : Evaluate for pneumonia. RADIATION DOSE: 9.38 CTDIvol (mGy) MEDICAL HISTORY : Cardiovascular disease. Hypertension. Renal calculi. SURGICAL HISTORY : Cholecystectomy. Hysterectomy. ENCOUNTER: Initial ACUITY: 1 day PAIN SCALE: 0/10 LOCATION: Bilateral chest TECHNIQUE: Volumetric scanning of the chest was performed. Using automated exposure control and adjustment of t he mA and/or kV according to patient size, radiation dose was kept as low as reasonably achievable to obtain optimal diagnostic quality images. DICOM format image data is available electronically for r eview and comparison. Follow-up recommendations for detected pulmonary nodules are based at a minimum on nodule size and pa tient risk factors according to Fleischner Society Guidelines. FINDINGS: LUNGS: Extensive interstitial and alveolar consolidation is seen in both lungs PLEURAE: There is no pleural thickening or pleural effusion. MEDIASTINUM: The heart and great vessels demonstrate no acute abnormality. There is no mediastinal or hilar lymph adenopathy. AXILLAE: Within normal limits. No lymphadenopathy. MUSCULOSKELETAL: Within normal limits for patient age. MISCELLANEOUS: The visualized upper abdominal organs demonstrate no acute abnormality. CONCLUSION: Markedly abnormal CT scan of the chest with interstitial and alveolar opacity in both lungs consisten t with an inflammatory process. There is no significant pleural effusion. Hank Farah MD FACR on February 07, 2017 at 17:39 Board Certified Radiologist. This report was verified electronically.
[2017-02-07] MEDS: predniSONE 10 MG TAB PO SCH (21:56)
[2017-02-07] MEDS: MIRTAZAPINE ODT 15 MG TAB PO SCH (21:57)
[2017-02-08] VITALS (9 sets, daily range): BP systolic 114–144; BP diastolic 58–73; PULSE 90–107; RESP 16–22; TEMP 97.6–98.9; O2SAT 87–98
[2017-02-08] MEDS: metroNIDAZOLE 500 MG TAB PO SCH ×3 (05:20→20:22)
[2017-02-08] MEDS: hydrALAZINE HCL 50 MG TAB PO SCH ×3 (05:20→20:22)
--- NOTE | 2017-02-08 06:41 | MB ---
cc: ONIEL HUMPHREY DATE OF CONSULTATION 02/07/[address] Glaser REASON FOR CONSULTATION Shortness of breath. HISTORY OF PRESENT ILLNESS Ms. Carrasco is a 46-year-old -[place] female with longstanding history of lupus, hypertension and diabetes mellitus. The patient was admitted in this hospital and she had a tibia fracture. She had surgery done. She has multiple other reasons to be in the hospital. Recently she started becoming more short of breath. She had a CT scan of the chest done which shows that she has markedly abnormal CT scan of the chest with interstitial and alveolar opacity in both lungs consistent with inflammatory process. Initially she was on nonrebreather mask. She is weaned down to 5 liters nasal cannula. The patient feels that she is doing well and is anxious to go home. PAST MEDICAL HISTORY 1. Significant for history of hypertension. 2. Diabetes mellitus. 3. Lupus. 4. Renal insufficiency. 5. History of stroke with right hand weakness. 6. History of seizure disorder. 7. History of . MEDICATIONS She is currently taking - 1. Lactinex 1 tablet three times a day. 2. Levaquin 500 mg a day. 3. Metoprolol 50 mg q. 12 hours. 4. Flagyl 500 mg q. 8 hours. 5. Flonase nasal spray. 6. She is on insulin. 7. Hydralazine 50 mg q.8 hours. 8. Lortab for pain. 9. Trileptal 300 mg twice a day. 10. Mucinex ER 600 mg twice a day. 11. Lorazepam p.r.n. 12. Amlodipine 10 mg a day. 13. Multivitamin once a day. MEDICATION ALLERGIES SULFA. ADHESIVE TAPE. BANANA. INSULIN. NITROFURANTOIN. PENICILLIN. SOCIAL HISTORY She is . 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 No history of smoking or alcohol abuse. FAMILY HISTORY She has a 16-year-old son who lives with her. REVIEW OF SYSTEMS Normally she is up, around and active until this. She had a fracture of the leg. Has history of stroke. No DVT or pulmonary embolus. No malignancy. PHYSICAL EXAMINATION GENERAL: A moderately built, moderately nourished female, not in acute distress. VITAL SIGNS: Blood pressure 131/78, heart rate 96, respiration 18, temperature 98.4. HEENT EXAMINATION: Pupils are equal and reactive to light. Oral mucosa, nasal mucosa normal. NECK: No JVD. CHEST: She has fine rales. CV: S1 and S2 normal. ABDOMEN: Benign. EXTREMITIES: 1+ pedal edema. IMPRESSION 1. Bilateral lung infiltrate likely alveolitis or inflammatory process. She has no fever. 2. Hypertension. 3. Diabetes mellitus. 4. History of seizure disorder. 5. Lupus. 6. History of CVA with right hand weakness. PLAN 1. I discussed with the patient she will need steroids. She is reluctant to have it because she wants to go home as soon as possible. I have advised her to take at least p.o. steroids. I will start her on prednisone 10 mg twice a day to see the response. 2. I also advised her that it is likely to increase her blood sugar which needs to be monitored closely. 3. She is on antibiotics. 4. We will monitor her blood pressure and she will need home oxygen therapy. Further treatment will depend on the hospital course. Thank you Dr. Glaser for this consultation. Oniel Humphrey MD ADA/SSB /7:02 PM /6:21 AM
[2017-02-08] MEDS: RESP: ALBUTEROL 2.5 MG/IPRATROPIUM 0.5 MG NEB (PRN) NEB ×4 (07:36→19:09)
[2017-02-08] MEDS: INSULIN ASPART SUPPLEMENTAL SCALE SQ SCH ×4 (08:00→20:18)
[2017-02-08] MEDS: INSULIN GLARGINE 1,000 UNITS/10 ML VIAL SQ SCH ×2 (09:00→20:21)
[2017-02-08] MEDS: DOCUSATE SODIUM 50 MG/SENNA 8.6 MG TAB PO SCH ×2 (09:00→20:22)
[2017-02-08] MEDS: MEGESTROL ACETATE SUSP 400 MG/10 ML CUP PO SCH ×2 (09:40→20:22)
[2017-02-08] MEDS: LACTOBACILLUS ACIDOPHILUS TAB PO SCH ×3 (09:41→18:00)
[2017-02-08] MEDS: HYDROXYCHLOROQUINE SULFATE 200 MG TAB PO SCH (09:42)
[2017-02-08] MEDS: POTASSIUM PHOSPHATE/SODIUM PHOSPHATE 250 MG TAB PO SCH ×2 (09:42→20:22)
[2017-02-08] MEDS: OXcarbazepine 300 MG TAB PO SCH ×2 (09:42→20:22)
[2017-02-08] MEDS: ATORVASTATIN 40 MG TAB PO SCH (09:42)
[2017-02-08] MEDS: CALCIUM CARBONATE 500 MG CHEWABLE TAB CHEW SCH ×2 (09:42→20:22)
[2017-02-08] MEDS: MULTIVITAMINS/MINERALS THERAPEUTIC TAB PO SCH (09:42)
[2017-02-08] MEDS: MUPIROCIN 2% OINT 1 APPLIC/GM SYR NASAL SCH ×2 (09:43→20:22)
[2017-02-08] MEDS: PANTOPRAZOLE SOD 40 MG DELAYED RELEASE TAB PO SCH (09:43)
[2017-02-08] MEDS: METOPROLOL TARTRATE 50 MG TAB PO SCH ×2 (09:43→20:22)
[2017-02-08] MEDS: guaiFENesin E.R. 600 MG TAB PO SCH ×2 (09:43→20:22)
[2017-02-08] MEDS: predniSONE 10 MG TAB PO SCH ×2 (09:43→20:22)
[2017-02-08] MEDS: SODIUM CHLORIDE 0.9% FLUSH 10 ML FLUSH IVF SCH (09:44)
[2017-02-08] MEDS: FLUTICASONE PROPIONATE 50 MCG/ACT 16 GM NASAL SPRAY NASAL SCH ×2 (09:47→20:22)
[2017-02-08] MEDS: LEVOFLOXACIN 500 MG TAB PO SCH (11:17)
--- NOTE | 2017-02-08 12:55 | HHI.PR ---
Subjective Remarks Follow up on patient with respiratory failure, closed right tib/fib fracture, CKD, lupus and DM. Patient seen and examined today. Patient denies any complaints. States she had a good night last night. Denies any shortness of breath, cough or sputum production. Denies any chest pain. No N/V or abdominal pain. Patient denies using oxygen at home. Currently on NC at 5L with O2 sats 92%. Objective Vitals Vital Signs Date Time Temp Pulse Resp B/P (MAP) Pulse Ox O2 Delivery O2 Flow Rate FiO2 02/08/17 08:00 98.9 107 20 114/58 (76) 92 02/08/17 08:00 94 Nasal Cannula 5.00 02/08/17 07:38 87 Nasal Cannula 5.00 02/08/17 06:21 97.7 90 18 127/73 (91) 98 02/08/17 04:00 Nasal Cannula 5.00 02/08/17 01:17 97.6 90 16 126/70 (88) 98 02/08/17 00:00 Nasal Cannula 5.00 02/07/17 21:45 98.7 92 16 134/67 (89) 97 02/07/17 20:08 97 02/07/17 20:00 Nasal Cannula 5.00 02/07/17 16:00 98.4 96 18 131/78 (95) 95 I/O 02/07/17 02/07/17 02/07/17 02/08/17 02/08/17 02/08/17 06:59 14:59 22:59 06:59 14:59 22:59 Intake Total 490 ml 600 ml 420 ml 480 ml Output Total 625 ml 305 ml 650 ml Balance -135 ml 600 ml 115 ml -170 ml Intake Oral 240 ml 600 ml 420 ml 480 ml IV Total 250 ml Output Urine Total 625 ml 305 ml 650 ml # Voids 3 3 # Bowel Movements 1 0 Result Diagram: 02/07/17 0454 02/07/17 0452 Imaging Last Impressions Chest X-Ray 02/07/17 0000 Signed Impressions: Service Date/Time: Tuesday, February 07, 2017 02:03 - CONCLUSION: Stable chest x-ray with bilateral airspace consolidation, left greater than right. Jim Michaels MD Chest CT 02/07/17 0000 Signed Impressions: Service Date/Time: Tuesday, February 07, 2017 17:08 - CONCLUSION: Markedly abnormal CT scan of the chest with interstitial and alveolar opacity in both lungs consistent with an inflammatory process. There is no significant pleural effusion. Hank Farah MD FACR Catheter Placement X-Ray 01/21/17 0000 Signed Impressions: Service Date/Time: Saturday, January 21, 2017 16:07 - CONCLUSION: Uncomplicated line placement as above. Jim Aly MD Central Venous Line 01/19/17 0000 Signed Impressions: Service Date/Time: Thursday, January 19, 2017 10:46 - CONCLUSION: Uncomplicated line placement as above. Jim Aly MD Brain MRI 01/11/17 0000 Signed Impressions: Service Date/Time: Wednesday, January 11, 2017 15:04 - CONCLUSION: 1. Stable focus of abnormal signal involving the left centrum semiovale likely related to prior lacunar infarct. No acute intracranial anatomy. Rafiq Nielson MD Head CT 01/10/17 0917 Signed Impressions: Service Date/Time: Tuesday, January 10, 2017 09:49 - CONCLUSION: 1. Interval development of left sided mastoiditis since 11/22/2016. Clinical correlation is recommended. 2. Otherwise, no acute intracranial abnormality. Eriberto Madison MD Abdomen/Pelvis CT 12/25/16 1100 Signed Impressions: Service Date/Time: Sunday, December 25, 2016 12:00 - CONCLUSION: Interval development of anasarca, small bilateral effusions and small to moderate ascites. No significant ileus, hydronephrosis, mass or lymphadenopathy. Status post cholecystectomy. Bobby Martins MD Abdomen X-Ray 12/25/16 0857 Signed Impressions: Service Date/Time: Sunday, December 25, 2016 09:27 - CONCLUSION: No acute disease. Bobby Martins MD Upper Extremity Ultrasound 12/24/16 0000 Signed Impressions: Service Date/Time: Saturday, December 24, 2016 11:58 - CONCLUSION: Normal examination. Tr Luna MD Renal Ultrasound 12/24/16 0000 Signed Impressions: Service Date/Time: Saturday, December 24, 2016 11:53 - CONCLUSION: 1. Increased echogenicity of the renal cortex which can be seen with underlying medical renal disease. 2. No findings to indicate renal obstruction. 3. Small bilateral effusions and a trace amount of ascites within the abdomen. Umesh Farah MD Tibia/Fibula X-Ray 12/03/16 0000 Signed Impressions: Service Date/Time: Saturday, December 03, 2016 15:09 - CONCLUSION: Excellent alignment of the patient's tibial fracture post rodding. Patient has a minimally displaced fibular fracture as well. Umesh Farah MD Ankle X-Ray 12/02/16 0000 Signed Impressions: Service Date/Time: November 18:16 - CONCLUSION: 1. The ankle mortise is intact. 2. Distal tibial and fibular fractures again noted. Please see right leg report for further details. Javier Marino MD Objective Remarks GENERAL: Well-nourished, well-developed patient in NAD. Sitting up in hospital bed. Awake and alert. SKIN: Warm and dry. No rash. HEAD: Normocephalic. Atraumatic. EYES: EOMI. No scleral icterus. No injection or drainage. ENT: No nasal bleeding or discharge. Mucous membranes pink and moist. NECK: Supple. Trachea midline. CARDIOVASCULAR: Tachycardic. S1, S2 noted. No murmur appreciated. RESPIRATORY: No accessory muscle use. Clear to auscultation but diminished at the bases bilaterally. Breath sounds equal bilaterally. GASTROINTESTINAL: Abdomen soft, non-tender, nondistended. Normoactive bowel sounds x4. MUSCULOSKELETAL: No obvious deformities. Extremities without clubbing or cyanosis. 1-2+ BLE pitting edema L>R. NEUROLOGICAL: Awake and alert. Spontaneous movement noted in all 4 extremities. Normal speech. PSYCHIATRIC: Appropriate mood and affect; insight and judgment normal. Procedures 12/03: IM Reymundo fixation right lower extremity 01/21 Vas-Cath placement Medications and IVs Current Medications Medications (Trade) Dose Ordered Sig/Marin Route Start Time Stop Time Status Last Admin (Rivka-Colace) 1 tab BID PO 12/03/16 21:00 02/03/17 21:23 (Milk Of Magnesia Liq) 30 ml Q12H PRN PO 12/03/16 16:00 (Dulcolax Supp) 10 mg DAILY PRN RECTAL 12/03/16 16:00 (Catapres) 0.1 mg Q6H PRN PO 12/11/16 13:30 12/27/16 04:20 (Lipitor) 80 mg DAILY PO 12/21/16 09:00 02/08/17 09:42 (Tums Chew) 1,000 mg Q12HR CHEW 12/22/16 21:00 02/08/17 09:42 (Drisdol) 50,000 units Q7D PO 12/23/16 09:00 02/03/17 08:57 (Tylenol) 650 mg Q6H PRN PO 12/24/16 14:15 (D50w (Vial) Inj) 50 ml UNSCH PRN IV 12/26/16 04:30 (Glucagon Inj) 1 mg UNSCH PRN OTHER 12/26/16 04:30 01/19/17 06:11 (Norvasc) 10 mg DAILY PO 12/29/16 09:00 02/08/17 09:43 (Zofran Liq) 4 mg Q6H PRN PO 12/28/16 15:45 01/01/17 02:37 (Protonix) 40 mg DAILY PO 12/29/16 09:00 Future hold 02/08/17 09:43 (Pill Splitter) 1 ea UNSCH PRN OTHER 12/28/16 16:15 (Theragran M Tab) 1 tab DAILY PO 01/01/17 10:15 02/08/17 09:42 (Megace Liq) 400 mg BID PO 01/07/17 21:00 02/08/17 09:40 (Remeron Soltab Odt) 15 mg HS PO 01/09/17 21:00 02/07/17 21:57 (Ativan Inj) 1 mg Q4H PRN IV PUSH 01/10/17 21:00 Miscellaneous Information Patient in critical care unit? Ass... Q361D .XX 01/14/17 06:00 01/14/17 06:00 (Lovenox Inj) 30 mg DAILY SQ 01/14/17 09:00 Future hold 01/29/17 09:14 (Trileptal) 300 mg BID PO 01/15/17 21:00 02/08/17 09:42 (Mucinex Er) 600 mg BID PO 01/17/17 13:00 02/08/17 09:43 (Plaquenil) 200 mg DAILY PO 01/18/17 12:00 02/08/17 09:42 (NS Flush) DAILY IVF 01/20/17 09:00 02/08/17 09:44 (NS Flush) UNSCH PRN IVF 01/19/17 11:15 ([place] 5-325 Mg) 1 tab Q6H PRN PO 01/19/17 12:15 01/19/17 20:26 (Duoneb Neb) 1 ampule Q2HR NEB PRN NEB 01/21/17 13:45 02/08/17 11:57 (Apresoline Inj) 10 mg Q6H PRN IV PUSH 01/21/17 17:30 01/31/17 16:26 (Apresoline) 50 mg Q8HR PO 01/21/17 17:30 02/08/17 05:20 (NS Flush) UNSCH PRN IVF 01/21/17 18:00 02/02/17 09:47 (Heparin Inj) UNSCH PRN IV FLUSH 01/21/17 18:00 Miscellaneous Information Patient in critical care unit? Ass... Q361D .XX 01/22/17 14:45 01/22/17 14:45 (Bactroban Nasal 2% Oint) 1 applic BID NASAL 01/22/17 21:00 02/08/17 09:43 Sodium Chloride 1,000 ml @ 0 mls/hr TITRATE PRN IV 01/22/17 15:45 01/22/17 13:30 (Heparin Inj) 8,000 units UNSCH PRN IV FLUSH 01/22/17 15:45 Sodium Chloride 1,000 ml @ 200 mls/hr Q5H PRN IV 01/22/17 15:45 Sodium Chloride 200 ml @ 0 mls/hr UNSCH PRN IV 01/22/17 15:45 (Mannitol Inj) 12.5 gm UNSCH PRN IV 01/22/17 15:45 (Albumin 25% Inj) 25 gm UNSCH PRN IV 01/22/17 15:45 (NS Flush) 5 ml UNSCH PRN IV FLUSH 01/22/17 15:45 (Heparin Inj) Dwell Heparin to f... UNSCH PRN OTHER 01/22/17 15:45 01/22/17 15:30 (Gentamicin (Dialysis) Inj) 10 mg UNSCH PRN OTHER 01/22/17 15:45 01/22/17 15:30 (Gelfoam 12 Mm/7 Mm Top) 1 foam UNSCH PRN TOPICAL 01/22/17 15:45 (Zofran Inj) 4 mg UNSCH PRN IV 01/22/17 15:45 (Benadryl) 25 mg UNSCH PRN PO 01/22/17 15:45 (Nitrostat Sl) 0.4 mg UNSCH PRN SL 01/22/17 15:45 (Catapres) 0.1 mg UNSCH PRN PO 01/22/17 15:45 (NovoLOG SUPPLEMENTAL SCALE) 1 HS SQ 01/24/17 21:00 02/07/17 22:12 (NovoLOG SUPPLEMENTAL SCALE) 1 TIDAC SQ 01/24/17 12:00 02/06/17 12:25 (K-Phos Neutral) 250 mg BID PO 01/24/17 12:00 02/08/17 09:42 (Lantus Inj) 8 units BID SQ 01/25/17 21:00 02/08/17 09:00 (Heparin Central Flush) 200 units DAILY PRN IV FLUSH 01/29/17 13:00 01/29/17 14:21 (Flonase Wally Spr) 1 spray BID NASAL 01/30/17 21:00 02/08/17 09:47 (Flagyl) 500 mg Q8HR PO 01/31/17 14:00 02/08/17 05:20 (Lopressor) 50 mg Q12HR PO 02/02/17 09:00 02/08/17 09:43 (Levaquin) 500 mg DAILY@1100 PO 02/04/17 11:00 02/08/17 11:17 (Lactinex) 1 tab TID PO 02/07/17 09:00 02/08/17 09:41 Pharmacy Profile Note 0 ml @ 0 mls/hr UNSCH OTHER 02/07/17 04:00 (Deltasone) 10 mg BID PO 02/07/17 21:00 02/08/17 09:43 A/P Problem List: (1) DM (diabetes mellitus) type I uncontrolled with renal manifestation ICD Code: E10.29 - Uncontrolled type 1 diabetes mellitus with renal manifestations; E10.65 - Type 1 diabetes mellitus with hyperglycemia Status: Chronic (2) Seizure ICD Code: R56.9 - Unspecified convulsions Status: Chronic (3) Closed fracture of right tibia and fibula ICD Code: S82.201A - Unspecified fracture of shaft of right tibia, initial encounter for closed fracture; S82.401A - Unspecified fracture of shaft of right fibula, initial encounter for closed fracture Status: Chronic (4) Acute kidney injury superimposed on chronic kidney disease ICD Code: N17.9 - Acute kidney failure, unspecified; N18.9 - Chronic kidney disease, unspecified Status: Acute (5) Anemia ICD Code: D64.9 - Anemia Status: Acute (6) Weakness of right side of body ICD Code: M62.81 - Weakness of right side of body Status: Chronic (7) Lupus ICD Code: M32.9 - Systemic lupus erythematosus Status: Chronic (8) UTI (urinary tract infection) ICD Code: N39.0 - Urinary tract infection Status: Acute Assessment and Plan 46yo AAF with long-standing history of lupus, hypertension, diabetes mellitus and chronic kidney disease who was admitted to the hospital status post a closed right tibia fracture and underwent IM rodding. Acute respiratory failure Pneumonia Chest x-ray 02/07/17 shows stable exam with bilateral airspace consolidation left greater than right CT of the chest obtained which was markedly abnormal with interstitial and alveolar opacity in both lungs consistent with inflammatory process Patient currently on nasal cannula 5 L with 92% oxygen saturation Pulmonary following. Started on by mouth prednisone 10 mg twice a day. Patient currently on Levaquin 500 mg daily Patient will need a home oxygen walk test prior discharge Diastolic dysfunction, grade I Echocardiogram done 12/25/16 shows EF 55-60%, grade 1 diastolic dysfunction and pulmonary arterial pressure 40mmHg BLE edema bilateral doppler US ordered to r/o DVT Acute blood loss anemia Transfused 2 units packed red blood cells on 01/29/17 for hemoglobin of 6.7 Hemoglobin trending down. Repeat studies ordered. iron studies reviewed - not suggestive of GRACE 01/29 hemoccult negative Evaluated by GI, previous colonoscopy and endoscopy done 2 months ago which was normal. GI signed off. Acute renal failure Chronic kidney disease stage III Renal ultrasound shows medical renal disease improved overall but creatinine trending up avoid nephrotoxic agents repeat studies ordered to monitor Diabetes mellitus type 2 Hemoglobin A1c 10.8 Continue Accu-Cheks with sliding scale insulin blood sugars controlled Lupus Continue Plaquenil Continue steroids Seizure No recent activity Continue Trileptal Closed right tib-fib fracture Vitamin D deficiency 25-OH Vitamin D level 9.4 Continue PT Patient had intramedullary reymundo for treatment Continue vitamin D Cardiopulmonary arrest Resolved Event occurred Status post CODE BLUE after receiving Versed and fentanyl for conscious sedation. History of CVA Chronic right hemiplegia Supportive care Follow clinically Continue PT and OT Hypertension, controlled Continue on Lopressor 50 mg twice a day, hydralazine 50 mg every 8h and Norvasc 10mg daily continue to monitor Hypernatremia 2gm Na restriction monitor. am labs ordered. C Diff positive continue on Metronidazole continue on Lactobacillus monitor loose stools DVT prophylaxis SCDs and Lovenox Discussed with patient and Dr. Glaser Problem Qualifiers (1) Closed fracture of right tibia and fibula: Celia Benitez Feb 08, 2017 12:55
--- NOTE | 2017-02-08 14:52 | RADRPT ---
EXAM DATE/TIME: 02/08/2017 14:03 [facility] COMPARISON: No previous studies available for comparison. INDICATIONS : Bilateral leg swelling. MEDICAL HISTORY : Seizures. Lupus. Hypercholesterolemia. Right leg fracture. Diabetes. Chronic kidney disease. Cerebrov ascular accident. Hypertension. Asthma. . Arthritis. Cdiff. MRSA.VRE. SURGICAL HISTORY : Cholecystectomy.Hysterectomy. section.Right leg fracture repair with yuri. Left food debridem ent. ENCOUNTER: Initial ACUITY: 2 months PAIN SCORE: 1/10 LOCATION: Bilateral legs. TECHNIQUE: Venous ultrasound of the left and right leg was performed from the inguinal ligament to the proximal calf. Real-time, color Doppler and spectral tracing, compression and augmentation techniques were us ed. FINDINGS: RIGHT LEG: There is normal compressibility of the deep venous system from the inguinal region to the proximal ca lf. No echogenic clot is seen in the lumen of the common femoral, femoral, popliteal, and posterior tibial veins. There is a normal response of the venous system to proximal and distal augmentation an d respiration. LEFT LEG: There is normal compressibility of the deep venous system from the inguinal region to the proximal ca lf. No echogenic clot is seen in the lumen of the common femoral, femoral, popliteal, and posterior tibial veins. There is a normal response of the venous system to proximal and distal augmentation an d respiration. CONCLUSION: 1. No evidence of deep venous thrombosis. Riley Last MD on February 08, 2017 at 14:50 Board Certified Radiologist. This report was verified electronically.
[2017-02-08] MEDS ORDERED: VANCOMYCIN 1,000 MG/NS 250 ML IV ONE ×2 (17:00)
[2017-02-08 17:58] LABS: AUTOMATED NEUTROPHIL # 6.6 TH/MM3 (1.8-7.7); BASOPHIL % 0.3 % (0.0-2.0); EOSINOPHIL % 0.1 % (0.0-4.0); HEMATOCRIT 25.3 % (35.0-46.0); LYMPH % 4.6 % (9.0-44.0); LYMPHOCYTE # 0.3 TH/MM3 (1.0-4.8); MEAN CORPUSCULAR HEMOGLOBIN 30.5 PG (27.0-34.0); MEAN CORPUSCULAR HGB CONC 33.5 % (32.0-36.0); MONO % 3.2 % (0.0-8.0); NEUT % 91.8 % (16.0-70.0); PLATELET COUNT 87 TH/MM3 (150-450); RED BLOOD COUNT 2.78 MIL/MM3 (4.00-5.30); RED CELL DISTRIBUTION WIDTH 16.2 % (11.6-17.2); WHITE BLOOD COUNT 7.2 TH/MM3 (4.0-11.0)
[2017-02-08 18:06] LABS: HEMO FLAGS AUTO DIFF
[2017-02-08 18:18] LABS: BICARBONATE 25.6 MEQ/L (21.0-32.0); POTASSIUM 3.9 MEQ/L (3.5-5.1)
[2017-02-08 18:37] LABS: PLATELET ESTIMATE SMEAR LOW (NORMAL); PLATELET MORPHOLOGY NORMAL (NORMAL); SCAN/DIFF AUTO DIFF CONFIRMED
--- NOTE | 2017-02-08 20:08 | HHI.PR ---
Subjective Remarks 46 YOAA female with Bilat infilt, Alveolitis/ infl On 5LNC Mild sob Anxious to go home Objective Vital Signs Vital Signs Date Time Temp Pulse Resp B/P (MAP) Pulse Ox O2 Delivery O2 Flow Rate FiO2 02/08/17 16:00 98.7 104 20 142/68 (92) 96 02/08/17 15:20 93 Nasal Cannula 5.00 02/08/17 12:00 98.7 99 20 127/61 (83) 93 02/08/17 08:00 98.9 107 20 114/58 (76) 92 02/08/17 08:00 102 02/08/17 08:00 94 Nasal Cannula 5.00 02/08/17 07:38 87 Nasal Cannula 5.00 02/08/17 06:21 97.7 90 18 127/73 (91) 98 02/08/17 04:00 Nasal Cannula 5.00 02/08/17 01:17 97.6 90 16 126/70 (88) 98 02/08/17 00:00 Nasal Cannula 5.00 02/07/17 21:45 98.7 92 16 134/67 (89) 97 02/07/17 20:08 97 I/O 02/07/17 02/07/17 02/07/17 02/08/17 02/08/17 02/08/17 07:00 15:00 23:00 07:00 15:00 23:00 Intake Total 490 ml 600 ml 420 ml 480 ml 480 ml Output Total 625 ml 305 ml 650 ml 600 ml Balance -135 ml 600 ml 115 ml -170 ml -120 ml Intake Oral 240 ml 600 ml 420 ml 480 ml 480 ml IV Total 250 ml Output Urine Total 625 ml 305 ml 650 ml 600 ml # Voids 3 3 # Bowel Movements 1 0 0 Result Diagram: 02/08/17 1715 02/08/17 171 Objective Remarks GENERAL: MBMN Female, Mild sob SKIN: Warm and dry. HEAD: Normocephalic. EYES: No scleral icterus. No injection or drainage. NECK: Supple, trachea midline. No JVD or lymphadenopathy. CARDIOVASCULAR: Regular rate and rhythm without murmurs, gallops, or rubs. RESPIRATORY: Breath sounds equal bilaterally. No accessory muscle use. GASTROINTESTINAL: Abdomen soft, non-tender, nondistended. MUSCULOSKELETAL: No cyanosis, or edema. BACK: Nontender without obvious deformity. No CVA tenderness. A/P Assessment and Plan Bilat infilt, infection/ inflamation/ alveolitis Hypoxia DM SLE H/O Sz PLAN: DW pt PO steroids monitor BS Cont Abx Supplement 02 to keep sat >90% Giovanni Puga MD Feb 08, 2017 20:08
[2017-02-08] MEDS: MIRTAZAPINE ODT 15 MG TAB PO SCH (20:22)
[2017-02-09] VITALS (7 sets, daily range): BP systolic 92–153; BP diastolic 50–78; PULSE 96–101; RESP 20; TEMP 97.2–98.5; O2SAT 89–94
[2017-02-09] MEDS: metroNIDAZOLE 500 MG TAB PO SCH ×2 (05:30→13:42)
[2017-02-09] MEDS: hydrALAZINE HCL 50 MG TAB PO SCH ×2 (05:30→13:42)
[2017-02-09 08:50] LABS: AUTOMATED NEUTROPHIL # 8.6 TH/MM3 (1.8-7.7); BASOPHIL % 0.3 % (0.0-2.0); EOSINOPHIL # 0.1 TH/MM3 (0-0.4); EOSINOPHIL % 0.5 % (0.0-4.0); HEMATOCRIT 26.5 % (35.0-46.0); LYMPH % 4.3 % (9.0-44.0); LYMPHOCYTE # 0.4 TH/MM3 (1.0-4.8); MEAN CELL VOLUME 91.7 FL (80.0-100.0); MEAN CORPUSCULAR HEMOGLOBIN 30.3 PG (27.0-34.0); MONO % 4.5 % (0.0-8.0); NEUT % 90.4 % (16.0-70.0); PLATELET COUNT 98 TH/MM3 (150-450); RED BLOOD COUNT 2.89 MIL/MM3 (4.00-5.30); RED CELL DISTRIBUTION WIDTH 16.5 % (11.6-17.2); WHITE BLOOD COUNT 9.5 TH/MM3 (4.0-11.0)
[2017-02-09] MEDS: FLUTICASONE PROPIONATE 50 MCG/ACT 16 GM NASAL SPRAY NASAL SCH (09:00)
[2017-02-09] MEDS: DOCUSATE SODIUM 50 MG/SENNA 8.6 MG TAB PO SCH (09:00)
[2017-02-09] MEDS: INSULIN GLARGINE 1,000 UNITS/10 ML VIAL SQ SCH (09:00)
[2017-02-09] MEDS: MUPIROCIN 2% OINT 1 APPLIC/GM SYR NASAL SCH (09:00)
[2017-02-09 09:02] LABS: HEMO FLAGS AUTO DIFF
[2017-02-09 09:16] LABS: BICARBONATE 24.9 MEQ/L (21.0-32.0); POTASSIUM 4.1 MEQ/L (3.5-5.1)
[2017-02-09 09:46] LABS: PLATELET ESTIMATE SMEAR LOW (NORMAL); PLATELET MORPHOLOGY NORMAL (NORMAL); SCAN/DIFF AUTO DIFF CONFIRMED
[2017-02-09] MEDS: INSULIN ASPART SUPPLEMENTAL SCALE SQ SCH ×3 (10:02→17:00)
[2017-02-09] MEDS: MEGESTROL ACETATE SUSP 400 MG/10 ML CUP PO SCH (10:05)
[2017-02-09] MEDS: CALCIUM CARBONATE 500 MG CHEWABLE TAB CHEW SCH (10:05)
[2017-02-09] MEDS: guaiFENesin E.R. 600 MG TAB PO SCH (10:05)
[2017-02-09] MEDS: LEVOFLOXACIN 500 MG TAB PO SCH (10:05)
[2017-02-09] MEDS: POTASSIUM PHOSPHATE/SODIUM PHOSPHATE 250 MG TAB PO SCH (10:06)
[2017-02-09] MEDS: ATORVASTATIN 40 MG TAB PO SCH (10:06)
[2017-02-09] MEDS: LACTOBACILLUS ACIDOPHILUS TAB PO SCH ×3 (10:06→18:00)
[2017-02-09] MEDS: HYDROXYCHLOROQUINE SULFATE 200 MG TAB PO SCH (10:06)
[2017-02-09] MEDS: OXcarbazepine 300 MG TAB PO SCH (10:07)
[2017-02-09] MEDS: PANTOPRAZOLE SOD 40 MG DELAYED RELEASE TAB PO SCH (10:07)
[2017-02-09] MEDS: METOPROLOL TARTRATE 50 MG TAB PO SCH (10:07)
[2017-02-09] MEDS: MULTIVITAMINS/MINERALS THERAPEUTIC TAB PO SCH (10:07)
[2017-02-09] MEDS: predniSONE 10 MG TAB PO SCH (10:07)
[2017-02-09] MEDS: SODIUM CHLORIDE 0.9% FLUSH 10 ML FLUSH IVF SCH (10:09)
[2017-02-09] MEDS: ENOXAPARIN SODIUM 30 MG/0.3 ML SYRINGE SQ SCH (10:09)
[2017-02-09] MEDS ORDERED: WHEEMIS3 ×2 (11:20→11:49)
--- NOTE | 2017-02-09 11:24 | HHI.FF ---
Face to Face Verification Diagnosis: (1) Fibula fracture (2) Tibia fracture (3) Acute kidney injury superimposed on chronic kidney disease (4) Physical deconditioning (5) Chronic respiratory failure with hypoxia (6) DM (diabetes mellitus), type 1 with hyperosmolarity (7) Diastolic dysfunction Home Health Nursing Order: Medical education Signs/symptoms of disease process Diabetic education CHF education Oxygen administration education Medication education-adverse effect Nursing assessment with vital signs I have seen patient Love Lang on 02/09/17. My clinical findings support the need for the requested home health care services because: Ltd mobility - disease progression Patient has SOB Deconditioned w/ increased weakness Limited ability to care for self High risk of falls I certify that my clinical findings support that this patient is homebound because: Post-op weakness Hx COPD- exertion dyspnea/weakness Unsteady gait/balance Unsafe to leave home unassisted Unable to use public transportation Ceila Benitez Feb 09, 2017 11:24
[2017-02-09] MEDS ORDERED: PRED10 PO (11:32)
[2017-02-09] MEDS ORDERED: LEVA500T20 PO (11:32)
[2017-02-09] MEDS ORDERED: LACT PO (12:04)
[2017-02-09] MEDS ORDERED: HYDR-3800 PO (12:04)
[2017-02-09] MEDS ORDERED: AMLO10 PO (12:04)
[2017-02-09] MEDS ORDERED: METO-309 PO (12:04)
[2017-02-09] MEDS ORDERED: METR-1 PO (12:04)
[2017-02-09] MEDS: RESP: ALBUTEROL 2.5 MG/IPRATROPIUM 0.5 MG NEB (PRN) NEB (13:48)
[2017-02-09] MEDS ORDERED: OXYGENDME NAS.CANULA (14:20)
--- NOTE | 2017-02-09 14:31 | HHI.DS ---
Discharge Summary Admission Date Dec 02, 2016 at 19:58 Discharge Date: Feb 09, 2017 Admitting Diagnosis closed right tibia/fibular fracture (1) Tibia fracture ICD Code: S82.209A - Unspecified fracture of shaft of unspecified tibia, initial encounter for closed fracture Status: Acute (2) Fibula fracture ICD Code: S82.409A - Unspecified fracture of shaft of unspecified fibula, initial encounter for closed fracture Status: Acute (3) Closed fracture of right tibia and fibula ICD Code: S82.201A - Unspecified fracture of shaft of right tibia, initial encounter for closed fracture; S82.401A - Unspecified fracture of shaft of right fibula, initial encounter for closed fracture Status: Chronic (4) Acute kidney injury superimposed on chronic kidney disease ICD Code: N17.9 - Acute kidney failure, unspecified; N18.9 - Chronic kidney disease, unspecified Status: Acute (5) Anemia ICD Code: D64.9 - Anemia Status: Acute (6) Weakness of right side of body ICD Code: M62.81 - Weakness of right side of body Status: Chronic (7) Lupus ICD Code: M32.9 - Systemic lupus erythematosus Status: Chronic (8) UTI (urinary tract infection) ICD Code: N39.0 - Urinary tract infection Status: Acute (9) Diastolic dysfunction ICD Code: I51.9 - Heart disease, unspecified (10) Physical deconditioning ICD Code: R53.81 - Other malaise Status: Acute (11) Respiratory infection ICD Code: J98.8 - Other specified respiratory disorders (12) Chronic respiratory failure with hypoxia ICD Code: J96.11 - Chronic respiratory failure with hypoxia (13) C. difficile diarrhea ICD Code: A04.7 - Enterocolitis due to Clostridium difficile (14) Insulin dependent diabetes mellitus ICD Code: E11.9 - Insulin dependent diabetes mellitus; Z79.4 - shelter ( current) use of insulin Status: Acute (15) Hypertension ICD Code: I10 - Hypertension Status: Acute (16) GERD (gastroesophageal reflux disease) ICD Code: K21.9 - Gastroesophageal reflux disease Status: Chronic (17) Vitamin D deficiency ICD Code: E55.9 - Vitamin D deficiency, unspecified Status: Acute (18) DM (diabetes mellitus) type I uncontrolled with renal manifestation ICD Code: E10.29 - Uncontrolled type 1 diabetes mellitus with renal manifestations; E10.65 - Type 1 diabetes mellitus with hyperglycemia Status: Chronic (19) Seizure ICD Code: R56.9 - Unspecified convulsions Status: Chronic (20) Cardiopulmonary arrest with successful resuscitation ICD Code: I46.9 - Cardiac arrest, cause unspecified Status: Resolved Procedures 12/03: IM Reymundo fixation right lower extremity 01/21 Vas-Cath placement Brief History - From Admission Written by Pallavi Arriaga, acting as scribe for Dr. Bello on 12/02/16 at 23: 39. This is a pleasant 46 year old female patient with a past medical history which includes DM with multiple past admissions for DKA, HTN, asthma, CKD stage III, CVA 2013 with residual deficit RUE, Seizure disorder and Lupus. Patient was walking down stairs leaving her father's house when she slipped and fell. Patient landed on her right side hurting her right ankle. Pain is worse with movement or palpation. Pain was and 8 out of 10 at it worst now pain has improved after closed reduction and splint placement in ER. She denies any other injuries. Patient did not lose consciousness and did not hit her head. Patient denies dizziness, feeling light headed, short of breath, chest pain, N/V /D, black tarry stools or red blood in stools. CBC/BMP: 02/09/17 0808 02/09/17 0808 Significant Findings Laboratory Tests Test 02/07/17 04:52 02/07/17 04:54 02/08/17 17:15 02/09/17 08:08 Blood Urea Nitrogen 37 MG/DL (7-18) 37 MG/DL (7-18) 37 MG/DL (7-18) Creatinine 1.99 MG/DL (0.50-1.00) 2.30 MG/DL (0.50-1.00) 2.25 MG/DL (0.50-1.00) Random Glucose 137 MG/DL (74-106) 262 MG/DL (74-106) 305 MG/DL (74-106) Calcium Level 8.1 MG/DL (8.5-10.1) 7.8 MG/DL (8.5-10.1) 7.7 MG/DL (8.5-10.1) Sodium Level 149 MEQ/L (136-145) 146 MEQ/L (136-145) Chloride Level 114 MEQ/L (98-107) 112 MEQ/L (98-107) 110 MEQ/L (98-107) Estimat Glomerular Filtration Rate 32 ML/MIN (>89) 27 ML/MIN (>89) 28 ML/MIN (>89) White Blood Count 11.8 TH/MM3 (4.0-11.0) Red Blood Count 2.79 MIL/MM3 (4.00-5.30) 2.78 MIL/MM3 (4.00-5.30) 2.89 MIL/MM3 (4.00-5.30) Hemoglobin 8.4 GM/DL (11.6-15.3) 8.5 GM/DL (11.6-15.3) 8.7 GM/DL (11.6-15.3) Hematocrit 25.6 % (35.0-46.0) 25.3 % (35.0-46.0) 26.5 % (35.0-46.0) Platelet Count 86 TH/MM3 (150-450) 87 TH/MM3 (150-450) 98 TH/MM3 (150-450) Mean Platelet Volume 11.2 FL (7.0-11.0) 11.2 FL (7.0-11.0) 11.3 FL (7.0-11.0) Neutrophils (%) (Auto) 86.5 % (16.0-70.0) 91.8 % (16.0-70.0) 90.4 % (16.0-70.0) Lymphocytes (%) (Auto) 8.5 % (9.0-44.0) 4.6 % (9.0-44.0) 4.3 % (9.0-44.0) Neutrophils # (Auto) 10.2 TH/MM3 (1.8-7.7) 8.6 TH/MM3 (1.8-7.7) Lymphocytes # (Auto) 0.3 TH/MM3 (1.0-4.8) 0.4 TH/MM3 (1.0-4.8) Platelet Estimate LOW (NORMAL) LOW (NORMAL) B-Type Natriuretic Peptide 398 PG/ML (0-100) Imaging Last Impressions Lower Extremity Ultrasound 02/08/17 0000 Signed Impressions: Service Date/Time: Wednesday, February 08, 2017 14:03 - CONCLUSION: 1. No evidence of deep venous thrombosis. Riley Last MD Chest X-Ray 02/07/17 0000 Signed Impressions: Service Date/Time: Tuesday, February 07, 2017 02:03 - CONCLUSION: Stable chest x-ray with bilateral airspace consolidation, left greater than right. Jim Michaels MD Chest CT 02/07/17 0000 Signed Impressions: Service Date/Time: Tuesday, February 07, 2017 17:08 - CONCLUSION: Markedly abnormal CT scan of the chest with interstitial and alveolar opacity in both lungs consistent with an inflammatory process. There is no significant pleural effusion. Hank Farah MD FACR Catheter Placement X-Ray 01/21/17 0000 Signed Impressions: Service Date/Time: Saturday, January 21, 2017 16:07 - CONCLUSION: Uncomplicated line placement as above. Jim Aly MD Central Venous Line 01/19/17 0000 Signed Impressions: Service Date/Time: Thursday, January 19, 2017 10:46 - CONCLUSION: Uncomplicated line placement as above. Jim Aly MD Brain MRI 01/11/17 0000 Signed Impressions: Service Date/Time: Wednesday, January 11, 2017 15:04 - CONCLUSION: 1. Stable focus of abnormal signal involving the left centrum semiovale likely related to prior lacunar infarct. No acute intracranial anatomy. Rafiq Nielson MD Head CT 01/10/17 0917 Signed Impressions: Service Date/Time: Tuesday, January 10, 2017 09:49 - CONCLUSION: 1. Interval development of left sided mastoiditis since 11/22/2016. Clinical correlation is recommended. 2. Otherwise, no acute intracranial abnormality. Eriberto Madison MD Abdomen/Pelvis CT 12/25/16 1100 Signed Impressions: Service Date/Time: Sunday, December 25, 2016 12:00 - CONCLUSION: Interval development of anasarca, small bilateral effusions and small to moderate ascites. No significant ileus, hydronephrosis, mass or lymphadenopathy. Status post cholecystectomy. Bobby Martins MD Abdomen X-Ray 12/25/16 0857 Signed Impressions: Service Date/Time: Sunday, December 25, 2016 09:27 - CONCLUSION: No acute disease. Bobby Martins MD Upper Extremity Ultrasound 12/24/16 0000 Signed Impressions: Service Date/Time: Saturday, December 24, 2016 11:58 - CONCLUSION: Normal examination. Tr Luna MD Renal Ultrasound 12/24/16 0000 Signed Impressions: Service Date/Time: Saturday, December 24, 2016 11:53 - CONCLUSION: 1. Increased echogenicity of the renal cortex which can be seen with underlying medical renal disease. 2. No findings to indicate renal obstruction. 3. Small bilateral effusions and a trace amount of ascites within the abdomen. Umesh Farah MD Tibia/Fibula X-Ray 12/03/16 0000 Signed Impressions: Service Date/Time: Saturday, December 03, 2016 15:09 - CONCLUSION: Excellent alignment of the patient's tibial fracture post rodding. Patient has a minimally displaced fibular fracture as well. Umesh Farah MD Ankle X-Ray 12/02/16 0000 Signed Impressions: Service Date/Time: November 18:16 - CONCLUSION: 1. The ankle mortise is intact. 2. Distal tibial and fibular fractures again noted. Please see right leg report for further details. Javier Marino MD PE at Discharge GENERAL: Well-nourished, well-developed patient in NAD. Sitting up in hospital bed. Awake and alert. Appears comfortable. SKIN: Warm and dry. No rash. HEAD: Normocephalic. Atraumatic. EYES: EOMI. No scleral icterus. No injection or drainage. ENT: No nasal bleeding or discharge. Mucous membranes pink and moist. NECK: Supple. Trachea midline. CARDIOVASCULAR: Tachycardic. S1, S2 noted. No murmur appreciated. RESPIRATORY: No accessory muscle use. Clear to auscultation but diminished at the bases bilaterally. Breath sounds equal bilaterally. GASTROINTESTINAL: Abdomen soft, non-tender, nondistended. Normoactive bowel sounds x4. MUSCULOSKELETAL: No obvious deformities. Extremities without clubbing or cyanosis. 1-2+ BLE pitting edema L>R. NEUROLOGICAL: Awake and alert. Spontaneous movement noted in all 4 extremities. Normal speech. PSYCHIATRIC: Appropriate mood and affect; insight and judgment normal. Pt update on day of discharge Patient seen and examined on day of discharge. Patient reports feeling well. Denies any acute issues. Denies any fever or chills. Denies any chest pain or shortness of breath. Denies any N/V or abdominal pain. Hospital Course Acute respiratory failure Pneumonia Respiratory inflammatory process likely alveolitis Chest x-ray 02/07/17 shows stable exam with bilateral airspace consolidation left greater than right CT of the chest obtained which was markedly abnormal with interstitial and alveolar opacity in both lungs consistent with inflammatory process Patient currently on nasal cannula 5 L with 92% oxygen saturation Pulmonary following. Started on by mouth prednisone 10 mg twice a day and to continue for 2-3 weeks per pulmonary. Patient currently on Levaquin 500 mg daily - continue x 5 days at time of discharge per pulmonary Patient failed home oxygen walk test and was set up for home oxygen prior to discharge Diastolic dysfunction, grade I Echocardiogram done 12/25/16 shows EF 55-60%, grade 1 diastolic dysfunction and pulmonary arterial pressure 40mmHg BLE edema bilateral doppler US ordered to r/o DVT - negative Acute blood loss anemia Transfused 2 units packed red blood cells on 01/29/17 for hemoglobin of 6.7 Hemoglobin stable iron studies reviewed - not suggestive of GRACE 01/29 hemoccult negative Evaluated by GI, previous colonoscopy and endoscopy done 2 months ago which was normal. GI signed off. Acute renal failure Chronic kidney disease stage III Renal ultrasound shows medical renal disease improved overall avoid nephrotoxic agents followed by nephrology suspected ATN, required dialysis KARLEY, ANCA, hepatitis profile are negative Diabetes mellitus type 2 DKA, resolved Hemoglobin A1c 10.8 Continue Accu-Cheks with sliding scale insulin blood sugars controlled Lupus Continue Plaquenil Continue steroids Seizure No recent activity Continue Trileptal Closed right tib-fib fracture s/p mechanical fall Vitamin D deficiency 25-OH Vitamin D level 9.4 Continue PT Patient had intramedullary reymundo for treatment 12/03/16 Continue vitamin D Cardiopulmonary arrest Resolved Event occurred Status post CODE BLUE after receiving Versed and fentanyl for conscious sedation. History of CVA Chronic right hemiplegia Supportive care Follow clinically Continue PT and OT Hypertension, controlled Continue on Lopressor 50 mg twice a day, hydralazine 50 mg every 8h and Norvasc 10mg daily continue to monitor Hypernatremia improved 2gm Na restriction C Diff positive diarrhea resolved continue on Metronidazole continue on Lactobacillus Pt Condition on Discharge: Stable Discharge Disposition: Disch w/ Home Health Serv Discharge Time: > 30 minutes Discharge Instructions DIET: Follow Instructions for: Heart Healthy Diet, Diabetic Diet, Low Sodium Diet Activities you can perform: Regular-No Restrictions, Weight Bearing as Cezar Follow up Referrals: Cardiology - 3 Weeks Orthopedics - 1 Week PCP Follow-up - 1 Week Pulmonology - 2 Weeks with Giovanni Puga MD New Medications: Bedside Commode (Bedside Commode) 1 Mis Mis EA EXTERNAL DIRECTED, #1 Lactobacillus Acidophilus (Lactobacillus Acidophilus) 1 Tab Tab 1 TAB PO TIDAC for Nutritional Supplement, #30 TAB 0 Refills Oxycodone-Acetaminophen (Percocet) 5-325 mg Tab 1 TAB PO Q4H PRN for PAIN, #60 TAB 0 Refills Oxygen (O2) (Oxygen (O2)) Device LITER DESTINI.CANULA CONTINUOUS for Prevent Hypoxemia, #3 Oxygen Concentrator Portable Gaseous 2 L/min via Nasal Canula Continuous For 99 months Walker/Adult/Folding (Walker/Adult/Folding) 1 Mis Mis EA .ROUTE DIRECTED, #1 0 Refills Wheelchair (Wheelchair) 1 Mis Mis EA .ROUTE DIRECTED for Community ambulation, #1 0 Refills Amlodipine (Norvasc) 5 Mg Tab 5 MG PO DAILY for Blood Pressure Management, #30 TAB Amlodipine (Norvasc) 10 Mg Tab 10 MG PO DAILY for Blood Pressure Management for 30 Days, #30 TAB Clonidine (Catapres) 0.1 Mg Tab 0.1 MG PO Q8HR for Blood Pressure Management, #90 TAB Enoxaparin Inj (Lovenox Inj) 30 Mg/0.3 Ml Syr 30 MG SQ Q24H for Prevent Blood Clot, #14 INJECTION Hydralazine HCl (Hydralazine HCl) 50 Mg Tablet 50 MG PO Q8HR for HYPERTENSION for 30 Days, #90 TAB 0 Refills Lactobacillus Acidophilus (Acidophilus/l-Sporogenes) 35 Million Cell-25 Million Cell Tab 1 TAB PO TID for C Diff for 30 Days, #90 TAB Levofloxacin (Levaquin) 500 Mg Tablet 500 MG PO DAILY@1100 for PNEUMONIA for 5 Days, #5 TAB 0 Refills Metoprolol Tartrate (Lopressor) 50 Mg Tab 50 MG PO Q12HR for HYPERTENSION for 30 Days, #60 TAB Metronidazole (Flagyl) 500 Mg Tab 500 MG PO Q8HR for C Diff for 1 Day, #3 TAB Prednisone (Prednisone) 10 Mg Tab 10 MG PO BID for ALVEOLITIS, #42 TAB 0 Refills Continued Medications: Atorvastatin (Atorvastatin) 80 Mg Tab 80 MG PO DAILY for Cholesterol Management, #30 TAB 0 Refills Fluoxetine (Fluoxetine) 10 Mg Tab 10 MG PO DAILY, #30 TAB 0 Refills Insulin Aspart Inj (Novolog Inj) 1,000 Unit/10 Ml Vial Unknown Dose SQ ACHS for Blood Sugar Management, #10 ML 0 Refills Max dose at bedtime ( ) units; sugars less than 70,(0) units; sugars 150-199,(2) units; sugars 200-249,(4) units; sugars 250-299,(7) units; sugars 300-349,(10) units; sugars greater than 349,(12)units Insulin Glargine Inj (Lantus Inj) 1,000 Unit/10 Ml Vial 10 UNITS SQ HS for Blood Sugar Management, #1 VIAL 0 Refills Levetiracetam (Levetiracetam) 500 Mg Tab 500 MG PO BID for Control Seizures, #60 TAB 0 Refills Phenytoin Extended (Dilantin) 100 Mg Cap 100 MG PO BID for Control Seizures, #90 CAP 0 Refills Discontinued Medications: Clonidine (Clonidine) 0.1 Mg Tab 0.1 MG PO DAILY for Blood Pressure Management, #60 TAB 0 Refills Celia Benitez Feb 09, 2017 14:30
--- NOTE | 2017-02-09 19:27 | HHI.PR ---
Subjective Remarks 46 YOAA female with Bilat infilt, Alveolitis/ infl On 5LNC Mild sob Anxious to go home Breathing better Objective Vital Signs Vital Signs Date Time Temp Pulse Resp B/P (MAP) Pulse Ox O2 Delivery O2 Flow Rate FiO2 02/09/17 16:00 98.5 99 20 124/69 (87) 94 02/09/17 13:48 89 Nasal Cannula 3.00 02/09/17 12:00 97.2 101 20 153/71 (98) 93 02/09/17 08:00 96 02/09/17 08:00 98.0 98 20 142/77 (98) 92 02/09/17 07:15 Nasal Cannula 3.00 50 02/09/17 04:00 97.9 98 20 153/78 (103) 92 02/09/17 04:00 Nasal Cannula 3.00 02/09/17 00:00 98.4 99 20 92/50 (64) 94 02/09/17 00:00 Nasal Cannula 5.00 02/08/17 20:38 105 02/08/17 20:00 Nasal Cannula 5.00 02/08/17 20:00 98.0 106 22 144/67 (92) 91 I/O 02/08/17 02/08/17 02/08/17 02/09/17 02/09/17 02/09/17 07:00 15:00 23:00 07:00 15:00 23:00 Intake Total 480 ml 480 ml 240 ml 240 ml Output Total 650 ml 600 ml 500 ml 240 ml Balance -170 ml -120 ml -260 ml 0 ml Intake Oral 480 ml 480 ml 240 ml 240 ml Output Urine Total 650 ml 600 ml 500 ml 240 ml # Voids 3 0 # Bowel Movements 0 0 0 Result Diagram: 02/09/17 0808 02/09/17 0808 Objective Remarks GENERAL: MBMN Female, Mild sob SKIN: Warm and dry. HEAD: Normocephalic. EYES: No scleral icterus. No injection or drainage. NECK: Supple, trachea midline. No JVD or lymphadenopathy. CARDIOVASCULAR: Regular rate and rhythm without murmurs, gallops, or rubs. RESPIRATORY: Breath sounds equal bilaterally. No accessory muscle use. GASTROINTESTINAL: Abdomen soft, non-tender, nondistended. MUSCULOSKELETAL: No cyanosis, or edema. BACK: Nontender without obvious deformity. No CVA tenderness. A/P Assessment and Plan Bilat infilt, infection/ inflamation/ alveolitis Hypoxia DM SLE H/O Sz PLAN: DW pt PO steroids monitor BS Cont Abx Supplement 02 to keep sat >90% DC Plans for home with home 02 Will FU in office Giovanni Puga MD Feb 09, 2017 19:27
== END 2017-02-09 19:46 | disposition home or self-care (01) | DRG 492 ==
LOC: NEPD 17:37 → NEDA 19:58 → N06A 20:54 → HIMW 12-04 07:00 → N06A 12-07 16:45 → PH5A 12-20 19:34 → PHICU 12-25 14:40 → PH5A 12-27 21:25 → PHICU 01-13 17:32 → PH3B 01-15 18:01 → N06B 01-19 20:01 → N03B 01-21 16:30 → N04A 01-22 17:43
PROVIDERS: ADMIT Internal Medicine; ATTEND Internal Medicine
PROC: 0QSG06Z Reposition Right Tibia with Intramedullary Internal Fixation Device, Open Approach (ICD-10-PCS; principal; 2016-12-03 13:45)
PROC: 30243N1 Transfusion of Nonautologous Red Blood Cells into Central Vein, Percutaneous Approach (ICD-10-PCS; 2016-12-05)
PROC: 5A09357 Assistance with Respiratory Ventilation, Less than 24 Consecutive Hours, Continuous Positive Airway Pressure (ICD-10-PCS; 2016-12-06)
PROC: 02HV33Z Insertion of Infusion Device into Superior Vena Cava, Percutaneous Approach (ICD-10-PCS; 2017-01-19)
PROC: B516ZZA Fluoroscopy of Right Subclavian Vein, Guidance (ICD-10-PCS; 2017-01-19)
PROC: B546ZZA Ultrasonography of Right Subclavian Vein, Guidance (ICD-10-PCS; 2017-01-19)
PROC: 05HM33Z Insertion of Infusion Device into Right Internal Jugular Vein, Percutaneous Approach (ICD-10-PCS; 2017-01-21)
PROC: B513ZZA Fluoroscopy of Right Jugular Veins, Guidance (ICD-10-PCS; 2017-01-21)
PROC: B543ZZA Ultrasonography of Right Jugular Veins, Guidance (ICD-10-PCS; 2017-01-21)
PROC: 5A1D60Z (ICD-10-PCS; 2017-01-21)
PROC: 5A09357 Assistance with Respiratory Ventilation, Less than 24 Consecutive Hours, Continuous Positive Airway Pressure (ICD-10-PCS; 2017-02-04)
PROC: 5A09357 Assistance with Respiratory Ventilation, Less than 24 Consecutive Hours, Continuous Positive Airway Pressure (ICD-10-PCS; 2017-02-07)
DX: S82.251A Displaced comminuted fracture of shaft of right tibia, initial encounter for closed fracture (principal); N17.0 Acute kidney failure with tubular necrosis; J96.01 Acute respiratory failure with hypoxia; J69.0 Pneumonitis due to inhalation of food and vomit; G92 Toxic encephalopathy; I50.33 Acute on chronic diastolic (congestive) heart failure; A04.7 Enterocolitis due to Clostridium difficile; I46.9 Cardiac arrest, cause unspecified; R18.8 Other ascites; N10 Acute pyelonephritis; E87.0 Hyperosmolality and hypernatremia; D62 Acute posthemorrhagic anemia; G81.91 Hemiplegia, unspecified affecting right dominant side; J98.11 Atelectasis; E10.10 Type 1 diabetes mellitus with ketoacidosis without coma; N18.3 Chronic kidney disease, stage 3 (moderate); E10.21 Type 1 diabetes mellitus with diabetic nephropathy; S82.401A Unspecified fracture of shaft of right fibula, initial encounter for closed fracture; E10.22 Type 1 diabetes mellitus with diabetic chronic kidney disease; E10.649 Type 1 diabetes mellitus with hypoglycemia without coma; G40.909 Epilepsy, unspecified, not intractable, without status epilepticus; D63.1 Anemia in chronic kidney disease; E87.5 Hyperkalemia; E87.70 Fluid overload, unspecified; E83.51 Hypocalcemia; T38.0X5A Adverse effect of glucocorticoids and synthetic analogues, initial encounter; T42.0X5A Adverse effect of hydantoin derivatives, initial encounter; K21.9 Gastro-esophageal reflux disease without esophagitis; I07.1 Rheumatic tricuspid insufficiency; H70.92 Unspecified mastoiditis, left ear; B95.2 Enterococcus as the cause of diseases classified elsewhere; M19.90 Unspecified osteoarthritis, unspecified site; T40.2X5A Adverse effect of other opioids, initial encounter; K59.00 Constipation, unspecified; E87.8 Other disorders of electrolyte and fluid balance, not elsewhere classified; E86.0 Dehydration; E55.9 Vitamin D deficiency, unspecified; R00.0 Tachycardia, unspecified; F43.21 Adjustment disorder with depressed mood; F32.89 Other specified depressive episodes; I95.9 Hypotension, unspecified; F94.0 Selective mutism; F06.1 Catatonic disorder due to known physiological condition; M32.9 Systemic lupus erythematosus, unspecified; R00.1 Bradycardia, unspecified; W10.9XXA Fall (on) (from) unspecified stairs and steps, initial encounter; Y95 Nosocomial condition; Y92.019 Unspecified place in single-family (private) house as the place of occurrence of the external cause; Y92.230 Patient room in hospital as the place of occurrence of the external cause; Y93.01 Activity, walking, marching and hiking; Z16.21 Resistance to vancomycin; Z22.322 Carrier or suspected carrier of Methicillin resistant Staphylococcus aureus; Z79.4 Long term (current) use of insulin; Z86.73 Personal history of transient ischemic attack (TIA), and cerebral infarction without residual deficits; Z88.0 Allergy status to penicillin; Z88.2 Allergy status to sulfonamides; Z88.6 Allergy status to analgesic agent; Z91.19 Patient's noncompliance with other medical treatment and regimen
CPT/HCPCS: 27830; 36430; 36556; 36569; 36600; 70450; 70553; 71010; 71020; 71250; 73590; 73610; 74000; 74176; 76000; 76775; 76937; 77001; 80048; 80053; 80069; 80076; 80177; 80185; 80186; 80202; 81001; 82010; 82040; 82140; 82272; 82306; 82308; 82533; 82550; 82565; 82607; 82728; 82746; 82805; 82947; 82948; 83540; 83550; 83605; 83690; 83735; 83880; 83970; 84100; 84134; 84155; 84300; 84443; 84484; 85007; 85014; 85018; 85025; 85027; 85044; 85610; 85730; 86021; 86038; 86160; 86317; 86430; 86592; 86803; 86850; 86900; 86901; 86920; 87040; 87077; 87086; 87186; 87340; 87449; 87493; 87640; 87641; 90935; 93306; 93970; 93971; 94002; 94003; 94150; 94620; 94640; 94664; 95819; 96374; A9579; C1713; C1752; J0131; J0360; J0610; J0690; J0692; J0696; J0744; J1100; J1580; J1610; J1642; J1644; J1650; J1815; J1817; J1885; J1940; J2060; J2250; J2270; J2310; J2370; J2405; J2765; J2930; J3010; J3370; J3475; J3480; J7030; J7040; J7042; J7050; J7070; J7120; J7512; P9016; P9047; Q0169

== ENCOUNTER 2017-02-14 16:56 | Inpatient (IN) | payer MEDICAID ==
[~2017-02-14] VITALS: Ht 157.5 cm; Wt 57.6 kg
[~2017-02-14 16:56] MED LIST changes: +AMLO10 PO; +AMLO5 PO; +BEDSIDE COMMODE1 MI1 EXTERNAL; +CLON.1 PO; -CLON0.1T PO; +ENOX30P SQ; +HYDR-3800 PO; +LACT PO; +LACTTAB8 PO; +LEVA500T20 PO; +METO-309 PO; +METR-1 PO; +NOVOLOGP2 SQ; -NOVOLOGSS SQ; +OXYGENDME NAS.CANULA; +PERC5TAB12 PO; +PRED10 PO; -WALKER WHEELS/F1 MIS; +WALKER/ADULT/FO1 MIS
[2017-02-14 17:05] VITALS: BP 132/82; PULSE 100; RESP 16; TEMP 98.9; O2SAT 93
--- NOTE | 2017-02-14 17:23 | PD ---
HPI Chief Complaint: Bilateral lower extremity edema Time Seen by Provider: 17:14 Travel History International Travel<30 days: No Contact w/Intl Traveler<30days: No History of Present Illness HPI 46yo F with PMH of DM, HTN, CVA with RUE residual deficits, seizures, lupus presents to the ED with c/o bilateral lower extremity swelling since she was discharged from the hospital. Pt was admitted 12/02/16-02/09/17 for closed right tib/fib fracture and had a prolonged hospital course. PFSH Past Medical History Arthritis: Yes Asthma: Yes Autoimmune Disease: Yes (LUPUS) Blood Disorders: Yes Anxiety: No Depression: No Heart Rhythm Problems: No Cancer: No Cardiovascular Problems: Yes (HTN; TAKES CLONADINE) High Cholesterol: Yes Chemotherapy: No Chest Pain: No Congestive Heart Failure: No COPD: No Cerebrovascular Accident: Yes (2013) Diabetes: Yes (TYPE 2; TAKES LANTUS & NOVOLOG) Diminished Hearing: No Endocrine: Yes Gastrointestinal Disorders: Yes Genitourinary: Yes Hypertension: Yes Immune Disorder: Yes Kidney Stones: Yes Musculoskeletal: Yes Neurologic: Yes Psychiatric: No Reproductive: No Respiratory: Yes Radiation Therapy: No Renal Failure: Yes (Stage II) Seizures: Yes Sickle Cell Disease: No Sleep Apnea: No Thyroid Disease: No : 1 Para: 1 Past Surgical History Abdominal Surgery: Yes Cardiac Surgery: No Section: Yes Cholecystectomy: Yes Ear Surgery: No Endocrine Surgery: No Eye Surgery: No Genitourinary Surgery: No Gynecologic Surgery: Yes ( ) Hysterectomy: Yes (PARTIAL) Oral Surgery: No Thoracic Surgery: No Other Surgery: Yes (LEFT FOOT WOUND MECHANICAL DEBRIDEMENT) Social History Alcohol Use: Yes (OCCASIONAL/HOLIDAYS) Tobacco Use: No Substance Use: No Allergies-Medications (Allergen,Severity, Reaction): Coded Allergies: Sulfa (Sulfonamide Antibiotics) (Verified Allergy, Severe, 01/25/17) RASH aspirin (Verified Allergy, Severe, 01/25/17) RASH penicillin G (Verified Allergy, Severe, 01/25/17) banana (Verified Allergy, Intermediate, Hives, 01/25/17) adhesive (Verified Allergy, Unknown, 01/25/17) nitrofurantoin (Verified Allergy, Unknown, 01/25/17) insulin detemir (Verified Adverse Reaction, Severe, Sweats, funny feeling , mood swings, daze, 01/25/17) Reported Meds & Prescriptions Reported Meds & Active Scripts Active Oxygen (O2) Device Liter DESTINI.CANULA CONTINUOUS Oxygen Concentrator Portable Gaseous 2 L/min via Nasal Canula Continuous For 99 months Norvasc (Amlodipine Besylate) 10 Mg Tab 10 Mg PO DAILY 30 Days Hydralazine HCl 50 Mg Tablet 50 Mg PO Q8HR 30 Days Acidophilus/l-Sporogenes (Lactobacillus Acidophilus) 35 Million Cell-25 Million Cell Tab 1 Tab PO TID 30 Days Wheelchair (Device) 1 Mis Mis Ea .ROUTE DIRECTED Prednisone 10 Mg Tab 10 Mg PO BID Lactobacillus Acidophilus 1 Tab Tab 1 Tab PO TIDAC Walker/Adult/Folding (Device) 1 Mis Mis Ea .ROUTE DIRECTED Bedside Commode (Device) 1 Mis Mis Ea EXTERNAL DIRECTED Lovenox Inj (Enoxaparin Sodium) 30 Mg/0.3 Ml Syr 30 Mg SQ Q24H Catapres (Clonidine) 0.1 Mg Tab 0.1 Mg PO Q8HR Norvasc (Amlodipine Besylate) 5 Mg Tab 5 Mg PO DAILY Percocet (Oxycodone-Acetaminophen) 5-325 mg Tab 1 Tab PO Q4H PRN Lantus Inj (Insulin Glargine) 1,000 Unit/10 Ml Vial 10 Units SQ HS Reported Bumetanide 1 Mg Tab 1 Mg PO DAILY Novolog Inj (Insulin Aspart) 1,000 Unit/10 Ml Vial Unknown Dose SQ ACHS Max dose at bedtime ( ) units; sugars less than 70,(0) units; sugars 150-199,(2) units; sugars 200-249,(4) units; sugars 250-299,(7) units; sugars 300-349,(10) units; sugars greater than 349,(12)units Fluoxetine (Fluoxetine HCl) 10 Mg Tab 10 Mg PO DAILY Levetiracetam 500 Mg Tab 500 Mg PO BID Atorvastatin (Atorvastatin Calcium) 80 Mg Tab 80 Mg PO DAILY Review of Systems Except as stated in HPI: all other systems reviewed are Neg Physical Exam Narrative GENERAL: 46yo F not in distress. SKIN: Focused skin assessment warm/dry. HEAD: Atraumatic. Normocephalic. EYES: Pupils equal and round. No scleral icterus. No injection or drainage. ENT: No nasal bleeding or discharge. Mucous membranes pink and moist. NECK: Trachea midline. No JVD. CARDIOVASCULAR: Regular rate and rhythm. No murmur appreciated. RESPIRATORY: No accessory muscle use. Clear to auscultation. Breath sounds equal bilaterally. GASTROINTESTINAL: Abdomen soft, mild distension in suprapubic region. No rebound tenderness or guarding. MUSCULOSKELETAL: No obvious deformities. No clubbing. No cyanosis. +Marked pitting edema up to bilateral thighs. NEUROLOGICAL: Awake and alert. No obvious cranial nerve deficits. Motor grossly within normal limits. Normal speech. PSYCHIATRIC: Appropriate mood and affect; insight and judgment normal. Data Data Last Documented VS Vital Signs Date Time Temp Pulse Resp B/P (MAP) Pulse Ox O2 Delivery O2 Flow Rate FiO2 02/14/17 17:32 94 21 02/14/17 17:05 98.9 100 16 132/82 (99) Orders Orders Complete Blood Count With Diff (02/14/17 17:18) Comprehensive Metabolic Panel (02/14/17 17:18) Insert Temp Sensing Maurer Cath (02/14/17 18:25) Admit Order (Ed Use Only) (02/14/17 18:38) Labs Laboratory Tests Test 02/14/17 17:00 White Blood Count 12.7 TH/MM3 Red Blood Count 3.06 MIL/MM3 Hemoglobin 9.2 GM/DL Hematocrit 28.1 % Mean Corpuscular Volume 91.8 FL Mean Corpuscular Hemoglobin 30.0 PG Mean Corpuscular Hemoglobin Concent 32.7 % Red Cell Distribution Width 16.4 % Platelet Count 155 TH/MM3 Mean Platelet Volume 10.2 FL Neutrophils (%) (Auto) 91.0 % Lymphocytes (%) (Auto) 4.9 % Monocytes (%) (Auto) 3.0 % Eosinophils (%) (Auto) 0.9 % Basophils (%) (Auto) 0.2 % Neutrophils # (Auto) 11.5 TH/MM3 Lymphocytes # (Auto) 0.6 TH/MM3 Monocytes # (Auto) 0.4 TH/MM3 Eosinophils # (Auto) 0.1 TH/MM3 Basophils # (Auto) 0.0 TH/MM3 CBC Comment DIFF FINAL Differential Comment Blood Urea Nitrogen 45 MG/DL Creatinine 1.93 MG/DL Random Glucose 121 MG/DL Total Protein 6.3 GM/DL Albumin 2.4 GM/DL Calcium Level 8.5 MG/DL Alkaline Phosphatase 90 U/L Aspartate Amino Transf (AST/SGOT) 15 U/L Alanine Aminotransferase (ALT/SGPT) 15 U/L Total Bilirubin 0.2 MG/DL Sodium Level 151 MEQ/L Potassium Level 4.3 MEQ/L Chloride Level 118 MEQ/L Carbon Dioxide Level 28.0 MEQ/L Anion Gap 5 MEQ/L Estimat Glomerular Filtration Rate 34 ML/MIN B-Type Natriuretic Peptide 175 PG/ML MDM Medical Decision Making Medical Screen Exam Complete: Yes Emergency Medical Condition: Yes Differential Diagnosis Edema secondary to renal disease vs. liver disease vs. dependent edema Narrative Course 46yo F here with c/o bilateral lower extremity edema after prolonged hospital course. Pt had US that was negative for DVT while in the hospital. Denies any sob. O2 sat 90-92% on RA, pt is suppose to be on 2L NC as needed. Pt is unable to ambulate and states she is alone tonight. She is requesting placement in rehab. I discussed with ED case management who said that she will not be able to place her today. Labs reviewed, leukocytosis at 12.7. H/H 9.2/ 28.1 which is at baseline. Hypernatremic at 151. BUN/creatinine elevated at 45 /1.93. Glucose is mildly elevated at 121. Maurer catheter placed and 2000cc of urine came out. Pt is on bumex. Pt needs a higher level of care and cannot walk or take care of herself. Discussed with Dr. Beal and accepted to his service. Diagnosis Primary Impression: Edema Qualified Codes: R60.9 - Edema, unspecified Admitting Information Admitting Physician Requests: Leticia Drummond DO Feb 14, 2017 17:23
[2017-02-14 17:32] VITALS: O2SAT 94
[2017-02-14 17:49] LABS: AUTOMATED NEUTROPHIL # 11.5 TH/MM3 (1.8-7.7); BASOPHIL % 0.2 % (0.0-2.0); EOSINOPHIL # 0.1 TH/MM3 (0-0.4); EOSINOPHIL % 0.9 % (0.0-4.0); HEMATOCRIT 28.1 % (35.0-46.0); HEMO FLAGS DIFF FINAL; LYMPH % 4.9 % (9.0-44.0); LYMPHOCYTE # 0.6 TH/MM3 (1.0-4.8); MEAN CELL VOLUME 91.8 FL (80.0-100.0); MEAN CORPUSCULAR HGB CONC 32.7 % (32.0-36.0); PLATELET COUNT 155 TH/MM3 (150-450); RED BLOOD COUNT 3.06 MIL/MM3 (4.00-5.30); RED CELL DISTRIBUTION WIDTH 16.4 % (11.6-17.2); WHITE BLOOD COUNT 12.7 TH/MM3 (4.0-11.0)
[2017-02-14 17:57] LABS: ALT (GPT) 15 U/L (10-53); ANION GAP 5 MEQ/L (5-15); AST (GOT) 15 U/L (15-37); BLOOD UREA NITROGEN 45 MG/DL (7-18); CHLORIDE 118 MEQ/L (98-107); GLOMERULAR FILTRATION RATE 34 ML/MIN (>89); POTASSIUM 4.3 MEQ/L (3.5-5.1); SODIUM (NA) 151 MEQ/L (136-145)
[2017-02-14 17:59] LABS: ALKALINE PHOSPHATASE 90 U/L (45-117); TOTAL BILIRUBIN ADULT 0.2 MG/DL (0.2-1.0)
[2017-02-14] MEDS ORDERED: BUME1TAB PO (18:14)
[2017-02-14] MEDS ORDERED: ACETAMINOPHEN 325 MG TAB PO PRN (19:45)
--- NOTE | 2017-02-14 20:23 | HHI.HP ---
HPI Service [facility] Primary Care Physician Andrea Cardoso D.O. Admission Diagnosis Bilateral lower ext edema, noncompliance with medication Diagnoses: (1) Diastolic CHF, acute (2) Hypoalbuminemia (3) DM (diabetes mellitus) type I uncontrolled with renal manifestation (4) Hypertension Chief Complaint: lower extremity swelling and weakness Travel History International Travel<30 Days: No Contact w/Intl Traveler <30 Da: No Traveled to Known Affected Are: No History of Present Illness Written by Elena Henry, acting as scribe for Dr. Jenkins on 02/14/17 at 20:22. Patient states she has "water on my legs" along with lower extremity weakness since her discharge from the hospital on Friday 02/09. She states she never picked up her prescriptions after being discharged from the hospital. She is alert and oriented but a difficult historian as she will not directly answer questions about her care at home and whether she has help at home. She does state that she is supposed to go to a rehabilitation facility. She had a lengthy admission from December 02, 2016 through February 09, 2017 for right tibia and fibula fracture. She was discharged home with home health. 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 Past Surgical History Cholecystectomy Partial hysterectomy Left foot surgery . Reported Medications Reported Meds & Active Scripts Active Oxygen (O2) Device Liter DESTINI.CANULA CONTINUOUS Oxygen Concentrator Portable Gaseous 2 L/min via Nasal Canula Continuous For 99 months Norvasc (Amlodipine Besylate) 10 Mg Tab 10 Mg PO DAILY 30 Days Hydralazine HCl 50 Mg Tablet 50 Mg PO Q8HR 30 Days Acidophilus/l-Sporogenes (Lactobacillus Acidophilus) 35 Million Cell-25 Million Cell Tab 1 Tab PO TID 30 Days Lopressor (Metoprolol Tartrate) 50 Mg Tab 50 Mg PO Q12HR 30 Days Wheelchair (Device) 1 Mis Mis Ea .ROUTE DIRECTED Prednisone 10 Mg Tab 10 Mg PO BID Lactobacillus Acidophilus 1 Tab Tab 1 Tab PO TIDAC Walker/Adult/Folding (Device) 1 Mis Mis Ea .ROUTE DIRECTED Bedside Commode (Device) 1 Mis Mis Ea EXTERNAL DIRECTED Lovenox Inj (Enoxaparin Sodium) 30 Mg/0.3 Ml Syr 30 Mg SQ Q24H Catapres (Clonidine) 0.1 Mg Tab 0.1 Mg PO Q8HR Norvasc (Amlodipine Besylate) 5 Mg Tab 5 Mg PO DAILY Percocet (Oxycodone-Acetaminophen) 5-325 mg Tab 1 Tab PO Q4H PRN Lantus Inj (Insulin Glargine) 1,000 Unit/10 Ml Vial 10 Units SQ HS Reported Bumetanide 1 Mg Tab 1 Mg PO DAILY Novolog Inj (Insulin Aspart) 1,000 Unit/10 Ml Vial Unknown Dose SQ ACHS Max dose at bedtime ( ) units; sugars less than 70,(0) units; sugars 150-199,(2) units; sugars 200-249,(4) units; sugars 250-299,(7) units; sugars 300-349,(10) units; sugars greater than 349,(12)units Fluoxetine (Fluoxetine HCl) 10 Mg Tab 10 Mg PO DAILY Levetiracetam 500 Mg Tab 500 Mg PO BID Atorvastatin (Atorvastatin Calcium) 80 Mg Tab 80 Mg PO DAILY . Allergies: Coded Allergies: Sulfa (Sulfonamide Antibiotics) (Verified Allergy, Severe, 01/25/17) RASH aspirin (Verified Allergy, Severe, 01/25/17) RASH penicillin G (Verified Allergy, Severe, 01/25/17) banana (Verified Allergy, Intermediate, Hives, 01/25/17) adhesive (Verified Allergy, Unknown, 01/25/17) nitrofurantoin (Verified Allergy, Unknown, 01/25/17) insulin detemir (Verified Adverse Reaction, Severe, Sweats, funny feeling , mood swings, daze, 01/25/17) Active Ordered Medications Current Medications Sodium Chloride (NS Flush) 2 ml UNSCH PRN IV FLUSH FLUSH AFTER USING IV ACCESS ; Start 02/14/17 at 19:45 Sodium Chloride (NS Flush) 2 ml BID IV FLUSH ; Start 02/14/17 at 21:00 Acetaminophen (Tylenol) 650 mg Q4H PRN PO TEMP > 100.4; Start 02/14/17 at 19:45 Ondansetron HCl (Zofran Inj) 4 mg Q6H PRN IVP NAUSEA OR VOMITING; Start at 19:45 . Family History Hypertension and diabetes mellitus in family . Social History Tobacco: None Alcohol: Occasional Illicit Drugs: None . Physical Exam Vital Signs Vital Signs Date Time Temp Pulse Resp B/P (MAP) Pulse Ox O2 Delivery O2 Flow Rate FiO2 02/14/17 17:32 94 21 02/14/17 17:05 98.9 100 16 132/82 (99) 93 Physical Exam GENERAL: This is a female patient, in no apparent distress. SKIN: No rashes, ecchymoses or lesions. Cool and dry. HEAD: Atraumatic. Normocephalic. EYES: Pupils equal round and reactive.No injection or drainage. ENT: Nose without bleeding. Airway patent. NECK: Trachea midline. No JVD. CARDIOVASCULAR: slight tachycardic rate and rhythm without murmurs, gallops, or rubs. 3+ lower extremity edema. RESPIRATORY: Clear to auscultation. Breath sounds equal bilaterally. No wheezes , rales, or rhonchi. GASTROINTESTINAL: Abdomen soft, non-tender, nondistended. No guarding. + bowel sounds. MUSCULOSKELETAL: Extremities without clubbing, cyanosis. No calf tenderness. NEUROLOGICAL: Awake and alert. Motor and sensory grossly within normal limits. Normal speech. . Laboratory Laboratory Tests Test 02/14/17 17:00 White Blood Count 12.7 Red Blood Count 3.06 Hemoglobin 9.2 Hematocrit 28.1 Mean Corpuscular Volume 91.8 Mean Corpuscular Hemoglobin 30.0 Mean Corpuscular Hemoglobin Concent 32.7 Red Cell Distribution Width 16.4 Platelet Count 155 Mean Platelet Volume 10.2 Neutrophils (%) (Auto) 91.0 Lymphocytes (%) (Auto) 4.9 Monocytes (%) (Auto) 3.0 Eosinophils (%) (Auto) 0.9 Basophils (%) (Auto) 0.2 Neutrophils # (Auto) 11.5 Lymphocytes # (Auto) 0.6 Monocytes # (Auto) 0.4 Eosinophils # (Auto) 0.1 Basophils # (Auto) 0.0 CBC Comment DIFF FINAL Differential Comment Blood Urea Nitrogen 45 Creatinine 1.93 Random Glucose 121 Total Protein 6.3 Albumin 2.4 Calcium Level 8.5 Alkaline Phosphatase 90 Aspartate Amino Transf (AST/SGOT) 15 Alanine Aminotransferase (ALT/SGPT) 15 Total Bilirubin 0.2 Sodium Level 151 Potassium Level 4.3 Chloride Level 118 Carbon Dioxide Level 28.0 Anion Gap 5 Estimat Glomerular Filtration Rate 34 Result Diagram: 02/14/17169902/14/17 170 An VTE Risk Assessment An VTE Risk Assessment: Mod/High Risk (score >= 2) VTE [facility] Contraindication: Severe LE edema An Risk Assessment Model Point Value = 1 Point Value = 2 Point Value = 3 Point Value = 5 Age 41-60 Minor surgery BMI > 25 kg/m2 Swollen legs Varicose veins or History of unexplained or recurrent spontaneous Oral contraceptives or hormone replacement Sepsis (< 1 month) Serious lung disease, including pneumonia (< 1 month) Abnormal pulmonary function Acute myocardial infarction Congestive heart failure (< 1 month) History of inflammatory bowel disease Medical patient at bed rest Age 61-74 Arthroscopic surgery Major open surgery (> 45 min) Laparoscopic surgery (> 45 min) Malignancy Confined to bed (> 72 hours) Immobilizing plaster cast Central venous access Age >= 75 History of VTE Family history of VTE Factor V Leiden Prothrombin [id number] Lupus anticoagulant Anticardiolipin antibodies Elevated serum homocysteine Heparin-induced thrombocytopenia Other congenital or acquired thrombophilia Stroke (< 1 month) Elective arthroplasty Hip, pelvis, or leg fracture Acute spinal cord injury (< 1 month) Prophylaxis Regimen Total Risk Factor Score Risk Level Prophylaxis Regimen 0-1 Low Early ambulation 2 Moderate Order ONE of the following: *Sequential Compression Device (SCD) *Heparin 5000 units SQ BID 3-4 Higher Order ONE of the following medications: *Heparin 5000 units SQ TID *Enoxaparin/Lovenox 40 mg SQ daily (WT < 150 kg, CrCl > 30 mL/min) *Enoxaparin/Lovenox 30 mg SQ daily (WT < 150 kg, CrCl > 10-29 mL/min) *Enoxaparin/Lovenox 30 mg SQ BID (WT < 150 kg, CrCl > 30 mL/min) AND/OR *Sequential Compression Device (SCD) 5 or more Highest Order ONE of the following medications: *Heparin 5000 units SQ TID (Preferred with Epidurals) *Enoxaparin/Lovenox 40 mg SQ daily (WT < 150 kg, CrCl > 30 mL/min) *Enoxaparin/Lovenox 30 mg SQ daily (WT < 150 kg, CrCl > 10-29 mL/min) *Enoxaparin/Lovenox 30 mg SQ BID (WT < 150 kg, CrCl > 30 mL/min) AND *Sequential Compression Device (SCD) Assessment and Plan Problem List: (1) Diastolic CHF, acute ICD Code: I50.31 - Acute diastolic (congestive) heart failure (2) Hypoalbuminemia ICD Code: E88.09 - Other disorders of plasma-protein metabolism, not elsewhere classified (3) DM (diabetes mellitus) type I uncontrolled with renal manifestation ICD Code: E10.29 - Uncontrolled type 1 diabetes mellitus with renal manifestations; E10.65 - Type 1 diabetes mellitus with hyperglycemia Status: Chronic (4) Hypertension ICD Code: I10 - Hypertension Status: Acute (5) Hypernatremia ICD Code: E87.0 - Hyperosmolality and hypernatremia Assessment and Plan 46 y/o returned to the hospital following lengthy admission 12/02 - 02/09 complaining of lower extremity swelling and weakness. CHF exacerbation, diastolic - Echocardiogram reviewed dated 12/25/16: EF 55 - 60%, impaired left ventricular relaxation, grade 1 diastolic dysfunction - Bumex 1 mg IV - monitor for improvement in peripheral edema - if not, will alternate Albumin and Bumex - monitor I and Os - will change metoprolol to carvedilol - check BNP Hypoalbuminemia - reviewed trends in albumin levels - chronically low - was 1.6 on 02/05 and 2.4 on this admission - monitor albumin levels - consider Albumin as described above Type 2 Diabetes Mellitus - Continue home medications - Accu-Cheks before meals and at bedtime with low-dose NovoLog sliding scale coverage - Hypoglycemia protocol - Monitor trends and blood glucose readings and adjust treatments as indicated Hypertension - Resume home medications - Monitor trends and blood pressure readings and adjust treatments as needed Hypernatremia - limit sodium intake - monitor sodium levels daily Lower extremity weakness - PT consult - case management to assist with discharge DVT prophylaxis - Lovenox 30 mg qday Discussed Condition With patient and RN This note was transcribed by simone [Elena Henry]. I, Dr. Keshav Jenkins personally performed the history, physical exam, and medical decision making; and confirmed the accuracy of the information in the transcribed note. Authenticated by Dr. Keshav Jenkins on 02/14/17 at 20:30. Problem Qualifiers (1) DM (diabetes mellitus) type I uncontrolled with renal manifestation: (2) Hypertension: Qualified Codes: I10 - Essential (primary) hypertension Elena Henry Feb 14, 2017 20:23 Keshav Jenkins MD Feb 17, 2017 07:22
[2017-02-14 21:40] VITALS: BP 168/83; PULSE 106; RESP 18; TEMP 99.2; O2SAT 98
[2017-02-14] MEDS ORDERED: DEXTROSE 50% IN WATER 50 ML VIAL(D50) IV PRN (21:45)
[2017-02-14] MEDS ORDERED: GLUCAGON 1 MG/ML VIAL OTHER PRN (21:45)
[2017-02-14] MEDS: hydrALAZINE HCL 50 MG TAB PO SCH (23:03)
[2017-02-14] MEDS: SODIUM CHLORIDE 0.9% FLUSH 10 ML FLUSH IV FLUSH SCH (23:08)
[2017-02-15] VITALS (10 sets, daily range): BP systolic 108–182; BP diastolic 59–86; PULSE 74–108; RESP 17–18; TEMP 98.1–99.7; O2SAT 92–99
[2017-02-15] MEDS: hydrALAZINE HCL 50 MG TAB PO SCH ×3 (05:44→22:15)
[2017-02-15] MEDS ORDERED: BUMETANIDE INJ 1 MG/4 ML VIAL IV PUSH ONE ×2 (05:45→20:00)
[2017-02-15] MEDS: INSULIN ASPART SUPPLEMENTAL SCALE SQ SCH ×4 (05:54→21:35)
[2017-02-15 07:57] LABS: AUTOMATED NEUTROPHIL # 7.1 TH/MM3 (1.8-7.7); BASOPHIL % 0.5 % (0.0-2.0); EOSINOPHIL # 0.2 TH/MM3 (0-0.4); EOSINOPHIL % 1.8 % (0.0-4.0); HEMATOCRIT 22.5 % (35.0-46.0); HEMO FLAGS DIFF FINAL; LYMPH % 12.1 % (9.0-44.0); LYMPHOCYTE # 1.1 TH/MM3 (1.0-4.8); MEAN CELL VOLUME 92.8 FL (80.0-100.0); MEAN CORPUSCULAR HEMOGLOBIN 30.3 PG (27.0-34.0); MEAN CORPUSCULAR HGB CONC 32.6 % (32.0-36.0); MONO % 4.2 % (0.0-8.0); NEUT % 81.4 % (16.0-70.0); PLATELET COUNT 126 TH/MM3 (150-450); RED BLOOD COUNT 2.43 MIL/MM3 (4.00-5.30); RED CELL DISTRIBUTION WIDTH 16.6 % (11.6-17.2); WHITE BLOOD COUNT 8.8 TH/MM3 (4.0-11.0)
[2017-02-15 08:14] LABS: BICARBONATE 26.1 MEQ/L (21.0-32.0); POTASSIUM 3.9 MEQ/L (3.5-5.1)
[2017-02-15] MEDS: levETIRAcetam 500 MG TAB PO SCH ×2 (09:00→21:14)
[2017-02-15] MEDS: SODIUM CHLORIDE 0.9% FLUSH 10 ML FLUSH IV FLUSH SCH ×2 (09:00→21:15)
[2017-02-15] MEDS: ATORVASTATIN 80 MG TAB PO SCH (09:06)
[2017-02-15] MEDS: CARVEDILOL 6.25 MG TAB PO SCH ×2 (09:06→21:00)
[2017-02-15 12:45] LABS: AUTOMATED NEUTROPHIL # 7.1 TH/MM3 (1.8-7.7); BASOPHIL % 0.3 % (0.0-2.0); EOSINOPHIL # 0.1 TH/MM3 (0-0.4); EOSINOPHIL % 1.6 % (0.0-4.0); HEMATOCRIT 23.3 % (35.0-46.0); HEMO FLAGS DIFF FINAL; MEAN CELL VOLUME 92.8 FL (80.0-100.0); MEAN CORPUSCULAR HEMOGLOBIN 30.4 PG (27.0-34.0); MEAN CORPUSCULAR HGB CONC 32.7 % (32.0-36.0); MONO % 4.8 % (0.0-8.0); NEUT % 81.3 % (16.0-70.0); PLATELET COUNT 125 TH/MM3 (150-450); RED BLOOD COUNT 2.51 MIL/MM3 (4.00-5.30); RED CELL DISTRIBUTION WIDTH 16.1 % (11.6-17.2); WHITE BLOOD COUNT 8.7 TH/MM3 (4.0-11.0)
[2017-02-15 12:48] LABS: INTERNATIONAL NORMALIZED RATIO 1.1 RATIO; PROTHROMBIN TIME - PATIENT 12.1 SEC (9.8-11.6)
[2017-02-15] MEDS ORDERED: predniSONE 10 MG TAB PO ONE (20:15)
[2017-02-15] MEDS ORDERED: INSULIN DETEMIR 100 UNITS/ML VIAL SQ SCH (21:00)
[2017-02-15] MEDS ORDERED: INSULIN GLARGINE 1,000 UNITS/10 ML VIAL SQ SCH (21:00)
[2017-02-15] MEDS: ACETAMINOPHEN/HYDROcodone 325 MG/5 MG TAB PO PRN (21:13)
--- NOTE | 2017-02-15 22:23 | HHI.PR ---
Subjective Remarks Patient seen this morning around 10 AM. She says that I lateral lower extremity edema is slightly improved. She says that at home she was drinking lots of water to help her kidneys. We discussed fluid restrictions.she denies any chest pain or shortness of breath. Objective Vital Signs Date Time Temp Pulse Resp B/P (MAP) Pulse Ox O2 Delivery O2 Flow Rate FiO2 02/15/17 20:00 98.6 108 18 133/71 (91) 92 02/15/17 18:29 92 21 02/15/17 16:00 98.1 104 18 108/59 (75) 92 02/15/17 12:45 99.7 106 18 133/63 (86) 93 02/15/17 12:00 92 21 02/15/17 08:00 98.5 104 18 140/75 (96) 93 02/15/17 04:20 74 02/15/17 04:00 98.6 108 18 175/84 (114) 97 02/15/17 00:00 98.1 108 17 182/86 (118) 99 I/O 02/14/17 02/14/17 02/14/17 02/15/17 02/15/17 02/15/17 07:00 15:00 23:00 07:00 15:00 23:00 Intake Total 720 ml Output Total 500 ml 800 ml 1100 ml Balance -500 ml -800 ml -380 ml Intake Oral 720 ml Output Urine Total 500 ml 800 ml 1100 ml Result Diagram: 02/15/17 1201 02/15/17 0710 Objective Remarks GENERAL: patient lying in bed. Appears comfortable. SKIN: Warm and dry. HEAD: Normocephalic. EYES: No scleral icterus. No injection or drainage. NECK: Supple, trachea midline. No JVD or lymphadenopathy. CARDIOVASCULAR: Regular rate and rhythm without murmurs, gallops, or rubs. RESPIRATORY: Breath sounds equal bilaterally. No accessory muscle use. GASTROINTESTINAL: Abdomen soft, non-tender, nondistended. MUSCULOSKELETAL: No cyanosis. 2+ bilateral lower extremity edema. BACK: Nontender without obvious deformity. No CVA tenderness. A/P Assessment and Plan == 02/15/17. Edema slightly improved. Continue diuresis. Fluid restrictions. Blood pressure slightly low, slight tachycardia. Possible adrenal insufficiency. Start on prednisone. Continue Coreg. Hyperglycemia. Insulin adjusted. Hypernatremia. Sodium 151. Stable. Continue to monitor. 46 y/o returned to the hospital following lengthy admission 12/02 - 02/09 complaining of lower extremity swelling and weakness. //CHF exacerbation, diastolic - Echocardiogram reviewed dated 12/25/16: EF 55 - 60%, impaired left ventricular relaxation, grade 1 diastolic dysfunction - Bumex 1 mg IV - monitor for improvement in peripheral edema - if not, will alternate Albumin and Bumex - monitor I and Os - will change metoprolol to carvedilol - check BNP //Hypoalbuminemia - reviewed trends in albumin levels - chronically low - was 1.6 on 02/05 and 2.4 on this admission - monitor albumin levels - consider Albumin as described above //Type 2 Diabetes Mellitus - Continue home medications - Accu-Cheks before meals and at bedtime with low-dose NovoLog sliding scale coverage - Hypoglycemia protocol - Monitor trends and blood glucose readings and adjust treatments as indicated //Hypertension - Resume home medications - Monitor trends and blood pressure readings and adjust treatments as needed //Hypernatremia - limit sodium intake - monitor sodium levels daily //Lower extremity weakness - PT consult - case management to assist with discharge //DVT prophylaxis - Lovenox 30 mg qday Discharge Planning pending improvement. physical therapy recommends home health versus rehabilitation. Niko Carrillo MD Feb 15, 2017 22:23
[2017-02-16] VITALS (8 sets, daily range): BP systolic 119–137; BP diastolic 60–72; PULSE 94–101; RESP 16–20; TEMP 97–99.5; O2SAT 91–97
[2017-02-16] MEDS: hydrALAZINE HCL 50 MG TAB PO SCH ×3 (07:01→22:55)
[2017-02-16] MEDS: INSULIN ASPART SUPPLEMENTAL SCALE SQ SCH ×4 (07:14→22:55)
[2017-02-16] MEDS: ATORVASTATIN 80 MG TAB PO SCH (09:00)
[2017-02-16] MEDS: SODIUM CHLORIDE 0.9% FLUSH 10 ML FLUSH IV FLUSH SCH ×2 (09:00→22:56)
[2017-02-16] MEDS: predniSONE 10 MG TAB PO SCH (09:00)
[2017-02-16] MEDS: levETIRAcetam 500 MG TAB PO SCH ×2 (09:00→22:55)
[2017-02-16] MEDS: CARVEDILOL 6.25 MG TAB PO SCH ×2 (09:00→22:55)
[2017-02-16 11:06] LABS: AUTOMATED NEUTROPHIL # 7.9 TH/MM3 (1.8-7.7); BASOPHIL % 0.2 % (0.0-2.0); EOSINOPHIL # 0.1 TH/MM3 (0-0.4); EOSINOPHIL % 0.7 % (0.0-4.0); HEMATOCRIT 24.4 % (35.0-46.0); HEMO FLAGS DIFF FINAL; LYMPHOCYTE # 1.1 TH/MM3 (1.0-4.8); MEAN CELL VOLUME 93.3 FL (80.0-100.0); MEAN CORPUSCULAR HEMOGLOBIN 30.3 PG (27.0-34.0); MEAN CORPUSCULAR HGB CONC 32.4 % (32.0-36.0); NEUT % 83.1 % (16.0-70.0); PLATELET COUNT 139 TH/MM3 (150-450); RED BLOOD COUNT 2.62 MIL/MM3 (4.00-5.30); RED CELL DISTRIBUTION WIDTH 16.4 % (11.6-17.2); WHITE BLOOD COUNT 9.6 TH/MM3 (4.0-11.0)
[2017-02-16 11:23] LABS: BICARBONATE 26.7 MEQ/L (21.0-32.0); MAGNESIUM 1.5 MG/DL (1.5-2.5); POTASSIUM 4.2 MEQ/L (3.5-5.1)
[2017-02-16] MEDS ORDERED: ENOXAPARIN SODIUM 30 MG/0.3 ML SYRINGE SQ ONE (14:45)
[2017-02-16] MEDS ORDERED: BUMETANIDE INJ 1 MG/4 ML VIAL IV PUSH ONE (14:45)
[2017-02-16] MEDS ORDERED: INSULIN DETEMIR 100 UNITS/ML VIAL SQ SCH (21:00)
--- NOTE | 2017-02-16 23:57 | HHI.PR ---
Subjective Remarks And seen today around noon. She says she is feeling all right. Denies any chest pain or shortness of breath. Objective Vital Signs Date Time Temp Pulse Resp B/P (MAP) Pulse Ox O2 Delivery O2 Flow Rate FiO2 02/16/17 20:00 97.6 101 18 119/60 (79) 93 02/16/17 16:00 97.0 95 16 126/62 (83) 02/16/17 16:00 94 02/16/17 12:00 98.7 94 16 131/72 (91) 95 02/16/17 10:33 97 02/16/17 08:00 95 02/16/17 08:00 98.1 98 20 131/62 (85) 96 02/16/17 04:00 98.0 101 18 137/65 (89) 91 02/16/17 00:00 99.5 99 17 127/61 (83) 92 I/O 02/16/17 02/16/17 02/16/17 02/17/17 02/17/17 02/17/17 07:00 15:00 23:00 07:00 15:00 23:00 Intake Total 720 ml Output Total 550 ml 500 ml Balance -550 ml 220 ml Intake Oral 720 ml Output Urine Total 550 ml 500 ml Result Diagram: 02/16/17 1036 02/16/17 1036 Objective Remarks GENERAL: patient lying in bed. Appears comfortable. SKIN: Warm and dry. HEAD: Normocephalic. EYES: No scleral icterus. No injection or drainage. NECK: Supple, trachea midline. No JVD or lymphadenopathy. CARDIOVASCULAR: Regular rate and rhythm without murmurs, gallops, or rubs. RESPIRATORY: Breath sounds equal bilaterally. No accessory muscle use. GASTROINTESTINAL: Abdomen soft, non-tender, nondistended. MUSCULOSKELETAL: No cyanosis. 2+ bilateral lower extremity edema, however improved from yesterday.. BACK: Nontender without obvious deformity. No CVA tenderness. A/P Assessment and Plan == 02/16/17. Bilateral lower extremity edema continues improving. Continue diuresis. Continue fluid restrictions. -Hyperglycemia likely exacerbated by prednisone. Discontinue prednisone. Continue long-acting insulin, diabetic diet, insulin sliding scale. Hypernatremia. 144, when corrected, slightly improved from 151 yesterday. Continue to monitor. --Discussed with case supervisor. Discharged to SNF tomorrow if stable. 46 y/o returned to the hospital following lengthy admission 12/02 - 02/09 complaining of lower extremity swelling and weakness. //CHF exacerbation, diastolic - Echocardiogram reviewed dated 12/25/16: EF 55 - 60%, impaired left ventricular relaxation, grade 1 diastolic dysfunction - Bumex 1 mg IV - monitor for improvement in peripheral edema - if not, will alternate Albumin and Bumex - monitor I and Os - will change metoprolol to carvedilol - check BNP //Hypoalbuminemia - reviewed trends in albumin levels - chronically low - was 1.6 on 02/05 and 2.4 on this admission - monitor albumin levels - consider Albumin as described above //Type 2 Diabetes Mellitus - Continue home medications - Accu-Cheks before meals and at bedtime with low-dose NovoLog sliding scale coverage - Hypoglycemia protocol - Monitor trends and blood glucose readings and adjust treatments as indicated //Hypertension - Resume home medications - Monitor trends and blood pressure readings and adjust treatments as needed //Hypernatremia - limit sodium intake - monitor sodium levels daily //Lower extremity weakness - PT consult - case management to assist with discharge //DVT prophylaxis - Lovenox 30 mg qday Discharge Planning discharge to SNF tomorrow if continues improving. Niko Carrillo MD Feb 16, 2017 23:56
[2017-02-17] VITALS (7 sets, daily range): BP systolic 114–157; BP diastolic 57–81; PULSE 94–110; RESP 17–18; TEMP 97.6–98.8; O2SAT 93–96
[2017-02-17] MEDS: hydrALAZINE HCL 50 MG TAB PO SCH ×2 (06:00→13:13)
[2017-02-17] MEDS: INSULIN ASPART SUPPLEMENTAL SCALE SQ SCH ×4 (07:29→20:42)
[2017-02-17] MEDS ORDERED: BUMETANIDE 1 MG TAB PO SCH (09:00)
[2017-02-17] MEDS ORDERED: LANTUS2P SQ (11:05)
[2017-02-17] MEDS: levETIRAcetam 500 MG TAB PO SCH ×2 (11:14→20:28)
[2017-02-17] MEDS: CARVEDILOL 6.25 MG TAB PO SCH ×2 (11:15→20:28)
[2017-02-17] MEDS: ATORVASTATIN 80 MG TAB PO SCH (11:15)
[2017-02-17] MEDS: SODIUM CHLORIDE 0.9% FLUSH 10 ML FLUSH IV FLUSH SCH ×2 (11:15→20:29)
[2017-02-17] MEDS: predniSONE 10 MG TAB PO SCH (11:15)
[2017-02-17] MEDS: ENOXAPARIN SODIUM 30 MG/0.3 ML SYRINGE SQ SCH (13:13)
--- NOTE | 2017-02-17 19:24 | HHI.PR ---
Subjective Remarks Patient seen this morning around 10 AM. Says she feels all right. Denies any chest pain or shortness of breath. Denies any nausea or vomiting. Bilateral lower extremity edema continues to improve Objective Vital Signs Date Time Temp Pulse Resp B/P (MAP) Pulse Ox O2 Delivery O2 Flow Rate FiO2 02/17/17 16:26 98.8 97 18 114/57 (76) 93 02/17/17 16:00 96 02/17/17 12:00 96 02/17/17 12:00 98.6 98 18 129/66 (87) 94 02/17/17 08:00 98.2 95 18 142/72 (95) 93 02/17/17 08:00 94 02/17/17 04:00 98.6 98 17 157/73 (101) 94 02/17/17 00:00 98.0 102 17 131/61 (84) 96 02/16/17 22:55 100 02/16/17 20:00 97.6 101 18 119/60 (79) 93 I/O 02/16/17 02/16/17 02/16/17 02/17/17 02/17/17 02/17/17 07:00 15:00 23:00 07:00 15:00 23:00 Intake Total 720 ml 520 ml Output Total 550 ml 500 ml 500 ml 600 ml 200 ml Balance -550 ml 220 ml -500 ml -80 ml -200 ml Intake Oral 720 ml 520 ml Output Urine Total 550 ml 500 ml 500 ml 600 ml 200 ml Result Diagram: 02/16/17 1036 02/16/17 1036 Objective Remarks GENERAL: patient lying in bed. Appears comfortable. SKIN: Warm and dry. HEAD: Normocephalic. EYES: No scleral icterus. No injection or drainage. NECK: Supple, trachea midline. No JVD. CARDIOVASCULAR: Regular rate and rhythm without murmurs, gallops, or rubs. RESPIRATORY: Breath sounds equal bilaterally. No accessory muscle use. GASTROINTESTINAL: Abdomen soft, non-tender, nondistended. MUSCULOSKELETAL: No cyanosis. 2+ bilateral lower extremity edema, again improved from yesterday.. BACK: Nontender without obvious deformity. No CVA tenderness. A/P Assessment and Plan == 02/17/17. Bilateral lower extremity edema continues improving. Continue diuresis. Increase Bumex to twice daily. Continue fluid restrictions. -Hyperglycemia improved in the 200s on increased dose of long-acting insulin. Continue diabetic diet. Decrease prednisone to 5 mg daily. Discussed with nurse day. Patient was noted to have had regular Sprite yesterday. Advised no outside food or fluids. Hypernatremia. 144 yesterday. Recheck tomorrow. -patient tolerated Maurer removal, voiding spontaneously. --Discussed with pillowcase cleaner again. Working on SNF/rehab discharge. Difficult discharge secondary to her cane. 46 y/o returned to the hospital following lengthy admission 12/02 - 02/09 complaining of lower extremity swelling and weakness. //CHF exacerbation, diastolic - Echocardiogram reviewed dated 12/25/16: EF 55 - 60%, impaired left ventricular relaxation, grade 1 diastolic dysfunction - Bumex 1 mg IV - monitor for improvement in peripheral edema - if not, will alternate Albumin and Bumex - monitor I and Os - will change metoprolol to carvedilol - check BNP //Hypoalbuminemia - reviewed trends in albumin levels - chronically low - was 1.6 on 02/05 and 2.4 on this admission - monitor albumin levels - consider Albumin as described above //Type 2 Diabetes Mellitus - Continue home medications - Accu-Cheks before meals and at bedtime with low-dose NovoLog sliding scale coverage - Hypoglycemia protocol - Monitor trends and blood glucose readings and adjust treatments as indicated //Hypertension - Resume home medications - Monitor trends and blood pressure readings and adjust treatments as needed //Hypernatremia - limit sodium intake - monitor sodium levels daily //Lower extremity weakness - PT consult - case management to assist with discharge //DVT prophylaxis - Lovenox 30 mg qday Discharge Planning recent right tibia fibula fracture.needs aggressive physical therapy and motivation.discharge to SNF or rehabilitation.difficult discharge secondary to her cane. -appreciate physical therapy assistance Appreciate case management assistance. Niko Carrillo MD Feb 17, 2017 19:24
[2017-02-17] MEDS ORDERED: MAGNESIUM HYDROXIDE SUSP 30 ML CUP PO ONE (19:30)
[2017-02-17] MEDS ORDERED: DOCUSATE SODIUM 50 MG/SENNA 8.6 MG TAB PO ONE (19:30)
[2017-02-17] MEDS: BUMETANIDE 1 MG TAB PO SCH (20:29)
[2017-02-17] MEDS ORDERED: INSULIN GLARGINE 1,000 UNITS/10 ML VIAL SQ SCH (21:00)
[2017-02-18] VITALS (8 sets, daily range): BP systolic 115–162; BP diastolic 65–95; PULSE 86–102; RESP 18; TEMP 96.2–98.5; O2SAT 95–97
[2017-02-18] MEDS: hydrALAZINE HCL 50 MG TAB PO SCH ×4 (02:18→23:06)
[2017-02-18] MEDS: INSULIN ASPART SUPPLEMENTAL SCALE SQ SCH ×4 (06:35→23:10)
[2017-02-18] MEDS: ATORVASTATIN 80 MG TAB PO SCH (09:55)
[2017-02-18] MEDS: CARVEDILOL 6.25 MG TAB PO SCH ×2 (09:55→23:06)
[2017-02-18] MEDS: predniSONE 5 MG TAB PO SCH (09:56)
[2017-02-18] MEDS: SODIUM CHLORIDE 0.9% FLUSH 10 ML FLUSH IV FLUSH SCH ×2 (09:56→23:06)
[2017-02-18] MEDS: levETIRAcetam 500 MG TAB PO SCH ×2 (09:56→23:14)
[2017-02-18] MEDS: BUMETANIDE 1 MG TAB PO SCH ×2 (09:58→18:02)
[2017-02-18] MEDS: ENOXAPARIN SODIUM 30 MG/0.3 ML SYRINGE SQ SCH (13:58)
[2017-02-18 14:22] LABS: AUTOMATED NEUTROPHIL # 5.2 TH/MM3 (1.8-7.7); BASOPHIL % 0.5 % (0.0-2.0); EOSINOPHIL # 0.2 TH/MM3 (0-0.4); EOSINOPHIL % 2.6 % (0.0-4.0); HEMATOCRIT 26.3 % (35.0-46.0); LYMPH % 16.3 % (9.0-44.0); LYMPHOCYTE # 1.2 TH/MM3 (1.0-4.8); MEAN CELL VOLUME 92.6 FL (80.0-100.0); MEAN CORPUSCULAR HEMOGLOBIN 29.8 PG (27.0-34.0); MEAN CORPUSCULAR HGB CONC 32.2 % (32.0-36.0); MONO % 7.9 % (0.0-8.0); NEUT % 72.7 % (16.0-70.0); PLATELET COUNT 198 TH/MM3 (150-450); RED BLOOD COUNT 2.84 MIL/MM3 (4.00-5.30); RED CELL DISTRIBUTION WIDTH 16.3 % (11.6-17.2); WHITE BLOOD COUNT 7.1 TH/MM3 (4.0-11.0)
[2017-02-18 14:28] LABS: HEMO FLAGS AUTO DIFF
[2017-02-18 14:55] LABS: MAGNESIUM 1.5 MG/DL (1.5-2.5); POTASSIUM 4.2 MEQ/L (3.5-5.1)
[2017-02-18 15:05] LABS: PLATELET ESTIMATE SMEAR NORMAL (NORMAL); PLATELET MORPHOLOGY ENLARGED (NORMAL); SCAN/DIFF AUTO DIFF CONFIRMED
--- NOTE | 2017-02-18 21:19 | HHI.PR ---
Subjective Remarks Patient seen this morning around 11 AM. Says she is feeling all right. Denies any chest or shortness breath. Bilateral lower extremity edema continues improving. Objective Vital Signs Date Time Temp Pulse Resp B/P (MAP) Pulse Ox O2 Delivery O2 Flow Rate FiO2 02/18/17 16:00 97.9 97 18 136/65 (88) 95 02/18/17 12:00 97.1 95 18 115/68 (84) 96 02/18/17 08:00 96.2 99 18 135/73 (93) 95 02/18/17 05:37 98.4 102 18 129/95 (106) 95 02/18/17 03:28 100 02/18/17 00:00 98.5 101 18 162/72 (102) 97 I/O 02/17/17 02/17/17 02/17/17 02/18/17 02/18/17 02/18/17 07:00 15:00 23:00 07:00 15:00 23:00 Intake Total 520 ml 620 ml Output Total 500 ml 600 ml 200 ml Balance -500 ml -80 ml -200 ml 620 ml Intake Oral 520 ml 620 ml Output Urine Total 500 ml 600 ml 200 ml # Voids 1 2 1 1 # Bowel Movements 0 2 1 1 Result Diagram: 02/18/17 1332 02/18/17 1332 Objective Remarks GENERAL: patient lying in bed. Appears comfortable. SKIN: Warm and dry. HEAD: Normocephalic. EYES: No scleral icterus. No injection or drainage. NECK: Supple, trachea midline. No JVD. CARDIOVASCULAR: Regular rate and rhythm without murmurs, gallops, or rubs. RESPIRATORY: Breath sounds equal bilaterally. No accessory muscle use. GASTROINTESTINAL: Abdomen soft, non-tender, nondistended. MUSCULOSKELETAL: No cyanosis. 2+ bilateral lower extremity edema, continues improving. BACK: Nontender without obvious deformity. No CVA tenderness. A/P Assessment and Plan == 02/18/17. -Continue diuresis. Creatinine 2.0 around baseline. -Hyperglycemia and 300s. Reports from nursing outpatient drinking regular sodas brought in from outside. Advised against outside food again. Increase Lantus to 20 units at night. -web production manager working on discharge. 46 y/o returned to the hospital following lengthy admission 12/02 - 02/09 complaining of lower extremity swelling and weakness. //CHF exacerbation, diastolic - Echocardiogram reviewed dated 12/25/16: EF 55 - 60%, impaired left ventricular relaxation, grade 1 diastolic dysfunction - Bumex 1 mg IV - monitor for improvement in peripheral edema - if not, will alternate Albumin and Bumex - monitor I and Os - will change metoprolol to carvedilol - check BNP //Hypoalbuminemia - reviewed trends in albumin levels - chronically low - was 1.6 on 02/05 and 2.4 on this admission - monitor albumin levels - consider Albumin as described above //Type 2 Diabetes Mellitus - Continue home medications - Accu-Cheks before meals and at bedtime with low-dose NovoLog sliding scale coverage - Hypoglycemia protocol - Monitor trends and blood glucose readings and adjust treatments as indicated //Hypertension - Resume home medications - Monitor trends and blood pressure readings and adjust treatments as needed //Hypernatremia - limit sodium intake - monitor sodium levels daily //Lower extremity weakness - PT consult - case management to assist with discharge //DVT prophylaxis - Lovenox 30 mg qday Discharge Planning recent right tibia fibula fracture.needs aggressive physical therapy and motivation.discharge to SNF or rehabilitation.difficult discharge secondary to her cane. -appreciate physical therapy assistance Appreciate case management assistance. Niko Carrillo MD Feb 18, 2017 21:19
[2017-02-19 01:04] VITALS: BP 120/115; PULSE 96; RESP 18; TEMP 97.9; O2SAT 96
[2017-02-19 05:31] VITALS: BP 124/67; PULSE 95; RESP 19; TEMP 97.8; O2SAT 97
[2017-02-19] MEDS: hydrALAZINE HCL 50 MG TAB PO SCH ×3 (06:45→23:16)
[2017-02-19] MEDS: INSULIN ASPART SUPPLEMENTAL SCALE SQ SCH ×4 (06:48→23:19)
[2017-02-19 07:30] VITALS: BP 140/72; PULSE 100; RESP 20; TEMP 97.1; O2SAT 92
[2017-02-19] MEDS: ATORVASTATIN 80 MG TAB PO SCH (08:41)
[2017-02-19] MEDS: CARVEDILOL 6.25 MG TAB PO SCH ×2 (08:42→23:16)
[2017-02-19] MEDS: levETIRAcetam 500 MG TAB PO SCH ×2 (08:42→23:16)
[2017-02-19] MEDS: predniSONE 5 MG TAB PO SCH (08:43)
[2017-02-19] MEDS: BUMETANIDE 1 MG TAB PO SCH ×2 (08:43→16:38)
[2017-02-19] MEDS: SODIUM CHLORIDE 0.9% FLUSH 10 ML FLUSH IV FLUSH SCH ×3 (08:44→23:16)
[2017-02-19 11:50] VITALS: BP 125/58; PULSE 111; RESP 20; TEMP 98.7; O2SAT 93
[2017-02-19 14:36] LABS: C. DIFF EPI 027 PRESUMPTIVE NEGATIVE (NEGATIVE)
[2017-02-19 15:50] VITALS: BP 121/63; PULSE 104; RESP 20; TEMP 97.7; O2SAT 98
[2017-02-19] MEDS: ENOXAPARIN SODIUM 30 MG/0.3 ML SYRINGE SQ SCH (16:38)
[2017-02-19] MEDS: VANCOMYCIN 500 MG VIAL (FOR ORAL USE ONLY) PO SCH ×2 (16:38→23:16)
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
[2017-02-19 20:00] VITALS: BP 114/59; PULSE 99; RESP 18; TEMP 99.5; O2SAT 96
[2017-02-19] MEDS: INSULIN GLARGINE 1,000 UNITS/10 ML VIAL SQ SCH (21:00)
[2017-02-19] MEDS ORDERED: CHOLECALCIFEROL (VIT D3) 5000 UNIT CAP PO ONE (21:00)
[2017-02-19] MEDS ORDERED: INSULIN GLARGINE 1,000 UNITS/10 ML VIAL SQ SCH (21:30)
[2017-02-20] VITALS (8 sets, daily range): BP systolic 111–132; BP diastolic 60–69; PULSE 90–99; RESP 16–20; TEMP 97–99.4; O2SAT 92–99
[2017-02-20] MEDS: INSULIN ASPART SUPPLEMENTAL SCALE SQ SCH ×4 (06:19→20:03)
[2017-02-20] MEDS: hydrALAZINE HCL 50 MG TAB PO SCH ×3 (06:20→19:57)
[2017-02-20] MEDS: SODIUM CHLORIDE 0.9% FLUSH 10 ML FLUSH IV FLUSH SCH ×2 (09:00→20:04)
[2017-02-20] MEDS: VANCOMYCIN 500 MG VIAL (FOR ORAL USE ONLY) PO SCH ×4 (09:00→20:00)
[2017-02-20 09:09] LABS: AUTOMATED NEUTROPHIL # 4.5 TH/MM3 (1.8-7.7); BASOPHIL # 0.1 TH/MM3 (0-0.2); BASOPHIL % 0.7 % (0.0-2.0); EOSINOPHIL # 0.2 TH/MM3 (0-0.4); EOSINOPHIL % 2.5 % (0.0-4.0); HEMATOCRIT 24.9 % (35.0-46.0); LYMPH % 22.5 % (9.0-44.0); LYMPHOCYTE # 1.6 TH/MM3 (1.0-4.8); MEAN CELL VOLUME 91.8 FL (80.0-100.0); MEAN CORPUSCULAR HEMOGLOBIN 30.6 PG (27.0-34.0); MEAN CORPUSCULAR HGB CONC 33.3 % (32.0-36.0); MONO % 9.3 % (0.0-8.0); PLATELET COUNT 201 TH/MM3 (150-450); RED BLOOD COUNT 2.71 MIL/MM3 (4.00-5.30); RED CELL DISTRIBUTION WIDTH 15.8 % (11.6-17.2); WHITE BLOOD COUNT 6.9 TH/MM3 (4.0-11.0)
[2017-02-20 09:12] LABS: HEMO FLAGS AUTO DIFF
[2017-02-20 09:21] LABS: BICARBONATE 26.7 MEQ/L (21.0-32.0); MAGNESIUM 1.8 MG/DL (1.5-2.5); POTASSIUM 3.9 MEQ/L (3.5-5.1)
[2017-02-20] MEDS: CHOLECALCIFEROL (VIT D3) 5000 UNIT CAP PO SCH (10:12)
[2017-02-20] MEDS: BUMETANIDE 1 MG TAB PO SCH ×2 (10:12→18:00)
[2017-02-20] MEDS: levETIRAcetam 500 MG TAB PO SCH ×2 (10:12→19:57)
[2017-02-20] MEDS: CARVEDILOL 6.25 MG TAB PO SCH ×2 (10:12→19:57)
[2017-02-20] MEDS: ATORVASTATIN 80 MG TAB PO SCH (10:12)
[2017-02-20] MEDS: predniSONE 5 MG TAB PO SCH (10:13)
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
[2017-02-20 13:51] LABS: EOSINOPHILS 1 % (0-4); MYELOCYTES 2 % (0-0); NEUTROPHIL # MANUAL DIFF 5.2 TH/MM3 (1.8-7.7); POLYS (SEG NEUTROPHILS) 74 % (16-70); WBC DIFF SAMPLE 100
[2017-02-20 13:52] LABS: PLATELET ESTIMATE SMEAR NORMAL (NORMAL); PLATELET MORPHOLOGY ENLARGED (NORMAL); SCAN/DIFF FINAL DIFF MANUAL
[2017-02-20] MEDS ORDERED: BUMETANIDE INJ 1 MG/4 ML VIAL IV PUSH ONE (16:00)
[2017-02-20] MEDS ORDERED: ALBUMIN HUMAN 25% 12.5 GM/50 ML BAGP IV ONE (16:00)
[2017-02-20] MEDS: ENOXAPARIN SODIUM 30 MG/0.3 ML SYRINGE SQ SCH (18:12)
[2017-02-20] MEDS: INSULIN GLARGINE 1,000 UNITS/10 ML VIAL SQ SCH (20:03)
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
[2017-02-20] MEDS: ACETAMINOPHEN/HYDROcodone 325 MG/5 MG TAB PO PRN (22:28)
[2017-02-21] VITALS (13 sets, daily range): BP systolic 116–130; BP diastolic 56–67; PULSE 81–105; RESP 16–20; TEMP 96.9–99.4; O2SAT 80–97
[2017-02-21] MEDS: hydrALAZINE HCL 50 MG TAB PO SCH ×2 (05:46→14:37)
[2017-02-21] MEDS: INSULIN ASPART SUPPLEMENTAL SCALE SQ SCH ×4 (05:47→21:00)
[2017-02-21] MEDS: ACETAMINOPHEN/HYDROcodone 325 MG/5 MG TAB PO PRN ×2 (05:47→23:11)
[2017-02-21] MEDS: ATORVASTATIN 80 MG TAB PO SCH (09:14)
[2017-02-21] MEDS: VANCOMYCIN 500 MG VIAL (FOR ORAL USE ONLY) PO SCH ×4 (09:14→22:18)
[2017-02-21] MEDS: levETIRAcetam 500 MG TAB PO SCH ×2 (09:14→22:21)
[2017-02-21] MEDS: CHOLECALCIFEROL (VIT D3) 5000 UNIT CAP PO SCH (09:14)
[2017-02-21] MEDS: SODIUM CHLORIDE 0.9% FLUSH 10 ML FLUSH IV FLUSH SCH ×2 (09:15→22:21)
[2017-02-21] MEDS: CARVEDILOL 6.25 MG TAB PO SCH ×2 (09:15→22:20)
[2017-02-21] MEDS: predniSONE 5 MG TAB PO SCH (09:15)
[2017-02-21] MEDS: BUMETANIDE 1 MG TAB PO SCH ×2 (09:17→17:37)
[2017-02-21 09:37] LABS: AUTOMATED NEUTROPHIL # 4.3 TH/MM3 (1.8-7.7); BASOPHIL % 0.5 % (0.0-2.0); EOSINOPHIL # 0.2 TH/MM3 (0-0.4); EOSINOPHIL % 2.3 % (0.0-4.0); HEMATOCRIT 23.8 % (35.0-46.0); HEMO FLAGS DIFF FINAL; LYMPH % 24.3 % (9.0-44.0); LYMPHOCYTE # 1.6 TH/MM3 (1.0-4.8); MEAN CELL VOLUME 92.9 FL (80.0-100.0); MEAN CORPUSCULAR HEMOGLOBIN 30.4 PG (27.0-34.0); MEAN CORPUSCULAR HGB CONC 32.8 % (32.0-36.0); MONO % 10.1 % (0.0-8.0); NEUT % 62.8 % (16.0-70.0); PLATELET COUNT 188 TH/MM3 (150-450); RED BLOOD COUNT 2.57 MIL/MM3 (4.00-5.30); RED CELL DISTRIBUTION WIDTH 16.1 % (11.6-17.2); WHITE BLOOD COUNT 6.8 TH/MM3 (4.0-11.0)
[2017-02-21 09:55] LABS: BICARBONATE 26.2 MEQ/L (21.0-32.0); MAGNESIUM 1.9 MG/DL (1.5-2.5); POTASSIUM 4.1 MEQ/L (3.5-5.1)
[2017-02-21] MEDS: ENOXAPARIN SODIUM 30 MG/0.3 ML SYRINGE SQ SCH (14:37)
[2017-02-21] MEDS ORDERED: CHOLECALCIFEROL (VIT D3) 5000 UNIT CAP PO ONE (17:45)
[2017-02-21] MEDS ORDERED: BUMETANIDE INJ 1 MG/4 ML VIAL IV PUSH ONE (17:45)
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
[2017-02-21] MEDS: INSULIN GLARGINE 1,000 UNITS/10 ML VIAL SQ SCH (21:00)
[2017-02-21] MEDS: hydrALAZINE HCL 25 MG TAB PO SCH (23:08)
[2017-02-22] VITALS (14 sets, daily range): BP systolic 103–133; BP diastolic 52–66; PULSE 84–102; RESP 16; TEMP 99–99.8; O2SAT 82–98
[2017-02-22] MEDS: INSULIN ASPART SUPPLEMENTAL SCALE SQ SCH ×4 (06:10→20:07)
[2017-02-22] MEDS: hydrALAZINE HCL 25 MG TAB PO SCH ×3 (06:13→21:37)
[2017-02-22] MEDS ORDERED: DEXTROSE 50% IN WATER 50 ML SYRINGE ONE (06:42)
[2017-02-22] MEDS: predniSONE 5 MG TAB PO SCH (09:15)
[2017-02-22] MEDS: ATORVASTATIN 80 MG TAB PO SCH (09:15)
[2017-02-22] MEDS: VANCOMYCIN 500 MG VIAL (FOR ORAL USE ONLY) PO SCH ×4 (09:15→20:07)
[2017-02-22] MEDS: CARVEDILOL 6.25 MG TAB PO SCH ×2 (09:15→20:07)
[2017-02-22] MEDS: levETIRAcetam 500 MG TAB PO SCH ×2 (09:15→20:07)
[2017-02-22] MEDS: CHOLECALCIFEROL (VIT D3) 5000 UNIT CAP PO SCH (09:15)
[2017-02-22] MEDS: ISOSORBIDE DINITRATE 40 MG SUSTAINED RELEASE TAB PO SCH (09:16)
[2017-02-22] MEDS: CHLOROTHIAZIDE 250 MG TAB PO SCH (09:16)
[2017-02-22] MEDS: SODIUM CHLORIDE 0.9% FLUSH 10 ML FLUSH IV FLUSH SCH ×2 (09:16→19:44)
[2017-02-22] MEDS: BUMETANIDE 1 MG TAB PO SCH ×2 (09:18→17:51)
[2017-02-22] MEDS ORDERED: BUMETANIDE INJ 1 MG/4 ML VIAL IV PUSH ONE (10:30)
[2017-02-22] MEDS ORDERED: ALBUMIN HUMAN 25% 12.5 GM/50 ML BAGP IV ONE (10:30)
[2017-02-22 11:06] LABS: AUTOMATED NEUTROPHIL # 6.1 TH/MM3 (1.8-7.7); BASOPHIL % 0.5 % (0.0-2.0); EOSINOPHIL # 0.1 TH/MM3 (0-0.4); HEMATOCRIT 23.2 % (35.0-46.0); HEMO FLAGS DIFF FINAL; LYMPH % 16.9 % (9.0-44.0); LYMPHOCYTE # 1.5 TH/MM3 (1.0-4.8); MEAN CELL VOLUME 92.7 FL (80.0-100.0); MEAN CORPUSCULAR HEMOGLOBIN 29.9 PG (27.0-34.0); MEAN CORPUSCULAR HGB CONC 32.3 % (32.0-36.0); MONO % 10.7 % (0.0-8.0); NEUT % 70.9 % (16.0-70.0); PLATELET COUNT 182 TH/MM3 (150-450); RED CELL DISTRIBUTION WIDTH 15.9 % (11.6-17.2); WHITE BLOOD COUNT 8.6 TH/MM3 (4.0-11.0)
[2017-02-22 11:27] LABS: BICARBONATE 27.9 MEQ/L (21.0-32.0); MAGNESIUM 1.8 MG/DL (1.5-2.5); POTASSIUM 4.1 MEQ/L (3.5-5.1)
[2017-02-22] MEDS: DRONABINOL 5 MG CAP PO SCH ×2 (13:19→17:50)
[2017-02-22] MEDS: ENOXAPARIN SODIUM 30 MG/0.3 ML SYRINGE SQ SCH (13:19)
[2017-02-22 16:35] LABS: RETIC % 3.4 % (0.4-3.0); REVIEW FLAG FINAL
[2017-02-22 16:55] LABS: WESTERGREN SEDIMENTATION RATE 65 mm/hr (0-20)
[2017-02-22 16:58] LABS: INDIRECT BILIRUBIN 0.2 MG/DL (0.0-0.8); TOTAL BILIRUBIN ADULT 0.3 MG/DL (0.2-1.0)
[2017-02-22] MEDS: ALBUMIN HUMAN 25% 12.5 GM/50 ML BAGP IV SCH (19:44)
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
[2017-02-22] MEDS: SODIUM CHLORIDE 0.9% FLUSH 10 ML FLUSH IV FLUSH PRN (20:44)
[2017-02-22] MEDS: INSULIN GLARGINE 1,000 UNITS/10 ML VIAL SQ SCH (21:00)
[2017-02-23] VITALS (9 sets, daily range): BP systolic 119–157; BP diastolic 59–75; PULSE 86–105; RESP 16–18; TEMP 99–100.5; O2SAT 88–99
[2017-02-23 03:53] LABS: BACTERIA, URINE OCC /hpf; BLOOD, URINE NEG (NEG); GLUCOSE,URINE NEG (NEG); KETONE, URINE NEG (NEG); NITRITE,URINE NEG (NEG); PH, URINE 5.5 (5.0-8.5); SQUAMOUS EPITHELIAL CELL URINE 2 /hpf (0-5); URINE COLOR YELLOW (YELLW/STRAW)
[2017-02-23 03:56] LABS: COMMENT (UR) CULTURE INDICATED; CULTURE IF INDICATED CULTURE INDICATED
[2017-02-23] MEDS: hydrALAZINE HCL 25 MG TAB PO SCH ×3 (05:50→21:55)
[2017-02-23] MEDS: INSULIN ASPART SUPPLEMENTAL SCALE SQ SCH ×5 (07:00→21:00)
[2017-02-23] MEDS ORDERED: ALUMINUM/MAGNESIUM/SIMETH 30 ML CUP PO PRN (08:30)
[2017-02-23] MEDS: ALBUMIN HUMAN 25% 12.5 GM/50 ML BAGP IV SCH ×2 (08:32→21:56)
[2017-02-23] MEDS: VANCOMYCIN 500 MG VIAL (FOR ORAL USE ONLY) PO SCH ×4 (08:33→21:56)
[2017-02-23] MEDS: ATORVASTATIN 80 MG TAB PO SCH (08:33)
[2017-02-23] MEDS: ISOSORBIDE DINITRATE 40 MG SUSTAINED RELEASE TAB PO SCH (08:34)
[2017-02-23] MEDS: predniSONE 5 MG TAB PO SCH (08:34)
[2017-02-23] MEDS: CHOLECALCIFEROL (VIT D3) 5000 UNIT CAP PO SCH (08:34)
[2017-02-23] MEDS: CHLOROTHIAZIDE 250 MG TAB PO SCH (08:34)
[2017-02-23] MEDS: levETIRAcetam 500 MG TAB PO SCH ×2 (08:34→21:54)
[2017-02-23] MEDS: CARVEDILOL 6.25 MG TAB PO SCH ×2 (08:34→21:54)
[2017-02-23] MEDS ORDERED: DEXTROSE 50% IN WATER 50 ML SYRINGE ONE (08:48)
[2017-02-23] MEDS: ACETAMINOPHEN/HYDROcodone 325 MG/5 MG TAB PO PRN ×2 (08:53→18:12)
[2017-02-23] MEDS ORDERED: HYDROmorphone HCL PF 0.5 MG/0.5 ML SYRINGE IV PUSH ONE (09:15)
[2017-02-23] MEDS ORDERED: MORPHINE SULFATE 15 MG CONTROLLED RELEASE TAB PO ONE (10:00)
--- NOTE | 2017-02-23 10:50 | HHI.PR ---
Subjective Remarks Patient complains of lack of pain control today. She also says her bilateral lower extremity swelling is improving but very slowly. No reports of diarrhea. No nausea or vomiting. Objective Vital Signs Date Time Temp Pulse Resp B/P (MAP) Pulse Ox O2 Delivery O2 Flow Rate FiO2 02/23/17 08:00 99.0 102 16 133/75 (94) 99 02/23/17 04:30 99.1 103 18 157/74 (101) 96 02/23/17 00:40 95 02/23/17 00:30 100.5 90 17 131/59 (83) 88 02/23/17 00:04 105 02/22/17 21:33 95 103/54 (70) 02/22/17 20:04 101 02/22/17 20:00 99.8 102 16 133/60 (84) 94 02/22/17 16:07 100 02/22/17 16:00 99.5 102 16 118/57 (77) 91 02/22/17 12:20 95 02/22/17 12:00 99.1 95 16 108/55 (72) 95 I/O 02/22/17 02/22/17 02/22/17 02/23/17 02/23/17 02/23/17 07:00 15:00 23:00 07:00 15:00 23:00 Intake Total 50 ml 360 ml Output Total 300 ml 400 ml Balance -250 ml -40 ml Intake Oral 360 ml IV Total 50 ml Output Urine Total 300 ml 400 ml # Voids 1 Result Diagram: 02/22/1741 02/22/17 0941 Objective Remarks GENERAL: NAD, A&Ox3 HEAD: Normocephalic. NECK: Supple, trachea midline. No lymphadenopathy. EYES: No scleral icterus. No injection or drainage. CARDIOVASCULAR: Regular rate and rhythm without murmurs, gallops, or rubs. RESPIRATORY: Breath sounds equal bilaterally. No accessory muscle use. GASTROINTESTINAL: Abdomen soft, non-tender, nondistended. MUSCULOSKELETAL: No cyanosis. Bilateral lower extremity swelling. SKIN: Warm and dry. NEURO: No focal neurological deficitis. A/P Problem List: (1) Lupus ICD Code: M32.9 - Systemic lupus erythematosus Status: Chronic (2) Hypertension ICD Code: I10 - Hypertension Status: Acute (3) Insulin dependent diabetes mellitus ICD Code: E11.9 - Insulin dependent diabetes mellitus; Z79.4 - alf ( current) use of insulin Status: Acute (4) Diabetic neuropathy ICD Code: E11.40 - Diabetic neuropathy Status: Acute (5) C. difficile diarrhea ICD Code: A04.7 - Enterocolitis due to Clostridium difficile (6) REGAN (acute kidney injury) ICD Code: N17.9 - Acute kidney failure, unspecified Status: Acute Assessment and Plan Assessment and Plan 46-year-old female admitted secondary to recurrence of C. difficile and bilateral lower extremity edema Recurrent C. difficile colitis Continue by mouth vancomycin No diarrhea reported today Follow clinically Urinary tract infection Rocephin Follow cultures Probiotics Bilateral lower extremity edema Nephrotic syndrome Protein malnutrition/wasting Continue albumin and diuresis Nephrology following Diabetes mellitus type 2 Follow blood sugars Insulin sliding scale Diabetic diet History of lupus Autoimmunity Anemia of chronic disease Follow CBC Diastolic CHF Follow clinically Contributory to difficulty with diuresis Continue carvedilol Hypertension No change in baseline blood pressure treatments Follow blood pressures Lower extremity weakness Continue physical therapy DVT prophylaxis Lovenox Discharge planning Will likely need SNF discharge Problem Qualifiers (1) Hypertension: Qualified Codes: I10 - Essential (primary) hypertension Umesh Pandya MD Feb 23, 2017 10:50
--- NOTE | 2017-02-23 12:28 | PD.CONS ---
HPI Service Nephrology Consult Requested By Reason for Consult REGAN on CKD, edema Primary Care Physician Andrea Cardoso D.O. History of Present Illness This is a 46 y/o AAF. She had prolonged hospital stay for tib/fib fracture with the admission from 12/02, discharged 02/09. She was home less than one week. Came back to ER for lower extremity edema. She did have home health ordered but apparently was unable to get out of bed or even get to the bathroom. Today she looks as if she has lost weight, is shaky, and has active C Diff for which she has diarrhea and is on oral antibiotics. PMH of lupus, HTN, DM, CKD. Her baseline creatinine varies but ranges from 1.8-2.2, GFR 28-32. Today her renal function is at baseline. Shortly after admission her creatinine was 1.77, is 2.18 today. She has been receiving multiple doses of IV Bumex since admission. Her weight is up 7 kg since admission. She is febrile and nonoliguric. Na is 148. She is anemia with Hb of 7.5, albumin 2.8. We were consulted for renal management. (Eva Marcelo) Review of Systems Constitutional: COMPLAINS OF: Fatigue, Weight gain, Weight loss Respiratory: DENIES: Shortness of breath Cardiovascular: COMPLAINS OF: Lower Extremity Edema, DENIES: Chest pain Gastrointestinal: COMPLAINS OF: Diarrhea, DENIES: Abdominal pain Neurologic: COMPLAINS OF: Tremor (Eva Marcelo) Past Family Social History Allergies: Coded Allergies: Sulfa (Sulfonamide Antibiotics) (Verified Allergy, Severe, 01/25/17) RASH aspirin (Verified Allergy, Severe, 01/25/17) RASH penicillin G (Verified Allergy, Severe, 01/25/17) banana (Verified Allergy, Intermediate, Hives, 01/25/17) adhesive (Verified Allergy, Unknown, 01/25/17) nitrofurantoin (Verified Allergy, Unknown, 01/25/17) insulin detemir (Verified Adverse Reaction, Severe, Sweats, funny feeling , mood swings, daze, 01/25/17) Past Medical History CKD 3-4, baseline creatinine 1.9-2.3, GFR 28-33 Diabetes, Previous admissions with DKA Hypertension Diabetic gastroparesis Lupus CVA GERD Diabetic neuropathy Noncompliance Past Surgical History Cholecystectomy Partial hysterectomy Left foot surgery Reported Medications Oxygen (O2) Device Liter DESTINI.CANULA CONTINUOUS Oxygen Concentrator Portable Gaseous 2 L/min via Nasal Canula Continuous For 99 months Norvasc (Amlodipine Besylate) 10 Mg Tab 10 Mg PO DAILY 30 Days Hydralazine HCl 50 Mg Tablet 50 Mg PO Q8HR 30 Days Acidophilus/l-Sporogenes (Lactobacillus Acidophilus) 35 Million Cell-25 Million Cell Tab 1 Tab PO TID 30 Days Wheelchair (Device) 1 Mis Mis Ea .ROUTE DIRECTED Prednisone 10 Mg Tab 10 Mg PO BID Lactobacillus Acidophilus 1 Tab Tab 1 Tab PO TIDAC Walker/Adult/Folding (Device) 1 Mis Mis Ea .ROUTE DIRECTED Bedside Commode (Device) 1 Mis Mis Ea EXTERNAL DIRECTED Lovenox Inj (Enoxaparin Sodium) 30 Mg/0.3 Ml Syr 30 Mg SQ Q24H Catapres (Clonidine) 0.1 Mg Tab 0.1 Mg PO Q8HR Norvasc (Amlodipine Besylate) 5 Mg Tab 5 Mg PO DAILY Percocet (Oxycodone-Acetaminophen) 5-325 mg Tab 1 Tab PO Q4H PRN Lantus Inj (Insulin Glargine) 1,000 Unit/10 Ml Vial 10 Units SQ HS Reported Bumetanide 1 Mg Tab 1 Mg PO DAILY Novolog Inj (Insulin Aspart) 1,000 Unit/10 Ml Vial Unknown Dose SQ ACHS Max dose at bedtime ( ) units; sugars less than 70,(0) units; sugars 150-199,(2) units; sugars 200-249,(4) units; sugars 250-299,(7) units; sugars 300-349,(10) units; sugars greater than 349,(12)units Fluoxetine (Fluoxetine HCl) 10 Mg Tab 10 Mg PO DAILY Levetiracetam 500 Mg Tab 500 Mg PO BID Atorvastatin (Atorvastatin Calcium) 80 Mg Tab 80 Mg PO DAILY Active Ordered Medications Current Medications Medications (Trade) Dose Ordered Sig/Marin Route Start Time Stop Time Status Last Admin (NS Flush) 2 ml UNSCH PRN IV FLUSH 02/14/17 19:45 02/22/17 20:44 (NS Flush) 2 ml BID IV FLUSH 02/14/17 21:00 02/22/17 19:44 (Tylenol) 650 mg Q4H PRN PO 02/14/17 19:45 (Zofran Inj) 4 mg Q6H PRN IVP 02/14/17 19:45 (Coreg) 6.25 mg Q12HR PO 02/15/17 09:00 02/23/17 08:34 (Lipitor) 80 mg DAILY PO 02/15/17 09:00 02/23/17 08:33 (Keppra) 500 mg BID PO 02/15/17 09:00 02/23/17 08:34 (D50w (Vial) Inj) 50 ml UNSCH PRN IV 02/14/17 21:45 (Glucagon Inj) 1 mg UNSCH PRN OTHER 02/14/17 21:45 ([place] 5-325 Mg) 1 tab Q6H PRN PO 02/15/17 21:00 02/23/17 08:53 (NovoLOG SUPPLEMENTAL SCALE) 1 ACHS SLIDING SCALE SQ 02/16/17 07:00 02/20/17 20:03 (Lovenox Inj) 30 mg Q24H SQ 02/17/17 15:00 02/22/17 13:19 (Bumetanide) 1 mg BID@0900,1800 PO 02/17/17 19:21 02/22/17 17:51 (Deltasone) 5 mg DAILY PO 02/18/17 09:00 02/23/17 08:34 (VANCOMYCIN for oral use only) 250 mg QID PO 02/19/17 18:00 02/23/17 08:33 (Diuril) 250 mg DAILY PO 02/22/17 09:00 02/23/17 08:34 (Vitamin D3) 5,000 units DAILY PO 02/22/17 09:00 02/23/17 08:34 (Apresoline) 75 mg Q8HR PO 02/21/17 22:00 02/23/17 05:50 (Isordil Tembids Cr) 40 mg DAILY PO 02/22/17 09:00 02/23/17 08:34 (Lantus Inj) 16 units HS SQ 02/22/17 21:00 (Marinol) 5 mg BID@11,16 PO 02/22/17 11:00 02/22/17 17:50 (Albumin 25% Inj) 12.5 gm Q12H IV 02/22/17 21:00 02/23/17 08:32 (Mag-Al Plus Susp Liq) 30 ml Q6H PRN PO 02/23/17 08:30 02/23/17 08:32 (Oramorph Sr) 15 mg Q12HR PO 02/23/17 21:00 Ceftriaxone Sodium 1000 mg/ Sodium Chloride 100 ml @ 200 mls/hr Q24H IV 02/23/17 10:45 UNV (Lactinex) 1 tab TID PO 02/23/17 13:00 UNV Family History No hx of renal disorders Social History No smoking Denies ETOH Lives with family members Minimal activity after discharge full code (Eva Marcelo) Physical Exam Vital Signs Vital Signs Date Time Temp Pulse Resp B/P (MAP) Pulse Ox O2 Delivery O2 Flow Rate FiO2 02/23/17 08:00 99.0 102 16 133/75 (94) 99 02/23/17 04:30 99.1 103 18 157/74 (101) 96 02/23/17 00:40 95 02/23/17 00:30 100.5 90 17 131/59 (83) 88 02/23/17 00:04 105 02/22/17 21:33 95 103/54 (70) 02/22/17 20:04 101 02/22/17 20:00 99.8 102 16 133/60 (84) 94 02/22/17 16:07 100 02/22/17 16:00 99.5 102 16 118/57 (77) 91 02/22/17 12:20 95 Physical Exam GENERAL: This is an AAF patient, lying in bed, shaky. SKIN: No rashes, ecchymoses or lesions. warm and dry. HEAD: Atraumatic. Normocephalic. EYES: Pupils equal round and reactive.No injection or drainage. ENT: Nose without bleeding. Airway patent. NECK: Trachea midline. No JVD. CARDIOVASCULAR: normal rate adn rhythm without murmurs, gallops, or rubs. 3+ lower extremity edema. RESPIRATORY: Clear to auscultation. Breath sounds equal bilaterally. No wheezes , rales, or rhonchi. GASTROINTESTINAL: Abdomen soft, non-tender, nondistended. No guarding. + bowel sounds. MUSCULOSKELETAL: Extremities without clubbing, cyanosis. No calf tenderness. NEUROLOGICAL: Awake and alert. weakness in lower extremities. Normal speech. Laboratory Laboratory Tests Test 02/22/17 14:27 02/23/17 03:00 Blood Smear Pathologist Review Erythrocyte Sedimentation Rate 65 Reticulocyte Count 3.4 Absolute Reticulocyte Count 94.3 Total Bilirubin 0.3 Direct Bilirubin 0.1 Indirect Bilirubin 0.2 Aspartate Amino Transf (AST/SGOT) 18 Alanine Aminotransferase (ALT/SGPT) 17 Alkaline Phosphatase 117 Total Protein 6.1 Albumin 2.8 Urine Color YELLOW Urine Turbidity HAZY Urine pH 5.5 Urine Specific [place] 1.010 Urine Protein 30 Urine Glucose (UA) NEG Urine Ketones NEG Urine Occult Blood NEG Urine Nitrite NEG Urine Bilirubin NEG Urine Urobilinogen LESS THAN 2.0 Urine Leukocyte Esterase LARGE Urine RBC 4 Urine WBC 15 Urine Squamous Epithelial Cells 2 Urine Bacteria OCC Urine Yeast (Budding) OCC Microscopic Urinalysis Comment CULTURE INDICATED Date/Time Source Procedure Growth Status 02/23/17 03:00 Urine Clean Catch Urine Culture Pending Received (Eva Marcelo) Result Diagram: 02/22/1794002/22/17940 Assessment and Plan Problem List: (1) CKD (chronic kidney disease), stage III ICD Codes: N18.3 - Chronic kidney disease, stage 3 (moderate) Status: Acute Plan: Her renal function varies but is overall at baseline She does have lower extremity edema, unlikely nephrotic syndrome as she does not have significant proteinuria and BP has been controlled. Due to hypernatremia, change diuretics to Diuril 500 daily add TERE hose and elevate lower extremities repeat renal panel in AM she is non oliguric, monitor output avoid IVF, nephrotoxins Echo from December, Grade 1 diastolic dysfunction, EF 55-60% (2) Anemia ICD Codes: D64.9 - Anemia Status: Acute Plan: Hb low, may require transfusion No evidence of iron deficiency last admission (3) Hypertension ICD Codes: I10 - Hypertension Status: Acute Plan: Blood pressure is acceptable continue current medications (4) C. difficile diarrhea ICD Codes: A04.7 - Enterocolitis due to Clostridium difficile Plan: recurrent; she is on oral vancomycin and Lactinex contact precautions taken (Eva Marcelo) Assessment and Plan patient was seen and examined. Agree with above assessment and plan. Add Spironolactone for additional diuresis, but carefully monitor potassium. Obtain 24 hour urine collection for proteinuria quantification. She needs nutritional support. (Valdez Patterson MD) Problem Qualifiers (1) Hypertension: Qualified Codes: I10 - Essential (primary) hypertension Eva Marcelo Feb 23, 2017 12:28 Valdez Patterson MD Feb 23, 2017 18:58
[2017-02-23] MEDS: LACTOBACILLUS ACIDOPHILUS TAB PO SCH ×2 (13:10→18:12)
[2017-02-23] MEDS: cefTRIAXone INJ 1,000 MG in SODIUM CHLORIDE 0.9% INJ 100 ML IV SCH (13:10)
[2017-02-23] MEDS: ENOXAPARIN SODIUM 30 MG/0.3 ML SYRINGE SQ SCH (13:12)
[2017-02-23] MEDS: SODIUM CHLORIDE 0.9% FLUSH 10 ML FLUSH IV FLUSH SCH ×2 (13:15→21:55)
[2017-02-23] MEDS ORDERED: HYDROmorphone HCL PF 1 MG/ML VIAL IV PUSH ONE (13:15)
[2017-02-23] MEDS: DRONABINOL 5 MG CAP PO SCH ×2 (13:15→16:00)
[2017-02-23] MEDS ORDERED: metroNIDAZOLE 500 MG TAB PO SCH (14:00)
[2017-02-23 14:47] LABS: BASOPHIL % 0.1 % (0.0-2.0); EOSINOPHIL % 0.1 % (0.0-4.0); HEMATOCRIT 23.4 % (35.0-46.0); HEMO FLAGS DIFF FINAL; LYMPH % 3.4 % (9.0-44.0); LYMPHOCYTE # 0.6 TH/MM3 (1.0-4.8); MEAN CELL VOLUME 91.5 FL (80.0-100.0); MEAN CORPUSCULAR HEMOGLOBIN 29.6 PG (27.0-34.0); MEAN CORPUSCULAR HGB CONC 32.3 % (32.0-36.0); MONO % 8.7 % (0.0-8.0); NEUT % 87.7 % (16.0-70.0); PLATELET COUNT 176 TH/MM3 (150-450); RED BLOOD COUNT 2.56 MIL/MM3 (4.00-5.30); RED CELL DISTRIBUTION WIDTH 15.5 % (11.6-17.2); WHITE BLOOD COUNT 18.2 TH/MM3 (4.0-11.0)
[2017-02-23 15:19] LABS: BICARBONATE 28.1 MEQ/L (21.0-32.0); POTASSIUM 3.9 MEQ/L (3.5-5.1)
[2017-02-23] MEDS: INSULIN GLARGINE 1,000 UNITS/10 ML VIAL SQ SCH (21:00)
[2017-02-23] MEDS: MORPHINE SULFATE 15 MG CONTROLLED RELEASE TAB PO SCH (21:55)
[2017-02-24] VITALS (9 sets, daily range): BP systolic 110–131; BP diastolic 54–71; PULSE 76–93; RESP 18–20; TEMP 97–98.9; O2SAT 92–97
[2017-02-24] MEDS: ACETAMINOPHEN/HYDROcodone 325 MG/5 MG TAB PO PRN ×3 (01:17→19:14)
[2017-02-24 05:14] LABS: ALT (GPT) 62 U/L (10-53); ANION GAP 6 MEQ/L (5-15); AST (GOT) 142 U/L (15-37); BLOOD UREA NITROGEN 41 MG/DL (7-18); CHLORIDE 116 MEQ/L (98-107); GLOMERULAR FILTRATION RATE 26 ML/MIN (>89); POTASSIUM 4.8 MEQ/L (3.5-5.1); SODIUM (NA) 148 MEQ/L (136-145)
[2017-02-24 05:22] LABS: ALKALINE PHOSPHATASE 267 U/L (45-117); TOTAL BILIRUBIN ADULT 0.6 MG/DL (0.2-1.0)
[2017-02-24 05:46] LABS: AUTOMATED NEUTROPHIL # 15.4 TH/MM3 (1.8-7.7); BASOPHIL % 0.2 % (0.0-2.0); EOSINOPHIL % 0.1 % (0.0-4.0); HEMO FLAGS DIFF FINAL; LYMPH % 4.9 % (9.0-44.0); LYMPHOCYTE # 0.9 TH/MM3 (1.0-4.8); MEAN CELL VOLUME 95.4 FL (80.0-100.0); MEAN CORPUSCULAR HEMOGLOBIN 29.3 PG (27.0-34.0); MEAN CORPUSCULAR HGB CONC 30.7 % (32.0-36.0); MONO % 8.2 % (0.0-8.0); NEUT % 86.6 % (16.0-70.0); PLATELET COUNT 121 TH/MM3 (150-450); RED BLOOD COUNT 2.52 MIL/MM3 (4.00-5.30); RED CELL DISTRIBUTION WIDTH 16.1 % (11.6-17.2); WHITE BLOOD COUNT 17.7 TH/MM3 (4.0-11.0)
[2017-02-24] MEDS: hydrALAZINE HCL 25 MG TAB PO SCH ×3 (06:18→23:30)
[2017-02-24] MEDS: INSULIN ASPART SUPPLEMENTAL SCALE SQ SCH ×4 (08:00→23:30)
[2017-02-24] MEDS: VANCOMYCIN 500 MG VIAL (FOR ORAL USE ONLY) PO SCH ×4 (09:00→23:30)
--- NOTE | 2017-02-24 11:01 | HHI.NPPN ---
Subjective General Problems: Anemia Renal Failure: Chronic, Acute, Stage III Interval History She is lying in bed, shaky. Appears severely malnourished. Renal function is worse. (Eva Marcelo) Review of Systems General Constitutional: Fatigue General Remarks generalized weakness (Eva Marcelo) Cardiovascular Cardiac: Edema (Eva Marcelo) Gastrointestinal Gastrointestinal: Heartburn (Eva Marcelo) Objective Data Data Vital Signs Date Time Temp Pulse Resp B/P (MAP) Pulse Ox O2 Delivery O2 Flow Rate FiO2 02/24/17 08:00 97.4 85 18 110/56 (74) 96 02/24/17 04:00 98.3 90 18 123/58 (79) 94 02/24/17 02:46 16 02/24/17 00:00 98.9 93 18 127/64 (85) 92 02/23/17 22:28 86 02/23/17 22:25 16 02/23/17 20:00 100.2 92 18 119/59 (79) 94 02/23/17 16:00 100.0 96 16 126/62 (83) 97 02/23/17 12:00 99.2 102 16 130/67 (88) 96 (Eva Marcelo) -: 02/24/17 0424 02/24/17 0424 Physical Exam General Appearance: Comfortable, Anxious, Malnourished (Eva Marcelo) Throat Throat Exam: Oral Mucosa [place] & Moist (Eva Marcelo) Pulmonary Resp Exam: Clear Bilaterally, Breath Sounds Equal (Eva Marcelo) Cardiology CV Exam: Regular, Normal Sinus Rhythm (vEa Marcelo) Gastrointestinal/Abdomen GI Exam: Soft, Non-Tender, Bowel Sounds Present (Eva Marcelo) Musculoskeletal MS Exam: Joints Intact, Atrophy, Unable to Ambulate (Eva Marcelo) Integumentary Skin Exam: Warm, Dry (Eav Marcelo) Extremeties Extremities Exam: Pedal Pulses Palpable, Pitting Edema, Dependent Edema (Eva Marcelo) Neurologic Neuro Exam: Alert, Awake, Moving All Extremities (Eva Marcelo) Assessment/Plan Discussed Condition With: Patient Assessment Summary: REGAN/Acute Renal Failure, Anemia of CKD, Proteinuria, Hypertension Problem List: (1) CKD (chronic kidney disease), stage III ICD Codes: N18.3 - Chronic kidney disease, stage 3 (moderate) Status: Acute Plan: Baseline creatinine 1.8-2.2 Renal function is worse today Edema may be due to severe malnutrition and low albumin levels; 24 hour urine for protein quantification has been ordered. Continue Diuril 500 mg daily; Aldactone was added Ordered TERE hose with elevation of lower extremities Check doppler US bilateral lower extremities to rule out DVT Repeat renal panel daily; Hypernatremia is improving She is non oliguric, monitor output Avoid IVF, nephrotoxins Echo from December, Grade 1 diastolic dysfunction, EF 55-60% (2) Anemia ICD Codes: D64.9 - Anemia Status: Acute Plan: Hb low, may require transfusion No evidence of iron deficiency last admission (3) Hypertension ICD Codes: I10 - Hypertension Status: Acute Plan: Blood pressure is acceptable continue current medications (4) C. difficile diarrhea ICD Codes: A04.7 - Enterocolitis due to Clostridium difficile Plan: recurrent; she is on oral vancomycin and Lactinex contact precautions taken (5) DM (diabetes mellitus) type I uncontrolled with renal manifestation ICD Codes: E10.29 - Uncontrolled type 1 diabetes mellitus with renal manifestations; E10.65 - Type 1 diabetes mellitus with hyperglycemia Status: Chronic Plan: Monitor glucose; goal 140-180 mg/dL while admitted Continue insulin therapy (Eva Marcelo) Plan patient was seen and examined. Needs nutritional support. Spironolactone was added. Monitor electrolytes and renal function. She is at high risk for complications, mortality and morbidity. (Valdez Patterson MD) Problem Qualifiers (1) Hypertension: Qualified Codes: I10 - Essential (primary) hypertension (2) DM (diabetes mellitus) type I uncontrolled with renal manifestation: Eva Marcelo Feb 24, 2017 11:01 Valdez Patterson MD Feb 25, 2017 13:46
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
[2017-02-24] MEDS: MORPHINE SULFATE 15 MG CONTROLLED RELEASE TAB PO SCH ×2 (12:21→23:30)
[2017-02-24] MEDS: ISOSORBIDE DINITRATE 40 MG SUSTAINED RELEASE TAB PO SCH (12:22)
[2017-02-24] MEDS: predniSONE 5 MG TAB PO SCH (12:24)
[2017-02-24] MEDS: CARVEDILOL 6.25 MG TAB PO SCH ×2 (12:24→21:00)
[2017-02-24] MEDS: LACTOBACILLUS ACIDOPHILUS TAB PO SCH ×3 (12:24→18:55)
[2017-02-24] MEDS: CHLOROTHIAZIDE 250 MG TAB PO SCH (12:24)
[2017-02-24] MEDS: levETIRAcetam 500 MG TAB PO SCH ×2 (12:24→23:30)
[2017-02-24] MEDS: DRONABINOL 5 MG CAP PO SCH ×2 (12:24→18:55)
[2017-02-24] MEDS: ALBUMIN HUMAN 25% 12.5 GM/50 ML BAGP IV SCH ×2 (12:25→23:30)
[2017-02-24] MEDS: SPIRONOLACTONE 25 MG TAB PO SCH (12:29)
[2017-02-24] MEDS: SODIUM CHLORIDE 0.9% FLUSH 10 ML FLUSH IV FLUSH SCH ×2 (12:30→21:00)
[2017-02-24] MEDS: cefTRIAXone INJ 1,000 MG in SODIUM CHLORIDE 0.9% INJ 100 ML IV SCH (13:22)
[2017-02-24] MEDS: ATORVASTATIN 80 MG TAB PO SCH (13:26)
[2017-02-24] MEDS: CHOLECALCIFEROL (VIT D3) 5000 UNIT CAP PO SCH (13:26)
--- NOTE | 2017-02-24 14:09 | HHI.PR ---
Subjective Remarks Improving white blood cell count today. Concerning findings today are further decline in her hemoglobin, increased LFTs, creatinine. At last admission she had problems with blood thinners in the presence of her colitis causing GI bleeding. This improved with holding the blood thinner. Additionally her lupus had exacerbated and her renal function had improved with steroids. She is on low-dose steroids currently. Objective Vital Signs Date Time Temp Pulse Resp B/P (MAP) Pulse Ox O2 Delivery O2 Flow Rate FiO2 02/24/17 13:30 18 02/24/17 12:17 97.8 87 18 131/71 (91) 97 02/24/17 08:00 97.4 85 18 110/56 (74) 96 02/24/17 04:00 98.3 90 18 123/58 (79) 94 02/24/17 02:46 16 02/24/17 00:00 98.9 93 18 127/64 (85) 92 02/23/17 22:28 86 02/23/17 20:00 100.2 92 18 119/59 (79) 94 02/23/17 16:00 100.0 96 16 126/62 (83) 97 I/O 02/23/17 02/23/17 02/23/17 02/24/17 02/24/17 02/24/17 07:00 15:00 23:00 07:00 15:00 23:00 Intake Total 360 ml 600 ml Output Total 400 ml Balance -40 ml 600 ml Intake Oral 360 ml 600 ml Output Urine Total 400 ml # Voids 1 2 # Bowel Movements 1 Result Diagram: 02/24/17 0424 02/24/17 0424 Objective Remarks GENERAL: NAD, A&Ox3 HEAD: Normocephalic. NECK: Supple, trachea midline. No lymphadenopathy. EYES: No scleral icterus. No injection or drainage. CARDIOVASCULAR: Regular rate and rhythm without murmurs, gallops, or rubs. RESPIRATORY: Breath sounds equal bilaterally. No accessory muscle use. GASTROINTESTINAL: Abdomen soft, non-tender, nondistended. MUSCULOSKELETAL: No cyanosis. Bilateral lower extremity swelling. SKIN: Warm and dry. NEURO: No focal neurological deficitis. 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 difficile diarrhea ICD Code: A04.7 - Enterocolitis due to Clostridium difficile (6) REGAN (acute kidney injury) ICD Code: N17.9 - Acute kidney failure, unspecified Status: Acute Assessment and Plan Assessment and Plan 46-year-old female admitted secondary to recurrence of C. difficile and bilateral lower extremity edema. Possible exacerbation of lupus. Increased low -dose steroids 20 mg of prednisone twice a day for now. Monitor lower extremity edema, LFTs, and renal function. Continue to monitor hemoglobin. We' ll transfuse if hemoglobin declines further. Lovenox held for now. Recurrent C. difficile colitis Continue by mouth vancomycin No diarrhea reported today Follow clinically Urinary tract infection Rocephin Follow cultures Probiotics Bilateral lower extremity edema Nephrotic syndrome Protein malnutrition/wasting Continue albumin and diuresis Nephrology following Diabetes mellitus type 2 Follow blood sugars Insulin sliding scale Diabetic diet History of lupus Autoimmunity Anemia of chronic disease Follow CBC Diastolic CHF Follow clinically Contributory to difficulty with diuresis Continue carvedilol Hypertension No change in baseline blood pressure treatments Follow blood pressures Lower extremity weakness Continue physical therapy DVT prophylaxis Lovenox on hold due to possible bleeding/anemia Discharge planning Will likely need SNF discharge Problem Qualifiers (1) Hypertension: Qualified Codes: I10 - Essential (primary) hypertension Umesh Pandya MD Feb 24, 2017 14:09
[2017-02-24] MEDS: INSULIN GLARGINE 1,000 UNITS/10 ML VIAL SQ SCH (21:00)
[2017-02-24] MEDS: predniSONE 20 MG TAB PO SCH (23:30)
[2017-02-25] VITALS: BP 107/55; PULSE 79; RESP 16; TEMP 96.9; O2SAT 96
[2017-02-25 04:00] VITALS: BP 110/58; PULSE 71; RESP 16; TEMP 97.3; O2SAT 96
[2017-02-25] MEDS ORDERED: NALOXONE HCL 4 MG/10 ML MDV IV ONE (05:00)
[2017-02-25] MEDS: hydrALAZINE HCL 25 MG TAB PO SCH ×2 (05:56→14:00)
[2017-02-25 08:00] VITALS: BP 107/63; PULSE 76; RESP 20; TEMP 96.6; O2SAT 92
[2017-02-25] MEDS: INSULIN ASPART SUPPLEMENTAL SCALE SQ SCH ×2 (08:00→12:00)
[2017-02-25 08:30] VITALS: PULSE 74
[2017-02-25] MEDS: ATORVASTATIN 80 MG TAB PO SCH (09:00)
[2017-02-25] MEDS: VANCOMYCIN 500 MG VIAL (FOR ORAL USE ONLY) PO SCH ×4 (09:00→20:23)
[2017-02-25] MEDS: ALBUMIN HUMAN 25% 12.5 GM/50 ML BAGP IV SCH ×2 (09:00→20:23)
[2017-02-25] MEDS: SODIUM CHLORIDE 0.9% FLUSH 10 ML FLUSH IV FLUSH SCH ×2 (09:00→20:23)
[2017-02-25] MEDS: CHOLECALCIFEROL (VIT D3) 5000 UNIT CAP PO SCH (09:53)
[2017-02-25] MEDS: levETIRAcetam 500 MG TAB PO SCH ×2 (09:54→20:23)
[2017-02-25] MEDS: CARVEDILOL 6.25 MG TAB PO SCH (09:54)
[2017-02-25] MEDS: MORPHINE SULFATE 15 MG CONTROLLED RELEASE TAB PO SCH (09:54)
[2017-02-25] MEDS: predniSONE 20 MG TAB PO SCH ×2 (09:54→20:23)
[2017-02-25] MEDS: ISOSORBIDE DINITRATE 40 MG SUSTAINED RELEASE TAB PO SCH (09:54)
[2017-02-25] MEDS: SPIRONOLACTONE 25 MG TAB PO SCH (09:54)
[2017-02-25] MEDS: LACTOBACILLUS ACIDOPHILUS TAB PO SCH ×3 (09:54→16:33)
[2017-02-25] MEDS: CHLOROTHIAZIDE 250 MG TAB PO SCH (09:55)
--- NOTE | 2017-02-25 10:09 | HHI.NPPN ---
Subjective General Problems: Anemia Renal Failure: Chronic, Acute, Stage III Interval History Phlebotomy was unable to collect labs, she is a hard stick. Urine output not recorded, she is incontinent on the bed. Edema persists. She is awake and able to hold a conversation. (Eva Marcelo) Review of Systems General Constitutional: Fatigue General Remarks generalized weakness (Eva Marcelo) Cardiovascular Cardiac: Edema (Eva Marcelo) Gastrointestinal Gastrointestinal: Heartburn (Eva Marcelo) Objective Data Data Vital Signs Date Time Temp Pulse Resp B/P (MAP) Pulse Ox O2 Delivery O2 Flow Rate FiO2 02/25/17 08:00 96.6 76 20 107/63 (78) 92 02/25/17 04:00 97.3 71 16 110/58 (75) 96 02/25/17 00:30 16 02/25/17 00:00 96.9 79 16 107/55 (72) 96 02/24/17 23:30 16 02/24/17 20:00 97.0 81 18 114/54 (74) 97 02/24/17 19:11 76 02/24/17 17:59 82 02/24/17 16:03 97.8 89 20 117/56 (76) 93 02/24/17 12:17 97.8 87 18 131/71 (91) 97 (Eva Marcelo) -: 02/24/17 0424 02/24/17 0424 Imaging Last Impressions Lower Extremity Ultrasound 02/24/17 0000 Signed Impressions: Service Date/Time: February 11:34 - CONCLUSION: No evidence of deep venous thrombosis within the lower extremities. Villa Calderon MD (Eva Marcelo) Physical Exam General Appearance: Comfortable, Anxious, Malnourished (Eva Marcelo) Throat Throat Exam: Oral Mucosa [place] & Moist (Eva Marcelo) Pulmonary Resp Exam: Clear Bilaterally, Breath Sounds Equal (Eva Marcelo) Cardiology CV Exam: Regular, Normal Sinus Rhythm (Eva Marcelo) Gastrointestinal/Abdomen GI Exam: Soft, Non-Tender, Bowel Sounds Present (Eva Marcelo) Musculoskeletal MS Exam: Joints Intact, Atrophy, Unable to Ambulate (Eva Marcelo) Integumentary Skin Exam: Warm, Dry (Eva Marcelo) Extremeties Extremities Exam: Pedal Pulses Palpable, Pitting Edema, Dependent Edema (Eva Marcelo) Neurologic Neuro Exam: Alert, Awake, Moving All Extremities (Eva Marcelo) Assessment/Plan Discussed Condition With: Patient Assessment Summary: REGAN/Acute Renal Failure, Anemia of CKD, Fluid/Volume Overload, Proteinuria, Hypertension Problem List: (1) CKD (chronic kidney disease), stage III ICD Codes: N18.3 - Chronic kidney disease, stage 3 (moderate) Status: Acute Plan: Baseline creatinine 1.8-2.2 Awaiting repeat renal panel; renal function has been getting worse Incontinent but appears to be non oliguric Continue diuresis with Diuril and Aldactone Edema may be due to severe malnutrition and low albumin levels; 24 hour urine for protein quantification has been ordered but is not available Ordered TERE green with elevation of lower extremities Doppler to evaluate for DVT bilaterally was negative Place meade for I/O Avoid IVF, nephrotoxins Echo from December, Grade 1 diastolic dysfunction, EF 55-60% It is possible she may require dialysis this admission. She told me today that she does not want dialysis. May need to define goals of care (2) Anemia ICD Codes: D64.9 - Anemia Status: Acute Plan: Hb low, may require transfusion No evidence of iron deficiency last admission (3) Hypertension ICD Codes: I10 - Hypertension Status: Acute Plan: Blood pressure is acceptable continue current medications (4) C. difficile diarrhea ICD Codes: A04.7 - Enterocolitis due to Clostridium difficile Plan: recurrent; she is on oral vancomycin and Lactinex contact precautions taken (5) DM (diabetes mellitus) type I uncontrolled with renal manifestation ICD Codes: E10.29 - Uncontrolled type 1 diabetes mellitus with renal manifestations; E10.65 - Type 1 diabetes mellitus with hyperglycemia Status: Chronic Plan: Monitor glucose; goal 140-180 mg/dL while admitted Continue insulin therapy (Eva Marcelo) Plan patient was seen and examined. Agree with above assessment and plan. Labs are pending. She is at risk for complications. Severe malnutrition. Needs nutritional support. (Valdez Patterson MD) Problem Qualifiers (1) Hypertension: Qualified Codes: I10 - Essential (primary) hypertension (2) DM (diabetes mellitus) type I uncontrolled with renal manifestation: Eva Marcelo Feb 25, 2017 10:08 Valdez Patterson MD Feb 25, 2017 14:01
[2017-02-25] MEDS: DRONABINOL 5 MG CAP PO SCH ×2 (11:44→16:00)
[2017-02-25] MEDS: cefTRIAXone INJ 1,000 MG in SODIUM CHLORIDE 0.9% INJ 100 ML IV SCH (11:45)
[2017-02-25 12:10] VITALS: PULSE 60
[2017-02-25] MEDS ORDERED: NALOXONE HCL 0.4 MG/ML AMP ONE (12:35)
[2017-02-25 12:53] VITALS: BP 112/57; PULSE 77; RESP 15; TEMP 94.1; O2SAT 99
[2017-02-25] MEDS ORDERED: NALOXONE HCL 0.4 MG/ML AMP IV PUSH ONE ×2 (13:00→19:30)
[2017-02-25] MEDS ORDERED: FUROSEMIDE 20 MG/2 ML VIAL IV PUSH ONE (13:00)
[2017-02-25 13:12] LABS: BLOOD GAS BASE EXCESS -5.1 mmol/L (-2-2); BLOOD GAS CARBOXYHEMOGLOBIN 1.6 % (0-4); BLOOD GAS HCO3 20 mmol/L (22-26); BLOOD GAS METHEMOGLOBIN 1.3 % (0-2); BLOOD GAS O2 HGB SATURATION 97 % (90-100); BLOOD GAS OXYGEN CONTENT 14.8 Vol % (12.0-20.0); BLOOD GAS PCO2 42 mmHg (38-42); BLOOD GAS PO2 298 mmHg (61-120); BLOOD GAS TOTAL HGB 10.3 G/DL (12.0-16.0); CRITICAL VALUE NO; TEMP CORR TO 98.6
[2017-02-25 13:13] LABS: DRAW SITE RT RADIAL; FIO2 100 %; LITER FLOW 15 L/M; NUMBER OF ARTERIAL PUNCTURES 1; STAT YES; ULNAR PULSE PRESENT
--- NOTE | 2017-02-25 13:45 | HHI.PR ---
Subjective Remarks Labs are pending today. Patient is encouraged to comply with lab draws. Acute event today. Patient found lethargic with oxygen saturations in the 70s and low blood pressures. MS Contin had been started recently and Narcan causes a reversal of her symptoms. Sepsis is not suspected. Etiology could be related to narcotics alone versus worsening renal function or worsening anemia. Again, labs are pending some more clarification with present future. Objective Vital Signs Date Time Temp Pulse Resp B/P (MAP) Pulse Ox O2 Delivery O2 Flow Rate FiO2 02/25/17 08:00 96.6 76 20 107/63 (78) 92 02/25/17 04:00 97.3 71 16 110/58 (75) 96 02/25/17 00:30 16 02/25/17 00:00 96.9 79 16 107/55 (72) 96 02/24/17 23:30 16 02/24/17 20:00 97.0 81 18 114/54 (74) 97 02/24/17 19:11 76 02/24/17 17:59 82 02/24/17 16:03 97.8 89 20 117/56 (76) 93 I/O 02/24/17 02/24/17 02/24/17 02/25/17 02/25/17 02/25/17 07:00 15:00 23:00 07:00 15:00 23:00 Intake Total 60 ml Balance 60 ml Intake Oral 60 ml Result Diagram: 02/24/17 0424 02/24/17 0424 Objective Remarks GENERAL: NAD, A&Ox3 HEAD: Normocephalic. NECK: Supple, trachea midline. No lymphadenopathy. EYES: No scleral icterus. No injection or drainage. CARDIOVASCULAR: Regular rate and rhythm without murmurs, gallops, or rubs. RESPIRATORY: Breath sounds equal bilaterally. No accessory muscle use. GASTROINTESTINAL: Abdomen soft, non-tender, nondistended. MUSCULOSKELETAL: No cyanosis. Bilateral lower extremity swelling. SKIN: Warm and dry. NEURO: No focal neurological deficitis. A/P Problem List: (1) Lupus ICD Code: M32.9 - Systemic lupus erythematosus Status: Chronic (2) Hypertension ICD Code: I10 - Hypertension Status: Acute (3) Insulin dependent diabetes mellitus ICD Code: E11.9 - Insulin dependent diabetes mellitus; Z79.4 - MCC ( current) use of insulin Status: Acute (4) Diabetic neuropathy ICD Code: E11.40 - Diabetic neuropathy Status: Acute (5) C. difficile diarrhea ICD Code: A04.7 - Enterocolitis due to Clostridium difficile (6) REGAN (acute kidney injury) ICD Code: N17.9 - Acute kidney failure, unspecified Status: Acute Assessment and Plan Assessment and Plan 46-year-old female admitted secondary to recurrence of C. difficile and bilateral lower extremity edema. Possible exacerbation of lupus. Acute hypotension and hypoxia. Possible narcotic overdose. Narcan given. Hold MS Contin. Oxygen for support. Follow blood pressures. No diffuse pulmonary edema on x-ray. ABG shows transient disturbance and correction pattern for hypoxia. Recurrent C. difficile colitis Continue by mouth vancomycin No diarrhea reported today Follow clinically Urinary tract infection Rocephin Follow cultures Probiotics Bilateral lower extremity edema Nephrotic syndrome Protein malnutrition/wasting Continue albumin and diuresis Nephrology following Diabetes mellitus type 2 Follow blood sugars Insulin sliding scale Diabetic diet History of lupus Autoimmunity Anemia of chronic disease Follow CBC Diastolic CHF Follow clinically Contributory to difficulty with diuresis Continue carvedilol Hypertension No change in baseline blood pressure treatments Follow blood pressures Lower extremity weakness Continue physical therapy DVT prophylaxis Lovenox on hold due to possible bleeding/anemia Discharge planning Will likely need SNF discharge Problem Qualifiers (1) Hypertension: Qualified Codes: I10 - Essential (primary) hypertension Umesh Pandya MD Feb 25, 2017 13:45
--- NOTE | 2017-02-25 14:35 | RADRPT ---
EXAM DATE/TIME: 02/25/2017 13:16 [facility] COMPARISON: CHEST SINGLE AP, February 07, 2017, 2:03. INDICATIONS : Shortness of breath. MEDICAL HISTORY : Cholecystectomy. Hysterectomy. section. Right tib/fib. Left foot SURGICAL HISTORY : Cholecystectomy. Hysterectomy. section. Right tib/fib. Left foot ENCOUNTER: Subsequent ACUITY: 2 months PAIN SCORE: 0/10 LOCATION: Bilateral chest FINDINGS: Mild perihilar infiltrates are noted bilaterally consistent with mild pulmonary vascular congestion v ersus pneumonia. Clinical correlation is recommended. The heart is mildly enlarged. CONCLUSION: 1. Mild perihilar infiltrates consistent with mild pulmonary vascular congestion versus pneumonia. Cl inical correlation is recommended. 2. Cardiomegaly. Villa Calderon MD on February 25, 2017 at 14:07 Board Certified Radiologist. This report was verified electronically.
[2017-02-25 14:41] LABS: HEMATOCRIT 24.6 % (35.0-46.0); MEAN CELL VOLUME 93.4 FL (80.0-100.0); MEAN CORPUSCULAR HEMOGLOBIN 29.2 PG (27.0-34.0); MEAN CORPUSCULAR HGB CONC 31.2 % (32.0-36.0); PLATELET COUNT 127 TH/MM3 (150-450); RED BLOOD COUNT 2.63 MIL/MM3 (4.00-5.30); RED CELL DISTRIBUTION WIDTH 15.6 % (11.6-17.2); REVIEW FLAG FINAL; WHITE BLOOD COUNT 15.3 TH/MM3 (4.0-11.0)
[2017-02-25 15:04] LABS: BICARBONATE 21.3 MEQ/L (21.0-32.0); POTASSIUM 5.1 MEQ/L (3.5-5.1)
--- NOTE | 2017-02-25 19:25 | PD.CONS ---
[facility] Service Critical Care Medicine Consult Requested By Dr. Pandya Reason for Consult Narcotic overdose need for Narcan drip Primary Care Physician Andrea Cardoso D.O. History of Present Illness This is a 46-year-old AA female. Date of admission 02/15/2017. Calcium 2016. 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 She presented to [facility] on 02/15 in the hospital service Patient states she has "water on my legs" along with lower extremity weakness since her discharge from the hospital on Friday 02/09 with a right tibial IM yuri placement for fracture.. She states she never picked up her prescriptions after being discharged from the hospital. She is alert and oriented but a difficult historian as she will not directly answer questions about her care at home and whether she has help at home. She was discharged home with home health. During this hospitalization, she has been seen by infectious disease for C. difficile. She is currently in vancomycin 250 every 6 hours along with Rocephin patient was seen by nephrology due to elevated creatinine. Her angiotensive been adjusted she is currently in Coreg, hydralazine and nitrates. These are currently being held in light of current hypotension. She is also started on Diuril and spironolactone in attempt to gently diurese. Her pain medications have been adjusted and she's been started on extended release morphine. Earlier today, patient was a rapid response due to altered mental status and hypotension. Received 0.2 mg of Narcan. Patient has second response a due to a similar situation due to morphine. Patient replaced on Narcan drip and was transferred to ICU. She is currently awake and alert and normotensive. Review of Systems ROS Limitations: Altered Mental Status Past Family Social History Allergies: Coded Allergies: Sulfa (Sulfonamide Antibiotics) (Verified Allergy, Severe, 01/25/17) RASH aspirin (Verified Allergy, Severe, 01/25/17) RASH penicillin G (Verified Allergy, Severe, 01/25/17) banana (Verified Allergy, Intermediate, Hives, 01/25/17) adhesive (Verified Allergy, Unknown, 01/25/17) nitrofurantoin (Verified Allergy, Unknown, 01/25/17) insulin detemir (Verified Adverse Reaction, Severe, Sweats, funny feeling , mood swings, daze, 01/25/17) Past Medical History Adjustment disorder Seizure disorder NOS History CVA with hemiparesis old Hypertension Chronic diastolic heart failure Gastroesophageal reflux disease Diurese mellitus type I with an gastroparesis and neuropathy and nephropathy Vitamin D deficiency Chronic kidney disease stage IIIB Lupus Osteoarthritis History of MRSA Hiatal hernia Esophagitis Past Surgical History Right tibial IM yuri Kidney biopsy left fifth metatarsal ray amputation Hysterectomy Cholecystectomy History of EGD Reported Medications Hydralazine 50 mg by mouth every 8 hours Clonidine 0.1 mg by mouth every 8 hours Atorvastatin 80 mg by mouth daily Levetiracetam 500 mg by mouth twice a day Percocet 10/325 one tablet every 4 hours. Pain Fluoxetine 10 mg by mouth daily Prednisone 10 mg by mouth twice a day Insulin glargine 15 units at night Sliding-scale insulin Active Ordered Medications Reviewed in EMR Family History Father is 80 and alive in good health. As the family history of diabetes. Social History Social alcohol use. No tobacco or IV drug use Physical Exam Vital Signs Vital Signs Date Time Temp Pulse Resp B/P (MAP) Pulse Ox O2 Delivery O2 Flow Rate FiO2 02/25/17 12:53 94.1 77 15 112/57 (75) 99 02/25/17 12:10 60 02/25/17 08:30 74 02/25/17 08:00 96.6 76 20 107/63 (78) 92 02/25/17 04:00 97.3 71 16 110/58 (75) 96 02/25/17 00:30 16 02/25/17 00:00 96.9 79 16 107/55 (72) 96 02/24/17 23:30 16 02/24/17 20:00 97.0 81 18 114/54 (74) 97 Physical Exam GENERAL: 46-year-old female, resting in bed in no acute distress SKIN: Warm and dry. HEAD: Atraumatic. Normocephalic. EYES: Pupils equal and round about 2 mm bilaterally and reactive. No scleral icterus. No injection or drainage. ENT: No nasal bleeding or discharge. Mucous membranes pink and moist. NECK: Trachea midline. No JVD. CARDIOVASCULAR: Regular rate and rhythm. S1, S2.Without murmur RESPIRATORY: No accessory muscle use. Clear to auscultation. Breath sounds equal bilaterally. GASTROINTESTINAL: Abdomen soft, non-tender, nondistended. Hepatic and splenic margins not palpable. MUSCULOSKELETAL: Extremities with 2+ bilateral pitting edema. No obvious deformities. NEUROLOGICAL: Solemnent, but arouses to stimulation. Moving all 4 extremity spontaneously Decreased sensation to light touch and pinprick. Laboratory Laboratory Tests Test 02/25/17 13:00 02/25/17 13:55 Blood Gas Puncture Site RT RADIAL Blood Gas Patient Temperature 98.6 Blood Gas HCO3 20 Blood Gas Base Excess -5.1 Blood Gas Oxygen Saturation 97 Arterial Blood pH 7.30 Arterial Blood Partial Pressure CO2 42 Arterial Blood Partial Pressure O2 298 Arterial Blood Oxygen Content 14.8 Arterial Blood Carboxyhemoglobin 1.6 Arterial Blood Methemoglobin 1.3 Blood Gas Hemoglobin 10.3 Oxygen Delivery Device Non-Rebreathing Mask Blood Gas Liter Flow 15 Blood Gas Inspired Oxygen 100 White Blood Count 15.3 Red Blood Count 2.63 Hemoglobin 7.7 Hematocrit 24.6 Mean Corpuscular Volume 93.4 Mean Corpuscular Hemoglobin 29.2 Mean Corpuscular Hemoglobin Concent 31.2 Red Cell Distribution Width 15.6 Platelet Count 127 Mean Platelet Volume 11.1 Blood Urea Nitrogen 50 Creatinine 2.72 Random Glucose 224 Albumin 2.3 Calcium Level 8.6 Phosphorus Level 5.6 Sodium Level 145 Potassium Level 5.1 Chloride Level 109 Carbon Dioxide Level 21.3 Anion Gap 15 Estimat Glomerular Filtration Rate 23 Date/Time Source Procedure Growth Status 02/23/17 03:00 Urine Clean Catch Urine Culture - Final 50-100,000 CFU/ML MIXED GRAM POSITIVE... Complete Result Diagram: 02/25/17 1355 02/25/17 1355 Imaging Last Impressions Chest X-Ray 02/25/17 0000 Signed Impressions: Service Date/Time: Saturday, February 25, 2017 13:16 - CONCLUSION: 1. Mild perihilar infiltrates consistent with mild pulmonary vascular congestion versus pneumonia. Clinical correlation is recommended. 2. Cardiomegaly. Villa Calderon MD Lower Extremity Ultrasound 02/24/17 0000 Signed Impressions: Service Date/Time: February 11:34 - CONCLUSION: No evidence of deep venous thrombosis within the lower extremities. Villa Calderon MD Assessment and Plan Assessment and Plan Neuro/Psych: Chronic pain syndrome Adjustment disorder NOS Seizure disorder History of left centrum semiovale CVA Discontinue morphine and released due to adverse effects Patient will be placed on a Narcan drip to maintain a goal of RA SS -2 Continue levetiracetam 500 mg by mouth twice a day Patient previously on fluoxetine 10 mg a mouth daily CV: Hypertension Dyslipidemia Chronic diastolic heart failure ejection fraction 55-60% 12/27 Currently on atorvastatin 80 mg by mouth daily for dyslipidemia Currently in Coreg 6.25 twice a day, hydralazine 50 mg 3 times a day and Isordil 40 mg by mouth daily. Hold if remains hypotensive. Echo 12/27 reveals EF 55-60%. PAP 40 mmHg. Resp: History of bronchial asthma As needed bronchodilator therapy with albuterol nebs every 2 hours. Nasal cannula to maintain saturations greater than equal to 92% GI: Diabetic gastroparesis Gastroesophageal reflux disease Currently on ADA diet Pantoprazole for GI prophylaxis Holding bowel regimen due to diarrhea : Maurer catheter to maintain accurate I's and O's in a critically ill patient Endo/Rheum: Diabetes mellitus type 1 with neuropathy/nephropathy and gastroparesis Lupus At home on insulin glargine 15 units at night. Along with sliding scale insulin. Currently on detemir 16 units daily with sliding scale insulin Renal: Chronic kidney disease stage IIIb currently 2.72 Currently being diuresed by nephrology. On diarrheal 5 mg daily and spinal act and 25 mill grams by mouth twice a day Baseline creatinine around 1.3 Heme: Leukocytosis Normocytic anemia Thrombocytopenia Monitor CBC daily. Follow trends No indications for transfusion of blood proximal to this time ID: C. difficile positive Cystitis currently on ceftriaxone day #4 History of MRSA Semen Dr. Stanton 02/20. Currently on vancomycin 250 mg by mouth every 6 hours Hospital started ceftriaxone for cystitis. Gram-positive bacteria MSK: Osteoarthritis Vitamin D deficiency FEN: Replace electrolytes as clinically indicated Access - Utilize peripheral IV. Central line if indicated Prophylaxis - GI - pantoprazole - DVT - SCD/heparin subcutaneous 30 minutes critical care time Code Status Full code Discussed Condition With Patient. Care plan discussed and all questions answered. José Miguel Ndiaye MD Feb 25, 2017 19:25
[2017-02-25] MEDS ORDERED: SODIUM CHLOR 0.9% 1000 ML INJ 1,000 ML IV ONE (20:00)
[2017-02-25] MEDS ORDERED: NALOXONE INJ 4 MG in DEXTROSE 5% IN WATER INJ 246 ML IV PRN ×2 (20:00)
[2017-02-25] MEDS ORDERED: ALBUMIN HUMAN 25% 25 GM/100 ML BAGP IV ONE (20:00)
[2017-02-25] MEDS: INSULIN GLARGINE 1,000 UNITS/10 ML VIAL SQ SCH (20:23)
[2017-02-25] MEDS ORDERED: NOREPINEPHRINE-DEXTROSE DRIP 250 ML IV ONE (20:37)
--- NOTE | 2017-02-25 23:26 | PD.PROCEDR ---
Central Line Procedure REASON FOR PROCEDURE Central venous access PROCEDURE PERFORMED Central line placement: Left IJ CVL CONSENT Informed consent for procedure was obtained. The risks and benefits of the procedure were discussed to include but limited to bleeding, clot formation, infection, and even . ANESTHESIA Local injection of 1% Lidocaine DESCRIPTION OF THE PROCEDURE The patient was placed in supine, mild Trendelenburg position. The area was exposed and cleansed with ChloraPrep, times two. Large sterile drape was used to cover the patient, with the site exposed, under sterile conditions including cap, face mask, sterile gown, and sterile gloves. On single attempt, the introducer needle was inserted with negative pressure in syringe and venous flash was obtained. The guide wire was then advanced without any restriction and the needle was removed. The dilator was used without any complications. Using Seldinger technique the triple-lumen antibiotic coated catheter was advanced over the guide wire to a depth of 20 centimeters. The guide wire was removed. All ports were aspirated with dark venous blood return and flushed easily with sterile saline. All ports were capped. Antibiotic disc was placed around central line at puncture site. The central line was secured to the skin with two interrupted 2.0 silk sutures. The area was bandaged with sterile see- through central line bandage. RADIOLOGICAL DATA Ultrasound guidance was used to locate left internal jugular vein. Doppler/ color flow was used to confirm venous flow. COMPLICATIONS: No apparent complications ESTIMATED BLOOD LOSS: Less than 1 cc. José Miguel Ndiaye MD Feb 25, 2017 23:26
--- NOTE | 2017-02-25 23:39 | RADRPT ---
EXAM DATE/TIME: 02/25/2017 22:51 [facility] COMPARISON: CHEST SINGLE AP, February 25, 2017, 13:16. INDICATIONS : Central line placement MEDICAL HISTORY : None. SURGICAL HISTORY : Cholecystectomy. Hysterectomy. section. Right tib/fib. Left foot ENCOUNTER: Initial ACUITY: 1 day PAIN SCORE: 0/10 LOCATION: Bilateral chest FINDINGS: A single view of the chest demonstrates interval improvement in the previously seen vascular congesti on. However, there is still bilateral areas of parenchymal infiltrate, particularly in the right uppe r lobe and left perihilar distribution possibly representing pneumonia. Interval placement of left IJ central venous catheter with tip projecting over the central venous system. Heart size is prominent but appears to be well compensated. No effusion. Osseous structures are intact. CONCLUSION: 1. Left IJ central venous catheter projects over the central venous system. No pneumothorax. 2. Vascular congestion appears to have improved but there are still patchy areas of infiltrate predom inantly in the right upper lung and left perihilar distribution. Genaro Key MD on February 25, 2017 at 23:15 Board Certified Radiologist. This report was verified electronically.
[2017-02-25 23:44] LABS: MEAN CELL VOLUME 94.9 FL (80.0-100.0); MEAN CORPUSCULAR HEMOGLOBIN 29.6 PG (27.0-34.0); MEAN CORPUSCULAR HGB CONC 31.2 % (32.0-36.0); PLATELET COUNT 110 TH/MM3 (150-450); RED BLOOD COUNT 2.16 MIL/MM3 (4.00-5.30); RED CELL DISTRIBUTION WIDTH 15.5 % (11.6-17.2); WHITE BLOOD COUNT 12.7 TH/MM3 (4.0-11.0)
[2017-02-25 23:51] LABS: REVIEW FLAG FINAL
[2017-02-25 23:52] LABS: HEMATOCRIT 20.5 % (35.0-46.0)
[2017-02-25 23:54] LABS: APTT (PATIENT) 35.2 SEC (24.3-30.1); INTERNATIONAL NORMALIZED RATIO 1.3 RATIO
[2017-02-25 23:58] LABS: BICARBONATE 19.2 MEQ/L (21.0-32.0); MAGNESIUM 2.2 MG/DL (1.5-2.5); POTASSIUM 5.3 MEQ/L (3.5-5.1)
[2017-02-26] VITALS (13 sets, daily range): BP systolic 83–163; BP diastolic 44–75; PULSE 62–82; RESP 11–15; TEMP 95.7–98.3; O2SAT 96–100
[2017-02-26] MEDS: INSULIN ASPART SUPPLEMENTAL SCALE SQ SCH ×4 (05:26→20:38)
[2017-02-26 07:07] LABS: AUTOMATED NEUTROPHIL # 15.5 TH/MM3 (1.8-7.7); BASOPHIL % 0.1 % (0.0-2.0); HEMO FLAGS DIFF FINAL; LYMPH % 3.3 % (9.0-44.0); LYMPHOCYTE # 0.5 TH/MM3 (1.0-4.8); MEAN CELL VOLUME 92.7 FL (80.0-100.0); MEAN CORPUSCULAR HEMOGLOBIN 29.2 PG (27.0-34.0); MEAN CORPUSCULAR HGB CONC 31.5 % (32.0-36.0); MONO % 3.8 % (0.0-8.0); NEUT % 92.8 % (16.0-70.0); PLATELET COUNT 128 TH/MM3 (150-450); RED BLOOD COUNT 3.24 MIL/MM3 (4.00-5.30); RED CELL DISTRIBUTION WIDTH 15.5 % (11.6-17.2); WHITE BLOOD COUNT 16.7 TH/MM3 (4.0-11.0)
[2017-02-26 07:37] LABS: ANION GAP 18 MEQ/L (5-15); AST (GOT) 131 U/L (15-37); BICARBONATE 16.9 MEQ/L (21.0-32.0); BLOOD UREA NITROGEN 62 MG/DL (7-18); CHLORIDE 109 MEQ/L (98-107); GLOMERULAR FILTRATION RATE 20 ML/MIN (>89); POTASSIUM 5.1 MEQ/L (3.5-5.1); SODIUM (NA) 144 MEQ/L (136-145)
[2017-02-26 07:39] LABS: ALT (GPT) 352 U/L (10-53)
[2017-02-26 07:42] LABS: ALKALINE PHOSPHATASE 426 U/L (45-117); TOTAL BILIRUBIN ADULT 1.3 MG/DL (0.2-1.0)
[2017-02-26] MEDS: ALBUMIN HUMAN 25% 12.5 GM/50 ML BAGP IV SCH ×2 (07:59→20:29)
[2017-02-26] MEDS: VANCOMYCIN 500 MG VIAL (FOR ORAL USE ONLY) PO SCH ×5 (08:00→20:28)
[2017-02-26] MEDS: SPIRONOLACTONE 25 MG TAB PO SCH (08:00)
[2017-02-26] MEDS: LACTOBACILLUS ACIDOPHILUS TAB PO SCH ×4 (08:00→18:00)
[2017-02-26] MEDS: predniSONE 20 MG TAB PO SCH ×2 (08:01→20:28)
[2017-02-26] MEDS: ATORVASTATIN 80 MG TAB PO SCH (08:01)
[2017-02-26] MEDS: SODIUM CHLORIDE 0.9% FLUSH 10 ML FLUSH IV FLUSH SCH ×2 (08:01→21:00)
[2017-02-26] MEDS: levETIRAcetam 500 MG TAB PO SCH ×2 (08:01→20:28)
--- NOTE | 2017-02-26 09:24 | HHI.CCPN ---
Subjective Remarks/Hospital Course This is a 46-year-old AA female. Date of admission 02/15/2017. Calcium 2016. 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 She presented to [facility] on 02/15 in the hospital service Patient states she has "water on my legs" along with lower extremity weakness since her discharge from the hospital on Friday 02/09 with a right tibial IM yuri placement for fracture.. She states she never picked up her prescriptions after being discharged from the hospital. She is alert and oriented but a difficult historian as she will not directly answer questions about her care at home and whether she has help at home. She was discharged home with home health. During this hospitalization, she has been seen by infectious disease for C. difficile. She is currently in vancomycin 250 every 6 hours along with Rocephin patient was seen by nephrology due to elevated creatinine. Her angiotensive been adjusted she is currently in Coreg, hydralazine and nitrates. These are currently being held in light of current hypotension. She is also started on Diuril and spironolactone in attempt to gently diurese. Her pain medications have been adjusted and she's been started on extended release morphine. Earlier today, patient was a rapid response due to altered mental status and hypotension. Received 0.2 mg of Narcan. Patient has second response a due to a similar situation due to morphine. Patient replaced on Narcan drip and was transferred to ICU. She is currently awake and alert and normotensive. 02/26: Required narcan gtt infusion last night for excessive somnolence after ingesting too much oral morphine in association with renal failure. Off narcan now, alert, awake. Objective Vital Signs Date Time Temp Pulse Resp B/P (MAP) Pulse Ox O2 Delivery O2 Flow Rate FiO2 02/26/17 06:35 97.9 79 12 115/60 100 Intake and Output 02/26/17 02/26/17 02/27/17 08:00 16:00 00:00 Intake Total 1020 ml Output Total 120 ml Balance 900 ml Result Diagram: 02/26/17 0646 02/26/17645 Other Results Laboratory Tests Test 02/25/17 13:00 Blood Gas Puncture Site RT RADIAL Blood Gas Patient Temperature 98.6 Blood Gas HCO3 20 mmol/L (22-26) Blood Gas Base Excess -5.1 mmol/L (-2-2) Blood Gas Oxygen Saturation 97 % (90-100) Arterial Blood pH 7.30 (7.380-7.420) Arterial Blood Partial Pressure CO2 42 mmHg (38-42) Arterial Blood Partial Pressure O2 298 mmHg (61-120) Arterial Blood Oxygen Content 14.8 Vol % (12.0-20.0) Arterial Blood Carboxyhemoglobin 1.6 % (0-4) Arterial Blood Methemoglobin 1.3 % (0-2) Blood Gas Hemoglobin 10.3 G/DL (12.0-16.0) Oxygen Delivery Device Non-Rebreathing Mask Blood Gas Liter Flow 15 L/M Blood Gas Inspired Oxygen 100 % Imaging Last Impressions Chest X-Ray 02/25/17 0000 Signed Impressions: Service Date/Time: Saturday, February 25, 2017 13:16 - CONCLUSION: 1. Mild perihilar infiltrates consistent with mild pulmonary vascular congestion versus pneumonia. Clinical correlation is recommended. 2. Cardiomegaly. Villa Calderon MD Lower Extremity Ultrasound 02/24/17 0000 Signed Impressions: Service Date/Time: February 11:34 - CONCLUSION: No evidence of deep venous thrombosis within the lower extremities. Villa Calderon MD Objective Remarks GENERAL: 46-year-old female, resting in bed in no acute distress SKIN: Warm and dry. HEAD: Atraumatic. Normocephalic. EYES: Pupils equal and round about 2 mm bilaterally and reactive. No scleral icterus. No injection or drainage. ENT: No nasal bleeding or discharge. Mucous membranes pink and moist. NECK: Trachea midline. Airway widely patent. CARDIOVASCULAR: Regular rate and rhythm. S1, S2.Without murmur RESPIRATORY: No accessory muscle use. Clear to auscultation. Breath sounds equal bilaterally. Good excursions. GASTROINTESTINAL: Abdomen soft, non-tender, nondistended. Hepatic and splenic margins not palpable. MUSCULOSKELETAL: Extremities with 2+ bilateral pitting edema. No obvious deformities. NEUROLOGICAL: Alert, conversant, O X 3. Follows commands Moving all 4 extremity spontaneously. A/P Assessment and Plan Neuro/Psych: Chronic pain syndrome Adjustment disorder NOS Seizure disorder History of left centrum semiovale CVA Discontinue morphine and released due to adverse effects Patient will be placed on a Narcan drip to maintain a goal of RA SS -2 Continue levetiracetam 500 mg by mouth twice a day Patient previously on fluoxetine 10 mg a mouth daily CV: Hypertension Dyslipidemia Chronic diastolic heart failure ejection fraction 55-60% 12/27 Currently on atorvastatin 80 mg by mouth daily for dyslipidemia Currently in Coreg 6.25 twice a day, hydralazine 50 mg 3 times a day and Isordil 40 mg by mouth daily. Hold if remains hypotensive. Echo 12/27 reveals EF 55-60%. PAP 40 mmHg. Resp: History of bronchial asthma As needed bronchodilator therapy with albuterol nebs every 2 hours. Nasal cannula to maintain saturations greater than equal to 92% GI: Diabetic gastroparesis Gastroesophageal reflux disease Currently on ADA diet Pantoprazole for GI prophylaxis Holding bowel regimen due to diarrhea : Maurer catheter to maintain accurate I's and O's in a critically ill patient Endo/Rheum: Diabetes mellitus type 1 with neuropathy/nephropathy and gastroparesis Lupus At home on insulin glargine 15 units at night. Along with sliding scale insulin. Currently on detemir 16 units daily with sliding scale insulin Renal: Chronic kidney disease stage IIIb currently 2.72 Currently being diuresed by nephrology. On diarrheal 5 mg daily and spinal act and 25 mill grams by mouth twice a day Baseline creatinine around 1.3 Heme: Leukocytosis Normocytic anemia Thrombocytopenia Monitor CBC daily. Follow trends No indications for transfusion of blood proximal to this time ID: C. difficile positive Cystitis currently on ceftriaxone day #4 History of MRSA Semen Dr. Stanton 02/20. Currently on vancomycin 250 mg by mouth every 6 hours Hospital started ceftriaxone for cystitis. Gram-positive bacteria MSK: Osteoarthritis Vitamin D deficiency FEN: Replace electrolytes as clinically indicated Access - Utilize peripheral IV. Central line if indicated Prophylaxis - GI - pantoprazole - DVT - SCD/heparin subcutaneous Overall impression: Ready to return to floor. D/C oral morphine. Daniel Harkins MD Feb 26, 2017 09:24
--- NOTE | 2017-02-26 09:38 | HHI.NPPN ---
Subjective General Problems: Anemia Renal Failure: Chronic, Acute, Stage III Interval History patient was transferred to ICU due to lethargy, possible oversedation with morphine. Given Narcan. Serum potassium is higher. Renal function is worse. Review of Systems General Constitutional: Fatigue General Remarks generalized weakness Cardiovascular Cardiac: Edema Gastrointestinal Gastrointestinal: Heartburn Objective Data Data Vital Signs Date Time Temp Pulse Resp B/P (MAP) Pulse Ox O2 Delivery O2 Flow Rate FiO2 02/26/17 08:00 97.8 79 12 116/56 (76) 96 02/26/17 07:30 80 02/26/17 06:35 97.9 79 12 115/60 100 02/26/17 05:05 97.7 74 12 101/50 100 02/26/17 04:49 97.6 75 15 103/55 100 02/26/17 04:46 97.9 74 15 105/54 100 02/26/17 04:00 97.9 74 12 101/50 (67) 100 02/26/17 02:53 97.7 72 14 104/51 100 02/26/17 02:34 97.3 71 14 99/55 100 02/26/17 00:00 95.7 62 11 83/44 (57) 100 02/26/17 00:00 62 02/25/17 12:53 94.1 77 15 112/57 (75) 99 02/25/17 12:10 60 -: 02/26/17 0646 02/26/17 0646 Physical Exam General Appearance: Comfortable, Anxious, Malnourished Throat Throat Exam: Oral Mucosa [place] & Moist Pulmonary Resp Exam: Clear Bilaterally, Breath Sounds Equal Cardiology CV Exam: Regular, Normal Sinus Rhythm Gastrointestinal/Abdomen GI Exam: Soft, Non-Tender, Bowel Sounds Present Musculoskeletal MS Exam: Joints Intact, Atrophy, Unable to Ambulate Integumentary Skin Exam: Warm, Dry Extremeties Extremities Exam: Pedal Pulses Palpable, Pitting Edema, Dependent Edema Neurologic Neuro Exam: Alert, Awake, Moving All Extremities Assessment/Plan Discussed Condition With: Patient Assessment Summary: REGAN/Acute Renal Failure, Anemia of CKD, Fluid/Volume Overload, Proteinuria, Hypertension Problem List: (1) CKD (chronic kidney disease), stage III ICD Codes: N18.3 - Chronic kidney disease, stage 3 (moderate) Status: Acute Plan: Baseline creatinine 1.8-2.2 Renal function is worse. Has developed hyperkalemia, stop Aldactone. Edema may be due to severe malnutrition and low albumin levels; 24 hour urine for protein quantification has been ordered but is not available Ordered TERE green with elevation of lower extremities Doppler to evaluate for DVT bilaterally was negative Avoid IVF, nephrotoxins Echo from December, Grade 1 diastolic dysfunction, EF 55-60% It is possible that she will need dialysis soon. (2) Anemia ICD Codes: D64.9 - Anemia Status: Acute Plan: Hb low, may require transfusion No evidence of iron deficiency last admission (3) Hypertension ICD Codes: I10 - Hypertension Status: Acute Plan: BP is low, hold antihypertensives. (4) C. difficile diarrhea ICD Codes: A04.7 - Enterocolitis due to Clostridium difficile Plan: recurrent; she is on oral vancomycin and Lactinex contact precautions taken (5) DM (diabetes mellitus) type I uncontrolled with renal manifestation ICD Codes: E10.29 - Uncontrolled type 1 diabetes mellitus with renal manifestations; E10.65 - Type 1 diabetes mellitus with hyperglycemia Status: Chronic Plan: Monitor glucose; goal 140-180 mg/dL while admitted Continue insulin therapy Plan Overall prognosis is poor, at high risk for morbidity and mortality Problem Qualifiers (1) Hypertension: Qualified Codes: I10 - Essential (primary) hypertension (2) DM (diabetes mellitus) type I uncontrolled with renal manifestation: Valdez Patterson MD Feb 26, 2017 09:38
[2017-02-26] MEDS: CHOLECALCIFEROL (VIT D3) 5000 UNIT CAP PO SCH (11:08)
[2017-02-26] MEDS: DRONABINOL 5 MG CAP PO SCH ×2 (11:08→16:00)
[2017-02-26] MEDS: CHLOROTHIAZIDE 250 MG TAB PO SCH (11:08)
[2017-02-26] MEDS: cefTRIAXone INJ 1,000 MG in SODIUM CHLORIDE 0.9% INJ 100 ML IV SCH (13:42)
[2017-02-26] MEDS: ACETAMINOPHEN/HYDROcodone 325 MG/5 MG TAB PO PRN ×2 (14:00→21:50)
[2017-02-26] MEDS: INSULIN GLARGINE 1,000 UNITS/10 ML VIAL SQ SCH (20:37)
[2017-02-27 00:43] VITALS: BP 117/62; PULSE 80; RESP 16; TEMP 97.2; O2SAT 95
[2017-02-27 06:18] LABS: AUTOMATED NEUTROPHIL # 16.5 TH/MM3 (1.8-7.7); BASOPHIL # 0.1 TH/MM3 (0-0.2); BASOPHIL % 0.3 % (0.0-2.0); HEMATOCRIT 30.8 % (35.0-46.0); LYMPH % 2.5 % (9.0-44.0); LYMPHOCYTE # 0.4 TH/MM3 (1.0-4.8); MEAN CORPUSCULAR HEMOGLOBIN 29.3 PG (27.0-34.0); MEAN CORPUSCULAR HGB CONC 32.5 % (32.0-36.0); MONO % 3.3 % (0.0-8.0); NEUT % 93.9 % (16.0-70.0); PLATELET COUNT 124 TH/MM3 (150-450); RED BLOOD COUNT 3.42 MIL/MM3 (4.00-5.30); RED CELL DISTRIBUTION WIDTH 15.7 % (11.6-17.2); WHITE BLOOD COUNT 17.6 TH/MM3 (4.0-11.0)
[2017-02-27 06:28] LABS: HEMO FLAGS AUTO DIFF
[2017-02-27 06:47] LABS: ALT (GPT) 272 U/L (10-53); ANION GAP 9 MEQ/L (5-15); AST (GOT) 51 U/L (15-37); BICARBONATE 25.9 MEQ/L (21.0-32.0); BLOOD UREA NITROGEN 65 MG/DL (7-18); CHLORIDE 111 MEQ/L (98-107); GLOMERULAR FILTRATION RATE 19 ML/MIN (>89); POTASSIUM 5.1 MEQ/L (3.5-5.1); SODIUM (NA) 146 MEQ/L (136-145)
[2017-02-27 06:50] LABS: ALKALINE PHOSPHATASE 366 U/L (45-117); TOTAL BILIRUBIN ADULT 0.5 MG/DL (0.2-1.0)
[2017-02-27 07:39] LABS: URINE TOTAL PROTEIN TIMED 121.3 MG/DL
[2017-02-27 08:00] VITALS: BP 147/77; PULSE 81; RESP 18; TEMP 96.1; O2SAT 95
[2017-02-27] MEDS: CHOLECALCIFEROL (VIT D3) 5000 UNIT CAP PO SCH (09:11)
[2017-02-27] MEDS: VANCOMYCIN 500 MG VIAL (FOR ORAL USE ONLY) PO SCH ×4 (09:11→20:46)
[2017-02-27] MEDS: LACTOBACILLUS ACIDOPHILUS TAB PO SCH ×3 (09:12→17:54)
[2017-02-27] MEDS: CHLOROTHIAZIDE 250 MG TAB PO SCH (09:12)
[2017-02-27] MEDS: ATORVASTATIN 80 MG TAB PO SCH (09:12)
[2017-02-27] MEDS: SODIUM CHLORIDE 0.9% FLUSH 10 ML FLUSH IV FLUSH SCH ×2 (09:12→20:48)
[2017-02-27] MEDS: levETIRAcetam 500 MG TAB PO SCH ×2 (09:12→20:45)
[2017-02-27] MEDS: INSULIN ASPART SUPPLEMENTAL SCALE SQ SCH ×4 (09:14→20:45)
[2017-02-27 09:32] LABS: BANDS 9 % (0-6); MYELOCYTES 1 % (0-0); NEUTROPHIL # MANUAL DIFF 17.2 TH/MM3 (1.8-7.7); OVALOCYTES 1+ (NORMAL); PLATELET ESTIMATE SMEAR LOW (NORMAL); PLATELET MORPHOLOGY NORMAL (NORMAL); POLYS (SEG NEUTROPHILS) 88 % (16-70); SCAN/DIFF FINAL DIFF MANUAL; WBC DIFF SAMPLE 100
--- NOTE | 2017-02-27 10:48 | HHI.PR ---
Subjective Remarks Slight worsening of renal function. LFTs are improving and hemoglobin level has improved. Patient has no new complaints other than chronic pain. Objective Vital Signs Date Time Temp Pulse Resp B/P (MAP) Pulse Ox O2 Delivery O2 Flow Rate FiO2 02/27/17 08:00 96.1 81 18 147/77 (100) 95 02/27/17 00:43 97.2 80 16 117/62 (80) 95 02/26/17 22:50 20 02/26/17 20:00 75 02/26/17 20:00 98.0 82 12 124/61 (82) 99 02/26/17 16:00 98.2 81 14 163/75 (104) 100 02/26/17 12:00 98.3 76 12 99/51 (67) 98 I/O 02/26/17 02/26/17 02/26/17 02/27/17 02/27/17 02/27/17 07:00 15:00 23:00 07:00 15:00 23:00 Intake Total 1020 ml 150 ml 300 ml Output Total 120 ml 300 ml 225 ml Balance 900 ml 150 ml 0 ml -225 ml Intake Oral 100 ml IV Total 150 ml 200 ml Packed Cells 800 ml Blood Product IV Normal Saline Flush 220 ml Output Urine Total 120 ml 300 ml 225 ml Stool Total 0 ml Result Diagram: 02/27/17 0602/27/17 0600 Objective Remarks GENERAL: NAD, A&Ox3 HEAD: Normocephalic. NECK: Supple, trachea midline. No lymphadenopathy. EYES: No scleral icterus. No injection or drainage. CARDIOVASCULAR: Regular rate and rhythm without murmurs, gallops, or rubs. RESPIRATORY: Breath sounds equal bilaterally. No accessory muscle use. GASTROINTESTINAL: Abdomen soft, non-tender, nondistended. MUSCULOSKELETAL: No cyanosis. Bilateral lower extremity swelling. SKIN: Warm and dry. NEURO: No focal neurological deficitis. A/P Problem List: (1) Lupus ICD Code: M32.9 - Systemic lupus erythematosus Status: Chronic (2) Hypertension ICD Code: I10 - Hypertension Status: Acute (3) Insulin dependent diabetes mellitus ICD Code: E11.9 - Insulin dependent diabetes mellitus; Z79.4 - [employer] ( current) use of insulin Status: Acute (4) Diabetic neuropathy ICD Code: E11.40 - Diabetic neuropathy Status: Acute (5) C. difficile diarrhea ICD Code: A04.7 - Enterocolitis due to Clostridium difficile (6) REGAN (acute kidney injury) ICD Code: N17.9 - Acute kidney failure, unspecified Status: Acute Assessment and Plan Assessment and Plan 46-year-old female admitted secondary to recurrence of C. difficile and bilateral lower extremity edema. Possible exacerbation of lupus. Follow renal function. Continue steroids. Monitor renal function. Monitor CBC. Labs reviewed. Labs ordered. Recurrent C. difficile colitis Continue by mouth vancomycin No diarrhea reported today Follow clinically Urinary tract infection Rocephin Follow cultures Probiotics Bilateral lower extremity edema Nephrotic syndrome Protein malnutrition/wasting Continue albumin and diuresis Nephrology following Diabetes mellitus type 2 Follow blood sugars Insulin sliding scale Diabetic diet History of lupus Autoimmunity Anemia of chronic disease Follow CBC Diastolic CHF Follow clinically Contributory to difficulty with diuresis Continue carvedilol Hypertension No change in baseline blood pressure treatments Follow blood pressures Lower extremity weakness Continue physical therapy DVT prophylaxis Lovenox on hold due to possible bleeding/anemia Discharge planning Will likely need SNF at discharge Problem Qualifiers (1) Hypertension: Qualified Codes: I10 - Essential (primary) hypertension Umesh Pandya MD Feb 27, 2017 10:48
[2017-02-27 12:00] VITALS: BP 166/81; PULSE 87; RESP 18; TEMP 96.5; O2SAT 93
--- NOTE | 2017-02-27 12:12 | HHI.NPPN ---
Subjective General Problems: Anemia Renal Failure: Chronic, Acute, Stage III Interval History she has been transferred out of the ICU. BP is slightly better. Chronically ill appearing lady. Review of Systems General Constitutional: Fatigue General Remarks generalized weakness Cardiovascular Cardiac: Edema Gastrointestinal Gastrointestinal: Heartburn Objective Data Data Vital Signs Date Time Temp Pulse Resp B/P (MAP) Pulse Ox O2 Delivery O2 Flow Rate FiO2 02/27/17 08:00 96.1 81 18 147/77 (100) 95 02/27/17 00:43 97.2 80 16 117/62 (80) 95 02/26/17 22:50 20 02/26/17 20:00 75 02/26/17 20:00 98.0 82 12 124/61 (82) 99 02/26/17 16:00 98.2 81 14 163/75 (104) 100 -: 02/27/17 0600 02/27/17 0600 Physical Exam General Appearance: Comfortable, Anxious, Malnourished Throat Throat Exam: Oral Mucosa [place] & Moist Pulmonary Resp Exam: Clear Bilaterally, Breath Sounds Equal Cardiology CV Exam: Regular, Normal Sinus Rhythm Gastrointestinal/Abdomen GI Exam: Soft, Non-Tender, Bowel Sounds Present Musculoskeletal MS Exam: Joints Intact, Atrophy, Unable to Ambulate Integumentary Skin Exam: Warm, Dry Extremeties Extremities Exam: Pedal Pulses Palpable, Pitting Edema, Dependent Edema Neurologic Neuro Exam: Alert, Awake, Moving All Extremities Assessment/Plan Discussed Condition With: Patient Assessment Summary: REGAN/Acute Renal Failure, Anemia of CKD, Fluid/Volume Overload, Proteinuria, Hypertension Problem List: (1) CKD (chronic kidney disease), stage III ICD Codes: N18.3 - Chronic kidney disease, stage 3 (moderate) Status: Acute Plan: Baseline creatinine 1.8-2.2 Renal function is worse. Because of hyperkalemia, I stopped Aldactone. Edema may be due to severe malnutrition and low albumin levels; 24 hour urine for protein quantification has been ordered but is not available Ordered TERE green with elevation of lower extremities Doppler to evaluate for DVT bilaterally was negative Avoid IVF, nephrotoxins Echo from December, Grade 1 diastolic dysfunction, EF 55-60% She has 1680 mg of protein in 24 hour urine collection, she does have significant proteinuria, but not in the nephrotic range. It is possible that she will need dialysis soon. (2) Anemia ICD Codes: D64.9 - Anemia Status: Acute Plan: Improved after blood transfusion. (3) Hypertension ICD Codes: I10 - Hypertension Status: Acute Plan: BP was low, continue to monitor. (4) C. difficile diarrhea ICD Codes: A04.7 - Enterocolitis due to Clostridium difficile Plan: recurrent; she is on oral vancomycin and Lactinex contact precautions taken (5) DM (diabetes mellitus) type I uncontrolled with renal manifestation ICD Codes: E10.29 - Uncontrolled type 1 diabetes mellitus with renal manifestations; E10.65 - Type 1 diabetes mellitus with hyperglycemia Status: Chronic Plan: Monitor glucose; goal 140-180 mg/dL while admitted Continue insulin therapy Plan Overall prognosis is poor, at high risk for morbidity and mortality Problem Qualifiers (1) Hypertension: Qualified Codes: I10 - Essential (primary) hypertension (2) DM (diabetes mellitus) type I uncontrolled with renal manifestation: Valdez Patterson MD Feb 27, 2017 12:12
[2017-02-27] MEDS: cefTRIAXone INJ 1,000 MG in SODIUM CHLORIDE 0.9% INJ 100 ML IV SCH (14:06)
[2017-02-27] MEDS: DRONABINOL 5 MG CAP PO SCH ×2 (14:06→16:00)
[2017-02-27 16:00] VITALS: BP 159/79; PULSE 89; RESP 20; TEMP 97.3; O2SAT 94
[2017-02-27 20:00] VITALS: BP 159/94; PULSE 89; RESP 18; TEMP 97.4; O2SAT 93
[2017-02-27] MEDS: INSULIN GLARGINE 1,000 UNITS/10 ML VIAL SQ SCH (20:44)
[2017-02-28] VITALS: BP 160/89; PULSE 83; RESP 18; TEMP 97.9; O2SAT 94
[2017-02-28 05:43] LABS: AUTOMATED NEUTROPHIL # 15.6 TH/MM3 (1.8-7.7); BASOPHIL # 0.1 TH/MM3 (0-0.2); BASOPHIL % 0.7 % (0.0-2.0); HEMATOCRIT 31.8 % (35.0-46.0); LYMPH % 3.9 % (9.0-44.0); LYMPHOCYTE # 0.7 TH/MM3 (1.0-4.8); MEAN CELL VOLUME 90.2 FL (80.0-100.0); MEAN CORPUSCULAR HEMOGLOBIN 29.3 PG (27.0-34.0); MEAN CORPUSCULAR HGB CONC 32.5 % (32.0-36.0); MONO % 6.9 % (0.0-8.0); NEUT % 88.5 % (16.0-70.0); PLATELET COUNT 123 TH/MM3 (150-450); RED BLOOD COUNT 3.53 MIL/MM3 (4.00-5.30); RED CELL DISTRIBUTION WIDTH 15.6 % (11.6-17.2); WHITE BLOOD COUNT 17.7 TH/MM3 (4.0-11.0)
[2017-02-28 05:51] LABS: HEMO FLAGS AUTO DIFF
[2017-02-28 05:57] LABS: ALT (GPT) 209 U/L (10-53); ANION GAP 8 MEQ/L (5-15); AST (GOT) 37 U/L (15-37); BLOOD UREA NITROGEN 65 MG/DL (7-18); CHLORIDE 112 MEQ/L (98-107); GLOMERULAR FILTRATION RATE 22 ML/MIN (>89); POTASSIUM 4.6 MEQ/L (3.5-5.1); SODIUM (NA) 146 MEQ/L (136-145)
[2017-02-28 05:59] LABS: ALKALINE PHOSPHATASE 382 U/L (45-117); TOTAL BILIRUBIN ADULT 0.5 MG/DL (0.2-1.0)
[2017-02-28 07:27] LABS: ACANTHOCYTES OCC (NORMAL); BANDS 6 % (0-6); MYELOCYTES 1 % (0-0); NEUTROPHIL # MANUAL DIFF 14.9 TH/MM3 (1.8-7.7); PLATELET ESTIMATE SMEAR LOW (NORMAL); PLATELET MORPHOLOGY NORMAL (NORMAL); POLYS (SEG NEUTROPHILS) 77 % (16-70); SCAN/DIFF FINAL DIFF MANUAL; WBC DIFF SAMPLE 100
[2017-02-28 08:00] VITALS: BP 165/79; PULSE 87; RESP 20; TEMP 97.3; O2SAT 95
[2017-02-28] MEDS: VANCOMYCIN 500 MG VIAL (FOR ORAL USE ONLY) PO SCH ×4 (08:46→22:36)
[2017-02-28] MEDS: LACTOBACILLUS ACIDOPHILUS TAB PO SCH ×3 (08:48→18:10)
[2017-02-28] MEDS: ATORVASTATIN 80 MG TAB PO SCH (08:48)
[2017-02-28] MEDS: predniSONE 20 MG TAB PO SCH (08:48)
[2017-02-28] MEDS: levETIRAcetam 500 MG TAB PO SCH ×2 (08:49→22:36)
[2017-02-28] MEDS: CHOLECALCIFEROL (VIT D3) 5000 UNIT CAP PO SCH (08:49)
[2017-02-28] MEDS: CHLOROTHIAZIDE 250 MG TAB PO SCH (08:49)
[2017-02-28] MEDS: INSULIN ASPART SUPPLEMENTAL SCALE SQ SCH ×4 (08:50→22:49)
[2017-02-28] MEDS: SODIUM CHLORIDE 0.9% FLUSH 10 ML FLUSH IV FLUSH SCH ×2 (08:50→22:36)
--- NOTE | 2017-02-28 10:39 | HHI.PR ---
Subjective Remarks Hemoglobin at 10.4. Creatinine at 2.82. LFTs are decreasing. Diarrhea is improving. All parameters are improved today. This will be her first day where she has global improvement. If this continues over the next 2 days we'll consider discharge. Objective Vital Signs Date Time Temp Pulse Resp B/P (MAP) Pulse Ox O2 Delivery O2 Flow Rate FiO2 02/28/17 08:00 97.3 87 20 165/79 (107) 95 02/28/17 00:00 97.9 83 18 160/89 (112) 94 02/27/17 20:00 97.4 89 18 159/94 (115) 93 02/27/17 16:00 97.3 89 20 159/79 (105) 94 02/27/17 12:00 96.5 87 18 166/81 (109) 93 I/O 02/27/17 02/27/17 02/27/17 02/28/17 02/28/17 02/28/17 07:00 15:00 23:00 07:00 15:00 23:00 Intake Total 840 ml Output Total 225 ml 1400 ml 700 ml Balance -225 ml -560 ml -700 ml Intake Oral 840 ml Output Urine Total 225 ml 600 ml 700 ml Stool Total 800 ml # Bowel Movements 3 Result Diagram: 02/28/17 0520 02/28/17 0520 Objective Remarks GENERAL: NAD, A&Ox3 HEAD: Normocephalic. NECK: Supple, trachea midline. No lymphadenopathy. EYES: No scleral icterus. No injection or drainage. CARDIOVASCULAR: Regular rate and rhythm without murmurs, gallops, or rubs. RESPIRATORY: Breath sounds equal bilaterally. No accessory muscle use. GASTROINTESTINAL: Abdomen soft, non-tender, nondistended. MUSCULOSKELETAL: No cyanosis. Bilateral lower extremity swelling. SKIN: Warm and dry. NEURO: No focal neurological deficitis. A/P Problem List: (1) Lupus ICD Code: M32.9 - Systemic lupus erythematosus Status: Chronic (2) Hypertension ICD Code: I10 - Hypertension Status: Acute (3) Insulin dependent diabetes mellitus ICD Code: E11.9 - Insulin dependent diabetes mellitus; Z79.4 - [employer] terminal [employer] ( current) use of insulin Status: Acute (4) Diabetic neuropathy ICD Code: E11.40 - Diabetic neuropathy Status: Acute (5) C. difficile diarrhea ICD Code: A04.7 - Enterocolitis due to Clostridium difficile (6) REGAN (acute kidney injury) ICD Code: N17.9 - Acute kidney failure, unspecified Status: Acute Assessment and Plan Assessment and Plan 46-year-old female admitted secondary to recurrence of C. difficile and bilateral lower extremity edema. Possible exacerbation of lupus. Improving today. Continue steroids. Monitor renal function. Monitor CBC. Labs reviewed. Labs ordered. Tentative discharge on 03/02/17, if all parameters continued to show improvement and stability. She will likely need a care home facility at discharge. Recurrent C. difficile colitis Continue by mouth vancomycin No diarrhea reported today Follow clinically Urinary tract infection Rocephin Follow cultures Probiotics Bilateral lower extremity edema Nephrotic syndrome Protein malnutrition/wasting Continue albumin and diuresis Nephrology following Diabetes mellitus type 2 Follow blood sugars Insulin sliding scale Diabetic diet History of lupus Autoimmunity Anemia of chronic disease Follow CBC Diastolic CHF Follow clinically Contributory to difficulty with diuresis Continue carvedilol Hypertension No change in baseline blood pressure treatments Follow blood pressures Lower extremity weakness Continue physical therapy DVT prophylaxis Lovenox on hold due to possible bleeding/anemia Discharge planning Will likely need SNF at discharge Problem Qualifiers (1) Hypertension: Qualified Codes: I10 - Essential (primary) hypertension Umesh Pandya MD Feb 28, 2017 10:39
[2017-02-28 12:00] VITALS: BP 175/90; PULSE 101; RESP 21; TEMP 97.8; O2SAT 93
--- NOTE | 2017-02-28 12:09 | HHI.NPPN ---
Subjective General Problems: Anemia Renal Failure: Chronic, Acute, Stage III Interval History Renal function has improved. Appears weak. Good urine output. Review of Systems General Constitutional: Fatigue General Remarks generalized weakness Cardiovascular Cardiac: Edema Gastrointestinal Gastrointestinal: Heartburn Objective Data Data Vital Signs Date Time Temp Pulse Resp B/P (MAP) Pulse Ox O2 Delivery O2 Flow Rate FiO2 02/28/17 08:00 97.3 87 20 165/79 (107) 95 02/28/17 00:00 97.9 83 18 160/89 (112) 94 02/27/17 20:00 97.4 89 18 159/94 (115) 93 02/27/17 16:00 97.3 89 20 159/79 (105) 94 02/27/17 12:00 96.5 87 18 166/81 (109) 93 -: 02/28/17 0520 02/28/17 0520 Physical Exam General Appearance: Comfortable, Anxious, Malnourished Throat Throat Exam: Oral Mucosa [place] & Moist Pulmonary Resp Exam: Clear Bilaterally, Breath Sounds Equal Cardiology CV Exam: Regular, Normal Sinus Rhythm Gastrointestinal/Abdomen GI Exam: Soft, Non-Tender, Bowel Sounds Present Musculoskeletal MS Exam: Joints Intact, Atrophy, Unable to Ambulate Integumentary Skin Exam: Warm, Dry Extremeties Extremities Exam: Pedal Pulses Palpable, Pitting Edema, Dependent Edema Neurologic Neuro Exam: Alert, Awake, Moving All Extremities Assessment/Plan Discussed Condition With: Patient Assessment Summary: REGAN/Acute Renal Failure, Anemia of CKD, Fluid/Volume Overload, Proteinuria, Hypertension Problem List: (1) CKD (chronic kidney disease), stage III ICD Codes: N18.3 - Chronic kidney disease, stage 3 (moderate) Status: Acute Plan: Baseline creatinine 1.8-2.2 Renal function has improved. Because of hyperkalemia, I stopped Aldactone. Edema may be due to severe malnutrition and low albumin levels. Doppler to evaluate for DVT bilaterally was negative Avoid IVF, nephrotoxins Echo from December, Grade 1 diastolic dysfunction, EF 55-60% She has 1680 mg of protein in 24 hour urine collection, she does have significant proteinuria, but not in the nephrotic range. No immediate need for dialysis. Continue Diuril. (2) Anemia ICD Codes: D64.9 - Anemia Status: Acute Plan: Improved after blood transfusion. (3) Hypertension ICD Codes: I10 - Hypertension Status: Acute Plan: BP was low, continue to monitor. (4) C. difficile diarrhea ICD Codes: A04.7 - Enterocolitis due to Clostridium difficile Plan: recurrent; she is on oral vancomycin and Lactinex contact precautions taken (5) DM (diabetes mellitus) type I uncontrolled with renal manifestation ICD Codes: E10.29 - Uncontrolled type 1 diabetes mellitus with renal manifestations; E10.65 - Type 1 diabetes mellitus with hyperglycemia Status: Chronic Plan: Monitor glucose; goal 140-180 mg/dL while admitted Continue insulin therapy Problem Qualifiers (1) Hypertension: Qualified Codes: I10 - Essential (primary) hypertension (2) DM (diabetes mellitus) type I uncontrolled with renal manifestation: Valdez Patterson MD Feb 28, 2017 11:36
[2017-02-28] MEDS: cefTRIAXone INJ 1,000 MG in SODIUM CHLORIDE 0.9% INJ 100 ML IV SCH (13:01)
[2017-02-28] MEDS: DRONABINOL 5 MG CAP PO SCH ×2 (13:08→18:10)
[2017-02-28 16:00] VITALS: BP 162/87; PULSE 83; RESP 16; TEMP 97.4; O2SAT 94
[2017-02-28 20:00] VITALS: BP 187/90; PULSE 89; RESP 18; TEMP 99.3; O2SAT 93
[2017-02-28] MEDS: INSULIN GLARGINE 1,000 UNITS/10 ML VIAL SQ SCH (22:49)
[2017-03-01] VITALS: BP 144/86; PULSE 81; RESP 18; TEMP 98.2; O2SAT 95
[2017-03-01 07:50] LABS: AUTOMATED NEUTROPHIL # 14.1 TH/MM3 (1.8-7.7); BASOPHIL % 0.1 % (0.0-2.0); EOSINOPHIL % 0.3 % (0.0-4.0); HEMATOCRIT 33.6 % (35.0-46.0); LYMPH % 6.7 % (9.0-44.0); LYMPHOCYTE # 1.1 TH/MM3 (1.0-4.8); MEAN CORPUSCULAR HEMOGLOBIN 30.1 PG (27.0-34.0); MONO % 7.7 % (0.0-8.0); NEUT % 85.2 % (16.0-70.0); PLATELET COUNT 115 TH/MM3 (150-450); RED CELL DISTRIBUTION WIDTH 14.9 % (11.6-17.2); WHITE BLOOD COUNT 16.5 TH/MM3 (4.0-11.0)
[2017-03-01 07:54] LABS: HEMO FLAGS AUTO DIFF
[2017-03-01 08:00] VITALS: BP 178/92; PULSE 77; RESP 19; TEMP 97.7; O2SAT 94
[2017-03-01] MEDS: INSULIN ASPART SUPPLEMENTAL SCALE SQ SCH ×4 (08:00→21:52)
[2017-03-01] MEDS: CHLOROTHIAZIDE 250 MG TAB PO SCH (08:27)
[2017-03-01] MEDS: levETIRAcetam 500 MG TAB PO SCH ×2 (08:27→21:07)
[2017-03-01] MEDS: VANCOMYCIN 500 MG VIAL (FOR ORAL USE ONLY) PO SCH ×4 (08:27→21:07)
[2017-03-01] MEDS: CHOLECALCIFEROL (VIT D3) 5000 UNIT CAP PO SCH (08:27)
[2017-03-01] MEDS: SODIUM CHLORIDE 0.9% FLUSH 10 ML FLUSH IV FLUSH SCH ×2 (08:28→21:07)
[2017-03-01] MEDS: ATORVASTATIN 80 MG TAB PO SCH (08:28)
[2017-03-01] MEDS: LACTOBACILLUS ACIDOPHILUS TAB PO SCH ×3 (08:28→17:57)
[2017-03-01] MEDS: predniSONE 20 MG TAB PO SCH (08:28)
[2017-03-01 08:30] LABS: ALKALINE PHOSPHATASE 363 U/L (45-117); ALT (GPT) 164 U/L (10-53); ANION GAP 7 MEQ/L (5-15); AST (GOT) 26 U/L (15-37); BICARBONATE 25.8 MEQ/L (21.0-32.0); BLOOD UREA NITROGEN 56 MG/DL (7-18); CHLORIDE 114 MEQ/L (98-107); GLOMERULAR FILTRATION RATE 30 ML/MIN (>89); SODIUM (NA) 147 MEQ/L (136-145); TOTAL BILIRUBIN ADULT 0.5 MG/DL (0.2-1.0)
[2017-03-01 09:06] LABS: BANDS 3 % (0-6); METAMYELOCYTES 1 % (0-1); MYELOCYTES 2 % (0-0); NEUTROPHIL # MANUAL DIFF 13.9 TH/MM3 (1.8-7.7); POLYS (SEG NEUTROPHILS) 78 % (16-70); WBC DIFF SAMPLE 100
[2017-03-01 09:07] LABS: OVALOCYTES 1+ (NORMAL); PLATELET ESTIMATE SMEAR LOW (NORMAL); PLATELET MORPHOLOGY NORMAL (NORMAL); SCAN/DIFF FINAL DIFF MANUAL
--- NOTE | 2017-03-01 09:57 | HHI.PR ---
Subjective Remarks Hgb is up at 11.1. Cr is down at 2.12 (better than baseline). Albumin is a 2.7. LFTs improving through time. No new complaints from the patient. Objective Vital Signs Date Time Temp Pulse Resp B/P (MAP) Pulse Ox O2 Delivery O2 Flow Rate FiO2 03/01/17 08:00 97.7 77 19 178/92 (120) 94 03/01/17 00:00 98.2 81 18 144/86 (105) 95 02/28/17 20:00 99.3 89 18 187/90 (122) 93 02/28/17 16:00 97.4 83 16 162/87 (112) 94 02/28/17 12:00 97.8 101 21 175/90 (118) 93 I/O 02/28/17 02/28/17 02/28/17 03/01/17 03/01/17 03/01/17 07:00 15:00 23:00 07:00 15:00 23:00 Intake Total 1200 ml 240 ml Output Total 700 ml 900 ml Balance -700 ml 1200 ml -660 ml Intake Oral 1200 ml 240 ml Output Urine Total 700 ml 900 ml # Voids 1 # Bowel Movements 3 Result Diagram: 03/01/17 0535 03/01/17 0535 Objective Remarks GENERAL: NAD, A&Ox3 HEAD: Normocephalic. NECK: Supple, trachea midline. No lymphadenopathy. EYES: No scleral icterus. No injection or drainage. CARDIOVASCULAR: Regular rate and rhythm without murmurs, gallops, or rubs. RESPIRATORY: Breath sounds equal bilaterally. No accessory muscle use. GASTROINTESTINAL: Abdomen soft, non-tender, nondistended. MUSCULOSKELETAL: No cyanosis. Bilateral lower extremity swelling. SKIN: Warm and dry. NEURO: No focal neurological deficitis. A/P Problem List: (1) Lupus ICD Code: M32.9 - Systemic lupus erythematosus Status: Chronic (2) Hypertension ICD Code: I10 - Hypertension Status: Acute (3) Insulin dependent diabetes mellitus ICD Code: E11.9 - Insulin dependent diabetes mellitus; Z79.4 - skilled nursing ( current) use of insulin Status: Acute (4) Diabetic neuropathy ICD Code: E11.40 - Diabetic neuropathy Status: Acute (5) C. difficile diarrhea ICD Code: A04.7 - Enterocolitis due to Clostridium difficile (6) REGAN (acute kidney injury) ICD Code: N17.9 - Acute kidney failure, unspecified Status: Acute Assessment and Plan Assessment and Plan 46-year-old female admitted secondary to recurrence of C. difficile and bilateral lower extremity edema. Possible exacerbation of lupus. Follow labs. Labs ordered. Hold albumin. Recurrent C. difficile colitis Continue by mouth vancomycin till 03/05/17 No diarrhea reported today Follow clinically Urinary tract infection Rocephin completed. Follow cultures Probiotics Bilateral lower extremity edema Nephrotic syndrome Protein malnutrition/wasting Continue albumin and diuresis Nephrology following Diabetes mellitus type 2 Follow blood sugars Insulin sliding scale Diabetic diet History of lupus Autoimmunity Anemia of chronic disease Follow CBC Diastolic CHF Follow clinically Contributory to difficulty with diuresis Continue carvedilol Hypertension No change in baseline blood pressure treatments Follow blood pressures Lower extremity weakness Continue physical therapy DVT prophylaxis Lovenox on hold due to possible bleeding/anemia Discharge planning Will likely need SNF at discharge Problem Qualifiers (1) Hypertension: Qualified Codes: I10 - Essential (primary) hypertension Umesh Pandya MD Mar 01, 2017 09:57
[2017-03-01] MEDS: DRONABINOL 5 MG CAP PO SCH ×2 (11:29→17:57)
[2017-03-01 12:00] VITALS: BP 188/93; PULSE 90; RESP 19; TEMP 97.6; O2SAT 94
[2017-03-01 16:00] VITALS: BP 122/58; PULSE 91; RESP 16; TEMP 97; O2SAT 97
--- NOTE | 2017-03-01 16:37 | HHI.NPPN ---
Subjective General Problems: Anemia Renal Failure: Chronic, Acute, Stage III Interval History Appears weak. Not motivated. Renal function is improving. Review of Systems General Constitutional: Fatigue General Remarks generalized weakness Cardiovascular Cardiac: Edema Gastrointestinal Gastrointestinal: Heartburn Objective Data Data Vital Signs Date Time Temp Pulse Resp B/P (MAP) Pulse Ox O2 Delivery O2 Flow Rate FiO2 03/01/17 16:00 97.0 91 16 122/58 (79) 97 03/01/17 12:00 97.6 90 19 188/93 (124) 94 03/01/17 08:00 97.7 77 19 178/92 (120) 94 03/01/17 00:00 98.2 81 18 144/86 (105) 95 02/28/17 20:00 99.3 89 18 187/90 (122) 93 -: 03/01/17 0535 03/01/17 0535 Physical Exam General Appearance: Comfortable, Anxious, Malnourished Throat Throat Exam: Oral Mucosa [place] & Moist Pulmonary Resp Exam: Clear Bilaterally, Breath Sounds Equal Cardiology CV Exam: Regular, Normal Sinus Rhythm Gastrointestinal/Abdomen GI Exam: Soft, Non-Tender, Bowel Sounds Present Musculoskeletal MS Exam: Joints Intact, Atrophy, Unable to Ambulate Integumentary Skin Exam: Warm, Dry Extremeties Extremities Exam: Pedal Pulses Palpable, Pitting Edema, Dependent Edema Extremeties Remarks edema has improved. Neurologic Neuro Exam: Alert, Awake, Moving All Extremities Assessment/Plan Discussed Condition With: Patient Assessment Summary: REGAN/Acute Renal Failure, Anemia of CKD, Fluid/Volume Overload, Proteinuria, Hypertension Problem List: (1) CKD (chronic kidney disease), stage III ICD Codes: N18.3 - Chronic kidney disease, stage 3 (moderate) Status: Acute Plan: Baseline creatinine 1.8-2.2 Renal function has improved. Because of hyperkalemia, I stopped Aldactone. Edema may be due to severe malnutrition and low albumin levels. Doppler to evaluate for DVT bilaterally was negative Avoid IVF, nephrotoxins Echo from December, Grade 1 diastolic dysfunction, EF 55-60% She has 1680 mg of protein in 24 hour urine collection, she does have significant proteinuria, but not in the nephrotic range. Continue Diuril. (2) Anemia ICD Codes: D64.9 - Anemia Status: Acute Plan: Improved after blood transfusion. (3) Hypertension ICD Codes: I10 - Hypertension Status: Acute Plan: BP was low, continue to monitor. (4) C. difficile diarrhea ICD Codes: A04.7 - Enterocolitis due to Clostridium difficile Plan: recurrent; she is on oral vancomycin and Lactinex contact precautions taken (5) DM (diabetes mellitus) type I uncontrolled with renal manifestation ICD Codes: E10.29 - Uncontrolled type 1 diabetes mellitus with renal manifestations; E10.65 - Type 1 diabetes mellitus with hyperglycemia Status: Chronic Plan: Monitor glucose; goal 140-180 mg/dL while admitted Continue insulin therapy (6) Hyperosmolality and hypernatremia ICD Codes: E87.0 - Hyperosmolality and hypernatremia Plan: Encourage oral water intake. Use Diuril for diuresis. Problem Qualifiers (1) Hypertension: Qualified Codes: I10 - Essential (primary) hypertension (2) DM (diabetes mellitus) type I uncontrolled with renal manifestation: Valdez Patterson MD Mar 01, 2017 16:37
[2017-03-01 20:00] VITALS: BP 173/86; PULSE 92; RESP 17; TEMP 98.3; O2SAT 96
[2017-03-01] MEDS: INSULIN GLARGINE 1,000 UNITS/10 ML VIAL SQ SCH (21:52)
[2017-03-02] VITALS: BP 141/76; PULSE 86; RESP 17; TEMP 97.8; O2SAT 97
[2017-03-02 07:16] LABS: BASOPHIL # 0.1 TH/MM3 (0-0.2); BASOPHIL % 0.7 % (0.0-2.0); EOSINOPHIL # 0.1 TH/MM3 (0-0.4); EOSINOPHIL % 0.8 % (0.0-4.0); HEMATOCRIT 36.5 % (35.0-46.0); LYMPHOCYTE # 1.4 TH/MM3 (1.0-4.8); MEAN CELL VOLUME 91.1 FL (80.0-100.0); MEAN CORPUSCULAR HEMOGLOBIN 29.1 PG (27.0-34.0); MONO % 7.8 % (0.0-8.0); NEUT % 81.7 % (16.0-70.0); PLATELET COUNT 95 TH/MM3 (150-450); RED BLOOD COUNT 4.01 MIL/MM3 (4.00-5.30); RED CELL DISTRIBUTION WIDTH 15.5 % (11.6-17.2)
[2017-03-02 07:29] LABS: HEMO FLAGS AUTO DIFF
[2017-03-02 07:44] LABS: ANION GAP 6 MEQ/L (5-15); AST (GOT) 25 U/L (15-37); BICARBONATE 28.1 MEQ/L (21.0-32.0); BLOOD UREA NITROGEN 54 MG/DL (7-18); CHLORIDE 118 MEQ/L (98-107); GLOMERULAR FILTRATION RATE 35 ML/MIN (>89); POTASSIUM 4.1 MEQ/L (3.5-5.1); SODIUM (NA) 152 MEQ/L (136-145)
[2017-03-02 07:47] LABS: ALKALINE PHOSPHATASE 338 U/L (45-117); ALT (GPT) 106 U/L (10-53); TOTAL BILIRUBIN ADULT 0.7 MG/DL (0.2-1.0)
[2017-03-02 08:00] VITALS: BP 188/91; PULSE 90; RESP 17; TEMP 98.1; O2SAT 93
[2017-03-02] MEDS: INSULIN ASPART SUPPLEMENTAL SCALE SQ SCH ×4 (08:00→21:00)
[2017-03-02 08:35] LABS: BANDS 3 % (0-6); MYELOCYTES 1 % (0-0); NEUTROPHIL # MANUAL DIFF 12.3 TH/MM3 (1.8-7.7); POLYS (SEG NEUTROPHILS) 73 % (16-70); WBC DIFF SAMPLE 100
[2017-03-02 08:36] LABS: OVALOCYTES 1+ (NORMAL); PLATELET ESTIMATE SMEAR LOW (NORMAL); PLATELET MORPHOLOGY NORMAL (NORMAL); SCAN/DIFF FINAL DIFF MANUAL
[2017-03-02] MEDS: ATORVASTATIN 80 MG TAB PO SCH (08:47)
[2017-03-02] MEDS: VANCOMYCIN 500 MG VIAL (FOR ORAL USE ONLY) PO SCH ×4 (08:47→21:04)
[2017-03-02] MEDS: CHLOROTHIAZIDE 250 MG TAB PO SCH (08:48)
[2017-03-02] MEDS: SODIUM CHLORIDE 0.9% FLUSH 10 ML FLUSH IV FLUSH SCH ×2 (08:48→21:00)
[2017-03-02] MEDS: levETIRAcetam 500 MG TAB PO SCH ×2 (08:48→21:04)
[2017-03-02] MEDS: LACTOBACILLUS ACIDOPHILUS TAB PO SCH ×3 (08:48→17:19)
[2017-03-02] MEDS: CHOLECALCIFEROL (VIT D3) 5000 UNIT CAP PO SCH (08:48)
[2017-03-02] MEDS ORDERED: predniSONE 5 MG TAB PO SCH (09:00)
[2017-03-02] MEDS ORDERED: predniSONE 20 MG TAB PO SCH (09:00)
--- NOTE | 2017-03-02 10:55 | HHI.PR ---
Subjective Remarks Hemoglobin stable. Creatinine today is 1.5 which is continued improvement. Decreasing LFTs. Albumin 2.4. Patient reports diarrhea. She has been on by mouth vancomycin. Objective Vital Signs Date Time Temp Pulse Resp B/P (MAP) Pulse Ox O2 Delivery O2 Flow Rate FiO2 03/02/17 08:00 98.1 90 17 188/91 (123) 93 03/02/17 00:00 97.8 86 17 141/76 (97) 97 03/01/17 20:00 98.3 92 17 173/86 (115) 96 03/01/17 16:00 97.0 91 16 122/58 (79) 97 03/01/17 12:00 97.6 90 19 188/93 (124) 94 I/O 03/01/17 03/01/17 03/01/17 03/02/17 03/02/17 03/02/17 07:00 15:00 23:00 07:00 15:00 23:00 Intake Total 240 ml 400 ml 240 ml Output Total 900 ml Balance -660 ml 400 ml 240 ml Intake Oral 240 ml 400 ml 240 ml Output Urine Total 900 ml # Voids 10 4 # Bowel Movements 1 4 Result Diagram: 03/02/17 0648 03/02/17 0648 Objective Remarks GENERAL: NAD, A&Ox3 HEAD: Normocephalic. NECK: Supple, trachea midline. No lymphadenopathy. EYES: No scleral icterus. No injection or drainage. CARDIOVASCULAR: Regular rate and rhythm without murmurs, gallops, or rubs. RESPIRATORY: Breath sounds equal bilaterally. No accessory muscle use. GASTROINTESTINAL: Abdomen soft, non-tender, nondistended. MUSCULOSKELETAL: No cyanosis. Bilateral lower extremity swelling. SKIN: Warm and dry. NEURO: No focal neurological deficitis. 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 difficile diarrhea ICD Code: A04.7 - Enterocolitis due to Clostridium difficile (6) REGAN (acute kidney injury) ICD Code: N17.9 - Acute kidney failure, unspecified Status: Acute Assessment and Plan Assessment and Plan 46-year-old female admitted secondary to recurrence of C. difficile and bilateral lower extremity edema. Continue to monitor labs. Repeat C. difficile screen. Add by mouth Flagyl to by mouth vancomycin. Monitor for improvement in symptoms. Recurrent C. difficile colitis Continue by mouth vancomycin till 03/05/17 No diarrhea reported today Follow clinically Urinary tract infection Rocephin completed. Follow cultures Probiotics Bilateral lower extremity edema Nephrotic syndrome Protein malnutrition/wasting Continue albumin and diuresis Nephrology following Diabetes mellitus type 2 Follow blood sugars Insulin sliding scale Diabetic diet History of lupus Autoimmunity Anemia of chronic disease Follow CBC Diastolic CHF Follow clinically Contributory to difficulty with diuresis Continue carvedilol Hypertension No change in baseline blood pressure treatments Follow blood pressures Lower extremity weakness Continue physical therapy DVT prophylaxis Lovenox on hold due to possible bleeding/anemia Discharge planning Will likely need SNF at discharge Problem Qualifiers (1) Hypertension: Qualified Codes: I10 - Essential (primary) hypertension Umesh Pandya MD Mar 02, 2017 10:54
--- NOTE | 2017-03-02 11:36 | HHI.NPPN ---
Subjective General Problems: Anemia Renal Failure: Chronic, Acute, Stage III Interval History She continues to lay in bed unmotivated for activity of any kind. Minimal diarrhea per the nurse. Renal function is better but hypernatremia is worse. (Eva Marcelo) Review of Systems General Constitutional: Fatigue General Remarks generalized weakness (Eva Marcelo) Cardiovascular Cardiac: Edema (Eva Marcelo) Gastrointestinal Gastrointestinal: Heartburn (Eva Marcelo) Objective Data Data Vital Signs Date Time Temp Pulse Resp B/P (MAP) Pulse Ox O2 Delivery O2 Flow Rate FiO2 03/02/17 08:00 98.1 90 17 188/91 (123) 93 03/02/17 00:00 97.8 86 17 141/76 (97) 97 03/01/17 20:00 98.3 92 17 173/86 (115) 96 03/01/17 16:00 97.0 91 16 122/58 (79) 97 03/01/17 12:00 97.6 90 19 188/93 (124) 94 (Eva Marcelo) -: 03/02/17 0648 03/02/17 0648 Imaging Last Impressions Chest X-Ray 02/25/17 0000 Signed Impressions: Service Date/Time: Saturday, February 25, 2017 22:51 - CONCLUSION: 1. Left IJ central venous catheter projects over the central venous system. No pneumothorax. 2. Vascular congestion appears to have improved but there are still patchy areas of infiltrate predominantly in the right upper lung and left perihilar distribution. Genaro Key MD Lower Extremity Ultrasound 02/24/17 0000 Signed Impressions: Service Date/Time: February 11:34 - CONCLUSION: No evidence of deep venous thrombosis within the lower extremities. Villa Calderon MD (Eva Marcelo) Physical Exam General Appearance: Comfortable, Malnourished (Eva Marcelo) Throat Throat Exam: Oral Mucosa [place] & Moist (Eva Marcelo) Pulmonary Resp Exam: Clear Bilaterally, Breath Sounds Equal (Eva Marcelo) Cardiology CV Exam: Regular, Normal Sinus Rhythm (Eva Marcelo) Gastrointestinal/Abdomen GI Exam: Soft, Non-Tender, Bowel Sounds Present (Eva Marcelo) Musculoskeletal MS Exam: Joints Intact, Atrophy, Unable to Ambulate (Eva Marcelo) Integumentary Skin Exam: Warm, Dry (Eva Marcelo) Extremeties Extremities Exam: Pedal Pulses Palpable, Pitting Edema, Dependent Edema (Eva Marcelo) Neurologic Neuro Exam: Alert, Awake, Moving All Extremities (Eva Marcelo) Assessment/Plan Discussed Condition With: Patient Discussed Condition Comment Staff nurse Assessment Summary: REGAN/Acute Renal Failure, Anemia of CKD, Fluid/Volume Overload, Proteinuria, Hypertension Problem List: (1) CKD (chronic kidney disease), stage III ICD Codes: N18.3 - Chronic kidney disease, stage 3 (moderate) Status: Acute Plan: Baseline creatinine 1.8-2.2 Renal function is improving, now at baseline. Repeat labs in AM IVF started for hypernatremia, avoid nephrotoxic agents. Edema may be due to severe malnutrition and low albumin levels. Doppler to evaluate for DVT bilaterally was negative. She has 1680 mg of protein in 24 hour urine collection, she does have significant proteinuria, but not in the nephrotic range. Echo from December, Grade 1 diastolic dysfunction, EF 55-60% Continue Diuril for diureses (2) Anemia ICD Codes: D64.9 - Anemia Status: Acute Plan: Improved after blood transfusion. Follow hemoglobin. (3) Hypertension ICD Codes: I10 - Hypertension Status: Acute Plan: continue ordered medications (4) C. difficile diarrhea ICD Codes: A04.7 - Enterocolitis due to Clostridium difficile Plan: recurrent; she is on oral vancomycin and Lactinex contact precautions taken (5) DM (diabetes mellitus) type I uncontrolled with renal manifestation ICD Codes: E10.29 - Uncontrolled type 1 diabetes mellitus with renal manifestations; E10.65 - Type 1 diabetes mellitus with hyperglycemia Status: Chronic Plan: Monitor glucose; goal 140-180 mg/dL while admitted Continue insulin therapy (6) Hyperosmolality and hypernatremia ICD Codes: E87.0 - Hyperosmolality and hypernatremia Plan: Encouraged oral water intake. Use Diuril for diuresis. Start / NS. Plan She needs aggressive PT/OT. Seems very unmotivated. (Eva Marcelo) Problem List: (1) CKD (chronic kidney disease), stage III ICD Codes: N18.3 - Chronic kidney disease, stage 3 (moderate) Status: Acute Plan: Baseline creatinine 1.8-2.2 Renal function is improving, now at baseline. Repeat labs in AM IVF started for hypernatremia, avoid nephrotoxic agents. Edema may be due to severe malnutrition and low albumin levels. Doppler to evaluate for DVT bilaterally was negative. She has 1680 mg of protein in 24 hour urine collection, she does have significant proteinuria, but not in the nephrotic range. Echo from December, Grade 1 diastolic dysfunction, EF 55-60% Continue Diuril for diureses (2) Anemia ICD Codes: D64.9 - Anemia Status: Acute Plan: Improved after blood transfusion. Follow hemoglobin. (3) Hypertension ICD Codes: I10 - Hypertension Status: Acute Plan: continue ordered medications (4) C. difficile diarrhea ICD Codes: A04.7 - Enterocolitis due to Clostridium difficile Plan: recurrent; she is on oral vancomycin and Lactinex contact precautions taken (5) DM (diabetes mellitus) type I uncontrolled with renal manifestation ICD Codes: E10.29 - Uncontrolled type 1 diabetes mellitus with renal manifestations; E10.65 - Type 1 diabetes mellitus with hyperglycemia Status: Chronic Plan: Monitor glucose; goal 140-180 mg/dL while admitted Continue insulin therapy (6) Hyperosmolality and hypernatremia ICD Codes: E87.0 - Hyperosmolality and hypernatremia Plan: Encouraged oral water intake. Use Diuril for diuresis. Start 1/4 NS. Plan patient was seen and examined. Agree with above assessment and plan. (Valdez Patterson MD) Problem Qualifiers (1) Hypertension: Qualified Codes: I10 - Essential (primary) hypertension (2) DM (diabetes mellitus) type I uncontrolled with renal manifestation: Eva Marcelo Mar 02, 2017 11:36 Valdez Patterson MD Mar 03, 2017 08:29
[2017-03-02 12:00] VITALS: BP 188/98; PULSE 93; RESP 16; TEMP 97.6; O2SAT 93
[2017-03-02] MEDS: DRONABINOL 5 MG CAP PO SCH ×2 (12:04→17:19)
[2017-03-02] MEDS: SODIUM CHLORIDE 23.4% INJ 38.5 MEQ in WATER STERILE FOR INJ 1,000 ML IV SCH (12:04)
[2017-03-02] MEDS: metroNIDAZOLE 500 MG TAB PO SCH ×2 (15:01→21:04)
[2017-03-02 16:00] VITALS: BP 189/94; PULSE 94; RESP 16; TEMP 98.8; O2SAT 93
[2017-03-02] MEDS ORDERED: hydrALAZINE HCL 50 MG TAB PO ONE (19:45)
[2017-03-02 20:00] VITALS: BP 185/94; PULSE 88; RESP 16; TEMP 97.4; O2SAT 92
[2017-03-02] MEDS: INSULIN GLARGINE 1,000 UNITS/10 ML VIAL SQ SCH (21:05)
[2017-03-03] VITALS: BP 127/64; PULSE 91; RESP 16; TEMP 99.1; O2SAT 92
[2017-03-03] MEDS: metroNIDAZOLE 500 MG TAB PO SCH ×3 (05:29→21:26)
[2017-03-03 06:23] LABS: BICARBONATE 27.1 MEQ/L (21.0-32.0); POTASSIUM 3.8 MEQ/L (3.5-5.1)
[2017-03-03 08:00] VITALS: BP 179/85; PULSE 91; RESP 16; TEMP 98.9; O2SAT 92
[2017-03-03] MEDS: INSULIN ASPART SUPPLEMENTAL SCALE SQ SCH ×4 (08:00→20:21)
--- NOTE | 2017-03-03 08:30 | HHI.NPPN ---
Subjective General Problems: Anemia Renal Failure: Chronic, Acute, Stage III Interval History patient was seen and examined. Renal function continues to improve. Review of Systems General Constitutional: Fatigue General Remarks generalized weakness Cardiovascular Cardiac: Edema Gastrointestinal Gastrointestinal: Heartburn Objective Data Data Vital Signs Date Time Temp Pulse Resp B/P (MAP) Pulse Ox O2 Delivery O2 Flow Rate FiO2 03/03/17 00:00 99.1 91 16 127/64 (85) 92 03/02/17 20:00 97.4 88 16 185/94 (124) 92 03/02/17 16:00 98.8 94 16 189/94 (125) 93 03/02/17 12:00 97.6 93 16 188/98 (128) 93 -: 03/02/17 0648 03/03/17 0532 Physical Exam General Appearance: Comfortable, Malnourished Throat Throat Exam: Oral Mucosa [place] & Moist Pulmonary Resp Exam: Clear Bilaterally, Breath Sounds Equal Cardiology CV Exam: Regular, Normal Sinus Rhythm Gastrointestinal/Abdomen GI Exam: Soft, Non-Tender, Bowel Sounds Present Musculoskeletal MS Exam: Joints Intact, Atrophy, Unable to Ambulate Integumentary Skin Exam: Warm, Dry Extremeties Extremities Exam: Pedal Pulses Palpable, Pitting Edema, Dependent Edema Extremeties Remarks edema has improved. Neurologic Neuro Exam: Alert, Awake, Moving All Extremities Assessment/Plan Discussed Condition With: Patient Assessment Summary: REGAN/Acute Renal Failure, Anemia of CKD, Fluid/Volume Overload, Proteinuria, Hypertension Problem List: (1) CKD (chronic kidney disease), stage III ICD Codes: N18.3 - Chronic kidney disease, stage 3 (moderate) Status: Acute Plan: Baseline creatinine 1.8-2.2 Renal function is improving, now at baseline. IVF started for hypernatremia, avoid nephrotoxic agents. Edema may be due to severe malnutrition and low albumin levels. Doppler to evaluate for DVT bilaterally was negative. She has 1680 mg of protein in 24 hour urine collection, she does have significant proteinuria, but not in the nephrotic range. Echo from December, Grade 1 diastolic dysfunction, EF 55-60% Continue Diuril for diureses (2) Anemia ICD Codes: D64.9 - Anemia Status: Acute Plan: Improved after blood transfusion. Follow hemoglobin. (3) Hypertension ICD Codes: I10 - Hypertension Status: Acute Plan: continue ordered medications (4) C. difficile diarrhea ICD Codes: A04.7 - Enterocolitis due to Clostridium difficile Plan: recurrent; she is on oral vancomycin and Lactinex contact precautions taken (5) DM (diabetes mellitus) type I uncontrolled with renal manifestation ICD Codes: E10.29 - Uncontrolled type 1 diabetes mellitus with renal manifestations; E10.65 - Type 1 diabetes mellitus with hyperglycemia Status: Chronic Plan: Monitor glucose; goal 140-180 mg/dL while admitted Continue insulin therapy (6) Hyperosmolality and hypernatremia ICD Codes: E87.0 - Hyperosmolality and hypernatremia Plan: Encouraged oral water intake. Use Diuril for diuresis. On Plan I have stopped Prednisone. Problem Qualifiers (1) Hypertension: Qualified Codes: I10 - Essential (primary) hypertension (2) DM (diabetes mellitus) type I uncontrolled with renal manifestation: Valdez Patterson MD Mar 03, 2017 08:30
[2017-03-03] MEDS ORDERED: POTASSIUM PHOSPHATE MONOBASIC 500 MG TAB PO ONE (09:00)
[2017-03-03] MEDS: levETIRAcetam 500 MG TAB PO SCH ×2 (10:20→20:15)
[2017-03-03] MEDS: LACTOBACILLUS ACIDOPHILUS TAB PO SCH ×3 (10:21→17:48)
[2017-03-03] MEDS: CHOLECALCIFEROL (VIT D3) 5000 UNIT CAP PO SCH (10:21)
[2017-03-03] MEDS: ATORVASTATIN 80 MG TAB PO SCH (10:21)
[2017-03-03] MEDS: CHLOROTHIAZIDE 250 MG TAB PO SCH (10:22)
[2017-03-03] MEDS: VANCOMYCIN 500 MG VIAL (FOR ORAL USE ONLY) PO SCH ×4 (10:28→20:15)
[2017-03-03] MEDS: SODIUM CHLORIDE 23.4% INJ 38.5 MEQ in WATER STERILE FOR INJ 1,000 ML IV SCH (10:29)
[2017-03-03] MEDS: SODIUM CHLORIDE 0.9% FLUSH 10 ML FLUSH IV FLUSH SCH ×2 (10:29→20:15)
[2017-03-03] MEDS: DRONABINOL 5 MG CAP PO SCH ×2 (10:46→17:48)
[2017-03-03 12:00] VITALS: BP 167/79; PULSE 87; RESP 17; TEMP 97.1; O2SAT 93
--- NOTE | 2017-03-03 13:45 | HHI.PR ---
Subjective Remarks No recurrence of diarrhea today. No C. Diff screen obtained yet (no diarrhea sample). Patient has no new complaints. Creatinine at 1.61 now. Objective Vital Signs Date Time Temp Pulse Resp B/P (MAP) Pulse Ox O2 Delivery O2 Flow Rate FiO2 03/03/17 12:00 97.1 87 17 167/79 (108) 93 03/03/17 08:00 98.9 91 16 179/85 (116) 92 03/03/17 00:00 99.1 91 16 127/64 (85) 92 03/02/17 20:00 97.4 88 16 185/94 (124) 92 03/02/17 16:00 98.8 94 16 189/94 (125) 93 I/O 03/02/17 03/02/17 03/02/17 03/03/17 03/03/17 03/03/17 07:00 15:00 23:00 07:00 15:00 23:00 Intake Total 240 ml 120 ml 504 ml Balance 240 ml 120 ml 504 ml Intake Oral 240 ml 120 ml IV Total 504 ml # Voids 4 2 1 # Bowel Movements 4 0 1 Result Diagram: 03/02/17 0648 03/03/17 0532 Objective Remarks GENERAL: NAD, A&Ox3 HEAD: Normocephalic. NECK: Supple, trachea midline. No lymphadenopathy. EYES: No scleral icterus. No injection or drainage. CARDIOVASCULAR: Regular rate and rhythm without murmurs, gallops, or rubs. RESPIRATORY: Breath sounds equal bilaterally. No accessory muscle use. GASTROINTESTINAL: Abdomen soft, non-tender, nondistended. MUSCULOSKELETAL: No cyanosis. Bilateral lower extremity swelling. SKIN: Warm and dry. NEURO: No focal neurological deficitis. 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 difficile diarrhea ICD Code: A04.7 - Enterocolitis due to Clostridium difficile (6) REGAN (acute kidney injury) ICD Code: N17.9 - Acute kidney failure, unspecified Status: Acute Assessment and Plan Assessment and Plan 46-year-old female admitted secondary to recurrence of C. difficile and bilateral lower extremity edema. Continue to monitor labs. Repeat C. difficile screen pending. Continue Flagyl and Vancomycin (will continue both, if unable to obtain a sample). Recurrent C. difficile colitis Continue by mouth vancomycin till 03/05/17 No diarrhea reported today Follow clinically Urinary tract infection Rocephin completed. Follow cultures Probiotics Bilateral lower extremity edema Nephrotic syndrome Protein malnutrition/wasting Continue albumin and diuresis Nephrology following Diabetes mellitus type 2 Follow blood sugars Insulin sliding scale Diabetic diet History of lupus Autoimmunity Anemia of chronic disease Follow CBC Diastolic CHF Follow clinically Contributory to difficulty with diuresis Continue carvedilol Hypertension No change in baseline blood pressure treatments Follow blood pressures Lower extremity weakness Continue physical therapy DVT prophylaxis Lovenox on hold due to possible bleeding/anemia Discharge planning SNF planned at discharge Discharge once diarrhea is determined to be resolved for at least 24 hours. Problem Qualifiers (1) Hypertension: Qualified Codes: I10 - Essential (primary) hypertension Umesh Pandya MD Mar 03, 2017 13:45
[2017-03-03 20:00] VITALS: BP 190/90; PULSE 94; RESP 22; TEMP 99.6; O2SAT 99
[2017-03-03] MEDS: cloNIDine HCL 0.1 MG TAB PO PRN (20:15)
[2017-03-03] MEDS: INSULIN GLARGINE 1,000 UNITS/10 ML VIAL SQ SCH (20:19)
[2017-03-04] VITALS: BP 149/81; PULSE 84; RESP 22; TEMP 99.5; O2SAT 93
[2017-03-04] MEDS: metroNIDAZOLE 500 MG TAB PO SCH ×3 (05:03→21:41)
[2017-03-04 07:20] LABS: AUTOMATED NEUTROPHIL # 10.3 TH/MM3 (1.8-7.7); BASOPHIL % 0.2 % (0.0-2.0); EOSINOPHIL # 0.4 TH/MM3 (0-0.4); EOSINOPHIL % 3.1 % (0.0-4.0); HEMATOCRIT 34.3 % (35.0-46.0); LYMPH % 12.3 % (9.0-44.0); LYMPHOCYTE # 1.6 TH/MM3 (1.0-4.8); MEAN CELL VOLUME 90.9 FL (80.0-100.0); MEAN CORPUSCULAR HEMOGLOBIN 29.7 PG (27.0-34.0); MEAN CORPUSCULAR HGB CONC 32.6 % (32.0-36.0); MONO % 6.2 % (0.0-8.0); NEUT % 78.2 % (16.0-70.0); PLATELET COUNT 68 TH/MM3 (150-450); RED BLOOD COUNT 3.77 MIL/MM3 (4.00-5.30); RED CELL DISTRIBUTION WIDTH 15.5 % (11.6-17.2); WHITE BLOOD COUNT 13.2 TH/MM3 (4.0-11.0)
[2017-03-04 07:22] LABS: HEMO FLAGS AUTO DIFF
[2017-03-04 07:49] LABS: ALKALINE PHOSPHATASE 275 U/L (45-117); ALT (GPT) 74 U/L (10-53); ANION GAP 7 MEQ/L (5-15); AST (GOT) 26 U/L (15-37); BICARBONATE 26.2 MEQ/L (21.0-32.0); BLOOD UREA NITROGEN 34 MG/DL (7-18); CHLORIDE 117 MEQ/L (98-107); GLOMERULAR FILTRATION RATE 54 ML/MIN (>89); MAGNESIUM 1.9 MG/DL (1.5-2.5); POTASSIUM 3.6 MEQ/L (3.5-5.1); SODIUM (NA) 150 MEQ/L (136-145); TOTAL BILIRUBIN ADULT 0.6 MG/DL (0.2-1.0)
[2017-03-04 08:00] VITALS: BP 223/111; PULSE 96; RESP 18; TEMP 96.9; O2SAT 95
[2017-03-04] MEDS: INSULIN ASPART SUPPLEMENTAL SCALE SQ SCH ×4 (08:00→20:59)
[2017-03-04] MEDS: CHLOROTHIAZIDE 250 MG TAB PO SCH (08:10)
[2017-03-04] MEDS: VANCOMYCIN 500 MG VIAL (FOR ORAL USE ONLY) PO SCH ×4 (08:11→19:40)
[2017-03-04] MEDS: LACTOBACILLUS ACIDOPHILUS TAB PO SCH ×3 (08:11→17:25)
[2017-03-04] MEDS: CHOLECALCIFEROL (VIT D3) 5000 UNIT CAP PO SCH (08:11)
[2017-03-04] MEDS: levETIRAcetam 500 MG TAB PO SCH ×2 (08:11→19:40)
[2017-03-04] MEDS: cloNIDine HCL 0.1 MG TAB PO PRN ×2 (08:11→17:24)
[2017-03-04] MEDS: ATORVASTATIN 80 MG TAB PO SCH (08:12)
[2017-03-04] MEDS: SODIUM CHLORIDE 0.9% FLUSH 10 ML FLUSH IV FLUSH SCH ×2 (08:12→19:40)
[2017-03-04 08:49] LABS: PLATELET ESTIMATE SMEAR LOW (NORMAL); PLATELET MORPHOLOGY NORMAL (NORMAL); SCAN/DIFF AUTO DIFF CONFIRMED
[2017-03-04 09:00] VITALS: BP 205/100
[2017-03-04] MEDS ORDERED: METOPROLOL TARTRATE 50 MG TAB PO ONE (09:30)
[2017-03-04] MEDS ORDERED: HYDROCHLOROTHIAZIDE 25 MG TAB PO ONE (09:30)
[2017-03-04] MEDS: SODIUM CHLORIDE 23.4% INJ 38.5 MEQ in WATER STERILE FOR INJ 1,000 ML IV SCH (10:39)
--- NOTE | 2017-03-04 11:08 | HHI.PR ---
Subjective Remarks No diarrhea today. Creatinine continues to improve. Albumin is stable. Phosphorus is low. Halicat early this morning due to hypoglycemia. Now HTN Urgency is present (likely related to adrenaline from hypoglycemia). Objective Vital Signs Date Time Temp Pulse Resp B/P (MAP) Pulse Ox O2 Delivery O2 Flow Rate FiO2 03/04/17 09:00 205/100 (135) 03/04/17 08:00 96.9 96 18 223/111 (148) 95 03/04/17 00:00 99.5 84 22 149/81 (103) 93 03/03/17 20:00 99.6 94 22 190/90 (123) 99 03/03/17 12:00 97.1 87 17 167/79 (108) 93 I/O 03/03/17 03/03/17 03/03/17 03/04/17 03/04/17 03/04/17 07:00 15:00 23:00 07:00 15:00 23:00 Intake Total 504 ml 240 ml 240 ml 120 ml Output Total 300 ml Balance 504 ml -60 ml 240 ml 120 ml Intake Oral 240 ml 240 ml 120 ml IV Total 504 ml Output Urine Total 300 ml # Voids 1 1 # Bowel Movements 1 Result Diagram: 03/04/17 0603/04/17 0605 Objective Remarks GENERAL: NAD, A&Ox3 HEAD: Normocephalic. NECK: Supple, trachea midline. No lymphadenopathy. EYES: No scleral icterus. No injection or drainage. CARDIOVASCULAR: Regular rate and rhythm without murmurs, gallops, or rubs. RESPIRATORY: Breath sounds equal bilaterally. No accessory muscle use. GASTROINTESTINAL: Abdomen soft, non-tender, nondistended. MUSCULOSKELETAL: No cyanosis. Bilateral lower extremity swelling. SKIN: Warm and dry. NEURO: No focal neurological deficitis. A/P Problem List: (1) Lupus ICD Code: M32.9 - Systemic lupus erythematosus Status: Chronic (2) Hypertension ICD Code: I10 - Hypertension Status: Acute (3) Insulin dependent diabetes mellitus ICD Code: E11.9 - Insulin dependent diabetes mellitus; Z79.4 - [employer] ( current) use of insulin Status: Acute (4) Diabetic neuropathy ICD Code: E11.40 - Diabetic neuropathy Status: Acute (5) C. difficile diarrhea ICD Code: A04.7 - Enterocolitis due to Clostridium difficile (6) REGAN (acute kidney injury) ICD Code: N17.9 - Acute kidney failure, unspecified Status: Acute Assessment and Plan Assessment and Plan 46-year-old female admitted secondary to recurrence of C. difficile and bilateral lower extremity edema. No diarrhea today. Lantus decreased for episode of hypoglycemia, continue to monitor blood sugars. HTN treatment with PRN Clonidine, one time metoprolol, and a new baseline Hydrochlorothiazide. Follow BP. Labs reviewed. Order labs for follow up evaluation in the morning. Recurrent C. difficile colitis Continue by mouth vancomycin and flagyl till 03/05/17 No diarrhea reported today Follow clinically Urinary tract infection Rocephin completed. Probiotics Bilateral lower extremity edema Nephrotic syndrome Protein malnutrition/wasting Improved Nephrology following Diabetes mellitus type 2 Follow blood sugars Insulin sliding scale Diabetic diet History of lupus Autoimmunity Anemia of chronic disease Follow CBC Diastolic CHF Follow clinically Contributory to difficulty with diuresis Continue carvedilol Hypertension No change in baseline blood pressure treatments Follow blood pressures Lower extremity weakness Continue physical therapy DVT prophylaxis Lovenox on hold due to possible bleeding/anemia Discharge planning SNF planned at discharge Discharge once diarrhea is determined to be resolved for at least 24 hours. Problem Qualifiers (1) Hypertension: Qualified Codes: I10 - Essential (primary) hypertension Umesh Pandya MD Mar 04, 2017 11:08
[2017-03-04] MEDS ORDERED: POTASSIUM PHOSPHATE MONOBASIC 500 MG TAB PO ONE (11:15)
[2017-03-04 12:00] VITALS: BP 189/95; PULSE 81; RESP 19; TEMP 98; O2SAT 96
[2017-03-04] MEDS: DRONABINOL 5 MG CAP PO SCH ×2 (12:57→15:32)
--- NOTE | 2017-03-04 15:06 | HHI.NPPN ---
Subjective General Problems: Anemia Renal Failure: Chronic, Acute, Stage III Interval History Renal function is better. Diarrhea resolved. Hypernatremia persists. (Eva Marcelo) Review of Systems General Constitutional: Fatigue General Remarks generalized weakness (Eva Marcelo) Cardiovascular Cardiac: Edema (Eva Marcelo) Gastrointestinal Gastrointestinal: Heartburn (Eva Marcelo) Objective Data Data 03/04/17 03/05/17 18:59 06:59 Intake Total 120 ml Balance 120 ml Intake Oral 120 ml Vital Signs Date Time Temp Pulse Resp B/P (MAP) Pulse Ox O2 Delivery O2 Flow Rate FiO2 03/04/17 12:00 98.0 81 19 189/95 (126) 96 03/04/17 09:00 205/100 (135) 03/04/17 08:00 96.9 96 18 223/111 (148) 95 03/04/17 00:00 99.5 84 22 149/81 (103) 93 03/03/17 20:00 99.6 94 22 190/90 (123) 99 (Eva Marcelo) -: 03/04/17 0605 03/04/17 0605 Physical Exam General Appearance: No Acute Distress, Comfortable, Malnourished (Eva Marcelo) Throat Throat Exam: Oral Mucosa [place] & Moist (Eva Marcelo) Pulmonary Resp Exam: Clear Bilaterally, Breath Sounds Equal, No Distress (Eva Marcelo) Cardiology CV Exam: Regular, Normal Sinus Rhythm (Eva Marcelo) Gastrointestinal/Abdomen GI Exam: Soft, Non-Tender, Bowel Sounds Present (Eva Marcelo) Musculoskeletal MS Exam: Joints Intact, Atrophy, Unable to Ambulate (Eva Marcelo) Integumentary Skin Exam: Warm, Dry (Eva Marcelo) Extremeties Extremities Exam: Pedal Pulses Palpable, Pitting Edema, Dependent Edema (Eva Marcelo) Neurologic Neuro Exam: Alert, Awake, Speech Clear, Moving All Extremities (Eva Marcelo) Assessment/Plan Discussed Condition With: Patient Assessment Summary: REGAN/Acute Renal Failure, Anemia of CKD, Fluid/Volume Overload, Proteinuria, Hypertension Problem List: (1) CKD (chronic kidney disease), stage III ICD Codes: N18.3 - Chronic kidney disease, stage 3 (moderate) Status: Acute Plan: Baseline creatinine 1.8-2.2 Renal function continues to improve On 1/4 NS for hypernatremia, water intake encourged continue to avoid nephrotoxic agents. Doppler to evaluate for DVT bilaterally was negative. She has 1680 mg of protein in 24 hour urine collection, she does have significant proteinuria, but not in the nephrotic range. Echo from December, Grade 1 diastolic dysfunction, EF 55-60% Continue Diuril for diureses repeat labs in AM (2) Anemia ICD Codes: D64.9 - Anemia Status: Acute Plan: Improved after blood transfusion. Follow hemoglobin. (3) Hypertension ICD Codes: I10 - Hypertension Status: Acute Plan: continue Diuril Start losartan for proteinuria (4) C. difficile diarrhea ICD Codes: A04.7 - Enterocolitis due to Clostridium difficile Plan: recurrent; she is on oral vancomycin and Lactinex contact precautions taken (5) DM (diabetes mellitus) type I uncontrolled with renal manifestation ICD Codes: E10.29 - Uncontrolled type 1 diabetes mellitus with renal manifestations; E10.65 - Type 1 diabetes mellitus with hyperglycemia Status: Chronic Plan: She was a helicat call for hypoglycemia today Monitor glucose; goal 140-180 mg/dL while admitted Continue insulin therapy if needed (6) Hyperosmolality and hypernatremia ICD Codes: E87.0 - Hyperosmolality and hypernatremia Plan: Encouraged oral water intake. Use Diuril for diuresis. On 1/4NS (Eva Marcelo) Plan patient was seen and examined. Renal function has improved. Agree with above assessment and plan. On 4NS for hypernatremia. Patient needs to drink more water. (Valdez Patterson MD) Problem Qualifiers (1) Hypertension: Qualified Codes: I10 - Essential (primary) hypertension (2) DM (diabetes mellitus) type I uncontrolled with renal manifestation: Eva Marcelo Mar 04, 2017 15:06 Valdez Patterson MD Mar 06, 2017 15:31
[2017-03-04] MEDS: ENOXAPARIN SODIUM 30 MG/0.3 ML SYRINGE SQ SCH (15:31)
[2017-03-04] MEDS: LOSARTAN 25 MG TAB PO SCH (15:32)
[2017-03-04 16:00] VITALS: BP 187/88; PULSE 76; RESP 20; TEMP 98.4; O2SAT 95
[2017-03-04] MEDS ORDERED: DEXTROSE 50% IN WATER 50 ML SYRINGE ONE (17:33)
[2017-03-04] MEDS: DEXTROSE 5% IN WATE 1000ML INJ 1,000 ML IV SCH (19:41)
[2017-03-04 20:00] VITALS: BP 201/97; PULSE 81; RESP 18; TEMP 95.8; O2SAT 95
[2017-03-04] MEDS ORDERED: INSULIN GLARGINE 1,000 UNITS/10 ML VIAL SQ SCH (21:00)
[2017-03-05] VITALS: BP 186/87; PULSE 80; RESP 18; TEMP 96.7; O2SAT 91
[2017-03-05] MEDS: cloNIDine HCL 0.1 MG TAB PO PRN ×2 (00:33→18:54)
[2017-03-05 04:00] VITALS: BP 146/77; PULSE 79; RESP 18; TEMP 96.5; O2SAT 92
[2017-03-05] MEDS: DEXTROSE 5% IN WATE 1000ML INJ 1,000 ML IV SCH ×2 (05:18→08:11)
[2017-03-05] MEDS: metroNIDAZOLE 500 MG TAB PO SCH ×3 (05:19→22:04)
[2017-03-05 07:37] LABS: AUTOMATED NEUTROPHIL # 10.4 TH/MM3 (1.8-7.7); BASOPHIL # 0.1 TH/MM3 (0-0.2); BASOPHIL % 0.4 % (0.0-2.0); EOSINOPHIL # 0.4 TH/MM3 (0-0.4); EOSINOPHIL % 2.8 % (0.0-4.0); HEMATOCRIT 33.8 % (35.0-46.0); LYMPHOCYTE # 1.3 TH/MM3 (1.0-4.8); MEAN CELL VOLUME 90.1 FL (80.0-100.0); MEAN CORPUSCULAR HEMOGLOBIN 29.5 PG (27.0-34.0); MEAN CORPUSCULAR HGB CONC 32.7 % (32.0-36.0); MONO % 5.3 % (0.0-8.0); NEUT % 81.5 % (16.0-70.0); PLATELET COUNT 64 TH/MM3 (150-450); RED BLOOD COUNT 3.75 MIL/MM3 (4.00-5.30); RED CELL DISTRIBUTION WIDTH 15.3 % (11.6-17.2); WHITE BLOOD COUNT 12.8 TH/MM3 (4.0-11.0)
[2017-03-05 08:00] VITALS: BP 172/82; PULSE 87; RESP 18; TEMP 98.7; O2SAT 92
[2017-03-05 08:00] LABS: ALKALINE PHOSPHATASE 321 U/L (45-117); TOTAL BILIRUBIN ADULT 0.6 MG/DL (0.2-1.0)
[2017-03-05] MEDS: INSULIN ASPART SUPPLEMENTAL SCALE SQ SCH ×4 (08:00→21:00)
[2017-03-05 08:03] LABS: HEMO FLAGS AUTO DIFF
[2017-03-05] MEDS: VANCOMYCIN 500 MG VIAL (FOR ORAL USE ONLY) PO SCH ×4 (08:13→22:04)
[2017-03-05] MEDS: levETIRAcetam 500 MG TAB PO SCH ×2 (08:13→22:04)
[2017-03-05] MEDS: LACTOBACILLUS ACIDOPHILUS TAB PO SCH ×3 (08:13→17:43)
[2017-03-05] MEDS: ATORVASTATIN 80 MG TAB PO SCH (08:13)
[2017-03-05] MEDS: CHLOROTHIAZIDE 250 MG TAB PO SCH (08:13)
[2017-03-05] MEDS: CHOLECALCIFEROL (VIT D3) 5000 UNIT CAP PO SCH (08:13)
[2017-03-05] MEDS: LOSARTAN 25 MG TAB PO SCH (08:13)
[2017-03-05 08:16] LABS: ALT (GPT) 76 U/L (10-53); ANION GAP 6 MEQ/L (5-15); AST (GOT) 49 U/L (15-37); BICARBONATE 25.1 MEQ/L (21.0-32.0); BLOOD UREA NITROGEN 27 MG/DL (7-18); CHLORIDE 114 MEQ/L (98-107); GLOMERULAR FILTRATION RATE 55 ML/MIN (>89); MAGNESIUM 1.9 MG/DL (1.5-2.5); SODIUM (NA) 145 MEQ/L (136-145)
[2017-03-05] MEDS: SODIUM CHLORIDE 0.9% FLUSH 10 ML FLUSH IV FLUSH SCH ×2 (08:16→22:04)
[2017-03-05 08:24] LABS: POTASSIUM 4.2 MEQ/L (3.5-5.1)
[2017-03-05] MEDS ORDERED: HYDROCHLOROTHIAZIDE 25 MG TAB PO SCH (09:00)
[2017-03-05] MEDS: DRONABINOL 5 MG CAP PO SCH ×2 (11:25→15:20)
[2017-03-05 12:00] VITALS: BP 186/87; PULSE 79; RESP 18; TEMP 98.5; O2SAT 93
[2017-03-05 12:02] LABS: BANDS 5 % (0-6); EOSINOPHILS 1 % (0-4); NEUTROPHIL # MANUAL DIFF 10.9 TH/MM3 (1.8-7.7); POLYS (SEG NEUTROPHILS) 80 % (16-70); WBC DIFF SAMPLE 100
[2017-03-05 12:03] LABS: OVALOCYTES 1+ (NORMAL); PLATELET ESTIMATE SMEAR LOW (NORMAL); PLATELET MORPHOLOGY NORMAL (NORMAL); SCAN/DIFF FINAL DIFF MANUAL
--- NOTE | 2017-03-05 12:42 | HHI.PR ---
Subjective Remarks denies any nausea or vomiting, no further episodes of diarrhea since yesterday feels stronger- motivated with getting more therapy and increasing activity Objective Vitals Vital Signs Date Time Temp Pulse Resp B/P (MAP) Pulse Ox O2 Delivery O2 Flow Rate FiO2 03/05/17 08:00 98.7 87 18 172/82 (112) 92 03/05/17 04:00 96.5 79 18 146/77 (100) 92 03/05/17 00:00 96.7 80 18 186/87 (120) 91 03/04/17 20:00 95.8 81 18 201/97 (131) 95 03/04/17 16:00 98.4 76 20 187/88 (121) 95 I/O 03/04/17 03/04/17 03/04/17 03/05/17 03/05/17 03/05/17 06:59 14:59 22:59 06:59 14:59 22:59 Intake Total 240 ml 120 ml 1972 ml 240 ml Output Total 600 ml Balance 240 ml 120 ml 1372 ml 240 ml Intake Oral 240 ml 120 ml 1200 ml 240 ml IV Total 772 ml Output Urine Total 600 ml # Voids 1 2 2 # Bowel Movements 1 1 Result Diagram: 03/05/17 0704 03/05/17 0704 Imaging Last Impressions Chest X-Ray 02/25/17 0000 Signed Impressions: Service Date/Time: Saturday, February 25, 2017 22:51 - CONCLUSION: 1. Left IJ central venous catheter projects over the central venous system. No pneumothorax. 2. Vascular congestion appears to have improved but there are still patchy areas of infiltrate predominantly in the right upper lung and left perihilar distribution. Genaro Key MD Lower Extremity Ultrasound 02/24/17 0000 Signed Impressions: Service Date/Time: February 11:34 - CONCLUSION: No evidence of deep venous thrombosis within the lower extremities. Villa Calderon MD Objective Remarks awake and alert, no acute distress anciteric lungs no rales or wheezes regular rhythm abdomen soft, nontender extremities + edema, good peripheral pulses neuro exam- moves all extremities spontaneously A/P Problem List: (1) Diastolic CHF, acute ICD Code: I50.31 - Acute diastolic (congestive) heart failure (2) Hypoalbuminemia ICD Code: E88.09 - Other disorders of plasma-protein metabolism, not elsewhere classified (3) DM (diabetes mellitus) type I uncontrolled with renal manifestation ICD Code: E10.29 - Uncontrolled type 1 diabetes mellitus with renal manifestations; E10.65 - Type 1 diabetes mellitus with hyperglycemia Status: Chronic (4) Hypertension ICD Code: I10 - Hypertension Status: Acute (5) Hypernatremia ICD Code: E87.0 - Hyperosmolality and hypernatremia Assessment and Plan 46-year-old female admitted secondary to recurrence of C. difficile and bilateral lower extremity edema. Recurrent C. difficile colitis - diarrhea improved Continue by mouth vancomycin and flagyl till today 03/05/17- then DC Follow clinically Urinary tract infection S/P Rocephin course Probiotics Bilateral lower extremity edema Nephrotic syndrome Protein malnutrition/wasting Improved Nephrology following- on Diuril Diabetes mellitus type 2 Follow blood sugars- dose adjusted- good readings off meds Insulin sliding scale Diabetic diet. = History of lupus Autoimmunity Anemia of chronic disease Follow CBC. Diastolic CHF Hypertension Follow clinically Continue on ARB, Diuril. Monitor and adjust Lower extremity weakness Continue physical therapy- encouraged patient DVT prophylaxis Lovenox on hold due to possible bleeding/anemia Discharge planning SNF planned at discharge Discharge once diarrhea is determined to be resolved for at least 24 hours. Problem Qualifiers (1) DM (diabetes mellitus) type I uncontrolled with renal manifestation: (2) Hypertension: Qualified Codes: I10 - Essential (primary) hypertension Eliana Clay MD Mar 05, 2017 12:41
--- NOTE | 2017-03-05 12:43 | HHI.NPPN ---
Subjective General Problems: Anemia Renal Failure: Chronic, Acute, Stage III History of Present Illness 46 y/o AAF. She had prolonged hospital stay for tib/fib fracture with the admission from 12/02, discharged 02/09. She was home less than one week. Came back to ER for lower extremity edema. She did have home health ordered but apparently was unable to get out of bed or even get to the bathroom. Additional Remarks Patient is feeling better, eating , breathing improving. Review of Systems General Constitutional: Fatigue General Remarks generalized weakness Cardiovascular Cardiac: Edema Gastrointestinal Gastrointestinal: Heartburn Objective Data Data Vital Signs Date Time Temp Pulse Resp B/P (MAP) Pulse Ox O2 Delivery O2 Flow Rate FiO2 03/05/17 08:00 98.7 87 18 172/82 (112) 92 03/05/17 04:00 96.5 79 18 146/77 (100) 92 03/05/17 00:00 96.7 80 18 186/87 (120) 91 03/04/17 20:00 95.8 81 18 201/97 (131) 95 03/04/17 16:00 98.4 76 20 187/88 (121) 95 -: 03/05/17 0704 03/05/17 0704 Physical Exam General Appearance: No Acute Distress, Comfortable, Malnourished Throat Throat Exam: Oral Mucosa [place] & Moist Pulmonary Resp Exam: Clear Bilaterally, Breath Sounds Equal, No Distress Cardiology CV Exam: Regular, Normal Sinus Rhythm Gastrointestinal/Abdomen GI Exam: Soft, Non-Tender, Bowel Sounds Present Musculoskeletal MS Exam: Joints Intact, Atrophy, Unable to Ambulate Integumentary Skin Exam: Warm, Dry Extremeties Extremities Exam: Pitting Edema, Dependent Edema Neurologic Neuro Exam: Alert, Awake, Oriented Psychiatric Psych Exam: Appropriate Responses Assessment/Plan Discussed Condition With: Patient Assessment Summary: REGAN/Acute Renal Failure, Anemia of CKD, Fluid/Volume Overload, Proteinuria, Hypertension Problem List: (1) CKD (chronic kidney disease), stage III ICD Codes: N18.3 - Chronic kidney disease, stage 3 (moderate) Status: Acute Plan: Baseline creatinine 1.8-2.2 Renal function continues to improve On 06/16 NS for hypernatremia, water intake encouraged continue to avoid nephrotoxic agents. Doppler to evaluate for DVT bilaterally was negative. She has 1680 mg of protein in 24 hour urine collection, she does have significant proteinuria, but not in the nephrotic range. Echo from December, Grade 1 diastolic dysfunction, EF 55-60% Continue Diuril for diureses Creatinine is stable at 1.2. BP is elevated, increase Losartan, will also help decreasing proteinuria. (2) Anemia ICD Codes: D64.9 - Anemia Status: Acute Plan: Improved after blood transfusion. Follow hemoglobin. (3) Hypertension ICD Codes: I10 - Hypertension Status: Acute Plan: continue Diuril Start losartan for proteinuria (4) C. difficile diarrhea ICD Codes: A04.7 - Enterocolitis due to Clostridium difficile Plan: recurrent; she is on oral vancomycin and Lactinex contact precautions taken (5) DM (diabetes mellitus) type I uncontrolled with renal manifestation ICD Codes: E10.29 - Uncontrolled type 1 diabetes mellitus with renal manifestations; E10.65 - Type 1 diabetes mellitus with hyperglycemia Status: Chronic Plan: She was a helicat call for hypoglycemia today Monitor glucose; goal 140-180 mg/dL while admitted Continue insulin therapy if needed (6) Hyperosmolality and hypernatremia ICD Codes: E87.0 - Hyperosmolality and hypernatremia Plan: Encouraged oral water intake. Use Diuril for diuresis. On Problem Qualifiers (1) Hypertension: Qualified Codes: I10 - Essential (primary) hypertension (2) DM (diabetes mellitus) type I uncontrolled with renal manifestation: Racquel Horton MD Mar 05, 2017 12:43
[2017-03-05] MEDS: ENOXAPARIN SODIUM 30 MG/0.3 ML SYRINGE SQ SCH (15:20)
[2017-03-05 16:00] VITALS: BP 164/86; PULSE 84; RESP 16; TEMP 98.5; O2SAT 92
[2017-03-05 20:00] VITALS: BP 196/110; PULSE 93; RESP 15; TEMP 99; O2SAT 95
[2017-03-06] VITALS: BP 142/60; PULSE 84; RESP 17; TEMP 98.5; O2SAT 91
[2017-03-06] MEDS: metroNIDAZOLE 500 MG TAB PO SCH ×3 (05:27→21:38)
[2017-03-06] MEDS: ACETAMINOPHEN/HYDROcodone 325 MG/5 MG TAB PO PRN (07:56)
[2017-03-06] MEDS: CHLOROTHIAZIDE 250 MG TAB PO SCH (07:57)
[2017-03-06] MEDS: CHOLECALCIFEROL (VIT D3) 5000 UNIT CAP PO SCH (07:57)
[2017-03-06] MEDS: levETIRAcetam 500 MG TAB PO SCH ×2 (07:58→21:38)
[2017-03-06] MEDS: LACTOBACILLUS ACIDOPHILUS TAB PO SCH ×3 (07:58→17:35)
[2017-03-06] MEDS: ATORVASTATIN 80 MG TAB PO SCH (07:58)
[2017-03-06] MEDS: VANCOMYCIN 500 MG VIAL (FOR ORAL USE ONLY) PO SCH ×3 (07:58→17:36)
[2017-03-06] MEDS: LOSARTAN 50 MG TAB PO SCH (07:58)
[2017-03-06 08:00] VITALS: BP 178/91; PULSE 100; RESP 18; TEMP 97.7; O2SAT 91
[2017-03-06] MEDS: INSULIN ASPART SUPPLEMENTAL SCALE SQ SCH ×4 (08:00→21:00)
[2017-03-06] MEDS: SODIUM CHLORIDE 0.9% FLUSH 10 ML FLUSH IV FLUSH SCH ×2 (08:05→21:39)
--- NOTE | 2017-03-06 11:10 | HHI.PR ---
Subjective Remarks patient today had 2 BMs- loose complains of low back discomfort Objective Vitals Vital Signs Date Time Temp Pulse Resp B/P (MAP) Pulse Ox O2 Delivery O2 Flow Rate FiO2 03/06/17 08:56 18 03/06/17 08:00 97.7 100 18 178/91 (120) 91 03/06/17 00:00 98.5 84 17 142/60 (87) 91 03/05/17 20:00 99.0 93 15 196/110 (138) 95 03/05/17 16:00 98.5 84 16 164/86 (112) 92 03/05/17 12:00 98.5 79 18 186/87 (120) 93 I/O 03/05/17 03/05/17 03/05/17 03/06/17 03/06/17 03/06/17 07:00 15:00 23:00 07:00 15:00 23:00 Intake Total 240 ml 2151 ml 240 ml Output Total 300 ml Balance 240 ml 1851 ml 240 ml Intake Oral 240 ml 720 ml 240 ml IV Total 1431 ml Output Urine Total 300 ml # Voids 2 2 3 # Bowel Movements 1 0 Result Diagram: 03/05/17 0704 03/05/17 0704 Imaging Last Impressions Chest X-Ray 02/25/17 0000 Signed Impressions: Service Date/Time: Saturday, February 25, 2017 22:51 - CONCLUSION: 1. Left IJ central venous catheter projects over the central venous system. No pneumothorax. 2. Vascular congestion appears to have improved but there are still patchy areas of infiltrate predominantly in the right upper lung and left perihilar distribution. Genaro Key MD Lower Extremity Ultrasound 02/24/17 0000 Signed Impressions: Service Date/Time: February 11:34 - CONCLUSION: No evidence of deep venous thrombosis within the lower extremities. Villa Calderon MD Objective Remarks awake and alert, no acute distress anicteric lungs no rales or wheezes regular rhythm abdomen soft, nontender no CVA tenderness extremities + edema, good peripheral pulses neuro exam- moves all extremities spontaneously A/P Problem List: (1) Diastolic CHF, acute ICD Code: I50.31 - Acute diastolic (congestive) heart failure (2) Hypoalbuminemia ICD Code: E88.09 - Other disorders of plasma-protein metabolism, not elsewhere classified (3) DM (diabetes mellitus) type I uncontrolled with renal manifestation ICD Code: E10.29 - Uncontrolled type 1 diabetes mellitus with renal manifestations; E10.65 - Type 1 diabetes mellitus with hyperglycemia Status: Chronic (4) Hypertension ICD Code: I10 - Hypertension Status: Acute (5) Hypernatremia ICD Code: E87.0 - Hyperosmolality and hypernatremia Assessment and Plan 46-year-old female admitted secondary to recurrence of C. difficile and bilateral lower extremity edema. Recurrent C. difficile colitis - diarrhea Continue by mouth vancomycin and flagyl - taper decrease Vancomycin to 250 mg po tid 03/06 Follow clinically0 today patient states increase BM Repeat CBC Urinary tract infection S/P Rocephin course Probiotics Diastolic CHF Hypertension Follow clinically Continue on ARB, Diuril. Monitor and adjust Increase cozaar to 50 mg po daily Bilateral lower extremity edema Nephrotic syndrome Protein malnutrition/wasting Improved Nephrology following- on Diuril and ARB- dose increased 03/06 REcheck BMP in am Diabetes mellitus type 2 Follow blood sugars- dose adjusted- good readings off meds Insulin sliding scale Diabetic diet. = History of lupus Autoimmunity Anemia of chronic disease Follow CBC. Lower extremity weakness Continue physical therapy- encouraged patient DVT prophylaxis Lovenox on hold due to possible bleeding/anemia Discharge planning SNF planned at discharge Discharge once diarrhea is determined to be resolved for at least 24 hours. Problem Qualifiers (1) DM (diabetes mellitus) type I uncontrolled with renal manifestation: (2) Hypertension: Qualified Codes: I10 - Essential (primary) hypertension Eliana Clay MD Mar 06, 2017 11:10
--- NOTE | 2017-03-06 11:15 | HHI.NPPN ---
Subjective General Problems: Anemia Renal Failure: Chronic, Acute, Stage III History of Present Illness 46 y/o AAF. She had prolonged hospital stay for tib/fib fracture with the admission from 12/02, discharged 02/09. She was home less than one week. Came back to ER for lower extremity edema. She did have home health ordered but apparently was unable to get out of bed or even get to the bathroom. Additional Remarks Patient is alert, complaining of back pain, no dysuria, no hematuria. Review of Systems General Constitutional: Fatigue General Remarks generalized weakness Cardiovascular Cardiac: Edema Gastrointestinal Gastrointestinal: Heartburn Objective Data Data Vital Signs Date Time Temp Pulse Resp B/P (MAP) Pulse Ox O2 Delivery O2 Flow Rate FiO2 03/06/17 08:56 18 03/06/17 08:00 97.7 100 18 178/91 (120) 91 03/06/17 00:00 98.5 84 17 142/60 (87) 91 03/05/17 20:00 99.0 93 15 196/110 (138) 95 03/05/17 16:00 98.5 84 16 164/86 (112) 92 03/05/17 12:00 98.5 79 18 186/87 (120) 93 -: 03/05/17 0704 03/05/17 0704 Physical Exam General Appearance: No Acute Distress, Comfortable, Malnourished Throat Throat Exam: Oral Mucosa [place] & Moist Pulmonary Resp Exam: Clear Bilaterally, Breath Sounds Equal, No Distress Cardiology CV Exam: Regular, Normal Sinus Rhythm Gastrointestinal/Abdomen GI Exam: Soft, Non-Tender, Bowel Sounds Present Musculoskeletal MS Exam: Joints Intact, Atrophy, Unable to Ambulate Integumentary Skin Exam: Warm, Dry Extremeties Extremities Exam: Pitting Edema, Dependent Edema Neurologic Neuro Exam: Alert, Awake, Oriented Psychiatric Psych Exam: Appropriate Responses Assessment/Plan Discussed Condition With: Patient Assessment Summary: REGAN/Acute Renal Failure, Anemia of CKD, Fluid/Volume Overload, Proteinuria, Hypertension Problem List: (1) CKD (chronic kidney disease), stage III ICD Codes: N18.3 - Chronic kidney disease, stage 3 (moderate) Status: Acute Plan: Renal function continues to improve. continue to avoid nephrotoxic agents. Doppler to evaluate for DVT bilaterally was negative. She has 1680 mg of protein in 24 hour urine collection, she does have significant proteinuria, but not in the nephrotic range. Echo from December, Grade 1 diastolic dysfunction, EF 55-60% Continue Diuril for diureses Creatinine is stable at 1.2. BP is still elevated, Losartan was increased , could be from pain, to follow. Dr. Patterson will follow from AM. (2) Anemia ICD Codes: D64.9 - Anemia Status: Acute Plan: Improved after blood transfusion. Follow hemoglobin. (3) Hypertension ICD Codes: I10 - Hypertension Status: Acute Plan: continue Diuril Start losartan for proteinuria (4) C. difficile diarrhea ICD Codes: A04.7 - Enterocolitis due to Clostridium difficile Plan: recurrent; she is on oral vancomycin and Lactinex contact precautions taken (5) DM (diabetes mellitus) type I uncontrolled with renal manifestation ICD Codes: E10.29 - Uncontrolled type 1 diabetes mellitus with renal manifestations; E10.65 - Type 1 diabetes mellitus with hyperglycemia Status: Chronic Plan: She was a helicat call for hypoglycemia today Monitor glucose; goal 140-180 mg/dL while admitted Continue insulin therapy if needed (6) Hyperosmolality and hypernatremia ICD Codes: E87.0 - Hyperosmolality and hypernatremia Plan: Encouraged oral water intake. Use Diuril for diuresis. On Problem Qualifiers (1) Hypertension: Qualified Codes: I10 - Essential (primary) hypertension (2) DM (diabetes mellitus) type I uncontrolled with renal manifestation: Racquel Horton MD Mar 06, 2017 11:14
[2017-03-06] MEDS: DRONABINOL 5 MG CAP PO SCH ×2 (11:37→16:32)
[2017-03-06 12:00] VITALS: BP 190/99; PULSE 96; RESP 20; TEMP 97.6; O2SAT 93
[2017-03-06] MEDS: cloNIDine HCL 0.1 MG TAB PO PRN (13:38)
[2017-03-06] MEDS: HYDROmorphone HCL PF 1 MG/ML VIAL IV PUSH PRN (13:38)
[2017-03-06] MEDS ORDERED: ACETAMINOPHEN/HYDROcodone 325 MG/5 MG TAB PO PRN (14:00)
[2017-03-06] MEDS: ENOXAPARIN SODIUM 30 MG/0.3 ML SYRINGE SQ SCH ×2 (15:00→16:32)
[2017-03-06 16:00] VITALS: BP 142/85; PULSE 91; RESP 16; TEMP 96.9; O2SAT 91
[2017-03-06 20:00] VITALS: BP 135/65; PULSE 84; RESP 17; TEMP 96.9; O2SAT 96
[2017-03-07] VITALS: BP 128/62; PULSE 86; RESP 17; TEMP 97.3; O2SAT 96
[2017-03-07] MEDS: metroNIDAZOLE 500 MG TAB PO SCH ×3 (05:37→22:14)
[2017-03-07 06:05] LABS: AUTOMATED NEUTROPHIL # 11.3 TH/MM3 (1.8-7.7); BASOPHIL # 0.1 TH/MM3 (0-0.2); BASOPHIL % 0.4 % (0.0-2.0); EOSINOPHIL # 0.3 TH/MM3 (0-0.4); EOSINOPHIL % 1.9 % (0.0-4.0); HEMATOCRIT 29.7 % (35.0-46.0); LYMPH % 7.5 % (9.0-44.0); MEAN CELL VOLUME 90.9 FL (80.0-100.0); MEAN CORPUSCULAR HEMOGLOBIN 29.2 PG (27.0-34.0); MEAN CORPUSCULAR HGB CONC 32.2 % (32.0-36.0); MONO % 4.8 % (0.0-8.0); NEUT % 85.4 % (16.0-70.0); PLATELET COUNT 98 TH/MM3 (150-450); RED BLOOD COUNT 3.26 MIL/MM3 (4.00-5.30); RED CELL DISTRIBUTION WIDTH 15.1 % (11.6-17.2); WHITE BLOOD COUNT 13.3 TH/MM3 (4.0-11.0)
[2017-03-07 06:12] LABS: HEMO FLAGS AUTO DIFF
[2017-03-07 06:23] LABS: POTASSIUM 4.1 MEQ/L (3.5-5.1)
[2017-03-07] MEDS: HYDROmorphone HCL PF 1 MG/ML VIAL IV PUSH PRN (07:00)
[2017-03-07 08:00] VITALS: BP_SYST 78; BP_SYST 87; BP_DIAS 46; BP_DIAS 51; PULSE 73; RESP 16; TEMP 97.4; O2SAT 93
[2017-03-07] MEDS: VANCOMYCIN 500 MG VIAL (FOR ORAL USE ONLY) PO SCH ×3 (08:26→16:43)
[2017-03-07] MEDS: LOSARTAN 50 MG TAB PO SCH (08:26)
[2017-03-07] MEDS: levETIRAcetam 500 MG TAB PO SCH ×2 (08:27→22:14)
[2017-03-07] MEDS: CHLOROTHIAZIDE 250 MG TAB PO SCH (08:27)
[2017-03-07] MEDS: ATORVASTATIN 80 MG TAB PO SCH (08:28)
[2017-03-07] MEDS: LACTOBACILLUS ACIDOPHILUS TAB PO SCH ×3 (08:28→16:42)
[2017-03-07] MEDS: CHOLECALCIFEROL (VIT D3) 5000 UNIT CAP PO SCH (08:28)
[2017-03-07] MEDS: SODIUM CHLORIDE 0.9% FLUSH 10 ML FLUSH IV FLUSH SCH ×2 (08:32→22:18)
[2017-03-07 08:39] LABS: ACANTHOCYTES OCC (NORMAL); OVALOCYTES 1+ (NORMAL); PLATELET ESTIMATE SMEAR LOW (NORMAL); PLATELET MORPHOLOGY ENLARGED (NORMAL); SCAN/DIFF AUTO DIFF CONFIRMED
[2017-03-07] MEDS: INSULIN ASPART SUPPLEMENTAL SCALE SQ SCH ×4 (08:45→21:00)
--- NOTE | 2017-03-07 10:21 | HHI.NPPN ---
Subjective General Problems: Anemia Renal Failure: Chronic, Acute, Stage III Interval History She is resting. States she is drinking fluids. (Eva Marcelo) Review of Systems General Constitutional: Fatigue General Remarks generalized weakness (Eva Marcelo) Cardiovascular Cardiac: Edema (Eva Marcelo) Gastrointestinal Gastrointestinal: Heartburn (Eva Marcelo) Objective Data Data Vital Signs Date Time Temp Pulse Resp B/P (MAP) Pulse Ox O2 Delivery O2 Flow Rate FiO2 03/07/17 00:00 97.3 86 17 128/62 (84) 96 03/06/17 20:00 96.9 84 17 135/65 (88) 96 03/06/17 16:00 96.9 91 16 142/85 (104) 91 03/06/17 14:08 18 03/06/17 12:00 97.6 96 20 190/99 (129) 93 (Eva Marcelo) -: 03/07/17 0529 03/07/17 0529 Imaging Last Impressions Chest X-Ray 02/25/17 0000 Signed Impressions: Service Date/Time: Saturday, February 25, 2017 22:51 - CONCLUSION: 1. Left IJ central venous catheter projects over the central venous system. No pneumothorax. 2. Vascular congestion appears to have improved but there are still patchy areas of infiltrate predominantly in the right upper lung and left perihilar distribution. Genaro Key MD Lower Extremity Ultrasound 02/24/17 0000 Signed Impressions: Service Date/Time: February 11:34 - CONCLUSION: No evidence of deep venous thrombosis within the lower extremities. Villa Calderon MD (Eva Marcelo) Physical Exam General Appearance: No Acute Distress, Comfortable, Sleeping, Malnourished (Eva Marcelo) Throat Throat Exam: Oral Mucosa [place] & Moist (Eva Marcelo) Pulmonary Resp Exam: Clear Bilaterally, Breath Sounds Equal, No Distress (Eva Marcelo) Cardiology CV Exam: Regular, Normal Sinus Rhythm (Eva Marcelo) Gastrointestinal/Abdomen GI Exam: Soft, Non-Tender, Bowel Sounds Present (Eva Marcelo) Musculoskeletal MS Exam: Joints Intact, Atrophy, Unable to Ambulate (Eva Marcelo) Integumentary Skin Exam: Clear, Warm, Dry, Intact (Eva Marcelo) Extremeties Extremities Exam: Pitting Edema, Dependent Edema (Eva Marcelo) Neurologic Neuro Exam: Alert, Awake, Oriented (Eva Marcelo) Psychiatric Psych Exam: Appropriate Responses (Eva Marcelo) Assessment/Plan Discussed Condition With: Patient Assessment Summary: REGAN/Acute Renal Failure, Anemia of CKD, Fluid/Volume Overload, Proteinuria, Hypertension Problem List: (1) CKD (chronic kidney disease), stage III ICD Codes: N18.3 - Chronic kidney disease, stage 3 (moderate) Status: Acute Plan: Renal function is overall stable Off IVF, oral fluid intake encouraged. continue to avoid nephrotoxic agents. Doppler to evaluate for DVT bilaterally was negative. She has 1680 mg of protein in 24 hour urine collection, she does have significant proteinuria, but not in the nephrotic range. On ARB. Echo from December, Grade 1 diastolic dysfunction, EF 55-60% Continue Diuril for diureses Repeat labs in AM. (2) Anemia ICD Codes: D64.9 - Anemia Status: Acute Plan: Improved after blood transfusion. Follow hemoglobin. (3) Hypertension ICD Codes: I10 - Hypertension Status: Acute Plan: continue Diuril On ARB for proteinuria. (4) C. difficile diarrhea ICD Codes: A04.7 - Enterocolitis due to Clostridium difficile Plan: recurrent; she is on oral vancomycin and Lactinex contact precautions taken can be discharged when no diarrhea x 1-2 days. (5) DM (diabetes mellitus) type I uncontrolled with renal manifestation ICD Codes: E10.29 - Uncontrolled type 1 diabetes mellitus with renal manifestations; E10.65 - Type 1 diabetes mellitus with hyperglycemia Status: Chronic Plan: Monitor glucose; goal 140-180 mg/dL while admitted Continue insulin therapy if needed; has had episodes of hypoglycemia. (6) Hyperosmolality and hypernatremia ICD Codes: E87.0 - Hyperosmolality and hypernatremia Plan: Encouraged oral water intake. Use Diuril for diuresis. On Plan She needs physical therapy. (Eva Marcelo) Plan patient was seen and examined. She can be discharged from renal standpoint. (Valdez Patterson MD) Problem Qualifiers (1) Hypertension: Qualified Codes: I10 - Essential (primary) hypertension (2) DM (diabetes mellitus) type I uncontrolled with renal manifestation: Eva Marcelo Mar 07, 2017 10:21 Valdez Patterson MD Mar 07, 2017 11:18
[2017-03-07] MEDS: DRONABINOL 5 MG CAP PO SCH ×2 (11:21→16:41)
[2017-03-07 12:00] VITALS: BP 151/70; PULSE 85; RESP 18; TEMP 97; O2SAT 92
[2017-03-07] MEDS: ENOXAPARIN SODIUM 30 MG/0.3 ML SYRINGE SQ SCH (13:49)
[2017-03-07 16:00] VITALS: BP_SYST 192; BP_SYST 205; BP_DIAS 91; PULSE 85; RESP 18; TEMP 98; O2SAT 98
[2017-03-07] MEDS: cloNIDine HCL 0.1 MG TAB PO PRN (16:42)
--- NOTE | 2017-03-07 17:08 | HHI.PR ---
Subjective Remarks pain controlled po improved, no nausea or vomiting Objective Vitals Vital Signs Date Time Temp Pulse Resp B/P (MAP) Pulse Ox O2 Delivery O2 Flow Rate FiO2 03/07/17 08:00 97.4 73 16 78/46 (57) 93 87/51 (63) 03/07/17 00:00 97.3 86 17 128/62 (84) 96 03/06/17 20:00 96.9 84 17 135/65 (88) 96 I/O 03/06/17 03/06/17 03/06/17 03/07/17 03/07/17 03/07/17 07:00 15:00 23:00 07:00 15:00 23:00 Intake Total 240 ml 480 ml 240 ml Output Total 200 ml Balance 240 ml 280 ml 240 ml Intake Oral 240 ml 480 ml 240 ml Output Urine Total 200 ml # Voids 3 2 3 # Bowel Movements 4 3 Result Diagram: 03/07/17 0529 03/07/17 0529 Imaging Last Impressions Chest X-Ray 02/25/17 0000 Signed Impressions: Service Date/Time: Saturday, February 25, 2017 22:51 - CONCLUSION: 1. Left IJ central venous catheter projects over the central venous system. No pneumothorax. 2. Vascular congestion appears to have improved but there are still patchy areas of infiltrate predominantly in the right upper lung and left perihilar distribution. Genaro Key MD Lower Extremity Ultrasound 02/24/17 0000 Signed Impressions: Service Date/Time: February 11:34 - CONCLUSION: No evidence of deep venous thrombosis within the lower extremities. Villa Calderon MD Objective Remarks awake and alert, no acute distress anicteric lungs no rales or wheezes regular rhythm abdomen soft, nontender no CVA tenderness extremities trace edema, good peripheral pulses neuro exam- moves all extremities spontaneously A/P Problem List: (1) Diastolic CHF, acute ICD Code: I50.31 - Acute diastolic (congestive) heart failure (2) Hypoalbuminemia ICD Code: E88.09 - Other disorders of plasma-protein metabolism, not elsewhere classified (3) DM (diabetes mellitus) type I uncontrolled with renal manifestation ICD Code: E10.29 - Uncontrolled type 1 diabetes mellitus with renal manifestations; E10.65 - Type 1 diabetes mellitus with hyperglycemia Status: Chronic (4) Hypertension ICD Code: I10 - Hypertension Status: Acute (5) Hypernatremia ICD Code: E87.0 - Hyperosmolality and hypernatremia Assessment and Plan 46-year-old female admitted secondary to recurrence of C. difficile and bilateral lower extremity edema. Recurrent C. difficile colitis - diarrhea - improved today Continue by mouth vancomycin and flagyl - taper decrease Vancomycin to 250 mg po tid 03/06 Follow clinically0 today patient Repeat CBC Urinary tract infection S/P Rocephin course Probiotics Diastolic CHF Hypertension- labile- Follow clinically- earlier this am 90/50, rechecked now 190/70 Continue on ARB, Diuril. Monitor and adjust Increased cozaar to 50 mg po daily 03/06 Bilateral lower extremity edema Nephrotic syndrome Protein malnutrition/wasting Improved Nephrology following- on Diuril and ARB- dose increased 03/06 REcheck BMP in am Diabetes mellitus type 2 Follow blood sugars- dose adjusted- good readings off meds Insulin sliding scale Diabetic diet. = History of lupus Autoimmunity Anemia of chronic disease Follow CBC. Lower extremity weakness Continue physical therapy- encouraged patient DVT prophylaxis Lovenox on hold due to possible bleeding/anemia Discharge planning SNF planned at discharge Discharge once diarrhea is determined to be resolved for at least 24 hours. Problem Qualifiers (1) DM (diabetes mellitus) type I uncontrolled with renal manifestation: (2) Hypertension: Qualified Codes: I10 - Essential (primary) hypertension Eliana Clay MD Mar 07, 2017 17:08
[2017-03-07 20:00] VITALS: BP 131/67; PULSE 83; RESP 18; TEMP 98.3; O2SAT 94
[2017-03-08 00:46] VITALS: BP 128/60; PULSE 84; RESP 18; TEMP 98.6; O2SAT 97
[2017-03-08] MEDS: metroNIDAZOLE 500 MG TAB PO SCH ×3 (05:11→21:40)
[2017-03-08 05:46] LABS: BICARBONATE 25.4 MEQ/L (21.0-32.0); POTASSIUM 3.8 MEQ/L (3.5-5.1)
[2017-03-08] MEDS: levETIRAcetam 500 MG TAB PO SCH ×2 (07:31→21:33)
[2017-03-08] MEDS: LOSARTAN 50 MG TAB PO SCH (07:32)
[2017-03-08] MEDS: CHOLECALCIFEROL (VIT D3) 5000 UNIT CAP PO SCH (07:32)
[2017-03-08] MEDS: VANCOMYCIN 500 MG VIAL (FOR ORAL USE ONLY) PO SCH ×3 (07:32→16:26)
[2017-03-08] MEDS: LACTOBACILLUS ACIDOPHILUS TAB PO SCH ×3 (07:32→16:26)
[2017-03-08] MEDS: CHLOROTHIAZIDE 250 MG TAB PO SCH (07:32)
[2017-03-08] MEDS: ATORVASTATIN 80 MG TAB PO SCH (07:33)
[2017-03-08] MEDS: SODIUM CHLORIDE 0.9% FLUSH 10 ML FLUSH IV FLUSH SCH ×2 (07:33→21:00)
[2017-03-08] MEDS: INSULIN ASPART SUPPLEMENTAL SCALE SQ SCH ×4 (07:50→21:00)
[2017-03-08 08:00] VITALS: BP 150/70; PULSE 85; RESP 19; TEMP 98.8; O2SAT 97
[2017-03-08] MEDS ORDERED: DEXTROSE 5% IN WATE 1000ML INJ 1,000 ML IV SCH (09:15)
--- NOTE | 2017-03-08 09:18 | HHI.PR ---
Subjective Remarks smiling and interactive denies any nausea or vomiting no pain complains, no diarrhea Objective Vitals Vital Signs Date Time Temp Pulse Resp B/P (MAP) Pulse Ox O2 Delivery O2 Flow Rate FiO2 03/08/17 08:00 98.8 85 19 150/70 (96) 97 03/08/17 00:46 98.6 84 18 128/60 (82) 97 03/07/17 20:00 98.3 83 18 131/67 (88) 94 03/07/17 16:00 98.0 85 18 192/91 (124) 98 205/91 (129) 03/07/17 12:00 97.0 85 18 151/70 (97) 92 I/O 03/07/17 03/07/17 03/07/17 03/08/17 03/08/17 03/08/17 07:00 15:00 23:00 07:00 15:00 23:00 Intake Total 240 ml 480 ml 120 ml Output Total 500 ml Balance 240 ml 480 ml -500 ml 120 ml Intake Oral 240 ml 480 ml 120 ml Output Urine Total 500 ml # Voids 3 1 # Bowel Movements 3 0 Result Diagram: 03/07/17 0529 03/08/17 0504 Imaging Last Impressions Chest X-Ray 02/25/17 0000 Signed Impressions: Service Date/Time: Saturday, February 25, 2017 22:51 - CONCLUSION: 1. Left IJ central venous catheter projects over the central venous system. No pneumothorax. 2. Vascular congestion appears to have improved but there are still patchy areas of infiltrate predominantly in the right upper lung and left perihilar distribution. Genaro Key MD Lower Extremity Ultrasound 02/24/17 0000 Signed Impressions: Service Date/Time: February 11:34 - CONCLUSION: No evidence of deep venous thrombosis within the lower extremities. Villa Calderon MD Objective Remarks awake and alert, no acute distress, oriented x 3 left neck- central line in place anicteric lungs no rales or wheezes regular rhythm abdomen soft, nontender no CVA tenderness extremities trace edema, good peripheral pulses neuro exam- moves all extremities spontaneously A/P Problem List: (1) Diastolic CHF, acute ICD Code: I50.31 - Acute diastolic (congestive) heart failure (2) Hypoalbuminemia ICD Code: E88.09 - Other disorders of plasma-protein metabolism, not elsewhere classified (3) DM (diabetes mellitus) type I uncontrolled with renal manifestation ICD Code: E10.29 - Uncontrolled type 1 diabetes mellitus with renal manifestations; E10.65 - Type 1 diabetes mellitus with hyperglycemia Status: Chronic (4) Hypertension ICD Code: I10 - Hypertension Status: Acute (5) Hypernatremia ICD Code: E87.0 - Hyperosmolality and hypernatremia Assessment and Plan 46-year-old female admitted secondary to recurrence of C. difficile and bilateral lower extremity edema. Recurrent C. difficile colitis - diarrhea - improved Continue by mouth vancomycin and flagyl - taper- decrease Vancomycin to 250 mg po tid 03/06 Urinary tract infection S/P Rocephin course Probiotics Diastolic CHF Hypertension- labile- Continue on ARB, Diuril. Increased cozaar to 50 mg po daily 03/06. monitor and adjust Bilateral lower extremity edema Nephrotic syndrome Protein malnutrition/wasting Hypernatremia Na 150 Improved Nephrology following- on Diuril and ARB- dose increased 03/06 REcheck BMP in am- creatinine improving start D5W 50 cc/hr Diabetes mellitus type 2 Follow blood sugars- dose adjusted- good readings off meds Insulin sliding scale Diabetic diet. = History of lupus Autoimmunity Anemia of chronic disease Follow CBC. Lower extremity weakness Continue physical therapy- encouraged patient- getting out of bed to chair daily DVT prophylaxis Lovenox on hold due to possible bleeding/anemia Discharge planning SNF planned at discharge Discharge once diarrhea is determined to be resolved for at least 24 hours. Problem Qualifiers (1) DM (diabetes mellitus) type I uncontrolled with renal manifestation: (2) Hypertension: Qualified Codes: I10 - Essential (primary) hypertension Eliana Clay MD Mar 08, 2017 09:18
[2017-03-08] MEDS ORDERED: SODIUM CHLORIDE 23.4% INJ 38.5 MEQ in WATER STERILE FOR INJ 1,000 ML IV SCH (09:30)
--- NOTE | 2017-03-08 10:12 | HHI.NPPN ---
Subjective General Problems: Anemia Renal Failure: Chronic, Acute, Stage III Interval History Lying in bed, weak. Renal function is stable, but hypernatremia is worse. (Eva Marcelo) Review of Systems General Constitutional: Fatigue General Remarks generalized weakness (Eva Marcelo) Cardiovascular Cardiac: Edema (Eva Marcelo) Gastrointestinal Gastrointestinal: Heartburn (Eva Marcelo) Objective Data Data 03/08/17 03/09/17 19:00 07:00 Intake Total 120 ml Balance 120 ml Intake Oral 120 ml Vital Signs Date Time Temp Pulse Resp B/P (MAP) Pulse Ox O2 Delivery O2 Flow Rate FiO2 03/08/17 08:00 98.8 85 19 150/70 (96) 97 03/08/17 00:46 98.6 84 18 128/60 (82) 97 03/07/17 20:00 98.3 83 18 131/67 (88) 94 03/07/17 16:00 98.0 85 18 192/91 (124) 98 205/91 (129) 03/07/17 12:00 97.0 85 18 151/70 (97) 92 (Eva Marcelo) -: 03/07/17 0529 03/08/17 0504 Physical Exam General Appearance: No Acute Distress, Comfortable, Malnourished (Eva Marcelo) Throat Throat Exam: Oral Mucosa [place] [employer] Moist (Eva Marcelo) Pulmonary Resp Exam: Clear Bilaterally, Breath Sounds Equal, No Distress (Eva Marcelo) Cardiology CV Exam: Regular, Normal Sinus Rhythm (Eva Marcelo) Gastrointestinal/Abdomen GI Exam: Soft, Non-Tender, Bowel Sounds Present (Eva Marcelo) Musculoskeletal MS Exam: Joints Intact, Atrophy, Unable to Ambulate (Eva Marcelo) Integumentary Skin Exam: Clear, Warm, Dry, Intact (Eva Marcelo) Extremeties Extremities Exam: Pedal Pulses Palpable, Pitting Edema, Dependent Edema (Eva Marcelo) Neurologic Neuro Exam: Alert, Awake, Oriented, Moving All Extremities (Eva Marcelo) Psychiatric Psych Exam: Appropriate Responses (Eva Marcelo) Assessment/Plan Discussed Condition With: Patient Assessment Summary: REGAN/Acute Renal Failure, Anemia of CKD, Fluid/Volume Overload, Proteinuria, Hypertension Problem List: (1) CKD (chronic kidney disease), stage III ICD Codes: N18.3 - Chronic kidney disease, stage 3 (moderate) Status: Acute Plan: Renal function is stable Restart / NS for hypernatremia; oral fluid intake encouraged. continue to avoid nephrotoxic agents. Doppler to evaluate for DVT bilaterally was negative. She has 1680 mg of protein in 24 hour urine collection, she does have significant proteinuria, but not in the nephrotic range. On ARB. Echo from December, Grade 1 diastolic dysfunction, EF 55-60% Continue Diuril for diureses; give an extra dose today. Repeat labs in AM. (2) Anemia ICD Codes: D64.9 - Anemia Status: Acute Plan: Improved after blood transfusion. Follow hemoglobin. (3) Hypertension ICD Codes: I10 - Hypertension Status: Acute Plan: continue Diuril On ARB for proteinuria. (4) C. difficile diarrhea ICD Codes: A04.7 - Enterocolitis due to Clostridium difficile Plan: recurrent; she is on oral vancomycin and Lactinex contact precautions taken can be discharged when no diarrhea x 1-2 days. (5) DM (diabetes mellitus) type I uncontrolled with renal manifestation ICD Codes: E10.29 - Uncontrolled type 1 diabetes mellitus with renal manifestations; E10.65 - Type 1 diabetes mellitus with hyperglycemia Status: Chronic Plan: Monitor glucose; goal 140-180 mg/dL while admitted Continue insulin therapy if needed; has had episodes of hypoglycemia. (6) Hyperosmolality and hypernatremia ICD Codes: E87.0 - Hyperosmolality and hypernatremia Plan: Encouraged oral water intake. Use Diuril for diuresis. On 06/16NS (Eva Marcelo) Plan patient was seen and examined. Start scheduled water intake to drink. She can be discharged from renal standpoint. (Valdez Patterson MD) Problem Qualifiers (1) Hypertension: Qualified Codes: I10 - Essential (primary) hypertension (2) DM (diabetes mellitus) type I uncontrolled with renal manifestation: Eva Marcelo Mar 08, 2017 10:11 Valdez Patterson MD Mar 08, 2017 10:40
[2017-03-08] MEDS: DRONABINOL 5 MG CAP PO SCH ×2 (11:20→16:27)
[2017-03-08] MEDS ORDERED: HYDROmorphone HCL PF 1 MG/ML VIAL IV PUSH PRN (11:45)
[2017-03-08 12:00] VITALS: BP 180/88; PULSE 87; RESP 19; TEMP 98.7; O2SAT 97
[2017-03-08] MEDS: cloNIDine HCL 0.1 MG TAB PO PRN (13:20)
[2017-03-08] MEDS: ENOXAPARIN SODIUM 30 MG/0.3 ML SYRINGE SQ SCH (15:31)
[2017-03-08 16:00] VITALS: BP 145/71; PULSE 93; RESP 17; TEMP 98.7; O2SAT 95
[2017-03-08] MEDS ORDERED: CHLOROTHIAZIDE SOD 500 MG VIAL IV ONE (16:00)
[2017-03-08 20:56] VITALS: BP 131/61; PULSE 86; RESP 16; TEMP 99.7; O2SAT 93
[2017-03-09] VITALS: BP 168/74; PULSE 86; RESP 16; TEMP 99.1
[2017-03-09] MEDS: metroNIDAZOLE 500 MG TAB PO SCH ×3 (05:39→22:11)
[2017-03-09 05:46] LABS: POTASSIUM 3.6 MEQ/L (3.5-5.1)
[2017-03-09 08:00] VITALS: BP_SYST 164; BP_SYST 190; BP_DIAS 81; BP_DIAS 91; PULSE 78; PULSE 87; RESP 16; RESP 19; TEMP 97.2; TEMP 97.6; O2SAT 92; O2SAT 95
[2017-03-09] MEDS: INSULIN ASPART SUPPLEMENTAL SCALE SQ SCH ×4 (08:00→21:00)
--- NOTE | 2017-03-09 10:51 | HHI.NPPN ---
Subjective General Problems: Anemia Renal Failure: Chronic, Acute, Stage III Interval History Renal function stable. She is still lying in bed unmotivated. (Eva Marcelo) Review of Systems General Constitutional: Fatigue General Remarks generalized weakness (Eva Marcelo) Cardiovascular Cardiac: Edema (Eva Marcelo) Gastrointestinal Gastrointestinal: Heartburn (vEa Marcelo) Objective Data Data 03/09/17 03/10/17 19:00 07:00 Intake Total 120 ml Balance 120 ml Intake Oral 120 ml Vital Signs Date Time Temp Pulse Resp B/P (MAP) Pulse Ox O2 Delivery O2 Flow Rate FiO2 03/09/17 08:00 97.2 87 16 164/81 (108) 92 03/09/17 00:00 99.1 86 16 168/74 (105) 03/08/17 20:56 99.7 86 16 131/61 (84) 93 03/08/17 16:00 98.7 93 17 145/71 (95) 95 03/08/17 12:00 98.7 87 19 180/88 (118) 97 (Eva Marcelo) -: 03/07/17 0529 03/09/17 0510 Physical Exam General Appearance: No Acute Distress, Comfortable, Malnourished (Eva Marcelo) Throat Throat Exam: Oral Mucosa [place] [employer] Moist (Eva Marcelo) Pulmonary Resp Exam: Clear Bilaterally, Breath Sounds Equal, No Distress (Eva Marcelo) Cardiology CV Exam: Regular, Normal Sinus Rhythm (Eva Marcelo) Gastrointestinal/Abdomen GI Exam: Soft, Non-Tender, Bowel Sounds Present (Eva Marcelo) Musculoskeletal MS Exam: Joints Intact, Atrophy, Unable to Ambulate (Eva Marcelo) Integumentary Skin Exam: Clear, Warm, Dry, Intact (Eva Marcelo) Extremeties Extremities Exam: Pedal Pulses Palpable, Pitting Edema, Dependent Edema (Eva Marcelo) Neurologic Neuro Exam: Alert, Awake, Oriented, Moving All Extremities (Eva Marcelo) Psychiatric Psych Exam: Appropriate Responses (Eva Marcelo) Assessment/Plan Discussed Condition With: Patient Assessment Summary: REGAN/Acute Renal Failure, Anemia of CKD, Fluid/Volume Overload, Proteinuria, Hypertension Problem List: (1) CKD (chronic kidney disease), stage III ICD Codes: N18.3 - Chronic kidney disease, stage 3 (moderate) Status: Acute Plan: Renal function is stable stop IVF; oral fluid intake encouraged and an order was placed to offer PO fluids every few hours. Continue diuril once daily continue to avoid nephrotoxic agents. Doppler to evaluate for DVT bilaterally was negative. She has 1680 mg of protein in 24 hour urine collection, she does have significant proteinuria, but not in the nephrotic range. On ARB. Echo from December, Grade 1 diastolic dysfunction, EF 55-60% Repeat labs in AM. (2) Anemia ICD Codes: D64.9 - Anemia Status: Acute Plan: Improved after blood transfusion. Follow hemoglobin. (3) Hypertension ICD Codes: I10 - Hypertension Status: Acute Plan: continue Diuril On ARB for proteinuria. (4) C. difficile diarrhea ICD Codes: A04.7 - Enterocolitis due to Clostridium difficile Plan: recurrent; she is on oral vancomycin and Lactinex contact precautions taken can be discharged when no diarrhea x 1-2 days. (5) DM (diabetes mellitus) type I uncontrolled with renal manifestation ICD Codes: E10.29 - Uncontrolled type 1 diabetes mellitus with renal manifestations; E10.65 - Type 1 diabetes mellitus with hyperglycemia Status: Chronic Plan: Monitor glucose; goal 140-180 mg/dL while admitted Continue insulin therapy if needed; has had episodes of hypoglycemia. (6) Hyperosmolality and hypernatremia ICD Codes: E87.0 - Hyperosmolality and hypernatremia Plan: Encouraged oral water intake. Use Diuril for diuresis. off IVF (Eva Marcelo) Plan patient was seen and examined. Agree with above assessment and plan. (Valdez Patterson MD) Problem Qualifiers (1) Hypertension: Qualified Codes: I10 - Essential (primary) hypertension (2) DM (diabetes mellitus) type I uncontrolled with renal manifestation: Eva Marcelo Mar 09, 2017 10:51 Valdez Patterson MD Mar 10, 2017 16:40
[2017-03-09] MEDS: levETIRAcetam 500 MG TAB PO SCH ×2 (11:02→22:11)
[2017-03-09] MEDS: CHOLECALCIFEROL (VIT D3) 5000 UNIT CAP PO SCH (11:02)
[2017-03-09] MEDS: LACTOBACILLUS ACIDOPHILUS TAB PO SCH ×3 (11:02→17:37)
[2017-03-09] MEDS: CHLOROTHIAZIDE 250 MG TAB PO SCH (11:02)
[2017-03-09] MEDS: VANCOMYCIN 500 MG VIAL (FOR ORAL USE ONLY) PO SCH ×3 (11:02→17:37)
[2017-03-09] MEDS: ATORVASTATIN 80 MG TAB PO SCH (11:02)
[2017-03-09] MEDS: LOSARTAN 50 MG TAB PO SCH (11:03)
[2017-03-09] MEDS: SODIUM CHLORIDE 0.9% FLUSH 10 ML FLUSH IV FLUSH SCH ×2 (11:03→22:11)
[2017-03-09 12:00] VITALS: BP 180/87; PULSE 84; RESP 16; TEMP 97.8; O2SAT 93
--- NOTE | 2017-03-09 13:02 | HHI.PR ---
Subjective Remarks needs to be encourage and motivated denies any pain per patient more appetite and ate more still with some liquid stools- "less" Objective Vitals Vital Signs Date Time Temp Pulse Resp B/P (MAP) Pulse Ox O2 Delivery O2 Flow Rate FiO2 03/09/17 08:00 97.2 87 16 164/81 (108) 92 03/09/17 00:00 99.1 86 16 168/74 (105) 03/08/17 20:56 99.7 86 16 131/61 (84) 93 03/08/17 16:00 98.7 93 17 145/71 (95) 95 I/O 03/08/17 03/08/17 03/08/17 03/09/17 03/09/17 03/09/17 07:00 15:00 23:00 07:00 15:00 23:00 Intake Total 120 ml 897 ml 672 ml 120 ml Output Total 500 ml 550 ml 550 ml Balance -500 ml 120 ml 347 ml 122 ml 120 ml Intake Oral 120 ml 760 ml 320 ml 120 ml IV Total 137 ml 352 ml Output Urine Total 500 ml 550 ml 550 ml # Voids 2 # Bowel Movements 0 2 Result Diagram: 03/07/17 0529 03/09/17 0510 Imaging Last Impressions Chest X-Ray 02/25/17 0000 Signed Impressions: Service Date/Time: Saturday, February 25, 2017 22:51 - CONCLUSION: 1. Left IJ central venous catheter projects over the central venous system. No pneumothorax. 2. Vascular congestion appears to have improved but there are still patchy areas of infiltrate predominantly in the right upper lung and left perihilar distribution. Genaro Key MD Lower Extremity Ultrasound 02/24/17 0000 Signed Impressions: Service Date/Time: February 11:34 - CONCLUSION: No evidence of deep venous thrombosis within the lower extremities. Villa Calderon MD Objective Remarks awake and alert, no acute distress, oriented x 3 left neck- central line in place anicteric lungs no rales or wheezes regular rhythm abdomen soft, nontender no CVA tenderness extremities trace edema, good peripheral pulses neuro exam- moves all extremities spontaneously A/P Problem List: (1) Diastolic CHF, acute ICD Code: I50.31 - Acute diastolic (congestive) heart failure (2) Hypoalbuminemia ICD Code: E88.09 - Other disorders of plasma-protein metabolism, not elsewhere classified (3) DM (diabetes mellitus) type I uncontrolled with renal manifestation ICD Code: E10.29 - Uncontrolled type 1 diabetes mellitus with renal manifestations; E10.65 - Type 1 diabetes mellitus with hyperglycemia Status: Chronic (4) Hypertension ICD Code: I10 - Hypertension Status: Acute (5) Hypernatremia ICD Code: E87.0 - Hyperosmolality and hypernatremia Assessment and Plan 46-year-old female admitted secondary to recurrence of C. difficile and bilateral lower extremity edema. Recurrent C. difficile colitis - diarrhea - improved initially now having frequent stooling Continue by mouth vancomycin and flagyl - taper decrease Vancomycin to 250 mg po tid 03/06 Follow clinically send stools for C diff again. Reconsult ID- Dr. Stanton- s/w her Urinary tract infection S/P Rocephin course Probiotics Diastolic CHF Hypertension- labile- Continue on ARB, Diuril. Monitor and adjust Increased cozaar to 50 mg po daily 03/06 Bilateral lower extremity edema Nephrotic syndrome Protein malnutrition/wasting Improved Nephrology following- on Diuril and ARB- dose increased 03/06 REcheck BMP in am Diabetes mellitus type 2 Follow blood sugars- dose adjusted- good readings off meds Insulin sliding scale Diabetic diet. = History of lupus Autoimmunity Anemia of chronic disease Follow CBC. Lower extremity weakness Continue physical therapy- encouraged patient DVT prophylaxis Lovenox on hold due to possible bleeding/anemia Discharge planning SNF planned at discharge- casework supervisor - helping - difficult Discharge once diarrhea is determined to be resolved for at least 24 hours. patient needs to be motivated Problem Qualifiers (1) DM (diabetes mellitus) type I uncontrolled with renal manifestation: (2) Hypertension: Qualified Codes: I10 - Essential (primary) hypertension Eliana Clay MD Mar 09, 2017 13:02
[2017-03-09] MEDS: DRONABINOL 5 MG CAP PO SCH ×2 (13:06→17:37)
[2017-03-09] MEDS: cloNIDine HCL 0.1 MG TAB PO PRN (13:07)
[2017-03-09 16:00] VITALS: BP 154/72; PULSE 79; RESP 16; TEMP 98.3; O2SAT 97
[2017-03-09] MEDS: ENOXAPARIN SODIUM 30 MG/0.3 ML SYRINGE SQ SCH (17:37)
[2017-03-09 20:00] VITALS: BP 144/71; PULSE 81; RESP 18; TEMP 98.4; O2SAT 92
[2017-03-10] VITALS: BP 121/65; PULSE 78; RESP 17; TEMP 98.8; O2SAT 92
[2017-03-10] MEDS: metroNIDAZOLE 500 MG TAB PO SCH ×3 (05:26→22:17)
[2017-03-10 06:23] LABS: BICARBONATE 24.5 MEQ/L (21.0-32.0); POTASSIUM 3.9 MEQ/L (3.5-5.1)
[2017-03-10 08:00] VITALS: BP 179/84; PULSE 88; RESP 18; TEMP 99.1; O2SAT 91
[2017-03-10] MEDS: INSULIN ASPART SUPPLEMENTAL SCALE SQ SCH ×4 (08:00→21:00)
[2017-03-10] MEDS: CHOLECALCIFEROL (VIT D3) 5000 UNIT CAP PO SCH (09:00)
[2017-03-10] MEDS: LACTOBACILLUS ACIDOPHILUS TAB PO SCH ×3 (09:48→17:39)
[2017-03-10] MEDS: LOSARTAN 50 MG TAB PO SCH (09:48)
[2017-03-10] MEDS: SODIUM CHLORIDE 0.9% FLUSH 10 ML FLUSH IV FLUSH SCH ×2 (09:49→22:18)
[2017-03-10] MEDS: levETIRAcetam 500 MG TAB PO SCH ×2 (09:49→22:17)
[2017-03-10] MEDS: CHLOROTHIAZIDE 250 MG TAB PO SCH (09:49)
[2017-03-10] MEDS: ATORVASTATIN 80 MG TAB PO SCH (09:50)
[2017-03-10] MEDS: VANCOMYCIN 500 MG VIAL (FOR ORAL USE ONLY) PO SCH ×2 (09:50→17:38)
--- NOTE | 2017-03-10 10:55 | HHI.PR ---
Subjective Remarks soft liquid stools- "still" will verify with staff nurse no pain Objective Vitals Vital Signs Date Time Temp Pulse Resp B/P (MAP) Pulse Ox O2 Delivery O2 Flow Rate FiO2 03/10/17 08:00 99.1 88 18 179/84 (115) 91 03/10/17 00:00 98.8 78 17 121/65 (83) 92 03/09/17 20:00 98.4 81 18 144/71 (95) 92 03/09/17 16:00 98.3 79 16 154/72 (99) 97 03/09/17 12:00 97.8 84 16 180/87 (118) 93 I/O 03/09/17 03/09/17 03/09/17 03/10/17 03/10/17 03/10/17 07:00 15:00 23:00 07:00 15:00 23:00 Intake Total 672 ml 120 ml 120 ml 60 ml Output Total 550 ml Balance 122 ml 120 ml 120 ml 60 ml Intake Oral 320 ml 120 ml 120 ml 60 ml IV Total 352 ml Output Urine Total 550 ml # Voids 2 3 0 # Bowel Movements 2 1 0 Result Diagram: 03/07/17 0529 03/10/17 0527 Imaging Last Impressions Chest X-Ray 02/25/17 0000 Signed Impressions: Service Date/Time: Saturday, February 25, 2017 22:51 - CONCLUSION: 1. Left IJ central venous catheter projects over the central venous system. No pneumothorax. 2. Vascular congestion appears to have improved but there are still patchy areas of infiltrate predominantly in the right upper lung and left perihilar distribution. Genaro Key MD Lower Extremity Ultrasound 02/24/17 0000 Signed Impressions: Service Date/Time: February 11:34 - CONCLUSION: No evidence of deep venous thrombosis within the lower extremities. Villa Calderon MD Objective Remarks awake and alert, no acute distress, oriented x 3,smiled left neck- central line in place anicteric lungs no rales or wheezes regular rhythm abdomen soft, nontender, good bowel sounds no CVA tenderness extremities trace edema, good peripheral pulses neuro exam- moves all extremities spontaneously A/P Problem List: (1) Diastolic CHF, acute ICD Code: I50.31 - Acute diastolic (congestive) heart failure (2) Hypoalbuminemia ICD Code: E88.09 - Other disorders of plasma-protein metabolism, not elsewhere classified (3) DM (diabetes mellitus) type I uncontrolled with renal manifestation ICD Code: E10.29 - Uncontrolled type 1 diabetes mellitus with renal manifestations; E10.65 - Type 1 diabetes mellitus with hyperglycemia Status: Chronic (4) Hypertension ICD Code: I10 - Hypertension Status: Acute (5) Hypernatremia ICD Code: E87.0 - Hyperosmolality and hypernatremia Assessment and Plan 46-year-old female admitted secondary to recurrence of C. difficile and bilateral lower extremity edema. Recurrent C. difficile colitis - diarrhea - improved initially now having frequent stooling Continue by mouth vancomycin and flagyl - taper decrease Vancomycin to 250 mg po tid 03/06 Follow clinically send stools for C diff repeat Reconsult ID- Dr. Stanton- s/w her 03/09 Urinary tract infection S/P Rocephin course Probiotics Diastolic CHF Hypertension- labile- Continue on ARB, Diuril. Monitor and adjust Increased cozaar to 50 mg po daily 03/06 Bilateral lower extremity edema Nephrotic syndrome Protein malnutrition/wasting Improved Nephrology following- on Diuril and ARB- dose increased 03/06 REcheck BMP in am Diabetes mellitus type 2 Follow blood sugars- dose adjusted- good readings off meds Insulin sliding scale Diabetic diet. = History of lupus Autoimmunity Anemia of chronic disease Follow CBC. Lower extremity weakness Continue physical therapy- encouraged patient DVT prophylaxis Lovenox on hold due to possible bleeding/anemia Discharge planning SNF planned at discharge- case packer - helping - difficult Discharge once diarrhea is determined to be resolved for at least 24 hours. patient needs to be motivated Problem Qualifiers (1) DM (diabetes mellitus) type I uncontrolled with renal manifestation: (2) Hypertension: Qualified Codes: I10 - Essential (primary) hypertension Eliana Clay MD Mar 10, 2017 10:55
[2017-03-10] MEDS: DRONABINOL 5 MG CAP PO SCH ×2 (11:00→17:36)
[2017-03-10 12:00] VITALS: BP 193/91; PULSE 92; RESP 19; TEMP 98.8; O2SAT 94
--- NOTE | 2017-03-10 14:25 | HHI.NPPN ---
Subjective General Problems: Anemia Renal Failure: Chronic, Acute, Stage III Interval History Renal function is stable. She still is not getting out of bed. (Eva Marcelo) Review of Systems General Constitutional: Fatigue General Remarks generalized weakness (Eva Marcelo) Cardiovascular Cardiac: Edema (Eva Marcelo) Gastrointestinal Gastrointestinal: Heartburn (Eva Marcelo) Psych Psych: Depression Psych Remarks anhedonia (Eva Marcelo) Objective Data Data Vital Signs Date Time Temp Pulse Resp B/P (MAP) Pulse Ox O2 Delivery O2 Flow Rate FiO2 03/10/17 12:00 98.8 92 19 193/91 (125) 94 03/10/17 08:00 99.1 88 18 179/84 (115) 91 03/10/17 00:00 98.8 78 17 121/65 (83) 92 03/09/17 20:00 98.4 81 18 144/71 (95) 92 03/09/17 16:00 98.3 79 16 154/72 (99) 97 (Eva Marcelo) -: 03/07/17 0529 03/10/17 0527 Physical Exam General Appearance: No Acute Distress, Comfortable, Sleeping, Malnourished (Eva Marcelo) Throat Throat Exam: Oral Mucosa [place] & Moist (Eva Marcelo) Pulmonary Resp Exam: Clear Bilaterally, Breath Sounds Equal, No Distress (Eva Marcelo) Cardiology CV Exam: Regular, Normal Sinus Rhythm (Eva Marcelo) Gastrointestinal/Abdomen GI Exam: Soft, Non-Tender, Bowel Sounds Present (Eva Marcelo) Musculoskeletal MS Exam: Joints Intact, Atrophy, Unable to Ambulate (Eva Marcelo) Integumentary Skin Exam: Clear, Warm, Dry, Intact (Eva Marcelo) Extremeties Extremities Exam: Pedal Pulses Palpable, Pitting Edema, Dependent Edema (Eva Marcelo) Neurologic Neuro Exam: Alert, Awake, Oriented, Moving All Extremities (Eva Marcelo) Psychiatric Psych Exam: Appropriate Responses (Eva Marcelo) Assessment/Plan Discussed Condition With: Patient Assessment Summary: REGAN/Acute Renal Failure, Anemia of CKD, Fluid/Volume Overload, Proteinuria, Hypertension Problem List: (1) CKD (chronic kidney disease), stage III ICD Codes: N18.3 - Chronic kidney disease, stage 3 (moderate) Status: Acute Plan: Renal function is stable off IVF; oral fluid intake encouraged and an order was placed to offer PO fluids every few hours. Continue Diuril once daily PO Low phosphorus is due to poor oral intake, replacement ordered continue to avoid nephrotoxic agents. Doppler to evaluate for DVT bilaterally was negative. She has 1680 mg of protein in 24 hour urine collection, she does have significant proteinuria, but not in the nephrotic range. On ARB. Echo from December, Grade 1 diastolic dysfunction, EF 55-60% (2) Anemia ICD Codes: D64.9 - Anemia Status: Acute Plan: Improved after blood transfusion. Follow hemoglobin. (3) Hypertension ICD Codes: I10 - Hypertension Status: Acute Plan: continue Diuril On ARB for proteinuria. (4) C. difficile diarrhea ICD Codes: A04.7 - Enterocolitis due to Clostridium difficile Plan: she is on oral vancomycin and Lactinex ID was consulted contact precautions taken can be discharged when no diarrhea x 1-2 days. (5) DM (diabetes mellitus) type I uncontrolled with renal manifestation ICD Codes: E10.29 - Uncontrolled type 1 diabetes mellitus with renal manifestations; E10.65 - Type 1 diabetes mellitus with hyperglycemia Status: Chronic Plan: Monitor glucose; goal 140-180 mg/dL while admitted Continue insulin therapy if needed; has had episodes of hypoglycemia. (6) Hyperosmolality and hypernatremia ICD Codes: E87.0 - Hyperosmolality and hypernatremia Plan: Encouraged oral water intake. Use Diuril for diuresis. off IVF Plan We will sign off at this time. She needs aggressive PT/OT and encouragement. Needs nutritional support. (Eva Marcelo) Problem List: (1) CKD (chronic kidney disease), stage III ICD Codes: N18.3 - Chronic kidney disease, stage 3 (moderate) Status: Acute Plan: Renal function is stable off IVF; oral fluid intake encouraged and an order was placed to offer PO fluids every few hours. Continue Diuril once daily PO Low phosphorus is due to poor oral intake, replacement ordered continue to avoid nephrotoxic agents. Doppler to evaluate for DVT bilaterally was negative. She has 1680 mg of protein in 24 hour urine collection, she does have significant proteinuria, but not in the nephrotic range. On ARB. Echo from December, Grade 1 diastolic dysfunction, EF 55-60% (2) Anemia ICD Codes: D64.9 - Anemia Status: Acute Plan: Improved after blood transfusion. Follow hemoglobin. (3) Hypertension ICD Codes: I10 - Hypertension Status: Acute Plan: continue Diuril On ARB for proteinuria. (4) C. difficile diarrhea ICD Codes: A04.7 - Enterocolitis due to Clostridium difficile Plan: she is on oral vancomycin and Lactinex ID was consulted contact precautions taken can be discharged when no diarrhea x 1-2 days. (5) DM (diabetes mellitus) type I uncontrolled with renal manifestation ICD Codes: E10.29 - Uncontrolled type 1 diabetes mellitus with renal manifestations; E10.65 - Type 1 diabetes mellitus with hyperglycemia Status: Chronic Plan: Monitor glucose; goal 140-180 mg/dL while admitted Continue insulin therapy if needed; has had episodes of hypoglycemia. (6) Hyperosmolality and hypernatremia ICD Codes: E87.0 - Hyperosmolality and hypernatremia Plan: Encouraged oral water intake. Use Diuril for diuresis. off IVF Plan patient was seen and examined. Very low motivation to get better. She is lying in bed all the time. Recommend to stop all narcotics, unclear why she needs narcotic medication. Needs physical therapy. Increase activity. We will see her as needed. (Valdez Patterson MD) Problem Qualifiers (1) Hypertension: Qualified Codes: I10 - Essential (primary) hypertension (2) DM (diabetes mellitus) type I uncontrolled with renal manifestation: Eva Marcelo Mar 10, 2017 14:25 Valdez Patterson MD Mar 10, 2017 17:48
[2017-03-10] MEDS: ENOXAPARIN SODIUM 30 MG/0.3 ML SYRINGE SQ SCH (15:00)
[2017-03-10 16:00] VITALS: BP 183/83; PULSE 90; RESP 18; TEMP 98.7; O2SAT 99
[2017-03-10 20:00] VITALS: BP 122/51; PULSE 92; RESP 20; TEMP 98.8; O2SAT 94
[2017-03-11] VITALS: BP 140/63; PULSE 84; RESP 18; TEMP 99; O2SAT 98
[2017-03-11] MEDS: metroNIDAZOLE 500 MG TAB PO SCH ×2 (04:57→12:36)
[2017-03-11 08:00] VITALS: BP 173/84; PULSE 89; RESP 18; TEMP 96.3; O2SAT 92
[2017-03-11] MEDS: SODIUM CHLORIDE 0.9% FLUSH 10 ML FLUSH IV FLUSH SCH ×2 (09:00→21:14)
[2017-03-11] MEDS: levETIRAcetam 500 MG TAB PO SCH ×2 (09:14→21:14)
[2017-03-11] MEDS: INSULIN ASPART SUPPLEMENTAL SCALE SQ SCH ×4 (09:14→21:00)
[2017-03-11] MEDS: LOSARTAN 50 MG TAB PO SCH (09:14)
[2017-03-11] MEDS: CHLOROTHIAZIDE 250 MG TAB PO SCH (09:15)
[2017-03-11] MEDS: VANCOMYCIN 500 MG VIAL (FOR ORAL USE ONLY) PO SCH ×4 (09:15→21:13)
[2017-03-11] MEDS: CHOLECALCIFEROL (VIT D3) 5000 UNIT CAP PO SCH (09:15)
[2017-03-11] MEDS: LACTOBACILLUS ACIDOPHILUS TAB PO SCH ×3 (09:15→18:07)
[2017-03-11] MEDS: ATORVASTATIN 80 MG TAB PO SCH (09:15)
--- NOTE | 2017-03-11 10:08 | HHI.PR ---
Subjective Remarks patient not very motivated still having loose stools aon exam- liquid stools on bedsheet compalins of"aches" wanting dilaudid discussed with her she got percocet Objective Vitals Vital Signs Date Time Temp Pulse Resp B/P (MAP) Pulse Ox O2 Delivery O2 Flow Rate FiO2 03/11/17 08:00 96.3 89 18 173/84 (113) 92 03/11/17 00:00 99.0 84 18 140/63 (88) 98 03/10/17 20:00 98.8 92 20 122/51 (74) 94 03/10/17 16:00 98.7 90 18 183/83 (116) 99 03/10/17 12:00 98.8 92 19 193/91 (125) 94 I/O 03/10/17 03/10/17 03/10/17 03/11/17 03/11/17 03/11/17 07:00 15:00 23:00 07:00 15:00 23:00 Intake Total 60 ml 0 ml Balance 60 ml 0 ml Intake Oral 60 ml 0 ml # Voids 0 5 3 # Bowel Movements 0 6 0 Result Diagram: 03/07/17 0529 03/10/17 0527 Imaging Last Impressions Chest X-Ray 02/25/17 0000 Signed Impressions: Service Date/Time: Saturday, February 25, 2017 22:51 - CONCLUSION: 1. Left IJ central venous catheter projects over the central venous system. No pneumothorax. 2. Vascular congestion appears to have improved but there are still patchy areas of infiltrate predominantly in the right upper lung and left perihilar distribution. Genaro Key MD Lower Extremity Ultrasound 02/24/17 0000 Signed Impressions: Service Date/Time: February 11:34 - CONCLUSION: No evidence of deep venous thrombosis within the lower extremities. Villa Calderon MD Objective Remarks awake and alert, no acute distress, oriented x 3,smiled anicteric lungs no rales or wheezes regular rhythm abdomen soft, nontender, good bowel sounds no CVA tenderness extremities trace edema, good peripheral pulses neuro exam- moves all extremities spontaneously A/P Problem List: (1) Diastolic CHF, acute ICD Code: I50.31 - Acute diastolic (congestive) heart failure (2) Hypoalbuminemia ICD Code: E88.09 - Other disorders of plasma-protein metabolism, not elsewhere classified (3) DM (diabetes mellitus) type I uncontrolled with renal manifestation ICD Code: E10.29 - Uncontrolled type 1 diabetes mellitus with renal manifestations; E10.65 - Type 1 diabetes mellitus with hyperglycemia Status: Chronic (4) Hypertension ICD Code: I10 - Hypertension Status: Acute (5) Hypernatremia ICD Code: E87.0 - Hyperosmolality and hypernatremia Assessment and Plan 46-year-old female admitted secondary to recurrence of C. difficile and bilateral lower extremity edema. Recurrent C. difficile colitis - diarrhea - improved initially now having frequent stooling- persistent Continue by mouth vancomycin and flagyl - taper decrease Vancomycin to 250 mg po tid 03/06 Follow clinically send stools for C diff repeat Reconsult ID- Dr. Stanton- s/w her 03/09 consider GI consult Urinary tract infection S/P Rocephin course Probiotics Diastolic CHF Hypertension- labile- Continue on ARB, Diuril. Monitor and adjust Increased cozaar to 50 mg po daily 03/06 ADd clonidine 0.1 mg po bid Bilateral lower extremity edema Nephrotic syndrome Protein malnutrition/wasting Improved Nephrology following- on Diuril and ARB- dose increased 03/06 creatinine stable Diabetes mellitus type 2 Follow blood sugars- dose adjusted- good readings off meds Insulin sliding scale Diabetic diet. = History of lupus Autoimmunity Anemia of chronic disease Follow CBC. Lower extremity weakness Continue physical therapy- encouraged patient DVT prophylaxis Lovenox on hold due to possible bleeding/anemia Discharge planning SNF planned at discharge- case assistant - helping - difficult needs more rehab patient states lives with mother patient needs to be motivated Problem Qualifiers (1) DM (diabetes mellitus) type I uncontrolled with renal manifestation: (2) Hypertension: Qualified Codes: I10 - Essential (primary) hypertension Eliana Clay MD Mar 11, 2017 10:08
[2017-03-11] MEDS ORDERED: LOPERAMIDE HCL 2 MG CAP PO ONE (10:15)
[2017-03-11] MEDS: DRONABINOL 5 MG CAP PO SCH ×2 (11:00→15:27)
[2017-03-11] MEDS: cloNIDine HCL 0.1 MG TAB PO PRN (11:55)
[2017-03-11 12:00] VITALS: BP 185/100; PULSE 100; RESP 20; TEMP 95.9; O2SAT 98
[2017-03-11 12:12] LABS: C. DIFF EPI 027 PRESUMPTIVE NEGATIVE (NEGATIVE)
[2017-03-11] MEDS: ENOXAPARIN SODIUM 30 MG/0.3 ML SYRINGE SQ SCH (15:27)
[2017-03-11 16:00] VITALS: BP 184/83; PULSE 93; RESP 18; TEMP 97.5; O2SAT 94
--- NOTE | 2017-03-11 16:03 | HHI.IDPN ---
Subjective Subjective Remarks re-consulted 2/2 unresolving diarrhea Pt co frequent liquid BMs afebrile repeat C.diff negative Antibiotics vanco po flagyl po Allergies: Coded Allergies: Sulfa (Sulfonamide Antibiotics) (Verified Allergy, Severe, 01/25/17) RASH aspirin (Verified Allergy, Severe, 01/25/17) RASH penicillin G (Verified Allergy, Severe, 01/25/17) banana (Verified Allergy, Intermediate, Hives, 01/25/17) adhesive (Verified Allergy, Unknown, 01/25/17) nitrofurantoin (Verified Allergy, Unknown, 01/25/17) insulin detemir (Verified Adverse Reaction, Severe, Sweats, funny feeling , mood swings, daze, 01/25/17) Objective . Vital Signs Date Time Temp Pulse Resp B/P (MAP) Pulse Ox O2 Delivery O2 Flow Rate FiO2 03/11/17 12:00 95.9 100 20 185/100 (128) 98 03/11/17 08:00 96.3 89 18 173/84 (113) 92 03/11/17 00:00 99.0 84 18 140/63 (88) 98 03/10/17 20:00 98.8 92 20 122/51 (74) 94 03/10/17 16:00 98.7 90 18 183/83 (116) 99 . Laboratory Tests Test 03/10/17 05:27 Blood Urea Nitrogen 14 MG/DL Creatinine 1.32 MG/DL Random Glucose 160 MG/DL Albumin 2.0 GM/DL Calcium Level 8.1 MG/DL Phosphorus Level 2.4 MG/DL Sodium Level 148 MEQ/L Potassium Level 3.9 MEQ/L Chloride Level 115 MEQ/L Carbon Dioxide Level 24.5 MEQ/L Anion Gap 9 MEQ/L Estimat Glomerular Filtration Rate 52 ML/MIN Imaging Last Impressions Chest X-Ray 02/25/17 0000 Signed Impressions: Service Date/Time: Saturday, February 25, 2017 22:51 - CONCLUSION: 1. Left IJ central venous catheter projects over the central venous system. No pneumothorax. 2. Vascular congestion appears to have improved but there are still patchy areas of infiltrate predominantly in the right upper lung and left perihilar distribution. Genaro Key MD Lower Extremity Ultrasound 02/24/17 0000 Signed Impressions: Service Date/Time: February 11:34 - CONCLUSION: No evidence of deep venous thrombosis within the lower extremities. Villa Calderon MD Physical Exam CONSTITUTIONAL/GENERAL: This is an adequately nourished patient, in no apparent distress. TUBES/LINES/DRAINS: SKIN: No jaundice, rashes, or lesions. Skin temperature appropriate. Not diaphoretic. EYES: Pupils equal and round and reactive. Extraocular motions intact. No scleral icterus. No injection or drainage. Fundi not examined. ENT: Hearing grossly normal. CARDIOVASCULAR: Regular rate and rhythm without murmurs, gallops, or rubs. No JVD. Peripheral pulses symmetric. RESPIRATORY/CHEST: Symmetric, unlabored respirations. Clear to auscultation. GASTROINTESTINAL: Abdomen soft, non-tender, nondistended. No hepato-splenomegaly , or palpable masses. No guarding. Bowel sounds present. MUSCULOSKELETAL: Extremities without clubbing, cyanosis, trace BLE edema. No joint tenderness or effusion noted. No calf tenderness. No mottling or clubbing. NEUROLOGICAL: Awake and alert. Motor and sensory grossly within normal limits. Follows commands. Clear speech. Moves all extremities. PSYCHIATRIC:calm, cooperative; flat afect Assessment & Plan Remarks Recurrent C.diff -persistent diarrhea Multiple med problems Rec's cont vancomycin 125 mg po qid for now dc flagyl consider colonoscopy for persistent diarrhea, C.diff negative ? postinfectious dw Elizabeth Tate RN, MD Mar 11, 2017 16:03
--- NOTE | 2017-03-11 17:41 | PD.CONS ---
HPI History of Present Illness This is a 46 year old female with multiple medical problems and multiple recent admissions including DM, lupus, hx c diff, CHF who presented with leg swelling. GI has been consulted for recurrent diarrhea. She does have hx c diff but recent tests are neg for c diff. She has had loose stool approximately three times a day for the last year or longer. She has had colonoscopy and EGD for abd pain but does not know when and cannot give me further details. NO abd pain currently. NO n/v, weight loss, or blood in stool. 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 Past Surgical History Cholecystectomy Partial hysterectomy Left foot surgery . (Jeanie Dodge) Coded Allergies: Sulfa (Sulfonamide Antibiotics) (Verified Allergy, Severe, 01/25/17) RASH aspirin (Verified Allergy, Severe, 01/25/17) RASH penicillin G (Verified Allergy, Severe, 01/25/17) banana (Verified Allergy, Intermediate, Hives, 01/25/17) adhesive (Verified Allergy, Unknown, 01/25/17) nitrofurantoin (Verified Allergy, Unknown, 01/25/17) insulin detemir (Verified Adverse Reaction, Severe, Sweats, funny feeling , mood swings, daze, 01/25/17) Family History Hypertension and diabetes mellitus in family . Social History Tobacco: None Alcohol: Occasional Illicit Drugs: None . (Jeanie Dodge) Review of Systems Constitutional: DENIES: Fever, Weight loss Eyes: DENIES: Blurred vision Ears, nose, mouth, throat: DENIES: Hearing loss Respiratory: DENIES: Hemoptysis Cardiovascular: DENIES: Chest pain Gastrointestinal: COMPLAINS OF: Diarrhea, DENIES: Abdominal pain, Black stools , Bloody stools, Constipation, Nausea, Vomiting, Anorexia, Hematemesis Genitourinary: DENIES: Hematuria Musculoskeletal: DENIES: Joint Swelling Psychiatric: COMPLAINS OF: Anxiety (Jeanie Dodge) GI Exam Vitals I&O Vital Signs Date Time Temp Pulse Resp B/P (MAP) Pulse Ox O2 Delivery O2 Flow Rate FiO2 03/11/17 16:00 97.5 93 18 184/83 (116) 94 9/29/17 12:00 95.9 100 20 185/100 (128) 98 03/11/17 08:00 96.3 89 18 173/84 (113) 92 03/11/17 00:00 99.0 84 18 140/63 (88) 98 03/10/17 20:00 98.8 92 20 122/51 (74) 94 I/O 03/10/17 03/10/17 03/10/17 03/11/17 03/11/17 03/11/17 07:00 15:00 23:00 07:00 15:00 23:00 Intake Total 60 ml 0 ml Balance 60 ml 0 ml Intake Oral 60 ml 0 ml # Voids 0 5 3 # Bowel Movements 0 6 0 Imaging Last Impressions Chest X-Ray 02/25/17 0000 Signed Impressions: Service Date/Time: Saturday, February 25, 2017 22:51 - CONCLUSION: 1. Left IJ central venous catheter projects over the central venous system. No pneumothorax. 2. Vascular congestion appears to have improved but there are still patchy areas of infiltrate predominantly in the right upper lung and left perihilar distribution. Genaro Key MD Lower Extremity Ultrasound 02/24/17 0000 Signed Impressions: Service Date/Time: February 11:34 - CONCLUSION: No evidence of deep venous thrombosis within the lower extremities. Villa Calderon MD Laboratory Test 03/11/17 10:20 Stool C. difficile Toxin (PCR) NEGATIVE Stl C. difficile Toxin Epiderm 027 PRESUMPTIVE NEGATIVE Date/Time Source Procedure Growth Status 02/23/17 03:00 Urine Clean Catch Urine Culture - Final 50-100,000 CFU/ML MIXED GRAM POSITIVE... Complete Physical Examination HEENT: PERRL; normocephalic; atraumatic; no jaundice. CHEST: CTA CARDIAC: RRR ABDOMEN: Soft, nondistended, nontender; no hepatosplenomegaly; bowel sounds are present in all four quadrants. EXTREMITIES: No clubbing, cyanosis, + BLE edema. SKIN: Normal; no rash; no jaundice. FLAKER TENDER: No focal deficits; alert and oriented times three. (Jeanie DodgeP) Assessment and Plan Plan ASSESSMENT - diarrhea - loose stools 3 times daily for over a year. hx c diff. current c diff neg. could be r/t diabetes vs cholecystectomy vs IBS vs medication CT 12/25/16--> anasarca, bilateral effusions, small to moderate ascites, no acute abdominal findings will get stool cx. at this time pt refuses colonoscopy or flex sig. - elevated LFT - KARLEY neg, hep panel 01/19/17 neg. could consider repeating hep panel - leukocytosis - ID following on vanc - CHF, UTI, HTN labile, DM2, lupus - per primary PLAN - stool enteric pathogens, WBC, O&P, occult blood - monitor labs - MATTHEW - supportive care - pt refusing endoscopy - further recs to follow This pt seen by myself and Josesito and this note is written on his behalf (Jeanie Dodge) Plan Patient was seen and examined, agree with above note, patient does not want GI workup, her diarrhea is chronic or than a year I doubt that this is related to C. difficile, could be colitis versus IBS versus related to diabetes or previous laparoscopic cholecystectomy we will check white blood cells and ova and parasite if patient changes her mind we can perform flexible sigmoidoscopy or colonoscopy (Devi Bellamy MD) Jeanie Dodge Mar 11, 2017 17:41 Devi Bellamy MD Mar 11, 2017 18:11
[2017-03-11 20:00] VITALS: BP 171/82; PULSE 84; RESP 17; TEMP 97.6; O2SAT 94
[2017-03-11] MEDS: cloNIDine HCL 0.1 MG TAB PO SCH (21:13)
[2017-03-12] VITALS: BP 133/60; PULSE 83; RESP 16; TEMP 98.2
[2017-03-12 00:41] VITALS: RESP 18; O2SAT 92
[2017-03-12] MEDS: VANCOMYCIN 500 MG VIAL (FOR ORAL USE ONLY) PO SCH ×4 (05:35→22:04)
[2017-03-12 08:00] VITALS: BP 171/84; PULSE 82; RESP 16; TEMP 96.8; O2SAT 92
[2017-03-12] MEDS: INSULIN ASPART SUPPLEMENTAL SCALE SQ SCH ×4 (08:00→21:00)
[2017-03-12] MEDS: CHOLECALCIFEROL (VIT D3) 5000 UNIT CAP PO SCH (09:00)
[2017-03-12] MEDS: LACTOBACILLUS ACIDOPHILUS TAB PO SCH ×3 (10:11→17:17)
[2017-03-12] MEDS: ATORVASTATIN 80 MG TAB PO SCH (10:11)
[2017-03-12] MEDS: CHLOROTHIAZIDE 250 MG TAB PO SCH (10:11)
[2017-03-12] MEDS: levETIRAcetam 500 MG TAB PO SCH ×2 (10:12→22:04)
[2017-03-12] MEDS: LOSARTAN 50 MG TAB PO SCH (10:12)
[2017-03-12] MEDS: cloNIDine HCL 0.1 MG TAB PO SCH ×2 (10:12→22:04)
[2017-03-12] MEDS: SODIUM CHLORIDE 0.9% FLUSH 10 ML FLUSH IV FLUSH SCH ×2 (10:14→22:04)
[2017-03-12 12:00] VITALS: BP 160/77; PULSE 83; RESP 17; TEMP 97.6; O2SAT 97
[2017-03-12] MEDS: DRONABINOL 5 MG CAP PO SCH ×2 (12:01→15:47)
[2017-03-12] MEDS: ENOXAPARIN SODIUM 30 MG/0.3 ML SYRINGE SQ SCH (15:47)
[2017-03-12 16:00] VITALS: BP 160/77; PULSE 86; RESP 17; TEMP 98.3; O2SAT 92
--- NOTE | 2017-03-12 16:08 | HHI.GIFU ---
Subjective Remarks Followup for sever diarrhea. (Kisha Marcum) Remarks Patient laying in bed comfortable, she said that her diarrhea is slightly less than before 90 no abdominal pain (Devi Bellamy MD) Objective Vitals I&O Vital Signs Date Time Temp Pulse Resp B/P (MAP) Pulse Ox O2 Delivery O2 Flow Rate FiO2 03/12/17 12:00 97.6 83 17 160/77 (104) 97 03/12/17 08:00 96.8 82 16 171/84 (113) 92 03/12/17 00:41 18 92 03/12/17 00:00 98.2 83 16 133/60 (84) 03/11/17 20:00 97.6 84 17 171/82 (111) 94 I/O 03/11/17 03/11/17 03/11/17 03/12/17 03/12/17 03/12/17 07:00 15:00 23:00 07:00 15:00 23:00 Intake Total 0 ml 480 ml Output Total 0 ml Balance 0 ml 480 ml Intake Oral 0 ml 480 ml Output Urine Total 0 ml # Voids 3 5 # Bowel Movements 0 5 0 Laboratory Date/Time Source Procedure Growth Status 03/11/17 10:20 Stool Stool Cryptosporidium Exam Pending Resulted 03/11/17 10:20 Stool Stool Stool Pus ([facility]) - Final RARE WBC Resulted 03/11/17 10:20 Stool Stool Giardia Antigen ([facility]) Pending Resulted 03/11/17 10:20 Stool Stool Stool Occult Blood ([facility]) - Final HEMOCCULT NEGATIVE Resulted 02/23/17 03:00 Urine Clean Catch Urine Culture - Final 50-100,000 CFU/ML MIXED GRAM POSITIVE... Complete Imaging Last Impressions Chest X-Ray 02/25/17 0000 Signed Impressions: Service Date/Time: Saturday, February 25, 2017 22:51 - CONCLUSION: 1. Left IJ central venous catheter projects over the central venous system. No pneumothorax. 2. Vascular congestion appears to have improved but there are still patchy areas of infiltrate predominantly in the right upper lung and left perihilar distribution. Genaro Key MD Lower Extremity Ultrasound 02/24/17 0000 Signed Impressions: Service Date/Time: February 11:34 - CONCLUSION: No evidence of deep venous thrombosis within the lower extremities. Villa Calderon MD Physical Exam HEENT: Normocephalic; atraumatic; no jaundice. NECK: Neck is supple CHEST: CTA CARDIAC: RRR with no murmur gallop or rubs. ABDOMEN: Soft, nondistended, nontender; no hepatosplenomegaly; bowel sounds are present EXTREMITIES: + BLE edema SKIN: Normal; no rash; no jaundice. MEDICAL AFFAIRS DIRECTOR: No focal deficits; alert and oriented x 3 (Kisha Marcum) Assessment and Plan Plan ASSESSMENT - Diarrhea, loose stools 3 times daily for over a year. hx c diff. Current c diff neg. Could be r/t diabetes vs cholecystectomy vs IBS vs medication CT 12/25/16--anasarca, bilateral effusions, small to moderate ascites, no acute abdominal findings. Stool studies--Cryptosporidium, Giardia, pending. Stool Pus, rare WBC. No enteric pathogens detected by PCR. Hemoccult negative. Patient is refusing colonoscopy or Flex Sig. - Elevated LFT , KARLEY neg, hep panel 01/19/17 neg. - Leukocytosis - ID following. Vanco. - CHF, UTI, HTN labile, DM2, lupus - per primary PLAN - Await Cryptosporidium and Giardia results - monitor labs - MATTHEW - Supportive care - Patient is refusing endoscopy. - Further recommendations to follow based on results of above. Patient seen and examined by Dr. Bellamy and myself and this note is written on his behalf. (Kisha Marcum) Plan Agree with above note, await results from testing of the stool, patient refusing any procedures she said she had colonoscopy in the last year (Devi Bellamy MD) Kisha Marcum Mar 12, 2017 16:08 Devi Bellamy MD Mar 12, 2017 20:57
--- NOTE | 2017-03-12 18:41 | HHI.PR ---
Subjective Remarks BM per patient once so far today long motivational talk with her again states good po, no nausea or vomiting sat on the chair - out of bed for 3 hours today Objective Vitals Vital Signs Date Time Temp Pulse Resp B/P (MAP) Pulse Ox O2 Delivery O2 Flow Rate FiO2 03/12/17 16:00 98.3 86 17 160/77 (104) 92 03/12/17 12:00 97.6 83 17 160/77 (104) 97 03/12/17 08:00 96.8 82 16 171/84 (113) 92 03/12/17 00:41 18 92 03/12/17 00:00 98.2 83 16 133/60 (84) 03/11/17 20:00 97.6 84 17 171/82 (111) 94 I/O 03/11/17 03/11/17 03/11/17 03/12/17 03/12/17 03/12/17 07:00 15:00 23:00 07:00 15:00 23:00 Intake Total 0 ml 480 ml 720 ml Output Total 0 ml Balance 0 ml 480 ml 720 ml Intake Oral 0 ml 480 ml 720 ml Output Urine Total 0 ml # Voids 3 5 6 # Bowel Movements 0 5 0 0 Result Diagram: 03/10/17 0527 Objective Remarks awake and alert, no acute distress, oriented x 3,smiled anicteric lungs no rales or wheezes regular rhythm abdomen soft, nontender, good bowel sounds no CVA tenderness extremities + edema, good peripheral pulses neuro exam- moves all extremities spontaneously A/P Problem List: (1) Diastolic CHF, acute ICD Code: I50.31 - Acute diastolic (congestive) heart failure (2) Hypoalbuminemia ICD Code: E88.09 - Other disorders of plasma-protein metabolism, not elsewhere classified (3) DM (diabetes mellitus) type I uncontrolled with renal manifestation ICD Code: E10.29 - Uncontrolled type 1 diabetes mellitus with renal manifestations; E10.65 - Type 1 diabetes mellitus with hyperglycemia Status: Chronic (4) Hypertension ICD Code: I10 - Hypertension Status: Acute (5) Hypernatremia ICD Code: E87.0 - Hyperosmolality and hypernatremia Assessment and Plan 46-year-old female admitted secondary to recurrence of C. difficile and bilateral lower extremity edema. Recurrent C. difficile colitis - diarrhea - improved initially now having frequent stooling- persistent Continue by mouth vancomycin and flagyl - taper decrease Vancomycin to 250 mg po tid 03/06 Follow clinically send stools for C diff repeat Reconsult ID- Dr. Stanton- s/w her 03/09 consider GI consult Urinary tract infection S/P Rocephin course Probiotics Diastolic CHF Hypertension- labile- Continue on ARB, Diuril. Monitor and adjust Increased cozaar to 50 mg po daily 03/06 ADd clonidine 0.1 mg po bid Bilateral lower extremity edema Nephrotic syndrome Protein malnutrition/wasting Improved Nephrology following- on Diuril and ARB- dose increased 03/06 creatinine stable Diabetes mellitus type 2 Follow blood sugars- dose adjusted- good readings off meds Insulin sliding scale Diabetic diet. = History of lupus Autoimmunity Anemia of chronic disease Follow CBC. Lower extremity weakness Continue physical therapy- encouraged patient DVT prophylaxis Lovenox on hold due to possible bleeding/anemia Discharge planning SNF planned at discharge- correctional case manager - helping - difficult needs more rehab patient states lives with mother patient needs to be motivated Problem Qualifiers (1) DM (diabetes mellitus) type I uncontrolled with renal manifestation: (2) Hypertension: Qualified Codes: I10 - Essential (primary) hypertension Eliana Clay MD Mar 12, 2017 18:41
[2017-03-12 20:00] VITALS: BP 127/68; PULSE 79; RESP 16; TEMP 97.8; O2SAT 92
[2017-03-13] VITALS: BP 163/75; PULSE 78; RESP 16; TEMP 96; O2SAT 92
[2017-03-13] MEDS: VANCOMYCIN 500 MG VIAL (FOR ORAL USE ONLY) PO SCH ×4 (04:51→21:11)
[2017-03-13 08:00] VITALS: BP 184/81; PULSE 98; RESP 16; TEMP 97.6; O2SAT 97
[2017-03-13] MEDS: SODIUM CHLORIDE 0.9% FLUSH 10 ML FLUSH IV FLUSH SCH ×2 (08:29→21:16)
[2017-03-13] MEDS: INSULIN ASPART SUPPLEMENTAL SCALE SQ SCH ×4 (09:42→21:00)
[2017-03-13] MEDS: LOSARTAN 50 MG TAB PO SCH (09:43)
[2017-03-13] MEDS: ATORVASTATIN 80 MG TAB PO SCH (09:43)
[2017-03-13] MEDS: LACTOBACILLUS ACIDOPHILUS TAB PO SCH ×3 (09:43→17:57)
[2017-03-13] MEDS: levETIRAcetam 500 MG TAB PO SCH ×2 (09:43→21:10)
[2017-03-13] MEDS: CHOLECALCIFEROL (VIT D3) 5000 UNIT CAP PO SCH (09:43)
[2017-03-13] MEDS: CHLOROTHIAZIDE 250 MG TAB PO SCH (09:44)
[2017-03-13] MEDS: cloNIDine HCL 0.1 MG TAB PO SCH ×2 (09:44→21:11)
--- NOTE | 2017-03-13 10:48 | HHI.GIFU ---
Subjective Remarks Resting in bed. States she has not had diarrhea or bowel movement in 2 days. Declining endoscopic procedures. Tolerating diet. (Doris Osman) Objective Vitals I&O Vital Signs Date Time Temp Pulse Resp B/P (MAP) Pulse Ox O2 Delivery O2 Flow Rate FiO2 03/13/17 08:00 97.6 98 16 184/81 (115) 97 03/13/17 00:00 96.0 78 16 163/75 (104) 92 03/12/17 20:00 97.8 79 16 127/68 (87) 92 03/12/17 16:00 98.3 86 17 160/77 (104) 92 03/12/17 12:00 97.6 83 17 160/77 (104) 97 I/O 03/12/17 03/12/17 03/12/17 03/13/17 03/13/17 03/13/17 07:00 15:00 23:00 07:00 15:00 23:00 Intake Total 480 ml 720 ml Output Total 0 ml Balance 480 ml 720 ml Intake Oral 480 ml 720 ml Output Urine Total 0 ml # Voids 6 2 # Bowel Movements 0 0 Laboratory Date/Time Source Procedure Growth Status 03/11/17 10:20 Stool Stool Cryptosporidium Exam Pending Resulted 03/11/17 10:20 Stool Stool Stool Pus ([facility]) - Final RARE WBC Resulted 03/11/17 10:20 Stool Stool Giardia Antigen ([facility]) Pending Resulted 03/11/17 10:20 Stool Stool Stool Occult Blood ([facility]) - Final HEMOCCULT NEGATIVE Resulted 02/23/17 03:00 Urine Clean Catch Urine Culture - Final 50-100,000 CFU/ML MIXED GRAM POSITIVE... Complete Imaging Last Impressions Chest X-Ray 02/25/17 0000 Signed Impressions: Service Date/Time: Saturday, February 25, 2017 22:51 - CONCLUSION: 1. Left IJ central venous catheter projects over the central venous system. No pneumothorax. 2. Vascular congestion appears to have improved but there are still patchy areas of infiltrate predominantly in the right upper lung and left perihilar distribution. Genaro Key MD Lower Extremity Ultrasound 02/24/17 0000 Signed Impressions: Service Date/Time: February 11:34 - CONCLUSION: No evidence of deep venous thrombosis within the lower extremities. Villa Calderon MD Physical Exam HEENT: Normocephalic; atraumatic; no jaundice. CHEST: CTA CARDIAC: RRR ABDOMEN: Soft, nondistended, nontender; no hepatosplenomegaly; bowel sounds are present in all four quadrants. EXTREMITIES: No clubbing, cyanosis, mild lower extremity edema SKIN: Normal; no rash; no jaundice. [employer]IVER: No focal deficits; alert and oriented times three. (Doris Osman) Assessment and Plan Plan ASSESSMENT - Chronic Diarrhea with loose stools 3 times daily for over a year and hx c diff. CDiff PCR (-). Stool cx negative, rare WBC, cryptosporidium, giardia pending. Hemoccult negative. Oral vanco, Lactinex. Refusing egd/colonoscopy, could be r/t diabetes vs cholecystectomy vs IBS vs medication. States no bm x 2 days, still does not want egd/colonoscopy/flexible sigmoidoscopy. - Elevated LFT. Improving, although last checked 03/05. Hepatitis profile in January negative, KARLEY neg - Leukocytosis. WBC 13.3. ID following, treating for recurrent CDiff. Recommend colonoscopy to evaluate for pseudomembranes, post infectious colitis- pt refusing. - CHF, UTI, HTN labile, DM2, lupus - per primary PLAN - MATTHEW - Abx per ID - Monitor labs - Monitor stool output - Refusing endoscopic evaluation- flexible sigmoidoscopy/colonoscopy - GI will sign off, please reconsult as needed - This pt seen by myself and Josesito and this note is written on his behalf (Doris Osman) Plan Patient was seen and examined, agree with above-noted, today she stated that her stool is a little bit improved, and she still refusing any procedure, we will follow up as needed thank you for the consultation (Devi Bellamy MD) Doris Osman Mar 13, 2017 10:48 Devi Bellamy MD Mar 13, 2017 17:37
--- NOTE | 2017-03-13 10:50 | HHI.PR ---
Subjective Remarks in better spirits today and more motivated- states she will try to get out of bed more- and do more activity states no stools overnight po improving Objective Vitals Vital Signs Date Time Temp Pulse Resp B/P (MAP) Pulse Ox O2 Delivery O2 Flow Rate FiO2 03/13/17 08:00 97.6 98 16 184/81 (115) 97 03/13/17 00:00 96.0 78 16 163/75 (104) 92 03/12/17 20:00 97.8 79 16 127/68 (87) 92 03/12/17 16:00 98.3 86 17 160/77 (104) 92 03/12/17 12:00 97.6 83 17 160/77 (104) 97 I/O 03/12/17 03/12/17 03/12/17 03/13/17 03/13/17 03/13/17 07:00 15:00 23:00 07:00 15:00 23:00 Intake Total 480 ml 720 ml Output Total 0 ml Balance 480 ml 720 ml Intake Oral 480 ml 720 ml Output Urine Total 0 ml # Voids 6 2 # Bowel Movements 0 0 Result Diagram: 03/10/17 0527 Objective Remarks awake and alert, no acute distress, oriented x 3,smiled anicteric lungs no rales or wheezes regular rhythm abdomen soft, nontender, good bowel sounds no CVA tenderness extremities + edema, good peripheral pulses neuro exam- moves all extremities spontaneously A/P Problem List: (1) Diastolic CHF, acute ICD Code: I50.31 - Acute diastolic (congestive) heart failure (2) Hypoalbuminemia ICD Code: E88.09 - Other disorders of plasma-protein metabolism, not elsewhere classified (3) DM (diabetes mellitus) type I uncontrolled with renal manifestation ICD Code: E10.29 - Uncontrolled type 1 diabetes mellitus with renal manifestations; E10.65 - Type 1 diabetes mellitus with hyperglycemia Status: Chronic (4) Hypertension ICD Code: I10 - Hypertension Status: Acute (5) Hypernatremia ICD Code: E87.0 - Hyperosmolality and hypernatremia Assessment and Plan 46-year-old female admitted secondary to recurrence of C. difficile and bilateral lower extremity edema. Recurrent C. difficile colitis - diarrhea - improved initially now having frequent stooling- persistent Continue by mouth vancomycin and flagyl - gradual taper decrease Vancomycin to 125 mg po qid 03/[address] Stanton ff along with Reevaluate by GI 03/11- patient refused procedures Urinary tract infection S/P Rocephin course Probiotics Diastolic CHF Hypertension- labile- Continue on ARB, Diuril. Monitor and adjust Increased cozaar to 50 mg po daily 03/06 ADd clonidine 0.1 mg po bid Bilateral lower extremity edema Nephrotic syndrome Protein malnutrition/wasting Improved Nephrology following- on Diuril and ARB- dose increased 03/06 creatinine stable Diabetes mellitus type 2 Follow blood sugars- dose adjusted- good readings off meds Insulin sliding scale Diabetic diet. = History of lupus Autoimmunity Anemia of chronic disease Follow CBC. Lower extremity weakness Continue physical therapy- encouraged patient DVT prophylaxis Lovenox on hold due to possible bleeding/anemia Discharge planning SNF planned at discharge- window caser - helping - difficult needs more rehab patient states lives with mother patient needs to be motivated Problem Qualifiers (1) DM (diabetes mellitus) type I uncontrolled with renal manifestation: (2) Hypertension: Qualified Codes: I10 - Essential (primary) hypertension Eliana Clay MD Mar 13, 2017 10:50
[2017-03-13 12:00] VITALS: BP 139/76; PULSE 105; RESP 17; TEMP 96.9; O2SAT 96
[2017-03-13] MEDS: DRONABINOL 5 MG CAP PO SCH ×2 (12:01→15:48)
[2017-03-13] MEDS: ENOXAPARIN SODIUM 30 MG/0.3 ML SYRINGE SQ SCH (15:48)
[2017-03-13 16:00] VITALS: BP 174/85; PULSE 87; RESP 17; TEMP 99; O2SAT 92
[2017-03-13 20:35] VITALS: BP 127/71; PULSE 80; RESP 17; TEMP 97.3
[2017-03-14] MEDS: VANCOMYCIN 500 MG VIAL (FOR ORAL USE ONLY) PO SCH ×4 (04:41→23:52)
[2017-03-14] MEDS: CHLOROTHIAZIDE 250 MG TAB PO SCH (07:22)
[2017-03-14] MEDS: cloNIDine HCL 0.1 MG TAB PO SCH ×2 (07:22→21:34)
[2017-03-14] MEDS: levETIRAcetam 500 MG TAB PO SCH ×2 (07:22→21:33)
[2017-03-14] MEDS: CHOLECALCIFEROL (VIT D3) 5000 UNIT CAP PO SCH (07:22)
[2017-03-14] MEDS: LOSARTAN 50 MG TAB PO SCH (07:22)
[2017-03-14] MEDS: SODIUM CHLORIDE 0.9% FLUSH 10 ML FLUSH IV FLUSH SCH ×2 (07:22→21:38)
[2017-03-14] MEDS: ATORVASTATIN 80 MG TAB PO SCH (07:23)
[2017-03-14] MEDS: LACTOBACILLUS ACIDOPHILUS TAB PO SCH ×3 (07:23→17:28)
[2017-03-14] MEDS: INSULIN ASPART SUPPLEMENTAL SCALE SQ SCH ×4 (07:44→21:00)
[2017-03-14 08:00] VITALS: BP 177/77; PULSE 81; RESP 19; TEMP 98.3; O2SAT 95
--- NOTE | 2017-03-14 09:41 | HHI.PR ---
Subjective Remarks This is a 46 year old female with multiple medical problems and multiple recent admissions including DM, lupus, hx c diff, CHF who presented with leg swelling. recurrent Diarrhea, She does have hx c diff but recent tests are neg for c diff. She has had loose stool approximately three times a day for the last year or longer. She has had colonoscopy and EGD for abd pain but does not know when and cannot give me further details. Refused further Endoscopic tests GI specialist signed off the case. seen in her bedroom no complaint. improving her bowel movements had 2 so far in 24 hours. Objective Vital Signs Date Time Temp Pulse Resp B/P (MAP) Pulse Ox O2 Delivery O2 Flow Rate FiO2 03/14/17 08:00 98.3 81 19 177/77 (110) 95 03/13/17 20:35 97.3 80 17 127/71 (89) 03/13/17 16:00 99.0 87 17 174/85 (114) 92 03/13/17 12:00 96.9 105 17 139/76 (97) 96 I/O 03/13/17 03/13/17 03/13/17 03/14/17 03/14/17 03/14/17 07:00 15:00 23:00 07:00 15:00 23:00 Intake Total 360 ml 180 ml Balance 360 ml 180 ml Intake Oral 360 ml 180 ml # Voids 2 3 2 # Bowel Movements 2 Result Diagram: 03/10/17 0527 Imaging Last Impressions Chest X-Ray 02/25/17 0000 Signed Impressions: Service Date/Time: Saturday, February 25, 2017 22:51 - CONCLUSION: 1. Left IJ central venous catheter projects over the central venous system. No pneumothorax. 2. Vascular congestion appears to have improved but there are still patchy areas of infiltrate predominantly in the right upper lung and left perihilar distribution. Genaro Key MD Lower Extremity Ultrasound 02/24/17 0000 Signed Impressions: Service Date/Time: February 11:34 - CONCLUSION: No evidence of deep venous thrombosis within the lower extremities. Villa Calderon MD Procedures None Other Results Laboratory Tests Test 02/14/17 17:00 02/22/17 14:27 02/23/17 03:00 02/25/17 13:00 B-Type Natriuretic Peptide 175 PG/ML Blood Smear Pathologist Review Erythrocyte Sedimentation Rate 65 mm/hr Reticulocyte Count 3.4 % Absolute Reticulocyte Count 94.3 MIL/L Direct Bilirubin 0.1 MG/DL Indirect Bilirubin 0.2 MG/DL Urine Color YELLOW Urine Turbidity HAZY Urine pH 5.5 Urine Specific [place] 1.010 Urine Protein 30 mg/dL Urine Glucose (UA) NEG mg/dL Urine Ketones NEG mg/dL Urine Occult Blood NEG Urine Nitrite NEG Urine Bilirubin NEG Urine Urobilinogen LESS THAN 2.0 MG/DL Urine Leukocyte Esterase LARGE Urine RBC 4 /hpf Urine WBC 15 /hpf Urine Squamous Epithelial Cells 2 /hpf Urine Bacteria OCC /hpf Urine Yeast (Budding) OCC Microscopic Urinalysis Comment CULTURE INDICATED Blood Gas Puncture Site RT RADIAL Blood Gas Patient Temperature 98.6 Blood Gas HCO3 20 mmol/L Blood Gas Base Excess -5.1 mmol/L Blood Gas Oxygen Saturation 97 % Arterial Blood pH 7.30 Arterial Blood Partial Pressure CO2 42 mmHg Arterial Blood Partial Pressure O2 298 mmHg Arterial Blood Oxygen Content 14.8 Vol % Arterial Blood Carboxyhemoglobin 1.6 % Arterial Blood Methemoglobin 1.3 % Blood Gas Hemoglobin 10.3 G/DL Oxygen Delivery Device Non-Rebreathing Mask Blood Gas Liter Flow 15 L/M Blood Gas Inspired Oxygen 100 % Test 02/25/17 23:10 02/26/17 17:00 03/01/17 05:35 03/02/17 06:48 Prothrombin Time 14.0 SEC Prothromb Time International Ratio 1.3 RATIO Activated Partial Thromboplast Time 35.2 SEC Fibrinogen 426 mg/dL Lactic Acid Level 1.5 mmol/L Ammonia 25 MCMOL/L Amylase Level 19 U/L Lipase 29 U/L Thyroid Stimulating Hormone 3rd Gen 1.490 uIU/ML Urine Total Volume 24 Hours 1350 ML Urine Total Protein 24 Hour 1638 MG/24HR Metamyelocytes 1 % Toxic Vacuolation Myelocytes 1 % Test 03/05/17 07:04 03/07/17 05:29 03/10/17 05:27 03/11/17 10:20 Differential Total Cells Counted 100 Neutrophils % (Manual) 80 % Band Neutrophils % 5 % Lymphocytes % 10 % Monocytes % 4 % Eosinophils % 1 % Neutrophils # (Manual) 10.9 TH/MM3 Blood Urea Nitrogen 27 MG/DL 14 MG/DL Creatinine 1.26 MG/DL 1.32 MG/DL Random Glucose 117 MG/DL 160 MG/DL Total Protein 5.5 GM/DL Albumin 2.2 GM/DL 2.0 GM/DL Calcium Level 7.7 MG/DL 8.1 MG/DL Phosphorus Level 2.5 MG/DL 2.4 MG/DL Magnesium Level 1.9 MG/DL Alkaline Phosphatase 321 U/L Aspartate Amino Transf (AST/SGOT) 49 U/L Alanine Aminotransferase (ALT/SGPT) 76 U/L Total Bilirubin 0.6 MG/DL Sodium Level 145 MEQ/L 148 MEQ/L Potassium Level 4.2 MEQ/L 3.9 MEQ/L Chloride Level 114 MEQ/L 115 MEQ/L Carbon Dioxide Level 25.1 MEQ/L 24.5 MEQ/L White Blood Count 13.3 TH/MM3 Red Blood Count 3.26 MIL/MM3 Hemoglobin 9.5 GM/DL Hematocrit 29.7 % Mean Corpuscular Volume 90.9 FL Mean Corpuscular Hemoglobin 29.2 PG Mean Corpuscular Hemoglobin Concent 32.2 % Red Cell Distribution Width 15.1 % Platelet Count 98 TH/MM3 Mean Platelet Volume 11.0 FL Neutrophils (%) (Auto) 85.4 % Lymphocytes (%) (Auto) 7.5 % Monocytes (%) (Auto) 4.8 % Eosinophils (%) (Auto) 1.9 % Basophils (%) (Auto) 0.4 % Neutrophils # (Auto) 11.3 TH/MM3 Lymphocytes # (Auto) 1.0 TH/MM3 Monocytes # (Auto) 0.6 TH/MM3 Eosinophils # (Auto) 0.3 TH/MM3 Basophils # (Auto) 0.1 TH/MM3 CBC Comment AUTO DIFF Differential Comment AUTO DIFF CONFIRMED Platelet Estimate LOW Platelet Morphology Comment ENLARGED Ovalocytes 1+ Acanthocytes OCC Anion Gap 9 MEQ/L Estimat Glomerular Filtration Rate 52 ML/MIN Stool C. difficile Toxin (PCR) NEGATIVE Stl C. difficile Toxin Epiderm 027 PRESUMPTIVE NEGATIVE Objective Remarks GENERAL: Awake alert and oriented x 3, no acute distress. SKIN: Warm and dry. HEAD: Atraumatic. Normocephalic. EYES: Pupils equal and round. No scleral icterus. No injection or drainage. ENT: No nasal bleeding or discharge. Mucous membranes pink and moist. NECK: Trachea midline. No JVD. CARDIOVASCULAR: Regular rate and rhythm. RESPIRATORY: No accessory muscle use. Clear to auscultation. Breath sounds equal bilaterally. GASTROINTESTINAL: Abdomen soft, non-tender, nondistended. Hepatic and splenic margins not palpable. MUSCULOSKELETAL: Extremities without clubbing, cyanosis, Edema 2+ NEUROLOGICAL: Awake and alert. No obvious cranial nerve deficits. PSYCHIATRIC: Appropriate mood and affect. Medications and IVs Current Medications Medications (Trade) Dose Ordered Sig/Marin Route Start Time Stop Time Status Last Admin (NS Flush) 2 ml UNSCH PRN IV FLUSH 02/14/17 19:45 02/22/17 20:44 (NS Flush) 2 ml BID IV FLUSH 02/14/17 21:00 03/14/17 07:22 (Tylenol) 650 mg Q4H PRN PO 02/14/17 19:45 (Zofran Inj) 4 mg Q6H PRN IVP 02/14/17 19:45 (Lipitor) 80 mg DAILY PO 02/15/17 09:00 03/14/17 07:23 (Keppra) 500 mg BID PO 02/15/17 09:00 03/14/17 07:22 (D50w (Vial) Inj) 50 ml UNSCH PRN IV 02/14/17 21:45 03/04/17 08:09 (Glucagon Inj) 1 mg UNSCH PRN OTHER 02/14/17 21:45 (NovoLOG SUPPLEMENTAL SCALE) 1 ACHS SLIDING SCALE SQ 02/16/17 07:00 03/14/17 07:44 (Vitamin D3) 5,000 units DAILY PO 02/22/17 09:00 03/14/17 07:22 (Marinol) 5 mg BID@11,16 PO 02/22/17 11:00 03/13/17 15:48 (Mag-Al Plus Susp Liq) 30 ml Q6H PRN PO 02/23/17 08:30 02/23/17 08:32 (Lactinex) 1 tab TID PO 02/23/17 13:00 03/14/17 07:23 (Diuril) 500 mg DAILY PO 02/24/17 09:00 03/14/17 07:22 Naloxone HCl 4 mg/ Dextrose 250 ml @ 12.5 mls/hr TITRATE PRN IV 02/25/17 20:00 02/26/17 00:23 (Catapres) 0.1 mg Q6H PRN PO 03/03/17 09:00 03/11/17 11:55 (Lovenox Inj) 30 mg Q24H SQ 03/04/17 15:00 03/13/17 15:48 (Cozaar) 50 mg DAILY PO 03/06/17 09:00 03/14/17 07:22 (Godley 5-325 Mg) 1 tab Q6H PRN PO 03/08/17 11:45 (VANCOMYCIN for oral use only) 125 mg Q6HR PO 03/11/17 18:00 03/14/17 04:41 (Catapres) 0.1 mg Q12HR PO 03/11/17 21:00 03/14/17 07:22 A/P Assessment and Plan 46-year-old female admitted secondary to recurrence of C. difficile and bilateral lower extremity edema. Recurrent C. difficile colitis - diarrhea - improved initially now having frequent stooling- persistent Continue by mouth vancomycin Flagyl discontinued by ID specialist. had two bowel movements in 24 hours. - gradual taper decrease Vancomycin to 125 mg po qid 03/[address] Stanton ff along with Reevaluate by GI 03/11- patient refused procedures, GI signed off the case. Urinary tract infection S/P Rocephin course Probiotics Diastolic CHF Hypertension- labile- Continue on ARB, Diuril. Monitor and adjust Increased cozaar to 50 mg po daily 03/06 ADd clonidine 0.1 mg po bid Bilateral lower extremity edema Nephrotic syndrome Protein malnutrition/wasting Improved Nephrology following- on Diuril and ARB- dose increased 03/06 creatinine stable Diabetes mellitus type 2 Follow blood sugars- dose adjusted- good readings off meds Insulin sliding scale Diabetic diet. = History of lupus Autoimmunity Anemia of chronic disease Follow CBC. Lower extremity weakness Continue physical therapy- encouraged patient ambulation. DVT prophylaxis Lovenox on hold due to possible bleeding/anemia Discharge Planning 03/14/17 I REVIEWED THE PHYSICAL THERAPY NOTES OF TODAY. PT IS ATTEMPTING TO AMBULATE WITH PHYSICAL THERAPY 8 FT TODAY. I HAVE NO ACCEPTING SNF AT THIS TIME DUE TO NO MEDICARE IN PLACE. A SSDISABILTIY APPLICATION IS PENDING AND THIS PT IS AWARE THAT SHE WILL NEED TO PARTICIPATE WITH HER PHYSICAL THERAPY SESSIONS I DO NOT HAVE AN ACCEPTING SNF AT THIS TIME.I RECEIVED A CALL FROM Jennie SILVEIRA OF [facility] TODAY AND I HAVE RETURNED HER CALLL TODAY [phone] REGARDING THE DISCHARGE STATUS FOR THIS PT Isacc Salinas MD Mar 14, 2017 09:41
[2017-03-14] MEDS: DRONABINOL 5 MG CAP PO SCH ×2 (11:05→15:37)
[2017-03-14] MEDS: cloNIDine HCL 0.1 MG TAB PO PRN (11:53)
[2017-03-14 12:00] VITALS: BP 185/85; PULSE 89; RESP 18; TEMP 98.1; O2SAT 95
[2017-03-14] MEDS: ENOXAPARIN SODIUM 30 MG/0.3 ML SYRINGE SQ SCH (15:38)
[2017-03-14] MEDS: ACETAMINOPHEN/HYDROcodone 325 MG/5 MG TAB PO PRN ×2 (15:44→21:35)
[2017-03-14 16:00] VITALS: BP 136/81; PULSE 88; RESP 18; TEMP 97.9; O2SAT 90
[2017-03-14 20:00] VITALS: BP 153/72; PULSE 79; RESP 20; TEMP 98.2; O2SAT 95
[2017-03-15] VITALS: BP 138/70; PULSE 90; RESP 17; TEMP 98.1; O2SAT 96
[2017-03-15] MEDS: VANCOMYCIN 500 MG VIAL (FOR ORAL USE ONLY) PO SCH ×3 (05:21→17:19)
[2017-03-15 08:00] VITALS: BP 143/70; PULSE 78; RESP 19; TEMP 97.2; O2SAT 90
[2017-03-15] MEDS: INSULIN ASPART SUPPLEMENTAL SCALE SQ SCH ×4 (08:00→20:47)
[2017-03-15] MEDS: LOSARTAN 50 MG TAB PO SCH (08:10)
[2017-03-15] MEDS: CHLOROTHIAZIDE 250 MG TAB PO SCH (08:10)
[2017-03-15] MEDS: LACTOBACILLUS ACIDOPHILUS TAB PO SCH ×3 (08:10→17:19)
[2017-03-15] MEDS: cloNIDine HCL 0.1 MG TAB PO SCH ×2 (08:10→20:48)
[2017-03-15] MEDS: CHOLECALCIFEROL (VIT D3) 5000 UNIT CAP PO SCH (08:11)
[2017-03-15] MEDS: levETIRAcetam 500 MG TAB PO SCH ×2 (08:11→20:48)
[2017-03-15] MEDS: ATORVASTATIN 80 MG TAB PO SCH (08:11)
[2017-03-15] MEDS: SODIUM CHLORIDE 0.9% FLUSH 10 ML FLUSH IV FLUSH SCH ×2 (08:13→20:48)
[2017-03-15] MEDS: ACETAMINOPHEN/HYDROcodone 325 MG/5 MG TAB PO PRN (08:22)
--- NOTE | 2017-03-15 08:40 | HHI.PR ---
Subjective Remarks This is a 46 year old female with multiple medical problems and multiple recent admissions including DM, lupus, hx c diff, CHF who presented with leg swelling. recurrent Diarrhea, She does have hx c diff but recent tests are neg for c diff. She has had loose stool approximately three times a day for the last year or longer. She has had colonoscopy and EGD for abd pain but does not know when and cannot give me further details. Refused further Endoscopic tests GI specialist signed off the case. seen in her bedroom no complaint. improving her bowel movements no bowel movements since yesterday night. Objective Vital Signs Date Time Temp Pulse Resp B/P (MAP) Pulse Ox O2 Delivery O2 Flow Rate FiO2 03/15/17 00:00 98.1 90 17 138/70 (92) 96 03/14/17 20:00 98.2 79 20 153/72 (99) 95 03/14/17 16:00 97.9 88 18 136/81 (99) 90 03/14/17 12:00 98.1 89 18 185/85 (118) 95 I/O 03/14/17 03/14/17 03/14/17 03/15/17 03/15/17 03/15/17 07:00 15:00 23:00 07:00 15:00 23:00 Intake Total 180 ml 450 ml Output Total 2 ml Balance 180 ml 448 ml Intake Oral 180 ml 450 ml Output Urine Total 2 ml # Voids 2 # Bowel Movements 0 Imaging Last Impressions Chest X-Ray 02/25/17 0000 Signed Impressions: Service Date/Time: Saturday, February 25, 2017 22:51 - CONCLUSION: 1. Left IJ central venous catheter projects over the central venous system. No pneumothorax. 2. Vascular congestion appears to have improved but there are still patchy areas of infiltrate predominantly in the right upper lung and left perihilar distribution. Genaro Key MD Lower Extremity Ultrasound 02/24/17 0000 Signed Impressions: Service Date/Time: February 11:34 - CONCLUSION: No evidence of deep venous thrombosis within the lower extremities. Villa Calderon MD Procedures None Other Results Laboratory Tests Test 02/14/17 17:00 02/22/17 14:27 02/23/17 03:00 02/25/17 13:00 B-Type Natriuretic Peptide 175 PG/ML Blood Smear Pathologist Review Erythrocyte Sedimentation Rate 65 mm/hr Reticulocyte Count 3.4 % Absolute Reticulocyte Count 94.3 MIL/L Direct Bilirubin 0.1 MG/DL Indirect Bilirubin 0.2 MG/DL Urine Color YELLOW Urine Turbidity HAZY Urine pH 5.5 Urine Specific [place] 1.010 Urine Protein 30 mg/dL Urine Glucose (UA) NEG mg/dL Urine Ketones NEG mg/dL Urine Occult Blood NEG Urine Nitrite NEG Urine Bilirubin NEG Urine Urobilinogen LESS THAN 2.0 MG/DL Urine Leukocyte Esterase LARGE Urine RBC 4 /hpf Urine WBC 15 /hpf Urine Squamous Epithelial Cells 2 /hpf Urine Bacteria OCC /hpf Urine Yeast (Budding) OCC Microscopic Urinalysis Comment CULTURE INDICATED Blood Gas Puncture Site RT RADIAL Blood Gas Patient Temperature 98.6 Blood Gas HCO3 20 mmol/L Blood Gas Base Excess -5.1 mmol/L Blood Gas Oxygen Saturation 97 % Arterial Blood pH 7.30 Arterial Blood Partial Pressure CO2 42 mmHg Arterial Blood Partial Pressure O2 298 mmHg Arterial Blood Oxygen Content 14.8 Vol % Arterial Blood Carboxyhemoglobin 1.6 % Arterial Blood Methemoglobin 1.3 % Blood Gas Hemoglobin 10.3 G/DL Oxygen Delivery Device Non-Rebreathing Mask Blood Gas Liter Flow 15 L/M Blood Gas Inspired Oxygen 100 % Test 02/25/17 23:10 02/26/17 17:00 03/01/17 05:35 03/02/17 06:48 Prothrombin Time 14.0 SEC Prothromb Time International Ratio 1.3 RATIO Activated Partial Thromboplast Time 35.2 SEC Fibrinogen 426 mg/dL Lactic Acid Level 1.5 mmol/L Ammonia 25 MCMOL/L Amylase Level 19 U/L Lipase 29 U/L Thyroid Stimulating Hormone 3rd Gen 1.490 uIU/ML Urine Total Volume 24 Hours 1350 ML Urine Total Protein 24 Hour 1638 MG/24HR Metamyelocytes 1 % Toxic Vacuolation Myelocytes 1 % Test 03/05/17 07:04 03/07/17 05:29 03/10/17 05:27 03/11/17 10:20 Differential Total Cells Counted 100 Neutrophils % (Manual) 80 % Band Neutrophils % 5 % Lymphocytes % 10 % Monocytes % 4 % Eosinophils % 1 % Neutrophils # (Manual) 10.9 TH/MM3 Blood Urea Nitrogen 27 MG/DL 14 MG/DL Creatinine 1.26 MG/DL 1.32 MG/DL Random Glucose 117 MG/DL 160 MG/DL Total Protein 5.5 GM/DL Albumin 2.2 GM/DL 2.0 GM/DL Calcium Level 7.7 MG/DL 8.1 MG/DL Phosphorus Level 2.5 MG/DL 2.4 MG/DL Magnesium Level 1.9 MG/DL Alkaline Phosphatase 321 U/L Aspartate Amino Transf (AST/SGOT) 49 U/L Alanine Aminotransferase (ALT/SGPT) 76 U/L Total Bilirubin 0.6 MG/DL Sodium Level 145 MEQ/L 148 MEQ/L Potassium Level 4.2 MEQ/L 3.9 MEQ/L Chloride Level 114 MEQ/L 115 MEQ/L Carbon Dioxide Level 25.1 MEQ/L 24.5 MEQ/L White Blood Count 13.3 TH/MM3 Red Blood Count 3.26 MIL/MM3 Hemoglobin 9.5 GM/DL Hematocrit 29.7 % Mean Corpuscular Volume 90.9 FL Mean Corpuscular Hemoglobin 29.2 PG Mean Corpuscular Hemoglobin Concent 32.2 % Red Cell Distribution Width 15.1 % Platelet Count 98 TH/MM3 Mean Platelet Volume 11.0 FL Neutrophils (%) (Auto) 85.4 % Lymphocytes (%) (Auto) 7.5 % Monocytes (%) (Auto) 4.8 % Eosinophils (%) (Auto) 1.9 % Basophils (%) (Auto) 0.4 % Neutrophils # (Auto) 11.3 TH/MM3 Lymphocytes # (Auto) 1.0 TH/MM3 Monocytes # (Auto) 0.6 TH/MM3 Eosinophils # (Auto) 0.3 TH/MM3 Basophils # (Auto) 0.1 TH/MM3 CBC Comment AUTO DIFF Differential Comment AUTO DIFF CONFIRMED Platelet Estimate LOW Platelet Morphology Comment ENLARGED Ovalocytes 1+ Acanthocytes OCC Anion Gap 9 MEQ/L Estimat Glomerular Filtration Rate 52 ML/MIN Stool C. difficile Toxin (PCR) NEGATIVE Stl C. difficile Toxin Epiderm 027 PRESUMPTIVE NEGATIVE Objective Remarks GENERAL: Awake alert and oriented x 3, no acute distress. SKIN: Warm and dry. HEAD: Atraumatic. Normocephalic. EYES: Pupils equal and round. No scleral icterus. No injection or drainage. ENT: No nasal bleeding or discharge. Mucous membranes pink and moist. NECK: Trachea midline. No JVD. CARDIOVASCULAR: Regular rate and rhythm. RESPIRATORY: No accessory muscle use. Clear to auscultation. Breath sounds equal bilaterally. GASTROINTESTINAL: Abdomen soft, non-tender, nondistended. Hepatic and splenic margins not palpable. MUSCULOSKELETAL: Extremities without clubbing, cyanosis, Edema 2+ NEUROLOGICAL: Awake and alert. No obvious cranial nerve deficits. PSYCHIATRIC: Appropriate mood and affect. Medications and IVs Current Medications Medications (Trade) Dose Ordered Sig/Marin Route Start Time Stop Time Status Last Admin (NS Flush) 2 ml UNSCH PRN IV FLUSH 02/14/17 19:45 02/22/17 20:44 (NS Flush) 2 ml BID IV FLUSH 02/14/17 21:00 03/15/17 08:13 (Tylenol) 650 mg Q4H PRN PO 02/14/17 19:45 (Zofran Inj) 4 mg Q6H PRN IVP 02/14/17 19:45 (Lipitor) 80 mg DAILY PO 02/15/17 09:00 03/15/17 08:11 (Keppra) 500 mg BID PO 02/15/17 09:00 03/15/17 08:11 (D50w (Vial) Inj) 50 ml UNSCH PRN IV 02/14/17 21:45 03/04/17 08:09 (Glucagon Inj) 1 mg UNSCH PRN OTHER 02/14/17 21:45 (NovoLOG SUPPLEMENTAL SCALE) 1 ACHS SLIDING SCALE SQ 02/16/17 07:00 03/15/17 08:00 (Vitamin D3) 5,000 units DAILY PO 02/22/17 09:00 03/14/17 07:22 (Marinol) 5 mg BID@11,16 PO 02/22/17 11:00 03/14/17 15:37 (Mag-Al Plus Susp Liq) 30 ml Q6H PRN PO 02/23/17 08:30 02/23/17 08:32 (Lactinex) 1 tab TID PO 02/23/17 13:00 03/15/17 08:10 (Diuril) 500 mg DAILY PO 02/24/17 09:00 03/15/17 08:10 Naloxone HCl 4 mg/ Dextrose 250 ml @ 12.5 mls/hr TITRATE PRN IV 02/25/17 20:00 02/26/17 00:23 (Catapres) 0.1 mg Q6H PRN PO 03/03/17 09:00 03/14/17 11:53 (Lovenox Inj) 30 mg Q24H SQ 03/04/17 15:00 03/14/17 15:38 (Cozaar) 50 mg DAILY PO 03/06/17 09:00 03/15/17 08:10 ([place] 5-325 Mg) 1 tab Q6H PRN PO 03/08/17 11:45 03/15/17 08:22 (VANCOMYCIN for oral use only) 125 mg Q6HR PO 03/11/17 18:00 03/15/17 05:21 (Catapres) 0.1 mg Q12HR PO 03/11/17 21:00 03/15/17 08:10 A/P Assessment and Plan 46-year-old female admitted secondary to recurrence of C. difficile and bilateral lower extremity edema. Recurrent C. difficile colitis - diarrhea - improved initially now having frequent stooling- persistent Continue by mouth vancomycin Flagyl discontinued by ID specialist. had no bowel movements in 24 hours. - gradual taper decrease Vancomycin to 125 mg po qid 03/[address] Stanton ff along with Reevaluate by GI 03/11- patient refused procedures, GI signed off the case. Urinary tract infection S/P Rocephin course Probiotics Diastolic CHF Hypertension- labile- Continue on ARB, Diuril. Monitor and adjust Increased cozaar to 50 mg po daily 03/06 ADd clonidine 0.1 mg po bid Bilateral lower extremity edema Nephrotic syndrome Protein malnutrition/wasting Improved Nephrology following- on Diuril and ARB- dose increased 03/06 creatinine stable Diabetes mellitus type 2 Follow blood sugars- dose adjusted- good readings off meds Insulin sliding scale Diabetic diet. = History of lupus Autoimmunity Anemia of chronic disease Follow CBC. Lower extremity weakness Continue physical therapy- encouraged patient ambulation. DVT prophylaxis Lovenox on hold due to possible bleeding/anemia Discharge Planning 03/14/17 I REVIEWED THE PHYSICAL THERAPY NOTES OF TODAY. PT IS ATTEMPTING TO AMBULATE WITH PHYSICAL THERAPY 8 FT TODAY. I HAVE NO ACCEPTING SNF AT THIS TIME DUE TO NO MEDICARE IN PLACE. A SSDISABILTIY APPLICATION IS PENDING AND THIS PT IS AWARE THAT SHE WILL NEED TO PARTICIPATE WITH HER PHYSICAL THERAPY SESSIONS I DO NOT HAVE AN ACCEPTING SNF AT THIS TIME.I RECEIVED A CALL FROM Jennie SILVEIRA OF [facility] TODAY AND I HAVE RETURNED HER CALLL TODAY [phone] REGARDING THE DISCHARGE STATUS FOR THIS PT Isacc Salinas MD Mar 15, 2017 08:40
[2017-03-15] MEDS: DRONABINOL 5 MG CAP PO SCH ×2 (11:47→15:45)
[2017-03-15 12:00] VITALS: BP 178/79; PULSE 83; RESP 17; TEMP 97.6; O2SAT 94
[2017-03-15] MEDS: ENOXAPARIN SODIUM 30 MG/0.3 ML SYRINGE SQ SCH (15:44)
[2017-03-15 16:00] VITALS: BP 142/74; PULSE 82; RESP 17; TEMP 97.8; O2SAT 94
[2017-03-15 20:41] VITALS: BP 111/63; PULSE 80; RESP 16; TEMP 98.7; O2SAT 94
[2017-03-16] VITALS: BP_SYST 119; BP_SYST 97; BP_DIAS 54; BP_DIAS 59; PULSE 79; PULSE 82; RESP 17; RESP 21; TEMP 97.4; TEMP 98.9; O2SAT 94; O2SAT 95
[2017-03-16] MEDS: VANCOMYCIN 500 MG VIAL (FOR ORAL USE ONLY) PO SCH ×6 (00:59→23:35)
[2017-03-16 08:00] VITALS: BP 181/85; RESP 16; TEMP 98.6
[2017-03-16] MEDS: INSULIN ASPART SUPPLEMENTAL SCALE SQ SCH ×4 (08:00→21:00)
[2017-03-16] MEDS: SODIUM CHLORIDE 0.9% FLUSH 10 ML FLUSH IV FLUSH SCH ×2 (09:00→21:51)
--- NOTE | 2017-03-16 09:38 | HHI.PR ---
Subjective Remarks This is a 46 year old female with multiple medical problems and multiple recent admissions including DM, lupus, hx c diff, CHF who presented with leg swelling. recurrent Diarrhea, She does have hx c diff but recent tests are neg for c diff. She has had loose stool approximately three times a day for the last year or longer. She has had colonoscopy and EGD for abd pain but does not know when and cannot give me further details. Refused further Endoscopic tests GI specialist signed off the case. seen in her bedroom no complaint. Continue without bowel movements, awaiting final recommendations by ID specialist will try to talk with doctor Stanton today to evaluate next step for probable discharge later today. Objective Vital Signs Date Time Temp Pulse Resp B/P (MAP) Pulse Ox O2 Delivery O2 Flow Rate FiO2 03/16/17 08:00 98.6 16 181/85 (117) Automatic Cuff 03/16/17 00:00 98.9 82 17 119/59 (79) 94 03/15/17 20:41 98.7 80 16 111/63 (79) 94 03/15/17 16:00 97.8 82 17 142/74 (96) 94 03/15/17 12:00 97.6 83 17 178/79 (112) 94 I/O 03/15/17 03/15/17 03/15/17 03/16/17 03/16/17 03/16/17 07:00 15:00 23:00 07:00 15:00 23:00 Intake Total 120 ml Balance 120 ml Intake Oral 120 ml # Voids 3 # Bowel Movements 0 Imaging Last Impressions Chest X-Ray 02/25/17 0000 Signed Impressions: Service Date/Time: Saturday, February 25, 2017 22:51 - CONCLUSION: 1. Left IJ central venous catheter projects over the central venous system. No pneumothorax. 2. Vascular congestion appears to have improved but there are still patchy areas of infiltrate predominantly in the right upper lung and left perihilar distribution. Genaro Key MD Lower Extremity Ultrasound 02/24/17 0000 Signed Impressions: Service Date/Time: February 11:34 - CONCLUSION: No evidence of deep venous thrombosis within the lower extremities. Villa Calderon MD Procedures None Other Results Laboratory Tests Test 02/14/17 17:00 02/22/17 14:27 02/23/17 03:00 02/25/17 13:00 B-Type Natriuretic Peptide 175 PG/ML Blood Smear Pathologist Review Erythrocyte Sedimentation Rate 65 mm/hr Reticulocyte Count 3.4 % Absolute Reticulocyte Count 94.3 MIL/L Direct Bilirubin 0.1 MG/DL Indirect Bilirubin 0.2 MG/DL Urine Color YELLOW Urine Turbidity HAZY Urine pH 5.5 Urine Specific [place] 1.010 Urine Protein 30 mg/dL Urine Glucose (UA) NEG mg/dL Urine Ketones NEG mg/dL Urine Occult Blood NEG Urine Nitrite NEG Urine Bilirubin NEG Urine Urobilinogen LESS THAN 2.0 MG/DL Urine Leukocyte Esterase LARGE Urine RBC 4 /hpf Urine WBC 15 /hpf Urine Squamous Epithelial Cells 2 /hpf Urine Bacteria OCC /hpf Urine Yeast (Budding) OCC Microscopic Urinalysis Comment CULTURE INDICATED Blood Gas Puncture Site RT RADIAL Blood Gas Patient Temperature 98.6 Blood Gas HCO3 20 mmol/L Blood Gas Base Excess -5.1 mmol/L Blood Gas Oxygen Saturation 97 % Arterial Blood pH 7.30 Arterial Blood Partial Pressure CO2 42 mmHg Arterial Blood Partial Pressure O2 298 mmHg Arterial Blood Oxygen Content 14.8 Vol % Arterial Blood Carboxyhemoglobin 1.6 % Arterial Blood Methemoglobin 1.3 % Blood Gas Hemoglobin 10.3 G/DL Oxygen Delivery Device Non-Rebreathing Mask Blood Gas Liter Flow 15 L/M Blood Gas Inspired Oxygen 100 % Test 02/25/17 23:10 02/26/17 17:00 03/01/17 05:35 03/02/17 06:48 Prothrombin Time 14.0 SEC Prothromb Time International Ratio 1.3 RATIO Activated Partial Thromboplast Time 35.2 SEC Fibrinogen 426 mg/dL Lactic Acid Level 1.5 mmol/L Ammonia 25 MCMOL/L Amylase Level 19 U/L Lipase 29 U/L Thyroid Stimulating Hormone 3rd Gen 1.490 uIU/ML Urine Total Volume 24 Hours 1350 ML Urine Total Protein 24 Hour 1638 MG/24HR Metamyelocytes 1 % Toxic Vacuolation Myelocytes 1 % Test 03/05/17 07:04 03/07/17 05:29 03/10/17 05:27 03/11/17 10:20 Differential Total Cells Counted 100 Neutrophils % (Manual) 80 % Band Neutrophils % 5 % Lymphocytes % 10 % Monocytes % 4 % Eosinophils % 1 % Neutrophils # (Manual) 10.9 TH/MM3 Blood Urea Nitrogen 27 MG/DL 14 MG/DL Creatinine 1.26 MG/DL 1.32 MG/DL Random Glucose 117 MG/DL 160 MG/DL Total Protein 5.5 GM/DL Albumin 2.2 GM/DL 2.0 GM/DL Calcium Level 7.7 MG/DL 8.1 MG/DL Phosphorus Level 2.5 MG/DL 2.4 MG/DL Magnesium Level 1.9 MG/DL Alkaline Phosphatase 321 U/L Aspartate Amino Transf (AST/SGOT) 49 U/L Alanine Aminotransferase (ALT/SGPT) 76 U/L Total Bilirubin 0.6 MG/DL Sodium Level 145 MEQ/L 148 MEQ/L Potassium Level 4.2 MEQ/L 3.9 MEQ/L Chloride Level 114 MEQ/L 115 MEQ/L Carbon Dioxide Level 25.1 MEQ/L 24.5 MEQ/L White Blood Count 13.3 TH/MM3 Red Blood Count 3.26 MIL/MM3 Hemoglobin 9.5 GM/DL Hematocrit 29.7 % Mean Corpuscular Volume 90.9 FL Mean Corpuscular Hemoglobin 29.2 PG Mean Corpuscular Hemoglobin Concent 32.2 % Red Cell Distribution Width 15.1 % Platelet Count 98 TH/MM3 Mean Platelet Volume 11.0 FL Neutrophils (%) (Auto) 85.4 % Lymphocytes (%) (Auto) 7.5 % Monocytes (%) (Auto) 4.8 % Eosinophils (%) (Auto) 1.9 % Basophils (%) (Auto) 0.4 % Neutrophils # (Auto) 11.3 TH/MM3 Lymphocytes # (Auto) 1.0 TH/MM3 Monocytes # (Auto) 0.6 TH/MM3 Eosinophils # (Auto) 0.3 TH/MM3 Basophils # (Auto) 0.1 TH/MM3 CBC Comment AUTO DIFF Differential Comment AUTO DIFF CONFIRMED Platelet Estimate LOW Platelet Morphology Comment ENLARGED Ovalocytes 1+ Acanthocytes OCC Anion Gap 9 MEQ/L Estimat Glomerular Filtration Rate 52 ML/MIN Stool C. difficile Toxin (PCR) NEGATIVE Stl C. difficile Toxin Epiderm 027 PRESUMPTIVE NEGATIVE Objective Remarks GENERAL: Awake alert and oriented x 3, no acute distress. SKIN: Warm and dry. HEAD: Atraumatic. Normocephalic. EYES: Pupils equal and round. No scleral icterus. No injection or drainage. ENT: No nasal bleeding or discharge. Mucous membranes pink and moist. NECK: Trachea midline. No JVD. CARDIOVASCULAR: Regular rate and rhythm. RESPIRATORY: No accessory muscle use. Clear to auscultation. Breath sounds equal bilaterally. GASTROINTESTINAL: Abdomen soft, non-tender, nondistended. Hepatic and splenic margins not palpable. MUSCULOSKELETAL: Extremities without clubbing, cyanosis, Edema 2+ NEUROLOGICAL: Awake and alert. No obvious cranial nerve deficits. PSYCHIATRIC: Appropriate mood and affect. Medications and IVs Current Medications Medications (Trade) Dose Ordered Sig/Marin Route Start Time Stop Time Status Last Admin (NS Flush) 2 ml UNSCH PRN IV FLUSH 02/14/17 19:45 02/22/17 20:44 (NS Flush) 2 ml BID IV FLUSH 02/14/17 21:00 03/15/17 20:48 (Tylenol) 650 mg Q4H PRN PO 02/14/17 19:45 (Zofran Inj) 4 mg Q6H PRN IVP 02/14/17 19:45 (Lipitor) 80 mg DAILY PO 02/15/17 09:00 03/15/17 08:11 (Keppra) 500 mg BID PO 02/15/17 09:00 03/15/17 20:48 (D50w (Vial) Inj) 50 ml UNSCH PRN IV 02/14/17 21:45 03/04/17 08:09 (Glucagon Inj) 1 mg UNSCH PRN OTHER 02/14/17 21:45 (NovoLOG SUPPLEMENTAL SCALE) 1 ACHS SLIDING SCALE SQ 02/16/17 07:00 03/15/17 17:00 (Vitamin D3) 5,000 units DAILY PO 02/22/17 09:00 03/14/17 07:22 (Marinol) 5 mg BID@11,16 PO 02/22/17 11:00 03/15/17 15:45 (Mag-Al Plus Susp Liq) 30 ml Q6H PRN PO 02/23/17 08:30 02/23/17 08:32 (Lactinex) 1 tab TID PO 02/23/17 13:00 03/15/17 17:19 (Catapres) 0.1 mg Q6H PRN PO 03/03/17 09:00 03/14/17 11:53 (Lovenox Inj) 30 mg Q24H SQ 03/04/17 15:00 03/15/17 15:44 (Cozaar) 50 mg DAILY PO 03/06/17 09:00 03/15/17 08:10 ([place] 5-325 Mg) 1 tab Q6H PRN PO 03/08/17 11:45 03/15/17 08:22 (VANCOMYCIN for oral use only) 125 mg Q6HR PO 03/11/17 18:00 03/16/17 06:20 (Catapres) 0.1 mg Q12HR PO 03/11/17 21:00 03/15/17 20:48 (Diuril) 500 mg DAILY PO 03/16/17 10:00 A/P Assessment and Plan 46-year-old female admitted secondary to recurrence of C. difficile and bilateral lower extremity edema. Recurrent C. difficile colitis - diarrhea - improved initially now having frequent stooling- persistent Continue by mouth vancomycin Flagyl discontinued by ID specialist. had no bowel movements in 24 hours. - gradual taper decrease Vancomycin to 125 mg po qid 03/11 Follow clinically No bowel movements, improving condition will try to talk during the day with ID specialist doctor Stanton to evaluate plan of care. Reevaluate by GI 03/11- patient refused procedures, GI signed off the case. Urinary tract infection S/P Rocephin course performed treated. Probiotics Diastolic CHF Hypertension- labile- Continue on ARB, Diuril. Monitor and adjust Increased cozaar to 50 mg po daily 03/06 ADd clonidine 0.1 mg po bid Bilateral lower extremity edema Nephrotic syndrome Protein malnutrition/wasting Improved Nephrology following- on Diuril and ARB- dose increased 03/06 creatinine stable Diabetes mellitus type 2 Follow blood sugars- dose adjusted- good readings off meds Insulin sliding scale Diabetic diet. = History of lupus Autoimmunity Anemia of chronic disease Follow CBC. Lower extremity weakness Continue physical therapy- encouraged patient ambulation. DVT prophylaxis Lovenox on hold due to possible bleeding/anemia Discharge Planning 03/14/17 I REVIEWED THE PHYSICAL THERAPY NOTES OF TODAY. PT IS ATTEMPTING TO AMBULATE WITH PHYSICAL THERAPY 8 FT TODAY. I HAVE NO ACCEPTING SNF AT THIS TIME DUE TO NO MEDICARE IN PLACE. A SSDISABILTIY APPLICATION IS PENDING AND THIS PT IS AWARE THAT SHE WILL NEED TO PARTICIPATE WITH HER PHYSICAL THERAPY SESSIONS I DO NOT HAVE AN ACCEPTING SNF AT THIS TIME.I RECEIVED A CALL FROM Jennie SILVEIRA OF [facility] TODAY AND I HAVE RETURNED HER CALLL TODAY [phone] REGARDING THE DISCHARGE STATUS FOR THIS PT Isacc Salinas MD Mar 16, 2017 09:38
[2017-03-16] MEDS: ATORVASTATIN 80 MG TAB PO SCH (10:16)
[2017-03-16] MEDS: LACTOBACILLUS ACIDOPHILUS TAB PO SCH ×3 (10:16→18:13)
[2017-03-16] MEDS: cloNIDine HCL 0.1 MG TAB PO SCH ×2 (10:17→21:51)
[2017-03-16] MEDS: LOSARTAN 50 MG TAB PO SCH (10:17)
[2017-03-16] MEDS: levETIRAcetam 500 MG TAB PO SCH ×2 (10:17→21:51)
[2017-03-16 12:00] VITALS: BP 135/76; PULSE 94; RESP 16; TEMP 98.5; O2SAT 93
[2017-03-16] MEDS: CHLOROTHIAZIDE 500 MG PO SCH (13:08)
[2017-03-16] MEDS: DRONABINOL 5 MG CAP PO SCH ×2 (13:08→18:13)
[2017-03-16] MEDS: CHOLECALCIFEROL (VIT D3) 5000 UNIT CAP PO SCH (13:36)
[2017-03-16 16:00] VITALS: BP 138/70; PULSE 84; RESP 18; TEMP 98.8; O2SAT 91
[2017-03-16] MEDS: ENOXAPARIN SODIUM 30 MG/0.3 ML SYRINGE SQ SCH (18:13)
[2017-03-16 20:00] VITALS: BP 126/66; PULSE 86; RESP 16; TEMP 97.4; O2SAT 92
[2017-03-17] MEDS: ACETAMINOPHEN/HYDROcodone 325 MG/5 MG TAB PO PRN ×2 (02:16→11:30)
[2017-03-17 04:00] VITALS: BP 129/76; PULSE 76; RESP 20; TEMP 96.2; O2SAT 94
[2017-03-17] MEDS: VANCOMYCIN 500 MG VIAL (FOR ORAL USE ONLY) PO SCH ×4 (05:09→22:42)
[2017-03-17 08:00] VITALS: BP 102/64; PULSE 79; RESP 16; TEMP 96.6; O2SAT 92
[2017-03-17] MEDS: INSULIN ASPART SUPPLEMENTAL SCALE SQ SCH ×4 (08:00→21:00)
--- NOTE | 2017-03-17 08:09 | HHI.PR ---
Subjective Remarks Follow up for C. Diff colitis, REGAN. Patient is currently doing well. She is sleepy. Per RN, patient's blood pressure was low with systolic in the 60s range. RN subsequently took a manual blood pressure which was also low - systolic around 80s. I went to evaluate patient. She is asymptomatic. No chest pain, SOB, fever, chills. She is resting well in bed. Manual blood pressure machine has air leak and thus it was registering low BP. Using an automatic BP machine, her systolic BP was about 102. Objective Vitals Vital Signs Date Time Temp Pulse Resp B/P (MAP) Pulse Ox O2 Delivery O2 Flow Rate FiO2 03/17/17 04:00 96.2 76 20 129/76 (93) 94 03/17/17 03:16 20 03/16/17 20:00 97.4 86 16 126/66 (86) 92 03/16/17 16:00 98.8 84 18 138/70 (92) 91 03/16/17 12:00 98.5 94 16 135/76 (95) 93 I/O 03/16/17 03/16/17 03/16/17 03/17/17 03/17/17 03/17/17 07:00 15:00 23:00 07:00 15:00 23:00 Intake Total 810 ml Balance 810 ml Intake Oral 810 ml # Voids 3 # Bowel Movements 1 Imaging Last Impressions Chest X-Ray 02/25/17 0000 Signed Impressions: Service Date/Time: Saturday, February 25, 2017 22:51 - CONCLUSION: 1. Left IJ central venous catheter projects over the central venous system. No pneumothorax. 2. Vascular congestion appears to have improved but there are still patchy areas of infiltrate predominantly in the right upper lung and left perihilar distribution. Genaro Key MD Lower Extremity Ultrasound 02/24/17 0000 Signed Impressions: Service Date/Time: February 11:34 - CONCLUSION: No evidence of deep venous thrombosis within the lower extremities. Villa Calderon MD Objective Remarks GENERAL: Alert, NAD. SKIN: Warm and dry. HEAD: Normocephalic. EYES: No scleral icterus. No injection or drainage. NECK: Supple, trachea midline. No JVD or lymphadenopathy. CARDIOVASCULAR: Regular rate and rhythm without murmurs, gallops, or rubs. RESPIRATORY: Breath sounds equal bilaterally. No accessory muscle use. GASTROINTESTINAL: Abdomen soft, non-tender, nondistended. MUSCULOSKELETAL: No cyanosis, or edema. BACK: Nontender without obvious deformity. No CVA tenderness. Procedures Left IJ central line 02/25/2017. A/P Problem List: (1) Diastolic CHF, acute ICD Code: I50.31 - Acute diastolic (congestive) heart failure (2) Hypoalbuminemia ICD Code: E88.09 - Other disorders of plasma-protein metabolism, not elsewhere classified (3) DM (diabetes mellitus) type I uncontrolled with renal manifestation ICD Code: E10.29 - Uncontrolled type 1 diabetes mellitus with renal manifestations; E10.65 - Type 1 diabetes mellitus with hyperglycemia Status: Chronic (4) Hypertension ICD Code: I10 - Hypertension Status: Acute (5) Hypernatremia ICD Code: E87.0 - Hyperosmolality and hypernatremia Assessment and Plan Ms. Lang is a 46 year old female with a history of diabetes mellitus, Stage III CKD who presented to the ED on 02/14/2017 due to bilateral lower ext swelling. She was also found to have C. Diff colitis. Patient was started on PO Vancomycin 125mg QID x 14 days. Nephrology was consulted due to suspected nephrotic syndrome. While patient had proteinuria, it did not rise to the level of nephrotic syndrome. ID recommended colonoscopy for persistent diarrhea. GI was consulted. Patient's diarrhea improved and also she refused endoscopic procedures. - Suspected hypotension - Today, we suspected hypotension. However, patient was asymptomatic. - I believe BP was low due to blood pressure machine problem. - With a different machine, systolic BP was above 100. - Recurrent C. Diff colitis - Patient is currently on Vancomycin PO 125mg Q6hrs. - We can likely initiate pulse therapy. - Clinically improved. Patient refused Endoscopic procedures as offered by GI. - Acute kidney injury - CKD Stage III - Proteinuria - Appreciate nephrology input. - Acute kidney injury appears to be resolved. Peak Creatinine 3.18. Currently around 1.30. - Continue Losartan 50mg Qday. - Diabetes mellitus - Continue sliding scale insulin. - Blood glucose well controlled - around 130-140s. - Hypernatremia - Patient is encouraged to drink more water. Will check BMP, CBC in the AM. Full code. Lovenox. Difficult discharge. CM is working on a safe discharge plan. Problem Qualifiers (1) DM (diabetes mellitus) type I uncontrolled with renal manifestation: (2) Hypertension: Qualified Codes: I10 - Essential (primary) hypertension Farhana Medrano DO Mar 17, 2017 08:09
[2017-03-17] MEDS: cloNIDine HCL 0.1 MG TAB PO SCH ×2 (09:00→21:00)
[2017-03-17] MEDS: LACTOBACILLUS ACIDOPHILUS TAB PO SCH ×3 (09:00→17:52)
[2017-03-17] MEDS: LOSARTAN 50 MG TAB PO SCH (09:00)
[2017-03-17] MEDS: CHLOROTHIAZIDE 500 MG PO SCH (09:00)
[2017-03-17] MEDS: CHOLECALCIFEROL (VIT D3) 5000 UNIT CAP PO SCH (11:30)
[2017-03-17] MEDS: DRONABINOL 5 MG CAP PO SCH ×2 (11:30→16:00)
[2017-03-17] MEDS: levETIRAcetam 500 MG TAB PO SCH ×2 (11:30→22:41)
[2017-03-17] MEDS: ATORVASTATIN 80 MG TAB PO SCH (11:31)
[2017-03-17 12:00] VITALS: BP 128/74; PULSE 96; RESP 17; TEMP 98.3; O2SAT 95
[2017-03-17] MEDS: ENOXAPARIN SODIUM 30 MG/0.3 ML SYRINGE SQ SCH (14:07)
[2017-03-17 16:00] VITALS: BP 119/65; PULSE 88; RESP 19; TEMP 98; O2SAT 93
[2017-03-17 20:00] VITALS: BP 105/66; PULSE 82; RESP 20; TEMP 97.6; O2SAT 93
[2017-03-17] MEDS: SODIUM CHLORIDE 0.9% FLUSH 10 ML FLUSH IV FLUSH SCH ×2 (21:00→22:40)
[2017-03-18] VITALS: BP 114/66; PULSE 85; RESP 20; TEMP 96.9; O2SAT 91
[2017-03-18] MEDS: VANCOMYCIN 500 MG VIAL (FOR ORAL USE ONLY) PO SCH ×4 (05:38→22:19)
[2017-03-18 08:00] VITALS: BP 129/71; PULSE 90; RESP 18; TEMP 97.9; O2SAT 92
[2017-03-18] MEDS: INSULIN ASPART SUPPLEMENTAL SCALE SQ SCH ×4 (08:00→21:00)
[2017-03-18] MEDS: CHLOROTHIAZIDE 500 MG PO SCH (09:49)
[2017-03-18] MEDS: LOSARTAN 50 MG TAB PO SCH (09:49)
[2017-03-18] MEDS: LACTOBACILLUS ACIDOPHILUS TAB PO SCH ×3 (09:49→18:00)
[2017-03-18] MEDS: levETIRAcetam 500 MG TAB PO SCH ×2 (09:49→22:21)
[2017-03-18] MEDS: ATORVASTATIN 80 MG TAB PO SCH (09:49)
[2017-03-18] MEDS: SODIUM CHLORIDE 0.9% FLUSH 10 ML FLUSH IV FLUSH SCH ×2 (09:50→21:00)
[2017-03-18] MEDS: CHOLECALCIFEROL (VIT D3) 5000 UNIT CAP PO SCH (09:50)
[2017-03-18] MEDS: cloNIDine HCL 0.1 MG TAB PO SCH ×2 (09:50→22:22)
[2017-03-18] MEDS: DRONABINOL 5 MG CAP PO SCH ×2 (11:20→16:18)
--- NOTE | 2017-03-18 11:59 | HHI.PR ---
Subjective Remarks Follow-up visit C. difficile colitis, REGAN. Patient seen and examined today. Reports she is doing okay. RN at the bedside. RN reports blood pressures been improving, no diarrhea. Denies pain and discomfort. Denies SOB/ dyspnea. Denies chest pain, palpitations, headaches, dizziness. Denies fevers, chills, n/ v/d. Objective Vitals Vital Signs Date Time Temp Pulse Resp B/P (MAP) Pulse Ox O2 Delivery O2 Flow Rate FiO2 03/18/17 08:00 97.9 90 18 129/71 (90) 92 03/18/17 00:00 96.9 85 20 114/66 (82) 91 03/17/17 20:00 97.6 82 20 105/66 (79) 93 03/17/17 16:00 98.0 88 19 119/65 (83) 93 03/17/17 12:00 98.3 96 17 128/74 (92) 95 I/O 03/17/17 03/17/17 03/17/17 03/18/17 03/18/17 03/18/17 07:00 15:00 23:00 07:00 15:00 23:00 Intake Total 300 ml 240 ml Output Total 300 ml Balance 0 ml 240 ml Intake Oral 300 ml 240 ml Output Urine Total 300 ml # Voids 2 # Bowel Movements 0 0 Imaging Last Impressions Chest X-Ray 02/25/17 0000 Signed Impressions: Service Date/Time: Saturday, February 25, 2017 22:51 - CONCLUSION: 1. Left IJ central venous catheter projects over the central venous system. No pneumothorax. 2. Vascular congestion appears to have improved but there are still patchy areas of infiltrate predominantly in the right upper lung and left perihilar distribution. Genaro Key MD Lower Extremity Ultrasound 02/24/17 0000 Signed Impressions: Service Date/Time: February 11:34 - CONCLUSION: No evidence of deep venous thrombosis within the lower extremities. Villa Calderon MD Objective Remarks GENERAL: This is a well-developed patient, in no apparent distress. SKIN: Warm and dry. HEENT: Normocephalic. Pupils equal round and reactive. Nose without bleeding. Airway patent. NECK: Trachea midline. CARDIOVASCULAR: Regular rate and rhythm without murmurs, gallops, or rubs. RESPIRATORY: Diminished bases. No wheezes, rales, or rhonchi. GASTROINTESTINAL: Abdomen soft, non-tender, nondistended. Bowel Sounds normoactive x4. MUSCULOSKELETAL: Extremities without clubbing, cyanosis, or edema. NEUROLOGICAL: Awake and alert. Oriented to place, person. Normal speech. Procedures Left IJ central line 02/25/2017. A/P Problem List: (1) Diastolic CHF, acute ICD Code: I50.31 - Acute diastolic (congestive) heart failure (2) Hypoalbuminemia ICD Code: E88.09 - Other disorders of plasma-protein metabolism, not elsewhere classified (3) DM (diabetes mellitus) type I uncontrolled with renal manifestation ICD Code: E10.29 - Uncontrolled type 1 diabetes mellitus with renal manifestations; E10.65 - Type 1 diabetes mellitus with hyperglycemia Status: Chronic (4) Hypertension ICD Code: I10 - Hypertension Status: Acute (5) Hypernatremia ICD Code: E87.0 - Hyperosmolality and hypernatremia Assessment and Plan Ms. Lang is a 46 year old female with a history of diabetes mellitus, Stage III CKD who presented to the ED on 02/14/2017 due to bilateral lower ext swelling. She was also found to have C. Diff colitis. Patient was started on PO Vancomycin 125mg QID x 14 days. Nephrology was consulted due to suspected nephrotic syndrome. While patient had proteinuria, it did not rise to the level of nephrotic syndrome. ID recommended colonoscopy for persistent diarrhea. GI was consulted. Patient's diarrhea improved and also she refused endoscopic procedures. - Suspected hypotension -Improved BP now 120s-140s - Recurrent C. Diff colitis - Patient is currently on Vancomycin PO 125mg Q6hrs. - No diarrhea or loose stools. - CDIFF negative 03/11/17 - Clinically improved. Patient refused Endoscopic procedures as offered by GI. - DC VAnco PO ajay. If patient has loose stools we'll start pulse treatment. - Acute kidney injury - CKD Stage III - Proteinuria - Appreciate nephrology input. - Acute kidney injury appears to be resolved. Peak Creatinine 3.18. - Continue Losartan 50mg Qday. - Follow renal indices. 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 - Blood glucose well controlled - around 130-140s. - Hypernatremia - Patient is encouraged to drink more water. - Improved Full code. Lovenox. Discuss with patient, nursing. Dr. Medrano Discharge Planning Case management is following and has referred the patient to [facility]. [facility] has no jail beds for now. No accepting SNF as secondary to financial status SSD/Medicaid pending. Problem Qualifiers (1) DM (diabetes mellitus) type I uncontrolled with renal manifestation: (2) Hypertension: Qualified Codes: I10 - Essential (primary) hypertension Chelo Ceron [facility] Mar 18, 2017 11:59
[2017-03-18 12:00] VITALS: BP 144/96; PULSE 99; RESP 17; TEMP 95.5; O2SAT 94
[2017-03-18 13:23] LABS: AUTOMATED NEUTROPHIL # 5.5 TH/MM3 (1.8-7.7); BASOPHIL # 0.1 TH/MM3 (0-0.2); BASOPHIL % 0.9 % (0.0-2.0); EOSINOPHIL # 0.2 TH/MM3 (0-0.4); EOSINOPHIL % 2.1 % (0.0-4.0); HEMATOCRIT 29.4 % (35.0-46.0); HEMO FLAGS DIFF FINAL; LYMPH % 15.7 % (9.0-44.0); LYMPHOCYTE # 1.2 TH/MM3 (1.0-4.8); MEAN CELL VOLUME 91.3 FL (80.0-100.0); MEAN CORPUSCULAR HEMOGLOBIN 29.7 PG (27.0-34.0); MEAN CORPUSCULAR HGB CONC 32.5 % (32.0-36.0); MONO % 7.4 % (0.0-8.0); NEUT % 73.9 % (16.0-70.0); PLATELET COUNT 165 TH/MM3 (150-450); RED BLOOD COUNT 3.22 MIL/MM3 (4.00-5.30); RED CELL DISTRIBUTION WIDTH 15.5 % (11.6-17.2); WHITE BLOOD COUNT 7.4 TH/MM3 (4.0-11.0)
[2017-03-18 13:56] LABS: POTASSIUM 3.6 MEQ/L (3.5-5.1)
[2017-03-18] MEDS: ENOXAPARIN SODIUM 30 MG/0.3 ML SYRINGE SQ SCH (15:22)
[2017-03-18 16:00] VITALS: BP 180/89; PULSE 94; RESP 18; TEMP 98.4; O2SAT 95
[2017-03-18] MEDS: cloNIDine HCL 0.1 MG TAB PO PRN (16:18)
[2017-03-18 20:00] VITALS: BP 118/70; PULSE 89; RESP 18; TEMP 97.8; O2SAT 89
[2017-03-18] MEDS: ACETAMINOPHEN/HYDROcodone 325 MG/5 MG TAB PO PRN (22:22)
[2017-03-19] VITALS: BP 130/68; PULSE 85; RESP 18; TEMP 96.6; O2SAT 83
[2017-03-19 08:00] VITALS: BP 171/80; PULSE 85; RESP 20; TEMP 97.7; O2SAT 95
[2017-03-19] MEDS: INSULIN ASPART SUPPLEMENTAL SCALE SQ SCH ×4 (08:00→20:45)
[2017-03-19] MEDS: CHLOROTHIAZIDE 500 MG PO SCH (09:36)
[2017-03-19] MEDS: levETIRAcetam 500 MG TAB PO SCH ×3 (09:36→22:00)
[2017-03-19] MEDS: ATORVASTATIN 80 MG TAB PO SCH (09:36)
[2017-03-19] MEDS: CHOLECALCIFEROL (VIT D3) 5000 UNIT CAP PO SCH (09:36)
[2017-03-19] MEDS: LOSARTAN 50 MG TAB PO SCH (09:36)
[2017-03-19] MEDS: LACTOBACILLUS ACIDOPHILUS TAB PO SCH ×3 (09:37→17:39)
[2017-03-19] MEDS: cloNIDine HCL 0.1 MG TAB PO SCH ×3 (09:37→22:01)
[2017-03-19] MEDS: SODIUM CHLORIDE 0.9% FLUSH 10 ML FLUSH IV FLUSH SCH ×2 (09:40→20:45)
--- NOTE | 2017-03-19 09:53 | HHI.PR ---
Subjective Remarks Follow-up visit C. difficile colitis, REGAN. Patient is sitting up in her bed. No acute concerns. Objective Vitals Vital Signs Date Time Temp Pulse Resp B/P (MAP) Pulse Ox O2 Delivery O2 Flow Rate FiO2 03/19/17 08:00 97.7 85 20 171/80 (110) 95 03/19/17 00:00 96.6 85 18 130/68 (88) 83 03/18/17 20:00 97.8 89 18 118/70 (86) 89 03/18/17 16:00 98.4 94 18 180/89 (119) 95 03/18/17 12:00 95.5 99 17 144/96 (112) 94 I/O 03/18/17 03/18/17 03/18/17 03/19/17 03/19/17 03/19/17 06:59 14:59 22:59 06:59 14:59 22:59 Intake Total 240 ml 340 ml 240 ml 120 ml Output Total 200 ml 300 ml Balance 240 ml 140 ml -60 ml 120 ml Intake Oral 240 ml 340 ml 240 ml 120 ml Output Urine Total 200 ml 300 ml # Voids 2 1 # Bowel Movements 0 0 Result Diagram: 03/18/17 1312 03/18/17 1312 Objective Remarks GENERAL: Alert, NAD. SKIN: Warm and dry. HEAD: Normocephalic. EYES: No scleral icterus. No injection or drainage. NECK: Supple, trachea midline. No JVD or lymphadenopathy. CARDIOVASCULAR: Regular rate and rhythm without murmurs, gallops, or rubs. RESPIRATORY: Breath sounds equal bilaterally. No accessory muscle use. GASTROINTESTINAL: Abdomen soft, non-tender, nondistended. MUSCULOSKELETAL: No cyanosis, or edema. BACK: Nontender without obvious deformity. No CVA tenderness. Procedures Left IJ central line 02/25/2017. A/P Problem List: (1) Diastolic CHF, acute ICD Code: I50.31 - Acute diastolic (congestive) heart failure (2) Hypoalbuminemia ICD Code: E88.09 - Other disorders of plasma-protein metabolism, not elsewhere classified (3) DM (diabetes mellitus) type I uncontrolled with renal manifestation ICD Code: E10.29 - Uncontrolled type 1 diabetes mellitus with renal manifestations; E10.65 - Type 1 diabetes mellitus with hyperglycemia Status: Chronic (4) Hypertension ICD Code: I10 - Hypertension Status: Acute (5) Hypernatremia ICD Code: E87.0 - Hyperosmolality and hypernatremia Assessment and Plan Ms. Lang is a 46 year old female with a history of diabetes mellitus, Stage III CKD who presented to the ED on 02/14/2017 due to bilateral lower ext swelling. She was also found to have C. Diff colitis. Patient was started on PO Vancomycin 125mg QID x 14 days. Nephrology was consulted due to suspected nephrotic syndrome. While patient had proteinuria, it did not rise to the level of nephrotic syndrome. ID recommended colonoscopy for persistent diarrhea. GI was consulted. Patient's diarrhea improved and also she refused endoscopic procedures. - Recurrent C. Diff colitis - Patient is was on Vancomycin PO 125mg Q6hrs. - No diarrhea or loose stools. - CDIFF negative 03/11/17 - Clinically improved. Patient refused Endoscopic procedures as offered by GI. - Vancomycin discontinued. If patient has loose stools we'll start pulse treatment. - Acute kidney injury - CKD Stage III - Proteinuria - Appreciate nephrology input. - Acute kidney injury appears to be resolved. Peak Creatinine 3.18. - Continue Losartan 50mg Qday. - Follow renal indices. 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 - Blood glucose well controlled - around 130-140s. - Hypernatremia - Patient is encouraged to drink more water. - Improved - Hypertension - Currently on Clonidine 0.1mg Q12hrs, Losartan 50mg Qday. - Will start Nifedipine 60mg Qday. If possible, we will wean her off Clonidine. Full code. Lovenox. Difficult placement. Problem Qualifiers (1) DM (diabetes mellitus) type I uncontrolled with renal manifestation: (2) Hypertension: Qualified Codes: I10 - Essential (primary) hypertension Farhana Medrano DO Mar 19, 2017 9:53 am
[2017-03-19] MEDS: DRONABINOL 5 MG CAP PO SCH ×2 (11:21→16:17)
[2017-03-19 12:00] VITALS: BP 170/85; PULSE 78; RESP 18; TEMP 97.5; O2SAT 95
[2017-03-19] MEDS: cloNIDine HCL 0.1 MG TAB PO PRN (13:58)
[2017-03-19] MEDS ORDERED: NIFEdipine 60 MG SUSTAINED RELEASE TAB PO ONE (14:30)
[2017-03-19] MEDS: ENOXAPARIN SODIUM 30 MG/0.3 ML SYRINGE SQ SCH (14:42)
[2017-03-19 16:00] VITALS: BP 141/84; PULSE 83; RESP 20; TEMP 96.9; O2SAT 99
[2017-03-20] VITALS: BP 144/89; PULSE 100; RESP 20; TEMP 96.3; O2SAT 91
[2017-03-20 08:00] VITALS: BP 97/53; PULSE 90; RESP 16; TEMP 97.2; O2SAT 98
[2017-03-20] MEDS: INSULIN ASPART SUPPLEMENTAL SCALE SQ SCH ×4 (08:00→21:00)
[2017-03-20] MEDS: NIFEdipine 60 MG SUSTAINED RELEASE TAB PO SCH (09:00)
[2017-03-20] MEDS: ATORVASTATIN 80 MG TAB PO SCH ×2 (09:00→11:28)
[2017-03-20] MEDS: LOSARTAN 50 MG TAB PO SCH (09:00)
[2017-03-20] MEDS: LACTOBACILLUS ACIDOPHILUS TAB PO SCH ×3 (09:00→18:00)
[2017-03-20] MEDS: levETIRAcetam 500 MG TAB PO SCH ×3 (09:00→21:00)
[2017-03-20] MEDS: SODIUM CHLORIDE 0.9% FLUSH 10 ML FLUSH IV FLUSH SCH ×2 (09:00→21:00)
[2017-03-20] MEDS: CHLOROTHIAZIDE 500 MG PO SCH (09:00)
[2017-03-20] MEDS: cloNIDine HCL 0.1 MG TAB PO SCH ×2 (09:00→21:00)
[2017-03-20] MEDS: CHOLECALCIFEROL (VIT D3) 5000 UNIT CAP PO SCH ×2 (09:00→11:28)
--- NOTE | 2017-03-20 09:49 | HHI.PR ---
Subjective Remarks Follow-up visit C. difficile colitis, REGAN. Patient is doing well. No acute concerns. No further diarrhea. She is off PO Vancomycin for C. Diff colitis. Objective Vitals Vital Signs Date Time Temp Pulse Resp B/P (MAP) Pulse Ox O2 Delivery O2 Flow Rate FiO2 03/20/17 08:00 97.2 90 16 97/53 (68) 98 03/20/17 00:00 96.3 100 20 144/89 (107) 91 03/19/17 16:00 96.9 83 20 141/84 (103) 99 03/19/17 12:00 97.5 78 18 170/85 (113) 95 I/O 03/19/17 03/19/17 03/19/17 03/20/17 03/20/17 03/20/17 06:59 14:59 22:59 06:59 14:59 22:59 Intake Total 240 ml 120 ml 1120 ml 240 ml Output Total 300 ml 600 ml Balance -60 ml 120 ml 520 ml 240 ml Intake Oral 240 ml 120 ml 1120 ml 240 ml Output Urine Total 300 ml 600 ml # Voids 1 2 # Bowel Movements 0 Result Diagram: 03/18/17 1312 03/18/17 1312 Objective Remarks GENERAL: Alert, NAD. SKIN: Warm and dry. HEAD: Normocephalic. EYES: No scleral icterus. No injection or drainage. NECK: Supple, trachea midline. No JVD or lymphadenopathy. CARDIOVASCULAR: Regular rate and rhythm without murmurs, gallops, or rubs. RESPIRATORY: Breath sounds equal bilaterally. No accessory muscle use. GASTROINTESTINAL: Abdomen soft, non-tender, nondistended. MUSCULOSKELETAL: No cyanosis, or edema. BACK: Nontender without obvious deformity. No CVA tenderness. Procedures Left IJ central line 02/25/2017. A/P Problem List: (1) Diastolic CHF, acute ICD Code: I50.31 - Acute diastolic (congestive) heart failure (2) Hypoalbuminemia ICD Code: E88.09 - Other disorders of plasma-protein metabolism, not elsewhere classified (3) DM (diabetes mellitus) type I uncontrolled with renal manifestation ICD Code: E10.29 - Uncontrolled type 1 diabetes mellitus with renal manifestations; E10.65 - Type 1 diabetes mellitus with hyperglycemia Status: Chronic (4) Hypertension ICD Code: I10 - Hypertension Status: Acute (5) Hypernatremia ICD Code: E87.0 - Hyperosmolality and hypernatremia Assessment and Plan Ms. Lang is a 46 year old female with a history of diabetes mellitus, Stage III CKD who presented to the ED on 02/14/2017 due to bilateral lower ext swelling. She was also found to have C. Diff colitis. Patient was started on PO Vancomycin 125mg QID x 14 days. Nephrology was consulted due to suspected nephrotic syndrome. While patient had proteinuria, it did not rise to the level of nephrotic syndrome. ID recommended colonoscopy for persistent diarrhea. GI was consulted. Patient's diarrhea improved and also she refused endoscopic procedures. - Recurrent C. Diff colitis - Patient is was on Vancomycin PO 125mg Q6hrs. - No diarrhea or loose stools. - CDIFF negative 03/11/17 - Clinically improved. Patient refused Endoscopic procedures as offered by GI. - Vancomycin discontinued. If patient has loose stools we'll start pulse treatment. - Acute kidney injury - CKD Stage III - Proteinuria - Appreciate nephrology input. - Acute kidney injury appears to be resolved. Peak Creatinine 3.18. - Continue Losartan 50mg Qday. - Follow renal indices. [facility] 1.31-->1.8 - Diabetes mellitus - Continue sliding scale insulin. - Blood glucose well controlled - around 130-140s. - Hypernatremia - Patient is encouraged to drink more water. - Improved - Hypertension - Currently on Clonidine 0.1mg Q12hrs, Losartan 50mg Qday. - Will start Nifedipine 60mg Qday. If possible, we will wean her off Clonidine. Full code. Lovenox. Difficult placement. Will discuss with CM on 03/21/[address]. Problem Qualifiers (1) DM (diabetes mellitus) type I uncontrolled with renal manifestation: (2) Hypertension: Qualified Codes: I10 - Essential (primary) hypertension Farhana Medrano DO Mar 20, 2017 09:49
[2017-03-20] MEDS: DRONABINOL 5 MG CAP PO SCH ×2 (11:20→16:17)
[2017-03-20 12:00] VITALS: BP 120/68; PULSE 89; RESP 16; TEMP 96.7; O2SAT 91
[2017-03-20] MEDS: ENOXAPARIN SODIUM 30 MG/0.3 ML SYRINGE SQ SCH (15:23)
[2017-03-20 16:00] VITALS: BP 101/56; PULSE 90; RESP 16; TEMP 96.7; O2SAT 91
[2017-03-20 20:00] VITALS: BP 96/54; PULSE 84; RESP 18; TEMP 98.6
[2017-03-21] VITALS: BP 94/52; PULSE 95; RESP 18; TEMP 97.9
[2017-03-21] MEDS: INSULIN ASPART SUPPLEMENTAL SCALE SQ SCH ×4 (07:11→19:57)
[2017-03-21 07:58] VITALS: BP 120/58; PULSE 97; RESP 18; TEMP 98.4; O2SAT 92
[2017-03-21] MEDS: NIFEdipine 60 MG SUSTAINED RELEASE TAB PO SCH (09:00)
[2017-03-21] MEDS: LACTOBACILLUS ACIDOPHILUS TAB PO SCH ×3 (09:00→18:00)
[2017-03-21] MEDS: ATORVASTATIN 80 MG TAB PO SCH (09:00)
[2017-03-21] MEDS: LOSARTAN 50 MG TAB PO SCH (09:00)
[2017-03-21] MEDS: CHOLECALCIFEROL (VIT D3) 5000 UNIT CAP PO SCH (09:00)
[2017-03-21] MEDS: CHLOROTHIAZIDE 500 MG PO SCH (09:00)
[2017-03-21] MEDS: cloNIDine HCL 0.1 MG TAB PO SCH (09:00)
[2017-03-21] MEDS: levETIRAcetam 500 MG TAB PO SCH ×2 (09:00→19:57)
[2017-03-21] MEDS: SODIUM CHLORIDE 0.9% FLUSH 10 ML FLUSH IV FLUSH SCH (09:00)
[2017-03-21] MEDS: DRONABINOL 5 MG CAP PO SCH ×2 (11:00→16:00)
[2017-03-21 12:00] VITALS: BP 144/70; PULSE 94; RESP 16; TEMP 98.6; O2SAT 100
--- NOTE | 2017-03-21 14:07 | HHI.PR ---
Subjective Remarks Follow-up visit C. difficile colitis, REGAN. No acute concerns. Resting well in bed. No diarrhea. Objective Vitals Vital Signs Date Time Temp Pulse Resp B/P (MAP) Pulse Ox O2 Delivery O2 Flow Rate FiO2 03/21/17 12:00 98.6 94 16 144/70 (94) 100 03/21/17 07:58 98.4 97 18 120/58 (78) 92 03/21/17 00:00 97.9 95 18 94/52 (66) 03/20/17 20:00 98.6 84 18 96/54 (68) 03/20/17 16:00 96.7 90 16 101/56 (71) 91 I/O 03/20/17 03/20/17 03/20/17 03/21/17 03/21/17 03/21/17 07:00 15:00 23:00 07:00 15:00 23:00 Intake Total 240 ml 500 ml Output Total 0 ml Balance 240 ml 500 ml Intake Oral 240 ml 500 ml Output Urine Total 0 ml # Voids 2 # Bowel Movements 0 Result Diagram: 03/18/17 1312 03/18/17 1312 Objective Remarks GENERAL: Alert, NAD. SKIN: Warm and dry. HEAD: Normocephalic. EYES: No scleral icterus. No injection or drainage. NECK: Supple, trachea midline. No JVD or lymphadenopathy. CARDIOVASCULAR: Regular rate and rhythm without murmurs, gallops, or rubs. RESPIRATORY: Breath sounds equal bilaterally. No accessory muscle use. GASTROINTESTINAL: Abdomen soft, non-tender, nondistended. MUSCULOSKELETAL: No cyanosis, or edema. BACK: Nontender without obvious deformity. No CVA tenderness. Procedures Left IJ central line 02/25/2017. A/P Problem List: (1) Diastolic CHF, acute ICD Code: I50.31 - Acute diastolic (congestive) heart failure (2) Hypoalbuminemia ICD Code: E88.09 - Other disorders of plasma-protein metabolism, not elsewhere classified (3) DM (diabetes mellitus) type I uncontrolled with renal manifestation ICD Code: E10.29 - Uncontrolled type 1 diabetes mellitus with renal manifestations; E10.65 - Type 1 diabetes mellitus with hyperglycemia Status: Chronic (4) Hypertension ICD Code: I10 - Hypertension Status: Acute (5) Hypernatremia ICD Code: E87.0 - Hyperosmolality and hypernatremia Assessment and Plan Ms. Lang is a 46 year old female with a history of diabetes mellitus, Stage III CKD who presented to the ED on 02/14/2017 due to bilateral lower ext swelling. She was also found to have C. Diff colitis. Patient was started on PO Vancomycin 125mg QID x 14 days. Nephrology was consulted due to suspected nephrotic syndrome. While patient had proteinuria, it did not rise to the level of nephrotic syndrome. ID recommended colonoscopy for persistent diarrhea. GI was consulted. Patient's diarrhea improved and also she refused endoscopic procedures. - Recurrent C. Diff colitis - Patient is was on Vancomycin PO 125mg Q6hrs. - No diarrhea or loose stools. - CDIFF negative 03/11/17 - Clinically improved. Patient refused Endoscopic procedures as offered by GI. - Vancomycin discontinued. If patient has loose stools we'll start pulse treatment. - Patient reports no further diarrheal episodes. - Acute kidney injury - CKD Stage III - Proteinuria - Appreciate nephrology input. - Acute kidney injury appears to be resolved. Peak Creatinine 3.18. - Continue Losartan 50mg Qday. - Follow renal indices. 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 - Blood glucose well controlled - around 130-140s. - Hypernatremia - Patient is encouraged to drink more water. - Improved - Hypertension - Currently on Clonidine 0.1mg Q12hrs, Losartan 50mg Qday. - Continue Nifedipine 60mg Qday.Hold Clonidine in an effort to discontinue it altogether. Full code. Lovenox. Patient has been discharged as of 03/19/2017. However, finding a SNF bed with medicaid has proved to be difficult. continues to work to place this patient. Problem Qualifiers (1) DM (diabetes mellitus) type I uncontrolled with renal manifestation: (2) Hypertension: Qualified Codes: I10 - Essential (primary) hypertension Farhana Medrano DO Mar 21, 2017 14:07
[2017-03-21] MEDS: ENOXAPARIN SODIUM 30 MG/0.3 ML SYRINGE SQ SCH (15:00)
[2017-03-21 16:00] VITALS: BP 159/80; PULSE 102; RESP 16; TEMP 98.2; O2SAT 94
[2017-03-21 20:00] VITALS: BP 171/82; PULSE 99; RESP 20; TEMP 97.6; O2SAT 93
[2017-03-22] VITALS: BP 174/86; PULSE 99; RESP 20; TEMP 98.3; O2SAT 98
[2017-03-22] MEDS: cloNIDine HCL 0.1 MG TAB PO PRN (01:26)
[2017-03-22] MEDS: ACETAMINOPHEN/HYDROcodone 325 MG/5 MG TAB PO PRN (01:26)
[2017-03-22] MEDS: SODIUM CHLORIDE 0.9% FLUSH 10 ML FLUSH IV FLUSH SCH ×3 (01:30→21:35)
[2017-03-22 04:00] VITALS: BP 138/81; PULSE 86; RESP 18; TEMP 97.1; O2SAT 96
[2017-03-22 07:59] VITALS: BP 150/94; PULSE 90; RESP 18; TEMP 97.8; O2SAT 99
[2017-03-22] MEDS: INSULIN ASPART SUPPLEMENTAL SCALE SQ SCH ×4 (08:00→21:00)
--- NOTE | 2017-03-22 09:09 | HHI.PR ---
Subjective Remarks Follow-up visit C. difficile colitis, REGAN. Patient complains of diarrhea today. No fever, chills. Objective Vitals Vital Signs Date Time Temp Pulse Resp B/P (MAP) Pulse Ox O2 Delivery O2 Flow Rate FiO2 03/22/17 07:59 97.8 90 18 150/94 (112) 99 03/22/17 04:00 97.1 86 18 138/81 (100) 96 03/22/17 00:00 98.3 99 20 174/86 (115) 98 03/21/17 20:00 97.6 99 20 171/82 (111) 93 03/21/17 16:00 98.2 102 16 159/80 (106) 94 03/21/17 12:00 98.6 94 16 144/70 (94) 100 I/O 03/21/17 03/21/17 03/21/17 03/22/17 03/22/17 03/22/17 07:00 15:00 23:00 07:00 15:00 23:00 Intake Total 360 ml 120 ml Balance 360 ml 120 ml Intake Oral 360 ml 120 ml # Voids 1 6 # Bowel Movements 0 6 Result Diagram: 03/18/17 1312 03/18/17 1312 Objective Remarks GENERAL: Alert, NAD. SKIN: Warm and dry. HEAD: Normocephalic. EYES: No scleral icterus. No injection or drainage. NECK: Supple, trachea midline. No JVD or lymphadenopathy. CARDIOVASCULAR: Regular rate and rhythm without murmurs, gallops, or rubs. RESPIRATORY: Breath sounds equal bilaterally. No accessory muscle use. GASTROINTESTINAL: Abdomen soft, non-tender, nondistended. MUSCULOSKELETAL: No cyanosis, or edema. BACK: Nontender without obvious deformity. No CVA tenderness. Procedures Left IJ central line 02/25/2017. A/P Problem List: (1) Diastolic CHF, acute ICD Code: I50.31 - Acute diastolic (congestive) heart failure (2) Hypoalbuminemia ICD Code: E88.09 - Other disorders of plasma-protein metabolism, not elsewhere classified (3) DM (diabetes mellitus) type I uncontrolled with renal manifestation ICD Code: E10.29 - Uncontrolled type 1 diabetes mellitus with renal manifestations; E10.65 - Type 1 diabetes mellitus with hyperglycemia Status: Chronic (4) Hypertension ICD Code: I10 - Hypertension Status: Acute (5) Hypernatremia ICD Code: E87.0 - Hyperosmolality and hypernatremia Assessment and Plan Ms. Lang is a 46 year old female with a history of diabetes mellitus, Stage III CKD who presented to the ED on 02/14/2017 due to bilateral lower ext swelling. She was also found to have C. Diff colitis. Patient was started on PO Vancomycin 125mg QID x 14 days. Nephrology was consulted due to suspected nephrotic syndrome. While patient had proteinuria, it did not rise to the level of nephrotic syndrome. ID recommended colonoscopy for persistent diarrhea. GI was consulted. Patient's diarrhea improved and also she refused endoscopic procedures. - Recurrent C. Diff colitis - Patient is was on Vancomycin PO 125mg Q6hrs. - No diarrhea or loose stools. - CDIFF negative 03/11/17 - Clinically improved. Patient refused Endoscopic procedures as offered by GI. - Vancomycin discontinued. If patient has loose stools we'll start pulse treatment. - Patient reports diarrheal episodes again today. Will get C. Diff PCR. If positive, we will consider pulse Vancomycin therapy: - Vancomycin 125mg PO QID X 10-14 days THEN 125mg PO BID X 7 days THEN 125mg Qday X 6 weeks. - Acute kidney injury - CKD Stage III - Proteinuria - Appreciate nephrology input. - Acute kidney injury appears to be resolved. Peak Creatinine 3.18. - Continue Losartan 50mg Qday. - Follow renal indices. 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 - Blood glucose well controlled - around 130-140s. - Hypernatremia - Patient is encouraged to drink more water. - Improved - Hypertension - Currently on Clonidine 0.1mg Q12hrs, Losartan 50mg Qday. - Continue Nifedipine 60mg Qday.Hold Clonidine in an effort to discontinue it altogether. Full code. Lovenox. Discharge plan: If C. Diff PCR is negative, patient can be discharged. Discharge orders are in place. Problem Qualifiers (1) DM (diabetes mellitus) type I uncontrolled with renal manifestation: (2) Hypertension: Qualified Codes: I10 - Essential (primary) hypertension Farhana Medrano DO Mar 22, 2017 09:09
[2017-03-22] MEDS: CHOLECALCIFEROL (VIT D3) 5000 UNIT CAP PO SCH (09:16)
[2017-03-22] MEDS: levETIRAcetam 500 MG TAB PO SCH ×3 (09:16→21:35)
[2017-03-22] MEDS: CHLOROTHIAZIDE 500 MG PO SCH (09:16)
[2017-03-22] MEDS: LOSARTAN 50 MG TAB PO SCH (09:16)
[2017-03-22] MEDS: ATORVASTATIN 80 MG TAB PO SCH (09:16)
[2017-03-22] MEDS: LACTOBACILLUS ACIDOPHILUS TAB PO SCH ×3 (09:16→16:55)
[2017-03-22] MEDS: NIFEdipine 60 MG SUSTAINED RELEASE TAB PO SCH (09:16)
[2017-03-22] MEDS: DRONABINOL 5 MG CAP PO SCH ×2 (11:00→16:55)
[2017-03-22] MEDS: ENOXAPARIN SODIUM 30 MG/0.3 ML SYRINGE SQ SCH (16:57)
[2017-03-22 17:33] VITALS: BP 127/74; PULSE 106; RESP 18; TEMP 97.4; O2SAT 92
[2017-03-22 20:00] VITALS: BP 107/59; PULSE 91; RESP 18; TEMP 98.1; O2SAT 95
[2017-03-23] VITALS: BP 108/57; PULSE 90; RESP 18; TEMP 96.8; O2SAT 93
[2017-03-23] MEDS: INSULIN ASPART SUPPLEMENTAL SCALE SQ SCH ×4 (08:00→21:00)
--- NOTE | 2017-03-23 08:25 | HHI.PR ---
Subjective Remarks This is a 46 year old female with multiple medical problems and multiple recent admissions including DM, lupus, hx c diff, CHF who presented with leg swelling. recurrent Diarrhea, She does have hx c diff but recent tests are neg for c diff. She has had loose stool approximately three times a day for the last year or longer. She has had colonoscopy and EGD for abd pain but does not know when and cannot give me further details. Refused further Endoscopic tests GI specialist signed off the case. seen in her bedroom no complaint. Seen in her bedroom asked for Psychiatry specialist consult as recommended by merchandise team manager. no complaint. Objective Vital Signs Date Time Temp Pulse Resp B/P (MAP) Pulse Ox O2 Delivery O2 Flow Rate FiO2 03/23/17 00:00 96.8 90 18 108/57 (74) 93 03/22/17 20:00 98.1 91 18 107/59 (75) 95 03/22/17 17:33 97.4 106 18 127/74 (91) 92 I/O 03/22/17 03/22/17 03/22/17 03/23/17 03/23/17 03/23/17 07:00 15:00 23:00 07:00 15:00 23:00 Intake Total 120 ml 240 ml 120 ml Output Total 250 ml Balance 120 ml 240 ml -130 ml Intake Oral 120 ml 240 ml 120 ml Output Urine Total 250 ml # Voids 6 1 # Bowel Movements 6 1 0 Imaging Last Impressions Chest X-Ray 02/25/17 0000 Signed Impressions: Service Date/Time: Saturday, February 25, 2017 22:51 - CONCLUSION: 1. Left IJ central venous catheter projects over the central venous system. No pneumothorax. 2. Vascular congestion appears to have improved but there are still patchy areas of infiltrate predominantly in the right upper lung and left perihilar distribution. Genaro Key MD Lower Extremity Ultrasound 02/24/17 0000 Signed Impressions: Service Date/Time: February 11:34 - CONCLUSION: No evidence of deep venous thrombosis within the lower extremities. Villa Calderon MD Procedures None Other Results Laboratory Tests Test 02/14/17 17:00 02/22/17 14:27 02/23/17 03:00 02/25/17 13:00 B-Type Natriuretic Peptide 175 PG/ML Blood Smear Pathologist Review Erythrocyte Sedimentation Rate 65 mm/hr Reticulocyte Count 3.4 % Absolute Reticulocyte Count 94.3 MIL/L Direct Bilirubin 0.1 MG/DL Indirect Bilirubin 0.2 MG/DL Urine Color YELLOW Urine Turbidity HAZY Urine pH 5.5 Urine Specific [place] 1.010 Urine Protein 30 mg/dL Urine Glucose (UA) NEG mg/dL Urine Ketones NEG mg/dL Urine Occult Blood NEG Urine Nitrite NEG Urine Bilirubin NEG Urine Urobilinogen LESS THAN 2.0 MG/DL Urine Leukocyte Esterase LARGE Urine RBC 4 /hpf Urine WBC 15 /hpf Urine Squamous Epithelial Cells 2 /hpf Urine Bacteria OCC /hpf Urine Yeast (Budding) OCC Microscopic Urinalysis Comment CULTURE INDICATED Blood Gas Puncture Site RT RADIAL Blood Gas Patient Temperature 98.6 Blood Gas HCO3 20 mmol/L Blood Gas Base Excess -5.1 mmol/L Blood Gas Oxygen Saturation 97 % Arterial Blood pH 7.30 Arterial Blood Partial Pressure CO2 42 mmHg Arterial Blood Partial Pressure O2 298 mmHg Arterial Blood Oxygen Content 14.8 Vol % Arterial Blood Carboxyhemoglobin 1.6 % Arterial Blood Methemoglobin 1.3 % Blood Gas Hemoglobin 10.3 G/DL Oxygen Delivery Device Non-Rebreathing Mask Blood Gas Liter Flow 15 L/M Blood Gas Inspired Oxygen 100 % Test 02/25/17 23:10 02/26/17 17:00 03/01/17 05:35 03/02/17 06:48 Prothrombin Time 14.0 SEC Prothromb Time International Ratio 1.3 RATIO Activated Partial Thromboplast Time 35.2 SEC Fibrinogen 426 mg/dL Lactic Acid Level 1.5 mmol/L Ammonia 25 MCMOL/L Amylase Level 19 U/L Lipase 29 U/L Thyroid Stimulating Hormone 3rd Gen 1.490 uIU/ML Urine Total Volume 24 Hours 1350 ML Urine Total Protein 24 Hour 1638 MG/24HR Metamyelocytes 1 % Toxic Vacuolation Myelocytes 1 % Test 03/05/17 07:04 03/07/17 05:29 03/10/17 05:27 03/11/17 10:20 Differential Total Cells Counted 100 Neutrophils % (Manual) 80 % Band Neutrophils % 5 % Lymphocytes % 10 % Monocytes % 4 % Eosinophils % 1 % Neutrophils # (Manual) 10.9 TH/MM3 Blood Urea Nitrogen 27 MG/DL 14 MG/DL Creatinine 1.26 MG/DL 1.32 MG/DL Random Glucose 117 MG/DL 160 MG/DL Total Protein 5.5 GM/DL Albumin 2.2 GM/DL 2.0 GM/DL Calcium Level 7.7 MG/DL 8.1 MG/DL Phosphorus Level 2.5 MG/DL 2.4 MG/DL Magnesium Level 1.9 MG/DL Alkaline Phosphatase 321 U/L Aspartate Amino Transf (AST/SGOT) 49 U/L Alanine Aminotransferase (ALT/SGPT) 76 U/L Total Bilirubin 0.6 MG/DL Sodium Level 145 MEQ/L 148 MEQ/L Potassium Level 4.2 MEQ/L 3.9 MEQ/L Chloride Level 114 MEQ/L 115 MEQ/L Carbon Dioxide Level 25.1 MEQ/L 24.5 MEQ/L Platelet Estimate LOW Platelet Morphology Comment ENLARGED Ovalocytes 1+ Acanthocytes OCC Stool C. difficile Toxin (PCR) NEGATIVE Stl C. difficile Toxin Epiderm 027 PRESUMPTIVE NEGATIVE Test 03/18/17 13:12 White Blood Count 7.4 TH/MM3 Red Blood Count 3.22 MIL/MM3 Hemoglobin 9.6 GM/DL Hematocrit 29.4 % Mean Corpuscular Volume 91.3 FL Mean Corpuscular Hemoglobin 29.7 PG Mean Corpuscular Hemoglobin Concent 32.5 % Red Cell Distribution Width 15.5 % Platelet Count 165 TH/MM3 Mean Platelet Volume 10.2 FL Neutrophils (%) (Auto) 73.9 % Lymphocytes (%) (Auto) 15.7 % Monocytes (%) (Auto) 7.4 % Eosinophils (%) (Auto) 2.1 % Basophils (%) (Auto) 0.9 % Neutrophils # (Auto) 5.5 TH/MM3 Lymphocytes # (Auto) 1.2 TH/MM3 Monocytes # (Auto) 0.6 TH/MM3 Eosinophils # (Auto) 0.2 TH/MM3 Basophils # (Auto) 0.1 TH/MM3 CBC Comment DIFF FINAL Differential Comment Blood Urea Nitrogen 10 MG/DL Creatinine 1.84 MG/DL Random Glucose 153 MG/DL Calcium Level 7.7 MG/DL Sodium Level 143 MEQ/L Potassium Level 3.6 MEQ/L Chloride Level 109 MEQ/L Carbon Dioxide Level 24.0 MEQ/L Anion Gap 10 MEQ/L Estimat Glomerular Filtration Rate 35 ML/MIN Objective Remarks GENERAL: Awake alert and oriented x 3, no acute distress. SKIN: Warm and dry. HEAD: Atraumatic. Normocephalic. EYES: Pupils equal and round. No scleral icterus. No injection or drainage. ENT: No nasal bleeding or discharge. Mucous membranes pink and moist. NECK: Trachea midline. No JVD. CARDIOVASCULAR: Regular rate and rhythm. RESPIRATORY: No accessory muscle use. Clear to auscultation. Breath sounds equal bilaterally. GASTROINTESTINAL: Abdomen soft, non-tender, nondistended. Hepatic and splenic margins not palpable. MUSCULOSKELETAL: Extremities without clubbing, cyanosis, Edema 2+ NEUROLOGICAL: Awake and alert. No obvious cranial nerve deficits. PSYCHIATRIC: Appropriate mood and affect. Medications and IVs Current Medications Medications (Trade) Dose Ordered Sig/Marin Route Start Time Stop Time Status Last Admin (NS Flush) 2 ml UNSCH PRN IV FLUSH 02/14/17 19:45 02/22/17 20:44 (NS Flush) 2 ml BID IV FLUSH 02/14/17 21:00 03/22/17 21:35 (Tylenol) 650 mg Q4H PRN PO 02/14/17 19:45 (Zofran Inj) 4 mg Q6H PRN IVP 02/14/17 19:45 (Lipitor) 80 mg DAILY PO 02/15/17 09:00 03/22/17 09:16 (Keppra) 500 mg BID PO 02/15/17 09:00 03/22/17 09:16 (D50w (Vial) Inj) 50 ml UNSCH PRN IV 02/14/17 21:45 03/04/17 08:09 (Glucagon Inj) 1 mg UNSCH PRN OTHER 02/14/17 21:45 (Vitamin D3) 5,000 units DAILY PO 02/22/17 09:00 03/22/17 09:16 (Marinol) 5 mg BID@11,16 PO 02/22/17 11:00 03/22/17 16:55 (Mag-Al Plus Susp Liq) 30 ml Q6H PRN PO 02/23/17 08:30 02/23/17 08:32 (Lactinex) 1 tab TID PO 02/23/17 13:00 03/22/17 16:55 (Catapres) 0.1 mg Q6H PRN PO 03/03/17 09:00 03/22/17 01:26 (Lovenox Inj) 30 mg Q24H SQ 03/04/17 15:00 03/22/17 16:57 (Cozaar) 50 mg DAILY PO 03/06/17 09:00 03/22/17 09:16 (Glade 5-325 Mg) 1 tab Q6H PRN PO 03/08/17 11:45 03/22/17 01:26 (Diuril) 500 mg DAILY PO 03/16/17 10:00 03/22/17 09:16 (NovoLOG SUPPLEMENTAL SCALE) 1 ACHS SLIDING SCALE SQ 03/17/17 21:00 03/22/17 21:00 (Procardia Xl) 60 mg DAILY PO 03/20/17 09:00 03/22/17 09:16 A/P Assessment and Plan 46-year-old female admitted secondary to recurrence of C. difficile and bilateral lower extremity edema. Ms. Lang is a 46 year old female with a history of diabetes mellitus, Stage III CKD who presented to the ED on 02/14/2017 due to bilateral lower ext swelling. She was also found to have C. Diff colitis. Patient was started on PO Vancomycin 125mg QID x 14 days. Nephrology was consulted due to suspected nephrotic syndrome. While patient had proteinuria, it did not rise to the level of nephrotic syndrome. ID recommended colonoscopy for persistent diarrhea. GI was consulted. Patient's diarrhea improved and also she refused endoscopic procedures. - Recurrent C. Diff colitis - Patient is was on Vancomycin PO 125mg Q6hrs. - No diarrhea or loose stools. - CDIFF negative 03/11/17 - Acute kidney injury - CKD Stage III - Proteinuria - Appreciate nephrology input. - Acute kidney injury appears to be resolved. Peak Creatinine 3.18. - Continue Losartan 50mg Qday. - Follow renal indices. SU[employer]OR [employer] 1.31-->1.8 - Diabetes mellitus - Continue sliding scale insulin. - Blood glucose well controlled - around 130-140s. - Hypernatremia - Patient is encouraged to drink more water. - Improved - Hypertension - Currently on Clonidine 0.1mg Q12hrs, Losartan 50mg Qday. - Continue Nifedipine 60mg Qday.Hold Clonidine in an effort to discontinue it altogether. Full code. Lovenox. Discharge plan: If C. Diff PCR is negative, patient can be discharged. Discharge orders are in place. Discharge Planning NO ACCEPTING SNF YET Isacc Salinas MD Mar 23, 2017 08:25
[2017-03-23] MEDS: LOSARTAN 50 MG TAB PO SCH (09:28)
[2017-03-23] MEDS: CHLOROTHIAZIDE 500 MG PO SCH (09:28)
[2017-03-23] MEDS: NIFEdipine 60 MG SUSTAINED RELEASE TAB PO SCH (09:28)
[2017-03-23] MEDS: ATORVASTATIN 80 MG TAB PO SCH (09:28)
[2017-03-23] MEDS: levETIRAcetam 500 MG TAB PO SCH ×2 (09:28→21:45)
[2017-03-23] MEDS: SODIUM CHLORIDE 0.9% FLUSH 10 ML FLUSH IV FLUSH SCH ×2 (09:29→21:46)
[2017-03-23] MEDS: CHOLECALCIFEROL (VIT D3) 5000 UNIT CAP PO SCH (09:29)
[2017-03-23] MEDS: LACTOBACILLUS ACIDOPHILUS TAB PO SCH ×3 (09:29→17:53)
[2017-03-23 09:30] VITALS: BP 169/95; PULSE 115; RESP 16; TEMP 97.3; O2SAT 94
[2017-03-23 12:00] VITALS: BP 150/86; PULSE 106; RESP 19; TEMP 97.2; O2SAT 95
[2017-03-23] MEDS: DRONABINOL 5 MG CAP PO SCH ×2 (12:35→17:53)
[2017-03-23 16:00] VITALS: BP 155/81; PULSE 110; RESP 17; TEMP 97.8; O2SAT 97
[2017-03-23] MEDS: ENOXAPARIN SODIUM 30 MG/0.3 ML SYRINGE SQ SCH (17:53)
[2017-03-23 20:00] VITALS: BP 103/65; PULSE 97; RESP 18; TEMP 98.9; O2SAT 93
[2017-03-24] VITALS: BP 112/62; PULSE 94; RESP 18; TEMP 96.7; O2SAT 92
[2017-03-24 08:00] VITALS: BP 142/79; PULSE 107; RESP 17; TEMP 97.8; O2SAT 92
[2017-03-24] MEDS: INSULIN ASPART SUPPLEMENTAL SCALE SQ SCH ×4 (08:00→21:00)
--- NOTE | 2017-03-24 08:56 | HHI.PR ---
Subjective Remarks This is a 46 year old female with multiple medical problems and multiple recent admissions including DM, lupus, hx c diff, CHF who presented with leg swelling. recurrent Diarrhea, She does have hx c diff but recent tests are neg for c diff. She has had loose stool approximately three times a day for the last year or longer. She has had colonoscopy and EGD for abd pain but does not know when and cannot give me further details. Refused further Endoscopic tests GI specialist signed off the case. Stable no complaint discussed with Nurse and with Medicaid Analyst continue working on the case, she may be discharge from Medicine standpoint at anytime, today awaiting for Psychiatry specialist consult , no further episodes of diarrhea. no nausea or vomit. Objective Vital Signs Date Time Temp Pulse Resp B/P (MAP) Pulse Ox O2 Delivery O2 Flow Rate FiO2 03/24/17 08:00 97.8 107 17 142/79 (100) 92 03/24/17 00:00 96.7 94 18 112/62 (79) 92 03/23/17 20:00 98.9 97 18 103/65 (78) 93 03/23/17 16:00 97.8 110 17 155/81 (105) 97 03/23/17 12:00 97.2 106 19 150/86 (107) 95 03/23/17 09:30 97.3 115 16 169/95 (119) 94 I/O 03/23/17 03/23/17 03/23/17 03/24/17 03/24/17 03/24/17 07:00 15:00 23:00 07:00 15:00 23:00 Intake Total 120 ml 120 ml 760 ml Output Total 250 ml 900 ml Balance -130 ml 120 ml -140 ml Intake Oral 120 ml 120 ml 760 ml Output Urine Total 250 ml 900 ml # Voids 1 # Bowel Movements 0 0 Imaging Last Impressions Chest X-Ray 02/25/17 0000 Signed Impressions: Service Date/Time: Saturday, February 25, 2017 22:51 - CONCLUSION: 1. Left IJ central venous catheter projects over the central venous system. No pneumothorax. 2. Vascular congestion appears to have improved but there are still patchy areas of infiltrate predominantly in the right upper lung and left perihilar distribution. Genaro Key MD Lower Extremity Ultrasound 02/24/17 0000 Signed Impressions: Service Date/Time: February 11:34 - CONCLUSION: No evidence of deep venous thrombosis within the lower extremities. Villa Calderon MD Procedures None Other Results Laboratory Tests Test 02/14/17 17:00 02/22/17 14:27 02/23/17 03:00 02/25/17 13:00 B-Type Natriuretic Peptide 175 PG/ML Blood Smear Pathologist Review Erythrocyte Sedimentation Rate 65 mm/hr Reticulocyte Count 3.4 % Absolute Reticulocyte Count 94.3 MIL/L Direct Bilirubin 0.1 MG/DL Indirect Bilirubin 0.2 MG/DL Urine Color YELLOW Urine Turbidity HAZY Urine pH 5.5 Urine Specific [place] 1.010 Urine Protein 30 mg/dL Urine Glucose (UA) NEG mg/dL Urine Ketones NEG mg/dL Urine Occult Blood NEG Urine Nitrite NEG Urine Bilirubin NEG Urine Urobilinogen LESS THAN 2.0 MG/DL Urine Leukocyte Esterase LARGE Urine RBC 4 /hpf Urine WBC 15 /hpf Urine Squamous Epithelial Cells 2 /hpf Urine Bacteria OCC /hpf Urine Yeast (Budding) OCC Microscopic Urinalysis Comment CULTURE INDICATED Blood Gas Puncture Site RT RADIAL Blood Gas Patient Temperature 98.6 Blood Gas HCO3 20 mmol/L Blood Gas Base Excess -5.1 mmol/L Blood Gas Oxygen Saturation 97 % Arterial Blood pH 7.30 Arterial Blood Partial Pressure CO2 42 mmHg Arterial Blood Partial Pressure O2 298 mmHg Arterial Blood Oxygen Content 14.8 Vol % Arterial Blood Carboxyhemoglobin 1.6 % Arterial Blood Methemoglobin 1.3 % Blood Gas Hemoglobin 10.3 G/DL Oxygen Delivery Device Non-Rebreathing Mask Blood Gas Liter Flow 15 L/M Blood Gas Inspired Oxygen 100 % Test 02/25/17 23:10 02/26/17 17:00 03/01/17 05:35 03/02/17 06:48 Prothrombin Time 14.0 SEC Prothromb Time International Ratio 1.3 RATIO Activated Partial Thromboplast Time 35.2 SEC Fibrinogen 426 mg/dL Lactic Acid Level 1.5 mmol/L Ammonia 25 MCMOL/L Amylase Level 19 U/L Lipase 29 U/L Thyroid Stimulating Hormone 3rd Gen 1.490 uIU/ML Urine Total Volume 24 Hours 1350 ML Urine Total Protein 24 Hour 1638 MG/24HR Metamyelocytes 1 % Toxic Vacuolation Myelocytes 1 % Test 03/05/17 07:04 03/07/17 05:29 03/10/17 05:27 03/11/17 10:20 Differential Total Cells Counted 100 Neutrophils % (Manual) 80 % Band Neutrophils % 5 % Lymphocytes % 10 % Monocytes % 4 % Eosinophils % 1 % Neutrophils # (Manual) 10.9 TH/MM3 Blood Urea Nitrogen 27 MG/DL 14 MG/DL Creatinine 1.26 MG/DL 1.32 MG/DL Random Glucose 117 MG/DL 160 MG/DL Total Protein 5.5 GM/DL Albumin 2.2 GM/DL 2.0 GM/DL Calcium Level 7.7 MG/DL 8.1 MG/DL Phosphorus Level 2.5 MG/DL 2.4 MG/DL Magnesium Level 1.9 MG/DL Alkaline Phosphatase 321 U/L Aspartate Amino Transf (AST/SGOT) 49 U/L Alanine Aminotransferase (ALT/SGPT) 76 U/L Total Bilirubin 0.6 MG/DL Sodium Level 145 MEQ/L 148 MEQ/L Potassium Level 4.2 MEQ/L 3.9 MEQ/L Chloride Level 114 MEQ/L 115 MEQ/L Carbon Dioxide Level 25.1 MEQ/L 24.5 MEQ/L Platelet Estimate LOW Platelet Morphology Comment ENLARGED Ovalocytes 1+ Acanthocytes OCC Stool C. difficile Toxin (PCR) NEGATIVE Stl C. difficile Toxin Epiderm 027 PRESUMPTIVE NEGATIVE Test 03/18/17 13:12 White Blood Count 7.4 TH/MM3 Red Blood Count 3.22 MIL/MM3 Hemoglobin 9.6 GM/DL Hematocrit 29.4 % Mean Corpuscular Volume 91.3 FL Mean Corpuscular Hemoglobin 29.7 PG Mean Corpuscular Hemoglobin Concent 32.5 % Red Cell Distribution Width 15.5 % Platelet Count 165 TH/MM3 Mean Platelet Volume 10.2 FL Neutrophils (%) (Auto) 73.9 % Lymphocytes (%) (Auto) 15.7 % Monocytes (%) (Auto) 7.4 % Eosinophils (%) (Auto) 2.1 % Basophils (%) (Auto) 0.9 % Neutrophils # (Auto) 5.5 TH/MM3 Lymphocytes # (Auto) 1.2 TH/MM3 Monocytes # (Auto) 0.6 TH/MM3 Eosinophils # (Auto) 0.2 TH/MM3 Basophils # (Auto) 0.1 TH/MM3 CBC Comment DIFF FINAL Differential Comment Blood Urea Nitrogen 10 MG/DL Creatinine 1.84 MG/DL Random Glucose 153 MG/DL Calcium Level 7.7 MG/DL Sodium Level 143 MEQ/L Potassium Level 3.6 MEQ/L Chloride Level 109 MEQ/L Carbon Dioxide Level 24.0 MEQ/L Anion Gap 10 MEQ/L Estimat Glomerular Filtration Rate 35 ML/MIN Objective Remarks GENERAL: Awake alert and oriented x 3, no acute distress. SKIN: Warm and dry. HEAD: Atraumatic. Normocephalic. EYES: Pupils equal and round. No scleral icterus. No injection or drainage. ENT: No nasal bleeding or discharge. Mucous membranes pink and moist. NECK: Trachea midline. No JVD. CARDIOVASCULAR: Regular rate and rhythm. RESPIRATORY: No accessory muscle use. Clear to auscultation. Breath sounds equal bilaterally. GASTROINTESTINAL: Abdomen soft, non-tender, nondistended. Hepatic and splenic margins not palpable. MUSCULOSKELETAL: Extremities without clubbing, cyanosis, Edema 2+ NEUROLOGICAL: Awake and alert. No obvious cranial nerve deficits. PSYCHIATRIC: Appropriate mood and affect. Medications and IVs Current Medications Medications (Trade) Dose Ordered Sig/Marin Route Start Time Stop Time Status Last Admin (NS Flush) 2 ml UNSCH PRN IV FLUSH 02/14/17 19:45 02/22/17 20:44 (NS Flush) 2 ml BID IV FLUSH 02/14/17 21:00 03/23/17 21:46 (Tylenol) 650 mg Q4H PRN PO 02/14/17 19:45 (Zofran Inj) 4 mg Q6H PRN IVP 02/14/17 19:45 (Lipitor) 80 mg DAILY PO 02/15/17 09:00 03/23/17 09:28 (Keppra) 500 mg BID PO 02/15/17 09:00 03/23/17 21:45 (D50w (Vial) Inj) 50 ml UNSCH PRN IV 02/14/17 21:45 03/04/17 08:09 (Glucagon Inj) 1 mg UNSCH PRN OTHER 02/14/17 21:45 (Vitamin D3) 5,000 units DAILY PO 02/22/17 09:00 03/23/17 09:29 (Marinol) 5 mg BID@11,16 PO 02/22/17 11:00 03/23/17 17:53 (Mag-Al Plus Susp Liq) 30 ml Q6H PRN PO 02/23/17 08:30 02/23/17 08:32 (Lactinex) 1 tab TID PO 02/23/17 13:00 03/23/17 17:53 (Catapres) 0.1 mg Q6H PRN PO 03/03/17 09:00 03/22/17 01:26 (Lovenox Inj) 30 mg Q24H SQ 03/04/17 15:00 03/23/17 17:53 (Cozaar) 50 mg DAILY PO 03/06/17 09:00 03/23/17 09:28 (Rumson 5-325 Mg) 1 tab Q6H PRN PO 03/08/17 11:45 03/22/17 01:26 (Diuril) 500 mg DAILY PO 03/16/17 10:00 03/23/17 09:28 (NovoLOG SUPPLEMENTAL SCALE) 1 ACHS SLIDING SCALE SQ 03/17/17 21:00 03/23/17 18:00 (Procardia Xl) 60 mg DAILY PO 03/20/17 09:00 03/23/17 09:28 A/P Assessment and Plan 46-year-old female admitted secondary to recurrence of C. difficile and bilateral lower extremity edema. Ms. Lang is a 46 year old female with a history of diabetes mellitus, Stage III CKD who presented to the ED on 02/14/2017 due to bilateral lower ext swelling. She was also found to have C. Diff colitis. Patient was started on PO Vancomycin 125mg QID x 14 days. Nephrology was consulted due to suspected nephrotic syndrome. While patient had proteinuria, it did not rise to the level of nephrotic syndrome. ID recommended colonoscopy for persistent diarrhea. GI was consulted. Patient's diarrhea improved and also she refused endoscopic procedures. - Recurrent C. Diff colitis - Patient is was on Vancomycin PO 125mg Q6hrs. - No diarrhea or loose stools. - CDIFF negative 03/11/17 - CKD Stage III at baseline. - Proteinuria - Appreciate nephrology input. - Acute kidney injury appears to be resolved. Peak Creatinine 3.18. - Continue Losartan 50mg Qday. - Follow renal indices. BLIND CLEANER 1.31-->1.8 - Diabetes mellitus - Continue sliding scale insulin. - Blood glucose well controlled - around 130-140s. - Hypertension controlled. - Currently on Clonidine 0.1mg Q12hrs, Losartan 50mg Qday. - Continue Nifedipine 60mg Qday.Hold Clonidine in an effort to discontinue it altogether. Full code. Lovenox. Discharge Planning NO ACCEPTING SNF YET Isacc Salinas MD Mar 24, 2017 8:56 am
[2017-03-24] MEDS: LACTOBACILLUS ACIDOPHILUS TAB PO SCH ×3 (09:32→18:01)
[2017-03-24] MEDS: LOSARTAN 50 MG TAB PO SCH (09:32)
[2017-03-24] MEDS: NIFEdipine 60 MG SUSTAINED RELEASE TAB PO SCH (09:32)
[2017-03-24] MEDS: CHOLECALCIFEROL (VIT D3) 5000 UNIT CAP PO SCH (09:33)
[2017-03-24] MEDS: ATORVASTATIN 80 MG TAB PO SCH (09:33)
[2017-03-24] MEDS: levETIRAcetam 500 MG TAB PO SCH ×2 (09:33→22:46)
[2017-03-24] MEDS: CHLOROTHIAZIDE 500 MG PO SCH (09:33)
[2017-03-24] MEDS: SODIUM CHLORIDE 0.9% FLUSH 10 ML FLUSH IV FLUSH SCH ×2 (09:37→22:48)
[2017-03-24 12:00] VITALS: BP 153/83; PULSE 109; RESP 17; TEMP 97.1; O2SAT 99
--- NOTE | 2017-03-24 12:14 | PD.PSY.CON ---
Provisional Diagnosis Admission Date Feb 14, 2017 at 18:39 [place] I. Major depressive disorder, recurrent, moderate [place] II. Deferred History of Present Illness Service Psychiatry Consult Requested By Reason for Consult Symptoms of depression Primary Care Physician Andrea Cardoso D.O. HPI The patient is a 46-year-old woman, domiciled with her 15-year- old son, , unemployed, without no previous psychiatric history, no previous psychiatric hospitalizations, no previous suicide attempts, she is on Prozac 20 mg, with a past medical history significant for diabetes mellitus ( poorly controlled, prior multiple admission for DKA), hypertension, asthma, CKD stage III, strokes 2013 (with residual deficit right upper extremity), seizure, and lupus, multiple medical hospitalizations, who presented with leg swelling. recurrent Diarrhea, She does have hx c diff but recent tests are neg for c diff. She has had loose stool approximately three times a day for the last year or longer. She has had colonoscopy and EGD for abd pain but does not know when and cannot give me further details. Refused further Endoscopic tests GI specialist signed off the case. Stable no complaint discussed with Nurse and with Asphalt Surface Heater Operator continue working on the case, she may be discharge from Medicine standpoint at anytime, today awaiting for Psychiatry specialist consult , no further episodes of diarrhea. no nausea or vomit. Patient seen for psychiatric evaluation, she is calm, cooperative, pleasant. She immediately recognized me from previous encounters. She reports feeling normal, denies distress, denies anxiety, denies pain, she denies depressive symptoms, she denies anhedonia, denies hopelessness, denies helplessness, denies suicidal and homicidal ideation, denies visual and auditory hallucinations. Patient reports good sleep, good appetite, she says that she is want to go home. She says that she is tired to be in the hospital and she wanted to be home with her kid. Patient is oriented 3, no delusions, no davide, no paranoia present. Patient clarifies that today is her birthday "I would love to be out of this hospital". This fact was confirmed by me. Review of Systems Except as stated in HPI: all other systems reviewed are Neg Past Family Social History Coded Allergies: Sulfa (Sulfonamide Antibiotics) (Verified Allergy, Severe, 01/25/17) RASH aspirin (Verified Allergy, Severe, 01/25/17) RASH penicillin G (Verified Allergy, Severe, 01/25/17) banana (Verified Allergy, Intermediate, Hives, 01/25/17) adhesive (Verified Allergy, Unknown, 01/25/17) nitrofurantoin (Verified Allergy, Unknown, 01/25/17) insulin detemir (Verified Adverse Reaction, Severe, Sweats, funny feeling , mood swings, daze, 01/25/17) Active Scripts Insulin Glargine Inj (Lantus Inj) 1,000 Unit/10 Ml Vial, 15 UNITS SQ HS for Blood Sugar Management, #1 VIAL 0 Refills Prov:Niko Carrillo MD 02/17/17 Oxygen (O2) (Oxygen (O2)) Device, LITER DESTINI.CANULA CONTINUOUS for Prevent Hypoxemia, #3 Oxygen Concentrator Portable Gaseous 2 L/min via Nasal Canula Continuous For 99 months Prov:Celia Benitez 02/09/17 Amlodipine (Norvasc) 10 Mg Tab, 10 MG PO DAILY for Blood Pressure Management for 30 Days, #30 TAB Prov:Celia Benitez 02/09/17 Hydralazine HCl (Hydralazine HCl) 50 Mg Tablet, 50 MG PO Q8HR for HYPERTENSION for 30 Days, #90 TAB 0 Refills Prov:Celia Benitez 02/09/17 Lactobacillus Acidophilus (Acidophilus/l-Sporogenes) 35 Million Cell-25 Million Cell Tab, 1 TAB PO TID for C Diff for 30 Days, #90 TAB Prov:Celia Benitez 02/09/17 Wheelchair (Wheelchair) 1 Mis Taylor, EA .ROUTE DIRECTED for Community ambulation, #1 0 Refills Prov:Celia Benitez 02/09/17 Prednisone (Prednisone) 10 Mg Tab, 10 MG PO BID for ALVEOLITIS, #42 TAB 0 Refills Prov:Celia Benitez 02/09/17 Lactobacillus Acidophilus (Lactobacillus Acidophilus) 1 Tab Tab, 1 TAB PO TIDAC for Nutritional Supplement, #30 TAB 0 Refills Prov:Umesh Pandya MD 02/03/17 Walker/Adult/Folding (Walker/Adult/Folding) 1 Mis Mis, EA .ROUTE DIRECTED, # 1 0 Refills Prov:Umesh Pandya MD 02/03/17 Bedside Commode (Bedside Commode) 1 Mis Mis, EA EXTERNAL DIRECTED, #1 Prov:Umesh Pandya MD 02/03/17 Enoxaparin Inj (Lovenox Inj) 30 Mg/0.3 Ml Syr, 30 MG SQ Q24H for Prevent Blood Clot, #14 INJECTION Prov:Ramesh Davis MD 12/11/16 Clonidine (Catapres) 0.1 Mg Tab, 0.1 MG PO Q8HR for Blood Pressure Management, # 90 TAB Prov:Ramesh Davis MD 12/11/16 Amlodipine (Norvasc) 5 Mg Tab, 5 MG PO DAILY for Blood Pressure Management, #30 TAB Prov:Ramesh Davis MD 12/11/16 Oxycodone-Acetaminophen (Percocet) 5-325 mg Tab, 1 TAB PO Q4H Y for PAIN, #60 TAB 0 Refills Prov:Matt Umanzor Jr., MD 12/03/16 Reported Medications Bumetanide (Bumetanide) 1 Mg Tab, 1 MG PO DAILY, #30 TAB 0 Refills 02/14/17 Insulin Aspart Inj (Novolog Inj) 1,000 Unit/10 Ml Vial, SQ ACHS for Blood Sugar Management, #10 ML 0 Refills Max dose at bedtime ( ) units; sugars less than 70,(0) units; sugars 150-199,(2) units; sugars 200-249,(4) units; sugars 250-299,(7) units; sugars 300-349,(10) units; sugars greater than 349,(12)units 12/02/16 Fluoxetine (Fluoxetine) 10 Mg Tab, 10 MG PO DAILY, #30 TAB 0 Refills 11/08/16 Levetiracetam (Levetiracetam) 500 Mg Tab, 500 MG PO BID for Control Seizures, # 60 TAB 0 Refills 11/08/16 Atorvastatin (Atorvastatin) 80 Mg Tab, 80 MG PO DAILY for Cholesterol Management , #30 TAB 0 Refills 05/24/16 Current Medications Medications (Trade) Dose Ordered Sig/Marin Route Start Time Stop Time Status Last Admin (NS Flush) 2 ml UNSCH PRN IV FLUSH 02/14/17 19:45 02/22/17 20:44 (NS Flush) 2 ml BID IV FLUSH 02/14/17 21:00 03/24/17 09:37 (Tylenol) 650 mg Q4H PRN PO 02/14/17 19:45 (Zofran Inj) 4 mg Q6H PRN IVP 02/14/17 19:45 (Lipitor) 80 mg DAILY PO 02/15/17 09:00 03/24/17 09:33 (Keppra) 500 mg BID PO 02/15/17 09:00 03/24/17 09:33 (D50w (Vial) Inj) 50 ml UNSCH PRN IV 02/14/17 21:45 03/04/17 08:09 (Glucagon Inj) 1 mg UNSCH PRN OTHER 02/14/17 21:45 (Vitamin D3) 5,000 units DAILY PO 02/22/17 09:00 03/24/17 09:33 (Marinol) 5 mg BID@11,16 PO 02/22/17 11:00 03/23/17 17:53 (Mag-Al Plus Susp Liq) 30 ml Q6H PRN PO 02/23/17 08:30 02/23/17 08:32 (Lactinex) 1 tab TID PO 02/23/17 13:00 03/24/17 09:32 (Catapres) 0.1 mg Q6H PRN PO 03/03/17 09:00 03/22/17 01:26 (Lovenox Inj) 30 mg Q24H SQ 03/04/17 15:00 03/23/17 17:53 (Cozaar) 50 mg DAILY PO 03/06/17 09:00 03/24/17 09:32 ([place] 5-325 Mg) 1 tab Q6H PRN PO 03/08/17 11:45 03/22/17 01:26 (Diuril) 500 mg DAILY PO 03/16/17 10:00 03/24/17 09:33 (NovoLOG SUPPLEMENTAL SCALE) 1 ACHS SLIDING SCALE SQ 03/17/17 21:00 03/23/17 18:00 (Procardia Xl) 60 mg DAILY PO 03/20/17 09:00 03/24/17 09:32 (PROzac) 10 mg DAILY PO 03/24/17 12:00 UNV Family Psych History No family psychiatric history Social History Patient lives with her son and [place], unemployed, single Patient's Strengths (min. 2) Verbal communication Physical Exam Vital Signs Vital Signs Date Time Temp Pulse Resp B/P (MAP) Pulse Ox O2 Delivery O2 Flow Rate FiO2 03/24/17 08:00 97.8 107 17 142/79 (100) 92 Lab Results Date/Time Source Procedure Growth Status 03/11/17 10:20 Stool Stool Cryptosporidium Exam - Final NEGATIVE - NO CRYPTOSPORIDIUM ANTIGEN... Complete 03/11/17 10:20 Stool Stool Stool Pus ([facility]IS) - Final RARE WBC Complete 03/11/17 10:20 Stool Stool Giardia Antigen ([facility]) - Final NEGATIVE - NO GIARDIA ANTIGEN DETECTE... Complete 03/11/17 10:20 Stool Stool Stool Occult Blood ([facility]IS) - Final HEMOCCULT NEGATIVE Complete 02/23/17 03:00 Urine Clean Catch Urine Culture - Final 50-100,000 CFU/ML MIXED GRAM POSITIVE... Complete Mental Status Examination Appearance: Appropriate Consciousness: Alert Orientation: x4 Motor Activity: Normal gait Speech: Unremarkable Language: Adequate Fund of Knowledge: Adequate Attention and Concentration: Adequate Memory: Unremarkable Mood: Appropriate Affect: Appropriate Thought Process & Associations: Intact Thought Content: Appropriate Hallucination Type: None Delusion Type: None Suicidal Ideation: No Suicidal Plan: No Suicidal Intention: No Homicidal Ideation: No Homicidal Plan: No Homicidal Intention: No Insight: Adequate Judgment: Adequate Assessment & Plan Problem List: (1) Major depressive disorder, recurrent ICD Codes: F33.9 - Major depressive disorder, recurrent, unspecified Assessment & Plan: On psychiatric evaluation today the patient does not present any significant, concerning for acute evidence of depressive symptoms, anxiety, davide or psychosis. He suicidal and homicidal ideation, she denies visual and auditory hallucinations. Patient is logical, coherent and relevant. Oriented 3, no fluctuation of consciousness, no attention deficit, no gross cognitive impairment present. Patient has history of melancholic depression, catatonia, she tends to minimize her psychiatric symptoms, but seems to be at baseline at this moment. I will restart fluoxetine 20 mg daily for depression. Brief supportive psychotherapy provided. Patient does not meet criteria for psychiatric admission at this moment. We'll follow-up. Assessment & Plan Estimated LOS: Sarthak Briceño MD Mar 24, 2017 12:14
[2017-03-24] MEDS: FLUoxetine HCL 10 MG CAP PO SCH (13:15)
[2017-03-24] MEDS: ACETAMINOPHEN/HYDROcodone 325 MG/5 MG TAB PO PRN (14:20)
[2017-03-24] MEDS: DRONABINOL 5 MG CAP PO SCH ×2 (14:20→18:01)
[2017-03-24] MEDS: ENOXAPARIN SODIUM 30 MG/0.3 ML SYRINGE SQ SCH (14:24)
[2017-03-24 16:00] VITALS: BP_SYST 108; BP_SYST 157; BP_DIAS 53; BP_DIAS 85; PULSE 120; PULSE 67; RESP 17; TEMP 95.2; TEMP 95.9; O2SAT 100
[2017-03-24] MEDS ORDERED: ALTEPLASE RECOMBINANT 2 MG VIAL IV FLUSH ONE (17:00)
[2017-03-24 20:00] VITALS: BP 120/67; PULSE 104; RESP 18; TEMP 97.7; O2SAT 92
[2017-03-25 00:17] VITALS: BP 122/60; PULSE 94; RESP 18; TEMP 97.9; O2SAT 92
[2017-03-25 08:00] VITALS: BP 167/96; PULSE 104; RESP 17; TEMP 97; O2SAT 95
[2017-03-25] MEDS: INSULIN ASPART SUPPLEMENTAL SCALE SQ SCH ×4 (08:00→21:00)
[2017-03-25 08:30] LABS: C. DIFF EPI 027 PRESUMPTIVE NEGATIVE (NEGATIVE)
--- NOTE | 2017-03-25 08:57 | HHI.PR ---
Subjective Remarks This is a 46 year old female with multiple medical problems and multiple recent admissions including DM, lupus, hx c diff, CHF who presented with leg swelling. recurrent Diarrhea, She does have hx c diff but recent tests are neg for c diff. She has had loose stool approximately three times a day for the last year or longer. She has had colonoscopy and EGD for abd pain but does not know when and cannot give me further details. Refused further Endoscopic tests GI specialist signed off the case. Stable in her bedroom, no new issues, discussed also with Broth Mixer still no placement for her. seen by Psychiatry specialist with diagnosis of major depressive disorder recurrent, at this time no acute evidence of depressive symptoms, Anxiety disorder No attention deficit, no gross cognitive impairment present, at baseline at this time, started on Fluoxetine 20 mg daily for depression brief supportive psychotherapy given. Objective Vital Signs Date Time Temp Pulse Resp B/P (MAP) Pulse Ox O2 Delivery O2 Flow Rate FiO2 03/25/17 00:17 97.9 94 18 122/60 (80) 92 03/24/17 20:00 97.7 104 18 120/67 (84) 92 03/24/17 16:00 95.9 120 17 157/85 (109) 100 03/24/17 12:00 97.1 109 17 153/83 (106) 99 I/O 03/24/17 03/24/17 03/24/17 03/25/17 03/25/17 03/25/17 07:00 15:00 23:00 07:00 15:00 23:00 Intake Total 240 ml Output Total 400 ml Balance -160 ml Intake Oral 240 ml Output Urine Total 400 ml # Voids 1 1 # Bowel Movements 1 Imaging Last Impressions Chest X-Ray 02/25/17 0000 Signed Impressions: Service Date/Time: Saturday, February 25, 2017 22:51 - CONCLUSION: 1. Left IJ central venous catheter projects over the central venous system. No pneumothorax. 2. Vascular congestion appears to have improved but there are still patchy areas of infiltrate predominantly in the right upper lung and left perihilar distribution. Genaro Key MD Lower Extremity Ultrasound 02/24/17 0000 Signed Impressions: Service Date/Time: February 11:34 - CONCLUSION: No evidence of deep venous thrombosis within the lower extremities. Villa Calderon MD Procedures None Other Results Laboratory Tests Test 02/14/17 17:00 02/22/17 14:27 02/23/17 03:00 02/25/17 13:00 B-Type Natriuretic Peptide 175 PG/ML Blood Smear Pathologist Review Erythrocyte Sedimentation Rate 65 mm/hr Reticulocyte Count 3.4 % Absolute Reticulocyte Count 94.3 MIL/L Direct Bilirubin 0.1 MG/DL Indirect Bilirubin 0.2 MG/DL Urine Color YELLOW Urine Turbidity HAZY Urine pH 5.5 Urine Specific [place] 1.010 Urine Protein 30 mg/dL Urine Glucose (UA) NEG mg/dL Urine Ketones NEG mg/dL Urine Occult Blood NEG Urine Nitrite NEG Urine Bilirubin NEG Urine Urobilinogen LESS THAN 2.0 MG/DL Urine Leukocyte Esterase LARGE Urine RBC 4 /hpf Urine WBC 15 /hpf Urine Squamous Epithelial Cells 2 /hpf Urine Bacteria OCC /hpf Urine Yeast (Budding) OCC Microscopic Urinalysis Comment CULTURE INDICATED Blood Gas Puncture Site RT RADIAL Blood Gas Patient Temperature 98.6 Blood Gas HCO3 20 mmol/L Blood Gas Base Excess -5.1 mmol/L Blood Gas Oxygen Saturation 97 % Arterial Blood pH 7.30 Arterial Blood Partial Pressure CO2 42 mmHg Arterial Blood Partial Pressure O2 298 mmHg Arterial Blood Oxygen Content 14.8 Vol % Arterial Blood Carboxyhemoglobin 1.6 % Arterial Blood Methemoglobin 1.3 % Blood Gas Hemoglobin 10.3 G/DL Oxygen Delivery Device Non-Rebreathing Mask Blood Gas Liter Flow 15 L/M Blood Gas Inspired Oxygen 100 % Test 02/25/17 23:10 02/26/17 17:00 03/01/17 05:35 03/02/17 06:48 Prothrombin Time 14.0 SEC Prothromb Time International Ratio 1.3 RATIO Activated Partial Thromboplast Time 35.2 SEC Fibrinogen 426 mg/dL Lactic Acid Level 1.5 mmol/L Ammonia 25 MCMOL/L Amylase Level 19 U/L Lipase 29 U/L Thyroid Stimulating Hormone 3rd Gen 1.490 uIU/ML Urine Total Volume 24 Hours 1350 ML Urine Total Protein 24 Hour 1638 MG/24HR Metamyelocytes 1 % Toxic Vacuolation Myelocytes 1 % Test 03/05/17 07:04 03/07/17 05:29 03/10/17 05:27 03/18/17 13:12 Differential Total Cells Counted 100 Neutrophils % (Manual) 80 % Band Neutrophils % 5 % Lymphocytes % 10 % Monocytes % 4 % Eosinophils % 1 % Neutrophils # (Manual) 10.9 TH/MM3 Blood Urea Nitrogen 27 MG/DL 14 MG/DL 10 MG/DL Creatinine 1.26 MG/DL 1.32 MG/DL 1.84 MG/DL Random Glucose 117 MG/DL 160 MG/DL 153 MG/DL Total Protein 5.5 GM/DL Albumin 2.2 GM/DL 2.0 GM/DL Calcium Level 7.7 MG/DL 8.1 MG/DL 7.7 MG/DL Phosphorus Level 2.5 MG/DL 2.4 MG/DL Magnesium Level 1.9 MG/DL Alkaline Phosphatase 321 U/L Aspartate Amino Transf (AST/SGOT) 49 U/L Alanine Aminotransferase (ALT/SGPT) 76 U/L Total Bilirubin 0.6 MG/DL Sodium Level 145 MEQ/L 148 MEQ/L 143 MEQ/L Potassium Level 4.2 MEQ/L 3.9 MEQ/L 3.6 MEQ/L Chloride Level 114 MEQ/L 115 MEQ/L 109 MEQ/L Carbon Dioxide Level 25.1 MEQ/L 24.5 MEQ/L 24.0 MEQ/L Platelet Estimate LOW Platelet Morphology Comment ENLARGED Ovalocytes 1+ Acanthocytes OCC White Blood Count 7.4 TH/MM3 Red Blood Count 3.22 MIL/MM3 Hemoglobin 9.6 GM/DL Hematocrit 29.4 % Mean Corpuscular Volume 91.3 FL Mean Corpuscular Hemoglobin 29.7 PG Mean Corpuscular Hemoglobin Concent 32.5 % Red Cell Distribution Width 15.5 % Platelet Count 165 TH/MM3 Mean Platelet Volume 10.2 FL Neutrophils (%) (Auto) 73.9 % Lymphocytes (%) (Auto) 15.7 % Monocytes (%) (Auto) 7.4 % Eosinophils (%) (Auto) 2.1 % Basophils (%) (Auto) 0.9 % Neutrophils # (Auto) 5.5 TH/MM3 Lymphocytes # (Auto) 1.2 TH/MM3 Monocytes # (Auto) 0.6 TH/MM3 Eosinophils # (Auto) 0.2 TH/MM3 Basophils # (Auto) 0.1 TH/MM3 CBC Comment DIFF FINAL Differential Comment Anion Gap 10 MEQ/L Estimat Glomerular Filtration Rate 35 ML/MIN Test 03/25/17 07:30 Stool C. difficile Toxin (PCR) NEGATIVE Stl C. difficile Toxin Epiderm 027 PRESUMPTIVE NEGATIVE Objective Remarks GENERAL: Awake alert and oriented x 3, no acute distress. SKIN: Warm and dry. HEAD: Atraumatic. Normocephalic. EYES: Pupils equal and round. No scleral icterus. No injection or drainage. ENT: No nasal bleeding or discharge. Mucous membranes pink and moist. NECK: Trachea midline. No JVD. CARDIOVASCULAR: Regular rate and rhythm. RESPIRATORY: No accessory muscle use. Clear to auscultation. Breath sounds equal bilaterally. GASTROINTESTINAL: Abdomen soft, non-tender, nondistended. Hepatic and splenic margins not palpable. MUSCULOSKELETAL: Extremities without clubbing, cyanosis, Edema 2+ NEUROLOGICAL: Awake and alert. No obvious cranial nerve deficits. PSYCHIATRIC: Appropriate mood and affect. Medications and IVs Current Medications Medications (Trade) Dose Ordered Sig/Marin Route Start Time Stop Time Status Last Admin (NS Flush) 2 ml UNSCH PRN IV FLUSH 02/14/17 19:45 02/22/17 20:44 (NS Flush) 2 ml BID IV FLUSH 02/14/17 21:00 03/24/17 22:48 (Tylenol) 650 mg Q4H PRN PO 02/14/17 19:45 (Zofran Inj) 4 mg Q6H PRN IVP 02/14/17 19:45 (Lipitor) 80 mg DAILY PO 02/15/17 09:00 03/24/17 09:33 (Keppra) 500 mg BID PO 02/15/17 09:00 03/24/17 22:46 (D50w (Vial) Inj) 50 ml UNSCH PRN IV 02/14/17 21:45 03/04/17 08:09 (Glucagon Inj) 1 mg UNSCH PRN OTHER 02/14/17 21:45 (Vitamin D3) 5,000 units DAILY PO 02/22/17 09:00 03/24/17 09:33 (Marinol) 5 mg BID@11,16 PO 02/22/17 11:00 03/24/17 18:01 (Mag-Al Plus Susp Liq) 30 ml Q6H PRN PO 02/23/17 08:30 02/23/17 08:32 (Lactinex) 1 tab TID PO 02/23/17 13:00 03/24/17 18:01 (Catapres) 0.1 mg Q6H PRN PO 03/03/17 09:00 03/22/17 01:26 (Lovenox Inj) 30 mg Q24H SQ 03/04/17 15:00 03/24/17 14:24 (Cozaar) 50 mg DAILY PO 03/06/17 09:00 03/24/17 09:32 ([place] 5-325 Mg) 1 tab Q6H PRN PO 03/08/17 11:45 03/24/17 14:20 (Diuril) 500 mg DAILY PO 03/16/17 10:00 03/24/17 09:33 (NovoLOG SUPPLEMENTAL SCALE) 1 ACHS SLIDING SCALE SQ 03/17/17 21:00 03/24/17 18:06 (Procardia Xl) 60 mg DAILY PO 03/20/17 09:00 03/24/17 09:32 (PROzac) 10 mg DAILY PO 03/24/17 13:15 A/P Assessment and Plan 46-year-old female admitted secondary to recurrence of C. difficile and bilateral lower extremity edema. Ms. Lang is a 46 year old female with a history of diabetes mellitus, Stage III CKD who presented to the ED on 02/14/2017 due to bilateral lower ext swelling. She was also found to have C. Diff colitis. Patient was started on PO Vancomycin 125mg QID x 14 days. Nephrology was consulted due to suspected nephrotic syndrome. While patient had proteinuria, it did not rise to the level of nephrotic syndrome. ID recommended colonoscopy for persistent diarrhea. GI was consulted. Patient's diarrhea improved and also she refused endoscopic procedures. - Recurrent C. Diff colitis - Patient is was on Vancomycin PO 125mg Q6hrs. - No diarrhea or loose stools. - CDIFF negative 03/11/17 - CKD Stage III at baseline. - Proteinuria - Appreciate nephrology input. - Acute kidney injury appears to be resolved. Peak Creatinine 3.18. - Continue Losartan 50mg Qday. - Follow renal indices. POLE CUTTER 1.31-->1.8 - Diabetes mellitus - Continue sliding scale insulin. - Blood glucose well controlled - around 130-140s. - Hypertension controlled. - Currently on Clonidine 0.1mg Q12hrs, Losartan 50mg Qday. - Continue Nifedipine 60mg Qday.Hold Clonidine in an effort to discontinue it altogether. -Major Depressive Disorder Recurrent seen by Psychiatry specialist at this time no acute evidence of depressive symptoms, Anxiety disorder No attention deficit, no gross cognitive impairment present, at baseline at this time, started on Fluoxetine 20 mg daily for depression brief supportive psychotherapy given. Full code. Lovenox. Discharge Planning Reading the Broth Mixer Notes, she is been denied at [facility], [facility], awaiting for [facility] Answer. Isacc Salinas MD Mar 25, 2017 8:57 am
[2017-03-25] MEDS: CHOLECALCIFEROL (VIT D3) 5000 UNIT CAP PO SCH (09:00)
[2017-03-25] MEDS: NIFEdipine 60 MG SUSTAINED RELEASE TAB PO SCH ×2 (09:00→12:09)
[2017-03-25] MEDS: ATORVASTATIN 80 MG TAB PO SCH (09:00)
[2017-03-25] MEDS: SODIUM CHLORIDE 0.9% FLUSH 10 ML FLUSH IV FLUSH SCH ×2 (09:00→21:26)
[2017-03-25] MEDS: FLUoxetine HCL 10 MG CAP PO SCH (09:00)
[2017-03-25] MEDS: CHLOROTHIAZIDE 500 MG PO SCH ×2 (09:00→12:09)
[2017-03-25] MEDS: LOSARTAN 50 MG TAB PO SCH (09:00)
[2017-03-25] MEDS: levETIRAcetam 500 MG TAB PO SCH ×2 (09:00→21:26)
[2017-03-25] MEDS: LACTOBACILLUS ACIDOPHILUS TAB PO SCH ×3 (09:00→17:25)
[2017-03-25] MEDS: DRONABINOL 5 MG CAP PO SCH ×2 (11:00→16:00)
[2017-03-25 12:00] VITALS: BP 191/108; PULSE 120; RESP 18; TEMP 97.5; O2SAT 91
[2017-03-25] MEDS: ONDANSETRON HCL 4 MG/2 ML VIAL IVP PRN ×2 (13:50→21:27)
[2017-03-25] MEDS: ENOXAPARIN SODIUM 30 MG/0.3 ML SYRINGE SQ SCH (13:50)
[2017-03-25 16:00] VITALS: BP 191/119; PULSE 117; RESP 17; TEMP 98; O2SAT 95
[2017-03-25] MEDS: ACETAMINOPHEN/HYDROcodone 325 MG/5 MG TAB PO PRN (17:25)
[2017-03-25] MEDS: cloNIDine HCL 0.1 MG TAB PO PRN (17:25)
[2017-03-25 20:37] VITALS: BP 142/87; PULSE 109; RESP 16; TEMP 96.4; O2SAT 98
[2017-03-26 08:00] VITALS: BP 144/88; PULSE 100; RESP 16; TEMP 97.5; O2SAT 93
[2017-03-26] MEDS: INSULIN ASPART SUPPLEMENTAL SCALE SQ SCH ×4 (08:00→19:59)
--- NOTE | 2017-03-26 10:00 | HHI.PR ---
Subjective Remarks This is a 46 year old female with multiple medical problems and multiple recent admissions including DM, lupus, hx c diff, CHF who presented with leg swelling. recurrent Diarrhea, She does have hx c diff but recent tests are neg for c diff. She has had loose stool approximately three times a day for the last year or longer. She has had colonoscopy and EGD for abd pain but does not know when and cannot give me further details. Refused further Endoscopic tests GI specialist signed off the case. Stable in her bedroom, no new issues, discussed also with Court Crier still no placement for her. seen by Psychiatry specialist with diagnosis of major depressive disorder recurrent, at this time no acute evidence of depressive symptoms, Anxiety disorder No attention deficit, no gross cognitive impairment present, at baseline at this time, started on Fluoxetine 20 mg daily for depression brief supportive psychotherapy given. 03/26: Somnolent, not answering my questions even awake. Objective Vital Signs Date Time Temp Pulse Resp B/P (MAP) Pulse Ox O2 Delivery O2 Flow Rate FiO2 03/26/17 08:00 97.5 100 16 144/88 (106) 93 03/25/17 20:37 96.4 109 16 142/87 (105) 98 03/25/17 16:00 98.0 117 17 191/119 (143) 95 03/25/17 12:00 97.5 120 18 191/108 (135) 91 I/O 03/25/17 03/25/17 03/25/17 03/26/17 03/26/17 03/26/17 07:00 15:00 23:00 07:00 15:00 23:00 Intake Total 300 ml 480 ml Output Total 600 ml 600 ml Balance -300 ml -120 ml Intake Oral 300 ml 480 ml Output Urine Total 600 ml 600 ml # Voids 1 2 # Bowel Movements 4 Imaging Last Impressions Chest X-Ray 02/25/17 0000 Signed Impressions: Service Date/Time: Saturday, February 25, 2017 22:51 - CONCLUSION: 1. Left IJ central venous catheter projects over the central venous system. No pneumothorax. 2. Vascular congestion appears to have improved but there are still patchy areas of infiltrate predominantly in the right upper lung and left perihilar distribution. Genaro Key MD Lower Extremity Ultrasound 02/24/17 0000 Signed Impressions: Service Date/Time: February 11:34 - CONCLUSION: No evidence of deep venous thrombosis within the lower extremities. Villa Calderon MD Procedures None Other Results Laboratory Tests Test 02/14/17 17:00 02/22/17 14:27 02/23/17 03:00 02/25/17 13:00 B-Type Natriuretic Peptide 175 PG/ML Blood Smear Pathologist Review Erythrocyte Sedimentation Rate 65 mm/hr Reticulocyte Count 3.4 % Absolute Reticulocyte Count 94.3 MIL/L Direct Bilirubin 0.1 MG/DL Indirect Bilirubin 0.2 MG/DL Urine Color YELLOW Urine Turbidity HAZY Urine pH 5.5 Urine Specific [place] 1.010 Urine Protein 30 mg/dL Urine Glucose (UA) NEG mg/dL Urine Ketones NEG mg/dL Urine Occult Blood NEG Urine Nitrite NEG Urine Bilirubin NEG Urine Urobilinogen LESS THAN 2.0 MG/DL Urine Leukocyte Esterase LARGE Urine RBC 4 /hpf Urine WBC 15 /hpf Urine Squamous Epithelial Cells 2 /hpf Urine Bacteria OCC /hpf Urine Yeast (Budding) OCC Microscopic Urinalysis Comment CULTURE INDICATED Blood Gas Puncture Site RT RADIAL Blood Gas Patient Temperature 98.6 Blood Gas HCO3 20 mmol/L Blood Gas Base Excess -5.1 mmol/L Blood Gas Oxygen Saturation 97 % Arterial Blood pH 7.30 Arterial Blood Partial Pressure CO2 42 mmHg Arterial Blood Partial Pressure O2 298 mmHg Arterial Blood Oxygen Content 14.8 Vol % Arterial Blood Carboxyhemoglobin 1.6 % Arterial Blood Methemoglobin 1.3 % Blood Gas Hemoglobin 10.3 G/DL Oxygen Delivery Device Non-Rebreathing Mask Blood Gas Liter Flow 15 L/M Blood Gas Inspired Oxygen 100 % Test 02/25/17 23:10 02/26/17 17:00 03/01/17 05:35 03/02/17 06:48 Prothrombin Time 14.0 SEC Prothromb Time International Ratio 1.3 RATIO Activated Partial Thromboplast Time 35.2 SEC Fibrinogen 426 mg/dL Lactic Acid Level 1.5 mmol/L Ammonia 25 MCMOL/L Amylase Level 19 U/L Lipase 29 U/L Thyroid Stimulating Hormone 3rd Gen 1.490 uIU/ML Urine Total Volume 24 Hours 1350 ML Urine Total Protein 24 Hour 1638 MG/24HR Metamyelocytes 1 % Toxic Vacuolation Myelocytes 1 % Test 03/05/17 07:04 03/07/17 05:29 03/10/17 05:27 03/18/17 13:12 Differential Total Cells Counted 100 Neutrophils % (Manual) 80 % Band Neutrophils % 5 % Lymphocytes % 10 % Monocytes % 4 % Eosinophils % 1 % Neutrophils # (Manual) 10.9 TH/MM3 Blood Urea Nitrogen 27 MG/DL 14 MG/DL 10 MG/DL Creatinine 1.26 MG/DL 1.32 MG/DL 1.84 MG/DL Random Glucose 117 MG/DL 160 MG/DL 153 MG/DL Total Protein 5.5 GM/DL Albumin 2.2 GM/DL 2.0 GM/DL Calcium Level 7.7 MG/DL 8.1 MG/DL 7.7 MG/DL Phosphorus Level 2.5 MG/DL 2.4 MG/DL Magnesium Level 1.9 MG/DL Alkaline Phosphatase 321 U/L Aspartate Amino Transf (AST/SGOT) 49 U/L Alanine Aminotransferase (ALT/SGPT) 76 U/L Total Bilirubin 0.6 MG/DL Sodium Level 145 MEQ/L 148 MEQ/L 143 MEQ/L Potassium Level 4.2 MEQ/L 3.9 MEQ/L 3.6 MEQ/L Chloride Level 114 MEQ/L 115 MEQ/L 109 MEQ/L Carbon Dioxide Level 25.1 MEQ/L 24.5 MEQ/L 24.0 MEQ/L Platelet Estimate LOW Platelet Morphology Comment ENLARGED Ovalocytes 1+ Acanthocytes OCC White Blood Count 7.4 TH/MM3 Red Blood Count 3.22 MIL/MM3 Hemoglobin 9.6 GM/DL Hematocrit 29.4 % Mean Corpuscular Volume 91.3 FL Mean Corpuscular Hemoglobin 29.7 PG Mean Corpuscular Hemoglobin Concent 32.5 % Red Cell Distribution Width 15.5 % Platelet Count 165 TH/MM3 Mean Platelet Volume 10.2 FL Neutrophils (%) (Auto) 73.9 % Lymphocytes (%) (Auto) 15.7 % Monocytes (%) (Auto) 7.4 % Eosinophils (%) (Auto) 2.1 % Basophils (%) (Auto) 0.9 % Neutrophils # (Auto) 5.5 TH/MM3 Lymphocytes # (Auto) 1.2 TH/MM3 Monocytes # (Auto) 0.6 TH/MM3 Eosinophils # (Auto) 0.2 TH/MM3 Basophils # (Auto) 0.1 TH/MM3 CBC Comment DIFF FINAL Differential Comment Anion Gap 10 MEQ/L Estimat Glomerular Filtration Rate 35 ML/MIN Test 03/25/17 07:30 Stool C. difficile Toxin (PCR) NEGATIVE Stl C. difficile Toxin Epiderm 027 PRESUMPTIVE NEGATIVE Objective Remarks GENERAL: Awake alert SKIN: Warm and dry. HEAD: Atraumatic. Normocephalic. NECK: Trachea midline. No JVD. MUSCULOSKELETAL: Extremities without clubbing, cyanosis. NEUROLOGICAL: Somnolent. PSYCHIATRIC: flat affect. Medications and IVs Current Medications Medications (Trade) Dose Ordered Sig/Marin Route Start Time Stop Time Status Last Admin (NS Flush) 2 ml UNSCH PRN IV FLUSH 02/14/17 19:45 02/22/17 20:44 (NS Flush) 2 ml BID IV FLUSH 02/14/17 21:00 03/25/17 21:26 (Tylenol) 650 mg Q4H PRN PO 02/14/17 19:45 (Zofran Inj) 4 mg Q6H PRN IVP 02/14/17 19:45 03/25/17 21:27 (Lipitor) 80 mg DAILY PO 02/15/17 09:00 03/24/17 09:33 (Keppra) 500 mg BID PO 02/15/17 09:00 03/25/17 21:26 (D50w (Vial) Inj) 50 ml UNSCH PRN IV 02/14/17 21:45 03/04/17 08:09 (Glucagon Inj) 1 mg UNSCH PRN OTHER 02/14/17 21:45 (Vitamin D3) 5,000 units DAILY PO 02/22/17 09:00 03/24/17 09:33 (Marinol) 5 mg BID@11,16 PO 02/22/17 11:00 03/24/17 18:01 (Mag-Al Plus Susp Liq) 30 ml Q6H PRN PO 02/23/17 08:30 02/23/17 08:32 (Lactinex) 1 tab TID PO 02/23/17 13:00 03/25/17 17:25 (Catapres) 0.1 mg Q6H PRN PO 03/03/17 09:00 03/25/17 17:25 (Lovenox Inj) 30 mg Q24H SQ 03/04/17 15:00 03/25/17 13:50 (Cozaar) 50 mg DAILY PO 03/06/17 09:00 03/24/17 09:32 ([place] 5-325 Mg) 1 tab Q6H PRN PO 03/08/17 11:45 03/25/17 17:25 (Diuril) 500 mg DAILY PO 03/16/17 10:00 03/25/17 12:09 (NovoLOG SUPPLEMENTAL SCALE) 1 ACHS SLIDING SCALE SQ 03/17/17 21:00 03/25/17 21:00 (Procardia Xl) 60 mg DAILY PO 03/20/17 09:00 03/25/17 12:09 (PROzac) 10 mg DAILY PO 03/24/17 13:15 A/P Assessment and Plan 46-year-old female admitted secondary to recurrence of C. difficile and bilateral lower extremity edema. Ms. Lang is a 46 year old female with a history of diabetes mellitus, Stage III CKD who presented to the ED on 02/14/2017 due to bilateral lower ext swelling. She was also found to have C. Diff colitis. Patient was started on PO Vancomycin 125mg QID x 14 days. Nephrology was consulted due to suspected nephrotic syndrome. While patient had proteinuria, it did not rise to the level of nephrotic syndrome. ID recommended colonoscopy for persistent diarrhea. GI was consulted. Patient's diarrhea improved and also she refused endoscopic procedures. - Recurrent C. Diff colitis - Patient is was on Vancomycin PO 125mg Q6hrs. - No diarrhea or loose stools. - CDIFF negative 03/11/17 - CKD Stage III at baseline. - Proteinuria - Appreciate nephrology input. - Acute kidney injury appears to be resolved. Peak Creatinine 3.18. - Continue Losartan 50mg Qday. - Follow renal indices. 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 - Blood glucose well controlled - around 130-140s. - Hypertension controlled. - Currently on Clonidine 0.1mg Q12hrs, Losartan 50mg Qday. - Continue Nifedipine 60mg Qday.Hold Clonidine in an effort to discontinue it altogether. -Major Depressive Disorder Recurrent seen by Psychiatry specialist at this time no acute evidence of depressive symptoms, Anxiety disorder No attention deficit, no gross cognitive impairment present, at baseline at this time, started on Fluoxetine 20 mg daily for depression brief supportive psychotherapy given. Full code. Lovenox. Discharge Planning Reading the Court Crier Notes, she is been denied at [facility], [facility], [facility], awaiting for [facility] refused the patient Isacc Salinas MD Mar 26, 2017 10:00
[2017-03-26] MEDS: SODIUM CHLORIDE 0.9% FLUSH 10 ML FLUSH IV FLUSH SCH ×2 (10:04→19:52)
[2017-03-26] MEDS: DRONABINOL 5 MG CAP PO SCH ×2 (10:04→16:35)
[2017-03-26] MEDS: LOSARTAN 50 MG TAB PO SCH (10:04)
[2017-03-26] MEDS: LACTOBACILLUS ACIDOPHILUS TAB PO SCH ×3 (10:05→16:35)
[2017-03-26] MEDS: FLUoxetine HCL 10 MG CAP PO SCH (10:05)
[2017-03-26] MEDS: CHOLECALCIFEROL (VIT D3) 5000 UNIT CAP PO SCH (10:05)
[2017-03-26] MEDS: CHLOROTHIAZIDE 500 MG PO SCH (10:05)
[2017-03-26] MEDS: levETIRAcetam 500 MG TAB PO SCH ×2 (10:05→19:52)
[2017-03-26] MEDS: NIFEdipine 60 MG SUSTAINED RELEASE TAB PO SCH (10:05)
[2017-03-26] MEDS: ATORVASTATIN 80 MG TAB PO SCH (10:05)
[2017-03-26 12:00] VITALS: BP 176/97; PULSE 100; RESP 18; TEMP 98; O2SAT 98
[2017-03-26] MEDS: cloNIDine HCL 0.1 MG TAB PO PRN (12:41)
[2017-03-26] MEDS: ONDANSETRON HCL 4 MG/2 ML VIAL IVP PRN (12:49)
[2017-03-26 16:00] VITALS: BP 140/77; PULSE 98; RESP 16; TEMP 97.8; O2SAT 91
[2017-03-26] MEDS: ENOXAPARIN SODIUM 30 MG/0.3 ML SYRINGE SQ SCH (16:36)
[2017-03-26 20:32] VITALS: BP 117/67; PULSE 80; RESP 16; TEMP 99; O2SAT 98
[2017-03-26 23:30] VITALS: BP 75/46; PULSE 83; RESP 16; TEMP 97.5; O2SAT 92
[2017-03-26] MEDS ORDERED: SODIUM CHLORID 0.9% 500 ML INJ 500 ML IV ONE (23:30)
[2017-03-27 00:19] VITALS: BP 110/52
[2017-03-27 08:00] VITALS: BP 158/95; PULSE 93; RESP 18; TEMP 98.1; O2SAT 97
[2017-03-27] MEDS: CHOLECALCIFEROL (VIT D3) 5000 UNIT CAP PO SCH (09:23)
[2017-03-27] MEDS: levETIRAcetam 500 MG TAB PO SCH ×2 (09:23→21:24)
[2017-03-27] MEDS: CHLOROTHIAZIDE 500 MG PO SCH (09:23)
[2017-03-27] MEDS: LACTOBACILLUS ACIDOPHILUS TAB PO SCH ×3 (09:23→17:04)
[2017-03-27] MEDS: FLUoxetine HCL 10 MG CAP PO SCH (09:23)
[2017-03-27] MEDS: ATORVASTATIN 80 MG TAB PO SCH (09:23)
[2017-03-27] MEDS: LOSARTAN 50 MG TAB PO SCH (09:24)
[2017-03-27] MEDS: NIFEdipine 60 MG SUSTAINED RELEASE TAB PO SCH (09:24)
[2017-03-27] MEDS: ACETAMINOPHEN/HYDROcodone 325 MG/5 MG TAB PO PRN (09:24)
[2017-03-27] MEDS: INSULIN ASPART SUPPLEMENTAL SCALE SQ SCH ×4 (09:24→21:00)
[2017-03-27] MEDS: SODIUM CHLORIDE 0.9% FLUSH 10 ML FLUSH IV FLUSH SCH ×2 (09:25→21:00)
[2017-03-27] MEDS: ONDANSETRON HCL 4 MG/2 ML VIAL IVP PRN ×2 (10:41→17:05)
[2017-03-27] MEDS: DRONABINOL 5 MG CAP PO SCH ×2 (11:51→17:04)
[2017-03-27 12:00] VITALS: BP_SYST 171; BP_SYST 175; BP_DIAS 100; BP_DIAS 104; PULSE 93; RESP 18; TEMP 98.4; O2SAT 91
--- NOTE | 2017-03-27 12:13 | HHI.PR ---
Subjective Remarks Patient in bed. Feels nauseated, some improvement with zofran. Did not vomit. Also BP into a higher side. No diarrhea, had a loose BM yesterday. No fever or chills. No abd pain. Objective Vitals Vital Signs Date Time Temp Pulse Resp B/P (MAP) Pulse Ox O2 Delivery O2 Flow Rate FiO2 03/27/17 08:00 98.1 93 18 158/95 (116) 97 03/27/17 00:19 110/52 (71) 03/26/17 23:30 97.5 83 16 75/46 (56) 92 03/26/17 20:32 99.0 80 16 117/67 (84) 98 03/26/17 16:00 97.8 98 16 140/77 (98) 91 I/O 03/26/17 03/26/17 03/26/17 03/27/17 03/27/17 03/27/17 07:00 15:00 23:00 07:00 15:00 23:00 Intake Total 480 ml 600 ml 980 ml Output Total 600 ml 550 ml 500 ml Balance -120 ml -550 ml 100 ml 980 ml Intake Oral 480 ml 600 ml 480 ml IV Total 500 ml Output Urine Total 600 ml 550 ml 500 ml # Voids 2 2 # Bowel Movements 0 0 Imaging Last Impressions Chest X-Ray 02/25/17 0000 Signed Impressions: Service Date/Time: Saturday, February 25, 2017 22:51 - CONCLUSION: 1. Left IJ central venous catheter projects over the central venous system. No pneumothorax. 2. Vascular congestion appears to have improved but there are still patchy areas of infiltrate predominantly in the right upper lung and left perihilar distribution. Genaro Key MD Lower Extremity Ultrasound 02/24/17 0000 Signed Impressions: Service Date/Time: February 11:34 - CONCLUSION: No evidence of deep venous thrombosis within the lower extremities. Villa Calderon MD Objective Remarks GENERAL: Somnolent, appears in nad. SKIN: Warm and dry. HEAD: Atraumatic. Normocephalic. NECK: Trachea midline. No JVD. MUSCULOSKELETAL: Extremities without clubbing, cyanosis. NEUROLOGICAL: Somnolent. PSYCHIATRIC: flat affect. Procedures Left IJ central line 02/25/2017. A/P Problem List: (1) Diastolic CHF, acute ICD Code: I50.31 - Acute diastolic (congestive) heart failure (2) Hypoalbuminemia ICD Code: E88.09 - Other disorders of plasma-protein metabolism, not elsewhere classified (3) DM (diabetes mellitus) type I uncontrolled with renal manifestation ICD Code: E10.29 - Uncontrolled type 1 diabetes mellitus with renal manifestations; E10.65 - Type 1 diabetes mellitus with hyperglycemia Status: Chronic (4) Hypertension ICD Code: I10 - Hypertension Status: Acute (5) Hypernatremia ICD Code: E87.0 - Hyperosmolality and hypernatremia Assessment and Plan 46-year-old female admitted secondary to recurrence of C. difficile and bilateral lower extremity edema. Ms. Lang is a 46 year old female with a history of diabetes mellitus, Stage III CKD who presented to the ED on 02/14/2017 due to bilateral lower ext swelling. She was also found to have C. Diff colitis. Patient was started on PO Vancomycin 125mg QID x 14 days. Nephrology was consulted due to suspected nephrotic syndrome. While patient had proteinuria, it did not rise to the level of nephrotic syndrome. ID recommended colonoscopy for persistent diarrhea. GI was consulted. Patient's diarrhea improved and also she refused endoscopic procedures. Patient needs rehab CM following for DC plan - Recurrent C. Diff colitis - Patient is was on Vancomycin PO 125mg Q6hrs. - No diarrhea or loose stools. - CDIFF negative 03/11/17 - Nausea: Zofran as need. Add phenergan - Elevated BP start metoprolol 12.5 mg bid and add PRN. Monitor BP and adjust meds. - CKD Stage III at baseline. - Proteinuria - Appreciate nephrology input. - Acute kidney injury appears to be resolved. Peak Creatinine 3.18. - Continue Losartan 50mg Qday. - Follow renal indices. ATTENDANT CHILD ACTIVITY 1.31-->1.8 - Diabetes mellitus - Continue sliding scale insulin. - Blood glucose well controlled - around 130-140s. - Hypertension controlled. - Currently on Clonidine 0.1mg Q12hrs, Losartan 50mg Qday. - Continue Nifedipine 60mg Qday.Hold Clonidine in an effort to discontinue it altogether. -Major Depressive Disorder Recurrent seen by Psychiatry specialist at this time no acute evidence of depressive symptoms, Anxiety disorder No attention deficit, no gross cognitive impairment present, at baseline at this time, started on Fluoxetine 20 mg daily for depression brief supportive psychotherapy given. Full code. Aba. Discharge Planning Per Senior Energy Consultant Notes, she is been denied at [facility], [facility], awaiting for [facility] refused the patient ff for DC plan Problem Qualifiers (1) DM (diabetes mellitus) type I uncontrolled with renal manifestation: (2) Hypertension: Qualified Codes: I10 - Essential (primary) hypertension Lelo Price MD Mar 27, 2017 12:13
[2017-03-27] MEDS: cloNIDine HCL 0.1 MG TAB PO PRN (12:31)
[2017-03-27] MEDS ORDERED: METOPROLOL TARTRATE 25 MG TAB PO ONE (13:00)
[2017-03-27] MEDS ORDERED: PILL SPLITTER OTHER PRN (13:00)
[2017-03-27] MEDS: ENOXAPARIN SODIUM 30 MG/0.3 ML SYRINGE SQ SCH (13:46)
[2017-03-27 16:00] VITALS: BP 169/89; PULSE 82; RESP 17; TEMP 97.6; O2SAT 95
[2017-03-27 20:00] VITALS: BP 111/59; PULSE 77; RESP 18; TEMP 97.2
[2017-03-27] MEDS: METOPROLOL TARTRATE 25 MG TAB PO SCH (21:25)
[2017-03-28 08:00] VITALS: BP 138/67; PULSE 87; RESP 16; TEMP 97.1; O2SAT 90
[2017-03-28] MEDS: INSULIN ASPART SUPPLEMENTAL SCALE SQ SCH ×4 (08:00→21:00)
[2017-03-28] MEDS: SODIUM CHLORIDE 0.9% FLUSH 10 ML FLUSH IV FLUSH SCH ×2 (09:00→22:28)
[2017-03-28] MEDS: CHOLECALCIFEROL (VIT D3) 5000 UNIT CAP PO SCH (09:00)
[2017-03-28] MEDS: levETIRAcetam 500 MG TAB PO SCH ×2 (10:27→22:28)
[2017-03-28] MEDS: LOSARTAN 50 MG TAB PO SCH (10:27)
[2017-03-28] MEDS: FLUoxetine HCL 10 MG CAP PO SCH (10:28)
[2017-03-28] MEDS: ATORVASTATIN 80 MG TAB PO SCH (10:28)
[2017-03-28] MEDS: LACTOBACILLUS ACIDOPHILUS TAB PO SCH ×3 (10:28→16:53)
[2017-03-28] MEDS: METOPROLOL TARTRATE 25 MG TAB PO SCH ×2 (10:28→22:33)
[2017-03-28] MEDS: NIFEdipine 60 MG SUSTAINED RELEASE TAB PO SCH (10:28)
[2017-03-28] MEDS: CHLOROTHIAZIDE 500 MG PO SCH (10:28)
--- NOTE | 2017-03-28 10:58 | HHI.DS ---
Discharge Summary Admission Date Feb 14, 2017 at 18:39 Admitting Diagnosis Bilateral lower ext edema, noncompliance with medication (1) Diastolic CHF, acute ICD Code: I50.31 - Acute diastolic (congestive) heart failure (2) Hypoalbuminemia ICD Code: E88.09 - Other disorders of plasma-protein metabolism, not elsewhere classified (3) DM (diabetes mellitus) type I uncontrolled with renal manifestation ICD Code: E10.29 - Uncontrolled type 1 diabetes mellitus with renal manifestations; E10.65 - Type 1 diabetes mellitus with hyperglycemia Status: Chronic (4) Hypertension ICD Code: I10 - Hypertension Status: Acute (5) Hypernatremia ICD Code: E87.0 - Hyperosmolality and hypernatremia Procedures Left IJ central line 02/25/2017. Brief History - From Admission Written by Elena Henry, acting as scribe for Dr. Jenkins on 02/14/17 at 20:22. Patient states she has "water on my legs" along with lower extremity weakness since her discharge from the hospital on Friday 02/09. She states she never picked up her prescriptions after being discharged from the hospital. She is alert and oriented but a difficult historian as she will not directly answer questions about her care at home and whether she has help at home. She does state that she is supposed to go to a rehabilitation facility. She had a lengthy admission from December 02, 2016 through February 09, 2017 for right tibia and fibula fracture. She was discharged home with home health. PE at Discharge GENERAL: Somnolent, appears in nad. SKIN: Warm and dry. HEAD: Atraumatic. Normocephalic. NECK: Trachea midline. No JVD. MUSCULOSKELETAL: Extremities without clubbing, cyanosis. NEUROLOGICAL: Somnolent. PSYCHIATRIC: flat affect. Pt Condition on Discharge: Stable Discharge Disposition: Discharge to SNF Discharge Instructions DIET: Follow Instructions for: Diabetic Diet Additional Diet Instructions: FLUID RESTRIC 1500ML. LOW sodium diet. Fluid Restrictions: 1500ml Activities you can perform: Weight Bearing as Cezar Lelo Price MD Mar 28, 2017 10:58
[2017-03-28 12:00] VITALS: BP 167/93; PULSE 83; RESP 19; TEMP 99.3; O2SAT 98
--- NOTE | 2017-03-28 13:08 | HHI.PR ---
Subjective Remarks till with nausea, no vomiting No fever ro chills. Ambulating with PT, says she feels tired. Encouraged PT No abd pain . Had a loose BM today no diarrhea. Objective Vitals Vital Signs Date Time Temp Pulse Resp B/P (MAP) Pulse Ox O2 Delivery O2 Flow Rate FiO2 03/28/17 12:00 99.3 83 19 167/93 (117) 98 03/28/17 08:00 97.1 87 16 138/67 (90) 90 03/27/17 20:00 97.2 77 18 111/59 (76) 03/27/17 16:00 97.6 82 17 169/89 (115) 95 I/O 03/27/17 03/27/17 03/27/17 03/28/17 03/28/17 03/28/17 07:00 15:00 23:00 07:00 15:00 23:00 Intake Total 980 ml 600 ml 120 ml Output Total 200 ml 500 ml Balance 980 ml 400 ml -380 ml Intake Oral 480 ml 600 ml 120 ml IV Total 500 ml Output Urine Total 200 ml 500 ml # Voids 2 2 # Bowel Movements 0 0 0 Imaging Last Impressions Chest X-Ray 02/25/17 0000 Signed Impressions: Service Date/Time: Saturday, February 25, 2017 22:51 - CONCLUSION: 1. Left IJ central venous catheter projects over the central venous system. No pneumothorax. 2. Vascular congestion appears to have improved but there are still patchy areas of infiltrate predominantly in the right upper lung and left perihilar distribution. Genaro Key MD Lower Extremity Ultrasound 02/24/17 0000 Signed Impressions: Service Date/Time: February 11:34 - CONCLUSION: No evidence of deep venous thrombosis within the lower extremities. Villa Calderon MD Objective Remarks GENERAL: Somnolent, appears in nad. SKIN: Warm and dry. HEAD: Atraumatic. Normocephalic. NECK: Trachea midline. No JVD. MUSCULOSKELETAL: Extremities without clubbing, cyanosis. NEUROLOGICAL: Somnolent. PSYCHIATRIC: flat affect. Procedures Left IJ central line 02/25/2017. A/P Problem List: (1) Diastolic CHF, acute ICD Code: I50.31 - Acute diastolic (congestive) heart failure (2) Hypoalbuminemia ICD Code: E88.09 - Other disorders of plasma-protein metabolism, not elsewhere classified (3) DM (diabetes mellitus) type I uncontrolled with renal manifestation ICD Code: E10.29 - Uncontrolled type 1 diabetes mellitus with renal manifestations; E10.65 - Type 1 diabetes mellitus with hyperglycemia Status: Chronic (4) Hypertension ICD Code: I10 - Hypertension Status: Acute (5) Hypernatremia ICD Code: E87.0 - Hyperosmolality and hypernatremia Assessment and Plan 46-year-old female admitted secondary to recurrence of C. difficile and bilateral lower extremity edema. Ms. Lang is a 46 year old female with a history of diabetes mellitus, Stage III CKD who presented to the ED on 02/14/2017 due to bilateral lower ext swelling. She was also found to have C. Diff colitis. Patient was started on PO Vancomycin 125mg QID x 14 days. Nephrology was consulted due to suspected nephrotic syndrome. While patient had proteinuria, it did not rise to the level of nephrotic syndrome. ID recommended colonoscopy for persistent diarrhea. GI was consulted. Patient's diarrhea improved and also she refused endoscopic procedures. Patient needs rehab CM following for DC plan - Recurrent C. Diff colitis - Patient is was on Vancomycin PO 125mg Q6hrs. - No diarrhea or loose stools. - CDIFF negative 03/11/17 - Nausea: Zofran as need. Add phenergan - Elevated BP start metoprolol 12.5 mg bid and add PRN. Monitor BP and adjust meds. - CKD Stage III at baseline. - Proteinuria - Appreciate nephrology input. - Acute kidney injury appears to be resolved. Peak Creatinine 3.18. - Continue Losartan 50mg Qday. - Follow renal indices. 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 - Blood glucose well controlled - around 130-140s. - Hypertension controlled. - Currently on Clonidine 0.1mg Q12hrs, Losartan 50mg Qday. - Continue Nifedipine 60mg Qday.Hold Clonidine in an effort to discontinue it altogether. -Major Depressive Disorder Recurrent seen by Psychiatry specialist at this time no acute evidence of depressive symptoms, Anxiety disorder No attention deficit, no gross cognitive impairment present, at baseline at this time, started on Fluoxetine 20 mg daily for depression brief supportive psychotherapy given. Full code. Lovenox. Discharge Planning Per Director Corporate Communications Notes, she is been denied at [facility], [facility], [facility], awaiting for [facility] refused the patient ff for DC plan Problem Qualifiers (1) DM (diabetes mellitus) type I uncontrolled with renal manifestation: (2) Hypertension: Qualified Codes: I10 - Essential (primary) hypertension Lelo Price MD Mar 28, 2017 13:08
[2017-03-28] MEDS: DRONABINOL 5 MG CAP PO SCH ×2 (13:25→18:30)
[2017-03-28 16:00] VITALS: BP 154/93; PULSE 85; RESP 18; TEMP 97.8; O2SAT 94
[2017-03-28] MEDS: ENOXAPARIN SODIUM 30 MG/0.3 ML SYRINGE SQ SCH (16:53)
[2017-03-28] MEDS: ACETAMINOPHEN/HYDROcodone 325 MG/5 MG TAB PO PRN ×2 (16:58→22:41)
[2017-03-28 22:42] VITALS: BP 158/90; PULSE 85
[2017-03-29] VITALS: BP 128/71; PULSE 74; RESP 18; TEMP 98; O2SAT 87
[2017-03-29 05:30] LABS: AUTOMATED NEUTROPHIL # 3.4 TH/MM3 (1.8-7.7); BASOPHIL # 0.1 TH/MM3 (0-0.2); BASOPHIL % 1.5 % (0.0-2.0); EOSINOPHIL # 0.2 TH/MM3 (0-0.4); EOSINOPHIL % 3.3 % (0.0-4.0); HEMATOCRIT 30.5 % (35.0-46.0); HEMO FLAGS DIFF FINAL; LYMPH % 23.3 % (9.0-44.0); LYMPHOCYTE # 1.2 TH/MM3 (1.0-4.8); MEAN CELL VOLUME 88.3 FL (80.0-100.0); MEAN CORPUSCULAR HGB CONC 32.9 % (32.0-36.0); MONO % 8.2 % (0.0-8.0); NEUT % 63.7 % (16.0-70.0); PLATELET COUNT 181 TH/MM3 (150-450); RED BLOOD COUNT 3.45 MIL/MM3 (4.00-5.30); RED CELL DISTRIBUTION WIDTH 14.5 % (11.6-17.2); WHITE BLOOD COUNT 5.3 TH/MM3 (4.0-11.0)
[2017-03-29 06:02] LABS: BICARBONATE 30.7 MEQ/L (21.0-32.0)
[2017-03-29 08:00] VITALS: BP 139/71; PULSE 82; RESP 16; TEMP 97.6; O2SAT 93
[2017-03-29] MEDS: INSULIN ASPART SUPPLEMENTAL SCALE SQ SCH ×4 (08:00→20:42)
[2017-03-29] MEDS: levETIRAcetam 500 MG TAB PO SCH ×2 (09:00→20:41)
[2017-03-29] MEDS: FLUoxetine HCL 10 MG CAP PO SCH (09:00)
[2017-03-29] MEDS: LOSARTAN 50 MG TAB PO SCH (09:00)
[2017-03-29] MEDS: LACTOBACILLUS ACIDOPHILUS TAB PO SCH ×3 (09:00→16:07)
[2017-03-29] MEDS: NIFEdipine 60 MG SUSTAINED RELEASE TAB PO SCH (09:00)
[2017-03-29] MEDS: SODIUM CHLORIDE 0.9% FLUSH 10 ML FLUSH IV FLUSH SCH ×2 (09:00→20:41)
[2017-03-29] MEDS: METOPROLOL TARTRATE 25 MG TAB PO SCH ×2 (09:00→20:41)
[2017-03-29] MEDS: CHLOROTHIAZIDE 500 MG PO SCH (09:00)
[2017-03-29] MEDS: CHOLECALCIFEROL (VIT D3) 5000 UNIT CAP PO SCH (09:00)
[2017-03-29] MEDS: ATORVASTATIN 80 MG TAB PO SCH (09:00)
[2017-03-29] MEDS: DRONABINOL 5 MG CAP PO SCH ×2 (11:00→16:00)
[2017-03-29 12:00] VITALS: BP 149/89; PULSE 84; RESP 16; TEMP 97.8; O2SAT 96
[2017-03-29] MEDS: ENOXAPARIN SODIUM 30 MG/0.3 ML SYRINGE SQ SCH (15:00)
[2017-03-29 16:00] VITALS: BP 172/102; PULSE 92; RESP 17; TEMP 97.4; O2SAT 97
[2017-03-29] MEDS: ACETAMINOPHEN/HYDROcodone 325 MG/5 MG TAB PO PRN ×2 (16:10→20:41)
--- NOTE | 2017-03-29 17:19 | HHI.PR ---
Subjective Remarks Seen earlier today. In bed, sleepy. Doesn't want to talk much . Patient was encouraged to sleep during the night and to participate during the day in PT. Patient say she is still nauseated, however did not vomit. Not able to eat much . Says she has no appetite will start multivit. Also patient with 2 loose BM yesterday none today. No fever or chills. No abd pain at this time. Objective Vitals Vital Signs Date Time Temp Pulse Resp B/P (MAP) Pulse Ox O2 Delivery O2 Flow Rate FiO2 03/29/17 16:00 97.4 92 17 172/102 (125) 97 03/29/17 12:00 97.8 84 16 149/89 (109) 96 03/29/17 08:00 97.6 82 16 139/71 (93) 93 03/29/17 00:00 98.0 74 18 128/71 (90) 87 03/28/17 22:42 85 158/90 (112) I/O 03/28/17 03/28/17 03/28/17 03/29/17 03/29/17 03/29/17 07:00 15:00 23:00 07:00 15:00 23:00 Intake Total 120 ml 0 ml 240 ml Output Total 500 ml 3 ml Balance -380 ml -3 ml 240 ml Intake Oral 120 ml 0 ml 240 ml Output Urine Total 500 ml 3 ml # Bowel Movements 0 3 Result Diagram: 03/29/17 0521 03/29/17 0521 Imaging Last Impressions Chest X-Ray 02/25/17 0000 Signed Impressions: Service Date/Time: Saturday, February 25, 2017 22:51 - CONCLUSION: 1. Left IJ central venous catheter projects over the central venous system. No pneumothorax. 2. Vascular congestion appears to have improved but there are still patchy areas of infiltrate predominantly in the right upper lung and left perihilar distribution. Genaro Key MD Lower Extremity Ultrasound 02/24/17 0000 Signed Impressions: Service Date/Time: February 11:34 - CONCLUSION: No evidence of deep venous thrombosis within the lower extremities. Villa Calderon MD Objective Remarks GENERAL: Somnolent, appears in nad. SKIN: Warm and dry. HEAD: Atraumatic. Normocephalic. NECK: Trachea midline. No JVD. MUSCULOSKELETAL: Extremities without clubbing, cyanosis. NEUROLOGICAL: Somnolent. PSYCHIATRIC: flat affect. Procedures Left IJ central line 02/25/2017. A/P Problem List: (1) Diastolic CHF, acute ICD Code: I50.31 - Acute diastolic (congestive) heart failure (2) Hypoalbuminemia ICD Code: E88.09 - Other disorders of plasma-protein metabolism, not elsewhere classified (3) DM (diabetes mellitus) type I uncontrolled with renal manifestation ICD Code: E10.29 - Uncontrolled type 1 diabetes mellitus with renal manifestations; E10.65 - Type 1 diabetes mellitus with hyperglycemia Status: Chronic (4) Hypertension ICD Code: I10 - Hypertension Status: Acute (5) Hypernatremia ICD Code: E87.0 - Hyperosmolality and hypernatremia Assessment and Plan 46-year-old female admitted secondary to recurrence of C. difficile and bilateral lower extremity edema. Ms. Lang is a 46 year old female with a history of diabetes mellitus, Stage III CKD who presented to the ED on 02/14/2017 due to bilateral lower ext swelling. She was also found to have C. Diff colitis. Patient was started on PO Vancomycin 125mg QID x 14 days. Nephrology was consulted due to suspected nephrotic syndrome. While patient had proteinuria, it did not rise to the level of nephrotic syndrome. ID recommended colonoscopy for persistent diarrhea. GI was consulted. Patient's diarrhea improved and also she refused endoscopic procedures. Patient needs rehab CM following for DC plan - Recurrent C. Diff colitis - Patient is was on Vancomycin PO 125mg Q6hrs. - No diarrhea or loose stools. - CDIFF negative 03/11/17 - Nausea: Zofran as need. Add phenergan - Elevated BP start metoprolol 12.5 mg bid and add PRN. Monitor BP and adjust meds. - CKD Stage III at baseline. - Proteinuria - Appreciate nephrology input. - Acute kidney injury appears to be resolved. Peak Creatinine 3.18. - Continue Losartan 50mg Qday. - Follow renal indices. 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 - Blood glucose well controlled - around 130-140s. - Hypertension controlled. - Currently on Clonidine 0.1mg Q12hrs, Losartan 50mg Qday. - Continue Nifedipine 60mg Qday.Hold Clonidine in an effort to discontinue it altogether. -Major Depressive Disorder Recurrent seen by Psychiatry specialist at this time no acute evidence of depressive symptoms, Anxiety disorder No attention deficit, no gross cognitive impairment present, at baseline at this time, started on Fluoxetine 20 mg daily for depression brief supportive psychotherapy given. - Decreased appetite add multivit Full code. Lovenox. Discharge Planning Per Plant Operations Engineer Notes, she is been denied at [facility], [facility], awaiting for [facility] refused the patient ff for DC plan Problem Qualifiers (1) DM (diabetes mellitus) type I uncontrolled with renal manifestation: (2) Hypertension: Qualified Codes: I10 - Essential (primary) hypertension Lelo Price MD Mar 29, 2017 17:19
[2017-03-29 20:00] VITALS: BP 150/77; PULSE 80; RESP 17; TEMP 98; O2SAT 95
[2017-03-30] VITALS: BP 138/72; PULSE 77; RESP 17; TEMP 97.6; O2SAT 96
[2017-03-30] MEDS: INSULIN ASPART SUPPLEMENTAL SCALE SQ SCH ×4 (07:59→22:27)
[2017-03-30 08:00] VITALS: BP 152/80; PULSE 80; RESP 16; TEMP 96.5; O2SAT 93
[2017-03-30] MEDS: DRONABINOL 5 MG CAP PO SCH ×2 (09:45→16:00)
[2017-03-30] MEDS: levETIRAcetam 500 MG TAB PO SCH ×2 (09:45→20:41)
[2017-03-30] MEDS: ATORVASTATIN 80 MG TAB PO SCH (09:45)
[2017-03-30] MEDS: METOPROLOL TARTRATE 25 MG TAB PO SCH ×2 (09:45→20:42)
[2017-03-30] MEDS: CHLOROTHIAZIDE 500 MG PO SCH (09:45)
[2017-03-30] MEDS: NIFEdipine 60 MG SUSTAINED RELEASE TAB PO SCH (09:46)
[2017-03-30] MEDS: LACTOBACILLUS ACIDOPHILUS TAB PO SCH ×3 (09:46→18:00)
[2017-03-30] MEDS: SODIUM CHLORIDE 0.9% FLUSH 10 ML FLUSH IV FLUSH SCH ×2 (09:46→20:43)
[2017-03-30] MEDS: FLUoxetine HCL 10 MG CAP PO SCH (09:46)
[2017-03-30] MEDS: MULTIVITAMIN TAB PO SCH (09:46)
[2017-03-30] MEDS: CHOLECALCIFEROL (VIT D3) 5000 UNIT CAP PO SCH (09:49)
[2017-03-30 12:00] VITALS: BP 171/87; PULSE 84; RESP 19; TEMP 97.9; O2SAT 96
[2017-03-30] MEDS: LOSARTAN 50 MG TAB PO SCH (13:07)
--- NOTE | 2017-03-30 13:47 | HHI.PR ---
Subjective Remarks Sleepy, appears in nad. She is tolerating food no nausea or vomiting. No diarrhea or constipation . Says she is participating in PT. No fever or chills. Says had 4 soft BM yesterday Objective Vitals Vital Signs Date Time Temp Pulse Resp B/P (MAP) Pulse Ox O2 Delivery O2 Flow Rate FiO2 03/30/17 08:00 96.5 80 16 152/80 (104) 93 03/30/17 00:00 97.6 77 17 138/72 (94) 96 03/29/17 20:00 98.0 80 17 150/77 (101) 95 03/29/17 16:00 97.4 92 17 172/102 (125) 97 I/O 03/29/17 03/29/17 03/29/17 03/30/17 03/30/17 03/30/17 07:00 15:00 23:00 07:00 15:00 23:00 Intake Total 240 ml 480 ml 240 ml Output Total 550 ml Balance 240 ml -70 ml 240 ml Intake Oral 240 ml 480 ml 240 ml Output Urine Total 550 ml # Voids 3 # Bowel Movements 3 3 Result Diagram: 03/29/1752003/29/17520 Objective Remarks GENERAL: Somnolent, appears in nad. SKIN: Warm and dry. HEAD: Atraumatic. Normocephalic. NECK: Trachea midline. No JVD. MUSCULOSKELETAL: Extremities without clubbing, cyanosis. NEUROLOGICAL: Somnolent. PSYCHIATRIC: flat affect. Procedures Left IJ central line 02/25/2017. A/P Problem List: (1) Diastolic CHF, acute ICD Code: I50.31 - Acute diastolic (congestive) heart failure (2) Hypoalbuminemia ICD Code: E88.09 - Other disorders of plasma-protein metabolism, not elsewhere classified (3) DM (diabetes mellitus) type I uncontrolled with renal manifestation ICD Code: E10.29 - Uncontrolled type 1 diabetes mellitus with renal manifestations; E10.65 - Type 1 diabetes mellitus with hyperglycemia Status: Chronic (4) Hypertension ICD Code: I10 - Hypertension Status: Acute (5) Hypernatremia ICD Code: E87.0 - Hyperosmolality and hypernatremia Assessment and Plan 46-year-old female admitted secondary to recurrence of C. difficile and bilateral lower extremity edema. Ms. Lang is a 46 year old female with a history of diabetes mellitus, Stage III CKD who presented to the ED on 02/14/2017 due to bilateral lower ext swelling. She was also found to have C. Diff colitis. Patient was started on PO Vancomycin 125mg QID x 14 days. Nephrology was consulted due to suspected nephrotic syndrome. While patient had proteinuria, it did not rise to the level of nephrotic syndrome. ID recommended colonoscopy for persistent diarrhea. GI was consulted. Patient's diarrhea improved and also she refused endoscopic procedures. Patient needs rehab CM following for DC plan - Recurrent C. Diff colitis - Patient is was on Vancomycin PO 125mg Q6hrs. - No diarrhea or loose stools. - CDIFF negative 03/11/17 - Nausea: Zofran as need. Add phenergan - Elevated BP start metoprolol 12.5 mg bid and add PRN. Monitor BP and adjust meds. - CKD Stage III at baseline. - Proteinuria - Appreciate nephrology input. - Acute kidney injury appears to be resolved. Peak Creatinine 3.18. - Continue Losartan 50mg Qday. - Follow renal indices. 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 - Blood glucose well controlled - around 130-140s. - Hypertension controlled. - Currently on Clonidine 0.1mg Q12hrs, Losartan 50mg Qday. - Continue Nifedipine 60mg Qday.Hold Clonidine in an effort to discontinue it altogether. -Major Depressive Disorder Recurrent seen by Psychiatry specialist at this time no acute evidence of depressive symptoms, Anxiety disorder No attention deficit, no gross cognitive impairment present, at baseline at this time, started on Fluoxetine 20 mg daily for depression brief supportive psychotherapy given. - Decreased appetite add multivit Full code. Lovenox. Discharge Planning Per Engineering Lab Technician Notes, she is been denied at [facility], [facility], [facility], awaiting for [facility] refused the patient CM ff for DC plan Problem Qualifiers (1) DM (diabetes mellitus) type I uncontrolled with renal manifestation: (2) Hypertension: Qualified Codes: I10 - Essential (primary) hypertension Lelo Price MD Mar 30, 2017 13:47
[2017-03-30] MEDS: ENOXAPARIN SODIUM 30 MG/0.3 ML SYRINGE SQ SCH (14:30)
[2017-03-30 16:00] VITALS: BP 164/89; PULSE 86; RESP 18; TEMP 96.7; O2SAT 98
[2017-03-30 20:00] VITALS: BP 155/85; PULSE 82; RESP 19; TEMP 95.6; O2SAT 98
[2017-03-30] MEDS: ONDANSETRON HCL 4 MG/2 ML VIAL IVP PRN (20:38)
[2017-03-30] MEDS: ACETAMINOPHEN/HYDROcodone 325 MG/5 MG TAB PO PRN (20:41)
[2017-03-31] VITALS: BP 130/82; PULSE 77; RESP 18; TEMP 96.8; O2SAT 98
[2017-03-31] MEDS: PROMETHAZINE HCL 25 MG TAB PO PRN ×2 (00:18→07:47)
[2017-03-31] MEDS ORDERED: PROMETHAZINE INJ 25 MG/ML VIAL IM ONE (02:00)
[2017-03-31] MEDS: ONDANSETRON HCL 4 MG/2 ML VIAL IVP PRN (06:32)
[2017-03-31] MEDS: CHLOROTHIAZIDE 500 MG PO SCH (07:48)
[2017-03-31] MEDS: METOPROLOL TARTRATE 25 MG TAB PO SCH ×4 (07:48→23:12)
[2017-03-31] MEDS: MULTIVITAMIN TAB PO SCH (07:48)
[2017-03-31] MEDS: ATORVASTATIN 80 MG TAB PO SCH (07:48)
[2017-03-31] MEDS: FLUoxetine HCL 10 MG CAP PO SCH (07:48)
[2017-03-31] MEDS: levETIRAcetam 500 MG TAB PO SCH ×2 (07:48→21:40)
[2017-03-31] MEDS: CHOLECALCIFEROL (VIT D3) 5000 UNIT CAP PO SCH (07:49)
[2017-03-31] MEDS: LACTOBACILLUS ACIDOPHILUS TAB PO SCH ×3 (07:49→16:50)
[2017-03-31] MEDS: NIFEdipine 60 MG SUSTAINED RELEASE TAB PO SCH (07:49)
[2017-03-31] MEDS: INSULIN ASPART SUPPLEMENTAL SCALE SQ SCH ×4 (07:53→21:00)
[2017-03-31 07:54] VITALS: BP 183/97; PULSE 89; RESP 18; TEMP 96.6; O2SAT 96
[2017-03-31] MEDS: SODIUM CHLORIDE 0.9% FLUSH 10 ML FLUSH IV FLUSH SCH ×2 (07:54→21:43)
[2017-03-31] MEDS: LOSARTAN 50 MG TAB PO SCH (07:55)
--- NOTE | 2017-03-31 08:22 | HHI.PR ---
Subjective Remarks In bed, says she feels tired. No n/v/c. Had 3 loose BMs. Able to eat, however she is not eating much. Denies chest pain or sob. No fever or chills. BP noted in to a higher side. Objective Vitals Vital Signs Date Time Temp Pulse Resp B/P (MAP) Pulse Ox O2 Delivery O2 Flow Rate FiO2 03/31/17 07:54 96.6 89 18 183/97 (125) 96 03/31/17 00:00 96.8 77 18 130/82 (98) 98 03/30/17 20:00 95.6 82 19 155/85 (108) 98 03/30/17 16:00 96.7 86 18 164/89 (114) 98 03/30/17 12:00 97.9 84 19 171/87 (115) 96 I/O 03/30/17 03/30/17 03/30/17 03/31/17 03/31/17 03/31/17 07:00 15:00 23:00 07:00 15:00 23:00 Intake Total 240 ml 300 ml 240 ml Output Total 300 ml Balance 240 ml 0 ml 240 ml Intake Oral 240 ml 300 ml 240 ml Output Urine Total 300 ml # Voids 3 3 # Bowel Movements 3 0 3 Result Diagram: 03/29/17 0521 03/29/17 0521 Imaging Last Impressions Chest X-Ray 02/25/17 0000 Signed Impressions: Service Date/Time: Saturday, February 25, 2017 22:51 - CONCLUSION: 1. Left IJ central venous catheter projects over the central venous system. No pneumothorax. 2. Vascular congestion appears to have improved but there are still patchy areas of infiltrate predominantly in the right upper lung and left perihilar distribution. Genaro Key MD Lower Extremity Ultrasound 02/24/17 0000 Signed Impressions: Service Date/Time: February 11:34 - CONCLUSION: No evidence of deep venous thrombosis within the lower extremities. Villa Calderon MD Objective Remarks GENERAL: Somnolent, appears in nad. SKIN: Warm and dry. HEAD: Atraumatic. Normocephalic. NECK: Trachea midline. No JVD. MUSCULOSKELETAL: Extremities without clubbing, cyanosis. NEUROLOGICAL: Somnolent. PSYCHIATRIC: flat affect. Procedures Left IJ central line 02/25/2017. A/P Problem List: (1) Diastolic CHF, acute ICD Code: I50.31 - Acute diastolic (congestive) heart failure (2) Hypoalbuminemia ICD Code: E88.09 - Other disorders of plasma-protein metabolism, not elsewhere classified (3) DM (diabetes mellitus) type I uncontrolled with renal manifestation ICD Code: E10.29 - Uncontrolled type 1 diabetes mellitus with renal manifestations; E10.65 - Type 1 diabetes mellitus with hyperglycemia Status: Chronic (4) Hypertension ICD Code: I10 - Hypertension Status: Acute (5) Hypernatremia ICD Code: E87.0 - Hyperosmolality and hypernatremia Assessment and Plan 46-year-old female admitted secondary to recurrence of C. difficile and bilateral lower extremity edema. Ms. Lang is a 46 year old female with a history of diabetes mellitus, Stage III CKD who presented to the ED on 02/14/2017 due to bilateral lower ext swelling. She was also found to have C. Diff colitis. Patient was started on PO Vancomycin 125mg QID x 14 days. Nephrology was consulted due to suspected nephrotic syndrome. While patient had proteinuria, it did not rise to the level of nephrotic syndrome. ID recommended colonoscopy for persistent diarrhea. GI was consulted. Patient's diarrhea improved and also she refused endoscopic procedures. Patient needs rehab CM following for DC plan - Recurrent C. Diff colitis - Patient is was on Vancomycin PO 125mg Q6hrs. - No diarrhea or loose stools. - CDIFF negative 03/11/17 - Nausea: Zofran as need. Add phenergan - Hypertension, uncontrolled increase metoprolol to 25 mg bid and add PRN. Monitor BP and adjust meds. Add vasotec IVprn,. Kidney function improving. - CKD Stage III at baseline. - Proteinuria - Appreciate nephrology input. - Acute kidney injury appears to be resolved. Peak Creatinine 3.18. - Continue Losartan 50mg Qday. - Follow renal indices. 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 - Blood glucose well controlled - around 130-140s. - Hypertension controlled. - Currently on Clonidine 0.1mg Q12hrs, Losartan 50mg Qday. - Continue Nifedipine 60mg Qday.Hold Clonidine in an effort to discontinue it altogether. -Major Depressive Disorder Recurrent seen by Psychiatry specialist at this time no acute evidence of depressive symptoms, Anxiety disorder No attention deficit, no gross cognitive impairment present, at baseline at this time, started on Fluoxetine 20 mg daily for depression brief supportive psychotherapy given. - Decreased appetite add multivit Full code. Lovenox. Discharge Planning Per Frame Table Operator Helper Notes, she is been denied at [facility], [facility], awaiting for [facility] refused the patient [facility] for DC plan Problem Qualifiers (1) DM (diabetes mellitus) type I uncontrolled with renal manifestation: (2) Hypertension: Qualified Codes: I10 - Essential (primary) hypertension Lelo Price MD Mar 31, 2017 08:22
[2017-03-31] MEDS: DRONABINOL 5 MG CAP PO SCH ×2 (11:00→15:26)
[2017-03-31 11:13] VITALS: BP 180/83; PULSE 94; RESP 20; TEMP 97.8; O2SAT 99
[2017-03-31] MEDS: ENALAPRILAT 2.5 MG/2 ML VIAL IV PUSH PRN (11:52)
[2017-03-31] MEDS: ACETAMINOPHEN/HYDROcodone 325 MG/5 MG TAB PO PRN ×2 (11:55→16:53)
[2017-03-31] MEDS: ENOXAPARIN SODIUM 30 MG/0.3 ML SYRINGE SQ SCH (14:16)
[2017-03-31 16:00] VITALS: BP 177/94; PULSE 84; RESP 16; TEMP 98.5; O2SAT 98
[2017-03-31] MEDS: cloNIDine HCL 0.1 MG TAB PO PRN ×2 (16:50→23:49)
[2017-03-31] MEDS: METOPROLOL TARTRATE 25 MG TAB PO PRN (16:50)
[2017-04-01 00:16] VITALS: BP 187/82; PULSE 82; RESP 16; TEMP 98.6; O2SAT 97
[2017-04-01 03:59] VITALS: BP 180/96; PULSE 84
[2017-04-01] MEDS: ENALAPRILAT 2.5 MG/2 ML VIAL IV PUSH PRN ×2 (04:04→13:43)
[2017-04-01] MEDS: SODIUM CHLORIDE 0.9% FLUSH 10 ML FLUSH IV FLUSH PRN (04:04)
[2017-04-01] MEDS: INSULIN ASPART SUPPLEMENTAL SCALE SQ SCH ×4 (07:40→21:00)
[2017-04-01] MEDS: METOPROLOL TARTRATE 25 MG TAB PO SCH (07:42)
[2017-04-01] MEDS: FLUoxetine HCL 10 MG CAP PO SCH (07:42)
[2017-04-01] MEDS: CHLOROTHIAZIDE 500 MG PO SCH (07:42)
[2017-04-01] MEDS: NIFEdipine 60 MG SUSTAINED RELEASE TAB PO SCH (07:42)
[2017-04-01] MEDS: LOSARTAN 50 MG TAB PO SCH (07:42)
[2017-04-01] MEDS: ATORVASTATIN 80 MG TAB PO SCH (07:44)
[2017-04-01] MEDS: LACTOBACILLUS ACIDOPHILUS TAB PO SCH ×3 (07:44→16:58)
[2017-04-01] MEDS: levETIRAcetam 500 MG TAB PO SCH ×2 (07:44→23:06)
[2017-04-01] MEDS: MULTIVITAMIN TAB PO SCH (07:44)
[2017-04-01] MEDS: CHOLECALCIFEROL (VIT D3) 5000 UNIT CAP PO SCH (07:45)
[2017-04-01] MEDS: SODIUM CHLORIDE 0.9% FLUSH 10 ML FLUSH IV FLUSH SCH ×2 (07:46→23:16)
[2017-04-01 08:00] VITALS: BP 198/101; PULSE 79; RESP 18; TEMP 97.9; O2SAT 93
--- NOTE | 2017-04-01 09:06 | HHI.PR ---
Subjective Remarks /o back pain, no fever or chills. Had 2x BM loose today. Still with nausea, BP castillo Objective Vitals Vital Signs Date Time Temp Pulse Resp B/P (MAP) Pulse Ox O2 Delivery O2 Flow Rate FiO2 04/01/17 08:00 97.9 79 18 198/101 (133) 93 04/01/17 03:59 84 180/96 (124) 04/01/17 00:16 98.6 82 16 187/82 (117) 97 03/31/17 16:00 98.5 84 16 177/94 (121) 98 03/31/17 11:13 97.8 94 20 180/83 (115) 99 I/O 03/31/17 03/31/17 03/31/17 04/01/17 04/01/17 04/01/17 07:00 15:00 23:00 07:00 15:00 23:00 Intake Total 240 ml 120 ml 360 ml Balance 240 ml 120 ml 360 ml Intake Oral 240 ml 120 ml 360 ml # Voids 3 4 2 # Bowel Movements 3 1 2 Result Diagram: 03/29/17 0521 03/29/17 0521 Imaging Last Impressions Chest X-Ray 02/25/17 0000 Signed Impressions: Service Date/Time: Saturday, February 25, 2017 22:51 - CONCLUSION: 1. Left IJ central venous catheter projects over the central venous system. No pneumothorax. 2. Vascular congestion appears to have improved but there are still patchy areas of infiltrate predominantly in the right upper lung and left perihilar distribution. Genaro Key MD Lower Extremity Ultrasound 02/24/17 0000 Signed Impressions: Service Date/Time: February 11:34 - CONCLUSION: No evidence of deep venous thrombosis within the lower extremities. Villa Calderon MD Objective Remarks GENERAL: Somnolent, appears in nad. SKIN: Warm and dry. HEAD: Atraumatic. Normocephalic. NECK: Trachea midline. No JVD. MUSCULOSKELETAL: Extremities without clubbing, cyanosis. NEUROLOGICAL: Somnolent. PSYCHIATRIC: flat affect. Procedures Left IJ central line 02/25/2017. A/P Problem List: (1) Diastolic CHF, acute ICD Code: I50.31 - Acute diastolic (congestive) heart failure (2) Hypoalbuminemia ICD Code: E88.09 - Other disorders of plasma-protein metabolism, not elsewhere classified (3) DM (diabetes mellitus) type I uncontrolled with renal manifestation ICD Code: E10.29 - Uncontrolled type 1 diabetes mellitus with renal manifestations; E10.65 - Type 1 diabetes mellitus with hyperglycemia Status: Chronic (4) Hypertension ICD Code: I10 - Hypertension Status: Acute (5) Hypernatremia ICD Code: E87.0 - Hyperosmolality and hypernatremia Assessment and Plan 46-year-old female admitted secondary to recurrence of C. difficile and bilateral lower extremity edema. Ms. Lang is a 46 year old female with a history of diabetes mellitus, Stage III CKD who presented to the ED on 02/14/2017 due to bilateral lower ext swelling. She was also found to have C. Diff colitis. Patient was started on PO Vancomycin 125mg QID x 14 days. Nephrology was consulted due to suspected nephrotic syndrome. While patient had proteinuria, it did not rise to the level of nephrotic syndrome. ID recommended colonoscopy for persistent diarrhea. GI was consulted. Patient's diarrhea improved and also she refused endoscopic procedures. Patient needs rehab CM following for DC plan - Recurrent C. Diff colitis - Patient is was on Vancomycin PO 125mg Q6hrs. - No diarrhea or loose stools. - CDIFF negative 03/11/17 - Nausea: Zofran as need. Add phenergan - Hypertension, uncontrolled increase metoprolol to 25 mg bid and add PRN. Monitor BP and adjust meds. Add vasotec IVprn,. Kidney function improving. - CKD Stage III at baseline. - Proteinuria - Appreciate nephrology input. - Acute kidney injury appears to be resolved. Peak Creatinine 3.18. - Continue Losartan 50mg Qday. - Follow renal indices. 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 - Blood glucose well controlled - around 130-140s. - Hypertension controlled. - Currently on Clonidine 0.1mg Q12hrs, Losartan 50mg Qday. - Continue Nifedipine 60mg Qday.Hold Clonidine in an effort to discontinue it altogether. -Major Depressive Disorder Recurrent seen by Psychiatry specialist at this time no acute evidence of depressive symptoms, Anxiety disorder No attention deficit, no gross cognitive impairment present, at baseline at this time, started on Fluoxetine 20 mg daily for depression brief supportive psychotherapy given. Back pain give morphine IV 2 mg x1 time. she si on norco. her BP is also elevated patient says she has pain - Decreased appetite add multivit Full code. Lovenox. Discharge Planning Per Lay Out Inspector Notes, she is been denied at [facility], [facility], awaiting for [facility] refused the patient [facility] for DC plan Problem Qualifiers (1) DM (diabetes mellitus) type I uncontrolled with renal manifestation: (2) Hypertension: Qualified Codes: I10 - Essential (primary) hypertension Lelo Price MD Apr 01, 2017 09:06
[2017-04-01] MEDS ORDERED: LISINOPRIL 5 MG TAB PO ONE (09:30)
[2017-04-01] MEDS: DRONABINOL 5 MG CAP PO SCH ×2 (11:00→16:00)
[2017-04-01 11:58] VITALS: BP 198/98; PULSE 82; RESP 20; TEMP 98.6; O2SAT 96
[2017-04-01] MEDS: ACETAMINOPHEN/HYDROcodone 325 MG/5 MG TAB PO PRN (12:18)
[2017-04-01] MEDS: ONDANSETRON HCL 4 MG/2 ML VIAL IVP PRN (13:43)
[2017-04-01] MEDS: METOPROLOL TARTRATE 25 MG TAB PO PRN (13:43)
[2017-04-01] MEDS: cloNIDine HCL 0.1 MG TAB PO PRN (13:43)
[2017-04-01] MEDS: ENOXAPARIN SODIUM 30 MG/0.3 ML SYRINGE SQ SCH (13:44)
[2017-04-01] MEDS ORDERED: MORPHINE SULFATE 2 MG/ML INJ IV PUSH ONE (15:00)
[2017-04-01 16:00] VITALS: BP 98/51; PULSE 77; RESP 18; TEMP 96.6; O2SAT 95
[2017-04-01] MEDS ORDERED: hydrALAZINE HCL 10 MG TAB PO ONE (16:15)
[2017-04-01 20:04] LABS: BICARBONATE 29.6 MEQ/L (21.0-32.0)
[2017-04-01 20:28] VITALS: BP 115/64; PULSE 80; RESP 16; TEMP 99; O2SAT 92
[2017-04-01] MEDS: METOPROLOL TARTRATE 50 MG TAB PO SCH (21:00)
[2017-04-02 00:10] VITALS: BP 127/70; PULSE 72; RESP 16; TEMP 97.1; O2SAT 92
[2017-04-02 06:19] LABS: AUTOMATED NEUTROPHIL # 4.5 TH/MM3 (1.8-7.7); BASOPHIL # 0.1 TH/MM3 (0-0.2); EOSINOPHIL # 0.1 TH/MM3 (0-0.4); EOSINOPHIL % 1.8 % (0.0-4.0); HEMATOCRIT 29.7 % (35.0-46.0); HEMO FLAGS DIFF FINAL; LYMPH % 19.1 % (9.0-44.0); LYMPHOCYTE # 1.2 TH/MM3 (1.0-4.8); MEAN CELL VOLUME 88.4 FL (80.0-100.0); MEAN CORPUSCULAR HEMOGLOBIN 29.4 PG (27.0-34.0); MEAN CORPUSCULAR HGB CONC 33.3 % (32.0-36.0); MONO % 7.6 % (0.0-8.0); NEUT % 70.5 % (16.0-70.0); PLATELET COUNT 138 TH/MM3 (150-450); RED BLOOD COUNT 3.36 MIL/MM3 (4.00-5.30); RED CELL DISTRIBUTION WIDTH 15.1 % (11.6-17.2); WHITE BLOOD COUNT 6.4 TH/MM3 (4.0-11.0)
[2017-04-02 07:02] LABS: BICARBONATE 33.4 MEQ/L (21.0-32.0)
[2017-04-02 07:10] LABS: POTASSIUM 2.8 MEQ/L (3.5-5.1)
[2017-04-02 08:00] VITALS: BP 124/70; PULSE 76; RESP 16; TEMP 97.9; O2SAT 92
[2017-04-02] MEDS: INSULIN ASPART SUPPLEMENTAL SCALE SQ SCH ×4 (08:00→21:11)
[2017-04-02] MEDS: CHOLECALCIFEROL (VIT D3) 5000 UNIT CAP PO SCH (09:49)
[2017-04-02] MEDS: LISINOPRIL 5 MG TAB PO SCH (09:49)
[2017-04-02] MEDS: levETIRAcetam 500 MG TAB PO SCH ×2 (09:49→21:11)
[2017-04-02] MEDS: MAGNESIUM OXIDE 400 MG TAB PO SCH (09:49)
[2017-04-02] MEDS: CHLOROTHIAZIDE 500 MG PO SCH (09:49)
[2017-04-02] MEDS: LACTOBACILLUS ACIDOPHILUS TAB PO SCH ×3 (09:49→18:31)
[2017-04-02] MEDS: LOSARTAN 50 MG TAB PO SCH (09:50)
[2017-04-02] MEDS: ATORVASTATIN 80 MG TAB PO SCH (09:50)
[2017-04-02] MEDS: NIFEdipine 60 MG SUSTAINED RELEASE TAB PO SCH (09:50)
[2017-04-02] MEDS: FLUoxetine HCL 10 MG CAP PO SCH (09:50)
[2017-04-02] MEDS: METOPROLOL TARTRATE 50 MG TAB PO SCH ×2 (09:50→21:11)
[2017-04-02] MEDS: MULTIVITAMIN TAB PO SCH (09:50)
[2017-04-02] MEDS: SODIUM CHLORIDE 0.9% FLUSH 10 ML FLUSH IV FLUSH SCH ×2 (09:54→21:12)
[2017-04-02] MEDS: POTASSIUM CHLOR 40 MEQ PREMIX 100 ML IV SCH ×2 (11:12→15:23)
[2017-04-02] MEDS: DRONABINOL 5 MG CAP PO SCH ×2 (11:18→16:52)
[2017-04-02 12:00] VITALS: BP 170/91; PULSE 78; RESP 16; TEMP 97.9; O2SAT 93
--- NOTE | 2017-04-02 12:06 | HHI.PR ---
Subjective Remarks ow K replaced by IV as patient says she is nauseated. She did not vomit. Has decreased appetite. No diarrhea since yesterday. No fever or chills. Feels tired ,. Has back pain. Objective Vitals Vital Signs Date Time Temp Pulse Resp B/P (MAP) Pulse Ox O2 Delivery O2 Flow Rate FiO2 04/02/17 08:00 97.9 76 16 124/70 (88) 92 04/02/17 00:10 97.1 72 16 127/70 (89) 92 04/01/17 20:28 99.0 80 16 115/64 (81) 92 04/01/17 16:00 96.6 77 18 98/51 (67) 95 I/O 04/01/17 04/01/17 04/01/17 04/02/17 04/02/17 04/02/17 07:00 15:00 23:00 07:00 15:00 23:00 Intake Total 360 ml 480 ml 360 ml Balance 360 ml 480 ml 360 ml Intake Oral 360 ml 480 ml 360 ml # Voids 2 4 2 # Bowel Movements 2 0 0 Result Diagram: 04/02/17 0605 04/02/17 0605 Imaging Last Impressions Chest X-Ray 02/25/17 0000 Signed Impressions: Service Date/Time: Saturday, February 25, 2017 22:51 - CONCLUSION: 1. Left IJ central venous catheter projects over the central venous system. No pneumothorax. 2. Vascular congestion appears to have improved but there are still patchy areas of infiltrate predominantly in the right upper lung and left perihilar distribution. Genaro Key MD Lower Extremity Ultrasound 02/24/17 0000 Signed Impressions: Service Date/Time: February 11:34 - CONCLUSION: No evidence of deep venous thrombosis within the lower extremities. Villa Calderon MD Objective Remarks GENERAL: Somnolent, appears in nad. SKIN: Warm and dry. HEAD: Atraumatic. Normocephalic. NECK: Trachea midline. No JVD. MUSCULOSKELETAL: Extremities without clubbing, cyanosis. NEUROLOGICAL: Somnolent. PSYCHIATRIC: flat affect. Procedures Left IJ central line 02/25/2017. A/P Problem List: (1) Diastolic CHF, acute ICD Code: I50.31 - Acute diastolic (congestive) heart failure (2) Hypoalbuminemia ICD Code: E88.09 - Other disorders of plasma-protein metabolism, not elsewhere classified (3) DM (diabetes mellitus) type I uncontrolled with renal manifestation ICD Code: E10.29 - Uncontrolled type 1 diabetes mellitus with renal manifestations; E10.65 - Type 1 diabetes mellitus with hyperglycemia Status: Chronic (4) Hypertension ICD Code: I10 - Hypertension Status: Acute (5) Hypernatremia ICD Code: E87.0 - Hyperosmolality and hypernatremia Assessment and Plan 46-year-old female admitted secondary to recurrence of C. difficile and bilateral lower extremity edema. Ms. Lang is a 46 year old female with a history of diabetes mellitus, Stage III CKD who presented to the ED on 02/14/2017 due to bilateral lower ext swelling. She was also found to have C. Diff colitis. Patient was started on PO Vancomycin 125mg QID x 14 days. Nephrology was consulted due to suspected nephrotic syndrome. While patient had proteinuria, it did not rise to the level of nephrotic syndrome. ID recommended colonoscopy for persistent diarrhea. GI was consulted. Patient's diarrhea improved and also she refused endoscopic procedures. Patient needs rehab CM following for DC plan Recurrent C. Diff colitis - Patient is was on Vancomycin PO 125mg Q6hrs. - No diarrhea or loose stools. - CDIFF negative 03/11/17 Nausea: Zofran as need. Add phenergan. Hypertension, uncontrolled increase metoprolol to 25 mg bid and add PRN. Monitor BP and adjust meds. Add vasotec IVprn,. Kidney function improving. CKD Stage III at baseline. Proteinuria - Appreciate nephrology input. - Acute kidney injury appears to be resolved. Peak Creatinine 3.18. - Continue Losartan 50mg Qday. - Follow renal indices. 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 - Blood glucose well controlled - around 130-140s. Hypertension controlled. - Currently on Clonidine 0.1mg Q12hrs, Losartan 50mg Qday. - Continue Nifedipine 60mg Qday.Hold Clonidine in an effort to discontinue it altogether. Major Depressive Disorder Recurrent seen by Psychiatry specialist at this time no acute evidence of depressive symptoms, Anxiety disorder No attention deficit, no gross cognitive impairment present, at baseline at this time, started on Fluoxetine 20 mg daily for depression brief supportive psychotherapy given. Back pain give morphine IV 2 mg x1 time. she si on norco. her BP is also elevated patient says she has pain - Decreased appetite add multivit, check Hypokalemia K at 2.8. Replaced by IV as patient with nausea. Monitor and replace as need. Check mag and replace as need. Encouraged PO intake. Severe protein sam malnutrition low albumin, prealbumin of 11, weak hand baker second, physical deconditioning, multiple comorbidities including DM, HTN, HLD, CKD3. 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 Add ensure, ecclesiastical worker consult. Add megace. Also consult neuropsych for eval as patien tis not eating and not participating in PT much Full code. Lovenox. Discharge Planning Per General Science Teacher Notes, she is been denied at [facility], [facility], awaiting for [facility] refused the patient CM ff for DC plan Patient with severe protein sam malnutrition low albumin, prealbumin of 11, weak hand baker second, physical deconditioning, multiple comorbidities including DM, HTN, HLD, CKD3. Patient will likely need SNF placement.halfway. Problem Qualifiers (1) DM (diabetes mellitus) type I uncontrolled with renal manifestation: (2) Hypertension: Qualified Codes: I10 - Essential (primary) hypertension Lelo Price MD Apr 02, 2017 12:06
[2017-04-02] MEDS: MEGESTROL ACETATE SUSP 400 MG/10 ML CUP PO SCH (12:52)
[2017-04-02] MEDS: hydrALAZINE HCL 10 MG TAB PO PRN (12:52)
[2017-04-02] MEDS: ENOXAPARIN SODIUM 30 MG/0.3 ML SYRINGE SQ SCH (15:23)
[2017-04-02 16:00] VITALS: BP 164/84; PULSE 79; RESP 16; TEMP 99.1; O2SAT 97
[2017-04-02 21:43] VITALS: BP 118/58; PULSE 81; RESP 20; TEMP 98; O2SAT 95
[2017-04-03 00:58] VITALS: BP 106/57; PULSE 80; RESP 20; TEMP 98.5; O2SAT 95
[2017-04-03 05:39] LABS: BASOPHIL % 0.7 % (0.0-2.0); EOSINOPHIL # 0.2 TH/MM3 (0-0.4); EOSINOPHIL % 3.3 % (0.0-4.0); HEMATOCRIT 29.4 % (35.0-46.0); HEMO FLAGS DIFF FINAL; LYMPH % 25.3 % (9.0-44.0); LYMPHOCYTE # 1.6 TH/MM3 (1.0-4.8); MEAN CELL VOLUME 87.8 FL (80.0-100.0); MEAN CORPUSCULAR HEMOGLOBIN 28.9 PG (27.0-34.0); MEAN CORPUSCULAR HGB CONC 32.9 % (32.0-36.0); MONO % 8.2 % (0.0-8.0); NEUT % 62.5 % (16.0-70.0); PLATELET COUNT 137 TH/MM3 (150-450); RED BLOOD COUNT 3.35 MIL/MM3 (4.00-5.30); RED CELL DISTRIBUTION WIDTH 15.1 % (11.6-17.2); WHITE BLOOD COUNT 6.4 TH/MM3 (4.0-11.0)
[2017-04-03 05:47] LABS: BICARBONATE 36.6 MEQ/L (21.0-32.0); MAGNESIUM 1.6 MG/DL (1.5-2.5); POTASSIUM 3.3 MEQ/L (3.5-5.1)
[2017-04-03] MEDS: MULTIVITAMIN TAB PO SCH (09:05)
[2017-04-03] MEDS: MEGESTROL ACETATE SUSP 400 MG/10 ML CUP PO SCH (09:05)
[2017-04-03] MEDS: INSULIN ASPART SUPPLEMENTAL SCALE SQ SCH ×4 (09:05→22:14)
[2017-04-03] MEDS: LISINOPRIL 5 MG TAB PO SCH (09:05)
[2017-04-03] MEDS: NIFEdipine 60 MG SUSTAINED RELEASE TAB PO SCH (09:05)
[2017-04-03] MEDS: FLUoxetine HCL 10 MG CAP PO SCH (09:05)
[2017-04-03] MEDS: LACTOBACILLUS ACIDOPHILUS TAB PO SCH ×3 (09:05→17:20)
[2017-04-03] MEDS: METOPROLOL TARTRATE 50 MG TAB PO SCH ×2 (09:05→22:19)
[2017-04-03] MEDS: MAGNESIUM OXIDE 400 MG TAB PO SCH (09:06)
[2017-04-03] MEDS: levETIRAcetam 500 MG TAB PO SCH ×2 (09:06→22:19)
[2017-04-03] MEDS: ATORVASTATIN 80 MG TAB PO SCH (09:06)
[2017-04-03] MEDS: CHLOROTHIAZIDE 500 MG PO SCH (09:06)
[2017-04-03] MEDS: LOSARTAN 50 MG TAB PO SCH (09:06)
[2017-04-03] MEDS: CHOLECALCIFEROL (VIT D3) 5000 UNIT CAP PO SCH (09:07)
[2017-04-03] MEDS: SODIUM CHLORIDE 0.9% FLUSH 10 ML FLUSH IV FLUSH SCH ×2 (09:07→22:20)
--- NOTE | 2017-04-03 09:20 | HHI.PR ---
Subjective Remarks Kidney function worsening. Start gentle hydration, encourage PO intake. Patient says she is eating better today however she did not eat breakfast yet... No vomiting. Some nausea. Had 2 loose BMs. Objective Vitals Vital Signs Date Time Temp Pulse Resp B/P (MAP) Pulse Ox O2 Delivery O2 Flow Rate FiO2 04/03/17 00:58 98.5 80 20 106/57 (73) 95 04/02/17 21:43 98.0 81 20 118/58 (78) 95 04/02/17 16:00 99.1 79 16 164/84 (110) 97 04/02/17 12:00 97.9 78 16 170/91 (117) 93 I/O 04/02/17 04/02/17 04/02/17 04/03/17 04/03/17 04/03/17 07:00 15:00 23:00 07:00 15:00 23:00 Intake Total 360 ml 240 ml 200 ml Output Total 0 ml Balance 360 ml 240 ml 200 ml 0 ml Intake Oral 360 ml 240 ml IV Total 200 ml Stool Total 0 ml # Voids 2 1 1 2 # Bowel Movements 0 0 2 Result Diagram: 04/03/17 0500 04/03/17 0500 Imaging Last Impressions Chest X-Ray 02/25/17 0000 Signed Impressions: Service Date/Time: Saturday, February 25, 2017 22:51 - CONCLUSION: 1. Left IJ central venous catheter projects over the central venous system. No pneumothorax. 2. Vascular congestion appears to have improved but there are still patchy areas of infiltrate predominantly in the right upper lung and left perihilar distribution. Genaro Key MD Lower Extremity Ultrasound 02/24/17 0000 Signed Impressions: Service Date/Time: February 11:34 - CONCLUSION: No evidence of deep venous thrombosis within the lower extremities. Villa Calderon MD Objective Remarks GENERAL: Somnolent, appears in nad. SKIN: Warm and dry. HEAD: Atraumatic. Normocephalic. NECK: Trachea midline. No JVD. MUSCULOSKELETAL: Extremities without clubbing, cyanosis. NEUROLOGICAL: Somnolent. PSYCHIATRIC: flat affect. Procedures Left IJ central line 02/25/2017. A/P Problem List: (1) Diastolic CHF, acute ICD Code: I50.31 - Acute diastolic (congestive) heart failure (2) Hypoalbuminemia ICD Code: E88.09 - Other disorders of plasma-protein metabolism, not elsewhere classified (3) DM (diabetes mellitus) type I uncontrolled with renal manifestation ICD Code: E10.29 - Uncontrolled type 1 diabetes mellitus with renal manifestations; E10.65 - Type 1 diabetes mellitus with hyperglycemia Status: Chronic (4) Hypertension ICD Code: I10 - Hypertension Status: Acute (5) Hypernatremia ICD Code: E87.0 - Hyperosmolality and hypernatremia Assessment and Plan 46-year-old female admitted secondary to recurrence of C. difficile and bilateral lower extremity edema. Ms. Lang is a 46 year old female with a history of diabetes mellitus, Stage III CKD who presented to the ED on 02/14/2017 due to bilateral lower ext swelling. She was also found to have C. Diff colitis. Patient was started on PO Vancomycin 125mg QID x 14 days. Nephrology was consulted due to suspected nephrotic syndrome. While patient had proteinuria, it did not rise to the level of nephrotic syndrome. ID recommended colonoscopy for persistent diarrhea. GI was consulted. Patient's diarrhea improved and also she refused endoscopic procedures. Patient needs rehab CM following for DC plan Recurrent C. Diff colitis - Patient is was on Vancomycin PO 125mg Q6hrs. - No diarrhea or loose stools. - CDIFF negative 03/11/17 Nausea: Zofran as need. Add phenergan. Hypertension, uncontrolled increase metoprolol to 25 mg bid and add PRN. Monitor BP and adjust meds. CKD Stage III at baseline Proteinuria - Appreciate nephrology input. - Acute kidney injury appears to be resolved. Peak Creatinine 3.18. - Continue Losartan 50mg Qday. - Follow renal indices. 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 - Blood glucose well controlled - around 130-140s. Hypertension controlled. - Currently on Clonidine 0.1mg Q12hrs, Losartan 50mg Qday. - Continue Nifedipine 60mg Qday.Hold Clonidine in an effort to discontinue it altogether. Major Depressive Disorder Recurrent seen by Psychiatry specialist at this time no acute evidence of depressive symptoms, Anxiety disorder No attention deficit, no gross cognitive impairment present, at baseline at this time, started on Fluoxetine 20 mg daily for depression brief supportive psychotherapy given. Back pain give morphine IV 2 mg x1 time. she si on norco. her BP is also elevated patient says she has pain - Decreased appetite add multivit, check Hypokalemia. Replaced by IV as patient with nausea. Monitor and replace as need. Check mag and replace as need. Encouraged PO intake. 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 Patient will likely need SNF placement.senior care. 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 Add megace. Also consult neuropsych for eval as patien tis not eating and not participating in PT much Full code. Lovenox. 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 Problem Qualifiers (1) DM (diabetes mellitus) type I uncontrolled with renal manifestation: (2) Hypertension: Qualified Codes: I10 - Essential (primary) hypertension Lelo Price MD Apr 03, 2017 09:20
[2017-04-03] MEDS ORDERED: POTASSIUM CHLOR 40 MEQ PREMIX 100 ML IV-CENTRAL ONE (09:30)
[2017-04-03] MEDS: SODIUM CHLOR 0.45% 1000 ML INJ 1,000 ML IV SCH ×2 (10:13→22:19)
[2017-04-03 12:00] VITALS: BP 159/91; PULSE 80; RESP 18; TEMP 97.5; O2SAT 94
[2017-04-03] MEDS: hydrALAZINE HCL 10 MG TAB PO PRN (12:00)
[2017-04-03] MEDS: DRONABINOL 5 MG CAP PO SCH ×2 (12:00→17:20)
[2017-04-03 16:00] VITALS: BP 136/81; PULSE 77; RESP 17; TEMP 97.7; O2SAT 91
[2017-04-03] MEDS: ENOXAPARIN SODIUM 30 MG/0.3 ML SYRINGE SQ SCH (17:20)
[2017-04-03 21:50] VITALS: BP 114/65; PULSE 77; RESP 18; TEMP 98; O2SAT 97
[2017-04-04 00:40] VITALS: BP 114/63; PULSE 79; RESP 18; TEMP 98.7; O2SAT 93
[2017-04-04 04:44] LABS: BASOPHIL % 0.6 % (0.0-2.0); EOSINOPHIL # 0.2 TH/MM3 (0-0.4); HEMATOCRIT 31.1 % (35.0-46.0); HEMO FLAGS DIFF FINAL; LYMPH % 26.5 % (9.0-44.0); LYMPHOCYTE # 2.1 TH/MM3 (1.0-4.8); MEAN CELL VOLUME 87.3 FL (80.0-100.0); MEAN CORPUSCULAR HEMOGLOBIN 28.7 PG (27.0-34.0); MEAN CORPUSCULAR HGB CONC 32.9 % (32.0-36.0); MONO % 6.9 % (0.0-8.0); PLATELET COUNT 156 TH/MM3 (150-450); RED BLOOD COUNT 3.56 MIL/MM3 (4.00-5.30); RED CELL DISTRIBUTION WIDTH 15.3 % (11.6-17.2); WHITE BLOOD COUNT 7.9 TH/MM3 (4.0-11.0)
[2017-04-04 04:54] LABS: BICARBONATE 31.9 MEQ/L (21.0-32.0)
[2017-04-04] MEDS: SODIUM CHLOR 0.45% 1000 ML INJ 1,000 ML IV SCH (05:30)
[2017-04-04 08:00] VITALS: BP 142/81; PULSE 90; RESP 19; TEMP 99.9; O2SAT 94
[2017-04-04] MEDS: INSULIN ASPART SUPPLEMENTAL SCALE SQ SCH ×4 (08:00→21:00)
[2017-04-04] MEDS: SODIUM CHLORIDE 0.9% FLUSH 10 ML FLUSH IV FLUSH SCH ×2 (09:00→21:08)
[2017-04-04] MEDS: MEGESTROL ACETATE SUSP 400 MG/10 ML CUP PO SCH (09:30)
[2017-04-04] MEDS: MULTIVITAMIN TAB PO SCH (09:31)
[2017-04-04] MEDS: CHOLECALCIFEROL (VIT D3) 5000 UNIT CAP PO SCH (09:31)
[2017-04-04] MEDS: NIFEdipine 60 MG SUSTAINED RELEASE TAB PO SCH (09:31)
[2017-04-04] MEDS: ATORVASTATIN 80 MG TAB PO SCH (09:31)
[2017-04-04] MEDS: METOPROLOL TARTRATE 50 MG TAB PO SCH ×2 (09:31→21:07)
[2017-04-04] MEDS: levETIRAcetam 500 MG TAB PO SCH ×2 (09:31→21:07)
[2017-04-04] MEDS: LACTOBACILLUS ACIDOPHILUS TAB PO SCH ×3 (09:31→17:47)
[2017-04-04] MEDS: FLUoxetine HCL 10 MG CAP PO SCH (09:31)
[2017-04-04] MEDS: MAGNESIUM OXIDE 400 MG TAB PO SCH (09:31)
[2017-04-04] MEDS: LOSARTAN 50 MG TAB PO SCH (09:31)
[2017-04-04] MEDS: CHLOROTHIAZIDE 500 MG PO SCH (09:31)
--- NOTE | 2017-04-04 11:01 | PD.HHIRCNE ---
Patient History Record/History Review Reason for Referral: The patient is a 46-year-old woman who is referred to me for noncompliance with treatment recommendations. As background, this patient lives with her 16-year-old son, , unemployed, without no previous psychiatric history, no previous psychiatric hospitalizations, no previous suicide attempts, she is on Prozac 20 mg, with a past medical history significant for diabetes mellitus (poorly controlled, prior multiple admission for DKA), hypertension, asthma, CKD stage III, strokes 2013 (with residual deficit right upper extremity), seizure, and lupus, multiple medical hospitalizations, who presented with leg swelling. recurrent Diarrhea. On examination, the patient was calm, cooperative, and pleasant. She is alert and oriented x 4. She reports feeling normal, denies distress, denies anxiety, denies pain, she denies depressive symptoms, she denies anhedonia, denies hopelessness, denies helplessness, denies suicidal and homicidal ideation, denies visual and auditory hallucinations. Patient reports good sleep, good appetite, she says that she is want to go home. She says that she is tired to be in the hospital and she wanted to be home with her son Neuropsych Precautions: To be determined. Past Surgical/Medical History Past Surgery: Yes (LEFT FOOT WOUND MECHANICAL DEBRIDEMENT) Major surgery in last 100 days: Unknown Hx Anesthesia Reactions: No Hx Orthopedic Surgery: No Hx Cardiac Surgery: No Hx Chest Surgery: No Hx Abdominal Surgery: Yes Hx Genitourinary Surgery: No Hx Gynecologic Surgery: Yes ( ) Hx Endocrine Surgery: No Hx Eye Surgery: No Hx Ear Surgery: No Hx Oral Surgery: No History of Transplant: No Hx Other Surgery: C section, hysterectomy Hx of Neuro Prob: Yes Hx Seizures: Yes Cephalgia (Headaches): No Hx Migraines: No Hx Head Injury: No Hx Falls: Yes Hx Cerebrovascular Accident: Yes (2013) Hx Dizziness: No Hx Numbness: No Hx of Musculoskeletal Pro: Yes Hx Arthritis: Yes Hx Osteoporosis: No Hx Neck Problems: No Hx Back Problem: No Hx of Cardiovascular Prob: Yes (HTN) Hypertension (High Blood Press: Yes Hx Clotting Problems: No Hx Chest Pain: No Hx Lightheadedness: No Hx Congestive Heart Failure: No Hx of Respiratory Problem: Yes Hx Asthma: Yes Hx Chronic Obstructive Pulmona: No Hx Dyspnea: No Hx Snoring: No Hx Emphysema: No Hx Sleep Apnea: No Hx of GI Problems: Yes Hx Heartburn: No Hx Gastroesophageal Reflux: No Hx Hiatal Hernia: No Hx Ulcer: No Hx Liver Disease: No Hx Gallbladder Disease: Yes Hx of Problems: Yes Hx Renal Disease: No Hx Renal Failure: Yes (Stage II) Hx Kidney Transplant: No Hx Kidney Stones: Yes Hx Nephrectomy: No Hx Infection: Yes Hx Pelvic Problems: No Hx Genital Problems: No ?: Unknown Hx of Immuno Disor: Yes Hx Autoimmune Disease: Yes (LUPUS) Hx of Endocrine Problems: Yes Hx Thyroid Disease: No Hx Diabetes: Yes (TYPE 2; TAKES LANTUS & NOVOLOG) Does Patient Currently Take Gl: No Diabetic Diagnosed 3 Months Or: No Hx of Eye Probl: No Hx of Hearing or Ear Problems: No Hx Dental Problems: No Hx Psychiatric Problems: No Hx Anxiety: No Hx Depression: No Hx Blood Dyscrasias: Yes Hx Sickle Cell Disease: No Hx Hemophilia: No Hx of Heparin Induced Thr: No Hx of MDRO: Yes Hx of MRSA: Yes Hx of VRE: No Hx of CDIFF: No Hx of Tuberculosis: No Hx Chicken Pox: Yes If No, Have You Been Exposed W: No Hx Measles: No (not sure ) Hx of Body/Medical Devices: No Central Line/Ports (Type): No Hx Joint Replacement: No Insulin Pump: No Hx Arteriovenous Shunt: No Hx Dental Implants: No Hx Eye Prosthesis: No Genitourinary Device: No Genitourinary Ostomy: No Gastrointestinal Ostomy: No Blood Transfusion History Will receive Blood /Blood prod: Yes Hx Blood Transfusions: Yes Hx Blood Transfusion Reaction: No Mental Status Assessment Orientation: oriented to Self, oriented to Place, oriented to Time, oriented to Situation Mental Status: WFL: Thought processing, Language/Interactions, Attention, Learning/Memory, Problem-Solving Observation The patient is alert and oriented to person, place, time and circumstances surrounding the reason for hospitalization. In terms of attention skills, the patient able to remain on task and remember basic and complex instructions. In terms of memory functioning, the patient was able to remember information in the form of carryover across the session. The patient [initiated/was] unable to initiate spontaneous conversation. Speech was characterized by adequate prosody , grammar, articulation, volume and rate. Basic naming skills were intact. Language repetition skills were intact. The patients comprehensions for basic one- and two-stage commands were intact. Basic verbal abstraction and problem- solving skills were intact. The patient appears to posses insight and awareness into their situation and within the limits of this brief evaluation, adequate basic judgment. Adjustment/Coping Assessment Adjustment/Coping: None: Anxiety, Pain, Mild: Depression Affect: Full Range Observation The patients thought content was free from suicidal, homicidal or paranoid ideation, and the patients thought processes were logical and goal-directed. The patients mood was euthymic, and the affect was stable and appropriate. LTG Status: Deferred STG Status: Deferred Team Members: Neuropsychologist Behavior Assessment Agitation: None Treatment Engagement: Average Observation Behaviorally, the patient demonstrated no signs of agitation, impulsivity or disinhibition. There was no remarkable evidence of a formal thought disorder or psychosis. LTG - Status: Deferred STG Status: Deferred Team Members: Neuropsychologist Diagnosis/Discharge Plan Impression 46 year old woman who has been hospitalized for some time for multiple medical issues, reportedly noncompliant with directives. This patient does exhibit cognitive capacity to make decisions of a legal, financial and medical nature at this point. Diagnosis: (1) Major depression, melancholic type Status: Acute Maximizing acute care outcome I will see patient daily to facilitate optimal therapeutic outcome. I have asked our CIR nurse liaisons to review for appropriateness of inpatient rehabilitation. Discharge Planning Anticipated Problems Ongoing areas of concern will include non compliance. Treatment Plan This clinician will continue to follow with you throughout the course of this patients acute care treatment, and I will be available to meet with the patient s family/support system to facilitate their understanding and the ongoing care of their family member. The goals of neuropsychological intervention shall be both educational and supportive to the family/support system as is deemed clinically appropriate. Additionally, I would recommend a referral to Dr. London for ongoing patient and family adjustment issues if they are coming to [place]. Discharge Needs To be determined. Thank you Thank you for the opportunity to assist in this patients care. Dewayne Castañeda, Ph.D., ABPP Board Certified in Clinical Neuropsychology [place] [employer] Professional Psychology [place] Licensed Psychologist #[id number] Dewayne Castañeda PhD Apr 04, 2017 11:01
[2017-04-04] MEDS: DRONABINOL 5 MG CAP PO SCH ×2 (11:35→16:51)
[2017-04-04 12:00] VITALS: BP 143/83; PULSE 83; RESP 20; TEMP 99.2; O2SAT 93
[2017-04-04] MEDS: ENOXAPARIN SODIUM 30 MG/0.3 ML SYRINGE SQ SCH (15:01)
--- NOTE | 2017-04-04 16:43 | HHI.PR ---
Subjective Remarks She reports an episode of diarrhea approximately every other night. No nausea or vomiting. She is tolerating diet. Working well PT. Objective Vital Signs Date Time Temp Pulse Resp B/P (MAP) Pulse Ox O2 Delivery O2 Flow Rate FiO2 04/04/17 12:00 99.2 83 20 143/83 (103) 93 04/04/17 08:00 99.9 90 19 142/81 (101) 94 04/04/17 00:40 98.7 79 18 114/63 (80) 93 04/03/17 21:50 98.0 77 18 114/65 (81) 97 I/O 04/03/17 04/03/17 04/03/17 04/04/17 04/04/17 04/04/17 07:00 15:00 23:00 07:00 15:00 23:00 Intake Total 1580 ml 582 ml Output Total 0 ml 200 ml 1 ml Balance 0 ml 1380 ml 581 ml Intake Oral 480 ml IV Total 1100 ml 582 ml Output Urine Total 200 ml 1 ml Stool Total 0 ml # Voids 2 1 # Bowel Movements 2 0 Result Diagram: 04/04/17 04204/04/17 0420 Procedures None Objective Remarks GENERAL: NAD, A&Ox3 HEAD: Normocephalic. NECK: Supple, trachea midline. No lymphadenopathy. EYES: No scleral icterus. No injection or drainage. CARDIOVASCULAR: Regular rate and rhythm without murmurs, gallops, or rubs. RESPIRATORY: Breath sounds equal bilaterally. No accessory muscle use. GASTROINTESTINAL: Abdomen soft, non-tender, nondistended. MUSCULOSKELETAL: No cyanosis. Bilateral lower extremity swelling. SKIN: Warm and dry. NEURO: No focal neurological deficitis. A/P Problem List: (1) Lupus ICD Code: M32.9 - Systemic lupus erythematosus Status: Chronic (2) Hypertension ICD Code: I10 - Hypertension Status: Acute (3) Insulin dependent diabetes mellitus ICD Code: E11.9 - Insulin dependent diabetes mellitus; Z79.4 - [facility] ( current) use of insulin Status: Acute (4) Diabetic neuropathy ICD Code: E11.40 - Diabetic neuropathy Status: Acute (5) C. difficile diarrhea ICD Code: A04.7 - Enterocolitis due to Clostridium difficile (6) REGAN (acute kidney injury) ICD Code: N17.9 - Acute kidney failure, unspecified Status: Acute Assessment and Plan Assessment and Plan 46-year-old female admitted secondary to recurrence of C. difficile and bilateral lower extremity edema. Continue to work with physical therapy. Placement to senior care facility is difficult to pending. Recurrent C. difficile colitis C. difficile screen if diarrhea occurs again Urinary tract infection Resolved Bilateral lower extremity edema Nephrotic syndrome Protein malnutrition/wasting Improved Diabetes mellitus type 2 Follow blood sugars Insulin sliding scale Diabetic diet History of lupus Autoimmunity Anemia of chronic disease Follow CBC Diastolic CHF Follow clinically Contributory to difficulty with diuresis Continue carvedilol Hypertension No change in baseline blood pressure treatments Follow blood pressures Lower extremity weakness Continue physical therapy DVT prophylaxis Lovenox on hold due to possible bleeding/anemia Discharge planning SNF planned Problem Qualifiers (1) Hypertension: Qualified Codes: I10 - Essential (primary) hypertension Umesh Pandya MD Apr 04, 2017 16:43
[2017-04-04 17:00] VITALS: BP 129/69; PULSE 86; RESP 20; TEMP 99; O2SAT 97
[2017-04-04 20:10] VITALS: BP 176/79; PULSE 87; RESP 16; TEMP 98.7; O2SAT 95
[2017-04-04] MEDS: ONDANSETRON HCL 4 MG/2 ML VIAL IVP PRN (21:07)
[2017-04-04] MEDS: ACETAMINOPHEN/HYDROcodone 325 MG/5 MG TAB PO PRN (21:08)
[2017-04-05] MEDS: ONDANSETRON HCL 4 MG/2 ML VIAL IVP PRN ×3 (06:23→20:14)
[2017-04-05 08:00] VITALS: BP 137/80; PULSE 84; RESP 16; TEMP 98.4; O2SAT 93
--- NOTE | 2017-04-05 08:38 | HHI.PR ---
Neuropsych Emotional Emotional: Intact: Emotional, Anxious/Fearful, Depressed/Sad, Hostile/Resentful , Irritable/Angry/Frustrate, Labile, Constricted/Blunted Behavior Behavior: Intact: Behavior, Coping/Acceptance, Cooperative w/ Treatment, Motivation, Frustration Tolerance/[place], Impulsive/Agitated, Suicidal/Homicidal Risk Cognitive Cognitive: Intact: Cognitive, Attention/Concentration, Confused/Orientation, Insight/Awareness, Judgement/Problem-Solving, Memory Psychosocial Psychosocial: Moderate: Psychosocial, Family/Other Adjustment, Realistic Expectation, Self-Esteem/Confidence Progress Notes/Response to Tx Contents of Sessions: Adjustment Time with Patient: 15 minutes Premorbid psychological status Premorbid Cognitive, Emotional and Behavioral Status: Stable. The patient has two years of college education and a solid work history prior to this injury. The patient has no psychiatric difficulties, as described above. Substance abuse history is unremarkable. Behavioral Reactions of Patient and Family/Support System: Stable. The patients family is experiencing ongoing issues of adjustment given the nature of the illness, and this aspect of recovery will require ongoing monitoring. Emotional/Behavioral Status of Patient and Family/Support System: Stable. Pertinent issues, if appropriate to this patients clinical care, are described in detail above. Maximizing acute care outcome This patient is being followed from a neurobehavioral perspective to facilitate an optimal therapeutic outcome. Anticipated Problems Ongoing areas of concern will include fluctuating motivation relative to medical challenges. Treatment Plan This clinician will continue to follow with you throughout the course of this patients acute treatment, and I will be available to meet with the patients family/support system to facilitate their understanding and the ongoing care of their family member. The goals of neuropsychological intervention shall be both educational and supportive to the family/support system as is deemed clinically appropriate. Impression 46 year old woman who has been hospitalized for some time for multiple medical issues, reportedly noncompliant with directives. This patient does exhibit cognitive capacity to make decisions of a legal, financial and medical nature at this point. Diagnosis: (1) Major depression, melancholic type Status: Acute Progress Note Narrative Ongoing follow-up of patient seen bedside. This is day 50 post admission. The patient is reportedly working well with physical therapy, with physical challenges of nausea/vomiting/diarrhea. She would like to discharge home, but this is an unlikely outcome given her ongoing physical challenges. I provided her psychological support, encouragement and behavioral challenges to facilitate her outcome. This patient exhibits no neurocognitive deficits. I will continue to follow. Hill,Dewayne Rafiq PhD Apr 05, 2017 08:37
[2017-04-05] MEDS: SODIUM CHLORIDE 0.9% FLUSH 10 ML FLUSH IV FLUSH SCH ×2 (09:00→20:14)
[2017-04-05] MEDS: INSULIN ASPART SUPPLEMENTAL SCALE SQ SCH ×4 (09:18→20:27)
[2017-04-05] MEDS: NIFEdipine 60 MG SUSTAINED RELEASE TAB PO SCH (09:19)
[2017-04-05] MEDS: FLUoxetine HCL 10 MG CAP PO SCH (09:19)
[2017-04-05] MEDS: LACTOBACILLUS ACIDOPHILUS TAB PO SCH ×3 (09:19→17:40)
[2017-04-05] MEDS: CHOLECALCIFEROL (VIT D3) 5000 UNIT CAP PO SCH (09:19)
[2017-04-05] MEDS: ATORVASTATIN 80 MG TAB PO SCH (09:19)
[2017-04-05] MEDS: levETIRAcetam 500 MG TAB PO SCH ×2 (09:19→20:13)
[2017-04-05] MEDS: CHLOROTHIAZIDE 500 MG PO SCH (09:19)
[2017-04-05] MEDS: MULTIVITAMIN TAB PO SCH (09:20)
[2017-04-05] MEDS: LOSARTAN 50 MG TAB PO SCH (09:20)
[2017-04-05] MEDS: MAGNESIUM OXIDE 400 MG TAB PO SCH (09:20)
[2017-04-05] MEDS: METOPROLOL TARTRATE 50 MG TAB PO SCH ×2 (09:20→20:13)
[2017-04-05] MEDS: MEGESTROL ACETATE SUSP 400 MG/10 ML CUP PO SCH (09:20)
--- NOTE | 2017-04-05 10:56 | HHI.PR ---
Subjective Remarks No diarrhea since yesterday. Patient has no new complaints. Labs from yesterday shows stability. This patient demonstrates persistent weakness with high risk of falls. She's been feeling with this weakness for months. She has been discharged to home before with failure of ability to care for herself or rehabilitation at home. She has been medically stable for discharge for the past 1.5 months but despite physical therapy here she has made only slight progress. History of lupus and recurrent C. difficile combined with malnutrition (as an outpatient, and with recurrent C. Diff) is making her chronically weak. At this point a long-term care facility would be in her best interest, as she is unable to care for herself independently. Objective Vital Signs Date Time Temp Pulse Resp B/P (MAP) Pulse Ox O2 Delivery O2 Flow Rate FiO2 04/05/17 08:00 98.4 84 16 137/80 (99) 93 04/04/17 22:08 17 04/04/17 20:10 98.7 87 16 176/79 (111) 95 04/04/17 17:00 99.0 86 20 129/69 (89) 97 04/04/17 12:00 99.2 83 20 143/83 (103) 93 I/O 04/04/17 04/04/17 04/04/17 04/05/17 04/05/17 04/05/17 07:00 15:00 23:00 07:00 15:00 23:00 Intake Total 582 ml 360 ml Output Total 1 ml 200 ml 150 ml Balance 581 ml 160 ml -150 ml Intake Oral 360 ml IV Total 582 ml Output Urine Total 1 ml 200 ml 150 ml # Voids 1 Result Diagram: 04/04/17 04204/04/17 0420 Procedures None Objective Remarks GENERAL: NAD, A&Ox3 HEAD: Normocephalic. NECK: Supple, trachea midline. No lymphadenopathy. EYES: No scleral icterus. No injection or drainage. CARDIOVASCULAR: Regular rate and rhythm without murmurs, gallops, or rubs. RESPIRATORY: Breath sounds equal bilaterally. No accessory muscle use. GASTROINTESTINAL: Abdomen soft, non-tender, nondistended. MUSCULOSKELETAL: No cyanosis. Bilateral lower extremity swelling. SKIN: Warm and dry. NEURO: No focal neurological deficitis. A/P Problem List: (1) Lupus ICD Code: M32.9 - Systemic lupus erythematosus Status: Chronic (2) Hypertension ICD Code: I10 - Hypertension Status: Acute (3) Insulin dependent diabetes mellitus ICD Code: E11.9 - Insulin dependent diabetes mellitus; Z79.4 - [facility] ( current) use of insulin Status: Acute (4) Diabetic neuropathy ICD Code: E11.40 - Diabetic neuropathy Status: Acute (5) C. difficile diarrhea ICD Code: A04.7 - Enterocolitis due to Clostridium difficile (6) REGAN (acute kidney injury) ICD Code: N17.9 - Acute kidney failure, unspecified Status: Acute Assessment and Plan Assessment and Plan 46-year-old female admitted secondary to recurrence of C. difficile and bilateral lower extremity edema. Continue to work with physical therapy. Placement of long-term care facility would be best for this patient. Recurrent C. difficile colitis C. difficile screen if diarrhea occurs again Urinary tract infection Resolved Bilateral lower extremity edema Nephrotic syndrome Protein malnutrition/wasting Improved Diabetes mellitus type 2 Follow blood sugars Insulin sliding scale Diabetic diet History of lupus Autoimmunity Anemia of chronic disease Follow CBC Diastolic CHF Follow clinically Contributory to difficulty with diuresis Continue carvedilol Hypertension No change in baseline blood pressure treatments Follow blood pressures Lower extremity weakness Continue physical therapy DVT prophylaxis Lovenox on hold due to possible bleeding/anemia Discharge planning SNF planned Problem Qualifiers (1) Hypertension: Qualified Codes: I10 - Essential (primary) hypertension Umesh Pandya MD Apr 05, 2017 10:56
--- NOTE | 2017-04-05 11:48 | HHI.PR ---
Neuropsych Emotional Emotional: Intact: Emotional, Anxious/Fearful, Depressed/Sad, Hostile/Resentful , Irritable/Angry/Frustrate, Labile, Constricted/Blunted Behavior Behavior: Intact: Behavior, Coping/Acceptance, Frustration Tolerance/[place], Impulsive/Agitated, Suicidal/Homicidal Risk, Mild: Cooperative w/ Treatment, Motivation Cognitive Cognitive: Intact: Cognitive, Attention/Concentration, Confused/Orientation, Insight/Awareness, Judgement/Problem-Solving, Memory Psychosocial Psychosocial: Moderate: Psychosocial, Family/Other Adjustment, Realistic Expectation, Self-Esteem/Confidence Progress Notes/Response to Tx Contents of Sessions: Adjustment Premorbid psychological status Premorbid Cognitive, Emotional and Behavioral Status: Stable. The patient has two years of college education and a solid work history prior to this injury. The patient has no psychiatric difficulties, as described above. Substance abuse history is unremarkable. Behavioral Reactions of Patient and Family/Support System: Stable. The patients family is experiencing ongoing issues of adjustment given the nature of the illness, and this aspect of recovery will require ongoing monitoring. Emotional/Behavioral Status of Patient and Family/Support System: Stable. Pertinent issues, if appropriate to this patients clinical care, are described in detail above. Maximizing acute care outcome This patient is being followed from a neurobehavioral perspective to facilitate an optimal therapeutic outcome. Anticipated Problems Ongoing areas of concern will include fluctuating motivation relative to medical challenges. Treatment Plan This clinician will continue to follow with you throughout the course of this patients acute treatment, and I will be available to meet with the patients family/support system to facilitate their understanding and the ongoing care of their family member. The goals of neuropsychological intervention shall be both educational and supportive to the family/support system as is deemed clinically appropriate. Impression 46 year old woman who has been hospitalized for some time for multiple medical issues, reportedly noncompliant with directives. This patient does exhibit cognitive capacity to make decisions of a legal, financial and medical nature at this point. Diagnosis: (1) Major depression, melancholic type Status: Acute Progress Note Narrative Ongoing follow-up of patient seen bedside. Recent note indicated that she has been working in therapy endeavors. I spoke directly to her about her need to go over and beyond in therapy in order to maximize her chances of returning home , which is her goal. I educated her that each day she lays in bed she loses 5% of her body strength, and thus it is imperative that she maximize her physical therapy endeavors. She voiced complete understanding. She denied depressive or anxious affect, and said that she has been eating meals brought to her from her family. I will continue to follow. Dewayne Castañeda PhD Apr 05, 2017 11:48 am
[2017-04-05 12:00] VITALS: BP 165/102; PULSE 84; RESP 17; TEMP 98.6; O2SAT 95
[2017-04-05] MEDS: DRONABINOL 5 MG CAP PO SCH ×2 (12:08→16:24)
[2017-04-05 12:18] LABS: HEMATOCRIT 30.8 % (35.0-46.0); MEAN CORPUSCULAR HEMOGLOBIN 29.5 PG (27.0-34.0); MEAN CORPUSCULAR HGB CONC 33.5 % (32.0-36.0); PLATELET COUNT 162 TH/MM3 (150-450); RED BLOOD COUNT 3.49 MIL/MM3 (4.00-5.30); RED CELL DISTRIBUTION WIDTH 15.2 % (11.6-17.2); REVIEW FLAG FINAL; WHITE BLOOD COUNT 7.9 TH/MM3 (4.0-11.0)
[2017-04-05] MEDS: ENALAPRILAT 2.5 MG/2 ML VIAL IV PUSH PRN (12:31)
[2017-04-05 12:32] LABS: BICARBONATE 31.3 MEQ/L (21.0-32.0); POTASSIUM 3.8 MEQ/L (3.5-5.1)
[2017-04-05 13:00] VITALS: BP 148/86
[2017-04-05] MEDS: ENOXAPARIN SODIUM 30 MG/0.3 ML SYRINGE SQ SCH (14:55)
[2017-04-05 16:00] VITALS: BP 136/78; PULSE 86; RESP 17; TEMP 97.4; O2SAT 96
[2017-04-05 20:00] VITALS: BP 136/72; PULSE 82; RESP 20; TEMP 98.4; O2SAT 93
[2017-04-06] VITALS: BP 113/66; PULSE 82; RESP 20; TEMP 99; O2SAT 92
[2017-04-06 04:00] VITALS: BP 130/74; PULSE 85; RESP 20; TEMP 98.2; O2SAT 94
[2017-04-06 08:00] VITALS: BP 133/76; PULSE 80; RESP 17; TEMP 97.5; O2SAT 96
[2017-04-06] MEDS: INSULIN ASPART SUPPLEMENTAL SCALE SQ SCH ×4 (08:00→21:00)
--- NOTE | 2017-04-06 08:33 | HHI.PR ---
Neuropsych Emotional Emotional: Moderate: Depressed/Sad Behavior Behavior: Moderate: Cooperative w/ Treatment, Motivation Cognitive Cognitive: Intact: Cognitive, Attention/Concentration, Confused/Orientation, Insight/Awareness, Judgement/Problem-Solving, Memory Psychosocial Psychosocial: Severe: Psychosocial, Family/Other Adjustment, Realistic Expectation, Unable to Asses: Self-Esteem/Confidence Progress Notes/Response to Tx Contents of Sessions: Adjustment Time with Patient: 30 minutes Premorbid psychological status Premorbid Cognitive, Emotional and Behavioral Status: Stable. The patient has two years of college education and a solid work history prior to this injury. The patient has no psychiatric difficulties, as described above. Substance abuse history is unremarkable. Behavioral Reactions of Patient and Family/Support System: Stable. The patients family is experiencing ongoing issues of adjustment given the nature of the illness, and this aspect of recovery will require ongoing monitoring. Emotional/Behavioral Status of Patient and Family/Support System: Stable. Pertinent issues, if appropriate to this patients clinical care, are described in detail above. Maximizing acute care outcome This patient is being followed from a neurobehavioral perspective to facilitate an optimal therapeutic outcome. Anticipated Problems Ongoing areas of concern will include fluctuating motivation relative to medical challenges. Treatment Plan This clinician will continue to follow with you throughout the course of this patients acute treatment, and I will be available to meet with the patients family/support system to facilitate their understanding and the ongoing care of their family member. The goals of neuropsychological intervention shall be both educational and supportive to the family/support system as is deemed clinically appropriate. Impression 46 year old woman who has been hospitalized for some time for multiple medical issues, reportedly noncompliant with directives. This patient does exhibit cognitive capacity to make decisions of a legal, financial and medical nature at this point. Diagnosis: (1) Major depression, melancholic type Status: Acute Progress Note Narrative Ongoing follow-up of patient seen bedside along with PT. Within a cotreatment format, we were able to get the patient to ambulate six feet, and provide her some room exercises to do to facilitate her recovery. This is day 51 for the patient. The patient has multiple medical challenges and is a high risk for falling and as such is not safe to be discharged home. 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 She remains on Prozac 10 qD. I will continue to follow. Dewayne Castañeda PhD Apr 06, 2017 8:33 am
[2017-04-06] MEDS: SODIUM CHLORIDE 0.9% FLUSH 10 ML FLUSH IV FLUSH SCH ×2 (09:00→22:28)
[2017-04-06] MEDS: LACTOBACILLUS ACIDOPHILUS TAB PO SCH ×3 (09:26→18:00)
[2017-04-06] MEDS: CHLOROTHIAZIDE 500 MG PO SCH (09:26)
[2017-04-06] MEDS: MAGNESIUM OXIDE 400 MG TAB PO SCH (09:26)
[2017-04-06] MEDS: METOPROLOL TARTRATE 50 MG TAB PO SCH ×2 (09:26→22:24)
[2017-04-06] MEDS: LOSARTAN 50 MG TAB PO SCH (09:26)
[2017-04-06] MEDS: MEGESTROL ACETATE SUSP 400 MG/10 ML CUP PO SCH (09:27)
[2017-04-06] MEDS: CHOLECALCIFEROL (VIT D3) 5000 UNIT CAP PO SCH (09:27)
[2017-04-06] MEDS: levETIRAcetam 500 MG TAB PO SCH ×2 (09:27→22:24)
[2017-04-06] MEDS: NIFEdipine 60 MG SUSTAINED RELEASE TAB PO SCH (09:27)
[2017-04-06] MEDS: MULTIVITAMIN TAB PO SCH (09:27)
[2017-04-06] MEDS: ATORVASTATIN 80 MG TAB PO SCH (09:27)
[2017-04-06] MEDS: FLUoxetine HCL 10 MG CAP PO SCH (09:27)
[2017-04-06 12:00] VITALS: BP 138/74; PULSE 84; RESP 16; TEMP 97.9; O2SAT 95
[2017-04-06] MEDS: DRONABINOL 5 MG CAP PO SCH ×2 (12:21→16:44)
[2017-04-06] MEDS: ONDANSETRON HCL 4 MG/2 ML VIAL IVP PRN (13:34)
[2017-04-06] MEDS: SODIUM CHLORIDE 0.9% FLUSH 10 ML FLUSH IV FLUSH PRN (13:35)
[2017-04-06] MEDS: ENOXAPARIN SODIUM 30 MG/0.3 ML SYRINGE SQ SCH (15:00)
[2017-04-06 16:00] VITALS: BP 142/81; PULSE 85; RESP 17; TEMP 98.2; O2SAT 95
[2017-04-06] MEDS: SCOPOLAMINE 1.5 MG PATCH T-DERMAL SCH (17:18)
--- NOTE | 2017-04-06 18:41 | HHI.PR ---
Subjective Remarks This patient demonstrates persistent weakness with high risk of falls. She's been feeling with this weakness for months. She has been discharged to home before with failure of ability to care for herself or rehabilitation at home. She has been medically stable for discharge for the past 1.5 months but despite physical therapy here she has made only slight progress. History of lupus and recurrent C. difficile combined with malnutrition (as an outpatient, and with recurrent C. Diff) is making her chronically weak. At this point a long-term care facility would be in her best interest, as she is unable to care for herself independently. Complaints of nausea today. Patient reports she vomited yesterday. Poor appetite. Only tolerant of liquids right now. Objective Vital Signs Date Time Temp Pulse Resp B/P (MAP) Pulse Ox O2 Delivery O2 Flow Rate FiO2 04/06/17 16:00 98.2 85 17 142/81 (101) 95 04/06/17 12:00 97.9 84 16 138/74 (95) 95 04/06/17 08:00 97.5 80 17 133/76 (95) 96 04/06/17 04:00 98.2 85 20 130/74 (92) 94 04/06/17 00:00 99.0 82 20 113/66 (82) 92 04/05/17 20:00 98.4 82 20 136/72 (93) 93 I/O 04/05/17 04/05/17 04/05/17 04/06/17 04/06/17 04/06/17 07:00 15:00 23:00 07:00 15:00 23:00 Intake Total 120 ml 120 ml Output Total 150 ml 400 ml 385 ml 300 ml Balance -150 ml -280 ml -385 ml -180 ml Intake Oral 120 ml 120 ml Output Urine Total 150 ml 400 ml 385 ml 300 ml # Bowel Movements 4 0 1 Result Diagram: 04/05/17 1145 04/05/17 1145 Procedures None Objective Remarks GENERAL: NAD, A&Ox3 HEAD: Normocephalic. NECK: Supple, trachea midline. No lymphadenopathy. EYES: No scleral icterus. No injection or drainage. CARDIOVASCULAR: Regular rate and rhythm without murmurs, gallops, or rubs. RESPIRATORY: Breath sounds equal bilaterally. No accessory muscle use. GASTROINTESTINAL: Abdomen soft, non-tender, nondistended. MUSCULOSKELETAL: No cyanosis. Bilateral lower extremity swelling. SKIN: Warm and dry. NEURO: No focal neurological deficitis. A/P Problem List: (1) Lupus ICD Code: M32.9 - Systemic lupus erythematosus Status: Chronic (2) Hypertension ICD Code: I10 - Hypertension Status: Acute (3) Insulin dependent diabetes mellitus ICD Code: E11.9 - Insulin dependent diabetes mellitus; Z79.4 - care home ( current) use of insulin Status: Acute (4) Diabetic neuropathy ICD Code: E11.40 - Diabetic neuropathy Status: Acute (5) C. difficile diarrhea ICD Code: A04.7 - Enterocolitis due to Clostridium difficile (6) REGAN (acute kidney injury) ICD Code: N17.9 - Acute kidney failure, unspecified Status: Acute Assessment and Plan Assessment and Plan 46-year-old female admitted secondary to recurrence of C. difficile and bilateral lower extremity edema. Nausea Screening blood tests to determine for electrolyte imbalance She has lupus so GI symptoms could represent lupus exacerbation which has occurred during this hospitalization. We'll consider prednisone if electrolyte disturbances and etiology and do not improve Recurrent C. difficile colitis C. difficile screen if diarrhea occurs again Urinary tract infection Resolved Bilateral lower extremity edema Nephrotic syndrome Protein malnutrition/wasting Improved Diabetes mellitus type 2 Follow blood sugars Insulin sliding scale Diabetic diet History of lupus Autoimmunity Anemia of chronic disease Follow CBC Diastolic CHF Follow clinically Contributory to difficulty with diuresis Continue carvedilol Hypertension No change in baseline blood pressure treatments Follow blood pressures Lower extremity weakness Continue physical therapy DVT prophylaxis Lovenox on hold due to possible bleeding/anemia Discharge planning SNF planned Problem Qualifiers (1) Hypertension: Qualified Codes: I10 - Essential (primary) hypertension Umesh Pandya MD Apr 06, 2017 18:41
[2017-04-06] MEDS ORDERED: LORazepam 2 MG/ML VIAL IV PUSH ONE (18:45)
[2017-04-06 20:00] VITALS: BP 113/61; PULSE 81; RESP 17; TEMP 98.3; O2SAT 94
[2017-04-07] VITALS: BP 108/62; PULSE 76; RESP 17; TEMP 98; O2SAT 96
[2017-04-07 07:29] LABS: AUTOMATED NEUTROPHIL # 4.8 TH/MM3 (1.8-7.7); BASOPHIL # 0.1 TH/MM3 (0-0.2); EOSINOPHIL # 0.1 TH/MM3 (0-0.4); EOSINOPHIL % 1.6 % (0.0-4.0); HEMATOCRIT 28.9 % (35.0-46.0); HEMO FLAGS DIFF FINAL; LYMPH % 20.9 % (9.0-44.0); LYMPHOCYTE # 1.5 TH/MM3 (1.0-4.8); MEAN CELL VOLUME 88.1 FL (80.0-100.0); MEAN CORPUSCULAR HGB CONC 32.9 % (32.0-36.0); MONO % 6.8 % (0.0-8.0); NEUT % 69.7 % (16.0-70.0); PLATELET COUNT 155 TH/MM3 (150-450); RED BLOOD COUNT 3.28 MIL/MM3 (4.00-5.30); RED CELL DISTRIBUTION WIDTH 15.6 % (11.6-17.2)
[2017-04-07 08:00] VITALS: BP 140/77; PULSE 86; RESP 17; TEMP 98.1; O2SAT 92
[2017-04-07 08:08] LABS: ALKALINE PHOSPHATASE 103 U/L (45-117); TOTAL BILIRUBIN ADULT 0.3 MG/DL (0.2-1.0)
--- NOTE | 2017-04-07 08:15 | HHI.PR ---
Neuropsych Emotional Emotional: Moderate: Depressed/Sad Behavior Behavior: Mild: Cooperative w/ Treatment, Motivation, Moderate: Frustration Tolerance/[place] Cognitive Cognitive: Mild: Cognitive, Attention/Concentration, Confused/Orientation, Insight/Awareness, Judgement/Problem-Solving, Memory Psychosocial Psychosocial: Moderate: Psychosocial, Family/Other Adjustment, Realistic Expectation, Unable to Asses: Self-Esteem/Confidence Progress Notes/Response to Tx Contents of Sessions: Adjustment, Level of Consciousness Time with Patient: 30 minutes Premorbid psychological status Premorbid Cognitive, Emotional and Behavioral Status: Stable. The patient has two years of college education and a solid work history prior to this injury. The patient has no psychiatric difficulties, as described above. Substance abuse history is unremarkable. Behavioral Reactions of Patient and Family/Support System: Stable. The patients family is experiencing ongoing issues of adjustment given the nature of the illness, and this aspect of recovery will require ongoing monitoring. Emotional/Behavioral Status of Patient and Family/Support System: Stable. Pertinent issues, if appropriate to this patients clinical care, are described in detail above. Maximizing acute care outcome This patient is being followed from a neurobehavioral perspective to facilitate an optimal therapeutic outcome. Anticipated Problems Ongoing areas of concern will include fluctuating motivation relative to medical challenges. Treatment Plan This clinician will continue to follow with you throughout the course of this patients acute treatment, and I will be available to meet with the patients family/support system to facilitate their understanding and the ongoing care of their family member. The goals of neuropsychological intervention shall be both educational and supportive to the family/support system as is deemed clinically appropriate. Impression 46 year old woman who has been hospitalized for some time for multiple medical issues, reportedly noncompliant with directives. This patient does exhibit cognitive capacity to make decisions of a legal, financial and medical nature at this point. Diagnosis: (1) Major depression, melancholic type Status: Acute Progress Note Narrative Ongoing follow-up of patient seen bedside. This is day 52 since admission. Yesterday, the patient participated adequately in PT, as I facilitated in cotreatment. Unfortunately, the patient is chronically weak, a fall risk and is unable to care for herself independently. Although from a psychological perspective, we may be turning the corner on facilitating her participation, it may be too little too late. Today, however, she appeared unwilling to participate in therapeutic activities. She will require [facility] care. I will continue to follow to facilitate an optimal therapeutic outcome in light of her physical challenges. Dewayne Castañeda PhD Apr 07, 2017 8:15 am
[2017-04-07 08:18] LABS: ALT (GPT) 10 U/L (10-53); ANION GAP 4 MEQ/L (5-15); AST (GOT) 20 U/L (15-37); BLOOD UREA NITROGEN 10 MG/DL (7-18); CHLORIDE 103 MEQ/L (98-107); GLOMERULAR FILTRATION RATE 41 ML/MIN (>89); MAGNESIUM 2.1 MG/DL (1.5-2.5); SODIUM (NA) 141 MEQ/L (136-145)
[2017-04-07 08:22] LABS: POTASSIUM 4.1 MEQ/L (3.5-5.1)
[2017-04-07] MEDS: MULTIVITAMIN TAB PO SCH (08:25)
[2017-04-07] MEDS: LACTOBACILLUS ACIDOPHILUS TAB PO SCH ×3 (08:25→17:42)
[2017-04-07] MEDS: NIFEdipine 60 MG SUSTAINED RELEASE TAB PO SCH (08:25)
[2017-04-07] MEDS: METOPROLOL TARTRATE 50 MG TAB PO SCH ×2 (08:25→21:38)
[2017-04-07] MEDS: CHLOROTHIAZIDE 500 MG PO SCH (08:25)
[2017-04-07] MEDS: ATORVASTATIN 80 MG TAB PO SCH (08:25)
[2017-04-07] MEDS: LOSARTAN 50 MG TAB PO SCH (08:25)
[2017-04-07] MEDS: levETIRAcetam 500 MG TAB PO SCH ×2 (08:25→21:38)
[2017-04-07] MEDS: SODIUM CHLORIDE 0.9% FLUSH 10 ML FLUSH IV FLUSH SCH ×2 (08:26→21:39)
[2017-04-07] MEDS: MEGESTROL ACETATE SUSP 400 MG/10 ML CUP PO SCH (08:26)
[2017-04-07] MEDS: FLUoxetine HCL 10 MG CAP PO SCH (08:46)
[2017-04-07] MEDS: CHOLECALCIFEROL (VIT D3) 5000 UNIT CAP PO SCH (08:46)
[2017-04-07] MEDS: INSULIN ASPART SUPPLEMENTAL SCALE SQ SCH ×4 (08:46→21:39)
[2017-04-07 12:00] VITALS: BP 156/77; PULSE 81; RESP 17; TEMP 97.7; O2SAT 90
[2017-04-07] MEDS: DRONABINOL 5 MG CAP PO SCH ×2 (12:00→15:31)
[2017-04-07] MEDS ORDERED: methylPREDNISolone SOD SUCC 40 MG/1 ML VIAL IV PUSH ONE (13:15)
[2017-04-07] MEDS: ENOXAPARIN SODIUM 30 MG/0.3 ML SYRINGE SQ SCH (15:31)
[2017-04-07 16:00] VITALS: BP 107/59; PULSE 82; RESP 16; TEMP 99.2; O2SAT 94
--- NOTE | 2017-04-07 16:52 | HHI.PR ---
Subjective Remarks This patient demonstrates persistent weakness with high risk of falls. She's been feeling with this weakness for months. She has been discharged to home before with failure of ability to care for herself or rehabilitation at home. She has been medically stable for discharge for the past 1.5 months but despite physical therapy here she has made only slight progress. History of lupus and recurrent C. difficile combined with malnutrition (as an outpatient, and with recurrent C. Diff) is making her chronically weak. At this point a long-term care facility would be in her best interest, as she is unable to care for herself independently. Improved appetite. Decrease hicups. Small episode of diarrhea this morning. Negative workup regarding electrolytes. Lupus May be causing patient's nausea and decreased appetite Objective Vital Signs Date Time Temp Pulse Resp B/P (MAP) Pulse Ox O2 Delivery O2 Flow Rate FiO2 04/07/17 16:00 99.2 82 16 107/59 (75) 94 04/07/17 12:00 97.7 81 17 156/77 (103) 90 04/07/17 08:00 98.1 86 17 140/77 (98) 92 04/07/17 00:00 98.0 76 17 108/62 (77) 96 04/06/17 20:00 98.3 81 17 113/61 (78) 94 I/O 04/06/17 04/06/17 04/06/17 04/07/17 04/07/17 04/07/17 07:00 15:00 23:00 07:00 15:00 23:00 Intake Total 120 ml 240 ml Output Total 385 ml 300 ml Balance -385 ml -180 ml 240 ml Intake Oral 120 ml 240 ml Output Urine Total 385 ml 300 ml # Voids 3 # Bowel Movements 0 1 Result Diagram: 04/07/1761404/07/17614 Procedures None Objective Remarks GENERAL: NAD, A&Ox3 HEAD: Normocephalic. NECK: Supple, trachea midline. No lymphadenopathy. EYES: No scleral icterus. No injection or drainage. CARDIOVASCULAR: Regular rate and rhythm without murmurs, gallops, or rubs. RESPIRATORY: Breath sounds equal bilaterally. No accessory muscle use. GASTROINTESTINAL: Abdomen soft, non-tender, nondistended. MUSCULOSKELETAL: No cyanosis. Bilateral lower extremity swelling. SKIN: Warm and dry. NEURO: No focal neurological deficitis. A/P Problem List: (1) Lupus ICD Code: M32.9 - Systemic lupus erythematosus Status: Chronic (2) Hypertension ICD Code: I10 - Hypertension Status: Acute (3) Insulin dependent diabetes mellitus ICD Code: E11.9 - Insulin dependent diabetes mellitus; Z79.4 - long-term ( current) use of insulin Status: Acute (4) Diabetic neuropathy ICD Code: E11.40 - Diabetic neuropathy Status: Acute (5) C. difficile diarrhea ICD Code: A04.7 - Enterocolitis due to Clostridium difficile (6) REGAN (acute kidney injury) ICD Code: N17.9 - Acute kidney failure, unspecified Status: Acute Assessment and Plan Assessment and Plan 46-year-old female admitted secondary to recurrence of C. difficile and bilateral lower extremity edema. Low-dose steroids resume to address lupus symptoms. Nausea Screening blood tests to determine for electrolyte imbalance She has lupus so GI symptoms could represent lupus exacerbation which has occurred during this hospitalization. We'll consider prednisone if electrolyte disturbances and etiology and do not improve Recurrent C. difficile colitis C. difficile screen if diarrhea occurs again Urinary tract infection Resolved Bilateral lower extremity edema Nephrotic syndrome Protein malnutrition/wasting Improved Diabetes mellitus type 2 Follow blood sugars Insulin sliding scale Diabetic diet History of lupus Autoimmunity Anemia of chronic disease Follow CBC Diastolic CHF Follow clinically Contributory to difficulty with diuresis Continue carvedilol Hypertension No change in baseline blood pressure treatments Follow blood pressures Lower extremity weakness Continue physical therapy DVT prophylaxis Lovenox on hold due to possible bleeding/anemia Discharge planning SNF planned Problem Qualifiers (1) Hypertension: Qualified Codes: I10 - Essential (primary) hypertension Umesh Pandya MD Apr 07, 2017 16:52
[2017-04-07 20:00] VITALS: BP 121/70; PULSE 85; RESP 14; TEMP 98; O2SAT 96
[2017-04-07] MEDS: predniSONE 10 MG TAB PO SCH (21:38)
[2017-04-08] VITALS: BP 119/71; PULSE 85; RESP 15; TEMP 99.1; O2SAT 93
[2017-04-08] MEDS: INSULIN ASPART SUPPLEMENTAL SCALE SQ SCH ×4 (07:56→21:00)
[2017-04-08] MEDS: METOPROLOL TARTRATE 50 MG TAB PO SCH ×2 (07:57→22:32)
[2017-04-08] MEDS: ATORVASTATIN 80 MG TAB PO SCH (07:57)
[2017-04-08] MEDS: predniSONE 10 MG TAB PO SCH ×2 (07:57→22:32)
[2017-04-08] MEDS: MEGESTROL ACETATE SUSP 400 MG/10 ML CUP PO SCH (07:57)
[2017-04-08] MEDS: LOSARTAN 50 MG TAB PO SCH (07:57)
[2017-04-08] MEDS: FLUoxetine HCL 10 MG CAP PO SCH (07:57)
[2017-04-08] MEDS: NIFEdipine 60 MG SUSTAINED RELEASE TAB PO SCH (07:58)
[2017-04-08] MEDS: CHOLECALCIFEROL (VIT D3) 5000 UNIT CAP PO SCH (07:58)
[2017-04-08] MEDS: LACTOBACILLUS ACIDOPHILUS TAB PO SCH ×3 (07:58→16:04)
[2017-04-08] MEDS: levETIRAcetam 500 MG TAB PO SCH ×2 (07:58→22:33)
[2017-04-08] MEDS: CHLOROTHIAZIDE 500 MG PO SCH (07:58)
[2017-04-08] MEDS: SODIUM CHLORIDE 0.9% FLUSH 10 ML FLUSH IV FLUSH SCH ×2 (07:58→21:00)
[2017-04-08] MEDS: MULTIVITAMIN TAB PO SCH (07:58)
[2017-04-08 08:00] VITALS: BP 169/88; PULSE 84; RESP 18; TEMP 98; O2SAT 95
--- NOTE | 2017-04-08 08:30 | HHI.PR ---
Neuropsych Emotional Emotional: Moderate: Depressed/Sad Behavior Behavior: Intact: Coping/Acceptance, Moderate: Cooperative w/ Treatment, Motivation, Frustration Tolerance/[place] Cognitive Cognitive: Mild: Cognitive, Attention/Concentration, Confused/Orientation, Insight/Awareness, Judgement/Problem-Solving, Memory Psychosocial Psychosocial: Moderate: Psychosocial, Family/Other Adjustment, Realistic Expectation, Unable to Asses: Self-Esteem/Confidence Progress Notes/Response to Tx Contents of Sessions: Adjustment Time with Patient: 15 minutes Premorbid psychological status Premorbid Cognitive, Emotional and Behavioral Status: Stable. The patient has two years of college education and a solid work history prior to this injury. The patient has no psychiatric difficulties, as described above. Substance abuse history is unremarkable. Behavioral Reactions of Patient and Family/Support System: Stable. The patients family is experiencing ongoing issues of adjustment given the nature of the illness, and this aspect of recovery will require ongoing monitoring. Emotional/Behavioral Status of Patient and Family/Support System: Stable. Pertinent issues, if appropriate to this patients clinical care, are described in detail above. Maximizing acute care outcome This patient is being followed from a neurobehavioral perspective to facilitate an optimal therapeutic outcome. Anticipated Problems Ongoing areas of concern will include fluctuating motivation relative to medical challenges. Treatment Plan This clinician will continue to follow with you throughout the course of this patients acute treatment, and I will be available to meet with the patients family/support system to facilitate their understanding and the ongoing care of their family member. The goals of neuropsychological intervention shall be both educational and supportive to the family/support system as is deemed clinically appropriate. Impression 46 year old woman who has been hospitalized for some time for multiple medical issues, reportedly noncompliant with directives. This patient does exhibit cognitive capacity to make decisions of a legal, financial and medical nature at this point. Diagnosis: (1) Major depression, melancholic type Status: Acute Progress Note Narrative Ongoing follow-up of patient seen bedside. This is day 53 since admission. The patient continues to ryan various medical challenges to her ability to return home, and given her physical condition and fall risk, she is not safe to discharge home. She will require jail care to manage her various issues. I again discussed with her the importance of remaining active, doing arm exercises while sitting and completing bed rolls to improve functioning. Her mother was in the room, and I told her the same, in hopes that mom will also deliver the same message. I will continue to follow. Dewayne Castañeda PhD Apr 08, 2017 8:30 am
[2017-04-08] MEDS: DRONABINOL 5 MG CAP PO SCH ×2 (11:17→16:04)
[2017-04-08 12:00] VITALS: BP 174/100; PULSE 82; RESP 19; TEMP 97.2; O2SAT 98
[2017-04-08] MEDS: METOPROLOL TARTRATE 25 MG TAB PO PRN (12:41)
--- NOTE | 2017-04-08 15:25 | HHI.PR ---
Subjective Remarks This patient demonstrates persistent weakness with high risk of falls. She's been feeling with this weakness for months. She has been discharged to home before with failure of ability to care for herself or rehabilitation at home. She has been medically stable for discharge for the past 1.5 months but despite physical therapy here she has made only slight progress. History of lupus and recurrent C. difficile combined with malnutrition (as an outpatient, and with recurrent C. Diff) is making her chronically weak. At this point a long-term care facility would be in her best interest, as she is unable to care for herself independently. Patient reports persisting nausea. She has poor appetite. No emesis today. Objective Vital Signs Date Time Temp Pulse Resp B/P (MAP) Pulse Ox O2 Delivery O2 Flow Rate FiO2 04/08/17 12:00 97.2 82 19 174/100 (124) 98 04/08/17 08:00 98.0 84 18 169/88 (115) 95 04/08/17 00:00 99.1 85 15 119/71 (87) 93 04/07/17 20:00 98.0 85 14 121/70 (87) 96 04/07/17 16:00 99.2 82 16 107/59 (75) 94 I/O 04/07/17 04/07/17 04/07/17 04/08/17 04/08/17 04/08/17 07:00 15:00 23:00 07:00 15:00 23:00 Intake Total 240 ml 360 ml 240 ml Output Total 203 ml Balance 240 ml 157 ml 240 ml Intake Oral 240 ml 360 ml 240 ml Output Urine Total 203 ml # Voids 3 0 2 # Bowel Movements 2 Result Diagram: 04/07/1715 04/07/1715 Procedures None Objective Remarks GENERAL: NAD, A&Ox3 HEAD: Normocephalic. NECK: Supple, trachea midline. No lymphadenopathy. EYES: No scleral icterus. No injection or drainage. CARDIOVASCULAR: Regular rate and rhythm without murmurs, gallops, or rubs. RESPIRATORY: Breath sounds equal bilaterally. No accessory muscle use. GASTROINTESTINAL: Abdomen soft, non-tender, nondistended. MUSCULOSKELETAL: No cyanosis. Bilateral lower extremity swelling. SKIN: Warm and dry. NEURO: No focal neurological deficitis. 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 difficile diarrhea ICD Code: A04.7 - Enterocolitis due to Clostridium difficile (6) REGAN (acute kidney injury) ICD Code: N17.9 - Acute kidney failure, unspecified Status: Acute Assessment and Plan Assessment and Plan 46-year-old female admitted secondary to recurrence of C. difficile and bilateral lower extremity edema. Trial of Reglan. Element of gastroparesis may be present, based on symptoms. Follow clinically for improvement in GI symptoms. Nausea Screening blood tests to determine for electrolyte imbalance She has lupus so GI symptoms could represent lupus exacerbation which has occurred during this hospitalization. We'll consider prednisone if electrolyte disturbances and etiology and do not improve Recurrent C. difficile colitis C. difficile screen if diarrhea occurs again Urinary tract infection Resolved Bilateral lower extremity edema Nephrotic syndrome Protein malnutrition/wasting Improved Diabetes mellitus type 2 Follow blood sugars Insulin sliding scale Diabetic diet History of lupus Autoimmunity Anemia of chronic disease Follow CBC Diastolic CHF Follow clinically Contributory to difficulty with diuresis Continue carvedilol Hypertension No change in baseline blood pressure treatments Follow blood pressures Lower extremity weakness Continue physical therapy DVT prophylaxis Lovenox on hold due to possible bleeding/anemia Discharge planning SNF planned Problem Qualifiers (1) Hypertension: Qualified Codes: I10 - Essential (primary) hypertension Umesh Pandya MD Apr 08, 2017 15:25
[2017-04-08 16:00] VITALS: BP 129/75; PULSE 83; RESP 17; TEMP 98.8; O2SAT 96
[2017-04-08] MEDS: ENOXAPARIN SODIUM 30 MG/0.3 ML SYRINGE SQ SCH (16:04)
[2017-04-08] MEDS: PROMETHAZINE HCL 25 MG TAB PO PRN (16:53)
[2017-04-08] MEDS: METOCLOPRAMIDE HCL 10 MG TAB PO SCH ×2 (17:25→22:33)
[2017-04-08 20:00] VITALS: BP 126/79; PULSE 81; RESP 19; TEMP 97.6; O2SAT 98
[2017-04-09] VITALS: BP 90/55; PULSE 85; RESP 20; TEMP 98.4; O2SAT 97
[2017-04-09 04:00] VITALS: BP 129/73; PULSE 88; RESP 19; TEMP 97.6; O2SAT 95
[2017-04-09 08:00] VITALS: BP 150/81; PULSE 93; RESP 18; TEMP 98.8; O2SAT 94
[2017-04-09] MEDS: INSULIN ASPART SUPPLEMENTAL SCALE SQ SCH ×4 (08:00→22:36)
[2017-04-09] MEDS: predniSONE 10 MG TAB PO SCH ×2 (09:48→22:24)
[2017-04-09] MEDS: FLUoxetine HCL 10 MG CAP PO SCH (09:48)
[2017-04-09] MEDS: CHOLECALCIFEROL (VIT D3) 5000 UNIT CAP PO SCH (09:48)
[2017-04-09] MEDS: NIFEdipine 60 MG SUSTAINED RELEASE TAB PO SCH (09:48)
[2017-04-09] MEDS: LACTOBACILLUS ACIDOPHILUS TAB PO SCH ×3 (09:48→16:39)
[2017-04-09] MEDS: levETIRAcetam 500 MG TAB PO SCH ×2 (09:48→22:24)
[2017-04-09] MEDS: LOSARTAN 50 MG TAB PO SCH (09:48)
[2017-04-09] MEDS: MULTIVITAMIN TAB PO SCH (09:48)
[2017-04-09] MEDS: METOPROLOL TARTRATE 50 MG TAB PO SCH ×2 (09:48→22:24)
[2017-04-09] MEDS: MEGESTROL ACETATE SUSP 400 MG/10 ML CUP PO SCH (09:49)
[2017-04-09] MEDS: CHLOROTHIAZIDE 500 MG PO SCH (09:49)
[2017-04-09] MEDS: METOCLOPRAMIDE HCL 10 MG TAB PO SCH ×4 (09:49→22:24)
[2017-04-09] MEDS: ATORVASTATIN 80 MG TAB PO SCH (09:49)
[2017-04-09] MEDS: SODIUM CHLORIDE 0.9% FLUSH 10 ML FLUSH IV FLUSH SCH ×2 (09:51→21:00)
[2017-04-09] MEDS: DRONABINOL 5 MG CAP PO SCH ×2 (12:36→16:36)
[2017-04-09 16:00] VITALS: BP 128/75; PULSE 78; RESP 16; TEMP 98; O2SAT 94
--- NOTE | 2017-04-09 16:08 | HHI.PR ---
Subjective Remarks This patient demonstrates persistent weakness with high risk of falls. She's been feeling with this weakness for months. She has been discharged to home before with failure of ability to care for herself or rehabilitation at home. She has been medically stable for discharge for the past 1.5 months but despite physical therapy here she has made only slight progress. History of lupus and recurrent C. difficile combined with malnutrition (as an outpatient, and with recurrent C. Diff) is making her chronically weak. At this point a long-term care facility would be in her best interest, as she is unable to care for herself independently. Continued nausea today. Poor appetite. No ambulatory effort. Objective Vital Signs Date Time Temp Pulse Resp B/P (MAP) Pulse Ox O2 Delivery O2 Flow Rate FiO2 04/09/17 08:00 98.8 93 18 150/81 (104) 94 04/09/17 04:00 97.6 88 19 129/73 (91) 95 04/09/17 00:00 98.4 85 20 90/55 (67) 97 04/08/17 20:00 97.6 81 19 126/79 (95) 98 I/O 04/08/17 04/08/17 04/08/17 04/09/17 04/09/17 04/09/17 07:00 15:00 23:00 07:00 15:00 23:00 Intake Total 240 ml 540 ml 240 ml Output Total 3 ml Balance 240 ml 537 ml 240 ml Intake Oral 240 ml 540 ml 240 ml Output Urine Total 3 ml # Voids 2 1 1 # Bowel Movements 0 Result Diagram: 04/07/1761404/07/17614 Procedures None Objective Remarks GENERAL: NAD, A&Ox3 HEAD: Normocephalic. NECK: Supple, trachea midline. No lymphadenopathy. EYES: No scleral icterus. No injection or drainage. CARDIOVASCULAR: Regular rate and rhythm without murmurs, gallops, or rubs. RESPIRATORY: Breath sounds equal bilaterally. No accessory muscle use. GASTROINTESTINAL: Abdomen soft, non-tender, nondistended. MUSCULOSKELETAL: No cyanosis. Bilateral lower extremity swelling. SKIN: Warm and dry. NEURO: No focal neurological deficitis. A/P Problem List: (1) Lupus ICD Code: M32.9 - Systemic lupus erythematosus Status: Chronic (2) Hypertension ICD Code: I10 - Hypertension Status: Acute (3) Insulin dependent diabetes mellitus ICD Code: E11.9 - Insulin dependent diabetes mellitus; Z79.4 - assisted ( current) use of insulin Status: Acute (4) Diabetic neuropathy ICD Code: E11.40 - Diabetic neuropathy Status: Acute (5) C. difficile diarrhea ICD Code: A04.7 - Enterocolitis due to Clostridium difficile (6) REGAN (acute kidney injury) ICD Code: N17.9 - Acute kidney failure, unspecified Status: Acute Assessment and Plan Assessment and Plan 46-year-old female admitted secondary to recurrence of C. difficile and bilateral lower extremity edema. Nausea present today. No reported vomiting. Continue to work with PT. Patient has poor physical efforts today. Nausea Screening blood tests to determine for electrolyte imbalance She has lupus so GI symptoms could represent lupus exacerbation which has occurred during this hospitalization. We'll consider prednisone if electrolyte disturbances and etiology and do not improve Recurrent C. difficile colitis C. difficile screen if diarrhea occurs again Urinary tract infection Resolved Bilateral lower extremity edema Nephrotic syndrome Protein malnutrition/wasting Improved Diabetes mellitus type 2 Follow blood sugars Insulin sliding scale Diabetic diet History of lupus Autoimmunity Anemia of chronic disease Follow CBC Diastolic CHF Follow clinically Contributory to difficulty with diuresis Continue carvedilol Hypertension No change in baseline blood pressure treatments Follow blood pressures Lower extremity weakness Continue physical therapy DVT prophylaxis Lovenox on hold due to possible bleeding/anemia Discharge planning SNF planned Problem Qualifiers (1) Hypertension: Qualified Codes: I10 - Essential (primary) hypertension Umesh Pandya MD Apr 09, 2017 16:08
[2017-04-09] MEDS: ENOXAPARIN SODIUM 30 MG/0.3 ML SYRINGE SQ SCH (16:37)
[2017-04-09] MEDS: REMOVE OLD SCOPOLAMINE PATCH T-DERMAL SCH (16:38)
[2017-04-09] MEDS: SCOPOLAMINE 1.5 MG PATCH T-DERMAL SCH (16:38)
[2017-04-09 20:00] VITALS: BP 135/76; PULSE 84; RESP 12; TEMP 98.1; O2SAT 95
[2017-04-10] VITALS (7 sets, daily range): BP systolic 115–193; BP diastolic 68–109; PULSE 81–90; RESP 15–18; TEMP 96.4–98.6; O2SAT 93–97
[2017-04-10] MEDS: INSULIN ASPART SUPPLEMENTAL SCALE SQ SCH ×4 (08:00→20:42)
[2017-04-10] MEDS: SODIUM CHLORIDE 0.9% FLUSH 10 ML FLUSH IV FLUSH SCH ×2 (09:00→21:03)
[2017-04-10] MEDS: MEGESTROL ACETATE SUSP 400 MG/10 ML CUP PO SCH (10:30)
[2017-04-10] MEDS: ATORVASTATIN 80 MG TAB PO SCH (10:31)
[2017-04-10] MEDS: predniSONE 10 MG TAB PO SCH ×2 (10:31→20:30)
[2017-04-10] MEDS: CHOLECALCIFEROL (VIT D3) 5000 UNIT CAP PO SCH (10:31)
[2017-04-10] MEDS: METOCLOPRAMIDE HCL 10 MG TAB PO SCH ×4 (10:31→20:30)
[2017-04-10] MEDS: LOSARTAN 50 MG TAB PO SCH (10:31)
[2017-04-10] MEDS: MULTIVITAMIN TAB PO SCH (10:31)
[2017-04-10] MEDS: FLUoxetine HCL 10 MG CAP PO SCH (10:31)
[2017-04-10] MEDS: CHLOROTHIAZIDE 500 MG PO SCH (10:31)
[2017-04-10] MEDS: levETIRAcetam 500 MG TAB PO SCH ×2 (10:31→20:30)
[2017-04-10] MEDS: METOPROLOL TARTRATE 50 MG TAB PO SCH ×2 (10:31→20:30)
[2017-04-10] MEDS: NIFEdipine 60 MG SUSTAINED RELEASE TAB PO SCH (10:31)
[2017-04-10] MEDS: LACTOBACILLUS ACIDOPHILUS TAB PO SCH ×3 (10:32→17:21)
[2017-04-10] MEDS: cloNIDine HCL 0.1 MG TAB PO PRN (11:00)
[2017-04-10] MEDS: DRONABINOL 5 MG CAP PO SCH ×2 (12:06→17:21)
[2017-04-10] MEDS: ACETAMINOPHEN/HYDROcodone 325 MG/5 MG TAB PO PRN (12:27)
[2017-04-10] MEDS: hydrALAZINE HCL 10 MG TAB PO PRN (12:27)
[2017-04-10] MEDS: ENOXAPARIN SODIUM 30 MG/0.3 ML SYRINGE SQ SCH (14:08)
--- NOTE | 2017-04-10 14:23 | HHI.PR ---
Subjective Remarks This patient demonstrates persistent weakness with high risk of falls. She's been feeling with this weakness for months. She has been discharged to home before with failure of ability to care for herself or rehabilitation at home. She has been medically stable for discharge for the past 1.5 months but despite physical therapy here she has made only slight progress. History of lupus and recurrent C. difficile combined with malnutrition (as an outpatient, and with recurrent C. Diff) is making her chronically weak. At this point a long-term care facility would be in her best interest, as she is unable to care for herself independently. Patient notices some benefit from Reglan in regards to her nausea. She still has poor appetite and chronic nausea at this point. No new complaints. Small volume diarrhea last night. Objective Vital Signs Date Time Temp Pulse Resp B/P (MAP) Pulse Ox O2 Delivery O2 Flow Rate FiO2 04/10/17 14:13 82 146/83 (104) 04/10/17 12:09 90 185/94 (124) 04/10/17 12:00 97.9 87 17 193/109 (137) 97 04/10/17 08:00 98.6 87 17 182/89 (120) 96 04/10/17 00:00 97.4 81 15 145/77 (99) 93 04/09/17 20:00 98.1 84 12 135/76 (95) 95 04/09/17 16:00 98.0 78 16 128/75 (92) 94 I/O 04/09/17 04/09/17 04/09/17 04/10/17 04/10/17 04/10/17 07:00 15:00 23:00 07:00 15:00 23:00 Intake Total 240 ml 360 ml 240 ml Balance 240 ml 360 ml 240 ml Intake Oral 240 ml 360 ml 240 ml # Voids 1 2 2 # Bowel Movements 2 Result Diagram: 04/07/1761404/07/17614 Procedures None Objective Remarks GENERAL: NAD, A&Ox3 HEAD: Normocephalic. NECK: Supple, trachea midline. No lymphadenopathy. EYES: No scleral icterus. No injection or drainage. CARDIOVASCULAR: Regular rate and rhythm without murmurs, gallops, or rubs. RESPIRATORY: Breath sounds equal bilaterally. No accessory muscle use. GASTROINTESTINAL: Abdomen soft, non-tender, nondistended. MUSCULOSKELETAL: No cyanosis. Bilateral lower extremity swelling. SKIN: Warm and dry. NEURO: No focal neurological deficitis. A/P Problem List: (1) Lupus ICD Code: M32.9 - Systemic lupus erythematosus Status: Chronic (2) Hypertension ICD Code: I10 - Hypertension Status: Acute (3) Insulin dependent diabetes mellitus ICD Code: E11.9 - Insulin dependent diabetes mellitus; Z79.4 - care home ( current) use of insulin Status: Acute (4) Diabetic neuropathy ICD Code: E11.40 - Diabetic neuropathy Status: Acute (5) C. difficile diarrhea ICD Code: A04.7 - Enterocolitis due to Clostridium difficile (6) REGAN (acute kidney injury) ICD Code: N17.9 - Acute kidney failure, unspecified Status: Acute Assessment and Plan Assessment and Plan 46-year-old female admitted secondary to recurrence of C. difficile and bilateral lower extremity edema. Slight improvement in nausea. Continue Reglan. Discharge pending placement options. Nausea Screening blood tests to determine for electrolyte imbalance She has lupus so GI symptoms could represent lupus exacerbation which has occurred during this hospitalization. We'll consider prednisone if electrolyte disturbances and etiology and do not improve Recurrent C. difficile colitis C. difficile screen if diarrhea occurs again Urinary tract infection Resolved Bilateral lower extremity edema Nephrotic syndrome Protein malnutrition/wasting Improved Diabetes mellitus type 2 Follow blood sugars Insulin sliding scale Diabetic diet History of lupus Autoimmunity Anemia of chronic disease Follow CBC Diastolic CHF Follow clinically Contributory to difficulty with diuresis Continue carvedilol Hypertension No change in baseline blood pressure treatments Follow blood pressures Lower extremity weakness Continue physical therapy DVT prophylaxis Lovenox on hold due to possible bleeding/anemia Discharge planning SNF planned Problem Qualifiers (1) Hypertension: Qualified Codes: I10 - Essential (primary) hypertension Umesh Pandya MD Apr 10, 2017 14:23
[2017-04-10] MEDS ORDERED: cloNIDine HCL 0.2 MG TAB PO PRN (15:00)
[2017-04-11] VITALS: BP 143/69; PULSE 81; RESP 18; TEMP 98.8; O2SAT 95
[2017-04-11 08:00] VITALS: BP 173/97; PULSE 86; RESP 16; TEMP 97.7; O2SAT 95
[2017-04-11] MEDS: predniSONE 10 MG TAB PO SCH ×2 (08:57→21:57)
[2017-04-11] MEDS: levETIRAcetam 500 MG TAB PO SCH ×2 (08:57→21:57)
[2017-04-11] MEDS: CHOLECALCIFEROL (VIT D3) 5000 UNIT CAP PO SCH (08:57)
[2017-04-11] MEDS: ATORVASTATIN 80 MG TAB PO SCH (08:57)
[2017-04-11] MEDS: MEGESTROL ACETATE SUSP 400 MG/10 ML CUP PO SCH (08:57)
[2017-04-11] MEDS: FLUoxetine HCL 10 MG CAP PO SCH (08:57)
[2017-04-11] MEDS: METOCLOPRAMIDE HCL 10 MG TAB PO SCH ×4 (08:57→21:57)
[2017-04-11] MEDS: LACTOBACILLUS ACIDOPHILUS TAB PO SCH ×3 (08:57→16:42)
[2017-04-11] MEDS: MULTIVITAMIN TAB PO SCH (08:58)
[2017-04-11] MEDS: METOPROLOL TARTRATE 50 MG TAB PO SCH ×2 (08:58→21:57)
[2017-04-11] MEDS: CHLOROTHIAZIDE 500 MG PO SCH (08:58)
[2017-04-11] MEDS: LOSARTAN 50 MG TAB PO SCH (08:58)
[2017-04-11] MEDS: NIFEdipine 60 MG SUSTAINED RELEASE TAB PO SCH (08:58)
[2017-04-11] MEDS: SODIUM CHLORIDE 0.9% FLUSH 10 ML FLUSH IV FLUSH SCH ×2 (09:00→21:00)
[2017-04-11] MEDS: INSULIN ASPART SUPPLEMENTAL SCALE SQ SCH ×4 (09:01→21:57)
[2017-04-11 12:00] VITALS: BP 167/91; PULSE 87; RESP 17; TEMP 98.5; O2SAT 98
--- NOTE | 2017-04-11 12:00 | HHI.PR ---
Neuropsych Behavior Behavior: Moderate: Coping/Acceptance, Cooperative w/ Treatment, Motivation Cognitive Cognitive: Mild: Cognitive, Attention/Concentration, Confused/Orientation, Insight/Awareness, Judgement/Problem-Solving, Memory Psychosocial Psychosocial: Mild: Psychosocial, Family/Other Adjustment, Realistic Expectation, Unable to Asses: Self-Esteem/Confidence Progress Notes/Response to Tx Contents of Sessions: Adjustment Time with Patient: 15 minutes Premorbid psychological status Premorbid Cognitive, Emotional and Behavioral Status: Stable. The patient has two years of college education and a solid work history prior to this injury. The patient has no psychiatric difficulties, as described above. Substance abuse history is unremarkable. Behavioral Reactions of Patient and Family/Support System: Stable. The patients family is experiencing ongoing issues of adjustment given the nature of the illness, and this aspect of recovery will require ongoing monitoring. Emotional/Behavioral Status of Patient and Family/Support System: Stable. Pertinent issues, if appropriate to this patients clinical care, are described in detail above. Maximizing acute care outcome This patient is being followed from a neurobehavioral perspective to facilitate an optimal therapeutic outcome. Anticipated Problems Ongoing areas of concern will include fluctuating motivation relative to medical challenges. Treatment Plan This clinician will continue to follow with you throughout the course of this patients acute treatment, and I will be available to meet with the patients family/support system to facilitate their understanding and the ongoing care of their family member. The goals of neuropsychological intervention shall be both educational and supportive to the family/support system as is deemed clinically appropriate. Impression 46 year old woman who has been hospitalized for some time for multiple medical issues, reportedly noncompliant with directives. This patient does exhibit cognitive capacity to make decisions of a legal, financial and medical nature at this point. Diagnosis: (1) Major depression, melancholic type Status: Acute Progress Note Narrative Ongoing follow-up of patient seen bedside along with mother. This is day 56 since admission. The patient was minimally conversant today, reporting that she was participating in therapy, but could not explain to what extent of her participation. she is noted to have a persistent weakness and is a high fall risk, and is unable to care for herself. Her motivation to participate, in spite of best efforts, appears limited as well. She seems resigned to the fact that she will need transition to extended care. Dewayne Castañdea PhD Apr 11, 2017 11:59 am
[2017-04-11] MEDS: DRONABINOL 5 MG CAP PO SCH ×2 (12:34→16:42)
--- NOTE | 2017-04-11 13:49 | HHI.PR ---
Subjective Remarks Patient had bm yesterday Afebrile, Objective Vitals Vital Signs Date Time Temp Pulse Resp B/P (MAP) Pulse Ox O2 Delivery O2 Flow Rate FiO2 04/11/17 12:00 98.5 87 17 167/91 (116) 98 04/11/17 08:00 97.7 86 16 173/97 (122) 95 04/11/17 00:00 98.8 81 18 143/69 (93) 95 04/10/17 20:00 96.4 86 18 131/74 (93) 96 04/10/17 16:00 98.5 81 17 115/68 (84) 96 04/10/17 14:13 82 146/83 (104) I/O 04/10/17 04/10/17 04/10/17 04/11/17 04/11/17 04/11/17 07:00 15:00 23:00 07:00 15:00 23:00 Intake Total 240 ml 600 ml 480 ml Balance 240 ml 600 ml 480 ml Intake Oral 240 ml 600 ml 480 ml # Voids 2 1 1 # Bowel Movements 0 0 Result Diagram: 04/07/1761404/07/17614 Objective Remarks GENERAL: This is a well-nourished, well-developed patient, in no apparent distress. CARDIOVASCULAR: Regular rate and rhythm without murmurs, gallops, or rubs. RESPIRATORY: Clear to auscultation. Breath sounds equal bilaterally. No wheezes , rales, or rhonchi. GASTROINTESTINAL: Abdomen soft, non-tender, nondistended. Normal active bowel sounds MUSCULOSKELETAL: Extremities without clubbing, cyanosis, or edema. NEURO: Alert & Oriented x4 to person, place, time, situation. Moves all ext x4 Procedures Left IJ central line 02/25/2017. A/P Problem List: (1) Diastolic CHF, acute ICD Code: I50.31 - Acute diastolic (congestive) heart failure (2) Hypoalbuminemia ICD Code: E88.09 - Other disorders of plasma-protein metabolism, not elsewhere classified (3) DM (diabetes mellitus) type I uncontrolled with renal manifestation ICD Code: E10.29 - Uncontrolled type 1 diabetes mellitus with renal manifestations; E10.65 - Type 1 diabetes mellitus with hyperglycemia Status: Chronic (4) Hypertension ICD Code: I10 - Hypertension Status: Acute (5) Hypernatremia ICD Code: E87.0 - Hyperosmolality and hypernatremia Assessment and Plan Nausea Recurrent C. difficile colitis UTI Bilateral lower extremity edema Nephrotic syndrome Protein malnutrition Diabetes mellitus History of lupus Anemia of chronic disease Hypertension Diastolic preserved EF CHF DVT prophylaxis Plan: Continue diuresis and carvedilol Check for C. difficile if diarrhea recur Accu-Chek and ISS Monitor CBC PT OT Lovenox for DVT prophylaxis Problem Qualifiers (1) DM (diabetes mellitus) type I uncontrolled with renal manifestation: (2) Hypertension: Qualified Codes: I10 - Essential (primary) hypertension Keshav Jenkins MD Apr 11, 2017 13:49
[2017-04-11] MEDS: ENOXAPARIN SODIUM 30 MG/0.3 ML SYRINGE SQ SCH (15:32)
[2017-04-11 16:00] VITALS: BP 126/72; PULSE 83; RESP 18; TEMP 98.3; O2SAT 96
[2017-04-11 20:00] VITALS: BP 141/76; PULSE 81; RESP 16; TEMP 98.9; O2SAT 98
[2017-04-12] VITALS: BP 153/89; PULSE 81; RESP 16; TEMP 98.6; O2SAT 97
[2017-04-12] MEDS: SODIUM CHLORIDE 0.9% FLUSH 10 ML FLUSH IV FLUSH SCH ×2 (07:18→20:42)
[2017-04-12 08:00] VITALS: BP 174/94; PULSE 92; RESP 19; TEMP 97.3; O2SAT 96
--- NOTE | 2017-04-12 08:28 | HHI.PR ---
Neuropsych Emotional Emotional: Moderate: Depressed/Sad, Constricted/Blunted Behavior Behavior: Moderate: Cooperative w/ Treatment, Motivation Cognitive Cognitive: Mild: Cognitive, Attention/Concentration, Confused/Orientation, Insight/Awareness, Judgement/Problem-Solving, Memory Progress Notes/Response to Tx Contents of Sessions: Adjustment Time with Patient: 15 minutes Premorbid psychological status Premorbid Cognitive, Emotional and Behavioral Status: Stable. The patient has two years of college education and a solid work history prior to this injury. The patient has no psychiatric difficulties, as described above. Substance abuse history is unremarkable. Behavioral Reactions of Patient and Family/Support System: Stable. The patients family is experiencing ongoing issues of adjustment given the nature of the illness, and this aspect of recovery will require ongoing monitoring. Emotional/Behavioral Status of Patient and Family/Support System: Stable. Pertinent issues, if appropriate to this patients clinical care, are described in detail above. Maximizing acute care outcome This patient is being followed from a neurobehavioral perspective to facilitate an optimal therapeutic outcome. Anticipated Problems Ongoing areas of concern will include fluctuating motivation relative to medical challenges. Treatment Plan This clinician will continue to follow with you throughout the course of this patients acute treatment, and I will be available to meet with the patients family/support system to facilitate their understanding and the ongoing care of their family member. The goals of neuropsychological intervention shall be both educational and supportive to the family/support system as is deemed clinically appropriate. Impression 46 year old woman who has been hospitalized for some time for multiple medical issues, reportedly noncompliant with directives. This patient does exhibit cognitive capacity to make decisions of a legal, financial and medical nature at this point. Diagnosis: (1) Major depression, melancholic type Status: Acute Progress Note Narrative Ongoing follow-up of patient seen bedside. The patient is day 57 in the hospital. She has exhibited little in the way of motivation or efforts to facilitate her own recovery, electing not to complete exercises during times when PT is not working with her. She seems resigned to transfer to [facility]. Given her eventual transfer regardless of her improvement (or lack thereof) at this point, I will sign off. Dewayne Castañeda PhD Apr 12, 2017 8:28 am
[2017-04-12] MEDS: METOCLOPRAMIDE HCL 10 MG TAB PO SCH ×4 (10:02→20:41)
[2017-04-12] MEDS: NIFEdipine 60 MG SUSTAINED RELEASE TAB PO SCH (10:02)
[2017-04-12] MEDS: INSULIN ASPART SUPPLEMENTAL SCALE SQ SCH ×4 (10:02→20:41)
[2017-04-12] MEDS: FLUoxetine HCL 10 MG CAP PO SCH (10:02)
[2017-04-12] MEDS: CHLOROTHIAZIDE 500 MG PO SCH (10:03)
[2017-04-12] MEDS: predniSONE 10 MG TAB PO SCH ×2 (10:03→20:41)
[2017-04-12] MEDS: CHOLECALCIFEROL (VIT D3) 5000 UNIT CAP PO SCH (10:03)
[2017-04-12] MEDS: LOSARTAN 50 MG TAB PO SCH (10:03)
[2017-04-12] MEDS: METOPROLOL TARTRATE 50 MG TAB PO SCH ×2 (10:03→20:41)
[2017-04-12] MEDS: levETIRAcetam 500 MG TAB PO SCH ×2 (10:03→20:41)
[2017-04-12] MEDS: LACTOBACILLUS ACIDOPHILUS TAB PO SCH ×3 (10:03→16:42)
[2017-04-12] MEDS: MEGESTROL ACETATE SUSP 400 MG/10 ML CUP PO SCH (10:03)
[2017-04-12] MEDS: ATORVASTATIN 80 MG TAB PO SCH (10:03)
[2017-04-12] MEDS: MULTIVITAMIN TAB PO SCH (10:03)
--- NOTE | 2017-04-12 11:38 | PD.NP.DS ---
Discharge Summary Reason for Referral: The patient is a 46-year-old woman who is referred to me for noncompliance with treatment recommendations. As background, this patient lives with her 16-year-old son, , unemployed, without no previous psychiatric history, no previous psychiatric hospitalizations, no previous suicide attempts, she is on Prozac 20 mg, with a past medical history significant for diabetes mellitus (poorly controlled, prior multiple admission for DKA), hypertension, asthma, CKD stage III, strokes 2013 (with residual deficit right upper extremity), seizure, and lupus, multiple medical hospitalizations, who presented with leg swelling. recurrent Diarrhea. On examination, the patient was calm, cooperative, and pleasant. She is alert and oriented x 4. She reports feeling normal, denies distress, denies anxiety, denies pain, she denies depressive symptoms, she denies anhedonia, denies hopelessness, denies helplessness, denies suicidal and homicidal ideation, denies visual and auditory hallucinations. Patient reports good sleep, good appetite, she says that she is want to go home. She says that she is tired to be in the hospital and she wanted to be home with her son. I followed her for approximately one week of her 57 day stay, with little in the way of improving her motivation to facilitate her own physical recovery. She is scheduled to transfer to an ECF. Past Medical History: Please refer to the patient's history and physical for information concerning the patient's past medical, surgical, and psychiatric histories. Education/Learning Hx: The patient completed high school and two years of college education. There is no report of learning difficulties, grade repetitions or behavioral difficulties. The patient had a solid work history but had not worked for some time. The patient is . She has one son. The patient lives in [place], [place]. Premorbid Cognitive, Emotional and Behavioral Status: Stable. The patient has two years of college education and a solid work history prior to this injury. The patient has no psychiatric difficulties, as described above. Substance abuse history is unremarkable. Behavioral Reactions of Patient and Family/Support System: Stable. The patients family is experiencing ongoing issues of adjustment given the nature of the illness, and this aspect of recovery will require ongoing monitoring. Emotional/Behavioral Status of Patient and Family/Support System: Stable. Pertinent issues, if appropriate to this patients clinical care, are described in detail above. Treatment Interventions: During the course of their acute care stay, this patient and their family/ support system were provided information concerning the neuropsychological aspects of the injury, education regarding course of recovery, and psychological support in the form of counseling with the person served and the family/support system as documented in the neuropsychology service progress notes, as deemed clinically appropriate. Current, Cognitive, Emotional and Behavioral Status: Unstable. This patient's physical and psychological challenges are insurmountable, and she has little in the way of motivation to improve. Impression at Discharge: The cognitive and behavioral status of this patient meets criteria for Unspecified Depressive Disorder CODE: F32.9 The above listed diagnoses are supported by the following clinical criteria: Unspecified Depressive Disorder. This patient exhibits chronic dysphoric mood, with irritability, social withdrawal, low motivation, chronic sleepiness, among other symptoms with none of her present symptoms better explained by any other medical disorder. Status of Family/Support System Adjustment: Tenuous. The patients family/ support system will experience ongoing issues of adjustment given the nature of the injury, and this aspect of the patients recovery will require ongoing monitoring. Post Acute Recommendations: It is recommended that the patient continue to be encouraged to improve from a physical standpoint. Thank you for the opportunity to assist in this patients care. Dewayne Castañeda, Ph.D., ABPP Board Certified in Clinical Neuropsychology [place] [employer] [place] Licensed Psychologist #[id number] Dewayne Castañeda PhD Apr 12, 2017 11:37 am
[2017-04-12 12:00] VITALS: BP 142/77; PULSE 86; RESP 17; TEMP 98.1; O2SAT 97
[2017-04-12] MEDS: DRONABINOL 5 MG CAP PO SCH ×2 (12:39→16:41)
[2017-04-12 16:00] VITALS: BP 123/73; PULSE 84; RESP 17; TEMP 98.4; O2SAT 97
[2017-04-12] MEDS: ENOXAPARIN SODIUM 30 MG/0.3 ML SYRINGE SQ SCH (16:41)
[2017-04-12] MEDS: REMOVE OLD SCOPOLAMINE PATCH T-DERMAL SCH (16:42)
[2017-04-12] MEDS: SCOPOLAMINE 1.5 MG PATCH T-DERMAL SCH (16:42)
[2017-04-12 20:00] VITALS: BP 128/78; PULSE 87; RESP 16; TEMP 98.1; O2SAT 97
--- NOTE | 2017-04-12 22:05 | HHI.PR ---
Subjective Remarks Patient sleeping, no chest pain or short of breath less nausea Objective Vitals Vital Signs Date Time Temp Pulse Resp B/P (MAP) Pulse Ox O2 Delivery O2 Flow Rate FiO2 04/12/17 16:00 98.4 84 17 123/73 (90) 97 04/12/17 12:00 98.1 86 17 142/77 (98) 97 04/12/17 08:00 97.3 92 19 174/94 (120) 96 04/12/17 00:00 98.6 81 16 153/89 (110) 97 I/O 04/11/17 04/11/17 04/11/17 04/12/17 04/12/17 04/12/17 07:00 15:00 23:00 07:00 15:00 23:00 Intake Total 480 ml 480 ml 500 ml Output Total 0 ml Balance 480 ml 480 ml 500 ml Intake Oral 480 ml 480 ml 500 ml Output Urine Total 0 ml # Voids 1 3 # Bowel Movements 0 0 0 Objective Remarks GENERAL: This is a well-nourished, well-developed patient, in no apparent distress. CARDIOVASCULAR: Regular rate and rhythm without murmurs, gallops, or rubs. RESPIRATORY: Clear to auscultation. Breath sounds equal bilaterally. No wheezes , rales, or rhonchi. GASTROINTESTINAL: Abdomen soft, non-tender, nondistended. Normal active bowel sounds MUSCULOSKELETAL: Extremities without clubbing, cyanosis, or edema. NEURO: Alert & Oriented x4 to person, place, time, situation. Moves all ext x4 Procedures Left IJ central line 02/25/2017. A/P Problem List: (1) Diastolic CHF, acute ICD Code: I50.31 - Acute diastolic (congestive) heart failure (2) Hypoalbuminemia ICD Code: E88.09 - Other disorders of plasma-protein metabolism, not elsewhere classified (3) DM (diabetes mellitus) type I uncontrolled with renal manifestation ICD Code: E10.29 - Uncontrolled type 1 diabetes mellitus with renal manifestations; E10.65 - Type 1 diabetes mellitus with hyperglycemia Status: Chronic (4) Hypertension ICD Code: I10 - Hypertension Status: Acute (5) Hypernatremia ICD Code: E87.0 - Hyperosmolality and hypernatremia Assessment and Plan 04/12: Repeat WBC CBC in a.m. A/P: Nausea Recurrent C. difficile colitis UTI Bilateral lower extremity edema Nephrotic syndrome Protein malnutrition Diabetes mellitus History of lupus Anemia of chronic disease Hypertension Diastolic preserved EF CHF DVT prophylaxis Plan: Continue diuresis and carvedilol Check for C. difficile if diarrhea recur Accu-Chek and ISS Monitor CBC PT OT Lovenox for DVT prophylaxis Problem Qualifiers (1) DM (diabetes mellitus) type I uncontrolled with renal manifestation: (2) Hypertension: Qualified Codes: I10 - Essential (primary) hypertension Keshav Jenkins MD Apr 12, 2017 22:05
[2017-04-13] VITALS: BP 160/88; PULSE 92; RESP 16; TEMP 98.2; O2SAT 91
[2017-04-13] MEDS: ACETAMINOPHEN/HYDROcodone 325 MG/5 MG TAB PO PRN (01:41)
[2017-04-13] MEDS: PROMETHAZINE HCL 25 MG TAB PO PRN (03:20)
[2017-04-13 08:00] VITALS: BP 176/96; PULSE 104; RESP 16; TEMP 97.9; O2SAT 99
[2017-04-13] MEDS: levETIRAcetam 500 MG TAB PO SCH ×2 (09:00→21:35)
[2017-04-13] MEDS: INSULIN ASPART SUPPLEMENTAL SCALE SQ SCH ×4 (09:00→21:00)
[2017-04-13] MEDS: NIFEdipine 60 MG SUSTAINED RELEASE TAB PO SCH (09:00)
[2017-04-13] MEDS: SODIUM CHLORIDE 0.9% FLUSH 10 ML FLUSH IV FLUSH SCH ×2 (09:00→21:00)
[2017-04-13] MEDS: LOSARTAN 50 MG TAB PO SCH (09:00)
[2017-04-13] MEDS: FLUoxetine HCL 10 MG CAP PO SCH (09:00)
[2017-04-13] MEDS: predniSONE 10 MG TAB PO SCH (09:00)
[2017-04-13] MEDS: METOPROLOL TARTRATE 50 MG TAB PO SCH (09:01)
[2017-04-13] MEDS: LACTOBACILLUS ACIDOPHILUS TAB PO SCH ×3 (09:01→18:20)
[2017-04-13] MEDS: CHLOROTHIAZIDE 500 MG PO SCH (09:01)
[2017-04-13] MEDS: ATORVASTATIN 80 MG TAB PO SCH (09:01)
[2017-04-13] MEDS: CHOLECALCIFEROL (VIT D3) 5000 UNIT CAP PO SCH (09:01)
[2017-04-13] MEDS: METOCLOPRAMIDE HCL 10 MG TAB PO SCH ×4 (09:01→21:36)
[2017-04-13] MEDS: MEGESTROL ACETATE SUSP 400 MG/10 ML CUP PO SCH (09:01)
[2017-04-13] MEDS: MULTIVITAMIN TAB PO SCH (09:01)
[2017-04-13 12:00] VITALS: BP 139/91; PULSE 89; RESP 17; TEMP 98.5; O2SAT 99
[2017-04-13] MEDS: DRONABINOL 5 MG CAP PO SCH ×2 (12:26→16:45)
--- NOTE | 2017-04-13 15:54 | HHI.PR ---
Subjective Remarks As per RN report the patient's blood pressure has been elevated and blood sugars uncontrolled. The patient denies chest pain, shortness of breath, abdominal pain. The patient is afebrile. Patient complains however of nausea. Objective Vitals Vital Signs Date Time Temp Pulse Resp B/P (MAP) Pulse Ox O2 Delivery O2 Flow Rate FiO2 04/13/17 12:00 98.5 89 17 139/91 (107) 99 04/13/17 08:00 97.9 104 16 176/96 (122) 99 04/13/17 00:00 98.2 92 16 160/88 (112) 91 04/12/17 20:00 98.1 87 16 128/78 (95) 97 04/12/17 16:00 98.4 84 17 123/73 (90) 97 I/O 04/12/17 04/12/17 04/12/17 04/13/17 04/13/17 04/13/17 07:00 15:00 23:00 07:00 15:00 23:00 Intake Total 500 ml Balance 500 ml Intake Oral 500 ml # Voids 3 # Bowel Movements 0 Imaging Last Impressions Chest X-Ray 02/25/17 0000 Signed Impressions: Service Date/Time: Saturday, February 25, 2017 22:51 - CONCLUSION: 1. Left IJ central venous catheter projects over the central venous system. No pneumothorax. 2. Vascular congestion appears to have improved but there are still patchy areas of infiltrate predominantly in the right upper lung and left perihilar distribution. Genaro Key MD Lower Extremity Ultrasound 02/24/17 0000 Signed Impressions: Service Date/Time: February 11:34 - CONCLUSION: No evidence of deep venous thrombosis within the lower extremities. Villa Calderon MD Objective Remarks AAOx3 Clear lungs to auscultation BL Abdomen is soft, NT, ND no edema in lower extremities Procedures Left IJ central line 02/25/2017. Medications and IVs Current Medications Medications (Trade) Dose Ordered Sig/Marin Route Start Time Stop Time Status Last Admin (NS Flush) 2 ml UNSCH PRN IV FLUSH 02/14/17 19:45 04/06/17 13:35 (NS Flush) 2 ml BID IV FLUSH 02/14/17 21:00 04/10/17 21:03 (Tylenol) 650 mg Q4H PRN PO 02/14/17 19:45 (Lipitor) 80 mg DAILY PO 02/15/17 09:00 04/13/17 09:01 (Keppra) 500 mg BID PO 02/15/17 09:00 04/13/17 09:00 (D50w (Vial) Inj) 50 ml UNSCH PRN IV 02/14/17 21:45 03/04/17 08:09 (Glucagon Inj) 1 mg UNSCH PRN OTHER 02/14/17 21:45 (Vitamin D3) 5,000 units DAILY PO 02/22/17 09:00 04/13/17 09:01 (Marinol) 5 mg BID@16 PO 02/22/17 11:00 04/13/17 12:26 (Mag-Al Plus Susp Liq) 30 ml Q6H PRN PO 02/23/17 08:30 02/23/17 08:32 (Lactinex) 1 tab TID PO 02/23/17 13:00 04/13/17 12:27 (Lovenox Inj) 30 mg Q24H SQ 03/04/17 15:00 04/12/17 16:41 (Cozaar) 50 mg DAILY PO 03/06/17 09:00 04/13/17 09:00 (Eccles 5-325 Mg) 1 tab Q6H PRN PO 03/08/17 11:45 04/13/17 01:41 (Diuril) 500 mg DAILY PO 03/16/17 10:00 04/13/17 09:01 (NovoLOG SUPPLEMENTAL SCALE) 1 ACHS SLIDING SCALE SQ 03/17/17 21:00 04/13/17 12:32 (Procardia Xl) 60 mg DAILY PO 03/20/17 09:00 04/13/17 09:00 (PROzac) 10 mg DAILY PO 03/24/17 13:15 04/13/17 09:00 (Phenergan) 25 mg Q6H PRN PO 03/27/17 13:00 04/13/17 03:20 (Lopressor) 12.5 mg Q8HR PRN PO 03/27/17 13:00 04/08/17 12:41 (Pill Splitter) 1 ea UNSCH PRN OTHER 03/27/17 13:00 (Theragran) 1 tab DAILY PO 03/30/17 09:00 04/13/17 09:01 (Vasotec Inj) 2.5 mg Q6H PRN IV PUSH 03/31/17 10:45 04/05/17 12:31 (Apresoline) 10 mg Q6HR PRN PO 04/01/17 16:15 04/10/17 12:27 (Megace Liq) 400 mg DAILY PO 04/02/17 12:15 04/13/17 09:01 (Zofran Inj) 4 mg Q4H PRN IVP 04/05/17 10:00 04/06/17 13:34 (Heparin Central Flush) 100 units DAILY IV FLUSH 04/07/17 09:00 04/07/17 08:26 (Transderm-Scop 1.5 Mg Patch.72 Hr) 1 patch Q3D T-DERMAL 04/06/17 17:00 04/12/17 16:42 Miscellaneous Information 1 Q3D T-DERMAL 04/09/17 17:00 04/12/17 16:42 (Deltasone) 10 mg BID PO 04/07/17 21:00 04/13/17 09:00 (Reglan) 10 mg ACHS PO 04/08/17 17:00 04/13/17 12:26 (Catapres) 0.2 mg Q6H PRN PO 04/10/17 15:00 (Lopressor) 75 mg Q12HR PO 04/13/17 21:00 A/P Problem List: (1) Diastolic CHF, acute ICD Code: I50.31 - Acute diastolic (congestive) heart failure Status: Resolved (2) Hypoalbuminemia ICD Code: E88.09 - Other disorders of plasma-protein metabolism, not elsewhere classified (3) DM (diabetes mellitus) type I uncontrolled with renal manifestation ICD Code: E10.29 - Uncontrolled type 1 diabetes mellitus with renal manifestations; E10.65 - Type 1 diabetes mellitus with hyperglycemia Status: Chronic (4) Hypertension ICD Code: I10 - Hypertension Status: Chronic (5) Hypernatremia ICD Code: E87.0 - Hyperosmolality and hypernatremia Status: Resolved Assessment and Plan 1. Nausea: Patient still with persistent nausea. Continue promethazine orally , Reglan and Zofran IV as needed for nausea. Patient currently is on prednisone given history of lupus and suspected lupus exacerbation. 2. Acute diastolic CHF: Hold diuretics given rising creatinine. 3. REGAN on CKD stage III. Creatinine trending down from 1.0. Today 1.6. I will hold diuretics given rising creatinine and continue to monitor BMP. Continue to monitor strict I's and O's and avoid nephrotoxins. 4. Recurrent C. difficile colitis: Diarrhea has resolved. Recheck C. difficile a diarrhea recurs. Patient with C. difficile negative PCR on . 5. Uncontrolled hypertension: Continue current antihypertensive medications but increase dose of metoprolol tartrate to 75 mg by mouth every 12 hours. 6. IV was monitored with hyperglycemia: Will resume long-acting insulin and increase the sliding scale dose to the high scale. 7. Anemia: Possibly anemia of chronic disease. Hemoglobin relatively stable and no signs of active bleeding. Discharge Planning DC to SNF. We'll discontinue once blood pressure and blood sugar control improves. Possible DC in a.m. If creatinine stable. Problem Qualifiers (1) DM (diabetes mellitus) type I uncontrolled with renal manifestation: (2) Hypertension: Qualified Codes: I10 - Essential (primary) hypertension Dave Ramsay MD Apr 13, 2017 15:54
[2017-04-13 16:00] VITALS: BP 115/57; PULSE 84; RESP 16; TEMP 98.9; O2SAT 94
[2017-04-13] MEDS: ENOXAPARIN SODIUM 30 MG/0.3 ML SYRINGE SQ SCH (16:46)
[2017-04-13 20:00] VITALS: BP 126/70; PULSE 85; RESP 17; TEMP 97.5; O2SAT 94
[2017-04-13] MEDS ORDERED: INSULIN GLARGINE 1,000 UNITS/10 ML VIAL SQ SCH (21:00)
[2017-04-13] MEDS: METOPROLOL TARTRATE 25 MG TAB PO SCH (21:35)
[2017-04-13] MEDS: cloNIDine HCL 0.1 MG TAB PO SCH (21:36)
[2017-04-14] VITALS: BP 161/83; PULSE 78; RESP 18; TEMP 97.9; O2SAT 94
[2017-04-14 04:00] VITALS: BP 183/102; PULSE 82; RESP 17; TEMP 98.4; O2SAT 96
[2017-04-14] MEDS: cloNIDine HCL 0.1 MG TAB PO SCH ×2 (05:23→15:59)
[2017-04-14 08:00] VITALS: BP 187/99; PULSE 77; RESP 16; TEMP 98.8; O2SAT 97
[2017-04-14] MEDS: INSULIN ASPART SUPPLEMENTAL SCALE SQ SCH ×3 (08:00→16:38)
[2017-04-14] MEDS: SODIUM CHLORIDE 0.9% FLUSH 10 ML FLUSH IV FLUSH SCH (09:00)
[2017-04-14] MEDS ORDERED: predniSONE 10 MG TAB PO SCH (09:00)
[2017-04-14] MEDS: FLUoxetine HCL 10 MG CAP PO SCH (09:26)
[2017-04-14] MEDS: NIFEdipine 60 MG SUSTAINED RELEASE TAB PO SCH (09:26)
[2017-04-14] MEDS: CHOLECALCIFEROL (VIT D3) 5000 UNIT CAP PO SCH (09:26)
[2017-04-14] MEDS: LACTOBACILLUS ACIDOPHILUS TAB PO SCH ×3 (09:26→16:38)
[2017-04-14] MEDS: MEGESTROL ACETATE SUSP 400 MG/10 ML CUP PO SCH (09:26)
[2017-04-14] MEDS: ATORVASTATIN 80 MG TAB PO SCH (09:26)
[2017-04-14] MEDS: METOPROLOL TARTRATE 25 MG TAB PO SCH (09:26)
[2017-04-14] MEDS: MULTIVITAMIN TAB PO SCH (09:27)
[2017-04-14] MEDS: LOSARTAN 50 MG TAB PO SCH (09:27)
[2017-04-14] MEDS: levETIRAcetam 500 MG TAB PO SCH (09:27)
[2017-04-14] MEDS: METOCLOPRAMIDE HCL 10 MG TAB PO SCH ×3 (09:27→15:51)
[2017-04-14 12:00] VITALS: BP 155/83; PULSE 80; RESP 17; TEMP 97.5; O2SAT 100
[2017-04-14 12:19] LABS: AUTOMATED NEUTROPHIL # 4.1 TH/MM3 (1.8-7.7); BASOPHIL # 0.1 TH/MM3 (0-0.2); BASOPHIL % 1.5 % (0.0-2.0); EOSINOPHIL # 0.2 TH/MM3 (0-0.4); EOSINOPHIL % 2.8 % (0.0-4.0); HEMATOCRIT 30.7 % (35.0-46.0); HEMO FLAGS DIFF FINAL; LYMPH % 33.4 % (9.0-44.0); LYMPHOCYTE # 2.5 TH/MM3 (1.0-4.8); MEAN CELL VOLUME 87.5 FL (80.0-100.0); MEAN CORPUSCULAR HEMOGLOBIN 28.8 PG (27.0-34.0); MEAN CORPUSCULAR HGB CONC 32.9 % (32.0-36.0); MONO % 6.6 % (0.0-8.0); NEUT % 55.7 % (16.0-70.0); PLATELET COUNT 165 TH/MM3 (150-450); RED BLOOD COUNT 3.51 MIL/MM3 (4.00-5.30); RED CELL DISTRIBUTION WIDTH 15.5 % (11.6-17.2); WHITE BLOOD COUNT 7.3 TH/MM3 (4.0-11.0)
[2017-04-14 12:24] LABS: ALT (GPT) 15 U/L (10-53); ANION GAP 9 MEQ/L (5-15); AST (GOT) 14 U/L (15-37); BICARBONATE 30.6 MEQ/L (21.0-32.0); BLOOD UREA NITROGEN 20 MG/DL (7-18); CHLORIDE 103 MEQ/L (98-107); GLOMERULAR FILTRATION RATE 48 ML/MIN (>89); MAGNESIUM 1.8 MG/DL (1.5-2.5); SODIUM (NA) 143 MEQ/L (136-145)
[2017-04-14 12:26] LABS: ALKALINE PHOSPHATASE 93 U/L (45-117); TOTAL BILIRUBIN ADULT 0.2 MG/DL (0.2-1.0)
[2017-04-14 12:29] LABS: POTASSIUM 3.4 MEQ/L (3.5-5.1)
[2017-04-14] MEDS: DRONABINOL 5 MG CAP PO SCH ×2 (12:40→15:51)
[2017-04-14] MEDS ORDERED: NIFE60TA8 PO (15:37)
[2017-04-14] MEDS ORDERED: COZA50TA PO (15:37)
--- NOTE | 2017-04-14 15:39 | HHI.DS ---
Discharge Summary Admission Date Feb 14, 2017 at 18:39 Discharge Date: Apr 14, 2017 Admitting Diagnosis Bilateral lower ext edema, noncompliance with medication (1) Diastolic CHF, acute ICD Code: I50.31 - Acute diastolic (congestive) heart failure Diagnosis: Principal Status: Resolved (2) Hypoalbuminemia ICD Code: E88.09 - Other disorders of plasma-protein metabolism, not elsewhere classified Diagnosis: Principal (3) DM (diabetes mellitus) type I uncontrolled with renal manifestation ICD Code: E10.29 - Uncontrolled type 1 diabetes mellitus with renal manifestations; E10.65 - Type 1 diabetes mellitus with hyperglycemia Diagnosis: Principal Status: Chronic (4) Hypertension ICD Code: I10 - Hypertension Diagnosis: Principal Status: Chronic (5) Hypernatremia ICD Code: E87.0 - Hyperosmolality and hypernatremia Diagnosis: Principal Status: Resolved Procedures Left IJ central line 02/25/2017. Brief History - From Admission Written by Elena Henry, acting as scribe for Dr. Jenkins on 02/14/17 at 20:22. Patient states she has "water on my legs" along with lower extremity weakness since her discharge from the hospital on Friday 02/09. She states she never picked up her prescriptions after being discharged from the hospital. She is alert and oriented but a difficult historian as she will not directly answer questions about her care at home and whether she has help at home. She does state that she is supposed to go to a rehabilitation facility. She had a lengthy admission from December 02, 2016 through February 09, 2017 for right tibia and fibula fracture. She was discharged home with home health. CBC/BMP: 04/14/17 1137 04/14/17 1132 Significant Findings Laboratory Tests Test 04/14/17 11:32 04/14/17 11:37 Blood Urea Nitrogen 20 MG/DL (7-18) Creatinine 1.42 MG/DL (0.50-1.00) Random Glucose 155 MG/DL (74-106) Total Protein 6.2 GM/DL (6.4-8.2) Albumin 2.4 GM/DL (3.4-5.0) Calcium Level 8.3 MG/DL (8.5-10.1) Aspartate Amino Transf (AST/SGOT) 14 U/L (15-37) Potassium Level 3.4 MEQ/L (3.5-5.1) Estimat Glomerular Filtration Rate 48 ML/MIN (>89) Red Blood Count 3.51 MIL/MM3 (4.00-5.30) Hemoglobin 10.1 GM/DL (11.6-15.3) Hematocrit 30.7 % (35.0-46.0) Imaging Last Impressions Chest X-Ray 02/25/17 0000 Signed Impressions: Service Date/Time: Saturday, February 25, 2017 22:51 - CONCLUSION: 1. Left IJ central venous catheter projects over the central venous system. No pneumothorax. 2. Vascular congestion appears to have improved but there are still patchy areas of infiltrate predominantly in the right upper lung and left perihilar distribution. Genaro Key MD Lower Extremity Ultrasound 02/24/17 0000 Signed Impressions: Service Date/Time: February 11:34 - CONCLUSION: No evidence of deep venous thrombosis within the lower extremities. Villa Calderon MD PE at Discharge AAOx3 Clear lungs to auscultation BL Abdomen is soft, NT, ND no edema in lower extremities Pt Condition on Discharge: Stable Discharge Disposition: Discharge to SNF Discharge Time: > 30 minutes Discharge Instructions DIET: Follow Instructions for: Diabetic Diet Additional Diet Instructions: FLUID RESTRIC 1500ML. LOW sodium diet. Fluid Restrictions: 1500ml Activities you can perform: Weight Bearing as Cezar New Medications: Losartan (Cozaar) 50 Mg Tab 50 MG PO DAILY for Blood Pressure Management, #31 TAB Nifedipine ER 24 HR (Nifedipine ER 24 HR) 60 Mg Tab 60 MG PO DAILY for Blood Pressure Management, #31 TAB Changed Medications: Insulin Glargine Inj (Lantus Inj) 1,000 Unit/10 Ml Vial 15 UNITS SQ HS for Blood Sugar Management, #1 VIAL 0 Refills (Changed from: 10 UNITS) Continued Medications: Amlodipine (Norvasc) 10 Mg Tab 10 MG PO DAILY for Blood Pressure Management for 30 Days, #30 TAB Atorvastatin (Atorvastatin) 80 Mg Tab 80 MG PO DAILY for Cholesterol Management, #30 TAB 0 Refills Bedside Commode (Bedside Commode) 1 Mis Mis EA EXTERNAL DIRECTED, #1 Bumetanide (Bumetanide) 1 Mg Tab 1 MG PO DAILY, #30 TAB 0 Refills Clonidine (Catapres) 0.1 Mg Tab 0.1 MG PO Q8HR for Blood Pressure Management, #90 TAB Enoxaparin Inj (Lovenox Inj) 30 Mg/0.3 Ml Syr 30 MG SQ Q24H for Prevent Blood Clot, #14 INJECTION Fluoxetine (Fluoxetine) 10 Mg Tab 10 MG PO DAILY, #30 TAB 0 Refills Hydralazine HCl (Hydralazine HCl) 50 Mg Tablet 50 MG PO Q8HR for HYPERTENSION for 30 Days, #90 TAB 0 Refills Insulin Aspart Inj (Novolog Inj) 1,000 Unit/10 Ml Vial Unknown Dose SQ ACHS for Blood Sugar Management, #10 ML 0 Refills Max dose at bedtime ( ) units; sugars less than 70,(0) units; sugars 150-199,(2) units; sugars 200-249,(4) units; sugars 250-299,(7) units; sugars 300-349,(10) units; sugars greater than 349,(12)units Lactobacillus Acidophilus (Lactobacillus Acidophilus) 1 Tab Tab 1 TAB PO TIDAC for Nutritional Supplement, #30 TAB 0 Refills Lactobacillus Acidophilus (Acidophilus/l-Sporogenes) 35 Million Cell-25 Million Cell Tab 1 TAB PO TID for C Diff for 30 Days, #90 TAB Levetiracetam (Levetiracetam) 500 Mg Tab 500 MG PO BID for Control Seizures, #60 TAB 0 Refills Oxycodone-Acetaminophen (Percocet) 5-325 mg Tab 1 TAB PO Q4H PRN for PAIN, #60 TAB 0 Refills Oxygen (O2) (Oxygen (O2)) Device LITER DESTINI.CANULA CONTINUOUS for Prevent Hypoxemia, #3 Oxygen Concentrator Portable Gaseous 2 L/min via Nasal Canula Continuous For 99 months Prednisone (Prednisone) 10 Mg Tab 10 MG PO BID for ALVEOLITIS, #42 TAB 0 Refills Walker/Adult/Folding (Walker/Adult/Folding) 1 Mis Mis EA .ROUTE DIRECTED, #1 0 Refills Wheelchair (Wheelchair) 1 Mis Mis EA .ROUTE DIRECTED for Community ambulation, #1 0 Refills Discontinued Medications: Amlodipine (Norvasc) 5 Mg Tab 5 MG PO DAILY for Blood Pressure Management, #30 TAB Dave Ramsay MD Apr 14, 2017 15:39
[2017-04-14] MEDS ORDERED: POTASSIUM CHLORIDE 20 MEQ CONTROLLED RELEASE TAB PO ONE (15:45)
[2017-04-14] MEDS: ENOXAPARIN SODIUM 30 MG/0.3 ML SYRINGE SQ SCH (15:50)
[2017-04-14 16:00] VITALS: BP 114/76; PULSE 80; RESP 18; TEMP 98.2; O2SAT 99
== END 2017-04-14 17:15 | DRG 291 ==
LOC: NEPC 16:56 → OBSVTOIN 18:39 → NEDA 18:39 → INTOOBSV 18:40 → UNDOADMOB 18:40 → NEDA 18:40 → HOCB 20:58 → NEDA 20:58 → INTOOBSV 02-17 10:16 → OBSVTOIN 02-17 10:16 → N03A 02-25 19:25 → N07A 02-26 21:42
PROVIDERS: ADMIT Hospitalist; ATTEND Hospitalist
PROC: 0T9B70Z Drainage of Bladder with Drainage Device, Via Natural or Artificial Opening (ICD-10-PCS; principal; 2017-02-14)
PROC: 30233N1 Transfusion of Nonautologous Red Blood Cells into Peripheral Vein, Percutaneous Approach (ICD-10-PCS; 2017-02-25)
PROC: 05HN33Z Insertion of Infusion Device into Left Internal Jugular Vein, Percutaneous Approach (ICD-10-PCS; 2017-02-25)
DX: I13.0 Hypertensive heart and chronic kidney disease with heart failure and stage 1 through stage 4 chronic kidney disease, or unspecified chronic kidney disease (principal); I50.33 Acute on chronic diastolic (congestive) heart failure; E43 Unspecified severe protein-calorie malnutrition; E87.0 Hyperosmolality and hypernatremia; D69.6 Thrombocytopenia, unspecified; E10.22 Type 1 diabetes mellitus with diabetic chronic kidney disease; E10.43 Type 1 diabetes mellitus with diabetic autonomic (poly)neuropathy; A04.71 Enterocolitis due to Clostridium difficile, recurrent; N17.9 Acute kidney failure, unspecified; I95.9 Hypotension, unspecified; K31.84 Gastroparesis; N18.3 Chronic kidney disease, stage 3 (moderate); N04.9 Nephrotic syndrome with unspecified morphologic changes; I69.351 Hemiplegia and hemiparesis following cerebral infarction affecting right dominant side; F33.1 Major depressive disorder, recurrent, moderate; M32.9 Systemic lupus erythematosus, unspecified; M19.90 Unspecified osteoarthritis, unspecified site; Z87.442 Personal history of urinary calculi; Z79.4 Long term (current) use of insulin; E78.00 Pure hypercholesterolemia, unspecified; J45.909 Unspecified asthma, uncomplicated; Z86.14 Personal history of Methicillin resistant Staphylococcus aureus infection; K44.9 Diaphragmatic hernia without obstruction or gangrene; Z91.14 Patient's other noncompliance with medication regimen; E10.649 Type 1 diabetes mellitus with hypoglycemia without coma; E10.65 Type 1 diabetes mellitus with hyperglycemia; D63.1 Anemia in chronic kidney disease; G40.909 Epilepsy, unspecified, not intractable, without status epilepticus; K21.9 Gastro-esophageal reflux disease without esophagitis; S82.409D Unspecified fracture of shaft of unspecified fibula, subsequent encounter for closed fracture with routine healing; X58.XXXD Exposure to other specified factors, subsequent encounter; Z91.19 Patient's noncompliance with other medical treatment and regimen; F43.20 Adjustment disorder, unspecified; E55.9 Vitamin D deficiency, unspecified; Z83.3 Family history of diabetes mellitus; G89.4 Chronic pain syndrome; E78.5 Hyperlipidemia, unspecified; N30.90 Cystitis, unspecified without hematuria; T40.601A Poisoning by unspecified narcotics, accidental (unintentional), initial encounter; Y92.239 Unspecified place in hospital as the place of occurrence of the external cause; T38.0X5A Adverse effect of glucocorticoids and synthetic analogues, initial encounter; E87.5 Hyperkalemia; Z53.20 Procedure and treatment not carried out because of patient's decision for unspecified reasons; Z91.81 History of falling
CPT/HCPCS: 36430; 36556; 36600; 51702; 71010; 76937; 80048; 80053; 80069; 80076; 81001; 82140; 82150; 82272; 82805; 82948; 83605; 83690; 83735; 83880; 84100; 84134; 84157; 84443; 85007; 85025; 85027; 85044; 85060; 85384; 85610; 85652; 85730; 86850; 86900; 86901; 86920; 87086; 87205; 87328; 87329; 87493; 87506; 93970; J1170; G8987-GP; G8988-GP; J0696; J1205; J1642; J1650; J1815; J1940; J2310; J2405; J2550; J2920; J2997; J3480; J7030; J7040; J7060; J7070; J7512; P9016; P9047; Q0169